=== PATIENT | male | born 1970 ===

== ENCOUNTER 2020-05-17 13:11 | Emergency (ER) | payer MEDICAID, SELFPAY ==
--- NOTE | 2020-05-17 13:23 | ED.WEAKNESS ---
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 Mode of arrival: ambulatory Limitations: no limitations History of Present Illness HPI Narrative: patient with recent chemo completed on 05/06 for mantle cell lymphoma here with overall malaise, subjective fevers/chills, body aches states he was tested on Tuesday and COVID test is negative, no known COVID + contacts MD Complaint: generalized weakness Onset (ago): day(s) (5) Duration: constant Location: generalized Migration: none Severity: moderate Relieving factors: none Exacerbating factors: none Associated symptoms: fever/chills, loss of appetite, myalgias and other (mild dry cough) Related Data Allergies Allergy/AdvReac Type Severity Reaction Status Date / Time cyclobenzaprine [Flexeril] Allergy Unknown Verified 03/22/13 00:00 No Known Allergies Allergy Unverified 05/01/20 18:23 Review of Systems Review of Systems: Constitutional : positive Fever, positive Chills, positive fatigue, positive Malaise ENT/Mouth : no sore throat, no runny nose Eyes: No Discharge, no irritation Cardiovascular : No Chest Pain, No SOB Respiratory : mild dry Cough, No Sputum Gastrointestinal : No Nausea, No Vomiting, No Diarrhea, no abdominal pain Genitourinary : No Dysuria, No Urinary Frequency Musculoskeletal : positive Myalgia Skin : No rash, no new lesions Neuro : No Headache, no numbness, overall feels weak PMFSH Past Medical History Attestation statement: The following information was validated with the patient. Medical History (Updated 05/17/20 @ 15:55 by Bonny Love DO) Appendicitis Chronic pain Kidney stone Mantle cell lymphoma Surgical History (Updated 05/17/20 @ 13:50 by Bonny Love DO) History of appendectomy Social History Social History (Updated 05/17/20 @ 13:25 by Bonny Love DO) Alcohol intake: never Smoking Status: Never smoker Use of substances other than those prescribed or required for medical reasons: No Substance Use Type: Marijuana Advance Directives: No Advance Directives Information Provided: No Physical Exam Vital Signs and I&O and Narrative: Vital Signs and I&O: Vital Signs Temp 98.3 F 05/17/20 13:44 Pulse 100 05/17/20 13:44 Resp 16 05/17/20 13:44 BP 119/76 05/17/20 13:44 Pulse Ox 99 05/17/20 13:44 Intake & Output 05/16/20 05/17/20 05/17/20 18:59 06:59 18:59 Intake Total 500 / 500 Balance 500 / 500 Weight 99.798 kg Intake: Intake, IV Amoun t 500 / 500 0.9 % Sodium C hloride 500 ml @ 500 / 500 1000 mls/hr IV .Q30M RACHELL Rx#: [id number] Body Mass Index 29.0 Appearance: Alert. Oriented X3. No acute distress. Eyes: Pupils equal, round and reactive to light. ENT: Pharynx normal. MMM Neck: Normal inspection. Neck supple. CVS: Normal heart rate and rhythm. Pulses normal. Respiratory: No respiratory distress. Breath sounds normal. Abdomen: Soft and nontender. Skin: Skin warm and dry. Normal skin color. Normal skin turgor. R PICC line site c/d/i Extremities: No lower extremity edema. No lower extremity edema. Neuro: Oriented X 3. No motor deficit. No sensory deficit. Course Course Hospital Course: lipase is elevated but has no abdominal pain n/v/d had CT scan in November pancreas was unremarkable Reevaluation(s) Reevaluation #1: ANC was 800 on 05/14 now 1500 so vast improvement he c/o fever no documented here orally 98.3 Time: 15:18 Reevaluation #2: message sent to Dr. Ruiz with labs, presentation, WBC and ANC Reevaluation #3: Dr. Ruiz aware of WBC count, ANC, lactic acidosis, negative CT chest if stable on recheck send home with katya [facility] Narrative Medical decision making narrative: patient with recent chemo now having overall malaise subjective fevers and chills not feeling well has no localizing signs of infection, just had negative COVID test, at this time will obtain labs, CT chest for pneumonia (dry cough), cultures, lactic acid, dispo per results and findings Lab Data Result diagrams: 05/17/20 14:24 05/17/20 14:24 Labs: Lab Results 05/17/20 05/17/20 05/17/20 Range/Units 14:24 14:24 14:24 WBC 2.4 L (4.8-10.8) X10*3/uL RBC 3.11 L (4.60-5.80) X10*6/uL Hgb 10.2 L (14.0-18.0) g/dl Hct 29.1 L (42-52) % MCV 93.6 (80-98) fL MCH 32.8 (27.0-33.0) pg MCHC 35.1 (31.0-36.0) g/dl RDW 13.4 (11.0-16.0) % Plt Count 78 L (160-400) X10*3/uL MPV 11.3 (9.4-12.4) fL Immature Gran % (Auto) 0.4 (0.0-0.4) % Neut % (Auto) 65.1 (45-73) % Lymph % (Auto) 15.3 L (20-40) % [place] % (Auto) 17.9 H (2-11) % Eos % (Auto) 0.9 (0-4) % Baso % (Auto) 0.4 (0-2) % Neut # (Auto) 1.5 L (2.0-8.3) X10*3/uL Lymph # (Auto) 0.4 L (1.2-4.9) X10*3/uL [place] # (Auto) 0.4 (0.1-1.2) X10*3/uL Eos # (Auto) 0.0 (0.0-0.4) X10*3/uL Baso # (Auto) 0.0 (0.0-0.2) X10*3/uL Abs Immat Gran (auto) 0.01 (0.00-0.03) X10*3/uL Absolute Nucleated RBC 0.000 (0.0-0.012) X10*3/uL Nucleated RBC % (auto) 0.0 (0.0-0.2) /100WBC Smear Tech's Comments VERIFIED Hold Blue Top SEE NOTE Sodium 135 (135-145) mmol/L Potassium 3.7 (3.3-5.1) mmol/l Chloride 98 (96-108) mmol/L Carbon Dioxide 28 (22-29) mmol/L Anion Gap 13 (12-20) BUN 14 (9-16) mg/dL Creatinine 1.70 H (0.5-1.4) mg/dL Estim Creat Clear Calc 66.7 Estimated GFR 43 Random Glucose 140 H (60-115) mg/dL Lactic Acid (0.5-2.0) mmol/L Calcium 8.4 (8.4-10.2) mg/dL Magnesium 2.0 (1.6-2.6) mg/dL Total Bilirubin 0.5 (0.0-1.0) mg/dL Direct Bilirubin 0.2 (0.0-0.5) mg/dL AST 28 (5-37) U/L ALT 33 (0-40) U/L Alkaline Phosphatase 80 (39-117) U/L Total Protein 6.2 L (6.5-8.0) g/dL Albumin 3.9 (3.5-5.0) g/dL Lipase 110 H (8-78) U/L Urine Color Urine Appearance Urine pH (5.0-8.0) Ur Specific [place] (1.005-1.025) Urine Protein (NEG-TRACE) MG/DL Urine Glucose (UA) (NEG) MG/DL Urine Ketones (NEG) MG/DL Urine Blood (NEG) Urine Nitrite (NEG) Ur Leukocyte Esterase (NEG) 05/17/20 05/17/20 Range/Units 14:24 15:19 WBC (4.8-10.8) X10*3/uL RBC (4.60-5.80) X10*6/uL Hgb (14.0-18.0) g/dl Hct (42-52) % MCV (80-98) fL MCH (27.0-33.0) pg MCHC (31.0-36.0) g/dl RDW (11.0-16.0) % Plt Count (160-400) X10*3/uL MPV (9.4-12.4) fL Immature Gran % (Auto) (0.0-0.4) % Neut % (Auto) (45-73) % Lymph % (Auto) (20-40) % [place] % (Auto) (2-11) % Eos % (Auto) (0-4) % Baso % (Auto) (0-2) % Neut # (Auto) (2.0-8.3) X10*3/uL Lymph # (Auto) (1.2-4.9) X10*3/uL [place] # (Auto) (0.1-1.2) X10*3/uL Eos # (Auto) (0.0-0.4) X10*3/uL Baso # (Auto) (0.0-0.2) X10*3/uL Abs Immat Gran (auto) (0.00-0.03) X10*3/uL Absolute Nucleated RBC (0.0-0.012) X10*3/uL Nucleated RBC % (auto) (0.0-0.2) /100WBC Smear Tech's Comments Hold Blue Top Sodium (135-145) mmol/L Potassium (3.3-5.1) mmol/l Chloride (96-108) mmol/L Carbon Dioxide (22-29) mmol/L Anion Gap (12-20) BUN (9-16) mg/dL Creatinine (0.5-1.4) mg/dL Estim Creat Clear Calc Estimated GFR Random Glucose (60-115) mg/dL Lactic Acid 2.3 H* (0.5-2.0) mmol/L Calcium (8.4-10.2) mg/dL Magnesium (1.6-2.6) mg/dL Total Bilirubin (0.0-1.0) mg/dL Direct Bilirubin (0.0-0.5) mg/dL AST (5-37) U/L ALT (0-40) U/L Alkaline Phosphatase (39-117) U/L Total Protein (6.5-8.0) g/dL Albumin (3.5-5.0) g/dL Lipase (8-78) U/L Urine Color YELLOW Urine Appearance CLEAR Urine pH 5.5 (5.0-8.0) Ur Specific [place] 1.025 (1.005-1.025) Urine Protein 2+ H (NEG-TRACE) MG/DL Urine Glucose (UA) NEG (NEG) MG/DL Urine Ketones NEG (NEG) MG/DL Urine Blood 3+ H (NEG) Urine Nitrite NEG (NEG) Ur Leukocyte Esterase NEG (NEG) Discharge Plan Discharge Clinical Impression: Acidosis, lactic, Acute viral syndrome
--- NOTE | 2020-05-17 13:34 | CT_ITS ---
EXAMINATION: CT CHEST WITHOUT CONTRAST CLINICAL INFORMATION: Cough and fever. COMPARISON: None TECHNIQUE: Multidetector volumetric CT imaging of the chest was done. Axial MIP volume rendering provided. Sagittal and coronal reformatted images were obtained. This CT examination was performed using dose optimization techniques as appropriate, variously including the following: *Automated exposure control *Adjustment of mA and/or kV according to patient size (this includes techniques or standardized protocols for targeted exams where dose is matched to indication/reason for exam; i.e. extremities or head) *Use of iterative reconstruction technique DLP: 273 mGy-cm FINDINGS: LUNGS: There is a calcified granuloma in the right upper lobe as well as in the right lower lobe in the costophrenic sulcus posteriorly. The lungs are otherwise clear with no evidence of inflammation or nodules. MEDIASTINUM: The thyroid demonstrates increased attenuation on noncontrast CT, measuring about 140 Hounsfield units. The mediastinum is otherwise normal. PLEURA: There is no pleural effusion. No pleural mass or thickening. AXILLA: No lymphadenopathy. UPPER ABDOMEN: Unremarkable. OSSEOUS STRUCTURES: Unremarkable. IMPRESSION: Unremarkable examination. A cause for the patient's cough and fevers has not been found.
[2020-05-17 13:44] VITALS: BP 119/76; PULSE 100; RESP 16; TEMP 36.8; O2SAT 99; BMI 29.0
--- NOTE | 2020-05-17 13:53 | PC.NURSE ---
seen by provider, plan for blood work and imaging. pt ambulatory to ct scan w steady gait. pt has had recent negative covid, but sts continuing increase in weakness along with general malaise over the past few weeks. afebrile. wctm.
[2020-05-17 14:36] LABS: Basophils Percent Auto 0.4 % (0-2); Eosinophils Percent Auto 0.9 % (0-4); Hematocrit 29.1 % (42-52); Hemoglobin 10.2 g/dl (14.0-18.0); Imm Gran Abs Auto 0.01 X10*3/uL (0.00-0.03); Imm Gran Pct Auto 0.4 % (0.0-0.4); Lymphocytes Absolute Auto 0.4 X10*3/uL (1.2-4.9); Lymphocytes Percent Auto 15.3 % (20-40); MANUAL DIFF FLAG SCAN; Mean Corpuscular HGB Conc 35.1 g/dl (31.0-36.0); Mean Corpuscular Hemoglobin 32.8 pg (27.0-33.0); Mean Corpuscular Volume 93.6 fL (80-98); Mean Platelet Volume 11.3 fL (9.4-12.4); Monocytes Absolute Auto 0.4 X10*3/uL (0.1-1.2); Monocytes Percent Auto 17.9 % (2-11); Neutrophils Absolute Auto 1.5 X10*3/uL (2.0-8.3); Neutrophils Percent Auto 65.1 % (45-73); Red Blood Count 3.11 X10*6/uL (4.60-5.80); Red Cell Distribution Width 13.4 % (11.0-16.0); SCAN SMEAR FLAG 1
[2020-05-17 14:45] LABS: White Blood Count 2.4 X10*3/uL (4.8-10.8)
[2020-05-17] MEDS: Acetaminophen 325 MG TABLET 650 MG PO (14:50)
[2020-05-17] MEDS: 0.9 % Sodium Chloride 500 ML 1000 ML IV (14:50)
[2020-05-17 14:59] LABS: Platelet Count 78 X10*3/uL (160-400)
[2020-05-17 15:00] LABS: Lactic Acid 2.3 mmol/L (0.5-2.0); SLIDE REVIEW VERIFIED
[2020-05-17 15:22] LABS: Alanine Aminotransferase 33 U/L (0-40); Albumin Level 3.9 g/dL (3.5-5.0); Alkaline Phosphatase 80 U/L (39-117); Anion Gap 13 (12-20); Aspartate Amino Transferase 28 U/L (5-37); Bilirubin Direct 0.2 mg/dL (0.0-0.5); Bilirubin Total 0.5 mg/dL (0.0-1.0); Blood Urea Nitrogen 14 mg/dL (9-16); Calcium 8.4 mg/dL (8.4-10.2); Carbon Dioxide 28 mmol/L (22-29); Chloride 98 mmol/L (96-108); Creatinine Clr Calc Pharmacy 66.7; Estimated Glomerular Filt Rate 43; Glucose Random 140 mg/dL (60-115); Lipase 110 U/L (8-78); Potassium 3.7 mmol/l (3.3-5.1); Sodium 135 mmol/L (135-145); Total Protein 6.2 g/dL (6.5-8.0)
[2020-05-17 15:43] LABS: Glucose Urine UA NEG (NEG); Leukocyte Esterase Urine NEG (NEG); Nitrite Urine NEG (NEG); PH 5.5 (5.0-8.0); Specific Gravity - Urine 1.025 (1.005-1.025); Urine Blood 3+ (NEG); Urine Ketones NEG (NEG); Urine Protein 2+ MG/DL (NEG-TRACE)
[2020-05-17 15:46] LABS: Appearance Urine CLEAR; Color Urine YELLOW
[2020-05-17 15:57] LABS: WBC Urine 0 /HPF (0-4)
[2020-05-17 15:58] LABS: Hyaline Casts Urine 0-2 /LPF
[2020-05-17 16:31] LABS: Reflex Lactate? Lactic Acid Added
[2020-05-17 16:45] VITALS: BP 111/73; PULSE 93; RESP 18; TEMP 37.1; O2SAT 100
--- NOTE | 2021-11-04 14:34 | MHC.HEMONCSW ---
LATE ENTRY.....PT PERMANENTLY RESIDING IN A [facility].
== END 2020-05-17 18:11 | disposition home or self-care (01) ==
PROVIDERS: Emergency Medicine; Emergency Provider Emergency Medicine; PCP Internal Medicine
DX: E87.2 Acidosis (principal); B34.9 Viral infection, unspecified; Z20.828 Contact with and (suspected) exposure to other viral communicable diseases; C83.10 Mantle cell lymphoma, unspecified site
CPT/HCPCS: 36415; 71250; 80048; 80076; 81001; 83605; 83690; 83735; 85025; 85060; 87040; 87635; 99284

== ENCOUNTER → 2020-07-09 08:48 | Outpatient (BNVA) | payer MEDICAID, SELFPAY | PROVIDERS: PCP Internal Medicine; Referring Provider Internal Medicine; Visit Provider Physician Assistant | DX: Z76.89 Persons encountering health services in other specified circumstances (principal) ==

== ENCOUNTER 2020-07-16 13:41 | Outpatient (REF) | payer MEDICAID, SELFPAY | END 2020-07-16 13:42 | disposition home or self-care (01) | LOC: HO.LAB 13:41 | PROVIDERS: Visit Provider Internal Medicine | DX: Z20.828 Contact with and (suspected) exposure to other viral communicable diseases (principal) | CPT/HCPCS: C9803; U0003 ==

== ENCOUNTER → 2020-09-05 10:20 | Outpatient (BNVA) | payer MEDICAID, SELFPAY | PROVIDERS: Visit Provider Internal Medicine Gastroenterology ==

== ENCOUNTER 2020-09-22 13:12 | Inpatient (IN) | payer MEDICAID, SELFPAY ==
--- NOTE | ~2020-09-22 | CT_ITS ---
EXAMINATION: CT HEAD WITHOUT CONTRAST CLINICAL INFORMATION: Altered mental status. History of mantle cell lymphoma. COMPARISON: None. TECHNIQUE: Contiguous helical images of the brain were obtained without IV contrast. Multiplanar reconstructions were performed. DLP: 684 mGy-cm. FINDINGS: There are no pathologic extra-axial fluid collections. The lateral and fourth ventricles are nondilated and concordant with the appearance of the sulci. There is subtle suggestion of mild narrowing to the third ventricle. Within the left frontal lobe best demonstrated on image 57/96, there is an approximately 2 cm area of decreased attenuation within the subcortical region with faint peripheral high attenuation. There is no definite adjacent sulcal effacement. Within the posterior right temporal lobe within the posterior middle cranial fossa on the right, there is an area of subcortical low-attenuation measuring approximately 11 mm. There is extensive left greater than right bilateral basal ganglial low-attenuation. On the left, there is some extension into the lazaro radiata. There is suggestion of some expansion about the basal ganglial low-attenuation. There is a small focus of high attenuation adjacent to the cortex within the posterior left parieto-occipital region best demonstrated on image 54/98. There is also a subtle focus of high attenuation within the subcortical region within the posterior right parieto-occipital area. There is an area of low-attenuation within the right cerebellar hemisphere on image 76/98 measuring approximately 2.1 cm. There is neither mass nor mass effect. There is no shift of midline structures. The paranasal sinuses and mastoid air cells are clear. There are no osseous lesions. CT/CT head/brain wo con IMPRESSION: Numerous bilateral subcortical areas of low-attenuation, particularly within the left frontal, posterior right parietal regions as well as the right cerebellar hemisphere. There is no definite mass effect related to the aforementioned areas of low-attenuation. In addition, there is extensive bilateral basal ganglial low-attenuation, left greater than right, extending into the lazaro radiata with some suggestion of possible edema about this area of low-attenuation with possible mass effect upon the third ventricle. 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 However, that any one of the aforementioned lesions could correspond to an infarction cannot be excluded. As such, recommendation is for correlation with MRI as it is possible. The aforementioned was discussed at length with Dr. Pnieda at 0050 hours. Automated exposure control (Care Dose) Adjustment of the mA and/or kv according to patient size (this includes techniques or standardized protocols for targeted exams where dose is matched to indication / reason for exam; i.e. extremities or head).
[2020-09-22 15:41] VITALS: BP 100/62; PULSE 75; RESP 18; TEMP 37.1; O2SAT 98; BMI 25.7
[2020-09-22 18:46] LABS: Basophils Percent Auto 0.4 % (0-2); Eosinophils Absolute Auto 0.2 X10*3/uL (0.0-0.4); Eosinophils Percent Auto 8.4 % (0-4); Hematocrit 31.8 % (42-52); Hemoglobin 10.8 g/dl (14.0-18.0); Imm Gran Abs Auto 0.01 X10*3/uL (0.00-0.03); Imm Gran Pct Auto 0.4 % (0.0-0.4); Lymphocytes Absolute Auto 0.8 X10*3/uL (1.2-4.9); Lymphocytes Percent Auto 35.6 % (20-40); MANUAL DIFF FLAG SCAN; Mean Corpuscular Volume 97.2 fL (80-98); Monocytes Absolute Auto 0.6 X10*3/uL (0.1-1.2); Monocytes Percent Auto 27.1 % (2-11); Neutrophils Absolute Auto 0.6 X10*3/uL (2.0-8.3); Neutrophils Percent Auto 28.1 % (45-73); Platelet Count 107 X10*3/uL (160-400); Red Blood Count 3.27 X10*6/uL (4.60-5.80); Red Cell Distribution Width 12.4 % (11.0-16.0); SCAN SMEAR FLAG 1
[2020-09-22 18:47] LABS: White Blood Count 2.3 X10*3/uL (4.8-10.8)
[2020-09-22 19:04] LABS: SLIDE REVIEW VERIFIED
[2020-09-22 19:07] LABS: Ethanol < 10 mg/dL
[2020-09-22 19:09] LABS: Anion Gap 12 (12-20); Blood Urea Nitrogen 13 mg/dL (9-16); Calcium 8.6 mg/dL (8.4-10.2); Carbon Dioxide 31 mmol/L (22-29); Chloride 102 mmol/L (96-108); Estimated Glomerular Filt Rate > 60; Glucose Random 107 mg/dL (60-115); Potassium 3.9 mmol/L (3.3-5.1); Sodium 141 mmol/L (135-145)
[2020-09-22 21:32] VITALS: BP 107/66; PULSE 86; RESP 18; TEMP 36.7; O2SAT 98
--- NOTE | 2020-09-22 21:35 | PC.NURSE ---
no change in assessment. is steady on feet. skin slightly juandice but no abd pain or distention. family states he's declining and barely talking. get confused easily. calm.
[2020-09-22 22:00] VITALS: BP 107/66; PULSE 86; RESP 18; TEMP 36.7; O2SAT 98
[2020-09-22 22:29] LABS: Alanine Aminotransferase 34 U/L (0-40); Albumin Level 4.2 g/dL (3.5-5.0); Alkaline Phosphatase 115 U/L (39-117); Aspartate Amino Transferase 31 U/L (5-37); Bilirubin Direct 0.2 mg/dL (0.0-0.5); Bilirubin Total 0.5 mg/dL (0.0-1.0); Total Protein 6.3 g/dL (6.5-8.0)
[2020-09-23] VITALS: BP 107/66; PULSE 86; RESP 18; TEMP 36.7; O2SAT 98
--- NOTE | 2020-09-23 00:13 | ED.AMS ---
HPI - Altered Mental Status General Chief Complaint: Altered Mental Status Stated Complaint: confused Time Seen by Provider: 09/22/20 23:26 Source: family Mode of arrival: wheelchair Limitations: altered mental status History of Present Illness HPI narrative: Patient is brought by friends to the emergency room. According to the friends, the patient has history stage IV mantle cell lymphoma. For the last 2 weeks, the patient has gradually been declining mentally. They have noticed that the patient is slower to answer, for the last week, the patient seemed very confused and has remained confused since then. The patient's friend states that they believed that he had an appointment today with hematology/oncology but they do not know if the appointment was here or in [facility], and they were told to come to the emergency room. The patient is unable to give any history, patient answers answer some yes or no questions, seems very confused, states he has been having a sore throat. The family friends report that the patient has been complaining of a sore throat for the last 4 weeks or longer. Patient states that he lives with his sister. The family's friend states that the patient's sister told the patient that he needs to find another place to live. They were concerned that the patient's sister is not taking good care of him. At this time, they are not sure who the healthcare proxy is, they believe it is the another sister that the patient has, but he does not live with her. Related Data Home Medications Medication Instructions Recorded Confirmed acyclovir 400 mg PO BID 05/20/20 07/09/20 ondansetron HCl 8 mg tablet 8 mg PO Q8H PRN 09/05/20 Allergies Allergy/AdvReac Type Severity Reaction Status Date / Time cyclobenzaprine [Flexeril] Allergy Unknown Palpitation Verified 09/22/20 15:41 s Review of Systems Review of Systems: Yes unobtainable due to endotracheal tube PMFSH Past Medical History Medical History Appendicitis Chronic pain Depression H/O: RCT (rotator cuff tear) Kidney stone Mantle cell lymphoma Rectal bleeding Surgical History History of appendectomy Family History Family History Mother COPD (chronic obstructive pulmonary disease) Sister Colon cancer Social History Social History Alcohol intake: unknown Smoking Status: Unknown if ever smoked Use of substances other than those prescribed or required for medical reasons: Unknown Substance Use Type: Marijuana Advance Directives: No Advance Directives Information Provided: Yes Current occupational status: unemployed Physical Exam Vital Signs: Vital Signs: Last Vital Signs Temp 98.1 F 09/23/20 00:00 Pulse 86 09/23/20 00:00 Resp 18 09/23/20 00:00 BP 107/66 09/23/20 00:00 Pulse Ox 98 09/23/20 00:00 Body Mass Index 25.7 Appearance: Alert. Oriented X1 to name No acute distress. Patient seems confused Eyes: Pupils equal, round and reactive to light. ENT: Pharynx normal. Neck: Normal inspection. Neck supple. Bilateral mandibular lymphadenopathy, No crepitus CVS: Normal heart rate and rhythm. Pulses normal. Normal S1 and S2 Respiratory: No respiratory distress. Breath sounds normal. No Wheezing. No rales Abdomen: Soft and nontender. No rigidity. No distention. good BS x4 Skin: Skin warm and dry. Normal skin color. Normal skin turgor. Extremities: No lower extremity edema. Neuro: Oriented X1. No motor deficit. Cranial nerves 2-12 grossly intact. Course Course Course Narrative: I discussed the CT findings with our radiologist Dr. Siegel. The family friend left a phone number of a sister, Jia Lorenzo ([phone]). I tried calling her to give her an update and trying to find out the patient's code status is, and further discussion on treatment. With no one answered the phone. Patient's mental status has remained constant for the last week, no acute changes per family friends. Patient will need an MRI in the morning. Seems that patient has INFORMATION TECHNOLOGY ARCHITECT lymphoma. There is possibility that he may have mass effect, we will go ahead and give him Decadron. I was able to get in touch with patient's sister Azra, confirms that the healthcare proxy of the patient is her , but is currently at work. At this time, she does not know the patient is resuscitation status, at this time I discussed with her that we will keep him as a full code. I discussed the CT scan with her. She was not aware the patient had lymphoma. She knew that the patient is being treated for something in [place] (per patient's friends and Dr. Ruiz's records in [facility]). I discussed the patient and CT scan findings with our hospitalist Dr. Lee, patient will need an MRI 1st thing in the morning. MDM - Altered Mental Status Lab Data Result diagrams: 09/22/20 18:18 09/22/20 18:18 Labs: Lab Results 09/22/20 09/22/20 09/22/20 Range/Units 18:18 18:18 18:18 WBC 2.3 L (4.8-10.8) X10*3/uL RBC 3.27 L (4.60-5.80) X10*6/uL Hgb 10.8 L (14.0-18.0) g/dl Hct 31.8 L (42-52) % MCV 97.2 (80-98) fL MCH 33.0 (27.0-33.0) pg MCHC 34.0 (31.0-36.0) g/dl RDW 12.4 (11.0-16.0) % Plt Count 107 L (160-400) X10*3/uL MPV 10.0 (9.4-12.4) fL Immature Gran % (Auto) 0.4 (0.0-0.4) % Neut % (Auto) 28.1 L (45-73) % Lymph % (Auto) 35.6 (20-40) % [place] % (Auto) 27.1 H (2-11) % Eos % (Auto) 8.4 H (0-4) % Baso % (Auto) 0.4 (0-2) % Lymph # (Auto) 0.8 L (1.2-4.9) X10*3/uL [place] # (Auto) 0.6 (0.1-1.2) X10*3/uL Eos # (Auto) 0.2 (0.0-0.4) X10*3/uL Baso # (Auto) 0.0 (0.0-0.2) X10*3/uL Abs Immat Gran (auto) 0.01 (0.00-0.03) X10*3/uL Absolute Neuts (auto) 0.6 L (2.0-8.3) X10*3/uL Absolute Nucleated RBC 0.000 (0.0-0.012) X10*3/uL Nucleated RBC % (auto) 0.0 (0.0-0.2) /100WBC Smear Tech's Comments VERIFIED Hold Blue Top SEE NOTE Sodium 141 (135-145) mmol/L Potassium 3.9 (3.3-5.1) mmol/L Chloride 102 (96-108) mmol/L Carbon Dioxide 31 H (22-29) mmol/L Anion Gap 12 (12-20) BUN 13 (9-16) mg/dL Creatinine 1.22 (0.5-1.4) mg/dL Estim Creat Clear Calc 87.0 Estimated GFR > 60 Random Glucose 107 (60-115) mg/dL Calcium 8.6 (8.4-10.2) mg/dL Total Bilirubin 0.5 (0.0-1.0) mg/dL Direct Bilirubin 0.2 (0.0-0.5) mg/dL AST 31 (5-37) U/L ALT 34 (0-40) U/L Alkaline Phosphatase 115 D (39-117) U/L Total Protein 6.3 L (6.5-8.0) g/dL Albumin 4.2 (3.5-5.0) g/dL Urine Color Urine Appearance Urine pH (5.0-8.0) Ur Specific [place] (1.005-1.025) Urine Protein (NEG-TRACE) MG/DL Urine Glucose (UA) (NEG) MG/DL Urine Ketones (NEG) MG/DL Urine Blood (NEG) Urine Nitrite (NEG) Ur Leukocyte Esterase (NEG) Urine RBC (0) /HPF Urine WBC (0-4) /HPF Ur Squamous Epith Cells /LPF Ur Renal Epithelial Cell /LPF Urine Bacteria /LPF Granular Casts /LPF Urine Mucus /LPF Urine Opiates Screen (Not Detect) Ur Barbiturates Screen (Not Detect) Ur Phencyclidine Scrn (Not Detect) Ur Amphetamines Screen (Not Detect) U Benzodiazepines Scrn (Not Detect) Urine Cocaine Screen (Not Detect) U Marijuana (THC) Screen (Not Detect) Ethyl Alcohol mg/dL COVID-19 (LAURY) (Negative) COVID-19 Clin Com 09/22/20 09/23/20 09/23/20 Range/Units 18:18 00:23 00:23 WBC (4.8-10.8) X10*3/uL RBC (4.60-5.80) X10*6/uL Hgb (14.0-18.0) g/dl Hct (42-52) % MCV (80-98) fL MCH (27.0-33.0) pg MCHC (31.0-36.0) g/dl RDW (11.0-16.0) % Plt Count (160-400) X10*3/uL MPV (9.4-12.4) fL Immature Gran % (Auto) (0.0-0.4) % Neut % (Auto) (45-73) % Lymph % (Auto) (20-40) % [place] % (Auto) (2-11) % Eos % (Auto) (0-4) % Baso % (Auto) (0-2) % Lymph # (Auto) (1.2-4.9) X10*3/uL [place] # (Auto) (0.1-1.2) X10*3/uL Eos # (Auto) (0.0-0.4) X10*3/uL Baso # (Auto) (0.0-0.2) X10*3/uL Abs Immat Gran (auto) (0.00-0.03) X10*3/uL Absolute Neuts (auto) (2.0-8.3) X10*3/uL Absolute Nucleated RBC (0.0-0.012) X10*3/uL Nucleated RBC % (auto) (0.0-0.2) /100WBC Smear Tech's Comments Hold Blue Top Sodium (135-145) mmol/L Potassium (3.3-5.1) mmol/L Chloride (96-108) mmol/L Carbon Dioxide (22-29) mmol/L Anion Gap (12-20) BUN (9-16) mg/dL Creatinine (0.5-1.4) mg/dL Estim Creat Clear Calc Estimated GFR Random Glucose (60-115) mg/dL Calcium (8.4-10.2) mg/dL Total Bilirubin (0.0-1.0) mg/dL Direct Bilirubin (0.0-0.5) mg/dL AST (5-37) U/L ALT (0-40) U/L Alkaline Phosphatase (39-117) U/L Total Protein (6.5-8.0) g/dL Albumin (3.5-5.0) g/dL Urine Color SALAS Urine Appearance CLEAR Urine pH 5.5 (5.0-8.0) Ur Specific [place] >= 1.030 H (1.005-1.025) Urine Protein 2+ H (NEG-TRACE) MG/DL Urine Glucose (UA) NEG (NEG) MG/DL Urine Ketones NEG (NEG) MG/DL Urine Blood TRACE (NEG) Urine Nitrite NEG (NEG) Ur Leukocyte Esterase NEG (NEG) Urine RBC 0-2 (0) /HPF Urine WBC 0-2 (0-4) /HPF Ur Squamous Epith Cells TRACE /LPF Ur Renal Epithelial Cell TRACE /LPF Urine Bacteria TRACE /LPF Granular Casts 0-2 /LPF Urine Mucus 3+ /LPF Urine Opiates Screen Not Detected (Not Detect) Ur Barbiturates Screen Not Detected (Not Detect) Ur Phencyclidine Scrn Not Detected (Not Detect) Ur Amphetamines Screen Not Detected (Not Detect) U Benzodiazepines Scrn Not Detected (Not Detect) Urine Cocaine Screen Not Detected (Not Detect) U Marijuana (THC) Screen Not Detected (Not Detect) Ethyl Alcohol < 10 mg/dL COVID-19 (LAURY) (Negative) COVID-19 Clin Com 09/23/20 Range/Units 00:24 WBC (4.8-10.8) X10*3/uL RBC (4.60-5.80) X10*6/uL Hgb (14.0-18.0) g/dl Hct (42-52) % MCV (80-98) fL MCH (27.0-33.0) pg MCHC (31.0-36.0) g/dl RDW (11.0-16.0) % Plt Count (160-400) X10*3/uL MPV (9.4-12.4) fL Immature Gran % (Auto) (0.0-0.4) % Neut % (Auto) (45-73) % Lymph % (Auto) (20-40) % [place] % (Auto) (2-11) % Eos % (Auto) (0-4) % Baso % (Auto) (0-2) % Lymph # (Auto) (1.2-4.9) X10*3/uL [place] # (Auto) (0.1-1.2) X10*3/uL Eos # (Auto) (0.0-0.4) X10*3/uL Baso # (Auto) (0.0-0.2) X10*3/uL Abs Immat Gran (auto) (0.00-0.03) X10*3/uL Absolute Neuts (auto) (2.0-8.3) X10*3/uL Absolute Nucleated RBC (0.0-0.012) X10*3/uL Nucleated RBC % (auto) (0.0-0.2) /100WBC Smear Tech's Comments Hold Blue Top Sodium (135-145) mmol/L Potassium (3.3-5.1) mmol/L Chloride (96-108) mmol/L Carbon Dioxide (22-29) mmol/L Anion Gap (12-20) BUN (9-16) mg/dL Creatinine (0.5-1.4) mg/dL Estim Creat Clear Calc Estimated GFR Random Glucose (60-115) mg/dL Calcium (8.4-10.2) mg/dL Total Bilirubin (0.0-1.0) mg/dL Direct Bilirubin (0.0-0.5) mg/dL AST (5-37) U/L ALT (0-40) U/L Alkaline Phosphatase (39-117) U/L Total Protein (6.5-8.0) g/dL Albumin (3.5-5.0) g/dL Urine Color Urine Appearance Urine pH (5.0-8.0) Ur Specific [place] (1.005-1.025) Urine Protein (NEG-TRACE) MG/DL Urine Glucose (UA) (NEG) MG/DL Urine Ketones (NEG) MG/DL Urine Blood (NEG) Urine Nitrite (NEG) Ur Leukocyte Esterase (NEG) Urine RBC (0) /HPF Urine WBC (0-4) /HPF Ur Squamous Epith Cells /LPF Ur Renal Epithelial Cell /LPF Urine Bacteria /LPF Granular Casts /LPF Urine Mucus /LPF Urine Opiates Screen (Not Detect) Ur Barbiturates Screen (Not Detect) Ur Phencyclidine Scrn (Not Detect) Ur Amphetamines Screen (Not Detect) U Benzodiazepines Scrn (Not Detect) Urine Cocaine Screen (Not Detect) U Marijuana (THC) Screen (Not Detect) Ethyl Alcohol mg/dL COVID-19 (LAURY) Negative (Negative) COVID-19 Clin Com See Note Imaging Data CT scan - head: Radiologist's impression: There are no pathologic extra-axial fluid collections. The lateral and fourth ventricles are nondilated and concordant with the appearance of the sulci. There is subtle suggestion of mild narrowing to the third ventricle. Within the left frontal lobe best demonstrated on image 57/96, there is an approximately 2 cm area of decreased attenuation within the subcortical region with faint peripheral high attenuation. There is no definite adjacent sulcal effacement. Within the posterior right temporal lobe within the posterior middle cranial fossa on the right, there is an area of subcortical low-attenuation measuring approximately 11 mm. There is extensive left greater than right bilateral basal ganglial low-attenuation. On the left, there is some extension into the lazaro radiata. There is suggestion of some expansion about the basal ganglial low-attenuation. There is a small focus of high attenuation adjacent to the cortex within the posterior left parieto-occipital region best demonstrated on image 54/98. There is also a subtle focus of high attenuation within the subcortical region within the posterior right parieto-occipital area. There is an area of low-attenuation within the right cerebellar hemisphere on image 76/98 measuring approximately 2.1 cm. There is neither mass nor mass effect. There is no shift of midline structures. The paranasal sinuses and mastoid air cells are clear. There are no osseous lesions. CT/CT head/brain wo con IMPRESSION: Numerous bilateral subcortical areas of low-attenuation, particularly within the left frontal, posterior right parietal regions as well as the right cerebellar hemisphere. There is no definite mass effect related to the aforementioned areas of low-attenuation. In addition, there is extensive bilateral basal ganglial low-attenuation, left greater than right, extending into the lazaro radiata with some suggestion of possible edema about this area of low-attenuation with possible mass effect upon the third ventricle. Given the history of lymphoma, the appearance is most likely related to manifestations of INFORMATION TECHNOLOGY ARCHITECT lymphoma. However, that any one of the aforementioned lesions could correspond to an infarction cannot be excluded. As such, recommendation is for correlation with MRI as it is possible. Discharge Plan Discharge Clinical Impression: INFORMATION TECHNOLOGY ARCHITECT lymphoma Patient Disposition: Admitted As Inpatient Prescriptions: No Action acyclovir 400 mg Tablet 400 mg PO BID RF: 0
[2020-09-23 00:31] LABS: Glucose Urine UA NEG (NEG); Leukocyte Esterase Urine NEG (NEG); Nitrite Urine NEG (NEG); PH 5.5 (5.0-8.0); Specific Gravity - Urine >= 1.030 (1.005-1.025); Urine Blood TRACE (NEG); Urine Ketones NEG (NEG); Urine Protein 2+ MG/DL (NEG-TRACE)
[2020-09-23 00:32] LABS: Appearance Urine CLEAR; Color Urine AMBER
[2020-09-23 00:39] LABS: Bacteria Urine TRACE /LPF; Granular Casts Urine 0-2 /LPF; Mucus Urine 3+ /LPF; RBC Urine 0-2 /HPF (0); Renal Epithelial Cells Urine TRACE /LPF; Squamous Epithelial Cell Urine TRACE /LPF; WBC Urine 0-2 /HPF (0-4)
[2020-09-23 00:44] LABS: COVID-19 Test Negative (Negative)
[2020-09-23 00:53] LABS: Amphetamine Screen Urine Not Detected (Not Detect); Barbiturates, Urine Not Detected (Not Detect); Benzodiazepines Screen Urine Not Detected (Not Detect); Cannabinoid Screen Urine Not Detected (Not Detect); Cocaine Screen Urine Not Detected (Not Detect); Opiate Screen Urine Not Detected (Not Detect); Phencyclidine Screen Urine Not Detected (Not Detect)
[2020-09-23 01:38] VITALS: BP 115/47; PULSE 90; RESP 16; O2SAT 98
--- NOTE | 2020-09-23 01:46 | PC.NURSE ---
Patient is totally unable to communicate. When he speaks it is not able to be deciphered. Attempts made to contact patient's sister and it goes directly to voicemail.
[2020-09-23] MEDS: Heparin Sodium,Porcine 5,000 UNIT/ML VIAL 5000 UNIT SUBCUT (01:52)
--- NOTE | 2020-09-23 05:55 | P.HPHOSP_ITS ---
History of Present Illness Date of Service: 09/23/20 Chief Complaint: confusion This is a 49-year-old male with past medical history of mantle cell lymphoma, depression, who presents to the hospital brought in by his friends for progressive confusion. Patient is completely confused, oriented to self but not to place or time. He is almost incompressible to the accounting systems analyst and therefore history is mostly obtained from ED physician who also obtain the history from patient's friends. According to the friends patient was recently kicked out of his home who he shares with his sister and was living with them for the past week and have but he became progressively confused over the past week. On therefore they brought him an. Patient himself denies any pain, any confusion, but otherwise cannot really give any history and does not report any symptoms. On arrival to the ED hemodynamically stable with no significant abnormal vitals, labs are significant for a hemoglobin of 10.8, WBC count of 2.3, platelet count of 107, but otherwise labs are unremarkable. His UDS is negative. Head CT done shows numerous bilateral subcortical areas of low attenuation, particularly within the left frontal posterior right parietal region as well as the right cerebral hemisphere. There is no definite mass effect related to the aforementioned areas of low-attenuation, there is also extensive bilateral basal ganglia low attenuation, was some suggestion of possible edema about this area, this is suggestive of MANAGER EMS lymphoma although and infarction cannot be excluded per report. Patient was given 10 mg of Decadron in the ED and will be admitted for further management I was not able to obtain past medical history in from patient therefore is obtained from EMR Past medical history: Mantle cell lymphoma, depression Past surgical history: Significant for rotator cuff tear, appendectomy Family history: COPD, in mother, sister had colon cancer Social history: No history of tobacco alcohol or illicit drugs Review of Systems Review of Systems: Yes all other systems are reviewed and are negative [facility] Medical History Appendicitis Chronic pain Depression H/O: RCT (rotator cuff tear) Kidney stone Mantle cell lymphoma Rectal bleeding Family History Mother COPD (chronic obstructive pulmonary disease) Sister Colon cancer Surgical History History of appendectomy Social History Alcohol intake: unknown Smoking Status: Unknown if ever smoked Use of substances other than those prescribed or required for medical reasons: Unknown Substance Use Type: Marijuana Advance Directives: No Advance Directives Information Provided: Yes Current occupational status: unemployed Meds Allergies Allergy/AdvReac Type Severity Reaction Status Date / Time cyclobenzaprine [Flexeril] Allergy Unknown Palpitation Verified 09/22/20 15:41 s Home Medications Medication Instructions Recorded Confirmed Type acyclovir 400 mg PO BID 05/20/20 07/09/20 History ondansetron HCl 8 mg tablet 8 mg PO Q8H PRN 09/05/20 History Physical Exam Vital Signs and Narrative: Vital Signs: Last Vital Signs Temp 98.1 F 09/23/20 00:00 Pulse 90 09/23/20 01:38 Resp 16 09/23/20 01:38 BP 115/47 L 09/23/20 01:38 Pulse Ox 98 09/23/20 01:38 Body Mass Index 25.7 Const: Other: Appears confused and slightly frightened, speech is incomprehensible to the accounting systems analyst General: cooperative and no acute distress Eyes: General: appearance normal, both eyes and all related structures Resp: Effort & Inspection: normal respiratory effort and able to speak in complete sentences Cardio: Rate: regular rate Rhythm: regular rhythm GI: Palpation (GI): Soft to palpation Auscultation: normal bowel sounds Skin: General skin exam: no rashes or lesions noted Neuro: Other: Strength is intact 5/5, cranial nerves intact, speech is incomprehensible to the accounting systems analyst Cognition (Neuro): normal cognition Extrem: General: Yes normal to inspection and Yes no pedal edema Results Labs CBC and Chem 7: 09/22/20 18:18 09/22/20 18:18 Labs: Laboratory Results - last 24 hr 09/22/20 09/22/20 09/22/20 18:18 18:18 18:18 MCV 97.2 MCH 33.0 MCHC 34.0 RDW 12.4 Plt Count 107 L MPV 10.0 Immature Gran % (Auto) 0.4 Neut % (Auto) 28.1 L Lymph % (Auto) 35.6 [place] % (Auto) 27.1 H Eos % (Auto) 8.4 H Baso % (Auto) 0.4 Lymph # (Auto) 0.8 L [place] # (Auto) 0.6 Eos # (Auto) 0.2 Baso # (Auto) 0.0 Abs Immat Gran (auto) 0.01 Absolute Neuts (auto) 0.6 L Absolute Nucleated RBC 0.000 Nucleated RBC % (auto) 0.0 Smear Tech's Comments VERIFIED Hold Blue Top SEE NOTE Anion Gap 12 Estim Creat Clear Calc 87.0 Estimated GFR > 60 Random Glucose 107 Calcium 8.6 Total Bilirubin 0.5 Direct Bilirubin 0.2 AST 31 ALT 34 Alkaline Phosphatase 115 D Total Protein 6.3 L Albumin 4.2 Urine Color Urine Appearance Urine pH Ur Specific [place] Urine Protein Urine Glucose (UA) Urine Ketones Urine Blood Urine Nitrite Ur Leukocyte Esterase Urine RBC Urine WBC Ur Squamous Epith Cells Ur Renal Epithelial Cell Urine Bacteria Granular Casts Urine Mucus Urine Opiates Screen Ur Barbiturates Screen Ur Phencyclidine Scrn Ur Amphetamines Screen U Benzodiazepines Scrn Urine Cocaine Screen U Marijuana (THC) Screen Ethyl Alcohol COVID-19 (LAURY) COVID-19 [employer] 09/22/20 09/23/20 09/23/20 18:18 00:23 00:23 MCV MCH MCHC RDW Plt Count MPV Immature Gran % (Auto) Neut % (Auto) Lymph % (Auto) [place] % (Auto) Eos % (Auto) Baso % (Auto) Lymph # (Auto) [place] # (Auto) Eos # (Auto) Baso # (Auto) Abs Immat Gran (auto) Absolute Neuts (auto) Absolute Nucleated RBC Nucleated RBC % (auto) Smear Tech's Comments Hold Blue Top Anion Gap Estim Creat Clear Calc Estimated GFR Random Glucose Calcium Total Bilirubin Direct Bilirubin AST ALT Alkaline Phosphatase Total Protein Albumin Urine Color SALAS Urine Appearance CLEAR Urine pH 5.5 Ur Specific [place] >= 1.030 H Urine Protein 2+ H Urine Glucose (UA) NEG Urine Ketones NEG Urine Blood TRACE Urine Nitrite NEG Ur Leukocyte Esterase NEG Urine RBC 0-2 Urine WBC 0-2 Ur Squamous Epith Cells TRACE Ur Renal Epithelial Cell TRACE Urine Bacteria TRACE Granular Casts 0-2 Urine Mucus 3+ Urine Opiates Screen Not Detected Ur Barbiturates Screen Not Detected Ur Phencyclidine Scrn Not Detected Ur Amphetamines Screen Not Detected U Benzodiazepines Scrn Not Detected Urine Cocaine Screen Not Detected U Marijuana (THC) Screen Not Detected Ethyl Alcohol < 10 COVID-19 (LAURY) COVID-19 Clin Com 09/23/20 00:24 MCV MCH MCHC RDW Plt Count MPV Immature Gran % (Auto) Neut % (Auto) Lymph % (Auto) [place] % (Auto) Eos % (Auto) Baso % (Auto) Lymph # (Auto) [place] # (Auto) Eos # (Auto) Baso # (Auto) Abs Immat Gran (auto) Absolute Neuts (auto) Absolute Nucleated RBC Nucleated RBC % (auto) Smear Tech's Comments Hold Blue Top Anion Gap Estim Creat Clear Calc Estimated GFR Random Glucose Calcium Total Bilirubin Direct Bilirubin AST ALT Alkaline Phosphatase Total Protein Albumin Urine Color Urine Appearance Urine pH Ur Specific [place] Urine Protein Urine Glucose (UA) Urine Ketones Urine Blood Urine Nitrite Ur Leukocyte Esterase Urine RBC Urine WBC Ur Squamous Epith Cells Ur Renal Epithelial Cell Urine Bacteria Granular Casts Urine Mucus Urine Opiates Screen Ur Barbiturates Screen Ur Phencyclidine Scrn Ur Amphetamines Screen U Benzodiazepines Scrn Urine Cocaine Screen U Marijuana (THC) Screen Ethyl Alcohol COVID-19 (LAURY) Negative COVID-19 Clin Com See Note Imaging Radiologist's Impressions: Impressions Head CT 09/23/20 00:00 IMPRESSION: Numerous bilateral subcortical areas of low-attenuation, particularly within the left frontal, posterior right parietal regions as well as the right cerebellar hemisphere. There is no definite mass effect related to the aforementioned areas of low-attenuation. In addition, there is extensive bilateral basal ganglial low-attenuation, left greater than right, extending into the lazaro radiata with some suggestion of possible edema about this area of low-attenuation with possible mass effect upon the third ventricle. Given the history of lymphoma, the appearance is most likely related to manifestations of MANAGER EMS lymphoma. However, that any one of the aforementioned lesions could correspond to an infarction cannot be excluded. As such, recommendation is for correlation with MRI as it is possible. The aforementioned was discussed at length with Dr. Pineda at 0050 hours. Automated exposure control (Care Dose) Adjustment of the mA and/or kv according to patient size (this includes techniques or standardized protocols for targeted exams where dose is matched to indication / reason for exam; i.e. extremities or head). Assessment and Plan (1) MANAGER EMS lymphoma: Status: Acute (2) Encephalopathy: Status: Acute This is a 49-year-old male with history of mantle cell lymphoma presents to the hospital with progressive confusion with CT head showing possible MANAGER EMS lymphoma # encephalopathy - possibly secondary to MANAGER EMS lymphoma versus subacute infarct - CT of the head detailed as above - patient has no neurological deficits Plan: - received 10 mg of Decadron in the ED, will continue with 6 mg daily - consult Hematology-Oncology - MRI in the morning # MANAGER EMS lymphoma - likely given his history of mantle cell lymphoma - will consult Hematology-Oncology for further recommendations/management DVT prophylaxis: Heparin subQ
[2020-09-23 07:59] VITALS: BP 102/67; PULSE 73; O2SAT 98
--- NOTE | 2020-09-23 08:03 | PC.NURSE ---
REPORT FROM [facility]. PT BEING ADMITTED FOR INCREASING CONFUSION. DECLINED BREAKFAST. VITALS UPDATED
--- NOTE | 2020-09-23 09:34 | PC.NURSE ---
PER DR POTTS, PLAN IS TO TRANSFER PT TO [facility] HE IS FOLLOWED THERE FOR HIS LYMPHOMA. MEDICATED WITH 0900 MEDS. VITALS UPDATED
[2020-09-23 09:35] VITALS: BP 104/67; PULSE 72
[2020-09-23] MEDS: 0.9 % Sodium Chloride Flush 3 ML SYRINGE IVFLUSH (09:37)
[2020-09-23] MEDS: dexAMETHasone sod phosphate 4 MG/ML VIAL 6 MG IVPUSH (09:38)
--- NOTE | 2020-09-23 10:45 | PC.NURSE ---
10:38AM CALL RECEIVED FROM [facility] PT PLACEMENT LINE WITH REQUEST FOR FAX OF FACE SHEET TO [phone] MISTI TILLEY ROOM ASSIGNMENT PENDING, WILL CALL WHEN AVAILABLE
--- NOTE | 2020-09-23 12:03 | P.DS_ITS ---
DS: Providers Provider Date of Service: 09/23/20 Date of admission: 09/23/20 01:38 Primary care physician: Nenita Anne MD Consults: 09/23/20 01:38 Consult to Hematology / Oncology Routine Consulting Provider: Alyssa Ruiz Reason for consultation: QUALITY FACILITATOR lymphoma Has provider been notified: No DS: Diagnosis Discharge Diagnosis (1) QUALITY FACILITATOR lymphoma: Status: Acute (2) Encephalopathy: Status: Acute DS: Medications Discharge Medications Home Medications: Home Medications Medication Instructions Recorded Confirmed acyclovir 400 mg PO BID 05/20/20 09/23/20 loratadine 10 mg PO DAILY PRN 09/23/20 09/23/20 losartan 50 mg PO DAILY 09/23/20 09/23/20 melatonin 6 mg PO BEDTIME 09/23/20 09/23/20 DS: Summary Hospital Course Hospital Course: HPI 49-year-old male with past medical history of mantle cell lymphoma, depression, who presents to the hospital brought in by his friends for progressive confusion. Patient is completely confused, oriented to self but not to place or time. He is almost incompressible to the auto body repair teacher and therefore history is mostly obtained from ED physician who also obtain the history from patient's friends. According to the friends patient was recently kicked out of his home who he shares with his sister and was living with them for the past week and have but he became progressively confused over the past week. On therefore they brought him an. Patient himself denies any pain, any confusion, but otherwise cannot really give any history and does not report any symptoms. On arrival to the ED hemodynamically stable with no significant abnormal vitals, labs are significant for a hemoglobin of 10.8, WBC count of 2.3, platelet count of 107, but otherwise labs are unremarkable. His UDS is negative. Head CT done shows numerous bilateral subcortical areas of low attenuation, particularly within the left frontal posterior right parietal region as well as the right cerebral hemisphere. There is no definite mass effect related to the aforementioned areas of low-attenuation, there is also extensive bilateral basal ganglia low attenuation, was some suggestion of possible edema about this area, this is suggestive of QUALITY FACILITATOR lymphoma although and infarction cannot be excluded per report. Patient was given 10 mg of Decadron in the ED and will be admitted for further management Hospital course 49-year-old male admitted with worsening confusion encephalopathy secondary to worsening lymphoma, CT head on admission shows numerous bilateral subcortical areas of low attenuation, patient remains confused, oncology was consulted, recommended transferring patient to [facility] for further management of mantle cell lymphoma given worsening encephalopathy, patient is being followed by Dr. Jimenez Oncology at [facility], patient was accepted at [facility], patient was transferred to [facility] for further management of mantle cell lymphoma and encephalopathy Time Spent with Patient Time attestation: Total time spent providing and/or coordinating discharge services: Discharge coordination time: Greater than 30 minutes Physical Exam Vital Signs: Vital Signs: Last Vital Signs Temp 98.1 F 09/23/20 00:00 Pulse 72 09/23/20 09:35 Resp 16 09/23/20 01:38 BP 104/67 09/23/20 09:35 Pulse Ox 98 09/23/20 07:59 Body Mass Index 25.7 DS: Data Data Completed and Pending Labs on day of discharge: Laboratory Tests 09/22/20 09/22/20 09/22/20 18:18 18:18 18:18 WBC 2.3 L RBC 3.27 L Hgb 10.8 L Hct 31.8 L MCV 97.2 MCH 33.0 MCHC 34.0 RDW 12.4 Plt Count 107 L MPV 10.0 Immature Gran % (Auto) 0.4 Neut % (Auto) 28.1 L Lymph % (Auto) 35.6 [place] % (Auto) 27.1 H Eos % (Auto) 8.4 H Baso % (Auto) 0.4 Lymph # (Auto) 0.8 L [place] # (Auto) 0.6 Eos # (Auto) 0.2 Baso # (Auto) 0.0 Abs Immat Gran (auto) 0.01 Absolute Neuts (auto) 0.6 L Absolute Nucleated RBC 0.000 Nucleated RBC % (auto) 0.0 Smear Tech's Comments VERIFIED Hold Blue Top SEE NOTE Sodium 141 Potassium 3.9 Chloride 102 Carbon Dioxide 31 H Anion Gap 12 BUN 13 Creatinine 1.22 Estim Creat Clear Calc 87.0 Estimated GFR > 60 Random Glucose 107 Calcium 8.6 Total Bilirubin 0.5 Direct Bilirubin 0.2 AST 31 ALT 34 Alkaline Phosphatase 115 D Total Protein 6.3 L Albumin 4.2 Urine Color Urine Appearance Urine pH Ur Specific [place] Urine Protein Urine Glucose (UA) Urine Ketones Urine Blood Urine Nitrite Ur Leukocyte Esterase Urine RBC Urine WBC Ur Squamous Epith Cells Ur Renal Epithelial Cell Urine Bacteria Granular Casts Urine Mucus Urine Opiates Screen Ur Barbiturates Screen Ur Phencyclidine Scrn Ur Amphetamines Screen U Benzodiazepines Scrn Urine Cocaine Screen U Marijuana (THC) Screen Ethyl Alcohol COVID-19 (LAURY) COVID-19 nodila 09/22/20 09/23/20 09/23/20 18:18 00:23 00:23 WBC RBC Hgb Hct MCV MCH MCHC RDW Plt Count MPV Immature Gran % (Auto) Neut % (Auto) Lymph % (Auto) [place] % (Auto) Eos % (Auto) Baso % (Auto) Lymph # (Auto) [place] # (Auto) Eos # (Auto) Baso # (Auto) Abs Immat Gran (auto) Absolute Neuts (auto) Absolute Nucleated RBC Nucleated RBC % (auto) Smear Tech's Comments Hold Blue Top Sodium Potassium Chloride Carbon Dioxide Anion Gap BUN Creatinine Estim Creat Clear Calc Estimated GFR Random Glucose Calcium Total Bilirubin Direct Bilirubin AST ALT Alkaline Phosphatase Total Protein Albumin Urine Color SALAS Urine Appearance CLEAR Urine pH 5.5 Ur Specific [place] >= 1.030 H Urine Protein 2+ H Urine Glucose (UA) NEG Urine Ketones NEG Urine Blood TRACE Urine Nitrite NEG Ur Leukocyte Esterase NEG Urine RBC 0-2 Urine WBC 0-2 Ur Squamous Epith Cells TRACE Ur Renal Epithelial Cell TRACE Urine Bacteria TRACE Granular Casts 0-2 Urine Mucus 3+ Urine Opiates Screen Not Detected Ur Barbiturates Screen Not Detected Ur Phencyclidine Scrn Not Detected Ur Amphetamines Screen Not Detected U Benzodiazepines Scrn Not Detected Urine Cocaine Screen Not Detected U Marijuana (THC) Screen Not Detected Ethyl Alcohol < 10 COVID-19 (LAURY) COVID-19 nodila 09/23/20 00:24 WBC RBC Hgb Hct MCV MCH MCHC RDW Plt Count MPV Immature Gran % (Auto) Neut % (Auto) Lymph % (Auto) [place] % (Auto) Eos % (Auto) Baso % (Auto) Lymph # (Auto) [place] # (Auto) Eos # (Auto) Baso # (Auto) Abs Immat Gran (auto) Absolute Neuts (auto) Absolute Nucleated RBC Nucleated RBC % (auto) Smear Tech's Comments Hold Blue Top Sodium Potassium Chloride Carbon Dioxide Anion Gap BUN Creatinine Estim Creat Clear Calc Estimated GFR Random Glucose Calcium Total Bilirubin Direct Bilirubin AST ALT Alkaline Phosphatase Total Protein Albumin Urine Color Urine Appearance Urine pH Ur Specific [place] Urine Protein Urine Glucose (UA) Urine Ketones Urine Blood Urine Nitrite Ur Leukocyte Esterase Urine RBC Urine WBC Ur Squamous Epith Cells Ur Renal Epithelial Cell Urine Bacteria Granular Casts Urine Mucus Urine Opiates Screen Ur Barbiturates Screen Ur Phencyclidine Scrn Ur Amphetamines Screen U Benzodiazepines Scrn Urine Cocaine Screen U Marijuana (THC) Screen Ethyl Alcohol COVID-19 (LAURY) Negative COVID-19 Clin Com See Note Discharge Plan Discharge Anticipated Discharge Date/Time: 09/23/20 11:01 Patient Disposition: [facility] Referrals: [facility] [Outside] Nenita Norton MD [Primary Care Provider] - Discharge Medications: Continued acyclovir 400 mg Tablet 400 mg PO BID RF: 0 losartan 50 mg Tablet 50 mg PO DAILY RF: 0 melatonin 3 mg Tablet 6 mg PO BEDTIME RF: 0 loratadine 10 mg Tablet 10 mg PO DAILY PRN (Reason: Allergic Symptoms) RF: 0 Discharge Orders: Discharge Order (Routine); Ordered 09/23/20 Ordered By: Ricardo Tucker Diet: advance to usual diet Activity on Discharge: As tolerated Stand Alone Forms: Patient Portal Discharge page Health Concerns: encephalopathy lymphoma Plan of Treatment: transfer to [facility]
--- NOTE | 2020-09-23 13:01 | MHC.CM.PN ---
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 Per Cornelius pt was independent with care prior to this admission, pt lives with his sister Jessica however per notes pt may have recently been asked to leave, housing at this time is unclear. Sister informed of pt's transfer to [facility] where Cornelius reports pt receives his cancer treatment. Pt's sister Azra did request to video chat with pt however when CM approached pt and asked if he wanted to speak with sister pt shook his head no and closed his eyes. Discharge Plan: transfer to [facility], BLS transport HCP: Jessica [facility] [phone], copy on file from previous visit. Alternate: None
--- NOTE | 2020-09-23 14:05 | PC.NURSE ---
CALLED [phone] TO GIVE REPORT TO RN AT [facility]. HE WILL BE GOING TO [address] [place] [address] 83. RN TO CALL BACK
--- NOTE | 2020-09-23 14:14 | PC.NURSE ---
REPORT GIVEN TO ROYAL VARELA AT [facility]
[2020-09-23 16:24] VITALS: BP 111/60; PULSE 67; RESP 16; TEMP 37.1; O2SAT 98
== END 2020-09-23 17:20 | disposition short-term general hospital (02) | DRG 691 ==
LOC: HO.ED 09-23 01:17 → HO.EDOVER 09-23 03:49 → HO.S3 09-23 09:44 → HO.EDOVER 09-23 11:44
PROVIDERS: Internal Medicine; Admitting Provider Internal Medicine; Emergency Provider Emergency Medicine; PCP Internal Medicine; Visit Provider Internal Medicine
DX: C83.10 Mantle cell lymphoma, unspecified site (principal); G13.1 Other systemic atrophy primarily affecting central nervous system in neoplastic disease; Z20.822 Contact with and (suspected) exposure to COVID-19; Z79.899 Other long term (current) drug therapy
CPT/HCPCS: 36415; 70450; 80048; 80076; 80307; 80320; 81001; 85025; 85060; 87071; 87635; 87880; 99284; 99285; J1100

== ENCOUNTER 2021-02-18 17:35 | Emergency (ER) | payer MEDICAID, SELFPAY ==
[2021-02-18 17:39] VITALS: BP 110/60; BP 97/61; PULSE 59; PULSE 85; RESP 18; TEMP 36.9; O2SAT 94; O2SAT 98; BMI 25.8
--- NOTE | 2021-02-18 17:41 | ED_ITS ---
HPI - General Adult General Chief complaint: General Medical Stated complaint: g tube issue Time Seen by Provider: 02/18/21 17:41 Source: patient, family and EMS Mode of arrival: EMS Limitations: other (cognitive impairment) History of Present Illness MD complaint: g tube malfunction Onset (ago): hour(s) (8) Location: abdomen Radiation: non-radiation Severity: mild Relieving factors: none Exacerbating factors: none Associated symptoms: denies other symptoms Treatments prior to arrival: other (it appears they attempted to tape the area where the tubing retracted from the port) Related Data Home Medications Medication Instructions Recorded Confirmed acyclovir 400 mg PO BID 05/20/20 09/23/20 loratadine 10 mg PO DAILY PRN 09/23/20 09/23/20 losartan 50 mg PO DAILY 09/23/20 09/23/20 melatonin 6 mg PO BEDTIME 09/23/20 09/23/20 Allergies Allergy/AdvReac Type Severity Reaction Status Date / Time cyclobenzaprine [Flexeril] Allergy Unknown Palpitation Verified 09/22/20 15:41 s Review of Systems Review of Systems: ROS unable to be obtained due to altered mental status [facility] Past Medical History Attestation statement: The following information was validated with the patient. 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 Depression Encephalopathy H/O: RCT (rotator cuff tear) Kidney stone Mantle cell lymphoma Rectal bleeding Toxoplasmosis Surgical History History of appendectomy Family History Family History Mother COPD (chronic obstructive pulmonary disease) Sister Colon cancer Social History Social History Alcohol intake: never Smoked in Last 30 Days: No Use of substances other than those prescribed or required for medical reasons: No Substance Use Type: Marijuana Advance Directives: No Advance Directives Information Provided: No service: No Current occupational status: unemployed Physical Exam Vital Signs: Vital Signs: Last Vital Signs Temp 98.4 F 02/18/21 18:00 Pulse 85 02/18/21 18:00 Resp 18 02/18/21 18:00 BP 97/61 02/18/21 18:00 Pulse Ox 98 02/18/21 18:00 Body Mass Index 25.8 Appearance: Alert. Oriented X1. No acute distress. Eyes: Pupils equal, round and reactive to light. ENT: Pharynx normal. Neck: Normal inspection. Neck supple. CVS: Normal heart rate and rhythm. Pulses normal. Respiratory: No respiratory distress. Breath sounds normal. Abdomen: Soft and no grimacing to palpation - site of g tube fracture seems to be at the port itself no other information provided : Rubio in place Skin: Skin warm and clammy. pale skin color. Normal skin turgor. Extremities: No lower extremity edema. No calf ttp Neuro: Oriented X 1. No motor deficit. No sensory deficit. 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 The tube itself is very unkempt Lab Data Labs: Lab Results 02/18/21 Range/Units 17:45 POC Glucose 95 (60-115) mg/dL Discharge Plan Discharge Clinical Impression: Complaint associated with gastric tube Patient Disposition: Xfer SNF Transfer Details: [facility] Instructions: Tube Feeding (DC) Additional Instructions: return to ED for any worsening symptoms or concerns we connected a 22Fr port and sealed it, it flushes well and aspirates well - this is a short term solution you need to contact surgery vs GI for intermission coordinator placement you may want to contact the person who originally placed the tube Prescriptions: No Action acyclovir 400 mg Tablet 400 mg PO BID RF: 0 losartan 50 mg Tablet 50 mg PO DAILY RF: 0 melatonin 3 mg Tablet 6 mg PO BEDTIME RF: 0 loratadine 10 mg Tablet 10 mg PO DAILY PRN (Reason: Allergic Symptoms) RF: 0 Referrals: David Carmichael [Physician] - 2 days
[2021-02-18 17:51] LABS: Glucose, Whole Blood 95 mg/dL (60-115)
[2021-02-18 18:00] VITALS: BP 97/61; PULSE 85; RESP 18; TEMP 36.9; O2SAT 98
--- NOTE | 2021-02-18 18:01 | PC.NURSE ---
contact made to ashlyn at 1750: per soren VARGAS, gtube was found to be broken 8hr prior to arrival in ED, they are unable to deflate the balloon due to broken cath. PT IS FULL CODE. GTUBe found to be 20 F.
--- NOTE | 2021-02-18 19:48 | PC.NURSE ---
MD WEST ASKED THIS RN TO TAKE A #22 NG TUBE AND REPLACE TOP PORTION WHERE SYRINGE IS PLACED FOR TUBE FLUSH AND FEEDING. SHE INSTRUCTED ME TO CUT UPPER PORTION OF NEW TUBE AND FIT IT OVER EXISTING GTUBE FOR TEMPORARY REPAIR UNTIL PT'S GTUBE CAN BE REPLACED BY GI SERVICES. SKIN PREP ADHESIVE PLACED ON EXISTING TUBE, AND FIT IT NEW PORTION OF #22 ADAPTER. REINFORCED WITH PAPER TAPE. TUBE FLUSHED WELL, GASTRIC CONTENTS VISUALIZED WHEN SYRINGE DRAWN BACK. MD WEST AT BEDSIDE DURING FLUSH, NO LEAKING FROM CONNECTION.
--- NOTE | 2021-02-18 20:04 | PC.NURSE ---
d/c instructions given to family at bedside. 2x called to give report to edgar green, both times, someone picked up phone then hung up immediately.
[2021-02-18 20:34] VITALS: BP 101/65; PULSE 84; RESP 14; TEMP 36.9; O2SAT 100
== END 2021-02-18 21:06 | disposition skilled nursing facility (03) ==
PROVIDERS: Emergency Provider Emergency Medicine
DX: K94.23 Gastrostomy malfunction (principal); Y83.3 Surgical operation with formation of external stoma as the cause of abnormal reaction of the patient, or of later complication, without mention of misadventure at the time of the procedure; Y92.9 Unspecified place or not applicable; C83.19 Mantle cell lymphoma, extranodal and solid organ sites
CPT/HCPCS: 82947; 99284; 99285

== ENCOUNTER 2021-07-17 15:53 | Emergency (ER) | payer MEDICAID, SELFPAY ==
--- NOTE | ~2021-07-17 | XR_ITS ---
EXAMINATION: XR CHEST CLINICAL INFORMATION: Fever. Evaluate for aspiration and pneumonia. COMPARISON: Chest CT dated from 05/17/2020 and chest radiograph dated from 11/29/2019. TECHNIQUE: AP view of the chest was obtained. FINDINGS: Normal appearance of the cardiomediastinal silhouette. EKG wires overlie the patient. No focal airspace opacities, pleural effusions or pneumothorax. No acute osseous findings. XR/XR chest 1V IMPRESSION: No acute cardiopulmonary findings.
[2021-07-17 16:47] VITALS: BP 102/80; PULSE 90; RESP 16; TEMP 36.9; O2SAT 100; BMI 25.0
--- NOTE | 2021-07-17 16:50 | ED.FEVER ---
HPI - Fever General Chief Complaint: Fever Stated Complaint: fever x4 days Time Seen by Provider: 07/17/21 16:49 Source: EMS and RN notes reviewed Mode of arrival: EMS Limitations: language barrier History of Present Illness HPI Narrative: [facility] with history of toxoplasmosis, lymphoma sent here as RN noticed temperature of 100 degrees also patient noticed been coughing a little for last few days details not available as patient is nonverbal Related Data Home Medications Medication Instructions Recorded Confirmed acyclovir 400 mg tablet 400 mg PO BID 05/20/20 09/23/20 loratadine 10 mg tablet 10 mg PO DAILY PRN 09/23/20 09/23/20 losartan 50 mg tablet 50 mg PO DAILY 09/23/20 09/23/20 melatonin 3 mg tablet 6 mg PO BEDTIME 09/23/20 09/23/20 Allergies Allergy/AdvReac Type Severity Reaction Status Date / Time cyclobenzaprine [Flexeril] Allergy Unknown Palpitation Verified 09/22/20 15:41 s Review of Systems Review of Systems: Yes Unobtainable due to mental condition PMFSH Past Medical History Medical History Appendicitis Chronic pain 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 Depression Encephalopathy H/O: RCT (rotator cuff tear) Kidney stone Mantle cell lymphoma Rectal bleeding Toxoplasmosis Surgical History History of appendectomy Family History Family History Mother COPD (chronic obstructive pulmonary disease) Sister Colon cancer Social History Social History Alcohol intake: never Substance Use Type: Marijuana Advance Directives: No Advance Directives Information Provided: Yes service: No Current occupational status: unemployed Physical Exam Vital Signs: Vital Signs: Last Vital Signs Temp 98.4 F 07/17/21 16:47 Pulse 90 07/17/21 16:47 Resp 16 07/17/21 16:47 BP 102/80 07/17/21 16:47 Pulse Ox 100 07/17/21 16:47 BMI result Body Mass Index 25.0 Appearance: Alert and awake nonverbal not in any distress Eyes: No pallor/ icterus ENT: Pharynx normal. Oral Mucosa moist Neck: Normal inspection. Neck supple. CVS: Normal heart rate and rhythm. Pulses normal. Respiratory: No respiratory distress. Equal air entry bilateral, no wheezing/rales/rhonchi Abdomen: Soft and nontender. Bowel sounds are present, no mass palpable, no CVA tenderness Skin: Skin warm and dry. Normal skin color. Normal skin turgor. Extremities: No lower extremity edema. No calf tenderness Neuro: Alert and awake left-sided residual hemiparesis MDM - Fever MDM Narrative Medical decision making narrative: Etiology of low-grade fever is not clear workup is negative per family patient looks same as before COVID negative lactic acid normal no source of infection will discharge patient [facility] likely viral as a cause of fever Lab Data Attestation: I reviewed the patient's lab results. Result diagrams: 07/17/21 17:27 07/17/21 17:27 Labs: Lab Results 07/17/21 07/17/21 07/17/21 Range/Units 17:10 17:27 17:27 WBC 3.4 L (4.8-10.8) X10*3/uL RBC 3.03 L (4.60-5.80) X10*6/uL Hgb 10.7 L (14.0-18.0) g/dl Hct 31.2 L (42.0-52.0) % MCV 103.0 H (80.0-98.0) fL MCH 35.3 H (27.0-33.0) pg MCHC 34.3 (31.0-36.0) g/dl RDW 13.2 (11.0-16.0) % Plt Count 120 L (160-400) X10*3/uL MPV 9.4 (9.4-12.4) fL Immature Gran % (Auto) 0.3 (0.0-0.4) % Neut % (Auto) 75.2 H (45-73) % Lymph % (Auto) 16.0 L (20-40) % [place] % (Auto) 7.6 (2-11) % Eos % (Auto) 0.9 (0-4) % Baso % (Auto) 0.0 (0-2) % Lymph # (Auto) 0.6 L (1.2-4.9) X10*3/uL [place] # (Auto) 0.3 (0.1-1.2) X10*3/uL Eos # (Auto) 0.0 (0.0-0.4) X10*3/uL Baso # (Auto) 0.0 (0.0-0.2) X10*3/uL Abs Immat Gran (auto) 0.01 (0.00-0.03) X10*3/uL Absolute Neuts (auto) 2.6 (2.0-8.3) x10*3/uL Absolute Nucleated RBC 0.000 (0.0-0.012) X10*3/uL Nucleated RBC % (auto) 0.0 (0.0-0.2) /100WBC Sodium 139 (135-145) mmol/L Potassium 4.1 (3.3-5.1) mmol/L Chloride 103 (96-108) mmol/L Carbon Dioxide 27 (22-29) mmol/L Anion Gap 13 (12-20) BUN 17 H (9-16) mg/dL Creatinine 0.85 (0.5-1.4) mg/dL Estim Creat Clear Calc 92.4 Estimated GFR > 60 Random Glucose 98 (60-115) mg/dL Lactic Acid (0.5-2.0) mmol/L Calcium 8.8 (8.4-10.2) mg/dL Total Bilirubin 0.4 (0.0-1.0) mg/dL AST 22 (5-37) U/L ALT 55 H (0-40) U/L Alkaline Phosphatase 86 D (39-117) U/L Total Protein 5.8 L (6.5-8.0) g/dL Albumin 3.6 (3.5-5.0) g/dL Urine Color Urine Appearance Urine pH (5.0-8.0) Ur Specific [place] (1.005-1.025) Urine Protein (NEG-TRACE) MG/DL Urine Glucose (UA) (NEG) MG/DL Urine Ketones (NEG) MG/DL Urine Blood (NEG) Urine Nitrite (NEG) Ur Leukocyte Esterase (NEG) Urine RBC (0) /HPF Urine WBC (0-4) /HPF Ur Squamous Epith Cells /LPF Urine Bacteria /LPF COVID-19 (LAURY) Negative (Negative) COVID-19 Clin Com See Note 07/17/21 07/17/21 Range/Units 17:27 19:18 WBC (4.8-10.8) X10*3/uL RBC (4.60-5.80) X10*6/uL Hgb (14.0-18.0) g/dl Hct (42.0-52.0) % MCV (80.0-98.0) fL MCH (27.0-33.0) pg MCHC (31.0-36.0) g/dl RDW (11.0-16.0) % Plt Count (160-400) X10*3/uL MPV (9.4-12.4) fL Immature Gran % (Auto) (0.0-0.4) % Neut % (Auto) (45-73) % Lymph % (Auto) (20-40) % [place] % (Auto) (2-11) % Eos % (Auto) (0-4) % Baso % (Auto) (0-2) % Lymph # (Auto) (1.2-4.9) X10*3/uL [place] # (Auto) (0.1-1.2) X10*3/uL Eos # (Auto) (0.0-0.4) X10*3/uL Baso # (Auto) (0.0-0.2) X10*3/uL Abs Immat Gran (auto) (0.00-0.03) X10*3/uL Absolute Neuts (auto) (2.0-8.3) x10*3/uL Absolute Nucleated RBC (0.0-0.012) X10*3/uL Nucleated RBC % (auto) (0.0-0.2) /100WBC Sodium (135-145) mmol/L Potassium (3.3-5.1) mmol/L Chloride (96-108) mmol/L Carbon Dioxide (22-29) mmol/L Anion Gap (12-20) BUN (9-16) mg/dL Creatinine (0.5-1.4) mg/dL Estim Creat Clear Calc Estimated GFR Random Glucose (60-115) mg/dL Lactic Acid 0.5 (0.5-2.0) mmol/L Calcium (8.4-10.2) mg/dL Total Bilirubin (0.0-1.0) mg/dL AST (5-37) U/L ALT (0-40) U/L Alkaline Phosphatase (39-117) U/L Total Protein (6.5-8.0) g/dL Albumin (3.5-5.0) g/dL Urine Color YELLOW Urine Appearance CLEAR Urine pH 6.0 (5.0-8.0) Ur Specific [place] 1.025 (1.005-1.025) Urine Protein 2+ H (NEG-TRACE) MG/DL Urine Glucose (UA) NEG (NEG) MG/DL Urine Ketones 5 (NEG) MG/DL Urine Blood TRACE (NEG) Urine Nitrite NEG (NEG) Ur Leukocyte Esterase NEG (NEG) Urine RBC 0-2 (0) /HPF Urine WBC 0 (0-4) /HPF Ur Squamous Epith Cells NONE /LPF Urine Bacteria 1+ /LPF COVID-19 (LAURY) (Negative) COVID-19 Clin Com Discharge Plan Discharge Clinical Impression: Fever of unknown origin Patient Disposition: Xfer [facility] Instructions: Fever in Adults (ED) Additional Instructions: Cause of fever is not known blood workup is negative no signs of infection Blood culture sent COVID-19 negative urine and chest x-ray negative Tylenol for fever Follow-up with PCP Prescriptions: No Action acyclovir 400 mg Tablet 400 mg PO BID RF: 0 losartan 50 mg Tablet 50 mg PO DAILY RF: 0 melatonin 3 mg Tablet 6 mg PO BEDTIME RF: 0 loratadine 10 mg Tablet 10 mg PO DAILY PRN (Reason: Allergic Symptoms) RF: 0
[2021-07-17 17:33] LABS: MANUAL DIFF FLAG NO
[2021-07-17 17:35] LABS: Eosinophils Percent Auto 0.9 % (0-4); Hematocrit 31.2 % (42.0-52.0); Hemoglobin 10.7 g/dl (14.0-18.0); Imm Gran Abs Auto 0.01 X10*3/uL (0.00-0.03); Imm Gran Pct Auto 0.3 % (0.0-0.4); Lymphocytes Absolute Auto 0.6 X10*3/uL (1.2-4.9); Mean Corpuscular HGB Conc 34.3 g/dl (31.0-36.0); Mean Corpuscular Hemoglobin 35.3 pg (27.0-33.0); Mean Platelet Volume 9.4 fL (9.4-12.4); Monocytes Absolute Auto 0.3 X10*3/uL (0.1-1.2); Monocytes Percent Auto 7.6 % (2-11); Neutrophils Absolute Auto 2.6 x10*3/uL (2.0-8.3); Neutrophils Percent Auto 75.2 % (45-73); Platelet Count 120 X10*3/uL (160-400); Red Blood Count 3.03 X10*6/uL (4.60-5.80); Red Cell Distribution Width 13.2 % (11.0-16.0); White Blood Count 3.4 X10*3/uL (4.8-10.8)
[2021-07-17 17:47] LABS: Lactic Acid 0.5 mmol/L (0.5-2.0)
[2021-07-17 17:55] LABS: Alanine Aminotransferase 55 U/L (0-40); Albumin Level 3.6 g/dL (3.5-5.0); Alkaline Phosphatase 86 U/L (39-117); Anion Gap 13 (12-20); Aspartate Amino Transferase 22 U/L (5-37); Bilirubin Total 0.4 mg/dL (0.0-1.0); Blood Urea Nitrogen 17 mg/dL (9-16); Calcium 8.8 mg/dL (8.4-10.2); Carbon Dioxide 27 mmol/L (22-29); Chloride 103 mmol/L (96-108); Creatinine Clr Calc Pharmacy 92.4; Estimated Glomerular Filt Rate > 60; Glucose Random 98 mg/dL (60-115); Potassium 4.1 mmol/L (3.3-5.1); Sodium 139 mmol/L (135-145); Total Protein 5.8 g/dL (6.5-8.0)
[2021-07-17 17:59] LABS: COVID-19 Test Negative (Negative)
[2021-07-17 19:36] LABS: Appearance Urine CLEAR; Color Urine YELLOW; Glucose Urine UA NEG (NEG); Leukocyte Esterase Urine NEG (NEG); Nitrite Urine NEG (NEG); Specific Gravity - Urine 1.025 (1.005-1.025); UACC Culture Trigger NO; Urine Blood TRACE (NEG); Urine Ketones 5 MG/DL (NEG); Urine Protein 2+ MG/DL (NEG-TRACE)
[2021-07-17 19:46] LABS: Bacteria Urine 1+ /LPF; RBC Urine 0-2 /HPF (0); WBC Urine 0 /HPF (0-4)
== END 2021-07-18 01:41 | disposition skilled nursing facility (03) ==
PROVIDERS: Emergency Provider Internal Medicine
DX: R50.9 Fever, unspecified (principal); Z20.822 Contact with and (suspected) exposure to COVID-19
CPT/HCPCS: 36415; 71045; 80053; 81001; 83605; 85025; 87040; 87635; 99283

== ENCOUNTER 2021-07-21 02:45 | Emergency (ER) | payer MEDICAID, SELFPAY ==
--- NOTE | ~2021-07-21 | CT_ITS ---
EXAMINATION: CT ABDOMEN AND PELVIS WITHOUT CONTRAST CLINICAL INFORMATION: Vomiting. Nonverbal. COMPARISON: 11/19/2019 TECHNIQUE: Multidetector volumetric imaging was performed from the superior aspect of the liver through the pubic symphysis. Sagittal and coronal reformatted images were obtained on the technologist's workstation. This CT examination was performed using dose optimization techniques as appropriate, variously including the following: *Automated exposure control *Adjustment of mA and/or kV according to patient size (this includes techniques or standardized protocols for targeted exams where dose is matched to indication/reason for exam; i.e. extremities or head) *Use of iterative reconstruction technique DLP: 645 mGy-cm FINDINGS: LUNG BASES: Mild patchy ground glass opacities within the lower lobes bilaterally and posterior middle lobe could reflect a mild pneumonitis, perhaps related to aspiration. LIVER, GALLBLADDER, AND BILIARY TREE: The liver is normal in size, shape, and attenuation. No focal hepatic lesion or biliary ductal dilatation is present. Gallbladder unremarkable. PANCREAS: Unremarkable. SPLEEN: Unremarkable. ADRENAL GLANDS: Unremarkable. KIDNEYS AND URETERS: The kidneys are normal in size, shape, and attenuation. Simple cyst redemonstrated along the posterolateral lower pole of left kidney, benign requiring no further follow-up. No hydronephrosis, hydroureter, or calculi seen. No perinephric stranding. BLADDER: Unremarkable. GASTROINTESTINAL TRACT: No intestinal obstruction or inflammation. Moderate constipation with stool present within the rectum. No evidence of stercoral colitis. ABDOMINAL WALL: No significant hernia is appreciated. LYMPH NODES: Previously seen retroperitoneal and bilateral inguinal lymphadenopathy is resolved. VASCULAR: Unremarkable. PELVIC VISCERA: Unremarkable. OSSEOUS STRUCTURES: No acute or suspicious osseous abnormalities. CT/CT abdomen pelvis wo con IMPRESSION: * Bilateral patchy groundglass opacities within the lower lungs bilaterally could represent an atypical pneumonitis or aspiration pneumonitis. * Moderate constipation, worse within the rectum, without evidence of stricture or colitis. * Previously seen abdominopelvic lymphadenopathy has resolved. Fleischner guidelines were followed.
[2021-07-21 03:02] VITALS: BP 105/70; BP 107/74; PULSE 107; PULSE 110; RESP 16; TEMP 37; O2SAT 100; BMI 18.3
--- NOTE | 2021-07-21 03:09 | ED.GENADULT ---
HPI - General Adult General Chief complaint: Nausea/Vomiting/Diarrhea Stated complaint: VOMITING X'S 12 HRS,NPO/FEEDING TUBE PER SNF Time Seen by Provider: 07/21/21 02:58 Source: EMS Mode of arrival: EMS Limitations: other (Nonverbal at baseline) History of Present Illness HPI narrative: Patient comes from a long-term facility, EMS reports that the patient has been vomiting for 12 hours intermittently. Patient is nonverbal and cannot give any history. Per EMS and long-term facility staff, there has not been any diarrhea, no known fever Related Data Home Medications Medication Instructions Recorded Confirmed acyclovir 400 mg tablet 400 mg PO BID 05/20/20 09/23/20 loratadine 10 mg tablet 10 mg PO DAILY PRN 09/23/20 09/23/20 losartan 50 mg tablet 50 mg PO DAILY 09/23/20 09/23/20 melatonin 3 mg tablet 6 mg PO BEDTIME 09/23/20 09/23/20 Previous Rx's Medication Instructions Recorded levofloxacin 500 mg tablet 500 mg FEEDING TUBE DAILY #6 tab 07/21/21 ondansetron HCl 4 mg tablet 4 mg FEEDING TUBE Q6H PRN #10 tab 07/21/21 (Zofran) Allergies Allergy/AdvReac Type Severity Reaction Status Date / Time cyclobenzaprine [Flexeril] Allergy Unknown Palpitation Verified 09/22/20 15:41 s Review of Systems Review of Systems: Yes Unobtainable due to mental condition PMFSH Past Medical History Medical History Appendicitis 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 Depression Encephalopathy H/O: RCT (rotator cuff tear) Kidney stone Mantle cell lymphoma Rectal bleeding Toxoplasmosis Surgical History History of appendectomy Family History Family History Mother COPD (chronic obstructive pulmonary disease) Sister Colon cancer Social History Social History Alcohol intake: never Patient Tobacco Use Status: Never used Tobacco Use of substances other than those prescribed or required for medical reasons: No Substance Use Type: Marijuana Advance Directives: No service: No Current occupational status: unemployed Physical Exam Vital Signs: Vital Signs: Last Vital Signs Temp 98.6 F 07/21/21 03:02 Pulse 94 07/21/21 04:53 Resp 16 07/21/21 04:53 BP 100/61 07/21/21 04:53 Pulse Ox 100 07/21/21 04:53 BMI result Body Mass Index 18.3 Course Course Course Narrative: Patient's CT scan shows bilateral patchy ground-glass opacities within the lower lungs, which represents atypical pneumonitis versus aspiration pneumonitis. Patient has been vomiting today, patient will be treated empirically. At this time, patient has no respiratory symptoms. White blood cell count within normal limits, lactic acid slightly bumped likely secondary to dehydration. Patient was given 1 dose of levofloxacin in via G-tube , in case patient aspirated which is quite possible. COVID-19/RSV/influenza test came negative In the emergency room, patient has not had any vomiting episodes. Medical Decision Making Lab Data Result diagrams: 07/21/21 03:32 07/21/21 03:32 Labs: Lab Results 07/21/21 07/21/21 07/21/21 Range/Units 03:19 03:32 03:32 WBC 6.1 (4.8-10.8) X10*3/uL RBC 3.44 L (4.60-5.80) X10*6/uL Hgb 12.4 L (14.0-18.0) g/dl Hct 35.7 L (42.0-52.0) % MCV 103.8 H (80.0-98.0) fL MCH 36.0 H (27.0-33.0) pg MCHC 34.7 (31.0-36.0) g/dl RDW 13.5 (11.0-16.0) % Plt Count 137 L (160-400) X10*3/uL MPV 10.0 (9.4-12.4) fL Immature Gran % (Auto) 0.2 (0.0-0.4) % Neut % (Auto) 91.5 H (45-73) % Lymph % (Auto) 2.6 L (20-40) % [place] % (Auto) 5.7 (2-11) % Eos % (Auto) 0.0 (0-4) % Baso % (Auto) 0.0 (0-2) % Lymph # (Auto) 0.2 L (1.2-4.9) X10*3/uL [place] # (Auto) 0.4 (0.1-1.2) X10*3/uL Eos # (Auto) 0.0 (0.0-0.4) X10*3/uL Baso # (Auto) 0.0 (0.0-0.2) X10*3/uL Abs Immat Gran (auto) 0.01 (0.00-0.03) X10*3/uL Absolute Neuts (auto) 5.6 (2.0-8.3) x10*3/uL Absolute Nucleated RBC 0.000 (0.0-0.012) X10*3/uL Nucleated RBC % (auto) 0.0 (0.0-0.2) /100WBC Smear Tech's Comments VERIFIED Sodium 141 (135-145) mmol/L Potassium 4.4 (3.3-5.1) mmol/L Chloride 103 (96-108) mmol/L Carbon Dioxide 26 (22-29) mmol/L Anion Gap 16 (12-20) BUN 25 H (9-16) mg/dL Creatinine 1.01 (0.5-1.4) mg/dL Estim Creat Clear Calc 77.6 Estimated GFR > 60 Random Glucose 182 H D (60-115) mg/dL Lactic Acid (0.5-2.0) mmol/L Calcium 9.3 (8.4-10.2) mg/dL Total Bilirubin 0.8 (0.0-1.0) mg/dL Direct Bilirubin 0.4 (0.0-0.5) mg/dL AST 21 (5-37) U/L ALT 48 H (0-40) U/L Alkaline Phosphatase 101 (39-117) U/L Total Protein 6.5 (6.5-8.0) g/dL Albumin 3.9 (3.5-5.0) g/dL Lipase 29 (8-78) U/L Urine Color Urine Appearance Urine pH (5.0-8.0) Ur Specific [place] (1.005-1.025) Urine Protein (NEG-TRACE) MG/DL Urine Glucose (UA) (NEG) MG/DL Urine Ketones (NEG) MG/DL Urine Blood (NEG) Urine Nitrite (NEG) Ur Leukocyte Esterase (NEG) Urine RBC (0) /HPF Urine WBC (0-4) /HPF Ur Squamous Epith Cells /LPF Urine Bacteria /LPF Granular Casts /LPF Urine Mucus /LPF COVID-19 (LAURY) Invalid (Negative) COVID-19 Clin Com See Note Influenza Type A (PCR) (Negative) Influenza Type B (PCR) (Negative) RSV RNA Qual (PCR) (Negative) SARS-CoV-2 RNA (RT-PCR) (Negative) 07/21/21 07/21/21 07/21/21 Range/Units 03:32 04:32 04:32 WBC (4.8-10.8) X10*3/uL RBC (4.60-5.80) X10*6/uL Hgb (14.0-18.0) g/dl Hct (42.0-52.0) % MCV (80.0-98.0) fL MCH (27.0-33.0) pg MCHC (31.0-36.0) g/dl RDW (11.0-16.0) % Plt Count (160-400) X10*3/uL MPV (9.4-12.4) fL Immature Gran % (Auto) (0.0-0.4) % Neut % (Auto) (45-73) % Lymph % (Auto) (20-40) % [place] % (Auto) (2-11) % Eos % (Auto) (0-4) % Baso % (Auto) (0-2) % Lymph # (Auto) (1.2-4.9) X10*3/uL [place] # (Auto) (0.1-1.2) X10*3/uL Eos # (Auto) (0.0-0.4) X10*3/uL Baso # (Auto) (0.0-0.2) X10*3/uL Abs Immat Gran (auto) (0.00-0.03) X10*3/uL Absolute Neuts (auto) (2.0-8.3) x10*3/uL Absolute Nucleated RBC (0.0-0.012) X10*3/uL Nucleated RBC % (auto) (0.0-0.2) /100WBC Smear Tech's Comments Sodium (135-145) mmol/L Potassium (3.3-5.1) mmol/L Chloride (96-108) mmol/L Carbon Dioxide (22-29) mmol/L Anion Gap (12-20) BUN (9-16) mg/dL Creatinine (0.5-1.4) mg/dL Estim Creat Clear Calc Estimated GFR Random Glucose (60-115) mg/dL Lactic Acid 2.2 H* (0.5-2.0) mmol/L Calcium (8.4-10.2) mg/dL Total Bilirubin (0.0-1.0) mg/dL Direct Bilirubin (0.0-0.5) mg/dL AST (5-37) U/L ALT (0-40) U/L Alkaline Phosphatase (39-117) U/L Total Protein (6.5-8.0) g/dL Albumin (3.5-5.0) g/dL Lipase (8-78) U/L Urine Color YELLOW Urine Appearance HAZY Urine pH 6.0 (5.0-8.0) Ur Specific [place] >= 1.030 H (1.005-1.025) Urine Protein 2+ H (NEG-TRACE) MG/DL Urine Glucose (UA) NEG (NEG) MG/DL Urine Ketones NEG (NEG) MG/DL Urine Blood 2+ H (NEG) Urine Nitrite NEG (NEG) Ur Leukocyte Esterase NEG (NEG) Urine RBC 5-9 H (0) /HPF Urine WBC 1-4 (0-4) /HPF Ur Squamous Epith Cells 1+ /LPF Urine Bacteria 4+ /LPF Granular Casts 1-4 /LPF Urine Mucus 2+ /LPF COVID-19 (LAURY) (Negative) COVID-19 Clin Com Influenza Type A (PCR) NEGATIVE (Negative) Influenza Type B (PCR) NEGATIVE (Negative) RSV RNA Qual (PCR) NEGATIVE (Negative) SARS-CoV-2 RNA (RT-PCR) NEGATIVE (Negative) Imaging Data CT scan - abdomen: Radiologist's impression: FINDINGS: LUNG BASES: Mild patchy ground glass opacities within the lower lobes bilaterally and posterior middle lobe could reflect a mild pneumonitis, perhaps related to aspiration.? LIVER, GALLBLADDER, AND BILIARY TREE: The liver is normal in size, shape, and attenuation. No focal hepatic lesion or biliary ductal dilatation is present. Gallbladder unremarkable.? PANCREAS: Unremarkable.? SPLEEN: Unremarkable.? ADRENAL GLANDS: Unremarkable.? KIDNEYS AND URETERS: The kidneys are normal in size, shape, and attenuation. Simple cyst redemonstrated along the posterolateral lower pole of left kidney, benign requiring no further follow-up. No hydronephrosis, hydroureter, or calculi seen. No perinephric stranding. ? BLADDER: Unremarkable.? GASTROINTESTINAL TRACT: No intestinal obstruction or inflammation. Moderate constipation with stool present within the rectum. No evidence of stercoral colitis.? ABDOMINAL WALL: No significant hernia is appreciated.? LYMPH NODES: Previously seen retroperitoneal and bilateral inguinal lymphadenopathy is resolved. VASCULAR: Unremarkable. PELVIC VISCERA: Unremarkable.? OSSEOUS STRUCTURES: No acute or suspicious osseous abnormalities.? CT/CT abdomen pelvis wo con IMPRESSION: *? Bilateral patchy groundglass opacities within the lower lungs bilaterally could represent an atypical pneumonitis or aspiration pneumonitis. *? Moderate constipation, worse within the rectum, without evidence of stricture or colitis. *? Previously seen abdominopelvic lymphadenopathy has resolved.? ? Fleischner guidelines were followed. Discharge Plan Discharge Clinical Impression: Vomiting Patient Disposition: Home, Self-Care Instructions: Acute Nausea and Vomiting (ED) Additional Instructions: Please follow-up with your primary care physician tomorrow. If you have any worsening or new symptoms, please return to the emergency room or call 911 Prescriptions: New ondansetron HCl [Zofran] 4 mg tablet 4 mg feeding tube Q6H PRN (Reason: nausea and vomiting) Qty: 10 RF: 0 levofloxacin 500 mg tablet 500 mg feeding tube DAILY Qty: 6 RF: 0 No Action acyclovir 400 mg Tablet 400 mg PO BID RF: 0 losartan 50 mg Tablet 50 mg PO DAILY RF: 0 melatonin 3 mg Tablet 6 mg PO BEDTIME RF: 0 loratadine 10 mg Tablet 10 mg PO DAILY PRN (Reason: Allergic Symptoms) RF: 0
[2021-07-21 03:12] VITALS: BP 102/72; PULSE 106; O2SAT 100
[2021-07-21 03:40] LABS: Hematocrit 35.7 % (42.0-52.0); Hemoglobin 12.4 g/dl (14.0-18.0); Imm Gran Abs Auto 0.01 X10*3/uL (0.00-0.03); Imm Gran Pct Auto 0.2 % (0.0-0.4); Lymphocytes Absolute Auto 0.2 X10*3/uL (1.2-4.9); Lymphocytes Percent Auto 2.6 % (20-40); MANUAL DIFF FLAG SCAN; Mean Corpuscular HGB Conc 34.7 g/dl (31.0-36.0); Mean Corpuscular Volume 103.8 fL (80.0-98.0); Monocytes Absolute Auto 0.4 X10*3/uL (0.1-1.2); Monocytes Percent Auto 5.7 % (2-11); Neutrophils Absolute Auto 5.6 x10*3/uL (2.0-8.3); Neutrophils Percent Auto 91.5 % (45-73); Platelet Count 137 X10*3/uL (160-400); Red Blood Count 3.44 X10*6/uL (4.60-5.80); Red Cell Distribution Width 13.5 % (11.0-16.0); SCAN SMEAR FLAG 1; White Blood Count 6.1 X10*3/uL (4.8-10.8)
[2021-07-21 03:43] LABS: SLIDE REVIEW VERIFIED
[2021-07-21] MEDS: ondansetron HCL 4 MG/2 ML VIAL IVPUSH (03:46)
[2021-07-21] MEDS: 0.9 % Sodium Chloride 1,000 ML 999 ML IVCONT ×2 (03:46→04:54)
[2021-07-21 04:12] LABS: Alanine Aminotransferase 48 U/L (0-40); Albumin Level 3.9 g/dL (3.5-5.0); Alkaline Phosphatase 101 U/L (39-117); Anion Gap 16 (12-20); Aspartate Amino Transferase 21 U/L (5-37); Bilirubin Direct 0.4 mg/dL (0.0-0.5); Bilirubin Total 0.8 mg/dL (0.0-1.0); Blood Urea Nitrogen 25 mg/dL (9-16); Calcium 9.3 mg/dL (8.4-10.2); Carbon Dioxide 26 mmol/L (22-29); Chloride 103 mmol/L (96-108); Creatinine Clr Calc Pharmacy 77.6; Estimated Glomerular Filt Rate > 60; Glucose Random 182 mg/dL (60-115); Lipase 29 U/L (8-78); Potassium 4.4 mmol/L (3.3-5.1); Sodium 141 mmol/L (135-145); Total Protein 6.5 g/dL (6.5-8.0)
[2021-07-21 04:13] LABS: Lactic Acid 2.2 mmol/L (0.5-2.0)
[2021-07-21 04:15] LABS: COVID-19 Test Invalid (Negative); IDNOW Serial# 9DD0AD1C
[2021-07-21 04:38] LABS: Appearance Urine HAZY; Color Urine YELLOW; Glucose Urine UA NEG (NEG); Leukocyte Esterase Urine NEG (NEG); Nitrite Urine NEG (NEG); Specific Gravity - Urine >= 1.030 (1.005-1.025); UACC Culture Trigger NO; Urine Blood 2+ (NEG); Urine Ketones NEG (NEG); Urine Protein 2+ MG/DL (NEG-TRACE)
[2021-07-21 04:43] VITALS: BP 97/67; PULSE 98; RESP 16; O2SAT 99
[2021-07-21 04:53] VITALS: BP 100/61; PULSE 94; RESP 16; O2SAT 100
[2021-07-21 04:53] LABS: Squamous Epithelial Cell Urine 1+ /LPF
[2021-07-21 04:54] LABS: Bacteria Urine 4+ /LPF; Mucus Urine 2+ /LPF
[2021-07-21 05:13] LABS: Influenza A PCR NEGATIVE (Negative); Influenza B PCR NEGATIVE (Negative); Resp Syncy Virus RNA Qual PCR NEGATIVE (Negative); SARS COV2 PCR INHOUSE NEGATIVE (Negative)
[2021-07-21] MEDS: levoFLOXacin 500 MG TABLET G-TUBE (05:17)
[2021-07-21 05:36] LABS: Reflex Lactate? Lactic Acid Added
[2021-07-21 05:59] LABS: ~Lactic Acid-LAB USE ONLY 1.4 mmol/L (0.5-2.0)
[2021-07-21 06:00] VITALS: BP 96/65; PULSE 89; RESP 14; O2SAT 98
--- NOTE | 2021-07-21 06:16 | PC.NURSE ---
tried to call edgar green and no answer.
--- NOTE | 2021-07-21 06:38 | PC.NURSE ---
multiple calls made to try to give a report to facility. on the 4th called report was given to Darshana sorensen.
[2021-07-21 06:48] VITALS: BP 93/64; PULSE 83; RESP 16; O2SAT 98
== END 2021-07-21 09:25 | disposition home or self-care (01) ==
PROVIDERS: Emergency Provider Emergency Medicine
DX: R11.10 Vomiting, unspecified (principal); R19.7 Diarrhea, unspecified; R10.9 Unspecified abdominal pain; Z20.822 Contact with and (suspected) exposure to COVID-19; Z79.899 Other long term (current) drug therapy
CPT/HCPCS: 0241U; 36415; 74176; 80048; 80076; 81001; 83605; 83690; 85025; 87040; 87635; 96361; 96374; 99284; J2405

== ENCOUNTER 2023-01-02 11:09 | Inpatient (IN) | payer MEDICAID, SELFPAY ==
[2023-01-02] VITALS (12 sets, daily range): BP systolic 96–123; BP diastolic 60–74; PULSE 102–121; RESP 10–17; TEMP 37.1–38.8; O2SAT 95–100; BMI 19.8; BMI 20.5
--- NOTE | ~2023-01-02 | CT_ITS ---
EXAMINATION: CT CHEST, ABDOMEN AND PELVIS WITH CONTRAST. CLINICAL INFORMATION: Reason for Exam fever, unknown source. COMPARISON: 07/21/2021. TECHNIQUE: Multidetector volumetric imaging was performed from the thoracic inlet through the pubic symphysis following administration of 85 mL Omnipaque 350 intravenous contrast. Sagittal and coronal reformatted images were obtained on the technologist workstation. This CT examination was performed using dose optimization techniques as appropriate, variously including the following: * Automated exposure control * Adjustment of mA and/or kV according to patient size (this includes techniques or standardized protocols for targeted exams where dose is matched to indication/reason for exam; i.e. extremities or head) * Use of iterative reconstruction technique * Arms over body with ECG leads result in artifact. DLP: 429 mGy-cm FINDINGS: CHEST: LUNG: Tracheostomy tube in place with tip midline. Secretions in the trachea and main bronchi. Subtle tree-in-bud opacities in the posterior upper lobes may represent active airways disease such as aspiration. No lobar consolidation or effusion. Minimal dependent consolidation at the left base likely atelectasis. MEDIASTINUM: The mediastinum is normal. The central vascular structures are unremarkable. No hilar or mediastinal lymphadenopathy. PERICARDIUM/PLEURA: No significant effusion. No pleural mass or thickening. CHEST WALL/AXILLA: Tracheostomy tube in place without complication. Mild symmetric gynecomastia. ABDOMEN/PELVIS: PERITONEAL SPACE:No significant free air or free fluid identified. LIVER, GALLBLADDER, BILIARY TREE: The liver is normal in size, shape, and attenuation. No focal hepatic lesion or biliary ductal dilatation is present. The gallbladder is unremarkable with no evidence of radiopaque gallstones, gallbladder wall thickening, or obvious pericholecystic inflammatory changes. PANCREAS: Uniform enhancement without mass or ductal dilation. No inflammation. SPLEEN: Top normal size and unchanged. ADRENAL GLANDS: Unremarkable. KIDNEYS AND URETERS: Symmetric renal function without mass, calculus or hydronephrosis. No perinephric collection. BLADDER: The bladder is abnormally thick-walled. Gas is presumably related to a Rubio catheter. GASTROINTESTINAL TRACT: Gastrostomy tube in place with stomach decompressed. Nonobstructive gas pattern. Terminal ileum is normal in appearance. No pericecal inflammation. The appendix is not specifically identified. Subtle mesenteric fat stranding is nonspecific. Mesenteric vessels enhance normally. No mesenteric adenopathy. The rectum and sigmoid colon are abnormally thick-walled with inflammation. Changes extend into the proximal descending colon. This is consistent with acute ascending colitis. ABDOMINAL WALL: There is an open wound underlying the right hip with gas overlying the femoral trochanter. There are soft tissue calcifications. This is consistent with a penetrating ulcer. Wispy periosteal reaction arising from the greater trochanter may indicate early osteomyelitis. On the left there is incomplete visualization of subcutaneous fat stranding and enhancement extending to the inferior pubic ramus (image 92/92). No definite osteomyelitis. There is an fluid and gas collection underlying the greater trochanter of the left hip measuring up to 5 cm. Wispy periosteal reaction associated with the left greater trochanter may indicate early osteomyelitis. LYMPHOVASCULAR STRUCTURES: No lymphadenopathy. The aorta is unremarkable.. PELVIC VISCERA: The prostate and seminal vesicles are grossly normal. There is trace pelvic free fluid in the presacral space likely associated with acute ascending colitis. OSSEUS STRUCTURES: As noted above, penetrating ulcers underlying the femoral heads bilaterally are associated with wispy periosteal reaction from both greater trochanters raising the possibility of early osteomyelitis. Diffusely there is some mild osteosclerosis of. Degenerative changes in the spine. SPINE: Mild spondylosis. CT/CT abdomen pelvis w IV con IMPRESSION: There are penetrating ulcers bilaterally underlying the hips with wispy periosteal reaction of the right and left greater trochanters raising the possibility of early osteomyelitis. There is moderately severe ascending colitis from the rectum through the mid ascending colon. No bowel obstruction. No perforation or free air..
--- NOTE | ~2023-01-02 | XR_ITS ---
EXAMINATION: XR CHEST CLINICAL INFORMATION: Fever. COMPARISON: 07/17/2021 chest radiograph. TECHNIQUE: Frontal view of the chest was obtained. FINDINGS: A tracheostomy tube is noted in place. No significant abnormality is noted involving the heart, lungs, mediastinum, bony thorax or soft tissues. XR/XR chest 1V IMPRESSION: No acute cardiopulmonary process.
--- NOTE | 2023-01-02 11:20 | ECG_ITS ---
Test Reason : WEAKNESS Blood Pressure : / mmHG Vent. Rate : 104 BPM Atrial Rate : 104 BPM P-R Int : 136 ms QRS Dur : 074 ms QT Int : 350 ms P-R-T Axes : 068 032 057 degrees QTc Int : 460 ms Sinus tachycardia Otherwise normal ECG When compared with ECG of 29-NOV-2019 04:13, No significant change was found Referred By: Humaira Ledezma Electronically Signed By:NOAH SILVA
--- NOTE | 2023-01-02 11:35 | ED_ITS ---
HPI - Weakness General Chief complaint: Weakness Stated complaint: FEVER 102,SINCE LAST NIGHT,TYL/IBU TAKEN FROM SNF Time Seen by Provider: 01/02/23 11:11 Source: EMS Mode of arrival: EMS Limitations: altered mental status History of Present Illness HPI Narrative: This is a 52-year-old male who comes from [facility] with a past medical history of stage IV mantle cell lymphoma, [employer] toxoplasmosis, acute on chronic respiratory failure with trach in place on 35% trach mask, chronic kidney disease, anemia, GERD, seizure disorder, BPH with chronic Rubio, G-tube placement who presents to the ER with concern for fever. Per EMS patient has had fever with max temp of 103 degrees since last evening. They are unaware of the patient has had any other associated symptoms. Related Data Home Medications Medication Instructions Recorded Confirmed acetaminophen 325 mg tablet 650 mg feeding tube Q4H PRN Fever 01/02/23 01/02/23 Or Pain acetaminophen 650 mg rectal 650 mg MO Q4-6H PRN fever or pain 01/02/23 01/02/23 suppository albuterol sulfate 2.5 mg/3 mL 2.5 mg inhalation Q4H PRN 01/02/23 01/02/23 (0.083 %) solution for nebulization Shortness Of Breath Or Wheezing ascorbic acid (vitamin C) 250 mg 250 mg feeding tube DAILY 01/02/23 01/02/23 tablet atovaquone 750 mg/5 mL oral 750 mg feeding tube BID 01/02/23 01/02/23 suspension baclofen 10 mg tablet 5 mg feeding tube TID 01/02/23 01/02/23 bisacodyl 10 mg rectal suppository 10 mg MO DAILY PRN Constipation 01/02/23 01/02/23 chlorhexidine gluconate 0.12 % 15 ml buccal BID 01/02/23 01/02/23 mouthwash cholecalciferol (vitamin D3) 1,250 1,250 mcg feeding tube QMONTH 01/02/23 01/02/23 mcg (50,000 unit) tablet cholestyramine-aspartame 4 gram 4 g feeding tube DAILY 01/02/23 01/02/23 oral powder for susp in a packet (Cholestyramine Light) collagenase clostridium histo. 250 1 appl topical BID 01/02/23 01/02/23 unit/gram topical ointment doxazosin 1 mg tablet 1 mg feeding tube BEDTIME 01/02/23 01/02/23 famotidine 20 mg tablet 20 mg feeding tube BID 01/02/23 01/02/23 ferrous sulfate 300 mg (60 mg 300 mg feeding tube DAILY 01/02/23 01/02/23 iron)/5 mL oral liquid finasteride 5 mg tablet 5 mg feeding tube DAILY 01/02/23 01/02/23 glycopyrrolate 1 mg tablet 1 mg feeding tube TID 01/02/23 01/02/23 guaifenesin 200 mg/5 mL oral liquid 200 mg feeding tube Q4H PRN Cough 01/02/23 01/02/23 lacosamide 200 mg tablet 200 mg feeding tube BID 01/02/23 01/02/23 leucovorin calcium 25 mg tablet 25 mg feeding tube BEDTIME 01/02/23 01/02/23 loperamide 2 mg capsule 2 mg feeding tube Q4H PRN Diarrhea 01/02/23 01/02/23 lorazepam 0.5 mg tablet 0.5 mg feeding tube Q6H PRN Anxiety 01/02/23 01/02/23 lorazepam 2 mg/mL injection See Rx Instructions .Route .COMPLEX 01/02/23 01/02/23 solution magnesium hydroxide 400 mg/5 mL 30 ml feeding tube DAILY PRN 01/02/23 01/02/23 oral suspension (Milk of Magnesia) Constipation melatonin 3 mg tablet 3 mg feeding tube BEDTIME 01/02/23 01/02/23 midodrine 5 mg tablet 7.5 mg feeding tube TID 01/02/23 01/02/23 morphine 10 mg/5 mL oral solution 5 mg feeding tube BID 01/02/23 01/02/23 morphine 10 mg/5 mL oral solution 5 mg feeding tube Q6H PRN Severe 01/02/23 01/02/23 Pain (Scale Score 7-10) ondansetron HCl 2 mg/mL 4 mg IM Q4H PRN Nausea And Vomiting 01/02/23 01/02/23 intravenous solution ondansetron HCl 4 mg tablet 4 mg feeding tube Q4H PRN Nausea 01/02/23 01/02/23 And Vomiting oxycodone 5 mg tablet 5 mg feeding tube Q4H PRN Moderate 01/02/23 01/02/23 Pain (Scale Score 5-6) pyrimethamine 25 mg tablet 50 mg feeding tube QWEEK 01/02/23 01/02/23 scopolamine base 1 mg over 3 days 1 patch transdermal Q3D 01/02/23 01/02/23 transdermal patch sennosides 8.6 mg-docusate sodium 1 tab-cap PO BID 01/02/23 01/02/23 50 mg tablet (Senna with Docusate Sodium) sodium phosphates 19 gram-7 118 ml MO DAILY PRN Constipation 01/02/23 01/02/23 gram/118 mL enema (Fleet Enema) tramadol 50 mg tablet 25 mg PO Q4H PRN Pain 01/02/23 01/02/23 zinc sulfate 50 mg zinc (220 mg) 50 mg feeding tube BEDTIME 01/02/23 01/02/23 tablet Allergies Allergy/AdvReac Type Severity Reaction Status Date / Time cyclobenzaprine [Flexeril] Allergy Unknown Palpitation Verified 09/22/20 15:41 s Review of Systems Review of Systems: Yes Unobtainable due to mental status Neurologic: Denies Abnormal speech present [facility] Past Medical History Attestation statement: The following information was validated with the patient. Source: old records reviewed and nursing notes reviewed Medical History Appendicitis Chronic pain [employer] lymphoma Depression Encephalopathy H/O: RCT (rotator cuff tear) Kidney stone Mantle cell lymphoma Rectal bleeding Toxoplasmosis Surgical History History of appendectomy Family History Family History Mother COPD (chronic obstructive pulmonary disease) Sister Colon cancer Social History Social History Alcohol intake: never Patient Tobacco Use Status: Never used Tobacco Smoked in Last 30 Days: No Use of substances other than those prescribed or required for medical reasons: No Substance Use Type: Marijuana Advance Directives: No Advance Directives Information Provided: No service: No Current occupational status: unemployed Physical Exam Vital Signs: Vital Signs: Last Vital Signs Temp 101.2 F H 01/02/23 16:00 Pulse 121 H 05/21/23 16:00 Resp 15 01/02/23 16:00 BP 123/64 01/02/23 16:00 Pulse Ox 100 01/02/23 16:00 O2 Del Method Humidified O2, Tr ach Collar 01/02/23 16:00 O2 Flow Rate 8 01/02/23 16:00 Oxygen Flow Rate 8 01/02/23 11:18 BMI result Body Mass Index 19.8 Const: General: alert and ill appearing Limitations: altered mental status HEENT: Other: Tacky mucous membranes Head: Yes normal to inspection Ears: hearing grossly normal bilaterally and TM normal on the right Eyes: General: appearance normal, both eyes and all related structures Pupils: Equal, round and reactive pupils present Neck: Neck: Yes normal visual inspection, Yes full ROM, Yes no lymphadenopathy and Yes no meningeal signs Chest: Chest palpation & inspection: normal inspection of the chest Resp: Other: Coarse breath sounds, congested cough Cardio: Rate: regular rate Rhythm: regular rhythm Peripheral pulses: Peripheral pulses 2+ throughout GI: Inspection: Yes normal to inspection Palpation (GI): Soft to palpation and nontender Auscultation: normal bowel sounds Back/Spine/Pelvis: Other: Thoracic/Lumbar Spine: thoracic and lumbar spine normal to inspection Neuro: Other: Increased tone in all extremities General: no meningeal signs, normal sensation to monofilament and Unable to assess gait Cranial nerves: Yes Equal, round and reactive pupils present Speech: No Abnormal speech present Gait exam (Neuro): Unable to assess gait Extrem: General: Yes normal to inspection Course Course Course Narrative: +per nursing patient having watery diarrhea. Will send GI panel, cdiff stool studies. Labs show anemia unchanged from baseline. UA c.w with UTI. CXR negative for infection however coarse breath sounds with history of PNA in October during [facility] admission. Patient also has multiple wounds on hips/buttocks some of which have extensive tunneling. Will obtain CT chest/abdomen/pelvis to eval further. Reevaluation(s) Reevaluation #1: [id number]-Sign out to Ed FOSTER pending imaging Medications Administered Discontinued Medications Generic Name Dose Route Start Last Admin Trade Name Freq PRN Reason Stop Dose Admin Acetaminophen 650 mg 01/02/23 16:03 01/02/23 16:10 Acetaminophen Supp 650 Mg Supp.Rect MO 01/02/23 16:04 650 mg ONCE ONE Administration Ceftriaxone Sodium 1 gm/ 50 mls @ 100 mls/hr 01/02/23 11:19 01/02/23 12:23 Sodium Chloride IV 01/02/23 11:48 Infused ONCE ONE Infusion Sodium Chloride 1,000 mls @ 999 mls/hr 01/02/23 11:19 01/02/23 12:50 Ns IV 01/02/23 12:19 Infused .Q1H1M STA Infusion Iohexol 100 ml 01/02/23 15:08 01/02/23 15:08 Iohexol 350 Mg/Ml 100 Ml Infus..Btl IV 01/02/23 15:09 85 ml ONCE ONE Administration Medical Decision Making Medical Decision Making MDM Narrative: 52-year-old male coming from a long-term care facility with concern for fever with max temp of 103 degrees last evening. On arrival patient is alert, ill-appearing. Nonverbal at baseline. Do temp is 99.9 degrees arrival. Patient is tachycardic. Blood pressure normotensive. Patient unable to provide history of present illness. Will need labs including blood cultures and lactic acid, chest x-ray, EKG, UA, POC Differential Diagnosis Differential Diagnoses: The differential diagnosis associated with the presentation includes Pneumonia, UTI, cdiff, infectious diarrhea, osteomyelitis of wounds of buttocks/hips Low concern for meningitis, acute abdominal pathology, necrotizing fasciitis, cellulitis, Eileen's gangrene Admission/Observation Consideration of admission/observation: Escalation of care including admission/observation considered Admission for sepsis Consult Healthcare Provider Management of the patient was discussed with: Hospitalist Dr. Pineda @[phone] who accepted admission pending imaging Lab Data [facility] Lab Attestation statement: I reviewed the patient's lab results. 01/02/23 11:35 01/02/23 11:34 Labs: Lab Results 01/02/23 01/02/23 01/02/23 Range/Units 11:34 11:34 11:34 WBC (4.8-10.8) X10*3/uL RBC (4.60-5.80) X10*6/uL Hgb (14.0-18.0) g/dl Hct (42.0-52.0) % MCV (80.0-98.0) fL MCH (27.0-33.0) pg MCHC (31.0-36.0) g/dl RDW (11.0-16.0) % Plt Count (160-400) X10*3/uL MPV (9.4-12.4) fL Immature Gran % (Auto) (0.0-0.4) % Neut % (Auto) (45-73) % Lymph % (Auto) (20-40) % Snyder % (Auto) (2-11) % Eos % (Auto) (0-4) % Baso % (Auto) (0-2) % Lymph # (Auto) (1.2-4.9) X10*3/uL Snyder # (Auto) (0.1-1.2) X10*3/uL Eos # (Auto) (0.0-0.4) X10*3/uL Baso # (Auto) (0.0-0.2) X10*3/uL Abs Immat Gran (auto) (0.00-0.03) X10*3/uL Absolute Neuts (auto) (2.0-8.3) x10*3/uL Absolute Nucleated RBC (0.0-0.012) X10*3/uL Nucleated RBC % (auto) (0.0-0.2) /100WBC PT (10.0-13.1) SEC INR (0.9-1.1) Sodium 141 (135-145) mmol/L Potassium 3.6 (3.3-5.1) mmol/L Chloride 104 (96-108) mmol/L Carbon Dioxide 29 (22-29) mmol/L Anion Gap 12 (12-20) BUN 37 H (9-16) mg/dL Creatinine 0.74 (0.5-1.4) mg/dL Estim Creat Clear Calc 99.8 Estimated GFR > 60 POC Glucose (60-115) mg/dL Random Glucose 147 H (60-115) mg/dL Lactic Acid 1.4 (0.5-2.0) mmol/L Calcium 8.4 (8.4-10.2) mg/dL Magnesium 2.0 (1.6-2.6) mg/dL Total Bilirubin 0.5 (0.0-1.0) mg/dL Direct Bilirubin 0.2 (0.0-0.5) mg/dL AST 18 (5-37) U/L ALT 29 (0-40) U/L Alkaline Phosphatase 217 H (39-117) U/L Troponin I High Sens 4.0 (<3.5-35.0) ng/L Total Protein 5.8 L (6.5-8.0) g/dL Albumin 3.1 L (3.5-5.0) g/dL Urine Color Urine Appearance Urine pH (5.0-9.0) Ur Specific [place] (1.005-1.025) Urine Protein (Neg-Trace) mg/dL Urine Glucose (UA) (Negative) mg/dL Urine Ketones (Negative) mg/dL Urine Blood (Negative) Urine Nitrite (Negative) Ur Leukocyte Esterase (Negative) Urine RBC (0-2) /HPF Urine WBC (0-5) /HPF Ur Squamous Epith Cells (0-2) /HPF Urine Bacteria (None Seen) Hyaline Casts (0-2) /LPF Influenza Type A (PCR) (Negative) Influenza Type B (PCR) (Negative) RSV RNA Qual (PCR) (Negative) SARS-CoV-2 RNA (RT-PCR) (Negative) 01/02/23 01/02/23 01/02/23 Range/Units 11:35 11:35 11:35 WBC 10.4 (4.8-10.8) X10*3/uL RBC 3.51 L (4.60-5.80) X10*6/uL Hgb 9.5 L (14.0-18.0) g/dl Hct 31.2 L (42.0-52.0) % MCV 88.9 (80.0-98.0) fL MCH 27.1 (27.0-33.0) pg MCHC 30.4 L (31.0-36.0) g/dl RDW 17.2 H (11.0-16.0) % Plt Count 188 (160-400) X10*3/uL MPV 9.6 (9.4-12.4) fL Immature Gran % (Auto) 0.4 (0.0-0.4) % Neut % (Auto) 78.8 H (45-73) % Lymph % (Auto) 6.6 L (20-40) % Snyder % (Auto) 13.8 H (2-11) % Eos % (Auto) 0.3 (0-4) % Baso % (Auto) 0.1 (0-2) % Lymph # (Auto) 0.7 L (1.2-4.9) X10*3/uL Snyder # (Auto) 1.4 H (0.1-1.2) X10*3/uL Eos # (Auto) 0.0 (0.0-0.4) X10*3/uL Baso # (Auto) 0.0 (0.0-0.2) X10*3/uL Abs Immat Gran (auto) 0.04 H (0.00-0.03) X10*3/uL Absolute Neuts (auto) 8.2 (2.0-8.3) x10*3/uL Absolute Nucleated RBC 0.000 (0.0-0.012) X10*3/uL Nucleated RBC % (auto) 0.0 (0.0-0.2) /100WBC PT 14.3 H (10.0-13.1) SEC INR 1.2 H (0.9-1.1) Sodium (135-145) mmol/L Potassium (3.3-5.1) mmol/L Chloride (96-108) mmol/L Carbon Dioxide (22-29) mmol/L Anion Gap (12-20) BUN (9-16) mg/dL Creatinine (0.5-1.4) mg/dL Estim Creat Clear Calc Estimated GFR POC Glucose (60-115) mg/dL Random Glucose (60-115) mg/dL Lactic Acid (0.5-2.0) mmol/L Calcium (8.4-10.2) mg/dL Magnesium (1.6-2.6) mg/dL Total Bilirubin (0.0-1.0) mg/dL Direct Bilirubin (0.0-0.5) mg/dL AST (5-37) U/L ALT (0-40) U/L Alkaline Phosphatase (39-117) U/L Troponin I High Sens (<3.5-35.0) ng/L Total Protein (6.5-8.0) g/dL Albumin (3.5-5.0) g/dL Urine Color Urine Appearance Urine pH (5.0-9.0) Ur Specific [place] (1.005-1.025) Urine Protein (Neg-Trace) mg/dL Urine Glucose (UA) (Negative) mg/dL Urine Ketones (Negative) mg/dL Urine Blood (Negative) Urine Nitrite (Negative) Ur Leukocyte Esterase (Negative) Urine RBC (0-2) /HPF Urine WBC (0-5) /HPF Ur Squamous Epith Cells (0-2) /HPF Urine Bacteria (None Seen) Hyaline Casts (0-2) /LPF Influenza Type A (PCR) NEGATIVE (Negative) Influenza Type B (PCR) NEGATIVE (Negative) RSV RNA Qual (PCR) NEGATIVE (Negative) SARS-CoV-2 RNA (RT-PCR) NEGATIVE (Negative) 01/02/23 01/02/23 Range/Units 13:11 13:26 WBC (4.8-10.8) X10*3/uL RBC (4.60-5.80) X10*6/uL Hgb (14.0-18.0) g/dl Hct (42.0-52.0) % MCV (80.0-98.0) fL MCH (27.0-33.0) pg MCHC (31.0-36.0) g/dl RDW (11.0-16.0) % Plt Count (160-400) X10*3/uL MPV (9.4-12.4) fL Immature Gran % (Auto) (0.0-0.4) % Neut % (Auto) (45-73) % Lymph % (Auto) (20-40) % Snyder % (Auto) (2-11) % Eos % (Auto) (0-4) % Baso % (Auto) (0-2) % Lymph # (Auto) (1.2-4.9) X10*3/uL Snyder # (Auto) (0.1-1.2) X10*3/uL Eos # (Auto) (0.0-0.4) X10*3/uL Baso # (Auto) (0.0-0.2) X10*3/uL Abs Immat Gran (auto) (0.00-0.03) X10*3/uL Absolute Neuts (auto) (2.0-8.3) x10*3/uL Absolute Nucleated RBC (0.0-0.012) X10*3/uL Nucleated RBC % (auto) (0.0-0.2) /100WBC PT (10.0-13.1) SEC INR (0.9-1.1) Sodium (135-145) mmol/L Potassium (3.3-5.1) mmol/L Chloride (96-108) mmol/L Carbon Dioxide (22-29) mmol/L Anion Gap (12-20) BUN (9-16) mg/dL Creatinine (0.5-1.4) mg/dL Estim Creat Clear Calc Estimated GFR POC Glucose 107 (60-115) mg/dL Random Glucose (60-115) mg/dL Lactic Acid (0.5-2.0) mmol/L Calcium (8.4-10.2) mg/dL Magnesium (1.6-2.6) mg/dL Total Bilirubin (0.0-1.0) mg/dL Direct Bilirubin (0.0-0.5) mg/dL AST (5-37) U/L ALT (0-40) U/L Alkaline Phosphatase (39-117) U/L Troponin I High Sens (<3.5-35.0) ng/L Total Protein (6.5-8.0) g/dL Albumin (3.5-5.0) g/dL Urine Color Yellow Urine Appearance Clear Urine pH 5.5 (5.0-9.0) Ur Specific [place] 1.020 (1.005-1.025) Urine Protein 100 (2+) H (Neg-Trace) mg/dL Urine Glucose (UA) Negative (Negative) mg/dL Urine Ketones Negative (Negative) mg/dL Urine Blood Small (1+) H (Negative) Urine Nitrite Positive H (Negative) Ur Leukocyte Esterase Moderate (2+) H (Negative) Urine RBC 3-5 H (0-2) /HPF Urine WBC 6-10 (0-5) /HPF Ur Squamous Epith Cells 0-2 (0-2) /HPF Urine Bacteria Trace (None Seen) Hyaline Casts 3-5 (0-2) /LPF Influenza Type A (PCR) (Negative) Influenza Type B (PCR) (Negative) RSV RNA Qual (PCR) (Negative) SARS-CoV-2 RNA (RT-PCR) (Negative) Independent Interpretation I performed an independent interpretation of an: EKG and Plain X-Ray Interpretation: I independently reviewed the EKG which shows sinus tachycardia with a rate of 104, normal MO, normal QRS, normal QT I independetetwly reviewed the chest x-ray and agree with the radiologist's report Radiology Impression Discussion of test interpretation with radiology: I have reviewed the radiologist's reading. Radiologist Impression: [id number] [place] [address] XRay Report Signed Patient: Marino Kaminski MR#: [id number] : 1970 Acct:[id number] Age/Sex: 52 / M ADM Date: 01/02/23 Loc: .ED Attending Dr: Ordering Physician: Humaira Teresa NP Date of Service: 01/02/23 Procedure(s): XR chest 1V Accession Number(s): [id number] cc: Humaira Teresa NP~ EXAMINATION: XR CHEST CLINICAL INFORMATION: Fever. COMPARISON: 07/17/2021 chest radiograph. TECHNIQUE: Frontal view of the chest was obtained. FINDINGS: A tracheostomy tube is noted in place. No significant abnormality is noted involving the heart, lungs, mediastinum, bony thorax or soft tissues. XR/XR chest 1V IMPRESSION: No acute cardiopulmonary process. ? Independent Historian Clinical information obtained from an independent historian. History obtained from or confirmed by: EMS Discharge Plan Discharge Clinical Impression: Anemia, Acute UTI, Fever, Diarrhea Patient Disposition: Admitted As Inpatient
[2023-01-02 11:39] LABS: MANUAL DIFF FLAG NO
[2023-01-02 11:43] LABS: Basophils Percent Auto 0.1 % (0-2); Eosinophils Percent Auto 0.3 % (0-4); Hematocrit 31.2 % (42.0-52.0); Hemoglobin 9.5 g/dl (14.0-18.0); Imm Gran Abs Auto 0.04 X10*3/uL (0.00-0.03); Imm Gran Pct Auto 0.4 % (0.0-0.4); Lymphocytes Absolute Auto 0.7 X10*3/uL (1.2-4.9); Lymphocytes Percent Auto 6.6 % (20-40); Mean Corpuscular HGB Conc 30.4 g/dl (31.0-36.0); Mean Corpuscular Hemoglobin 27.1 pg (27.0-33.0); Mean Corpuscular Volume 88.9 fL (80.0-98.0); Mean Platelet Volume 9.6 fL (9.4-12.4); Monocytes Absolute Auto 1.4 X10*3/uL (0.1-1.2); Monocytes Percent Auto 13.8 % (2-11); Neutrophils Absolute Auto 8.2 x10*3/uL (2.0-8.3); Neutrophils Percent Auto 78.8 % (45-73); Platelet Count 188 X10*3/uL (160-400); Red Blood Count 3.51 X10*6/uL (4.60-5.80); Red Cell Distribution Width 17.2 % (11.0-16.0); White Blood Count 10.4 X10*3/uL (4.8-10.8)
[2023-01-02] MEDS: 0.9 % Sodium Chloride 1,000 ML 999 ML IV (11:43)
--- NOTE | 2023-01-02 11:45 | PC.NURSE ---
pt LATIA from [facility]. staff reporting pt with 103 temp last night, given tylenol and ibuprofen, pt woke with 102 temp this AM. staff reporting pt understands Turkmen and has in the past been able to answer yes/no questions and will point in order to communicate... staff reporting pt with decreased responsiveness. pt arrived to room 5 with 20G IV placed in R wrist. pt with 99.9 rectal temp, warm to the touch. pt contracted. multiple wounds of varing stages noted to pts legs, buttock and back. pt with pressure boots on as well as R hand wrap. pt meets sepsis protocol. Blood cultures and labs drawn, sent to lab. VSS
[2023-01-02 11:46] LABS: INTERNATIONAL NORM RATIO 1.2 (0.9-1.1); Prothrombin Time 14.3 SEC (10.0-13.1)
[2023-01-02] MEDS: cefTRIAXone sodium 1 GM in 0.9 % Sodium Chloride 50 ML IV (11:50)
[2023-01-02 11:56] LABS: Lactic Acid 1.4 mmol/L (0.5-2.0)
[2023-01-02 12:02] LABS: Alanine Aminotransferase 29 U/L (0-40); Albumin Level 3.1 g/dL (3.5-5.0); Alkaline Phosphatase 217 U/L (39-117); Anion Gap 12 (12-20); Aspartate Amino Transferase 18 U/L (5-37); Bilirubin Direct 0.2 mg/dL (0.0-0.5); Bilirubin Total 0.5 mg/dL (0.0-1.0); Blood Urea Nitrogen 37 mg/dL (9-16); Calcium 8.4 mg/dL (8.4-10.2); Carbon Dioxide 29 mmol/L (22-29); Chloride 104 mmol/L (96-108); Creatinine Clr Calc Pharmacy 99.8; Estimated Glomerular Filt Rate > 60; Glucose Random 147 mg/dL (60-115); Potassium 3.6 mmol/L (3.3-5.1); Sodium 141 mmol/L (135-145); Total Protein 5.8 g/dL (6.5-8.0)
[2023-01-02 12:18] LABS: Influenza A PCR NEGATIVE (Negative); Influenza B PCR NEGATIVE (Negative); Resp Syncy Virus RNA Qual PCR NEGATIVE (Negative); SARS COV2 PCR INHOUSE NEGATIVE (Negative)
[2023-01-02 13:17] LABS: Appearance Urine Clear; Color Urine Yellow; Glucose Urine UA Negative (Negative); Leukocyte Esterase Urine Moderate (2+) (Negative); Nitrite Urine Positive (Negative); PH 5.5 (5.0-9.0); UMIC TRIGGER UACC YES; Urine Blood Small (1+) (Negative); Urine Ketones Negative (Negative); Urine Protein 100 (2+) mg/dL (Neg-Trace)
--- NOTE | 2023-01-02 13:27 | PC.NURSE ---
deep suctioning completed by RT at bedside as pt has wet sounding cough. no sputum production from suctioning. will continue to monitor.
[2023-01-02 13:30] LABS: Glucose, Whole Blood 107 mg/dL (60-115)
[2023-01-02 13:37] LABS: Bacteria Urine Trace (None Seen); Squamous Epithelial Cell Urine 0-2 /HPF (0-2); UACC Culture Trigger YES
--- NOTE | 2023-01-02 14:54 | PHA.MEDREC ---
Addendum entered by Adam Bowden, [facility] 01/02/23 18:15: PATIENT ALSO TAKES PYRIMETHAMINE 50MG Q WEEKLY BUT HAS BEEN ON HOLD SINCE 12/17 Original Note: Pharmacy Consult ? Medication Reconciliation Pharmacy has completed the medication reconciliation. Patient came in with medical records and med list from [facility].
[2023-01-02] MEDS: iohexoL 350 MG/ML 100 ML INFUS..BTL IV (15:08)
--- NOTE | 2023-01-02 15:20 | PC.NURSE ---
SPENSER stage 4 pressure injuries noted to pts hips. stage 3 noted to pts buttocks. both stage 4 injuries had been packed - pt became incontinent of stool and all dressings and packing required removal. new sponge dressing pads applied (vilma yu).
[2023-01-02] MEDS: Acetaminophen Supp 650 MG SUPP.RECT PR (16:10)
--- NOTE | 2023-01-02 16:48 | PM.IMHP ---
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 Pt is nonverbal and bed-bound at baseline, but is Mosotho-understanding. HPI primarily taken from chart and provider review. Staff at facility apparently noted patient to have a fever up to 103 since last night, and patient was less responsive than normal this morning. Patient has also been experiencing diarrhea lately. When asked about pain, patient endorses abdominal pain by pointing to his periumbilical area. Pt unresponsive to endorsing or denying any other symptoms. In the ED was febrile at 101.2, tachycardic up to 121. Labs were significant for stable H&H of 9.5/31.2, BUN slightly above baseline at 37, alk-phos of 217. Troponin negative. Lactic acid WNL at 1.4. Electrolytes normal. UA positive for UTI. Positive for C diff. Stool panel pending. Tested negative for influenza type a and B, RSV, COVID. CXR showed no acute cardiopulmonary process. CT?of abdomen pelvis found bilateral penetrating ulcers underlying the hips with with speech periosteal reaction to the right and left greater trochanters possible of early osteomyelitis, and moderately severe ascending colitis from rectum to mid ascending colon without obstruction, perforation, free air. CT of chest found no lobular consolidation or effusion with minimal dependent consolidation at the left base likely atelectasis. EKG demonstrated sinus tachycardia of 104 with no evidence of ST elevations or depressions. Pt was treated with ceftriaxone, acetaminophen, and IVF. Pt will be admitted to the hospital for treatment further evaluation of C diff colitis and possible osteomyelitis of the pelvis. 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 lymphoma Depression Encephalopathy H/O: RCT (rotator cuff tear) Kidney stone Mantle cell lymphoma Rectal bleeding Toxoplasmosis Family History Mother COPD (chronic obstructive pulmonary disease) Sister Colon cancer Surgical History History of appendectomy Social History Household Members: None Housing: Intermediate Do you presently have visiting nurse or other home services: No Unable to assess alcohol history related to: Unable to respond Alcohol intake: never Patient Tobacco Use Status: Never used Tobacco Smoked in Last 30 Days: No Use of substances other than those prescribed or required for medical reasons: Unable to respond Substance Use Type: Marijuana Currently Displaying Signs/Symptoms of Drug Intoxication Withdrawal: No Advance Directives: No Advance Directives Information Provided: No Do you have thoughts of harming others: None Do you have a plan to hurt others: No Plan Recently lost weight without trying: Unsure Nutrition Risks: Receiving home tube feeding or CPN Poor oral hygiene: No service: No Current occupational status: unemployed Meds Allergies Allergy/AdvReac Type Severity Reaction Status Date / Time cyclobenzaprine [Flexeril] Allergy Unknown Palpitation Verified 09/22/20 15:41 s Active Medications: Current Medications Pharmacy Consult (Consult Rx Perform Med Rec) 1 each MISCELLANE ONCE PRN PRN Reason: Consult order Home Medications Medication Instructions Recorded Confirmed Last Taken Type acetaminophen 325 mg tablet 650 mg feeding tube Q4H PRN Fever 01/02/23 01/02/23 01/02/23 08:00 History Or Pain acetaminophen 650 mg rectal 650 mg OR Q4-6H PRN fever or pain 01/02/23 01/02/23 Unknown History suppository albuterol sulfate 2.5 mg/3 mL 2.5 mg inhalation Q4H PRN 01/02/23 01/02/23 Unknown History (0.083 %) solution for nebulization Shortness Of Breath Or Wheezing ascorbic acid (vitamin C) 250 mg 250 mg feeding tube DAILY 01/02/23 01/02/23 01/02/23 08:00 History tablet atovaquone 750 mg/5 mL oral 750 mg feeding tube BID 01/02/23 01/02/23 01/02/23 08:00 History suspension baclofen 10 mg tablet 5 mg feeding tube TID 01/02/23 01/02/23 01/02/23 05:22 History bisacodyl 10 mg rectal suppository 10 mg OR DAILY PRN Constipation 01/02/23 01/02/23 Unknown History chlorhexidine gluconate 0.12 % 15 ml buccal BID 01/02/23 01/02/23 01/02/23 08:00 History mouthwash cholecalciferol (vitamin D3) 1,250 1,250 mcg feeding tube QMONTH 01/02/23 01/02/23 12/27/22 History mcg (50,000 unit) tablet cholestyramine-aspartame 4 gram 4 g feeding tube DAILY 01/02/23 01/02/23 01/02/23 08:00 History oral powder for susp in a packet (Cholestyramine Light) collagenase clostridium histo. 250 1 appl topical BID 01/02/23 01/02/23 01/02/23 08:00 History unit/gram topical ointment doxazosin 1 mg tablet 1 mg feeding tube BEDTIME 01/02/23 01/02/23 01/02/23 08:00 History famotidine 20 mg tablet 20 mg feeding tube BID 01/02/23 01/02/23 01/02/23 08:00 History ferrous sulfate 300 mg (60 mg 300 mg feeding tube DAILY 01/02/23 01/02/23 01/02/23 08:00 History iron)/5 mL oral liquid finasteride 5 mg tablet 5 mg feeding tube DAILY 01/02/23 01/02/23 01/02/23 08:00 History glycopyrrolate 1 mg tablet 1 mg feeding tube TID 01/02/23 01/02/23 01/02/23 05:00 History guaifenesin 200 mg/5 mL oral liquid 200 mg feeding tube Q4H PRN Cough 01/02/23 01/02/23 Unknown History lacosamide 200 mg tablet 200 mg feeding tube BID 01/02/23 01/02/23 01/02/23 08:00 History leucovorin calcium 25 mg tablet 25 mg feeding tube BEDTIME 01/02/23 01/02/23 Unknown History loperamide 2 mg capsule 2 mg feeding tube Q4H PRN Diarrhea 01/02/23 01/02/23 Unknown History lorazepam 0.5 mg tablet 0.5 mg feeding tube Q6H PRN Anxiety 01/02/23 01/02/2323 00:48 History lorazepam 2 mg/mL injection See Rx Instructions .Route .COMPLEX 01/02/23 01/02/23 Unknown History solution magnesium hydroxide 400 mg/5 mL 30 ml feeding tube DAILY PRN 01/02/23 01/02/23 Unknown History oral suspension (Milk of Magnesia) Constipation melatonin 3 mg tablet 3 mg feeding tube BEDTIME 01/02/23 01/02/23 Unknown History midodrine 5 mg tablet 7.5 mg feeding tube TID 01/02/23 01/02/23 01/02/23 05:00 History morphine 10 mg/5 mL oral solution 5 mg feeding tube BID 01/02/23 01/02/23 01/02/23 08:00 History morphine 10 mg/5 mL oral solution 5 mg feeding tube Q6H PRN Severe 01/02/23 01/02/23 Unknown History Pain (Scale Score 7-10) ondansetron HCl 2 mg/mL 4 mg IM Q4H PRN Nausea And Vomiting 01/02/23 01/02/23 Unknown History intravenous solution ondansetron HCl 4 mg tablet 4 mg feeding tube Q4H PRN Nausea 01/02/23 01/02/23 Unknown History And Vomiting oxycodone 5 mg tablet 5 mg feeding tube Q4H PRN Moderate 01/02/23 01/02/23 Unknown History Pain (Scale Score 5-6) scopolamine base 1 mg over 3 days 1 patch transdermal Q3D 01/02/23 01/02/23 Unknown History transdermal patch sennosides 8.6 mg-docusate sodium 1 tab-cap PO BID 01/02/23 01/02/23 01/02/23 08:00 History 50 mg tablet (Senna with Docusate Sodium) sodium phosphates 19 gram-7 118 ml OR DAILY PRN Constipation 01/02/23 01/02/23 Unknown History gram/118 mL enema (Fleet Enema) tramadol 50 mg tablet 25 mg PO Q4H PRN Pain 01/02/23 01/02/23 Unknown History zinc sulfate 50 mg zinc (220 mg) 50 mg feeding tube BEDTIME 01/02/23 01/02/23 Unknown History tablet Physical Exam Vital Signs and Narrative: Vital Signs: Last Vital Signs Temp 101.2 F H 01/02/23 16:00 Pulse 121 H 01/02/23 16:00 Resp 15 01/02/23 16:00 BP 123/64 01/02/23 16:00 Pulse Ox 100 01/02/23 16:00 O2 Del Method Humidified O2, Tr ach Collar 01/02/23 16:00 O2 Flow Rate 8 01/02/23 16:00 Oxygen Flow Rate 8 01/02/23 11:18 BMI result Body Mass Index 19.8 Constitutional: Alert, ill-appearing, nonverbal at baseline. Eyes: Pupils are equal, round, and reactive to light. Ear, Nose, and Throat: Patient with trach in place with overlying trach mask. Respiratory: Diffuse coarse expiratory rhonchi. Cardiovascular: S1, S2, tachycardic . No murmurs, rubs, or gallops. Gastrointestinal: Abdomen soft, non-distended with diffuse tenderness. G-Tube in place. Normal bowel sounds. Skin: Bilateral stage IV penetrating decubitus ulcers. Multiple other wounds buttocks and groin. See pictures below Musculoskeletal: Legs and arms contracted with limited ROM. Heel boots in place bilaterally. Extremities: No edema. Results Labs 01/02/23 11:35 01/02/23 11:34 Labs: Laboratory Results - last 24 hr 01/02/23 01/02/23 01/02/23 11:34 11:34 11:34 MCV MCH MCHC RDW Plt Count MPV Immature Gran % (Auto) Neut % (Auto) Lymph % (Auto) [place] % (Auto) Eos % (Auto) Baso % (Auto) Lymph # (Auto) [place] # (Auto) Eos # (Auto) Baso # (Auto) Abs Immat Gran (auto) Absolute Neuts (auto) Absolute Nucleated RBC Nucleated RBC % (auto) PT INR Anion Gap 12 Estim Creat Clear Calc 99.8 Estimated GFR > 60 POC Glucose Random Glucose 147 H Lactic Acid 1.4 Calcium 8.4 Magnesium 2.0 Total Bilirubin 0.5 Direct Bilirubin 0.2 AST 18 ALT 29 Alkaline Phosphatase 217 H Troponin I High Sens 4.0 Total Protein 5.8 L Albumin 3.1 L Urine Color Urine Appearance Urine pH Ur Specific [place] Urine Protein Urine Glucose (UA) Urine Ketones Urine Blood Urine Nitrite Ur Leukocyte Esterase Urine RBC Urine WBC Ur Squamous Epith Cells Urine Bacteria Hyaline Casts Influenza Type A (PCR) Influenza Type B (PCR) RSV RNA Qual (PCR) SARS-CoV-2 RNA (RT-PCR) 01/02/23 01/02/23 01/02/23 11:35 11:35 11:35 MCV 88.9 MCH 27.1 MCHC 30.4 L RDW 17.2 H Plt Count 188 MPV 9.6 Immature Gran % (Auto) 0.4 Neut % (Auto) 78.8 H Lymph % (Auto) 6.6 L [place] % (Auto) 13.8 H Eos % (Auto) 0.3 Baso % (Auto) 0.1 Lymph # (Auto) 0.7 L [place] # (Auto) 1.4 H Eos # (Auto) 0.0 Baso # (Auto) 0.0 Abs Immat Gran (auto) 0.04 H Absolute Neuts (auto) 8.2 Absolute Nucleated RBC 0.000 Nucleated RBC % (auto) 0.0 PT 14.3 H INR 1.2 H Anion Gap Estim Creat Clear Calc Estimated GFR POC Glucose Random Glucose Lactic Acid Calcium Magnesium Total Bilirubin Direct Bilirubin AST ALT Alkaline Phosphatase Troponin I High Sens Total Protein Albumin Urine Color Urine Appearance Urine pH Ur Specific [place] Urine Protein Urine Glucose (UA) Urine Ketones Urine Blood Urine Nitrite Ur Leukocyte Esterase Urine RBC Urine WBC Ur Squamous Epith Cells Urine Bacteria Hyaline Casts Influenza Type A (PCR) NEGATIVE Influenza Type B (PCR) NEGATIVE RSV RNA Qual (PCR) NEGATIVE SARS-CoV-2 RNA (RT-PCR) NEGATIVE 01/02/23 01/02/23 13:11 13:26 MCV MCH MCHC RDW Plt Count MPV Immature Gran % (Auto) Neut % (Auto) Lymph % (Auto) [place] % (Auto) Eos % (Auto) Baso % (Auto) Lymph # (Auto) [place] # (Auto) Eos # (Auto) Baso # (Auto) Abs Immat Gran (auto) Absolute Neuts (auto) Absolute Nucleated RBC Nucleated RBC % (auto) PT INR Anion Gap Estim Creat Clear Calc Estimated GFR POC Glucose 107 Random Glucose Lactic Acid Calcium Magnesium Total Bilirubin Direct Bilirubin AST ALT Alkaline Phosphatase Troponin I High Sens Total Protein Albumin Urine Color Yellow Urine Appearance Clear Urine pH 5.5 Ur Specific [place] 1.020 Urine Protein 100 (2+) H Urine Glucose (UA) Negative Urine Ketones Negative Urine Blood Small (1+) H Urine Nitrite Positive H Ur Leukocyte Esterase Moderate (2+) H Urine RBC 3-5 H Urine WBC 6-10 Ur Squamous Epith Cells 0-2 Urine Bacteria Trace Hyaline Casts 3-5 Influenza Type A (PCR) Influenza Type B (PCR) RSV RNA Qual (PCR) SARS-CoV-2 RNA (RT-PCR) Imaging Radiologist's Impressions: Impressions Chest X-Ray 01/02/23 11:53 IMPRESSION: No acute cardiopulmonary process. Assessment and Plan (1) C. 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 CT positive for colitis and likely osteomyelitis of pelvis. Patient be admitted to the hospital for treatment further evaluation of C diff colitis and likely osteomyelitis of the pelvis. Colitis CT of abdomen and pelvis showed moderately severe ascending colitis from rectum to mid ascending colon without obstruction, perforation, free air Patient experiencing abdominal pain and diarrhea Patient tested positive for C diff, GI panel pending Patient will be covered by vancomycin p.o. and Flagyl Contact and droplet precautions ID consult Question of osteomyelitis of greater trochanters CT of abdomen pelvis found bilateral penetrating ulcers underlying the hips with with speech periosteal reaction to the right and left greater trochanters possible of early osteomyelitis C reactive protein 9.46 Check ESR Patient will be covered by vancomycin IV ID consult Question of UTI Patient with chronic Rubio catheter in place UA positive for nitrates and moderate amount of leukocyte esterase, WBC of 6 to 10, and trace urine bacteria Patient initially given ceftriaxone in the ED Patient now will be given vanc and Zosyn Follow cultures Sepsis Patient meets sepsis criteria: Temperature of 101.8 degrees, tachycardia Lactic acid WNL at 1.4 Not severe sepsis Patient has received IVF resuscitation in ED and is covered by broad-spectrum antibiotics Stage IV decubitus ulcers Patient has bilateral penetrating stage IV decubitus ulcers on buttocks Air loss mattress Patient positioning q2h General surgery consult Wound care consult Diet Pt has G-tube in place Osmolite 1.5, Prosource, Brice, Fiber Stage IV mantle cell lymphoma Continue Leucovorin BPH/urinary retention Patient with chronic Rubio in place Continue finasteride, doxazosin Seizure disorder Continue lacosamide Hypotension Continue midrodine GERD Continue famotidine Full Code Attending:?Dr. Chen DVT Prophylaxis: Lovenox Pt will require a hospitalization of at least two nights for treatment of C diff colitis and likely osteomyelitis with IV and oral antibiotics and specialist consults. Time Spent With Patient Time: Total time managing care of this patient today ____ minutes. Quality Stroke Does the patient have a stroke diagnosis?: No VTE Prior VTE?: No VTE Risk Level:: Medical - moderate - high VTE Device Contraindication: Treatment Not Indicated VTE Drug Contraindication: N/A - Med Ordered
[2023-01-02] MEDS: Piperacillin Sodium/Tazobactam 3.375 GM in 0.9 % Sodium Chloride 50 ML IV (17:29)
[2023-01-02 17:46] LABS: C Reactive Protein 9.46 mg/dL (< or = 0.50)
--- NOTE | 2023-01-02 17:55 | PM.EVENT ---
Event Note Date of Service: 01/03/23 Event Note: The patient was seen and evaluated with KRISTIN Parra. I agree with his note, assessment and plan with the following. 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 patient is non verbal. found to have sepsis 2/2 CDIFF colitis , Multiple decubetus wounds with possible OM. Started broad spectrum antibiotics, get surgery and ID evaluation, wound nurse. Start tube feeding wound care and rotation Rest of evaluations by PA note. Time Spent With Patient Time: Total time managing care of this patient today ____ minutes.
[2023-01-02] MEDS: vancomycin HCL 1,500 MG in 0.9 % Sodium Chloride 500 ML 333.33 MG IV (18:06)
[2023-01-02 18:33] LABS: CDiff Gene PCR POSITIVE (Negative)
[2023-01-02] MEDS: Enoxaparin Sodium 40 MG/0.4 ML SYRINGE SUBCUT (18:42)
--- NOTE | 2023-01-02 18:51 | PC.NURSE ---
tube feeding started at 1851 at 50ml/hr.
[2023-01-02 18:59] LABS: CDiff Toxin Positive (Negative)
[2023-01-02 19:00] LABS: CDIFF Internal ctrl Dots and bkg OK (V)
[2023-01-02] MEDS: metroNIDAZOLE/NS 500 MG/100 ML PIGGYBACK 100 MG IV (20:06)
[2023-01-02] MEDS: Lacosamide Oral Solution 100 MG/10 ML SOLUTION 200 MG G-TUBE (22:15)
[2023-01-02] MEDS: Atovaquone 750 MG/5 ML ORAL.SUSP G-TUBE (22:15)
[2023-01-02] MEDS: Chlorhexidine Gluc Oral Rinse 15 ML MOUTHWASH BUCCAL (22:15)
[2023-01-02] MEDS: Famotidine 20 MG TABLET G-TUBE (22:16)
[2023-01-02] MEDS: Baclofen 10 MG TABLET 5 MG G-TUBE (22:16)
[2023-01-02] MEDS: Melatonin 3 MG TABLET G-TUBE (22:16)
[2023-01-02] MEDS: Glycopyrrolate 1 MG TABLET G-TUBE (22:16)
[2023-01-02] MEDS: Doxazosin Mesylate 1 MG TABLET G-TUBE (22:16)
[2023-01-02] MEDS: vancomycin HCL 125 MG CAPSULE PO (22:16)
[2023-01-02] MEDS: 0.9 % Sodium Chloride Flush 3 ML SYRINGE IVFLUSH (22:16)
[2023-01-03] VITALS (8 sets, daily range): BP systolic 107–115; BP diastolic 56–64; PULSE 104–116; RESP 18–22; TEMP 36.6–38.6; O2SAT 91–94; BMI 20.5
[2023-01-03] MEDS: metroNIDAZOLE/NS 500 MG/100 ML PIGGYBACK 100 MG IV ×3 (03:18→18:17)
[2023-01-03] MEDS: vancomycin HCL 1,000 MG in 0.9 % Sodium Chloride 250 ML 270 MG IV ×2 (05:26→18:01)
[2023-01-03 06:55] LABS: Hematocrit 30.4 % (42.0-52.0); Hemoglobin 9.5 g/dl (14.0-18.0); Mean Corpuscular HGB Conc 31.3 g/dl (31.0-36.0); Mean Corpuscular Hemoglobin 27.9 pg (27.0-33.0); Mean Corpuscular Volume 89.4 fL (80.0-98.0); Mean Platelet Volume 10.6 fL (9.4-12.4); Platelet Count 185 X10*3/uL (160-400); Red Cell Distribution Width 17.1 % (11.0-16.0); White Blood Count 7.8 X10*3/uL (4.8-10.8)
[2023-01-03 07:23] LABS: Campylobacter Not Detected (Not Detect.); E. coli EAEC Not Detected (Not Detect.); E. coli EPEC Not Detected (Not Detect.); E. coli ETEC Not Detected (Not Detect.); E. coli STEC Not Detected (Not Detect.); Plesiomonas shigelloides Not Detected (Not Detect.); Salmonella Not Detected (Not Detect.); Vibrio Not Detected (Not Detect.); Vibrio Cholerae Not Detected (Not Detect.); Yersinia enterocolitica Not Detected (Not Detect.)
[2023-01-03 07:24] LABS: Adenovirus F 40/41 Not Detected (Not Detect.); Astrovirus Not Detected (Not Detect.); Cryptosporidium Not Detected (Not Detect.); Cyclospora cayetanensis Not Detected (Not Detect.); Entamoeba histolytica Not Detected (Not Detect.); Giardia lamblia Not Detected (Not Detect.); Norovirus GI/GII Not Detected (Not Detect.); Rotavirus A Not Detected (Not Detect.); Sapovirus Not Detected (Not Detect.); Shigella sp./EIEC Not Detected (Not Detect.)
[2023-01-03 08:55] LABS: Creatinine Clr Calc Pharmacy 100.4; Estimated Glomerular Filt Rate > 60
[2023-01-03] MEDS: Atovaquone 750 MG/5 ML ORAL.SUSP G-TUBE ×2 (09:06→22:52)
[2023-01-03] MEDS: Chlorhexidine Gluc Oral Rinse 15 ML MOUTHWASH BUCCAL ×2 (09:06→22:52)
[2023-01-03] MEDS: 0.9 % Sodium Chloride Flush 3 ML SYRINGE IVFLUSH ×3 (09:06→19:46)
[2023-01-03] MEDS: Lacosamide Oral Solution 100 MG/10 ML SOLUTION 200 MG G-TUBE ×2 (09:06→22:52)
[2023-01-03] MEDS: Baclofen 10 MG TABLET 5 MG G-TUBE ×3 (09:07→22:51)
[2023-01-03] MEDS: Cholestyramine (With Sugar) 4 GM POWD.PACK G-TUBE (09:07)
[2023-01-03] MEDS: Finasteride 5 MG TABLET PO (09:07)
[2023-01-03] MEDS: Glycopyrrolate 1 MG TABLET G-TUBE ×3 (09:07→22:52)
[2023-01-03] MEDS: Famotidine 20 MG TABLET G-TUBE ×2 (09:08→22:52)
[2023-01-03] MEDS: Midodrine HCl 2.5 MG TABLET 7.5 MG G-TUBE ×3 (09:08→17:43)
--- NOTE | 2023-01-03 09:45 | MHC.CM.PN ---
spoke with pts hcp gabriel ang confirms pt is a lt resident of [facility] where he will return when dcd
--- NOTE | 2023-01-03 10:05 | P.CONGS_ITS ---
History of Present Illness Consult details Consult date: 01/03/23 Requesting physician: Giig Stinson Narrative: 52-year-old male patient with multiple medical problems including stage IV mantle cell lymphoma, [employer] toxoplasmosis, acute and chronic respiratory failure with trach placement, chronic indwelling catheter, seizure disorder admitted through the emergency department yesterday with fever. Patient was found to have a temperature of 101.2 degrees with heart rate of 121. Lactate level and WBC were normal however UA was positive for urinary tract infection. Patient was also found to have bilateral chronic hip pressure ulcers. CT abdomen and pelvis confirmed the bilateral penetrating ulcers involving the hips with periosteal reaction on the right and left greater trochanters suggestive of early osteomyelitis. There is the suggestion of moderately severe ascending colitis from the rectum to mid ascending colon as well. Patient is admitted to the hospitalist service for management of the fever. He is currently on p.o. vancomycin for C diff colitis and Flagyl. Surgical consultation was requested for management of the bilateral hip ulcers. Review of Systems Review of Systems: Patient nonverbal due to trach Yes Unobtainable due to mental condition PMFSH Past Medical History Medical History Appendicitis Chronic pain [employer] lymphoma Depression Encephalopathy H/O: RCT (rotator cuff tear) Kidney stone Mantle cell lymphoma Rectal bleeding Toxoplasmosis Family History Family History Mother COPD (chronic obstructive pulmonary disease) Sister Colon cancer Surgical History Surgical History History of appendectomy Social History Social History Household Members: None Housing: Shelter Do you presently have visiting nurse or other home services: No Unable to assess alcohol history related to: Unable to respond Alcohol intake: never Patient Tobacco Use Status: Never used Tobacco Smoked in Last 30 Days: No Use of substances other than those prescribed or required for medical reasons: Unable to respond Substance Use Type: Marijuana Currently Displaying Signs/Symptoms of Drug Intoxication Withdrawal: No Advance Directives: No Advance Directives Information Provided: No Do you have thoughts of harming others: None Do you have a plan to hurt others: No Plan Recently lost weight without trying: Unsure Nutrition Risks: Receiving home tube feeding or CPN Poor oral hygiene: No service: No Current occupational status: unemployed Meds Allergies Allergy/AdvReac Type Severity Reaction Status Date / Time cyclobenzaprine [Flexeril] Allergy Unknown Palpitation Verified 09/22/20 15:41 s Active Medications: Current Medications Acetaminophen (Acetaminophen 325 Mg Tablet) 650 mg G-TUBE Q4H PRN PRN Reason: Fever Or Pain Albuterol Sulfate (Albuterol Sulfate (0.083%) 2.5 Mg/3 Ml Vial.Neb) 2.5 mg INHALE Q4H PRN PRN Reason: Shortness Of Breath Or Wheezing Atovaquone (Atovaquone 750 Mg/5 Ml Oral.Susp) 750 mg G-TUBE BID [facility] Last Admin: 01/03/23 09:06 Dose: 750 mg Baclofen (Baclofen 10 Mg Tablet) 5 mg G-TUBE TID [facility] Last Admin: 01/03/23 09:07 Dose: 5 mg Chlorhexidine Gluconate (Chlorhexidine Gluc Oral Rinse 15 Ml Mouthwash) 15 ml BUCCAL BID [facility] Last Admin: 01/03/23 09:06 Dose: 15 ml Cholestyramine Resin (Cholestyramine (With Sugar) 4 Gm Powd.Pack) 4 gm G-TUBE DAILY [facility] Last Admin: 01/03/23 09:07 Dose: 4 gm Doxazosin Mesylate (Doxazosin Mesylate 1 Mg Tablet) 1 mg G-TUBE BEDTIME [facility]; Protocol Last Admin: 01/02/23 22:16 Dose: 1 mg Enoxaparin Sodium (Enoxaparin Sodium 40 Mg/0.4 Ml Syringe) 40 mg SUBCUT Q24H [facility] Last Admin: 01/02/23 18:42 Dose: 40 mg Famotidine (Famotidine 20 Mg Tablet) 20 mg G-TUBE BID [facility] Last Admin: 01/03/23 09:08 Dose: 20 mg Finasteride (Finasteride 5 Mg Tablet) 5 mg PO DAILY [facility] Last Admin: 01/03/23 09:07 Dose: 5 mg Glycopyrrolate (Glycopyrrolate 1 Mg Tablet) 1 mg G-TUBE TID [facility] Last Admin: 01/03/23 09:07 Dose: 1 mg Guaifenesin (Guaifenesin 200 Mg/10 Ml 10 Ml Liquid) 10 ml G-TUBE Q4H PRN PRN Reason: Cough Metronidazole (Flagyl) 500 mg in 100 mls @ 100 mls/hr IV Q8H [facility] Last Infusion: 01/03/23 04:23 Dose: Infused Vancomycin HCl 1,000 mg/ (Sodium Chloride) 270 mls @ 270 mls/hr IV Q12H [facility] Last Infusion: 01/03/23 06:33 Dose: Infused Lacosamide (Lacosamide Oral Solution 100 Mg/10 Ml Solution) 200 mg G-TUBE BID [facility] Last Admin: 01/03/23 09:06 Dose: 200 mg Loperamide HCl (Loperamide Hcl Oral Liquid 2 Mg/15 Ml Liquid) 2 mg G-TUBE Q4H PRN PRN Reason: Diarrhea Lorazepam (Lorazepam 2 Mg/Ml Vial) 2 mg IVPUSH Q6H PRN PRN Reason: Anxiety Melatonin (Melatonin 3 Mg Tablet) 3 mg G-TUBE BEDTIME [facility] Last Admin: 01/02/23 22:16 Dose: 3 mg Midodrine (Midodrine Hcl 2.5 Mg Tablet) 7.5 mg G-TUBE TIDAC [facility] Last Admin: 01/03/23 09:08 Dose: 7.5 mg Non-Formulary Medication (Leucovorin Calcium) 25 mg G-TUBE BEDTIME [facility] Ondansetron HCl (Ondansetron Hcl 4 Mg/2 Ml Vial) 4 mg IVPUSH Q8H PRN PRN Reason: Nausea and Vomiting Oxycodone HCl (Oxycodone Hcl Immed Release 5 Mg Tablet) 5 mg G-TUBE Q4H PRN PRN Reason: Moderate Pain (Scale Score 5-6) Pharmacy Consult (Consult Rx Perform Med Rec) 1 each MISCELLANE ONCE PRN PRN Reason: Consult order Pharmacy Consult (Consult Rx Vancomycin Dosing) 1 each MISCELLANE DAILY PRN PRN Reason: Consult order Scopolamine (Scopolamine 1.5 Mg Patch.Td.3) 1.5 mg TRANSDERMA Q3D [facility] Sodium Chloride (0.9 % Sodium Chloride Flush 3 Ml Syringe) 3 ml IVFLUSH QSHIFT [facility] Last Admin: 01/03/23 09:06 Dose: 3 ml Vancomycin HCl (Vancomycin Hcl Oral Solution 125 Mg/5 Ml Soln.Recon) 125 mg PO QID [facility] Home Medications Medication Instructions Recorded Confirmed Last Taken Type acetaminophen 325 mg tablet 650 mg feeding tube Q4H PRN Fever 01/02/23 01/02/23 01/02/23 08:00 History Or Pain acetaminophen 650 mg rectal 650 mg SD Q4-6H PRN fever or pain 01/02/23 01/02/23 Unknown History suppository albuterol sulfate 2.5 mg/3 mL 2.5 mg inhalation Q4H PRN 01/02/23 01/02/23 Unknown History (0.083 %) solution for nebulization Shortness Of Breath Or Wheezing ascorbic acid (vitamin C) 250 mg 250 mg feeding tube DAILY 01/02/23 01/02/23 01/02/23 08:00 History tablet atovaquone 750 mg/5 mL oral 750 mg feeding tube BID 01/02/23 01/02/23 01/02/23 08:00 History suspension baclofen 10 mg tablet 5 mg feeding tube TID 01/02/23 01/02/23 01/02/23 05:22 History bisacodyl 10 mg rectal suppository 10 mg SD DAILY PRN Constipation 01/02/23 01/02/23 Unknown History chlorhexidine gluconate 0.12 % 15 ml buccal BID 01/02/23 01/02/23 01/02/23 08:00 History mouthwash cholecalciferol (vitamin D3) 1,250 1,250 mcg feeding tube QMONTH 01/02/23 01/02/23 12/27/22 History mcg (50,000 unit) tablet cholestyramine-aspartame 4 gram 4 g feeding tube DAILY 01/02/23 01/02/23 01/02/23 08:00 History oral powder for susp in a packet (Cholestyramine Light) collagenase clostridium histo. 250 1 appl topical BID 01/02/23 01/02/23 01/02/23 08:00 History unit/gram topical ointment doxazosin 1 mg tablet 1 mg feeding tube BEDTIME 01/02/23 01/02/23 01/02/23 08:00 History famotidine 20 mg tablet 20 mg feeding tube BID 01/02/23 01/02/23 01/02/23 08:00 History ferrous sulfate 300 mg (60 mg 300 mg feeding tube DAILY 01/02/23 01/02/23 01/02/23 08:00 History iron)/5 mL oral liquid finasteride 5 mg tablet 5 mg feeding tube DAILY 01/02/23 01/02/23 01/02/23 08:00 History glycopyrrolate 1 mg tablet 1 mg feeding tube TID 01/02/23 01/02/23 01/02/23 05:00 History guaifenesin 200 mg/5 mL oral liquid 200 mg feeding tube Q4H PRN Cough 01/02/23 0 01/02/23 Unknown History lacosamide 200 mg tablet 200 mg feeding tube BID 01/02/23 01/02/23 01/02/23 08:00 History leucovorin calcium 25 mg tablet 25 mg feeding tube BEDTIME 01/02/23 01/02/23 Unknown History loperamide 2 mg capsule 2 mg feeding tube Q4H PRN Diarrhea 01/02/23 01/02/23 Unknown History lorazepam 0.5 mg tablet 0.5 mg feeding tube Q6H PRN Anxiety 01/02/23 01/02/23 01/02/23 00:48 History lorazepam 2 mg/mL injection See Rx Instructions .Route .COMPLEX 01/02/23 01/02/23 Unknown History solution magnesium hydroxide 400 mg/5 mL 30 ml feeding tube DAILY PRN 01/02/23 01/02/23 Unknown History oral suspension (Milk of Magnesia) Constipation melatonin 3 mg tablet 3 mg feeding tube BEDTIME 01/02/23 01/02/23 Unknown History midodrine 5 mg tablet 7.5 mg feeding tube TID 01/02/23 01/02/23 01/02/23 05:00 History morphine 10 mg/5 mL oral solution 5 mg feeding tube BID 01/02/23 01/02/23 01/02/23 08:00 History morphine 10 mg/5 mL oral solution 5 mg feeding tube Q6H PRN Severe 01/02/23 01/02/23 Unknown History Pain (Scale Score 7-10) ondansetron HCl 2 mg/mL 4 mg IM Q4H PRN Nausea And Vomiting 01/02/23 01/02/23 Unknown History intravenous solution ondansetron HCl 4 mg tablet 4 mg feeding tube Q4H PRN Nausea 01/02/23 01/02/23 Unknown History And Vomiting oxycodone 5 mg tablet 5 mg feeding tube Q4H PRN Moderate 01/02/23 01/02/23 Unkno wn History Pain (Scale Score 5-6) scopolamine base 1 mg over 3 days 1 patch transdermal Q3D 01/02/23 01/02/23 Unknown History transdermal patch sennosides 8.6 mg-docusate sodium 1 tab-cap PO BID 01/02/23 01/02/23 01/02/23 08:00 History 50 mg tablet (Senna with Docusate Sodium) sodium phosphates 19 gram-7 118 ml SD DAILY PRN Constipation 01/02/23 01/02/23 Unknown History gram/118 mL enema (Fleet Enema) tramadol 50 mg tablet 25 mg PO Q4H PRN Pain 01/02/23 01/02/23 Unknown History zinc sulfate 50 mg zinc (220 mg) 50 mg feeding tube BEDTIME 01/02/23 01/02/23 Unknown History tablet Physical Exam Vital Signs: Vital Signs: Last Vital Signs Temp 100.4 F 01/03/23 08:02 Pulse 116 H 01/03/23 08:02 Resp 22 H 01/03/23 08:02 BP 110/64 01/03/23 08:02 Pulse Ox 92 01/03/23 08:02 O2 Del Method Trach Collar 01/03/23 08:02 O2 Flow Rate 91 01/03/23 08:02 Oxygen Flow Rate 8 01/02/23 11:18 BMI result Body Mass Index 20.5 Const: General: ill appearing and lethargic Nutritional Appearance: thin Orientation/consciousness: lethargic Limitations: physical limitations Neck: Other: Tracheostomy in place Resp: Other: No respiratory distress on trach mask Skin: General skin exam: turgor normal Rashes: no rashes Extrem: Other: Right greater trochanter ulcer, stage IV with palpable bone at base, proximally 3 x 4 by 3 cm deep. Mostly granulation tissue at the base of the wound without evidence of underlying abscess. Similar appearing left greater trochanteric ulcer, stage IV approximately 3 cm diameter and 3 cm deep, again with granulation at the base without evidence of necrotic skin. Some tunneling is identified along the hip. Results Labs 01/03/23 06:11 01/03/23 08:09 Labs: Abnormal lab results 01/02/23 01/02/23 01/02/23 Range/Units 11:34 11:35 11:35 RBC 3.51 L (4.60-5.80) X10*6/uL Hgb 9.5 L (14.0-18.0) g/dl Hct 31.2 L (42.0-52.0) % MCHC 30.4 L (31.0-36.0) g/dl RDW 17.2 H (11.0-16.0) % Neut % (Auto) 78.8 H (45-73) % Lymph % (Auto) 6.6 L (20-40) % [place] % (Auto) 13.8 H (2-11) % Lymph # (Auto) 0.7 L (1.2-4.9) X10*3/uL [place] # (Auto) 1.4 H (0.1-1.2) X10*3/uL Abs Immat Gran (auto) 0.04 H (0.00-0.03) X10*3/uL PT 14.3 H (10.0-13.1) SEC INR 1.2 H (0.9-1.1) BUN 37 H (9-16) mg/dL Random Glucose 147 H (60-115) mg/dL Alkaline Phosphatase 217 H (39-117) U/L C-Reactive Protein 9.46 H (< or = 0.50) mg/dL Total Protein 5.8 L (6.5-8.0) g/dL Albumin 3.1 L (3.5-5.0) g/dL Urine Protein (Neg-Trace) mg/dL Urine Blood (Negative) Urine Nitrite (Negative) Ur Leukocyte Esterase (Negative) Urine RBC (0-2) /HPF C. difficile Tox B Gene (Negative) C. difficile Toxin A&B (Negative) 01/02/23 01/02/23 01/03/23 Range/Units 13:11 14:39 06:11 RBC 3.40 L (4.60-5.80) X10*6/uL Hgb 9.5 L (14.0-18.0) g/dl Hct 30.4 L (42.0-52.0) % MCHC (31.0-36.0) g/dl RDW 17.1 H (11.0-16.0) % Neut % (Auto) (45-73) % Lymph % (Auto) (20-40) % [place] % (Auto) (2-11) % Lymph # (Auto) (1.2-4.9) X10*3/uL [place] # (Auto) (0.1-1.2) X10*3/uL Abs Immat Gran (auto) (0.00-0.03) X10*3/uL PT (10.0-13.1) SEC INR (0.9-1.1) BUN (9-16) mg/dL Random Glucose (60-115) mg/dL Alkaline Phosphatase (39-117) U/L C-Reactive Protein (< or = 0.50) mg/dL Total Protein (6.5-8.0) g/dL Albumin (3.5-5.0) g/dL Urine Protein 100 (2+) H (Neg-Trace) mg/dL Urine Blood Small (1+) H (Negative) Urine Nitrite Positive H (Negative) Ur Leukocyte Esterase Moderate (2+) H (Negative) Urine RBC 3-5 H (0-2) /HPF C. difficile Tox B Gene POSITIVE A* (Negative) C. difficile Toxin A&B Positive A* (Negative) Short CBC 01/02/23 01/03/23 Range/Units 11:35 06:11 WBC 10.4 7.8 (4.8-10.8) X10*3/uL Hgb 9.5 L 9.5 L (14.0-18.0) g/dl Hct 31.2 L 30.4 L (42.0-52.0) % Plt Count 188 185 (160-400) X10*3/uL BMP 01/02/23 01/03/23 11:34 08:09 Sodium 141 Potassium 3.6 Chloride 104 Carbon Dioxide 29 BUN 37 H Creatinine 0.74 0.76 Calcium 8.4 Liver Function 01/02/23 Range/Units 11:34 Total Bilirubin 0.5 (0.0-1.0) mg/dL Direct Bilirubin 0.2 (0.0-0.5) mg/dL AST 18 (5-37) U/L ALT 29 (0-40) U/L Alkaline Phosphatase 217 H (39-117) U/L Albumin 3.1 L (3.5-5.0) g/dL Urine 01/02/23 Range/Units 13:11 Urine Color Yellow Urine Appearance Clear Urine pH 5.5 (5.0-9.0) Ur Specific [place] 1.020 (1.005-1.025) Urine Protein 100 (2+) H (Neg-Trace) mg/dL Urine Glucose (UA) Negative (Negative) mg/dL All other labs normal. Assessment and Plan (1) Stage IV decubitus ulcer: Status: Acute Plan Patient admitted with bilateral decubiti involving the greater trochanter, stage IV and appear chronic in nature. Patient also appears to have C diff colitis which is being treated with oral vancomycin and metronidazole. Recommend frequently moving of patient side the side to keep all pressure off various ulcers. In addition he will need a nutritional assessment. Wound care consult would also be helpful. No surgical debridement is required at this time. Time Spent With Patient Time: Total time managing care of this patient today ____ minutes. Procedures Date of Service Date of Service: 01/03/23
--- NOTE | 2023-01-03 10:10 | PC.NURSE ---
0900 residual = 5cc, meds given through gtube and flushed with 300cc of water, patent tolerated very well, +BS and no signs of distress
[2023-01-03] MEDS: vancomycin HCL Oral Solution 125 MG/5 ML SOLN.RECON PO ×4 (10:23→22:52)
--- NOTE | 2023-01-03 11:43 | HO.PM.IMPN ---
Subjective Subjective Date of Service: 01/03/23 Interval History: Seen and evaluated this morning laying comfortable. pointing to abd when asked about pain non verbal running low grade fever of 100 no other overnight events Review of Systems Review of Systems: Yes Unobtainable due to mental condition Physical Exam Vital Signs: Vital Signs: Last Vital Signs Temp 100.5 F H 01/03/23 11:41 Pulse 116 H 01/03/23 08:02 Resp 22 H 01/03/23 08:02 BP 110/64 01/03/23 08:02 Pulse Ox 92 01/03/23 08:02 O2 Del Method Trach Collar 01/03/23 08:02 O2 Flow Rate 91 01/03/23 08:02 Oxygen Flow Rate 8 01/02/23 11:18 BMI result Body Mass Index 20.5 Const: Other: Constitutional : Awake, not in distress Neck : Normal inspection, Supple Cardiovascular : RRR, no JVP, no lower extremity edema Respiratory : good bilateral air entry, no crackles Gastrointestinal: soft, lax, Normal bowel sounds, G-tube in place, no significant tenderness Skin : Warm, Dry, decubetus ulcers, deep on the side with large puncture, black discolored skin rectal area Neurological : Alert, No focal deficit but retracted Objective Data Active Medications Acetaminophen (Acetaminophen 325 Mg Tablet) 650 mg G-TUBE Q4H PRN PRN Reason: Fever Or Pain Albuterol Sulfate (Albuterol Sulfate (0.083%) 2.5 Mg/3 Ml Vial.Neb) 2.5 mg INHALE Q4H PRN PRN Reason: Shortness Of Breath Or Wheezing Atovaquone (Atovaquone 750 Mg/5 Ml Oral.Susp) 750 mg G-TUBE BID [facility] Last Admin: 01/03/23 09:06 Dose: 750 mg Documented By: TY Baclofen (Baclofen 10 Mg Tablet) 5 mg G-TUBE TID [facility] Last Admin: 01/03/23 09:07 Dose: 5 mg Documented By: TY Chlorhexidine Gluconate (Chlorhexidine Gluc Oral Rinse 15 Ml Mouthwash) 15 ml BUCCAL BID [facility] Last Admin: 01/03/23 09:06 Dose: 15 ml Documented By: TY Cholestyramine Resin (Cholestyramine (With Sugar) 4 Gm Powd.Pack) 4 gm G-TUBE DAILY [facility] Last Admin: 01/03/23 09:07 Dose: 4 gm Documented By: TY Doxazosin Mesylate (Doxazosin Mesylate 1 Mg Tablet) 1 mg G-TUBE BEDTIME [facility]; Protocol Last Admin: 01/02/23 22:16 Dose: 1 mg Documented By: FRANNY Enoxaparin Sodium (Enoxaparin Sodium 40 Mg/0.4 Ml Syringe) 40 mg SUBCUT Q24H [facility] Last Admin: 01/02/23 18:42 Dose: 40 mg Documented By: MERI Famotidine (Famotidine 20 Mg Tablet) 20 mg G-TUBE BID [facility] Last Admin: 01/03/23 09:08 Dose: 20 mg Documented By: TY Finasteride (Finasteride 5 Mg Tablet) 5 mg PO DAILY [facility] Last Admin: 01/03/23 09:07 Dose: 5 mg Documented By: TY Glycopyrrolate (Glycopyrrolate 1 Mg Tablet) 1 mg G-TUBE TID [facility] Last Admin: 01/03/23 09:07 Dose: 1 mg Documented By: TY Guaifenesin (Guaifenesin 200 Mg/10 Ml 10 Ml Liquid) 10 ml G-TUBE Q4H PRN PRN Reason: Cough Metronidazole (Flagyl) 500 mg in 100 mls @ 100 mls/hr IV Q8H [facility] Last Infusion: 01/03/23 11:33 Dose: 0 mls/hr Documented By: TY Vancomycin HCl 1,000 mg/ (Sodium Chloride) 270 mls @ 270 mls/hr IV Q12H [facility] Last Infusion: 01/03/23 06:33 Dose: 0 mls/hr Documented By: FRANNY Lacosamide (Lacosamide Oral Solution 100 Mg/10 Ml Solution) 200 mg G-TUBE BID [facility] Last Admin: 01/03/23 09:06 Dose: 200 mg Documented By: TY Loperamide HCl (Loperamide Hcl Oral Liquid 2 Mg/15 Ml Liquid) 2 mg G-TUBE Q4H PRN PRN Reason: Diarrhea Lorazepam (Lorazepam 2 Mg/Ml Vial) 2 mg IVPUSH Q6H PRN PRN Reason: Anxiety Melatonin (Melatonin 3 Mg Tablet) 3 mg G-TUBE BEDTIME [facility] Last Admin: 01/02/23 22:16 Dose: 3 mg Documented By: FRANNY Midodrine (Midodrine Hcl 2.5 Mg Tablet) 7.5 mg G-TUBE TIDAC [facility] Last Admin: 01/03/23 09:08 Dose: 7.5 mg Documented By: TY Non-Formulary Medication (Leucovorin Calcium) 25 mg G-TUBE BEDTIME [facility] Ondansetron HCl (Ondansetron Hcl 4 Mg/2 Ml Vial) 4 mg IVPUSH Q8H PRN PRN Reason: Nausea and Vomiting Oxycodone HCl (Oxycodone Hcl Immed Release 5 Mg Tablet) 5 mg G-TUBE Q4H PRN PRN Reason: Moderate Pain (Scale Score 5-6) Pharmacy Consult (Consult Rx Perform Med Rec) 1 each MISCELLANE ONCE PRN PRN Reason: Consult order Pharmacy Consult (Consult Rx Vancomycin Dosing) 1 each MISCELLANE DAILY PRN PRN Reason: Consult order Scopolamine (Scopolamine 1.5 Mg Patch.Td.3) 1.5 mg TRANSDERMA Q3D [facility] Sodium Chloride (0.9 % Sodium Chloride Flush 3 Ml Syringe) 3 ml IVFLUSH QSHIFT [facility] Last Admin: 01/03/23 09:06 Dose: 3 ml Documented By: TY Vancomycin HCl (Vancomycin Hcl Oral Solution 125 Mg/5 Ml Soln.Recon) 125 mg PO QID [facility] Last Admin: 01/03/23 10:23 Dose: 125 mg Documented By: TY Labs 01/03/23 06:11 01/03/23 08:09 Labs: Laboratory Results - last 24 hr 01/02/23 01/02/23 01/02/23 11:34 11:34 11:34 MCV MCH MCHC RDW Plt Count MPV Immature Gran % (Auto) Neut % (Auto) Lymph % (Auto) Pender % (Auto) Eos % (Auto) Baso % (Auto) Lymph # (Auto) Pender # (Auto) Eos # (Auto) Baso # (Auto) Abs Immat Gran (auto) Absolute Neuts (auto) Absolute Nucleated RBC Nucleated RBC % (auto) PT INR Anion Gap 12 Estim Creat Clear Calc 99.8 Estimated GFR > 60 POC Glucose Random Glucose 147 H Lactic Acid 1.4 Calcium 8.4 Magnesium 2.0 Total Bilirubin 0.5 Direct Bilirubin 0.2 AST 18 ALT 29 Alkaline Phosphatase 217 H Troponin I High Sens 4.0 C-Reactive Protein 9.46 H Total Protein 5.8 L Albumin 3.1 L Urine Color Urine Appearance Urine pH Ur Specific Eola Urine Protein Urine Glucose (UA) Urine Ketones Urine Blood Urine Nitrite Ur Leukocyte Esterase Urine RBC Urine WBC Ur Squamous Epith Cells Urine Bacteria Hyaline Casts Stl C. cayetanensis PCR Stool Rotavirus A PCR Stl Adenov F 40/41 PCR Stool Astrovirus (PCR) Stool Campylobacter PCR Stool Cryptosporidium PCR Stl Sh Tox Pr E STEC PCR Stool E coli O157 PCR Stl Enterotoxigenic E PCR Stool EPEC (PCR) Stool EAEC (PCR) Stl E. histolytica PCR Stool Giardia Lamblia PCR Stl P. shigelloides PCR Stool Salmonella PCR Stool Sapovirus (PCR) Stl Shigella/EIEC PCR St Y.enterocolitica PCR Stool Vibrio (PCR) Stl Vibrio cholerae PCR Stl Norovirus GI/GII PCR C. difficile Tox B Gene C. difficile Toxin A&B C. difficile Interpret Influenza Type A (PCR) Influenza Type B (PCR) RSV RNA Qual (PCR) SARS-CoV-2 RNA (RT-PCR) 01/02/23 01/02/23 01/02/23 11:35 11:35 11:35 MCV 88.9 MCH 27.1 MCHC 30.4 L RDW 17.2 H Plt Count 188 MPV 9.6 Immature Gran % (Auto) 0.4 Neut % (Auto) 78.8 H Lymph % (Auto) 6.6 L Pender % (Auto) 13.8 H Eos % (Auto) 0.3 Baso % (Auto) 0.1 Lymph # (Auto) 0.7 L Pender # (Auto) 1.4 H Eos # (Auto) 0.0 Baso # (Auto) 0.0 Abs Immat Gran (auto) 0.04 H Absolute Neuts (auto) 8.2 Absolute Nucleated RBC 0.000 Nucleated RBC % (auto) 0.0 PT 14.3 H INR 1.2 H Anion Gap Estim Creat Clear Calc Estimated GFR POC Glucose Random Glucose Lactic Acid Calcium Magnesium Total Bilirubin Direct Bilirubin AST ALT Alkaline Phosphatase Troponin I High Sens C-Reactive Protein Total Protein Albumin Urine Color Urine Appearance Urine pH Ur Specific Eola Urine Protein Urine Glucose (UA) Urine Ketones Urine Blood Urine Nitrite Ur Leukocyte Esterase Urine RBC Urine WBC Ur Squamous Epith Cells Urine Bacteria Hyaline Casts Stl C. cayetanensis PCR Stool Rotavirus A PCR Stl Adenov PCR Stool Astrovirus (PCR) Stool Campylobacter PCR Stool Cryptosporidium PCR Stl Sh Tox Pr E STEC PCR Stool E coli O157 PCR Stl Enterotoxigenic E PCR Stool EPEC (PCR) Stool EAEC (PCR) Stl E. histolytica PCR Stool Giardia Lamblia PCR Stl P. shigelloides PCR Stool Salmonella PCR Stool Sapovirus (PCR) Stl Shigella/EIEC PCR St Y.enterocolitica PCR Stool Vibrio (PCR) Stl Vibrio cholerae PCR Stl Norovirus GI/GII PCR C. difficile Tox B Gene C. difficile Toxin A&B C. difficile Interpret Influenza Type A (PCR) NEGATIVE Influenza Type B (PCR) NEGATIVE RSV RNA Qual (PCR) NEGATIVE SARS-CoV-2 RNA (RT-PCR) NEGATIVE 01/02/23 01/02/23 01/02/23 13:11 13:26 14:39 MCV MCH MCHC RDW Plt Count MPV Immature Gran % (Auto) Neut % (Auto) Lymph % (Auto) Pender % (Auto) Eos % (Auto) Baso % (Auto) Lymph # (Auto) Pender # (Auto) Eos # (Auto) Baso # (Auto) Abs Immat Gran (auto) Absolute Neuts (auto) Absolute Nucleated RBC Nucleated RBC % (auto) PT INR Anion Gap Estim Creat Clear Calc Estimated GFR POC Glucose 107 Random Glucose Lactic Acid Calcium Magnesium Total Bilirubin Direct Bilirubin AST ALT Alkaline Phosphatase Troponin I High Sens C-Reactive Protein Total Protein Albumin Urine Color Yellow Urine Appearance Clear Urine pH 5.5 Ur Specific Eola 1.020 Urine Protein 100 (2+) H Urine Glucose (UA) Negative Urine Ketones Negative Urine Blood Small (1+) H Urine Nitrite Positive H Ur Leukocyte Esterase Moderate (2+) H Urine RBC 3-5 H Urine WBC 6-10 Ur Squamous Epith Cells 0-2 Urine Bacteria Trace Hyaline Casts 3-5 Stl C. cayetanensis PCR Stool Rotavirus A PCR Stl Adenov F PCR Stool Astrovirus (PCR) Stool Campylobacter PCR Stool Cryptosporidium PCR Stl Sh Tox Pr E STEC PCR Stool E coli O157 PCR Stl Enterotoxigenic E PCR Stool EPEC (PCR) Stool EAEC (PCR) Stl E. histolytica PCR Stool Giardia Lamblia PCR Stl P. shigelloides PCR Stool Salmonella PCR Stool Sapovirus (PCR) Stl Shigella/EIEC PCR St Y.enterocolitica PCR Stool Vibrio (PCR) Stl Vibrio cholerae PCR Stl Norovirus GI/GII PCR C. difficile Tox B Gene POSITIVE A* C. difficile Toxin A&B Positive A* C. difficile Interpret SEE NOTE Influenza Type A (PCR) Influenza Type B (PCR) RSV RNA Qual (PCR) SARS-CoV-2 RNA (RT-PCR) 01/02/23 01/03/23 01/03/23 14:39 06:11 08:09 MCV 89.4 MCH 27.9 MCHC 31.3 RDW 17.1 H Plt Count 185 MPV 10.6 Immature Gran % (Auto) Neut % (Auto) Lymph % (Auto) Pender % (Auto) Eos % (Auto) Baso % (Auto) Lymph # (Auto) Pender # (Auto) Eos # (Auto) Baso # (Auto) Abs Immat Gran (auto) Absolute Neuts (auto) Absolute Nucleated RBC 0.000 Nucleated RBC % (auto) 0.0 PT INR Anion Gap Estim Creat Clear Calc 100.4 Estimated GFR > 60 POC Glucose Random Glucose Lactic Acid Calcium Magnesium Total Bilirubin Direct Bilirubin AST ALT Alkaline Phosphatase Troponin I High Sens C-Reactive Protein Total Protein Albumin Urine Color Urine Appearance Urine pH Ur Specific Eola Urine Protein Urine Glucose (UA) Urine Ketones Urine Blood Urine Nitrite Ur Leukocyte Esterase Urine RBC Urine WBC Ur Squamous Epith Cells Urine Bacteria Hyaline Casts Stl C. cayetanensis PCR Not Detected Stool Rotavirus A PCR Not Detected Stl Adenov F 40/41 PCR Not Detected Stool Astrovirus (PCR) Not Detected Stool Campylobacter PCR Not Detected Stool Cryptosporidium PCR Not Detected Stl Sh Tox Pr E STEC PCR Not Detected Stool E coli O157 PCR Not applicable Stl Enterotoxigenic E PCR Not Detected Stool EPEC (PCR) Not Detected Stool EAEC (PCR) Not Detected Stl E. histolytica PCR Not Detected Stool Giardia Lamblia PCR Not Detected Stl P. shigelloides PCR Not Detected Stool Salmonella PCR Not Detected Stool Sapovirus (PCR) Not Detected Stl Shigella/EIEC PCR Not Detected St Y.enterocolitica PCR Not Detected Stool Vibrio (PCR) Not Detected Stl Vibrio cholerae PCR Not Detected Stl Norovirus GI/GII PCR Not Detected C. difficile Tox B Gene C. difficile Toxin A&B C. difficile Interpret Influenza Type A (PCR) Influenza Type B (PCR) RSV RNA Qual (PCR) SARS-CoV-2 RNA (RT-PCR) Microbiology Microbiology Results: Microbiology 01/02/23 Unknown Urine Culture - Preliminary Urine Catheterized - Rubio Catheter Gram negative jessie Assessment and Plan (1) Stage IV decubitus ulcer: Status: Acute (2) C. difficile colitis: Status: Acute (3) Sepsis: Status: Acute Plan Pt is a 52-year-old male with a PMH significant for?stage IV mantle cell lymphoma, [employer] toxoplasmosis, acute on chronic respiratory failure with trach in place on 35% trach mask, normocytic anemia, BPH, urinary retention with chronic catheter in place, seizure disorder, G-tube in place, who presents to the ED from [facility] for evaluation of fever. CT positive for colitis and likely osteomyelitis of pelvis. Patient be admitted to the hospital for treatment further evaluation of C diff colitis and likely osteomyelitis of the pelvis. Sepsis 2/[address] of abdomen and pelvis showed moderately severe ascending colitis from rectum to mid ascending colon without obstruction, perforation, free air positive for C diff, GI panel pending vancomycin p.o. and Flagyl Contact precautions ID consult Question of osteomyelitis of greater trochanters CT of abdomen pelvis found bilateral penetrating ulcers underlying the hips with with speech periosteal reaction to the right and left greater trochanters possible of early osteomyelitis ESR Patient will be covered by vancomycin IV ID consult UTI in chronic Rubio catheter pending cultures ceftriaxone for 5 days Stage IV decubitus ulcers Patient has bilateral penetrating stage IV decubitus ulcers on buttocks Air loss mattress Patient positioning q2h General surgery consult Wound care consult Diet Pt has G-tube in place Osmolite 1.5, Prosource, 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 Time Spent With Patient Time: Total time managing care of this patient today ____ minutes. Quality Stroke Does the patient have a stroke diagnosis?: No VTE Prior VTE?: No VTE Risk Level:: Medical - moderate - high VTE Device Contraindication: Treatment Not Indicated VTE Drug Contraindication: N/A - Med Ordered
[2023-01-03] MEDS: Acetaminophen 325 MG TABLET 650 MG G-TUBE (12:51)
[2023-01-03] MEDS: cefTRIAXone sodium 1 GM in 0.9 % Sodium Chloride 50 ML IV (12:51)
--- NOTE | 2023-01-03 12:55 | MHC.CLN ---
NUTRITION CONSULT FOR WOUNDS AND TUBE FEEDING. PATIENT WITH TRACH AND PEG TUBE. REQUIRES NUTRITION/HYDRATION VIA PEG. APPEARS TO BE TOLERATING CURRENT TUBE FEEDING AT 70 ML PER HOUR. OSMOLITE 1.5 AT 70 ML PER HOUR X 18 HOURS; FREE WATER FLUSH 300 ML Q 6 HOURS; 30 ML PROSOURCE BID (120 KCALS, 30 G PROTEIN), 1 PACKET PARESH BID (160 KCALS, 5 G PROTEIN). PROVIDES 2170 TOTAL KCALS (35.5 KCALS/KG) 114 G PROTEIN (1.87 G/KG) 2160 ML FREE WATER FROM FORMULA AND FLUSH (35.4 ML/KG) ADDITIONAL PROTEIN TO PROMOTE WOUND HEALING. INCREASED NUTRITION NEEDS DUE IMPAIRED SKIN: STAGE IV PRESSURE INJURIES, UNSTAGEABLE AREAS. CURRENTLY WITH C-DIFF, UTI, AND SEPSIS. CURRENT TUBE FEED ORDER IS APPROXIMATELY EQUAL TO ORDER AT [facility]. FOLLOW FOR TUBE FEED TOLERANCE, RESIDUALS, LABS, WOUND HEALING.
--- NOTE | 2023-01-03 15:49 | P.CNID_ITS ---
History of Present Illness Data of Consult Service Date: 01/03/23 Requesting physician: Patrick Pineda Primary Care Provider: [facility] Reason for consult: fever of unknown origin He presents with fever to 102 overnight. He came from [facility] with fever night before. 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 He has colitis on CT abdomen He has right and left ulcers over greater trochanter and MRI suggestive of possible OM. There is probable ulcer formation last two months or so. He has profuse diarrhea. 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 Depression Encephalopathy H/O: RCT (rotator cuff tear) Kidney stone Mantle cell lymphoma Rectal bleeding Toxoplasmosis Family History Family History Mother COPD (chronic obstructive pulmonary disease) Sister Colon cancer Family history: reviewed and not pertinent Surgical History Surgical History History of appendectomy Social History Social History Household Members: None Housing: Snf Do you presently have visiting nurse or other home services: No Unable to assess alcohol history related to: Unable to respond Alcohol intake: never Patient Tobacco Use Status: Never used Tobacco Smoked in Last 30 Days: No Use of substances other than those prescribed or required for medical reasons: Unable to respond Substance Use Type: Marijuana Currently Displaying Signs/Symptoms of Drug Intoxication Withdrawal: No Advance Directives: No Advance Directives Information Provided: No Do you have thoughts of harming others: None Do you have a plan to hurt others: No Plan Recently lost weight without trying: Unsure Nutrition Risks: Receiving home tube feeding or CPN Poor oral hygiene: No service: No Current occupational status: unemployed Meds Allergies Allergy/AdvReac Type Severity Reaction Status Date / Time cyclobenzaprine [Flexeril] Allergy Unknown Palpitation Verified 09/22/20 15:41 s Active Medications: Current Medications Acetaminophen (Acetaminophen 325 Mg Tablet) 650 mg G-TUBE Q4H PRN PRN Reason: Fever Or Pain Last Admin: 01/03/23 12:51 Dose: 650 mg Albuterol Sulfate (Albuterol Sulfate (0.083%) 2.5 Mg/3 Ml Vial.Neb) 2.5 mg INH ROBBIE Q4H PRN PRN Reason: Shortness Of Breath Or Wheezing Atovaquone (Atovaquone 750 Mg/5 Ml Oral.Susp) 750 mg G-TUBE BID [facility] Last Admin: 01/03/23 09:06 Dose: 750 mg Baclofen (Baclofen 10 Mg Tablet) 5 mg G-TUBE TID RACHELL Last Admin: 01/03/23 15:03 Dose: 5 mg Chlorhexidine Gluconate (Chlorhexidine Gluc Oral Rinse 15 Ml Mouthwash) 15 ml BUCCAL BID [facility] Last Admin: 01/03/23 09:06 Dose: 15 ml Cholestyramine Resin (Cholestyramine (With Sugar) 4 Gm Powd.Pack) 4 gm G-TUBE DAILY [facility] Last Admin: 01/03/23 09:07 Dose: 4 gm Doxazosin Mesylate (Doxazosin Mesylate 1 Mg Tablet) 1 mg G-TUBE BEDTIME [facility]; Protocol Last Admin: 01/02/23 22:16 Dose: 1 mg Enoxaparin Sodium (Enoxaparin Sodium 40 Mg/0.4 Ml Syringe) 40 mg SUBCUT Q24H [facility] Last Admin: 01/02/23 18:42 Dose: 40 mg Famotidine (Famotidine 20 Mg Tablet) 20 mg G-TUBE BID [facility] Last Admin: 01/03/23 09:08 Dose: 20 mg Finasteride (Finasteride 5 Mg Tablet) 5 mg PO DAILY [facility] Last Admin: 01/03/23 09:07 Dose: 5 mg Glycopyrrolate (Glycopyrrolate 1 Mg Tablet) 1 mg G-TUBE TID [facility] Last Admin: 01/03/23 15:03 Dose: 1 mg Guaifenesin (Guaifenesin 200 Mg/10 Ml 10 Ml Liquid) 10 ml G-TUBE Q4H PRN PRN Reason: Cough Metronidazole (Flagyl) 500 mg in 100 mls @ 100 mls/hr IV Q8H [facility] Last Infusion: 01/03/23 11:33 Dose: Infused Vancomycin HCl 1,000 mg/ (Sodium Chloride) 270 mls @ 270 mls/hr IV Q12H [facility] Last Infusion: 01/03/23 06:33 Dose: Infused Lacosamide (Lacosamide Oral Solution 100 Mg/10 Ml Solution) 200 mg G-TUBE BID [facility] Last Admin: 01/03/23 09:06 Dose: 200 mg Loperamide HCl (Loperamide Hcl Oral Liquid 2 Mg/15 Ml Liquid) 2 mg G-TUBE Q4H PRN PRN Reason: Diarrhea Lorazepam (Lorazepam 2 Mg/Ml Vial) 2 mg IVPUSH Q6H PRN PRN Reason: Anxiety Melatonin (Melatonin 3 Mg Tablet) 3 mg G-TUBE BEDTIME [facility] Last Admin: 01/02/23 22:16 Dose: 3 mg Midodrine (Midodrine Hcl 2.5 Mg Tablet) 7.5 mg G-TUBE TIDAC [facility] Last Admin: 01/03/23 12:51 Dose: 7.5 mg Non-Formulary Medication (Leucovorin Calcium) 25 mg G-TUBE BEDTIME [facility] Ondansetron HCl (Ondansetron Hcl 4 Mg/2 Ml Vial) 4 mg IVPUSH Q8H PRN PRN Reason: Nausea and Vomiting Oxycodone HCl (Oxycodone Hcl Immed Release 5 Mg Tablet) 5 mg G-TUBE Q4H PRN PRN Reason: Moderate Pain (Scale Score 5-6) Pharmacy Consult (Consult Rx Perform Med Rec) 1 each MISCELLANE ONCE PRN PRN Reason: Consult order Pharmacy Consult (Consult Rx Vancomycin Dosing) 1 each MISCELLANE DAILY PRN PRN Reason: Consult order Scopolamine (Scopolamine 1.5 Mg Patch.Td.3) 1.5 mg TRANSDERMA Q3D [facility] Sodium Chloride (0.9 % Sodium Chloride Flush 3 Ml Syringe) 3 ml IVFLUSH QSHIFT [facility] Last Admin: 01/03/23 15:03 Dose: 3 ml Vancomycin HCl (Vancomycin Hcl Oral Solution 125 Mg/5 Ml Soln.Recon) 125 mg PO QID [facility] Last Admin: 01/03/23 12:51 Dose: 125 mg Home Medications Medication Instructions Recorded Confirmed Last Taken Type acetaminophen 325 mg tablet 650 mg feeding tube Q4H PRN Fever 01/02/23 01/02/23 01/02/23 08:00 History Or Pain acetaminophen 650 mg rectal 650 mg LA Q4-6H PRN fever or pain 01/02/23 01/02/23 Unknown History suppository albuterol sulfate 2.5 mg/3 mL 2.5 mg inhalation Q4H PRN 01/02/23 01/02/23 Unknown History (0.083 %) solution for nebulization Shortness Of Breath Or Wheezing ascorbic acid (vitamin C) 250 mg 250 mg feeding tube DAILY 01/02/23 01/02/23 01/02/23 08:00 History tablet atovaquone 750 mg/5 mL oral 750 mg feeding tube BID 01/02/23 01/02/23 01/02/23 08:00 History suspension baclofen 10 mg tablet 5 mg feeding tube TID 01/02/23 01/02/23 01/02/23 05:22 History bisacodyl 10 mg rectal suppository 10 mg LA DAILY PRN Constipation 01/02/23 01/02/23 Unknown History chlorhexidine gluconate 0.12 % 15 ml buccal BID 01/02/23 01/02/23 01/02/23 08:00 History mouthwash cholecalciferol (vitamin D3) 1,250 1,250 mcg feeding tube QMONTH 01/02/23 01/02/23 12/27/22 History mcg (50,000 unit) tablet cholestyramine-aspartame 4 gram 4 g feeding tube DAILY 01/02/23 01/02/23 01/02/23 08:00 History oral powder for susp in a packet (Cholestyramine Light) collagenase clostridium histo. 250 1 appl topical BID 01/02/23 01/02/23 01/02/23 08:00 History unit/gram topical ointment doxazosin 1 mg tablet 1 mg feeding tube BEDTIME 01/02/23 01/02/23 01/02/23 08:00 History famotidine 20 mg tablet 20 mg feeding tube BID 01/02/23 01/02/23 01/02/23 08:00 History ferrous sulfate 300 mg (60 mg 300 mg feeding tube DAILY 01/02/23 01/02/23 01/02/23 08:00 History iron)/5 mL oral liquid finasteride 5 mg tablet 5 mg feeding tube DAILY 01/02/23 01/02/23 01/02/23 08:00 History glycopyrrolate 1 mg tablet 1 mg feeding tube TID 01/02/23 01/02/23 01/02/23 05:00 History guaifenesin 200 mg/5 mL oral liquid 200 mg feeding tube Q4H PRN Cough 01/02/23 01/02/23 Unknown History lacosamide 200 mg tablet 200 mg feeding tube BID 01/02/23 01/02/23 01/02/23 08:00 History leucovorin calcium 25 mg tablet 25 mg feeding tube BEDTIME 01/02/23 01/02/23 Unknown History loperamide 2 mg capsule 2 mg feeding tube Q4H PRN Diarrhea 01/02/23 01/02/23 Unknown History lorazepam 0.5 mg tablet 0.5 mg feeding tube Q6H PRN Anxiety 01/02/23 01/02/23 01/02/23 00:48 History lorazepam 2 mg/mL injection See Rx Instructions .Route .COMPLEX 01/02/23 01/02/23 Unknown History solution magnesium hydroxide 400 mg/5 mL 30 ml feeding tube DAILY PRN 01/02/23 01/02/23 Unknown History oral suspension (Milk of Magnesia) Constipation melatonin 3 mg tablet 3 mg feeding tube BEDTIME 01/02/23 01/02/23 Unknown History midodrine 5 mg tablet 7.5 mg feeding tube TID 01/02/23 01/02/23 01/02/23 05:00 History morphine 10 mg/5 mL oral solution 5 mg feeding tube BID 01/02/23 01/02/23 01/02/23 08:00 History morphine 10 mg/5 mL oral solution 5 mg feeding tube Q6H PRN Severe 01/02/23 01/02/23 Unknown History Pain (Scale Score 7-10) ondansetron HCl 2 mg/mL 4 mg IM Q4H PRN Nausea And Vomiting 01/02/23 01/02/23 Unknown History intravenous solution ondansetron HCl 4 mg tablet 4 mg feeding tube Q4H PRN Nausea 01/02/23 01/02/23 Unknown History And Vomiting oxycodone 5 mg tablet 5 mg feeding tube Q4H PRN Moderate 01/02/23 01/02/23 Unknown History Pain (Scale Score 5-6) scopolamine base 1 mg over 3 days 1 patch transdermal Q3D 01/02/23 01/02/23 Unknown History transdermal patch sennosides 8.6 mg-docusate sodium 1 tab-cap PO BID 01/02/23 01/02/23 01/02/23 08:00 History 50 mg tablet (Senna with Docusate Sodium) sodium phosphates 19 gram-7 118 ml LA DAILY PRN Constipation 01/02/23 01/02/23 Unknown History gram/118 mL enema (Fleet Enema) tramadol 50 mg tablet 25 mg PO Q4H PRN Pain 01/02/23 01/02/23 Unknown History zinc sulfate 50 mg zinc (220 mg) 50 mg feeding tube BEDTIME 01/02/23 01/02/23 Unknown History tablet Physical Exam Vital Signs: Vital Signs: Last Vital Signs Temp 101.4 F H 01/03/23 15:12 Pulse 116 H 01/03/23 08:02 Resp 22 H 01/03/23 08:02 BP 110/64 01/03/23 08:02 Pulse Ox 92 01/03/23 08:02 O2 Del Method Trach Collar 01/03/23 08:02 O2 Flow Rate 91 01/03/23 08:02 Oxygen Flow Rate 8 01/02/23 11:18 BMI result Body Mass Index 20.5 Const: Other: not conversant HEENT: Head: Yes normal to inspection Face and sinus: Yes normal facial exam Mouth: Normal oral and palatal mucosa present Teeth and gingiva: dentition normal Eyes: General: appearance normal, both eyes and all related structures Pupils: Equal, round and reactive pupils present Resp: Effort & Inspection: normal respiratory effort Cardio: Rate: regular rate Rhythm: regular rhythm GI: Palpation (GI): Soft to palpation and nontender : General: Yes no CVA tenderness Back/Spine/Pelvis: Back: no CVA tenderness Skin: General skin exam: no rashes or lesions noted Neuro: General: moves all extremities Cranial nerves: Yes Equal, round and reactive pupils present Extrem: Other: open areas hips ,patient not ambulatory Psych: Appearance: grossly normal Results Labs 01/03/23 06:11 01/03/23 08:09 Labs: Short CBC 01/03/23 Range/Units 06:11 WBC 7.8 (4.8-10.8) X10*3/uL Hgb 9.5 L (14.0-18.0) g/dl Hct 30.4 L (42.0-52.0) % Plt Count 185 (160-400) X10*3/uL BMP 01/03/23 08:09 Creatinine 0.76 Microbiology Microbiology Results: Microbiology 01/02/23 11:45 Blood - Venous Blood Culture - Preliminary No growth after 24 hours. 01/02/23 11:34 Blood - Venous Blood Culture - Preliminary No growth after 24 hours. 01/02/23 Unknown Urine Catheterized - Rubio Catheter Urine Culture - Preliminary Gram negative jessie Assessment and Plan (1) Sepsis: Status: Acute Probable Cdiff is source Pyuria is chronic. Ulcers may be as well (2) Stage IV decubitus ulcer: Status: Acute (3) Osteomyelitis of pelvis: Status: Acute (4) C. difficile colitis: Status: Acute (5) Acute UTI: Status: Acute (6) Fever: Status: Acute Plan Would continue Vancomycin and IV Flagyl and po Vancomycin for now. Time Spent With Patient Time: Total time managing care of this patient today ____ minutes.
[2023-01-03 17:24] LABS: Vancomycin Random 11.8 mcg/mL (15-20)
[2023-01-03] MEDS: Enoxaparin Sodium 40 MG/0.4 ML SYRINGE SUBCUT (17:42)
[2023-01-03] MEDS: Melatonin 3 MG TABLET G-TUBE (22:51)
[2023-01-03] MEDS: Doxazosin Mesylate 1 MG TABLET G-TUBE (22:52)
[2023-01-04] MEDS: metroNIDAZOLE/NS 500 MG/100 ML PIGGYBACK 100 MG IV ×3 (03:03→19:48)
[2023-01-04 04:00] VITALS: BP 110/60; PULSE 62; RESP 20; TEMP 37.2; O2SAT 92
[2023-01-04] MEDS: vancomycin HCL 1,000 MG in 0.9 % Sodium Chloride 250 ML 270 MG IV (06:04)
[2023-01-04 06:11] LABS: Hematocrit 27.6 % (42.0-52.0); Hemoglobin 8.5 g/dl (14.0-18.0); Mean Corpuscular HGB Conc 30.8 g/dl (31.0-36.0); Mean Corpuscular Hemoglobin 27.3 pg (27.0-33.0); Mean Corpuscular Volume 88.7 fL (80.0-98.0); Mean Platelet Volume 10.2 fL (9.4-12.4); Platelet Count 185 X10*3/uL (160-400); Red Blood Count 3.11 X10*6/uL (4.60-5.80); Red Cell Distribution Width 17.2 % (11.0-16.0); White Blood Count 6.1 X10*3/uL (4.8-10.8)
[2023-01-04 06:27] LABS: Anion Gap 12 (12-20); Blood Urea Nitrogen 20 mg/dL (9-16); Calcium 7.7 mg/dL (8.4-10.2); Carbon Dioxide 25 mmol/L (22-29); Chloride 110 mmol/L (96-108); Creatinine Clr Calc Pharmacy 97.9; Estimated Glomerular Filt Rate > 60; Glucose Random 153 mg/dL (60-115); Sodium 144 mmol/L (135-145)
[2023-01-04 07:33] LABS: Erythrocyte Sedimentation Rate 106 MM/HR (0-15)
[2023-01-04 07:55] VITALS: BP 110/65; PULSE 105; RESP 18; TEMP 37; O2SAT 96
--- NOTE | 2023-01-04 08:42 | HO.WOUND ---
Wound Care Consult Reason for consult:Gustavo Stage IV decubitus ulcers on buttocks Patient has multiple wounds. 1.Wound on left heel listed as a DTI, but is an unstageable at this point due to the amount of slough on the wound bed. Not sure on the true tissue severity without debridement. Foam border removed from the wound. Wound edges are attached. No undermining or tunneling noted. Small amount of serous drainage on bandage . Periwound was scarred. Wound measured 4.2cm x 2.3cm x0.1cm. Wound was cleansed with sea clens wound cleanser. Applied alginate ag cut to wound size and covered with foam border. 2. Wound on right ankle listed as DTI, but also is unstageable due to the slough on the wound bed, also needing debridement. Foam border and alginate ag was removed from the wound. Wound bed appearance was large amount of slough with a small amount of pink granulation tissue. Small amount of serosanguineous drainage on bandage. Periwound had some scarring. Wound measured 2.4cm x 2.2cm x 0.3cm. Wound cleansed with sea clens wound wash. Applied alginate ag cut to wound size and covered with foam border. 3. Wound on the right trochanter listed as unstageable but is a stage IV.? No bone noted but within deeper layers.? Foam border was removed from wound. Wound bed appearance was large pink granulation and small fibrin/slough. There was a large amount of serous drainage running out of wound when it was uncovered. Wound edges not attached with epibole. There was undermining 12 o?clock to 12 o?clock with a maximum distance of 4.9cm. Outside wound measurements were 1.4cm x 2.3cm x 1.9cm. Wound was irrigated with the sea clens wash, cut the alginate ag into a ribbon and lightly packed and covered with a foam border dressing. ?4. Wound on left ishium was listed as unstageable but is a stage III.? Foam border removed from wound. Wound bed appearance was about medium pink granulation and medium slough/fibrin.? Large amount of serosanguinous drainage on dressing. Periwound seemed intact. ?Wound measured 7.6cm x 4.5cm x 0.3cm. Wound was cleansed with pre clens , alginate ag was cut to wound size and covered with a dcd, area skin prepped and taped, there were no more foam borders available. ? 5. Wound on left trochanter is a stage IV.No bone noted but within the deeper layers. Foam border removed from wound. Wound bed was large pink granulation and small fibrin/slough. Small serosanguinous drainage on dressing. Wound edges not attached with epibole. There was undermining from 7 o'clock to 12 o'clock with a maximum distance of 3.4cm. Outside wound measurements were 2cm x 1.7cm x 2.1cm. Wound was irrigated with sea clens, cut the alginate ag into a ribbon and lightly packed and covered with a dcd, area was skin prepped and taped, there were no more foam borders available. 6. Wound on left lateral 5th metatarsal unstageable. Wound was open to air on consult. Wound bed was dry echar. No drainage noted. Wound edges attached. Wound measurements were 0.7cm x 1.2cm x 0.1cm. Left open to air. Recommendation: 1. Left heel, cleanse with normal saline or sea clens. Santyl would be a good option to help break down the slough/fibrin if debridement is not an option, and cover with a dcd and destiny daily. If santyl is not available may continue with alginate ag cut to wound size to help with drainage control and cover with foam border every other day. 2. Right ankle, cleanse with sea clens or normal saline. Santyl could be used also here, but sharp debridement would be better. If santyl is used, cover with dcd and destiny wrap daily. And if not available cut alginate ag to wound size and cover with foam border every other day. 3. Right trochanter, irrigate wound well with normal saline or sea clens. Cut alginate ag into ribbon and lightly pack into wound. Cover with dcd or foam border daily to every other day depending on drainage. 4. Left ischium, cleanse with sea clens or normal saline. Cut alginate ag to wound size and cover with a dcd or foam border daily to every other day. With the location of this wound, it might need to be changed more often due to soilage. 5. Left trochanter, irrigate wound well with normal saline or sea clens. Cut alginate ag into ribbon and lightly pack into wound. Cover with dcd or foam border daily to every other day depending on drainage. 6. Left lateral 5th metatarsal- Stable eschar, may leave open to air and keep protected with boots while in bed. Continue with frequent repositioning. Air bed and offloading boots already in place. 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
[2023-01-04] MEDS: guaiFENesin 100 MG/5 ML LIQUID 10 ML G-TUBE ×3 (09:09→21:04)
[2023-01-04] MEDS: Lacosamide Oral Solution 100 MG/10 ML SOLUTION 200 MG G-TUBE ×2 (09:09→21:04)
[2023-01-04] MEDS: vancomycin HCL Oral Solution 125 MG/5 ML SOLN.RECON PO ×4 (09:09→21:04)
[2023-01-04] MEDS: Chlorhexidine Gluc Oral Rinse 15 ML MOUTHWASH BUCCAL ×2 (09:09→21:04)
[2023-01-04] MEDS: Midodrine HCl 2.5 MG TABLET 7.5 MG G-TUBE ×3 (09:09→18:06)
[2023-01-04] MEDS: Atovaquone 750 MG/5 ML ORAL.SUSP G-TUBE ×2 (09:09→21:04)
[2023-01-04] MEDS: Finasteride 5 MG TABLET PO (09:10)
[2023-01-04] MEDS: Cholestyramine (With Sugar) 4 GM POWD.PACK G-TUBE (09:10)
[2023-01-04] MEDS: Potassium Chloride Packet 20 MEQ PACKET 40 MEQ G-TUBE (09:10)
[2023-01-04] MEDS: Baclofen 10 MG TABLET 5 MG G-TUBE ×3 (09:10→21:04)
[2023-01-04] MEDS: Famotidine 20 MG TABLET G-TUBE ×2 (09:10→21:04)
[2023-01-04] MEDS: Glycopyrrolate 1 MG TABLET G-TUBE ×3 (09:10→21:05)
[2023-01-04] MEDS: 0.9 % Sodium Chloride Flush 3 ML SYRINGE IVFLUSH ×3 (09:11→21:05)
--- NOTE | 2023-01-04 11:17 | P.PNIM_ITS ---
Subjective Subjective Date of Service: 01/04/23 Interval History: Seen and evaluated this morning looks more comfortable. not in distress coughing more with yellowish sputum non verbal no fever overnight no other overnight events Review of Systems Review of Systems: Yes all other systems are reviewed and are negative Physical Exam Vital Signs: Vital Signs: Last Vital Signs Temp 98.6 F 01/04/23 07:55 Pulse 105 H 01/04/23 07:55 Resp 18 01/04/23 07:55 BP 110/65 01/04/23 07:55 Pulse Ox 96 01/04/23 07:55 O2 Del Method Trach Collar 01/04/23 07:55 O2 Flow Rate 8.0 01/04/23 07:55 FiO2 35 01/04/23 07:55 Oxygen Flow Rate 8 01/02/23 11:18 BMI result Body Mass Index 20.5 Const: Other: Constitutional : Awake, not in distress Neck : Normal inspection, Supple Cardiovascular : RRR, no JVP, no lower extremity edema Respiratory : good bilateral air entry, no crackles Gastrointestinal: soft, lax, Normal bowel sounds, G-tube in place, no significant tenderness Skin : Warm, Dry, decubetus ulcers, deep on the side with large puncture, black discolored skin rectal area Neurological : Alert, No focal deficit but retracted Objective Data Active Medications Acetaminophen (Acetaminophen 325 Mg Tablet) 650 mg G-TUBE Q4H PRN PRN Reason: Fever Or Pain Last Admin: 01/03/23 12:51 Dose: 650 mg Documented By: TY Albuterol Sulfate (Albuterol Sulfate (0.083%) 2.5 Mg/3 Ml Vial.Neb) 2.5 mg INHALE Q4H PRN PRN Reason: Shortness Of Breath Or Wheezing Atovaquone (Atovaquone 750 Mg/5 Ml Oral.Susp) 750 mg G-TUBE BID [facility] Last Admin: 01/04/23 09:09 Dose: 750 mg Documented By: LISA Baclofen (Baclofen 10 Mg Tablet) 5 mg G-TUBE TID [facility] Last Admin: 01/04/23 09:10 Dose: 5 mg Documented By: LISA Comments: Chlorhexidine Gluconate (Chlorhexidine Gluc Oral Rinse 15 Ml Mouthwash) 15 ml BUCCAL BID [facility] Last Admin: 01/04/23 09:09 Dose: 15 ml Documented By: LISA Cholestyramine Resin (Cholestyramine (With Sugar) 4 Gm Powd.Pack) 4 gm G-TUBE DAILY [facility] Last Admin: 01/04/23 09:10 Dose: 4 gm Documented By: LISA Doxazosin Mesylate (Doxazosin Mesylate 1 Mg Tablet) 1 mg G-TUBE BEDTIME [facility]; Protocol Last Admin: 01/03/23 22:52 Dose: 1 mg Documented By: BALJINDER Enoxaparin Sodium (Enoxaparin Sodium 40 Mg/0.4 Ml Syringe) 40 mg SUBCUT Q24H [facility] Last Admin: 01/03/23 17:42 Dose: 40 mg Documented By: TY Famotidine (Famotidine 20 Mg Tablet) 20 mg G-TUBE BID [facility] Last Admin: 01/04/23 09:10 Dose: 20 mg Documented By: LISA Finasteride (Finasteride 5 Mg Tablet) 5 mg PO DAILY [facility] Last Admin: 01/04/23 09:10 Dose: 5 mg Documented By: LISA Glycopyrrolate (Glycopyrrolate 1 Mg Tablet) 1 mg G-TUBE TID [facility] Last Admin: 01/04/23 09:10 Dose: 1 mg Documented By: LISA Guaifenesin (Guaifenesin 200 Mg/10 Ml 10 Ml Liquid) 10 ml G-TUBE Q4H PRN PRN Reason: Cough Guaifenesin (Guaifenesin 100 Mg/5 Ml Liquid) 10 ml G-TUBE TID [facility] Last Admin: 01/04/23 09:09 Dose: 10 ml Documented By: LISA Metronidazole (Flagyl) 500 mg in 100 mls @ 100 mls/hr IV Q8H [facility] Last Admin: 01/04/23 10:45 Dose: 100 mls/hr Documented By: LISA Vancomycin HCl 1,000 mg/ (Sodium Chloride) 270 mls @ 270 mls/hr IV Q12H [facility] Last Infusion: 01/04/23 08:56 Dose: 0 mls/hr Documented By: LISA Ketorolac Tromethamine (Ketorolac Tromethamine 15 Mg/Ml Vial) 15 mg IVPUSH Q8H PRN PRN Reason: fever Lacosamide (Lacosamide Oral Solution 100 Mg/10 Ml Solution) 200 mg G-TUBE BID [facility] Last Admin: 01/04/23 09:09 Dose: 200 mg Documented By: LISA Loperamide HCl (Loperamide Hcl Oral Liquid 2 Mg/15 Ml Liquid) 2 mg G-TUBE Q4H PRN PRN Reason: Diarrhea Lorazepam (Lorazepam 2 Mg/Ml Vial) 2 mg IVPUSH Q6H PRN PRN Reason: Anxiety Melatonin (Melatonin 3 Mg Tablet) 3 mg G-TUBE BEDTIME [facility] Last Admin: 01/03/23 22:51 Dose: 3 mg Documented By: BALJINDER Midodrine (Midodrine Hcl 2.5 Mg Tablet) 7.5 mg G-TUBE TIDAC [facility] Last Admin: 01/04/23 10:45 Dose: 7.5 mg Documented By: LISA Non-Formulary Medication (Leucovorin Calcium) 25 mg G-TUBE BEDTIME [facility] Ondansetron HCl (Ondansetron Hcl 4 Mg/2 Ml Vial) 4 mg IVPUSH Q8H PRN PRN Reason: Nausea and Vomiting Oxycodone HCl (Oxycodone Hcl Immed Release 5 Mg Tablet) 5 mg G-TUBE Q4H PRN PRN Reason: Moderate Pain (Scale Score 5-6) Pharmacy Consult (Consult Rx Perform Med Rec) 1 each MISCELLANE ONCE PRN PRN Reason: Consult order Pharmacy Consult (Consult Rx Vancomycin Dosing) 1 each MISCELLANE DAILY PRN PRN Reason: Consult order Scopolamine (Scopolamine 1.5 Mg Patch.Td.3) 1.5 mg TRANSDERMA Q3D [facility] Last Admin: 01/03/23 18:02 Dose: Not Given Documented By: TY Non-Admin Reason: Med Not Available Sodium Chloride (0.9 % Sodium Chloride Flush 3 Ml Syringe) 3 ml IVFLUSH QSHIFT [facility] Last Admin: 01/04/23 09:11 Dose: 3 ml Documented By: LISA Vancomycin HCl (Vancomycin Hcl Oral Solution 125 Mg/5 Ml Soln.Recon) 125 mg PO QID [facility] Last Admin: 01/04/23 09:09 Dose: 125 mg Documented By: LISA Labs 01/04/23 05:12 01/04/23 05:12 Labs: Laboratory Results - last 24 hr 05/01/04/23 01/04/23 16:40 05:12 05:12 MCV 88.7 MCH 27.3 MCHC 30.8 L RDW 17.2 H Plt Count 185 MPV 10.2 Absolute Nucleated RBC 0.000 Nucleated RBC % (auto) 0.0 ESR Anion Gap 12 Estim Creat Clear Calc 97.9 Estimated GFR > 60 Random Glucose 153 H Calcium 7.7 L D Random Vancomycin 11.8 L 01/04/23 05:13 MCV MCH MCHC RDW Plt Count MPV Absolute Nucleated RBC Nucleated RBC % (auto) ESR 106 H Anion Gap Estim Creat Clear Calc Estimated GFR Random Glucose Calcium Random Vancomycin Microbiology Microbiology Results: Microbiology 01/02/23 Unknown Urine Culture - Final Urine Catheterized - Rubio Catheter Pseudomonas aeruginosa 01/02/23 11:45 Blood Culture - Preliminary Blood - Venous No growth after 24 hours. 01/02/23 11:34 Blood Culture - Preliminary Blood - Venous No growth after 24 hours. Assessment and Plan (1) Sepsis: Status: Acute (2) Stage IV decubitus ulcer: Status: Acute (3) Osteomyelitis of pelvis: Status: Acute (4) C. difficile colitis: Status: Acute Plan Pt is a 52-year-old male with a PMH significant for?stage IV mantle cell lymphoma, INSTRUMENT FITTER toxoplasmosis, acute on chronic respiratory failure with trach in place on 35% trach mask, normocytic anemia, BPH, urinary retention with chronic catheter in place, seizure disorder, G-tube in place, who presents to the ED from [facility] for evaluation of fever. CT positive for colitis and likely osteomyelitis of pelvis. Patient be admitted to the hospital for treatment further evaluation of C diff colitis and likely osteomyelitis of the pelvis. Sepsis 2/2 C.Diff Colitis no fever overnight CT of abdomen and pelvis showed moderately severe ascending colitis from rectum to mid ascending colon without obstruction, perforation, free air positive for C diff vancomycin p.o. and Flagyl Contact precautions ID consult Question of osteomyelitis of greater trochanters CT of abdomen pelvis found bilateral penetrating ulcers underlying the hips with with speech periosteal reaction to the right and left greater trochanters possible of early osteomyelitis ESR Patient will be covered by vancomycin IV ID consult, continue Vancomycin and IV Flagyl and po Vancomycin for now. 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 Time Spent With Patient Time: Total time managing care of this patient today ____ minutes. Quality Stroke Does the patient have a stroke diagnosis?: No VTE Prior VTE?: No VTE Risk Level:: Medical - moderate - high VTE Device Contraindication: Treatment Not Indicated VTE Drug Contraindication: N/A - Med Ordered
--- NOTE | 2023-01-04 14:44 | PC.NURSE ---
Patients rincon changed out per md order. New 16F rincon catheter inserted at 1345 with no difficulty.
[2023-01-04 15:52] VITALS: BP 100/63; PULSE 100; RESP 19; TEMP 36.6; O2SAT 98
[2023-01-04 16:58] LABS: Vancomycin Trough 11.6 mcg/mL (10.0-20.0)
[2023-01-04] MEDS: vancomycin HCL 1,250 MG in 0.9 % Sodium Chloride 250 ML 166.67 MG IV (18:07)
[2023-01-04] MEDS: Enoxaparin Sodium 40 MG/0.4 ML SYRINGE SUBCUT (18:17)
[2023-01-04 19:22] VITALS: BP 92/57; PULSE 99; RESP 19; TEMP 36.7; O2SAT 97
[2023-01-04] MEDS: Doxazosin Mesylate 1 MG TABLET G-TUBE (21:05)
[2023-01-04] MEDS: Melatonin 3 MG TABLET G-TUBE (21:05)
[2023-01-05] MEDS: metroNIDAZOLE/NS 500 MG/100 ML PIGGYBACK 100 MG IV ×3 (02:28→19:30)
[2023-01-05 03:36] VITALS: BP 98/55; PULSE 98; RESP 18; TEMP 36.8; O2SAT 98
[2023-01-05] MEDS: vancomycin HCL 1,250 MG in 0.9 % Sodium Chloride 250 ML 166.67 MG IV (06:11)
[2023-01-05 06:22] LABS: Anion Gap 11 (12-20); Blood Urea Nitrogen 20 mg/dL (9-16); Calcium 7.9 mg/dL (8.4-10.2); Carbon Dioxide 24 mmol/L (22-29); Chloride 115 mmol/L (96-108); Creatinine Clr Calc Pharmacy 110.6; Estimated Glomerular Filt Rate > 60; Glucose Random 124 mg/dL (60-115); Hemoglobin 7.9 g/dl (14.0-18.0); Mean Corpuscular HGB Conc 29.3 g/dl (31.0-36.0); Mean Corpuscular Hemoglobin 26.6 pg (27.0-33.0); Mean Corpuscular Volume 90.9 fL (80.0-98.0); Mean Platelet Volume 9.9 fL (9.4-12.4); Platelet Count 190 X10*3/uL (160-400); Potassium 3.3 mmol/L (3.3-5.1); Red Blood Count 2.97 X10*6/uL (4.60-5.80); Red Cell Distribution Width 17.2 % (11.0-16.0); Sodium 147 mmol/L (135-145); White Blood Count 4.7 X10*3/uL (4.8-10.8)
[2023-01-05 07:19] VITALS: BP 100/57; PULSE 92; RESP 18; TEMP 36.6; O2SAT 94
[2023-01-05] MEDS: Lacosamide Oral Solution 100 MG/10 ML SOLUTION 200 MG G-TUBE ×2 (09:27→21:02)
[2023-01-05] MEDS: Chlorhexidine Gluc Oral Rinse 15 ML MOUTHWASH BUCCAL ×2 (09:27→21:02)
[2023-01-05] MEDS: guaiFENesin 100 MG/5 ML LIQUID 10 ML G-TUBE ×3 (09:27→21:02)
[2023-01-05] MEDS: Cholestyramine (With Sugar) 4 GM POWD.PACK G-TUBE (09:27)
[2023-01-05] MEDS: Atovaquone 750 MG/5 ML ORAL.SUSP G-TUBE ×2 (09:27→21:02)
[2023-01-05] MEDS: Midodrine HCl 2.5 MG TABLET 7.5 MG G-TUBE ×3 (09:27→16:26)
[2023-01-05] MEDS: vancomycin HCL Oral Solution 125 MG/5 ML SOLN.RECON PO ×4 (09:27→21:02)
[2023-01-05] MEDS: Famotidine 20 MG TABLET G-TUBE ×2 (09:28→21:02)
[2023-01-05] MEDS: Baclofen 10 MG TABLET 5 MG G-TUBE ×3 (09:28→21:03)
[2023-01-05] MEDS: Glycopyrrolate 1 MG TABLET G-TUBE ×3 (09:28→21:02)
[2023-01-05] MEDS: Finasteride 5 MG TABLET PO (09:28)
[2023-01-05] MEDS: 0.9 % Sodium Chloride Flush 3 ML SYRINGE IVFLUSH ×3 (09:40→23:25)
--- NOTE | 2023-01-05 10:26 | HO.PM.IMPN ---
Subjective Subjective Date of Service: 01/05/23 Interval History: still with loose stools Physical Exam Vital Signs: Vital Signs: Last Vital Signs Temp 97.9 F 01/05/23 07:19 Pulse 92 01/05/23 07:19 Resp 18 01/05/23 07:19 BP 100/57 L 01/05/23 07:19 Pulse Ox 94 01/05/23 07:19 O2 Del Method Trach Collar 01/05/23 03:36 O2 Flow Rate 8 01/05/23 03:36 FiO2 35 01/05/23 03:36 Oxygen Flow Rate 8 01/02/23 11:18 BMI result Body Mass Index 20.5 Const: Other: Constitutional : Awake, not in distress Neck : Normal inspection, Supple Cardiovascular : RRR, no JVP, no lower extremity edema Respiratory : good bilateral air entry, no crackles Gastrointestinal: soft, lax, Normal bowel sounds, G-tube in place, no significant tenderness Skin : Warm, Dry, decubetus ulcers, deep on the side with large puncture, black discolored skin rectal area Neurological : Alert, No focal deficit but retracted Objective Data Active Medications Acetaminophen (Acetaminophen 325 Mg Tablet) 650 mg G-TUBE Q4H PRN PRN Reason: Fever Or Pain Last Admin: 01/03/23 12:51 Dose: 650 mg Documented By: TY Albuterol Sulfate (Albuterol Sulfate (0.083%) 2.5 Mg/3 Ml Vial.Neb) 2.5 mg INHALE Q4H PRN PRN Reason: Shortness Of Breath Or Wheezing Atovaquone (Atovaquone 750 Mg/5 Ml Oral.Susp) 750 mg G-TUBE BID [facility] Last Admin: 01/05/23 09:27 Dose: 750 mg Documented By: TESS Baclofen (Baclofen 10 Mg Tablet) 5 mg G-TUBE TID [facility] Last Admin: 01/05/23 09:28 Dose: 5 mg Documented By: TESS Chlorhexidine Gluconate (Chlorhexidine Gluc Oral Rinse 15 Ml Mouthwash) 15 ml BUCCAL BID [facility] Last Admin: 01/05/23 09:27 Dose: 15 ml Documented By: TESS Cholestyramine Resin (Cholestyramine (With Sugar) 4 Gm Powd.Pack) 4 gm G-TUBE DAILY [facility] Last Admin: 01/05/23 09:27 Dose: 4 gm Documented By: TESS Doxazosin Mesylate (Doxazosin Mesylate 1 Mg Tablet) 1 mg G-TUBE BEDTIME [facility]; Protocol Last Admin: 01/04/23 21:05 Dose: 1 mg Documented By: HITESH Enoxaparin Sodium (Enoxaparin Sodium 40 Mg/0.4 Ml Syringe) 40 mg SUBCUT Q24H [facility] Last Admin: 01/04/23 18:17 Dose: 40 mg Documented By: HITESH Famotidine (Famotidine 20 Mg Tablet) 20 mg G-TUBE BID [facility] Last Admin: 01/05/23 09:28 Dose: 20 mg Documented By: TESS Finasteride (Finasteride 5 Mg Tablet) 5 mg PO DAILY [facility] Last Admin: 01/05/23 09:28 Dose: 5 mg Documented By: TESS Glycopyrrolate (Glycopyrrolate 1 Mg Tablet) 1 mg G-TUBE TID [facility] Last Admin: 01/05/23 09:28 Dose: 1 mg Documented By: TESS Guaifenesin (Guaifenesin 200 Mg/10 Ml 10 Ml Liquid) 10 ml G-TUBE Q4H PRN PRN Reason: Cough Guaifenesin (Guaifenesin 100 Mg/5 Ml Liquid) 10 ml G-TUBE TID [facility] Last Admin: 01/05/23 09:27 Dose: 10 ml Documented By: TESS Metronidazole (Flagyl) 500 mg in 100 mls @ 100 mls/hr IV Q8H [facility] Last Infusion: 01/05/23 03:30 Dose: 0 mls/hr Documented By: HITESH Vancomycin HCl 1,250 mg/ (Sodium Chloride) 250 mls @ 166.667 mls/hr IV Q12H [facility] Last Infusion: 01/05/23 07:49 Dose: 0 mls/hr Documented By: TESS Ketorolac Tromethamine (Ketorolac Tromethamine 15 Mg/Ml Vial) 15 mg IVPUSH Q8H PRN PRN Reason: fever Lacosamide (Lacosamide Oral Solution 100 Mg/10 Ml Solution) 200 mg G-TUBE BID [facility] Last Admin: 01/05/23 09:27 Dose: 200 mg Documented By: TESS Loperamide HCl (Loperamide Hcl Oral Liquid 2 Mg/15 Ml Liquid) 2 mg G-TUBE Q4H PRN PRN Reason: Diarrhea Lorazepam (Lorazepam 2 Mg/Ml Vial) 2 mg IVPUSH Q6H PRN PRN Reason: Anxiety Melatonin (Melatonin 3 Mg Tablet) 3 mg G-TUBE BEDTIME [facility] Last Admin: 01/04/23 21:05 Dose: 3 mg Documented By: HITESH Midodrine (Midodrine Hcl 2.5 Mg Tablet) 7.5 mg G-TUBE TIDAC [facility] Last Admin: 01/05/23 09:27 Dose: 7.5 mg Documented By: TESS Non-Formulary Medication (Leucovorin Calcium) 25 mg G-TUBE BEDTIME [facility] Ondansetron HCl (Ondansetron Hcl 4 Mg/2 Ml Vial) 4 mg IVPUSH Q8H PRN PRN Reason: Nausea and Vomiting Oxycodone HCl (Oxycodone Hcl Immed Release 5 Mg Tablet) 5 mg G-TUBE Q4H PRN PRN Reason: Moderate Pain (Scale Score 5-6) Pharmacy Consult (Consult Rx Perform Med Rec) 1 each MISCELLANE ONCE PRN PRN Reason: Consult order Pharmacy Consult (Consult Rx Vancomycin Dosing) 1 each MISCELLANE DAILY PRN PRN Reason: Consult order Scopolamine (Scopolamine 1.5 Mg Patch.Td.3) 1.5 mg TRANSDERMA Q3D [facility] Last Admin: 01/03/23 18:02 Dose: Not Given Documented By: TY Non-Admin Reason: Med Not Available Sodium Chloride (0.9 % Sodium Chloride Flush 3 Ml Syringe) 3 ml IVFLUSH QSHIFT [facility] Last Admin: 01/05/23 09:40 Dose: 3 ml Documented By: TESS Vancomycin HCl (Vancomycin Hcl Oral Solution 125 Mg/5 Ml Soln.Recon) 125 mg PO QID [facility] Last Admin: 01/05/23 09:27 Dose: 125 mg Documented By: TESS Labs 01/05/23 05:31 01/05/23 05:31 Labs: Laboratory Results - last 24 hr 01/04/23 01/05/23 01/05/23 16:00 05:31 05:31 MCV 90.9 MCH 26.6 L MCHC 29.3 L RDW 17.2 H Plt Count 190 MPV 9.9 Absolute Nucleated RBC 0.000 Nucleated RBC % (auto) 0.0 Anion Gap 11 L Estim Creat Clear Calc 110.6 Estimated GFR > 60 Random Glucose 124 H Calcium 7.9 L Vancomycin Trough 11.6 Microbiology Microbiology Results: Microbiology 01/04/23 16:17 Gram Stain - Final Sputum - Suctioned Sputum Culture - Preliminary Culture in progress. 01/02/23 11:45 Blood Culture - Preliminary Blood - Venous No growth after 48 hours. 01/02/23 11:34 Blood Culture - Preliminary Blood - Venous No growth after 48 hours. 01/02/23 Unknown Urine Culture - Final Urine Catheterized - Rubio Catheter Pseudomonas aeruginosa Assessment and Plan (1) Sepsis: Status: Acute (2) Stage IV decubitus ulcer: Status: Acute (3) Osteomyelitis of pelvis: Status: Acute (4) C. 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 CT positive for colitis and likely osteomyelitis of pelvis. positive cdif Sepsis 2/[address] of abdomen and pelvis showed moderately severe ascending colitis from rectum to mid ascending colon without obstruction, perforation, free air positive for C diff vancomycin p.o. and iv Flagyl Contact precautions still with diarrhea Question of osteomyelitis of greater trochanters CT of abdomen pelvis found bilateral penetrating ulcers underlying the hips with with speech periosteal reaction to the right and left greater trochanters possible of early osteomyelitis ESR Patient will be covered by vancomycin IV and flagyl surgery appreciated no acute surgical intervention at this time UTI in chronic Rubio catheter growing Pseudomonas likely colonizer, hold on treatement for now Stage IV decubitus ulcers Patient has bilateral penetrating stage IV decubitus ulcers on buttocks Air loss mattress Patient positioning q2h General surgery, no debridement needed, wound care to follow Diet Pt has G-tube in place Osmolite 1.5, Prosource, Brice, 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 Quality Stroke Does the patient have a stroke diagnosis?: No VTE Prior VTE?: No VTE Risk Level:: Medical - moderate - high VTE Device Contraindication: Treatment Not Indicated VTE Drug Contraindication: N/A - Med Ordered
--- NOTE | 2023-01-05 12:40 | MHC.CM.PN ---
[facility]
--- NOTE | 2023-01-05 13:06 | MHC.CLN ---
F/U PATIENT WITH TRACH AND PEG TUBE. REQUIRES NUTRITION/HYDRATION VIA PEG. INCREASED NUTRITION NEEDS DUE IMPAIRED SKIN: STAGE IV PRESSURE INJURIES, UNSTAGEABLE AREAS. APPEARS TO BE TOLERATING CURRENT TUBE FEEDING AT 70 ML PER HOUR. OSMOLITE 1.5 AT 70 ML PER HOUR X 18 HOURS; FREE WATER FLUSH 300 ML Q 6 HOURS; 30 ML PROSOURCE BID (120 KCALS, 30 G PROTEIN), 1 PACKET PARESH BID (160 KCALS, 5 G PROTEIN). PROVIDES 2170 TOTAL KCALS (35.5 KCALS/KG) 114 G PROTEIN (1.87 G/KG) 2160 ML FREE WATER FROM FORMULA AND FLUSH (35.4 ML/KG) ADDITIONAL PROTEIN TO PROMOTE WOUND HEALING. CONTINUE CURRENT TUBE FEED, FLUSH, PROTEIN SUPPLEMENTS. FOLLOW FOR TUBE FEED TOLERANCE, RESIDUALS, LABS, WOUND HEALING.
[2023-01-05 15:06] VITALS: BP 114/67; PULSE 91; RESP 20; TEMP 36.4; O2SAT 98
--- NOTE | 2023-01-05 16:35 | P.EN_ITS ---
Event Note Date of Service: 01/05/23 Event Note: Dr. Bettina Ortiz from [facility] - [phone] or [phone] (cell) Time Spent With Patient Time: Total time managing care of this patient today ____ minutes.
--- NOTE | 2023-01-05 16:35 | PM.EVENT ---
Event Note Date of Service: 01/05/23 Event Note: Dr. Bettina Ortiz from [facility] - [phone] or [phone] (cell) Time Spent With Patient Time: Total time managing care of this patient today ____ minutes.
--- NOTE | 2023-01-05 16:44 | HE.PHANOTE ---
Vancomycin Dosing Addendum Patients level came back at 17. Patients renal function is stable. changed dose to 1000 mg Q12H. Next draw 01/06 @1600
[2023-01-05] MEDS: Enoxaparin Sodium 40 MG/0.4 ML SYRINGE SUBCUT (17:31)
[2023-01-05] MEDS: vancomycin HCL 1,000 MG in 0.9 % Sodium Chloride 250 ML 270 MG IV (17:32)
[2023-01-05] MEDS: Sulfameth/Trimet 800/160/20 ML 20 ML ORAL.SUSP PO (19:30)
[2023-01-05 19:33] VITALS: BP 105/70; PULSE 87; RESP 18; TEMP 36.6; O2SAT 100
[2023-01-05] MEDS: Doxazosin Mesylate 1 MG TABLET G-TUBE (21:02)
[2023-01-05] MEDS: Melatonin 3 MG TABLET G-TUBE (21:03)
[2023-01-06] MEDS: metroNIDAZOLE/NS 500 MG/100 ML PIGGYBACK 100 MG IV ×3 (02:20→18:20)
[2023-01-06 04:00] VITALS: BP 98/62; PULSE 88; RESP 16; TEMP 36.6; O2SAT 97
[2023-01-06] MEDS: vancomycin HCL 1,000 MG in 0.9 % Sodium Chloride 250 ML 270 MG IV ×2 (05:41→17:14)
[2023-01-06 06:09] LABS: Hematocrit 26.7 % (42.0-52.0); Mean Corpuscular Hemoglobin 27.1 pg (27.0-33.0); Mean Corpuscular Volume 90.5 fL (80.0-98.0); Mean Platelet Volume 10.5 fL (9.4-12.4); Platelet Count 189 X10*3/uL (160-400); Red Blood Count 2.95 X10*6/uL (4.60-5.80); Red Cell Distribution Width 17.2 % (11.0-16.0); White Blood Count 3.7 X10*3/uL (4.8-10.8)
[2023-01-06 06:26] LABS: Anion Gap 11 (12-20); Blood Urea Nitrogen 17 mg/dL (9-16); Calcium 7.8 mg/dL (8.4-10.2); Carbon Dioxide 25 mmol/L (22-29); Chloride 114 mmol/L (96-108); Creatinine Clr Calc Pharmacy 113.9; Estimated Glomerular Filt Rate > 60; Glucose Fasting 133 mg/dL (60-99); Potassium 3.3 mmol/L (3.3-5.1); Sodium 147 mmol/L (135-145)
[2023-01-06 07:41] VITALS: BP 103/66; PULSE 85; RESP 22; TEMP 36.5; O2SAT 98
[2023-01-06] MEDS: Lacosamide Oral Solution 100 MG/10 ML SOLUTION 200 MG G-TUBE ×2 (09:52→22:15)
[2023-01-06] MEDS: vancomycin HCL Oral Solution 125 MG/5 ML SOLN.RECON PO ×4 (09:52→22:15)
[2023-01-06] MEDS: guaiFENesin 100 MG/5 ML LIQUID 10 ML G-TUBE ×3 (09:53→22:16)
[2023-01-06] MEDS: Atovaquone 750 MG/5 ML ORAL.SUSP G-TUBE ×2 (09:53→22:16)
[2023-01-06] MEDS: Baclofen 10 MG TABLET 5 MG G-TUBE ×3 (09:53→22:16)
[2023-01-06] MEDS: Cholestyramine (With Sugar) 4 GM POWD.PACK G-TUBE (09:53)
[2023-01-06] MEDS: Glycopyrrolate 1 MG TABLET G-TUBE ×3 (09:53→22:16)
[2023-01-06] MEDS: Chlorhexidine Gluc Oral Rinse 15 ML MOUTHWASH BUCCAL ×2 (09:53→22:15)
[2023-01-06] MEDS: Finasteride 5 MG TABLET PO (09:54)
[2023-01-06] MEDS: Famotidine 20 MG TABLET G-TUBE ×2 (09:54→22:32)
[2023-01-06] MEDS: 0.9 % Sodium Chloride Flush 3 ML SYRINGE IVFLUSH ×2 (10:10→15:29)
--- NOTE | 2023-01-06 10:22 | HO.PM.IMPN ---
Subjective Subjective Date of Service: 01/06/23 Interval History: still with diarrhea but less Physical Exam Vital Signs: Vital Signs: Last Vital Signs Temp 97.7 F 01/06/23 07:41 Pulse 85 01/06/23 07:41 Resp 22 H 01/06/23 07:41 BP 103/66 01/06/23 07:41 Pulse Ox 98 01/06/23 07:41 O2 Del Method Trach Collar 01/06/23 07:41 O2 Flow Rate 35 01/06/23 07:41 FiO2 35 01/05/23 19:33 Oxygen Flow Rate 8 01/02/23 11:18 BMI result Body Mass Index 20.5 Const: Other: Constitutional : Awake, not in distress Neck : Normal inspection, Supple Cardiovascular : RRR, no JVP, no lower extremity edema Respiratory : good bilateral air entry, no crackles Gastrointestinal: soft, lax, Normal bowel sounds, G-tube in place, no significant tenderness Skin : Warm, Dry, decubetus ulcers, deep on the side with large puncture, black discolored skin rectal area Neurological : Alert, No focal deficit but retracted Objective Data Active Medications Acetaminophen (Acetaminophen 325 Mg Tablet) 650 mg G-TUBE Q4H PRN PRN Reason: Fever Or Pain Last Admin: 01/03/23 12:51 Dose: 650 mg Documented By: TY Albuterol Sulfate (Albuterol Sulfate (0.083%) 2.5 Mg/3 Ml Vial.Neb) 2.5 mg INHALE Q4H PRN PRN Reason: Shortness Of Breath Or Wheezing Atovaquone (Atovaquone 750 Mg/5 Ml Oral.Susp) 750 mg G-TUBE BID [facility] Last Admin: 01/06/23 09:53 Dose: 750 mg Documented By: ANNELIESE Baclofen (Baclofen 10 Mg Tablet) 5 mg G-TUBE TID [facility] Last Admin: 01/06/23 09:53 Dose: 5 mg Documented By: ANNELIESE Chlorhexidine Gluconate (Chlorhexidine Gluc Oral Rinse 15 Ml Mouthwash) 15 ml BUCCAL BID [facility] Last Admin: 01/06/23 09:53 Dose: 15 ml Documented By: ANNELIESE Cholestyramine Resin (Cholestyramine (With Sugar) 4 Gm Powd.Pack) 4 gm G-TUBE DAILY [facility] Last Admin: 01/06/23 09:53 Dose: 4 gm Documented By: ANNELIESE Collagenase (Collagenase Clostridium Hist. 30 Gm Tube) 1 appl TOPICAL DAILY [facility]; Protocol Doxazosin Mesylate (Doxazosin Mesylate 1 Mg Tablet) 1 mg G-TUBE BEDTIME [facility]; Protocol Last Admin: 01/05/23 21:02 Dose: 1 mg Documented By: HITESH Enoxaparin Sodium (Enoxaparin Sodium 40 Mg/0.4 Ml Syringe) 40 mg SUBCUT Q24H [facility] Last Admin: 01/05/23 17:31 Dose: 40 mg Documented By: TESS Famotidine (Famotidine 20 Mg Tablet) 20 mg G-TUBE BID [facility] Last Admin: 01/06/23 09:54 Dose: 20 mg Documented By: ANNELIESE Finasteride (Finasteride 5 Mg Tablet) 5 mg PO DAILY [facility] Last Admin: 01/06/23 09:54 Dose: 5 mg Documented By: ANNELIESE Glycopyrrolate (Glycopyrrolate 1 Mg Tablet) 1 mg G-TUBE TID [facility] Last Admin: 01/06/23 09:53 Dose: 1 mg Documented By: ANNELIESE Guaifenesin (Guaifenesin 200 Mg/10 Ml 10 Ml Liquid) 10 ml G-TUBE Q4H PRN PRN Reason: Cough Guaifenesin (Guaifenesin 100 Mg/5 Ml Liquid) 10 ml G-TUBE TID [facility] Last Admin: 01/06/23 09:53 Dose: 10 ml Documented By: ANNELIESE Metronidazole (Flagyl) 500 mg in 100 mls @ 100 mls/hr IV Q8H [facility] Last Infusion: 01/06/23 03:20 Dose: 0 mls/hr Documented By: HITESH Vancomycin HCl 1,000 mg/ (Sodium Chloride) 270 mls @ 270 mls/hr IV Q12H [facility] Last Infusion: 01/06/23 06:46 Dose: 0 mls/hr Documented By: HITESH Ketorolac Tromethamine (Ketorolac Tromethamine 15 Mg/Ml Vial) 15 mg IVPUSH Q8H PRN PRN Reason: fever Lacosamide (Lacosamide Oral Solution 100 Mg/10 Ml Solution) 200 mg G-TUBE BID [facility] Last Admin: 01/06/23 09:52 Dose: 200 mg Documented By: ANNELIESE Loperamide HCl (Loperamide Hcl Oral Liquid 2 Mg/15 Ml Liquid) 2 mg G-TUBE Q4H PRN PRN Reason: Diarrhea Lorazepam (Lorazepam 2 Mg/Ml Vial) 2 mg IVPUSH Q6H PRN PRN Reason: Anxiety Melatonin (Melatonin 3 Mg Tablet) 3 mg G-TUBE BEDTIME [facility] Last Admin: 01/05/23 21:03 Dose: 3 mg Documented By: HITESH Midodrine (Midodrine Hcl 2.5 Mg Tablet) 7.5 mg G-TUBE TIDAC [facility] Last Admin: 01/06/23 10:10 Dose: Not Given Documented By: COTTERESA Non-Admin Reason: due at 11am Non-Formulary Medication (Leucovorin Calcium) 25 mg G-TUBE BEDTIME [facility] Ondansetron HCl (Ondansetron Hcl 4 Mg/2 Ml Vial) 4 mg IVPUSH Q8H PRN PRN Reason: Nausea and Vomiting Oxycodone HCl (Oxycodone Hcl Immed Release 5 Mg Tablet) 5 mg G-TUBE Q4H PRN PRN Reason: Moderate Pain (Scale Score 5-6) Pharmacy Consult (Consult Rx Perform Med Rec) 1 each MISCELLANE ONCE PRN PRN Reason: Consult order Pharmacy Consult (Consult Rx Vancomycin Dosing) 1 each MISCELLANE DAILY PRN PRN Reason: Consult order Scopolamine (Scopolamine 1.5 Mg Patch.Td.3) 1.5 mg TRANSDERMA Q3D [facility] Last Admin: 01/03/23 18:02 Dose: Not Given Documented By: TY Non-Admin Reason: Med Not Available Sodium Chloride (0.9 % Sodium Chloride Flush 3 Ml Syringe) 3 ml IVFLUSH QSHIFT [facility] Last Admin: 01/06/23 10:10 Dose: 3 ml Documented By: ANNELIESE Trimethoprim/Sulfamethoxazole (Sulfameth/Trimet 800/160/20 Ml 20 Ml Oral.Susp) 20 ml PO [id number] [facility] Last Admin: 01/05/23 19:30 Dose: 20 ml Documented By: HITESH Vancomycin HCl (Vancomycin Hcl Oral Solution 125 Mg/5 Ml Soln.Recon) 125 mg PO QID [facility] Last Admin: 01/06/23 09:52 Dose: 125 mg Documented By: ANNELIESE Labs 01/06/23 05:31 01/06/23 05:31 Labs: Laboratory Results - last 24 hr 01/05/23 01/06/23 01/06/23 15:51 05:31 05:31 MCV 90.5 MCH 27.1 MCHC 30.0 L RDW 17.2 H Plt Count 189 MPV 10.5 Absolute Nucleated RBC 0.000 Nucleated RBC % (auto) 0.0 Anion Gap 11 L Estim Creat Clear Calc 113.9 Estimated GFR > 60 Fasting Glucose 133 H Calcium 7.8 L Random Vancomycin 17.0 Microbiology Microbiology Results: Microbiology 01/04/23 16:17 Gram Stain - Final Sputum - Suctioned Sputum Culture - Preliminary Gram negative jessie Gram negative jessie#2 Assessment and Plan (1) Sepsis: Status: Acute (2) Stage IV decubitus ulcer: Status: Acute (3) Osteomyelitis of pelvis: Status: Acute (4) C. 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 CT positive for colitis and likely osteomyelitis of pelvis. positive cdif Sepsis and acute metabolic encephalopathy 2/[address] of abdomen and pelvis showed moderately severe ascending colitis from rectum to mid ascending colon without obstruction, perforation, free air positive for C diff vancomycin p.o. and iv Flagyl Contact precautions still with diarrhea, though slowing down, conitnue to monitor multiple DTI, unstageable, stage III, and stage IV pressure ulcers see wound care note for descriptions and recommendations Question of osteomyelitis of greater trochanters CT of abdomen pelvis found bilateral penetrating ulcers underlying the hips with with speech periosteal reaction to the right and left greater trochanters possible of early osteomyelitis Patient will be covered by vancomycin IV and flagyl surgery appreciated no acute surgical intervention at this time UTI in chronic Rubio catheter growing Pseudomonas likely colonizer, hold on treatment for now Diet Pt has G-tube in place Osmolite 1.5, Prosource, Brice, 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 follow up hypernatremia increase free fluid, monitor Stage IV mantle cell lymphoma in remission [employer]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 Quality Stroke Does the patient have a stroke diagnosis?: No VTE Prior VTE?: No VTE Risk Level:: Medical - moderate - high VTE Device Contraindication: Treatment Not Indicated VTE Drug Contraindication: N/A - Med Ordered
[2023-01-06] MEDS: Midodrine HCl 2.5 MG TABLET 7.5 MG G-TUBE ×2 (11:50→15:28)
[2023-01-06] MEDS: Collagenase Clostridium Hist. 30 GM TUBE 1 APPL TOPICAL (11:53)
--- NOTE | 2023-01-06 14:40 | MHC.CM.PN ---
CM SPOKE TO NGUYEN FROM [facility] SHE IS NOW AWARE PT WILL LIKELY BE READY TO DC TOMORROW UPDATES SENT VIA [employer] [phone]
[2023-01-06 15:25] VITALS: BP 112/72; PULSE 83; RESP 22; TEMP 36.2; O2SAT 97
[2023-01-06 16:45] LABS: Vancomycin Random 14.7 mcg/mL (15-20)
--- NOTE | 2023-01-06 16:59 | HE.PHANOTE ---
Vancomycin Dosing Addendum Patients level came back this afternoon at 14.7. Continue current dose of 100 mg Q12H, next draw tomorrow 01/07 @1600.
[2023-01-06] MEDS: Enoxaparin Sodium 40 MG/0.4 ML SYRINGE SUBCUT (17:15)
[2023-01-06] MEDS: Scopolamine 1.5 MG PATCH.TD.3 TRANSDERMA (18:21)
[2023-01-06 19:23] VITALS: BP 115/62; PULSE 88; RESP 18; TEMP 36.6; O2SAT 95
[2023-01-06] MEDS: Loperamide HCl Oral Liquid 2 MG/15 ML LIQUID G-TUBE (22:15)
[2023-01-06] MEDS: Doxazosin Mesylate 1 MG TABLET G-TUBE (22:16)
[2023-01-06] MEDS: Melatonin 3 MG TABLET G-TUBE (22:17)
[2023-01-07] MEDS: 0.9 % Sodium Chloride Flush 3 ML SYRINGE IVFLUSH ×4 (01:29→21:10)
[2023-01-07] MEDS: metroNIDAZOLE/NS 500 MG/100 ML PIGGYBACK 100 MG IV ×3 (02:47→19:11)
[2023-01-07 03:37] VITALS: BP 99/61; PULSE 90; RESP 18; TEMP 36.9; O2SAT 99
[2023-01-07 05:58] LABS: Hematocrit 26.7 % (42.0-52.0); Mean Corpuscular Hemoglobin 27.2 pg (27.0-33.0); Mean Corpuscular Volume 90.8 fL (80.0-98.0); Mean Platelet Volume 10.6 fL (9.4-12.4); Platelet Count 201 X10*3/uL (160-400); Red Blood Count 2.94 X10*6/uL (4.60-5.80); Red Cell Distribution Width 16.7 % (11.0-16.0); White Blood Count 4.2 X10*3/uL (4.8-10.8)
[2023-01-07] MEDS: vancomycin HCL 1,000 MG in 0.9 % Sodium Chloride 250 ML 270 MG IV (06:04)
[2023-01-07 06:15] LABS: Anion Gap 12 (12-20); Blood Urea Nitrogen 18 mg/dL (9-16); Calcium 7.7 mg/dL (8.4-10.2); Carbon Dioxide 24 mmol/L (22-29); Chloride 110 mmol/L (96-108); Creatinine Clr Calc Pharmacy 121.2; Estimated Glomerular Filt Rate > 60; Glucose Fasting 135 mg/dL (60-99); Potassium 3.5 mmol/L (3.3-5.1); Sodium 142 mmol/L (135-145)
[2023-01-07 07:46] VITALS: BP 98/56; PULSE 85; RESP 18; TEMP 36.8; O2SAT 100
--- NOTE | 2023-01-07 08:49 | P.PNIM_ITS ---
Subjective Subjective Date of Service: 01/07/23 Interval History: still with diarrhea Physical Exam Vital Signs: Vital Signs: Last Vital Signs Temp 98.3 F 01/07/23 07:46 Pulse 85 01/07/23 07:46 Resp 18 01/07/23 07:46 BP 98/56 L 01/07/23 07:46 Pulse Ox 100 01/07/23 07:46 O2 Del Method Trach Collar 01/07/23 07:46 O2 Flow Rate 8 01/07/23 07:46 FiO2 35 01/07/23 07:46 Oxygen Flow Rate 8 01/02/23 11:18 BMI result Body Mass Index 20.5 Const: Other: Constitutional : Awake, not in distress Neck : Normal inspection, Supple Cardiovascular : RRR, no JVP, no lower extremity edema Respiratory : good bilateral air entry, no crackles Gastrointestinal: soft, lax, Normal bowel sounds, G-tube in place, no significant tenderness Skin : Warm, Dry, decubetus ulcers, deep on the side with large puncture, black discolored skin rectal area Neurological : Alert, No focal deficit but retracted Objective Data Active Medications Acetaminophen (Acetaminophen 325 Mg Tablet) 650 mg G-TUBE Q4H PRN PRN Reason: Fever Or Pain Last Admin: 01/03/23 12:51 Dose: 650 mg Documented By: TY Albuterol Sulfate (Albuterol Sulfate (0.083%) 2.5 Mg/3 Ml Vial.Neb) 2.5 mg INHALE Q4H PRN PRN Reason: Shortness Of Breath Or Wheezing Atovaquone (Atovaquone 750 Mg/5 Ml Oral.Susp) 750 mg G-TUBE BID [facility] Last Admin: 01/06/23 22:16 Dose: 750 mg Documented By: HITESH Baclofen (Baclofen 10 Mg Tablet) 5 mg G-TUBE TID [facility] Last Admin: 01/06/23 22:16 Dose: 5 mg Documented By: HITESH Chlorhexidine Gluconate (Chlorhexidine Gluc Oral Rinse 15 Ml Mouthwash) 15 ml BUCCAL BID [facility] Last Admin: 01/06/23 22:15 Dose: 15 ml Documented By: HITESH Cholestyramine Resin (Cholestyramine (With Sugar) 4 Gm Powd.Pack) 4 gm G-TUBE DAILY [facility] Last Admin: 01/06/23 09:53 Dose: 4 gm Documented By: ANNELIESE Collagenase (Collagenase Clostridium Hist. 30 Gm Tube) 1 appl TOPICAL DAILY [facility]; Protocol Last Admin: 01/06/23 11:53 Dose: 1 appl Documented By: ANNELIESE Doxazosin Mesylate (Doxazosin Mesylate 1 Mg Tablet) 1 mg G-TUBE BEDTIME [facility]; Protocol Last Admin: 01/06/23 22:16 Dose: 1 mg Documented By: HITESH Enoxaparin Sodium (Enoxaparin Sodium 40 Mg/0.4 Ml Syringe) 40 mg SUBCUT Q24H [facility] Last Admin: 01/06/23 17:15 Dose: 40 mg Documented By: COTEMA Famotidine (Famotidine 20 Mg Tablet) 20 mg G-TUBE BID [facility] Last Admin: 01/06/23 22:32 Dose: 20 mg Documented By: HITESH Finasteride (Finasteride 5 Mg Tablet) 5 mg PO DAILY [facility] Last Admin: 01/06/23 09:54 Dose: 5 mg Documented By: ANNELIESE Glycopyrrolate (Glycopyrrolate 1 Mg Tablet) 1 mg G-TUBE TID [facility] Last Admin: 01/06/23 22:16 Dose: 1 mg Documented By: HITESH Guaifenesin (Guaifenesin 200 Mg/10 Ml 10 Ml Liquid) 10 ml G-TUBE Q4H PRN PRN Reason: Cough Guaifenesin (Guaifenesin 100 Mg/5 Ml Liquid) 10 ml G-TUBE TID [facility] Last Admin: 01/06/23 22:16 Dose: 10 ml Documented By: HITESH Metronidazole (Flagyl) 500 mg in 100 mls @ 100 mls/hr IV Q8H [facility] Last Infusion: 01/07/23 03:49 Dose: 0 mls/hr Documented By: SASHA Vancomycin HCl 1,000 mg/ (Sodium Chloride) 270 mls @ 270 mls/hr IV Q12H [facility] Last Infusion: 01/07/23 07:09 Dose: 0 mls/hr Documented By: SASHA Ketorolac Tromethamine (Ketorolac Tromethamine 15 Mg/Ml Vial) 15 mg IVPUSH Q8H PRN PRN Reason: fever Lacosamide (Lacosamide Oral Solution 100 Mg/10 Ml Solution) 200 mg G-TUBE BID [facility] Last Admin: 01/06/23 22:15 Dose: 200 mg Documented By: HITESH Loperamide HCl (Loperamide Hcl Oral Liquid 2 Mg/15 Ml Liquid) 2 mg G-TUBE Q4H PRN PRN Reason: Diarrhea Last Admin: 01/06/23 22:15 Dose: 2 mg Documented By: HITESH Lorazepam (Lorazepam 2 Mg/Ml Vial) 2 mg IVPUSH Q6H PRN PRN Reason: Anxiety Melatonin (Melatonin 3 Mg Tablet) 3 mg G-TUBE BEDTIME [facility] Last Admin: 01/06/23 22:17 Dose: 3 mg Documented By: HITESH Midodrine (Midodrine Hcl 2.5 Mg Tablet) 7.5 mg G-TUBE TIDAC [facility] Last Admin: 01/06/23 15:28 Dose: 7.5 mg Documented By: LISA Non-Formulary Medication (Leucovorin Calcium) 25 mg G-TUBE BEDTIME [facility] Ondansetron HCl (Ondansetron Hcl 4 Mg/2 Ml Vial) 4 mg IVPUSH Q8H PRN PRN Reason: Nausea and Vomiting Oxycodone HCl (Oxycodone Hcl Immed Release 5 Mg Tablet) 5 mg G-TUBE Q4H PRN PRN Reason: Moderate Pain (Scale Score 5-6) Pharmacy Consult (Consult Rx Perform Med Rec) 1 each MISCELLANE ONCE PRN PRN Reason: Consult order Pharmacy Consult (Consult Rx Vancomycin Dosing) 1 each MISCELLANE DAILY PRN PRN Reason: Consult order Scopolamine (Scopolamine 1.5 Mg Patch.Td.3) 1.5 mg TRANSDERMA Q3D [facility] Last Admin: 01/06/23 18:21 Dose: 1.5 mg Documented By: COTTERESA Sodium Chloride (0.9 % Sodium Chloride Flush 3 Ml Syringe) 3 ml IVFLUSH QSHIFT [facility] Last Admin: 01/07/23 01:29 Dose: 3 ml Documented By: SASHA Trimethoprim/Sulfamethoxazole (Sulfameth/Trimet 800/160/20 Ml 20 Ml Oral.Susp) 20 ml PO [id number] [facility] Last Admin: 01/05/23 19:30 Dose: 20 ml Documented By: HITESH Vancomycin HCl (Vancomycin Hcl Oral Solution 125 Mg/5 Ml Soln.Dali) 125 mg PO QID [facility] Last Admin: 01/06/23 22:15 Dose: 125 mg Documented By: HITESH Labs 01/07/23 05:11 01/07/23 05:11 Labs: Laboratory Results - last 24 hr 01/06/23 01/07/23 01/07/23 16:13 05:11 05:11 MCV 90.8 MCH 27.2 MCHC 30.0 L RDW 16.7 H Plt Count 201 MPV 10.6 Absolute Nucleated RBC 0.000 Nucleated RBC % (auto) 0.0 Anion Gap 12 Estim Creat Clear Calc 121.2 Estimated GFR > 60 Fasting Glucose 135 H Calcium 7.7 L Random Vancomycin 14.7 L Microbiology Microbiology Results: Microbiology 01/04/23 16:17 Gram Stain - Final Sputum - Suctioned Sputum Culture - Preliminary Pseudomonas aeruginosa Klebsiella pneumoniae Assessment and Plan (1) Sepsis: Status: Acute (2) Stage IV decubitus ulcer: Status: Acute (3) Osteomyelitis of pelvis: Status: Acute (4) C. 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 CT positive for colitis and likely osteomyelitis of pelvis. positive cdif Sepsis and acute metabolic encephalopathy 2/[address] of abdomen and pelvis showed moderately severe ascending colitis from rectum to mid ascending colon without obstruction, perforation, free air positive for C diff vancomycin p.o. and iv Flagyl Contact precautions still with diarrhea, though slowing down, conitnue to monitor multiple DTI, unstageable, stage III, and stage IV pressure ulcers see wound care note for descriptions and recommendations Question of osteomyelitis of greater trochanters CT of abdomen pelvis found bilateral penetrating ulcers underlying the hips with with speech periosteal reaction to the right and left greater trochanters possible of early osteomyelitis Patient will be covered by vancomycin IV and flagyl surgery appreciated no acute surgical intervention at this time UTI in chronic Rubio catheter growing Pseudomonas likely colonizer, hold on treatment for now Diet Pt has G-tube in place Osmolite 1.5, Prosource, Brice, 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 follow up hypernatremia increased free fluid, monitor, improving Stage IV mantle cell lymphoma in remission [employer]ING [employer] 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 Quality Stroke Does the patient have a stroke diagnosis?: No VTE Prior VTE?: No VTE Risk Level:: Medical - moderate - high VTE Device Contraindication: Treatment Not Indicated VTE Drug Contraindication: N/A - Med Ordered
[2023-01-07] MEDS: Baclofen 10 MG TABLET 5 MG G-TUBE ×3 (09:32→21:09)
[2023-01-07] MEDS: Famotidine 20 MG TABLET G-TUBE ×2 (09:32→21:09)
[2023-01-07] MEDS: Glycopyrrolate 1 MG TABLET G-TUBE ×3 (09:33→21:09)
[2023-01-07] MEDS: Midodrine HCl 2.5 MG TABLET 7.5 MG G-TUBE ×3 (09:33→17:09)
[2023-01-07] MEDS: Chlorhexidine Gluc Oral Rinse 15 ML MOUTHWASH BUCCAL ×2 (09:33→21:08)
[2023-01-07] MEDS: Cholestyramine (With Sugar) 4 GM POWD.PACK G-TUBE (09:33)
[2023-01-07] MEDS: Lacosamide Oral Solution 100 MG/10 ML SOLUTION 200 MG G-TUBE ×2 (09:33→21:08)
[2023-01-07] MEDS: guaiFENesin 100 MG/5 ML LIQUID 10 ML G-TUBE ×3 (09:33→21:08)
[2023-01-07] MEDS: vancomycin HCL Oral Solution 125 MG/5 ML SOLN.RECON PO ×4 (09:33→21:08)
[2023-01-07] MEDS: Finasteride 5 MG TABLET PO (09:33)
[2023-01-07] MEDS: Atovaquone 750 MG/5 ML ORAL.SUSP G-TUBE ×2 (09:33→21:09)
--- NOTE | 2023-01-07 09:55 | MHC.CLN ---
F/U PATIENT WITH TRACH AND PEG TUBE. REQUIRES NUTRITION/HYDRATION VIA PEG. INCREASED NUTRITION NEEDS DUE IMPAIRED SKIN: STAGE IV PRESSURE INJURIES, UNSTAGEABLE AREAS. C DIFF POSITIVE WITH DIARRHEA. WATER FLUSHES INCREASED TO 300 ML Q 4 HOURS ON 01/05. TOLERATING CURRENT TUBE FEEDING AT MAX GOAL RATE 70 ML PER HOUR. OSMOLITE 1.5 AT 70 ML PER HOUR X 18 HOURS; FREE WATER FLUSH 300 ML Q 4 HOURS; 30 ML PROSOURCE BID (120 KCALS, 30 G PROTEIN), 1 PACKET PARESH BID (160 KCALS, 5 G PROTEIN). PROVIDES 2170 TOTAL KCALS (35.5 KCALS/KG) 114 G PROTEIN (1.87 G/KG) 2760 ML FREE WATER FROM FORMULA AND FLUSH (45.2 ML/KG) ADDITIONAL PROTEIN TO PROMOTE WOUND HEALING. CONTINUE CURRENT TUBE FEED, FLUSH, PROTEIN SUPPLEMENTS. FOLLOW FOR TUBE FEED TOLERANCE, RESIDUALS, LABS, WOUND HEALING.
[2023-01-07] MEDS: Collagenase Clostridium Hist. 30 GM TUBE 1 APPL TOPICAL (11:51)
--- NOTE | 2023-01-07 14:34 | MHC.CM.PN ---
AUGUST SPOKE TO CHELI [phone] AT [facility]. SHE REPORTS SHE SPOKE TO HER STUDENT DEVELOPMENT COORDINATOR AND WAS TOLD THEY WOULD NEED A PLAN WRITTEN FROM ID AND THEY WILL BE UNABLE TO TAKE THE PT BACK UNTIL THE C DIFF IS RESOLVED MESSAGE RELAYED TO
[2023-01-07 16:00] VITALS: BP 115/74; PULSE 80; RESP 18; TEMP 36.4; O2SAT 98
[2023-01-07 16:46] LABS: Vancomycin Random 13.1 mcg/mL (15-20)
[2023-01-07] MEDS: Enoxaparin Sodium 40 MG/0.4 ML SYRINGE SUBCUT (17:09)
[2023-01-07] MEDS: Sulfameth/Trimet 800/160/20 ML 20 ML ORAL.SUSP PO (17:09)
[2023-01-07 19:21] VITALS: BP 97/62; PULSE 79; RESP 17; TEMP 36.6; O2SAT 98
[2023-01-07] MEDS: Melatonin 3 MG TABLET G-TUBE (21:09)
[2023-01-07] MEDS: Doxazosin Mesylate 1 MG TABLET G-TUBE (21:09)
[2023-01-08] MEDS: metroNIDAZOLE/NS 500 MG/100 ML PIGGYBACK 100 MG IV ×3 (03:19→18:40)
[2023-01-08 04:00] VITALS: BP 98/67; PULSE 70; RESP 19; TEMP 36.6; O2SAT 97
[2023-01-08 06:26] LABS: Hematocrit 27.3 % (42.0-52.0); Hemoglobin 8.2 g/dl (14.0-18.0); Mean Corpuscular Hemoglobin 26.8 pg (27.0-33.0); Mean Corpuscular Volume 89.2 fL (80.0-98.0); Mean Platelet Volume 10.5 fL (9.4-12.4); Platelet Count 203 X10*3/uL (160-400); Red Blood Count 3.06 X10*6/uL (4.60-5.80); Red Cell Distribution Width 16.6 % (11.0-16.0); White Blood Count 4.3 X10*3/uL (4.8-10.8)
[2023-01-08 06:45] LABS: Anion Gap 9 (12-20); Blood Urea Nitrogen 19 mg/dL (9-16); Calcium 7.8 mg/dL (8.4-10.2); Carbon Dioxide 28 mmol/L (22-29); Chloride 109 mmol/L (96-108); Creatinine Clr Calc Pharmacy 119.3; Estimated Glomerular Filt Rate > 60; Glucose Fasting 118 mg/dL (60-99); Potassium 3.7 mmol/L (3.3-5.1); Sodium 142 mmol/L (135-145)
[2023-01-08 07:44] VITALS: BP 100/65; PULSE 86; RESP 18; TEMP 36.5; O2SAT 100
[2023-01-08] MEDS: Midodrine HCl 2.5 MG TABLET 7.5 MG G-TUBE ×3 (07:46→16:33)
[2023-01-08] MEDS: 0.9 % Sodium Chloride Flush 3 ML SYRINGE IVFLUSH ×3 (07:46→21:33)
[2023-01-08] MEDS: Atovaquone 750 MG/5 ML ORAL.SUSP G-TUBE ×2 (08:34→21:32)
[2023-01-08] MEDS: Chlorhexidine Gluc Oral Rinse 15 ML MOUTHWASH BUCCAL ×2 (08:34→21:32)
[2023-01-08] MEDS: Baclofen 10 MG TABLET 5 MG G-TUBE ×3 (08:35→21:33)
[2023-01-08] MEDS: Cholestyramine (With Sugar) 4 GM POWD.PACK G-TUBE (08:36)
[2023-01-08] MEDS: Famotidine 20 MG TABLET G-TUBE ×2 (08:36→21:33)
[2023-01-08] MEDS: Finasteride 5 MG TABLET PO (08:37)
[2023-01-08] MEDS: Glycopyrrolate 1 MG TABLET G-TUBE ×3 (08:37→21:33)
[2023-01-08] MEDS: vancomycin HCL Oral Solution 125 MG/5 ML SOLN.RECON PO ×4 (08:38→21:32)
[2023-01-08] MEDS: guaiFENesin 100 MG/5 ML LIQUID 10 ML G-TUBE ×3 (08:38→21:32)
[2023-01-08] MEDS: Lacosamide Oral Solution 100 MG/10 ML SOLUTION 200 MG G-TUBE ×2 (08:38→21:33)
--- NOTE | 2023-01-08 09:58 | HO.PM.IMPN ---
Subjective Subjective Date of Service: 01/08/23 Interval History: still with diarrhea Physical Exam Vital Signs: Vital Signs: Last Vital Signs Temp 97.7 F 01/08/23 07:44 Pulse 86 01/08/23 07:44 Resp 18 01/08/23 07:44 BP 100/65 01/08/23 07:44 Pulse Ox 100 01/08/23 07:44 O2 Del Method Room Air 01/08/23 07:44 O2 Flow Rate 8 01/08/23 04:00 FiO2 35 01/08/23 04:00 Oxygen Flow Rate 8 01/02/23 11:18 BMI result Body Mass Index 20.5 Const: Other: Constitutional : Awake, not in distress Neck : Normal inspection, Supple Cardiovascular : RRR, no JVP, no lower extremity edema Respiratory : good bilateral air entry, no crackles Gastrointestinal: soft, lax, Normal bowel sounds, G-tube in place, no significant tenderness Skin : Warm, Dry, decubetus ulcers, deep on the side with large puncture, black discolored skin rectal area Neurological : Alert, No focal deficit but retracted Objective Data Active Medications Acetaminophen (Acetaminophen 325 Mg Tablet) 650 mg G-TUBE Q4H PRN PRN Reason: Fever Or Pain Last Admin: 01/03/23 12:51 Dose: 650 mg Documented By: TY Albuterol Sulfate (Albuterol Sulfate (0.083%) 2.5 Mg/3 Ml Vial.Neb) 2.5 mg INHALE Q4H PRN PRN Reason: Shortness Of Breath Or Wheezing Atovaquone (Atovaquone 750 Mg/5 Ml Oral.Susp) 750 mg G-TUBE BID [facility] Last Admin: 01/08/23 08:34 Dose: 750 mg Documented By: TESS Baclofen (Baclofen 10 Mg Tablet) 5 mg G-TUBE TID [facility] Last Admin: 01/08/23 08:35 Dose: 5 mg Documented By: TESS Chlorhexidine Gluconate (Chlorhexidine Gluc Oral Rinse 15 Ml Mouthwash) 15 ml BUCCAL BID [facility] Last Admin: 01/08/23 08:34 Dose: 15 ml Documented By: TESS Cholestyramine Resin (Cholestyramine (With Sugar) 4 Gm Powd.Pack) 4 gm G-TUBE DAILY [facility] Last Admin: 01/08/23 08:36 Dose: 4 gm Documented By: TESS Collagenase (Collagenase Clostridium Hist. 30 Gm Tube) 1 appl TOPICAL DAILY [facility]; Protocol Last Admin: 01/07/23 11:51 Dose: 1 appl Documented By: FRANCK Doxazosin Mesylate (Doxazosin Mesylate 1 Mg Tablet) 1 mg G-TUBE BEDTIME [facility]; Protocol Last Admin: 01/07/23 21:09 Dose: 1 mg Documented By: FABIANA Enoxaparin Sodium (Enoxaparin Sodium 40 Mg/0.4 Ml Syringe) 40 mg SUBCUT Q24H [facility] Last Admin: 01/07/23 17:09 Dose: 40 mg Documented By: FABIANA Famotidine (Famotidine 20 Mg Tablet) 20 mg G-TUBE BID [facility] Last Admin: 01/08/23 08:36 Dose: 20 mg Documented By: TESS Finasteride (Finasteride 5 Mg Tablet) 5 mg PO DAILY [facility] Last Admin: 01/08/23 08:37 Dose: 5 mg Documented By: TESS Glycopyrrolate (Glycopyrrolate 1 Mg Tablet) 1 mg G-TUBE TID [facility] Last Admin: 01/08/23 08:37 Dose: 1 mg Documented By: TESS Guaifenesin (Guaifenesin 200 Mg/10 Ml 10 Ml Liquid) 10 ml G-TUBE Q4H PRN PRN Reason: Cough Guaifenesin (Guaifenesin 100 Mg/5 Ml Liquid) 10 ml G-TUBE TID [facility] Last Admin: 01/08/23 08:38 Dose: 10 ml Documented By: TESS Metronidazole (Flagyl) 500 mg in 100 mls @ 100 mls/hr IV Q8H [facility] Last Infusion: 01/08/23 04:19 Dose: 0 mls/hr Documented By: FABIANA Ketorolac Tromethamine (Ketorolac Tromethamine 15 Mg/Ml Vial) 15 mg IVPUSH Q8H PRN PRN Reason: fever Lacosamide (Lacosamide Oral Solution 100 Mg/10 Ml Solution) 200 mg G-TUBE BID [facility] Last Admin: 01/08/23 08:38 Dose: 200 mg Documented By: TESS Loperamide HCl (Loperamide Hcl Oral Liquid 2 Mg/15 Ml Liquid) 2 mg G-TUBE Q4H PRN PRN Reason: Diarrhea Last Admin: 01/06/23 22:15 Dose: 2 mg Documented By: HITESH Melatonin (Melatonin 3 Mg Tablet) 3 mg G-TUBE BEDTIME [facility] Last Admin: 01/07/23 21:09 Dose: 3 mg Documented By: FABIANA Midodrine (Midodrine Hcl 2.5 Mg Tablet) 7.5 mg G-TUBE TIDAC [facility] Last Admin: 01/08/23 07:46 Dose: 7.5 mg Documented By: TESS Non-Formulary Medication (Leucovorin Calcium) 25 mg G-TUBE BEDTIME [facility] Ondansetron HCl (Ondansetron Hcl 4 Mg/2 Ml Vial) 4 mg IVPUSH Q8H PRN PRN Reason: Nausea and Vomiting Pharmacy Consult (Consult Rx Perform Med Rec) 1 each MISCELLANE ONCE PRN PRN Reason: Consult order Pharmacy Consult (Consult Rx Vancomycin Dosing) 1 each MISCELLANE DAILY PRN PRN Reason: Consult order Scopolamine (Scopolamine 1.5 Mg Patch.Td.3) 1.5 mg TRANSDERMA Q3D [facility] Last Admin: 01/06/23 18:21 Dose: 1.5 mg Documented By: COTEMA Sodium Chloride (0.9 % Sodium Chloride Flush 3 Ml Syringe) 3 ml IVFLUSH QSHIFT [facility] Last Admin: 01/08/23 07:46 Dose: 3 ml Documented By: TESS Trimethoprim/Sulfamethoxazole (Sulfameth/Trimet 800/160/20 Ml 20 Ml Oral.Susp) 20 ml PO MoWeFr@1800 [facility] Last Admin: 01/07/23 17:09 Dose: 20 ml Documented By: FABIANA Vancomycin HCl (Vancomycin Hcl Oral Solution 125 Mg/5 Ml Soln.Recon) 125 mg PO QID [facility] Last Admin: 01/08/23 08:38 Dose: 125 mg Documented By: TESS Labs 01/08/23 05:20 01/08/23 05:20 Labs: Laboratory Results - last 24 hr 01/07/23 01/08/23 01/08/23 16:18 05:20 05:20 MCV 89.2 MCH 26.8 L MCHC 30.0 L RDW 16.6 H Plt Count 203 MPV 10.5 Absolute Nucleated RBC 0.000 Nucleated RBC % (auto) 0.0 Anion Gap 9 L Estim Creat Clear Calc 119.3 Estimated GFR > 60 Fasting Glucose 118 H Calcium 7.8 L Random Vancomycin 13.1 L Microbiology Microbiology Results: Microbiology 01/04/23 16:17 Gram Stain - Final Sputum - Suctioned Sputum Culture - Final Pseudomonas aeruginosa Klebsiella pneumoniae 01/02/23 11:45 Blood Culture - Final Blood - Venous No growth after 5 days. 01/02/23 11:34 Blood Culture - Final Blood - Venous No growth after 5 days. Assessment and Plan (1) Sepsis: Status: Acute (2) Stage IV decubitus ulcer: Status: Acute (3) Osteomyelitis of pelvis: Status: Acute (4) C. 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 CT positive for colitis and likely osteomyelitis of pelvis. positive cdif Sepsis and acute metabolic encephalopathy 2/[address] of abdomen and pelvis showed moderately severe ascending colitis from rectum to mid ascending colon without obstruction, perforation, free air positive for C diff vancomycin p.o. Contact precautions still with diarrhea, though slowing down, conitnue to monitor, imodium prn multiple DTI, unstageable, stage III, and stage IV pressure ulcers, chronic OM see wound care note for descriptions and recommendations Question of osteomyelitis of greater trochanters CT of abdomen pelvis found bilateral penetrating ulcers underlying the hips with with speech periosteal reaction to the right and left greater trochanters Patient will be covered by vancomycin IV, plan for 6 weeks iv vanc (end february 06, 2023) surgery appreciated no acute surgical intervention at this time UTI in chronic Rubio catheter growing Pseudomonas likely colonizer, hold on treatment for now Diet Pt has G-tube in place Osmolite 1.5, Prosource, Brice, Fiber thiokol operator follow up hypernatremia increased free fluid, monitor, improving Stage IV mantle cell lymphoma in remission 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 Quality Stroke Does the patient have a stroke diagnosis?: No VTE Prior VTE?: No VTE Risk Level:: Medical - moderate - high VTE Device Contraindication: Treatment Not Indicated VTE Drug Contraindication: N/A - Med Ordered
[2023-01-08] MEDS: Collagenase Clostridium Hist. 30 GM TUBE 1 APPL TOPICAL (10:06)
--- NOTE | 2023-01-08 12:47 | PM.EVENT ---
Event Note Date of Service: 01/07/23 Event Note: 6 weeks IV Vancomycin with weekly creatinine and Vancomycin trough. Po Vancomycin for 14 days Time Spent With Patient Time: Total time managing care of this patient today ____ minutes.
[2023-01-08 15:32] VITALS: BP 91/59; PULSE 82; RESP 18; TEMP 36.2; O2SAT 98
[2023-01-08] MEDS: Enoxaparin Sodium 40 MG/0.4 ML SYRINGE SUBCUT (17:02)
[2023-01-08 19:45] VITALS: BP 90/55; PULSE 84; RESP 16; TEMP 36.4; O2SAT 95
[2023-01-08] MEDS: Doxazosin Mesylate 1 MG TABLET G-TUBE (21:33)
[2023-01-08] MEDS: Melatonin 3 MG TABLET G-TUBE (21:33)
[2023-01-09] VITALS (8 sets, daily range): BP systolic 102–117; BP diastolic 55–72; PULSE 79–103; RESP 16–20; TEMP 36.5–36.7; O2SAT 91–98
[2023-01-09] MEDS: metroNIDAZOLE/NS 500 MG/100 ML PIGGYBACK 100 MG IV ×3 (02:26→18:13)
[2023-01-09 05:35] LABS: Hematocrit 27.9 % (42.0-52.0); Hemoglobin 8.4 g/dl (14.0-18.0); Mean Corpuscular HGB Conc 30.1 g/dl (31.0-36.0); Mean Corpuscular Hemoglobin 27.3 pg (27.0-33.0); Mean Corpuscular Volume 90.6 fL (80.0-98.0); Mean Platelet Volume 10.5 fL (9.4-12.4); Platelet Count 204 X10*3/uL (160-400); Red Blood Count 3.08 X10*6/uL (4.60-5.80); White Blood Count 5.5 X10*3/uL (4.8-10.8)
[2023-01-09 05:54] LABS: Anion Gap 9 (12-20); Blood Urea Nitrogen 18 mg/dL (9-16); Calcium 7.7 mg/dL (8.4-10.2); Carbon Dioxide 27 mmol/L (22-29); Chloride 107 mmol/L (96-108); Creatinine Clr Calc Pharmacy 121.2; Estimated Glomerular Filt Rate > 60; Glucose Fasting 131 mg/dL (60-99); Potassium 3.7 mmol/L (3.3-5.1); Sodium 139 mmol/L (135-145)
--- NOTE | 2023-01-09 08:56 | HO.PM.IMPN ---
Subjective Subjective Date of Service: 01/09/23 Interval History: still with diarrhea Physical Exam Vital Signs: Vital Signs: Last Vital Signs Temp 98.0 F 01/09/23 08:00 Pulse 103 H 01/09/23 08:00 Resp 17 01/09/23 08:00 BP 102/55 L 01/09/23 08:00 Pulse Ox 91 L 01/09/23 08:00 O2 Del Method Room Air 01/09/23 08:00 O2 Flow Rate 8.0 01/08/23 15:32 FiO2 35 01/08/23 04:00 Oxygen Flow Rate 8 01/02/23 11:18 BMI result Body Mass Index 20.5 Const: Other: Constitutional : Awake, not in distress Neck : Normal inspection, Supple Cardiovascular : RRR, no JVP, no lower extremity edema Respiratory : good bilateral air entry, no crackles Gastrointestinal: soft, lax, Normal bowel sounds, G-tube in place, no significant tenderness Skin : Warm, Dry, decubetus ulcers, deep on the side with large puncture, black discolored skin rectal area Neurological : Alert, No focal deficit but retracted Objective Data Active Medications Acetaminophen (Acetaminophen 325 Mg Tablet) 650 mg G-TUBE Q4H PRN PRN Reason: Fever Or Pain Last Admin: 01/03/23 12:51 Dose: 650 mg Documented By: TY Albuterol Sulfate (Albuterol Sulfate (0.083%) 2.5 Mg/3 Ml Vial.Neb) 2.5 mg INHALE Q4H PRN PRN Reason: Shortness Of Breath Or Wheezing Atovaquone (Atovaquone 750 Mg/5 Ml Oral.Susp) 750 mg G-TUBE BID [facility] [place] Last Admin: 01/08/23 21:32 Dose: 750 mg Documented By: FABIANA Baclofen (Baclofen 10 Mg Tablet) 5 mg G-TUBE TID [facility] [place] Last Admin: 01/08/23 21:33 Dose: 5 mg Documented By: FABIANA Chlorhexidine Gluconate (Chlorhexidine Gluc Oral Rinse 15 Ml Mouthwash) 15 ml BUCCAL BID [facility] [place] Last Admin: 01/08/23 21:32 Dose: 15 ml Documented By: FABIANA Cholestyramine Resin (Cholestyramine (With Sugar) 4 Gm Powd.Pack) 4 gm G-TUBE DAILY [facility] [place] Last Admin: 01/08/23 08:36 Dose: 4 gm Documented By: TESS Collagenase (Collagenase Clostridium Hist. 30 Gm Tube) 1 appl TOPICAL DAILY [facility]; Protocol Last Admin: 01/08/23 10:06 Dose: 1 appl Documented By: TESS Doxazosin Mesylate (Doxazosin Mesylate 1 Mg Tablet) 1 mg G-TUBE BEDTIME [facility]; Protocol Last Admin: 01/08/23 21:33 Dose: 1 mg Documented By: FABIANA Enoxaparin Sodium (Enoxaparin Sodium 40 Mg/0.4 Ml Syringe) 40 mg SUBCUT Q24H [facility] [place] Last Admin: 01/08/23 17:02 Dose: 40 mg Documented By: TESS Famotidine (Famotidine 20 Mg Tablet) 20 mg G-TUBE BID [facility] [place] Last Admin: 01/08/23 21:33 Dose: 20 mg Documented By: FABIANA Finasteride (Finasteride 5 Mg Tablet) 5 mg PO DAILY [facility] [place] Last Admin: 01/08/23 08:37 Dose: 5 mg Documented By: TESS Glycopyrrolate (Glycopyrrolate 1 Mg Tablet) 1 mg G-TUBE TID [facility] [place] Last Admin: 01/08/23 21:33 Dose: 1 mg Documented By: FABIANA Guaifenesin (Guaifenesin 200 Mg/10 Ml 10 Ml Liquid) 10 ml G-TUBE Q4H PRN PRN Reason: Cough Guaifenesin (Guaifenesin 100 Mg/5 Ml Liquid) 10 ml G-TUBE TID [facility] [place] Last Admin: 01/08/23 21:32 Dose: 10 ml Documented By: FABIANA Metronidazole (Flagyl) 500 mg in 100 mls @ 100 mls/hr IV Q8H [facility] [place] Last Infusion: 01/09/23 03:26 Dose: 0 mls/hr Documented By: FABIANA Lacosamide (Lacosamide Oral Solution 100 Mg/10 Ml Solution) 200 mg G-TUBE BID [facility] [place] Last Admin: 01/08/23 21:33 Dose: 200 mg Documented By: FABIANA Loperamide HCl (Loperamide Hcl Oral Liquid 2 Mg/15 Ml Liquid) 2 mg G-TUBE Q4H PRN PRN Reason: Diarrhea Last Admin: 01/06/23 22:15 Dose: 2 mg Documented By: HITESH Melatonin (Melatonin 3 Mg Tablet) 3 mg G-TUBE BEDTIME [facility] [place] Last Admin: 01/08/23 21:33 Dose: 3 mg Documented By: FABIANA Midodrine (Midodrine Hcl 2.5 Mg Tablet) 7.5 mg G-TUBE TIDAC [facility] [place] Last Admin: 01/08/23 16:33 Dose: 7.5 mg Documented By: TESS Ondansetron HCl (Ondansetron Hcl 4 Mg/2 Ml Vial) 4 mg IVPUSH Q8H PRN PRN Reason: Nausea and Vomiting Pharmacy Consult (Consult Rx Perform Med Rec) 1 each MISCELLANE ONCE PRN PRN Reason: Consult order Pharmacy Consult (Consult Rx Vancomycin Dosing) 1 each MISCELLANE DAILY PRN PRN Reason: Consult order Scopolamine (Scopolamine 1.5 Mg Patch.Td.3) 1.5 mg TRANSDERMA Q3D [facility] [place] Last Admin: 01/06/23 18:21 Dose: 1.5 mg Documented By: SHONDAEMA Sodium Chloride (0.9 % Sodium Chloride Flush 3 Ml Syringe) 3 ml IVFLUSH QSHIFT [facility] [place] Last Admin: 01/08/23 21:33 Dose: 3 ml Documented By: FABIANA Trimethoprim/Sulfamethoxazole (Sulfameth/Trimet 800/160/20 Ml 20 Ml Oral.Susp) 20 ml PO MoWeFr@1800 [facility] [place] Last Admin: 01/07/23 17:09 Dose: 20 ml Documented By: FABIANA Vancomycin HCl (Vancomycin Hcl Oral Solution 125 Mg/5 Ml Soln.Recon) 125 mg PO QID [facility] [place] Last Admin: 01/08/23 21:32 Dose: 125 mg Documented By: FABIANA Labs 01/09/23 05:23 01/09/23 05:23 Labs: Laboratory Results - last 24 hr 01/09/23 01/09/23 05:23 05:23 MCV 90.6 MCH 27.3 MCHC 30.1 L RDW 17.0 H Plt Count 204 MPV 10.5 Absolute Nucleated RBC 0.000 Nucleated RBC % (auto) 0.0 Anion Gap 9 L Estim Creat Clear Calc 121.2 Estimated GFR > 60 Fasting Glucose 131 H Calcium 7.7 L Microbiology Microbiology Results: Microbiology 01/04/23 16:17 Gram Stain - Final Sputum - Suctioned Sputum Culture - Final Pseudomonas aeruginosa Klebsiella pneumoniae Assessment and Plan (1) Sepsis: Status: Acute (2) Stage IV decubitus ulcer: Status: Acute (3) Osteomyelitis of pelvis: Status: Acute (4) C. 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 CT positive for colitis and likely osteomyelitis of pelvis. positive cdif Sepsis and acute metabolic encephalopathy 2/[address] of abdomen and pelvis showed moderately severe ascending colitis from rectum to mid ascending colon without obstruction, perforation, free air positive for C diff vancomycin p.o. Contact precautions still with diarrhea, though slowing down, conitnue to monitor, imodium prn multiple DTI, unstageable, stage III, and stage IV pressure ulcers, chronic OM see wound care note for descriptions and recommendations Question of osteomyelitis of greater trochanters CT of abdomen pelvis found bilateral penetrating ulcers underlying the hips with with speech periosteal reaction to the right and left greater trochanters Patient will be covered by vancomycin IV, plan for 6 weeks iv vanc (end february 06, 2023) surgery appreciated no acute surgical intervention at this time UTI in chronic Rubio catheter growing Pseudomonas likely colonizer, hold on treatment for now Diet Pt has G-tube in place Osmolite 1.5, Prosource, Brice, Fiber hog dropper follow up hypernatremia increased free fluid, monitor, improving Stage IV mantle cell lymphoma in remission 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 Quality Stroke Does the patient have a stroke diagnosis?: No VTE Prior VTE?: No VTE Risk Level:: Medical - moderate - high VTE Device Contraindication: Treatment Not Indicated VTE Drug Contraindication: N/A - Med Ordered
[2023-01-09] MEDS: Chlorhexidine Gluc Oral Rinse 15 ML MOUTHWASH BUCCAL ×2 (08:59→22:24)
[2023-01-09] MEDS: Cholestyramine (With Sugar) 4 GM POWD.PACK G-TUBE (09:00)
[2023-01-09] MEDS: Finasteride 5 MG TABLET PO (09:00)
[2023-01-09] MEDS: 0.9 % Sodium Chloride Flush 3 ML SYRINGE IVFLUSH ×3 (09:00→22:27)
[2023-01-09] MEDS: guaiFENesin 100 MG/5 ML LIQUID 10 ML G-TUBE ×3 (09:00→22:24)
[2023-01-09] MEDS: Lacosamide Oral Solution 100 MG/10 ML SOLUTION 200 MG G-TUBE ×2 (09:00→22:24)
[2023-01-09] MEDS: Atovaquone 750 MG/5 ML ORAL.SUSP G-TUBE ×2 (09:00→22:24)
[2023-01-09] MEDS: Baclofen 10 MG TABLET 5 MG G-TUBE ×3 (09:01→22:25)
[2023-01-09] MEDS: Glycopyrrolate 1 MG TABLET G-TUBE ×3 (09:01→22:26)
[2023-01-09] MEDS: Famotidine 20 MG TABLET G-TUBE ×2 (09:01→22:26)
[2023-01-09] MEDS: Midodrine HCl 2.5 MG TABLET 7.5 MG G-TUBE ×3 (09:01→16:38)
[2023-01-09] MEDS: vancomycin HCL Oral Solution 125 MG/5 ML SOLN.RECON PO ×4 (09:15→22:24)
[2023-01-09] MEDS: Collagenase Clostridium Hist. 30 GM TUBE 1 APPL TOPICAL (10:37)
[2023-01-09] MEDS: Acetaminophen 325 MG TABLET 650 MG G-TUBE (16:38)
[2023-01-09] MEDS: Enoxaparin Sodium 40 MG/0.4 ML SYRINGE SUBCUT (16:38)
[2023-01-09] MEDS: Scopolamine 1.5 MG PATCH.TD.3 TRANSDERMA (17:43)
[2023-01-09] MEDS: Doxazosin Mesylate 1 MG TABLET G-TUBE (22:24)
[2023-01-09] MEDS: Melatonin 3 MG TABLET G-TUBE (22:25)
--- NOTE | 2023-01-09 23:00 | PC.NURSE ---
Pt found to have about 160cc of tube feed residual. MD notified and said to hold till am.
[2023-01-10] MEDS: metroNIDAZOLE/NS 500 MG/100 ML PIGGYBACK 100 MG IV ×3 (03:11→19:52)
[2023-01-10 03:33] VITALS: BP 120/69; PULSE 90; RESP 17; TEMP 36.5; O2SAT 94
[2023-01-10 06:55] VITALS: BP 113/78; PULSE 110; RESP 18; TEMP 36.6; O2SAT 94
[2023-01-10 07:25] LABS: Hematocrit 30.8 % (42.0-52.0); Hemoglobin 9.3 g/dl (14.0-18.0); Mean Corpuscular HGB Conc 30.2 g/dl (31.0-36.0); Mean Corpuscular Volume 89.3 fL (80.0-98.0); Mean Platelet Volume 11.2 fL (9.4-12.4); Platelet Count 242 X10*3/uL (160-400); Red Blood Count 3.45 X10*6/uL (4.60-5.80); Red Cell Distribution Width 17.6 % (11.0-16.0); White Blood Count 6.2 X10*3/uL (4.8-10.8)
[2023-01-10 07:36] LABS: Anion Gap 12 (12-20); Blood Urea Nitrogen 15 mg/dL (9-16); Carbon Dioxide 26 mmol/L (22-29); Chloride 106 mmol/L (96-108); Creatinine Clr Calc Pharmacy 107.5; Estimated Glomerular Filt Rate > 60; Glucose Fasting 100 mg/dL (60-99); Potassium 3.7 mmol/L (3.3-5.1); Sodium 140 mmol/L (135-145)
[2023-01-10] MEDS: 0.9 % Sodium Chloride Flush 3 ML SYRINGE IVFLUSH ×3 (08:08→23:46)
[2023-01-10] MEDS: Midodrine HCl 2.5 MG TABLET 7.5 MG G-TUBE ×3 (08:08→18:04)
[2023-01-10] MEDS: Baclofen 10 MG TABLET 5 MG G-TUBE ×3 (08:08→19:53)
[2023-01-10] MEDS: Glycopyrrolate 1 MG TABLET G-TUBE ×3 (08:08→19:54)
[2023-01-10] MEDS: Famotidine 20 MG TABLET G-TUBE ×2 (08:08→19:54)
[2023-01-10] MEDS: Lacosamide Oral Solution 100 MG/10 ML SOLUTION 200 MG G-TUBE ×2 (08:09→19:53)
[2023-01-10] MEDS: Atovaquone 750 MG/5 ML ORAL.SUSP G-TUBE ×2 (08:09→19:53)
[2023-01-10] MEDS: guaiFENesin 100 MG/5 ML LIQUID 10 ML G-TUBE ×3 (08:09→19:53)
[2023-01-10] MEDS: Chlorhexidine Gluc Oral Rinse 15 ML MOUTHWASH BUCCAL ×2 (08:10→19:52)
[2023-01-10] MEDS: Cholestyramine (With Sugar) 4 GM POWD.PACK G-TUBE (08:10)
[2023-01-10] MEDS: Finasteride 5 MG TABLET PO (08:10)
[2023-01-10] MEDS: vancomycin HCL Oral Solution 125 MG/5 ML SOLN.RECON PO ×4 (08:10→19:53)
--- NOTE | 2023-01-10 08:14 | HO.PM.IMPN ---
Subjective Subjective Date of Service: 01/10/23 Interval History: still with diarrhea Physical Exam Vital Signs: Vital Signs: Last Vital Signs Temp 98 F 01/10/23 06:55 Pulse 110 H 01/10/23 06:55 Resp 18 01/10/23 06:55 BP 113/78 01/10/23 06:55 Pulse Ox 94 01/10/23 06:55 O2 Del Method Room Air 01/10/23 06:55 O2 Flow Rate 8.0 01/09/23 15:24 FiO2 35 01/08/23 04:00 Oxygen Flow Rate 8 01/02/23 11:18 BMI result Body Mass Index 20.5 Const: Other: Constitutional : Awake, not in distress Neck : Normal inspection, Supple Cardiovascular : RRR, no JVP, no lower extremity edema Respiratory : good bilateral air entry, no crackles Gastrointestinal: soft, lax, Normal bowel sounds, G-tube in place, no significant tenderness Skin : Warm, Dry, decubetus ulcers, deep on the side with large puncture, black discolored skin rectal area Neurological : Alert, No focal deficit but retracted Objective Data Active Medications Acetaminophen (Acetaminophen 325 Mg Tablet) 650 mg G-TUBE Q4H PRN PRN Reason: Fever Or Pain Last Admin: 01/09/23 16:38 Dose: 650 mg Documented By: TESS Atovaquone (Atovaquone 750 Mg/5 Ml Oral.Susp) 750 mg G-TUBE BID [facility] Last Admin: 01/10/23 08:09 Dose: 750 mg Documented By: HELEN Baclofen (Baclofen 10 Mg Tablet) 5 mg G-TUBE TID [facility] Last Admin: 01/10/23 08:08 Dose: 5 mg Documented By: HELEN Chlorhexidine Gluconate (Chlorhexidine Gluc Oral Rinse 15 Ml Mouthwash) 15 ml BUCCAL BID [facility] Last Admin: 01/10/23 08:10 Dose: 15 ml Documented By: HELEN Cholestyramine Resin (Cholestyramine (With Sugar) 4 Gm Powd.Pack) 4 gm G-TUBE DAILY [facility] Last Admin: 01/10/23 08:10 Dose: 4 gm Documented By: HELEN Collagenase (Collagenase Clostridium Hist. 30 Gm Tube) 1 appl TOPICAL DAILY [facility]; Protocol Last Admin: 01/09/23 10:37 Dose: 1 appl Documented By: TESS Doxazosin Mesylate (Doxazosin Mesylate 1 Mg Tablet) 1 mg G-TUBE BEDTIME [facility]; Protocol Last Admin: 01/09/23 22:24 Dose: 1 mg Documented By: SHAHBAZ Enoxaparin Sodium (Enoxaparin Sodium 40 Mg/0.4 Ml Syringe) 40 mg SUBCUT Q24H [facility] Last Admin: 01/09/23 16:38 Dose: 40 mg Documented By: TESS Famotidine (Famotidine 20 Mg Tablet) 20 mg G-TUBE BID [facility] Last Admin: 01/10/23 08:08 Dose: 20 mg Documented By: HELEN Finasteride (Finasteride 5 Mg Tablet) 5 mg PO DAILY [facility] Last Admin: 01/10/23 08:10 Dose: 5 mg Documented By: HELEN Glycopyrrolate (Glycopyrrolate 1 Mg Tablet) 1 mg G-TUBE TID [facility] Last Admin: 01/10/23 08:08 Dose: 1 mg Documented By: HELEN Guaifenesin (Guaifenesin 200 Mg/10 Ml 10 Ml Liquid) 10 ml G-TUBE Q4H PRN PRN Reason: Cough Guaifenesin (Guaifenesin 100 Mg/5 Ml Liquid) 10 ml G-TUBE TID [facility] Last Admin: 01/10/23 08:09 Dose: 10 ml Documented By: HELEN Metronidazole (Flagyl) 500 mg in 100 mls @ 100 mls/hr IV Q8H [facility] Last Infusion: 01/10/23 04:21 Dose: 0 mls/hr Documented By: SHAHBAZ Lacosamide (Lacosamide Oral Solution 100 Mg/10 Ml Solution) 200 mg G-TUBE BID [facility] Last Admin: 01/10/23 08:09 Dose: 200 mg Documented By: HELEN Loperamide HCl (Loperamide Hcl Oral Liquid 2 Mg/15 Ml Liquid) 2 mg G-TUBE Q4H PRN PRN Reason: Diarrhea Last Admin: 01/06/23 22:15 Dose: 2 mg Documented By: HITESH Loperamide HCl (Loperamide Hcl Oral Liquid 2 Mg/15 Ml Liquid) 2 mg G-TUBE Q6H PRN PRN Reason: Diarrhea Melatonin (Melatonin 3 Mg Tablet) 3 mg G-TUBE BEDTIME [facility] Last Admin: 01/09/23 22:25 Dose: 3 mg Documented By: SHAHBAZ Midodrine (Midodrine Hcl 2.5 Mg Tablet) 7.5 mg G-TUBE TIDAC [facility] Last Admin: 01/10/23 08:08 Dose: 7.5 mg Documented By: HELEN Ondansetron HCl (Ondansetron Hcl 4 Mg/2 Ml Vial) 4 mg IVPUSH Q8H PRN PRN Reason: Nausea and Vomiting Pharmacy Consult (Consult Rx Perform Med Rec) 1 each MISCELLANE ONCE PRN PRN Reason: Consult order Pharmacy Consult (Consult Rx Vancomycin Dosing) 1 each MISCELLANE DAILY PRN PRN Reason: Consult order Scopolamine (Scopolamine 1.5 Mg Patch.Td.3) 1.5 mg TRANSDERMA Q3D [facility] Last Admin: 01/09/23 17:43 Dose: 1.5 mg Documented By: TESS Sodium Chloride (0.9 % Sodium Chloride Flush 3 Ml Syringe) 3 ml IVFLUSH QSHIFT [facility] Last Admin: 01/10/23 08:08 Dose: 3 ml Documented By: HELEN Trimethoprim/Sulfamethoxazole (Sulfameth/Trimet 800/160/20 Ml 20 Ml Oral.Susp) 20 ml PO MoWeFr@1800 [facility] Last Admin: 01/07/23 17:09 Dose: 20 ml Documented By: FABIANA Vancomycin HCl (Vancomycin Hcl Oral Solution 125 Mg/5 Ml Soln.Recon) 125 mg PO QID [facility] Last Admin: 01/10/23 08:10 Dose: 125 mg Documented By: HELEN Labs 01/10/23 06:17 01/10/23 06:17 Labs: Laboratory Results - last 24 hr 01/10/23 01/10/23 06:17 06:17 MCV 89.3 MCH 27.0 MCHC 30.2 L RDW 17.6 H Plt Count 242 MPV 11.2 Absolute Nucleated RBC 0.000 Nucleated RBC % (auto) 0.0 Anion Gap 12 Estim Creat Clear Calc 107.5 Estimated GFR > 60 Fasting Glucose 100 H Calcium 8.0 L Assessment and Plan (1) Sepsis: Status: Acute (2) Stage IV decubitus ulcer: Status: Acute (3) Osteomyelitis of pelvis: Status: Acute (4) C. 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 CT positive for colitis and likely osteomyelitis of pelvis. positive cdif Sepsis and acute metabolic encephalopathy 2/[address] of abdomen and pelvis showed moderately severe ascending colitis from rectum to mid ascending colon without obstruction, perforation, free air positive for C diff vancomycin p.o. Contact precautions still with diarrhea, though slowing down, continue to monitor, imodium prn multiple DTI, unstageable, stage III, and stage IV pressure ulcers, chronic OM see wound care note for descriptions and recommendations Question of osteomyelitis of greater trochanters CT of abdomen pelvis found bilateral penetrating ulcers underlying the hips with with speech periosteal reaction to the right and left greater trochanters Patient will be covered by vancomycin IV, plan for 6 weeks iv vanc (end february 06, 2023) surgery appreciated no acute surgical intervention at this time UTI in chronic Rubio catheter growing Pseudomonas likely colonizer, hold on treatment for now Diet Pt has G-tube in place Osmolite 1.5, Prosource, Brice, Fiber book binder follow up hypernatremia increased free fluid, monitor, improving Stage IV mantle cell lymphoma in remission [facility]OLESCENT CARE 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 Quality Stroke Does the patient have a stroke diagnosis?: No VTE Prior VTE?: No VTE Risk Level:: Medical - moderate - high VTE Device Contraindication: Treatment Not Indicated VTE Drug Contraindication: N/A - Med Ordered
[2023-01-10] MEDS: Collagenase Clostridium Hist. 30 GM TUBE 1 APPL TOPICAL (11:12)
--- NOTE | 2023-01-10 13:30 | MHC.CLN ---
F/U PATIENT WITH TRACH AND PEG TUBE. REQUIRES NUTRITION/HYDRATION VIA PEG. INCREASED NUTRITION NEEDS DUE IMPAIRED SKIN: STAGE IV PRESSURE INJURIES, UNSTAGEABLE AREAS. TF HELD OVERNIGHT 01/09 DUE TO RESIDUALS, THEN RESUMED MAX GOAL RATE. CONTINUE TUBE FEEDING: OSMOLITE 1.5 AT 70 ML PER HOUR X 18 HOURS MAX GOAL RATE; FREE WATER FLUSH 300 ML Q 4 HOURS; 30 ML PROSOURCE BID (120 KCALS, 30 G PROTEIN), 1 PACKET PARESH BID (160 KCALS, 5 G PROTEIN). PROVIDES 2170 TOTAL KCALS (35.5 KCALS/KG) 114 G PROTEIN (1.87 G/KG) 2760 ML FREE WATER FROM FORMULA AND FLUSH (45.2 ML/KG) ADDITIONAL PROTEIN TO PROMOTE WOUND HEALING. CONTINUE CURRENT TUBE FEED, FLUSH, PROTEIN SUPPLEMENTS. FOLLOW FOR TUBE FEED TOLERANCE, RESIDUALS, LABS, WOUND HEALING.
[2023-01-10 15:28] VITALS: BP 98/68; PULSE 111; RESP 18; TEMP 37; O2SAT 92
[2023-01-10] MEDS: Enoxaparin Sodium 40 MG/0.4 ML SYRINGE SUBCUT (18:04)
[2023-01-10] MEDS: Sulfameth/Trimet 800/160/20 ML 20 ML ORAL.SUSP PO (18:04)
[2023-01-10 19:02] VITALS: BP 105/64; PULSE 112; RESP 22; TEMP 36.2; O2SAT 91
--- NOTE | 2023-01-10 19:26 | PC.NURSE ---
Pt tube feeding restarted following dietary order. No residual. 300ml flush. Started at a rate of 50ml/hr at 1800. Pt tolerating feeding.
[2023-01-10] MEDS: Doxazosin Mesylate 1 MG TABLET G-TUBE (19:54)
[2023-01-10] MEDS: Melatonin 3 MG TABLET G-TUBE (19:54)
[2023-01-11] MEDS: metroNIDAZOLE/NS 500 MG/100 ML PIGGYBACK 100 MG IV ×3 (03:36→20:17)
[2023-01-11 03:57] VITALS: BP 91/58; PULSE 111; RESP 16; TEMP 36.5; O2SAT 93
[2023-01-11 06:31] LABS: Hematocrit 31.3 % (42.0-52.0); Hemoglobin 9.5 g/dl (14.0-18.0); Mean Corpuscular HGB Conc 30.4 g/dl (31.0-36.0); Mean Corpuscular Hemoglobin 27.1 pg (27.0-33.0); Mean Corpuscular Volume 89.2 fL (80.0-98.0); Mean Platelet Volume 10.5 fL (9.4-12.4); Platelet Count 242 X10*3/uL (160-400); Red Blood Count 3.51 X10*6/uL (4.60-5.80); Red Cell Distribution Width 17.9 % (11.0-16.0); White Blood Count 6.9 X10*3/uL (4.8-10.8)
[2023-01-11 07:03] LABS: Anion Gap 13 (12-20); Blood Urea Nitrogen 17 mg/dL (9-16); Calcium 8.1 mg/dL (8.4-10.2); Carbon Dioxide 25 mmol/L (22-29); Chloride 105 mmol/L (96-108); Creatinine Clr Calc Pharmacy 104.6; Estimated Glomerular Filt Rate > 60; Glucose Fasting 108 mg/dL (60-99); Potassium 3.6 mmol/L (3.3-5.1); Sodium 139 mmol/L (135-145)
[2023-01-11 07:09] VITALS: BP 98/64; PULSE 111; RESP 18; TEMP 36.1; O2SAT 94
[2023-01-11] MEDS: Lacosamide Oral Solution 100 MG/10 ML SOLUTION 200 MG G-TUBE ×2 (09:01→20:16)
[2023-01-11] MEDS: guaiFENesin 100 MG/5 ML LIQUID 10 ML G-TUBE ×3 (09:01→20:15)
[2023-01-11] MEDS: Glycopyrrolate 1 MG TABLET G-TUBE ×3 (09:01→20:16)
[2023-01-11] MEDS: vancomycin HCL Oral Solution 125 MG/5 ML SOLN.RECON PO ×4 (09:01→20:16)
[2023-01-11] MEDS: Chlorhexidine Gluc Oral Rinse 15 ML MOUTHWASH BUCCAL ×2 (09:01→20:16)
[2023-01-11] MEDS: Atovaquone 750 MG/5 ML ORAL.SUSP G-TUBE ×2 (09:01→20:16)
[2023-01-11] MEDS: Midodrine HCl 2.5 MG TABLET 7.5 MG G-TUBE ×3 (09:02→17:50)
[2023-01-11] MEDS: Baclofen 10 MG TABLET 5 MG G-TUBE ×3 (09:02→20:16)
[2023-01-11] MEDS: Cholestyramine (With Sugar) 4 GM POWD.PACK G-TUBE (09:02)
[2023-01-11] MEDS: Finasteride 5 MG TABLET PO (09:03)
[2023-01-11] MEDS: 0.9 % Sodium Chloride Flush 3 ML SYRINGE IVFLUSH ×3 (09:03→20:26)
[2023-01-11] MEDS: Collagenase Clostridium Hist. 30 GM TUBE 1 APPL TOPICAL (09:03)
[2023-01-11] MEDS: Famotidine 20 MG TABLET G-TUBE ×2 (09:03→20:16)
--- NOTE | 2023-01-11 09:10 | HO.PM.IMPN ---
Subjective Subjective Date of Service: 01/11/23 Interval History: diarrhea improving Physical Exam Vital Signs: Vital Signs: Last Vital Signs Temp 97 F 01/11/23 07:09 Pulse 111 H 01/11/23 07:09 Resp 18 01/11/23 07:09 BP 98/64 01/11/23 07:09 Pulse Ox 94 01/11/23 07:09 O2 Del Method Room Air 01/11/23 07:09 O2 Flow Rate 8.0 01/09/23 15:24 FiO2 35 01/08/23 04:00 Oxygen Flow Rate 8 01/02/23 11:18 BMI result Body Mass Index 20.5 Const: Other: Constitutional : Awake, not in distress Neck : Normal inspection, Supple Cardiovascular : RRR, no JVP, no lower extremity edema Respiratory : good bilateral air entry, no crackles Gastrointestinal: soft, lax, Normal bowel sounds, G-tube in place, no significant tenderness Skin : Warm, Dry, decubetus ulcers, deep on the side with large puncture, black discolored skin rectal area Neurological : Alert, No focal deficit but retracted Objective Data Active Medications Acetaminophen (Acetaminophen 325 Mg Tablet) 650 mg G-TUBE Q4H PRN PRN Reason: Fever Or Pain Last Admin: 01/09/23 16:38 Dose: 650 mg Documented By: TESS Atovaquone (Atovaquone 750 Mg/5 Ml Oral.Susp) 750 mg G-TUBE BID [facility] Last Admin: 01/11/23 09:01 Dose: 750 mg Documented By: DAKOTA Baclofen (Baclofen 10 Mg Tablet) 5 mg G-TUBE TID [facility] Last Admin: 01/11/23 09:02 Dose: 5 mg Documented By: DAKOTA Chlorhexidine Gluconate (Chlorhexidine Gluc Oral Rinse 15 Ml Mouthwash) 15 ml BUCCAL BID [facility] Last Admin: 01/11/23 09:01 Dose: 15 ml Documented By: DAKOTA Cholestyramine Resin (Cholestyramine (With Sugar) 4 Gm Powd.Pack) 4 gm G-TUBE DAILY [facility] Last Admin: 01/11/23 09:02 Dose: 4 gm Documented By: DAKOTA Collagenase (Collagenase Clostridium Hist. 30 Gm Tube) 1 appl TOPICAL DAILY [facility]; Protocol Last Admin: 01/11/23 09:03 Dose: 1 appl Documented By: DAKOTA Doxazosin Mesylate (Doxazosin Mesylate 1 Mg Tablet) 1 mg G-TUBE BEDTIME [facility]; Protocol Last Admin: 01/10/23 19:54 Dose: 1 mg Documented By: CARLOTA Enoxaparin Sodium (Enoxaparin Sodium 40 Mg/0.4 Ml Syringe) 40 mg SUBCUT Q24H [facility] Last Admin: 01/10/23 18:04 Dose: 40 mg Documented By: SAMMIE Famotidine (Famotidine 20 Mg Tablet) 20 mg G-TUBE BID [facility] Last Admin: 01/11/23 09:03 Dose: 20 mg Documented By: DAKOTA Finasteride (Finasteride 5 Mg Tablet) 5 mg PO DAILY [facility] Last Admin: 01/11/23 09:03 Dose: 5 mg Documented By: DAKOTA Glycopyrrolate (Glycopyrrolate 1 Mg Tablet) 1 mg G-TUBE TID [facility] Last Admin: 01/11/23 09:01 Dose: 1 mg Documented By: DAKOTA Guaifenesin (Guaifenesin 200 Mg/10 Ml 10 Ml Liquid) 10 ml G-TUBE Q4H PRN PRN Reason: Cough Guaifenesin (Guaifenesin 100 Mg/5 Ml Liquid) 10 ml G-TUBE TID [facility] Last Admin: 01/11/23 09:01 Dose: 10 ml Documented By: DAKOTA Metronidazole (Flagyl) 500 mg in 100 mls @ 100 mls/hr IV Q8H [facility] Last Infusion: 01/11/23 04:42 Dose: 0 mls/hr Documented By: CARLOTA Lacosamide (Lacosamide Oral Solution 100 Mg/10 Ml Solution) 200 mg G-TUBE BID [facility] Last Admin: 01/11/23 09:01 Dose: 200 mg Documented By: DAKOTA Loperamide HCl (Loperamide Hcl Oral Liquid 2 Mg/15 Ml Liquid) 2 mg G-TUBE Q4H PRN PRN Reason: Diarrhea Last Admin: 01/06/23 22:15 Dose: 2 mg Documented By: HITESH Loperamide HCl (Loperamide Hcl Oral Liquid 2 Mg/15 Ml Liquid) 2 mg G-TUBE Q6H PRN PRN Reason: Diarrhea Melatonin (Melatonin 3 Mg Tablet) 3 mg G-TUBE BEDTIME [facility] Last Admin: 01/10/23 19:54 Dose: 3 mg Documented By: CARLOTA Midodrine (Midodrine Hcl 2.5 Mg Tablet) 7.5 mg G-TUBE TIDAC [facility] Last Admin: 01/11/23 09:02 Dose: 7.5 mg Documented By: DAKOTA Comments: 9am med pass Ondansetron HCl (Ondansetron Hcl 4 Mg/2 Ml Vial) 4 mg IVPUSH Q8H PRN PRN Reason: Nausea and Vomiting Pharmacy Consult (Consult Rx Perform Med Rec) 1 each MISCELLANE ONCE PRN PRN Reason: Consult order Pharmacy Consult (Consult Rx Vancomycin Dosing) 1 each MISCELLANE DAILY PRN PRN Reason: Consult order Scopolamine (Scopolamine 1.5 Mg Patch.Td.3) 1.5 mg TRANSDERMA Q3D [facility] Last Admin: 01/09/23 17:43 Dose: 1.5 mg Documented By: TESS Sodium Chloride (0.9 % Sodium Chloride Flush 3 Ml Syringe) 3 ml IVFLUSH QSHIFT [facility] Last Admin: 01/11/23 09:03 Dose: 3 ml Documented By: DAKOTA Trimethoprim/Sulfamethoxazole (Sulfameth/Trimet 800/160/20 Ml 20 Ml Oral.Susp) 20 ml PO MoWeFr@1800 [facility] Last Admin: 01/10/23 18:04 Dose: 20 ml Documented By: SAMMIE Vancomycin HCl (Vancomycin Hcl Oral Solution 125 Mg/5 Ml Soln.Recon) 125 mg PO QID [facility] Last Admin: 01/11/23 09:01 Dose: 125 mg Documented By: DAKOTA Labs 01/11/23 05:09 01/11/23 05:09 Labs: Laboratory Results - last 24 hr 01/11/23 01/11/23 05:09 05:09 MCV 89.2 MCH 27.1 MCHC 30.4 L RDW 17.9 H Plt Count 242 MPV 10.5 Absolute Nucleated RBC 0.000 Nucleated RBC % (auto) 0.0 Anion Gap 13 Estim Creat Clear Calc 104.6 Estimated GFR > 60 Fasting Glucose 108 H Calcium 8.1 L Assessment and Plan (1) Sepsis: Status: Acute (2) Stage IV decubitus ulcer: Status: Acute (3) Osteomyelitis of pelvis: Status: Acute (4) C. difficile colitis: Status: Acute Plan 52M PMH significant for?stage IV mantle cell lymphoma, PATHOLOGY TRANSCRIPTIONIST toxoplasmosis, acute on chronic respiratory failure with trach in place on 35% trach mask, normocytic anemia, BPH, urinary retention with chronic catheter in place, seizure disorder, G-tube in place, who presenterd to the ED from [facility] for evaluation of fever. CT positive for colitis and likely osteomyelitis of pelvis. positive cdif Sepsis and acute metabolic encephalopathy 2/[address] of abdomen and pelvis showed moderately severe ascending colitis from rectum to mid ascending colon without obstruction, perforation, free air positive for C diff vancomycin p.o. Contact precautions still with diarrhea, though slowing down, continue to monitor, imodium prn multiple DTI, unstageable, stage III, and stage IV pressure ulcers, chronic OM see wound care note for descriptions and recommendations Question of osteomyelitis of greater trochanters CT of abdomen pelvis found bilateral penetrating ulcers underlying the hips with with speech periosteal reaction to the right and left greater trochanters Patient will be covered by vancomycin IV, plan for 6 weeks iv vanc (end february 06, 2023) surgery appreciated no acute surgical intervention at this time plan for picc UTI in chronic Rubio catheter growing Pseudomonas likely colonizer, hold on treatment for now Diet Pt has G-tube in place Osmolite 1.5, Prosource, Brice, Fiber 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 car 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 follow up hypernatremia increased free fluid, monitor, improving Stage IV mantle cell lymphoma in remission 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 Quality Stroke Does the patient have a stroke diagnosis?: No VTE Prior VTE?: No VTE Risk Level:: Medical - moderate - high VTE Device Contraindication: Treatment Not Indicated VTE Drug Contraindication: N/A - Med Ordered
[2023-01-11 11:34] LABS: Absolute CD3 Count 333 cells/uL (840-3060); Absolute CD4 Count 100 cells/uL (490-1740); Absolute CD8 Count 229 cells/uL (180-1170); Absolute Lymphocytes 465 cells/uL (850-3900); CD4 CD8 Ratio 0.44 (0.86-5.00); Percent CD3 Cells 72 % (57-85); Percent CD4 Cells 22 % (30-61); Percent CD8 Cells 49 % (12-42)
[2023-01-11 12:15] VITALS: BP 93/58; PULSE 107; O2SAT 95
[2023-01-11 16:00] VITALS: BP 91/52; PULSE 100; RESP 20; TEMP 37.2; O2SAT 96
--- NOTE | 2023-01-11 17:12 | P.PICC_ITS ---
PICC Line Insertion NPICC INSERTION Diagnosis: [OM OF PELVIS] Indication: [FPC ANTIBX] Pertinent Labs: [REVIEWED] Technique: Following informed consent including risks, benefits and alternatives and using sterile technique including cap and mask, sterile gown, glove and drape, the RIGHT] arm was prepped and draped in the usual sterile fashion of fu ll barrier technique with CHG. Following completion of Mitchell Protocol the skin and soft tissues were anesthetized with 1% Lidocaine plain. Using ultrasound guidance, RIGHT BASILIC [] vein access was obtained BY DR BEAVERS ON FIRST ATTEMPT AFTER TWO IR NURSES TRIED MULTIPLE TIME BUT UNABLE TO ACCESSED THE VEIN. Over an 0.018 wire through peel-away sheath, a [4FR SINGLE LUMEN] PICC line was positioned BY CALIN LEMOS RN. Catheter length is [43CM] internal length, [0CM] external length, for a total trimmed length of 0CM]. The procedure was performed in [RM 272]. Tip verification was performed by Lindsay Mckeon with Sherlock 3CG. Tip located in SVC. Ultrasound was used to document vein patency and for needle entry. A formal ultrasound picture and cardiac rhythm strip was recorded. Vascular Transition Social Worker has released the line for use and it is currently dressed with a StatLock, Tegaderm, and CHG disc. Verification has been performed for blood return and line patency. Arm Circumference: [25.5CM] Equipment: [[employer] POWER PICC SOLO] Catheter Type: [4FR SINGLE LUMEN PICC ] Lot #: [id number]
[2023-01-11] MEDS: Enoxaparin Sodium 40 MG/0.4 ML SYRINGE SUBCUT (17:51)
[2023-01-11 19:24] VITALS: BP 92/58; PULSE 95; RESP 20; TEMP 36.7; O2SAT 98
[2023-01-11] MEDS: Doxazosin Mesylate 1 MG TABLET G-TUBE (20:17)
[2023-01-11] MEDS: Melatonin 3 MG TABLET G-TUBE (20:17)
[2023-01-12] MEDS: metroNIDAZOLE/NS 500 MG/100 ML PIGGYBACK 100 MG IV ×3 (03:41→18:14)
[2023-01-12 04:00] VITALS: BP 108/73; PULSE 107; RESP 16; TEMP 37.1; O2SAT 92
[2023-01-12 06:33] LABS: Creatinine Clr Calc Pharmacy 113.9; Estimated Glomerular Filt Rate > 60
[2023-01-12 07:40] VITALS: BP 98/67; PULSE 104; RESP 17; TEMP 36.9; O2SAT 96
[2023-01-12] MEDS: guaiFENesin 100 MG/5 ML LIQUID 10 ML G-TUBE ×3 (09:33→20:23)
[2023-01-12] MEDS: Chlorhexidine Gluc Oral Rinse 15 ML MOUTHWASH BUCCAL ×2 (09:33→20:24)
[2023-01-12] MEDS: Lacosamide Oral Solution 100 MG/10 ML SOLUTION 200 MG G-TUBE ×2 (09:33→20:22)
[2023-01-12] MEDS: Atovaquone 750 MG/5 ML ORAL.SUSP G-TUBE ×2 (09:33→20:22)
[2023-01-12] MEDS: vancomycin HCL 1,500 MG in 0.9 % Sodium Chloride 500 ML 333.33 MG IV (09:34)
[2023-01-12] MEDS: Baclofen 10 MG TABLET 5 MG G-TUBE ×3 (09:34→20:23)
[2023-01-12] MEDS: Cholestyramine (With Sugar) 4 GM POWD.PACK G-TUBE (09:34)
[2023-01-12] MEDS: vancomycin HCL Oral Solution 125 MG/5 ML SOLN.RECON PO ×4 (09:34→20:22)
[2023-01-12] MEDS: Famotidine 20 MG TABLET G-TUBE ×2 (09:35→20:24)
[2023-01-12] MEDS: 0.9 % Sodium Chloride Flush 10 ML SYRINGE 5 ML IVFLUSH ×3 (09:35→20:24)
[2023-01-12] MEDS: 0.9 % Sodium Chloride Flush 3 ML SYRINGE IVFLUSH ×3 (09:35→20:25)
[2023-01-12] MEDS: Midodrine HCl 2.5 MG TABLET 7.5 MG G-TUBE ×3 (09:35→16:31)
[2023-01-12] MEDS: Finasteride 5 MG TABLET PO (09:35)
[2023-01-12] MEDS: Glycopyrrolate 1 MG TABLET G-TUBE ×3 (09:36→20:23)
[2023-01-12] MEDS: Collagenase Clostridium Hist. 30 GM TUBE 1 APPL TOPICAL (10:13)
--- NOTE | 2023-01-12 10:22 | MHC.CLN ---
F/U PATIENT WITH TRACH AND PEG TUBE. REQUIRES NUTRITION/HYDRATION VIA PEG. INCREASED NUTRITION NEEDS DUE IMPAIRED SKIN: STAGE IV PRESSURE INJURIES, UNSTAGEABLE AREAS. TOLERATING TUBE FEED AT MAX GOAL RATE: OSMOLITE 1.5 AT 70 ML PER HOUR X 18 HOURS MAX GOAL RATE; FREE WATER FLUSH 300 ML Q 4 HOURS; 30 ML PROSOURCE BID (120 KCALS, 30 G PROTEIN), 1 PACKET PARESH BID (160 KCALS, 5 G PROTEIN). PROVIDES 2170 TOTAL KCALS (35.5 KCALS/KG) 114 G PROTEIN (1.87 G/KG) 2760 ML FREE WATER FROM FORMULA AND FLUSH (45.2 ML/KG) ADDITIONAL PROTEIN TO PROMOTE WOUND HEALING. CONTINUE CURRENT TUBE FEED, FLUSH, PROTEIN SUPPLEMENTS. FOLLOW FOR TUBE FEED TOLERANCE, RESIDUALS, LABS, WOUND HEALING.
--- NOTE | 2023-01-12 10:44 | HE.PHANOTE ---
Vancomycin Dosing Addendum Patient was started on vancomycin on 01/02. Pharmacy was following until order got discontinued by provider. Patient was to be on vancomycin all along and is anticipated to be on it for another 6 weeks. Loaded with 1500 mg and chose to continue with 1000 mg Q12H. LEvel to be drawn / @0700 after two doses to make sure patient is within safe levels.
--- NOTE | 2023-01-12 11:08 | HO.PM.IMPN ---
Subjective Subjective Date of Service: 01/12/23 Interval History: seen and evaluated seems diarrhea improving missed few days of IV Vancomycin, discussed with pharmacy and to be restarted Review of Systems Patient nonverbal Physical Exam Vital Signs: Vital Signs: Last Vital Signs Temp 98.5 F 01/12/23 07:40 Pulse 104 H 01/12/23 07:40 Resp 17 01/12/23 07:40 BP 98/67 01/12/23 07:40 Pulse Ox 96 01/12/23 07:40 O2 Del Method Nasal Cannula 01/12/23 07:40 O2 Flow Rate 5.0 01/12/23 07:40 FiO2 28 01/12/23 07:40 Oxygen Flow Rate 8 01/02/23 11:18 BMI result Body Mass Index 20.5 Const: Other: Constitutional : Awake, not in distress Neck : Normal inspection, Supple Cardiovascular : RRR, no JVP, no lower extremity edema Respiratory : good bilateral air entry, no crackles Gastrointestinal: soft, lax, Normal bowel sounds, G-tube in place, no significant tenderness Skin : Warm, Dry, decubetus ulcers, deep on the side with large puncture, black discolored skin rectal area Neurological : Alert, No focal deficit but retracted Objective Data Active Medications Acetaminophen (Acetaminophen 325 Mg Tablet) 650 mg G-TUBE Q4H PRN PRN Reason: Fever Or Pain Last Admin: 01/09/23 16:38 Dose: 650 mg Documented By: TESS Atovaquone (Atovaquone 750 Mg/5 Ml Oral.Susp) 750 mg G-TUBE BID [facility] Last Admin: 01/12/23 09:33 Dose: 750 mg Documented By: DAKOTA Baclofen (Baclofen 10 Mg Tablet) 5 mg G-TUBE TID [facility] Last Admin: 01/12/23 09:34 Dose: 5 mg Documented By: DAKOTA Chlorhexidine Gluconate (Chlorhexidine Gluc Oral Rinse 15 Ml Mouthwash) 15 ml BUCCAL BID [facility] Last Admin: 01/12/23 09:33 Dose: 15 ml Documented By: DAKOTA Cholestyramine Resin (Cholestyramine (With Sugar) 4 Gm Powd.Pack) 4 gm G-TUBE DAILY [facility] Last Admin: 01/12/23 09:34 Dose: 4 gm Documented By: DAKOTA Collagenase (Collagenase Clostridium Hist. 30 Gm Tube) 1 appl TOPICAL DAILY [facility]; Protocol Last Admin: 01/12/23 10:13 Dose: 1 appl Documented By: DAKOTA Doxazosin Mesylate (Doxazosin Mesylate 1 Mg Tablet) 1 mg G-TUBE BEDTIME [facility]; Protocol Last Admin: 01/11/23 20:17 Dose: 1 mg Documented By: CARLOTA Enoxaparin Sodium (Enoxaparin Sodium 40 Mg/0.4 Ml Syringe) 40 mg SUBCUT Q24H [facility] Last Admin: 01/11/23 17:51 Dose: 40 mg Documented By: DAKOTA Famotidine (Famotidine 20 Mg Tablet) 20 mg G-TUBE BID [facility] Last Admin: 01/12/23 09:35 Dose: 20 mg Documented By: DAKOTA Finasteride (Finasteride 5 Mg Tablet) 5 mg PO DAILY [facility] Last Admin: 01/12/23 09:35 Dose: 5 mg Documented By: DAKOTA Glycopyrrolate (Glycopyrrolate 1 Mg Tablet) 1 mg G-TUBE TID [facility] Last Admin: 01/12/23 09:36 Dose: 1 mg Documented By: DAKOTA Guaifenesin (Guaifenesin 200 Mg/10 Ml 10 Ml Liquid) 10 ml G-TUBE Q4H PRN PRN Reason: Cough Guaifenesin (Guaifenesin 100 Mg/5 Ml Liquid) 10 ml G-TUBE TID [facility] Last Admin: 01/12/23 09:33 Dose: 10 ml Documented By: DAKOTA Metronidazole (Flagyl) 500 mg in 100 mls @ 100 mls/hr IV Q8H [facility] Last Infusion: 01/12/23 05:04 Dose: 0 mls/hr Documented By: CARLOTA Vancomycin HCl 1,000 mg/ (Sodium Chloride) 270 mls @ 270 mls/hr IV Q12H [facility] Lacosamide (Lacosamide Oral Solution 100 Mg/10 Ml Solution) 200 mg G-TUBE BID [facility] Last Admin: 01/12/23 09:33 Dose: 200 mg Documented By: DAKOTA Loperamide HCl (Loperamide Hcl Oral Liquid 2 Mg/15 Ml Liquid) 2 mg G-TUBE Q4H PRN PRN Reason: Diarrhea Last Admin: 01/06/23 22:15 Dose: 2 mg Documented By: HITESH Loperamide HCl (Loperamide Hcl Oral Liquid 2 Mg/15 Ml Liquid) 2 mg G-TUBE Q6H PRN PRN Reason: Diarrhea Melatonin (Melatonin 3 Mg Tablet) 3 mg G-TUBE BEDTIME [facility] Last Admin: 01/11/23 20:17 Dose: 3 mg Documented By: CARLOTA Midodrine (Midodrine Hcl 2.5 Mg Tablet) 7.5 mg G-TUBE TIDAC [facility] Last Admin: 01/12/23 09:35 Dose: 7.5 mg Documented By: DAKOTA Ondansetron HCl (Ondansetron Hcl 4 Mg/2 Ml Vial) 4 mg IVPUSH Q8H PRN PRN Reason: Nausea and Vomiting Pharmacy Consult (Consult Rx Perform Med Rec) 1 each MISCELLANE ONCE PRN PRN Reason: Consult order Pharmacy Consult (Consult Rx Vancomycin Dosing) 1 each MISCELLANE DAILY PRN PRN Reason: Consult order Scopolamine (Scopolamine 1.5 Mg Patch.Td.3) 1.5 mg TRANSDERMA Q3D [facility] Last Admin: 01/09/23 17:43 Dose: 1.5 mg Documented By: TESS Sodium Chloride (0.9 % Sodium Chloride Flush 3 Ml Syringe) 3 ml IVFLUSH QSHIFT [facility] Last Admin: 01/12/23 09:35 Dose: 3 ml Documented By: DAKOTA Sodium Chloride (0.9 % Sodium Chloride Flush 10 Ml Syringe) 5 ml IVFLUSH TID [facility] Last Admin: 01/12/23 09:35 Dose: 5 ml Documented By: DAKOTA Trimethoprim/Sulfamethoxazole (Sulfameth/Trimet 800/160/20 Ml 20 Ml Oral.Susp) 20 ml PO MoWeFr@1800 [facility] Last Admin: 01/10/23 18:04 Dose: 20 ml Documented By: SAMMIE Vancomycin HCl (Vancomycin Hcl Oral Solution 125 Mg/5 Ml Soln.Recon) 125 mg PO QID [facility] Last Admin: 01/12/23 09:34 Dose: 125 mg Documented By: DAKOTA Labs 01/11/23 05:09 01/12/23 05:18 Labs: Laboratory Results - last 24 hr 01/06/23 01/12/23 05:31 05:18 Estim Creat Clear Calc 113.9 Estimated GFR > 60 Lymphocyte Subset Cmmnt TNP Total Lymphocytes 465 L % CD3 Cells 72 Absolute CD3 Count 333 L % CD4 Cells 22 L Absolute CD4 Count 100 L CD4/CD8 Ratio 0.44 L % CD8 Cells 49 H Absolute CD8 Count 229 Assessment and Plan (1) Sepsis: Status: Acute (2) Stage IV decubitus ulcer: Status: Acute (3) Osteomyelitis of pelvis: Status: Acute (4) C. 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 CT positive for colitis and likely osteomyelitis of pelvis. positive cdif Sepsis and acute metabolic encephalopathy 2/[address] of abdomen and pelvis showed moderately severe ascending colitis from rectum to mid ascending colon without obstruction, perforation, free air positive for C diff vancomycin p.o. Contact precautions still with diarrhea, though slowing down, continue to monitor, imodium prn multiple DTI, unstageable, stage III, and stage IV pressure ulcers, chronic OM see wound care note for descriptions and recommendations Question of osteomyelitis of greater trochanters CT of abdomen pelvis found bilateral penetrating ulcers underlying the hips with with speech periosteal reaction to the right and left greater trochanters Patient will be covered by vancomycin IV, plan for 6 weeks iv vanc (end february 06, 2023) surgery appreciated no acute surgical intervention at this time Placement of picc w plan of 6 weeks IV Abx UTI in chronic Rubio catheter growing Pseudomonas likely colonizer, hold on treatment for now Diet Pt has G-tube in place Osmolite 1.5, Prosource, Brice, Fiber director global follow up hypernatremia increased free fluid, monitor, improving Stage IV mantle cell lymphoma in remission 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 Quality Stroke Does the patient have a stroke diagnosis?: No VTE Prior VTE?: No VTE Risk Level:: Medical - moderate - high VTE Device Contraindication: Treatment Not Indicated VTE Drug Contraindication: N/A - Med Ordered
--- NOTE | 2023-01-12 13:12 | MHC.CM.PN ---
per rounds pt will be getting a picc line and will be ready for dc tuesday to [facility]
[2023-01-12 15:31] VITALS: BP 96/51; PULSE 90; RESP 16; TEMP 36.7; O2SAT 98
[2023-01-12] MEDS: Sulfameth/Trimet 800/160/20 ML 20 ML ORAL.SUSP PO (17:22)
[2023-01-12] MEDS: Scopolamine 1.5 MG PATCH.TD.3 TRANSDERMA (17:22)
[2023-01-12] MEDS: Enoxaparin Sodium 40 MG/0.4 ML SYRINGE SUBCUT (17:23)
[2023-01-12 19:40] VITALS: BP 101/62; PULSE 91; RESP 18; TEMP 37.1; O2SAT 97
[2023-01-12] MEDS: Doxazosin Mesylate 1 MG TABLET G-TUBE (20:24)
[2023-01-12] MEDS: Melatonin 3 MG TABLET G-TUBE (20:24)
[2023-01-12] MEDS: vancomycin HCL 1,000 MG in 0.9 % Sodium Chloride 250 ML 270 MG IV (20:36)
[2023-01-13] VITALS (7 sets, daily range): BP systolic 92–105; BP diastolic 57–65; PULSE 63–99; RESP 16–21; TEMP 36.1–36.9; O2SAT 95–99
[2023-01-13] MEDS: metroNIDAZOLE/NS 500 MG/100 ML PIGGYBACK 100 MG IV (02:17)
[2023-01-13 07:15] LABS: Vancomycin Random 9.7 mcg/mL (15-20)
[2023-01-13 07:17] LABS: Creatinine Clr Calc Pharmacy 119.3; Estimated Glomerular Filt Rate > 60
--- NOTE | 2023-01-13 08:33 | HE.PHANOTE ---
VANCOMYCIN DOSING ADJUSTMENT BASED ON TROUGH OF 9.8 AND SCR DOSE INCREASED TO 1250 Q 12H
[2023-01-13] MEDS: Finasteride 5 MG TABLET PO (08:57)
[2023-01-13] MEDS: vancomycin HCL 1,250 MG in 0.9 % Sodium Chloride 250 ML 166.67 MG IV ×2 (08:58→21:38)
[2023-01-13] MEDS: Chlorhexidine Gluc Oral Rinse 15 ML MOUTHWASH BUCCAL ×2 (09:02→21:38)
[2023-01-13] MEDS: guaiFENesin 100 MG/5 ML LIQUID 10 ML G-TUBE ×3 (09:03→21:38)
[2023-01-13] MEDS: Midodrine HCl 2.5 MG TABLET 7.5 MG G-TUBE ×3 (09:04→16:27)
[2023-01-13] MEDS: Famotidine 20 MG TABLET G-TUBE ×2 (09:04→21:39)
[2023-01-13] MEDS: Glycopyrrolate 1 MG TABLET G-TUBE ×3 (09:05→21:39)
[2023-01-13] MEDS: Baclofen 10 MG TABLET 5 MG G-TUBE ×3 (09:05→21:39)
[2023-01-13] MEDS: Lacosamide Oral Solution 100 MG/10 ML SOLUTION 200 MG G-TUBE ×2 (09:06→21:38)
[2023-01-13] MEDS: Cholestyramine (With Sugar) 4 GM POWD.PACK G-TUBE (09:06)
[2023-01-13] MEDS: vancomycin HCL Oral Solution 125 MG/5 ML SOLN.RECON PO ×4 (09:06→21:38)
[2023-01-13] MEDS: Atovaquone 750 MG/5 ML ORAL.SUSP G-TUBE ×2 (09:06→21:38)
[2023-01-13] MEDS: 0.9 % Sodium Chloride Flush 10 ML SYRINGE 5 ML IVFLUSH ×3 (09:07→21:39)
[2023-01-13] MEDS: 0.9 % Sodium Chloride Flush 3 ML SYRINGE IVFLUSH ×2 (09:07→16:28)
[2023-01-13] MEDS: Collagenase Clostridium Hist. 30 GM TUBE 1 APPL TOPICAL (09:12)
--- NOTE | 2023-01-13 09:19 | HO.PM.IMPN ---
Subjective Subjective Date of Service: 01/13/23 Interval History: seen and evaluate diarrhea resolved monitoring Vancomycin levels Review of Systems Patient nonverbal Physical Exam Vital Signs: Vital Signs: Last Vital Signs Temp 97.3 F 01/13/23 07:50 Pulse 80 01/13/23 07:50 Resp 17 01/13/23 07:50 BP 99/58 L 01/13/23 07:50 Pulse Ox 97 01/13/23 07:50 O2 Del Method Nasal Cannula 01/13/23 07:50 O2 Flow Rate 9.0 01/13/23 07:50 FiO2 28 01/13/23 07:50 Oxygen Flow Rate 8 01/02/23 11:18 BMI result Body Mass Index 20.5 Const: Other: Constitutional : Awake, not in distress Neck : Normal inspection, Supple Cardiovascular : RRR, no JVP, no lower extremity edema Respiratory : good bilateral air entry, no crackles Gastrointestinal: soft, lax, Normal bowel sounds, G-tube in place, no significant tenderness Skin : Warm, Dry, decubetus ulcers, deep on the side with large puncture, black discolored skin rectal area Neurological : Alert, No focal deficit but retracted Objective Data Active Medications Acetaminophen (Acetaminophen 325 Mg Tablet) 650 mg G-TUBE Q4H PRN PRN Reason: Fever Or Pain Last Admin: 01/09/23 16:38 Dose: 650 mg Documented By: TESS Atovaquone (Atovaquone 750 Mg/5 Ml Oral.Susp) 750 mg G-TUBE BID [facility] Last Admin: 01/13/23 09:06 Dose: 750 mg Documented By: TIFFANIE Baclofen (Baclofen 10 Mg Tablet) 5 mg G-TUBE TID [facility] Last Admin: 01/13/23 09:05 Dose: 5 mg Documented By: TIFFANIE Chlorhexidine Gluconate (Chlorhexidine Gluc Oral Rinse 15 Ml Mouthwash) 15 ml BUCCAL BID [facility] Last Admin: 01/13/23 09:02 Dose: 15 ml Documented By: TIFFANIE Cholestyramine Resin (Cholestyramine (With Sugar) 4 Gm Powd.Pack) 4 gm G-TUBE DAILY [facility] Last Admin: 01/13/23 09:06 Dose: 4 gm Documented By: TIFFANIE Collagenase (Collagenase Clostridium Hist. 30 Gm Tube) 1 appl TOPICAL DAILY [facility]; Protocol Last Admin: 01/13/23 09:12 Dose: 1 appl Documented By: TIFFANIE Doxazosin Mesylate (Doxazosin Mesylate 1 Mg Tablet) 1 mg G-TUBE BEDTIME [facility]; Protocol Last Admin: 01/12/23 20:24 Dose: 1 mg Documented By: FABIANA Enoxaparin Sodium (Enoxaparin Sodium 40 Mg/0.4 Ml Syringe) 40 mg SUBCUT Q24H [facility] Last Admin: 01/12/23 17:23 Dose: 40 mg Documented By: DAKOTA Famotidine (Famotidine 20 Mg Tablet) 20 mg G-TUBE BID [facility] Last Admin: 01/13/23 09:04 Dose: 20 mg Documented By: TIFFANIE Finasteride (Finasteride 5 Mg Tablet) 5 mg PO DAILY [facility] Last Admin: 01/13/23 08:57 Dose: 5 mg Documented By: TIFFANIE Glycopyrrolate (Glycopyrrolate 1 Mg Tablet) 1 mg G-TUBE TID [facility] Last Admin: 01/13/23 09:05 Dose: 1 mg Documented By: TIFFANIE Guaifenesin (Guaifenesin 200 Mg/10 Ml 10 Ml Liquid) 10 ml G-TUBE Q4H PRN PRN Reason: Cough Guaifenesin (Guaifenesin 100 Mg/5 Ml Liquid) 10 ml G-TUBE TID [facility] Last Admin: 01/13/23 09:03 Dose: 10 ml Documented By: TIFFANIE Vancomycin HCl 1,250 mg/ (Sodium Chloride) 250 mls @ 166.667 mls/hr IV Q12H [facility] Last Admin: 01/13/23 08:58 Dose: 166.67 mls/hr Documented By: TIFFANIE Lacosamide (Lacosamide Oral Solution 100 Mg/10 Ml Solution) 200 mg G-TUBE BID [facility] Last Admin: 01/13/23 09:06 Dose: 200 mg Documented By: TIFFANIE Loperamide HCl (Loperamide Hcl Oral Liquid 2 Mg/15 Ml Liquid) 2 mg G-TUBE Q4H PRN PRN Reason: Diarrhea Last Admin: 01/06/23 22:15 Dose: 2 mg Documented By: JAMARCUSQC Loperamide HCl (Loperamide Hcl Oral Liquid 2 Mg/15 Ml Liquid) 2 mg G-TUBE Q6H PRN PRN Reason: Diarrhea Melatonin (Melatonin 3 Mg Tablet) 3 mg G-TUBE BEDTIME [facility] Last Admin: 01/12/23 20:24 Dose: 3 mg Documented By: FABIANA Midodrine (Midodrine Hcl 2.5 Mg Tablet) 7.5 mg G-TUBE TIDAC [facility] Last Admin: 01/13/23 09:04 Dose: 7.5 mg Documented By: TIFFANIE Ondansetron HCl (Ondansetron Hcl 4 Mg/2 Ml Vial) 4 mg IVPUSH Q8H PRN PRN Reason: Nausea and Vomiting Pharmacy Consult (Consult Rx Perform Med Rec) 1 each MISCELLANE ONCE PRN PRN Reason: Consult order Pharmacy Consult (Consult Rx Vancomycin Dosing) 1 each MISCELLANE DAILY PRN PRN Reason: Consult order Scopolamine (Scopolamine 1.5 Mg Patch.Td.3) 1.5 mg TRANSDERMA Q3D [facility] Last Admin: 01/12/23 17:22 Dose: 1.5 mg Documented By: DAKOTA Sodium Chloride (0.9 % Sodium Chloride Flush 3 Ml Syringe) 3 ml IVFLUSH QSHIFT [facility] Last Admin: 01/13/23 09:07 Dose: 3 ml Documented By: TIFFANIE Sodium Chloride (0.9 % Sodium Chloride Flush 10 Ml Syringe) 5 ml IVFLUSH TID [facility] Last Admin: 01/13/23 09:07 Dose: 5 ml Documented By: TIFFANIE Trimethoprim/Sulfamethoxazole (Sulfameth/Trimet 800/160/20 Ml 20 Ml Oral.Susp) 20 ml PO MoWeFr@1800 [facility] Last Admin: 01/12/23 17:22 Dose: 20 ml Documented By: DAKOTA Vancomycin HCl (Vancomycin Hcl Oral Solution 125 Mg/5 Ml Soln.Recon) 125 mg PO QID [facility] Last Admin: 01/13/23 09:06 Dose: 125 mg Documented By: TIFFANIE Labs 01/11/23 05:09 01/13/23 06:50 Labs: Laboratory Results - last 24 hr 01/13/23 01/13/23 06:50 06:50 Estim Creat Clear Calc 119.3 Estimated GFR > 60 Random Vancomycin 9.7 L Assessment and Plan (1) Sepsis: Status: Acute (2) Stage IV decubitus ulcer: Status: Acute (3) Osteomyelitis of pelvis: Status: Acute (4) C. difficile colitis: Status: Acute Plan 52M PMH significant for?stage IV mantle cell lymphoma, RACE STEWARD toxoplasmosis, acute on chronic respiratory failure with trach in place on 35% trach mask, normocytic anemia, BPH, urinary retention with chronic catheter in place, seizure disorder, G-tube in place, who presenterd to the ED from [facility] for evaluation of fever. CT positive for colitis and likely osteomyelitis of pelvis. positive cdif Sepsis and acute metabolic encephalopathy 2/[address] of abdomen and pelvis showed moderately severe ascending colitis from rectum to mid ascending colon without obstruction, perforation, free air positive for C diff vancomycin p.o. Contact precautions diarrhea resolving imodium prn multiple DTI, unstageable, stage III, and stage IV pressure ulcers, chronic OM see wound care note for descriptions and recommendations Question of osteomyelitis of greater trochanters CT of abdomen pelvis found bilateral penetrating ulcers underlying the hips with with speech periosteal reaction to the right and left greater trochanters Patient will be covered by vancomycin IV, plan for 6 weeks iv vanc (end february 06, 2023) surgery appreciated no acute surgical intervention at this time Placement of picc w plan of 6 weeks IV Abx follow Vancomycin trough UTI in chronic Rubio catheter growing Pseudomonas likely colonizer, hold on treatment for now Diet Pt has G-tube in place Osmolite 1.5, Prosource, Brice, 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 follow up hypernatremia increased free fluid, monitor, improving Stage IV mantle cell lymphoma in remission 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 Quality Stroke Does the patient have a stroke diagnosis?: No VTE Prior VTE?: No VTE Risk Level:: Medical - moderate - high VTE Device Contraindication: Treatment Not Indicated VTE Drug Contraindication: N/A - Med Ordered
--- NOTE | 2023-01-13 11:05 | MHC.CM.PN ---
MD JORGE L, PT WILL BE READY TO DC BY TOMORROW UPDATES SENT TO [facility] VIA [facility] [facility] AND A VM HAS BEEN LEFT FOR CHELI ISAAC [phone] AWAITING RESPONSE TO ENSURE THEY ARE ABLE TO MANAGE PTS IV ABX NEEDS
[2023-01-13] MEDS: Enoxaparin Sodium 40 MG/0.4 ML SYRINGE SUBCUT (17:55)
--- NOTE | 2023-01-13 18:52 | PC.NURSE ---
Cornelius Peng called and requested that Jessica Lorenzo no be given information. Brother educated that we have her as the primary contact in our [employer] system.
[2023-01-13] MEDS: Doxazosin Mesylate 1 MG TABLET G-TUBE (21:38)
[2023-01-13] MEDS: Melatonin 3 MG TABLET G-TUBE (21:39)
[2023-01-14] MEDS: 0.9 % Sodium Chloride Flush 3 ML SYRINGE IVFLUSH ×4 (00:02→21:35)
[2023-01-14 03:37] VITALS: BP 109/70; PULSE 89; RESP 18; TEMP 36.3; O2SAT 98
[2023-01-14 07:40] VITALS: BP 101/67; PULSE 81; RESP 17; TEMP 35.9; O2SAT 96
[2023-01-14 08:28] LABS: Creatinine Clr Calc Pharmacy 115.7; Estimated Glomerular Filt Rate > 60
[2023-01-14 08:37] LABS: Vancomycin Random 16.5 mcg/mL (15-20)
[2023-01-14] MEDS: Chlorhexidine Gluc Oral Rinse 15 ML MOUTHWASH BUCCAL ×2 (09:03→21:37)
[2023-01-14] MEDS: guaiFENesin 100 MG/5 ML LIQUID 10 ML G-TUBE ×3 (09:03→21:37)
[2023-01-14] MEDS: Cholestyramine (With Sugar) 4 GM POWD.PACK G-TUBE (09:03)
[2023-01-14] MEDS: Atovaquone 750 MG/5 ML ORAL.SUSP G-TUBE ×2 (09:03→21:37)
[2023-01-14] MEDS: Finasteride 5 MG TABLET PO (09:03)
[2023-01-14] MEDS: Baclofen 10 MG TABLET 5 MG G-TUBE ×3 (09:04→21:36)
[2023-01-14] MEDS: Glycopyrrolate 1 MG TABLET G-TUBE ×3 (09:04→21:37)
[2023-01-14] MEDS: Famotidine 20 MG TABLET G-TUBE ×2 (09:04→21:36)
[2023-01-14] MEDS: Midodrine HCl 2.5 MG TABLET 7.5 MG G-TUBE ×3 (09:04→16:52)
[2023-01-14] MEDS: 0.9 % Sodium Chloride Flush 10 ML SYRINGE 5 ML IVFLUSH ×3 (09:05→21:35)
[2023-01-14] MEDS: vancomycin HCL Oral Solution 125 MG/5 ML SOLN.RECON PO ×4 (09:06→21:37)
[2023-01-14] MEDS: Lacosamide Oral Solution 100 MG/10 ML SOLUTION 200 MG G-TUBE ×2 (09:06→21:37)
[2023-01-14] MEDS: vancomycin HCL 1,250 MG in 0.9 % Sodium Chloride 250 ML 166.67 MG IV ×2 (09:32→21:53)
--- NOTE | 2023-01-14 09:38 | HE.PHANOTE ---
VANCOMYCIN DOSING BASED ON SCR OF 0.66 AND TROUGH OF 16.56 DOSE CONTINUED AT 1250 Q 12. NEXT TROUGH 01/15 @ 0700
[2023-01-14] MEDS: Collagenase Clostridium Hist. 30 GM TUBE 1 APPL TOPICAL (10:33)
--- NOTE | 2023-01-14 12:05 | MHC.CM.PN ---
[facility] unable to take pt back till tuesday as they do not have vancomycin
--- NOTE | 2023-01-14 12:39 | HO.PM.IMPN ---
Subjective Subjective Date of Service: 01/14/23 Interval History: seen and evaluate giving a thumb up when asked how he feels diarrhea resolved Elevated Vancomycin levels of 16.5 Review of Systems Patient nonverbal Physical Exam Vital Signs: Vital Signs: Last Vital Signs Temp 96.7 F L 01/14/23 07:40 Pulse 81 01/14/23 07:40 Resp 17 01/14/23 07:40 BP 101/67 01/14/23 07:40 Pulse Ox 96 01/14/23 07:40 O2 Del Method Nasal Cannula 01/14/23 07:40 O2 Flow Rate 6 01/14/23 07:40 FiO2 28 01/14/23 07:40 Oxygen Flow Rate 8 01/02/23 11:18 BMI result Body Mass Index 20.5 Const: Other: Constitutional : Awake, not in distress Neck : Normal inspection, Supple Cardiovascular : RRR, no JVP, no lower extremity edema Respiratory : good bilateral air entry, no crackles Gastrointestinal: soft, lax, Normal bowel sounds, G-tube in place, no significant tenderness Skin : Warm, Dry, decubetus ulcers, deep on the side with large puncture, black discolored skin rectal area Neurological : Alert, No focal deficit but retracted Objective Data Active Medications Acetaminophen (Acetaminophen 325 Mg Tablet) 650 mg G-TUBE Q4H PRN PRN Reason: Fever Or Pain Last Admin: 01/09/23 16:38 Dose: 650 mg Documented By: TESS Atovaquone (Atovaquone 750 Mg/5 Ml Oral.Susp) 750 mg G-TUBE BID [facility] Last Admin: 01/14/23 09:03 Dose: 750 mg Documented By: HELEN Baclofen (Baclofen 10 Mg Tablet) 5 mg G-TUBE TID [facility] Last Admin: 01/14/23 09:04 Dose: 5 mg Documented By: HLEEN Chlorhexidine Gluconate (Chlorhexidine Gluc Oral Rinse 15 Ml Mouthwash) 15 ml BUCCAL BID [facility] Last Admin: 01/14/23 09:03 Dose: 15 ml Documented By: HELEN Cholestyramine Resin (Cholestyramine (With Sugar) 4 Gm Powd.Pack) 4 gm G-TUBE DAILY [facility] [place] Last Admin: 01/14/23 09:03 Dose: 4 gm Documented By: HELEN Collagenase (Collagenase Clostridium Hist. 30 Gm Tube) 1 appl TOPICAL DAILY [facility]; Protocol Last Admin: 01/14/23 10:33 Dose: 1 appl Documented By: HELEN Doxazosin Mesylate (Doxazosin Mesylate 1 Mg Tablet) 1 mg G-TUBE BEDTIME [facility]; Protocol Last Admin: 01/13/23 21:38 Dose: 1 mg Documented By: FABIANA Enoxaparin Sodium (Enoxaparin Sodium 40 Mg/0.4 Ml Syringe) 40 mg SUBCUT Q24H [facility] [place] Last Admin: 01/13/23 17:55 Dose: 40 mg Documented By: TIFFANIE Famotidine (Famotidine 20 Mg Tablet) 20 mg G-TUBE BID [facility] [place] Last Admin: 01/14/23 09:04 Dose: 20 mg Documented By: HELEN Finasteride (Finasteride 5 Mg Tablet) 5 mg PO DAILY [facility] [place] Last Admin: 01/14/23 09:03 Dose: 5 mg Documented By: HELEN Glycopyrrolate (Glycopyrrolate 1 Mg Tablet) 1 mg G-TUBE TID [facility] [place] Last Admin: 01/14/23 09:04 Dose: 1 mg Documented By: HELEN Guaifenesin (Guaifenesin 200 Mg/10 Ml 10 Ml Liquid) 10 ml G-TUBE Q4H PRN PRN Reason: Cough Guaifenesin (Guaifenesin 100 Mg/5 Ml Liquid) 10 ml G-TUBE TID [facility] [place] Last Admin: 01/14/23 09:03 Dose: 10 ml Documented By: HELEN Vancomycin HCl 1,250 mg/ (Sodium Chloride) 250 mls @ 166.667 mls/hr IV Q12H [facility] [place] Last Infusion: 01/14/23 11:08 Dose: 166.67 mls/hr Documented By: HELEN Lacosamide (Lacosamide Oral Solution 100 Mg/10 Ml Solution) 200 mg G-TUBE BID [facility] [place] Last Admin: 01/14/23 09:06 Dose: 200 mg Documented By: HELEN Loperamide HCl (Loperamide Hcl Oral Liquid 2 Mg/15 Ml Liquid) 2 mg G-TUBE Q4H PRN PRN Reason: Diarrhea Last Admin: 01/06/23 22:15 Dose: 2 mg Documented By: HITESH Loperamide HCl (Loperamide Hcl Oral Liquid 2 Mg/15 Ml Liquid) 2 mg G-TUBE Q6H PRN PRN Reason: Diarrhea Melatonin (Melatonin 3 Mg Tablet) 3 mg G-TUBE BEDTIME [facility] [place] Last Admin: 01/13/23 21:39 Dose: 3 mg Documented By: FABIANA Midodrine (Midodrine Hcl 2.5 Mg Tablet) 7.5 mg G-TUBE TIDAC [facility] [place] Last Admin: 01/14/23 09:04 Dose: 7.5 mg Documented By: HELEN Ondansetron HCl (Ondansetron Hcl 4 Mg/2 Ml Vial) 4 mg IVPUSH Q8H PRN PRN Reason: Nausea and Vomiting Pharmacy Consult (Consult Rx Perform Med Rec) 1 each MISCELLANE ONCE PRN PRN Reason: Consult order Pharmacy Consult (Consult Rx Vancomycin Dosing) 1 each MISCELLANE DAILY PRN PRN Reason: Consult order Scopolamine (Scopolamine 1.5 Mg Patch.Td.3) 1.5 mg TRANSDERMA Q3D [facility] [place] Last Admin: 01/12/23 17:22 Dose: 1.5 mg Documented By: DAKOTA Sodium Chloride (0.9 % Sodium Chloride Flush 3 Ml Syringe) 3 ml IVFLUSH QSHIFT [facility] [place] Last Admin: 01/14/23 09:05 Dose: 3 ml Documented By: HELEN Sodium Chloride (0.9 % Sodium Chloride Flush 10 Ml Syringe) 5 ml IVFLUSH TID [facility] [place] Last Admin: 01/14/23 09:05 Dose: 5 ml Documented By: HELEN Trimethoprim/Sulfamethoxazole (Sulfameth/Trimet 800/160/20 Ml 20 Ml Oral.Susp) 20 ml PO MoWeFr@1800 [facility] [place] Last Admin: 01/12/23 17:22 Dose: 20 ml Documented By: DAKOTA Vancomycin HCl (Vancomycin Hcl Oral Solution 125 Mg/5 Ml Soln.Recon) 125 mg PO QID [facility] Last Admin: 01/14/23 09:06 Dose: 125 mg Documented By: HELEN Labs 01/11/23 05:09 01/14/23 07:20 Labs: Laboratory Results - last 24 hr 01/14/23 01/14/23 07:20 07:20 Estim Creat Clear Calc 115.7 Estimated GFR > 60 Random Vancomycin 16.5 Assessment and Plan (1) Sepsis: Status: Acute (2) Stage IV decubitus ulcer: Status: Acute (3) Osteomyelitis of pelvis: Status: Acute (4) C. 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 CT positive for colitis and likely osteomyelitis of pelvis. positive cdif Sepsis and acute metabolic encephalopathy 2/[address] of abdomen and pelvis showed moderately severe ascending colitis from rectum to mid ascending colon without obstruction, perforation, free air positive for C diff vancomycin p.o. Contact precautions diarrhea resolving imodium prn multiple DTI, unstageable, stage III, and stage IV pressure ulcers, chronic OM see wound care note for descriptions and recommendations Question of osteomyelitis of greater trochanters CT of abdomen pelvis found bilateral penetrating ulcers underlying the hips with with speech periosteal reaction to the right and left greater trochanters Patient will be covered by vancomycin IV, plan for 6 weeks iv vanc (end february 06, 2023) surgery appreciated no acute surgical intervention at this time Placement of picc w plan of 6 weeks IV Abx follow Vancomycin trough, 16.5 decrease Vanco to 1 gm q12 UTI in chronic Rubio catheter growing Pseudomonas likely colonizer, hold on treatment for now Diet Pt has G-tube in place Osmolite 1.5, Prosource, Brice, 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 follow up hypernatremia increased free fluid, monitor, improving Stage IV mantle cell lymphoma in remission 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 Quality Stroke Does the patient have a stroke diagnosis?: No VTE Prior VTE?: No VTE Risk Level:: Medical - moderate - high VTE Device Contraindication: Treatment Not Indicated VTE Drug Contraindication: N/A - Med Ordered
--- NOTE | 2023-01-14 13:26 | MHC.CLN ---
F/U CONTINUES TO TOLERATE TUBE FEED AT MAX GOAL RATE: OSMOLITE 1.5 AT 70 ML PER HOUR X 18 HOURS MAX GOAL RATE; FREE WATER FLUSH 300 ML Q 4 HOURS; 30 ML PROSOURCE BID (120 KCALS, 30 G PROTEIN), 1 PACKET PARESH BID (160 KCALS, 5 G PROTEIN). PROVIDES 2170 TOTAL KCALS (35.5 KCALS/KG) 114 G PROTEIN (1.87 G/KG) 2760 ML FREE WATER FROM FORMULA AND FLUSH (45.2 ML/KG) ADDITIONAL PROTEIN TO PROMOTE WOUND HEALING. CONTINUE CURRENT TUBE FEED, FLUSH, PROTEIN SUPPLEMENTS. FOLLOW FOR TUBE FEED TOLERANCE, RESIDUALS, LABS, WOUND HEALING.
[2023-01-14 15:13] VITALS: BP 103/63; PULSE 89; RESP 16; TEMP 36.6; O2SAT 98
[2023-01-14] MEDS: Sulfameth/Trimet 800/160/20 ML 20 ML ORAL.SUSP PO (16:52)
[2023-01-14] MEDS: Enoxaparin Sodium 40 MG/0.4 ML SYRINGE SUBCUT (16:53)
[2023-01-14 19:29] VITALS: BP 97/52; PULSE 86; RESP 16; TEMP 36.6; O2SAT 92
[2023-01-14] MEDS: Melatonin 3 MG TABLET G-TUBE (21:37)
[2023-01-14] MEDS: Doxazosin Mesylate 1 MG TABLET G-TUBE (21:37)
[2023-01-15 04:00] VITALS: BP 109/72; PULSE 85; RESP 16; TEMP 36.6; O2SAT 97
--- NOTE | 2023-01-15 05:20 | PC.NURSE ---
Pt had copious amount of tracheal secretions few times, pt able to expectorate, suctioned and pt tolerated, maintained on O2 at 6L/min via trach mask with 20% FIO2, Trach care done and tolerated.
[2023-01-15 07:13] LABS: Estimated Glomerular Filt Rate > 60
--- NOTE | 2023-01-15 07:36 | HE.PHANOTE ---
RE VANCO TROUGH UP TO 20, MARGINAL INCREASE IN SCR. WILL REDUCE DOSE TO 1 G Q12, AND START IN 5 HOURS TO GIVE BODY MORE DRUG FREE TIME. NEXT LEVEL DUE 01/16 @0900 PETRA
[2023-01-15 07:47] VITALS: BP 110/74; PULSE 78; RESP 16; TEMP 36.7; O2SAT 98
[2023-01-15] MEDS: Cholestyramine (With Sugar) 4 GM POWD.PACK G-TUBE (08:58)
[2023-01-15] MEDS: Chlorhexidine Gluc Oral Rinse 15 ML MOUTHWASH BUCCAL ×2 (08:58→20:44)
[2023-01-15] MEDS: Midodrine HCl 2.5 MG TABLET 7.5 MG G-TUBE ×3 (08:59→16:34)
[2023-01-15] MEDS: guaiFENesin 100 MG/5 ML LIQUID 10 ML G-TUBE ×3 (08:59→20:44)
[2023-01-15] MEDS: Lacosamide Oral Solution 100 MG/10 ML SOLUTION 200 MG G-TUBE ×2 (08:59→20:44)
[2023-01-15] MEDS: vancomycin HCL Oral Solution 125 MG/5 ML SOLN.RECON PO ×4 (08:59→20:44)
[2023-01-15] MEDS: Finasteride 5 MG TABLET PO (09:00)
[2023-01-15] MEDS: Atovaquone 750 MG/5 ML ORAL.SUSP G-TUBE ×2 (09:00→20:44)
[2023-01-15] MEDS: Baclofen 10 MG TABLET 5 MG G-TUBE ×3 (09:00→20:44)
[2023-01-15] MEDS: Glycopyrrolate 1 MG TABLET G-TUBE ×3 (09:00→20:44)
[2023-01-15] MEDS: 0.9 % Sodium Chloride Flush 3 ML SYRINGE IVFLUSH ×2 (09:01→23:59)
[2023-01-15] MEDS: Famotidine 20 MG TABLET G-TUBE ×2 (09:01→20:44)
[2023-01-15] MEDS: 0.9 % Sodium Chloride Flush 10 ML SYRINGE 5 ML IVFLUSH ×3 (09:01→20:45)
--- NOTE | 2023-01-15 09:40 | P.PNGS_ITS ---
Subjective Subjective Date of Service: 01/15/23 Interval history: The patient is seen in coverage for Dr. Giordano Patient is at his baseline according to nursing staff. No concerns were expressed by the nurse and wound care is being performed as ordered Physical Exam Vital Signs: Vital Signs: Last Vital Signs Temp 98.0 F 01/15/23 07:47 Pulse 78 01/15/23 07:47 Resp 16 01/15/23 07:47 BP 110/74 01/15/23 07:47 Pulse Ox 98 01/15/23 07:47 O2 Del Method Trach Collar 01/15/23 07:47 O2 Flow Rate 6 01/15/23 07:47 FiO2 28 01/15/23 07:47 Oxygen Flow Rate 8 01/02/23 11:18 BMI result Body Mass Index 20.5 The patient is in right lateral decubitus position and contracted into the position. There is no respiratory distress Dressings visible on the patient's left are intact with no significant drainage, no crepitance and no overt erythema No lower extremity edema is present Objective Data Active Medications Acetaminophen (Acetaminophen 325 Mg Tablet) 650 mg G-TUBE Q4H PRN PRN Reason: Fever Or Pain Last Admin: 01/09/23 16:38 Dose: 650 mg Documented By: TESS Atovaquone (Atovaquone 750 Mg/5 Ml Oral.Susp) 750 mg G-TUBE BID [facility] Last Admin: 01/15/23 09:00 Dose: 750 mg Documented By: HELEN Baclofen (Baclofen 10 Mg Tablet) 5 mg G-TUBE TID [facility] Last Admin: 01/15/23 09:00 Dose: 5 mg Documented By: HELEN Chlorhexidine Gluconate (Chlorhexidine Gluc Oral Rinse 15 Ml Mouthwash) 15 ml BUCCAL BID [facility] Last Admin: 01/15/23 08:58 Dose: 15 ml Documented By: HELEN Cholestyramine Resin (Cholestyramine (With Sugar) 4 Gm Powd.Pack) 4 gm G-TUBE DAILY [facility] [place] Last Admin: 01/15/23 08:58 Dose: 4 gm Documented By: HELEN Collagenase (Collagenase Clostridium Hist. 30 Gm Tube) 1 appl TOPICAL DAILY [facility]; Protocol Last Admin: 01/14/23 10:33 Dose: 1 appl Documented By: HELEN Doxazosin Mesylate (Doxazosin Mesylate 1 Mg Tablet) 1 mg G-TUBE BEDTIME [facility]; Protocol Last Admin: 01/14/23 21:37 Dose: 1 mg Documented By: BALJINDER Enoxaparin Sodium (Enoxaparin Sodium 40 Mg/0.4 Ml Syringe) 40 mg SUBCUT Q24H [facility] [place] Last Admin: 01/14/23 16:53 Dose: 40 mg Documented By: LISA Famotidine (Famotidine 20 Mg Tablet) 20 mg G-TUBE BID [facility] [place] Last Admin: 01/15/23 09:01 Dose: 20 mg Documented By: HELEN Finasteride (Finasteride 5 Mg Tablet) 5 mg PO DAILY [facility] [place] Last Admin: 01/15/23 09:00 Dose: 5 mg Documented By: HELEN Glycopyrrolate (Glycopyrrolate 1 Mg Tablet) 1 mg G-TUBE TID [facility] Last Admin: 01/15/23 09:00 Dose: 1 mg Documented By: HELEN Guaifenesin (Guaifenesin 200 Mg/10 Ml 10 Ml Liquid) 10 ml G-TUBE Q4H PRN PRN Reason: Cough Guaifenesin (Guaifenesin 100 Mg/5 Ml Liquid) 10 ml G-TUBE TID [facility] Last Admin: 01/15/23 08:59 Dose: 10 ml Documented By: HELEN Vancomycin HCl 1,000 mg/ (Sodium Chloride) 270 mls @ 270 mls/hr IV Q12H [facility] Lacosamide (Lacosamide Oral Solution 100 Mg/10 Ml Solution) 200 mg G-TUBE BID [facility] Last Admin: 01/15/23 08:59 Dose: 200 mg Documented By: HELEN Loperamide HCl (Loperamide Hcl Oral Liquid 2 Mg/15 Ml Liquid) 2 mg G-TUBE Q4H PRN PRN Reason: Diarrhea Last Admin: 01/06/23 22:15 Dose: 2 mg Documented By: HITESH Loperamide HCl (Loperamide Hcl Oral Liquid 2 Mg/15 Ml Liquid) 2 mg G-TUBE Q6H PRN PRN Reason: Diarrhea Melatonin (Melatonin 3 Mg Tablet) 3 mg G-TUBE BEDTIME [facility] [place] Last Admin: 01/14/23 21:37 Dose: 3 mg Documented By: BALJINDER Midodrine (Midodrine Hcl 2.5 Mg Tablet) 7.5 mg G-TUBE TIDAC [facility] [place] Last Admin: 01/15/23 08:59 Dose: 7.5 mg Documented By: HELEN Ondansetron HCl (Ondansetron Hcl 4 Mg/2 Ml Vial) 4 mg IVPUSH Q8H PRN PRN Reason: Nausea and Vomiting Pharmacy Consult (Consult Rx Perform Med Rec) 1 each MISCELLANE ONCE PRN PRN Reason: Consult order Pharmacy Consult (Consult Rx Vancomycin Dosing) 1 each MISCELLANE DAILY PRN PRN Reason: Consult order Scopolamine (Scopolamine 1.5 Mg Patch.Td.3) 1.5 mg TRANSDERMA Q3D [facility] Last Admin: 01/12/23 17:22 Dose: 1.5 mg Documented By: DAKOTA Sodium Chloride (0.9 % Sodium Chloride Flush 3 Ml Syringe) 3 ml IVFLUSH QSHIFT [facility] [place] Last Admin: 01/15/23 09:01 Dose: 3 ml Documented By: HELEN Sodium Chloride (0.9 % Sodium Chloride Flush 10 Ml Syringe) 5 ml IVFLUSH TID [facility] [place] Last Admin: 01/15/23 09:01 Dose: 5 ml Documented By: HELEN Trimethoprim/Sulfamethoxazole (Sulfameth/Trimet 800/160/20 Ml 20 Ml Oral.Susp) 20 ml PO MoWeFr@1800 [facility] [place] Last Admin: 01/14/23 16:52 Dose: 20 ml Documented By: LISA Vancomycin HCl (Vancomycin Hcl Oral Solution 125 Mg/5 Ml Soln.Recon) 125 mg PO QID [facility] [place] Last Admin: 01/15/23 08:59 Dose: 125 mg Documented By: HELEN Labs 01/11/23 05:09 01/15/23 06:45 Labs: Laboratory Results - last 24 hr 01/15/23 01/15/23 06:45 06:45 Estim Creat Clear Calc 106.0 Estimated GFR > 60 Random Vancomycin 20.0 Procedures Date of Service Date of Service: 01/15/23 Progress Note: A&P Assessment and plan (1) Stage IV decubitus ulcer: Status: Acute (2) C. difficile colitis: Status: Acute Plan Continue local dressing changes as ordered Position changes frequently to try to mitigate additional decubiti. Time Spent With Patient Time: Total time managing care of this patient today ____ minutes. Quality Stroke Does the patient have a stroke diagnosis?: No VTE Prior VTE?: No VTE Risk Level:: Medical - moderate - high VTE Device Contraindication: Treatment Not Indicated VTE Drug Contraindication: N/A - Med Ordered
[2023-01-15] MEDS: vancomycin HCL 1,000 MG in 0.9 % Sodium Chloride 250 ML 270 MG IV ×2 (11:28→22:15)
--- NOTE | 2023-01-15 12:52 | HO.PM.IMPN ---
Subjective Subjective Date of Service: 01/15/23 Interval History: seen and evaluate looks comfortable diarrhea resolved Elevated Vancomycin levels of 20 Review of Systems Patient nonverbal Physical Exam Vital Signs: Vital Signs: Last Vital Signs Temp 98.0 F 01/15/23 07:47 Pulse 78 01/15/23 07:47 Resp 16 01/15/23 07:47 BP 110/74 01/15/23 07:47 Pulse Ox 98 01/15/23 07:47 O2 Del Method Trach Collar 01/15/23 07:47 O2 Flow Rate 6 01/15/23 07:47 FiO2 28 01/15/23 07:47 Oxygen Flow Rate 8 01/02/23 11:18 BMI result Body Mass Index 20.5 Const: Other: Constitutional : Awake, not in distress Neck : Normal inspection, Supple Cardiovascular : RRR, no JVP, no lower extremity edema Respiratory : good bilateral air entry, no crackles Gastrointestinal: soft, lax, Normal bowel sounds, G-tube in place, no significant tenderness Skin : Warm, Dry, decubetus ulcers, deep on the side with large puncture, black discolored skin rectal area Neurological : Alert, No focal deficit but retracted Objective Data Active Medications Acetaminophen (Acetaminophen 325 Mg Tablet) 650 mg G-TUBE Q4H PRN PRN Reason: Fever Or Pain Last Admin: 01/09/23 16:38 Dose: 650 mg Documented By: TESS Atovaquone (Atovaquone 750 Mg/5 Ml Oral.Susp) 750 mg G-TUBE BID [facility] Last Admin: 01/15/23 09:00 Dose: 750 mg Documented By: HELEN Baclofen (Baclofen 10 Mg Tablet) 5 mg G-TUBE TID [facility] Last Admin: 01/15/23 09:00 Dose: 5 mg Documented By: HELEN Chlorhexidine Gluconate (Chlorhexidine Gluc Oral Rinse 15 Ml Mouthwash) 15 ml BUCCAL BID [facility] Last Admin: 01/15/23 08:58 Dose: 15 ml Documented By: HELEN Cholestyramine Resin (Cholestyramine (With Sugar) 4 Gm Powd.Pack) 4 gm G-TUBE DAILY [facility] Last Admin: 01/15/23 08:58 Dose: 4 gm Documented By: HELEN Collagenase (Collagenase Clostridium Hist. 30 Gm Tube) 1 appl TOPICAL DAILY [facility]; Protocol Last Admin: 01/14/23 10:33 Dose: 1 appl Documented By: HELEN Doxazosin Mesylate (Doxazosin Mesylate 1 Mg Tablet) 1 mg G-TUBE BEDTIME [facility]; Protocol Last Admin: 01/14/23 21:37 Dose: 1 mg Documented By: BALJINDER Enoxaparin Sodium (Enoxaparin Sodium 40 Mg/0.4 Ml Syringe) 40 mg SUBCUT Q24H [facility] Last Admin: 01/14/23 16:53 Dose: 40 mg Documented By: LISA Famotidine (Famotidine 20 Mg Tablet) 20 mg G-TUBE BID [facility] Last Admin: 01/15/23 09:01 Dose: 20 mg Documented By: HELEN Finasteride (Finasteride 5 Mg Tablet) 5 mg PO DAILY [facility] Last Admin: 01/15/23 09:00 Dose: 5 mg Documented By: HELEN Glycopyrrolate (Glycopyrrolate 1 Mg Tablet) 1 mg G-TUBE TID [facility] Last Admin: 01/15/23 09:00 Dose: 1 mg Documented By: HELEN Guaifenesin (Guaifenesin 200 Mg/10 Ml 10 Ml Liquid) 10 ml G-TUBE Q4H PRN PRN Reason: Cough Guaifenesin (Guaifenesin 100 Mg/5 Ml Liquid) 10 ml G-TUBE TID [facility] Last Admin: 01/15/23 08:59 Dose: 10 ml Documented By: HELEN Vancomycin HCl 1,000 mg/ (Sodium Chloride) 270 mls @ 270 mls/hr IV Q12H [facility] Last Infusion: 01/15/23 12:46 Dose: 270 mls/hr Documented By: HELEN Lacosamide (Lacosamide Oral Solution 100 Mg/10 Ml Solution) 200 mg G-TUBE BID [facility] Last Admin: 01/15/23 08:59 Dose: 200 mg Documented By: HELEN Loperamide HCl (Loperamide Hcl Oral Liquid 2 Mg/15 Ml Liquid) 2 mg G-TUBE Q4H PRN PRN Reason: Diarrhea Last Admin: 01/06/23 22:15 Dose: 2 mg Documented By: HITESH Loperamide HCl (Loperamide Hcl Oral Liquid 2 Mg/15 Ml Liquid) 2 mg G-TUBE Q6H PRN PRN Reason: Diarrhea Melatonin (Melatonin 3 Mg Tablet) 3 mg G-TUBE BEDTIME [facility] Last Admin: 01/14/23 21:37 Dose: 3 mg Documented By: BALJINDER Midodrine (Midodrine Hcl 2.5 Mg Tablet) 7.5 mg G-TUBE TIDAC [facility] Last Admin: 01/15/23 11:51 Dose: 7.5 mg Documented By: CAPO Ondansetron HCl (Ondansetron Hcl 4 Mg/2 Ml Vial) 4 mg IVPUSH Q8H PRN PRN Reason: Nausea and Vomiting Pharmacy Consult (Consult Rx Perform Med Rec) 1 each MISCELLANE ONCE PRN PRN Reason: Consult order Pharmacy Consult (Consult Rx Vancomycin Dosing) 1 each MISCELLANE DAILY PRN PRN Reason: Consult order Scopolamine (Scopolamine 1.5 Mg Patch.Td.3) 1.5 mg TRANSDERMA Q3D [facility] Last Admin: 01/12/23 17:22 Dose: 1.5 mg Documented By: DAKOTA Sodium Chloride (0.9 % Sodium Chloride Flush 3 Ml Syringe) 3 ml IVFLUSH QSHIFT [facility] Last Admin: 01/15/23 09:01 Dose: 3 ml Documented By: HELEN Sodium Chloride (0.9 % Sodium Chloride Flush 10 Ml Syringe) 5 ml IVFLUSH TID [facility] Last Admin: 01/15/23 09:01 Dose: 5 ml Documented By: HELEN Trimethoprim/Sulfamethoxazole (Sulfameth/Trimet 800/160/20 Ml 20 Ml Oral.Susp) 20 ml PO MoWeFr@1800 [facility] Last Admin: 01/14/23 16:52 Dose: 20 ml Documented By: LISA Vancomycin HCl (Vancomycin Hcl Oral Solution 125 Mg/5 Ml Soln.Recon) 125 mg PO QID [facility] Last Admin: 01/15/23 08:59 Dose: 125 mg Documented By: HELEN Labs 01/11/23 05:09 01/15/23 06:45 Labs: Laboratory Results - last 24 hr 01/15/23 01/15/23 06:45 06:45 Estim Creat Clear Calc 106.0 Estimated GFR > 60 Random Vancomycin 20.0 Assessment and Plan (1) Sepsis: Status: Acute (2) Stage IV decubitus ulcer: Status: Acute (3) Osteomyelitis of pelvis: Status: Acute (4) C. 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 CT positive for colitis and likely osteomyelitis of pelvis. positive cdif Sepsis and acute metabolic encephalopathy 2/[address] of abdomen and pelvis showed moderately severe ascending colitis from rectum to mid ascending colon without obstruction, perforation, free air continue vancomycin p.o. Finish 01/17/23 Contact precautions diarrhea resolving imodium prn multiple DTI, unstageable, stage III, and stage IV pressure ulcers, chronic OM see wound care note for descriptions and recommendations Question of osteomyelitis of greater trochanters CT of abdomen pelvis found bilateral penetrating ulcers underlying the hips with with speech periosteal reaction to the right and left greater trochanters Patient will be covered by vancomycin IV, plan for 6 weeks iv vanc (end february 06, 2023) surgery appreciated no acute surgical intervention at this time Placement of picc w plan of 6 weeks IV Abx follow Vancomycin trough, 20 decrease Vanco to 1 gm q12 UTI in chronic Rubio catheter growing Pseudomonas likely colonizer, hold on treatment for now Diet Pt has G-tube in place Osmolite 1.5, Prosource, 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, 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 hypernatremia increased free fluid, monitor, improving Stage IV mantle cell lymphoma in remission 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 Quality Stroke Does the patient have a stroke diagnosis?: No VTE Prior VTE?: No VTE Risk Level:: Medical - moderate - high VTE Device Contraindication: Treatment Not Indicated VTE Drug Contraindication: N/A - Med Ordered
[2023-01-15 16:00] VITALS: BP 115/59; PULSE 86; RESP 14; TEMP 36.5; O2SAT 99
[2023-01-15] MEDS: Collagenase Clostridium Hist. 30 GM TUBE 1 APPL TOPICAL (16:33)
[2023-01-15] MEDS: Enoxaparin Sodium 40 MG/0.4 ML SYRINGE SUBCUT (18:12)
[2023-01-15 20:00] VITALS: BP 112/77; PULSE 95; RESP 14; TEMP 36.6; O2SAT 97
[2023-01-15] MEDS: Doxazosin Mesylate 1 MG TABLET G-TUBE (20:44)
[2023-01-15] MEDS: Melatonin 3 MG TABLET G-TUBE (20:44)
[2023-01-15] MEDS: Scopolamine 1.5 MG PATCH.TD.3 TRANSDERMA (21:04)
[2023-01-16 05:26] VITALS: BP 109/72; PULSE 93; RESP 16; TEMP 36.3; O2SAT 97
[2023-01-16 05:51] LABS: Hematocrit 30.1 % (42.0-52.0); Hemoglobin 9.2 g/dl (14.0-18.0); Mean Corpuscular HGB Conc 30.6 g/dl (31.0-36.0); Mean Corpuscular Hemoglobin 27.6 pg (27.0-33.0); Mean Corpuscular Volume 90.4 fL (80.0-98.0); Mean Platelet Volume 10.6 fL (9.4-12.4); Platelet Count 226 X10*3/uL (160-400); Red Blood Count 3.33 X10*6/uL (4.60-5.80); Red Cell Distribution Width 18.1 % (11.0-16.0); White Blood Count 4.3 X10*3/uL (4.8-10.8)
[2023-01-16 06:04] LABS: Creatinine Clr Calc Pharmacy 113.9; Estimated Glomerular Filt Rate > 60
[2023-01-16 06:06] LABS: Anion Gap 11 (12-20); Blood Urea Nitrogen 16 mg/dL (9-16); Calcium 8.3 mg/dL (8.4-10.2); Carbon Dioxide 28 mmol/L (22-29); Chloride 106 mmol/L (96-108); Creatinine Clr Calc Pharmacy 117.5; Estimated Glomerular Filt Rate > 60; Glucose Random 124 mg/dL (60-115); Potassium 4.1 mmol/L (3.3-5.1); Sodium 141 mmol/L (135-145)
[2023-01-16 07:28] VITALS: BP 97/68; PULSE 98; RESP 18; TEMP 36.9; O2SAT 94
[2023-01-16] MEDS: Midodrine HCl 2.5 MG TABLET 7.5 MG G-TUBE ×3 (08:44→16:27)
[2023-01-16] MEDS: Lacosamide Oral Solution 100 MG/10 ML SOLUTION 200 MG G-TUBE ×2 (08:44→20:48)
[2023-01-16] MEDS: vancomycin HCL Oral Solution 125 MG/5 ML SOLN.RECON PO ×4 (08:44→21:28)
[2023-01-16] MEDS: guaiFENesin 100 MG/5 ML LIQUID 10 ML G-TUBE ×3 (08:44→20:48)
[2023-01-16] MEDS: Glycopyrrolate 1 MG TABLET G-TUBE ×3 (08:45→20:49)
[2023-01-16] MEDS: Atovaquone 750 MG/5 ML ORAL.SUSP G-TUBE ×2 (08:45→20:48)
[2023-01-16] MEDS: Famotidine 20 MG TABLET G-TUBE ×2 (08:45→20:49)
[2023-01-16] MEDS: Chlorhexidine Gluc Oral Rinse 15 ML MOUTHWASH BUCCAL ×2 (08:45→20:48)
[2023-01-16] MEDS: Finasteride 5 MG TABLET PO (08:45)
[2023-01-16] MEDS: Baclofen 10 MG TABLET 5 MG G-TUBE ×3 (08:45→20:48)
[2023-01-16] MEDS: 0.9 % Sodium Chloride Flush 10 ML SYRINGE 5 ML IVFLUSH ×3 (08:51→21:26)
[2023-01-16 08:57] LABS: Vancomycin Random 17.1 mcg/mL (15-20)
--- NOTE | 2023-01-16 10:11 | P.PNIM_ITS ---
Subjective Subjective Date of Service: 01/16/23 Interval History: seen and evaluate looks comfortable diarrhea resolved, had regular BM yesterday Vancomycin levels of 17 Review of Systems Patient nonverbal Review of Systems: Yes all other systems are reviewed and are negative Physical Exam Vital Signs: Vital Signs: Last Vital Signs Temp 98.5 F 01/16/23 07:28 Pulse 98 01/16/23 07:28 Resp 18 01/16/23 07:28 BP 97/68 01/16/23 07:28 Pulse Ox 94 01/16/23 07:28 O2 Del Method Trach Collar 01/16/23 07:28 O2 Flow Rate 6.0 01/16/23 07:28 FiO2 28 01/16/23 07:28 Oxygen Flow Rate 8 01/02/23 11:18 BMI result Body Mass Index 20.5 Const: Other: Constitutional : Awake, not in distress Neck : Normal inspection, Supple Cardiovascular : RRR, no JVP, no lower extremity edema Respiratory : good bilateral air entry, no crackles Gastrointestinal: soft, lax, Normal bowel sounds, G-tube in place, no significant tenderness Skin : Warm, Dry, decubetus ulcers, deep on the side with large puncture, black discolored skin rectal area Neurological : Alert, No focal deficit but retracted Objective Data Active Medications Acetaminophen (Acetaminophen 325 Mg Tablet) 650 mg G-TUBE Q4H PRN PRN Reason: Fever Or Pain Last Admin: 01/09/23 16:38 Dose: 650 mg Documented By: TESS Atovaquone (Atovaquone 750 Mg/5 Ml Oral.Susp) 750 mg G-TUBE BID [facility] Last Admin: 01/16/23 08:45 Dose: 750 mg Documented By: TAVO Baclofen (Baclofen 10 Mg Tablet) 5 mg G-TUBE TID [facility] Last Admin: 01/16/23 08:45 Dose: 5 mg Documented By: TAVO Chlorhexidine Gluconate (Chlorhexidine Gluc Oral Rinse 15 Ml Mouthwash) 15 ml BUCCAL BID [facility] Last Admin: 01/16/23 08:45 Dose: 15 ml Documented By: TAVO Cholestyramine Resin (Cholestyramine (With Sugar) 4 Gm Powd.Pack) 4 gm G-TUBE DAILY [facility] Last Admin: 01/15/23 08:58 Dose: 4 gm Documented By: HELEN Collagenase (Collagenase Clostridium Hist. 30 Gm Tube) 1 appl TOPICAL DAILY [facility]; Protocol Last Admin: 01/15/23 16:33 Dose: 1 appl Documented By: LINDA Doxazosin Mesylate (Doxazosin Mesylate 1 Mg Tablet) 1 mg G-TUBE BEDTIME [facility]; Protocol Last Admin: 01/15/23 20:44 Dose: 1 mg Documented By: LINDA Enoxaparin Sodium (Enoxaparin Sodium 40 Mg/0.4 Ml Syringe) 40 mg SUBCUT Q24H [facility] Last Admin: 01/15/23 18:12 Dose: 40 mg Documented By: LINDA Famotidine (Famotidine 20 Mg Tablet) 20 mg G-TUBE BID [facility] Last Admin: 01/16/23 08:45 Dose: 20 mg Documented By: TAVO Finasteride (Finasteride 5 Mg Tablet) 5 mg PO DAILY [facility] Last Admin: 01/16/23 08:45 Dose: 5 mg Documented By: TAVO Glycopyrrolate (Glycopyrrolate 1 Mg Tablet) 1 mg G-TUBE TID [facility] Last Admin: 01/16/23 08:45 Dose: 1 mg Documented By: TAVO Guaifenesin (Guaifenesin 200 Mg/10 Ml 10 Ml Liquid) 10 ml G-TUBE Q4H PRN PRN Reason: Cough Guaifenesin (Guaifenesin 100 Mg/5 Ml Liquid) 10 ml G-TUBE TID [facility] Last Admin: 01/16/23 08:44 Dose: 10 ml Documented By: TAVO Vancomycin HCl 1,000 mg/ (Sodium Chloride) 270 mls @ 270 mls/hr IV Q12H [facility] Last Infusion: 01/15/23 23:49 Dose: 0 mls/hr Documented By: LINDA Lacosamide (Lacosamide Oral Solution 100 Mg/10 Ml Solution) 200 mg G-TUBE BID [facility] Last Admin: 01/16/23 08:44 Dose: 200 mg Documented By: TAVO Loperamide HCl (Loperamide Hcl Oral Liquid 2 Mg/15 Ml Liquid) 2 mg G-TUBE Q4H PRN PRN Reason: Diarrhea Last Admin: 01/06/23 22:15 Dose: 2 mg Documented By: JAMARCUSQC Loperamide HCl (Loperamide Hcl Oral Liquid 2 Mg/15 Ml Liquid) 2 mg G-TUBE Q6H PRN PRN Reason: Diarrhea Melatonin (Melatonin 3 Mg Tablet) 3 mg G-TUBE BEDTIME [facility] Last Admin: 01/15/23 20:44 Dose: 3 mg Documented By: LINDA Midodrine (Midodrine Hcl 2.5 Mg Tablet) 7.5 mg G-TUBE TIDAC [facility] Last Admin: 01/16/23 08:44 Dose: 7.5 mg Documented By: TAVO Ondansetron HCl (Ondansetron Hcl 4 Mg/2 Ml Vial) 4 mg IVPUSH Q8H PRN PRN Reason: Nausea and Vomiting Pharmacy Consult (Consult Rx Perform Med Rec) 1 each MISCELLANE ONCE PRN PRN Reason: Consult order Pharmacy Consult (Consult Rx Vancomycin Dosing) 1 each MISCELLANE DAILY PRN PRN Reason: Consult order Scopolamine (Scopolamine 1.5 Mg Patch.Td.3) 1.5 mg TRANSDERMA Q3D [facility] Last Admin: 01/15/23 21:04 Dose: 1.5 mg Documented By: LINDA Sodium Chloride (0.9 % Sodium Chloride Flush 3 Ml Syringe) 3 ml IVFLUSH QSHIFT [facility] Last Admin: 01/16/23 08:52 Dose: Not Given Documented By: TAVO Non-Admin Reason: pt has PICC line Sodium Chloride (0.9 % Sodium Chloride Flush 10 Ml Syringe) 5 ml IVFLUSH TID [facility] Last Admin: 01/16/23 08:51 Dose: 5 ml Documented By: TAVO Vancomycin HCl (Vancomycin Hcl Oral Solution 125 Mg/5 Ml Soln.Recon) 125 mg PO QID [facility] Last Admin: 01/16/23 08:44 Dose: 125 mg Documented By: TAVO Labs 01/16/23 05:14 01/16/23 05:14 Labs: Laboratory Results - last 24 hr 01/16/23 01/16/23 01/16/23 05:14 05:14 05:14 MCV 90.4 MCH 27.6 MCHC 30.6 L RDW 18.1 H Plt Count 226 MPV 10.6 Absolute Nucleated RBC 0.000 Nucleated RBC % (auto) 0.0 Anion Gap 11 L Estim Creat Clear Calc 113.9 117.5 Estimated GFR > 60 > 60 Random Glucose 124 H Calcium 8.3 L Random Vancomycin 01/16/23 08:31 MCV MCH MCHC RDW Plt Count MPV Absolute Nucleated RBC Nucleated RBC % (auto) Anion Gap Estim Creat Clear Calc Estimated GFR Random Glucose Calcium Random Vancomycin 17.1 Assessment and Plan (1) Sepsis: Status: Acute (2) Stage IV decubitus ulcer: Status: Acute (3) Osteomyelitis of pelvis: Status: Acute (4) C. 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 CT positive for colitis and likely osteomyelitis of pelvis. positive cdif Sepsis and acute metabolic encephalopathy 2/[address] of abdomen and pelvis showed moderately severe ascending colitis from rectum to mid ascending colon without obstruction, perforation, free air continue vancomycin p.o. Finish 01/17/23 Contact precautions diarrhea resolved, normal BM last night imodium prn multiple DTI, unstageable, stage III, and stage IV pressure ulcers, chronic OM see wound care note for descriptions and recommendations Question of osteomyelitis of greater trochanters CT of abdomen pelvis found bilateral penetrating ulcers underlying the hips with with speech periosteal reaction to the right and left greater trochanters Patient will be covered by vancomycin IV, plan for 6 weeks iv vanc (end february 06, 2023) surgery appreciated no acute surgical intervention at this time Placement of picc w plan of 6 weeks IV Abx follow Vancomycin trough, 17 decrease Vanco to 1 gm q12 UTI in chronic Rubio catheter growing Pseudomonas likely colonizer, hold on treatment for now Diet Pt has G-tube in place Osmolite 1.5, Prosource, 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, 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 follow up hypernatremia increased free fluid, monitor, improving Stage IV mantle cell lymphoma in remission 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 Quality Stroke Does the patient have a stroke diagnosis?: No VTE Prior VTE?: No VTE Risk Level:: Medical - moderate - high VTE Device Contraindication: Treatment Not Indicated VTE Drug Contraindication: N/A - Med Ordered
[2023-01-16] MEDS: Collagenase Clostridium Hist. 30 GM TUBE 1 APPL TOPICAL (10:37)
[2023-01-16] MEDS: Cholestyramine (With Sugar) 4 GM POWD.PACK G-TUBE (10:37)
[2023-01-16] MEDS: vancomycin HCL 1,000 MG in 0.9 % Sodium Chloride 250 ML 270 MG IV ×2 (11:46→23:01)
[2023-01-16 15:40] VITALS: BP 108/68; PULSE 90; RESP 18; TEMP 36.7; O2SAT 96
--- NOTE | 2023-01-16 17:10 | PC.NURSE ---
Assumed care at 0700- Continues on trach mask, tolerating well. Large amount of clear thin/thick sputum. Strong cough. Trach care and mouth care done. Tolerating tube feeds at goal with minimal residual. Water bolus every 4 hours and suppliments given.Rubio draining clear yellow urine, noted to be leaking earlier but has resolved. Incontinent of stool x2. On contact precautions. Receiving IV and po Vanco. Right single lumen PICC patent. Call zambrano at bedside, bed alarm on, safety maintained. See assessment for further documentation.
[2023-01-16] MEDS: Enoxaparin Sodium 40 MG/0.4 ML SYRINGE SUBCUT (17:21)
[2023-01-16 19:16] VITALS: BP 101/63; PULSE 68; RESP 18; TEMP 36.4; O2SAT 98
[2023-01-16] MEDS: Melatonin 3 MG TABLET G-TUBE (20:49)
[2023-01-16] MEDS: Doxazosin Mesylate 1 MG TABLET G-TUBE (20:49)
[2023-01-16] MEDS: 0.9 % Sodium Chloride Flush 3 ML SYRINGE IVFLUSH (20:49)
[2023-01-17 04:00] VITALS: BP 107/71; PULSE 105; RESP 16; TEMP 36.4
[2023-01-17 06:38] LABS: Creatinine Clr Calc Pharmacy 112.3; Estimated Glomerular Filt Rate > 60
[2023-01-17 08:00] VITALS: BP 107/71; PULSE 96; RESP 16; TEMP 36.3; O2SAT 99
[2023-01-17] MEDS: Baclofen 10 MG TABLET 5 MG G-TUBE (09:11)
[2023-01-17] MEDS: Famotidine 20 MG TABLET G-TUBE (09:11)
[2023-01-17] MEDS: 0.9 % Sodium Chloride Flush 10 ML SYRINGE 5 ML IVFLUSH (09:11)
[2023-01-17] MEDS: 0.9 % Sodium Chloride Flush 3 ML SYRINGE IVFLUSH (09:11)
[2023-01-17] MEDS: Midodrine HCl 2.5 MG TABLET 7.5 MG G-TUBE (09:12)
[2023-01-17] MEDS: Atovaquone 750 MG/5 ML ORAL.SUSP G-TUBE (09:12)
[2023-01-17] MEDS: Lacosamide Oral Solution 100 MG/10 ML SOLUTION 200 MG G-TUBE (09:12)
[2023-01-17] MEDS: Cholestyramine (With Sugar) 4 GM POWD.PACK G-TUBE (09:12)
[2023-01-17] MEDS: Finasteride 5 MG TABLET PO (09:12)
[2023-01-17] MEDS: Glycopyrrolate 1 MG TABLET G-TUBE (09:12)
[2023-01-17] MEDS: Chlorhexidine Gluc Oral Rinse 15 ML MOUTHWASH BUCCAL (09:13)
[2023-01-17] MEDS: vancomycin HCL Oral Solution 125 MG/5 ML SOLN.RECON PO (09:13)
[2023-01-17] MEDS: guaiFENesin 100 MG/5 ML LIQUID 10 ML G-TUBE (09:13)
--- NOTE | 2023-01-17 09:59 | MHC.CLN ---
F/U CONTINUES TO TOLERATE TUBE FEED AT MAX GOAL RATE: OSMOLITE 1.5 AT 70 ML PER HOUR X 18 HOURS MAX GOAL RATE; FREE WATER FLUSH 300 ML Q 4 HOURS; 30 ML PROSOURCE BID (120 KCALS, 30 G PROTEIN), 1 PACKET PARESH BID (160 KCALS, 5 G PROTEIN). PROVIDES 2170 TOTAL KCALS (35.5 KCALS/KG) 114 G PROTEIN (1.87 G/KG) 2760 ML FREE WATER FROM FORMULA AND FLUSH (45.2 ML/KG) PATIENT WITH MULTIPLE AREAS OF IMPAIRED SKIN. ADDITIONAL PROTEIN TO PROMOTE WOUND HEALING. DIARRHEA RESOLVED. CONTINUE CURRENT TUBE FEED, FLUSH, PROTEIN SUPPLEMENTS. FOLLOW FOR TUBE FEED TOLERANCE, RESIDUALS, LABS, WOUND HEALING.
[2023-01-17] MEDS: Collagenase Clostridium Hist. 30 GM TUBE 1 APPL TOPICAL (10:33)
[2023-01-17] MEDS: vancomycin HCL 1,000 MG in 0.9 % Sodium Chloride 250 ML 270 MG IV (10:34)
--- NOTE | 2023-01-17 10:34 | MHC.CM.PN ---
pt dcd today back to [facility] at 12:30 via amb son waS NOTIFIED OF DC BY [facility]
--- NOTE | 2023-01-17 11:06 | PM.DS ---
DS: Providers Provider Date of Service: 01/17/23 Date of admission: 01/02/23 17:58 Primary care physician: [facility] Consults: 01/02/23 18:03 Consult to General Surgery Routine Consulting Provider: [facility] General Surgeons Reason for consultation: Multiple stage IV decubitus ulcers on buttocks Consult to Infectious Diseases Routine Consulting Provider: [facility] Infectious Disease Reason for consultation: ? Osteomyelitis of greater trochanters DS: Diagnosis Discharge Diagnosis (1) Sepsis: Status: Acute (2) Stage IV decubitus ulcer: Status: Acute (3) Osteomyelitis of pelvis: Status: Acute (4) C. difficile colitis: Status: Acute (5) Acute hypernatremia: Status: Acute DS: Summary Hospital Course Hospital Course: The patient had prolonged hospital stay. for full details please return to EMR. 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 Pt is nonverbal and bed-bound at baseline, but is Armenian-understanding.? HPI primarily taken from chart and provider review.? Staff at facility apparently noted patient to have a fever up to 103 since last night, and patient was less responsive than normal this morning.? Patient has also been experiencing diarrhea lately.? When asked about pain, patient endorses abdominal pain by pointing to his periumbilical area. Pt unresponsive to endorsing or denying any other symptoms. In the ED was febrile at 101.2, tachycardic up to 121. Labs were significant for stable H&H of 9.5/31.2, BUN slightly above baseline at 37, alk-phos of 217.? Troponin negative.? Lactic acid WNL at 1.4.? Electrolytes normal.? UA positive for UTI.? Positive for C diff.? Stool panel pending.? Tested negative for influenza type a and B, RSV, COVID. CXR showed no acute cardiopulmonary process.? CT?of abdomen pelvis found bilateral penetrating ulcers underlying the hips with with speech periosteal reaction to the right and left greater trochanters possible of early osteomyelitis, and moderately severe ascending colitis from rectum to mid ascending colon without obstruction, perforation, free air. CT of chest found no lobular consolidation or effusion with minimal dependent consolidation at the left base likely atelectasis.?EKG demonstrated sinus tachycardia of 104 with no evidence of ST elevations or depressions. Pt was treated with ceftriaxone, acetaminophen, and IVF. Pt will be admitted to the hospital for treatment further evaluation of C diff colitis and possible osteomyelitis of the pelvis. Hospital course The patient was admitted for evaluation for sepsis and acute metabolic encephalopathy 2/[address] of abdomen and pelvis showed moderately severe ascending colitis from rectum to mid ascending colon without obstruction, perforation, free air. Treated with Vancomycin p.o. with good response as he finished 14 days of po vancomycin. diarrhea resolved, normal BM for almost a week. He has a history of multiple DTI, unstageable, stage III, and stage IV pressure ulcers, and what seems like chronic osteomyelitis. with likely of osteomyelitis of greater trochanters as CT of abdomen pelvis found bilateral penetrating ulcers underlying the hips with with periosteal reaction to the right and left greater trochanters. Evaluated by infectious disease specialist who recommended to treated with vancomycin IV, plan for 6 weeks iv vanc (end february 06, 2023). surgery team evaluated the wounds and felt no acute surgical intervention at this time. Dose adjusted to 1 gm q12 hours, goal trough 15-20. Seen by wound care who recommended as below Has chronic Rubio catheter with urine culture growing Pseudomonas. ID felt it is likely colonizer, hold on treatment for now given C.Diff infection. hypernatremia resolved with increased free fluid through G tube. Wound care recommendations: 1. Left heel, cleanse with normal saline or sea clens.? Santyl would be a good option to help break down the slough/fibrin if debridement is not an option, and cover with a dcd and destiny daily. If santyl is not available may continue with alginate ag cut to wound size to help with drainage control and cover with foam border every other day. 2. Right ankle, cleanse with sea clens or normal saline. Santyl could be used also here, but sharp debridement would be better. If santyl is used, cover with dcd and destiny wrap daily. And if not available cut alginate ag to wound size and cover with foam border every other day. 3. Right trochanter, irrigate wound well with normal saline or sea clens. Cut alginate ag into ribbon and lightly pack into wound. Cover with dcd or foam border daily to every other day depending on drainage. 4. Left ischium, cleanse with sea clens or normal saline. Cut alginate ag to wound size and cover with a dcd or foam border daily to every other day. With the location of this wound, it might need to be changed more often due to soilage. 5. Left trochanter, irrigate wound well with normal saline or sea clens. Cut alginate ag into ribbon and lightly pack into wound. Cover with dcd or foam border daily to every other day depending on drainage. 6. Left lateral 5th metatarsal- Stable eschar, may leave open to air and keep protected with boots while in bed. Time Spent with Patient Time attestation: Total time managing care of this patient today ____ minutes. Discharge coordination time: Greater than 30 minutes Quality: Safe Use of Opioids Does Pt have an Active Cancer Diagnosis on the Problem List?: No Quality: Stroke Does the patient have a stroke diagnosis?: No Physical Exam Vital Signs: Vital Signs: Last Vital Signs Temp 97.4 F 01/17/23 08:00 Pulse 96 01/17/23 08:00 Resp 16 01/17/23 08:00 BP 107/71 01/17/23 08:00 Pulse Ox 99 01/17/23 08:00 O2 Del Method Room Air 01/17/23 08:00 O2 Flow Rate 6 01/17/23 04:00 FiO2 28 01/17/23 04:00 Oxygen Flow Rate 8 01/02/23 11:18 BMI result Body Mass Index 20.5 Const: Other: Constitutional : Awake, not in distress Neck : Normal inspection, Supple Cardiovascular : RRR, no JVP, no lower extremity edema Respiratory : good bilateral air entry, no crackles Gastrointestinal: soft, lax, Normal bowel sounds, G-tube in place, no significant tenderness Skin : Warm, Dry, decubetus ulcers, deep on the side with large puncture, black discolored skin rectal area Neurological : Alert, contracted DS: Data Data Completed and Pending Labs on day of discharge: Laboratory Results - last 24 hr 01/17/23 05:05 Creatinine 0.68 Estim Creat Clear Calc 112.3 Estimated GFR > [address] scan - abdomen: Radiologist's impression: ITS Impressions Chest X-Ray 01/02/23 11:53 IMPRESSION: No acute cardiopulmonary process. Abdomen/Pelvis CT 01/02/23 15:17 IMPRESSION: There are penetrating ulcers bilaterally underlying the hips with wispy periosteal reaction of the right and left greater trochanters raising the possibility of early osteomyelitis. There is moderately severe ascending colitis from the rectum through the mid ascending colon. No bowel obstruction. No perforation or free air.. Chest CT 01/02/23 15:17 IMPRESSION: There are penetrating ulcers bilaterally underlying the hips with wispy periosteal reaction of the right and left greater trochanters raising the possibility of early osteomyelitis. There is moderately severe ascending colitis from the rectum through the mid ascending colon. No bowel obstruction. No perforation or free air.. Discharge Plan Discharge Anticipated Discharge Date/Time: 01/17/23 10:32 Patient Disposition: er [facility] Discharge Diagnosis: C.Diff colitis Osteomyelitis Referrals: [facility] [Other] - 1 Week Center,[facility] [Primary Care Provider] - 1 Week Discharge Medications: New vancomycin 1,000 mg recon soln 1 g IV Q12H 20 Days Qty: 40 0RF Continued glycopyrrolate 1 mg Tablet 1 mg feeding tube TID leucovorin calcium 25 mg Tablet 25 mg feeding tube BEDTIME doxazosin 1 mg Tablet 1 mg feeding tube BEDTIME midodrine 5 mg Tablet 7.5 mg feeding tube TID Rx Instructions: do not give last dose of day after 6PM or within 4 hrs of bedtime melatonin 3 mg Tablet 3 mg feeding tube BEDTIME famotidine 20 mg Tablet 20 mg feeding tube BID ascorbic acid (vitamin C) 250 mg Tablet 250 mg feeding tube DAILY baclofen 10 mg Tablet 5 mg feeding tube TID ferrous sulfate 300 mg (60 mg iron)/5 mL Liquid 300 mg feeding tube DAILY collagenase clostridium histo. 250 unit/gram Ointment 1 appl TOPICAL BID Rx Instructions: left heel, right malleolus, bilateral isschial areas, left lower buttock finasteride 5 mg Tablet 5 mg feeding tube DAILY atovaquone 750 mg/5 mL Suspension 750 mg feeding tube BID Rx Instructions: must administer with food, preferably a high-fat meal cholestyramine-aspartame [Cholestyramine Light] 4 gram Powder In Packet 4 g feeding tube DAILY Rx Instructions: administer w/meal; avoid other meds within 1hr before or 4-6hr after dose chlorhexidine gluconate 0.12 % Mouthwash 15 ml BUCCAL BID lacosamide 200 mg Tablet 200 mg feeding tube BID cholecalciferol (vitamin D3) 1,250 mcg (50,000 unit) Tablet 1,250 mcg feeding tube QMONTH Rx Instructions: MONTHLY ON DAY 15 OF THE MONTH acetaminophen 325 mg Tablet 650 mg feeding tube Q4H PRN (Reason: Fever Or Pain) acetaminophen 650 mg Suppository 650 mg IL Q4-6H PRN (Reason: fever or pain) albuterol sulfate 2.5 mg /3 mL (0.083 %) Solution For Nebulization 2.5 mg INHALATION Q4H PRN (Reason: Shortness Of Breath Or Wheezing) loperamide 2 mg Capsule 2 mg feeding tube Q4H PRN (Reason: Diarrhea) Rx Instructions: administer after each loose stool until symptoms controlled; do not exceed 8 mg per 24 hrs ondansetron HCl 2 mg/mL Solution 4 mg IM Q4H PRN (Reason: Nausea And Vomiting) ondansetron HCl 4 mg Tablet 4 mg feeding tube Q4H PRN (Reason: Nausea And Vomiting) sennosides-docusate sodium [Senna with Docusate Sodium] 8.6-50 mg Tablet 1 tab-cap PO BID tramadol 50 mg Tablet 25 mg PO Q4H PRN (Reason: Pain) zinc sulfate 50 mg zinc (220 mg) Tablet 50 mg feeding tube BEDTIME lorazepam 0.5 mg Tablet 0.5 mg feeding tube Q6H PRN (Reason: Anxiety) magnesium hydroxide [Milk of Magnesia] 400 mg/5 mL Suspension 30 ml feeding tube DAILY PRN (Reason: Constipation) bisacodyl 10 mg Suppository 10 mg IL DAILY PRN (Reason: Constipation) Fleet Enema 19-7 gram/118 mL Enema 118 ml IL DAILY PRN (Reason: Constipation) morphine 10 mg/5 mL Solution 5 mg feeding tube Q6H PRN (Reason: Severe Pain (Scale Score 7-10)) morphine 10 mg/5 mL Solution 5 mg feeding tube BID scopolamine base 1 mg over 3 days Patch 3 Day 1 patch TRANSDERMAL Q3D oxycodone 5 mg Tablet 5 mg feeding tube Q4H PRN (Reason: Moderate Pain (Scale Score 5-6)) guaifenesin 200 mg/5 mL Liquid 200 mg feeding tube Q4H PRN (Reason: Cough) lorazepam 2 mg/mL Solution See Rx Instructions .ROUTE .COMPLEX Rx Instructions: 2 mg intramuscularly as directed for seizure >5 minutes Discharge Orders: Discharge Order (Routine); Ordered 01/17/23 Ordered By: Patrick Pineda Diet: G-Tube Activity on Discharge: As tolerated Stand Alone Forms: Patient Portal Discharge page Care Plan Goals: Read below Health Concerns: Read below Plan of Treatment: Read below Assessment: Treated for C.Diff colitis with PO Vancomycin. Finished 2 weeks of treatment. No more diarrhea or abd pain. Evaluated by infectious disease for osteomyelitis of pelvis bone, recommended for IV antibiotics of Vancomycin for 6 weeks. Discharge Date/Time: 01/17/23 12:44
== END 2023-01-17 12:44 | DRG 720 ==
LOC: HO.ED 15:56 → HO.EDOVER 18:35 → HO.S3 18:37
PROVIDERS: Internal Medicine; Nurse Practitioner Family; Physician Assistant; Admitting Provider Student in an Organized Health Care Education/Training Program; Emergency Provider Emergency Medicine Emergency Medical Services; PCP Pediatrics; Visit Provider Student in an Organized Health Care Education/Training Program
DX: A41.9 Sepsis, unspecified organism (principal); G93.41 Metabolic encephalopathy; J96.10 Chronic respiratory failure, unspecified whether with hypoxia or hypercapnia; L89.214 Pressure ulcer of right hip, stage 4; B58.9 Toxoplasmosis, unspecified; L89.224 Pressure ulcer of left hip, stage 4; L89.314 Pressure ulcer of right buttock, stage 4; L89.324 Pressure ulcer of left buttock, stage 4; A04.72 Enterocolitis due to Clostridium difficile, not specified as recurrent; I95.9 Hypotension, unspecified; L89.516 Pressure-induced deep tissue damage of right ankle; N40.1 Benign prostatic hyperplasia with lower urinary tract symptoms; G40.909 Epilepsy, unspecified, not intractable, without status epilepticus; C83.10 Mantle cell lymphoma, unspecified site; K21.9 Gastro-esophageal reflux disease without esophagitis; M62.49 Contracture of muscle, multiple sites; E87.0 Hyperosmolality and hypernatremia; D84.821 Immunodeficiency due to drugs; G82.20 Paraplegia, unspecified; Z79.60 Long term (current) use of unspecified immunomodulators and immunosuppressants; M86.652 Other chronic osteomyelitis, left thigh; M86.651 Other chronic osteomyelitis, right thigh; L89.620 Pressure ulcer of left heel, unstageable; R33.8 Other retention of urine; Z74.01 Bed confinement status; Z96.0 Presence of urogenital implants; Z93.0 Tracheostomy status; Z20.822 Contact with and (suspected) exposure to COVID-19; Z79.899 Other long term (current) drug therapy
CPT/HCPCS: 0241U; 36415; 36573; 71045; 71260; 74177; 80048; 80076; 80202; 81001; 82565; 82947; 83605; 83735; 84484; 85025; 85027; 85610; 85652; 86140; 86359; 86360; 87040; 87070; 87077; 87086; 87088; 87186; 87205; 87324; 87493; 87507; 93005; 99285; C1751; C1758; J0696; J1650; J2543; J3370; J3371; Q9967

== ENCOUNTER 2023-01-31 04:51 | Inpatient (IN) | payer MEDICAID, SELFPAY ==
[2023-01-31] VITALS (10 sets, daily range): BP systolic 98–142; BP diastolic 61–84; PULSE 91–129; RESP 13–25; TEMP 36.6–37.3; O2SAT 70–98; BMI 19.2
--- NOTE | ~2023-01-31 | XR_ITS ---
EXAMINATION: XR CHEST CLINICAL INFORMATION: Hypoxia COMPARISON: 01/02/2023 TECHNIQUE: Frontal view of the chest was obtained. FINDINGS: Streaky opacity in the left lower lobe, and to lesser extent right lower lobe. No pleural effusion or pneumothorax. Stable cardiac mediastinal silhouette. Right upper extremity PICC terminates at the superior cavoatrial junction. Tracheostomy tube stably positioned. XR/XR chest 1V IMPRESSION: Bilateral lower lobe streaky opacities, left greater than right, suspicious for infiltrate at least on the left possibly related to aspiration.
--- NOTE | ~2023-01-31 | XR_ITS ---
EXAMINATION: XR CHEST CLINICAL INFORMATION: Reason for Exam tracheostomy COMPARISON: Chest radiograph 02/01/2023 TECHNIQUE: One view of the chest FINDINGS: Lines and tubes: EKG leads overlie the patient. Tracheostomy tube is midline. Right upper extremity PICC catheter tip terminates overlying the cavoatrial junction. Clear lungs. No pleural effusion. No pneumothorax. Unchanged cardiomediastinal silhouette. Chronic appearing posttraumatic deformity of the left humeral head. XR/XR chest 1V IMPRESSION: * Clear lungs.
--- NOTE | ~2023-01-31 | XR_ITS ---
EXAMINATION: XR CHEST CLINICAL INFORMATION: Hypoxia COMPARISON: Previous chest x-ray most recent from yesterday TECHNIQUE: Frontal view of the chest was obtained. FINDINGS: The cardiac and mediastinal contours are stable. Tracheostomy tube tip 5 cm above the edmund. Right upper extremity PICC line with tip projecting over the SVC Atelectasis or small infiltrate at the left lung base not appreciably changed from yesterday's exam. No pleural effusion or pneumothorax. Normal bony structures. XR/XR chest 1V IMPRESSION: Atelectasis or small infiltrate at the left lung base similar to yesterday's exam.
--- NOTE | 2023-01-31 05:19 | PC.NURSE ---
Copius amount of thick brown secretions removed from trach, suction performed. O2 Sats increased to 91
--- NOTE | 2023-01-31 06:52 | ED.GENADULT ---
HPI - General Adult General Chief complaint: Upper Respiratory Symptoms Stated complaint: dark coffee ground secretions Time Seen by Provider: 01/31/23 06:30 Source: EMS and old records reviewed Mode of arrival: EMS Limitations: physical limitation History of Present Illness HPI narrative: 52 yo male FULL CODE with history of PHOTOLITHOGRAPHER Toxoplasmosis, seizures, s/p trach & PEG, hx sepsis w/ acute hypoxic respiratory failure, hx recurrent VAP, anemia, CKD, mantle cell lymphoma, urinary retention w/ chronic Rubio, multiple unstageable wounds with recent admission to 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 He treated to the low 80s after being suctioned. His FiO2 was increased to 60% trach mask, with improvement in saturations to the low 90s and he was brought to the ER for further evaluation. On arrival to the emergency department patient was hypoxic to 70%, tachycardic to the 120s. He was afebrile. He was placed on 10 L humidified O2 via trach mask. Copious amounts of dark brown secretions were suctioned from his lungs. He is nonverbal at baseline and unable to provide history. MD complaint: Acute hypoxia with brown secretions Onset (ago): hour(s) (4) Treatments prior to arrival: other (oxygen) Related Data Home Medications Medication Instructions Recorded Confirmed acetaminophen 325 mg tablet 650 mg feeding tube Q4H PRN Fever 01/02/23 01/31/23 Or Pain acetaminophen 650 mg rectal 650 mg WA Q4-6H PRN fever or pain 01/02/23 01/31/23 suppository albuterol sulfate 2.5 mg/3 mL 2.5 mg inhalation Q4H PRN 01/02/23 01/31/23 (0.083 %) solution for nebulization Shortness Of Breath Or Wheezing ascorbic acid (vitamin C) 250 mg 250 mg feeding tube DAILY 01/02/23 01/31/23 tablet atovaquone 750 mg/5 mL oral 750 mg feeding tube BID 01/02/23 01/31/23 suspension baclofen 10 mg tablet 5 mg feeding tube TID 01/02/23 01/31/23 bisacodyl 10 mg rectal suppository 10 mg WA DAILY PRN Constipation 01/02/23 01/31/23 chlorhexidine gluconate 0.12 % 15 ml buccal BID 01/02/23 01/31/23 mouthwash cholecalciferol (vitamin D3) 1,250 1,250 mcg feeding tube QMONTH 01/02/23 01/31/23 mcg (50,000 unit) tablet cholestyramine-aspartame 4 gram 4 g feeding tube DAILY 01/02/23 01/31/23 oral powder for susp in a packet (Cholestyramine Light) collagenase clostridium histo. 250 1 appl topical BID 01/02/23 01/31/23 unit/gram topical ointment doxazosin 1 mg tablet 1 mg feeding tube BEDTIME 01/02/23 01/31/23 famotidine 20 mg tablet 20 mg feeding tube BID 01/02/23 01/31/23 ferrous sulfate 300 mg (60 mg 300 mg feeding tube DAILY 01/02/23 01/31/23 iron)/5 mL oral liquid finasteride 5 mg tablet 5 mg feeding tube DAILY 01/02/23 01/31/23 glycopyrrolate 1 mg tablet 1 mg feeding tube TID 01/02/23 01/31/23 guaifenesin 200 mg/5 mL oral liquid 200 mg feeding tube Q4H PRN Cough 01/02/23 01/31/23 lacosamide 200 mg tablet 200 mg feeding tube BID 01/02/23 01/31/23 leucovorin calcium 25 mg tablet 25 mg feeding tube BEDTIME 01/02/23 01/31/23 loperamide 2 mg capsule 2 mg feeding tube Q4H PRN Diarrhea 01/02/23 01/31/23 lorazepam 0.5 mg tablet 0.5 mg feeding tube Q6H PRN Anxiety 01/02/23 01/31/23 lorazepam 2 mg/mL injection See Rx Instructions .Route .COMPLEX 01/02/23 01/31/23 solution magnesium hydroxide 400 mg/5 mL 30 ml feeding tube DAILY PRN 01/02/23 01/31/23 oral suspension (Milk of Magnesia) Constipation melatonin 3 mg tablet 3 mg feeding tube BEDTIME 01/02/23 01/31/23 midodrine 5 mg tablet 7.5 mg feeding tube TID 01/02/23 01/31/23 morphine 10 mg/5 mL oral solution 5 mg feeding tube BID 01/02/23 01/31/23 ondansetron HCl 2 mg/mL 4 mg IM Q4H PRN Nausea And Vomiting 01/02/23 01/31/23 intravenous solution ondansetron HCl 4 mg tablet 4 mg feeding tube Q4H PRN Nausea 01/02/23 01/31/23 And Vomiting oxycodone 5 mg tablet 5 mg feeding tube Q4H PRN Moderate 01/02/23 01/31/23 Pain (Scale Score 5-6) scopolamine base 1 mg over 3 days 1 patch transdermal Q3D 01/02/23 01/31/23 transdermal patch sennosides 8.6 mg-docusate sodium 1 tab-cap PO BID 01/02/23 01/31/23 50 mg tablet (Senna with Docusate Sodium) sodium phosphates 19 gram-7 118 ml WA DAILY PRN Constipation 01/02/23 01/31/23 gram/118 mL enema (Fleet Enema) tramadol 50 mg tablet 50 mg PO Q4H PRN Pain 01/02/23 01/31/23 zinc sulfate 50 mg zinc (220 mg) 50 mg feeding tube BEDTIME 01/02/23 01/31/23 tablet Saccharomyces boulardii 250 mg 250 mg PO BID 01/31/23 01/31/23 capsule (Florastor) multivitamin 1 tab PO DAILY 01/31/23 01/31/23 pyrimethamine 25 mg tablet 25 mg PO DAILY 01/31/23 01/31/23 Previous Rx's Medication Instructions Recorded vancomycin 1,000 mg intravenous 1 g IV Q12H 20 days #40 ea 01/17/23 injection Allergies Allergy/AdvReac Type Severity Reaction Status Date / Time cyclobenzaprine [Flexeril] Allergy Unknown Palpitation Verified 09/22/20 15:41 s Review of Systems Review of Systems: Yes Unobtainable due to mental condition [facility] Past Medical History Medical History Appendicitis Chronic pain PHOTOLITHOGRAPHER lymphoma Depression Encephalopathy H/O: RCT (rotator cuff tear) Kidney stone Mantle cell lymphoma Rectal bleeding Toxoplasmosis Surgical History History of appendectomy Family History Family History Mother COPD (chronic obstructive pulmonary disease) Sister Colon cancer Social History Social History Household Members: None Housing: Assisted Do you presently have visiting nurse or other home services: No Unable to assess alcohol history related to: Unable to respond Alcohol intake: unknown Patient Tobacco Use Status: Never used Tobacco Smoked in Last 30 Days: No Use of substances other than those prescribed or required for medical reasons: Unable to respond Substance Use Type: Marijuana Advance Directives: No Advance Directives Information Provided: No service: No Current occupational status: unemployed Physical Exam ED Vital Signs: Vital Signs - 24 hr 01/31/23 04:59 01/31/23 05:26 01/31/23 06:00 Temperature 98.6 F Pulse Rate 120 H 129 H Respiratory Rate 24 H 13 Blood Pressure 98/64 106/65 Pulse Oximetry 70 L 87 L 96 Oxygen Delivery Method Trach Collar Trach Collar Trach Collar Oxygen Flow Rate 10 Fraction of Inspired Oxygen 50 01/31/23 08:16 01/31/23 10:49 Temperature 97.9 F 98.6 F Pulse Rate 109 H 102 H Respiratory Rate 22 H 23 H Blood Pressure 106/69 123/82 Pulse Oximetry 96 93 Oxygen Delivery Method Trach Collar Nasal Cannula Trach Collar Oxygen Flow Rate Fraction of Inspired Oxygen BMI result Body Mass Index 19.2 Appearance: Alert, awake, diaphoretic, no distress Head: normocephalic, atraumatic. Eyes: Pupils equal, round and reactive to light. ENT: Pharynx normal. No tonsillar swelling or exudate. Neck: Normal inspection. Neck supple. trach inplace with brown secretions present CVS: Normal heart rate and rhythm. Pulses normal. Respiratory: No respiratory distress. Strong cough. Breath sounds coarse but no wheezing or rhonchi, RR low 20s, no accessory muscle use Abdomen: Soft and nontender. +BS x4 Skin: Skin warm and dry. Normal skin color. Normal skin turgor. No rashes. Extremities: Contracted. No lower extremity edema. No joint swelling. Neuro/psych: awake and alert, makes eye contact and tracks. nonverbal Medications Administered Discontinued Medications Generic Name Dose Route Start Last Admin Trade Name Freq PRN Reason Stop Dose Admin Piperacillin Sod/Tazobactam 100 mls @ 200 mls/hr 01/31/23 06:55 01/31/23 09:39 Sod 4.5 gm/ Sodium Chloride IV 01/31/23 07:24 Infused ONCE ONE Infusion Sodium Chloride 1,000 mls @ 999 mls/hr 01/31/23 07:15 01/31/23 09:59 Ns IVCONT 01/31/23 08:15 Infused .Q1H1M RACHELL Infusion Sodium Chloride 1,000 mls @ 999 mls/hr 01/31/23 08:45 01/31/23 09:59 Ns IVCONT 01/31/23 09:45 999 mls/hr .Q1H1M RACHELL Administration Pantoprazole Sodium 40 mg 01/31/23 08:05 01/31/23 08:23 Pantoprazole Sodium 40 Mg/10 Ml Vial IVPUSH 01/31/23 08:06 40 mg ONCE ONE Administration Medical Decision Making Medical Decision Making MDM Narrative: 52 yo male FULL CODE with history of PHOTOLITHOGRAPHER Toxoplasmosis, seizures, s/p trach & PEG, hx sepsis w/ acute hypoxic respiratory failure, hx recurrent VAP, anemia, CKD, mantle cell lymphoma, urinary retention w/ chronic Rubio, multiple unstageable wounds with recent admission to 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 Requiring 10L trach mask on arrival with initial hypoxic to 70%. He is not in any significant respiratory distress. Dark secretions from the tracheostomy. Possible coffee-ground secretions, heme +. Concern could be aspiration of UGIB. Does not appear to be tube feeding aspiration. IV PPI given along with IV zosyn for concern of aspiration PNA. He is already on vanco for osteo. He is meeting sepsis criteria. Lactic 3.4 --> 2L IVF ordered. Blood pressure has been stable. Of note he does have chronic hypotension and is on midodrine. No evidence of septic shock at this time. H/H stable. HR improving with fluids. Respiratory sent Leukens. O2 requirements have been stable in the ER, 50% humdified 10L O2. Will plan for admission. Differential Diagnosis Differential Diagnoses: The differential diagnosis associated with the presentation includes Acute hypoxic respiratory failure due to aspiration, upper GI bleed, Hcap, sepsis, severe sepsis Admission/Observation Consideration of admission/observation: Escalation of care including admission/observation considered Acute hypoxic respiratory failure, septic Consult Healthcare Provider Management of the patient was discussed with: Hospitalist Lab Data MDM Lab Attestation statement: I reviewed the patient's lab results. Leukocytosis, stable anemia, normal renal function, elevated bicarb 01/31/23 08:03 01/31/23 08:03 Labs: Lab Results 01/31/23 01/31/23 01/31/23 Range/Units 08:03 08:03 08:03 WBC 12.1 H (4.8-10.8) X10*3/uL RBC 3.86 L (4.60-5.80) X10*6/uL Hgb 10.6 L (14.0-18.0) g/dl Hct 35.0 L (42.0-52.0) % MCV 90.7 (80.0-98.0) fL MCH 27.5 (27.0-33.0) pg MCHC 30.3 L (31.0-36.0) g/dl RDW 19.2 H (11.0-16.0) % Plt Count 177 (160-400) X10*3/uL MPV 10.8 (9.4-12.4) fL Immature Gran % (Auto) 0.3 (0.0-0.4) % Neut % (Auto) 86.3 H (45-73) % Lymph % (Auto) 4.5 L (20-40) % [place] % (Auto) 8.7 (2-11) % Eos % (Auto) 0.0 (0-4) % Baso % (Auto) 0.2 (0-2) % Lymph # (Auto) 0.5 L (1.2-4.9) X10*3/uL [place] # (Auto) 1.1 (0.1-1.2) X10*3/uL Eos # (Auto) 0.0 (0.0-0.4) X10*3/uL Baso # (Auto) 0.0 (0.0-0.2) X10*3/uL Abs Immat Gran (auto) 0.04 H (0.00-0.03) X10*3/uL Absolute Neuts (auto) 10.5 H (2.0-8.3) x10*3/uL Absolute Nucleated RBC 0.000 (0.0-0.012) X10*3/uL Nucleated RBC % (auto) 0.0 (0.0-0.2) /100WBC PT (10.0-13.1) SEC INR (0.9-1.1) APTT (26.0-36.4) SEC VBG pH (7.32-7.43) VBG pCO2 mmHg VBG pO2 mmHg VBG HCO3 (22-26) mmol/L VBG O2 Saturation % VBG Base Excess mmol/L Sodium 145 (135-145) mmol/L Potassium 4.1 (3.3-5.1) mmol/L Chloride 99 (96-108) mmol/L Carbon Dioxide 32 H (22-29) mmol/L Anion Gap 18 (12-20) BUN 27 H (9-16) mg/dL Creatinine 1.01 (0.5-1.4) mg/dL Estim Creat Clear Calc 70.7 Estimated GFR > 60 Random Glucose 137 H (60-115) mg/dL Lactic Acid (0.5-2.0) mmol/L Calcium 9.7 D (8.4-10.2) mg/dL Magnesium 2.0 (1.6-2.6) mg/dL Total Bilirubin 0.6 (0.0-1.0) mg/dL Direct Bilirubin 0.2 (0.0-0.5) mg/dL AST 15 (5-37) U/L ALT 19 (0-40) U/L Alkaline Phosphatase 150 H (39-117) U/L B-Natriuretic Peptide 22 (<100) pg/mL Total Protein 7.0 (6.5-8.0) g/dL Albumin 3.5 (3.5-5.0) g/dL Procalcitonin 0.23 ng/mL Stool Occult Blood (NEGATIVE) C. difficile Tox B Gene (Negative) 01/31/23 01/31/23 01/31/23 Range/Units 08:04 08:04 08:10 WBC (4.8-10.8) X10*3/uL RBC (4.60-5.80) X10*6/uL Hgb (14.0-18.0) g/dl Hct (42.0-52.0) % MCV (80.0-98.0) fL MCH (27.0-33.0) pg MCHC (31.0-36.0) g/dl RDW (11.0-16.0) % Plt Count (160-400) X10*3/uL MPV (9.4-12.4) fL Immature Gran % (Auto) (0.0-0.4) % Neut % (Auto) (45-73) % Lymph % (Auto) (20-40) % [place] % (Auto) (2-11) % Eos % (Auto) (0-4) % Baso % (Auto) (0-2) % Lymph # (Auto) (1.2-4.9) X10*3/uL [place] # (Auto) (0.1-1.2) X10*3/uL Eos # (Auto) (0.0-0.4) X10*3/uL Baso # (Auto) (0.0-0.2) X10*3/uL Abs Immat Gran (auto) (0.00-0.03) X10*3/uL Absolute Neuts (auto) (2.0-8.3) x10*3/uL Absolute Nucleated RBC (0.0-0.012) X10*3/uL Nucleated RBC % (auto) (0.0-0.2) /100WBC PT 12.7 (10.0-13.1) SEC INR 1.1 (0.9-1.1) APTT 32.4 (26.0-36.4) SEC VBG pH (7.32-7.43) VBG pCO2 mmHg VBG pO2 mmHg VBG HCO3 (22-26) mmol/L VBG O2 Saturation % VBG Base Excess mmol/L Sodium (135-145) mmol/L Potassium (3.3-5.1) mmol/L Chloride (96-108) mmol/L Carbon Dioxide (22-29) mmol/L Anion Gap (12-20) BUN (9-16) mg/dL Creatinine (0.5-1.4) mg/dL Estim Creat Clear Calc Estimated GFR Random Glucose (60-115) mg/dL Lactic Acid 3.4 H* (0.5-2.0) mmol/L Calcium (8.4-10.2) mg/dL Magnesium (1.6-2.6) mg/dL Total Bilirubin (0.0-1.0) mg/dL Direct Bilirubin (0.0-0.5) mg/dL AST (5-37) U/L ALT (0-40) U/L Alkaline Phosphatase (39-117) U/L B-Natriuretic Peptide (<100) pg/mL Total Protein (6.5-8.0) g/dL Albumin (3.5-5.0) g/dL Procalcitonin ng/mL Stool Occult Blood POSITIVE (NEGATIVE) C. difficile Tox B Gene (Negative) 01/31/23 01/31/23 Range/Units 08:10 09:26 WBC (4.8-10.8) X10*3/uL RBC (4.60-5.80) X10*6/uL Hgb (14.0-18.0) g/dl Hct (42.0-52.0) % MCV (80.0-98.0) fL MCH (27.0-33.0) pg MCHC (31.0-36.0) g/dl RDW (11.0-16.0) % Plt Count (160-400) X10*3/uL MPV (9.4-12.4) fL Immature Gran % (Auto) (0.0-0.4) % Neut % (Auto) (45-73) % Lymph % (Auto) (20-40) % [place] % (Auto) (2-11) % Eos % (Auto) (0-4) % Baso % (Auto) (0-2) % Lymph # (Auto) (1.2-4.9) X10*3/uL [place] # (Auto) (0.1-1.2) X10*3/uL Eos # (Auto) (0.0-0.4) X10*3/uL Baso # (Auto) (0.0-0.2) X10*3/uL Abs Immat Gran (auto) (0.00-0.03) X10*3/uL Absolute Neuts (auto) (2.0-8.3) x10*3/uL Absolute Nucleated RBC (0.0-0.012) X10*3/uL Nucleated RBC % (auto) (0.0-0.2) /100WBC PT (10.0-13.1) SEC INR (0.9-1.1) APTT (26.0-36.4) SEC VBG pH 7.52 H (7.32-7.43) VBG pCO2 40 mmHg VBG pO2 33 mmHg VBG HCO3 33 H (22-26) mmol/L VBG O2 Saturation 47.0 % VBG Base Excess 9.6 mmol/L Sodium (135-145) mmol/L Potassium (3.3-5.1) mmol/L Chloride (96-108) mmol/L Carbon Dioxide (22-29) mmol/L Anion Gap (12-20) BUN (9-16) mg/dL Creatinine (0.5-1.4) mg/dL Estim Creat Clear Calc Estimated GFR Random Glucose (60-115) mg/dL Lactic Acid (0.5-2.0) mmol/L Calcium (8.4-10.2) mg/dL Magnesium (1.6-2.6) mg/dL Total Bilirubin (0.0-1.0) mg/dL Direct Bilirubin (0.0-0.5) mg/dL AST (5-37) U/L ALT (0-40) U/L Alkaline Phosphatase (39-117) U/L B-Natriuretic Peptide (<100) pg/mL Total Protein (6.5-8.0) g/dL Albumin (3.5-5.0) g/dL Procalcitonin ng/mL Stool Occult Blood (NEGATIVE) C. difficile Tox B Gene NEGATIVE (Negative) ABG Data Attestation ABG: I personally reviewed and interpreted this ABG as follows: Interpretation: primary resp alkalosis with mild underlying respiratory acidosis Independent Interpretation I performed an independent interpretation of an: EKG and Plain X-Ray Interpretation: ekg with sinus tachycardia, HR 110 bpm, WA interval normal, no ST segment elevations or depression cxr w/ new L>R streaky opacities, no effusion, no lobar infiltrate. agree w/ radiology read Radiology Impression Discussion of test interpretation with radiology: I have reviewed the radiologist's reading. Radiologist Impression: XR/XR chest 1V IMPRESSION: Bilateral lower lobe streaky opacities, left greater than right, suspicious for infiltrate at least on the left possibly related to aspiration. Independent Historian Clinical information obtained from an independent historian. History obtained from or confirmed by: EMS External Record Review External record reviewed: Inpatient record, Outpatient record, Prior outpatient labs and Prior outpatient radiology Tests considered The following testing was considered but not selected: CT chest considered Prescription Management I considered prescription management with: Antibiotic Chronic Conditions Patient?s care impacted by: Other (PHOTOLITHOGRAPHER toxoplasmosis, s/p trach and PEG, recurrent PNA) Social Determinants Patient?s care significantly limited by Social Determinants of Health including: Other Social Determinant of Health Critical Care Time Critical Care Time Critical Care Time: Yes Total Critical Care Time: 48 Attestation: I have personally provided critical care time exclusive of time spent on separately billable procedures. Time includes review of lab data, radiology results, discussion with consultants, and monitoring for potential decompensation. Intervention performed as documented. Discharge Plan Discharge Clinical Impression: Acute and chronic respiratory failure with hypoxia, Aspiration pneumonia, Sepsis Patient Disposition: Admitted As Inpatient
--- NOTE | 2023-01-31 07:07 | PC.RT ---
sx pt via trach for large amount brown secretionsl practioner ordered sputum sample.
--- NOTE | 2023-01-31 07:26 | ECG_ITS ---
Test Reason : sob Blood Pressure : / mmHG Vent. Rate : 110 BPM Atrial Rate : 110 BPM P-R Int : 134 ms QRS Dur : 072 ms QT Int : 332 ms P-R-T Axes : 080 051 087 degrees QTc Int : 449 ms Sinus tachycardia Otherwise normal ECG When compared with ECG of 02-JAN-2023 11:58, Nonspecific T wave abnormality now evident in Lateral leads Referred By: Karina Rivera Electronically Signed By:NOAH SILVA
--- NOTE | 2023-01-31 08:00 | PC.NURSE ---
PT IS ALERT, HAS A FUNCTIONING TRACH. LUNGS - SPENSER UPPER - CTA, BILL LOWER LUNGS - DIMINSHED. DEEP SUCTIONED AND EXPECTORATED LARGE OF BROWN SPUTUM, CULTURE SENT. PT IS CONTRACTED.PT HAS A G-TUBE IN ABD. PT ALSO HAS NUMEROUS WOUNDS TO GEN BODY. PICTURES WERE TAKEN. PT HAS A RED THAT IS PATENT AND DRAINING YELLOW URINE. PT HAS A PICC TO R UPPER FOREARM. PT HAD A LARGE DARK STOOL, CULTURE SENT. AWARE.
[2023-01-31 08:09] LABS: MANUAL DIFF FLAG NO
--- NOTE | 2023-01-31 08:10 | PC.NURSE ---
pt has a scopolamine patch to the left side of his neck - noted.
[2023-01-31 08:15] LABS: Basophils Percent Auto 0.2 % (0-2); Hemoglobin 10.6 g/dl (14.0-18.0); Imm Gran Abs Auto 0.04 X10*3/uL (0.00-0.03); Imm Gran Pct Auto 0.3 % (0.0-0.4); Lymphocytes Absolute Auto 0.5 X10*3/uL (1.2-4.9); Lymphocytes Percent Auto 4.5 % (20-40); Mean Corpuscular HGB Conc 30.3 g/dl (31.0-36.0); Mean Corpuscular Hemoglobin 27.5 pg (27.0-33.0); Mean Corpuscular Volume 90.7 fL (80.0-98.0); Mean Platelet Volume 10.8 fL (9.4-12.4); Monocytes Absolute Auto 1.1 X10*3/uL (0.1-1.2); Monocytes Percent Auto 8.7 % (2-11); Neutrophils Absolute Auto 10.5 x10*3/uL (2.0-8.3); Neutrophils Percent Auto 86.3 % (45-73); Platelet Count 177 X10*3/uL (160-400); Red Blood Count 3.86 X10*6/uL (4.60-5.80); Red Cell Distribution Width 19.2 % (11.0-16.0); White Blood Count 12.1 X10*3/uL (4.8-10.8)
[2023-01-31 08:22] LABS: INTERNATIONAL NORM RATIO 1.1 (0.9-1.1); Prothrombin Time 12.7 SEC (10.0-13.1)
[2023-01-31] MEDS: Pantoprazole Sodium 40 MG/10 ML VIAL IVPUSH (08:23)
[2023-01-31] MEDS: 0.9 % Sodium Chloride 1,000 ML 999 ML IVCONT ×2 (08:23→09:59)
[2023-01-31] MEDS: Piperacillin Sodium/Tazobactam 4.5 GM in 0.9 % Sodium Chloride 100 ML IV (08:24)
[2023-01-31 08:25] LABS: Partial Thromboplastin Time 32.4 SEC (26.0-36.4)
[2023-01-31 08:29] LABS: Lactic Acid 3.4 mmol/L (0.5-2.0)
[2023-01-31 08:31] LABS: B Type Natriuretic Peptide 22 pg/mL (<100)
[2023-01-31 08:32] LABS: Alanine Aminotransferase 19 U/L (0-40); Albumin Level 3.5 g/dL (3.5-5.0); Alkaline Phosphatase 150 U/L (39-117); Anion Gap 18 (12-20); Aspartate Amino Transferase 15 U/L (5-37); Bilirubin Direct 0.2 mg/dL (0.0-0.5); Bilirubin Total 0.6 mg/dL (0.0-1.0); Blood Urea Nitrogen 27 mg/dL (9-16); Calcium 9.7 mg/dL (8.4-10.2); Carbon Dioxide 32 mmol/L (22-29); Chloride 99 mmol/L (96-108); Creatinine Clr Calc Pharmacy 70.7; Estimated Glomerular Filt Rate > 60; Glucose Random 137 mg/dL (60-115); Potassium 4.1 mmol/L (3.3-5.1); Sodium 145 mmol/L (135-145)
[2023-01-31 08:33] LABS: OBS Int Ctl Valid YES; OBS1 POSITIVE (NEGATIVE)
[2023-01-31 08:46] LABS: Procalcitonin 0.23 ng/mL
--- NOTE | 2023-01-31 09:26 | PC.NURSE ---
O2 SAT DECREASED TO 84%. THIS RN SUCTION PT FOR SMALL AMT OF BROWN SPUTUM. 02 SAT INCREASED TO 86%.. PT 02 SAT DECREASED AGAIN TO 79% AND HE WAS SUCTION FOR SMALL AMT OF BROWN FOAMY SPUTUM. AWARE.
--- NOTE | 2023-01-31 09:34 | PC.NURSE ---
02 INCREASED TO 60%. PT02 SAT IS 92-93% MD AWARE.
[2023-01-31 09:43] LABS: Venous Blood Gas Refer to POC result
[2023-01-31 09:44] LABS: VBG Base Excess 9.6 mmol/L; VBG HCO3 33 mmol/L (22-26); VBG pCO2 40 mmHg; VBG pH 7.52 (7.32-7.43); VBG pO2 33 mmHg
--- NOTE | 2023-01-31 09:57 | PHA.MEDREC ---
Pharmacy Consult ? Medication Reconciliation Pharmacy has completed the medication reconciliation. USED LIST FROM [facility]
--- NOTE | 2023-01-31 10:00 | PC.NURSE ---
PT'S 02 WAS 86%. OXYGEN INCREASED TO 80%. 02 SAT 88%. RESP/MD AWARE.
[2023-01-31 10:08] LABS: Reflex Lactate? Lactic Acid Added
[2023-01-31 10:43] LABS: CDiff Gene PCR NEGATIVE (Negative)
[2023-01-31 11:02] LABS: ~Lactic Acid-LAB USE ONLY 1.7 mmol/L (0.5-2.0)
--- NOTE | 2023-01-31 12:15 | PC.NURSE ---
Addendum entered by Susan Hunter 01/31/23 13:59: md aware. Original Note: pt has been suctioned with the yanker numerous times for frothy brown sputum.
--- NOTE | 2023-01-31 13:56 | PC.NURSE ---
pt appear more awake then earlier this am. pt is resting will continue to monitor.
--- NOTE | 2023-01-31 14:35 | PC.NURSE ---
PT HEALTH CARE PROXY (LUCAS, ) CALLED [facility] AND WAS UPDATED ON PT STATUS.
--- NOTE | 2023-01-31 14:49 | P.HPHOSP_ITS ---
History of Present Illness Date of Service: 01/31/23 Chief Complaint: Hypoxia ?a 52-year-old male with a PMH significant for?stage IV mantle cell lymphoma, [employer] toxoplasmosis, acute on chronic respiratory failure with trach in place on 35% trach mask, normocytic anemia, BPH, urinary retention with chronic catheter in place, seizure disorder, G-tube in place, Pelvic OM on Vancomycin who presents to the ED from [facility] for evaluation of?Hypoxia and dark secretion from his trach. The patient was found hypoxic this morning at facility down to 80s. patient can not provide any history. he was suctioned brown-black color material. placed on higher O2 supplement. In ED found to by hypoxic in 70s, Tachycardic and responded well to increase O2 supplement and frequent suctions. Positive occult stool. CXR showing bilateral opacities. Admitted for further treatment. Review of Systems Review of Systems: Yes Unobtainable due to mental status PMFSH Medical History Anemia Appendicitis Chronic pain [employer] lymphoma Depression Encephalopathy H/O: RCT (rotator cuff tear) Kidney stone Mantle cell lymphoma Rectal bleeding Toxoplasmosis Family History Mother COPD (chronic obstructive pulmonary disease) Sister Colon cancer Surgical History History of appendectomy Social History Household Members: None Housing: [facility] Do you presently have visiting nurse or other home services: No Unable to assess alcohol history related to: Unable to respond Alcohol intake: unknown Patient Tobacco Use Status: Never used Tobacco Smoked in Last 30 Days: No Use of substances other than those prescribed or required for medical reasons: Unable to respond Substance Use Type: Marijuana Advance Directives: No Advance Directives Information Provided: No service: No Current occupational status: unemployed Meds Allergies Allergy/AdvReac Type Severity Reaction Status Date / Time cyclobenzaprine [Flexeril] Allergy Unknown Palpitation Verified 09/22/20 15:41 s Active Medications: Current Medications Pharmacy Consult (Consult Rx Perform Med Rec) 1 each MISCELLANE ONCE PRN PRN Reason: Consult order Home Medications Medication Instructions Recorded Confirmed Last Taken Type acetaminophen 325 mg tablet 650 mg feeding tube Q4H PRN Fever 01/02/23 01/31/23 01/02/23 08:00 History Or Pain acetaminophen 650 mg rectal 650 mg ID Q4-6H PRN fever or pain 01/02/23 01/31/23 Unknown History suppository albuterol sulfate 2.5 mg/3 mL 2.5 mg inhalation Q4H PRN 01/02/23 01/31/23 Unknown History (0.083 %) solution for nebulization Shortness Of Breath Or Wheezing ascorbic acid (vitamin C) 250 mg 250 mg feeding tube DAILY 01/02/23 01/31/23 01/02/23 08:00 History tablet atovaquone 750 mg/5 mL oral 750 mg feeding tube BID 01/02/23 01/31/23 01/02/23 08:00 History suspension baclofen 10 mg tablet 5 mg feeding tube TID 01/02/23 01/31/23 01/02/23 05:22 History bisacodyl 10 mg rectal suppository 10 mg ID DAILY PRN Constipation 01/02/23 01/31/23 Unknown History chlorhexidine gluconate 0.12 % 15 ml buccal BID 01/02/23 01/31/23 01/02/23 08:00 History mouthwash cholecalciferol (vitamin D3) 1,250 1,250 mcg feeding tube QMONTH 01/02/23 01/31/23 01/27/23 History mcg (50,000 unit) tablet cholestyramine-aspartame 4 gram 4 g feeding tube DAILY 01/02/23 01/31/23 01/02/23 08:00 History oral powder for susp in a packet (Cholestyramine Light) collagenase clostridium histo. 250 1 appl topical BID 01/02/23 01/31/23 01/02/23 08:00 History unit/gram topical ointment doxazosin 1 mg tablet 1 mg feeding tube BEDTIME 01/02/23 01/31/23 01/02/23 08:00 History famotidine 20 mg tablet 20 mg feeding tube BID 01/02/23 01/31/23 01/02/23 08:00 History ferrous sulfate 300 mg (60 mg 300 mg feeding tube DAILY 01/02/23 01/31/23 01/02/23 08:00 History iron)/5 mL oral liquid finasteride 5 mg tablet 5 mg feeding tube DAILY 01/02/23 01/31/23 01/02/23 08:00 History glycopyrrolate 1 mg tablet 1 mg feeding tube TID 01/02/23 01/31/23 01/02/23 05:00 History guaifenesin 200 mg/5 mL oral liquid 200 mg feeding tube Q4H PRN Cough 01/02/23 01/31/23 Unknown History lacosamide 200 mg tablet 200 mg feeding tube BID 01/02/23 01/31/23 01/02/23 08:00 History leucovorin calcium 25 mg tablet 25 mg feeding tube BEDTIME 01/02/23 01/31/23 Unknown History loperamide 2 mg capsule 2 mg feeding tube Q4H PRN Diarrhea 01/02/23 01/31/23 Unknown History lorazepam 0.5 mg tablet 0.5 mg feeding tube Q6H PRN Anxiety 01/02/23 01/31/23 01/02/23 00:48 History lorazepam 2 mg/mL injection See Rx Instructions .Route .COMPLEX 01/02/23 01/31/23 Unknown History solution magnesium hydroxide 400 mg/5 mL 30 ml feeding tube DAILY PRN 01/02/23 01/31/23 Unknown History oral suspension (Milk of Magnesia) Constipation melatonin 3 mg tablet 3 mg feeding tube BEDTIME 01/02/23 01/31/23 Unknown History midodrine 5 mg tablet 7.5 mg feeding tube TID 01/02/23 01/31/23 01/02/23 05:00 History morphine 10 mg/5 mL oral solution 5 mg feeding tube BID 01/02/23 01/31/23 01/02/23 08:00 History ondansetron HCl 2 mg/mL 4 mg IM Q4H PRN Nausea And Vomiting 01/02/23 01/31/23 Unknown History intravenous solution ondansetron HCl 4 mg tablet 4 mg feeding tube Q4H PRN Nausea 01/02/23 01/31/23 Unknown History And Vomiting oxycodone 5 mg tablet 5 mg feeding tube Q4H PRN Moderate 01/02/23 01/31/23 Unknown History Pain (Scale Score 5-6) scopolamine base 1 mg over 3 days 1 patch transdermal Q3D 01/02/23 01/31/23 Unknown History transdermal patch sennosides 8.6 mg-docusate sodium 1 tab-cap PO BID 01/02/23 01/31/23 01/02/23 08:00 History 50 mg tablet (Senna with Docusate Sodium) sodium phosphates 19 gram-7 118 ml ID DAILY PRN Constipation 01/02/23 01/31/23 Unknown History gram/118 mL enema (Fleet Enema) tramadol 50 mg tablet 50 mg PO Q4H PRN Pain 01/02/23 01/31/23 Unknown History zinc sulfate 50 mg zinc (220 mg) 50 mg feeding tube BEDTIME 01/02/23 01/31/23 Unknown History tablet Saccharomyces boulardii 250 mg 250 mg PO BID 01/31/23 01/31/23 Unknown History capsule (Florastor) multivitamin 1 tab PO DAILY 01/31/23 01/31/23 Unknown History pyrimethamine 25 mg tablet 25 mg PO DAILY 01/31/23 01/31/23 Unknown History Physical Exam Vital Signs and Narrative: Vital Signs: Last Vital Signs Temp 98.3 F 01/31/23 13:36 Pulse 109 H 01/31/23 13:36 Resp 20 01/31/23 13:36 BP 125/80 01/31/23 13:36 Pulse Ox 95 01/31/23 13:36 O2 Del Method Trach Collar 01/31/23 13:36 O2 Flow Rate 11 01/31/23 13:36 FiO2 80 01/31/23 13:36 Oxygen Flow Rate 10 01/31/23 05:26 BMI result Body Mass Index 19.2 Const: Other: Constitutional : Awake,? not in distress Neck : Normal inspection, Supple Cardiovascular : RRR, no JVP, no lower extremity edema Respiratory : fair bilateral air entry,? basal bilateral crackles, Trach with foamy dark colored secretions coming through it. on Trach Gastrointestinal:? soft, lax, Normal bowel sounds, G-tube in place, no significant tenderness Skin : Warm, Dry, decubetus ulcers, deep on the side with large puncture, black discolored skin rectal area Neurological : Alert, No focal deficit but retracted Results Labs 01/31/23 08:03 01/31/23 08:03 Labs: Laboratory Results - last 24 hr 01/31/23 01/31/23 01/31/23 08:03 08:03 08:03 MCV 90.7 MCH 27.5 MCHC 30.3 L RDW 19.2 H Plt Count 177 MPV 10.8 Immature Gran % (Auto) 0.3 Neut % (Auto) 86.3 H Lymph % (Auto) 4.5 L [place] % (Auto) 8.7 Eos % (Auto) 0.0 Baso % (Auto) 0.2 Lymph # (Auto) 0.5 L [place] # (Auto) 1.1 Eos # (Auto) 0.0 Baso # (Auto) 0.0 Abs Immat Gran (auto) 0.04 H Absolute Neuts (auto) 10.5 H Absolute Nucleated RBC 0.000 Nucleated RBC % (auto) 0.0 PT INR APTT VBG pH VBG pCO2 VBG pO2 VBG HCO3 VBG O2 Saturation VBG Base Excess Anion Gap 18 Estim Creat Clear Calc 70.7 Estimated GFR > 60 Random Glucose 137 H Lactic Acid Lactic Acid F/U @ 2Hr Calcium 9.7 D Magnesium 2.0 Total Bilirubin 0.6 Direct Bilirubin 0.2 AST 15 ALT 19 Alkaline Phosphatase 150 H B-Natriuretic Peptide 22 Total Protein 7.0 Albumin 3.5 Procalcitonin 0.23 Stool Occult Blood C. difficile Tox B Gene 01/31/23 01/31/23 01/31/23 08:04 08:04 08:10 MCV MCH MCHC RDW Plt Count MPV Immature Gran % (Auto) Neut % (Auto) Lymph % (Auto) [place] % (Auto) Eos % (Auto) Baso % (Auto) Lymph # (Auto) [place] # (Auto) Eos # (Auto) Baso # (Auto) Abs Immat Gran (auto) Absolute Neuts (auto) Absolute Nucleated RBC Nucleated RBC % (auto) PT 12.7 INR 1.1 APTT 32.4 VBG pH VBG pCO2 VBG pO2 VBG HCO3 VBG O2 Saturation VBG Base Excess Anion Gap Estim Creat Clear Calc Estimated GFR Random Glucose Lactic Acid 3.4 H* Lactic Acid F/U @ 2Hr Calcium Magnesium Total Bilirubin Direct Bilirubin AST ALT Alkaline Phosphatase B-Natriuretic Peptide Total Protein Albumin Procalcitonin Stool Occult Blood POSITIVE C. difficile Tox B Gene 01/31/23 01/31/23 01/31/23 08:10 09:26 10:44 MCV MCH MCHC RDW Plt Count MPV Immature Gran % (Auto) Neut % (Auto) Lymph % (Auto) [place] % (Auto) Eos % (Auto) Baso % (Auto) Lymph # (Auto) [place] # (Auto) Eos # (Auto) Baso # (Auto) Abs Immat Gran (auto) Absolute Neuts (auto) Absolute Nucleated RBC Nucleated RBC % (auto) PT INR APTT VBG pH 7.52 H VBG pCO2 40 VBG pO2 33 VBG HCO3 33 H VBG O2 Saturation 47.0 VBG Base Excess 9.6 Anion Gap Estim Creat Clear Calc Estimated GFR Random Glucose Lactic Acid Lactic Acid F/U @ 2Hr 1.7 Calcium Magnesium Total Bilirubin Direct Bilirubin AST ALT Alkaline Phosphatase B-Natriuretic Peptide Total Protein Albumin Procalcitonin Stool Occult Blood C. difficile Tox B Gene NEGATIVE Imaging Radiologist's Impressions: Impressions Chest X-Ray 01/31/23 06:45 IMPRESSION: Bilateral lower lobe streaky opacities, left greater than right, suspicious for infiltrate at least on the left possibly related to aspiration. 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 Sepsis in the setting of acute on chronic Hypoxic respiratory failure 2/2 aspiration pneumonitis\pneumonia leukocytosis , tachypnea and tachycardia pending cultures IV Abx of Zosyn IV Methylprednisolone Pulm consult wean O2 down as tolerated Positive occult stool possible upper GI bleed H&H stable, vitals stable occult gastric fluids get GI eval monitor H&H chronic OM of pelvis covered by vancomycin IV, plan for 6 weeks iv vanc (end february 06, 2023) Vanco 1 gm q12 follow Vancomycin trough UTI in chronic Rubio catheter growing Pseudomonas likely colonizer, hold on treatment for now Diet Pt has G-tube in place Osmolite 1.5, Prosource, Brice, [employer]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 hypernatremia increased free fluid, monitor, improving Stage IV mantle cell lymphoma in remission [employer] 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 Quality Stroke Does the patient have a stroke diagnosis?: No VTE Prior VTE?: No VTE Risk Level:: Medical - moderate - high VTE Device Contraindication: N/A - Device Ordered VTE Drug Contraindication: Treatment Not Indicated
--- NOTE | 2023-01-31 15:00 | PC.NURSE ---
bm x 5 loose/watery brown stool from large decreasing with every bm.
--- NOTE | 2023-01-31 15:16 | MHC.CLN ---
RE: CONSULT SPOKE WITH MD REGARDING TF PT TO REMAIN NPO AT THIS TIME WHEN TF NEEDED; RECOMMEND OSMOLITE 1.5 AT MAX GOAL RATE 60ML/HR CONTINUOUS WITH 240ML FREE WATER FLUSHES Q 8 HRS TO PROVIDE 2160KCALS, 90G PROTEIN, 1817ML TOTAL WATER FROM FORMULA AND FLUSHES (32ML/KG) START FORMULA AT 20ML/HR AND INCREASE BY 10ML Q 4 HRS UNTIL MAX GOAL IS ACHIEVED MONITOR TOLERANCE, RESIDUALS AND LYTES FULL NUTRITION ASSESSMENT TO FOLLOW
[2023-01-31 16:14] LABS: Vancomycin Random 13.8 mcg/mL (15-20)
[2023-01-31] MEDS: methylPREDNISolone Sod Succ 40 MG/ML VIAL IVPUSH ×2 (16:22→23:07)
[2023-01-31] MEDS: Piperacillin Sodium/Tazobactam 3.375 GM in 0.9 % Sodium Chloride 50 ML IV ×2 (16:23→21:35)
--- NOTE | 2023-01-31 16:40 | PC.NURSE ---
rn to rn report given to
--- NOTE | 2023-01-31 16:50 | PHA.PROG ---
Admission Date/Time: January 31, 2023 14:36 Indication: BONE & JOINT Weight in k.153 kg Adjusted body weight in K.901 [place] body weight in K.4 Obesity Dosing Indication % IBW: 19.2 Serum Creatinine - Last 168 Hours 01/31/23 08:03 Creatinine 1.01 Estimated CrCl and GFR - Last 168 Hours 01/31/23 08:03 Estim Creat Clear Calc 70.7 Estimated GFR > 60 Vancomycin Loading Dose: 1500 ONE TIME DOSE (PT HOME DOSE IS 1000 Q12) Current Vancomycin Dosing Regimen: 1000 Q12 STARTING 02/01 @0600 Vancomycin Monitoring using AUC goal of 400 - 600 range with trough as surrogate marker: INSIGHT IS NOT GIVING ACCURATE INFORMATION DUE TO PATIENT LEVEL HIGHER THAN EXPECTED WITH ONLY DATA FROM LAST HOME DOSE AVAILABLE. ACCORDING TO INFORMATION AVAILABLE WE WOULD SEE AUC 867 AND TROUGH 27.6 BUT WE ONLY HAVE ONE DOSE TO ENTER AND A LEVEL OF 13.8. Date and Time for next Vancomycin Level to be drawn: 02/01 @1600 Pharmacist Comments on Vancomycin Plan: SINCE PATIENT IS ON VANCOMYCIN AT HOME AND IS SUBTHERAPEUTIC AT THIS TIME, GIVING A ONE TIME DOSE OF 1500 MG AND THEN RESUMING HOME DOSE OF 1000 MG TOMORROW MORNING 02/01 @0600. CHECKING A LEVEL 02/01@1600 TO ENSURE SAFETY AND EFFICACY. WE SHOULD BE ABLE TO MORE ACCURATELY MODEL CORRECT DOSING AFTER WE GIVE A FEW MORE DOSES AND HAVE ANOTHER LEVEL TOMORROW NIGHT. Vancomycin dosing will take advantage of [employer] as a clinical decision support tool that uses Bayesian modeling to calculate individual patient's pharmacokinetic parameters and forecast the patient's drug concentration time course with the target goal AUC 24 range of 400 - 600 mg/L/hr.
[2023-01-31 16:58] LABS: GASOB Int Pos Ctl Valid YES
[2023-01-31 16:59] LABS: GASOB Int Neg Ctl Valid YES; Occult Blood Gastric POSITIVE (NEG)
--- NOTE | 2023-01-31 17:18 | MHC.EDTECH ---
This tech has changed patient four times from 11:00AM to 17:15PM, which time feces was liquid in consistence and amount was medium in size. Dark brown in color. RN aware of each change. Wound dressing were changed when soiled.
[2023-01-31] MEDS: vancomycin HCL 1,500 MG in 0.9 % Sodium Chloride 500 ML 333.33 MG IV (18:56)
[2023-01-31] MEDS: 0.9 % Sodium Chloride Flush 3 ML SYRINGE IVFLUSH ×2 (18:57→21:35)
[2023-01-31] MEDS: Scopolamine 1.5 MG PATCH.TD.3 TRANSDERMA (19:04)
[2023-01-31] MEDS: Omeprazole 40 MG CAPSULE.DR PO (19:04)
[2023-01-31 19:14] LABS: Estimated Glomerular Filt Rate > 60
[2023-02-01] VITALS (11 sets, daily range): BP systolic 100–126; BP diastolic 55–67; PULSE 81–114; RESP 16–20; TEMP 36.2–37.6; O2SAT 93–99; BMI 19.2
[2023-02-01] MEDS: Morphine Sulfate 2 MG/ML CARTRIDGE IVPUSH (01:55)
[2023-02-01] MEDS: ondansetron HCL 4 MG/2 ML VIAL IVPUSH (01:55)
[2023-02-01] MEDS: Piperacillin Sodium/Tazobactam 3.375 GM in 0.9 % Sodium Chloride 50 ML IV ×4 (03:04→20:06)
[2023-02-01] MEDS: vancomycin HCL 1,000 MG in 0.9 % Sodium Chloride 250 ML 270 MG IV ×2 (05:49→18:14)
[2023-02-01 07:17] LABS: Hematocrit 27.6 % (42.0-52.0); Hemoglobin 8.2 g/dl (14.0-18.0); Mean Corpuscular HGB Conc 29.7 g/dl (31.0-36.0); Mean Corpuscular Hemoglobin 27.3 pg (27.0-33.0); Mean Platelet Volume 10.7 fL (9.4-12.4); Platelet Count 150 X10*3/uL (160-400); Red Cell Distribution Width 19.8 % (11.0-16.0); White Blood Count 9.6 X10*3/uL (4.8-10.8)
[2023-02-01 07:21] LABS: Alanine Aminotransferase 14 U/L (0-40); Albumin Level 2.9 g/dL (3.5-5.0); Alkaline Phosphatase 122 U/L (39-117); Anion Gap 11 (12-20); Aspartate Amino Transferase 12 U/L (5-37); Bilirubin Total 0.5 mg/dL (0.0-1.0); Blood Urea Nitrogen 38 mg/dL (9-16); Calcium 8.6 mg/dL (8.4-10.2); Carbon Dioxide 25 mmol/L (22-29); Chloride 111 mmol/L (96-108); Creatinine Clr Calc Pharmacy 72.1; Estimated Glomerular Filt Rate > 60; Glucose Random 138 mg/dL (60-115); Sodium 143 mmol/L (135-145); Total Protein 5.9 g/dL (6.5-8.0)
--- NOTE | 2023-02-01 08:57 | PM.GICN ---
History of Present Illness Data of Consult Service Date: 02/01/23 Requesting physician: Patrick Pineda Primary Care Provider: Bettina Ortiz MD [facility] Reason for consult: GI bleed This is a 52-year-old gentleman with past medical history of chronic hypoxic respiratory failure status post tracheostomy, history of stage IV mantle cell lymphoma, [employer] COMM[employer]IST toxoplasmosis, BPH, urinary retention with a chronic catheter in place, seizure disorder, G-tube dependent, who presented to the hospital for acute on chronic hypoxic respiratory failure and was found to have coffee-ground material suctioned from his trach. Gastroenterology has been consulted for possible upper GI bleeding. History was obtained from the chart given patient's mental status. Had a hospitalisation in October for similar presentation of acute on chronic hypoxic resp failure to [facility], at that time had concurrent RSV and covid leading to copious secretions requiring multiple bronchs that admission. Was discharged to [facility] where the day of admission, he was noted to have bouts of emesis associated with hypoxia down to 70-80%. Trach was suctioned that brought coffee grounds. On arrival to hospital he was placed on 10L supplemental O2 through the trach mask, baseline requirement appears to be 5L. CXR suggestive of aspiration pneumonia. 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 Depression Encephalopathy H/O: RCT (rotator cuff tear) Kidney stone Mantle cell lymphoma Rectal bleeding Toxoplasmosis Family History Family History Mother COPD (chronic obstructive pulmonary disease) Sister Colon cancer Surgical History Surgical History History of appendectomy Social History Social History Household Members: Unknown / Unable to assess Housing: Other Housing Other:: [facility] Unable to assess alcohol history related to: Unable to respond Alcohol intake: unknown Patient Tobacco Use Status: Never used Tobacco Substance Use Type: Marijuana service: No Current occupational status: unemployed Meds Allergies Allergy/AdvReac Type Severity Reaction Status Date / Time cyclobenzaprine [Flexeril] Allergy Unknown Palpitation Verified 09/22/20 15:41 s Active Medications: Current Medications Acetaminophen (Acetaminophen 325 Mg Tablet) 650 mg G-TUBE Q6H PRN PRN Reason: Pain, Mild (Pain Scale 1-3) Albuterol Sulfate (Albuterol Sulfate (0.083%) 2.5 Mg/3 Ml Vial.Neb) 2.5 mg INHALE Q4H PRN PRN Reason: Shortness Of Breath Or Wheezing Atovaquone (Atovaquone 750 Mg/5 Ml Oral.Susp) 750 mg G-TUBE BID [facility] Last Admin: 01/31/23 21:27 Dose: Not Given Chlorhexidine Gluconate (Chlorhexidine Gluc Oral Rinse 15 Ml Mouthwash) 15 ml BUCCAL BID [facility] Last Admin: 01/31/23 21:27 Dose: Not Given Doxazosin Mesylate (Doxazosin Mesylate 1 Mg Tablet) 1 mg G-TUBE BEDTIME [facility]; Protocol Last Admin: 01/31/23 21:27 Dose: Not Given Finasteride (Finasteride 5 Mg Tablet) 5 mg PO DAILY [facility] Piperacillin Sod/Tazobactam (Sod 3.375 gm/ Sodium Chloride) 50 mls @ 100 mls/hr IV Q6H [facility] Last Infusion: 02/01/23 03:42 Dose: Infused Vancomycin HCl 1,000 mg/ (Sodium Chloride) 270 mls @ 270 mls/hr IV Q12H [facility] Last Infusion: 02/01/23 07:16 Dose: Infused Lacosamide (Lacosamide 100 Mg Tablet) 200 mg G-TUBE BID [facility] Last Admin: 01/31/23 21:27 Dose: Not Given Loperamide HCl (Loperamide Hcl 2 Mg Capsule) 2 mg G-TUBE Q4H PRN PRN Reason: Diarrhea Lorazepam (Lorazepam 2 Mg/Ml Vial) 2 mg IM DAILY PRN PRN Reason: SIEZURE > 5 MINUTES Lorazepam (Lorazepam 0.5 Mg Tablet) 0.5 mg G-TUBE Q6H PRN PRN Reason: Anxiety Methylprednisolone Sodium Succinate (Methylprednisolone Sod Succ 40 Mg/Ml Vial) 40 mg IVPUSH Q8H [facility] Last Admin: 01/31/23 23:07 Dose: 40 mg Midodrine (Midodrine Hcl 2.5 Mg Tablet) 7.5 mg G-TUBE TID [facility] Last Admin: 01/31/23 21:27 Dose: Not Given Morphine Sulfate (Morphine Sulfate 2 Mg/Ml Cartridge) 2 mg IVPUSH Q4H PRN; Protocol PRN Reason: Pain, Severe (Pain Scale 7-10) Last Admin: 02/01/23 01:55 Dose: 2 mg Ondansetron HCl (Ondansetron Hcl 4 Mg/2 Ml Vial) 4 mg IVPUSH Q8H PRN PRN Reason: Nausea and Vomiting Last Admin: 02/01/23 01:55 Dose: 4 mg Pantoprazole Sodium (Pantoprazole Sodium 40 Mg/10 Ml Vial) 40 mg IVPUSH BID@0630,1630 [facility] Pharmacy Consult (Consult Rx Perform Med Rec) 1 each MISCELLANE ONCE PRN PRN Reason: Consult order Pharmacy Consult (Consult Rx Vancomycin Dosing) 1 each MISCELLANE DAILY PRN PRN Reason: Consult order Scopolamine (Scopolamine 1.5 Mg Patch.Td.3) 1.5 mg TRANSDERMA Q3D [facility] Last Admin: 01/31/23 19:04 Dose: 1.5 mg Sodium Chloride (0.9 % Sodium Chloride Flush 3 Ml Syringe) 3 ml IVFLUSH QSHIFT [facility] Last Admin: 01/31/23 21:35 Dose: 3 ml Trimethoprim/Sulfamethoxazole (Sulfameth/Trimet 800/160/20 Ml 20 Ml Oral.Susp) 20 ml PO MoWeFr@0900 [facility] Home Medications Medication Instructions Recorded Confirmed Last Taken Type acetaminophen 325 mg tablet 650 mg feeding tube Q4H PRN Fever 01/02/23 01/31/23 01/02/23 08:00 History Or Pain acetaminophen 650 mg rectal 650 mg [place] Q4-6H PRN fever or pain 01/02/23 01/31/23 Unknown History suppository albuterol sulfate 2.5 mg/3 mL 2.5 mg inhalation Q4H PRN 01/02/23 01/31/23 Unknown History (0.083 %) solution for nebulization Shortness Of Breath Or Wheezing ascorbic acid (vitamin C) 250 mg 250 mg feeding tube DAILY 01/02/23 01/31/23 01/02/23 08:00 History tablet atovaquone 750 mg/5 mL oral 750 mg feeding tube BID 01/02/23 01/31/23 01/02/23 08:00 History suspension baclofen 10 mg tablet 5 mg feeding tube TID 01/02/23 01/31/23 01/02/23 05:22 History bisacodyl 10 mg rectal suppository 10 mg [place] DAILY PRN Constipation 01/02/23 01/31/23 Unknown History chlorhexidine gluconate 0.12 % 15 ml buccal BID 01/02/23 01/31/23 01/02/23 08:00 History mouthwash cholecalciferol (vitamin D3) 1,250 1,250 mcg feeding tube QMONTH 01/02/23 01/31/23 01/27/23 History mcg (50,000 unit) tablet cholestyramine-aspartame 4 gram 4 g feeding tube DAILY 01/02/23 01/31/23 01/02/23 08:00 History oral powder for susp in a packet (Cholestyramine Light) collagenase clostridium histo. 250 1 appl topical BID 01/02/23 01/31/23 01/02/23 08:00 History unit/gram topical ointment doxazosin 1 mg tablet 1 mg feeding tube BEDTIME 01/02/23 01/31/23 01/02/23 08:00 History famotidine 20 mg tablet 20 mg feeding tube BID 01/02/23 01/31/23 01/02/23 08:00 History ferrous sulfate 300 mg (60 mg 300 mg feeding tube DAILY 01/02/23 01/31/23 01/02/23 08:00 History iron)/5 mL oral liquid finasteride 5 mg tablet 5 mg feeding tube DAILY 01/02/23 01/31/23 01/02/23 08:00 History glycopyrrolate 1 mg tablet 1 mg feeding tube TID 01/02/23 01/31/23 01/02/23 05:00 History guaifenesin 200 mg/5 mL oral liquid 200 mg feeding tube Q4H PRN Cough 01/02/23 01/31/23 Unknown History lacosamide 200 mg tablet 200 mg feeding tube BID 01/02/23 01/31/23 01/02/23 08:00 History leucovorin calcium 25 mg tablet 25 mg feeding tube BEDTIME 01/02/23 01/31/23 Unknown History loperamide 2 mg capsule 2 mg feeding tube Q4H PRN Diarrhea 01/02/23 01/31/23 Unknown History lorazepam 0.5 mg tablet 0.5 mg feeding tube Q6H PRN Anxiety 01/02/23 01/31/23 01/02/23 00:48 History lorazepam 2 mg/mL injection See Rx Instructions .Route .COMPLEX 01/02/23 01/31/23 Unknown History solution magnesium hydroxide 400 mg/5 mL 30 ml feeding tube DAILY PRN 01/02/23 01/31/23 Unknown History oral suspension (Milk of Magnesia) Constipation melatonin 3 mg tablet 3 mg feeding tube BEDTIME 01/02/23 01/31/23 Unknown History midodrine 5 mg tablet 7.5 mg feeding tube TID 01/02/23 01/31/23 01/02/23 05:00 History morphine 10 mg/5 mL oral solution 5 mg feeding tube BID 01/02/23 01/31/23 01/02/23 08:00 History ondansetron HCl 2 mg/mL 4 mg IM Q4H PRN Nausea And Vomiting 01/02/23 01/31/23 Unknown History intravenous solution ondansetron HCl 4 mg tablet 4 mg feeding tube Q4H PRN Nausea 01/02/23 01/31/23 Unknown History And Vomiting oxycodone 5 mg tablet 5 mg feeding tube Q4H PRN Moderate 01/02/23 01/31/23 Unknown History Pain (Scale Score 5-6) scopolamine base 1 mg over 3 days 1 patch transdermal Q3D 01/02/23 01/31/23 Unknown History transdermal patch sennosides 8.6 mg-docusate sodium 1 tab-cap PO BID 01/02/23 01/31/23 01/02/23 08:00 History 50 mg tablet (Senna with Docusate Sodium) sodium phosphates 19 gram-7 118 ml [place] DAILY PRN Constipation 01/02/23 01/31/23 Unknown History gram/118 mL enema (Fleet Enema) tramadol 50 mg tablet 50 mg PO Q4H PRN Pain 01/02/23 01/31/23 Unknown History zinc sulfate 50 mg zinc (220 mg) 50 mg feeding tube BEDTIME 01/02/23 01/31/23 Unknown History tablet Saccharomyces boulardii 250 mg 250 mg PO BID 01/31/23 01/31/23 Unknown History capsule (Florastor) multivitamin 1 tab PO DAILY 01/31/23 01/31/23 Unknown History pyrimethamine 25 mg tablet 25 mg PO DAILY 01/31/23 01/31/23 Unknown History Physical Exam Vital Signs: Vital Signs: Last Vital Signs Temp 99.1 F 02/01/23 07:39 Pulse 104 H 02/01/23 07:39 Resp 16 02/01/23 07:39 BP 109/67 02/01/23 07:39 Pulse Ox 96 02/01/23 07:39 O2 Del Method Venturi Mask 02/01/23 07:39 O2 Flow Rate 10 02/01/23 07:39 FiO2 40 02/01/23 07:39 Oxygen Flow Rate 10 01/31/23 05:26 BMI result Body Mass Index 19.2 Gen appear: Undernourished chronically ill appearing male HEENT: no icterus Chest: bibasilar crackles CVS: S1/S2, regular Abd: soft, no wincing to palpation, Neuro: Awake, tracks movements Ext: no peripheral edema Results Labs 02/01/23 06:23 02/01/23 06:23 Labs: Short CBC 02/01/23 Range/Units 06: WBC 9.6 (4.8-10.8) X10*3/uL Hgb 8.2 L D (14.0-18.0) g/dl Hct 27.6 L D (42.0-52.0) % Plt Count 150 L (160-400) X10*3/uL BMP 01/31/23 02/01/23 15:22 06:23 Sodium 143 Potassium 4.0 Chloride 111 H Carbon Dioxide 25 BUN 38 H Creatinine 0.84 0.99 Calcium 8.6 D Liver Function 02/01/23 Range/Units 06: Total Bilirubin 0.5 (0.0-1.0) mg/dL AST 12 (5-37) U/L ALT 14 (0-40) U/L Alkaline Phosphatase 122 H (39-117) U/L Albumin 2.9 L (3.5-5.0) g/dL Microbiology Microbiology Results: Microbiology 01/31/23 07:58 Sputum - Suctioned Gram Stain - Final 01/31/23 07:58 Sputum - Suctioned Sputum Culture - Preliminary Culture in progress. Assessment and Plan (1) Acute on chronic blood loss anemia: Status: Acute (2) GI bleed: Status: Acute Plan Clinical presentation suggestive of UGIB leading to coffee ground emesis with aspiration and PNA. Although has high O2 requirements, does not have significant work of breathing and appears comfortable on exam. Will plan for urgent EGD today for evaluation +/- hemostasis Type and screen ordered Cont NPO Cont PPI IV BID HCP Cornelius updated on , he is aware to be available for consent for the procedure this afternoon. Time Spent With Patient Time: Total time managing care of this patient today ____ minutes. Procedures Date of Service Date of Service: 02/01/23
[2023-02-01] MEDS: methylPREDNISolone Sod Succ 40 MG/ML VIAL IVPUSH ×3 (09:18→23:40)
[2023-02-01] MEDS: Pantoprazole Sodium 40 MG/10 ML VIAL IVPUSH (09:18)
--- NOTE | 2023-02-01 09:18 | MHC.CM.PN ---
Pt admitted with hypoxia. Pt from [facility], D/C plan for pt to return there when medically cleared. Pts friends Cornelius/HCP ([phone]) updated and in agreement with plan for pt to return to [facility] when medically cleared. Transport via [facility]/[place]. PCP: Bettina Ortiz
[2023-02-01] MEDS: 0.9 % Sodium Chloride Flush 3 ML SYRINGE IVFLUSH ×3 (09:19→20:23)
--- NOTE | 2023-02-01 09:19 | PM.CNPUL ---
History of Present Illness History of Present Illness Consult date: 02/01/23 Chief complaint: Hypoxia Narrative: This is an inpatient pulmonary consultation. 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 for evaluation of?Hypoxia and dark secretion from his trach. The patient was found hypoxic this morning at facility down to 80s. patient can not provide any history. he was suctioned brown-black color material. placed on higher O2 supplement. In the ER the patient had a CXR personally reviewed by me demonstrating patchy areas of air space disease. The patient is back on TC 10L doing well. The patient is non verbal, no further details are available. 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 Depression Encephalopathy H/O: RCT (rotator cuff tear) Kidney stone Mantle cell lymphoma Rectal bleeding Toxoplasmosis Family History Family History Mother COPD (chronic obstructive pulmonary disease) Sister Colon cancer Surgical History Surgical History History of appendectomy Social History Social History Household Members: Unknown / Unable to assess Housing: Other Housing Other:: [facility] Unable to assess alcohol history related to: Unable to respond Alcohol intake: unknown Patient Tobacco Use Status: Never used Tobacco Substance Use Type: Marijuana service: No Current occupational status: unemployed Meds Allergies Allergy/AdvReac Type Severity Reaction Status Date / Time cyclobenzaprine [Flexeril] Allergy Unknown Palpitation Verified 09/22/20 15:41 s Active Medications: Current Medications Acetaminophen (Acetaminophen 325 Mg Tablet) 650 mg G-TUBE Q6H PRN PRN Reason: Pain, Mild (Pain Scale 1-3) Albuterol Sulfate (Albuterol Sulfate (0.083%) 2.5 Mg/3 Ml Vial.Neb) 2.5 mg INHALE Q4H PRN PRN Reason: Shortness Of Breath Or Wheezing Atovaquone (Atovaquone 750 Mg/5 Ml Oral.Susp) 750 mg G-TUBE BID [facility] Last Admin: 01/31/23 21:27 Dose: Not Given Chlorhexidine Gluconate (Chlorhexidine Gluc Oral Rinse 15 Ml Mouthwash) 15 ml BUCCAL BID [facility] Last Admin: 01/31/23 21:27 Dose: Not Given Doxazosin Mesylate (Doxazosin Mesylate 1 Mg Tablet) 1 mg G-TUBE BEDTIME [facility]; Protocol Last Admin: 01/31/23 21:27 Dose: Not Given Finasteride (Finasteride 5 Mg Tablet) 5 mg PO DAILY [facility] Piperacillin Sod/Tazobactam (Sod 3.375 gm/ Sodium Chloride) 50 mls @ 100 mls/hr IV Q6H [facility] Last Infusion: 02/01/23 03:42 Dose: Infused Vancomycin HCl 1,000 mg/ (Sodium Chloride) 270 mls @ 270 mls/hr IV Q12H [facility] Last Infusion: 02/01/23 07:16 Dose: Infused Lacosamide (Lacosamide 100 Mg Tablet) 200 mg G-TUBE BID [facility] Last Admin: 01/31/23 21:27 Dose: Not Given Loperamide HCl (Loperamide Hcl 2 Mg Capsule) 2 mg G-TUBE Q4H PRN PRN Reason: Diarrhea Lorazepam (Lorazepam 2 Mg/Ml Vial) 2 mg IM DAILY PRN PRN Reason: SIEZURE > 5 MINUTES Lorazepam (Lorazepam 0.5 Mg Tablet) 0.5 mg G-TUBE Q6H PRN PRN Reason: Anxiety Methylprednisolone Sodium Succinate (Methylprednisolone Sod Succ 40 Mg/Ml Vial) 40 mg IVPUSH Q8H [facility] Last Admin: 01/31/23 23:07 Dose: 40 mg Midodrine (Midodrine Hcl 2.5 Mg Tablet) 7.5 mg G-TUBE TID [facility] Last Admin: 01/31/23 21:27 Dose: Not Given Morphine Sulfate (Morphine Sulfate 2 Mg/Ml Cartridge) 2 mg IVPUSH Q4H PRN; Protocol PRN Reason: Pain, Severe (Pain Scale 7-10) Last Admin: 02/01/23 01:55 Dose: 2 mg Ondansetron HCl (Ondansetron Hcl 4 Mg/2 Ml Vial) 4 mg IVPUSH Q8H PRN PRN Reason: Nausea and Vomiting Last Admin: 02/01/23 01:55 Dose: 4 mg Pantoprazole Sodium (Pantoprazole Sodium 40 Mg/10 Ml Vial) 40 mg IVPUSH BID@0630,1630 [facility] Pharmacy Consult (Consult Rx Perform Med Rec) 1 each MISCELLANE ONCE PRN PRN Reason: Consult order Pharmacy Consult (Consult Rx Vancomycin Dosing) 1 each MISCELLANE DAILY PRN PRN Reason: Consult order Scopolamine (Scopolamine 1.5 Mg Patch.Td.3) 1.5 mg TRANSDERMA Q3D [facility] Last Admin: 01/31/23 19:04 Dose: 1.5 mg Sodium Chloride (0.9 % Sodium Chloride Flush 3 Ml Syringe) 3 ml IVFLUSH QSHIFT [facility] Last Admin: 01/31/23 21:35 Dose: 3 ml Trimethoprim/Sulfamethoxazole (Sulfameth/Trimet 800/160/20 Ml 20 Ml Oral.Susp) 20 ml PO MoWeFr@0900 [facility] Home Medications Medication Instructions Recorded Confirmed Last Taken Type acetaminophen 325 mg tablet 650 mg feeding tube Q4H PRN Fever 01/02/23 01/31/23 01/02/23 08:00 History Or Pain acetaminophen 650 mg rectal 650 mg SD Q4-6H PRN fever or pain 01/02/23 01/31/23 Unknown History suppository albuterol sulfate 2.5 mg/3 mL 2.5 mg inhalation Q4H PRN 01/02/23 01/31/23 Unknown History (0.083 %) solution for nebulization Shortness Of Breath Or Wheezing ascorbic acid (vitamin C) 250 mg 250 mg feeding tube DAILY 01/02/23 01/31/23 01/02/23 08:00 History tablet atovaquone 750 mg/5 mL oral 750 mg feeding tube BID 01/02/23 01/31/23 01/02/23 08:00 History suspension baclofen 10 mg tablet 5 mg feeding tube TID 01/02/23 01/31/23 01/02/23 05:22 History bisacodyl 10 mg rectal suppository 10 mg SD DAILY PRN Constipation 01/02/23 01/31/23 Unknown History chlorhexidine gluconate 0.12 % 15 ml buccal BID 01/02/23 01/31/23 01/02/23 08:00 History mouthwash cholecalciferol (vitamin D3) 1,250 1,250 mcg feeding tube QMONTH 01/02/23 01/31/23 01/27/23 History mcg (50,000 unit) tablet cholestyramine-aspartame 4 gram 4 g feeding tube DAILY 01/02/23 01/31/23 01/02/23 08:00 History oral powder for susp in a packet (Cholestyramine Light) collagenase clostridium histo. 250 1 appl topical BID 01/02/23 01/31/23 01/02/23 08:00 History unit/gram topical ointment doxazosin 1 mg tablet 1 mg feeding tube BEDTIME 01/02/23 01/31/23 01/02/23 08:00 History famotidine 20 mg tablet 20 mg feeding tube BID 01/02/23 01/31/23 01/02/23 08:00 History ferrous sulfate 300 mg (60 mg 300 mg feeding tube DAILY 01/02/23 01/31/23 01/02/23 08:00 History iron)/5 mL oral liquid finasteride 5 mg tablet 5 mg feeding tube DAILY 01/02/23 01/31/23 01/02/23 08:00 History glycopyrrolate 1 mg tablet 1 mg feeding tube TID 01/02/23 01/31/23 01/02/23 05:00 History guaifenesin 200 mg/5 mL oral liquid 200 mg feeding tube Q4H PRN Cough 01/02/23 01/31/23 Unknown History lacosamide 200 mg tablet 200 mg feeding tube BID 01/02/23 01/31/23 01/02/23 08:00 History leucovorin calcium 25 mg tablet 25 mg feeding tube BEDTIME 01/02/23 01/31/23 Unknown History loperamide 2 mg capsule 2 mg feeding tube Q4H PRN Diarrhea 01/02/23 01/31/23 Unknown History lorazepam 0.5 mg tablet 0.5 mg feeding tube Q6H PRN Anxiety 01/02/23 01/31/23 01/02/23 00:48 History lorazepam 2 mg/mL injection See Rx Instructions .Route .COMPLEX 01/02/23 01/31/23 Unknown History solution magnesium hydroxide 400 mg/5 mL 30 ml feeding tube DAILY PRN 01/02/23 01/31/23 Unknown History oral suspension (Milk of Magnesia) Constipation melatonin 3 mg tablet 3 mg feeding tube BEDTIME 01/02/23 01/31/23 Unknown History midodrine 5 mg tablet 7.5 mg feeding tube TID 01/02/23 01/31/23 01/02/23 05:00 History morphine 10 mg/5 mL oral solution 5 mg feeding tube BID 01/02/23 01/31/23 01/02/23 08:00 History ondansetron HCl 2 mg/mL 4 mg IM Q4H PRN Nausea And Vomiting 01/02/23 01/31/23 Unknown History intravenous solution ondansetron HCl 4 mg tablet 4 mg feeding tube Q4H PRN Nausea 01/02/23 01/31/23 Unknown History And Vomiting oxycodone 5 mg tablet 5 mg feeding tube Q4H PRN Moderate 01/02/23 01/31/23 Unknown History Pain (Scale Score 5-6) scopolamine base 1 mg over 3 days 1 patch transdermal Q3D 01/02/23 01/31/23 Unknown History transdermal patch sennosides 8.6 mg-docusate sodium 1 tab-cap PO BID 01/02/23 01/31/23 01/02/23 08:00 History 50 mg tablet (Senna with Docusate Sodium) sodium phosphates 19 gram-7 118 ml SD DAILY PRN Constipation 01/02/23 01/31/23 Unknown History gram/118 mL enema (Fleet Enema) tramadol 50 mg tablet 50 mg PO Q4H PRN Pain 01/02/23 01/31/23 Unknown History zinc sulfate 50 mg zinc (220 mg) 50 mg feeding tube BEDTIME 01/02/23 01/31/23 Unknown History tablet Saccharomyces boulardii 250 mg 250 mg PO BID 01/31/23 01/31/23 Unknown History capsule (Florastor) multivitamin 1 tab PO DAILY 01/31/23 01/31/23 Unknown History pyrimethamine 25 mg tablet 25 mg PO DAILY 01/31/23 01/31/23 Unknown History Physical Exam Vital Signs: Vital Signs: Last Vital Signs Temp 99.1 F 02/01/23 07:39 Pulse 104 H 02/01/23 07:39 Resp 16 02/01/23 07:39 BP 109/67 02/01/23 07:39 Pulse Ox 96 02/01/23 07:39 O2 Del Method Venturi Mask 02/01/23 07:39 O2 Flow Rate 10 02/01/23 07:39 FiO2 40 02/01/23 07:39 Oxygen Flow Rate 10 01/31/23 05:26 BMI result Body Mass Index 19.2 Const: Other: Constitutional : asleep, not in distress, somnolent Neck : Normal inspection, Supple, trach with coffee ground residual Cardiovascular : RRR, no JVP, no lower extremity edema Respiratory : dimished BS Gastrointestinal: soft Skin : Warm Neurological : somnolent Results Laboratory Findings 02/01/23 06:23 02/01/23 06:23 ABG, PT/INR, D-dimer: PT/INR, D-dimer PT 12.7 SEC (10.0-13.1) 01/31/23 08:04 INR 1.1 (0.9-1.1) 01/31/23 08:04 Abnormal lab findings: Abnormal Labs 01/31/23 01/31/23 01/31/23 08:03 08:03 08:04 WBC 12.1 H RBC 3.86 L Hgb 10.6 L Hct 35.0 L MCHC 30.3 L RDW 19.2 H Plt Count Neut % (Auto) 86.3 H Lymph % (Auto) 4.5 L Lymph # (Auto) 0.5 L Abs Immat Gran (auto) 0.04 H Absolute Neuts (auto) 10.5 H VBG pH VBG HCO3 Chloride Carbon Dioxide 32 H Anion Gap BUN 27 H Random Glucose 137 H Lactic Acid 3.4 H* Alkaline Phosphatase 150 H Total Protein Albumin Random Vancomycin 01/31/23 01/31/23 02/01/23 09:26 15:22 06:23 WBC RBC 3.00 L D Hgb 8.2 L D Hct 27.6 L D MCHC 29.7 L RDW 19.8 H Plt Count 150 L Neut % (Auto) Lymph % (Auto) Lymph # (Auto) Abs Immat Gran (auto) Absolute Neuts (auto) VBG pH 7.52 H VBG HCO3 33 H Chloride Carbon Dioxide Anion Gap BUN Random Glucose Lactic Acid Alkaline Phosphatase Total Protein Albumin Random Vancomycin 13.8 L 02/01/23 06:23 WBC RBC Hgb Hct MCHC RDW Plt Count Neut % (Auto) Lymph % (Auto) Lymph # (Auto) Abs Immat Gran (auto) Absolute Neuts (auto) VBG pH VBG HCO3 Chloride 111 H Carbon Dioxide Anion Gap 11 L BUN 38 H Random Glucose 138 H Lactic Acid Alkaline Phosphatase 122 H Total Protein 5.9 L Albumin 2.9 L Random Vancomycin Microbiology: Microbiology 01/31/23 07:58 Sputum - Suctioned Gram Stain - Final 01/31/23 07:58 Sputum - Suctioned Sputum Culture - Preliminary Culture in progress. Assessment and Plan (1) Acute and chronic respiratory failure with hypoxia: Status: Acute (2) Aspiration pneumonia: Status: Acute Plan Clinically the patient is doing better. Likely aspiration pneumonitis/PNA. Likely UGIB with coffee ground aspirations. REC: HOB elevated trach care GI evaluation repeat CXR, if worsened CT chest Consider bronchoscopy if condition worsens Time Spent With Patient Time: Total time managing care of this patient today ____ minutes. Procedures Date of Service Date of Service: 02/01/23
--- NOTE | 2023-02-01 11:33 | P.PNIM_ITS ---
Subjective Subjective Date of Service: 02/01/23 Interval History: Seen and evaluated this morning No reported vomiting overnight O2 supplement down to 10L, 40% NPO for possible EGD today No other overnight events Review of Systems Review of Systems: Yes Unobtainable due to mental condition Physical Exam Vital Signs: Vital Signs: Last Vital Signs Temp 99.1 F 02/01/23 07:39 Pulse 104 H 02/01/23 07:39 Resp 16 02/01/23 07:39 BP 109/67 02/01/23 07:39 Pulse Ox 96 02/01/23 07:39 O2 Del Method Venturi Mask 02/01/23 07:39 O2 Flow Rate 10 02/01/23 07:39 FiO2 40 02/01/23 07:39 Oxygen Flow Rate 10 01/31/23 05:26 BMI result Body Mass Index 19.2 Const: Other: Constitutional : Awake,? not in distress Neck : Normal inspection, Supple Cardiovascular : RRR, no JVP, no lower extremity edema Respiratory : fair bilateral air entry,? basal bilateral crackles, Trach with no significant secretions. on Trach mask Gastrointestinal:? soft, lax, Normal bowel sounds, G-tube in place, no significant tenderness Skin : Warm, Dry, decubetus ulcers, deep on the side with large puncture, dark discolored skin buttock area Neurological : Alert, No focal deficit but retracted Objective Data Active Medications Acetaminophen (Acetaminophen 325 Mg Tablet) 650 mg G-TUBE Q6H PRN PRN Reason: Pain, Mild (Pain Scale 1-3) Albuterol Sulfate (Albuterol Sulfate (0.083%) 2.5 Mg/3 Ml Vial.Neb) 2.5 mg INHALE Q4H PRN PRN Reason: Shortness Of Breath Or Wheezing Atovaquone (Atovaquone 750 Mg/5 Ml Oral.Susp) 750 mg G-TUBE BID [facility] Last Admin: 01/31/23 21:27 Dose: Not Given Documented By: BALJINDER Non-Admin Reason: NPO Chlorhexidine Gluconate (Chlorhexidine Gluc Oral Rinse 15 Ml Mouthwash) 15 ml BUCCAL BID [facility] Last Admin: 01/31/23 21:27 Dose: Not Given Documented By: BALJINDER Non-Admin Reason: NPO Doxazosin Mesylate (Doxazosin Mesylate 1 Mg Tablet) 1 mg G-TUBE BEDTIME [facility]; Protocol Last Admin: 01/31/23 21:27 Dose: Not Given Documented By: BALJINDER Non-Admin Reason: NPO Finasteride (Finasteride 5 Mg Tablet) 5 mg PO DAILY [facility] Piperacillin Sod/Tazobactam (Sod 3.375 gm/ Sodium Chloride) 50 mls @ 100 mls/hr IV Q6H [facility] Last Admin: 02/01/23 09:23 Dose: 100 mls/hr Documented By: JEANNETTE Vancomycin HCl 1,000 mg/ (Sodium Chloride) 270 mls @ 270 mls/hr IV Q12H [facility] Last Infusion: 02/01/23 07:16 Dose: 0 mls/hr Documented By: BALJINDER Lacosamide (Lacosamide 100 Mg Tablet) 200 mg G-TUBE BID [facility] Last Admin: 01/31/23 21:27 Dose: Not Given Documented By: BALJINDER Non-Admin Reason: NPO Loperamide HCl (Loperamide Hcl 2 Mg Capsule) 2 mg G-TUBE Q4H PRN PRN Reason: Diarrhea Lorazepam (Lorazepam 2 Mg/Ml Vial) 2 mg IM DAILY PRN PRN Reason: SIEZURE > 5 MINUTES Lorazepam (Lorazepam 0.5 Mg Tablet) 0.5 mg G-TUBE Q6H PRN PRN Reason: Anxiety Methylprednisolone Sodium Succinate (Methylprednisolone Sod Succ 40 Mg/Ml Vial) 40 mg IVPUSH Q8H [facility] Last Admin: 02/01/23 09:18 Dose: 40 mg Documented By: JEANNETTE Midodrine (Midodrine Hcl 2.5 Mg Tablet) 7.5 mg G-TUBE TID [facility] Last Admin: 01/31/23 21:27 Dose: Not Given Documented By: BALJINDER Non-Admin Reason: NPO Morphine Sulfate (Morphine Sulfate 2 Mg/Ml Cartridge) 2 mg IVPUSH Q4H PRN; Protocol PRN Reason: Pain, Severe (Pain Scale 7-10) Last Admin: 02/01/23 01:55 Dose: 2 mg Documented By: BALJINDER Ondansetron HCl (Ondansetron Hcl 4 Mg/2 Ml Vial) 4 mg IVPUSH Q8H PRN PRN Reason: Nausea and Vomiting Last Admin: 02/01/23 01:55 Dose: 4 mg Documented By: BALJINDER Pantoprazole Sodium (Pantoprazole Sodium 40 Mg/10 Ml Vial) 40 mg IVPUSH BID@0630,1630 [facility] Last Admin: 02/01/23 09:18 Dose: 40 mg Documented By: JEANNETTE Pharmacy Consult (Consult Rx Perform Med Rec) 1 each MISCELLANE ONCE PRN PRN Reason: Consult order Pharmacy Consult (Consult Rx Vancomycin Dosing) 1 each MISCELLANE DAILY PRN PRN Reason: Consult order Scopolamine (Scopolamine 1.5 Mg Patch.Td.3) 1.5 mg TRANSDERMA Q3D [facility] Last Admin: 01/31/23 19:04 Dose: 1.5 mg Documented By: ROBBIE Sodium Chloride (0.9 % Sodium Chloride Flush 3 Ml Syringe) 3 ml IVFLUSH QSHIFT [facility] Last Admin: 02/01/23 09:19 Dose: 3 ml Documented By: JEANNETTE Trimethoprim/Sulfamethoxazole (Sulfameth/Trimet 800/160/20 Ml 20 Ml Oral.Susp) 20 ml PO MoWeFr@0900 [facility] Labs 02/01/23 06:23 02/01/23 06:23 Labs: Laboratory Results - last 24 hr 01/31/23 01/31/23 01/31/23 15:22 15:22 16:48 MCV MCH MCHC RDW Plt Count MPV Absolute Nucleated RBC Nucleated RBC % (auto) Anion Gap Estim Creat Clear Calc 85.0 Estimated GFR > 60 Random Glucose Calcium Total Bilirubin AST ALT Alkaline Phosphatase Total Protein Albumin Gastric Occult Blood POSITIVE Random Vancomycin 13.8 L Blood Type Antibody Screen 02/01/23 02/01/23 02/01/23 06:23 06:23 09:11 MCV 92.0 MCH 27.3 MCHC 29.7 L RDW 19.8 H Plt Count 150 L MPV 10.7 Absolute Nucleated RBC 0.000 Nucleated RBC % (auto) 0.0 Anion Gap 11 L Estim Creat Clear Calc 72.1 Estimated GFR > 60 Random Glucose 138 H Calcium 8.6 D Total Bilirubin 0.5 AST 12 ALT 14 Alkaline Phosphatase 122 H Total Protein 5.9 L Albumin 2.9 L Gastric Occult Blood Random Vancomycin Blood Type O Positive Antibody Screen NEGATIVE Microbiology Microbiology Results: Microbiology 01/31/23 08:00 Blood Culture - Preliminary Blood - Venous No growth after 24 hours. 01/31/23 08:00 Blood Culture - Preliminary Blood - Venous No growth after 24 hours. 01/31/23 07:58 Gram Stain - Final Sputum - Suctioned Sputum Culture - Preliminary Culture in progress. Assessment and Plan (1) Positive occult stool blood test: Status: Acute (2) Acute and chronic respiratory failure with hypoxia: Status: Acute (3) Aspiration pneumonia: Status: Acute (4) Sepsis: Status: Acute (5) Stage IV decubitus ulcer: Status: Acute (6) Osteomyelitis of pelvis: Status: Acute (7) Acute on chronic blood loss anemia: Status: Acute Plan ?a 52-year-old male with a PMH significant for?stage IV mantle cell lymphoma, [employer] toxoplasmosis, acute on chronic respiratory failure with trach in place on 35% trach mask, normocytic anemia, BPH, urinary retention with chronic catheter in place, seizure disorder, G-tube in place, Pelvic OM on Vancomycin who presents to the ED from [facility] for evaluation of?Hypoxia and dark secretion from his trach. Sepsis in the setting of acute on chronic Hypoxic respiratory failure 2/2 aspiration pneumonitis\pneumonia leukocytosis , tachypnea and tachycardia pending cultures Continue IV Abx of Zosyn Continue IV Methylprednisolone Pulm consult wean O2 down as tolerated Acute on chronic blood loss anemia 2/2 GI bleed H&H dropped from 10 to 8, vitals stable Positive occult stool/Gastric fluids GI to do Endoscopy today monitor H&H Transfusion if <7 chronic OM of pelvis covered by vancomycin IV, plan for 6 weeks iv vanc (end february 06, 2023) Vanco 1 gm q12 follow Vancomycin trough Stage IV mantle cell lymphoma in remission [employer] toxoplasmosis due to immunosuppression from treatement for mantle cell 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 Time Spent With Patient Time: Total time managing care of this patient today ____ minutes. Quality Stroke Does the patient have a stroke diagnosis?: No VTE Prior VTE?: No VTE Risk Level:: Medical - moderate - high VTE Device Contraindication: N/A - Device Ordered VTE Drug Contraindication: Treatment Not Indicated
--- NOTE | 2023-02-01 12:42 | HO.ANESPROP2 ---
[facility] Active Problems Active Problems: All Active Problems (Updated 02/01/23 @ 11:40 by Patrick Pineda MD) Acute on chronic blood loss anemia (Acute) Positive occult stool blood test (Acute) Acute and chronic respiratory failure with hypoxia (Acute) Aspiration pneumonia (Acute) Sepsis (Acute) Acute hypernatremia (Acute) Stage IV decubitus ulcer (Acute) Osteomyelitis of pelvis (Acute) Family history of colon cancer (Acute) Rectal bleeding (Acute) Mantle cell lymphoma (Acute) Past Medical History Medical History Anemia Appendicitis Chronic pain [employer] lymphoma Depression Encephalopathy H/O: RCT (rotator cuff tear) Kidney stone Mantle cell lymphoma Rectal bleeding Toxoplasmosis Functional capacity: bed bound Family History Family History Mother COPD (chronic obstructive pulmonary disease) Sister Colon cancer Surgical History Surgical History History of appendectomy Social History Social History Household Members: Unknown / Unable to assess Housing: Other Housing Other:: [facility] Unable to assess alcohol history related to: Unable to respond Alcohol intake: unknown Patient Tobacco Use Status: Never used Tobacco Substance Use Type: Marijuana service: No Current occupational status: unemployed Meds Allergies Allergy/AdvReac Type Severity Reaction Status Date / Time cyclobenzaprine [Flexeril] Allergy Unknown Palpitation Verified 09/22/20 15:41 s Active Medications: Current Medications Acetaminophen (Acetaminophen 325 Mg Tablet) 650 mg G-TUBE Q6H PRN PRN Reason: Pain, Mild (Pain Scale 1-3) Albuterol Sulfate (Albuterol Sulfate (0.083%) 2.5 Mg/3 Ml Vial.Neb) 2.5 mg INHALE Q4H PRN PRN Reason: Shortness Of Breath Or Wheezing Atovaquone (Atovaquone 750 Mg/5 Ml Oral.Susp) 750 mg G-TUBE BID [facility] Last Admin: 01/31/23 21:27 Dose: Not Given Chlorhexidine Gluconate (Chlorhexidine Gluc Oral Rinse 15 Ml Mouthwash) 15 ml BUCCAL BID [facility] Last Admin: 01/31/23 21:27 Dose: Not Given Doxazosin Mesylate (Doxazosin Mesylate 1 Mg Tablet) 1 mg G-TUBE BEDTIME [facility]; Protocol Last Admin: 01/31/23 21:27 Dose: Not Given Finasteride (Finasteride 5 Mg Tablet) 5 mg PO DAILY [facility] Piperacillin Sod/Tazobactam (Sod 3.375 gm/ Sodium Chloride) 50 mls @ 100 mls/hr IV Q6H [facility] Last Admin: 02/01/23 09:23 Dose: 100 mls/hr Vancomycin HCl 1,000 mg/ (Sodium Chloride) 270 mls @ 270 mls/hr IV Q12H [facility] Last Infusion: 02/01/23 07:16 Dose: Infused Lacosamide (Lacosamide 100 Mg Tablet) 200 mg G-TUBE BID [facility] Last Admin: 01/31/23 21:27 Dose: Not Given Loperamide HCl (Loperamide Hcl 2 Mg Capsule) 2 mg G-TUBE Q4H PRN PRN Reason: Diarrhea Lorazepam (Lorazepam 2 Mg/Ml Vial) 2 mg IM DAILY PRN PRN Reason: SIEZURE > 5 MINUTES Lorazepam (Lorazepam 0.5 Mg Tablet) 0.5 mg G-TUBE Q6H PRN PRN Reason: Anxiety Methylprednisolone Sodium Succinate (Methylprednisolone Sod Succ 40 Mg/Ml Vial) 40 mg IVPUSH Q8H [facility] Last Admin: 02/01/23 09:18 Dose: 40 mg Midodrine (Midodrine Hcl 2.5 Mg Tablet) 7.5 mg G-TUBE TID [facility] Last Admin: 01/31/23 21:27 Dose: Not Given Morphine Sulfate (Morphine Sulfate 2 Mg/Ml Cartridge) 2 mg IVPUSH Q4H PRN; Protocol PRN Reason: Pain, Severe (Pain Scale 7-10) Last Admin: 02/01/23 01:55 Dose: 2 mg Ondansetron HCl (Ondansetron Hcl 4 Mg/2 Ml Vial) 4 mg IVPUSH Q8H PRN PRN Reason: Nausea and Vomiting Last Admin: 02/01/23 01:55 Dose: 4 mg Pantoprazole Sodium (Pantoprazole Sodium 40 Mg/10 Ml Vial) 40 mg IVPUSH BID@0630,1630 [facility] Last Admin: 02/01/23 09:18 Dose: 40 mg Pharmacy Consult (Consult Rx Perform Med Rec) 1 each MISCELLANE ONCE PRN PRN Reason: Consult order Pharmacy Consult (Consult Rx Vancomycin Dosing) 1 each MISCELLANE DAILY PRN PRN Reason: Consult order Scopolamine (Scopolamine 1.5 Mg Patch.Td.3) 1.5 mg TRANSDERMA Q3D [facility] Last Admin: 01/31/23 19:04 Dose: 1.5 mg Sodium Chloride (0.9 % Sodium Chloride Flush 3 Ml Syringe) 3 ml IVFLUSH QSHIFT [facility] Last Admin: 02/01/23 09:19 Dose: 3 ml Trimethoprim/Sulfamethoxazole (Sulfameth/Trimet 800/160/20 Ml 20 Ml Oral.Susp) 20 ml PO MoWeFr@0900 [facility] Home Medications Medication Instructions Recorded Confirmed Last Taken Type acetaminophen 325 mg tablet 650 mg feeding tube Q4H PRN Fever 01/02/23 01/31/23 01/02/23 08:00 History Or Pain acetaminophen 650 mg rectal 650 mg MD Q4-6H PRN fever or pain 01/02/23 01/31/23 Unknown History suppository albuterol sulfate 2.5 mg/3 mL 2.5 mg inhalation Q4H PRN 01/02/23 01/31/23 Unknown History (0.083 %) solution for nebulization Shortness Of Breath Or Wheezing ascorbic acid (vitamin C) 250 mg 250 mg feeding tube DAILY 01/02/23 01/31/23 01/02/23 08:00 History tablet atovaquone 750 mg/5 mL oral 750 mg feeding tube BID 01/02/23 01/31/23 01/02/23 08:00 History suspension baclofen 10 mg tablet 5 mg feeding tube TID 01/02/23 01/31/23 01/02/23 05:22 History bisacodyl 10 mg rectal suppository 10 mg MD DAILY PRN Constipation 01/02/23 01/31/23 Unknown History chlorhexidine gluconate 0.12 % 15 ml buccal BID 01/02/23 01/31/23 01/02/23 08:00 History mouthwash cholecalciferol (vitamin D3) 1,250 1,250 mcg feeding tube QMONTH 01/02/23 01/31/23 01/27/23 History mcg (50,000 unit) tablet cholestyramine-aspartame 4 gram 4 g feeding tube DAILY 01/02/23 01/31/23 01/02/23 08:00 History oral powder for susp in a packet (Cholestyramine Light) collagenase clostridium histo. 250 1 appl topical BID 01/02/23 01/31/23 01/02/23 08:00 History unit/gram topical ointment doxazosin 1 mg tablet 1 mg feeding tube BEDTIME 01/02/23 01/31/23 01/02/23 08:00 History famotidine 20 mg tablet 20 mg feeding tube BID 01/02/23 01/31/23 01/02/23 08:00 History ferrous sulfate 300 mg (60 mg 300 mg feeding tube DAILY 01/02/23 01/31/23 01/02/23 08:00 History iron)/5 mL oral liquid finasteride 5 mg tablet 5 mg feeding tube DAILY 01/02/23 01/31/23 01/02/23 08:00 History glycopyrrolate 1 mg tablet 1 mg feeding tube TID 01/02/23 01/31/23 01/02/23 05:00 History guaifenesin 200 mg/5 mL oral liquid 200 mg feeding tube Q4H PRN Cough 01/02/23 01/31/23 Unknown History lacosamide 200 mg tablet 200 mg feeding tube BID 01/02/23 01/31/23 01/02/23 08:00 History leucovorin calcium 25 mg tablet 25 mg feeding tube BEDTIME 01/02/23 01/31/23 Unknown History loperamide 2 mg capsule 2 mg feeding tube Q4H PRN Diarrhea 01/02/23 01/31/23 Unknown History lorazepam 0.5 mg tablet 0.5 mg feeding tube Q6H PRN Anxiety 01/02/23 01/31/23 01/02/23 00:48 History lorazepam 2 mg/mL injection See Rx Instructions .Route .COMPLEX 01/02/23 01/31/23 Unknown History solution magnesium hydroxide 400 mg/5 mL 30 ml feeding tube DAILY PRN 01/02/23 01/31/23 Unknown History oral suspension (Milk of Magnesia) Constipation melatonin 3 mg tablet 3 mg feeding tube BEDTIME 01/02/23 01/31/23 Unknown History midodrine 5 mg tablet 7.5 mg feeding tube TID 01/02/23 01/31/23 01/02/23 05:00 History morphine 10 mg/5 mL oral solution 5 mg feeding tube BID 01/02/23 01/31/23 01/02/23 08:00 History ondansetron HCl 2 mg/mL 4 mg IM Q4H PRN Nausea And Vomiting 01/02/23 01/31/23 Unknown History intravenous solution ondansetron HCl 4 mg tablet 4 mg feeding tube Q4H PRN Nausea 01/02/23 01/31/23 Unknown History And Vomiting oxycodone 5 mg tablet 5 mg feeding tube Q4H PRN Moderate 01/02/23 01/31/23 Unknown History Pain (Scale Score 5-6) scopolamine base 1 mg over 3 days 1 patch transdermal Q3D 01/02/23 01/31/23 Unknown History transdermal patch sennosides 8.6 mg-docusate sodium 1 tab-cap PO BID 01/02/23 01/31/23 01/02/23 08:00 History 50 mg tablet (Senna with Docusate Sodium) sodium phosphates 19 gram-7 118 ml MD DAILY PRN Constipation 01/02/23 01/31/23 Unknown History gram/118 mL enema (Fleet Enema) tramadol 50 mg tablet 50 mg PO Q4H PRN Pain 01/02/23 01/31/23 Unknown History zinc sulfate 50 mg zinc (220 mg) 50 mg feeding tube BEDTIME 01/02/23 01/31/23 Unknown History tablet Saccharomyces boulardii 250 mg 250 mg PO BID 01/31/23 01/31/23 Unknown History capsule (Florastor) multivitamin 1 tab PO DAILY 01/31/23 01/31/23 Unknown History pyrimethamine 25 mg tablet 25 mg PO DAILY 01/31/23 01/31/23 Unknown History Exam Exam Date and Time: February 01, 2023 1242 Height,Weight and Vital Signs: Height 5 ft 8 in Weight 57.153 kg Last Vital Signs Temp 97.6 F 02/01/23 11:46 Pulse 83 02/01/23 11:46 Resp 16 02/01/23 11:46 BP 106/59 L 02/01/23 11:46 Pulse Ox 94 02/01/23 11:46 O2 Del Method Venturi Mask 02/01/23 11:46 O2 Flow Rate 10 02/01/23 11:46 FiO2 40 02/01/23 11:46 Oxygen Flow Rate 10 01/31/23 05:26 Pertinent Lab Results Pertinent Lab Results: Laboratory Tests 01/31/23 01/31/23 01/31/23 08:03 08:03 08:03 WBC 12.1 H RBC 3.86 L Hgb 10.6 L Hct 35.0 L MCV 90.7 MCH 27.5 MCHC 30.3 L RDW 19.2 H Plt Count 177 MPV 10.8 Immature Gran % (Auto) 0.3 Neut % (Auto) 86.3 H Lymph % (Auto) 4.5 L [place] % (Auto) 8.7 Eos % (Auto) 0.0 Baso % (Auto) 0.2 Lymph # (Auto) 0.5 L [place] # (Auto) 1.1 Eos # (Auto) 0.0 Baso # (Auto) 0.0 Abs Immat Gran (auto) 0.04 H Absolute Neuts (auto) 10.5 H Absolute Nucleated RBC 0.000 Nucleated RBC % (auto) 0.0 PT INR APTT VBG pH VBG pCO2 VBG pO2 VBG HCO3 VBG O2 Saturation VBG Base Excess Sodium 145 Potassium 4.1 Chloride 99 Carbon Dioxide 32 H Anion Gap 18 BUN 27 H Creatinine 1.01 Estim Creat Clear Calc 70.7 Estimated GFR > 60 Random Glucose 137 H Lactic Acid Lactic Acid F/U @ 2Hr Calcium 9.7 D Magnesium 2.0 Total Bilirubin 0.6 Direct Bilirubin 0.2 AST 15 ALT 19 Alkaline Phosphatase 150 H B-Natriuretic Peptide 22 Total Protein 7.0 Albumin 3.5 Procalcitonin 0.23 Gastric Occult Blood Stool Occult Blood Random Vancomycin C. difficile Tox B Gene Blood Type Antibody Screen 01/31/23 01/31/23 01/31/23 08:04 08:04 08:10 WBC RBC Hgb Hct MCV MCH MCHC RDW Plt Count MPV Immature Gran % (Auto) Neut % (Auto) Lymph % (Auto) [place] % (Auto) Eos % (Auto) Baso % (Auto) Lymph # (Auto) [place] # (Auto) Eos # (Auto) Baso # (Auto) Abs Immat Gran (auto) Absolute Neuts (auto) Absolute Nucleated RBC Nucleated RBC % (auto) PT 12.7 INR 1.1 APTT 32.4 VBG pH VBG pCO2 VBG pO2 VBG HCO3 VBG O2 Saturation VBG Base Excess Sodium Potassium Chloride Carbon Dioxide Anion Gap BUN Creatinine Estim Creat Clear Calc Estimated GFR Random Glucose Lactic Acid 3.4 H* Lactic Acid F/U @ 2Hr Calcium Magnesium Total Bilirubin Direct Bilirubin AST ALT Alkaline Phosphatase B-Natriuretic Peptide Total Protein Albumin Procalcitonin Gastric Occult Blood Stool Occult Blood POSITIVE Random Vancomycin C. difficile Tox B Gene Blood Type Antibody Screen 01/31/23 01/31/23 01/31/23 08:10 09:26 10:44 WBC RBC Hgb Hct MCV MCH MCHC RDW Plt Count MPV Immature Gran % (Auto) Neut % (Auto) Lymph % (Auto) [place] % (Auto) Eos % (Auto) Baso % (Auto) Lymph # (Auto) [place] # (Auto) Eos # (Auto) Baso # (Auto) Abs Immat Gran (auto) Absolute Neuts (auto) Absolute Nucleated RBC Nucleated RBC % (auto) PT INR APTT VBG pH 7.52 H VBG pCO2 40 VBG pO2 33 VBG HCO3 33 H VBG O2 Saturation 47.0 VBG Base Excess 9.6 Sodium Potassium Chloride Carbon Dioxide Anion Gap BUN Creatinine Estim Creat Clear Calc Estimated GFR Random Glucose Lactic Acid Lactic Acid F/U @ 2Hr 1.7 Calcium Magnesium Total Bilirubin Direct Bilirubin AST ALT Alkaline Phosphatase B-Natriuretic Peptide Total Protein Albumin Procalcitonin Gastric Occult Blood Stool Occult Blood Random Vancomycin C. difficile Tox B Gene NEGATIVE Blood Type Antibody Screen 01/31/23 01/31/23 01/31/23 15:22 15:22 16:48 WBC RBC Hgb Hct MCV MCH MCHC RDW Plt Count MPV Immature Gran % (Auto) Neut % (Auto) Lymph % (Auto) [place] % (Auto) Eos % (Auto) Baso % (Auto) Lymph # (Auto) [place] # (Auto) Eos # (Auto) Baso # (Auto) Abs Immat Gran (auto) Absolute Neuts (auto) Absolute Nucleated RBC Nucleated RBC % (auto) PT INR APTT VBG pH VBG pCO2 VBG pO2 VBG HCO3 VBG O2 Saturation VBG Base Excess Sodium Potassium Chloride Carbon Dioxide Anion Gap BUN Creatinine 0.84 Estim Creat Clear Calc 85.0 Estimated GFR > 60 Random Glucose Lactic Acid Lactic Acid F/U @ 2Hr Calcium Magnesium Total Bilirubin Direct Bilirubin AST ALT Alkaline Phosphatase B-Natriuretic Peptide Total Protein Albumin Procalcitonin Gastric Occult Blood POSITIVE Stool Occult Blood Random Vancomycin 13.8 L C. difficile Tox B Gene Blood Type Antibody Screen 02/01/23 02/01/23 02/01/23 06:23 06:23 09:11 WBC 9.6 RBC 3.00 L D Hgb 8.2 L D Hct 27.6 L D MCV 92.0 MCH 27.3 MCHC 29.7 L RDW 19.8 H Plt Count 150 L MPV 10.7 Immature Gran % (Auto) Neut % (Auto) Lymph % (Auto) [place] % (Auto) Eos % (Auto) Baso % (Auto) Lymph # (Auto) [place] # (Auto) Eos # (Auto) Baso # (Auto) Abs Immat Gran (auto) Absolute Neuts (auto) Absolute Nucleated RBC 0.000 Nucleated RBC % (auto) 0.0 PT INR APTT VBG pH VBG pCO2 VBG pO2 VBG HCO3 VBG O2 Saturation VBG Base Excess Sodium 143 Potassium 4.0 Chloride 111 H Carbon Dioxide 25 Anion Gap 11 L BUN 38 H Creatinine 0.99 Estim Creat Clear Calc 72.1 Estimated GFR > 60 Random Glucose 138 H Lactic Acid Lactic Acid F/U @ 2Hr Calcium 8.6 D Magnesium Total Bilirubin 0.5 Direct Bilirubin AST 12 ALT 14 Alkaline Phosphatase 122 H B-Natriuretic Peptide Total Protein 5.9 L Albumin 2.9 L Procalcitonin Gastric Occult Blood Stool Occult Blood Random Vancomycin C. difficile Tox B Gene Blood Type O Positive Antibody Screen NEGATIVE
--- NOTE | 2023-02-01 14:59 | PC.NURSE ---
All questions documented in [employer] are from answers from HCP that we spoke to over the telephone. Anesthesia and surgical consents completed via telephone with HCP, Cornelius Johnson. Patient suctioned by respiratory prior to coming to [facility]. NPO status verified with floor RN. Rubio catheter emptied upon arrival to [facility]. Line to right arm flushed and patent.
--- NOTE | 2023-02-01 15:04 | PC.NURSE ---
unable to assess pain. patient appeared comfortable in bed. no grimacing. following staff with eyes.
--- NOTE | 2023-02-01 15:19 | P.OP_ITS ---
Operative Note Operative Note Date of Service: 02/01/23 Narrative: Procedure: Esophagogastroduodenoscopy Endoscopist: Margarita Espinosa MD Indication: UGIB Anesthesia Provider: Dr Cathy Vogel Anesthesia Type: General (pt with chronic tracheostomy) ?? EGD Procedure:?? The procedure, indications, preparation and potential complications were reviewed with the patient's HCP, who indicated understanding and gave written informed consent to proceed. A physical exam was performed. The trach was changed to a cuffed shiley by the anesthesia provider. The endoscope was introduced through the mouth, and advanced to the second part of duodenum. The mucosa was carefully examined on slow withdrawal of the endoscope. The patient tolerated the procedure well. There were no immediate complications.? ? EGD Findings:? * Esophagus:? Linear ulcerations seen in the lower esophagus consistent with Grade C esophagitis. Cold forceps biopsies were taken to r/o viral/infectious esophagitis. * Stomach:? Old blood in body of the stomach that was suctioned. Mild antral gastritis without stigmata of bleeding. PEG site without any ulceration. * Duodenum:? Normal mucosa was noted in the whole of the examined duodenum. No mucosal bleeding or bleeding from major papilla bleeding was noted. ? EGD Impressions:? * Grade C esophagitis (biopsy) * Mild antral gastritis * Normal duodenum ?? Recommendations:?? * Follow biopsy results. * Continue PO omeprazole BID x 8 weeks and then once daily (can give liquid suspension through G tube followed by water flush) * Start liquid sucralfate 1g QID x 2 weeks * Elevate HOB to mitigate reflux * Avoid NSAIDs.
[2023-02-01] MEDS: Midodrine HCl 2.5 MG TABLET 7.5 MG G-TUBE (17:18)
[2023-02-01] MEDS: Sucralfate Oral Suspension 1 GM/10 ML ORAL.SUSP PO ×2 (17:19→20:21)
[2023-02-01] MEDS: Omeprazole/Na Bicarb Oral Susp 20 MG/10 ML UD Cup 40 MG G-TUBE (18:09)
[2023-02-01 19:15] LABS: Hematocrit 27.4 % (42.0-52.0); Hemoglobin 8.2 g/dl (14.0-18.0); Mean Corpuscular HGB Conc 29.9 g/dl (31.0-36.0); Mean Corpuscular Hemoglobin 27.6 pg (27.0-33.0); Mean Corpuscular Volume 92.3 fL (80.0-98.0); Mean Platelet Volume 10.3 fL (9.4-12.4); Platelet Count 164 X10*3/uL (160-400); Red Blood Count 2.97 X10*6/uL (4.60-5.80); Red Cell Distribution Width 19.4 % (11.0-16.0); White Blood Count 8.8 X10*3/uL (4.8-10.8)
[2023-02-01 19:43] LABS: Vancomycin Random 47.8 mcg/mL (15-20)
[2023-02-01] MEDS: Doxazosin Mesylate 1 MG TABLET G-TUBE (20:08)
[2023-02-01] MEDS: Lacosamide 100 MG TABLET 200 MG G-TUBE (20:11)
[2023-02-02] VITALS (7 sets, daily range): BP systolic 86–110; BP diastolic 53–66; PULSE 52–93; RESP 16–20; TEMP 36–36.4; O2SAT 88–98
[2023-02-02] MEDS: Piperacillin Sodium/Tazobactam 3.375 GM in 0.9 % Sodium Chloride 50 ML IV ×4 (02:06→21:44)
[2023-02-02 04:29] LABS: Hematocrit 25.9 % (42.0-52.0); Hemoglobin 7.7 g/dl (14.0-18.0); Mean Corpuscular HGB Conc 29.7 g/dl (31.0-36.0); Mean Corpuscular Hemoglobin 27.5 pg (27.0-33.0); Mean Corpuscular Volume 92.5 fL (80.0-98.0); Mean Platelet Volume 10.1 fL (9.4-12.4); Platelet Count 115 X10*3/uL (160-400); Red Cell Distribution Width 19.4 % (11.0-16.0); White Blood Count 5.4 X10*3/uL (4.8-10.8)
[2023-02-02 04:51] LABS: Vancomycin Random 20.3 mcg/mL (15-20)
[2023-02-02 04:52] LABS: Anion Gap 13 (12-20); Blood Urea Nitrogen 35 mg/dL (9-16); Carbon Dioxide 26 mmol/L (22-29); Chloride 113 mmol/L (96-108); Creatinine Clr Calc Pharmacy 69.3; Estimated Glomerular Filt Rate > 60; Glucose Random 109 mg/dL (60-115); Potassium 3.8 mmol/L (3.3-5.1); Sodium 148 mmol/L (135-145)
[2023-02-02] MEDS: vancomycin HCL 1,000 MG in 0.9 % Sodium Chloride 250 ML 270 MG IV (05:55)
[2023-02-02] MEDS: Omeprazole/Na Bicarb Oral Susp 20 MG/10 ML UD Cup 40 MG G-TUBE ×2 (05:55→16:45)
--- NOTE | 2023-02-02 06:17 | HE.PHANOTE ---
RE VANCO TROUGH WAS 20.3. WILL GET ANOTHER RANDOM TOMORROW. SCR REMAINS STABLE. 1000MG DOSE WAS GIVEN TODAY. WILL CHANGE TO 500MG X2 DOSES AND CHECK LEVEL PETRA
--- NOTE | 2023-02-02 07:23 | PC.NURSE ---
critical vanco trough 47.8. redraw ordered at 04:00, results were 20.3. per overnight pharmacist okay to hang vanco.
[2023-02-02] MEDS: 0.9 % Sodium Chloride Flush 3 ML SYRINGE IVFLUSH ×3 (07:29→21:46)
[2023-02-02] MEDS: Sucralfate Oral Suspension 1 GM/10 ML ORAL.SUSP PO ×4 (07:30→21:47)
[2023-02-02] MEDS: Dextrose 5 % 1,000 ML 125 ML IVCONT ×2 (09:44→18:14)
[2023-02-02] MEDS: Midodrine HCl 2.5 MG TABLET 7.5 MG G-TUBE ×3 (10:35→21:46)
[2023-02-02] MEDS: methylPREDNISolone Sod Succ 40 MG/ML VIAL IVPUSH (10:35)
[2023-02-02] MEDS: Sulfameth/Trimet 800/160/20 ML 20 ML ORAL.SUSP PO (10:35)
[2023-02-02] MEDS: Lacosamide 100 MG TABLET 200 MG G-TUBE ×2 (10:35→21:46)
[2023-02-02] MEDS: Finasteride 5 MG TABLET PO (10:35)
[2023-02-02] MEDS: Chlorhexidine Gluc Oral Rinse 15 ML MOUTHWASH BUCCAL (10:36)
[2023-02-02] MEDS: Atovaquone 750 MG/5 ML ORAL.SUSP G-TUBE ×2 (10:36→21:47)
--- NOTE | 2023-02-02 13:06 | P.PNIM_ITS ---
Subjective Subjective Date of Service: 02/02/23 Interval History: Seen and evaluated this morning No reported vomiting overnight improving O2 supplement down to 5L No other overnight events Review of Systems Review of Systems: Yes Unobtainable due to mental condition Physical Exam Vital Signs: Vital Signs: Last Vital Signs Temp 97.3 F 02/02/23 11:16 Pulse 76 02/02/23 11:16 Resp 20 02/02/23 11:16 BP 110/60 02/02/23 11:16 Pulse Ox 90 L 02/02/23 11:16 O2 Del Method Trach Collar 02/02/23 11:16 O2 Flow Rate 5 02/02/23 11:16 FiO2 28 02/02/23 03:33 Oxygen Flow Rate 10 01/31/23 05:26 BMI result Body Mass Index 19.2 Const: Other: Constitutional : Awake,? not in distress Neck : Normal inspection, Supple Cardiovascular : RRR, no JVP, no lower extremity edema Respiratory : fair bilateral air entry,? basal bilateral crackles, Trach with no significant secretions. on Trach mask Gastrointestinal:? soft, lax, Normal bowel sounds, G-tube in place, no significant tenderness Skin : Warm, Dry, decubetus ulcers, deep on the side with large puncture, dark discolored skin buttock area Neurological : Alert, No focal deficit but retracted Objective Data Active Medications Acetaminophen (Acetaminophen 325 Mg Tablet) 650 mg G-TUBE Q6H PRN PRN Reason: Pain, Mild (Pain Scale 1-3) Albuterol Sulfate (Albuterol Sulfate (0.083%) 2.5 Mg/3 Ml Vial.Neb) 2.5 mg INHALE Q4H PRN PRN Reason: Shortness Of Breath Or Wheezing Atovaquone (Atovaquone 750 Mg/5 Ml Oral.Susp) 750 mg G-TUBE BID [facility] Last Admin: 02/02/23 10:36 Dose: 750 mg Documented By: SAHIL Chlorhexidine Gluconate (Chlorhexidine Gluc Oral Rinse 15 Ml Mouthwash) 15 ml BUCCAL BID [facility] Last Admin: 02/02/23 10:36 Dose: 15 ml Documented By: SAHIL Doxazosin Mesylate (Doxazosin Mesylate 1 Mg Tablet) 1 mg G-TUBE BEDTIME [facility]; Protocol Last Admin: 02/01/23 20:08 Dose: 1 mg Documented By: JENNIFER Finasteride (Finasteride 5 Mg Tablet) 5 mg PO DAILY [facility] Last Admin: 02/02/23 10:35 Dose: 5 mg Documented By: SAHIL Piperacillin Sod/Tazobactam (Sod 3.375 gm/ Sodium Chloride) 50 mls @ 100 mls/hr IV Q6H [facility] Last Infusion: 02/02/23 10:36 Dose: 0 mls/hr Documented By: SAHIL Vancomycin HCl 500 mg/ Sodium (Chloride) 110 mls @ 110 mls/hr IV Q12H [facility] Dextrose (D5w) 1,000 mls @ 125 mls/hr IVCONT .Q8H [facility] Stop: 02/02/23 23:59 Last Admin: 02/02/23 09:44 Dose: 125 mls/hr Documented By: SAHIL Lacosamide (Lacosamide 100 Mg Tablet) 200 mg G-TUBE BID [facility] Last Admin: 02/02/23 10:35 Dose: 200 mg Documented By: SAHIL Loperamide HCl (Loperamide Hcl 2 Mg Capsule) 2 mg G-TUBE Q4H PRN PRN Reason: Diarrhea Lorazepam (Lorazepam 2 Mg/Ml Vial) 2 mg IM DAILY PRN PRN Reason: SIEZURE > 5 MINUTES Lorazepam (Lorazepam 0.5 Mg Tablet) 0.5 mg G-TUBE Q6H PRN PRN Reason: Anxiety Methylprednisolone Sodium Succinate (Methylprednisolone Sod Succ 40 Mg/Ml Vial) 40 mg IVPUSH Q12H [facility] Last Admin: 02/02/23 10:35 Dose: 40 mg Documented By: SAHIL Midodrine (Midodrine Hcl 2.5 Mg Tablet) 7.5 mg G-TUBE TID [facility] Last Admin: 02/02/23 10:35 Dose: 7.5 mg Documented By: SAHIL Morphine Sulfate (Morphine Sulfate 2 Mg/Ml Cartridge) 2 mg IVPUSH Q4H PRN; Protocol PRN Reason: Pain, Severe (Pain Scale 7-10) Last Admin: 02/01/23 01:55 Dose: 2 mg Documented By: BALJINDER Omeprazole (Omeprazole/Na Bicarb Oral Susp 20 Mg/10 Ml Ud Cup) 40 mg G-TUBE BID@0630,1630 [facility] Last Admin: 02/02/23 05:55 Dose: 40 mg Documented By: JENNIFER Ondansetron HCl (Ondansetron Hcl 4 Mg/2 Ml Vial) 4 mg IVPUSH Q8H PRN PRN Reason: Nausea and Vomiting Last Admin: 02/01/23 01:55 Dose: 4 mg Documented By: BALJINDER Pharmacy Consult (Consult Rx Perform Med Rec) 1 each MISCELLANE ONCE PRN PRN Reason: Consult order Pharmacy Consult (Consult Rx Vancomycin Dosing) 1 each MISCELLANE DAILY PRN PRN Reason: Consult order Scopolamine (Scopolamine 1.5 Mg Patch.Td.3) 1.5 mg TRANSDERMA Q3D [facility] Last Admin: 01/31/23 19:04 Dose: 1.5 mg Documented By: ROBBIE Sodium Chloride (0.9 % Sodium Chloride Flush 3 Ml Syringe) 3 ml IVFLUSH QSHIFT [facility] Last Admin: 02/02/23 07:29 Dose: 3 ml Documented By: SAHIL Sucralfate (Sucralfate Oral Suspension 1 Gm/10 Ml Oral.Susp) 1 gm PO QIDACHS [facility] Last Admin: 02/02/23 11:47 Dose: 1 gm Documented By: SAHIL Trimethoprim/Sulfamethoxazole (Sulfameth/Trimet 800/160/20 Ml 20 Ml Oral.Susp) 20 ml PO MoWeFr@0900 [facility] Last Admin: 02/02/23 10:35 Dose: 20 ml Documented By: SAHIL Labs 02/02/23 04:21 02/02/23 04:21 Labs: Laboratory Results - last 24 hr 02/01/23 02/01/23 02/02/23 18:49 18:49 04:21 MCV 92.3 MCH 27.6 MCHC 29.9 L RDW 19.4 H Plt Count 164 MPV 10.3 Absolute Nucleated RBC 0.000 Nucleated RBC % (auto) 0.0 Anion Gap Estim Creat Clear Calc Estimated GFR Random Glucose Calcium Random Vancomycin 47.8 H* 20.3 H 02/02/23 02/02/23 02/02/23 04:21 04:21 04:21 MCV 92.5 MCH 27.5 MCHC 29.7 L RDW 19.4 H Plt Count 115 L D MPV 10.1 Absolute Nucleated RBC 0.000 Nucleated RBC % (auto) 0.0 Anion Gap 13 Estim Creat Clear Calc Cancelled 69.3 Estimated GFR Cancelled > 60 Random Glucose 109 Calcium 9.0 Random Vancomycin Microbiology Microbiology Results: Microbiology 01/31/23 07:58 Gram Stain - Final Sputum - Suctioned Sputum Culture - Preliminary Gram negative jessie 01/31/23 08:00 Blood Culture - Preliminary Blood - Venous No growth after 48 hours. 01/31/23 08:00 Blood Culture - Preliminary Blood - Venous No growth after 48 hours. 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 IV, plan for 6 weeks iv vanc (end february 06, 2023) Vanco 1 gm q12 follow Vancomycin trough Stage IV mantle cell lymphoma in remission 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 Quality Stroke Does the patient have a stroke diagnosis?: No VTE Prior VTE?: No VTE Risk Level:: Medical - moderate - high VTE Device Contraindication: N/A - Device Ordered VTE Drug Contraindication: Treatment Not Indicated
--- NOTE | 2023-02-02 13:22 | MHC.CLN ---
F/U SPOKE WITH MD REGARDING TF RECOMMEND OSMOLITE 1.5 AT MAX GOAL RATE 60ML/HR CONTINUOUS WITH 240ML FREE WATER FLUSHES Q 6 HRS TO PROVIDE 2160KCALS (38KCALS/KG), 90G PROTEIN (1.6G/KG), 2057ML TOTAL WATER FROM FORMULA AND FLUSHES (336ML/KG) START FORMULA AT 20ML/HR AND INCREASE BY 10ML Q 4 HRS UNTIL MAX GOAL IS ACHIEVED MONITOR TOLERANCE, RESIDUALS AND LYTES
[2023-02-02] MEDS: methylPREDNISolone Sod Succ 40 MG/ML VIAL 20 MG IVPUSH (13:57)
[2023-02-02 14:51] LABS: Anion Gap 14 (12-20); Blood Urea Nitrogen 32 mg/dL (9-16); Calcium 8.6 mg/dL (8.4-10.2); Carbon Dioxide 26 mmol/L (22-29); Chloride 111 mmol/L (96-108); Estimated Glomerular Filt Rate > 60; Glucose Random 131 mg/dL (60-115); Potassium 3.6 mmol/L (3.3-5.1); Sodium 147 mmol/L (135-145)
--- NOTE | 2023-02-02 15:15 | HO.POSTANES ---
Post Anesthesia Evaluation Post Anesthesia Evaluation Date of Service: 02/02/23 Vital Signs: Vital Signs Temp Pulse Resp BP Pulse Ox O2 Del Method O2 Flow Rate 02/02/23 11:16 97.3 F 76 20 110/60 90 L Trach Collar 5 02/02/23 07:30 97.1 F 77 20 105/63 97 Trach Collar 5 02/02/23 03:33 97.3 F 93 18 103/66 98 Trach Collar 5 FiO2 02/02/23 11:16 02/02/23 07:30 02/02/23 03:33 28 Anesthesia: General Endotracheal-GETA (tracheostomy) Mental Status: Awake Pain Control: Satisfactory Nausea/Vomiting: None Hydration: Adequate Anesthesia-Related Issues: No Anes. Related Issues
[2023-02-02] MEDS: Acetaminophen 325 MG TABLET 650 MG G-TUBE (16:08)
[2023-02-02] MEDS: Fidaxomicin 200 MG TABLET PO (16:46)
[2023-02-02] MEDS: vancomycin HCL 500 MG in 0.9 % Sodium Chloride 100 ML 110 MG IV (19:19)
[2023-02-02] MEDS: Doxazosin Mesylate 1 MG TABLET G-TUBE (21:47)
[2023-02-03] VITALS (8 sets, daily range): BP systolic 90–110; BP diastolic 53–68; PULSE 59–75; RESP 14–20; TEMP 36–37.2; O2SAT 93–100
[2023-02-03] MEDS: methylPREDNISolone Sod Succ 40 MG/ML VIAL 20 MG IVPUSH ×2 (01:46→13:13)
[2023-02-03] MEDS: Piperacillin Sodium/Tazobactam 3.375 GM in 0.9 % Sodium Chloride 50 ML IV ×2 (03:13→09:14)
--- NOTE | 2023-02-03 04:40 | PC.NURSE ---
01:11, Dr Walsh notified pt's HR dipping into the 40's. Pt sound asleep. When I woke him, HR up to 60's but back down when sleeping. No new orders. Suctioned several times throughout the night and trach dressing changed and O2 mask cleaned. Changed and bathed patient who was incontinent of black liquid stool. Foam dressings on coccyx/buttocks changed. Pt repostioned and suctioned but Sats remain around 89%. I called respiratory for a deep suction. Will continue to monitor.
[2023-02-03] MEDS: Omeprazole/Na Bicarb Oral Susp 20 MG/10 ML UD Cup 40 MG G-TUBE ×2 (05:26→15:24)
[2023-02-03] MEDS: Fidaxomicin 200 MG TABLET PO (05:27)
[2023-02-03 06:17] LABS: Hematocrit 27.3 % (42.0-52.0); Hemoglobin 8.1 g/dl (14.0-18.0); Mean Corpuscular HGB Conc 29.7 g/dl (31.0-36.0); Mean Corpuscular Hemoglobin 27.8 pg (27.0-33.0); Mean Corpuscular Volume 93.8 fL (80.0-98.0); Platelet Count 118 X10*3/uL (160-400); Red Blood Count 2.91 X10*6/uL (4.60-5.80); Red Cell Distribution Width 18.8 % (11.0-16.0); White Blood Count 4.7 X10*3/uL (4.8-10.8)
[2023-02-03] MEDS: vancomycin HCL 500 MG in 0.9 % Sodium Chloride 100 ML 110 MG IV ×2 (06:20→19:01)
[2023-02-03] MEDS: Sucralfate Oral Suspension 1 GM/10 ML ORAL.SUSP PO ×4 (06:20→22:45)
[2023-02-03 06:40] LABS: Blood Urea Nitrogen 25 mg/dL (9-16); Calcium 8.7 mg/dL (8.4-10.2); Creatinine Clr Calc Pharmacy 82.1; Estimated Glomerular Filt Rate > 60; Glucose Random 120 mg/dL (60-115)
[2023-02-03 07:07] LABS: Anion Gap 13 (12-20); Carbon Dioxide 27 mmol/L (22-29); Chloride 105 mmol/L (96-108); Potassium 2.9 mmol/L (3.3-5.1); Sodium 142 mmol/L (135-145)
[2023-02-03] MEDS: Chlorhexidine Gluc Oral Rinse 15 ML MOUTHWASH BUCCAL ×2 (08:36→22:45)
[2023-02-03] MEDS: Atovaquone 750 MG/5 ML ORAL.SUSP G-TUBE ×2 (08:36→22:46)
[2023-02-03] MEDS: Midodrine HCl 2.5 MG TABLET 7.5 MG G-TUBE ×3 (08:37→22:46)
[2023-02-03] MEDS: 0.9 % Sodium Chloride Flush 3 ML SYRINGE IVFLUSH ×3 (08:37→23:02)
[2023-02-03] MEDS: Potassium Chloride Packet 20 MEQ PACKET 40 MEQ G-TUBE (08:37)
[2023-02-03] MEDS: Finasteride 5 MG TABLET PO (08:37)
[2023-02-03] MEDS: Lacosamide 100 MG TABLET 200 MG G-TUBE ×2 (08:37→22:46)
[2023-02-03] MEDS: Collagenase Clostridium Hist. 30 GM TUBE 1 APPL TOPICAL (08:38)
[2023-02-03] MEDS: Lactated Ringers 1,000 ML 999 ML IV ×2 (08:43→16:22)
--- NOTE | 2023-02-03 09:04 | PM.PNPUL ---
Subjective Subjective Date of Service: 02/03/23 Interval history: The patient was seen on exam. Having a lot of secretions from the tracheostomy. The secretions are thin but extensive. He did desaturate this morning requiring suctioning currently on trach collar. He does have a cuffed trach in. I did replace her for a on cough tracheostomy at the bedside without any complications. [employer] 7.5 inner diameter. We did provide additional sectioning. No evidence of any active bleeding or coffee ground aspirate from the lungs at this time. The patient has been on adequate antibiotic coverage. Objective Data Labs 02/03/23 06:06 02/03/23 06:06 Labs: Laboratory Results - last 24 hr 02/02/23 02/03/23 02/03/23 14:22 06:06 06:06 WBC 4.7 L RBC 2.91 L Hgb 8.1 L Hct 27.3 L MCV 93.8 MCH 27.8 MCHC 29.7 L RDW 18.8 H Plt Count 118 L MPV 11.0 Absolute Nucleated RBC 0.000 Nucleated RBC % (auto) 0.0 Sodium 147 H 142 Potassium 3.6 2.9 L Chloride 111 H 105 Carbon Dioxide 26 27 Anion Gap 14 13 BUN 32 H 25 H Creatinine 1.02 0.87 Estim Creat Clear Calc 70.0 82.1 Estimated GFR > 60 > 60 Random Glucose 131 H 120 H Calcium 8.6 8.7 Microbiology Microbiology Results: Microbiology 01/31/23 07:58 Sputum - Suctioned Gram Stain - Final 01/31/23 07:58 Sputum - Suctioned Sputum Culture - Final Klebsiella pneumoniae Pseudomonas aeruginosa 01/31/23 08:00 Blood - Venous Blood Culture - Preliminary No growth after 48 hours. 01/31/23 08:00 Blood - Venous Blood Culture - Preliminary No growth after 48 hours. Review of Systems Review of Systems Yes unobtainable due to endotracheal tube and Other (non verval) Physical Exam Vital Signs: Vital Signs: Last Vital Signs Temp 98.9 F 02/03/23 07:35 Pulse 62 02/03/23 07:35 Resp 20 02/03/23 07:35 BP 91/60 02/03/23 07:35 Pulse Ox 99 02/03/23 07:35 O2 Del Method Trach Collar 02/03/23 07:35 O2 Flow Rate 5 02/03/23 07:35 FiO2 28 02/03/23 07:35 Oxygen Flow Rate 10 01/31/23 05:26 BMI result Body Mass Index 19.2 Const: Other: Constitutional : asleep, not in distress, somnolent Neck : Normal inspection, Supple, trach with coffee ground residual Cardiovascular : RRR, no JVP, no lower extremity edema Respiratory : dimished BS Gastrointestinal: soft Skin : Warm Neurological : somnolent Procedures Date of Service Date of Service: 02/03/23 Assessment and Plan Assessment and plan (1) Acute and chronic respiratory failure with hypoxia: Status: Acute (2) Aspiration pneumonia: Status: Acute (3) Tracheostomy dependent: Status: Acute Plan changed to uncuff trach at the bedside still needs frequent suction, partly micro aspiration related abx for aspiration pneumonia, resistant organisms noted repeat chest xray Time Spent With Patient Time: Total time managing care of this patient today ____ minutes. Progress Note: Quality Stroke Does the patient have a stroke diagnosis?: No
--- NOTE | 2023-02-03 10:47 | P.CDIM_ITS ---
PROVIDER RESPONSE TEXT: To clarify, the appropriate diagnosis supported by the clinical indicators: Moderate protein calorie Malnutrition QUERY TEXT: PHYSICIAN'S DOCUMENTATION REQUEST Date of Query: 02/03/2023 09:31 AM EDT Patient Name: Marino Kaminski Admit Date: 01/31/2023 Dear Patrick Pineda, A review of the medical record indicates additional documentation may be needed. Please review below and update the documentation accordingly. Clinical Indicators: Height: ( ) Weight: ( ) BMI: ( ) 19.2 Other Clinical Notes Supporting Significance of the BMI: Per Clinical Nutrition Assessment 02/01/23: Malnutrition, prolong Catabolic illness, 81% IBW with mild ly depleted subcutaneous fat and muscle mass, patient is moderately malnourished If possible, please provide an associated diagnosis related to the abnormal BMI, such as: Mild protein calorie Malnutrition Moderate protein calorie Malnutrition BMI is not significant Other (explain)Clinically unable to determine (explain)Thank you, Thuy Norton RN Use of terms such as suspected, likely, concern for, or probable (associated with a specific diagnosi s that is being evaluated, monitored, or treated as if it exists) are acceptable and can be coded in the inpatient se tting, when documented at the time of discharge. Please use your independent medical judgment in providing your response. THIS QUERY IS PART OF THE PERMANENT MEDICAL RECORD
--- NOTE | 2023-02-03 10:51 | HO.PM.IMPN ---
Subjective Subjective Date of Service: 02/03/23 Interval History: Seen and evaluated this morning Hypotensive overnight, responding to IVF Trach changed to cuffless this morning O2 supplement down to 5L No other overnight events Review of Systems Review of Systems: Yes Unobtainable due to mental condition Physical Exam Vital Signs: Vital Signs: Last Vital Signs Temp 98.9 F 02/03/23 07:35 Pulse 75 02/03/23 10:22 Resp 20 02/03/23 07:35 BP 104/60 02/03/23 10:22 Pulse Ox 99 02/03/23 07:35 O2 Del Method Trach Collar 02/03/23 07:35 O2 Flow Rate 5 02/03/23 07:35 FiO2 28 02/03/23 07:35 Oxygen Flow Rate 10 01/31/23 05:26 BMI result Body Mass Index 19.2 Const: Other: Constitutional : Awake,? not in distress Neck : Normal inspection, Supple Cardiovascular : RRR, no JVP, no lower extremity edema Respiratory : fair bilateral air entry,? basal bilateral crackles, Trach with no significant secretions. on Trach mask Gastrointestinal:? soft, lax, Normal bowel sounds, G-tube in place, no significant tenderness Skin : Warm, Dry, decubetus ulcers, deep on the side with large puncture, dark discolored skin buttock area Neurological : Alert, No focal deficit but retracted Objective Data Active Medications Acetaminophen (Acetaminophen 325 Mg Tablet) 650 mg G-TUBE Q6H PRN PRN Reason: Pain, Mild (Pain Scale 1-3) Last Admin: 02/02/23 16:08 Dose: 650 mg Documented By: JEANNETTE Albuterol Sulfate (Albuterol Sulfate (0.083%) 2.5 Mg/3 Ml Vial.Neb) 2.5 mg INHALE Q4H PRN PRN Reason: Shortness Of Breath Or Wheezing Atovaquone (Atovaquone 750 Mg/5 Ml Oral.Susp) 750 mg G-TUBE BID [facility] Last Admin: 02/03/23 08:36 Dose: 750 mg Documented By: YARY Chlorhexidine Gluconate (Chlorhexidine Gluc Oral Rinse 15 Ml Mouthwash) 15 ml BUCCAL BID [facility] Last Admin: 02/03/23 08:36 Dose: 15 ml Documented By: YARY Collagenase (Collagenase Clostridium Hist. 30 Gm Tube) 1 appl TOPICAL DAILY [facility]; Protocol Last Admin: 02/03/23 08:38 Dose: 1 appl Documented By: YARY Doxazosin Mesylate (Doxazosin Mesylate 1 Mg Tablet) 1 mg G-TUBE BEDTIME [facility]; Protocol Last Admin: 02/02/23 21:47 Dose: 1 mg Documented By: DIEGO Finasteride (Finasteride 5 Mg Tablet) 5 mg PO DAILY [facility] Last Admin: 02/03/23 08:37 Dose: 5 mg Documented By: YARY Piperacillin Sod/Tazobactam (Sod 3.375 gm/ Sodium Chloride) 50 mls @ 100 mls/hr IV Q6H [facility] Last Infusion: 02/03/23 10:12 Dose: 0 mls/hr Documented By: YARY Vancomycin HCl 500 mg/ Sodium (Chloride) 110 mls @ 110 mls/hr IV Q12H [facility] Last Infusion: 02/03/23 07:20 Dose: 0 mls/hr Documented By: DIEGO Lacosamide (Lacosamide 100 Mg Tablet) 200 mg G-TUBE BID [facility] Last Admin: 02/03/23 08:37 Dose: 200 mg Documented By: YARY Loperamide HCl (Loperamide Hcl 2 Mg Capsule) 2 mg G-TUBE Q4H PRN PRN Reason: Diarrhea Lorazepam (Lorazepam 2 Mg/Ml Vial) 2 mg IM DAILY PRN PRN Reason: SIEZURE > 5 MINUTES Lorazepam (Lorazepam 0.5 Mg Tablet) 0.5 mg G-TUBE Q6H PRN PRN Reason: Anxiety Methylprednisolone Sodium Succinate (Methylprednisolone Sod Succ 40 Mg/Ml Vial) 20 mg IVPUSH Q12H [facility] Last Admin: 02/03/23 01:46 Dose: 20 mg Documented By: DIEGO Midodrine (Midodrine Hcl 2.5 Mg Tablet) 7.5 mg G-TUBE TID [facility] Last Admin: 02/03/23 08:37 Dose: 7.5 mg Documented By: YARY Morphine Sulfate (Morphine Sulfate 2 Mg/Ml Cartridge) 2 mg IVPUSH Q4H PRN; Protocol PRN Reason: Pain, Severe (Pain Scale 7-10) Last Admin: 02/01/23 01:55 Dose: 2 mg Documented By: BALJINDER Omeprazole (Omeprazole/Na Bicarb Oral Susp 20 Mg/10 Ml Ud Cup) 40 mg G-TUBE BID@0630,1630 [facility] Last Admin: 02/03/23 05:26 Dose: 40 mg Documented By: DIEGO Ondansetron HCl (Ondansetron Hcl 4 Mg/2 Ml Vial) 4 mg IVPUSH Q8H PRN PRN Reason: Nausea and Vomiting Last Admin: 02/01/23 01:55 Dose: 4 mg Documented By: BALJINDER Pharmacy Consult (Consult Rx Perform Med Rec) 1 each MISCELLANE ONCE PRN PRN Reason: Consult order Pharmacy Consult (Consult Rx Vancomycin Dosing) 1 each MISCELLANE DAILY PRN PRN Reason: Consult order Scopolamine (Scopolamine 1.5 Mg Patch.Td.3) 1.5 mg TRANSDERMA Q3D [facility] Last Admin: 01/31/23 19:04 Dose: 1.5 mg Documented By: ROBBIE Sodium Chloride (0.9 % Sodium Chloride Flush 3 Ml Syringe) 3 ml IVFLUSH QSHIFT [facility] Last Admin: 02/03/23 08:37 Dose: 3 ml Documented By: YARY Sucralfate (Sucralfate Oral Suspension 1 Gm/10 Ml Oral.Susp) 1 gm PO QIDACHS [facility] Last Admin: 02/03/23 06:20 Dose: 1 gm Documented By: DIEGO Trimethoprim/Sulfamethoxazole (Sulfameth/Trimet 800/160/20 Ml 20 Ml Oral.Susp) 20 ml PO MoWeFr@0900 [facility] Last Admin: 02/02/23 10:35 Dose: 20 ml Documented By: SAHIL Vancomycin HCl (Vancomycin Hcl Oral Solution 125 Mg/5 Ml Soln.Recon) 125 mg G-TUBE Q6H [facility] Labs 02/03/23 06:06 02/03/23 06:06 Labs: Laboratory Results - last 24 hr 02/02/23 02/03/23 02/03/23 14:22 06:06 06:06 MCV 93.8 MCH 27.8 MCHC 29.7 L RDW 18.8 H Plt Count 118 L MPV 11.0 Absolute Nucleated RBC 0.000 Nucleated RBC % (auto) 0.0 Anion Gap 14 13 Estim Creat Clear Calc 70.0 82.1 Estimated GFR > 60 > 60 Random Glucose 131 H 120 H Calcium 8.6 8.7 Microbiology Microbiology Results: Microbiology 01/31/23 07:58 Gram Stain - Final Sputum - Suctioned Sputum Culture - Final Klebsiella pneumoniae Pseudomonas aeruginosa 01/31/23 08:00 Blood Culture - Preliminary Blood - Venous No growth after 48 hours. 01/31/23 08:00 Blood Culture - Preliminary Blood - Venous No growth after 48 hours. 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 for evaluation of?Hypoxia and dark secretion from his trach. Sepsis in the setting of acute on chronic Hypoxic respiratory failure 2/2 aspiration pneumonitis\pneumonia negative blood cultures Sputum cx growing Pseudomonas and resistent Klebsiella ; both sensitive to Meropenem Get ID eval DC Zosyn, Start Meropenem Decrease IV Methylprednisolone Pulm input appreciated, Trach changed to uncuffed repeat CXR wean O2 down as tolerated Acute on chronic blood loss anemia 2/2 GI bleed H&H stable at 8.1, no further bleeding noticed GI did Endoscopy showing esophagitis and gastritis Omeprazole bid for 8 weeks Sucralfate 1gm QID for 2 weeks monitor H&H Transfusion if <7 Hypotension not due to sepsis responsive to IVF continue Midodrine follow BP acute HYpernatremia resolved follow BMP chronic OM of pelvis covered by vancomycin IV, plan for 6 weeks iv vanc (end february 06, 2023) Vanco 1 gm q12 follow Vancomycin trough Stage IV mantle cell lymphoma in remission [employer]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 Quality Stroke Does the patient have a stroke diagnosis?: No VTE Prior VTE?: No VTE Risk Level:: Medical - moderate - high VTE Device Contraindication: N/A - Device Ordered VTE Drug Contraindication: Treatment Not Indicated
--- NOTE | 2023-02-03 13:00 | HO.WOUND ---
Wound Care Consult Reason for consult: Multiple chronic sacral wound w/ sacral OM on ABX Patient has multiple pressure ulcers. 1. Stage III pressure ulcer on the Left lateral foot. Foam border removed from wound at the time of consult. Small serous drainage on the dressing. Wound bed appearance was medium yellow with medium red tissue. Wound edges are not attached. Undermining from 12 to 5 o'clock of 0.3cm at the deepest. Surrounding tissue temperature was warm to touch. No odor. Periwound was scarred and callused. Wound measured 0.4cm X 0.5cm x 0.2cm. Wound was cleansed with normal saline and foam border reapplied for now. 2. Unstageable pressure ulcer of the left heel. Foam border removed from the wound. Small serous drainage on the dressing. Wound bed appearance was large yellow and small pink/red. Wound edges attached and well defined. Surrounding tissue is warm to touch. Periwound is scarred. Wound measured 2.8cm x 2.1cm x 0.1cm. Wound was cleansed with normal saline and foam border reapplied for now. 3. Unstageable pressure ulcer of the right lateral ankle. Foam border removed from the wound. Small serous drainage on the dressing. Wound bed appearance was large yellow and small pink/red. Wound edges not attached. There is undermining from 5 to 7 o'clock of 0.4cm at the deepest. Surrounding tissue is warm to touch. Periwound is scarred. Wound measured 2.4cm x 1.8cm x 0.1cm. Wound was cleansed with normal saline and foam border reapplied for now. 4. Stage IV pressure ulcer on the left hip. Wound was HEIKE at the time of consult. No dressing to assess actual amount of drainage but there was a small amount of serous drainage on the chux pad. Wound bed appearance was large yellow with small pink. Wound edges are epiboled and not attached. There is undermining from 12-6 o'clock of 3.9cm at the deepest. Surrounding tissue intact. Periwound is scarred. Wound measured 1.7cm x 0.9cm x 1.7cm. Wound irrigated with normal saline. Packed with alginate ag and covered with a foam border. 5. Unstageable pressure ulcer on the left ischium. Wound was HEIKE on time of consult. No dressing to assess actual amount of drainage but there was a small amount of serous drainage on the chux pad. Wound bed appearance was medium yellow and medium pink. Wound edges are attached. Surrounding tissue intact. Periwound is scarred. Wound measured 7.5cm x 2.3cm x 0.6cm. Wound cleansed with normal saline. Cut alginate ag to wound size and applied to wound bed. Covered with a foam border. 6. Stage IV pressure ulcer on the right hip. Wound was [facility]IST at the time of consult but there was plain gauze packing still in the wound which was removed. Again no dressing to assess actual amount of drainage but there was a moderate amount of serosanquineous on the packing and some drainage on the chux pad. Wound bed appearance was large pink and small yellow. Bone was exposed. Wound edges are epiboled and not attached. There is undermining from 2-10 o'clock of 3.6cm at the deepest. Surrounding tissue intact. Periwound is scarred. Wound measured 2.7cm x 2cm x 0.7cm. Wound irrigated with normal saline. Packed with alginate ag and covered with a foam border. Recommendation: The following dressing recommendations: 1. Left lateral foot- Cleanse the wound with normal saline or sea clens wound cleanser. Apply Collagenase Santyl ointment to the wound bed (crystal thick). Cover with gauze and secure with destiny wrap. If the skin starts to get macerated, may apply some zinc barrier cream to periwound. Change dressing daily. 2. Left heel- Cleanse the wound with normal saline or sea clens wound cleanser. Apply Collagenase Santyl ointment to the wound bed (crystal thick). Cover with gauze and secure with destiny wrap. If the skin starts to get macerated, may apply some zinc barrier cream to periwound. Change dressing daily. 3. Right lateral ankle- Cleanse the wound with normal saline or sea clens wound cleanser. Apply Collagenase Santyl ointment to the wound bed (crystal thick). Cover with gauze and secure with destiny wrap. If the skin starts to get macerated, may apply some zinc barrier cream to periwound. Change dressing daily. 4. Left hip- Irrigate wound well with normal saline. Lightly pack wound with alginate ag. Cover with foam border. If the skin starts to get macerated, may apply some zinc barrier cream to periwound. Change dressing every other day, if drainage warrants may increase to daily dressing changes. 5. Left ischium- Cleanse the wound with normal saline or sea clens wound cleanser. Cut alginate ag to wound size and apply to the wound bed. Cover with a foam border. Because of the location of the wound, it may have to be changed more frequently because of soiling episodes but can be changed every other day to daily and PRN for soiling. 6. Right hip- Irrigate wound well with normal saline. Lightly pack wound with alginate ag. Cover with foam border. If the skin starts to get macerated, may apply some zinc barrier cream to periwound. Change dressing every other day, if drainage warrants may increase to daily dressing changes.
[2023-02-03] MEDS: vancomycin HCL Oral Solution 125 MG/5 ML SOLN.RECON G-TUBE ×3 (13:13→22:46)
[2023-02-03 14:55] LABS: CDiff Gene PCR NEGATIVE (Negative)
[2023-02-03] MEDS: Scopolamine 1.5 MG PATCH.TD.3 TRANSDERMA (15:26)
[2023-02-03] MEDS: Morphine Sulfate 2 MG/ML CARTRIDGE IVPUSH (18:23)
--- NOTE | 2023-02-03 18:57 | HE.PHANOTE ---
VANCO DOSE ADJUSTMENT DOSE CONTINUED AT 500 Q 12. NEXT TROUGH 02/04 @ 1700
[2023-02-04] MEDS: methylPREDNISolone Sod Succ 40 MG/ML VIAL 20 MG IVPUSH ×2 (02:10→12:56)
[2023-02-04 03:21] VITALS: BP 109/67; PULSE 70; RESP 18; TEMP 36.6; O2SAT 97
[2023-02-04 05:31] LABS: Hematocrit 26.3 % (42.0-52.0); Hemoglobin 8.1 g/dl (14.0-18.0); Mean Corpuscular HGB Conc 30.8 g/dl (31.0-36.0); Mean Corpuscular Hemoglobin 27.6 pg (27.0-33.0); Mean Corpuscular Volume 89.8 fL (80.0-98.0); Mean Platelet Volume 10.4 fL (9.4-12.4); Platelet Count 143 X10*3/uL (160-400); Red Blood Count 2.93 X10*6/uL (4.60-5.80); Red Cell Distribution Width 18.5 % (11.0-16.0); White Blood Count 5.9 X10*3/uL (4.8-10.8)
[2023-02-04 05:37] LABS: Anion Gap 10 (12-20); Blood Urea Nitrogen 16 mg/dL (9-16); Calcium 8.3 mg/dL (8.4-10.2); Carbon Dioxide 28 mmol/L (22-29); Chloride 106 mmol/L (96-108); Creatinine Clr Calc Pharmacy 89.3; Estimated Glomerular Filt Rate > 60; Glucose Random 136 mg/dL (60-115); Potassium 3.8 mmol/L (3.3-5.1); Sodium 140 mmol/L (135-145)
[2023-02-04] MEDS: vancomycin HCL 500 MG in 0.9 % Sodium Chloride 100 ML 110 MG IV (06:21)
[2023-02-04] MEDS: Omeprazole/Na Bicarb Oral Susp 20 MG/10 ML UD Cup 40 MG G-TUBE ×2 (06:21→16:02)
[2023-02-04] MEDS: vancomycin HCL Oral Solution 125 MG/5 ML SOLN.RECON G-TUBE ×3 (06:21→17:45)
[2023-02-04 07:31] VITALS: BP 116/70; PULSE 70; RESP 20; TEMP 36.6; O2SAT 98
[2023-02-04] MEDS: Atovaquone 750 MG/5 ML ORAL.SUSP G-TUBE ×2 (08:48→23:09)
[2023-02-04] MEDS: Chlorhexidine Gluc Oral Rinse 15 ML MOUTHWASH BUCCAL ×2 (08:48→23:09)
[2023-02-04] MEDS: Sulfameth/Trimet 800/160/20 ML 20 ML ORAL.SUSP PO (08:48)
[2023-02-04] MEDS: Sucralfate Oral Suspension 1 GM/10 ML ORAL.SUSP PO ×4 (08:48→23:10)
[2023-02-04] MEDS: 0.9 % Sodium Chloride Flush 3 ML SYRINGE IVFLUSH ×3 (08:49→23:11)
[2023-02-04] MEDS: Collagenase Clostridium Hist. 30 GM TUBE 1 APPL TOPICAL (08:49)
[2023-02-04] MEDS: Lacosamide 100 MG TABLET 200 MG G-TUBE ×2 (08:49→23:10)
[2023-02-04] MEDS: Midodrine HCl 2.5 MG TABLET 7.5 MG G-TUBE ×3 (08:49→23:10)
[2023-02-04] MEDS: Finasteride 5 MG TABLET PO (08:49)
--- NOTE | 2023-02-04 10:28 | MHC.CM.PN ---
Per ROUNDS discussion, Patient is still requiring IV ABT and is not yet medically cleared for dc. Returning to [facility] is the goal and CM will continue to follow.
--- NOTE | 2023-02-04 10:31 | MHC.CLN ---
F/U REVIEWED LABS PT RECEIVING OSMOLITE 1.5 AT MAX GOAL RATE 60ML/HR CONTINUOUS WITH 240ML FREE WATER FLUSHES Q 6 HRS PROVIDES 2160KCALS (38KCALS/KG), 90G PROTEIN (1.6G/KG), 2057ML TOTAL WATER FROM FORMULA AND FLUSHES (336ML/KG) TF APPROPRIATE TO PROMOTE WOUND HEALING MONITOR TOLERANCE, RESIDUALS AND LYTES
[2023-02-04 11:08] VITALS: BP 111/67; PULSE 76; RESP 20; TEMP 36.4; O2SAT 95
--- NOTE | 2023-02-04 12:32 | HO.PM.IMPN ---
Subjective Subjective Date of Service: 02/04/23 Interval History: patient seen and examined at bedside. patient is awake alert but orientation cannot be assessed. Unable to obtain review of system due to mental and medical status Physical Exam Vital Signs: Vital Signs: Last Vital Signs Temp 97.5 F 02/04/23 11:08 Pulse 76 02/04/23 11:08 Resp 20 02/04/23 11:08 BP 111/67 02/04/23 11:08 Pulse Ox 95 02/04/23 11:08 O2 Del Method Trach Collar 02/04/23 11:08 O2 Flow Rate 5 02/04/23 11:08 FiO2 28 02/04/23 11:08 Oxygen Flow Rate 10 01/31/23 05:26 BMI result Body Mass Index 19.2 Const: Other: awake, alert, unable to assess orientation Resp: Other: trach in place, no respiratory distress GI: Other: abdomen is soft, normal bowel sounds Extrem: Other: no lower extremity edema Objective Data Active Medications Acetaminophen (Acetaminophen 325 Mg Tablet) 650 mg G-TUBE Q6H PRN PRN Reason: Pain, Mild (Pain Scale 1-3) Last Admin: 02/02/23 16:08 Dose: 650 mg Documented By: JEANNETTE Albuterol Sulfate (Albuterol Sulfate (0.083%) 2.5 Mg/3 Ml Vial.Neb) 2.5 mg INHALE Q4H PRN PRN Reason: Shortness Of Breath Or Wheezing Atovaquone (Atovaquone 750 Mg/5 Ml Oral.Susp) 750 mg G-TUBE BID RACHELL Last Admin: 02/04/23 08:48 Dose: 750 mg Documented By: YARY Chlorhexidine Gluconate (Chlorhexidine Gluc Oral Rinse 15 Ml Mouthwash) 15 ml BUCCAL BID RACHELL Last Admin: 02/04/23 08:48 Dose: 15 ml Documented By: YARY Collagenase (Collagenase Clostridium Hist. 30 Gm Tube) 1 appl TOPICAL DAILY RACHELL; Protocol Last Admin: 02/04/23 08:49 Dose: 1 appl Documented By: YARY Doxazosin Mesylate (Doxazosin Mesylate 1 Mg Tablet) 1 mg G-TUBE BEDTIME RACHELL; Protocol Last Admin: 02/03/23 22:47 Dose: Not Given Documented By: SHAHBAZ Non-Admin Reason: Decreased Blood Pressure Finasteride (Finasteride 5 Mg Tablet) 5 mg PO DAILY [facility] Last Admin: 02/04/23 08:49 Dose: 5 mg Documented By: YARY Vancomycin HCl 500 mg/ Sodium (Chloride) 110 mls @ 110 mls/hr IV Q12H [facility] Last Infusion: 02/04/23 07:54 Dose: 0 mls/hr Documented By: YARY Meropenem 1 gm/ Sodium (Chloride) 100 mls @ 200 mls/hr IV Q8H [facility] Last Infusion: 02/04/23 02:46 Dose: 0 mls/hr Documented By: SHAHBAZ Lacosamide (Lacosamide 100 Mg Tablet) 200 mg G-TUBE BID [facility] Last Admin: 02/04/23 08:49 Dose: 200 mg Documented By: YARY Loperamide HCl (Loperamide Hcl 2 Mg Capsule) 2 mg G-TUBE Q4H PRN PRN Reason: Diarrhea Lorazepam (Lorazepam 2 Mg/Ml Vial) 2 mg IM DAILY PRN PRN Reason: SIEZURE > 5 MINUTES Lorazepam (Lorazepam 0.5 Mg Tablet) 0.5 mg G-TUBE Q6H PRN PRN Reason: Anxiety Methylprednisolone Sodium Succinate (Methylprednisolone Sod Succ 40 Mg/Ml Vial) 20 mg IVPUSH Q12H [facility] Last Admin: 02/04/23 02:10 Dose: 20 mg Documented By: SHAHBAZ Midodrine (Midodrine Hcl 2.5 Mg Tablet) 7.5 mg G-TUBE TID [facility] Last Admin: 02/04/23 08:49 Dose: 7.5 mg Documented By: YARY Morphine Sulfate (Morphine Sulfate 2 Mg/Ml Cartridge) 2 mg IVPUSH Q4H PRN; Protocol PRN Reason: Pain, Severe (Pain Scale 7-10) Last Admin: 02/03/23 18:23 Dose: 2 mg Documented By: YARY Omeprazole (Omeprazole/Na Bicarb Oral Susp 20 Mg/10 Ml Ud Cup) 40 mg G-TUBE BID@0630,1630 [facility] Last Admin: 02/04/23 06:21 Dose: 40 mg Documented By: SHAHBAZ Ondansetron HCl (Ondansetron Hcl 4 Mg/2 Ml Vial) 4 mg IVPUSH Q8H PRN PRN Reason: Nausea and Vomiting Last Admin: 02/01/23 01:55 Dose: 4 mg Documented By: BALJINDER Pharmacy Consult (Consult Rx Perform Med Rec) 1 each MISCELLANE ONCE PRN PRN Reason: Consult order Pharmacy Consult (Consult Rx Vancomycin Dosing) 1 each MISCELLANE DAILY PRN PRN Reason: Consult order Scopolamine (Scopolamine 1.5 Mg Patch.Td.3) 1.5 mg TRANSDERMA Q3D [facility] Last Admin: 02/03/23 15:26 Dose: 1.5 mg Documented By: YARY Sodium Chloride (0.9 % Sodium Chloride Flush 3 Ml Syringe) 3 ml IVFLUSH QSHIFT [facility] Last Admin: 02/04/23 08:49 Dose: 3 ml Documented By: YARY Sucralfate (Sucralfate Oral Suspension 1 Gm/10 Ml Oral.Susp) 1 gm PO QIDACHS [facility] Last Admin: 02/04/23 08:48 Dose: 1 gm Documented By: YARY Trimethoprim/Sulfamethoxazole (Sulfameth/Trimet 800/160/20 Ml 20 Ml Oral.Susp) 20 ml PO MoWeFr@0900 [facility] Last Admin: 02/04/23 08:48 Dose: 20 ml Documented By: YARY Vancomycin HCl (Vancomycin Hcl Oral Solution 125 Mg/5 Ml Soln.Recon) 125 mg G-TUBE Q6H [facility] Last Admin: 02/04/23 06:21 Dose: 125 mg Documented By: SHAHBAZ Labs 02/04/23 05:09 02/04/23 05:09 Labs: Laboratory Results - last 24 hr 02/03/23 02/03/23 02/04/23 13:02 17:32 05:09 MCV 89.8 MCH 27.6 MCHC 30.8 L RDW 18.5 H Plt Count 143 L MPV 10.4 Absolute Nucleated RBC 0.000 Nucleated RBC % (auto) 0.0 Anion Gap Estim Creat Clear Calc Estimated GFR Random Glucose Calcium Random Vancomycin 14.0 L C. difficile Tox B Gene NEGATIVE 02/04/23 02/04/23 05:09 05:09 MCV MCH MCHC RDW Plt Count MPV Absolute Nucleated RBC Nucleated RBC % (auto) Anion Gap 10 L Estim Creat Clear Calc 89.3 Cancelled Estimated GFR > 60 Cancelled Random Glucose 136 H Calcium 8.3 L Random Vancomycin C. difficile Tox B Gene Assessment and Plan (1) Tracheostomy dependent: Status: Acute (2) GI bleed: Status: Acute (3) Acute on chronic blood loss anemia: Status: Acute (4) Acute and chronic respiratory failure with hypoxia: Status: Acute (5) Aspiration pneumonia: Status: Acute (6) Sepsis: Status: Acute (7) Acute hypernatremia: Status: Acute Plan ?a 52-year-old male with a PMH significant for?stage IV mantle cell lymphoma, [employer]YSICIST A[employer]ICS toxoplasmosis, acute on chronic respiratory failure with trach in place on 35% trach mask, normocytic anemia, BPH, urinary retention with chronic catheter in place, seizure disorder, G-tube in place, Pelvic OM on Vancomycin who presents to the ED from [facility] for evaluation of?Hypoxia and dark secretion from his trach. # Sepsis in the setting of acute on chronic Hypoxic respiratory failure 2/2 aspiration pneumonitis\pneumonia Sputum cx growing Pseudomonas and resistent Klebsiella ; both sensitive to Meropenem - continue Meropenem - Decrease IV Methylprednisolone - Pulm input appreciated, Trach changed to uncuffed - wean O2 down as tolerated # Acute on chronic blood loss anemia 2/2 GI bleed - H&H stable at 8.1, no further bleeding noted - s/p endoscopy by GI,, found to have esophagitis and gastritis - continue Omeprazole bid for 8 weeks - Sucralfate 1gm QID for 2 weeks - follow cbc - Transfusion if <7 # Hypotension - Bp currently stable - not due to sepsis - continue Midodrine - follow BP # acute HYpernatremia - resolved - follow BMP # chronic OM of pelvis - covered by vancomycin IV, plan for 6 weeks iv vanc (end february 06, 2023) - Vanco 1 gm q12 - follow Vancomycin trough # Stage IV mantle cell lymphoma - in remission # 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 Quality Stroke Does the patient have a stroke diagnosis?: No VTE Prior VTE?: No VTE Risk Level:: Medical - moderate - high VTE Device Contraindication: N/A - Device Ordered VTE Drug Contraindication: Treatment Not Indicated
[2023-02-04 15:12] VITALS: BP 102/78; PULSE 77; RESP 15; TEMP 36.1; O2SAT 91
--- NOTE | 2023-02-04 17:09 | W.PM.IDCN ---
History of Present Illness Data of Consult Service Date: 02/04/23 Requesting physician: Naheed Lee Primary Care Provider: Bettina Ortiz MD HPI Reason for consult: hypoxia,dark sputum from trach He presents with hypoxia to 80s as well as dark sputum from trach. Culture is pending. He was hospitalized with ulcers greater trochanter and is getting IV Vancomycin for six weeks. He has CD4 count of 100. He has had [employer] toxoplasmosis. Review of Systems Review of Systems: Yes all other systems are reviewed and are negative [facility] Past Medical History Medical History Anemia Appendicitis Chronic pain [employer] lymphoma Depression Encephalopathy H/O: RCT (rotator cuff tear) Kidney stone Mantle cell lymphoma Rectal bleeding Toxoplasmosis Tracheostomy dependent Functional capacity: bed bound Family History Family History Mother COPD (chronic obstructive pulmonary disease) Sister Colon cancer Family history: reviewed and not pertinent Surgical History Surgical History History of appendectomy Social History Social History Household Members: Unknown / Unable to assess Housing: Other Housing Other:: [facility]--[place] Unable to assess alcohol history related to: Unable to respond Alcohol intake: unknown Patient Tobacco Use Status: Never used Tobacco Substance Use Type: Marijuana service: No Current occupational status: unemployed Meds Allergies Allergy/AdvReac Type Severity Reaction Status Date / Time cyclobenzaprine [Flexeril] Allergy Unknown Palpitation Verified 09/22/20 15:41 s Active Medications: Current Medications Acetaminophen (Acetaminophen 325 Mg Tablet) 650 mg G-TUBE Q6H PRN PRN Reason: Pain, Mild (Pain Scale 1-3) Last Admin: 02/02/23 16:08 Dose: 650 mg Albuterol Sulfate (Albuterol Sulfate (0.083%) 2.5 Mg/3 Ml Vial.Neb) 2.5 mg INHALE Q4H PRN PRN Reason: Shortness Of Breath Or Wheezing Atovaquone (Atovaquone 750 Mg/5 Ml Oral.Susp) 750 mg G-TUBE BID [facility] Last Admin: 06/23/23 08:48 Dose: 750 mg Chlorhexidine Gluconate (Chlorhexidine Gluc Oral Rinse 15 Ml Mouthwash) 15 ml BUCCAL BID [facility] Last Admin: 02/04/23 08:48 Dose: 15 ml Collagenase (Collagenase Clostridium Hist. 30 Gm Tube) 1 appl TOPICAL DAILY [facility]; Protocol Last Admin: 02/04/23 08:49 Dose: 1 appl Doxazosin Mesylate (Doxazosin Mesylate 1 Mg Tablet) 1 mg G-TUBE BEDTIME [facility]; Protocol Last Admin: 02/03/23 22:47 Dose: Not Given Finasteride (Finasteride 5 Mg Tablet) 5 mg PO DAILY [facility] Last Admin: 02/04/23 08:49 Dose: 5 mg Vancomycin HCl 500 mg/ Sodium (Chloride) 110 mls @ 110 mls/hr IV Q12H [facility] Last Infusion: 02/04/23 07:54 Dose: Infused Meropenem 1 gm/ Sodium (Chloride) 100 mls @ 200 mls/hr IV Q8H [facility] Last Infusion: 02/04/23 14:20 Dose: Infused Lacosamide (Lacosamide 100 Mg Tablet) 200 mg G-TUBE BID [facility] Last Admin: 02/04/23 08:49 Dose: 200 mg Loperamide HCl (Loperamide Hcl 2 Mg Capsule) 2 mg G-TUBE Q4H PRN PRN Reason: Diarrhea Lorazepam (Lorazepam 2 Mg/Ml Vial) 2 mg IM DAILY PRN PRN Reason: SIEZURE > 5 MINUTES Lorazepam (Lorazepam 0.5 Mg Tablet) 0.5 mg G-TUBE Q6H PRN PRN Reason: Anxiety Methylprednisolone Sodium Succinate (Methylprednisolone Sod Succ 40 Mg/Ml Vial) 20 mg IVPUSH Q12H [facility] Last Admin: 02/04/23 12:56 Dose: 20 mg Midodrine (Midodrine Hcl 2.5 Mg Tablet) 7.5 mg G-TUBE TID [facility] Last Admin: 02/04/23 16:02 Dose: 7.5 mg Morphine Sulfate (Morphine Sulfate 2 Mg/Ml Cartridge) 2 mg IVPUSH Q4H PRN; Protocol PRN Reason: Pain, Severe (Pain Scale 7-10) Last Admin: 02/03/23 18:23 Dose: 2 mg Omeprazole (Omeprazole/Na Bicarb Oral Susp 20 Mg/10 Ml Ud Cup) 40 mg G-TUBE BID@0630,1630 [facility] Last Admin: 02/04/23 16:02 Dose: 40 mg Ondansetron HCl (Ondansetron Hcl 4 Mg/2 Ml Vial) 4 mg IVPUSH Q8H PRN PRN Reason: Nausea and Vomiting Last Admin: 02/01/23 01:55 Dose: 4 mg Pharmacy Consult (Consult Rx Perform Med Rec) 1 each MISCELLANE ONCE PRN PRN Reason: Consult order Pharmacy Consult (Consult Rx Vancomycin Dosing) 1 each MISCELLANE DAILY PRN PRN Reason: Consult order Scopolamine (Scopolamine 1.5 Mg Patch.Td.3) 1.5 mg TRANSDERMA Q3D [facility] Last Admin: 02/03/23 15:26 Dose: 1.5 mg Sodium Chloride (0.9 % Sodium Chloride Flush 3 Ml Syringe) 3 ml IVFLUSH QSHIFT [facility] Last Admin: 02/04/23 16:02 Dose: 3 ml Sucralfate (Sucralfate Oral Suspension 1 Gm/10 Ml Oral.Susp) 1 gm PO QIDACHS [facility] Last Admin: 02/04/23 16:02 Dose: 1 gm Trimethoprim/Sulfamethoxazole (Sulfameth/Trimet 800/160/20 Ml 20 Ml Oral.Susp) 20 ml PO MoWeFr@0900 [facility] Last Admin: 02/04/23 08:48 Dose: 20 ml Vancomycin HCl (Vancomycin Hcl Oral Solution 125 Mg/5 Ml Soln.Recon) 125 mg G-TUBE Q6H [facility] Last Admin: 02/04/23 12:56 Dose: 125 mg Home Medications Medication Instructions Recorded Confirmed Last Taken Type acetaminophen 325 mg tablet 650 mg feeding tube Q4H PRN Fever 01/02/23 01/31/23 01/02/23 08:00 History Or Pain acetaminophen 650 mg rectal 650 mg NJ Q4-6H PRN fever or pain 01/02/23 01/31/23 Unknown History suppository albuterol sulfate 2.5 mg/3 mL 2.5 mg inhalation Q4H PRN 01/02/23 01/31/23 Unknown History (0.083 %) solution for nebulization Shortness Of Breath Or Wheezing ascorbic acid (vitamin C) 250 mg 250 mg feeding tube DAILY 01/02/23 01/31/23 01/02/23 08:00 History tablet atovaquone 750 mg/5 mL oral 750 mg feeding tube BID 01/02/23 01/31/23 01/02/23 08:00 History suspension baclofen 10 mg tablet 5 mg feeding tube TID 01/02/23 01/31/23 01/02/23 05:22 History bisacodyl 10 mg rectal suppository 10 mg NJ DAILY PRN Constipation 01/02/23 01/31/23 Unknown History chlorhexidine gluconate 0.12 % 15 ml buccal BID 01/02/23 01/31/23 01/02/23 08:00 History mouthwash cholecalciferol (vitamin D3) 1,250 1,250 mcg feeding tube QMONTH 01/02/23 01/31/23 01/27/23 History mcg (50,000 unit) tablet cholestyramine-aspartame 4 gram 4 g feeding tube DAILY 01/02/23 01/31/23 01/02/23 08:00 History oral powder for susp in a packet (Cholestyramine Light) collagenase clostridium histo. 250 1 appl topical BID 01/02/23 01/31/23 01/02/23 08:00 History unit/gram topical ointment doxazosin 1 mg tablet 1 mg feeding tube BEDTIME 01/02/23 01/31/23 01/02/23 08:00 History famotidine 20 mg tablet 20 mg feeding tube BID 01/02/23 01/31/23 01/02/23 08:00 History ferrous sulfate 300 mg (60 mg 300 mg feeding tube DAILY 01/02/23 01/31/23 01/02/23 08:00 History iron)/5 mL oral liquid finasteride 5 mg tablet 5 mg feeding tube DAILY 01/02/23 01/31/23 01/02/23 08:00 History glycopyrrolate 1 mg tablet 1 mg feeding tube TID 01/02/23 01/31/23 01/02/23 05:00 History guaifenesin 200 mg/5 mL oral liquid 200 mg feeding tube Q4H PRN Cough 01/02/23 01/31/23 Unknown History lacosamide 200 mg tablet 200 mg feeding tube BID 01/02/23 01/31/23 01/02/23 08:00 History leucovorin calcium 25 mg tablet 25 mg feeding tube BEDTIME 01/02/23 01/31/23 Unknown History loperamide 2 mg capsule 2 mg feeding tube Q4H PRN Diarrhea 01/02/23 01/31/23 Unknown History lorazepam 0.5 mg tablet 0.5 mg feeding tube Q6H PRN Anxiety 01/02/23 01/31/23 01/02/23 00:48 History lorazepam 2 mg/mL injection See Rx Instructions .Route .COMPLEX 01/02/23 01/31/23 Unknown History solution magnesium hydroxide 400 mg/5 mL 30 ml feeding tube DAILY PRN 01/02/23 01/31/23 Unknown History oral suspension (Milk of Magnesia) Constipation melatonin 3 mg tablet 3 mg feeding tube BEDTIME 01/02/23 01/31/23 Unknown History midodrine 5 mg tablet 7.5 mg feeding tube TID 01/02/23 01/31/23 01/02/23 05:00 History morphine 10 mg/5 mL oral solution 5 mg feeding tube BID 01/02/23 01/31/23 01/02/23 08:00 History ondansetron HCl 2 mg/mL 4 mg IM Q4H PRN Nausea And Vomiting 01/02/23 01/31/23 Unknown History intravenous solution ondansetron HCl 4 mg tablet 4 mg feeding tube Q4H PRN Nausea 01/02/23 01/31/23 Unknown History And Vomiting oxycodone 5 mg tablet 5 mg feeding tube Q4H PRN Moderate 01/02/23 01/31/23 Unknown History Pain (Scale Score 5-6) scopolamine base 1 mg over 3 days 1 patch transdermal Q3D 01/02/23 01/31/23 Unknown History transdermal patch sennosides 8.6 mg-docusate sodium 1 tab-cap PO BID 01/02/23 01/31/23 01/02/23 08:00 History 50 mg tablet (Senna with Docusate Sodium) sodium phosphates 19 gram-7 118 ml NJ DAILY PRN Constipation 01/02/23 01/31/23 Unknown History gram/118 mL enema (Fleet Enema) tramadol 50 mg tablet 50 mg PO Q4H PRN Pain 01/02/23 01/31/23 Unknown History zinc sulfate 50 mg zinc (220 mg) 50 mg feeding tube BEDTIME 01/02/23 01/31/23 Unknown History tablet Saccharomyces boulardii 250 mg 250 mg PO BID 01/31/23 01/31/23 Unknown History capsule (Florastor) multivitamin 1 tab PO DAILY 01/31/23 01/31/23 Unknown History pyrimethamine 25 mg tablet 25 mg PO DAILY 01/31/23 01/31/23 Unknown History Physical Exam Vital Signs: Vital Signs: Last Vital Signs Temp 97.0 F 02/04/23 15:12 Pulse 77 02/04/23 15:12 Resp 15 02/04/23 15:12 BP 102/78 02/04/23 15:12 Pulse Ox 91 L 02/04/23 15:12 O2 Del Method Trach Collar 02/04/23 15:12 O2 Flow Rate 5 02/04/23 15:12 FiO2 28 02/04/23 15:12 Oxygen Flow Rate 10 01/31/23 05:26 BMI result Body Mass Index 19.2 Const: General: cooperative HEENT: Head: Yes normal to inspection Face and sinus: Yes normal facial exam Mouth: Normal oral and palatal mucosa present Teeth and gingiva: dentition normal Eyes: General: appearance normal, both eyes and all related structures Pupils: Equal, round and reactive pupils present Resp: Effort & Inspection: normal respiratory effort Cardio: Rate: regular rate Rhythm: regular rhythm GI: Palpation (GI): Soft to palpation and nontender : General: Yes no CVA tenderness Back/Spine/Pelvis: Back: no CVA tenderness Skin: General skin exam: no rashes or lesions noted Neuro: General: moves all extremities Cranial nerves: Yes Equal, round and reactive pupils present Extrem: Other: trach Psych: Appearance: grossly normal Results Labs 02/04/23 05:09 02/04/23 05:09 Labs: Short CBC 02/04/23 Range/Units 05:09 WBC 5.9 (4.8-10.8) X10*3/uL Hgb 8.1 L (14.0-18.0) g/dl Hct 26.3 L (42.0-52.0) % Plt Count 143 L (160-400) X10*3/uL BMP 02/04/23 02/04/23 05:09 05:09 Sodium 140 Potassium 3.8 D Chloride 106 Carbon Dioxide 28 BUN 16 Creatinine 0.80 Cancelled Calcium 8.3 L Microbiology Microbiology Results: Microbiology 01/31/23 07:58 Sputum - Suctioned Gram Stain - Final 01/31/23 07:58 Sputum - Suctioned Sputum Culture - Final Klebsiella pneumoniae Pseudomonas aeruginosa 01/31/23 08:00 Blood - Venous Blood Culture - Preliminary No growth after 48 hours. 01/31/23 08:00 Blood - Venous Blood Culture - Preliminary No growth after 48 hours. Assessment and Plan (1) Tracheostomy dependent: Status: Acute He has had dark sputum but now clearing. He has some probable mucus plugging (2) GI bleed: Status: Acute (3) Acute on chronic blood loss anemia: Status: Acute Plan Would continue Merem and Vancomycin for now. Stop IV antibiotics and give Doxycycline tomorrow if not bacteremic 10 days. Check HIV test Continue toxoplasmosis medication Time Spent With Patient Time: Total time managing care of this patient today ____ minutes.
[2023-02-04 17:36] LABS: Vancomycin Random 11.2 mcg/mL (15-20)
--- NOTE | 2023-02-04 17:46 | HE.PHANOTE ---
VANCO DOSING ADJUSTMENT BASED ON SCR AND NEW TROUGH OF 11.2. DOSE CHANGED TO 750 Q 12. NEXT TROUGH ON 02/05 @ 1700
[2023-02-04] MEDS: vancomycin HCL 750 MG in 0.9 % Sodium Chloride 250 ML 265 MG IV (17:58)
[2023-02-04 19:14] VITALS: BP 101/59; PULSE 77; RESP 14; TEMP 36.1; O2SAT 95
[2023-02-04] MEDS: Doxazosin Mesylate 1 MG TABLET G-TUBE (23:10)
[2023-02-04 23:44] VITALS: BP 94/62; PULSE 75; RESP 20; TEMP 36.2; O2SAT 98
[2023-02-05] MEDS: vancomycin HCL Oral Solution 125 MG/5 ML SOLN.RECON G-TUBE ×3 (02:14→11:09)
[2023-02-05] MEDS: methylPREDNISolone Sod Succ 40 MG/ML VIAL 20 MG IVPUSH ×2 (02:14→12:48)
[2023-02-05 03:20] VITALS: BP 99/64; PULSE 76; RESP 20; TEMP 36.1; O2SAT 95
[2023-02-05 06:34] LABS: Estimated Glomerular Filt Rate > 60
[2023-02-05] MEDS: Omeprazole/Na Bicarb Oral Susp 20 MG/10 ML UD Cup 40 MG G-TUBE ×2 (06:56→15:37)
[2023-02-05] MEDS: vancomycin HCL 750 MG in 0.9 % Sodium Chloride 250 ML 250 MG IV (06:56)
[2023-02-05] MEDS: Sucralfate Oral Suspension 1 GM/10 ML ORAL.SUSP PO ×3 (06:58→15:37)
[2023-02-05 07:17] VITALS: BP 101/66; PULSE 84; RESP 16; TEMP 36.9; O2SAT 92
[2023-02-05] MEDS: Midodrine HCl 2.5 MG TABLET 7.5 MG G-TUBE ×2 (08:49→15:37)
[2023-02-05] MEDS: Lacosamide 100 MG TABLET 200 MG G-TUBE (08:49)
[2023-02-05] MEDS: Atovaquone 750 MG/5 ML ORAL.SUSP G-TUBE (08:49)
[2023-02-05] MEDS: Finasteride 5 MG TABLET PO (08:49)
[2023-02-05] MEDS: 0.9 % Sodium Chloride Flush 3 ML SYRINGE IVFLUSH ×2 (08:49→15:37)
[2023-02-05] MEDS: Collagenase Clostridium Hist. 30 GM TUBE 1 APPL TOPICAL (08:50)
[2023-02-05] MEDS: Chlorhexidine Gluc Oral Rinse 15 ML MOUTHWASH BUCCAL (09:45)
--- NOTE | 2023-02-05 10:49 | P.PNIM_ITS ---
Subjective Subjective Date of Service: 02/05/23 Interval History: Patient seen and examined at bedside. No overnight events. Patient appears comfortable, unable to get much review of system from patient Physical Exam Vital Signs: Vital Signs: Last Vital Signs Temp 98.5 F 02/05/23 07:17 Pulse 84 02/05/23 07:17 Resp 16 02/05/23 07:17 BP 101/66 02/05/23 07:17 Pulse Ox 92 02/05/23 07:17 O2 Del Method Trach Collar 02/05/23 07:17 O2 Flow Rate 5 02/05/23 03:20 FiO2 28 02/05/23 07:17 Oxygen Flow Rate 10 01/31/23 05:26 BMI result Body Mass Index 19.2 Const: Other: Alert awake, oriented she cannot be assessed Resp: Other: Trach in place GI: Other: Abdomen is soft, nontender Extrem: Other: No pedal edema Objective Data Active Medications Acetaminophen (Acetaminophen 325 Mg Tablet) 650 mg G-TUBE Q6H PRN PRN Reason: Pain, Mild (Pain Scale 1-3) Last Admin: 02/02/23 16:08 Dose: 650 mg Documented By: JEANNETTE Albuterol Sulfate (Albuterol Sulfate (0.083%) 2.5 Mg/3 Ml Vial.Neb) 2.5 mg INHALE Q4H PRN PRN Reason: Shortness Of Breath Or Wheezing Atovaquone (Atovaquone 750 Mg/5 Ml Oral.Susp) 750 mg G-TUBE BID [facility] Last Admin: 02/05/23 08:49 Dose: 750 mg Documented By: BIANCA Chlorhexidine Gluconate (Chlorhexidine Gluc Oral Rinse 15 Ml Mouthwash) 15 ml BUCCAL BID [facility] Last Admin: 02/05/23 09:45 Dose: 15 ml Documented By: ZACHARY Collagenase (Collagenase Clostridium Hist. 30 Gm Tube) 1 appl TOPICAL DAILY [facility]; Protocol Last Admin: 02/05/23 08:50 Dose: 1 appl Documented By: BIANCA Doxazosin Mesylate (Doxazosin Mesylate 1 Mg Tablet) 1 mg G-TUBE BEDTIME [facility]; Protocol Last Admin: 02/04/23 23:10 Dose: 1 mg Documented By: BLAINE Finasteride (Finasteride 5 Mg Tablet) 5 mg PO DAILY [facility] Last Admin: 02/05/23 08:49 Dose: 5 mg Documented By: BIANCA Meropenem 1 gm/ Sodium (Chloride) 100 mls @ 200 mls/hr IV Q8H [facility] Last Infusion: 02/05/23 03:25 Dose: 0 mls/hr Documented By: BLAINE Vancomycin HCl 750 mg/ Sodium (Chloride) 265 mls @ 265 mls/hr IV Q12H [facility] Last Infusion: 02/05/23 08:00 Dose: 0 mls/hr Documented By: ZACHARY Lacosamide (Lacosamide 100 Mg Tablet) 200 mg G-TUBE BID [facility] Last Admin: 02/05/23 08:49 Dose: 200 mg Documented By: BIANCA Loperamide HCl (Loperamide Hcl 2 Mg Capsule) 2 mg G-TUBE Q4H PRN PRN Reason: Diarrhea Lorazepam (Lorazepam 2 Mg/Ml Vial) 2 mg IM DAILY PRN PRN Reason: SIEZURE > 5 MINUTES Lorazepam (Lorazepam 0.5 Mg Tablet) 0.5 mg G-TUBE Q6H PRN PRN Reason: Anxiety Methylprednisolone Sodium Succinate (Methylprednisolone Sod Succ 40 Mg/Ml Vial) 20 mg IVPUSH Q12H [facility] Last Admin: 02/05/23 02:14 Dose: 20 mg Documented By: BLAINE Midodrine (Midodrine Hcl 2.5 Mg Tablet) 7.5 mg G-TUBE TID [facility] Last Admin: 02/05/23 08:49 Dose: 7.5 mg Documented By: BIANCA Morphine Sulfate (Morphine Sulfate 2 Mg/Ml Cartridge) 2 mg IVPUSH Q4H PRN; Protocol PRN Reason: Pain, Severe (Pain Scale 7-10) Last Admin: 02/03/23 18:23 Dose: 2 mg Documented By: YARY Omeprazole (Omeprazole/Na Bicarb Oral Susp 20 Mg/10 Ml Ud Cup) 40 mg G-TUBE BID@0630,1630 [facility] Last Admin: 02/05/23 06:56 Dose: 40 mg Documented By: BLAINE Ondansetron HCl (Ondansetron Hcl 4 Mg/2 Ml Vial) 4 mg IVPUSH Q8H PRN PRN Reason: Nausea and Vomiting Last Admin: 02/01/23 01:55 Dose: 4 mg Documented By: BALJINDER Pharmacy Consult (Consult Rx Perform Med Rec) 1 each MISCELLANE ONCE PRN PRN Reason: Consult order Pharmacy Consult (Consult Rx Vancomycin Dosing) 1 each MISCELLANE DAILY PRN PRN Reason: Consult order Scopolamine (Scopolamine 1.5 Mg Patch.Td.3) 1.5 mg TRANSDERMA Q3D [facility] Last Admin: 02/03/23 15:26 Dose: 1.5 mg Documented By: YARY Sodium Chloride (0.9 % Sodium Chloride Flush 3 Ml Syringe) 3 ml IVFLUSH QSHIFT [facility] Last Admin: 02/05/23 08:49 Dose: 3 ml Documented By: BIANCA Sucralfate (Sucralfate Oral Suspension 1 Gm/10 Ml Oral.Susp) 1 gm PO QIDACHS [facility] Last Admin: 02/05/23 06:58 Dose: 1 gm Documented By: BLAINE Trimethoprim/Sulfamethoxazole (Sulfameth/Trimet 800/160/20 Ml 20 Ml Oral.Susp) 20 ml PO MoWeFr@0900 [facility] Last Admin: 02/04/23 08:48 Dose: 20 ml Documented By: YARY Vancomycin HCl (Vancomycin Hcl Oral Solution 125 Mg/5 Ml Soln.Recon) 125 mg G- TUBE Q6H [facility] Last Admin: 02/05/23 06:56 Dose: 125 mg Documented By: BLAINE Labs 02/04/23 05:09 02/05/23 05:49 Labs: Laboratory Results - last 24 hr 02/04/23 02/05/23 16:57 05:49 Estim Creat Clear Calc 84.0 Estimated GFR > 60 Random Vancomycin 11.2 L Microbiology Microbiology Results: Microbiology 01/31/23 08:00 Blood Culture - Final Blood - Venous No growth after 5 days. 01/31/23 08:00 Blood Culture - Final Blood - Venous No growth after 5 days. Assessment and Plan (1) Tracheostomy dependent: Status: Acute (2) GI bleed: Status: Acute (3) Acute on chronic blood loss anemia: Status: Acute (4) Acute and chronic respiratory failure with hypoxia: Status: Acute (5) Aspiration pneumonia: Status: Acute Plan ?a 52-year-old male with a PMH significant for?stage IV mantle cell lymphoma, [employer] toxoplasmosis, acute on chronic respiratory failure with trach in place on 35% trach mask, normocytic anemia, BPH, urinary retention with chronic catheter in place, seizure disorder, G-tube in place, Pelvic OM on Vancomycin who presents to the ED from [facility] for evaluation of?Hypoxia and dark secretion from his trach. # Sepsis in the setting of acute on chronic Hypoxic respiratory failure 2/2 aspiration pneumonitis\pneumonia - sepsis resolved - Sputum cx growing Pseudomonas and resistent Klebsiella ; both sensitive to Meropenem - continue Meropenem and vanco - Pulm input appreciated, Trach changed to uncuffed - wean O2 down as tolerated # Acute on chronic blood loss anemia 2/2 GI bleed - H&H stable , with no further bleed noted - s/p endoscopy by GI,, found to have esophagitis and gastritis - continue Omeprazole bid for 8 weeks, Sucralfate 1gm QID for 2 weeks - follow cbc - Transfusion if <7 # Hypotension - bp now stable - not due to sepsis - continue Midodrine - monitor bp # acute Hypernatremia - resolved - follow BMP # chronic OM of pelvis - covered by vancomycin IV, plan for 6 weeks iv vanc (end february 06, 2023) - Vanco 1 gm q12 - follow Vancomycin trough # Stage IV mantle cell lymphoma - in remission # [employer] toxoplasmosis due to immunosuppression from treatement for mantle cell lymphoma complicated by paraparesis, bed bound - continue atovaquone, leucovirin, bactrim in place of Pyrimethamine # BPH/urinary retention - Patient with chronic Rubio in place - Continue finasteride, doxazosin # Seizure disorder Continue lacosamide GERD Continue famotidine Full Code DVT Prophylaxis: Lovenox The patient will need overnight hospital stay for treatment of respiratory failure w aspiration and GIB and hypernatremia Time Spent With Patient Time: Total time managing care of this patient today ____ minutes. Quality Stroke Does the patient have a stroke diagnosis?: No VTE Prior VTE?: No VTE Risk Level:: Medical - moderate - high VTE Device Contraindication: N/A - Device Ordered VTE Drug Contraindication: Treatment Not Indicated
[2023-02-05 11:30] VITALS: BP 101/64; PULSE 78; RESP 16; TEMP 36.3; O2SAT 100
--- NOTE | 2023-02-05 12:25 | MHC.CM.PN ---
notified this CM that patient is ready to return to [facility] tomorrow am. This CM called [facility] to: 1.) confirm they intend on taking him back and 2.) inquire RE their w/e return process. [facility] indicates their policy is no return admits over the w/es D/T no providers available on Sat/Sun. [facility] also has requested that Pt please return Tuesday am should he still be stable/medically appropriate for D/C, and to please call them to arrange details of transfer. [facility] notified of plan by this CM. MD in agreement. CM to follow.
[2023-02-05] MEDS: Doxycycline Monohydrate 100 MG CAPSULE PO (12:48)
[2023-02-05 16:00] VITALS: BP 101/61; PULSE 87; RESP 14; TEMP 36.1; O2SAT 92
[2023-02-05 18:57] VITALS: BP 107/64; PULSE 90; RESP 15; TEMP 36.9; O2SAT 90
[2023-02-06] VITALS (7 sets, daily range): BP systolic 102–134; BP diastolic 66–76; PULSE 80–99; RESP 14–20; TEMP 36.1–36.9; O2SAT 92–97
[2023-02-06] MEDS: methylPREDNISolone Sod Succ 40 MG/ML VIAL 20 MG IVPUSH ×2 (00:10→09:23)
[2023-02-06] MEDS: Sucralfate Oral Suspension 1 GM/10 ML ORAL.SUSP PO ×5 (00:10→21:22)
[2023-02-06] MEDS: Chlorhexidine Gluc Oral Rinse 15 ML MOUTHWASH BUCCAL ×3 (00:10→21:21)
[2023-02-06] MEDS: Doxazosin Mesylate 1 MG TABLET G-TUBE ×2 (00:13→21:22)
[2023-02-06] MEDS: Atovaquone 750 MG/5 ML ORAL.SUSP G-TUBE ×3 (00:13→21:22)
[2023-02-06] MEDS: Doxycycline Monohydrate 100 MG CAPSULE PO ×2 (00:13→08:03)
[2023-02-06] MEDS: Loperamide HCl 2 MG CAPSULE G-TUBE (00:14)
[2023-02-06] MEDS: Midodrine HCl 2.5 MG TABLET 7.5 MG G-TUBE ×4 (00:14→21:22)
[2023-02-06] MEDS: Lacosamide 100 MG TABLET 200 MG G-TUBE ×3 (00:15→21:22)
[2023-02-06] MEDS: Omeprazole/Na Bicarb Oral Susp 20 MG/10 ML UD Cup 40 MG G-TUBE ×2 (06:16→15:37)
[2023-02-06] MEDS: Finasteride 5 MG TABLET PO (08:03)
[2023-02-06] MEDS: 0.9 % Sodium Chloride Flush 3 ML SYRINGE IVFLUSH ×3 (08:04→21:22)
[2023-02-06] MEDS: Collagenase Clostridium Hist. 30 GM TUBE 1 APPL TOPICAL (08:04)
--- NOTE | 2023-02-06 13:47 | HO.PM.IMPN ---
Subjective Subjective Date of Service: 02/06/23 Interval History: Seen and evaluated this morning BP stable Trach changed to cuffless O2 supplement down to 5L No other overnight events Review of Systems Review of Systems: Yes Unobtainable due to mental condition Physical Exam Vital Signs: Vital Signs: Last Vital Signs Temp 97.3 F 02/06/23 11:52 Pulse 80 02/06/23 11:52 Resp 18 02/06/23 11:52 BP 111/76 02/06/23 11:52 Pulse Ox 97 02/06/23 11:52 O2 Del Method Trach Collar 02/06/23 11:52 O2 Flow Rate 5 02/06/23 11:52 FiO2 28 02/06/23 11:52 Oxygen Flow Rate 10 01/31/23 05:26 BMI result Body Mass Index 19.2 Const: Other: Constitutional : Awake,? not in distress Neck : Normal inspection, Supple Cardiovascular : RRR, no JVP, no lower extremity edema Respiratory : fair bilateral air entry,? basal bilateral crackles, Trach with no significant secretions. on Trach mask Gastrointestinal:? soft, lax, Normal bowel sounds, G-tube in place, no significant tenderness Skin : Warm, Dry, decubetus ulcers, deep on the side with large puncture, dark discolored skin buttock area Neurological : Alert, No focal deficit but retracted Objective Data Active Medications Acetaminophen (Acetaminophen 325 Mg Tablet) 650 mg G-TUBE Q6H PRN PRN Reason: Pain, Mild (Pain Scale 1-3) Last Admin: 02/02/23 16:08 Dose: 650 mg Documented By: JEANNETTE Albuterol Sulfate (Albuterol Sulfate (0.083%) 2.5 Mg/3 Ml Vial.Neb) 2.5 mg INHALE Q4H PRN PRN Reason: Shortness Of Breath Or Wheezing Atovaquone (Atovaquone 750 Mg/5 Ml Oral.Susp) 750 mg G-TUBE BID [facility] Last Admin: 02/06/23 08:03 Dose: 750 mg Documented By: ZACHARY Chlorhexidine Gluconate (Chlorhexidine Gluc Oral Rinse 15 Ml Mouthwash) 15 ml BUCCAL BID RACHELL Last Admin: 02/06/23 08:03 Dose: 15 ml Documented By: ZACHARY Collagenase (Collagenase Clostridium Hist. 30 Gm Tube) 1 appl TOPICAL DAILY [facility]; Protocol Last Admin: 02/06/23 08:04 Dose: 1 appl Documented By: ZACHARY Doxazosin Mesylate (Doxazosin Mesylate 1 Mg Tablet) 1 mg G-TUBE BEDTIME [facility]; Protocol Last Admin: 02/06/23 00:13 Dose: 1 mg Documented By: BLAINE Doxycycline Monohydrate (Doxycycline Monohydrate 100 Mg Capsule) 100 mg PO BID [facility] Last Admin: 02/06/23 08:03 Dose: 100 mg Documented By: ZACHARY Finasteride (Finasteride 5 Mg Tablet) 5 mg PO DAILY [facility] Last Admin: 02/06/23 08:03 Dose: 5 mg Documented By: ZACHARY Lacosamide (Lacosamide 100 Mg Tablet) 200 mg G-TUBE BID [facility] Last Admin: 02/06/23 08:03 Dose: 200 mg Documented By: ZACHARY Loperamide HCl (Loperamide Hcl 2 Mg Capsule) 2 mg G-TUBE Q4H PRN PRN Reason: Diarrhea Last Admin: 02/06/23 00:14 Dose: 2 mg Documented By: BLAINE Methylprednisolone Sodium Succinate (Methylprednisolone Sod Succ 40 Mg/Ml Vial) 20 mg IVPUSH DAILY [facility] Last Admin: 02/06/23 09:23 Dose: 20 mg Documented By: ZACHARY Midodrine (Midodrine Hcl 2.5 Mg Tablet) 7.5 mg G-TUBE TID [facility] Last Admin: 02/06/23 08:03 Dose: 7.5 mg Documented By: ZACHARY Omeprazole (Omeprazole/Na Bicarb Oral Susp 20 Mg/10 Ml Ud Cup) 40 mg G-TUBE BID@0630,1630 [facility] Last Admin: 02/06/23 06:16 Dose: 40 mg Documented By: BLAINE Ondansetron HCl (Ondansetron Hcl 4 Mg/2 Ml Vial) 4 mg IVPUSH Q8H PRN PRN Reason: Nausea and Vomiting Last Admin: 02/01/23 01:55 Dose: 4 mg Documented By: BALJINDER Pharmacy Consult (Consult Rx Perform Med Rec) 1 each MISCELLANE ONCE PRN PRN Reason: Consult order Scopolamine (Scopolamine 1.5 Mg Patch.Td.3) 1.5 mg TRANSDERMA Q3D [facility] Last Admin: 02/03/23 15:26 Dose: 1.5 mg Documented By: YARY Sodium Chloride (0.9 % Sodium Chloride Flush 3 Ml Syringe) 3 ml IVFLUSH QSHIFT [facility] Last Admin: 02/06/23 08:04 Dose: 3 ml Documented By: ZACHARY Sucralfate (Sucralfate Oral Suspension 1 Gm/10 Ml Oral.Susp) 1 gm PO QIDACHS [facility] Last Admin: 02/06/23 12:50 Dose: 1 gm Documented By: ZACHARY Trimethoprim/Sulfamethoxazole (Sulfameth/Trimet 800/160/20 Ml 20 Ml Oral.Susp) 20 ml PO MoWeFr@0900 [facility] Last Admin: 02/04/23 08:48 Dose: 20 ml Documented By: YARY Labs 02/04/23 05:09 02/05/23 05:49 Microbiology Microbiology Results: Microbiology 01/31/23 08:00 Blood Culture - Final Blood - Venous No growth after 5 days. 01/31/23 08:00 Blood Culture - Final Blood - Venous No growth after 5 days. Assessment and Plan (1) Tracheostomy dependent: Status: Acute (2) Acute on chronic blood loss anemia: Status: Acute (3) Positive occult stool blood test: Status: Acute (4) Acute and chronic respiratory failure with hypoxia: Status: Acute (5) Aspiration pneumonia: Status: Acute Plan ?a 52-year-old male with a PMH significant for?stage IV mantle cell lymphoma, [employer]SULTING ARCHITECT toxoplasmosis, acute on chronic respiratory failure with trach in place on 35% trach mask, normocytic anemia, BPH, urinary retention with chronic catheter in place, seizure disorder, G-tube in place, Pelvic OM on Vancomycin who presents to the ED from [facility] for evaluation of?Hypoxia and dark secretion from his trach. # Sepsis in the setting of acute on chronic Hypoxic respiratory failure 2/2 aspiration pneumonitis\pneumonia - sepsis resolved - Sputum cx growing Pseudomonas and resistent Klebsiella ; both sensitive to Meropenem - Blood culture negative - DC Meropenem and vanco per ID and start PO Doxy - Pulm input appreciated, Trach changed to uncuffed - wean O2 down as tolerated # Acute on chronic blood loss anemia 2/2 GI bleed - H&H stable , with no further bleed noted - s/p endoscopy by GI,, found to have esophagitis and gastritis - continue Omeprazole bid for 8 weeks,? 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 Quality Stroke Does the patient have a stroke diagnosis?: No VTE Prior VTE?: No VTE Risk Level:: Medical - moderate - high VTE Device Contraindication: N/A - Device Ordered VTE Drug Contraindication: Treatment Not Indicated
[2023-02-06] MEDS: Scopolamine 1.5 MG PATCH.TD.3 TRANSDERMA (15:38)
[2023-02-06] MEDS: Doxycycline Monohydrate 100 MG CAPSULE G-TUBE (21:21)
[2023-02-07 03:21] VITALS: BP 104/74; PULSE 92; RESP 20; TEMP 36.8; O2SAT 100
[2023-02-07] MEDS: Omeprazole/Na Bicarb Oral Susp 20 MG/10 ML UD Cup 40 MG G-TUBE (06:36)
[2023-02-07 07:08] LABS: Hematocrit 28.8 % (42.0-52.0); Hemoglobin 9.1 g/dl (14.0-18.0); Mean Corpuscular HGB Conc 31.6 g/dl (31.0-36.0); Mean Corpuscular Hemoglobin 28.1 pg (27.0-33.0); Mean Corpuscular Volume 88.9 fL (80.0-98.0); Mean Platelet Volume 10.8 fL (9.4-12.4); Platelet Count 192 X10*3/uL (160-400); Red Blood Count 3.24 X10*6/uL (4.60-5.80); Red Cell Distribution Width 18.5 % (11.0-16.0); White Blood Count 6.1 X10*3/uL (4.8-10.8)
[2023-02-07 07:20] VITALS: BP 92/65; PULSE 94; RESP 18; TEMP 36; O2SAT 90
[2023-02-07] MEDS: Midodrine HCl 2.5 MG TABLET 7.5 MG G-TUBE (08:05)
[2023-02-07] MEDS: Chlorhexidine Gluc Oral Rinse 15 ML MOUTHWASH BUCCAL (08:05)
[2023-02-07] MEDS: Atovaquone 750 MG/5 ML ORAL.SUSP G-TUBE (08:05)
[2023-02-07] MEDS: Sulfameth/Trimet 800/160/20 ML 20 ML ORAL.SUSP PO (08:05)
[2023-02-07] MEDS: Sucralfate Oral Suspension 1 GM/10 ML ORAL.SUSP PO ×2 (08:05→11:48)
[2023-02-07] MEDS: Collagenase Clostridium Hist. 30 GM TUBE 1 APPL TOPICAL (08:06)
[2023-02-07] MEDS: predniSONE 20 MG TABLET G-TUBE (08:06)
[2023-02-07] MEDS: Doxycycline Monohydrate 100 MG CAPSULE G-TUBE (08:06)
[2023-02-07] MEDS: Lacosamide 100 MG TABLET 200 MG G-TUBE (08:06)
[2023-02-07 08:44] LABS: Anion Gap 12 (12-20); Blood Urea Nitrogen 21 mg/dL (9-16); Calcium 9.1 mg/dL (8.4-10.2); Carbon Dioxide 30 mmol/L (22-29); Chloride 103 mmol/L (96-108); Creatinine Clr Calc Pharmacy 82.1; Estimated Glomerular Filt Rate > 60; Glucose Random 109 mg/dL (60-115); Potassium 3.7 mmol/L (3.3-5.1); Sodium 141 mmol/L (135-145)
[2023-02-07 10:03] LABS: HIV AB/AG Nonreactive (Nonreactive); HIV Num 1 0.06 S/CO (0.00-0.99)
--- NOTE | 2023-02-07 11:07 | P.DS_ITS ---
DS: Providers Provider Date of Service: 02/07/23 Date of admission: 01/31/23 14:36 Primary care physician: Bettina Ortiz MD Consults: 01/31/23 14:41 Consult to Pulmonology Routine Consulting Provider: [facility] [place] Pulmonology Services Reason for consultation: Hypoxic failure, significant aspiration 01/31/23 16:01 Consult to Gastroenterology Routine Consulting Provider: Ivone Platt Reason for consultation: Black vomitus, +ve occult stool 02/03/23 10:52 Consult to Infectious Diseases Routine Consulting Provider: [facility] [place] Infectious Disease Reason for consultation: Pseudomonas and Klebsiella in sputum. 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 The patient was found hypoxic this morning at facility down to 80s. patient can not provide any history. he was suctioned brown-black color material. placed on higher O2 supplement. In ED found to by hypoxic in 70s, Tachycardic and responded well to increase O2 supplement and frequent suctions. Positive occult stool. CXR showing bilateral opacities. Admitted for further treatment. Hospital course The patient was admitted for treatment of Sepsis in the setting of acute on chronic Hypoxic respiratory failure secondary to aspiration pneumonia with pneumonitis as he presented with Cola color fluid in his lungs that was suctioned and tested positive for occult blood. Sputum cx growing Pseudomonas and resistent Klebsiella ; both sensitive to Meropenem which was initiated with good response as the secretion cleared and O2 supplement weaned down to his baseline. Blood culture negative. ID recommended to DC Meropenem and vanco per ID and start PO Doxy for 10 more days. Seen by Pulmonology team who did a Trach changed to uncuffed with good tolerence. Noted on admission to have Acute on chronic blood loss anemia secondary to GI bleed with stable H&H, noted to have upper GI bleed with bloody material going to his lungs. suctioned in ED and started IV PPI. no further bleed noted during admission. Evaluated by GI who did an endoscopy and, found to have esophagitis and gastritis with recommendations of Omeprazole bid for 8 weeks,? Sucralfate 1gm QID for 2 weeks. restarted tube feed diet with good tolerance. Treated for acute Hypernatremia with IV D5W with resolution. Has chronic OM of pelvis covered by vancomycin IV, plan for 6 weeks iv vanc which ended February 06, 2023. Vancomycin discontinued. Patient evaluated by wound nurse with recommendations below. Discharge plan Continue Doxycycline and PO Vancomycin as prescribed Continue Omeprazole and Carafate as prescribed Head elevation >45 degrees all the time aspiration precautions Dressing recommendations Per Wound team: 1. Left lateral foot- Cleanse the wound with normal saline or sea clens wound cleanser. Apply Collagenase Santyl ointment to the wound bed (crystal thick). Cover with gauze and secure with destiny wrap. If the skin starts to get macerated, may apply some zinc barrier cream to periwound. Change dressing daily. 2. Left heel- Cleanse the wound with normal saline or sea clens wound cleanser. Apply Collagenase Santyl ointment to the wound bed (crystal thick). Cover with gauze and secure with destiny wrap. If the skin starts to get macerated, may apply some zinc barrier cream to periwound. Change dressing daily. 3. Right lateral ankle- Cleanse the wound with normal saline or sea clens w ound cleanser. Apply Collagenase Santyl ointment to the wound bed (crystal thick). Cover with gauze and secure with destiny wrap. If the skin starts to get macerated, may apply some zinc barrier cream to periwound. Change dressing daily. 4. Left hip- Irrigate wound well with normal saline. Lightly pack wound with alginate ag. Cover with foam border. If the skin starts to get macerated, may apply some zinc barrier cream to periwound. Change dressing every other day, if drainage warrants may increase to daily dressing changes. 5. Left ischium- Cleanse the wound with normal saline or sea clens wound cleanser. Cut alginate ag to wound size and apply to the wound bed. Cover with a foam border. Because of the location of the wound, it may have to be changed more frequently because of soiling episodes but can be changed every other day to daily and PRN for soiling. 6. Right hip-? Irrigate wound well with normal saline. Lightly pack wound with alginate ag. Cover with foam border. If the skin starts to get macerated, may apply some zinc barrier cream to periwound. Change dressing every other day, if drainage warrants may increase to daily dressing changes. Time Spent with Patient Time attestation: Total time managing care of this patient today ____ minutes. Discharge coordination time: Greater than 30 minutes Quality: Safe Use of Opioids Does Pt have an Active Cancer Diagnosis on the Problem List?: No Quality: Stroke Does the patient have a stroke diagnosis?: No Physical Exam Vital Signs: Vital Signs: Last Vital Signs Temp 96.8 F 02/07/23 07:20 Pulse 94 02/07/23 07:20 Resp 18 02/07/23 07:20 BP 92/65 02/07/23 07:20 Pulse Ox 90 L 02/07/23 07:20 O2 Del Method Trach Collar 02/07/23 07:20 O2 Flow Rate 5 02/07/23 07:20 FiO2 28 02/07/23 07:20 Oxygen Flow Rate 10 01/31/23 05:26 BMI result Body Mass Index 19.2 Const: Other: Constitutional : Awake,? not in distress Neck : Normal inspection, Supple Cardiovascular : RRR, no JVP, no lower extremity edema Respiratory : fair bilateral air entry,? basal bilateral crackles, Trach with no significant secretions. on Trach mask Gastrointestinal:? soft, lax, Normal bowel sounds, G-tube in place, no significant tenderness Skin : Warm, Dry, decubetus ulcers, deep on the side with puncture,Stage III pressure ulcer on the Left lateral foot.?Unstageable pressure ulcer of the left heel.Unstageable pressure ulcer of the right lateral ankle.?Stage IV pressure ulcer on the left hip.Unstageable pressure ulcer on the left ischium. Stage IV pressure ulcer on the right hip. Neurological : Alert, No focal deficit but retracted DS: Data Data Completed and Pending Completed studies during hospitalization [Text1]: Pending at discharge 02/01/23 15:13 Surgical [PTH] Routine Procedures Insertion of Infusion Device into Superior Vena Cava, Percutaneous Approach (01/02/23) Ultrasonography of Superior Vena Cava, Guidance (01/02/23) Labs on day of discharge: Laboratory Results - last 24 hr 02/07/23 02/07/23 06:03 06:03 WBC 6.1 RBC 3.24 L Hgb 9.1 L Hct 28.8 L MCV 88.9 MCH 28.1 MCHC 31.6 RDW 18.5 H Plt Count 192 D MPV 10.8 Absolute Nucleated RBC 0.000 Nucleated RBC % (auto) 0.0 Sodium 141 Potassium 3.7 Chloride 103 Carbon Dioxide 30 H Anion Gap 12 BUN 21 H Creatinine 0.87 Estim Creat Clear Calc 82.1 Estimated GFR > 60 Random Glucose 109 Calcium 9.1 D Imaging Chest x-ray: Radiologist's impression: ITS Impressions Chest X-Ray 01/31/23 06:45 IMPRESSION: Bilateral lower lobe streaky opacities, left greater than right, suspicious for infiltrate at least on the left possibly related to aspiration. Chest X-Ray 02/01/23 10:19 IMPRESSION: Atelectasis or small infiltrate at the left lung base similar to yesterday's exam. Chest X-Ray 02/03/23 09:56 IMPRESSION: * Clear lungs. Discharge Plan Discharge Anticipated Discharge Date/Time: 02/07/23 10:59 Patient Disposition: Xfer [facility] Discharge Diagnosis: Acute hypoxia Aspiration pneumonia GI bleed Referrals: Bettina Ortiz MD [Primary Care Provider] - 1 Week Discharge Medications: New sucralfate 100 mg/mL Suspension 1 g PO QIDACHS 14 Days Qty: 560 0RF doxycycline monohydrate 100 mg Capsule 100 mg G-tube BID Qty: 16 0RF Konvomep 2-84 mg/mL Suspension For Reconstitution 40 mg G-tube BID@0630,1630 30 Days Qty: 27.906 0RF vancomycin 50 mg/mL recon soln 125 mg feeding tube QID 8 Days Qty: 80 0RF Continued glycopyrrolate 1 mg Tablet 1 mg feeding tube TID leucovorin calcium 25 mg Tablet 25 mg feeding tube BEDTIME doxazosin 1 mg Tablet 1 mg feeding tube BEDTIME midodrine 5 mg Tablet 7.5 mg feeding tube TID Rx Instructions: do not give last dose of day after 6PM or within 4 hrs of bedtime melatonin 3 mg Tablet 3 mg feeding tube BEDTIME famotidine 20 mg Tablet 20 mg feeding tube BID ascorbic acid (vitamin C) 250 mg Tablet 250 mg feeding tube DAILY baclofen 10 mg Tablet 5 mg feeding tube TID ferrous sulfate 300 mg (60 mg iron)/5 mL Liquid 300 mg feeding tube DAILY collagenase clostridium histo. 250 unit/gram Ointment 1 appl TOPICAL BID Rx Instructions: left heel, right malleolus, bilateral isschial areas, left lower buttock finasteride 5 mg Tablet 5 mg feeding tube DAILY atovaquone 750 mg/5 mL Suspension 750 mg feeding tube BID Rx Instructions: must administer with food, preferably a high-fat meal cholestyramine-aspartame [Cholestyramine Light] 4 gram Powder In Packet 4 g feeding tube DAILY Rx Instructions: administer w/meal; avoid other meds within 1hr before or 4-6hr after dose chlorhexidine gluconate 0.12 % Mouthwash 15 ml BUCCAL BID lacosamide 200 mg Tablet 200 mg feeding tube BID cholecalciferol (vitamin D3) 1,250 mcg (50,000 unit) Tablet 1,250 mcg feeding tube QMONTH Rx Instructions: MONTHLY ON DAY 15 OF THE MONTH acetaminophen 325 mg Tablet 650 mg feeding tube Q4H PRN (Reason: Fever Or Pain) acetaminophen 650 mg Suppository 650 mg IA Q4-6H PRN (Reason: fever or pain) albuterol sulfate 2.5 mg /3 mL (0.083 %) Solution For Nebulization 2.5 mg INHALATION Q4H PRN (Reason: Shortness Of Breath Or Wheezing) loperamide 2 mg Capsule 2 mg feeding tube Q4H PRN (Reason: Diarrhea) Rx Instructions: administer after each loose stool until symptoms controlled; do not exceed 8 mg per 24 hrs ondansetron HCl 2 mg/mL Solution 4 mg IM Q4H PRN (Reason: Nausea And Vomiting) ondansetron HCl 4 mg Tablet 4 mg feeding tube Q4H PRN (Reason: Nausea And Vomiting) sennosides-docusate sodium [Senna with Docusate Sodium] 8.6-50 mg Tablet 1 tab-cap PO BID tramadol 50 mg Tablet 50 mg PO Q4H PRN (Reason: Pain) zinc sulfate 50 mg zinc (220 mg) Tablet 50 mg feeding tube BEDTIME lorazepam 0.5 mg Tablet 0.5 mg feeding tube Q6H PRN (Reason: Anxiety) magnesium hydroxide [Milk of Magnesia] 400 mg/5 mL Suspension 30 ml feeding tube DAILY PRN (Reason: Constipation) bisacodyl 10 mg Suppository 10 mg IA DAILY PRN (Reason: Constipation) Fleet Enema 19-7 gram/118 mL Enema 118 ml IA DAILY PRN (Reason: Constipation) morphine 10 mg/5 mL Solution 5 mg feeding tube BID scopolamine base 1 mg over 3 days Patch 3 Day 1 patch TRANSDERMAL Q3D oxycodone 5 mg Tablet 5 mg feeding tube Q4H PRN (Reason: Moderate Pain (Scale Score 5-6)) guaifenesin 200 mg/5 mL Liquid 200 mg feeding tube Q4H PRN (Reason: Cough) lorazepam 2 mg/mL Solution See Rx Instructions .ROUTE .COMPLEX Rx Instructions: 2 mg intramuscularly as directed for seizure >5 minutes multivitamin Tablet 1 tab PO DAILY pyrimethamine 25 mg Tablet 25 mg PO DAILY Saccharomyces boulardii [Florastor] 250 mg Capsule 250 mg PO BID Discontinued vancomycin 1,000 mg recon soln 1 g IV Q12H 20 Days Qty: 40 0RF Discharge Orders: Discharge Order (Routine); Ordered 02/07/23 Ordered By: Patrick Pineda Diet: Advance to usual diet Activity on Discharge: As tolerated Stand Alone Forms: Patient Portal Discharge page Care Plan Goals: Read below Health Concerns: Read below Plan of Treatment: Read below Assessment: You were Admitted for evaluation of aspiration of gastric material. Found to have GI bleeding and evidence of pneumonia. Treated with IV antibitiotics and steroids with good response. Evaluated by GI who did upper endoscopy showing evidence of inflammation of esophagus and stomach. Continue Doxycycline and PO Vancomycin as prescribed Continue Omeprazole and Carafate as prescribed Head elevation >45 degrees all the time aspiration precautions
--- NOTE | 2023-02-07 11:37 | MHC.CLN ---
F/U PT CONTINUES WITH OSMOLITE 1.5 AT MAX GOAL RATE 60ML/HR CONTINUOUS WITH 240ML FREE WATER FLUSHES Q 6 HRS PROVIDES 2160KCALS (38KCALS/KG), 90G PROTEIN (1.6G/KG), 2057ML TOTAL WATER FROM FORMULA AND FLUSHES (336ML/KG) TOLERATING WELL PER NSG TF APPROPRIATE TO PROMOTE WOUND HEALING MONITOR TOLERANCE, RESIDUALS AND LYTES
[2023-02-07 11:59] VITALS: BP 104/61; PULSE 96; RESP 16; TEMP 36.6; O2SAT 92
--- NOTE | 2023-02-07 12:17 | MHC.CM.PN ---
Patient has been medically cleared for dc to return to LTC at [facility] today at 12:30 via [facility]. CM left a detailed message for HCP/Cornelius @ [phone], informing him of the dc plan.
--- NOTE | 2023-02-07 13:07 | HO.REMOVAL ---
Removal of PICC/Midline Removal of PICC/Midline: Removal of PICC: 1. Date: 02/07/23 2. Reason removed: NO LONGER NEEDED 3. Inserted length: 43CM SINGLE LUMEN PICC 4. Removed length: 43CM INTACT SINGLE LUMEN PICC 5. A dressing was placed over the site upon removal. No edema or bleeding at the site. PT TOLERATED THE REMOVAL
== END 2023-02-07 14:03 | DRG 720 ==
LOC: HO.ED 12:49 → HO.EDOVER 14:51 → HO.IMC 15:27
PROVIDERS: Internal Medicine; Physician Assistant; Admitting Provider Student in an Organized Health Care Education/Training Program; Emergency Provider Emergency Medicine Emergency Medical Services; PCP Pediatrics; Visit Provider Student in an Organized Health Care Education/Training Program
PROC: 0DJ08ZZ Inspection of Upper Intestinal Tract, Via Natural or Artificial Opening Endoscopic (ICD-10-PCS; CPT 43235; principal; 2023-02-01 14:20)
DX: A41.9 Sepsis, unspecified organism (principal); J96.21 Acute and chronic respiratory failure with hypoxia; J69.0 Pneumonitis due to inhalation of food and vomit; L89.154 Pressure ulcer of sacral region, stage 4; B58.9 Toxoplasmosis, unspecified; K29.71 Gastritis, unspecified, with bleeding; E44.0 Moderate protein-calorie malnutrition; C83.10 Mantle cell lymphoma, unspecified site; I95.9 Hypotension, unspecified; Z93.0 Tracheostomy status; D84.821 Immunodeficiency due to drugs; Z99.81 Dependence on supplemental oxygen; G40.909 Epilepsy, unspecified, not intractable, without status epilepticus; G82.20 Paraplegia, unspecified; E87.0 Hyperosmolality and hypernatremia; N40.1 Benign prostatic hyperplasia with lower urinary tract symptoms; K21.01 Gastro-esophageal reflux disease with esophagitis, with bleeding; R33.8 Other retention of urine; B96.1 Klebsiella pneumoniae [K. pneumoniae] as the cause of diseases classified elsewhere; B96.5 Pseudomonas (aeruginosa) (mallei) (pseudomallei) as the cause of diseases classified elsewhere; D62 Acute posthemorrhagic anemia; M86.68 Other chronic osteomyelitis, other site; Z68.1 Body mass index [BMI] 19.9 or less, adult; Z74.01 Bed confinement status; Z93.1 Gastrostomy status; Z79.899 Other long term (current) drug therapy
CPT/HCPCS: 36415; 71045; 80048; 80053; 80076; 80202; 82271; 82272; 82565; 82803; 83605; 83735; 83880; 84145; 85025; 85027; 85610; 85730; 86850; 86900; 86901; 87040; 87070; 87077; 87186; 87205; 87389; 87493; 88305; 88312; 88341; 88342; 93005; 99285; C1758; J2185; J2270; J2405; J2543; J2920; J3370; J3371

== ENCOUNTER 2023-04-07 12:09 | Outpatient (REF) | payer MEDICAID, SELFPAY | END 2023-04-07 12:10 | disposition home or self-care (01) | LOC: HO.WMHL 12:09 | PROVIDERS: Visit Provider Nurse Practitioner Acute Care | DX: R50.9 Fever, unspecified (principal); R82.90 Unspecified abnormal findings in urine | CPT/HCPCS: 81001; 87086; 87088; 87186 ==

== ENCOUNTER 2023-06-04 10:57 | Inpatient (IN) | payer MEDICAID, SELFPAY ==
--- NOTE | ~2023-06-04 | XR_ITS ---
EXAMINATION: XR CHEST CLINICAL INFORMATION: cough COMPARISON: 06/04/2023 TECHNIQUE: Frontal view of the chest was obtained. FINDINGS: Tracheostomy. The cardiomediastinal silhouette is stable. No pneumothorax. Increased left lower lung opacity concerning for pneumonia. Low lung volumes.. XR/XR chest 1V IMPRESSION: Increased left lower lung opacity concerning for pneumonia. This study was presented today 06/08/20 at 12:00 PM for interpretation. PSA staff will provide results to referring provider at this time.
--- NOTE | ~2023-06-04 | XR_ITS ---
EXAMINATION: XR CHEST CLINICAL INFORMATION: Sepsis. COMPARISON: Chest x-ray 02/03/2023. TECHNIQUE: Frontal view of the chest was obtained. FINDINGS: Tracheostomy. The cardiomediastinal silhouette is stable. The lungs are mildly hypoexpanded. No consolidation or effusion. The upper abdomen is unremarkable. No acute osseous abnormalities. XR/XR chest 1V IMPRESSION: No focal pneumonia.
--- NOTE | 2023-06-04 11:03 | ED.GENADULT ---
HPI - General Adult General Chief complaint: Upper Respiratory Symptoms Stated complaint: FEVER FROM [facility] Time Seen by Provider: 06/04/23 11:03 Source: EMS and RN notes reviewed Mode of arrival: EMS History of Present Illness HPI narrative: Patient 52 years old with history of stage IV mantle cell lymphoma, [employer] toxoplasmosis, chronic respiratory failure status post tracheostomy, BPH with chronic urinary retention with chronic Rubio catheter, seizure disorder, history of pelvic osteomyelitis came from [facility] for low blood pressure and Gram-negative bacteremia. Patient had urine done on 06/03 which showed positive nitrites and wbc's and started on ceftriaxone today noticed blood pressure in 80s and blood culture positive for Gram-negative rods 1 dose of cefepime was given at halfway patient does have history of Pseudomonas 04/06 in the urine and Klebsiella ESBL in 03/06 in the urine Related Data Home Medications Medication Instructions Recorded Confirmed acetaminophen 325 mg tablet 650 mg feeding tube Q4H PRN Fever 01/02/23 06/04/23 Or Pain albuterol sulfate 2.5 mg/3 mL 2.5 mg inhalation Q4H PRN 01/02/23 06/04/23 (0.083 %) solution for nebulization Shortness Of Breath Or Wheezing ascorbic acid (vitamin C) 250 mg 250 mg feeding tube DAILY 01/02/23 06/04/23 tablet atovaquone 750 mg/5 mL oral 750 mg feeding tube BIDWM 01/02/23 06/04/23 suspension baclofen 10 mg tablet 5 mg feeding tube TID 01/02/23 06/04/23 bisacodyl 10 mg rectal suppository 10 mg NM DAILY PRN Constipation 01/02/23 06/04/23 cholecalciferol (vitamin D3) 1,250 1,250 mcg feeding tube QMONTH 01/02/23 06/04/23 mcg (50,000 unit) tablet cholestyramine-aspartame 4 gram 4 g feeding tube BID 01/02/23 06/04/23 oral powder for susp in a packet (Cholestyramine Light) doxazosin 1 mg tablet 1 mg feeding tube BEDTIME 01/02/23 06/04/23 famotidine 20 mg tablet 20 mg feeding tube BID 01/02/23 01/31/23 ferrous sulfate 300 mg (60 mg 300 mg feeding tube DAILY 01/02/23 06/04/23 iron)/5 mL oral liquid finasteride 5 mg tablet 5 mg feeding tube DAILY 01/02/23 06/04/23 glycopyrrolate 1 mg tablet 1 mg feeding tube TID 01/02/23 06/04/23 guaifenesin 200 mg/5 mL oral liquid 200 mg feeding tube Q4H PRN Cough 01/02/23 06/04/23 lacosamide 200 mg tablet 200 mg feeding tube BID 01/02/23 06/04/23 leucovorin calcium 25 mg tablet 25 mg feeding tube BEDTIME 01/02/23 06/04/23 loperamide 2 mg capsule 2 mg feeding tube Q4H PRN Diarrhea 01/02/23 06/04/23 lorazepam 0.5 mg tablet 0.5 mg feeding tube Q6H PRN Anxiety 01/02/23 06/04/23 lorazepam 2 mg/mL injection See Rx Instructions .Route .COMPLEX 01/02/23 06/04/23 solution magnesium hydroxide 400 mg/5 mL 30 ml feeding tube DAILY PRN 01/02/23 06/04/23 oral suspension (Milk of Magnesia) Constipation melatonin 3 mg tablet 3 mg feeding tube BEDTIME 01/02/23 06/04/23 midodrine 5 mg tablet 7.5 mg feeding tube TID 01/02/23 06/04/23 morphine 10 mg/5 mL oral solution 10 mg feeding tube DAILY 01/02/23 06/04/23 ondansetron HCl 2 mg/mL 4 mg IM Q4H PRN Nausea And Vomiting 01/02/23 06/04/23 intravenous solution ondansetron HCl 4 mg tablet 4 mg feeding tube Q4H PRN Nausea 01/02/23 06/04/23 And Vomiting oxycodone 5 mg tablet 5 mg feeding tube Q4H PRN Moderate 01/02/23 06/04/23 Pain (Scale Score 5-6) scopolamine base 1 mg over 3 days 1 patch transdermal Q3D 01/02/23 06/04/23 transdermal patch sennosides 8.6 mg-docusate sodium 1 tab-cap PO BID PRN Constipation 01/02/23 06/04/23 50 mg tablet (Senna with Docusate Sodium) sodium phosphates 19 gram-7 118 ml NM DAILY PRN Constipation 01/02/23 06/04/23 gram/118 mL enema (Fleet Enema) tramadol 50 mg tablet 50 mg feeding tube Q4H PRN Pain 01/02/23 06/04/23 zinc sulfate 50 mg zinc (220 mg) 50 mg feeding tube DAILY 01/02/23 06/04/23 tablet multivitamin 1 tab feeding tube DAILY 01/31/23 06/04/23 pyrimethamine 25 mg tablet 50 mg feeding tube DAILY 01/31/23 06/04/23 betamethasone dipropionate 0.05 % 1 appl topical DAILY 06/04/23 06/04/23 topical ointment carboxymethylcellulose sodium 0.25 2 drp ophthalmic (eye) BID 06/04/23 06/04/23 % eye drops cefepime 1 gram solution for 2 g IM Q12H 06/04/23 06/04/23 injection esomeprazole magnesium 40 mg 40 mg PO DAILY 06/04/23 06/04/23 granules delayed release for susp morphine 10 mg/5 mL oral solution 5 mg feeding tube DAILY PRN Pain 06/04/23 06/04/23 sucralfate 1 gram tablet 1 g PO BID 06/04/23 06/04/23 Previous Rx's Medication Instructions Recorded doxycycline monohydrate 100 mg 100 mg G-tube BID #16 caps 02/07/23 capsule Allergies Allergy/AdvReac Type Severity Reaction Status Date / Time cyclobenzaprine [Flexeril] Allergy Unknown Palpitation Verified 09/22/20 15:41 s Review of Systems Review of Systems: Yes Unobtainable due to mental condition PMFSH Past Medical History Medical History Tracheostomy dependent Stage IV decubitus ulcer Osteomyelitis of pelvis Anemia Toxoplasmosis Encephalopathy [employer]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 Rectal bleeding H/O: RCT (rotator cuff tear) Depression Appendicitis Chronic pain Kidney stone Mantle cell lymphoma Surgical History History of appendectomy Family History Family History Mother COPD (chronic obstructive pulmonary disease) Sister Colon cancer Social History Social History Household Members: None Housing: Shelter Housing Other:: [facility] Do you presently have visiting nurse or other home services: No Unable to assess alcohol history related to: Unable to respond Alcohol intake: unknown Patient Tobacco Use Status: Never used Tobacco Smoked in Last 30 Days: No Use of substances other than those prescribed or required for medical reasons: Unable to respond Substance Use Type: Unknown Currently Displaying Signs/Symptoms of Drug Intoxication Withdrawal: No Advance Directives: Yes Advance Directives on File: Yes Advance Directives Date on File: 06/04/23 Recently lost weight without trying: Unsure Nutrition Risks: Receiving home tube feeding or CPN service: No Current occupational status: unemployed Physical Exam ED Vital Signs: Vital Signs - 24 hr 06/04/23 11:40 Temperature 96.9 F Pulse Rate 80 Respiratory Rate 20 Blood Pressure 91/58 L Pulse Oximetry 100 Oxygen Delivery Method Trach Collar BMI result Body Mass Index 22.1 Appearance: Alert. Tachycardic contracted status post tracheostomy Eyes: PERRLA, No Nystagmus ENT: Pharynx normal. Oral Mucosa moist stable tracheostomy with thick secretions Neck: Normal inspection. Neck supple. CVS: Normal heart rate and rhythm. Pulses normal. Respiratory: No respiratory distress. Equal air entry bilateral, no wheezing/rales/rhonchi Abdomen: Soft and nontender. Bowel sounds are present, no mass palpable, no CVA tenderness Skin: Skin warm and dry. Normal skin color. Normal skin turgor. Extremities: No lower extremity edema. Contacted posture Neuro: Alert awake Medications Administered Generic Name Dose Route Start Last Admin Trade Name Freq PRN Reason Stop Dose Admin Artificial Tears 2 drop 06/04/23 21:00 06/05/23 22:17 Artificial Tears 15 Ml Drops EYE-BOTH 2 drop BID RACHELL Administration Ascorbic Acid 250 mg 06/05/23 09:00 06/05/23 09:44 Ascorbic Acid 250 Mg Tablet G-TUBE 250 mg DAILY RACHELL Administration Atovaquone 750 mg 06/04/23 17:00 06/05/23 16:00 Atovaquone 750 Mg/5 Ml Oral.Susp G-TUBE 750 mg BIDWM RACHELL Administration Baclofen 5 mg 06/04/23 15:00 06/05/23 20:46 Baclofen 10 Mg Tablet G-TUBE 5 mg TID RACHELL Administration Enoxaparin Sodium 40 mg 06/04/23 13:00 06/05/23 13:30 Enoxaparin Sodium 40 Mg/0.4 Ml Syringe SUBCUT 40 mg Q24H RACHELL Administration Ferrous Sulfate 300 mg 06/05/23 09:00 06/05/23 09:42 Ferrous Sulfate 300 Mg/5 Ml Liquid G-TUBE 300 mg DAILY RACHELL Administration Finasteride 5 mg 06/05/23 09:00 06/05/23 09:42 Finasteride 5 Mg Tablet PO 5 mg DAILY RACHELL Administration Glycopyrrolate 1 mg 06/04/23 15:00 06/05/23 20:46 Glycopyrrolate 1 Mg Tablet G-TUBE 1 mg TID RACHELL Administration Cefepime HCl 2 gm/ Sodium 50 mls @ 100 mls/hr 06/04/23 13:00 06/05/23 14:27 Chloride IV Infused Q12H RACHELL Infusion Meropenem 1 gm/ Sodium 100 mls @ 200 mls/hr 06/05/23 11:45 06/05/23 21:41 Chloride IV Infused Q8H RACHELL Infusion Lacosamide 200 mg 06/04/23 21:00 06/05/23 20:46 Lacosamide 100 Mg Tablet G-TUBE 200 mg BID RACHELL Administration Leucovorin Calcium 25 mg 06/04/23 21:00 06/05/23 22:16 Leucovorin Calcium 5 Mg Tablet G-TUBE 25 mg BEDTIME RACHELL Administration Melatonin 3 mg 06/04/23 21:00 06/05/23 20:46 Melatonin 3 Mg Tablet G-TUBE 3 mg BEDTIME RACHELL Administration Midodrine 7.5 mg 06/04/23 15:00 06/05/23 20:45 Midodrine Hcl 2.5 Mg Tablet G-TUBE 7.5 mg TID RACHELL Administration Morphine Sulfate 10 mg 06/05/23 09:00 06/05/23 09:42 Morphine Sulfate Oral Cady 10 Mg/5 Ml Solution G-TUBE 10 mg DAILY RACHELL Administration Multivitamins/Vitamin C 1 tab 06/05/23 09:00 06/05/23 09:44 Multivitamin Tablet PO 1 tab DAILY RACHELL Administration Omeprazole 20 mg 06/05/23 06:30 06/05/23 06:36 Omeprazole 20 Mg Capsule.Dr PO 20 mg DAILY@0630 RACHELL Administration Scopolamine 1.5 mg 06/04/23 13:15 06/04/23 13:30 Scopolamine 1.5 Mg Patch.Td.3 TRANSDERMA 1.5 mg Q3D RACHELL Administration Sodium Chloride 3 ml 06/04/23 16:00 06/05/23 15:59 0.9 % Sodium Chloride Flush 3 Ml Syringe IVFLUSH 3 ml QSHIFT RACHELL Administration Sucralfate 1 gm 06/04/23 21:00 06/05/23 20:46 Sucralfate 1 Gm Tablet PO 1 gm BID RACHELL Administration Triamcinolone Acetonide 1 appl 06/05/23 09:00 06/05/23 10:39 Triamcinolone Acet 0.5 % Oint 15 Gm Tube TOPICAL Not Given DAILY RACHELL Trimethoprim/Sulfamethoxazole 1 tab 06/04/23 14:30 06/05/23 09:44 Sulfamethox/Trimeth 800/160 Tablet G-TUBE 1 tab DAILY RACHELL Administration Zinc Sulfate 220 mg 06/05/23 09:00 06/05/23 09:43 Zinc Sulfate 220 Mg Capsule G-TUBE 220 mg DAILY RACHELL Administration Discontinued Medications Generic Name Dose Route Start Last Admin Trade Name Freq PRN Reason Stop Dose Admin Ertapenem 1 gm/ Sodium 50 mls @ 100 mls/hr 06/04/23 11:06 06/04/23 12:24 Chloride IV 06/04/23 11:35 Infused ONCE ONE Infusion Sodium Chloride 2,000 mls @ 2,000 mls/hr 06/04/23 11:13 06/04/23 12:43 Ns IV 06/04/23 12:12 Infused .Q1H STA Infusion Medical Decision Making Medical Decision Making [facility] Narrative: Patient Gram-negative bacteremia with history of ESBL in the past already received cefepime and ceftriaxone at halfway with drop in blood pressure on arrival patient's blood pressures 91/58 restart patient on ertapenem admit Lab Data 06/05/23 06:25 06/05/23 06:25 Labs: Lab Results 06/04/23 06/04/23 06/04/23 Range/Units 11:27 11:28 11:33 WBC 7.7 (4.8-10.8) X10*3/uL RBC 3.60 L (4.60-5.80) X10*6/uL Hgb 9.4 L (14.0-18.0) g/dl Hct 30.5 L (42.0-52.0) % MCV 84.7 (80.0-98.0) fL MCH 26.1 L (27.0-33.0) pg MCHC 30.8 L (31.0-36.0) g/dl RDW 15.9 (11.0-16.0) % Plt Count 217 (160-400) X10*3/uL MPV 10.0 (9.4-12.4) fL Immature Gran % (Auto) 0.4 (0.0-0.4) % Neut % (Auto) 75.0 H (45-73) % Lymph % (Auto) 9.9 L (20-40) % Whitley % (Auto) 13.0 H (2-11) % Eos % (Auto) 1.3 (0-4) % Baso % (Auto) 0.4 (0-2) % Lymph # (Auto) 0.8 L (1.2-4.9) X10*3/uL Whitley # (Auto) 1.0 (0.1-1.2) X10*3/uL Eos # (Auto) 0.1 (0.0-0.4) X10*3/uL Baso # (Auto) 0.0 (0.0-0.2) X10*3/uL Abs Immat Gran (auto) 0.03 (0.00-0.03) X10*3/uL Absolute Neuts (auto) 5.8 (2.0-8.3) x10*3/uL Absolute Nucleated RBC 0.000 (0.0-0.012) X10*3/uL Nucleated RBC % (auto) 0.0 (0.0-0.2) /100WBC PT 13.7 H (11.1-13.3) SEC INR 1.1 (0.9-1.1) Sodium 138 (135-145) mmol/L Potassium 4.5 D (3.3-5.1) mmol/L Chloride 99 (96-108) mmol/L Carbon Dioxide 29 (22-29) mmol/L Anion Gap 15 (12-20) BUN 35 H (9-16) mg/dL Creatinine 0.89 (0.5-1.4) mg/dL Estim Creat Clear Calc 87.0 Estimated GFR > 60 Random Glucose 104 (60-115) mg/dL Lactic Acid 1.7 (0.5-2.0) mmol/L Calcium 9.7 D (8.4-10.2) mg/dL Magnesium 2.6 (1.6-2.6) mg/dL Total Bilirubin 0.2 (0.0-1.0) mg/dL AST 25 (5-37) U/L ALT 30 (0-40) U/L Alkaline Phosphatase 228 H (39-117) U/L Troponin I High Sens < 2.7 (<3.5-35.0) ng/L Total Protein 7.0 (6.5-8.0) g/dL Albumin 3.0 L (3.5-5.0) g/dL Urine Color Urine Appearance Urine pH (5.0-9.0) Ur Specific Naselle (1.005-1.025) Urine Protein (Neg-Trace) mg/dL Urine Glucose (UA) (Negative) mg/dL Urine Ketones (Negative) mg/dL Urine Blood (Negative) Urine Nitrite (Negative) Ur Leukocyte Esterase (Negative) Urine RBC (0-2) /HPF Urine WBC (0-5) /HPF Ur Squamous Epith Cells (0-2) /HPF Urine Bacteria (None Seen) Hyaline Casts (0-2) /LPF COVID-19 (LAURY) Negative (Negative) COVID-19 Clin Com See Note 06/04/23 Range/Units 12:25 WBC (4.8-10.8) X10*3/uL RBC (4.60-5.80) X10*6/uL Hgb (14.0-18.0) g/dl Hct (42.0-52.0) % MCV (80.0-98.0) fL MCH (27.0-33.0) pg MCHC (31.0-36.0) g/dl RDW (11.0-16.0) % Plt Count (160-400) X10*3/uL MPV (9.4-12.4) fL Immature Gran % (Auto) (0.0-0.4) % Neut % (Auto) (45-73) % Lymph % (Auto) (20-40) % Whitley % (Auto) (2-11) % Eos % (Auto) (0-4) % Baso % (Auto) (0-2) % Lymph # (Auto) (1.2-4.9) X10*3/uL Whitley # (Auto) (0.1-1.2) X10*3/uL Eos # (Auto) (0.0-0.4) X10*3/uL Baso # (Auto) (0.0-0.2) X10*3/uL Abs Immat Gran (auto) (0.00-0.03) X10*3/uL Absolute Neuts (auto) (2.0-8.3) x10*3/uL Absolute Nucleated RBC (0.0-0.012) X10*3/uL Nucleated RBC % (auto) (0.0-0.2) /100WBC PT (11.1-13.3) SEC INR (0.9-1.1) Sodium (135-145) mmol/L Potassium (3.3-5.1) mmol/L Chloride (96-108) mmol/L Carbon Dioxide (22-29) mmol/L Anion Gap (12-20) BUN (9-16) mg/dL Creatinine (0.5-1.4) mg/dL Estim Creat Clear Calc Estimated GFR Random Glucose (60-115) mg/dL Lactic Acid (0.5-2.0) mmol/L Calcium (8.4-10.2) mg/dL Magnesium (1.6-2.6) mg/dL Total Bilirubin (0.0-1.0) mg/dL AST (5-37) U/L ALT (0-40) U/L Alkaline Phosphatase (39-117) U/L Troponin I High Sens (<3.5-35.0) ng/L Total Protein (6.5-8.0) g/dL Albumin (3.5-5.0) g/dL Urine Color Yellow Urine Appearance Clear Urine pH 5.5 (5.0-9.0) Ur Specific Naselle 1.020 (1.005-1.025) Urine Protein 30 (1+) H (Neg-Trace) mg/dL Urine Glucose (UA) Negative (Negative) mg/dL Urine Ketones Negative (Negative) mg/dL Urine Blood Small (1+) H (Negative) Urine Nitrite Negative (Negative) Ur Leukocyte Esterase Moderate (2+) H (Negative) Urine RBC 6-10 H (0-2) /HPF Urine WBC 21-50 H (0-5) /HPF Ur Squamous Epith Cells 3-5 (0-2) /HPF Urine Bacteria None Seen (None Seen) Hyaline Casts 3-5 (0-2) /LPF COVID-19 (LAURY) (Negative) COVID-19 Clin Com Critical Care Time Critical Care Time Critical Care Time: Yes Total Critical Care Time: 65 Attestation: The patient was critically ill with a high probability of imminent or life threatening deterioration. I spent greater than 70 minutes of discontinuous time evaluating the patient,delivering critical care at the bedside, discussing and evaluating pertinent data with consultants. Critical care time does not include time spent performing separately billable procedures or teaching. Total time spent performing critical care was 65 minutes. Discharge Plan Discharge Clinical Impression: Bacteremia Patient Disposition: Admitted As Inpatient Interventions: Admission Worksheet (ED) Last Done: 06/04/23 15:41 Discharge Date/Time: 06/04/23 15:42
--- NOTE | 2023-06-04 11:04 | ECG_ITS ---
Test Reason : hypotension Blood Pressure : / mmHG Vent. Rate : 078 BPM Atrial Rate : 078 BPM P-R Int : 150 ms QRS Dur : 076 ms QT Int : 398 ms P-R-T Axes : 073 013 046 degrees QTc Int : 453 ms Normal sinus rhythm RSR' or QR pattern in V1 suggests right ventricular conduction delay Otherwise normal ECG When compared with ECG of 31-JAN-2023 08:42, Nonspecific T wave abnormality no longer evident in Lateral leads Heart rate has decreased T wave amplitude has increased in Anterolateral leads Referred By: Martin Mooney Electronically Signed By:CARLEY BHARDWAJ MD
[2023-06-04 11:34] LABS: MANUAL DIFF FLAG NO
[2023-06-04 11:35] LABS: Basophils Percent Auto 0.4 % (0-2); Eosinophils Absolute Auto 0.1 X10*3/uL (0.0-0.4); Eosinophils Percent Auto 1.3 % (0-4); Hematocrit 30.5 % (42.0-52.0); Hemoglobin 9.4 g/dl (14.0-18.0); Imm Gran Abs Auto 0.03 X10*3/uL (0.00-0.03); Imm Gran Pct Auto 0.4 % (0.0-0.4); Lymphocytes Absolute Auto 0.8 X10*3/uL (1.2-4.9); Lymphocytes Percent Auto 9.9 % (20-40); Mean Corpuscular HGB Conc 30.8 g/dl (31.0-36.0); Mean Corpuscular Hemoglobin 26.1 pg (27.0-33.0); Mean Corpuscular Volume 84.7 fL (80.0-98.0); Neutrophils Absolute Auto 5.8 x10*3/uL (2.0-8.3); Platelet Count 217 X10*3/uL (160-400); Red Cell Distribution Width 15.9 % (11.0-16.0); White Blood Count 7.7 X10*3/uL (4.8-10.8)
[2023-06-04 11:40] VITALS: BP 91/58; BP 92/64; PULSE 74; PULSE 80; RESP 20; TEMP 36.1; O2SAT 100; BMI 22.1
[2023-06-04 11:45] LABS: INTERNATIONAL NORM RATIO 1.1 (0.9-1.1); Prothrombin Time 13.7 SEC (11.1-13.3)
[2023-06-04] MEDS: 0.9 % Sodium Chloride 2,000 ML 2000 ML IV (11:48)
[2023-06-04] MEDS: Ertapenem Sodium 1 GM in 0.9 % Sodium Chloride 50 ML IV (11:49)
[2023-06-04 11:51] LABS: Lactic Acid 1.7 mmol/L (0.5-2.0)
[2023-06-04 11:52] LABS: Alanine Aminotransferase 30 U/L (0-40); Alkaline Phosphatase 228 U/L (39-117); Anion Gap 15 (12-20); Aspartate Amino Transferase 25 U/L (5-37); Bilirubin Total 0.2 mg/dL (0.0-1.0); Blood Urea Nitrogen 35 mg/dL (9-16); Calcium 9.7 mg/dL (8.4-10.2); Carbon Dioxide 29 mmol/L (22-29); Chloride 99 mmol/L (96-108); Estimated Glomerular Filt Rate > 60; Glucose Random 104 mg/dL (60-115); Magnesium 2.6 mg/dL (1.6-2.6); Potassium 4.5 mmol/L (3.3-5.1); Sodium 138 mmol/L (135-145)
--- NOTE | 2023-06-04 11:59 | P.HPHOSP_ITS ---
History of Present Illness Date of Service: 06/04/23 Attending physician on admission: Yana Delacruz Chief Complaint: Bacteremia Pt is a 52-year-old male with a PMH significant for?stage IV mantle cell lymphoma, MANAGER GAS toxoplasmosis, chronic respiratory failure, BPH with urinary retention and chronic catheter in place, seizure disorder, chronic trach collar and G-tube in place who presents to the ED from [facility] for evaluation of bacteremia with hypotension and possible sepsis. Patient with UTI and had 1/2 blood cultures positive negative rods. Patient was started on ceftriaxone at [facility] then switched to cefepime, however patient was noted to be hypotensive and staff at [facility] worried that antibiotic regimen was not sufficient and so sent patient to ED for further evaluation. Pt is nonverbal and bedbound at baseline, incapable of providing HPI. In the ED patient was afebrile with soft BP of 91/58, but otherwise hemodynamically stable without tachypnea or tachycardia. Labs were significant for H&H 9.4/30.5 (near baseline), BUN 35, alk-phos 228. No leukocytosis. Electrolytes WNL. Lactic acid WNL at 1.7. Initial troponin pending. EKG demonstrated normal sinus rhythm without evidence of significant ST elevations or depressions. Pt was treated with ertapenem and IVF. Pt will be admitted to the hospital for treatment and further evaluation of bacteremia with 1/2 blood cultures growing Gram-negative rods. Pt does not currently meet sepsis criteria. Review of Systems 2 Review of Systems: Unable to obtain due to patient's mentation [facility] Medical History Tracheostomy dependent Stage IV decubitus ulcer Osteomyelitis of pelvis Anemia Toxoplasmosis Encephalopathy MANAGER GAS lymphoma Rectal bleeding H/O: RCT (rotator cuff tear) Depression Appendicitis Chronic pain Kidney stone Mantle cell lymphoma Family History Mother COPD (chronic obstructive pulmonary disease) Sister Colon cancer Surgical History History of appendectomy Social History Household Members: None Housing: Detention Housing Other:: [facility]--[place] Do you presently have visiting nurse or other home services: No Unable to assess alcohol history related to: Unable to respond Alcohol intake: unknown Patient Tobacco Use Status: Never used Tobacco Smoked in Last 30 Days: No Use of substances other than those prescribed or required for medical reasons: Unable to respond Substance Use Type: Unknown Currently Displaying Signs/Symptoms of Drug Intoxication Withdrawal: No Advance Directives: Yes Advance Directives on File: Yes Advance Directives Date on File: 06/04/23 Recently lost weight without trying: Unsure Nutrition Risks: Receiving home tube feeding or CPN service: No Current occupational status: unemployed Meds Allergies Allergy/AdvReac Type Severity Reaction Status Date / Time cyclobenzaprine [Flexeril] Allergy Unknown Palpitation Verified 09/22/20 15:41 s Active Medications: Current Medications Sodium Chloride (Ns) 2,000 mls @ 2,000 mls/hr IV .Q1H STA Stop: 06/04/23 12:12 Last Admin: 06/04/23 11:48 Dose: 2,000 mls/hr Home Medications Medication Instructions Recorded Confirmed Last Taken Type acetaminophen 325 mg tablet 650 mg feeding tube Q4H PRN Fever 01/02/23 06/04/23 01/02/23 08:00 History Or Pain albuterol sulfate 2.5 mg/3 mL 2.5 mg inhalation Q4H PRN 01/02/23 06/04/23 Unknown History (0.083 %) solution for nebulization Shortness Of Breath Or Wheezing ascorbic acid (vitamin C) 250 mg 250 mg feeding tube DAILY 01/02/23 06/04/23 06/04/23 History tablet atovaquone 750 mg/5 mL oral 750 mg feeding tube BIDWM 01/02/23 06/04/23 06/04/23 08:28 History suspension baclofen 10 mg tablet 5 mg feeding tube TID 01/02/23 06/04/23 06/04/23 History bisacodyl 10 mg rectal suppository 10 mg TN DAILY PRN Constipation 01/02/23 06/04/23 Unknown History cholecalciferol (vitamin D3) 1,250 1,250 mcg feeding tube QMONTH 01/02/23 06/04/23 05/29/23 History mcg (50,000 unit) tablet cholestyramine-aspartame 4 gram 4 g feeding tube BID 01/02/23 06/04/23 06/04/23 08:28 History oral powder for susp in a packet (Cholestyramine Light) doxazosin 1 mg tablet 1 mg feeding tube BEDTIME 01/02/23 06/04/23 01/02/23 08:00 History famotidine 20 mg tablet 20 mg feeding tube BID 01/02/23 01/31/23 01/02/23 08:00 History ferrous sulfate 300 mg (60 mg 300 mg feeding tube DAILY 01/02/23 06/04/23 06/04/23 History iron)/5 mL oral liquid finasteride 5 mg tablet 5 mg feeding tube DAILY 01/02/23 06/04/23 06/04/23 History glycopyrrolate 1 mg tablet 1 mg feeding tube TID 01/02/23 06/04/23 06/04/23 05:27 History guaifenesin 200 mg/5 mL oral liquid 200 mg feeding tube Q4H PRN Cough 01/02/23 06/04/23 Unknown History lacosamide 200 mg tablet 200 mg feeding tube BID 01/02/23 06/04/23 06/04/23 History leucovorin calcium 25 mg tablet 25 mg feeding tube BEDTIME 01/02/23 06/04/23 Unknown History loperamide 2 mg capsule 2 mg feeding tube Q4H PRN Diarrhea 01/02/23 06/04/23 Unknown History lorazepam 0.5 mg tablet 0.5 mg feeding tube Q6H PRN Anxiety 01/02/23 06/04/23 01/02/23 00:48 History lorazepam 2 mg/mL injection See Rx Instructions .Route .COMPLEX 01/02/23 06/04/23 Unknown History solution magnesium hydroxide 400 mg/5 mL 30 ml feeding tube DAILY PRN 01/02/23 06/04/23 Unknown History oral suspension (Milk of Magnesia) Constipation melatonin 3 mg tablet 3 mg feeding tube BEDTIME 01/02/23 06/04/23 Unknown History midodrine 5 mg tablet 7.5 mg feeding tube TID 01/02/23 06/04/23 06/04/23 History morphine 10 mg/5 mL oral solution 10 mg feeding tube DAILY 01/02/23 06/04/23 06/04/23 History ondansetron HCl 2 mg/mL 4 mg IM Q4H PRN Nausea And Vomiting 01/02/23 06/04/23 Unknown History intravenous solution ondansetron HCl 4 mg tablet 4 mg feeding tube Q4H PRN Nausea 01/02/23 06/04/23 Unknown History And Vomiting oxycodone 5 mg tablet 5 mg feeding tube Q4H PRN Moderate 01/02/23 06/04/23 Unknown History Pain (Scale Score 5-6) scopolamine base 1 mg over 3 days 1 patch transdermal Q3D 01/02/23 06/04/23 Unknown History transdermal patch sennosides 8.6 mg-docusate sodium 1 tab-cap PO BID PRN Constipation 01/02/23 06/04/23 01/02/23 08:00 History 50 mg tablet (Senna with Docusate Sodium) sodium phosphates 19 gram-7 118 ml TN DAILY PRN Constipation 01/02/23 06/04/23 Unknown History gram/118 mL enema (Fleet Enema) tramadol 50 mg tablet 50 mg feeding tube Q4H PRN Pain 01/02/23 06/04/23 Unknown History zinc sulfate 50 mg zinc (220 mg) 50 mg feeding tube DAILY 01/02/23 06/04/23 06/04/23 History tablet multivitamin 1 tab feeding tube DAILY 01/31/23 06/04/23 06/04/23 History pyrimethamine 25 mg tablet 50 mg feeding tube DAILY 01/31/23 06/04/23 06/04/23 History betamethasone dipropionate 0.05 % 1 appl topical DAILY 06/04/23 06/04/23 06/04/23 History topical ointment carboxymethylcellulose sodium 0.25 2 drp ophthalmic (eye) BID 06/04/23 06/04/23 06/04/23 History % eye drops cefepime 1 gram solution for 2 g IM Q12H 06/04/23 06/04/23 06/04/23 02:26 History injection esomeprazole magnesium 40 mg 40 mg PO DAILY 06/04/23 06/04/23 06/04/23 History granules delayed release for susp morphine 10 mg/5 mL oral solution 5 mg feeding tube DAILY PRN Pain 06/04/23 06/04/23 Unknown History sucralfate 1 gram tablet 1 g PO BID 06/04/23 06/04/23 Unknown History Physical Exam 2 Vital Signs and Narrative: Vital Signs: Last Vital Signs Temp 96.9 F 06/04/23 11:40 Pulse 80 10/21/23 11:40 Resp 20 06/04/23 11:40 BP 91/58 L 06/04/23 11:40 Pulse Ox 100 06/04/23 11:40 O2 Del Method Trach Collar 06/04/23 11:40 Oxygen Flow Rate 3 06/04/23 11:40 BMI result Body Mass Index 22.1 General: Awake and alert, unable to assess orientation, no acute distress Resp: Trach in place, no respiratory distress CVS: S1, S2, RRR GI: +BS, NT, no distention Skin: multiple stage 3-4 pressure ulcers on bilateral hips and left buttock Extremities: No edema Results Labs 06/05/23 06:25 06/05/23 06:25 Labs: Laboratory Results - last 24 hr 06/04/23 06/04/23 11:27 11:33 MCV 84.7 MCH 26.1 L MCHC 30.8 L RDW 15.9 Plt Count 217 MPV 10.0 Immature Gran % (Auto) 0.4 Neut % (Auto) 75.0 H Lymph % (Auto) 9.9 L [place] % (Auto) 13.0 H Eos % (Auto) 1.3 Baso % (Auto) 0.4 Lymph # (Auto) 0.8 L [place] # (Auto) 1.0 Eos # (Auto) 0.1 Baso # (Auto) 0.0 Abs Immat Gran (auto) 0.03 Absolute Neuts (auto) 5.8 Absolute Nucleated RBC 0.000 Nucleated RBC % (auto) 0.0 PT 13.7 H INR 1.1 Anion Gap 15 Estim Creat Clear Calc 87.0 Estimated GFR > 60 Random Glucose 104 Lactic Acid 1.7 Calcium 9.7 D Magnesium 2.6 Total Bilirubin 0.2 AST 25 ALT 30 Alkaline Phosphatase 228 H Total Protein 7.0 Albumin 3.0 L Assessment and Plan (1) Bacteremia: Status: Acute Plan Pt is a 52-year-old male with a PMH significant for?stage IV mantle cell lymphoma, MANAGER GAS toxoplasmosis, chronic respiratory failure, BPH with urinary retention and chronic catheter in place, seizure disorder, chronic trach collar and G-tube in place who presents to the ED from [facility] for evaluation of bacteremia with hypotension and possible sepsis. Pt will be admitted to the hospital for treatment and further evaluation of bacteremia with 1/2 blood cultures growing Gram-negative rods. Bacteremia 1/2 blood cultures positive for Gram-negative rods Patient with history of ESBL Klebsiella, Pseudomonas Patient given ceftriaxone and cefepime at [facility], given ertapenem in the ED Will treat with meropenem, cefepime, started 06/04/2023 Patient does not meet sepsis criteria: Patient afebrile, no WBC, tachycardia, or tachypnea, lactic acid WNL at 1.7 ID consult Follow blood cultures Hypotension Patient sent to the ED from [facility] d/t hypotension, BP 91/58 at time of presentation Patient with chronically soft BP Patient received IVF in the ED Hold doxazosin for now Continue midodrine Monitor BP Chronic tracheostomy Tracheostomy care Deep suctioning as necessary MANAGER GAS toxoplasmosis due to immunosuppression from treatement for 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 Delacruz DVT Prophylaxis: Lovenox Pt will require a hospitalization of at least two nights for treatment of?bacteremia in the setting of UTI. Patient will be treated with IV antibiotics, close monitoring, and specialist consultation. Time Spent With Patient Time: Total time managing care of this patient today ____ minutes. Quality Stroke Does the patient have a stroke diagnosis?: No VTE Prior VTE?: No VTE Risk Level:: Medical - moderate - high VTE Device Contraindication: Treatment Not Indicated VTE Drug Contraindication: N/A - Med Ordered
[2023-06-04 12:06] LABS: Troponin-I High Sensitivity < 2.7 ng/L (<3.5-35.0)
[2023-06-04 12:19] LABS: COVID-19 Test Negative (Negative); IDNOW Serial# BCCEAD1C
--- NOTE | 2023-06-04 12:24 | PC.NURSE ---
RT at bedside performing deep suctioning; Radiology on standby for CXR; Septic workup complete, IVF resus in progress. IV ABX administered per MAR. VSS, appears in NAD. RR even and unlabored bilaterally on 3L trach dome. Single lumen indwelling rincon draining clear, bright yellow urine.
[2023-06-04 12:33] VITALS: PULSE 77; O2SAT 99
--- NOTE | 2023-06-04 12:33 | PC.NURSE ---
IP provider at bedside assessing patient.
[2023-06-04 12:34] LABS: Appearance Urine Clear; Color Urine Yellow; Glucose Urine UA Negative (Negative); Leukocyte Esterase Urine Moderate (2+) (Negative); Nitrite Urine Negative (Negative); PH 5.5 (5.0-9.0); UMIC TRIGGER UACC YES; Urine Blood Small (1+) (Negative); Urine Ketones Negative (Negative); Urine Protein 30 (1+) mg/dL (Neg-Trace)
[2023-06-04 12:46] VITALS: BP 99/70; PULSE 80; RESP 12; TEMP 36.1; O2SAT 99
--- NOTE | 2023-06-04 13:00 | PHA.MEDREC ---
Pharmacy Consult ? Medication Reconciliation Pharmacy has completed the medication reconciliation. Patient sent with list from [facility] PANTERA phillips
[2023-06-04 13:03] LABS: Bacteria Urine None Seen (None Seen); UACC Culture Trigger YES; WBC Urine 21-50 /HPF (0-5)
[2023-06-04] MEDS: Enoxaparin Sodium 40 MG/0.4 ML SYRINGE SUBCUT (13:30)
[2023-06-04] MEDS: Scopolamine 1.5 MG PATCH.TD.3 TRANSDERMA (13:30)
[2023-06-04] MEDS: cefEPime HCl 2 GM in 0.9 % Sodium Chloride 50 ML IV (13:30)
[2023-06-04 15:24] VITALS: BP 94/55; PULSE 76; RESP 19; TEMP 36.6; O2SAT 98
--- NOTE | 2023-06-04 15:29 | PC.NURSE ---
Report given to IP RN, preparing patient for transport.
[2023-06-04 15:50] VITALS: BP 99/65; PULSE 83; RESP 20; TEMP 36.3; O2SAT 100
[2023-06-04 16:39] VITALS: BMI 21.2
[2023-06-04] MEDS: Atovaquone 750 MG/5 ML ORAL.SUSP G-TUBE (16:43)
[2023-06-04] MEDS: Sulfamethox/Trimeth 800/160 TABLET 1 TAB G-TUBE (16:43)
[2023-06-04] MEDS: Midodrine HCl 2.5 MG TABLET 7.5 MG G-TUBE ×2 (16:43→21:55)
[2023-06-04] MEDS: Glycopyrrolate 1 MG TABLET G-TUBE ×2 (16:44→23:25)
[2023-06-04] MEDS: Baclofen 10 MG TABLET 5 MG G-TUBE ×2 (16:44→21:55)
[2023-06-04] MEDS: 0.9 % Sodium Chloride Flush 3 ML SYRINGE IVFLUSH (16:45)
[2023-06-04 19:40] VITALS: BP 99/59; PULSE 84; RESP 16; TEMP 36.1; O2SAT 100
[2023-06-04] MEDS: Melatonin 3 MG TABLET G-TUBE (21:55)
[2023-06-04] MEDS: Sucralfate 1 GM TABLET PO (21:55)
[2023-06-04] MEDS: Lacosamide 100 MG TABLET 200 MG G-TUBE (23:25)
[2023-06-05] MEDS: cefEPime HCl 2 GM in 0.9 % Sodium Chloride 50 ML IV ×2 (00:43→13:30)
[2023-06-05] MEDS: 0.9 % Sodium Chloride Flush 3 ML SYRINGE IVFLUSH ×3 (00:43→15:59)
[2023-06-05 03:16] VITALS: BP 99/55; PULSE 97; RESP 14; TEMP 37.3; O2SAT 97
[2023-06-05] MEDS: Omeprazole 20 MG CAPSULE.DR PO (06:36)
[2023-06-05 06:53] LABS: Anion Gap 14 (12-20); Blood Urea Nitrogen 19 mg/dL (9-16); Calcium 8.8 mg/dL (8.4-10.2); Carbon Dioxide 25 mmol/L (22-29); Chloride 106 mmol/L (96-108); Creatinine Clr Calc Pharmacy 95.6; Estimated Glomerular Filt Rate > 60; Glucose Random 105 mg/dL (60-115); Potassium 3.9 mmol/L (3.3-5.1); Sodium 141 mmol/L (135-145)
[2023-06-05 07:18] LABS: Hematocrit 27.1 % (42.0-52.0); Hemoglobin 8.4 g/dl (14.0-18.0); Mean Corpuscular Hemoglobin 25.7 pg (27.0-33.0); Mean Corpuscular Volume 82.9 fL (80.0-98.0); Mean Platelet Volume 10.1 fL (9.4-12.4); Platelet Count 223 X10*3/uL (160-400); Red Blood Count 3.27 X10*6/uL (4.60-5.80); Red Cell Distribution Width 15.9 % (11.0-16.0); White Blood Count 4.8 X10*3/uL (4.8-10.8)
[2023-06-05 07:22] VITALS: BP 107/65; PULSE 86; RESP 22; TEMP 36.8; O2SAT 99
--- NOTE | 2023-06-05 09:25 | MHC.CM.PN ---
Pt is non verbal and requires care for all ADL's. He has a HCP on file (Cornelius Arango CM left phone message with them. Plan is return to [facility].
[2023-06-05] MEDS: Ferrous Sulfate 300 MG/5 ML LIQUID G-TUBE (09:42)
[2023-06-05] MEDS: Atovaquone 750 MG/5 ML ORAL.SUSP G-TUBE ×2 (09:42→16:00)
[2023-06-05] MEDS: Morphine Sulfate Oral Sol 10 MG/5 ML SOLUTION G-TUBE (09:42)
[2023-06-05] MEDS: Finasteride 5 MG TABLET PO (09:42)
[2023-06-05] MEDS: Lacosamide 100 MG TABLET 200 MG G-TUBE ×2 (09:42→20:46)
[2023-06-05] MEDS: Midodrine HCl 2.5 MG TABLET 7.5 MG G-TUBE ×3 (09:42→20:45)
[2023-06-05] MEDS: Sucralfate 1 GM TABLET PO ×2 (09:42→20:46)
[2023-06-05] MEDS: Zinc Sulfate 220 MG CAPSULE G-TUBE (09:43)
[2023-06-05] MEDS: Baclofen 10 MG TABLET 5 MG G-TUBE ×3 (09:43→20:46)
[2023-06-05] MEDS: Sulfamethox/Trimeth 800/160 TABLET 1 TAB G-TUBE (09:44)
[2023-06-05] MEDS: Ascorbic Acid 250 MG TABLET G-TUBE (09:44)
[2023-06-05] MEDS: Multivitamin TABLET 1 TAB PO (09:44)
[2023-06-05] MEDS: Glycopyrrolate 1 MG TABLET G-TUBE ×3 (09:44→20:46)
--- NOTE | 2023-06-05 12:19 | PCS.ADM ---
Admission Admission Assessment Start: 06/04/23 15:52 Freq: .Upon Admission Status: Complete Protocol: Document 06/04/23 19:32 TIFFANIE (Rec: 06/04/23 19:40 TIFFANIE [id number]) General Questions Date of Arrival on Unit 06/04/23 Time of Arrival on Unit 15:45 Admitted From Admitting Mode of Arrival Stretcher Reason for Visit: Bacteremia History Provided By Unable to Obtain History Admission information reviewed with Unable to assess/ pt. is patient/family aphasic Preferred Language Stranding Supervisor Needed Yes Travel Outside the Country in the Last No 21 Days Neurological Neurological - Within Defined Parameters Yes, except Disoriented to Unable to assess Speech Pattern Aphasic Behavior Behavioral - Within Defined Parameters Yes, except Patient Behavior Quiet EENT EENT - Within Defined Parameters Yes, except Cardiovascular Cardiovascular - Within Defined Yes Parameters Respiratory Respiratory - Within Defined Parameters Yes, except Upper Lobe Breath Sounds Expiratory Rhonchi Description Moist,Productive Frequency Intermittent Amount Copious Consistency Thick Color Cream Respiratory Comment Trach in place Gastrointestinal Gastrointestinal - Within Defined Yes, except Parameters Abdomen Round Bowel Pattern Incontinent Gastrointestinal Comment G tube in place. Genitourinary Genitourinary - Within Defined Yes, except Parameters Urinary Device Type Indwelling Catheter Color Dark Yellow Integumentary Integumentary - Within Defined Yes, except Parameters Skin Problem Pressure Injury Integumentary Comment Bilateral hip pressure injury, left buttock Pressure injury, coccyx reddened- foam dsg applied to Bilat. hip with packing, Musculoskeletal Musculoskeletal - Within Defined Yes, except Parameters Generalized Muscle Strength/Movement Contractures,Limited ROM
[2023-06-05] MEDS: Enoxaparin Sodium 40 MG/0.4 ML SYRINGE SUBCUT (13:30)
--- NOTE | 2023-06-05 14:14 | P.PNIM_ITS ---
Subjective Subjective Date of Service: 06/05/23 Interval History: Nonverbal unable to obtain meaningful history, no acute events overnight , remains hemodynamically stable. Review of Systems Unable to obtain due to mental status/nonverbal. Physical Exam 2 Vital Signs: Vital Signs: Last Vital Signs Temp 98.3 F 06/05/23 07:22 Pulse 86 06/05/23 07:22 Resp 22 H 06/05/23 07:22 BP 107/65 06/05/23 07:22 Pulse Ox 99 06/05/23 07:22 O2 Del Method Trach Collar 06/05/23 07:22 O2 Flow Rate 3 06/04/23 15:50 Oxygen Flow Rate 3 06/04/23 12:33 BMI result Body Mass Index 22.1 Const: Other: Constitutional : Awake,?in no acute distress Neck : Trach in place with no secretions Cardiovascular : RRR, no JVD, no lower extremity edema Respiratory : Good bilateral air entry, no wheeze, no crackles Gastrointestinal:? soft, Normal bowel sounds, G-tube in place Skin : Multiple stage 3-4 pressure ulcers on bilateral hips and left buttock Neurological : Awake and alert unable to assess orientation. Objective Data Active Medications Acetaminophen (Acetaminophen 325 Mg Tablet) 650 mg G-TUBE Q4H PRN PRN Reason: Fever Or Pain Albuterol Sulfate (Albuterol Sulfate (0.083%) 2.5 Mg/3 Ml Vial.Neb) 2.5 mg INHALE Q4H PRN PRN Reason: Shortness Of Breath Or Wheezing Artificial Tears (Artificial Tears 15 Ml Drops) 2 drop EYE-BOTH BID [facility] Last Admin: 06/05/23 10:39 Dose: Not Given Documented By: TIFFANIE Non-Admin Reason: Med Not Available Ascorbic Acid (Ascorbic Acid 250 Mg Tablet) 250 mg G-TUBE DAILY [facility] Last Admin: 06/05/23 09:44 Dose: 250 mg Documented By: TIFFANIE Atovaquone (Atovaquone 750 Mg/5 Ml Oral.Susp) 750 mg G-TUBE BIDWM [facility] Last Admin: 06/05/23 09:42 Dose: 750 mg Documented By: TIFFANIE Baclofen (Baclofen 10 Mg Tablet) 5 mg G-TUBE TID [facility] Last Admin: 06/05/23 09:43 Dose: 5 mg Documented By: TIFFANIE Bisacodyl (Bisacodyl 10 Mg Supp.Rect) 10 mg MI DAILY PRN PRN Reason: Constipation Enoxaparin Sodium (Enoxaparin Sodium 40 Mg/0.4 Ml Syringe) 40 mg SUBCUT Q24H [facility] Last Admin: 06/05/23 13:30 Dose: 40 mg Documented By: TIFFANIE Ferrous Sulfate (Ferrous Sulfate 300 Mg/5 Ml Liquid) 300 mg G-TUBE DAILY [facility] Last Admin: 06/05/23 09:42 Dose: 300 mg Documented By: TIFFANIE Finasteride (Finasteride 5 Mg Tablet) 5 mg PO DAILY [facility] Last Admin: 06/05/23 09:42 Dose: 5 mg Documented By: TIFFANIE Glycopyrrolate (Glycopyrrolate 1 Mg Tablet) 1 mg G-TUBE TID [facility] Last Admin: 06/05/23 09:44 Dose: 1 mg Documented By: TIFFANIE Guaifenesin (Guaifenesin 100 Mg/5 Ml Liquid) 10 ml G-TUBE Q4H PRN PRN Reason: Cough Cefepime HCl 2 gm/ Sodium (Chloride) 50 mls @ 100 mls/hr IV Q12H [facility] Last Admin: 06/05/23 13:30 Dose: 100 mls/hr Documented By: TIFFANIE Meropenem 1 gm/ Sodium (Chloride) 100 mls @ 200 mls/hr IV Q8H [facility] Last Infusion: 06/05/23 13:16 Dose: Infused Documented By: TIFFANIE Lacosamide (Lacosamide 100 Mg Tablet) 200 mg G-TUBE BID [facility] Last Admin: 06/05/23 09:42 Dose: 200 mg Documented By: TIFFANIE Leucovorin Calcium (Leucovorin Calcium 5 Mg Tablet) 25 mg G-TUBE BEDTIME [facility] Last Admin: 06/04/23 23:31 Dose: Not Given Documented By: ROSLYN Non-Admin Reason: Med Not Available Loperamide HCl (Loperamide Hcl 2 Mg Capsule) 2 mg G-TUBE Q4H PRN PRN Reason: Diarrhea Lorazepam (Lorazepam 0.5 Mg Tablet) 0.5 mg G-TUBE Q6H PRN PRN Reason: Anxiety Magnesium Hydroxide (Milk Of Magnesia 30 Ml Oral.Susp) 30 ml G-TUBE DAILY PRN PRN Reason: Constipation Melatonin (Melatonin 3 Mg Tablet) 3 mg G-TUBE BEDTIME [facility] Last Admin: 06/04/23 21:55 Dose: 3 mg Documented By: ROSLYN Midodrine (Midodrine Hcl 2.5 Mg Tablet) 7.5 mg G-TUBE TID [facility] Last Admin: 06/05/23 09:42 Dose: 7.5 mg Documented By: TIFFANIE Morphine Sulfate (Morphine Sulfate Oral [place] 10 Mg/5 Ml Solution) 5 mg G-TUBE DAILY PRN PRN Reason: Pain, Severe (Pain Scale 7-10) Morphine Sulfate (Morphine Sulfate Oral Cady 10 Mg/5 Ml Solution) 10 mg G-TUBE DAILY [facility] Last Admin: 06/05/23 09:42 Dose: 10 mg Documented By: TIFFANIE Multivitamins/Vitamin C (Multivitamin Tablet) 1 tab PO DAILY [facility] Last Admin: 06/05/23 09:44 Dose: 1 tab Documented By: TIFFANIE Omeprazole (Omeprazole 20 Mg Capsule.Dr) 20 mg PO DAILY@0630 [facility] Last Admin: 06/05/23 06:36 Dose: 20 mg Documented By: ROSLYN Ondansetron HCl (Ondansetron Hcl 4 Mg/2 Ml Vial) 4 mg IVPUSH Q8H PRN PRN Reason: Nausea and Vomiting Oxycodone HCl (Oxycodone Hcl Immed Release 5 Mg Tablet) 5 mg G-TUBE Q4H PRN PRN Reason: Moderate Pain (Scale Score 5-6) Scopolamine (Scopolamine 1.5 Mg Patch.Td.3) 1.5 mg TRANSDERMA Q3D [facility] Last Admin: 06/04/23 13:30 Dose: 1.5 mg Documented By: JAMIL Senna/Docusate Sodium (Sennosides/Docusate Sodium Tablet) 1 tab PO BID PRN PRN Reason: Constipation Sodium Biphosphate/Sodium Phosphate (Sodium Phosphate,[place]-Dibasic 133 Ml Enema) 118 ml MI DAILY PRN PRN Reason: Constipation Sodium Chloride (0.9 % Sodium Chloride Flush 3 Ml Syringe) 3 ml IVFLUSH QSHIFT [facility] Last Admin: 06/05/23 09:42 Dose: 3 ml Documented By: TIFFANIE Sucralfate (Sucralfate 1 Gm Tablet) 1 gm PO BID [facility] Last Admin: 06/05/23 09:42 Dose: 1 gm Documented By: TIFFANIE Tramadol HCl (Tramadol Hcl 50 Mg Tablet) 50 mg G-TUBE Q4H PRN PRN Reason: Pain, Moderate(Pain Scale 4-6) Triamcinolone Acetonide (Triamcinolone Acet 0.5 % Oint 15 Gm Tube) 1 appl TOPICAL DAILY [facility] Last Admin: 06/05/23 10:39 Dose: Not Given Documented By: TIFFANIE Non-Admin Reason: Med Not Available Trimethoprim/Sulfamethoxazole (Sulfamethox/Trimeth 800/160 Tablet) 1 tab G-TUBE DAILY [facility] Last Admin: 06/05/23 09:44 Dose: 1 tab Documented By: TIFFANIE Zinc Sulfate (Zinc Sulfate 220 Mg Capsule) 220 mg G-TUBE DAILY [facility] Last Admin: 06/05/23 09:43 Dose: 220 mg Documented By: TIFFANIE Labs 06/05/23 06:25 06/05/23 06:25 Labs: Laboratory Results - last 24 hr 06/05/23 06:25 MCV 82.9 MCH 25.7 L MCHC 31.0 RDW 15.9 Plt Count 223 MPV 10.1 Absolute Nucleated RBC 0.000 Nucleated RBC % (auto) 0.0 Anion Gap 14 Estim Creat Clear Calc 95.6 Estimated GFR > 60 Random Glucose 105 Calcium 8.8 D Microbiology Microbiology Results: Microbiology 06/04/23 11:27 Blood Culture - Preliminary Blood - Venous No growth after 24 hours. 06/04/23 11:27 Blood Culture - Preliminary Blood - Venous No growth after 24 hours. 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 Pt will be admitted to the hospital for treatment and further evaluation of bacteremia with 1/2 blood cultures growing Gram-negative rods. Bacteremia No acute events overnight, no fevers, WBC normalized 1/2 blood cultures 06/03 positive for Gram-negative rods , urine culture from grew E coli, repeat blood cultures 06/04 negative times 24 hours Patient with history of ESBL Klebsiella, Pseudomonas recieved iv ceftriaxone and cefepime at [facility], given ertapenem in the ED cont. 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 Time Spent With Patient Time: Total time managing care of this patient today ____ minutes. Quality Stroke Does the patient have a stroke diagnosis?: No VTE Prior VTE?: No VTE Risk Level:: Medical - moderate - high VTE Device Contraindication: Treatment Not Indicated VTE Drug Contraindication: N/A - Med Ordered
[2023-06-05 15:15] VITALS: BP 122/72; PULSE 87; RESP 18; TEMP 37.1; O2SAT 97
[2023-06-05 19:46] VITALS: BP 90/57; PULSE 84; RESP 16; TEMP 36.9; O2SAT 95
[2023-06-05] MEDS: Melatonin 3 MG TABLET G-TUBE (20:46)
[2023-06-05] MEDS: Artificial Tears 15 ML DROPS 2 DROP EYE-BOTH (22:17)
[2023-06-06] MEDS: 0.9 % Sodium Chloride Flush 3 ML SYRINGE IVFLUSH ×3 (00:01→20:20)
[2023-06-06 00:02] VITALS: BP 99/56; PULSE 95; RESP 16; TEMP 37.2; O2SAT 94
[2023-06-06] MEDS: cefEPime HCl 2 GM in 0.9 % Sodium Chloride 50 ML IV (00:25)
[2023-06-06 08:00] VITALS: BP 101/56; PULSE 109; RESP 17; TEMP 37.9; O2SAT 96
--- NOTE | 2023-06-06 09:00 | PM.CNPUL ---
History of Present Illness History of Present Illness Consult date: 06/06/23 Chief complaint: Bacteremia Narrative: Pt is a 52-year-old male with a PMH significant for?stage IV mantle cell lymphoma, [employer] toxoplasmosis, chronic respiratory failure, BPH with urinary retention and chronic catheter in place, seizure disorder, chronic trach collar and G-tube in place who presents to the ED from [facility] for evaluation of bacteremia with hypotension and possible sepsis. Patient with UTI and had 1/2 blood cultures positive negative rods. Patient was started on ceftriaxone at [facility] then switched to cefepime, however patient was noted to be hypotensive and staff at [facility] worried that antibiotic regimen was not sufficient and so sent patient to ED for further evaluation. Pt is nonverbal and bedbound at baseline, incapable of providing HPI. For but the hospital here he has been developing worsening secretions from the tracheostomy. He is requiring frequent suctioning at this point. The aspirate appears to be purulent in nature. Concerning for the possibility of a nosocomial infection. He is already on broad-spectrum antibiotics for his urosepsis. Review of Systems Review of Systems: Yes Unobtainable due to mental status [facility] Past Medical History Medical History (Updated 06/06/23 @ 09:05 by Hammad Higgins MD) Aspiration into airway Tracheostomy dependent Stage IV decubitus ulcer Osteomyelitis of pelvis Anemia Toxoplasmosis Encephalopathy [employer] lymphoma Rectal bleeding H/O: RCT (rotator cuff tear) Depression Appendicitis Chronic pain Kidney stone Mantle cell lymphoma Family History Family History Mother COPD (chronic obstructive pulmonary disease) Sister Colon cancer Surgical History Surgical History History of appendectomy Social History Social History Household Members: None Housing: [facility] Housing Other:: [facility] Do you presently have visiting nurse or other home services: No Unable to assess alcohol history related to: Unable to respond Alcohol intake: unknown Patient Tobacco Use Status: Never used Tobacco Smoked in Last 30 Days: No Use of substances other than those prescribed or required for medical reasons: Unable to respond Substance Use Type: Unknown Currently Displaying Signs/Symptoms of Drug Intoxication Withdrawal: No Advance Directives: Yes Advance Directives on File: Yes Advance Directives Date on File: 06/04/23 Recently lost weight without trying: Unsure Nutrition Risks: Receiving home tube feeding or CPN service: No Current occupational status: unemployed Meds Allergies Allergy/AdvReac Type Severity Reaction Status Date / Time cyclobenzaprine [Flexeril] Allergy Unknown Palpitation Verified 09/22/20 15:41 s Active Medications: Current Medications Acetaminophen (Acetaminophen 325 Mg Tablet) 650 mg G-TUBE Q4H PRN PRN Reason: Fever Or Pain Albuterol Sulfate (Albuterol Sulfate (0.083%) 2.5 Mg/3 Ml Vial.Neb) 2.5 mg INHALE Q4H PRN PRN Reason: Shortness Of Breath Or Wheezing Artificial Tears (Artificial Tears 15 Ml Drops) 2 drop EYE-BOTH BID [facility] Last Admin: 06/05/23 22:17 Dose: 2 drop Ascorbic Acid (Ascorbic Acid 250 Mg Tablet) 250 mg G-TUBE DAILY [facility] Last Admin: 06/05/23 09:44 Dose: 250 mg Atovaquone (Atovaquone 750 Mg/5 Ml Oral.Susp) 750 mg G-TUBE BIDWM [facility] Last Admin: 06/05/23 16:00 Dose: 750 mg Baclofen (Baclofen 10 Mg Tablet) 5 mg G-TUBE TID [facility] Last Admin: 06/05/23 20:46 Dose: 5 mg Bisacodyl (Bisacodyl 10 Mg Supp.Rect) 10 mg NJ DAILY PRN PRN Reason: Constipation Enoxaparin Sodium (Enoxaparin Sodium 40 Mg/0.4 Ml Syringe) 40 mg SUBCUT Q24H [facility] Last Admin: 06/05/23 13:30 Dose: 40 mg Ferrous Sulfate (Ferrous Sulfate 300 Mg/5 Ml Liquid) 300 mg G-TUBE DAILY [facility] Last Admin: 06/05/23 09:42 Dose: 300 mg Finasteride (Finasteride 5 Mg Tablet) 5 mg PO DAILY [facility] Last Admin: 06/05/23 09:42 Dose: 5 mg Glycopyrrolate (Glycopyrrolate 1 Mg Tablet) 1 mg G-TUBE TID [facility] Last Admin: 06/05/23 20:46 Dose: 1 mg Guaifenesin (Guaifenesin 100 Mg/5 Ml Liquid) 10 ml G-TUBE Q4H PRN PRN Reason: Cough Meropenem 1 gm/ Sodium (Chloride) 100 mls @ 200 mls/hr IV Q8H [facility] Last Infusion: 06/06/23 05:13 Dose: Infused Lacosamide (Lacosamide 100 Mg Tablet) 200 mg G-TUBE BID [facility] Last Admin: 06/05/23 20:46 Dose: 200 mg Leucovorin Calcium (Leucovorin Calcium 5 Mg Tablet) 25 mg G-TUBE BEDTIME [facility] Last Admin: 06/05/23 22:16 Dose: 25 mg Loperamide HCl (Loperamide Hcl 2 Mg Capsule) 2 mg G-TUBE Q4H PRN PRN Reason: Diarrhea Lorazepam (Lorazepam 0.5 Mg Tablet) 0.5 mg G-TUBE Q6H PRN PRN Reason: Anxiety Magnesium Hydroxide (Milk Of Magnesia 30 Ml Oral.Susp) 30 ml G-TUBE DAILY PRN PRN Reason: Constipation Melatonin (Melatonin 3 Mg Tablet) 3 mg G-TUBE BEDTIME [facility] Last Admin: 06/05/23 20:46 Dose: 3 mg Midodrine (Midodrine Hcl 2.5 Mg Tablet) 7.5 mg G-TUBE TID [facility] Last Admin: 06/05/23 20:45 Dose: 7.5 mg Morphine Sulfate (Morphine Sulfate Oral Cady 10 Mg/5 Ml Solution) 5 mg G-TUBE DAILY PRN PRN Reason: Pain, Severe (Pain Scale 7-10) Morphine Sulfate (Morphine Sulfate Oral Cady 10 Mg/5 Ml Solution) 10 mg G-TUBE DAILY [facility] Last Admin: 06/05/23 09:42 Dose: 10 mg Multivitamins/Vitamin C (Multivitamin Tablet) 1 tab PO DAILY [facility] Last Admin: 06/05/23 09:44 Dose: 1 tab Omeprazole (Omeprazole/Na Bicarb Oral Susp 20 Mg/10 Ml Ud Cup) 20 mg G-TUBE DAILY@0630 [facility] Ondansetron HCl (Ondansetron Hcl 4 Mg/2 Ml Vial) 4 mg IVPUSH Q8H PRN PRN Reason: Nausea and Vomiting Oxycodone HCl (Oxycodone Hcl Immed Release 5 Mg Tablet) 5 mg G-TUBE Q4H PRN PRN Reason: Moderate Pain (Scale Score 5-6) Scopolamine (Scopolamine 1.5 Mg Patch.Td.3) 1.5 mg TRANSDERMA Q3D [facility] Last Admin: 06/04/23 13:30 Dose: 1.5 mg Senna/Docusate Sodium (Sennosides/Docusate Sodium Tablet) 1 tab PO BID PRN PRN Reason: Constipation Sodium Biphosphate/Sodium Phosphate (Sodium Phosphate,Burleson-Dibasic 133 Ml Enema) 118 ml NJ DAILY PRN PRN Reason: Constipation Sodium Chloride (0.9 % Sodium Chloride Flush 3 Ml Syringe) 3 ml IVFLUSH QSHIFT [facility] Last Admin: 06/06/23 00:01 Dose: 3 ml Sucralfate (Sucralfate 1 Gm Tablet) 1 gm PO BID [facility] Last Admin: 06/05/23 20:46 Dose: 1 gm Tramadol HCl (Tramadol Hcl 50 Mg Tablet) 50 mg G-TUBE Q4H PRN PRN Reason: Pain, Moderate(Pain Scale 4-6) Triamcinolone Acetonide (Triamcinolone Acet 0.5 % Oint 15 Gm Tube) 1 appl TOPICAL DAILY [facility] Last Admin: 06/05/23 10:39 Dose: Not Given Trimethoprim/Sulfamethoxazole (Sulfamethox/Trimeth 800/160 Tablet) 1 tab G-TUBE DAILY [facility] Last Admin: 06/05/23 09:44 Dose: 1 tab Zinc Sulfate (Zinc Sulfate 220 Mg Capsule) 220 mg G-TUBE DAILY [facility] Last Admin: 06/05/23 09:43 Dose: 220 mg Home Medications Medication Instructions Recorded Confirmed Last Taken Type acetaminophen 325 mg tablet 650 mg feeding tube Q4H PRN Fever 01/02/23 06/04/23 01/02/23 08:00 History Or Pain albuterol sulfate 2.5 mg/3 mL 2.5 mg inhalation Q4H PRN 01/02/23 06/04/23 Unknown History (0.083 %) solution for nebulization Shortness Of Breath Or Wheezing ascorbic acid (vitamin C) 250 mg 250 mg feeding tube DAILY 01/02/23 06/04/23 06/04/23 History tablet atovaquone 750 mg/5 mL oral 750 mg feeding tube BIDWM 01/02/23 06/04/23 06/04/23 08:28 History suspension baclofen 10 mg tablet 5 mg feeding tube TID 01/02/23 06/04/23 06/04/23 History bisacodyl 10 mg rectal suppository 10 mg NJ DAILY PRN Constipation 01/02/23 06/04/23 Unknown History cholecalciferol (vitamin D3) 1,250 1,250 mcg feeding tube QMONTH 01/02/23 06/04/23 05/29/23 History mcg (50,000 unit) tablet cholestyramine-aspartame 4 gram 4 g feeding tube BID 01/02/23 06/04/23 06/04/23 08:28 History oral powder for susp in a packet (Cholestyramine Light) doxazosin 1 mg tablet 1 mg feeding tube BEDTIME 01/02/23 06/04/23 01/02/23 08:00 History famotidine 20 mg tablet 20 mg feeding tube BID 01/02/23 01/31/23 01/02/23 08:00 History ferrous sulfate 300 mg (60 mg 300 mg feeding tube DAILY 01/02/23 06/04/23 06/04/23 History iron)/5 mL oral liquid finasteride 5 mg tablet 5 mg feeding tube DAILY 01/02/23 06/04/23 06/04/23 History glycopyrrolate 1 mg tablet 1 mg feeding tube TID 01/02/23 06/04/23 06/04/23 05:27 History guaifenesin 200 mg/5 mL oral liquid 200 mg feeding tube Q4H PRN Cough 01/02/23 06/04/23 Unknown History lacosamide 200 mg tablet 200 mg feeding tube BID 01/02/23 06/04/23 06/04/23 History leucovorin calcium 25 mg tablet 25 mg feeding tube BEDTIME 01/02/23 06/04/23 Unknown History loperamide 2 mg capsule 2 mg feeding tube Q4H PRN Diarrhea 01/02/23 06/04/23 Unknown History lorazepam 0.5 mg tablet 0.5 mg feeding tube Q6H PRN Anxiety 01/02/23 06/04/23 01/02/23 00:48 History lorazepam 2 mg/mL injection See Rx Instructions .Route .COMPLEX 01/02/23 06/04/23 Unknown History solution magnesium hydroxide 400 mg/5 mL 30 ml feeding tube DAILY PRN 01/02/23 06/04/23 Unknown History oral suspension (Milk of Magnesia) Constipation melatonin 3 mg tablet 3 mg feeding tube BEDTIME 01/02/23 06/04/23 Unknown History midodrine 5 mg tablet 7.5 mg feeding tube TID 01/02/23 06/04/2306/04/23 History morphine 10 mg/5 mL oral solution 10 mg feeding tube DAILY 01/02/23 06/04/23 06/04/23 History ondansetron HCl 2 mg/mL 4 mg IM Q4H PRN Nausea And Vomiting 01/02/23 06/04/23 Unknown History intravenous solution ondansetron HCl 4 mg tablet 4 mg feeding tube Q4H PRN Nausea 01/02/23 06/04/23 Unknown History And Vomiting oxycodone 5 mg tablet 5 mg feeding tube Q4H PRN Moderate 01/02/23 06/04/23 Unknown History Pain (Scale Score 5-6) scopolamine base 1 mg over 3 days 1 patch transdermal Q3D 01/02/23 06/04/23 Unknown History transdermal patch sennosides 8.6 mg-docusate sodium 1 tab-cap PO BID PRN Constipation 01/02/23 06/04/23 01/02/23 08:00 History 50 mg tablet (Senna with Docusate Sodium) sodium phosphates 19 gram-7 118 ml NJ DAILY PRN Constipation 01/02/23 06/04/23 Unknown History gram/118 mL enema (Fleet Enema) tramadol 50 mg tablet 50 mg feeding tube Q4H PRN Pain 01/02/23 06/04/23 Unknown History zinc sulfate 50 mg zinc (220 mg) 50 mg feeding tube DAILY 01/02/23 06/04/23 06/04/23 History tablet multivitamin 1 tab feeding tube DAILY 01/31/23 06/04/23 06/04/23 History pyrimethamine 25 mg tablet 50 mg feeding tube DAILY 01/31/23 06/04/23 06/04/23 History betamethasone dipropionate 0.05 % 1 appl topical DAILY 06/04/23 06/04/23 06/04/23 History topical ointment carboxymethylcellulose sodium 0.25 2 drp ophthalmic (eye) BID 06/04/23 06/04/23 06/04/23 History % eye drops cefepime 1 gram solution for 2 g IM Q12H 06/04/23 06/04/23 06/04/23 02:26 History injection esomeprazole magnesium 40 mg 40 mg PO DAILY 06/04/23 06/04/23 06/04/23 History granules delayed release for susp morphine 10 mg/5 mL oral solution 5 mg feeding tube DAILY PRN Pain 06/04/23 06/04/23 Unknown History sucralfate 1 gram tablet 1 g PO BID 06/04/23 06/04/23 Unknown History Physical Exam Vital Signs: Vital Signs: Last Vital Signs Temp 100.2 F 06/06/23 08:00 Pulse 109 H 06/06/23 08:00 Resp 17 06/06/23 08:00 BP 101/56 L 06/06/23 08:00 Pulse Ox 96 06/06/23 08:00 O2 Del Method Trach Collar 06/06/23 08:00 O2 Flow Rate 5.0 06/06/23 08:00 Oxygen Flow Rate 3 06/04/23 12:33 BMI result Body Mass Index 21.2 Const: General: patient obtunded Orientation/consciousness: patient obtunded HEENT: Head: Yes atraumatic Neck: Neck: Yes tracheostomy present Chest: Chest palpation & inspection: normal inspection of the chest Resp: Effort & Inspection: normal respiratory effort Auscultation: diminished lung sounds Cardio: Heart sounds: S1 normal heart sound present and S2 normal heart sound present GI: Inspection: Yes G-tube present Palpation (GI): Soft to palpation Skin: General skin exam: no rashes or lesions noted Neuro: General: patient obtunded Extrem: General: No cyanosis Results Laboratory Findings 06/05/23 06:25 06/05/23 06:25 ABG, PT/INR, D-dimer: PT/INR, D-dimer PT 13.7 SEC (11.1-13.3) H 06/04/23 11:33 INR 1.1 (0.9-1.1) 06/04/23 11:33 Abnormal lab findings: Abnormal Labs 06/04/23 06/04/23 06/04/23 11:27 11:33 12:25 RBC 3.60 L Hgb 9.4 L Hct 30.5 L MCH 26.1 L MCHC 30.8 L Neut % (Auto) 75.0 H Lymph % (Auto) 9.9 L Burleson % (Auto) 13.0 H Lymph # (Auto) 0.8 L PT 13.7 H BUN 35 H Alkaline Phosphatase 228 H Albumin 3.0 L Urine Protein 30 (1+) H Urine Blood Small (1+) H Ur Leukocyte Esterase Moderate (2+) H Urine RBC 6-10 H Urine WBC 21-50 H 06/05/23 06:25 RBC 3.27 L Hgb 8.4 L Hct 27.1 L MCH 25.7 L MCHC Neut % (Auto) Lymph % (Auto) Burleson % (Auto) Lymph # (Auto) PT BUN 19 H Alkaline Phosphatase Albumin Urine Protein Urine Blood Ur Leukocyte Esterase Urine RBC Urine WBC Microbiology: Microbiology 06/04/23 11:27 Blood - Venous Blood Culture - Preliminary No growth after 24 hours. 06/04/23 11:27 Blood - Venous Blood Culture - Preliminary No growth after 24 hours. Assessment and Plan (1) Aspiration into airway: Qualifiers: Encounter type: initial encounter Qualified Code(s): T17.908A - Unspecified foreign body in respiratory tract, part unspecified causing other injury, initial encounter Status: Acute (2) Tracheitis: Status: Acute (3) Tracheostomy dependent: Status: Acute Plan Sputum culture Add chlorhexadine mouthwash BID HOB elevated trach care continue current antibiotics repeat CXR Time Spent With Patient Time: Total time managing care of this patient today ____ minutes. Procedures Date of Service Date of Service: 06/06/23
[2023-06-06 09:10] VITALS: BMI 21.2
--- NOTE | 2023-06-06 09:25 | MHC.CLN ---
NUTRITION CONSULT FOR TUBE FEEDING. PATIENT NPO AND REQUIRES NUTRITION/HYDRATION VIA PEG. APPEARS WELL NOURISHED. INCREASED NUTRITION NEEDS DUE TO IMPAIRED SKIN INTEGRITY: LEFT BUTTOCKS UNSTAGEABLE, LEFT HIP STAGE IV, RIGHT HIP GREATER THAN STAGE 4. CURRENT TUBE FEEDING/FLUSH ORDER APPEARS TO BE MEETING ESTIMATED NEEDS. MAX GOAL RATE OSMOLITE 1.5 AT 60 ML PER HOUR CONTINUOUS, FREE WATER FLUSH 240 ML Q 6 HOURS. TUBE FEED AND FLUSH PROVIDE 2160 KCALS (36.2 KCALS/KG); 90 G PROTEIN (1.51 G/KG); FREE WATER FROM FORMULA AND FLUSH 2057 ML (34.5 ML/KG). TOLERATING CURRENT TUBE FEEDING AT MAX GOAL RATE 60 ML/HOUR. FOLLOW FOR TUBE FEED TOLERANCE, RESIDUALS AND LABS. SEE CLINICAL NUTRITION ASSESSMENT 06/06/23.
[2023-06-06] MEDS: Atovaquone 750 MG/5 ML ORAL.SUSP G-TUBE ×2 (09:38→17:25)
[2023-06-06] MEDS: Glycopyrrolate 1 MG TABLET G-TUBE ×3 (09:39→19:46)
[2023-06-06] MEDS: Ferrous Sulfate 300 MG/5 ML LIQUID G-TUBE (09:39)
[2023-06-06] MEDS: Sucralfate 1 GM TABLET PO ×2 (09:39→19:46)
[2023-06-06] MEDS: Omeprazole/Na Bicarb Oral Susp 20 MG/10 ML UD Cup G-TUBE (09:39)
[2023-06-06] MEDS: Sulfamethox/Trimeth 800/160 TABLET 1 TAB G-TUBE (09:39)
[2023-06-06] MEDS: Ascorbic Acid 250 MG TABLET G-TUBE (09:39)
[2023-06-06] MEDS: Midodrine HCl 2.5 MG TABLET 7.5 MG G-TUBE ×3 (09:39→19:47)
[2023-06-06] MEDS: Morphine Sulfate Oral Sol 10 MG/5 ML SOLUTION G-TUBE (09:39)
[2023-06-06] MEDS: Baclofen 10 MG TABLET 5 MG G-TUBE ×3 (09:39→19:45)
[2023-06-06] MEDS: Multivitamin TABLET 1 TAB PO (09:39)
[2023-06-06] MEDS: Lacosamide 100 MG TABLET 200 MG G-TUBE ×2 (09:39→19:45)
[2023-06-06] MEDS: Zinc Sulfate 220 MG CAPSULE G-TUBE (09:39)
[2023-06-06] MEDS: Artificial Tears 15 ML DROPS 2 DROP EYE-BOTH ×2 (09:40→20:02)
[2023-06-06] MEDS: oxyCODONE HCl Immed Release 5 MG TABLET G-TUBE ×2 (12:21→17:25)
[2023-06-06] MEDS: Enoxaparin Sodium 40 MG/0.4 ML SYRINGE SUBCUT (12:22)
[2023-06-06 15:51] VITALS: BP 105/60; PULSE 91; RESP 14; TEMP 37.5; O2SAT 97
--- NOTE | 2023-06-06 16:13 | HO.SKINPHOTO ---
Location: Right Hip and Right Ischium Category: Stage: Length: Width: Depth: cm Location: Right Hip Greater Trochanter Category: Stage: Length: Width: Depth: cm Location: Left Hip Greater Trochanter Category: Stage: Length: Width: Depth: cm Location:Left Ischium Category: Stage: Length: Width: Depth: cm Location: Right Lateral Malleolous Category: Stage: Length: Width: Depth: cm Location:Left Heel Category: Stage: Length: Width: Depth: cm
--- NOTE | 2023-06-06 16:21 | HO.WOUND ---
Wound Consult: Initial 52yr old male admitted to [facility] on ?06/04/23 12:59- See progress notes and H&P for detailed history. Right Ischium Etiology: Deep Tissue Pressure Injury POA Measurements: see assessment for detailed measurements Wound Bed: red puple intact nonblanchable tissue irregular edges Drainage / Odor: None Karen wound: Intact hyperpigmentation notedmild erythema noted No Induration, No Fluctuance Goals of Treatment:? Off Load pressure protect from friction with foam Left Ischium Etiology: Stage 4 Pressure injury POA Measurements: see assessment for detailed measurements Wound Bed: moist tissue observed rough areas of bone palpated pale pink with scattered areas of adherent yellow slough Drainage / Odor: Moderate amount of yellow drainage -Mild odor noted Karen wound: Intact hyperpigmentation noted with macerated edges scar tissue noted No Induration, No Fluctuance, No Erythema, No Warmth Goals of Treatment: ? Pack with alginate for moisture management Right Trochanter Etiology: Stage 4 Pressure injury POA Measurements: see assessment for detailed measurements Wound Bed: red moist tissue observed rough areas of bone palpated Drainage / Odor: small amount of yellow drainage Karen wound: Intact hyperpigmentation noted with macerated edges scar tissue noted No Induration, No Fluctuance, No Erythema, No Warmth Goals of Treatment: ? Pack with alginate for moisture management Left Trochanter Etiology: Unstageable Pressure injury POA Measurements: see assessment for detailed measurements Wound Bed: red moist tissue observed not able to observe full wound bed Drainage / Odor: small amount of yellow drainage Karen wound: ? Intact hyperpigmentation noted with macerated edges scar tissue noted No Induration, No Fluctuance, No Erythema, No Warmth Goals of Treatment: ? Pack with alginate for moisture management Left Heel Etiology: Resolving Stage 2 pressure injury POA Measurements: see assessment for detailed measurements Wound Bed: dry epidermal layer with pink newly epithelialized tissue Drainage / Odor: None Edges: ?Attached irregular Karen wound: ? Intact hyperpigmentation noted No Induration, No Fluctuance, No Erythema, No Warmth Goals of Treatment: ? Off Load pressure protect from friction with foam Right Lateral Malleolous Etiology: Resurfaced full thickness pressure injury POA Measurements: 1cm x 1cm x 0cm Wound Bed: dry epidermal layer with scar tissue and hypopigmentation noted Drainage / Odor: None Karen wound: ? Intact hyperpigmentation noted No Induration, No Fluctuance, No Erythema, No Warmth Goals of Treatment: ? Off Load pressure protect from friction with foam Recommendations: 1. Turn and Reposition every 2 hours and as needed for patient comfort consider use of wedges available in the storeroom. 2. Off Load all bony prominences with use of pillows, wedges and heel boots. 3. Monitor for incontinence and moisture control. 4. Provide adequate and supplemental nutrition. 5. Order or Continue low air loss mattress. 6. Maintain blood glucose levels per Providers orders. 7. Left Ischium, Right Lateral Ankle and Left Heel- Cleanse with ph balance soap and or NS, pat dry. Apply skin barrier wipe, allow to dry. Cover with foam dressing. Peel back and assess Q shirt and change dressing every 3 days and PRN. 8. Right Ischium, Bilateral Hip (Greater Trochanter) - Cleanse with normal saline and pat dry. ?Apply Triad to karen-wound, lightly wound beds with Durafiber AG cover with dry gauze and foam dressing. ?Change Daily or as needed for soiling. Re-consult wound care Nurse for wound deterioration or wound changes.
--- NOTE | 2023-06-06 17:16 | HO.PM.IMPN ---
Subjective Subjective Date of Service: 06/06/23 Interval History: Unable to obtain history since patient nonverbal, patient noted to have copious secretions from tracheostomy, required frequent suctioning, noted to have low-grade fever 100.2 this morning. Review of Systems Unable to obtain patient nonverbal. Physical Exam Vital Signs: Vital Signs: Last Vital Signs Temp 99.5 F 06/06/23 15:51 Pulse 91 06/06/23 15:51 Resp 14 06/06/23 15:51 BP 105/60 06/06/23 15:51 Pulse Ox 97 06/06/23 15:51 O2 Del Method Trach Collar 06/06/23 15:51 O2 Flow Rate 6.0 06/06/23 15:51 Oxygen Flow Rate 3 06/04/23 12:33 BMI result Body Mass Index 21.2 Const: Other: Constitutional : n o acute distress N ildefonso : Trach in pl [place] with no secret ions Cardiovascula r : RRR, no JVD, n o lower extremity edema Respiratory : Good bilateral air entry, no whee ze, no crackles Ga strointestinal:? s oft, Normal bowel sounds, G-tube in place Skin : Mult iple stage 3-4 pre ssure ulcers on bi lateral hips and l eft buttock Neurol ogical : unable to assess orientatio n. Objective Data Active Medications Acetaminophen (Acetaminophen 325 Mg Tablet) 650 mg G-TUBE Q4H PRN PRN Reason: Fever Or Pain Albuterol Sulfate (Albuterol Sulfate (0.083%) 2.5 Mg/3 Ml Vial.Neb) 2.5 mg INHALE Q4H PRN PRN Reason: Shortness Of Breath Or Wheezing Artificial Tears (Artificial Tears 15 Ml Drops) 2 drop EYE-BOTH BID [facility] Last Admin: 06/06/23 09:40 Dose: 2 drop Documented By: JULIO Ascorbic Acid (Ascorbic Acid 250 Mg Tablet) 250 mg G-TUBE DAILY [facility] Last Admin: 06/06/23 09:39 Dose: 250 mg Documented By: JULIO Atovaquone (Atovaquone 750 Mg/5 Ml Oral.Susp) 750 mg G-TUBE BIDWM [facility] Last Admin: 06/06/23 09:38 Dose: 750 mg Documented By: JULIO Baclofen (Baclofen 10 Mg Tablet) 5 mg G-TUBE TID [facility] Last Admin: 06/06/23 14:05 Dose: 5 mg Documented By: MARIO ALBERTO Bisacodyl (Bisacodyl 10 Mg Supp.Rect) 10 mg [place] DAILY PRN PRN Reason: Constipation Chlorhexidine Gluconate (Chlorhexidine Gluc Oral Rinse 15 Ml Mouthwash) 15 ml BUCCAL BID [facility] Last Admin: 06/06/23 09:41 Dose: Not Given Documented By: JULIO Non-Admin Reason: Med Not Available Enoxaparin Sodium (Enoxaparin Sodium 40 Mg/0.4 Ml Syringe) 40 mg SUBCUT Q24H [facility] Last Admin: 06/06/23 12:22 Dose: 40 mg Documented By: MARIO ALBERTO Ferrous Sulfate (Ferrous Sulfate 300 Mg/5 Ml Liquid) 300 mg G-TUBE DAILY [facility] Last Admin: 06/06/23 09:39 Dose: 300 mg Documented By: JULIO Finasteride (Finasteride 5 Mg Tablet) 5 mg PO DAILY [facility] Last Admin: 06/06/23 09:40 Dose: Not Given Documented By: JULIO Non-Admin Reason: can't be crushed Glycopyrrolate (Glycopyrrolate 1 Mg Tablet) 1 mg G-TUBE TID [facility] Last Admin: 06/06/23 14:06 Dose: 1 mg Documented By: MARIO ALBERTO Guaifenesin (Guaifenesin 100 Mg/5 Ml Liquid) 10 ml G-TUBE Q4H PRN PRN Reason: Cough Meropenem 1 gm/ Sodium (Chloride) 100 mls @ 200 mls/hr IV Q8H [facility] Last Infusion: 06/06/23 12:59 Dose: Infused Documented By: MARIO ALBERTO Lacosamide (Lacosamide 100 Mg Tablet) 200 mg G-TUBE BID [facility] Last Admin: 06/06/23 09:39 Dose: 200 mg Documented By: JULIO Leucovorin Calcium (Leucovorin Calcium 5 Mg Tablet) 25 mg G-TUBE BEDTIME [facility] Last Admin: 06/05/23 22:16 Dose: 25 mg Documented By: TIFFANIE Loperamide HCl (Loperamide Hcl 2 Mg Capsule) 2 mg G-TUBE Q4H PRN PRN Reason: Diarrhea Lorazepam (Lorazepam 0.5 Mg Tablet) 0.5 mg G-TUBE Q6H PRN PRN Reason: Anxiety Magnesium Hydroxide (Milk Of Magnesia 30 Ml Oral.Susp) 30 ml G-TUBE DAILY PRN PRN Reason: Constipation Melatonin (Melatonin 3 Mg Tablet) 3 mg G-TUBE BEDTIME [facility] Last Admin: 06/05/23 20:46 Dose: 3 mg Documented By: TIFFANIE Midodrine (Midodrine Hcl 2.5 Mg Tablet) 7.5 mg G-TUBE TID [facility] Last Admin: 06/06/23 14:06 Dose: 7.5 mg Documented By: MARIO ALBERTO Morphine Sulfate (Morphine Sulfate Oral Cady 10 Mg/5 Ml Solution) 5 mg G-TUBE DAILY PRN PRN Reason: Pain, Severe (Pain Scale 7-10) Morphine Sulfate (Morphine Sulfate Oral Cady 10 Mg/5 Ml Solution) 10 mg G-TUBE DAILY [facility] Last Admin: 06/06/23 09:39 Dose: 10 mg Documented By: JULIO Multivitamins/Vitamin C (Multivitamin Tablet) 1 tab PO DAILY [facility] Last Admin: 06/06/23 09:39 Dose: 1 tab Documented By: JULIO Omeprazole (Omeprazole/Na Bicarb Oral Susp 20 Mg/10 Ml Ud Cup) 20 mg G-TUBE DAILY@0630 [facility] Last Admin: 06/06/23 09:39 Dose: 20 mg Documented By: JULIO Ondansetron HCl (Ondansetron Hcl 4 Mg/2 Ml Vial) 4 mg IVPUSH Q8H PRN PRN Reason: Nausea and Vomiting Oxycodone HCl (Oxycodone Hcl Immed Release 5 Mg Tablet) 5 mg G-TUBE Q4H PRN PRN Reason: Moderate Pain (Scale Score 5-6) Last Admin: 06/06/23 12:21 Dose: 5 mg Documented By: MARIO ALBERTO Scopolamine (Scopolamine 1.5 Mg Patch.Td.3) 1.5 mg TRANSDERMA Q3D [facility] Last Admin: 06/04/23 13:30 Dose: 1.5 mg Documented By: JAMIL Senna/Docusate Sodium (Sennosides/Docusate Sodium Tablet) 1 tab PO BID PRN PRN Reason: Constipation Sodium Biphosphate/Sodium Phosphate (Sodium Phosphate,[place]-Dibasic 133 Ml Enema) 118 ml [place] DAILY PRN PRN Reason: Constipation Sodium Chloride (0.9 % Sodium Chloride Flush 3 Ml Syringe) 3 ml IVFLUSH QSHIFT [facility] Last Admin: 06/06/23 14:50 Dose: Not Given Documented By: MARIO ALBERTO Non-Admin Reason: just flushed Sucralfate (Sucralfate 1 Gm Tablet) 1 gm PO BID [facility] Last Admin: 06/06/23 09:39 Dose: 1 gm Documented By: JULIO Tramadol HCl (Tramadol Hcl 50 Mg Tablet) 50 mg G-TUBE Q4H PRN PRN Reason: Pain, Moderate(Pain Scale 4-6) Triamcinolone Acetonide (Triamcinolone Acet 0.5 % Oint 15 Gm Tube) 1 appl TOPICAL DAILY [facility] Last Admin: 06/06/23 09:41 Dose: Not Given Documented By: JULIO Non-Admin Reason: Med Not Available Trimethoprim/Sulfamethoxazole (Sulfamethox/Trimeth 800/160 Tablet) 1 tab G-TUBE DAILY [facility] Last Admin: 06/06/23 09:39 Dose: 1 tab Documented By: JULIO Zinc Sulfate (Zinc Sulfate 220 Mg Capsule) 220 mg G-TUBE DAILY [facility] Last Admin: 06/06/23 09:39 Dose: 220 mg Documented By: JULIO Labs 06/05/23 06:25 06/05/23 06:25 Microbiology Microbiology Results: Microbiology 06/04/23 11:27 Blood Culture - Preliminary Blood - Venous No growth after 48 hours. 06/04/23 11:27 Blood Culture - Preliminary Blood - Venous No growth after 48 hours. Assessment and Plan (1) Bacteremia: Status: Acute (2) Mantle cell lymphoma: Status: Acute Plan 52-year-old male with a PMH significant for?stage IV mantle cell lymphoma, [employer] toxoplasmosis, chronic respiratory failure, BPH with urinary retention and chronic catheter in place, seizure disorder, chronic trach collar and G-tube in place who presents to the ED from [facility] for evaluation of bacteremia with hypotension and possible sepsis. Pt will be admitted to the hospital for treatment and further evaluation of bacteremia with 1/2 blood cultures growing Gram-negative rods. E coli Bacteremia ESBL positive No acute events overnight, no fevers, WBC normalized 1/2 blood cultures 06/03 positive for e.coli esbl + and urine culture from grew E coli esbl +, repeat blood cultures 06/04 negative times 48 hours Patient with history of ESBL Klebsiella, Pseudomonas recieved iv ceftriaxone and cefepime at [facility], given ertapenem in the ED cont. iv meropenem,dc iv cefepime, started 06/04/2023 Hypotension sent to the ED from [facility] d/t hypotension, BP 91/58 at time of presentation, has chronically soft blood pressure now sbp > 100 s/p IVF in the ED Hold doxazosin for now Continue midodrine, Monitor BP Chronic tracheostomy noted to have significant secretions today required suctioning, consulted pulmonology they recommended sputum culture sensitivity, trach care repeat chest x-ray and recommend to continue current antibiotic, likely aspiration from G-tube feeds keep head of the bed elevated Will order continuous oxygen monitoring. 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, bed bound Continue atovaquone, leucovirin, bactrim in place of Pyrimethamine BPH/urinary retention chronic Rubio in place, Continue finasteride Seizure disorder Continue lacosamide GERD Continue famotidine Deep tissue pressure injury present on admission, right ischium/left ischium Right trochanter stage IV pressure injury present on admission Left trochanter unstageable pressure injury present on admission Left heel resolving stage II pressure injury present on admission Right lateral malleolus full-thickness pressure injury Seen by wound nurse will follow dressing change as recommended Full Code DVT Prophylaxis: Lovenox Pt will require continued inpatient hospitalization for treatment of?bacteremia in the setting of UTI on IV antibiotics, and follow-up on copious tracheostomy drainage and wound care . Case Time Spent With Patient Time: Total time managing care of this patient today ____ minutes. Quality Stroke Does the patient have a stroke diagnosis?: No VTE Prior VTE?: No VTE Risk Level:: Medical - moderate - high VTE Device Contraindication: Treatment Not Indicated VTE Drug Contraindication: N/A - Med Ordered
[2023-06-06] MEDS: Melatonin 3 MG TABLET G-TUBE (19:46)
[2023-06-06 20:00] VITALS: BP 102/63; PULSE 87; RESP 18; TEMP 37.4; O2SAT 93
[2023-06-06] MEDS: Chlorhexidine Gluc Oral Rinse 15 ML MOUTHWASH BUCCAL (20:20)
[2023-06-07] MEDS: oxyCODONE HCl Immed Release 5 MG TABLET G-TUBE ×2 (01:10→21:42)
[2023-06-07] MEDS: guaiFENesin 100 MG/5 ML LIQUID 10 ML G-TUBE (01:11)
[2023-06-07 03:16] VITALS: BP 101/66; PULSE 79; RESP 16; TEMP 36.2; O2SAT 99
[2023-06-07] MEDS: Omeprazole/Na Bicarb Oral Susp 20 MG/10 ML UD Cup G-TUBE (05:31)
[2023-06-07 07:40] VITALS: BP 99/58; PULSE 86; RESP 16; TEMP 36.2; O2SAT 92
[2023-06-07 08:33] VITALS: PULSE 84; RESP 21; O2SAT 96
--- NOTE | 2023-06-07 08:56 | P.PNPL_ITS ---
Subjective Subjective Date of Service: 06/07/23 Interval history: The patient was seen on exam. His secretions are decreased. He is getting trach care regularly by respiratory therapy. His secretions are thick but not purulent. The viscosity of the sputum could be related to the amount of anticholinergic studies on with both scopolamine patches and Robinul. His sputum culture was sent and still pending. Chest x-ray personally by me does demonstrate a left infrahilar opacities suggesting airspace disease pneumonia likely from aspiration. White counts normal the patient is not febrile so I will continue the current antibiotics. If the sputum culture is positive for a pathogen then we can tailor the antibiotics at that point. If the patient decompensates we can also consider broadening his antibiotics. Objective Data Labs 06/05/23 06:25 06/05/23 06:25 Microbiology Microbiology Results: Microbiology 06/04/23 11:27 Blood - Venous Blood Culture - Preliminary No growth after 48 hours. 06/04/23 11:27 Blood - Venous Blood Culture - Preliminary No growth after 48 hours. Review of Systems Review of Systems Yes Unobtainable due to mental status Physical Exam 2 Vital Signs: Vital Signs: Last Vital Signs Temp 97.2 F 06/07/23 07:40 Pulse 86 06/07/23 07:40 Resp 16 06/07/23 07:40 BP 99/58 L 06/07/23 07:40 Pulse Ox 92 06/07/23 07:40 O2 Del Method Trach Collar 06/07/23 07:40 O2 Flow Rate 5.0 06/06/23 20:00 Oxygen Flow Rate 3 06/04/23 12:33 BMI result Body Mass Index 21.2 Const: General: patient obtunded Orientation/consciousness: patient obtunded HEENT: Head: Yes atraumatic Neck: Neck: Yes tracheostomy present Chest: Chest palpation & inspection: normal inspection of the chest Resp: Effort & Inspection: normal respiratory effort Auscultation: d iminished lung sounds Cardio: Heart sounds: S1 normal heart sound present and S2 normal heart sound present GI: Inspection: Yes G-tube present Palpation (GI): Soft to palpation Skin: General skin exam: no rashes or lesions noted Neuro: General: patient obtunded Extrem: General: No cyanosis Procedures Date of Service Date of Service: 06/07/23 Assessment and Plan Assessment and plan (1) Aspiration pneumonia: Status: Acute (2) Tracheostomy dependent: Status: Acute Plan Trach care HOB elevated continue current abx regimen. Awaiting sputum culture Time Spent With Patient Time: Total time managing care of this patient today ____ minutes. Progress Note: Quality Stroke Does the patient have a stroke diagnosis?: No
[2023-06-07] MEDS: Atovaquone 750 MG/5 ML ORAL.SUSP G-TUBE ×2 (09:20→16:05)
[2023-06-07] MEDS: Sulfamethox/Trimeth 800/160 TABLET 1 TAB G-TUBE (09:20)
[2023-06-07] MEDS: Midodrine HCl 2.5 MG TABLET 7.5 MG G-TUBE ×3 (09:20→20:56)
[2023-06-07] MEDS: Morphine Sulfate Oral Sol 10 MG/5 ML SOLUTION G-TUBE (09:20)
[2023-06-07] MEDS: Zinc Sulfate 220 MG CAPSULE G-TUBE (09:20)
[2023-06-07] MEDS: Ferrous Sulfate 300 MG/5 ML LIQUID G-TUBE (09:20)
[2023-06-07] MEDS: Baclofen 10 MG TABLET 5 MG G-TUBE ×3 (09:21→20:57)
[2023-06-07] MEDS: Lacosamide 100 MG TABLET 200 MG G-TUBE ×2 (09:21→20:56)
[2023-06-07] MEDS: Multivitamin TABLET 1 TAB PO (09:22)
[2023-06-07] MEDS: Ascorbic Acid 250 MG TABLET G-TUBE (09:22)
[2023-06-07] MEDS: Glycopyrrolate 1 MG TABLET G-TUBE ×3 (09:22→20:56)
[2023-06-07] MEDS: Sucralfate 1 GM TABLET PO ×2 (09:22→20:56)
[2023-06-07] MEDS: Chlorhexidine Gluc Oral Rinse 15 ML MOUTHWASH BUCCAL ×2 (09:36→22:03)
[2023-06-07] MEDS: Artificial Tears 15 ML DROPS 2 DROP EYE-BOTH ×2 (10:02→21:01)
[2023-06-07] MEDS: 0.9 % Sodium Chloride Flush 3 ML SYRINGE IVFLUSH ×3 (10:02→20:58)
--- NOTE | 2023-06-07 11:46 | HO.PM.IMPN ---
Subjective Subjective Date of Service: 06/07/23 Interval History: Unable to obtain history patient nonverbal, clinically appears improved since yesterday, continued to have persistent clear white secretions from tracheostomy. Review of Systems Unable to obtain patient nonverbal. Physical Exam Vital Signs: Vital Signs: Last Vital Signs Temp 97.2 F 06/07/23 07:40 Pulse 86 06/07/23 07:40 Resp 16 06/07/23 07:40 BP 99/58 L 06/07/23 07:40 Pulse Ox 92 06/07/23 07:40 O2 Del Method Trach Collar 06/07/23 07:40 O2 Flow Rate 5.0 06/06/23 20:00 Oxygen Flow Rate 3 06/04/23 12:33 BMI result Body Mass Index 21.2 Const: Other: Constitutional : Less lethargic, no acute distress Neck : Trach in place Cardiovascular : RRR, no JVD, no lower extremity edema Respiratory : Good bilateral air entry, no wheeze, no crackles Gastrointestinal:? soft, Normal bowel sounds, G-tube in place Skin : Multiple stage 3-4 pressure ulcers on bilateral hips and left buttock Neurological : unable to assess orientation. Objective Data Active Medications Acetaminophen (Acetaminophen 325 Mg Tablet) 650 mg G-TUBE Q4H PRN PRN Reason: Fever Or Pain Albuterol Sulfate (Albuterol Sulfate (0.083%) 2.5 Mg/3 Ml Vial.Neb) 2.5 mg INHALE Q4H PRN PRN Reason: Shortness Of Breath Or Wheezing Artificial Tears (Artificial Tears 15 Ml Drops) 2 drop EYE-BOTH BID [facility] Last Admin: 06/07/23 10:02 Dose: 2 drop Documented By: JULIO Ascorbic Acid (Ascorbic Acid 250 Mg Tablet) 250 mg G-TUBE DAILY [facility] Last Admin: 06/07/23 09:22 Dose: 250 mg Documented By: JULIO Atovaquone (Atovaquone 750 Mg/5 Ml Oral.Susp) 750 mg G-TUBE BIDWM [facility] Last Admin: 06/07/23 09:20 Dose: 750 mg Documented By: JULIO Baclofen (Baclofen 10 Mg Tablet) 5 mg G-TUBE TID [facility] Last Admin: 06/07/23 09:21 Dose: 5 mg Documented By: JULIO Bisacodyl (Bisacodyl 10 Mg Supp.Rect) 10 mg [place] DAILY PRN PRN Reason: Constipation Chlorhexidine Gluconate (Chlorhexidine Gluc Oral Rinse 15 Ml Mouthwash) 15 ml BUCCAL BID [facility] Last Admin: 06/07/23 09:36 Dose: 15 ml Documented By: JULIO Enoxaparin Sodium (Enoxaparin Sodium 40 Mg/0.4 Ml Syringe) 40 mg SUBCUT Q24H [facility] Last Admin: 06/06/23 12:22 Dose: 40 mg Documented By: MARIO ALBERTO Ferrous Sulfate (Ferrous Sulfate 300 Mg/5 Ml Liquid) 300 mg G-TUBE DAILY [facility] Last Admin: 06/07/23 09:20 Dose: 300 mg Documented By: JULIO Glycopyrrolate (Glycopyrrolate 1 Mg Tablet) 1 mg G-TUBE TID [facility] Last Admin: 06/07/23 09:22 Dose: 1 mg Documented By: JULIO Guaifenesin (Guaifenesin 100 Mg/5 Ml Liquid) 10 ml G-TUBE Q4H PRN PRN Reason: Cough Last Admin: 06/07/23 01:11 Dose: 10 ml Documented By: YELITZA Meropenem 1 gm/ Sodium (Chloride) 100 mls @ 200 mls/hr IV Q8H [facility] Last Infusion: 06/07/23 06:13 Dose: Infused Documented By: YELITZA Lacosamide (Lacosamide 100 Mg Tablet) 200 mg G-TUBE BID [facility] Last Admin: 06/07/23 09:21 Dose: 200 mg Documented By: JULIO Leucovorin Calcium (Leucovorin Calcium 5 Mg Tablet) 25 mg G-TUBE BEDTIME [facility] Last Admin: 06/06/23 19:46 Dose: 25 mg Documented By: YELITZA Loperamide HCl (Loperamide Hcl 2 Mg Capsule) 2 mg G-TUBE Q4H PRN PRN Reason: Diarrhea Lorazepam (Lorazepam 0.5 Mg Tablet) 0.5 mg G-TUBE Q6H PRN PRN Reason: Anxiety Magnesium Hydroxide (Milk Of Magnesia 30 Ml Oral.Susp) 30 ml G-TUBE DAILY PRN PRN Reason: Constipation Melatonin (Melatonin 3 Mg Tablet) 3 mg G-TUBE BEDTIME [facility] Last Admin: 06/06/23 19:46 Dose: 3 mg Documented By: YELITZA Midodrine (Midodrine Hcl 2.5 Mg Tablet) 7.5 mg G-TUBE TID [facility] Last Admin: 06/07/23 09:20 Dose: 7.5 mg Documented By: JULIO Morphine Sulfate (Morphine Sulfate Oral Cady 10 Mg/5 Ml Solution) 5 mg G-TUBE DAILY PRN PRN Reason: Pain, Severe (Pain Scale 7-10) Morphine Sulfate (Morphine Sulfate Oral Cady 10 Mg/5 Ml Solution) 10 mg G-TUBE DAILY [facility] Last Admin: 06/07/23 09:20 Dose: 10 mg Documented By: JULIO Multivitamins/Vitamin C (Multivitamin Tablet) 1 tab PO DAILY [facility] Last Admin: 06/07/23 09:22 Dose: 1 tab Documented By: JULIO Omeprazole (Omeprazole/Na Bicarb Oral Susp 20 Mg/10 Ml Ud Cup) 20 mg G-TUBE DAILY@0630 [facility] Last Admin: 06/07/23 05:31 Dose: 20 mg Documented By: YELITZA Ondansetron HCl (Ondansetron Hcl 4 Mg/2 Ml Vial) 4 mg IVPUSH Q8H PRN PRN Reason: Nausea and Vomiting Oxycodone HCl (Oxycodone Hcl Immed Release 5 Mg Tablet) 5 mg G-TUBE Q4H PRN PRN Reason: Moderate Pain (Scale Score 5-6) Last Admin: 06/07/23 01:10 Dose: 5 mg Documented By: YELITZA Scopolamine (Scopolamine 1.5 Mg Patch.Td.3) 1.5 mg TRANSDERMA Q3D [facility] Last Admin: 06/04/23 13:30 Dose: 1.5 mg Documented By: JAMIL Senna/Docusate Sodium (Sennosides/Docusate Sodium Tablet) 1 tab PO BID PRN PRN Reason: Constipation Sodium Biphosphate/Sodium Phosphate (Sodium Phosphate,[place]-Dibasic 133 Ml Enema) 118 ml [place] DAILY PRN PRN Reason: Constipation Sodium Chloride (0.9 % Sodium Chloride Flush 3 Ml Syringe) 3 ml IVFLUSH QSHIFT [facility] Last Admin: 06/07/23 10:02 Dose: 3 ml Documented By: JULIO Sucralfate (Sucralfate 1 Gm Tablet) 1 gm PO BID [facility] Last Admin: 06/07/23 09:22 Dose: 1 gm Documented By: JULIO Tramadol HCl (Tramadol Hcl 50 Mg Tablet) 50 mg G-TUBE Q4H PRN PRN Reason: Pain, Moderate(Pain Scale 4-6) Triamcinolone Acetonide (Triamcinolone Acet 0.5 % Oint 15 Gm Tube) 1 appl TOPICAL DAILY [facility] Last Admin: 06/07/23 10:02 Dose: Not Given Documented By: JULIO Non-Admin Reason: Med Not Available Trimethoprim/Sulfamethoxazole (Sulfamethox/Trimeth 800/160 Tablet) 1 tab G-TUBE DAILY [facility] Last Admin: 06/07/23 09:20 Dose: 1 tab Documented By: JULIO Zinc Sulfate (Zinc Sulfate 220 Mg Capsule) 220 mg G-TUBE DAILY [facility] Last Admin: 06/07/23 09:20 Dose: 220 mg Documented By: JULIO Labs 06/05/23 06:25 06/05/23 06:25 Microbiology Microbiology Results: Microbiology 06/06/23 21:35 Gram Stain - Final Sputum - Suctioned Sputum Culture - Preliminary No growth to date. 06/04/23 11:27 Blood Culture - Preliminary Blood - Venous No growth after 48 hours. 06/04/23 11:27 Blood Culture - Preliminary Blood - Venous No growth after 48 hours. Assessment and Plan (1) Bacteremia: Status: Acute (2) Mantle cell lymphoma: Status: Acute Plan 52-year-old male with a PMH significant for?stage IV mantle cell lymphoma, [employer] toxoplasmosis, chronic respiratory failure, BPH with urinary retention and chronic catheter in place, seizure disorder, chronic trach collar and G-tube in place who presents to the ED from [facility] for evaluation of bacteremia with hypotension and possible sepsis. Pt will be admitted to the hospital for treatment and further evaluation of bacteremia with 1/2 blood cultures growing Gram-negative rods. E coli Bacteremia ESBL positive No acute events overnight, no fevers, WBC normalized 1/2 blood cultures 06/03 positive for e.coli esbl + and urine culture from grew E coli esbl +, repeat blood cultures 06/04 negative times 48 hours Patient with history of ESBL Klebsiella, Pseudomonas cont. iv meropenem,dc iv cefepime, started 06/04/2023 Hypotension sent to the ED from [facility] d/t hypotension, BP 91/58 at time of presentation, has chronically soft blood pressure, now sbp > 100 s/p IVF in the ED Hold doxazosin for now Continue midodrine, Monitor BP Chronic tracheostomy noted to have significant secretions requiring frequent suctioning Less secretions this morning, no fevers, normal WBC, clinically improved since yesterday. Chest x-ray likely left infrahilar opacity, chest x-ray report pending, sputum cultures so far negative, Continue Robinul and scopolamine patch Continue respiratory care and current antibiotic as above, no residual from G-tube feeds, keep head of the bed elevated continuous oxygen monitoring. Being followed by pulmonology follow recommendations. 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, bed bound Continue atovaquone, leucovirin, bactrim in place of Pyrimethamine BPH/urinary retention chronic Rubio in place, Continue finasteride Seizure disorder Continue lacosamide GERD Continue famotidine Deep tissue pressure injury present on admission, right ischium/left ischium Right trochanter stage IV pressure injury present on admission Left trochanter unstageable pressure injury present on admission Left heel resolving stage II pressure injury present on admission Right lateral malleolus full-thickness pressure injury Seen by wound nurse will follow dressing change as recommended Full Code DVT Prophylaxis: Lovenox Pt will require continued inpatient hospitalization for treatment of?bacteremia in the setting of UTI on IV antibiotics, and follow-up on copious tracheostomy drainage and wound care . Time Spent With Patient Time: Total time managing care of this patient today ____ minutes. Quality Stroke Does the patient have a stroke diagnosis?: No VTE Prior VTE?: No VTE Risk Level:: Medical - moderate - high VTE Device Contraindication: Treatment Not Indicated VTE Drug Contraindication: N/A - Med Ordered
[2023-06-07] MEDS: Scopolamine 1.5 MG PATCH.TD.3 TRANSDERMA (13:08)
[2023-06-07] MEDS: Enoxaparin Sodium 40 MG/0.4 ML SYRINGE SUBCUT (13:08)
[2023-06-07 15:23] VITALS: BP 98/63; PULSE 75; RESP 19; TEMP 36.3; O2SAT 99
[2023-06-07 19:08] VITALS: BP 109/72; PULSE 77; RESP 20; TEMP 36.1; O2SAT 99
[2023-06-07] MEDS: Melatonin 3 MG TABLET G-TUBE (20:58)
[2023-06-08 03:36] VITALS: BP 100/63; PULSE 81; RESP 20; TEMP 36.6; O2SAT 100
[2023-06-08] MEDS: Omeprazole/Na Bicarb Oral Susp 20 MG/10 ML UD Cup G-TUBE (04:53)
[2023-06-08 06:18] LABS: Hemoglobin 9.2 g/dl (14.0-18.0); Mean Corpuscular HGB Conc 30.7 g/dl (31.0-36.0); Mean Corpuscular Volume 81.5 fL (80.0-98.0); Mean Platelet Volume 9.2 fL (9.4-12.4); Platelet Count 239 X10*3/uL (160-400); Red Blood Count 3.68 X10*6/uL (4.60-5.80); Red Cell Distribution Width 15.7 % (11.0-16.0); White Blood Count 5.3 X10*3/uL (4.8-10.8)
[2023-06-08 06:29] LABS: Anion Gap 13 (12-20); Blood Urea Nitrogen 17 mg/dL (9-16); Calcium 8.9 mg/dL (8.4-10.2); Carbon Dioxide 27 mmol/L (22-29); Chloride 103 mmol/L (96-108); Creatinine Clr Calc Pharmacy 94.4; Estimated Glomerular Filt Rate > 60; Glucose Random 103 mg/dL (60-115); Potassium 4.1 mmol/L (3.3-5.1); Sodium 139 mmol/L (135-145)
[2023-06-08 07:30] VITALS: BP 126/83; PULSE 78; RESP 12; O2SAT 99
[2023-06-08 08:25] VITALS: PULSE 92; RESP 20; O2SAT 94
[2023-06-08] MEDS: 0.9 % Sodium Chloride Flush 3 ML SYRINGE IVFLUSH ×2 (09:24→20:01)
[2023-06-08] MEDS: Artificial Tears 15 ML DROPS 2 DROP EYE-BOTH ×2 (09:24→20:01)
[2023-06-08] MEDS: Morphine Sulfate Oral Sol 10 MG/5 ML SOLUTION G-TUBE (09:24)
[2023-06-08] MEDS: Chlorhexidine Gluc Oral Rinse 15 ML MOUTHWASH BUCCAL ×2 (09:24→20:00)
[2023-06-08] MEDS: Sucralfate 1 GM TABLET PO ×2 (09:25→20:00)
[2023-06-08] MEDS: Baclofen 10 MG TABLET 5 MG G-TUBE ×3 (09:25→20:00)
[2023-06-08] MEDS: Glycopyrrolate 1 MG TABLET G-TUBE ×3 (09:25→20:00)
[2023-06-08] MEDS: Lacosamide 100 MG TABLET 200 MG G-TUBE ×2 (09:25→20:00)
[2023-06-08] MEDS: Sulfamethox/Trimeth 800/160 TABLET 1 TAB G-TUBE (09:25)
[2023-06-08] MEDS: Midodrine HCl 2.5 MG TABLET 7.5 MG G-TUBE ×3 (09:25→20:00)
[2023-06-08] MEDS: Ascorbic Acid 250 MG TABLET G-TUBE (09:25)
[2023-06-08] MEDS: Multivitamin TABLET 1 TAB PO (09:25)
[2023-06-08] MEDS: Ferrous Sulfate 300 MG/5 ML LIQUID G-TUBE (09:25)
[2023-06-08] MEDS: Zinc Sulfate 220 MG CAPSULE G-TUBE (09:25)
[2023-06-08] MEDS: Atovaquone 750 MG/5 ML ORAL.SUSP G-TUBE (09:25)
--- NOTE | 2023-06-08 10:34 | MHC.CLN ---
F/U PATIENT NPO AND REQUIRES NUTRITION/HYDRATION VIA PEG. INCREASED NUTRITIONAL NEEDS DUE TO IMPAIRED SKIN INTEGRITY. TOLERATING CURRENT TUBE FEEDING AT MAX GOAL RATE 60 ML PER HOUR. MAX GOAL RATE OSMOLITE 1.5 AT 60 ML PER HOUR CONTINUOUS, FREE WATER FLUSH 240 ML Q 6 HOURS. TUBE FEED AND FLUSH PROVIDE 2160 KCALS (36.2 KCALS/KG); 90 G PROTEIN (1.51 G/KG); FREE WATER FROM FORMULA AND FLUSH 2057 ML (34.5 ML/KG). FOLLOW FOR TUBE FEED TOLERANCE, RESIDUALS, LABS, AND SKIN INTEGRITY.
--- NOTE | 2023-06-08 12:51 | MHC.CM.PN ---
Pt is not ready for DC, still on IV AB, provider wanted to know if [facility] requires a mid line put in for continued IV AB, CM contacted provider at [facility] and they said the mid line is preferred, provider here notified. CM will contact Claire in Admissions at [facility] when pt is ready to return there.
[2023-06-08] MEDS: Enoxaparin Sodium 40 MG/0.4 ML SYRINGE SUBCUT (12:56)
--- NOTE | 2023-06-08 13:43 | P.PNIM_ITS ---
Subjective Subjective Date of Service: 06/08/23 Interval History: Unable to obtain history since patient nonverbal clinically looks better, secretions decreasing, no overnight fevers, hemodynamically stable. Review of Systems Unable to obtain review of system patient is nonverbal. Physical Exam 2 Vital Signs: Vital Signs: Last Vital Signs Temp 97.9 F 06/08/23 03:36 Pulse 78 06/08/23 07:30 Resp 12 06/08/23 07:30 BP 126/83 06/08/23 07:30 Pulse Ox 99 06/08/23 07:30 O2 Del Method Nasal Cannula 06/08/23 07:30 O2 Flow Rate 7 06/08/23 07:30 Oxygen Flow Rate 3 06/04/23 12:33 BMI result Body Mass Index 21.2 Const: Other: Constitutional : Less lethargic, more at baseline, no acute distress Neck : Trach in place Cardiovascular : RRR, no JVD, no lower extremity edema Respiratory : Good bilateral air entry, unable to to follow commands to take deep breaths, few rhonchi at bases when coughing, no wheeze, no crackles Gastrointestinal:? soft, Normal bowel sounds, G-tube in place Skin : Multiple stage 3-4 pressure ulcers on bilateral hips and left buttock, see images in wound notes Neurological : unable to assess orientation. Objective Data Active Medications Acetaminophen (Acetaminophen 325 Mg Tablet) 650 mg G-TUBE Q4H PRN PRN Reason: Fever Or Pain Albuterol Sulfate (Albuterol Sulfate (0.083%) 2.5 Mg/3 Ml Vial.Neb) 2.5 mg INHALE Q4H PRN PRN Reason: Shortness Of Breath Or Wheezing Artificial Tears (Artificial Tears 15 Ml Drops) 2 drop EYE-BOTH BID [facility] Last Admin: 06/08/23 09:24 Dose: 2 drop Documented By: BROLuz Maria Ascorbic Acid (Ascorbic Acid 250 Mg Tablet) 250 mg G-TUBE DAILY [facility] Last Admin: 06/08/23 09:25 Dose: 250 mg Documented By: BROLuz Maria Atovaquone (Atovaquone 750 Mg/5 Ml Oral.Susp) 750 mg G-TUBE BIDWM [facility] Last Admin: 06/08/23 09:25 Dose: 750 mg Documented By: BROB Baclofen (Baclofen 10 Mg Tablet) 5 mg G-TUBE TID [facility] Last Admin: 06/08/23 09:25 Dose: 5 mg Documented By: ABBY Bisacodyl (Bisacodyl 10 Mg Supp.Rect) 10 mg NC DAILY PRN PRN Reason: Constipation Chlorhexidine Gluconate (Chlorhexidine Gluc Oral Rinse 15 Ml Mouthwash) 15 ml BUCCAL BID [facility] Last Admin: 06/08/23 09:24 Dose: 15 ml Documented By: ABBY Enoxaparin Sodium (Enoxaparin Sodium 40 Mg/0.4 Ml Syringe) 40 mg SUBCUT Q24H [facility] Last Admin: 06/08/23 12:56 Dose: 40 mg Documented By: ABBY Ferrous Sulfate (Ferrous Sulfate 300 Mg/5 Ml Liquid) 300 mg G-TUBE DAILY [facility] Last Admin: 06/08/23 09:25 Dose: 300 mg Documented By: ABBY Glycopyrrolate (Glycopyrrolate 1 Mg Tablet) 1 mg G-TUBE TID [facility] Last Admin: 06/08/23 09:25 Dose: 1 mg Documented By: ABBY Guaifenesin (Guaifenesin 100 Mg/5 Ml Liquid) 10 ml G-TUBE Q4H PRN PRN Reason: Cough Last Admin: 06/07/23 01:11 Dose: 10 ml Documented By: YELITZA Meropenem 1 gm/ Sodium (Chloride) 100 mls @ 200 mls/hr IV Q8H [facility] Last Infusion: 06/08/23 13:31 Dose: Infused Documented By: ABBY Lacosamide (Lacosamide 100 Mg Tablet) 200 mg G-TUBE BID [facility] Last Admin: 06/08/23 09:25 Dose: 200 mg Documented By: ABBY Leucovorin Calcium (Leucovorin Calcium 5 Mg Tablet) 25 mg G-TUBE BEDTIME [facility] Last Admin: 06/07/23 20:56 Dose: 25 mg Documented By: YELITZA Loperamide HCl (Loperamide Hcl 2 Mg Capsule) 2 mg G-TUBE Q4H PRN PRN Reason: Diarrhea Lorazepam (Lorazepam 0.5 Mg Tablet) 0.5 mg G-TUBE Q6H PRN PRN Reason: Anxiety Magnesium Hydroxide (Milk Of Magnesia 30 Ml Oral.Susp) 30 ml G-TUBE DAILY PRN PRN Reason: Constipation Melatonin (Melatonin 3 Mg Tablet) 3 mg G-TUBE BEDTIME [facility] Last Admin: 06/07/23 20:58 Dose: 3 mg Documented By: YELITZA Midodrine (Midodrine Hcl 2.5 Mg Tablet) 7.5 mg G-TUBE TID [facility] Last Admin: 06/08/23 09:25 Dose: 7.5 mg Documented By: ABBY Morphine Sulfate (Morphine Sulfate Oral Cady 10 Mg/5 Ml Solution) 5 mg G-TUBE DAILY PRN PRN Reason: Pain, Severe (Pain Scale 7-10) Morphine Sulfate (Morphine Sulfate Oral Cady 10 Mg/5 Ml Solution) 10 mg G-TUBE DAILY [facility] Last Admin: 06/08/23 09:24 Dose: 10 mg Documented By: ABBY Multivitamins/Vitamin C (Multivitamin Tablet) 1 tab PO DAILY [facility] Last Admin: 06/08/23 09:25 Dose: 1 tab Documented By: ABBY Omeprazole (Omeprazole/Na Bicarb Oral Susp 20 Mg/10 Ml Ud Cup) 20 mg G-TUBE DAILY@0630 [facility] Last Admin: 06/08/23 04:53 Dose: 20 mg Documented By: YELITZA Ondansetron HCl (Ondansetron Hcl 4 Mg/2 Ml Vial) 4 mg IVPUSH Q8H PRN PRN Reason: Nausea and Vomiting Oxycodone HCl (Oxycodone Hcl Immed Release 5 Mg Tablet) 5 mg G-TUBE Q4H PRN PRN Reason: Moderate Pain (Scale Score 5-6) Last Admin: 06/07/23 21:42 Dose: 5 mg Documented By: YELITZA Scopolamine (Scopolamine 1.5 Mg Patch.Td.3) 1.5 mg TRANSDERMA Q3D [facility] Last Admin: 06/07/23 13:08 Dose: 1.5 mg Documented By: JULIO Senna/Docusate Sodium (Sennosides/Docusate Sodium Tablet) 1 tab PO BID PRN PRN Reason: Constipation Sodium Biphosphate/Sodium Phosphate (Sodium Phosphate,Dickens-Dibasic 133 Ml Enema) 118 ml NC DAILY PRN PRN Reason: Constipation Sodium Chloride (0.9 % Sodium Chloride Flush 3 Ml Syringe) 3 ml IVFLUSH QSHIFT [facility] Last Admin: 06/08/23 09:24 Dose: 3 ml Documented By: ABBY Sucralfate (Sucralfate 1 Gm Tablet) 1 gm PO BID [facility] Last Admin: 06/08/23 09:25 Dose: 1 gm Documented By: ABBY Tramadol HCl (Tramadol Hcl 50 Mg Tablet) 50 mg G-TUBE Q4H PRN PRN Reason: Pain, Moderate(Pain Scale 4-6) Triamcinolone Acetonide (Triamcinolone Acet 0.5 % Oint 15 Gm Tube) 1 appl TOPICAL DAILY [facility] Last Admin: 06/08/23 10:08 Dose: Not Given Documented By: ABBY Non-Admin Reason: Med Not Available Trimethoprim/Sulfamethoxazole (Sulfamethox/Trimeth 800/160 Tablet) 1 tab G-TUBE DAILY [facility] Last Admin: 06/08/23 09:25 Dose: 1 tab Documented By: ABBY Zinc Sulfate (Zinc Sulfate 220 Mg Capsule) 220 mg G-TUBE DAILY [facility] Last Admin: 06/08/23 09:25 Dose: 220 mg Documented By: ABBY Labs 06/08/23 06:05 06/08/23 06:05 Labs: Laboratory Results - last 24 hr 06/08/23 06:05 MCV 81.5 MCH 25.0 L MCHC 30.7 L RDW 15.7 Plt Count 239 MPV 9.2 L Absolute Nucleated RBC 0.000 Nucleated RBC % (auto) 0.0 Anion Gap 13 Estim Creat Clear Calc 94.4 Estimated GFR > 60 Random Glucose 103 Calcium 8.9 Microbiology Microbiology Results: Microbiology 06/06/23 21:35 Gram Stain - Final Sputum - Suctioned Sputum Culture - Preliminary Culture in progress. Assessment and Plan (1) Bacteremia: Status: Acute (2) Mantle cell lymphoma: Status: Acute Plan 52-year-old male with a PMH significant for?stage IV mantle cell lymphoma, [employer]ORY toxoplasmosis, chronic respiratory failure, BPH with urinary retention and chronic catheter in place, seizure disorder, chronic trach collar and G-tube in place who presents to the ED from [facility] for evaluation of bacteremia with hypotension and possible sepsis. Pt will be admitted to the hospital for treatment and further evaluation of bacteremia with 1/2 blood cultures growing Gram-negative rods. E coli Bacteremia ESBL positive No acute events overnight, no fevers, WBC normalized 1/2 blood cultures 06/03 positive for e.coli esbl + and urine culture from grew E coli esbl +, repeat blood cultures 06/04 negative history of ESBL Klebsiella, Pseudomonas cont. iv meropenem,started 06/04/2023, will place midline Await ID input. Hypotension sent to the ED from [facility] d/t hypotension, BP 91/58 at time of presentation, has chronically soft blood pressure, now sbp > 100 s/p IVF in the ED Will resume doxazosin Continue midodrine, Monitor BP Acute Left lower lobe pneumonia/ Chronic tracheostomy noted to have significant secretions requiring frequent suctioning since 06/06 Less secretions x 48 h, no fevers, normal WBC, clinically improved since yesterday. Chest x-ray showed worsening left lower lobe opacity,sputum cultures so far negative, Continue Robinul and scopolamine patch Continue respiratory care and current antibiotic as above, no residual from G- tube feeds, keep head of the bed elevated continuous oxygen monitoring. Being followed by pulmonology follow recommendations. 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, bed bound Continue atovaquone, leucovirin, bactrim in place of Pyrimethamine BPH/urinary retention chronic Rubio in place, Continue finasteride Seizure disorder Continue lacosamide GERD Continue famotidine Deep tissue pressure injury present on admission, right ischium/left ischium Right trochanter stage IV pressure injury present on admission Left trochanter unstageable pressure injury present on admission Left heel resolving stage II pressure injury present on admission Right lateral malleolus full-thickness pressure injury Seen by wound nurse will follow dressing change as recommended Full Code DVT Prophylaxis: Lovenox Pt will require continued inpatient hospitalization for treatment of?bacteremia in the setting of UTI on IV antibiotics, and follow-up on copious tracheostomy drainage and wound care . Time Spent With Patient Time: Total time managing care of this patient today ____ minutes. Quality Stroke Does the patient have a stroke diagnosis?: No VTE Prior VTE?: No VTE Risk Level:: Medical - moderate - high VTE Device Contraindication: Treatment Not Indicated VTE Drug Contraindication: N/A - Med Ordered
[2023-06-08 16:00] VITALS: BP 117/70; PULSE 85; RESP 18; TEMP 36.8; O2SAT 100
--- NOTE | 2023-06-08 17:08 | HO.MIDLINE ---
Midline Insertion MIDLINE INSERTION Diagnosis: Bacteremia Indication: IV antibiotics Pertinent Labs: reviewed Technique: Using sterile technique including cap and mask, glove and drape, the right arm was prepped and draped in the usual sterile fashion of full barrier technique with CHG. Using ultrasound guidance, right basilic vein access was obtained . 20g x 8cm non PASV PowerGlide ST midline was positioned. The procedure was performed in Rm 272. Ultrasound was used to document vein patency and for needle entry. A formal ultrasound picture was recorded. [employer] has released the line for use and it is currently dressed with a StatLock, Tegaderm, and CHG disc. Verification has been performed for blood return and line patency. Arm Circumference: 26cm Equipment: PowerGlide ST midline Catheter Type: 20G x 8cm Lot #: [id number]
[2023-06-08 19:47] VITALS: BP 105/63; PULSE 78; RESP 20; TEMP 36.4; O2SAT 92
[2023-06-08] MEDS: Melatonin 3 MG TABLET G-TUBE (20:00)
[2023-06-09] MEDS: Heparin Sodium,Porcine Flush 50 UNITS/5 ML SYRINGE IVFLUSH ×4 (01:56→22:38)
[2023-06-09 03:34] VITALS: BP 111/71; PULSE 90; RESP 19; TEMP 36.2; O2SAT 97
[2023-06-09] MEDS: Omeprazole/Na Bicarb Oral Susp 20 MG/10 ML UD Cup G-TUBE (05:38)
[2023-06-09 07:59] VITALS: BP 108/73; PULSE 86; RESP 20; TEMP 36.6; O2SAT 88
[2023-06-09 08:40] VITALS: PULSE 86; RESP 24; O2SAT 88
--- NOTE | 2023-06-09 08:43 | PC.RT ---
pt found with a sat of 82% on 28% Trach Collar. Pt suctioned for copious frothy pale yellow. Fi02 increased to 40% cool aerosol. RN aware. Sats up to 88% now. RN was shown how to suction patient with inline burgos and also inner cannula.
[2023-06-09] MEDS: Chlorhexidine Gluc Oral Rinse 15 ML MOUTHWASH BUCCAL ×2 (09:12→19:40)
[2023-06-09] MEDS: Ferrous Sulfate 300 MG/5 ML LIQUID G-TUBE (09:12)
[2023-06-09] MEDS: 0.9 % Sodium Chloride Flush 3 ML SYRINGE IVFLUSH ×3 (09:12→19:42)
[2023-06-09] MEDS: Atovaquone 750 MG/5 ML ORAL.SUSP G-TUBE ×2 (09:13→16:18)
[2023-06-09] MEDS: Lacosamide 100 MG TABLET 200 MG G-TUBE ×2 (09:13→19:41)
[2023-06-09] MEDS: Sulfamethox/Trimeth 800/160 TABLET 1 TAB G-TUBE (09:13)
[2023-06-09] MEDS: Morphine Sulfate Oral Sol 10 MG/5 ML SOLUTION G-TUBE (09:13)
[2023-06-09] MEDS: Midodrine HCl 2.5 MG TABLET 7.5 MG G-TUBE ×3 (09:13→19:40)
[2023-06-09] MEDS: Glycopyrrolate 1 MG TABLET G-TUBE ×3 (09:14→19:41)
[2023-06-09] MEDS: Multivitamin TABLET 1 TAB PO (09:14)
[2023-06-09] MEDS: Baclofen 10 MG TABLET 5 MG G-TUBE ×3 (09:14→19:41)
[2023-06-09] MEDS: Zinc Sulfate 220 MG CAPSULE G-TUBE (09:14)
[2023-06-09] MEDS: Ascorbic Acid 250 MG TABLET G-TUBE (09:14)
[2023-06-09] MEDS: Artificial Tears 15 ML DROPS 2 DROP EYE-BOTH ×2 (09:58→19:40)
[2023-06-09] MEDS: Sucralfate 1 GM TABLET PO ×2 (10:22→19:41)
--- NOTE | 2023-06-09 12:15 | MHC.CM.PN ---
Addendum entered by Aurora Toledo 06/10/23 11:27: ANIKAES NUMBER IS [phone] Original Note: CM RECEIVED A CALL FROM ANIKA AT [facility] SHE REPORTS SHE WILL BE GONE THIS AFTERNOON AND WAS LOOKING FOR AN UPDATE CM EXPLAINED PTS MIDLINE WAS IN AND ID WAS PENDING SHE PROVIDED A FAX NUMBER FOR CLINICALS: [phone] SHE WILL BE BACK AT 0800 TOMORROW AND IS AWARE PT WILL LIKELY RETURN TOMORROW SHE WILL NEED AN UPDATE IF PT REMAINS OVER THE WEEKEND THEY WILL HAVE TO REMOVE HIS BED HOLD ANIKA'S PHONE NUMBER IS [phone]
[2023-06-09] MEDS: Enoxaparin Sodium 40 MG/0.4 ML SYRINGE SUBCUT (13:09)
--- NOTE | 2023-06-09 15:20 | P.CNID_ITS ---
History of Present Illness Data of Consult Service Date: 06/09/23 Requesting physician: Diane Casas Primary Care Provider: Florencia Delgado NP HPI Reason for consult: ESBL E coli bacteremia,urine infection,gram negative sputum He presents with weakness and lethargy. He has sepsis as well as bacteremia with ESBL E coli. Urine same and sputum culture pending. He received six weeks IV Vancomycin for OM earlier in year. 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 Rectal bleeding H/O: RCT (rotator cuff tear) Depression Appendicitis Chronic pain Kidney stone Mantle cell lymphoma Family History Family History Mother COPD (chronic obstructive pulmonary disease) Sister Colon cancer Family history: reviewed and not pertinent Surgical History Surgical History History of appendectomy Social History Social History Household Members: None Housing: Long Term Housing Other:: [facility] Do you presently have visiting nurse or other home services: No Unable to assess alcohol history related to: Unable to respond Alcohol intake: unknown Patient Tobacco Use Status: Never used Tobacco Smoked in Last 30 Days: No Use of substances other than those prescribed or required for medical reasons: Unable to respond Substance Use Type: Unknown Currently Displaying Signs/Symptoms of Drug Intoxication Withdrawal: No Advance Directives: Yes Advance Directives on File: Yes Advance Directives Date on File: 06/04/23 Recently lost weight without trying: Unsure Nutrition Risks: Receiving home tube feeding or CPN service: No Current occupational status: unemployed Meds Allergies Allergy/AdvReac Type Severity Reaction Status Date / Time cyclobenzaprine [Flexeril] Allergy Unknown Palpitation Verified 09/22/20 15:41 s Active Medications: Current Medications Acetaminophen (Acetaminophen 325 Mg Tablet) 650 mg G-TUBE Q4H PRN PRN Reason: Fever Or Pain Albuterol Sulfate (Albuterol Sulfate (0.083%) 2.5 Mg/3 Ml Vial.Neb) 2.5 mg INHALE Q4H PRN PRN Reason: Shortness Of Breath Or Wheezing Artificial Tears (Artificial Tears 15 Ml Drops) 2 drop EYE-BOTH BID [facility] Last Admin: 06/09/23 09:58 Dose: 2 drop Ascorbic Acid (Ascorbic Acid 250 Mg Tablet) 250 mg G-TUBE DAILY [facility] Last Admin: 06/09/23 09:14 Dose: 250 mg Atovaquone (Atovaquone 750 Mg/5 Ml Oral.Susp) 750 mg G-TUBE BIDWM [facility] Last Admin: 06/09/23 09:13 Dose: 750 mg Baclofen (Baclofen 10 Mg Tablet) 5 mg G-TUBE TID [facility] Last Admin: 06/09/23 09:14 Dose: 5 mg Bisacodyl (Bisacodyl 10 Mg Supp.Rect) 10 mg [place] DAILY PRN PRN Reason: Constipation Chlorhexidine Gluconate (Chlorhexidine Gluc Oral Rinse 15 Ml Mouthwash) 15 ml BUCCAL BID [facility] Last Admin: 06/09/23 09:12 Dose: 15 ml Enoxaparin Sodium (Enoxaparin Sodium 40 Mg/0.4 Ml Syringe) 40 mg SUBCUT Q24H [facility] Last Admin: 06/09/23 13:09 Dose: 40 mg Ferrous Sulfate (Ferrous Sulfate 300 Mg/5 Ml Liquid) 300 mg G-TUBE DAILY [facility] Last Admin: 06/09/23 09:12 Dose: 300 mg Glycopyrrolate (Glycopyrrolate 1 Mg Tablet) 1 mg G-TUBE TID [facility] Last Admin: 06/09/23 09:14 Dose: 1 mg Guaifenesin (Guaifenesin 100 Mg/5 Ml Liquid) 10 ml G-TUBE Q4H PRN PRN Reason: Cough Last Admin: 06/07/23 01:11 Dose: 10 ml Heparin Sodium (Porcine) (Heparin Sodium,Porcine Flush 50 Units/5 Ml Syringe) 50 units IVFLUSH QSHIFT [facility] Last Admin: 06/09/23 09:18 Dose: 50 units Meropenem 1 gm/ Sodium (Chloride) 100 mls @ 200 mls/hr IV Q8H [facility] Last Infusion: 06/09/23 14:00 Dose: Infused Lacosamide (Lacosamide 100 Mg Tablet) 200 mg G-TUBE BID [facility] Last Admin: 06/09/23 09:13 Dose: 200 mg Leucovorin Calcium (Leucovorin Calcium 5 Mg Tablet) 25 mg G-TUBE BEDTIME [facility] Last Admin: 06/08/23 20:00 Dose: 25 mg Loperamide HCl (Loperamide Hcl 2 Mg Capsule) 2 mg G-TUBE Q4H PRN PRN Reason: Diarrhea Lorazepam (Lorazepam 0.5 Mg Tablet) 0.5 mg G-TUBE Q6H PRN PRN Reason: Anxiety Magnesium Hydroxide (Milk Of Magnesia 30 Ml Oral.Susp) 30 ml G-TUBE DAILY PRN PRN Reason: Constipation Melatonin (Melatonin 3 Mg Tablet) 3 mg G-TUBE BEDTIME [facility] Last Admin: 06/08/23 20:00 Dose: 3 mg Midodrine (Midodrine Hcl 2.5 Mg Tablet) 7.5 mg G-TUBE TID [facility] Last Admin: 06/09/23 09:13 Dose: 7.5 mg Morphine Sulfate (Morphine Sulfate Oral Cady 10 Mg/5 Ml Solution) 5 mg G-TUBE DAILY PRN PRN Reason: Pain, Severe (Pain Scale 7-10) Morphine Sulfate (Morphine Sulfate Oral Cady 10 Mg/5 Ml Solution) 10 mg G-TUBE DAILY [facility] Last Admin: 06/09/23 09:13 Dose: 10 mg Multivitamins/Vitamin C (Multivitamin Tablet) 1 tab PO DAILY [facility] Last Admin: 06/09/23 09:14 Dose: 1 tab Omeprazole (Omeprazole/Na Bicarb Oral Susp 20 Mg/10 Ml Ud Cup) 20 mg G-TUBE DAILY@0630 [facility] Last Admin: 06/09/23 05:38 Dose: 20 mg Ondansetron HCl (Ondansetron Hcl 4 Mg/2 Ml Vial) 4 mg IVPUSH Q8H PRN PRN Reason: Nausea and Vomiting Oxycodone HCl (Oxycodone Hcl Immed Release 5 Mg Tablet) 5 mg G-TUBE Q4H PRN PRN Reason: Moderate Pain (Scale Score 5-6) Last Admin: 06/07/23 21:42 Dose: 5 mg Scopolamine (Scopolamine 1.5 Mg Patch.Td.3) 1.5 mg TRANSDERMA Q3D [facility] Last Admin: 06/07/23 13:08 Dose: 1.5 mg Senna/Docusate Sodium (Sennosides/Docusate Sodium Tablet) 1 tab PO BID PRN PRN Reason: Constipation Sodium Biphosphate/Sodium Phosphate (Sodium Phosphate,[place]-Dibasic 133 Ml Enema) 118 ml [place] DAILY PRN PRN Reason: Constipation Sodium Chloride (0.9 % Sodium Chloride Flush 3 Ml Syringe) 3 ml IVFLUSH QSHIFT [facility] Last Admin: 06/09/23 09:12 Dose: 3 ml Sucralfate (Sucralfate 1 Gm Tablet) 1 gm PO BID [facility] Last Admin: 06/09/23 10:22 Dose: 1 gm Tramadol HCl (Tramadol Hcl 50 Mg Tablet) 50 mg G-TUBE Q4H PRN PRN Reason: Pain, Moderate(Pain Scale 4-6) Triamcinolone Acetonide (Triamcinolone Acet 0.5 % Oint 15 Gm Tube) 1 appl TOPICAL DAILY [facility] Last Admin: 06/09/23 10:23 Dose: Not Given Trimethoprim/Sulfamethoxazole (Sulfamethox/Trimeth 800/160 Tablet) 1 tab G-TUBE DAILY [facility] Last Admin: 06/09/23 09:13 Dose: 1 tab Zinc Sulfate (Zinc Sulfate 220 Mg Capsule) 220 mg G-TUBE DAILY [facility] Last Admin: 06/09/23 09:14 Dose: 220 mg Home Medications Medication Instructions Recorded Confirmed Last Taken Type acetaminophen 325 mg tablet 650 mg feeding tube Q4H PRN Fever 01/02/23 06/04/23 01/02/23 08:00 History Or Pain albuterol sulfate 2.5 mg/3 mL 2.5 mg inhalation Q4H PRN 01/02/23 06/04/23 Unknown History (0.083 %) solution for nebulization Shortness Of Breath Or Wheezing ascorbic acid (vitamin C) 250 mg 250 mg feeding tube DAILY 01/02/23 06/04/23 06/04/23 History tablet atovaquone 750 mg/5 mL oral 750 mg feeding tube BIDWM 01/02/23 06/04/23 06/04/23 08:28 History suspension baclofen 10 mg tablet 5 mg feeding tube TID 01/02/23 06/04/23 06/04/23 History bisacodyl 10 mg rectal suppository 10 mg [place] DAILY PRN Constipation 01/02/23 06/04/23 Unknown History cholecalciferol (vitamin D3) 1,250 1,250 mcg feeding tube QMONTH 01/02/23 06/04/2323 History mcg (50,000 unit) tablet cholestyramine-aspartame 4 gram 4 g feeding tube BID 01/02/23 06/04/23 06/04/23 08:28 History oral powder for susp in a packet (Cholestyramine Light) doxazosin 1 mg tablet 1 mg feeding tube BEDTIME 01/02/23 06/04/23 01/02/23 08:00 History famotidine 20 mg tablet 20 mg feeding tube BID 01/02/23 01/31/23 01/02/23 08:00 History ferrous sulfate 300 mg (60 mg 300 mg feeding tube DAILY 01/02/23 06/04/23 06/04/23 History iron)/5 mL oral liquid finasteride 5 mg tablet 5 mg feeding tube DAILY 01/02/23 06/04/23 06/04/23 History glycopyrrolate 1 mg tablet 1 mg feeding tube TID 01/02/23 06/04/23 06/04/23 05:27 History guaifenesin 200 mg/5 mL oral liquid 200 mg feeding tube Q4H PRN Cough 01/02/23 06/04/23 Unknown History lacosamide 200 mg tablet 200 mg feeding tube BID 01/02/23 06/04/23 06/04/23 History leucovorin calcium 25 mg tablet 25 mg feeding tube BEDTIME 01/02/23 06/04/23 Unknown History loperamide 2 mg capsule 2 mg feeding tube Q4H PRN Diarrhea 01/02/23 06/04/23 Unknown History lorazepam 0.5 mg tablet 0.5 mg feeding tube Q6H PRN Anxiety 01/02/23 06/04/23 01/02/23 00:48 History lorazepam 2 mg/mL injection See Rx Instructions .Route .COMPLEX 01/02/23 06/04/23 Unknown History solution magnesium hydroxide 400 mg/5 mL 30 ml feeding tube DAILY PRN 01/02/23 06/04/23 Unknown History oral suspension (Milk of Magnesia) Constipation melatonin 3 mg tablet 3 mg feeding tube BEDTIME 01/02/23 06/04/23 Unknown History midodrine 5 mg tablet 7.5 mg feeding tube TID 01/02/23 06/04/23 06/04/23 History morphine 10 mg/5 mL oral solution 10 mg feeding tube DAILY 0506/04/23 06/04/23 History ondansetron HCl 2 mg/mL 4 mg IM Q4H PRN Nausea And Vomiting 01/02/23 06/04/23 Unknown History intravenous solution ondansetron HCl 4 mg tablet 4 mg feeding tube Q4H PRN Nausea 01/02/23 06/04/23 Unknown History And Vomiting oxycodone 5 mg tablet 5 mg feeding tube Q4H PRN Moderate 01/02/23 06/04/23 Unknown History Pain (Scale Score 5-6) scopolamine base 1 mg over 3 days 1 patch transdermal Q3D 01/02/23 06/04/23 Unknown History transdermal patch sennosides 8.6 mg-docusate sodium 1 tab-cap PO BID PRN Constipation 01/02/23 06/04/23 01/02/23 08:00 History 50 mg tablet (Senna with Docusate Sodium) sodium phosphates 19 gram-7 118 ml MA DAILY PRN Constipation 01/02/23 06/04/23 Unknown History gram/118 mL enema (Fleet Enema) tramadol 50 mg tablet 50 mg feeding tube Q4H PRN Pain 01/02/23 06/04/23 Unknown History zinc sulfate 50 mg zinc (220 mg) 50 mg feeding tube DAILY 01/02/23 06/04/23 06/04/23 History tablet multivitamin 1 tab feeding tube DAILY 01/31/23 06/04/23 06/04/23 History pyrimethamine 25 mg tablet 50 mg feeding tube DAILY 01/31/23 06/04/23 06/04/23 History betamethasone dipropionate 0.05 % 1 appl topical DAILY 06/04/23 06/04/23 06/04/23 History topical ointment carboxymethylcellulose sodium 0.25 2 drp ophthalmic (eye) BID 06/04/23 06/04/23 06/04/23 History % eye drops cefepime 1 gram solution for 2 g IM Q12H 06/04/23 06/04/23 06/04/23 02:26 History injection esomeprazole magnesium 40 mg 40 mg PO DAILY 06/04/23 06/04/23 06/04/23 History granules delayed release for susp morphine 10 mg/5 mL oral solution 5 mg feeding tube DAILY PRN Pain 06/04/23 06/04/23 Unknown History sucralfate 1 gram tablet 1 g PO BID 06/04/23 06/04/23 Unknown History Physical Exam 2 Vital Signs: Vital Signs: Last Vital Signs Temp 97.8 F 06/09/23 07:59 Pulse 86 06/09/23 07:59 Resp 20 06/09/23 07:59 BP 108/73 06/09/23 07:59 Pulse Ox 88 L 06/09/23 07:59 O2 Del Method Trach Collar 06/09/23 07:59 O2 Flow Rate 4 06/09/23 07:59 FiO2 30 06/08/23 19:47 Oxygen Flow Rate 3 06/04/23 12:33 BMI result Body Mass Index 21.2 Const: General: cooperative HEENT: Head: Yes normal to inspection Face and sinus: Yes normal facial exam Mouth: Normal oral and palatal mucosa present Teeth and gingiva: d entition normal Eyes: General: appearance normal, both eyes and all related structures P upils: Equal, round and reactive pupils present Resp: Effort & Inspection: normal respiratory effort Cardio: Rate: regular rate Rhythm: regular rhythm GI: Palpation (GI): Soft to palpation and nontender : General: Yes no CVA tenderness Back/Spine/Pelvis: Back: no CVA tenderness Skin: General skin exam: no rashes or lesions noted Neuro: General: moves all extremities Cranial nerves: Yes Equal, round and reactive pupils present Extrem: General: Yes normal to inspection Psych: Other: nonverbal decubiti chronic buttock,feet past Rubio trach Results Labs 06/08/23 06:05 06/08/23 06:05 Microbiology Microbiology Results: Microbiology 06/04/23 11:27 Blood - Venous Blood Culture - Final No growth after 5 days. 06/04/23 11:27 Blood - Venous Blood Culture - Final No growth after 5 days. 06/06/23 21:35 Sputum - Suctioned Gram Stain - Final 06/06/23 21:35 Sputum - Suctioned Sputum Culture - Preliminary Gram negative jessie Assessment and Plan (1) Tracheitis: Status: Acute (2) Aspiration into airway: Qualifiers: Encounter type: initial encounter Qualified Code(s): T17.908A - Unspecified foreign body in respiratory tract, part unspecified causing other injury, initial encounter Status: Acute (3) Bacteremia: Status: Acute There is concern over E coli ESBL urine and blood Multiple infections over years Sputum may be same or may be Pseudomonas Plan Would continue Merem. Would consider change to Ertapenem if not Pseudomonas sputum. Finish antibiotics 06/18/2023. Time Spent With Patient Time: Total time managing care of this patient today ____ minutes.
--- NOTE | 2023-06-09 15:21 | HO.PM.IMPN ---
Subjective Subjective Date of Service: 06/09/23 Interval History: seen and examined this morning patient awake, alert, appears comfortable nonverbal at baseline, answers some simple questions by shaking head or thumbs up/down Physical Exam Vital Signs: Vital Signs: Last Vital Signs Temp 97.8 F 06/09/23 07:59 Pulse 86 06/09/23 07:59 Resp 20 06/09/23 07:59 BP 108/73 06/09/23 07:59 Pulse Ox 88 L 06/09/23 07:59 O2 Del Method Trach Collar 06/09/23 07:59 O2 Flow Rate 4 06/09/23 07:59 FiO2 30 06/08/23 19:47 Oxygen Flow Rate 3 06/04/23 12:33 BMI result Body Mass Index 21.2 Const: Other: appears comfortable; breathing easy; unable to assess orientation General: no acute distress, alert and awake Nutritional Appearance: thin Resp: Other: tach in place Effort & Inspection: normal respiratory effort, no respiratory distress and no use of accessory muscles Cardio: Rate: regular rate GI: Other: gtube in place Inspection: No distended : Other: rincon in place Skin: Other: multiple chronic wounds b/l hips, b/l buttock, left heel Objective Data Active Medications Acetaminophen (Acetaminophen 325 Mg Tablet) 650 mg G-TUBE Q4H PRN PRN Reason: Fever Or Pain Albuterol Sulfate (Albuterol Sulfate (0.083%) 2.5 Mg/3 Ml Vial.Neb) 2.5 mg INHALE Q4H PRN PRN Reason: Shortness Of Breath Or Wheezing Artificial Tears (Artificial Tears 15 Ml Drops) 2 drop EYE-BOTH BID [facility] Last Admin: 06/09/23 09:58 Dose: 2 drop Documented By: TIFFANIE Ascorbic Acid (Ascorbic Acid 250 Mg Tablet) 250 mg G-TUBE DAILY [facility] Last Admin: 06/09/23 09:14 Dose: 250 mg Documented By: TIFFANIE Atovaquone (Atovaquone 750 Mg/5 Ml Oral.Susp) 750 mg G-TUBE BIDWM [facility] Last Admin: 06/09/23 09:13 Dose: 750 mg Documented By: TIFFANIE Baclofen (Baclofen 10 Mg Tablet) 5 mg G-TUBE TID [facility] Last Admin: 06/09/23 09:14 Dose: 5 mg Documented By: TIFFANIE Bisacodyl (Bisacodyl 10 Mg Supp.Rect) 10 mg [place] DAILY PRN PRN Reason: Constipation Chlorhexidine Gluconate (Chlorhexidine Gluc Oral Rinse 15 Ml Mouthwash) 15 ml BUCCAL BID [facility] Last Admin: 06/09/23 09:12 Dose: 15 ml Documented By: TIFFANIE Enoxaparin Sodium (Enoxaparin Sodium 40 Mg/0.4 Ml Syringe) 40 mg SUBCUT Q24H [facility] Last Admin: 06/09/23 13:09 Dose: 40 mg Documented By: TIFFANIE Ferrous Sulfate (Ferrous Sulfate 300 Mg/5 Ml Liquid) 300 mg G-TUBE DAILY [facility] Last Admin: 06/09/23 09:12 Dose: 300 mg Documented By: TIFFANIE Glycopyrrolate (Glycopyrrolate 1 Mg Tablet) 1 mg G-TUBE TID [facility] Last Admin: 06/09/23 09:14 Dose: 1 mg Documented By: TIFFANIE Guaifenesin (Guaifenesin 100 Mg/5 Ml Liquid) 10 ml G-TUBE Q4H PRN PRN Reason: Cough Last Admin: 06/07/23 01:11 Dose: 10 ml Documented By: YELITZA Heparin Sodium (Porcine) (Heparin Sodium,Porcine Flush 50 Units/5 Ml Syringe) 50 units IVFLUSH QSHIFT [facility] Last Admin: 06/09/23 09:18 Dose: 50 units Documented By: TIFFANIE Meropenem 1 gm/ Sodium (Chloride) 100 mls @ 200 mls/hr IV Q8H [facility] Last Infusion: 06/09/23 14:00 Dose: Infused Documented By: TIFFANIE Lacosamide (Lacosamide 100 Mg Tablet) 200 mg G-TUBE BID [facility] Last Admin: 06/09/23 09:13 Dose: 200 mg Documented By: TIFFANIE Leucovorin Calcium (Leucovorin Calcium 5 Mg Tablet) 25 mg G-TUBE BEDTIME [facility] Last Admin: 06/08/23 20:00 Dose: 25 mg Documented By: NOAM Loperamide HCl (Loperamide Hcl 2 Mg Capsule) 2 mg G-TUBE Q4H PRN PRN Reason: Diarrhea Lorazepam (Lorazepam 0.5 Mg Tablet) 0.5 mg G-TUBE Q6H PRN PRN Reason: Anxiety Magnesium Hydroxide (Milk Of Magnesia 30 Ml Oral.Susp) 30 ml G-TUBE DAILY PRN PRN Reason: Constipation Melatonin (Melatonin 3 Mg Tablet) 3 mg G-TUBE BEDTIME [facility] Last Admin: 06/08/23 20:00 Dose: 3 mg Documented By: NOAM Midodrine (Midodrine Hcl 2.5 Mg Tablet) 7.5 mg G-TUBE TID [facility] Last Admin: 06/09/23 09:13 Dose: 7.5 mg Documented By: TIFFANIE Morphine Sulfate (Morphine Sulfate Oral Cady 10 Mg/5 Ml Solution) 5 mg G-TUBE DAILY PRN PRN Reason: Pain, Severe (Pain Scale 7-10) Morphine Sulfate (Morphine Sulfate Oral Cady 10 Mg/5 Ml Solution) 10 mg G-TUBE DAILY [facility] Last Admin: 06/09/23 09:13 Dose: 10 mg Documented By: TIFFANIE Multivitamins/Vitamin C (Multivitamin Tablet) 1 tab PO DAILY [facility] Last Admin: 06/09/23 09:14 Dose: 1 tab Documented By: TIFFANIE Omeprazole (Omeprazole/Na Bicarb Oral Susp 20 Mg/10 Ml Ud Cup) 20 mg G-TUBE DAILY@0630 [facility] Last Admin: 06/09/23 05:38 Dose: 20 mg Documented By: NOAM Ondansetron HCl (Ondansetron Hcl 4 Mg/2 Ml Vial) 4 mg IVPUSH Q8H PRN PRN Reason: Nausea and Vomiting Oxycodone HCl (Oxycodone Hcl Immed Release 5 Mg Tablet) 5 mg G-TUBE Q4H PRN PRN Reason: Moderate Pain (Scale Score 5-6) Last Admin: 06/07/23 21:42 Dose: 5 mg Documented By: YELITZA Scopolamine (Scopolamine 1.5 Mg Patch.Td.3) 1.5 mg TRANSDERMA Q3D [facility] Last Admin: 06/07/23 13:08 Dose: 1.5 mg Documented By: JULIO Senna/Docusate Sodium (Sennosides/Docusate Sodium Tablet) 1 tab PO BID PRN PRN Reason: Constipation Sodium Biphosphate/Sodium Phosphate (Sodium Phosphate,[place]-Dibasic 133 Ml Enema) 118 ml [place] DAILY PRN PRN Reason: Constipation Sodium Chloride (0.9 % Sodium Chloride Flush 3 Ml Syringe) 3 ml IVFLUSH QSHIFT [facility] Last Admin: 06/09/23 09:12 Dose: 3 ml Documented By: TIFFANIE Sucralfate (Sucralfate 1 Gm Tablet) 1 gm PO BID [facility] Last Admin: 06/09/23 10:22 Dose: 1 gm Documented By: TIFFANIE Tramadol HCl (Tramadol Hcl 50 Mg Tablet) 50 mg G-TUBE Q4H PRN PRN Reason: Pain, Moderate(Pain Scale 4-6) Triamcinolone Acetonide (Triamcinolone Acet 0.5 % Oint 15 Gm Tube) 1 appl TOPICAL DAILY [facility] Last Admin: 06/09/23 10:23 Dose: Not Given Documented By: TIFFANIE Non-Admin Reason: med not available, pharmacy notified Trimethoprim/Sulfamethoxazole (Sulfamethox/Trimeth 800/160 Tablet) 1 tab G-TUBE DAILY [facility] Last Admin: 06/09/23 09:13 Dose: 1 tab Documented By: TIFFANIE Zinc Sulfate (Zinc Sulfate 220 Mg Capsule) 220 mg G-TUBE DAILY [facility] Last Admin: 06/09/23 09:14 Dose: 220 mg Documented By: TIFFANIE Labs 06/08/23 06:05 06/08/23 06:05 Microbiology Microbiology Results: Microbiology 06/04/23 11:27 Blood Culture - Final Blood - Venous No growth after 5 days. 06/04/23 11:27 Blood Culture - Final Blood - Venous No growth after 5 days. 06/06/23 21:35 Gram Stain - Final Sputum - Suctioned Sputum Culture - Preliminary Gram negative jessie Assessment and Plan (1) Tracheostomy dependent: Status: Acute (2) Aspiration pneumonia: Status: Acute (3) Bacteremia: Status: Acute Plan 52-year-old male with a PMH significant for?stage IV mantle cell lymphoma, [employer] toxoplasmosis, chronic respiratory failure, BPH with urinary retention and chronic catheter in place, seizure disorder, chronic trach collar and G-tube in place who presents to the ED from [facility] for evaluation of bacteremia with hypotension and possible sepsis. Pt will be admitted to the hospital for treatment and further evaluation of bacteremia with 1/2 blood cultures growing Gram-negative rods. E coli UTI/Bacteremia, ESBL positive related to chronic indwelling rincon no fevers, WBC normalized 1/2 blood cultures 06/03 positive for e.coli esbl + and urine culture from grew E coli esbl +, repeat blood cultures 06/04 negative history of ESBL Klebsiella, Pseudomonas cont. IV meropenem,started 06/04/2023, midline placed 06/08 seen by ID, plan for 14 days total of IV ertapenem on discharge - end date 06/18 sputum culture growing GNR - await final results Hypotension sent to the ED from [facility] d/t hypotension, BP 91/58 at time of presentation, has chronically soft blood pressure, now sbp > 100 s/p IVF in the ED Will resume doxazosin Continue midodrine, Monitor BP Acute Left lower lobe pneumonia/ Chronic tracheostomy noted to have significant secretions requiring frequent suctioning since 06/06 Less secretions x 48 h, no fevers, normal WBC, clinically improved Chest x-ray showed worsening left lower lobe opacity,sputum cultures growing GNR - final results pending Continue Robinul and scopolamine patch Continue respiratory care and current antibiotic as above, no residual from G-tube feeds, keep head of the bed elevated continuous oxygen monitoring. 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, bed bound Continue atovaquone, leucovirin, bactrim in place of Pyrimethamine BPH/urinary retention chronic Rincon in place, Continue finasteride Seizure disorder Continue lacosamide GERD Continue famotidine Deep tissue pressure injury present on admission, right ischium/left ischium Right trochanter stage IV pressure injury present on admission Left trochanter unstageable pressure injury present on admission Left heel resolving stage II pressure injury present on admission Right lateral malleolus full-thickness pressure injury Seen by wound nurse will follow dressing change as recommended Full Code DVT Prophylaxis: Marcin attending Dr. Jimenez dispo: to return to [facility] Pt will require continued inpatient hospitalization for treatment of?bacteremia in the setting of UTI on IV antibiotics, and follow-up on copious tracheostomy drainage and wound care . Time Spent With Patient Time: Total time managing care of this patient today ____ minutes. Quality Stroke Does the patient have a stroke diagnosis?: No VTE Prior VTE?: No VTE Risk Level:: Medical - moderate - high VTE Device Contraindication: Treatment Not Indicated VTE Drug Contraindication: N/A - Med Ordered
[2023-06-09 16:00] VITALS: BP 88/53; PULSE 95; RESP 20; TEMP 36.4; O2SAT 97
[2023-06-09 17:20] VITALS: BP 90/63
[2023-06-09 19:30] VITALS: BP 106/63; PULSE 89; RESP 16; TEMP 37.2; O2SAT 93
[2023-06-09] MEDS: Melatonin 3 MG TABLET G-TUBE (19:41)
[2023-06-10 03:48] VITALS: BP 102/64; PULSE 95; RESP 14; TEMP 36.6; O2SAT 94
[2023-06-10] MEDS: Omeprazole/Na Bicarb Oral Susp 20 MG/10 ML UD Cup G-TUBE (05:31)
[2023-06-10 08:00] VITALS: BP 96/61; PULSE 90; RESP 20; TEMP 36.6; O2SAT 97
[2023-06-10 09:00] VITALS: PULSE 89; RESP 22; O2SAT 92
[2023-06-10] MEDS: Ferrous Sulfate 300 MG/5 ML LIQUID G-TUBE (09:52)
[2023-06-10] MEDS: Atovaquone 750 MG/5 ML ORAL.SUSP G-TUBE (09:52)
[2023-06-10] MEDS: Heparin Sodium,Porcine Flush 50 UNITS/5 ML SYRINGE IVFLUSH (09:52)
[2023-06-10] MEDS: Chlorhexidine Gluc Oral Rinse 15 ML MOUTHWASH BUCCAL (09:52)
[2023-06-10] MEDS: guaiFENesin 100 MG/5 ML LIQUID 10 ML G-TUBE (09:52)
[2023-06-10] MEDS: Morphine Sulfate Oral Sol 10 MG/5 ML SOLUTION G-TUBE (09:52)
[2023-06-10] MEDS: Sulfamethox/Trimeth 800/160 TABLET 1 TAB G-TUBE (09:53)
[2023-06-10] MEDS: Sucralfate 1 GM TABLET PO (09:53)
[2023-06-10] MEDS: Ascorbic Acid 250 MG TABLET G-TUBE (09:53)
[2023-06-10] MEDS: Glycopyrrolate 1 MG TABLET G-TUBE ×2 (09:53→14:12)
[2023-06-10] MEDS: Artificial Tears 15 ML DROPS 2 DROP EYE-BOTH (09:53)
[2023-06-10] MEDS: Baclofen 10 MG TABLET 5 MG G-TUBE ×2 (09:53→14:12)
[2023-06-10] MEDS: Zinc Sulfate 220 MG CAPSULE G-TUBE (09:53)
[2023-06-10] MEDS: 0.9 % Sodium Chloride Flush 3 ML SYRINGE IVFLUSH (09:53)
[2023-06-10] MEDS: Midodrine HCl 2.5 MG TABLET 7.5 MG G-TUBE ×2 (09:53→14:12)
[2023-06-10] MEDS: Lacosamide 100 MG TABLET 200 MG G-TUBE (09:53)
[2023-06-10] MEDS: Multivitamin TABLET 1 TAB PO (09:53)
[2023-06-10 10:36] VITALS: O2SAT 6; O2SAT 94
--- NOTE | 2023-06-10 11:42 | P.DS_ITS ---
DS: Providers Provider Date of Service: 06/10/23 Date of admission: 06/04/23 12:59 Date of discharge: 06/10/23 Primary care physician: Florencia Delgado NP Consults: 06/04/23 11:06 Consult to Infectious Diseases Routine Consulting Provider: BROOK DUQUE Reason for consultation: esbl bacteremia 06/04/23 19:42 Consult to Wound Care Routine Consulting Provider: Yana Delacruz Reason for consultation: pressure injury 06/06/23 08:38 Consult to Pulmonology Routine Consulting Provider: [facility] Pulmonology Services Reason for consultation: trach care Has provider been notified: Yes 06/09/23 07:23 Consult to Infectious Diseases Routine Consulting Provider: [facility] Infectious Disease Reason for consultation: esbl uti/bacteremia Has provider been notified: No Attending physician on discharge: Jose Jimenez Discharging clinician: Diane Casas DS: Diagnosis Discharge Diagnosis (1) Tracheostomy dependent: Status: Acute (2) Aspiration pneumonia: Status: Acute (3) Bacteremia: Status: Acute (4) UTI (urinary tract infection): Status: Acute DS: Summary Hospital Course Hospital Course: From H&P on day of admission Pt is a 52-year-old male with a PMH significant for?stage IV mantle cell lymphoma, [employer] toxoplasmosis, chronic respiratory failure, BPH with urinary retention and chronic catheter in place, seizure disorder, chronic trach collar and G-tube in place who presents to the ED from [facility] for evaluation of bacteremia with hypotension and possible sepsis. Patient with UTI and had 1/2 blood cultures positive negative rods. Patient was started on ceftriaxone at [facility] then switched to cefepime, however patient was noted to be hypotensive and staff at [facility] worried that antibiotic regimen was not sufficient and so sent patient to ED for further evaluation. Pt is nonverbal and bedbound at baseline, incapable of providing HPI. In the ED patient was afebrile with soft BP of 91/58, but otherwise hemodynamically stable without tachypnea or tachycardia. Labs were significant for H&H 9.4/30.5 (near baseline), BUN 35, alk-phos 228. No leukocytosis. Electrolytes WNL. Lactic acid WNL at 1.7. Initial troponin pending. EKG demonstrated normal sinus rhythm without evidence of significant ST elevations or depressions. Pt was treated with ertapenem and IVF. Pt will be admitted to the hospital for treatment and further evaluation of bacteremia with 1/2 blood cultures growing Gram-negative rods. Pt does not currently meet sepsis criteria. E coli UTI/Bacteremia, ESBL positive related to chronic indwelling rincon no fevers, WBC normalized 1/2 blood cultures 06/03 positive for e.coli esbl + and urine culture from grew E coli esbl +, repeat blood cultures 06/04 negative treated with IV meropenem, started 06/04/2023, midline placed 06/08. seen by ID, plan for 14 days total of IV meropenem on discharge - end date 06/18 Hypotension has chronically soft blood pressure. s/p IVF in the ED. Continue midodrine Acute Left lower lobe pneumonia/ Chronic tracheostomy noted to have significant secretions requiring frequent suctioning since 06/06. CXR showing left lower lung opacity concerning for pneumonia. Seen by pulmonology and ID during hospitalization. Less secretions x 48 h, no fevers, normal WBC, clinically improved. Continue Robinul and scopolamine patch. sputum cultures growing pseduomonas aeruginosa. Discussed with ID, plan for IV meropenem on discharge as above. Currently on baseline oxygen through tracheotomy. doxycycline placed on hold while on meropenem. for chronic wounds, continue local wound care. Time Spent with Patient Time attestation: Total time managing care of this patient today ____ minutes. Discharge coordination time: Greater than 30 minutes Quality: Safe Use of Opioids Does Pt have an Active Cancer Diagnosis on the Problem List?: No Quality: Stroke Does the patient have a stroke diagnosis?: No Physical Exam Vital Signs: Vital Signs: Last Vital Signs Temp 97.9 F 06/10/23 08:00 Pulse 90 06/10/23 08:00 Resp 20 06/10/23 08:00 BP 96/61 06/10/23 08:00 Pulse Ox 94 06/10/23 10:36 O2 Del Method Trach Collar 06/10/23 10:36 O2 Flow Rate 6 06/10/23 10:36 FiO2 30 06/08/23 19:47 Oxygen Flow Rate 3 06/04/23 12:33 BMI result Body Mass Index 21.2 Const: Other: appears comfortable; breathing easy; unable to assess orientation General: no acute distress, alert and awake Nutritional Appearance: thin Resp: Other: tach in place Effort & Inspection: normal respiratory effort, no respiratory distress and no use of accessory muscles Cardio: Rate: regular rate GI: Other: gtube in place Inspection: No distended : Other: rincon in place Skin: Other: multiple chronic wounds b/l hips, b/l buttock, left heel DS: Data Data Completed and Pending Completed studies during hospitalization [Text1]: Procedures Change Tracheostomy Device in Trachea, External Approach (01/31/23) Excision of Lower Esophagus, Via Natural or Artificial Opening Endoscopic, Diagnostic (01/31/23) Insertion of Infusion Device into Superior Vena Cava, Percutaneous Approach (01/02/23) Ultrasonography of Superior Vena Cava, Guidance (01/02/23) Discharge Plan Discharge Patient Disposition: Xfer [facility] Discharge Diagnosis: pneumonia UTI bacteremia Referrals: BROOK DUQUE MD [Physician] - 2 Weeks Florencia Delgado NP [Primary Care Provider] - 1 Week Discharge Medications: New meropenem 1 gram Recon Soln 1 g IV Q8H Qty: 10 0RF Continued glycopyrrolate 1 mg Tablet 1 mg feeding tube TID leucovorin calcium 25 mg Tablet 25 mg feeding tube BEDTIME midodrine 5 mg Tablet 7.5 mg feeding tube TID Rx Instructions: do not give last dose of day after 6PM or within 4 hrs of bedtime melatonin 3 mg Tablet 3 mg feeding tube BEDTIME famotidine 20 mg Tablet 20 mg feeding tube BID ascorbic acid (vitamin C) 250 mg Tablet 250 mg feeding tube DAILY baclofen 10 mg Tablet 5 mg feeding tube TID ferrous sulfate 300 mg (60 mg iron)/5 mL Liquid 300 mg feeding tube DAILY finasteride 5 mg Tablet 5 mg feeding tube DAILY atovaquone 750 mg/5 mL Suspension 750 mg feeding tube BIDWM Rx Instructions: must administer with food, preferably a high-fat meal cholestyramine-aspartame [Cholestyramine Light] 4 gram Powder In Packet 4 g feeding tube BID Rx Instructions: administer w/meal; avoid other meds within 1hr before or 4-6hr after dose lacosamide 200 mg Tablet 200 mg feeding tube BID cholecalciferol (vitamin D3) 1,250 mcg (50,000 unit) Tablet 1,250 mcg feeding tube QMONTH Rx Instructions: MONTHLY ON DAY 15 OF THE MONTH acetaminophen 325 mg Tablet 650 mg feeding tube Q4H PRN (Reason: Fever Or Pain) albuterol sulfate 2.5 mg /3 mL (0.083 %) Solution For Nebulization 2.5 mg INHALATION Q4H PRN (Reason: Shortness Of Breath Or Wheezing) loperamide 2 mg Capsule 2 mg feeding tube Q4H PRN (Reason: Diarrhea) Rx Instructions: administer after each loose stool until symptoms controlled; do not exceed 8 mg per 24 hrs ondansetron HCl 2 mg/mL Solution 4 mg IM Q4H PRN (Reason: Nausea And Vomiting) ondansetron HCl 4 mg Tablet 4 mg feeding tube Q4H PRN (Reason: Nausea And Vomiting) sennosides-docusate sodium [Senna with Docusate Sodium] 8.6-50 mg Tablet 1 tab-cap PO BID PRN (Reason: Constipation) Rx Instructions: G-TUBE tramadol 50 mg Tablet 50 mg feeding tube Q4H PRN (Reason: Pain) zinc sulfate 50 mg zinc (220 mg) Tablet 50 mg feeding tube DAILY lorazepam 0.5 mg Tablet 0.5 mg feeding tube Q6H PRN (Reason: Anxiety) magnesium hydroxide [Milk of Magnesia] 400 mg/5 mL Suspension 30 ml feeding tube DAILY PRN (Reason: Constipation) bisacodyl 10 mg Suppository 10 mg GA DAILY PRN (Reason: Constipation) Fleet Enema 19-7 gram/118 mL Enema 118 ml GA DAILY PRN (Reason: Constipation) morphine 10 mg/5 mL Solution 10 mg feeding tube DAILY scopolamine base 1 mg over 3 days Patch 3 Day 1 patch TRANSDERMAL Q3D oxycodone 5 mg Tablet 5 mg feeding tube Q4H PRN (Reason: Moderate Pain (Scale Score 5-6)) guaifenesin 200 mg/5 mL Liquid 200 mg feeding tube Q4H PRN (Reason: Cough) lorazepam 2 mg/mL Solution See Rx Instructions .ROUTE .COMPLEX Rx Instructions: 2 mg intramuscularly as directed for seizure >5 minutes multivitamin Tablet 1 tab feeding tube DAILY pyrimethamine 25 mg Tablet 50 mg feeding tube DAILY sucralfate 1 gram Tablet 1 g PO BID carboxymethylcellulose sodium 0.25 % Drops 2 drp OPHTHALMIC (EYE) BID morphine 10 mg/5 mL Solution 5 mg feeding tube DAILY PRN (Reason: Pain) betamethasone dipropionate 0.05 % Ointment 1 appl TOPICAL DAILY Rx Instructions: left buttock wound esomeprazole magnesium [address] For Susp In Packet 40 mg PO DAILY Held doxazosin 1 mg Tablet 1 mg feeding tube BEDTIME Hold Instructions: resume as indicated Discontinued doxycycline monohydrate 100 mg Capsule 100 mg G-tube BID Qty: 16 0RF cefepime 1 gram Recon Soln 2 g IM Q12H Rx Instructions: WITH LIDOCAINE 2.4ML Discharge Orders: Discharge Order (Routine); Ordered 06/10/23 Ordered By: Diane Casas Activity on Discharge: As tolerated Stand Alone Forms: Patient Portal Discharge page Care Plan Goals: see below Health Concerns: pneumonia UTI realted to chronic indwelling rincon bacteremia due to above chronic wounds Plan of Treatment: continue meropenem for UTI/bacteremia/pneumonia - end date 06/18 doxazosin on hold for soft bp, resume as indicated outpatient follow up with ID monitor CBC, BMP weekly starting on Tuesday while receiving IV abx Assessment: see discharge summary
--- NOTE | 2023-06-10 12:48 | MHC.CM.PN ---
PT CLEARED TO DC TODAY CM SPOKE TO CHELI AT [facility] SHE IS AWARE PT WILL DC ON Q8HR MEROPENEM AND WILL BE READY TODAY SHE REPORTS PT UNABLE TO COME BACK AFTER 1500 HOURS THE MED PROVIDER THERE WILL BE GONE TRANSPORT ARRANGED FOR 1400 HOURS CLINICALS SENT VIA [email or web address] CHELI ASKED THAT A DOC TO DOC REPORT BE COMPLETED SHE PROVIDED CONTACT INFO FOR THEIR MEDICAL PROVIDER, JEAN MARIE [phone] SHE ALSO ASKED THAT THE NURSE TO NURSE REPORT BE CALLED TO [phone] NUMBERS RELAYED TO HOSPITALIST AND NURSE CM LEFT A VM MESSAGE FOR PTS HCP [facility] [phone] INFORMING THEM OF DC AND PROVIDING CM CONTACT INFO
[2023-06-10] MEDS: Enoxaparin Sodium 40 MG/0.4 ML SYRINGE SUBCUT (13:10)
[2023-06-10] MEDS: Scopolamine 1.5 MG PATCH.TD.3 TRANSDERMA (14:11)
--- NOTE | 2023-06-13 07:21 | P.CDIM_ITS ---
PROVIDER RESPONSE TEXT: To clarify, the appropriate diagnosis supported by the clinical indicators: Yes, UTI is related to / associated with / due to chronic urinary catheter QUERY TEXT: PHYSICIAN'S DOCUMENTATION REQUEST Date of Query: 06/07/2023 09:20 AM EDT Patient Name: Marino Kaminski Admit Date: 06/04/2023 Dear Yana Delacruz, A review of the medical record indicates additional documentation may be needed. Please review below and update the documentation accordingly. Documentation includes the conditions of BPH with urinary retention and chronic catheter in place and UTI. Clinical Indicators: On Finasteride and IV antibiotics Please clarify the relationship between these conditions: Yes, UTI is related to / associated with / due to chronic urinary catheter No, UTI is not related to / associated with / due to chronic urinary catheter Other (explain)Clinically unable to determine (explain)Thank you, Thuy Norton RN Use of terms such as suspected, likely, concern for, or probable (associated with a specific diagnosi s that is being evaluated, monitored, or treated as if it exists) are acceptable and can be coded in the inpatient se tting, when documented at the time of discharge. Please use your independent medical judgment in providing your response. THIS QUERY IS PART OF THE PERMANENT MEDICAL RECORD
== END 2023-06-10 14:30 | DRG 466 ==
LOC: HO.ED 11:24 → HO.EDOVER 12:59 → HO.S3 13:33
PROVIDERS: Hospitalist; Admitting Provider Student in an Organized Health Care Education/Training Program; Emergency Provider Internal Medicine; PCP Nurse Practitioner Adult Health; Visit Provider Physician Assistant Medical
PROC: 05HB33Z Insertion of Infusion Device into Right Basilic Vein, Percutaneous Approach (ICD-10-PCS; principal; 2023-06-08 17:10)
DX: T83.511A Infection and inflammatory reaction due to indwelling urethral catheter, initial encounter (principal); J69.0 Pneumonitis due to inhalation of food and vomit; B58.9 Toxoplasmosis, unspecified; L89.220 Pressure ulcer of left hip, unstageable; L89.214 Pressure ulcer of right hip, stage 4; R78.81 Bacteremia; I95.9 Hypotension, unspecified; C83.10 Mantle cell lymphoma, unspecified site; D84.821 Immunodeficiency due to drugs; G82.20 Paraplegia, unspecified; L89.622 Pressure ulcer of left heel, stage 2; Z93.0 Tracheostomy status; G40.909 Epilepsy, unspecified, not intractable, without status epilepticus; N39.0 Urinary tract infection, site not specified; N40.1 Benign prostatic hyperplasia with lower urinary tract symptoms; K21.9 Gastro-esophageal reflux disease without esophagitis; B96.20 Unspecified Escherichia coli [E. coli] as the cause of diseases classified elsewhere; J04.10 Acute tracheitis without obstruction; Z16.12 Extended spectrum beta lactamase (ESBL) resistance; J96.10 Chronic respiratory failure, unspecified whether with hypoxia or hypercapnia; Z79.60 Long term (current) use of unspecified immunomodulators and immunosuppressants; R33.8 Other retention of urine; Y73.8 Miscellaneous gastroenterology and urology devices associated with adverse incidents, not elsewhere classified; Z74.01 Bed confinement status; Z20.822 Contact with and (suspected) exposure to COVID-19; Z79.899 Other long term (current) drug therapy
CPT/HCPCS: 36410; 36415; 71045; 80048; 80053; 81001; 81003; 83605; 83735; 84484; 85025; 85027; 85610; 87040; 87070; 87077; 87186; 87205; 87635; 93005; 99285; C1751; C1758; J0692; J1335; J1642; J1650; J2185

== ENCOUNTER → 2023-06-04 12:59 | Outpatient (BNV) | payer MEDICAID, SELFPAY | PROVIDERS: Admitting Provider Student in an Organized Health Care Education/Training Program; Emergency Provider Internal Medicine; Visit Provider Hospitalist | DX: Z93.0 Tracheostomy status (principal); J69.0 Pneumonitis due to inhalation of food and vomit; R78.81 Bacteremia; N39.0 Urinary tract infection, site not specified | CPT/HCPCS: 99223; 99233; 99239 ==

== ENCOUNTER → 2023-06-04 12:59 | Outpatient (BNV) | payer MEDICAID, SELFPAY | PROVIDERS: Admitting Provider Student in an Organized Health Care Education/Training Program; Emergency Provider Internal Medicine; PCP Nurse Practitioner Adult Health; Visit Provider Internal Medicine | DX: J04.10 Acute tracheitis without obstruction (principal); T17.908A Unspecified foreign body in respiratory tract, part unspecified causing other injury, initial encounter; R78.81 Bacteremia | CPT/HCPCS: 99222 ==

== ENCOUNTER → 2023-06-04 12:59 | Outpatient (BNV) | payer MEDICAID, SELFPAY | PROVIDERS: Admitting Provider Student in an Organized Health Care Education/Training Program; Emergency Provider Internal Medicine; Visit Provider Hospitalist | DX: J69.0 Pneumonitis due to inhalation of food and vomit (principal); Z93.0 Tracheostomy status | CPT/HCPCS: 99223; 99233 ==

== ENCOUNTER 2023-06-25 15:05 | Outpatient (REF) | payer MEDICAID, SELFPAY | END 2023-06-25 15:06 | disposition home or self-care (01) | LOC: HO.WMHL 15:05 | PROVIDERS: Visit Provider Nurse Practitioner | DX: Z13.89 Encounter for screening for other disorder (principal) | CPT/HCPCS: 87070; 87077; 87147; 87186; 87205 ==

== ENCOUNTER 2023-07-28 15:48 | Emergency (ER) | payer MEDICAID, SELFPAY ==
--- NOTE | ~2023-07-28 | XR_ITS ---
EXAMINATION: XR CHEST CLINICAL INFORMATION: Fever. Aspiration. COMPARISON: Chest x-ray June 06, 2023 TECHNIQUE: Frontal portable view of the chest was obtained. 5:00 PM FINDINGS: Tubes and lines: 1. Tracheostomy tube 6 cm above the edmund. Lungs are normally aerated. No pulmonary vascular congestion. There is no pleural effusion and no pneumothorax. Heart size is normal. The cardiac and mediastinal contours are normal. XR/XR chest 1V IMPRESSION: No acute abnormality of chest.
[2023-07-28 16:01] VITALS: BP 106/74; PULSE 65; RESP 14; TEMP 36.6; O2SAT 99; BMI 23.3
--- NOTE | 2023-07-28 16:53 | ED.GENADULT ---
HPI - General Adult General Chief complaint: Fever Stated complaint: FEVER Time Seen by Provider: 07/28/23 16:46 Source: EMS and RN notes reviewed Mode of arrival: EMS Limitations: language barrier and physical limitation History of Present Illness HPI narrative: Pt is a 52-year-old male with a PMH significant for?stage IV mantle cell lymphoma, LPN toxoplasmosis, chronic respiratory failure, BPH with urinary retention and chronic catheter in place, seizure disorder, chronic trach collar and G-tube in place with sacral decubiti, ESBL bacteria in 06/06 who presents to the ED from [facility] for temperature of a 102 degrees today patient is nonverbal contracted posture Related Data Home Medications Medication Instructions Recorded Confirmed acetaminophen 325 mg tablet 650 mg feeding tube Q4H PRN Fever 01/02/23 06/04/23 Or Pain albuterol sulfate 2.5 mg/3 mL 2.5 mg inhalation Q4H PRN 01/02/23 06/04/23 (0.083 %) solution for nebulization Shortness Of Breath Or Wheezing ascorbic acid (vitamin C) 250 mg 250 mg feeding tube DAILY 01/02/23 06/04/23 tablet atovaquone 750 mg/5 mL oral 750 mg feeding tube BIDWM 01/02/23 06/04/23 suspension baclofen 10 mg tablet 5 mg feeding tube TID 01/02/23 06/04/23 bisacodyl 10 mg rectal suppository 10 mg LA DAILY PRN Constipation 01/02/23 06/04/23 cholecalciferol (vitamin D3) 1,250 1,250 mcg feeding tube QMONTH 01/02/23 06/04/23 mcg (50,000 unit) tablet cholestyramine-aspartame 4 gram 4 g feeding tube BID 01/02/23 06/04/23 oral powder for susp in a packet (Cholestyramine Light) doxazosin 1 mg tablet 1 mg feeding tube BEDTIME 01/02/23 06/04/23 famotidine 20 mg tablet 20 mg feeding tube BID 01/02/23 01/31/23 ferrous sulfate 300 mg (60 mg 300 mg feeding tube DAILY 01/02/23 06/04/23 iron)/5 mL oral liquid finasteride 5 mg tablet 5 mg feeding tube DAILY 01/02/23 06/04/23 glycopyrrolate 1 mg tablet 1 mg feeding tube TID 01/02/23 06/04/23 guaifenesin 200 mg/5 mL oral liquid 200 mg feeding tube Q4H PRN Cough 01/02/23 06/04/23 lacosamide 200 mg tablet 200 mg feeding tube BID 01/02/23 06/04/23 leucovorin calcium 25 mg tablet 25 mg feeding tube BEDTIME 01/02/23 06/04/23 loperamide 2 mg capsule 2 mg feeding tube Q4H PRN Diarrhea 01/02/23 06/04/23 lorazepam 0.5 mg tablet 0.5 mg feeding tube Q6H PRN Anxiety 01/02/23 06/04/23 lorazepam 2 mg/mL injection See Rx Instructions .Route .COMPLEX 01/02/23 06/04/23 solution magnesium hydroxide 400 mg/5 mL 30 ml feeding tube DAILY PRN 01/02/23 06/04/23 oral suspension (Milk of Magnesia) Constipation melatonin 3 mg tablet 3 mg feeding tube BEDTIME 01/02/23 06/04/23 midodrine 5 mg tablet 7.5 mg feeding tube TID 01/02/23 06/04/23 morphine 10 mg/5 mL oral solution 10 mg feeding tube DAILY 01/02/23 06/04/23 ondansetron HCl 2 mg/mL 4 mg IM Q4H PRN Nausea And Vomiting 01/02/23 06/04/23 intravenous solution ondansetron HCl 4 mg tablet 4 mg feeding tube Q4H PRN Nausea 01/02/23 06/04/23 And Vomiting oxycodone 5 mg tablet 5 mg feeding tube Q4H PRN Moderate 01/02/23 06/04/23 Pain (Scale Score 5-6) scopolamine base 1 mg over 3 days 1 patch transdermal Q3D 01/02/23 06/04/23 transdermal patch sennosides 8.6 mg-docusate sodium 1 tab-cap PO BID PRN Constipation 01/02/23 06/04/23 50 mg tablet (Senna with Docusate Sodium) sodium phosphates 19 gram-7 118 ml LA DAILY PRN Constipation 01/02/23 06/04/23 gram/118 mL enema (Fleet Enema) tramadol 50 mg tablet 50 mg feeding tube Q4H PRN Pain 01/02/23 06/04/23 zinc sulfate 50 mg zinc (220 mg) 50 mg feeding tube DAILY 01/02/23 06/04/23 tablet multivitamin 1 tab feeding tube DAILY 01/31/23 06/04/23 pyrimethamine 25 mg tablet 50 mg feeding tube DAILY 01/31/23 06/04/23 betamethasone dipropionate 0.05 % 1 appl topical DAILY 06/04/23 06/04/23 topical ointment carboxymethylcellulose sodium 0.25 2 drp ophthalmic (eye) BID 06/04/23 06/04/23 % eye drops esomeprazole magnesium 40 mg 40 mg PO DAILY 06/04/23 06/04/23 granules delayed release for susp morphine 10 mg/5 mL oral solution 5 mg feeding tube DAILY PRN Pain 06/04/23 06/04/23 sucralfate 1 gram tablet 1 g PO BID 06/04/23 06/04/23 Previous Rx's Medication Instructions Recorded meropenem 1 gram intravenous 1 g IV Q8H #10 ea 06/10/23 solution Allergies Allergy/AdvReac Type Severity Reaction Status Date / Time cyclobenzaprine [Flexeril] Allergy Unknown Palpitation Verified 09/22/20 15:41 s Review of Systems Review of Systems: Yes all other systems are reviewed and are negative [facility] Past Medical History Medical History Mantle cell lymphoma Aspiration into airway Tracheostomy dependent Stage IV decubitus ulcer Osteomyelitis of pelvis Anemia Toxoplasmosis Encephalopathy LPN lymphoma Rectal bleeding H/O: RCT (rotator cuff tear) Depression Appendicitis Chronic pain Kidney stone Mantle cell lymphoma Surgical History History of appendectomy Family History Family History Mother COPD (chronic obstructive pulmonary disease) Sister Colon cancer Social History Social History Household Members: None Housing: Jail Housing Other:: [facility] Do you presently have visiting nurse or other home services: No Unable to assess alcohol history related to: Unknown Alcohol intake: unknown Patient Tobacco Use Status: Never used Tobacco Use of substances other than those prescribed or required for medical reasons: Unable to respond Substance Use Type: Unknown Advance Directives: Yes Advance Directives on File: Yes Advance Directives Date on File: 06/04/23 service: No Current occupational status: unemployed Physical Exam ED Vital Signs: Vital Signs - 24 hr 07/28/23 16:01 07/28/23 17:50 07/28/23 20:06 Temperature 97.8 F 97.9 F Pulse Rate 65 72 71 Respiratory Rate 14 12 95 H Blood Pressure 106/74 98/51 L 108/70 Pulse Oximetry 99 100 100 Oxygen Delivery Method Trach Collar Trach Collar Humidified O2 Oxygen Flow Rate 5 BMI result Body Mass Index 23.3 Appearance: Alert. And awake, emaciated with contracted posture Eyes: PERRLA, No Nystagmus ENT: Pharynx normal. Oral Mucosa moist Neck: Normal inspection. Neck supple. Trach in place CVS: Normal heart rate and rhythm. Pulses normal. Respiratory: No respiratory distress. Equal air entry bilateral, no wheezing/rales/rhonchi Abdomen: Soft and nontender. Bowel sounds are present, no mass palpable, no CVA tenderness Skin: Skin warm and dry. Normal skin color. Normal skin turgor. Sacral decubital ulcer Extremities: No lower extremity edema. No calf tenderness Neuro: Alert with contracted posture nonverbal Medications Administered Discontinued Medications Generic Name Dose Route Start Last Admin Trade Name Freq PRN Reason Stop Dose Admin Sodium Chloride 1,000 mls @ 999 mls/hr 07/28/23 16:55 07/28/23 19:26 Ns IV 07/28/23 17:55 Infused .Q1H1M ONE Infusion Meropenem 1 gm/ Sodium 100 mls @ 200 mls/hr 07/28/23 16:55 07/28/23 19:26 Chloride IV 07/28/23 17:24 Infused ONCE ONE Infusion Vancomycin HCl 1,000 mg/ 535 mls @ 267.5 mls/hr 07/28/23 17:15 07/28/23 21:29 Vancomycin HCl 750 mg/ Sodium IV 07/28/23 19:14 Infused Chloride ONCE ONE Infusion Medical Decision Making Medical Decision Making [facility] Narrative: Patient with incidental fever at detention after arrival patient was afebrile did still have a history of Gram-positive bacteremia and ESBL bacteremia at this time no signs of infection WBC counts are normal lactic acid normal patient afebrile in the ER urine with no bacteria no significant discharge from the decubitus wounds which look healthy with granulation tissue. Blood cultures were taken patient received a dose of vancomycin and ertapenem initially on arrival. Will discharge patient back to nursing cause of fever is not very clear will hold antibiotics at this time Differential Diagnosis Differential Diagnoses: The differential diagnosis associated with the presentation includes Bacteremia/osteomyelitis/UTI Lab Data MDM Lab Attestation statement: I reviewed the patient's lab results. 07/28/23 18:15 07/28/23 18:14 Labs: Lab Results 07/28/23 07/28/23 07/28/23 Range/Units 18:14 18:15 20:09 WBC 10.5 (4.8-10.8) X10*3/uL RBC 3.90 L (4.60-5.80) X10*6/uL Hgb 10.1 L (14.0-18.0) g/dl Hct 32.7 L (42.0-52.0) % MCV 83.8 (80.0-98.0) fL MCH 25.9 L (27.0-33.0) pg MCHC 30.9 L (31.0-36.0) g/dl RDW 19.8 H (11.0-16.0) % Plt Count 227 (160-400) X10*3/uL MPV 10.0 (9.4-12.4) fL Immature Gran % (Auto) 0.5 H (0.0-0.4) % Neut % (Auto) 78.7 H (45-73) % Lymph % (Auto) 7.5 L (20-40) % [place] % (Auto) 11.9 H (2-11) % Eos % (Auto) 1.1 (0-4) % Baso % (Auto) 0.3 (0-2) % Lymph # (Auto) 0.8 L (1.2-4.9) X10*3/uL [place] # (Auto) 1.3 H (0.1-1.2) X10*3/uL Eos # (Auto) 0.1 (0.0-0.4) X10*3/uL Baso # (Auto) 0.0 (0.0-0.2) X10*3/uL Abs Immat Gran (auto) 0.05 H (0.00-0.03) X10*3/uL Absolute Neuts (auto) 8.2 (2.0-8.3) x10*3/uL Absolute Nucleated RBC 0.000 (0.0-0.012) X10*3/uL Nucleated RBC % (auto) 0.0 (0.0-0.2) /100WBC Hold Blue Top SEE NOTE Sodium 138 (135-145) mmol/L Potassium 4.0 (3.3-5.1) mmol/L Chloride 99 (96-108) mmol/L Carbon Dioxide 29 (22-29) mmol/L Anion Gap 14 (12-20) BUN 27 H (9-16) mg/dL Creatinine 0.80 (0.5-1.4) mg/dL Estim Creat Clear Calc 99.6 Estimated GFR > 60 Random Glucose 89 (60-115) mg/dL Lactic Acid 0.8 (0.5-2.0) mmol/L Calcium 9.2 (8.4-10.2) mg/dL Total Bilirubin 0.4 (0.0-1.0) mg/dL AST 23 (5-37) U/L ALT 29 (0-40) U/L Alkaline Phosphatase 174 H (39-117) U/L Total Protein 7.3 (6.5-8.0) g/dL Albumin 3.3 L (3.5-5.0) g/dL Urine Color Yellow Urine Appearance Clear Urine pH 6.0 (5.0-9.0) Ur Specific [place] 1.015 (1.005-1.025) Urine Protein 30 (1+) H (Neg-Trace) mg/dL Urine Glucose (UA) Negative (Negative) mg/dL Urine Ketones Negative (Negative) mg/dL Urine Blood Moderate (2+) H (Negative) Urine Nitrite Negative (Negative) Ur Leukocyte Esterase Moderate (2+) H (Negative) Urine RBC 11-20 H (0-2) /HPF Urine WBC 21-50 H (0-5) /HPF Ur Squamous Epith Cells 0-2 (0-2) /HPF Urine Bacteria None Seen (None Seen) Hyaline Casts 0-2 (0-2) /LPF Influenza Type A (PCR) NEGATIVE (Negative) Influenza Type B (PCR) NEGATIVE (Negative) RSV RNA Qual (PCR) NEGATIVE (Negative) SARS-CoV-2 RNA (RT-PCR) NEGATIVE (Negative) Discharge Plan Discharge Clinical Impression: Fever Patient Disposition: Xfer [facility] Transfer Details: Labs are stable normal lactic acid blood cultures were taken Instructions: Fever in Adults (ED) Additional Instructions: Cause of fever is not clear at this time although patient has chronic decubitus wound look not infected normal lactic acid level blood cultures were taken. Follow-up with PCP and follow the culture results Prescriptions: No Action glycopyrrolate 1 mg Tablet 1 mg feeding tube TID leucovorin calcium 25 mg Tablet 25 mg feeding tube BEDTIME doxazosin 1 mg Tablet 1 mg feeding tube BEDTIME Hold Instructions: resume as indicated midodrine 5 mg Tablet 7.5 mg feeding tube TID Rx Instructions: do not give last dose of day after 6PM or within 4 hrs of bedtime melatonin 3 mg Tablet 3 mg feeding tube BEDTIME famotidine 20 mg Tablet 20 mg feeding tube BID ascorbic acid (vitamin C) 250 mg Tablet 250 mg feeding tube DAILY baclofen 10 mg Tablet 5 mg feeding tube TID ferrous sulfate 300 mg (60 mg iron)/5 mL Liquid 300 mg feeding tube DAILY finasteride 5 mg Tablet 5 mg feeding tube DAILY atovaquone 750 mg/5 mL Suspension 750 mg feeding tube BIDWM Rx Instructions: must administer with food, preferably a high-fat meal cholestyramine-aspartame [Cholestyramine Light] 4 gram Powder In Packet 4 g feeding tube BID Rx Instructions: administer w/meal; avoid other meds within 1hr before or 4-6hr after dose lacosamide 200 mg Tablet 200 mg feeding tube BID cholecalciferol (vitamin D3) 1,250 mcg (50,000 unit) Tablet 1,250 mcg feeding tube QMONTH Rx Instructions: MONTHLY ON DAY 15 OF THE MONTH acetaminophen 325 mg Tablet 650 mg feeding tube Q4H PRN (Reason: Fever Or Pain) albuterol sulfate 2.5 mg /3 mL (0.083 %) Solution For Nebulization 2.5 mg INHALATION Q4H PRN (Reason: Shortness Of Breath Or Wheezing) loperamide 2 mg Capsule 2 mg feeding tube Q4H PRN (Reason: Diarrhea) Rx Instructions: administer after each loose stool until symptoms controlled; do not exceed 8 mg per 24 hrs ondansetron HCl 2 mg/mL Solution 4 mg IM Q4H PRN (Reason: Nausea And Vomiting) ondansetron HCl 4 mg Tablet 4 mg feeding tube Q4H PRN (Reason: Nausea And Vomiting) sennosides-docusate sodium [Senna with Docusate Sodium] 8.6-50 mg Tablet 1 tab-cap PO BID PRN (Reason: Constipation) Rx Instructions: G-TUBE tramadol 50 mg Tablet 50 mg feeding tube Q4H PRN (Reason: Pain) zinc sulfate 50 mg zinc (220 mg) Tablet 50 mg feeding tube DAILY lorazepam 0.5 mg Tablet 0.5 mg feeding tube Q6H PRN (Reason: Anxiety) magnesium hydroxide [Milk of Magnesia] 400 mg/5 mL Suspension 30 ml feeding tube DAILY PRN (Reason: Constipation) bisacodyl 10 mg Suppository 10 mg LA DAILY PRN (Reason: Constipation) Fleet Enema 19-7 gram/118 mL Enema 118 ml LA DAILY PRN (Reason: Constipation) morphine 10 mg/5 mL Solution 10 mg feeding tube DAILY scopolamine base 1 mg over 3 days Patch 3 Day 1 patch TRANSDERMAL Q3D oxycodone 5 mg Tablet 5 mg feeding tube Q4H PRN (Reason: Moderate Pain (Scale Score 5-6)) guaifenesin 200 mg/5 mL Liquid 200 mg feeding tube Q4H PRN (Reason: Cough) lorazepam 2 mg/mL Solution See Rx Instructions .ROUTE .COMPLEX Rx Instructions: 2 mg intramuscularly as directed for seizure >5 minutes multivitamin Tablet 1 tab feeding tube DAILY pyrimethamine 25 mg Tablet 50 mg feeding tube DAILY sucralfate 1 gram Tablet 1 g PO BID carboxymethylcellulose sodium 0.25 % Drops 2 drp OPHTHALMIC (EYE) BID morphine 10 mg/5 mL Solution 5 mg feeding tube DAILY PRN (Reason: Pain) betamethasone dipropionate 0.05 % Ointment 1 appl TOPICAL DAILY Rx Instructions: left buttock wound esomeprazole magnesium [address] For Susp In Packet 40 mg PO DAILY meropenem 1 gram Recon Soln 1 g IV Q8H Qty: 10 0RF Interventions: ED Discharge Assessment Last Done: 07/28/23 22:41 Discharge Date/Time: 07/28/23 22:42
--- NOTE | 2023-07-28 17:31 | PC.RT ---
RT called, pt with tracheostomy admitted to ER. RT placed pt on cool mist at 28% via trach mask. Pt noted to have 7.5 cuffless shiley airway. RT placed 7.5 cuffed shiley at bedside with ube and 10cc syringe as a backup. RN aware.
[2023-07-28 17:50] VITALS: BP 98/51; PULSE 72; RESP 12; TEMP 36.6; O2SAT 100
[2023-07-28] MEDS: 0.9 % Sodium Chloride 1,000 ML 999 ML IV (18:09)
[2023-07-28 18:20] LABS: MANUAL DIFF FLAG NO
[2023-07-28 18:21] LABS: Basophils Percent Auto 0.3 % (0-2); Eosinophils Absolute Auto 0.1 X10*3/uL (0.0-0.4); Eosinophils Percent Auto 1.1 % (0-4); Hematocrit 32.7 % (42.0-52.0); Hemoglobin 10.1 g/dl (14.0-18.0); Imm Gran Abs Auto 0.05 X10*3/uL (0.00-0.03); Imm Gran Pct Auto 0.5 % (0.0-0.4); Lymphocytes Absolute Auto 0.8 X10*3/uL (1.2-4.9); Lymphocytes Percent Auto 7.5 % (20-40); Mean Corpuscular HGB Conc 30.9 g/dl (31.0-36.0); Mean Corpuscular Hemoglobin 25.9 pg (27.0-33.0); Mean Corpuscular Volume 83.8 fL (80.0-98.0); Monocytes Absolute Auto 1.3 X10*3/uL (0.1-1.2); Monocytes Percent Auto 11.9 % (2-11); Neutrophils Absolute Auto 8.2 x10*3/uL (2.0-8.3); Neutrophils Percent Auto 78.7 % (45-73); Platelet Count 227 X10*3/uL (160-400); Red Cell Distribution Width 19.8 % (11.0-16.0); White Blood Count 10.5 X10*3/uL (4.8-10.8)
[2023-07-28 18:30] LABS: Lactic Acid 0.8 mmol/L (0.5-2.0)
--- NOTE | 2023-07-28 18:34 | PC.NURSE ---
patient brought from [facility] for ?osteomyelitis. found to have wounds on bilateral buttocks and hips, provider at bedside to evaluate - similar to previous visits here [place] [facility]. has chronic rincon that was changed <24 hrs prior to arrival at SNF. patient chronic trach, respiratory at bedside as noted for this visit. IV established, labs obtained and sent. fluids/antibiotics hung at this time. nonverbal at baseline, unsure if patient understands [place] or danish due to EMS report. patient contracted, able to move left arm.
[2023-07-28 18:42] LABS: Alanine Aminotransferase 29 U/L (0-40); Albumin Level 3.3 g/dL (3.5-5.0); Alkaline Phosphatase 174 U/L (39-117); Anion Gap 14 (12-20); Aspartate Amino Transferase 23 U/L (5-37); Bilirubin Total 0.4 mg/dL (0.0-1.0); Blood Urea Nitrogen 27 mg/dL (9-16); Calcium 9.2 mg/dL (8.4-10.2); Carbon Dioxide 29 mmol/L (22-29); Chloride 99 mmol/L (96-108); Creatinine Clr Calc Pharmacy 99.6; Estimated Glomerular Filt Rate > 60; Glucose Random 89 mg/dL (60-115); Sodium 138 mmol/L (135-145); Total Protein 7.3 g/dL (6.5-8.0)
[2023-07-28 19:07] LABS: Influenza A PCR NEGATIVE (Negative); Influenza B PCR NEGATIVE (Negative); Resp Syncy Virus RNA Qual PCR NEGATIVE (Negative); SARS COV2 PCR INHOUSE NEGATIVE (Negative)
[2023-07-28] MEDS: vancomycin HCL 1,000 MG, vancomycin HCL 750 MG in 0.9 % Sodium Chloride 500 ML 267.5 MG IV (19:26)
[2023-07-28 20:06] VITALS: BP 108/70; PULSE 71; RESP 95; O2SAT 100
[2023-07-28 20:17] LABS: Appearance Urine Clear; Color Urine Yellow; Glucose Urine UA Negative (Negative); Leukocyte Esterase Urine Moderate (2+) (Negative); Nitrite Urine Negative (Negative); Specific Gravity - Urine 1.015 (1.005-1.025); UMIC TRIGGER UACC YES; Urine Blood Moderate (2+) (Negative); Urine Ketones Negative (Negative); Urine Protein 30 (1+) mg/dL (Neg-Trace)
[2023-07-28 20:53] LABS: Bacteria Urine None Seen (None Seen); Hyaline Casts Urine 0-2 /LPF (0-2); Squamous Epithelial Cell Urine 0-2 /HPF (0-2); UACC Culture Trigger YES; WBC Urine 21-50 /HPF (0-5)
--- NOTE | 2023-07-28 21:45 | PC.NURSE ---
Spoke with RN from [facility]. pt will be transferred via ambulance
== END 2023-07-28 22:42 | disposition skilled nursing facility (03) ==
PROVIDERS: Emergency Provider Internal Medicine; PCP Pediatrics
DX: R50.9 Fever, unspecified (principal); R07.89 Other chest pain; Z79.899 Other long term (current) drug therapy; Z20.822 Contact with and (suspected) exposure to COVID-19; Z20.828 Contact with and (suspected) exposure to other viral communicable diseases
CPT/HCPCS: 0241U; 71045; 80053; 81001; 83605; 85025; 87040; 96361; 96365; 96366; 96375; 99284; J2185; J3370

== ENCOUNTER 2023-09-22 16:39 | Inpatient (IN) | payer MEDICAID, SELFPAY ==
--- NOTE | 2023-09-22 | ECG_ITS ---
Test Reason : FEVER Blood Pressure : / mmHG Vent. Rate : 093 BPM Atrial Rate : 093 BPM P-R Int : 140 ms QRS Dur : 082 ms QT Int : 378 ms P-R-T Axes : 057 006 065 degrees QTc Int : 469 ms Normal sinus rhythm Normal ECG When compared with ECG of 04-JUN-2023 11:40, No significant change was found Referred By: Harris Chris Electronically Signed By:NOAH SILVA
--- NOTE | ~2023-09-22 | XR_ITS ---
EXAMINATION: XR CHEST CLINICAL INFORMATION: Fever. COMPARISON: Chest radiograph 07/28/2023. TECHNIQUE: AP view of the chest was obtained. FINDINGS: Midline tracheostomy tube. Normal heart size. Unchanged central vasculature prominence. No new focal airspace opacities. No evidence of pulmonary edema. No pleural effusion or pneumothorax. No acute osseous findings. Visualized upper abdomen is within normal limits. XR/XR chest 1V IMPRESSION: No significant change compared to 07/28/2023.
--- NOTE | ~2023-09-22 | XR_ITS ---
EXAMINATION: XR KNEE, LEFT CLINICAL INFORMATION: Pain. COMPARISON: None available. TECHNIQUE: Single view of the left knee. FINDINGS: Very limited single lateral projection with suboptimal positioning as the knee joint is partially flexed. Accounting for this limitation, no significant soft tissue abnormality or joint effusion are seen. No unexpected radiopaque foreign bodies. No discrete displaced fractures or dislocation. XR/XR knee LT 2V IMPRESSION: Extremely limited examination without discrete acute abnormality. Evaluation with additional views or correlation with CT as clinically warranted.
[2023-09-22 16:58] VITALS: BP 112/78; PULSE 90; RESP 16; TEMP 37.7; O2SAT 99; BMI 22.3
--- OUTSIDE RECORDS SUMMARY | 2023-09-22 17:22 | XMS_ITS | Continuity of Care Document ---
Author Name Unknown Organization [facility] ter Address [address] [place] [id number] Care Team Providers Care Bioinformatics Scientist Name Role Phone Elder Sara MAHMOOD Primary Care Physicia n [place] [facility] [place] [id number] Date(s): 05/14/21 - 05/14/[address] [address]- Discharge Disposition: A-D/C Home Attending Physician: Jazmín Claire MD Admitting Physician: Jazmín Claire MD Referring Physician: Not on Staff, Referring MD Allergies, Adverse Reactions, Alerts Substance Reaction Severity Status NKA Active Medications Bactrim DS 800 mg-160 mg oral tablet 1 tablet, By Mouth, 2 times a day, Maintenance, 05/14/21 20:33:00 EDT, Tablet, Partial fill upon patient request if the prescription is for a schedule II opioid drug. Start Date: 05/14/21 Status: Ordered Citrate of Magnesia 8.85% oral liquid 1 dose, By Mouth, Once, PRN Constipation, Maintenance, 05/14/21 20:36:00 EDT, Liquid, Partial fill upon patient request if the prescription is for a schedule II opioid drug. Start Date: 05/14/21 Status: Ordered Cyanocobalamin = 1,000 mcg, Intramuscular, Every Tuesday, Maintenance, 05/14/21 20:37:00 EDT, Partial fill upon patient request if the prescription is for a schedule II opioid drug. Start Date: 05/14/21 Status: Ordered Dulcolax 10 mg rectal suppository 1 supp = 10 mg, Rectally, Daily, PRN as needed for constipation, Maintenance, 05/14/21 20:36:00 EDT, Suppository, Partial fill upon patient request if the prescription is for a schedule II opioid drug. Start Date: 05/14/21 Status: Ordered famotidine 20 mg oral tablet 20 mg, 1, tablet, By Mouth, 2 times a day, Maintenance, 05/14/21 20:38:00 EDT, Partial fill upon patient request if the prescription is for a schedule II opioid drug. Start Date: 05/14/21 Status: Ordered Fleet Enema 19 gm-7 gm rectal enema 1 each, Rectally, Once, PRN for constipation, Maintenance, 05/14/21 20:38:00 EDT, Enema, Partial fill upon patient request if the prescription is for a schedule II opioid drug. Start Date: 05/14/21 Status: Ordered Guaifenesin = 200 mg, By Mouth, Every 8 hours, PRN Cough and Congestion, Maintenance, 05/14/21 20:39:00 EDT, Partial fill upon patient request if the prescription is for a schedule II opioid drug. Start Date: 05/14/21 Status: Ordered heparin 5000 u/ml injectable solution = 5,000 units, Subcutaneous Infusion, Every 8 hours, Maintenance, 05/14/21 20:40:00 EDT, Partial fill upon patient request if the prescription is for a schedule II opioid drug. Start Date: 05/14/21 Status: Ordered levETIRAcetam = 1,000 mg, By Mouth, 2 times a day, Maintenance, 05/14/21 20:41:00 EDT, Partial fill upon patient request if the prescription is for a schedule II opioid drug. Start Date: 05/14/21 Status: Ordered Milk of Magnesia 8% oral suspension 30 mL = 2.4 Gm, By Mouth, Daily, PRN for constipation, Maintenance, 05/14/21 20:42:00 EDT, Suspension, Partial fill upon patient request if the prescription is for a schedule II opioid drug. Start Date: 05/14/21 Status: Ordered MiraLax oral powder for reconstitution = 17 Gm, By Mouth, Daily, PRN Constipation, dissolve in water before taking, Maintenance, 05/14/21 20:42:00 EDT, REC Powder, Partial fill upon patient request if the prescription is for a schedule IIopioid drug. Start Date: 05/14/21 Status: Ordered Narcan 4 mg/0.1 mL nasal spray = 4 mg, Once, PRN opioid overdose, may repeat, Maintenance, 05/14/21 20:46:00 EDT, Partial fill upon patient request if the prescription is for a schedule II opioid drug. Start Date: 05/14/21 Status: Ordered ondansetron 4 mg oral tablet 1 tablet = 4 mg, PEG, Every 6 hours, PRN Nausea & Vomiting, Maintenance, 05/14/21 20:45:00 EDT,Tablet, Partial fill upon patient request if the prescription is for a schedule II opioid drug. Start Date: 05/14/21 Status: Ordered valACYclovir 500 mg oral tablet 500 mg, 1, tablet, By Mouth, 2 times a day, Maintenance, 05/14/21 20:44:00 EDT, Partial fill upon patient request if the prescription is for a schedule II opioid drug. Start Date: 05/14/21 Status: Ordered zinc oxide 10% topical ointment Apply, Topically, 2 times a day, Maintenance, 05/14/21 20:43:00 EDT, Partial fill upon patient request if the prescription is for a schedule II opioid drug. Start Date: 05/14/21 Status: Ordered Results Radiology Reports * Exam Date Time Procedure Performing Provider Status 05/14/21 3:08 PM Abdomen Comp Inc Dec ub and/or Erect July Corrigna; Auth (Verified) Notes: (Abdomen Comp Inc Decub and/or Erect) Reason For Exam: Localization Films RESULT: Abdomen Comp Inc Decub and/or Erect Abdomen series AP supine and crosstable lateral INDICATION/CLINICAL QUESTION: G-tube placement . COMPARISON: None FINDINGS: 20 cc Isovue-[address] injected [address] Dr[address] Claire. Contrast opacified the stomach, duodenum and proximal jejunum. No peritoneal contamination. No ventral contrast opacification but the retention device is probably adequately positioned in thegastric lumen. Normal gas pattern. No bone lesions. IMPRESSION: G-tube adequately positioned. WSN: [id number] Ordering Physician: Jazmín Claire Dictated By: Sukhdeep Miranda MD Dictated Date/Time: 05/14/21 3:25 pm Reviewed By: Sukhdeep Miranda MD Signed By: Sukhdeep Miranda MD Signed Date/Time: 05/14/21 3:25 pm Transcribed By: RENETTA Transcribed Date/Time: 05/14/21 3:24 pm Vital Signs Most recent to oldest [Reference Range]: 1 2 3 Oxygen Saturation [94-100 %] 100 % (05/14/21 6:59 PM) 99 % (05/14/21 4:50 PM) 99 % (05/14/21 2:50 PM) Pulse Rate [55-90 bpm] 72 bpm (05/14/21 6:59 PM) 71 bpm (05/14/21 4:50 PM) 76 bpm (05/14/21 2:50 PM) Blood Pressure [90-138/55-84 mm Hg] 110/66mm Hg (05/14/21 6:59 PM) 91/58mm Hg (05/14/21 4:50 PM) 105/64mm Hg (05/14/21 2:50 PM) Respiratory Rate [16-30 br/min] 16 br/min (05/14/21 6:59 PM) 16 br/min (05/14/21 4:50 PM) 16 br/min (05/14/21 2:50 PM) Temperature [96.8-100.4 DegF] 98.2 DegF (05/14/21 6:59 PM) 98.8 DegF (05/14/21 4:50 PM) 98.1 DegF (05/14/21 2:50 PM) Mode of Delivery (Oxygen) Room air (05/14/21 6:59 PM) Room air (05/14/21 4:50 PM) Room air (05/14/21 2:50 PM) Blood pressure sites Arm, right (05/14/21 6:59 PM) Arm, right (05/14/21 4:50 PM) Arm, right (05/14/21 2:50 PM) Temperature Route Oral (05/14/21 6:59 PM) Oral (05/14/21 4:50 PM) Oral (05/14/21 2:50 PM)
--- OUTSIDE RECORDS SUMMARY | 2023-09-22 17:22 | XMS_ITS | Continuity of Care Document ---
Author Name Unknown Organization [facility] ter Address [address] [place] [id number]- Care Team Providers Care Powder Hand Name Role Phone Elder Sara MAHMOOD Primary Care Physicia n Encounter [facility] [place] Date(s[place] 12/10/20 - 12/10/[address] [address]- Encounter Diagnosis Bacteremia(Final) - 12/10/20 Discharge Disposition: Transferred to short-term general hospit Attending Physician: Alison Chandler MD Admitting Physician: Alison Chandler MD Referring Physician: Not on Staff, Referring MD Allergies, Adverse Reactions, Alerts Substance Reaction Severity Status NKA Active Results Radiology Reports * Exam Date Time Procedure Performing Provider Status 12/10/20 12:31 PM Chest Portable Ximena Michel; Netta (Verified) Notes: (Chest Portable) Reason For Exam: Fever RESULT: Chest Portable Chest Portable Hx of Present Illness: ? Sepsis; Reason: Fever; Clinical Question(s): Pneumonia COMPARISON: None. FINDINGS: LINES AND TUBES: None. LUNGS AND PLEURA: Low lung volumes with bronchovascular crowding. No consolidative pneumonia. No pleural effusion. No pneumothorax. HEART, MEDIASTINUM AND FARIDA: Heart is normal in size. Normal upper mediastinal and hilar contour. BONES AND SOFT TISSUES: No acute abnormality. IMPRESSION: Low lung volumes with bronchovascular crowding. No consolidative pneumonia. WSN: [id number] Ordering Physician: Chaitanya Ward Dictated By: Talat Dempsey MD Dictated Date/Time: 12/10/20 12:38 p Reviewed By: Talat Dempsey MD Signed By: Talat Dempsey MD Signed Date/Time: 12/10/20 12:38 pm Transcribed By: CSLuz Maria Transcribed Date/Time: 12/10/20 12:37 pm Vital Signs Most recent to oldest [Reference Range]: 1 2 3 Oxygen Saturation [94-100 %] 97 % (12/10/20 6:03 PM) 97 % (12/10/20 5:15 PM) 100 % (12/10/20 3:35 PM) Pulse Rate [55-90 bpm] 105 bpm *H* (12/10/20 6:03 PM) 113 bpm *H* (12/10/20 5:15 PM) 110 bpm *H* (12/10/20 3:35 PM) Blood Pressure [90-138/55-84 mm Hg] 105/51mm Hg (12/10/20 6:03 PM) 101/64mm Hg (12/10/20 5:15 PM) 119/66mm Hg (12/10/20 3:35 PM) Respiratory Rate [16-30 br/min] 19 br/min (12/10/20 6:03 PM) 19 br/min (12/10/20 5:15 PM) 19 br/min (12/10/20 3:35 PM) Temperature [96.8-100.4 DegF] 100.4 DegF (12/10/20 7:15 PM) 101.3 DegF *H* (12/10/20 6:34 PM) 102.2 DegF *H* (12/10/20 6:03 PM) Mode of Delivery (Oxygen) Room air (12/10/20 6:03 PM) Room air (12/10/20 5:15 PM) Room air (12/10/20 3:35 PM) Blood pressure sites Arm, left (12/10/20 6:03 PM) Arm, left (12/10/20 5:15 PM) Arm, left (12/10/20 3:35 PM) Temperature Route Core (12/10/20 7:15 PM) Core (12/10/20 6:34 PM) Core (12/10/20 6:03 PM)
--- OUTSIDE RECORDS SUMMARY | 2023-09-22 17:23 | XMS_ITS | Continuity of Care Document ---
Author Name Unknown Organization [facility] Address [address] [place] [id number]- Care Team Providers Care Shop Manager Name Role Phone Lynn Anne MD, Nenita Hudson Primary Care Physici an [place] [facility] [place] 06/10/[address] [address]- Encounter Diagnosis PEG tube malfunction(Final) - 06/10/21 Discharge Disposition: A-D/C Home Attending Physician: David Serrano MD Admitting Physician: David Serarno MD Referring Physician: Not on Staff, Referring MD Allergies, Adverse Reactions, Alerts Substance Reaction Severity Status NKA Active Medications amLODIPine 5 mg oral tablet 5 mg, 1, tablet, By Mouth, Daily, # 30 tablet, Refills 0, Maintenance, 11/06/19 11:40:00 EDT Start Date: 11/06/19 Status: Ordered Clonazepam By Mouth, 3 times a day, 0 Refills, Maintenance, 11/06/19 11:40:00 EDT Start Date: 11/06/19 Status: Ordered cyclobenzaprine 10 mg oral tablet 10 mg, 1, tablet, By Mouth, 3 times a day, PRN, # 30 tablet, Refills 0, Maintenance, for spasm, 11/06/19 11:39:00 EDT Start Date: 11/06/19 Status: Ordered gabapentin 300 mg oral capsule 300 mg, 1, capsule, By Mouth, 3 times a day, # 90 capsule, Refills 0, Maintenance, 11/06/19 11:40:00 EDT Start Date: 11/06/19 Status: Ordered Lasix 20 mg oral tablet 1, capsule, By Mouth, Once, # 1 tablet, Refills 0, Maintenance, 11/06/19 11:39:00 EDT Start Date: 11/06/19 Status: Ordered losartan 50 mg oral tablet 50 mg, 1, tablet, By Mouth, Daily, # 30 tablet, Refills 0, Maintenance, 11/06/19 11:39:00 EDT Start Date: 11/06/19 Status: Ordered mirtazapine 15 mg oral tablet 1 tablet = 15 mg, By Mouth, Daily at bedtime, # 30 tablet, 0 Refills, Maintenance, 11/06/19 11:40:00 EDT, Tablet Start Date: 11/06/19 Status: Ordered nabumetone 750 mg oral tablet 1 tablet = 750 mg, By Mouth, 2 times a day, # 60 tablet, 0 Refills, Maintenance, 11/06/19 11:39:00 EDT, Tablet Start Date: 11/06/19 Status: Ordered Results Radiology Reports * Exam Date Time Procedure Performing Provider Status 06/10/21 4:44 PM Abdomen Comp Inc Dec ub and/or Erect Raegan Danielson; Auth (Verified) Notes: (Abdomen Comp Inc Decub and/or Erect) Reason For Exam: Localization Films RESULT: Abdomen Comp Inc Decub and/or Erect Abdomen Comp Inc Decub and/or Erect INDICATION/CLINICAL QUESTION: Localization Films; Confirm G-tube Placement; Special Instructions: Contrast via GT. COMPARISON: None FINDINGS: Oral contrast material injected by Tammy Tesfaye. Frontal and lateral views of the abdomen. G-tube appears appropriately positioned in the body the stomach along the anterior abdominal wall. There is no contrast extravasation. Bowel gas pattern is nonspecific. Colon is moderately stool-filled. Osseous structures largely unremarkable. IMPRESSION: G-tube appears in appropriate position. WSN: [id number] Ordering Physician: Harris Perry Dictated By: Jose Angel Leiva MD Dictated Date/Time: 06/10/21 4:52 pm Reviewed By: Jose Angel Leiva MD Signed By: Jose Angel Leiva MD Signed Date/Time: 06/10/21 4:52 pm Transcribed By: RENETTA Transcribed Date/Time: 06/10/21 4:48 pm Vital Signs Most recent to oldest [Reference Range]: 1 2 Oxygen Saturation [94-100 %] 100 % (06/10/21 11:16 AM) 100 % (06/10/21 10:48 AM) Pulse Rate [55-90 bpm] 68 bpm (06/10/21 11:16 AM) 75 bpm (06/10/21 10:48 AM) Blood Pressure [90-138/55-84 mm Hg] 100/ 68mm Hg (06/10/21 11:16 AM) 90/73mm Hg (06/10/21 10:48 AM) Respiratory Rate [16-30 br/min] 16 br/mi n (06/10/21 11:16 AM) 16 br/min (06/10/21 10:48 AM) Temperature [96.8-100.4 DegF] 97.0 DegF (06/10/21 10:48 AM) Mode of Delivery (Oxygen) Room air (06/10/21 11:16 AM) Room air (06/10/21 10:48 AM) Temperature Route Oral (06/10/21 10:48 AM)
--- OUTSIDE RECORDS SUMMARY | 2023-09-22 17:23 | XMS_ITS | Continuity of Care Document ---
Author Name Unknown Organization [facility] Address [address] [place] [id number]- Care Team Providers Care Product Tester [employer]erg[employer] Name Role Phone Lynn Anne MD, Nenita Hudson Primary Care Physici an [place] [facility] [place]s): 11/06/19 - 11/16/19 [facility] [address] [place] [phone] [facility] Attending Physician: Jameson Costa Admitting Physician: AdmtrJameson Referring Physician: Admtr, ArDemetri Allergies, Adverse Reactions, Alerts Substance Reaction Severity [...]
--- OUTSIDE RECORDS SUMMARY | 2023-09-22 17:23 | XMS_ITS | Continuity of Care Document ---
Author Name Unknown Organization [facility] ter Address [address] [place] [id number] Care Team Providers Care Manager Title Name Role Phone Lynn Anne MD, Nenita Hudson Primary Care Physici an Encounter [facility] [place] Date(s): 10/20/22 - 12/13/[address] [id number]- Discharge Disposition: Transferred to short-term general hospit Attending Physician: Kirill Santiago MD Admitting Physician: Smita Stewart DO Referring Physician: Not on Staff, Referring MD Allergies, Adverse Reactions, Alerts No Known Allergies Immunizations Given and Recorded Vaccine Date Status Refusal Reason influenza virus vaccine, inactivated 09/27/22 Patrice rded Medications albuterol 0.083% inhalation solution 3 mL = 2.5 mg, Neb, Every 6 hours, PRN Wheezing/Shortness of Breath, 0 Refills, Maintenance, 10/20/22 16:35:00 EST, Partial fill upon patient request if the prescription is for a schedule II opioid drug. Start Date: 10/20/22 Status: Ordered ascorbic acid 250 mg oral tablet 1 tablet = 250 mg, G Tube, Daily, # 30 tablet, 0 Refills, Maintenance, 10/20/22 15:07:00 EST, Tablet, Partial fill upon patient request if the prescription is for a schedule II opioid drug. Start Date: 10/20/22 Status: Ordered betamethasone topical dipropionate 0.05% ointment 1 application, Topically, Daily, # 15 Gm, 0 Refills, Maintenance, 10/20/22 15:08:00 EST, Ointment, Partial fill upon patient request if the prescription is for a schedule II opioid drug. Start Date: 10/20/22 Status: Ordered Chlorhexidine 0.12% Liquid 15 mL, By Mouth, 2 times a day, 0 Refills, Maintenance Start Date: 10/20/22 Status: Ordered cholecalciferol 50,000 intl units oral capsule 1 capsule = 1,250 mcg, G Tube, Every 30 days, monthly on the , # 12 capsule, 0 Refills, Maintenance, 10/20/22 15:09:00 EST, Capsule, Partial fill upon patient request if the prescription is for aschedule II opioid drug. Start Date: 10/20/22 Status: Ordered collagenase topical 250 u/gm ointment 1 application, Topically, 2 times a day, # 15 Gm, 0 Refills, Maintenance, 10/20/22 15:09:00 EST, Ointment, Partial fill upon patient request if the prescription is for a schedule II opioid drug. Start Date: 10/20/22 Status: Ordered docusate-senna 50 mg-8.6 mg oral capsule 1 capsule, G Tube, 2 times a day, 0 Refills, Maintenance, 10/20/22 15:17:00 EST, Capsule, Partial fill upon patient request if the prescription is for a schedule II opioid drug. Start Date: 10/20/22 Status: Ordered doxazosin 1 mg oral tablet 1 mg, 1, tablet, G Tube, Daily, # 30 tablet, Refills 0, Maintenance, 10/20/22 15:09:00 EST, Partialfill upon patient request if the prescription is for a schedule II opioid drug. Start Date: 10/20/22 Status: Ordered doxazosin 1 mg oral tablet 1 mg, Tablet, G Tube, 12/13/22 9:00:00 EDT Start Date: 12/13/22 Stop Date: 12/13/22 Status: Completed Dulcolax 10 mg rectal suppository 1 supp = 10 mg, Rectally, Daily, PRN as needed for constipation, 0 Refills, Maintenance, 10/20/22 16:35:00 EST, Partial fill upon patient request if the prescription is for a schedule II opioid drug. Start Date: 10/20/22 Status: Ordered ferrous sulfate 300 mg/5 ml oral liquid 5 mL = 300 mg, G Tube, Daily, # 450 mL, 0 Refills, Maintenance, 10/20/22 15:11:00 EST, Liquid, Partial fill upon patient request if the prescription is for a schedule II opioid drug. Start Date: 10/20/22 Status: Ordered finasteride 5 mg oral tablet 1 tablet = 5 mg, G Tube, Daily, # 30 tablet, 0 Refills, Maintenance, 10/20/22 15:12:00 EST, Tablet,Partial fill upon patient request if the prescription is for a schedule II opioid drug. Start Date: 10/20/22 Status: Ordered Fleet Enema 19 gm-7 gm rectal enema 133 mL, Rectally, Once, PRN as needed for constipation, 0 Refills, Maintenance, 10/20/22 16:35:00 EST, Partial fill upon patient request if the prescription is for a schedule II opioid drug. Start Date: 10/20/22 Status: Ordered glycopyrrolate 1 mg oral tablet 1 mg, 1, tablet, G Tube, Every 8 hours, # 30 tablet, Refills 0, Maintenance, 10/20/22 15:13:00 EST,Partial fill upon patient request if the prescription is for a schedule II opioid drug. Start Date: 10/20/22 Stop Date: 10/30/22 Status: Ordered Guaifenesin 10 mL, G Tube, Every 4 hours, PRN Cough, 200mg/10ml, 0 Refills, Maintenance, 10/20/22 16:36:00 EST,Partial fill upon patient request if the prescription is for a schedule II opioid drug. Start Date: 10/20/22 Status: Ordered lacosamide 200 mg oral tablet 1 tablet = 200 mg, G Tube, Every 12 hours, 0 Refills, Maintenance, 10/20/22 15:13:00 EST, Tablet, Partial fill upon patient request if the prescription is for a schedule II opioid drug. Start Date: 10/20/22 Status: Ordered lactobacillus acidophilus oral capsule 1 capsule, G Tube, Every 12 hours, 0 Refills, Maintenance, 10/20/22 15:14:00 EST, Partial fill uponpatient request if the prescription is for a schedule II opioid drug. Start Date: 10/20/22 Status: Ordered loperamide 2 mg oral capsule 2 mg, 1, capsule, G Tube, Every 4 hours, PRN, Refills 0, Maintenance, as needed for loose stool, 10/20/22 16:37:00 EST, Partial fill upon patient request if the prescription is for a schedule II opioid drug. Start Date: 10/20/22 Status: Ordered Lorazepam 2 mg/ml injectable = 2 mg, Intramuscular, Once, PRN Seizure Activity, 0 Refills, Maintenance, 10/20/22 16:23:00 EST, Partial fill upon patient request if the prescription is for a schedule II opioid drug. Start Date: 10/20/22 Status: Ordered melatonin 3 mg oral tablet 1 tablet = 3 mg, G Tube, Daily at bedtime, # 30 tablet, 0 Refills, Maintenance, 10/20/22 15:15:00 EST, Partial fill upon patient request if the prescription is for a schedule II opioid drug. Start Date: 10/20/22 Status: Ordered midodrine 5 mg oral tablet 7.5 mg, 1.5, tablet, G Tube, Every 8 hours, # 180 tablet, Refills 0, Maintenance, 10/20/22 15:15:00EST, Partial fill upon patient request if the prescription is for a schedule II opioid drug. Start Date: 10/20/22 Status: Ordered midodrine 5 mg oral tablet 7.5 mg, Tablet, G Tube, Hold for: SBP >100, 12/13/22 8:00:00 EDT Start Date: 12/13/22 Stop Date: 12/13/22 Status: Completed Milk of Magnesia Liquid 30 mL, G Tube, Daily, PRN as needed for constipation, 0 Refills, Maintenance, 10/20/22 16:37:00 EST, Partial fill upon patient request if the prescription is for a schedule II opioid drug. Start Date: 10/20/22 Status: Ordered morphine 10 mg/5 mL oral solution 2.5 mL = 5 mg, G Tube, Every 6 hours, PRN Pain , Severe, 0 Refills, Maintenance, 10/20/22 16:38:00 EST, Partial fill upon patient request if the prescription is for a schedule II opioid drug. Start Date: 10/20/22 Status: Ordered omeprazole 2mg/1 mL suspension (compounded) 10 mL = 20 mg, G Tube, Daily, Compound a concentration of 2 mg/mL suspension; open 20 of 20 mg capsules; crush; add 200 mL sodium bicarbonate 8.4%; Final volume 200 mL. Auxiliary labels: Refrigerate;Shake Well. Expiration: 45 days, mL, 0 Refills, Barbi... Start Date: 10/20/22 Status: Ordered ondansetron 2 mg/mL injectable solution = 4 mg, Intramuscular, Every 4 hours, PRN as needed for nausea/vomiting, 0 Refills, Maintenance, 10/20/22 16:40:00 EST, Partial fill upon patient request if the prescription is for a schedule II opioid drug. Start Date: 10/20/22 Status: Ordered ondansetron 4 mg oral tablet 1 tablet = 4 mg, G Tube, Every 4 hours, PRN Nausea & Vomiting, 0 Refills, Maintenance, 10/21/2315:39:00 EST, Partial fill upon patient request if the prescription is for a schedule II opioid drug. Start Date: 10/20/22 Status: Ordered oxyCODONE 5 mg oral tablet 5 mg, 1, tablet, G Tube, Every 6 hours, PRN, Refills 0, Tot. Refills 0, Maintenance, Pain , Moderate, 10/20/22 16:40:00 EST, Partial fill upon patient request if the prescription is for a schedule IIopioid drug. Start Date: 10/20/22 Status: Ordered scopolamine 1 mg/72 hr transdermal film, extended release 1 film, Topically, Every 72 hours, 0 Refills, Maintenance, 10/20/22 15:17:00 EST, Partial fill uponpatient request if the prescription is for a schedule II opioid drug. Start Date: 10/20/22 Status: Ordered Sulfamethoxazole 800mg/Trimethoprim 160 mg Tablet 1, tablet, G Tube, Daily at bedtime, Maintenance, 12/13/22 8:11:00 EDT Start Date: 12/13/22 Status: Ordered Tylenol 325 mg oral tablet 650 mg, 2, tablet, G Tube, Every 4 hours, PRN, Refills 0, Maintenance, Mild Pain/Fever, 10/20/22 16:34:00 EST, Partial fill upon patient request if the prescription is for a schedule II opioid drug. Start Date: 10/20/22 Status: Ordered Tylenol Supp 650 mg, Rectally, Every 4 hours, PRN, Refills 0, Maintenance, Mild Pain/Fever, 10/20/22 16:34:00 EST, Partial fill upon patient request if the prescription is for a schedule II opioid drug. Start Date: 10/20/22 Status: Ordered zinc sulfate 220 mg oral capsule 220 mg, 1, capsule, G Tube, Daily at bedtime, Refills 0, Maintenance, 10/20/22 15:17:00 EST, Partial fill upon patient request if the prescription is for a schedule II opioid drug. Start Date: 10/20/22 Status: Ordered Results Orders for Microbiology Reports Name Date Sputum Culture w/ Gram Smear (Culture Sp utum w/ Gram Smear) 11/27/22 Sputum Culture w/ Gram Smear 11/19/22 Blood Culture 11/19/22 Blood Culture #2 11/19/22 Blood Culture 11/12/22 Blood Culture #2 11/12/22 Lower Resp Tract Culture w/ Gram Smear Sputum Culture w/ Gram Smear 10/29/22 Sputum Culture w/ Gram Smear (Culture Sp utum w/ Gram Smear) 10/23/22 Blood Culture 10/22/22 Microbiology Reports (Most Recent Ten) TEST:Sputum Culture STATUS:Auth (Verified) BODY SITE: SOURCE:SUCTIO COLLECTED DATE/TIME:11/27/22 10:45 AM Sputum Culture SPECIMEN DESCRIPTION : SUCTIONED SPUTUM SPECIAL REQUESTS : NONE GRAM STAIN : 2+ GRAM POSITIVE COCCI 2+ GRAM POSITIVE RODS 1+ GRAM NEGATIVE RODS CULTURE : 3+ NORMAL REBECCA REPORT STATUS : FINAL 11/29/2022 TEST:Sputum Culture STATUS:Auth (Verified) BODY SITE: SOURCE:ENDOTR COLLECTED DATE/TIME:11/19/22 9:50 PM Sputum Culture SPECIMEN DESCRIPTION : ENDOTRACHEAL ASPIRATE SPECIAL REQUESTS : NONE GRAM STAIN : 4+ POLYMORPHONUCLEAR LEUKOCYTES 4+ SQ.EPITHELIAL CELLS 4+ GRAM POSITIVE RODS 2+ GRAM NEGATIVE RODS 1+ GRAM POSITIVE COCCI CULTURE : 4+ PSEUDOMONAS AERUGINOSA This isolate was identified using Maldi-TOF system These AST results were performed on the 27 [employer] ID and AST system 3+ NORMAL REBECCA REPORT STATUS : FINAL 11/24/2022 ORGANISM 4+ PSEUDOMONAS AERUGINOSA This isolate was identified using Maldi-TOF system These AST results were performed on the Microscan ID and AST system METHOD MIN. INHIB. CONC. (MCG/ML) CEFEPIME INTERMEDIATE CEFTAZIDIME RESISTANT CIPROFLOXACIN SUSCEPTIBLE GENTAMICIN SUSCEPTIBLE LEVOFLOXACIN SUSCEPTIBLE MEROPENEM SUSCEPTIBLE PIPERACILLIN/TAZOBAC SUSCEPTIBLE TEST:Blood Culture STATUS:Auth (Verified) BODY SITE: SOURCE:Blood COLLECTED DATE/TIME:11/19/22 9:48 PM Blood Culture SPECIMEN DESCRIPTION : BLOOD NO SITE SPECIAL REQUESTS : NONE CULTURE : NO GROWTH 5 DAYS. REPORT STATUS : FINAL 11/25/2022 TEST:Blood Culture, Second Order STATUS:Auth (Verified) BODY SITE: SOURCE:Blood COLLECTED DATE/TIME:11/19/22 9:48 PM Blood Culture, Second Order SPECIMEN DESCRIPTION : BLOOD NO SITE SPECIAL REQUESTS : NONE CULTURE : NO GROWTH 5 DAYS. REPORT STATUS : FINAL 11/25/2022 TEST:Blood Culture STATUS:Auth (Verified) BODY SITE: SOURCE:Blood COLLECTED DATE/TIME:11/12/22 3:28 PM Blood Culture SPECIMEN DESCRIPTION : BLOOD LEFT HAND SPECIAL REQUESTS : NONE CULTURE : NO GROWTH 5 DAYS. REPORT STATUS : FINAL 11/17/2022 TEST:Blood Culture, Second Order STATUS:Auth (Verified) BODY SITE: SOURCE:Blood COLLECTED DATE/TIME:11/12/22 3:28 PM Blood Culture, Second Order SPECIMEN DESCRIPTION : BLOOD R HAND SPECIAL REQUESTS : NONE CULTURE : NO GROWTH 5 DAYS. REPORT STATUS : FINAL 11/17/2022 TEST:Lower Respiratory Tract Culture STATUS:Auth (Verified) BODY SITE: SOURCE:BRONCH COLLECTED DATE/TIME:11/10/22 4:01 PM Lower Respiratory Tract Culture SPECIMEN DESCRIPTION : BRONCH. WASH, LEFT LUNGL SPECIAL REQUESTS : NONE GRAM STAIN : 2+ POLYMORPHONUCLEAR LEUKOCYTES 3+ GRAM NEGATIVE RODS 2+ GRAM POSITIVE COCCI 1+ GRAM POSITIVE RODS CULTURE : 50,000 CFU/ML MUCOID PSEUDOMONAS AERUGINOSA This isolate was identified using Maldi-TOF system These AST results were performed on the Lumific ID and AST system 50,000 CFU/ML NON MUCOID PSEUDOMONAS AERUGINOSA This isolate was identified using Maldi-TOF system These AST results were performed on the 27 [employer] ID and AST system 50,000 CFU/ML CORYNEBACTERIUM SPECIES SUSCEPTIBILITY TESTING NOT ROUTINELY PERFORMED ON THIS ISOLATE. This isolate was identified using Maldi-TOF system REPORT STATUS : FINAL 11/14/2022 ORGANISM 50,000 CFU/ML MUCOID PSEUDOMONAS AERUGINOSA This isolate was identified using Maldi-TOF system These AST results were performed on the Lumific ID and AST system METHOD MIN. INHIB. CONC. (MCG/ML) AMIKACIN INTERMEDIATE CEFEPIME SUSCEPTIBLE CEFTAZIDIME SUSCEPTIBLE CIPROFLOXACIN RESISTANT GENTAMICIN RESISTANT LEVOFLOXACIN RESISTANT MEROPENEM RESISTANT PIPERACILLIN/TAZOBAC INTERMEDIATE TOBRAMYCIN SUSCEPTIBLE ORGANISM 50,000 CFU/ML NON MUCOID PSEUDOMONAS AERUGINOSA This isolate was identified using Maldi-TOF system These AST results were performed on the Microscan ID and AST system METHOD MIN. INHIB. CONC. (MCG/ML) CEFEPIME SUSCEPTIBLE CEFTAZIDIME SUSCEPTIBLE CIPROFLOXACIN SUSCEPTIBLE GENTAMICIN SUSCEPTIBLE LEVOFLOXACIN SUSCEPTIBLE MEROPENEM SUSCEPTIBLE PIPERACILLIN/TAZOBAC SUSCEPTIBLE TEST:Sputum Culture STATUS:Auth (Verified) BODY SITE: SOURCE:ENDOTR COLLECTED DATE/TIME:10/29/22 5:38 AM Sputum Culture SPECIMEN DESCRIPTION : ENDOTRACHEAL ASPIRATE SPECIAL REQUESTS : NONE GRAM STAIN : 3+ GRAM NEGATIVE RODS 1+ GRAM POSITIVE COCCI 1+ GRAM POSITIVE RODS 3+ POLYMORPHONUCLEAR LEUKOCYTES 3+ SQ.EPITHELIAL CELLS CULTURE : 3+ PSEUDOMONAS AERUGINOSA This isolate was identified using Maldi-TOF system 2+ NORMAL REBECCA REPORT STATUS : FINAL 10/31/2022 ORGANISM 3+ PSEUDOMONAS AERUGINOSA This isolate was identified using Maldi-TOF system METHOD MIN. INHIB. CONC. (MCG/ML) CEFEPIME SUSCEPTIBLE CEFTAZIDIME SUSCEPTIBLE CIPROFLOXACIN RESISTANT GENTAMICIN SUSCEPTIBLE LEVOFLOXACIN RESISTANT MEROPENEM SUSCEPTIBLE PIPERACILLIN/TAZOBAC SUSCEPTIBLE TEST:Sputum Culture STATUS:Auth (Verified) BODY SITE: SOURCE:EXPECT COLLECTED DATE/TIME:10/23/22 9:17 AM Sputum Culture SPECIMEN DESCRIPTION : EXPECTORATED SPUTUM SPECIAL REQUESTS : NONE GRAM STAIN : 3+ SQ.EPITHELIAL CELLS 1+ GRAM POSITIVE RODS 1+ GRAM POSITIVE COCCI 1+ YEAST 1+ POLYMORPHONUCLEAR LEUKOCYTES CULTURE : MICROSCOPIC EXAM SHOWS SQUAMOUS EPITHELIAL CELLS INDICATIVE OF OROPHARYNGEAL CONTAMINATION. PLEASE RECOLLECT APPROPRIATE SPECIMEN FOR CULTURE IF CLINICALLY INDICATED. REPORT STATUS : FINAL 10/23/2022 TEST:Blood Culture STATUS:Auth (Verified) BODY SITE: SOURCE:Blood COLLECTED DATE/TIME:10/22/22 1:55 PM Blood Culture SPECIMEN DESCRIPTION : BLOOD NO SITE SPECIAL REQUESTS : NONE CULTURE : NO GROWTH 5 DAYS. REPORT STATUS : FINAL 10/27/2022 Radiology Reports * Exam Date Time Procedure Performing Provider Status 11/19/22 9:56 PM Chest Portable Ajay Warren (Verified) Notes: (Chest Portable) Reason For Exam: Fever RESULT: Chest Portable Chest Portable Reason: Fever; Clinical Question(s): Pneumonia COMPARISON: 11/11/2022 FINDINGS: LINES AND TUBES: Tracheostomy tube tip 5 cm above the edmund. LUNGS AND PLEURA: Subtle left base opacity. Possible pneumonia. Similar, likely worse findings seen on CT scan 10/20/2022. No pleural effusion. No pneumothorax. HEART, MEDIASTINUM AND ROBERT: Heart is normal in size. Normal mediastinal and hilar contour. BONES AND SOFT TISSUES: No acute abnormality. IMPRESSION: Mild residual left base opacity improved compared to CT scan 10/20/2022. WSN: [id number] Ordering Physician: Calin Franco Dictated By: Meir Agudelo MD Dictated Date/Time: 11/19/22 10:37 p Reviewed By: Meir Agudelo MD Signed By: Meir Agudelo MD Signed Date/Time: 11/19/22 10:37 pm Transcribed By: CSLuz Maria Transcribed Date/Time: 11/19/22 10:34 pm * Exam Date Time Procedure Performing Provider Status 11/16/22 10:[address] Ext Lower W/ Contrast Left Yamile Castro; Auth (Verified) Notes: (CT Ext Lower W/ Contrast Left) Reason For Exam: Infection;Infection RESULT: CT Ext Lower W/ Contrast Left CT Ext Lower W/ Contrast Left Reason: Infection; Clinical Question(s): Hip; TECHNIQUE: Helical CT with contrast formatted in 3 planes. 100 cc of Omnipaque 300 was administeredintravenously. Weight-based protocol using automatic tube modulation was used to optimize exposure parameters. CTDIvol Body: 6.60 mGy, DLP Body: 200 mGy*cm. COMPARISONS: PET/CT 06/09/2020. FINDINGS: Bones and joints: No fractures or focal osseous lesions are seen. There is contracture at the hips bilaterally. Soft Tissues: There is hyperdense material along a deep decubitus ulcer lateral to the greater trochanter, likely medicinal products. There is no evidence of a focal fluid collection. The decubitus extends towards the lesser trochanter, however does not appear to abut the cortex. There is an apparent Rubio catheter in place with a moderate amount of air in the urinary bladder. There is a rectal tube in place as well. IMPRESSION: No acute osseous abnormalities. No focal fluid collection or joint effusion to suggest an abscess or septic arthritis. Urinary bladder catheter with a moderate amount of air in the urinary bladder. Clinical and laboratory correlation for infection recommended. WSN: [id number] Ordering Physician: Hoa Ball Dictated By: Jose Angel Leiva MD Dictated Date/Time: 11/16/22 11:11 a Reviewed By: Jose Angel Leiva MD Signed By: Jose Angel Leiva MD Signed Date/Time: 11/16/22 11:11 am Transcribed By: RENETTA Transcribed Date/Time: 11/16/22 11:02 am * Exam Date Time Procedure Performing Provider Status 11/16/22 11:00 AM IR End of Case Report Aut h (Verified) IR End of Case Report * Exam Date Time Procedure Performing Provider Status 11/16/22 11:24 AM IR Replace G Tube or Cecostomy Tube Auth (Verified) Notes: (IR Replace G Tube or Cecostomy Tube) Reason For Exam: Other: IR Replace G Tube or Cecostomy Tube Patient: MARINO HALE Study Date: 11/16/2022 Performing: Omar Tucker PA-C Referring: : 1970 Age: 51 Gender: MALE Pre-procedure diagnosis and Indication: 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 Currently has a rubio catheter in place which was placed in the emergency department. Exam: Prior to the procedure, the patient was seen and the nature of the procedure explained along with its attendant risks and benefits to a family member over the phone . Informed consent was obtained from, a family member over the phone . The patient arrived in IR room 2 for a gastrostomy tube reinsertion PROCEDURE: The patient was positioned supine and secured with arm boards. The access site was draped in the usual clean fashion. . contrast injected into existing tube a wire was inserted and water removed from the old balloon 10 ml's and the existing tube was removed. and a 18 FR gastrostomy tube.was inserted the retention balloon was filled to a volume of 10 ml's of water . contrast injected to check placement of new tube . 18 FR gastrostomy tube . The sterile field was maintained throughout the procedure and patient tolerated the procedure well with no complications of the procedure estimated blood loss was minimal Specimens/samples: no specimens or samples were sent for this procedure Patient transferred to [address] Post procedure instructions sent in envelope with the patient Impression: Satisfactory fluoroscopically guided replacement of a gastrostomy tube patient tolerated the procedure well with no complications of the procedure Please Note:. Do not cut the any suture encircling the G-tube collar (if present). 1. The G-tube can be used now. 2. Please consult with nutrition service concerning starting g-tube feeds. 3. When initiating G-tube feeds have the patient in right side down decubitus. 4. Written instructions and other information concerning G-tubes were given to [ ] and/or also placed in the patients chart. These orders were entered into [facility].. 5. Please ensure that the white port on the hub of the catheter is used for balloon inflation and deflation only. This port should only be manipulated by an interventional radiologist. This should not be used for flushing or administration of feeds. 6. We recommend that G-tubes of this type be replaced at 3 month intervals to avoid inadvertent loss of access due to deterioration in the G-tube retention balloon material. We will make arrangements. TO PREVENT CLOGGING OF THE G-TUBE FLUSH VIGOROUSLY WITH 30ML OF WATER AFTER EACH FEEDING. WHENEVER POSSIBLE GIVE MEDICATIONS IN LIQUID FORM; IF SOLID MEDICATIONS ARE ABSOLUTELY REQUIRED HAVE THE MEDICATIONS GROUND TO A FINE PASTE (preferably by a compounding pharmacy) SUSPEND IN WATER AND FLUSH AFTER EACH DOSE. IF CLUMPS OF MEDICATION ARE SEEN IN THE SUSPENSION, RESUSPEND. Fluoroscopy time and dose Total Fluoro Time: 0.1 mins Total dose 1 mGy Total DAP 7.17 - ?Gy/m2 Contrast used Contrast used: Omnipaque_300 20 ml's Signed By Omar Tucker PA-C On 11/16/2022 11:29:09 Omar Tucker PA-C Dictated By: Omar Carty Dictated Date/Time: 11/16/22 11:00 a Reviewed By: Omar Carty Signed By: Omar Carty Signed Date/Time: 11/16/22 11:24 am Transcribed By: JULIA Transcribed Date/Time: 11/16/22 11:24 am * Exam Date Time Procedure Performing Provider Status 11/11/22 8:55 AM Chest Portable Romain Rodrigez; Netta (Verified) Notes: (Chest Portable) Reason For Exam: Shortness of Breath RESULT: Chest Portable Chest Portable semiupright at 8:30 AM Reason: Shortness of Breath; Clinical Question(s): Pneumonia COMPARISON: Multiple priors most recently 10/31/2022 FINDINGS: LINES AND TUBES: Tracheostomy tube remains in similar position. LUNGS AND PLEURA: There is once again seen asymmetric increased markings in the left lower hemithorax, there having been more semi confluent opacity here on study from 3 10/20/2022. Elsewhere lungs are clear. No vascular congestion. No pleural effusion. No pneumothorax. HEART, MEDIASTINUM AND ROBERT: Heart is normal in size. Normal mediastinal and hilar contour. BONES AND SOFT TISSUES: No acute abnormality. IMPRESSION: Persistent asymmetric increased markings in the left lower lobe, which could either represent residual scarring/fibrosis from the patient's more pronounced earlier pneumonia or ongoing inflammation here. WSN: [id number] Ordering Physician: Calin Franco Dictated By: Maximus Cortez MD Dictated Date/Time: 11/11/22 1:05 pm Reviewed By: Maximus Cortez MD Signed By: Maximus Cortez MD Signed Date/Time: 11/11/22 1:05 pm Transcribed By: RENETTA Transcribed Date/Time: 11/11/22 12:56 pm * Exam Date Time Procedure Performing Provider Status 10/31/22 1:37 AM Chest Portable Indiana Cobb; Auth (Verified) Notes: (Chest Portable) Reason For Exam: Increase oxygen requirement.;Other: RESULT: Chest Portable AP semiupright portable chest dated October 31, 2022 at 0122 hours. Comparison films are from October 28 and October 26, 2022. HISTORY: Increasing oxygen requirement. FINDINGS: The cardiac silhouette is within normal limits for size. Mural calcifications are presentin the aorta. A tracheostomy tube is present with its tip 7.4 cm proximal to the edmund. There is elevation of left diaphragm and opacity at the left lung base consistent with atelectasis or pneumonia. The right lung is clear. Degenerative changes are noted in the spine. IMPRESSION: Worsening infiltrate at the left lung base consistent with atelectasis or pneumonia. Improving aeration in the right upper lung. Examination [id number]. Thank you for allowing me to participate in the care of this patient. WSN: [id number] Ordering Physician: Alexa Vazquez Dictated By: José Miguel Paredes MD Dictated Date/Time: 10/31/22 10:00 a Reviewed By: José Miguel Paredes MD Signed By: José Miguel Paredes MD Signed Date/Time: 10/31/22 10:00 am Transcribed By: RENETTA Transcribed Date/Time: 10/31/22 10:00 am * Exam Date Time Procedure Performing Provider Status 10/28/22 11:16 PM Chest Portable Lorena Warren; Netta (Verified) Notes: (Chest Portable) Reason For Exam: Shortness of Breath RESULT: Chest Portable Chest Portable Reason: Shortness of Breath; Clinical Question(s): Pneumothorax COMPARISON: 10/26/2022 FINDINGS: LINES AND TUBES: Tracheostomy tube unchanged and appears in appropriate position. Multiple lines overlie the right chest. LUNGS AND PLEURA: Low lung volumes. Mild central hazy opacification and patchy opacities in the left lung base. No pleural effusion. No pneumothorax. HEART, MEDIASTINUM AND ROBERT: Heart is normal in size. Normal mediastinal and hilar contour. BONES AND SOFT TISSUES: No acute abnormality. IMPRESSION: Mild central hazy opacification may reflect edema. Patchy opacities in the left lower lobe unchanged and may reflect atelectasis or pneumonia. WSN: [id number] Ordering Physician: Calin Franco Dictated By: Talat Dempsey MD Dictated Date/Time: 10/28/22 11:28 p Reviewed By: Talat Dempsey MD Signed By: Talat Dempsey MD Signed Date/Time: 10/28/22 11:28 pm Transcribed By: RENETTA Transcribed Date/Time: 10/28/22 11:27 pm * Exam Date Time Procedure Performing Provider Status 10/26/22 12:30 PM Chest Portable Damon Calles; Auth (Verified) Notes: (Chest Portable) Reason For Exam: Shortness of Breath RESULT: Chest Portable Chest Portable Reason: Shortness of Breath; Clinical Question(s): Pneumonia COMPARISON: 10/20/2022 FINDINGS: LINES AND TUBES: Tracheostomy tube in expected position. LUNGS AND PLEURA: Mild hazy density in the left lung base, improved from 10/20/2022. Lungs are otherwise well-aerated and clear with normal vascularity. No pleural effusion. No pneumothorax. HEART, MEDIASTINUM AND ROBERT: Heart is normal in size. Normal mediastinal and hilar contour. BONES AND SOFT TISSUES: No acute abnormality. IMPRESSION: Interval improvement in atelectasis or infiltrate in the left lung base. Tracheostomy. WSN: [id number] Ordering Physician: Kenneth Shepard Dictated By: Romain Tanner MD Dictated Date/Time: 10/26/22 12:37 p Reviewed By: Romain Tanner MD Signed By: Romain Tanner MD Signed Date/Time: 10/26/22 12:37 pm Transcribed By: RENETTA Transcribed Date/Time: 10/26/22 12:35 pm * Exam Date Time Procedure Performing Provider Status 10/20/22 9:[address] Angio Chest Mirta Berry [facility] (Verified) Notes: (CT Angio Chest) Reason For Exam: PE suspected, Intermediate prob, positive D-dimer,;Other: RESULT: CT Angio Chest EXAMINATION: CT Angio Chest INDICATION: Reason: Other:; PE suspected, Intermediate prob, positive D-dimer,; Clinical Question(s): Pulmonary Embolism; Order Comment: TECHNIQUE: Spiral CTA of the chest was performed after rapid IV contrast administration without cardiac gating, triggered by an STEVEN on the main pulmonary artery. Images are formatted in multiple planes using 2-D multiplanar and 3-D maximum intensity projection. 50 cc of Omnipaque 300 was administered intravenously. Weight-based protocol using automatic tube modulation was used to optimize exposure parameters. CTDIvol Body: 4.94 mGy, DLP Body: 319 mGy*cm. COMPARISONS: None. ANGIOGRAPHIC FINDINGS: Evaluation is mildly limited by motion artifact. No pulmonary embolism to the subsegmental level. Normal caliber pulmonary arteries. No acute aortic abnormality seen on this study performed without cardiac gating. NON-ANGIOGRAPHIC FINDINGS: Prepress Technician View Findings, Lines and Tubes: None. Trachea and Airways: Patent without evidence of tracheal or endobronchial lesion. Lungs and Pleura: There is diffuse tree-in-bud type nodular opacity involving both lungs with areasof more confluent consolidation in the lower lobes. The appearance is most likely related to infectious process, though aspiration could produce this appearance. Small left effusion. Mediastinum and robert: No mass or hematoma. No mediastinal or hilar lymphadenopathy. No esophageal abnormality. Heart: Heart is normal in size. No pericardial effusion. Chest Wall Soft Tissues: Normal. Diaphragm and upper abdomen: No significant abnormality. Bones: No acute abnormality. IMPRESSION: No evidence of pulmonary embolism. Tree-in-bud appearance throughout both lungs with more confluent density in the posterior aspect ofboth lungs. Differential of infectious process versus aspiration. WSN: [id number] Ordering Physician: Harris Perry Dictated By: Meir Agudelo MD Dictated Date/Time: 10/20/22 9:32 pm Reviewed By: Meir Agudelo MD Signed By: Meir Agudelo MD Signed Date/Time: 10/20/22 9:32 pm Transcribed By: RENETTA Transcribed Date/Time: 10/20/22 9:29 pm * Exam Date Time Procedure Performing Provider Status 10/20/22 12:16 PM Chest Portable Kathy Hannah; Auth (Verified) Notes: (Chest Portable) Reason For Exam: Fever RESULT: Chest Portable Chest Portable HX OF PRESENT ILLNESS: Pt. coming from [facility]. Pt. having increased sputum from trach and desats on RA. Had mild fever for facility with hypotension in the 90's systolic. Pt. nonverbaland contracted at baseline; Reason: Fever; Clinical Question(s): Pneumonia / Pneumonia COMPARISON: 12/10/2020 FINDINGS: LINES AND TUBES: Tracheostomy tube in place. LUNGS AND PLEURA: Hazy airspace opacity in the left lower lobe with obscuration of the left hemidiaphragm. No pleural effusion. No pneumothorax. HEART, MEDIASTINUM AND ROBERT: Heart is normal in size. Normal mediastinal and hilar contour. BONES AND SOFT TISSUES: No acute abnormality. IMPRESSION: Findings concerning for left lower lobe pneumonia. WSN: [id number] Ordering Physician: Jia Mills Dictated By: Vahid Leroy MD Dictated Date/Time: 10/20/22 12:20 p Reviewed By: Vahid Leroy MD Signed By: Vahid Leroy MD Signed Date/Time: 10/20/22 12:20 pm Transcribed By: RENETTA Transcribed Date/Time: 10/20/22 12:20 pm Vital Signs Most recent to oldest [Reference Range]: 1 2 3 Height 183 cm (12/09/22 12:08 PM) 183 cm (12/09/22 8:06 AM) 183 cm (12/08/22 8:00 AM) Weight 56 kg (12/11/22 4:57 PM) 56 kg (12/09/22 10:00 AM) 96 kg (12/09/22 9:00 AM) Oxygen Saturation [94-100 %] 94 % (12/13/22 12:00 PM) 97 % (12/13/22 10:00 AM) 93 % *L* (12/13/22 9:00 AM) Pulse Rate [55-90 bpm] 88 bpm (12/13/22 12:00 PM) 91 bpm *H* (12/13/22 9:50 AM) 87 bpm (12/13/22 8:00 AM) Body Mass Index [18.5-24.99 kg/m2] 27.95 kg/m2 *H* (10/21/22 5:41 PM) Blood Pressure [90-138/55-84 mm Hg] 109/74mm Hg (12/13/22 12:00 PM) 121/77mm Hg (12/13/22 10:00 AM) 112/81mm Hg (12/13/22 9:51 AM) Respiratory Rate [16-30 br/min] 16 br/min (12/13/22 12:00 PM) 23 br/min (12/13/22 10:00 AM) 16 br/min (12/13/22 9:00 AM) Temperature [96.8-100.4 DegF] 98.8 DegF (12/13/22 12:00 PM) 98.7 DegF (12/13/22 8:00 AM) 97.8 DegF (12/13/22 4:00 AM) Liters per Minute 8 L/min (12/10/22 8:09 AM) 10 L/min (12/10/22 6:00 AM) 8 L/min (12/10/22 4:00 AM) Mode of Delivery (Oxygen) Trach mask (12/13/22 12:00 PM) T-Piece (12/13/22 8:00 AM) T-Piece (12/13/22 4:00 AM) Blood pressure sites Arm, left (12/13/22 12:00 PM) Arm, left (12/13/22 9:00 AM) Arm, left (12/13/22 6:00 AM) Temperature Route Temporal (12/13/22 12:00 PM) Temporal (12/13/22 8:00 AM) Axillary (12/13/22 4:00 AM) Dry Weight 96.6 kg (10/21/22 5:41 PM) Weight Obtained Via Bed scale (11/30/22 10:04 AM) Bed scale (11/24/22 9:59 AM) Bed scale (11/16/22 12:59 PM) Note * Kathy Robison RN: PERFORM Event Display: Discharge/Transfer Note Hospital Authored Date: [id number] Nursing Discharge Note Entered On: 12/13/2022 12:39 EDT Performed On: 12/13/2022 12:37 EDT by Kathy Robison RN Nursing Discharge Note 2 Discharge Time : 12/13/2022 12:37 EDT Discharge Level of Care at Discharge : snf facility Discharge Nursing Homes/Rehab Facilities : [facility] Patient Left Unit Via : Ambulance Patient Accompanied Off Unit with : Ambulance/Chair Van Personnel Handover Given to Transport Personnel : Yes DC Instructions Provided & Signed by Pt : Unable Patient Understands D/C Instructions : Unable Patient Instructions Discharge Signed : No Instructions for Discharge Comments : pt unable to sign, instructions placed in chart for receivingfacility Did Pt have Specialty Bed or Wound Vac : Yes Kathy Robison RN - 12/13/2022 12:38 EDT * Kirill Santiago MD: PERFORM Event Display: Discharge/Transfer Note Hospital Authored Date: [id number] Patient: ??MARINO HALE ? Age:??52 Years?Sex:??Male?:??1970?? Patient Information Discharge Location: D6B Primary Care Physician: Lynn Anne MD, Nenita Hudson Admit Date/Time: 10/20/22 13:00 Discharge Disposition Discharge Disposition: Penitentiary Facility/Rehab ?? [facility] ?? 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) Seizure disorder (G40.909) Autonomic dysfunction (G90.9) Hypotension (I95.9) Nonverbal (R47.01) Bedridden (Z74.01) Gastrostomy status (Z93.1) Normocytic anemia (D64.9) GERD (gastroesophageal reflux disease) (K21.9) BPH (benign prostatic hyperplasia) (N40.0) Sacral decubitus ulcer, stage IV (L89.154) Decubitus ulcer of left ischium, stage 3 (L89.323) Decubitus ulcer of left ischium, unstageable (L89.320) Decubitus ulcer of right ischium, stage 3 (L89.313) Pressure injury of deep tissue of left foot (L89.896) Pressure injury of deep tissue of right foot (L89.896) Pressure ulcer of left buttock, stage 2 (L89.322) Pressure ulcer of left heel, unstageable (L89.620) Pressure ulcer of right ankle, unstageable (L89.510) Ulcer of penis (N48.5) ?? _ Discharge Medications Acetaminophen (Tylenol 325 mg oral tablet)?650?Milligram?2?tablet?G Tube?Every 4 hours?as needed?Mild Pain/Fever Acetaminophen (Tylenol Supp)?650?Milligram?Rectally?Every 4 hours?as needed?Mild Pain/Fever Albuterol (albuterol 0.083% inhalation solution)?3?Milliliter?2.5?Milligram?Neb?Every 6 hours?as needed?Wheezing/Shortness of Breath Ascorbic Acid (ascorbic acid 250 mg oral tablet)?1?tab(s)?250?Milligram?G Tube?Daily Betamethasone Topical (betamethasone topical dipropionate 0.05% ointment)?1?haris?Topically?Daily Bisacodyl (Dulcolax 10 mg rectal suppository)?1?suppository(ies)?10?Milligram?Rectall y?Daily?as needed?as needed for constipation Chlorhexidine Topical (Chlorhexidine 0.12% Liquid)?15?Milliliter?By Mouth?2 times a day Cholecalciferol (cholecalciferol 50,000 intl units oral capsule)?1?capsule?1,250?Microgram?G Tube?Every 30 days?monthly on the Collagenase Topical (collagenase topical 250 u/gm ointment)?1?haris?Topically?2 times a day Docusate-Senna (docusate-senna 50 mg-8.6 mg oral capsule)?1?capsule?G Tube?2 times a day Doxazosin (doxazosin 1 mg oral tablet)?1?Milligram?1?tablet?G Tube?Daily Ferrous Sulfate (ferrous sulfate 300 mg/5 ml oral liquid)?5?Milliliter?300?Milligram?G Tube?Daily Finasteride (finasteride 5 mg oral tablet)?1?tab(s)?5?Milligram?G Tube?Daily Glycopyrrolate (glycopyrrolate 1 mg oral tablet)?1?Milligram?1?tablet?G Tube?Every 8 hours?for 10?Days Guaifenesin?10?Milliliter?G Tube?Every 4 hours?as needed?Cough?200mg/10ml Lacosamide (lacosamide 200 mg oral tablet)?1?tab(s)?200?Milligram?G Tube?Every 12hours Lactobacillus Acidophilus (lactobacillus acidophilus oral capsule)?1?capsule?G Tube?Every 12 hours Loperamide (loperamide 2 mg oral capsule)?2?Milligram?1?capsule?G Tube?Every 4 hours?as needed?as needed for loose stool Lorazepam (Lorazepam 2 mg/ml injectable)?2?Milligram?Intramuscular?Once?as needed?Seizure Activity Melatonin (melatonin 3 mg oral tablet)?1?tab(s)?3?Milligram?G Tube?Daily at bedtime Midodrine (midodrine 5 mg oral tablet)?7.5?Milligram?1.5?tablet?G Tube?Every 8 hours Milk of Magnesia (Milk of Magnesia Liquid)?30?Milliliter?G Tube?Daily?as needed?as needed for constipation Morphine (morphine 10 mg/5 mL oral solution)?2.5?Milliliter?5?Milligram?G Tube?Every 6 hours?as needed?Pain , Severe Omeprazole (omeprazole 2mg/1 mL suspension (compounded))?10?Milliliter?20?Milligram?G Tube?Daily?Compound a concentration of 2 mg/mL suspension; open 20 of 20 mg capsules; crush;add 200 mL sodium bicarbonate 8.4%; Final volume 200 mL. Auxiliary labels: Refrigerate; Shake Well.Expiration: 45 days Ondansetron (ondansetron 4 mg oral tablet)?1?tab(s)?4?Milligram?G Tube?Every 4 hours?as needed?Nausea & Vomiting Ondansetron (ondansetron 2 mg/mL injectable solution)?4?Milligram?Intramuscular?Every 4hours?as needed?as needed for nausea/vomiting Oxycodone (oxyCODONE 5 mg oral tablet)?5?Milligram?1?tablet?G Tube?Every 6 hours?as needed?Pain , Moderate Scopolamine (scopolamine 1 mg/72 hr transdermal film, extended release)?1?Film?Topically?Every 72 hours Sodium Biphosphate-Sodium Phosphate (Fleet Enema 19 gm-7 gm rectal enema)?133?Milliliter?Rectally?Once?as needed?as needed for constipation Sulfamethoxazole/Trimethoprim (Sulfamethoxazole 800mg/Trimethoprim 160 mg Tablet)?1?tablet?G Tube?Daily at bedtime Zinc Sulfate (zinc sulfate 220 mg oral capsule)?220?Milligram?1?capsule?G Tube?Daily at bedtime ? Medications Started * TMP-SMX for chronic suppressive therapy / prophylaxis of DIP GUIDER STOVES Toxoplasmosis ?? Medications Discontinued * Completed pyrimethamine / leukovorin / atovaquone * Ibuprofen stopped ? Allergies Allergies ?(Active and Proposed Allergies Only) NKA? (Severity: Unknown severity, Onset: Unknown) ? PCP Follow-Up/Heads-Up ?? Prompt f/u with PCP for post-discharge eval, medication adjustments & plan of care ?? -- Objective Assessment and Plan ? Assessment:? Mr. Mo is our extremely unfortunate 52 y.o. gentleman with a h.o. 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 COVID-19 (+) infection (09/2022), chronic decubitus ulcers, who was transferred from [facility] to [facility] ([facility]) back??in 09/2022, and he has??been residing there??since, admitted this time on 10/20/2022 from [facility] with [id number] hypoxic respiratory failure / worsening secretions / (+) RSV / (+) COVID-19/ superimposed bacterial pneumonia. s/p IR-guided G-tube exchange (11/16/2022 KRISTIN Tucker) He completed antimicrobial therapy, he is back to his usual baseline, and ready to return to [facility] ? Acute on chronic respiratory failure with hypoxia (J96.01):??. RSV (respiratory syncytial virus pneumonia) (J12.1):??. Superimposed bacterial pneumonia (J15.9):??. Pneumonia due to Pseudomonas aeruginosa (J15.1):??. COVID-19 (U07.1):??. 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 Completed a course of IV cefepime (end-date = 2022) Plan: * Now observing off antimicrobials * Proactive care of tracheostomy / proactive O2 supplementation to keep O2 sats > 90% * Proactive secretion management / pulmonary toilette / suctioning *??Back to [facility] to continue chronic care Ongoing goals of care conversation with his family, as a full code is essentially futile. ?? 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 H.o. Mantle cell lymphoma (C83.10):??. 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 Seizure disorder (G40.909):??. Autonomic dysfunction (G90.9):??. Hypotension (I95.9):??. Nonverbal (R47.01):??. Bedridden (Z74.01):??. Gastrostomy status (Z93.1):? Proactive G-tube care & tube feeds at goal On lacosamide for seizures On midodrine for BP On chronic TMP-SMX for Toxoplasmosis suppressive therapy (completed a course of pyrimethamine / leukovorin / atovaquone; this was discussed between Infectious Disease here & [facility]) ?? Normocytic anemia (D64.9):? Multifactorial from chronic illness / nutrition / chronic blood loss from wounds closely monitor CBC and transfuse accordingly ?? GERD (gastroesophageal reflux disease) (K21.9):? On PPI ?? BPH (benign prostatic hyperplasia) (N40.0):? On finasteride + doxazosin ?? Sacral decubitus ulcer, stage IV (L89.154):??. Decubitus ulcer of left ischium, stage 3 (L89.323):??. Decubitus ulcer of left ischium, unstageable (L89.320):??. Decubitus ulcer of right ischium, stage 3 (L89.313):??. Pressure injury of deep tissue of left foot (L89.896):??. Pressure injury of deep tissue of right foot (L89.896):??. Pressure ulcer of left buttock, stage 2 (L89.322):??. Pressure ulcer of left heel, unstageable (L89.620):??. Pressure ulcer of right ankle, unstageable (L89.510):??. Ulcer of penis (N48.5):? Proactive skin & wound care Proactive pressure off-loading and position changes ? -- ? Vital Signs?? Temperature: 98.7 DegF (12/13/22 08:00:00) Temperature Route: Temporal (12/13/22 08:00:00) Pulse Rate: 87 bpm (12/13/22 08:00:00) Heart Rate Monitored:??93 bpm??High (12/13/22 06:00:00) Respiratory Rate:??15 br/min??Low (12/13/22 08:00:00) Systolic Blood Pressure: 116 mm Hg (12/13/22 08:00:00) Diastolic Blood Pressure: 81 mm Hg (12/13/22 08:00:00) Blood pressure sites: Arm, left (12/13/22 06:00:00) Pulse Pressure: 35 mm Hg (12/13/22 08:00:00) Oxygen Saturation:??91 %??Low (12/13/22 08:00:00) Mode of Delivery (Oxygen): T-Piece (12/13/22 08:00:00) FiO2: 28 % (12/13/22 04:00:00) Early Warning Score: 2 (12/13/22 08:05:07) ? . Physical Exam Afebrile, Tmax = 98.7 F, HR = 87', BP =??116 / 81 Normocephalic, KASI, no thrush Tracheostomy in place, on a??T-piece at 28% FiO2 Clear chest to auscultation, few scattered rhonchi / secretions S1 / S2 no murmur Mermentau abdomen, no rebound, G-tube in place, site OK LEs (-) for edema.?? Neurologically??with sequelae of DIP GUIDER STOVES Toxoplasmosis, functional??quadriparesis with some spasticity / contractures, bedridden, non-verbal ?_ _ Follow-Up Appointments Added Follow Up ?Time Frame ?Comments Lynn Anne MD, Nenita Moody MD, Deanna?Infectious diseases at [facility] ?? FIRST AVAILABLE ? Results Test Name Test Result Date/TimeWBC 5.3 k/mm3 12/13/2022 04:38 EDT Hgb 8.9 Gm/dL (Low) 12/13/2022 04:38 EDT Hct 29.6 % (Low) 12/13/2022 04:38 EDT Platelet Count 221 k/mm3 12/13/2022 04:38 EDT Sodium 139 mmol/L 12/13/2022 04:40 EDT Potassium 4.3 mmol/L 12/13/2022 04:40 EDT Chloride 100 mmol/L 12/13/2022 04:40 EDT Bicarbonate Level 30 mmol/L (High) 12/13/2022 04:40 EDT Anion Gap 9 12/13/2022 04:40 EDT BUN 20 mg/dL 12/13/2022 04:40 EDT Creatinine-Blood 0.7 mg/dL 12/13/2022 04:40 EDT Estimated GFR Creatinine 115 ML/MIN/1.73 M2 12/13/2022 04:40 EDT Phosphorus 3.5 mg/dL 12/13/2022 04:40 EDT Magnesium 2.2 mg/dL 12/13/2022 04:40 EDT 35 minutes spent on discharge summary / bedside care / coordination of care * Petra Longoria RN: PERFORM Event Display: Patient Education/Instruction Authored Date: Inpatient Adult Discharge Instructions [address] [address] Name: MARINO MARIN : 1970 Visit: 10/20/2022 13:00:00 Current Date: 12/13/2022 10:08 Account: [id number] Inpatient Adult Discharge Instructions We would like to thank you for allowing us to assist you with your healthcare needs. The following includes patient education materials and information regarding your injury/illness. Our entire staffstrives to provide an excellent experience for our patients and their families. PLEASE ENSURE YOU FOLLOW-UP PER THE INSTRUCTIONS BELOW! ?? YOUR OPINION IS IMPORTANT TO US! Please complete the survey you may receive by mail or email. Your feedback will be used to make improvements to the healthcare experiences of our patients and their families. Surveys are administered by [employer] ?? If further treatment with your primary care physician or another doctor is recommended, it is important for you to keep the appointment. Call your primary care physician or return to the Emergency Department immediately if your condition worsens, fails to improve, or new symptoms develop. If you need to find a doctor, you can call [facility] [employer] for a referral at [phone] or toll free at [phone] or log in to [email or web address] ?? You can view and manage your care through the patient portal or by using a health care haris of your choosing. [employer] is a website that allows you to securely view your medical information including your hospital discharge summary, office visit summaries, medications and follow-up visits. You can also request appointments, renew medications, and request access to your medical information using a health care haris of your choosing, or just ask a question. You can enroll at [email or web address] or register during your next office visit. You have been discharged from [facility], Patient Care Unit: D6B. If you have any questions regarding these instructions after you leave, please call us and we will be happy to assist you. [facility] Your Care Team Attending Physician Kirill Santiago MD Consulting Providers Robby MAHMOOD, Stephanie; Darrell MAHMOOD, Faustina Rogel MD Discharging Providers Kirill Santiago MD Reason for Your Visit Pt. coming from [facility]. Pt. having increased sputum from trach and desats on RA. Had mild fever for facility with hypotension in the 90's systolic. Pt. nonverbal and contracted at baseline. Your Diagnosis Acute on chronic respiratory failure with hypoxia Sepsis due to COVID-19 RSV (respiratory syncytial virus pneumonia) Sacral decubitus ulcer, stage IV Sequelae of DIP GUIDER STOVES toxoplasmosis Autonomic dysfunction Bedridden BPH (benign prostatic hyperplasia) Decubitus ulcer of left ischium, stage 3 Decubitus ulcer of left ischium, unstageable Decubitus ulcer of right ischium, stage 3 Functional quadriparesis with spasticity / contractures Gastrostomy status GERD (gastroesophageal reflux disease) H.o. Mantle cell lymphoma Hypotension Nonverbal Normocytic anemia Pneumonia due to Pseudomonas aeruginosa Pressure injury of deep tissue of left foot,??Pressure injury of deep tissue of right foot Pressure ulcer of left buttock, stage 2 Pressure ulcer of left heel, unstageable Pressure ulcer of right ankle, unstageable Seizure disorder Superimposed bacterial pneumonia Tracheostomy status Ulcer of penis Tests Performed Below is a partial list of the tests performed during your hospitalization. You may have had other tests and procedures not included in this list. Please discuss all test results with your provider. ALT AST Basic Metabolic Panel Beta D Glucan Assay Blood Urea Nitrogen BUN C-REACTIVE PROTEIN C. DIFFICILE TOXIN CBC CBC w/ Differential Complete Urinalysis Comprehensive Metabolic Panel COVID-19 (2019 Novel Coronavirus) PCR COVID-19 (NOVEL CORONAVIRUS), PCR COVID-19, RSV, and Flu A/B, Rapid PCR Creatinine Electrolytes GLUCOSE POC HOLD BLUE TUBE HOLD GEL TUBE HOLD GREEN TUBE HOLD LAVENDER TUBE Lactate Level Lactic Acid Level Lipase Liver Function Panel Lytes Magnesium Level Mg Level MRSA PCR Nasal Swab Phosphorus Level Procalcitonin Level Urinalysis Complete Urinalysis w/hold for Urine Culture Vancomycin Trough Zinc Level CT Angio Chest CT Ext Lower W/ Contrast Left CXR Portable IR Generic Order Portable Chest XR Chest Portable Primary Care Provider Nenita Norton MD Advance Directive . Discharge Vitals Temperature: 98.7 DegF Height: 183 cm Pulse Rate:??91 bpm??High Weight: 56 kg Respiratory Rate: 16 br/min Body Mass Index:??27.95 kg/m2??High Systolic Blood Pressure: 112 mm Hg Body surface area: 2.18 Diastolic Blood Pressure: 81 mm Hg ?? Oxygen Saturation:??93 %??Low ?? Studies Pending All tests and labs ordered during this hospital stay have been completed unless listed below. Please discuss all pending results with your provider listed above in these instructions. ?? Add On Lab Order BUN CBC Creatinine Electrolytes (Lytes) Hold Lavender Tube (BB) Magnesium Level Phosphorus Level Sputum Culture w/ Gram Smear What to do next Instructions From Your Doctor Discharge Orders You Need to Schedule the Following Appointments Follow Up with??Nenita Norton MD When?? Where: [address] [place] [address] [address] [place] [address]- Follow Up with??Deanna Moody MD When?? Why: Infectious diseases at [facility] Where: Discharge Medications MAIRNO HALE :1970 Visit Date:10/20/2022 Medications: Please continue your medications until treatment is completed or stopped by your provider. Medications not listed below should be discontinued. Discuss any questions related to medications with your provider. What How Much When Instructions Next Dose Changed Bisacodyl (Dulcolax 10 mg rectal suppository) 1 suppository(ies) Per rectum Daily as needed for as needed for constipation As needed Changed Docusate-Senna (docusate-senna 50 mg-8.6 mg oral capsule) 1 capsule Gastrostomy/PEG Tube Twice a day 12/13 9pm Changed Guaifenesin 10 Milliliter Gastrostomy/PEG Tube Every 4 hours as needed for Cough 200mg/ 10ml ?? As needed Changed Lacosamide (lacosamide 200 mg oral tablet) 1 tab(s) Gastrostomy/PEG Tube Every 12 hours 12/13 9pm Changed Milk of Magnesia (Milk of Magnesia Liquid) 30 Milliliter Gastrostomy/PEG Tube Daily as needed for as needed for constipation As needed Changed Omeprazole (omeprazole 2mg/ 1 mL suspension (compounded)) 10 Milliliter Gastrostomy/PEG Tube Daily Compound a concentration of 2 mg/ mL suspension; open 20 of 20 mg capsules; crush; add 200 mL sodium bicarbonate 8.4%; Final volume 200 mL. Auxiliary labels: Refrigerate; Shake Well. Expiration: 45 days ?? 12/14 9am Changed Ondansetron (ondansetron 2 mg/ mL injectable solution) 4 Milligram Intramuscular Every 4 hours as needed for as needed for nausea/vomiting As needed Changed Ondansetron (ondansetron 4 mg oral tablet) 1 tab(s) Gastrostomy/PEG Tube Every 4 hours as needed for Nausea & Vomiting As needed Changed Sodium Biphosphate-Sodium Phosphate (Fleet Enema 19 gm-7 gm rectal enema) 133 Milliliter Per rectum Once as needed for as needed for constipation As needed Changed Sulfamethoxazole/ Trimethoprim (Sulfamethoxazole 800mg/ Trimethoprim 160 mg Tablet) 1 tab(s) Gastrostomy/PEG Tube Daily at Bedtime 12/13 9pm Changed Zinc Sulfate (zinc sulfate 220 mg oral capsule) 1 capsule Gastrostomy/PEG Tube Daily at Bedtime 12/13 9pm Unchanged Acetaminophen (Tylenol 325 mg oral tablet) 2 tab(s) Gastrostomy/PEG Tube Every 4 hours as needed for Mild Pain/Fever As needed Unchanged Acetaminophen (Tylenol Supp) 650 Milligram Per rectum Every 4 hours as needed for Mild Pain/Fever As needed Unchanged Albuterol (albuterol 0.083% inhalation solution) 3 Milliliter Nebulized inhalation Every 6 hours as needed for Wheezing/Shortness of Breath As needed Unchanged Ascorbic Acid (ascorbic acid 250 mg oral tablet) 1 tab(s) Gastrostomy/PEG Tube Daily 12/14 9am Unchanged Betamethasone Topical (betamethasone topical dipropionate 0.05% ointment) 1 haris Topically Daily 12/14 9am Unchanged Chlorhexidine Topical (Chlorhexidine 0.12% Liquid) 15 Milliliter Oral Twice a day 12/14 9pm Unchanged Cholecalciferol (cholecalciferol 50,000 intl units oral capsule) 1 capsule Gastrostomy/PEG Tube Every 30 days monthly on the 12/27 Unchanged Collagenase Topical (collagenase topical 250 u/ gm ointment) 1 haris Topically Twice a day 12/13 9pm Unchanged Doxazosin (doxazosin 1 mg oral tablet) 1 tab(s) Gastrostomy/PEG Tube Daily 12/14 9am Unchanged Ferrous Sulfate (ferrous sulfate 300 mg/ 5 ml oral liquid) 5 Milliliter Gastrostomy/PEG Tube Daily 12/14 9am Unchanged Finasteride (finasteride 5 mg oral tablet) 1 tab(s) Gastrostomy/PEG Tube Daily 12/14 9am Unchanged Glycopyrrolate (glycopyrrolate 1 mg oral tablet) 1 tab(s) Gastrostomy/PEG Tube Every 8 hours Duration: 10 Days 12/13 1pm Unchanged Lactobacillus Acidophilus (lactobacillus acidophilus oral capsule) 1 capsule Gastrostomy/PEG Tube Every 12 hours 12/13 9pm Unchanged Loperamide (loperamide 2 mg oral capsule) 1 capsule Gastrostomy/PEG Tube Every 4 hours as needed for as needed for loose stool As needed Unchanged Lorazepam (Lorazepam 2 mg/ ml injectable) 2 Milligram Intramuscular Once as needed for Seizure Activity As needed Unchanged Melatonin (melatonin 3 mg oral tablet) 1 tab(s) Gastrostomy/PEG Tube Daily at Bedtime 12/13 9pm Unchanged Midodrine (midodrine 5 mg oral tablet) 1.5 tab(s) Gastrostomy/PEG Tube Every 8 hours 12/13 1pm Unchanged Morphine (morphine 10 mg/ 5 mL oral solution) 2.5 Milliliter Gastrostomy/PEG Tube Every 6 hours as needed for Pain , Severe As needed Unchanged Oxycodone (oxyCODONE 5 mg oral tablet) 1 tab(s) Gastrostomy/PEG Tube Every 6 hours as needed for Pain , Moderate As needed Unchanged Scopolamine (scopolamine 1 mg/ 72 hr transdermal film, extended release) 1 Film Topically Every 72 hours 12/13 4pm ?? What How Much When Comments Stop Taking Amlodipine (amLODIPine 5 mg oral tablet) 1 tab(s) Oral Daily Stop Taking Atovaquone (atovaquone 750 mg/ 5 mL oral suspension) 5 Milliliter Gastrostomy/PEG Tube Twice a day Stop Taking Ceftriaxone (ceftriaxone 1 gm injectable powder for injection) 1 gram Intramuscular Daily Mix with 2.1ml Lidocaine 1% ?? Stop Taking Clonazepam Oral 3 times a day Stop Taking Cyanocobalamin 1,000 Microgram Intramuscular Every Tuesday Stop Taking Cyclobenzaprine (cyclobenzaprine 10 mg oral tablet) 1 tab(s) Oral 3 times a day as needed for for spasm Stop Taking Famotidine (famotidine 20 mg oral tablet) 1 tab(s) Oral Twice a day Stop Taking Furosemide (Lasix 20 mg oral tablet) 1 capsule Oral Once Stop Taking Gabapentin (gabapentin 300 mg oral capsule) 1 capsule Oral 3 times a day Stop Taking Heparin (heparin 5000 u/ ml injectable solution) 5,000 unit(s) Subcutaneous Infusion Every 8 hours Stop Taking Ibuprofen (ibuprofen 400 mg oral tablet) 1 tab(s) Gastrostomy/PEG Tube Every 4 hours as needed for Pain , Moderate Stop Taking Leucovorin (leucovorin 25 mg oral tablet) 1 tab(s) Gastrostomy/PEG Tube Daily at Bedtime Stop Taking levETIRAcetam 1,000 Milligram Oral Twice a day Stop Taking Losartan (losartan 50 mg oral tablet) 1 tab(s) Oral Daily Stop Taking Magnesium Citrate (Citrate of Magnesia 8.85% oral liquid) 1 dose Oral Once as needed for Constipation Stop Taking Mirtazapine (mirtazapine 15 mg oral tablet) 1 tab(s) Oral Daily at Bedtime Stop Taking Nabumetone (nabumetone 750 mg oral tablet) 1 tab(s) Oral Twice a day Stop Taking nalOXONE (Narcan 4 mg/ 0.1 mL nasal spray) 4 Milligram Once as needed for opioid overdose may repeat ?? Stop Taking Polyethylene Glycol 3350 (MiraLax oral powder for reconstitution) 17 gram Oral Daily as needed for Constipation dissolve in water before taking ?? Stop Taking Pyrimethamine (pyrimethamine 25 mg oral tablet) 2 tab(s) Gastrostomy/PEG Tube Every week Stop Taking ValACYclovir (valACYclovir 500 mg oral tablet) 1 tab(s) Oral Twice a day Stop Taking Zinc Oxide Topical (zinc oxide 10% topical ointment) Apply Topically Twice a day Test Results Below is a partial list of the most recent Laboratory test results done prior to this discharge. You may have had other tests and procedures not included in this list. Please discuss all test resultswith your provider. Est Creatinine Clearance - 138.77 mL/min (12/08/2022) ALT (10/25/2022) ???ALT (SGPT) - 57 units/L AST (10/25/2022) ???AST (SGOT) - 47 units/L Basic Metabolic Panel (11/24/2022) ???Sodium - 143 mmol/L???Potassium - 4.3 mmol/L???Chloride - 103 mmol/L???Bicarbonate Level - 30 mmol/L???Anion Gap - 10???Glucose Level - 123 mg/dL???BUN - 16 mg/dL???Creatinine-Blood - 0.8 mg/dL???Estimated GFR Creatinine - 108 ML/MIN/1.73 M2???Calcium - 8.3 mg/dL Beta D Glucan Assay (11/27/2022) ? ?Beta D Glucan - <31 Blood Urea Nitrogen (10/22/2022) ???BUN - 16 mg/dL BUN (12/13/2022) ???BUN - 20 mg/dL C-REACTIVE PROTEIN (11/01/2022) ???C-Reactive Protein - 0.8 mg/dL C. DIFFICILE TOXIN (11/29/2022) ???C.difficile Toxin - Negative. C.Difficile bacterial antigen and toxin not detected. A CBC (12/13/2022) ???WBC - 5.3 k/mm3???RBC - 3.22 m/mm3???Hgb - 8.9 Gm/dL???Hct - 29.6 %???MCV - 91.9 femtoliters???MCH - 27.6 pg???MCHC - 30.1 g/dL???Platelet Count - 221 k/mm3???RDW-SD - 60.3 femtoliters???MPV - 9.9femtoliters???Nucleated RBC (Automated) - 0.0 #/100 WBC'S???Abs. NRBC - 0.0 k/mm3 CBC w/ Differential (11/30/2022) ???WBC - 6.2 k/mm3???RBC - 3.07 m/mm3???Hgb - 8.6 Gm/dL???Hct - 28.5 %???MCV - 92.8 femtoliters???MCH - 28.0 pg???MCHC - 30.2 g/dL???Platelet Count - 204 k/mm3???RDW-SD - 64.8 femtoliters???MPV - 9.9femtoliters???Nucleated RBC (Automated) - 0.0 #/100 WBC'S???Abs. NRBC - 0.0 k/mm3???Abs. Neut - 4.8 k/mm3???Abs. Lymph - 0.6 k/mm3???Abs. [place] - 0.7 k/mm3???Abs. Eo - 0.1 k/mm3???Abs. Baso - 0.0 k/mm3???Neut % - 76.8 %???Lymph % - 9.5 %???[place] % - 11.9 %???Eos % - 1.0 %???Baso % - 0.3 %???Imm Gran - 0.5 %???Abs. Imm Gran - 0.0 k/mm3 Complete Urinalysis (11/19/2022) ???Appear/Color, Urine - YELLOW???Specific [place], Urine - 1.022???pH, Urine - 6.5???Albumin, Urine - 2+???Glucose, Urine - NEGATIVE???Ketones, Urine - NEGATIVE???Bilirubin, Urine - NEGATIVE???Hemoglobin, Urine - NEGATIVE???Nitrite, Urine - NEGATIVE???Leukocyte, Urine - NEGATIVE???Urobilinogen - NORMAL???WBC's, Urine - 1 /HPF???RBC's, Urine - 1 /HPF???Bacteria - SLIGHT???Hyaline Cast - 1 LPF???Mucus - SLIGHT Comprehensive Metabolic Panel (12/08/2022) ???Sodium - 140 mmol/L???Potassium - 3.8 mmol/L???Chloride - 101 mmol/L???Bicarbonate Level - 28 mmol/L???Anion Gap - 11???Glucose Level - 115 mg/dL???BUN - 23 mg/dL???Creatinine-Blood - 0.7 mg/dL???Estimated GFR Creatinine - 112 ML/MIN/1.73 M2???Calcium - 8.6 mg/dL???Protein, Total - 6.2 Gm/dL???Al bumin - 3.5 Gm/dL???AG Ratio - 1.3???Alkaline Phosphatase - 113 units/L???AST (SGOT) - 32 units/L???ALT (SGPT) - 71 units/L???Bilirubin, Total - 0.2 mg/dL COVID-19 (2019 Novel Coronavirus) PCR (10/21/2022) ???COVID-19 PCR Specimen Source - NASAL???COVID-19 PCR Result - PRESUMPTIVE POSITIVE COVID-19 (NOVEL CORONAVIRUS), PCR (12/07/2022) ???COVID-19 by RT-PCR - NEGATIVE COVID-19, RSV, and Flu A/B, Rapid PCR (10/20/2022) ???Influenza A PCR - NEGATIVE???Influenza B PCR - NEGATIVE???RSV PCR - POSITIVE???COVID-19 PCR Specimen Source - NASAL???COVID-19 PCR Result - NEGATIVE Creatinine (12/13/2022) ???Creatinine-Blood - 0.7 mg/dL???Estimated GFR Creatinine - 115 ML/MIN/1.73 M2 Electrolytes (11/30/2022) ???Sodium - 141 mmol/L???Potassium - 4.1 mmol/L???Chloride - 102 mmol/L???Bicarbonate Level - 28 mmol/L???Anion Gap - 11 GLUCOSE POC (12/12/2022) ???Glucose, POC - 151 mg/dL HOLD BLUE TUBE (11/19/2022) ???Hold Blue Top - SPECIMEN DISCARDED AFTER 4 HOURS. HOLD GEL TUBE (11/30/2022) ???Hold Gel Top - SPECIMEN DISCARDED AFTER 1 WEEK HOLD GREEN TUBE (11/19/2022) ???Hold Green Top - SPECIMEN DISCARDED AFTER 1 WEEK HOLD LAVENDER TUBE (11/19/2022) ???Hold Lavender Top - SPECIMEN DISCARDED AFTER 24 HOURS. Lactate Level (10/20/2022) ???Lactate - 1.7 mmol/L Lactic Acid Level (11/19/2022) ???Lactate - 1.2 mmol/L Lipase (10/20/2022) ???Lipase - 42 units/L Liver Function Panel (10/24/2022) ???Protein, Total - 5.2 Gm/dL???Albumin - 3.0 Gm/dL???Alkaline Phosphatase - 121 units/L???AST (SGOT) - 42 units/L? ?ALT (SGPT) - 52 units/L? ?Bilirubin, Total - 0.2 mg/dL? ?Bilirubin, Direct - <0.2 mg/dL???Bilirubin, Indirect - Direct bilirubin is less than the measureable limit. Therefore, indirect Lytes (12/13/2022) ???Sodium - 139 mmol/L???Potassium - 4.3 mmol/L???Chloride - 100 mmol/L???Bicarbonate Level - 30 mmol/L???Anion Gap - 9 Magnesium Level (12/13/2022) ???Magnesium - 2.2 mg/dL Mg Level (12/07/2022) ???Magnesium - 2.3 mg/dL MRSA PCR Nasal Swab (11/19/2022) ???MRSA PCR Result - Positive, MRSA target DNA detected.???S Aureus PCR Result - Positive, SA target DNA detected. Phosphorus Level (12/13/2022) ???Phosphorus - 3.5 mg/dL Procalcitonin Level (11/19/2022) ???Procalcitonin - 0.21 ng/mL Urinalysis Complete (11/05/2022) ???Appear/Color, Urine - YELLOW???Specific [place], Urine - 1.022???pH, Urine - 6.5???Albumin, Urine - 1+???Glucose, Urine - NEGATIVE???Ketones, Urine - NEGATIVE???Bilirubin, Urine - NEGATIVE???Hemoglobin, Urine - NEGATIVE???Nitrite, Urine - NEGATIVE???Leukocyte, Urine - NEGATIVE???Urobilinogen - NORMAL???WBC's, Urine - 2 /HPF???RBC's, Urine - 2 /HPF???Squamous Epith - 1 /HPF???Mucus - SLIGHT Urinalysis w/hold for Urine Culture (11/13/2022) ???Appear/Color, Urine - YELLOW???Specific [place], Urine - 1.034???pH, Urine - 6.0???Albumin, Urine - 2+???Glucose, Urine - NEGATIVE???Ketones, Urine - NEGATIVE???Bilirubin, Urine - NEGATIVE???Hemoglobin, Urine - 1+???Nitrite, Urine - NEGATIVE???Leukocyte, Urine - NEGATIVE???Urobilinogen - NORMAL???WBC's, Urine - NONE SEEN???RBC's, Urine - 35 /HPF???Hold Urine Culture - Testing available 48 hours from time of collection. Vancomycin Trough (10/27/2022) ???Vancomycin Level, Trough - 18.5 mg/L Zinc Level (10/29/2022) ???Zinc Level - 75 Allergies (NKA means No Known Allergies) NKA Problems No qualifying data available Education Materials Below is the list of Educational Leaflet Providered with your Discharge Instructions. Valuables and Belongings I fully understand and agree that [facility] accepts no responsibility for all my personal property including clothing, toilet articles, radios, jewelry, dentures, hearing aids, rings, money, or any other property that is in my possession or is brought to me after admission. I understand certain valuables may be placed in a hospital safe for a short period of time. I understand that the hospital is not liable for loss or damage due to accident, fire, or other natural occurrence while said property is in the safe. I accept full responsibility for any personal property that I keep with me, and will not hold the hospital responsible in case of loss or disappearance. I acknowledge that i have been encouraged to send valuables and belongings home. ?? No Valuables/Belongings: No valuables/belongings present Review of Valuable and Belonging List: With patient Possessions released to: No ??Medical ??Advices Date for Pt to Sign Valuables/Belongings: 10/25/22 05:03:00 ?? Other Discharge Information ?? Wound Assessment?? Wound Assessment?? Wound Location I: Hip, right Wound Type I: Unknown Etiology Wound I, Present on Admission: Yes Wound Location II: Hip, left Wound Type II: Unknown Etiology Wound II, Present on Admission: Yes Wound Location III: Foot, right Wound Type III: Unknown Etiology Wound III, Present on Admission: Yes Wound Location IV: Foot, left Wound Type IV: Unknown Etiology Wound Location V: Coccyx Wound Type V: Unknown Etiology ? Case Management Discharge Plan?? Discharge Plan?? Discharge Nursing Homes/Rehab Facilities: [facility] ?? Pulmonary Rehab Status?? Pulmonary Rehab Discharge Status?? Respiratory Rate: 16 br/min ? Common Emergency Awareness Tips IS IT A STROKE? Act FAST and Check for these signs: FACE Does the face look uneven? ARM Does one arm drift down? SPEECH Does their speech sound strange? TIME Call at any sign of stroke ?? Heart Attack Signs Chest discomfort: Most heart attacks involve discomfort in the center of the chest and lasts more than a few minutes, or goes away and comes back. It can feel like uncomfortable pressure, squeezing, fullness or pain. Discomfort in upper body: Symptoms can include pain or discomfort in one or both arms, back, neck, jaw or stomach. Shortness of breath: With or without discomfort. Other signs: Breaking out in a cold sweat, nausea, or lightheaded. Remember, MINUTES DO MATTER. If you experience any of these heart attack warning signs, call to get immediate medical attention! ?? Smoking can increase your chances of developing chronic health problems and can cause harmful effects to other family members in your house. If you smoke, you are strongly encouraged to quit. Please call [facility] at [phone] or [phone] ([phone]) or log in to [email or web address] for referrals to smoking cessation programs. ?? 759 Suicide & Crisis Lifeline is available 07/03 if you or someone you know needs to find a reason to keep living. By calling 379 you'll be connected to a skilled, trained counselor at a crisis center in your area. INPATIENT DISCHARGE INSTRUCTIONS SIGNATURE PAGE MARINO HALE Location:[facility] Registration Date and Time:10/20/2022 13:00 [facility] Primary Care Physician: Lynn Anne MD, Nenita Hudson, I KIAH MARINO MARIN, have received the above patient education materials/instructions and have verbalized understanding. If ambulance or transport services are being used I further acknowledge being given a choice of service. ?? If you need to contact me, please call me at this number: . Patient/Sales Order Specialist Name: Patient/Sales Order Specialist Signature: Relationship to Patient: Witness Name/Signature: Date: * Ashleigh Grace RN: PERFORM Event Display: Procedures Invasive Line Authored Date: [id number] Vascular Access Insertion Entered On: 12/07/2022 21:48 EDT Performed On: 12/07/2022 21:41 EDT by Ashleigh Grace RN Vascular Access Insertion Date of Vascular Access Insertion : 12/07/2022 EDT Procedure Location Vascular Access : D6B Person recording insertion : Site Director Site Director of Vascular Access : Ashleigh Grace RN Occupation of Vascular Access Site Director : Registered nurse Was plugger a member of PICC/IV Team : Yes Ashleigh Grace RN - 12/07/2022 21:41 EDT Procedural Comments Risk Factors and Labs Reviewed : Yes Anticoagulation Therapy : Yes Antiplatelet Therapy : No Ashleigh Grace RN - 12/07/2022 21:41 EDT Was vascular access order placed : Yes Vascular Access Type : Other: MIDLINE Time Out Performed : Yes Time Out Data : Patient identified, Site verified, Procedure verified, RN attendance Reason for Vascular Access Insertion : Medication requires use of vascular access Suspected Vascular Access Infection : No, the access was not exchanged over a guide wire Vascular Access Procedure Check : Consent obtained Hand Hygiene prior to insertion : Yes Maximal sterile barriers used : Mask, Sterile gloves, Ultrasound sterile cover, Cap, Other: STERILEDRAPE Sterile Field Maintained : Yes Skin Preparation : Chlorhexidine (CHG) Skin Prep dry at first skin puncture : Yes Antimicrobial coated catheter used : No Successful central line placement : No Vascular Access Catheter Type : Other: MIDLINE Vascular Access Insertion Site : Upper extremity Vascular Access Insertion Side : Right Vessel Identified By : Ultrasound Vascular Access Insertion Circumstance : Non-emergent Vascular Access Dressing : Occlusive Follow-up CXR : Not applicable CXR Comment : N/A FOR MIDLINE Ashleigh Grace RN - 12/07/2022 21:41 EDT DCP GENERIC CODE Suture needles : 0 [place] : 1 Scalpels : 0 Clamps : 0 Guide Wires : 1 Ashleigh Grace RN - 12/07/2022 21:41 EDT Complications during Insertion : None Tolerated CLIP procedure well : Yes Insertion Attempts : 2 Vascular Access Device QA : POWERGLIDE MIDLINE 20G 8 CM Vascular Access Device Lot Number : [id number] Vascular Access Device Code : [id number] Vascular Access Device Expiration Date : 02/11/2023 EDT Vascular Access Insertion Comments : MIDLINE OK TO USE Ashleigh Grace RN - 12/07/2022 21:41 EDT * Event Display: IR End of Case Report * Omar Carty: PERFORM, TRANSCRIBE, VERIFY, VERIFY Event Display: Result: Authored Date: [id number] Patient: MARINO HALE Study Date: 11/16/2022 Performing: Omar Tucker PA-C Referring: : 1970 Age: 51 Gender: MALE Pre-procedure diagnosis and Indication: 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 Currently has a rubio catheter in place which was placed in the emergency department. Exam: Prior to the procedure, the patient was seen and the nature of the procedure explained along with its attendant risks and benefits to a family member over the phone . Informed consent was obtained from, a family member over the phone . The patient arrived in IR room 2 for a gastrostomy tube reinsertion PROCEDURE: The patient was positioned supine and secured with arm boards. The access site was draped in the usual clean fashion. . contrast injected into existing tube a wire was inserted and water removed from the old balloon 10 ml's and the existing tube was removed. and a 18 FR gastrostomy tube.was inserted the retention balloon was filled to a volume of 10 ml's of water . contrast injected to check placement of new tube . 18 FR gastrostomy tube . The sterile field was maintained throughout the procedure and patient tolerated the procedure well with no complications of the procedure estimated blood loss was minimal Specimens/samples: no specimens or samples were sent for this procedure Patient transferred to [address] Post procedure instructions sent in envelope with the patient Impression: Satisfactory fluoroscopically guided replacement of a gastrostomy tube patient tolerated the procedure well with no complications of the procedure Please Note:. Do not cut the any suture encircling the G-tube collar (if present). 1. The G-tube can be used now. 2. Please consult with nutrition service concerning starting g-tube feeds. 3. When initiating G-tube feeds have the patient in right side down decubitus. 4. Written instructions and other information concerning G-tubes were given to [ ] and/or also placed in the patients chart. These orders were entered into [facility].. 5. Please ensure that the white port on the hub of the catheter is used for balloon inflation and deflation only. This port should only be manipulated by an interventional radiologist. This should not be used for flushing or administration of feeds. 6. We recommend that G-tubes of this type be replaced at 3 month intervals to avoid inadvertent loss of access due to deterioration in the G-tube retention balloon material. We will make arrangements. TO PREVENT CLOGGING OF THE G-TUBE FLUSH VIGOROUSLY WITH 30ML OF WATER AFTER EACH FEEDING. WHENEVER POSSIBLE GIVE MEDICATIONS IN LIQUID FORM; IF SOLID MEDICATIONS ARE ABSOLUTELY REQUIRED HAVE THE MEDICATIONS GROUND TO A FINE PASTE (preferably by a compounding pharmacy) SUSPEND IN WATER AND FLUSH AFTER EACH DOSE. IF CLUMPS OF MEDICATION ARE SEEN IN THE SUSPENSION, RESUSPEND. Fluoroscopy time and dose Total Fluoro Time: 0.1 mins Total dose 1 mGy Total DAP 7.17 - ?Gy/m2 Contrast used Contrast used: Omnipaque_300 20 ml's Signed By Omar Tucker PA-C On 11/16/2022 11:29:09 Omar Tucker PA-C Dictated By: Omar Carty Dictated Date/Time: 11/16/22 11:00 a Reviewed By: Omar Carty Signed By: Omar Carty Signed Date/Time: 11/16/22 11:24 am Transcribed By: JULIA Transcribed Date/Time: 11/16/22 11:24 am * Event Display: Cardiac Rhythm Strips Authored Date: * Event Display: Cardiac Rhythm Strips Authored Date: * Event Display: Cardiac Rhythm Strips Authored Date: Admission evaluation note * Ernestina Kang MD: MODIFY, MODIFY, MODIFY, PERFORM, MODIFY, MODIFY Event Display: Admission Note Authored Date: [id number] Patient: ??MARINO HALE ? Age:??51 Years?Sex:??Male?:??1970?? Chief Complaint/Reason for Consultation Pt. coming from [facility]. Pt. having increased sputum from trach and desats on RA. Had mild fever for facility with hypotension in the 90's systolic. Pt. nonverbal and contracted at baseline. History of Present Illness Mr. Lorenzo is a 51-year-old male with past medical history of DIP GUIDER STOVES toxoplasmosis, Stage IV mantle celllymphoma, Stage III CKD, normocytic anemia, GERD, BPH, seizure disorder,??trach dependent and G-tube dependent who presented from [facility] for concern of sepsis. ?? Spoke with the healthcare proxy Mr. Ren, who is a friend, who states Marino was diagnosed with toxoplasmosis appear years ago.?? He states that he spent a lot of time at [facility] as hewas a lymphoma patient and followed with oncology there.?? He has been living at [facility] for the last few months and needed to come to the hospital today due to decreased O2 sats. In the morning patient was noted to be de-satting down to the mid 80s on room air and deep suctioning brought up copious yellow thick secretions.?? He he was requiring supplemental oxygen to maintain O2 sats. ?? In the emergency room he was febrile to 100.6, heart rate of 104, blood pressure 111/55, satting well on 6 L on a Ventimask at 50% FiO2.?? His lab work is significant for hemoglobin of 10.9 and platelet count of 143.?? Potassium was hemolyzed, chloride of 97, bicarb of 32 with anion gap of 10.?? Creatinine noted to be 0.9 with BUN of 27.?? Alk phos elevated to 204 with ALT elevated to 119.?? He is RSV positive.?? EKG showed normal sinus rhythm.?? Chest x-ray shows concern for left lower lobe pneumonia.?? He was given 1 L of fluids in the emergency room along with Vanco and Zosyn. ?? On my evaluation he is non-verbal and pointing upwards. He is able to track me and follows some commands. Of note, patient speaks Malian. Of note, I spoke with HCP in regards to code status, and he states patient has expressed to him that he would want to be a full code. I explained to the HCP that Mr. Lorenzo would likely not do well in a code situation and would have poor quality of life. HCP said he will discuss with patient at some point. Review of Systems Unable to obtain due to non-verbal status Objective Vital Signs?? Temperature: 99.2 DegF (10/20/22 12:41:00) Temperature Route: Oral (10/20/22 12:41:00) Pulse Rate:??102 bpm??High (10/20/22 12:41:00) Respiratory Rate: 17 br/min (10/20/22 12:41:00) Systolic Blood Pressure: 121 mm Hg (10/20/22 12:41:00) Diastolic Blood Pressure: 68 mm Hg (10/20/22 12:41:00) Blood pressure sites: Arm, right (10/20/22 12:41:00) Mean Arterial Pressure: 86 mm Hg (10/20/22 12:41:00) Pulse Pressure: 53 mm Hg (10/20/22 12:41:00) Oxygen Saturation: 96 % (10/20/22 12:41:00) Liters per Minute: 6 L/min (10/20/22 12:41:00) Mode of Delivery (Oxygen): Venti-mask (10/20/22 12:41:00) ? Physical Exam General??: No apparent distress, laying comfortably HEENT: Normocephalic, EOMI,??moist oral mucosa?? Cardiovascular??: RRR, S1??and S2 heard,??No M/G/R.?? Respiratory??Clear to auscultation bilaterally??no wheezes, no rales or rhonchi. Abdomen/GI??Non-distended. Normal bowel sounds. Soft, non-tender.?? Extremities??No clubbing. No cyanosis. No edema.?? Vascular??Peripheral pulsations intact Neurologic??no focal neurological deficits. moving all extremities spontaneously Psychiatric??Mood and Affect WNL.?? Assessment/Plan Assessment:??Mr. Lorenzo is a 51-year-old male with past medical history of DIP GUIDER STOVES toxoplasmosis, Stage IV mantle cell lymphoma, Stage III CKD, normocytic anemia, GERD, BPH, seizure disorder,??trach dependent and G-tube dependent who presented from [facility] (where he resides)??for concern of sepsis. He was??found to be RSV positive and have a pneumonia. ?? RSV positive Left lower lobe pneumonia Acute hypoxic respiratory failure Tracheostomy Was initially hypoxic to the mid 80s on room air, tachycardic and febrile Chest x-ray showed left lower lobe pneumonia and patient had thick yellow secretions suctioned Also found to be RSV positive on lab work Now currently requiring a Ventimask at 6L and unsure if he has a #8 Bivona TTS vs 7.5 shiley dic cuffless ?? Plan: ??? Monitor O2 saturation with goal sat greater than 93% ??? Continue Vanco and Zosyn ??? Tylenol for fever control ??? Sputum culture ??? MRSA swab ??? Follow-up with blood cultures ?? G-tube Dependent Home regimen seems to be: Water 210 mL x4/day, Banatrol BID, Brice 1 pk BID, Prosource 45 mL, Osmolite 1.3 ?? Plan: -Will consult nutrition to help set up tube feeds ?? History of CKD Stage III Unaware of baseline, but today Cr 0.9 and BUN of 27 ?? Plan: -Monitor Kidney function daily -Avoid nephrotoxic agents ?? Chronic stable medical conditions: Hypotension ??? midodrine 7.5 mg TID GERD - omeprazole 20 mg daily, nonformulary - will do pantoprazole Insomnia - melatonin Hx of Toxoplasmosis - leucovorin 25 mg daily, Pyrimethamine 50 mg qweekly (not on formulary), Atovaquone 750 mg BID (follows with ID at [facility]) BPH - Finasteride 5 mg and doxazosin 1 mg Seizures - Lacosamide 200 mg BID Normocytic anemia - continue iron supplementation ?? Quality Measures: Diet - G-tube dependent DVT prophylaxis - Lovenox Code Status -??Full Code, discussed with HCP on admission ?? Ernestina Kang MD Internal Medicine PGY-2 Pager: [phone] ?? Patient seen and discussed with Dr. Stewart Histories Allergies Allergies ?(Active and Proposed Allergies Only) NKA? (Severity: Unknown severity, Onset: Unknown) ? Past Medical History/Problem List please see HPI ? Past Surgical History Unable to obtain due to??patient being non-verbal with me ? Social History Unable to obtain due to??patient being non-verbal with me ? Family History Unable to obtain due to??patient being non-verbal with me ? Medications Home Medications Acetaminophen (Tylenol 325 mg oral tablet)?650?Milligram?2?tablet?G Tube?Every 4 hours?as needed?Mild Pain/Fever Acetaminophen (Tylenol Supp)?650?Milligram?Rectally?Every 4 hours?as needed?Mild Pain/Fever Albuterol (albuterol 0.083% inhalation solution)?3?Milliliter?2.5?Milligram?Neb?Every 6 hours?as needed?Wheezing/Shortness of Breath Ascorbic Acid (ascorbic acid 250 mg oral tablet)?1?tab(s)?250?Milligram?G Tube?Daily Atovaquone (atovaquone 750 mg/5 mL oral suspension)?5?Milliliter?750?Milligram?G Tube?Every 12 hours Betamethasone Topical (betamethasone topical dipropionate 0.05% ointment)?1?haris?Topically?Daily Bisacodyl (Dulcolax 10 mg rectal suppository)?1?suppository(ies)?10?Milligram?Rectall y?Daily?as needed?as needed for constipation Ceftriaxone (ceftriaxone 1 gm injectable powder for injection)?1?gram?Intramuscular?Daily?Mix with 2.1ml Lidocaine 1% Chlorhexidine Topical (Chlorhexidine 0.12% Liquid)?15?Milliliter?By Mouth?2 times a day Cholecalciferol (cholecalciferol 50,000 intl units oral capsule)?1?capsule?1,250?Microgram?G Tube?Every 30 days?monthly on the Collagenase Topical (collagenase topical 250 u/gm ointment)?1?haris?Topically?2 times a day Docusate-Senna (docusate-senna 50 mg-8.6 mg oral capsule)?1?capsule?G Tube?2 times a day Doxazosin (doxazosin 1 mg oral tablet)?1?Milligram?1?tablet?G Tube?Daily Ferrous Sulfate (ferrous sulfate 300 mg/5 ml oral liquid)?5?Milliliter?300?Milligram?G Tube?Daily Finasteride (finasteride 5 mg oral tablet)?1?tab(s)?5?Milligram?G Tube?Daily Glycopyrrolate (glycopyrrolate 1 mg oral tablet)?1?Milligram?1?tablet?G Tube?Every 8 hours?for 10?Days Guaifenesin?10?Milliliter?G Tube?Every 4 hours?as needed?Cough?200mg/10ml Ibuprofen (ibuprofen 400 mg oral tablet)?400?Milligram?1?tablet?G Tube?Every 4 hours?as needed?Pain , Moderate Lacosamide (lacosamide 200 mg oral tablet)?1?tab(s)?200?Milligram?G Tube?Every 12hours Lactobacillus Acidophilus (lactobacillus acidophilus oral capsule)?1?capsule?G Tube?Every 12 hours Leucovorin (leucovorin 25 mg oral tablet)?1?tab(s)?25?Milligram?G Tube?Daily at bedtime Loperamide (loperamide 2 mg oral capsule)?2?Milligram?1?capsule?G Tube?Every 4 hours?as needed?as needed for loose stool Lorazepam (Lorazepam 2 mg/ml injectable)?2?Milligram?Intramuscular?Once?as needed?Seizure Activity Melatonin (melatonin 3 mg oral tablet)?1?tab(s)?3?Milligram?G Tube?Daily at bedtime Midodrine (midodrine 5 mg oral tablet)?7.5?Milligram?1.5?tablet?G Tube?Every 8 hours Milk of Magnesia (Milk of Magnesia Liquid)?30?Milliliter?G Tube?Daily?as needed?as needed for constipation Morphine (morphine 10 mg/5 mL oral solution)?2.5?Milliliter?5?Milligram?G Tube?Every 6 hours?as needed?Pain , Severe Omeprazole (omeprazole 2mg/1 mL suspension (compounded))?10?Milliliter?20?Milligram?G Tube?Daily?Compound a concentration of 2 mg/mL suspension; open 20 of 20 mg capsules; crush;add 200 mL sodium bicarbonate 8.4%; Final volume 200 mL. Auxiliary labels: Refrigerate; Shake Well.Expiration: 45 days Ondansetron (ondansetron 4 mg oral tablet)?1?tab(s)?4?Milligram?G Tube?Every 4 hours?as needed?Nausea & Vomiting Ondansetron (ondansetron 2 mg/mL injectable solution)?4?Milligram?Intramuscular?Every 4hours?as needed?as needed for nausea/vomiting Oxycodone (oxyCODONE 5 mg oral tablet)?5?Milligram?1?tablet?G Tube?Every 6 hours?as needed?Pain , Moderate Pyrimethamine (pyrimethamine 25 mg oral tablet)?2?tab(s)?50?Milligram?G Tube?Every week Scopolamine (scopolamine 1 mg/72 hr transdermal film, extended release)?1?Film?Topically?Every 72 hours Sodium Biphosphate-Sodium Phosphate (Fleet Enema 19 gm-7 gm rectal enema)?133?Milliliter?Rectally?Once?as needed?as needed for constipation Zinc Sulfate (zinc sulfate 220 mg oral capsule)?220?Milligram?1?capsule?G Tube?Daily at bedtime ? Inpatient Medications Medications (17) Active SCHEDULED: (17) Ascorbic Acid 250 mg Tablet (ascorbic acid 250 mg oral tablet) ??250 mg, G Tube, Daily Atovaquone 150 mg/mL Suspension (Atovaquone Liquid) ??750 mg 5 mL, G Tube, 2 times a day with meals Collagenase Topical Oint (30 Gm) (Collagenase Topical Oint) ??1 application, Topically, Daily Doxazosin 1 mg Tablet (doxazosin 1 mg oral tablet) ??1 mg, G Tube, Daily Ferrous Sulfate 325 mg EC Tablet (ferrous sulfate 325 mg oral enteric coated tablet) ??325 mg, By Mouth, Daily Finasteride 5 mg Tablet (finasteride 5 mg oral tablet) ??5 mg, G Tube, Daily Glycopyrrolate 0.2 mg/mL Inj (1mL) (Glycopyrrolate Inj) ??0.2 mg, IV Push, Every 8 hours Lacosamide 100 mg Tablet (Lacosamide Tablet) ??200 mg, By Mouth, 2 times a day Leucovorin 5 mg Tablet (leucovorin 5 mg oral tablet) ??25 mg, G Tube, Daily at bedtime Melatonin 3 mg Tablet (Melatonin Tablet) ??3 mg, G Tube, Daily at bedtime Midodrine 5 mg Tablet (midodrine 5 mg oral tablet) ??7.5 mg, G Tube, Every 8 hours Pantoprazole 40 mg EC Tablet (pantoprazole 40 mg oral delayed release tablet) ??40 mg, By Mouth, Daily Remove Patch (Remove ??Patch) ??1 each, Topically, Every 72 hours Saccharomyces Boulardii Lyo 250 mg Caps (Florastor 250 mg oral capsule) ??250 mg, By Mouth, 2 timesa day Scopolamine 1 mg Patch ??1 mg 1 each, Topically, Every 72 hours Senna 8.6 mg / Docusate 50 mg tablet (docusate-senna 50 mg-8.6 mg oral capsule) ??1 capsule, G Tube, 2 times a day Zinc Sulfate 220 mg Capsule (zinc sulfate 220 mg oral capsule) ??220 mg, G Tube, Daily CONTINUOUS: (0) PRN: (0) ? Results Recent Labs BLOOD COUNT & DIFF WBC 5.1 k/mm3 ()?? 10/20/2022 10:31 RBC 3.97 m/mm3 (Low)?? 10/20/2022 10:31 Hgb 10.9 Gm/dL (Low)?? 10/20/2022 10:31 Hct 36.2 % (Low)?? 10/20/2022 10:31 MCV 91.2 femtoliters ()?? 10/20/2022 10:31 MCH 27.5 pg ()?? 10/20/2022 10:31 MCHC 30.1 g/dL (Low)?? 10/20/2022 10:31 Platelet Count 143 k/mm3 (Low)?? 10/20/2022 10:31 RDW-SD 66.9 femtoliters (High)?? 10/20/2022 10:31 MPV 10.8 femtoliters ()?? 10/20/2022 10:31 Nucleated RBC (Automated) 0.0 #/100 WBC'S ()?? 10/20/2022 10:31 Abs. NRBC 0.0 k/mm3 ()?? 10/20/2022 10:31 Abs. Neut 3.4 k/mm3 ()?? 10/20/2022 10:31 Abs. Lymph 1.0 k/mm3 ()?? 10/20/2022 10:31 Abs. Hamlin 0.7 k/mm3 ()?? 10/20/2022 10:31 Abs. Eo 0.0 k/mm3 ()?? 10/20/2022 10:31 Abs. Baso 0.0 k/mm3 ()?? 10/20/2022 10:31 Neut % 65.9 % ()?? 10/20/2022 10:31 Lymph % 19.3 % ()?? 10/20/2022 10:31 Hamlin % 13.8 % (High)?? 10/20/2022 10:31 Eos % 0.4 % ()?? 10/20/2022 10:31 Baso % 0.2 % ()?? 10/20/2022 10:31 Imm Gran 0.4 % ()?? 10/20/2022 10:31 Abs. Imm Gran 0.0 k/mm3 ()?? 10/20/2022 10:31 ?? CHEM GENERAL Sodium 139 mmol/L ()?? 10/20/2022 10:34 Potassium HEMOLYZED mmol/L ()?? 10/20/2022 10:34 Chloride 97 mmol/L (Low)?? 10/20/2022 10:34 Bicarbonate Level 32 mmol/L (High)?? 10/20/2022 10:34 Anion Gap 10 ()?? 10/20/2022 10:34 Glucose Level 95 mg/dL ()?? 10/20/2022 10:34 Glucose, POC 109 mg/dL (High)?? 10/20/2022 10:09 BUN 27 mg/dL (High)?? 10/20/2022 10:34 Creatinine-Blood 0.9 mg/dL ()?? 10/20/2022 10:34 Estimated GFR Creatinine 103 ML/MIN/1.73 M2 ()?? 10/20/2022 10:34 Calcium 8.8 mg/dL ()?? 10/20/2022 10:34 Protein, Total 6.7 Gm/dL ()?? 10/20/2022 10:34 Albumin 3.7 Gm/dL ()?? 10/20/2022 10:34 AG Ratio 1.2 ()?? 10/20/2022 10:34 Alkaline Phosphatase 204 units/L (High)?? 10/20/2022 10:34 Lipase 42 units/L ()?? 10/20/2022 10:34 AST (SGOT) HEMOLYZED units/L ()?? 10/20/2022 10:34 ALT (SGPT) 119 units/L (High)?? 10/20/2022 10:34 Bilirubin, Total 0.2 mg/dL ()?? 10/20/2022 10:34 Lactate 1.7 mmol/L ()?? 10/20/2022 10:34 ?? VIROLOGY Influenza A PCR NEGATIVE ()?? 10/20/2022 10:54 Influenza B PCR NEGATIVE ()?? 10/20/2022 10:54 RSV PCR POSITIVE (Abnormal)?? 10/20/2022 10:54 COVID-19 PCR Specimen Source NASAL ()?? 10/20/2022 10:54 COVID-19 PCR Result NEGATIVE ()?? 10/20/2022 10:54 ? * Smita Stewart DO: PERFORM Event Display: Admission Note Authored Date: I have seen and evaluated this patient. ??I have discussed the case and its management with the resident and agree with the findings and plan as documented in the resident???s note. EKG study * Event Display: EKG Authored Date: * Event Display: ECG 12-Lead Authored Date: Please click on pdf link to open report * Event Display: ECG 12-Lead Authored Date: Ventricular Rate: 119 BPM Atrial Rate: 119 BPM P-R Interval: 124 ms QRS Duration: 66 ms Q-T Interval: 350 ms QTC Calculation(Bazett): 492 ms P Mcfaddin: 78 degrees R Mcfaddin: 33 degrees T Mcfaddin: 65 degrees Sinus tachycardia Otherwise normal ECG When compared with ECG of 20-OCT-2022 10:47, No significant change was found Confirmed by HUI JIMENEZ ([id number]) on 10/26/2022 11:32:31 AM [place]: HUI JIMENEZ * Event Display: ECG 12-Lead Authored Date: [id number] Please click on pdf link to open report * Event Display: ECG 12-Lead Authored Date: Ventricular Rate: 100 BPM Atrial Rate: 100 BPM P-R Interval: 148 ms QRS Duration: 70 ms Q-T Interval: 366 ms QTC Calculation(Bazett): 472 ms P Mcfaddin: 48 degrees R Mcfaddin: 2 degrees T Mcfaddin: 57 degrees Normal sinus rhythm Normal ECG When compared with ECG of 10-JUN-2021 10:36, Questionable change in QRS axis Confirmed by KENYETTA WETZEL ([id number]) on 10/20/2022 12:52:21 PM [place]: KENYETTA WETZEL Hospital Progress note * Vega Min RN: VERIFY, PERFORM, SIGN Event Display: Progress Note Hospital Authored Date: [id number] Patient: MARINO HALE Age: 52 years Sex: Male : 1970 Associated Diagnoses: None Author: Vega Min RN Findings Problem Related to Alteration in Respiratory Function (new) : Alteration in Respiratory Function/new 12/12/2022 9:00 EDT Alteration in Resp Status Related to Failure to Wean, Pneumonia Goals & Outcomes, Respiratory Pt will maintain/resume baseline physical assessment, Pt will maintain adequate nutritional intake, Pt will maintain/resume normal fluid/electrolyte balance, Pt willnot develop complications r/t immobility Interventions, Respiratory Assess/monitor tolerance to IV infusions; verify rate/dose, Assess for and report S&S of respiratory distress, Initiate VAP prevention strategies, Position for comfort & optimal oxygenation, Chest tube drainage, maintain drainage/suction as ordered, Initiate pulmonary rehab nurse consult, Monitor sputum color & consistency. Report changes to MD, Teach/encourage use of incentive spirometer, Teach the proper use of inhalers, Teach Pt/caregiver Smoking cessation education, Teach purse lip breathing as needed for breathing retraining, Teach tripod positioning to promote air exchange BH Goals/Interventions, Respiratory Yes Respiratory, Problem Start 10/21/2022 23:00 Reviewed Plan with, Respiratory Patient Patient Progression, Respiratory Patient progressing according to plan . Nursing Data Cardiac Data. : Cardiac Data. 12/12/2022 17:00 EDT Cardiac Rhythm Normal sinus rhythm 12/12/2022 16:00 EDT Cardiovascular Assessment Status Unchanged from recorder's assessment 12/12/2022 15:00 EDT Cardiac Rhythm Normal sinus rhythm 12/12/2022 13:00 EDT Cardiac Rhythm Normal sinus rhythm 12/12/2022 12:00 EDT Cardiovascular Assessment Status Unchanged from recorder's assessment 12/12/2022 11:00 EDT Cardiac Rhythm Normal sinus rhythm 12/12/2022 10:38 EDT Cardiovascular Not Done: Task Duplication (Not Done) 12/12/2022 9:00 EDT Cardiac Rhythm Normal sinus rhythm, Sinus tachycardia 12/12/2022 8:00 EDT Anterior Tibial Pulse, Left Normal Anterior Tibial Pulse, Right Normal Cardiovascular Symptoms None Nail Bed Color, Fingers Dorrance Nail Bed Color, Toes Dorrance Clubbing Present No Skin Temperature Upper Extremities Warm Skin Temperature Lower Extremities Warm Heart Sounds S1, S2 Heart Rhythm Regular Pacemaker No Monitoring Lead II, V5/MCL5 Atrial Rhythm Regular Ventricular Rhythm Regular Cardiac Rhythm Normal sinus rhythm, Sinus tachycardia Capillary Refill < 3 seconds Radial Pulse, Left Normal Radial Pulse, Right Normal Posttibial Pulse, Left Normal Posttibial Pulse, Right Normal Dorsalis Pedis Pulse, Left Normal Dorsalis Pedis Pulse, Right Normal Edema None AV fistula No Cardiovascular WNL except . Gastrointestinal Data. : Gastrointestinal Data. 12/12/2022 16:00 EDT Gastrointestinal Assessment Status Unchanged from recorder's assessment 12/12/2022 12:00 EDT Gastrointestinal Assessment Status Unchanged from recorder's assessment 12/12/2022 10:38 EDT GI Not Done: Task Duplication (Not Done) 12/12/2022 8:00 EDT Gastrointestinal Symptoms Diarrhea Abdomen Flat, Soft, Non-tender Emesis Description None Bowel Sounds All Quadrants Present Last Bowel Movement 12/12/2022 Passing Flatus Yes Gastric tube present Yes Stool Management System Irrigated Gastric Tube Type Peg tube Gastric Tube Site Intact, well healed without redness or drainage Gastric Tube Activity Irrigated with water Tube Feeding Status Infusing at goal GI WNL except . Genitourinary Data. : Genitourinary Data. 12/12/2022 16:00 EDT Genitourinary Assessment Status Unchanged from recorder's assessment 12/12/2022 12:00 EDT Genitourinary Assessment Status Unchanged from recorder's assessment 12/12/2022 10:38 EDT Not Done: Task Duplication (Not Done) Indication for Urinary Catheter Not Done: Task Duplication (Not Done) 12/12/2022 8:00 EDT Bladder distention Absent Urinary catheter type Single Lumen Indwelling Urinary Catheter Urinary catheter intervention Patent, no intervention Date of Insertion 12/05/2022 Urine Color Yellow Urine Description Clear WNL except Indication for Urinary Catheter Required prolonged immobilization . HEENT Data. : HEENT Assessment 12/12/2022 16:00 EDT HEENT Assessment Status, Adult Unchanged from recorder's assessment 12/12/2022 12:00 EDT HEENT Assessment Status, Adult Unchanged from recorder's assessment 12/12/2022 10:38 EDT HEENT, Adult Not Done: Task Duplication (Not Done) 12/12/2022 8:00 EDT HEENT, Adult WNL except Voice, Adult Absent . Integumentary Data. : Integumentary Data. 12/12/2022 16:00 EDT Integumentary Assessment Status Unchanged from recorder's assessment 12/12/2022 12:00 EDT Integumentary Assessment Status Unchanged from recorder's assessment 12/12/2022 10:38 EDT Sensory Perception Not Done: Task Duplication (Not Done) Moisture Not Done: Task Duplication (Not Done) Activity Not Done: Task Duplication (Not Done) Mobility Not Done: Task Duplication (Not Done) Nutrition Not Done: Task Duplication (Not Done) Friction and Shear Not Done: Task Duplication (Not Done) Nursing Care Plan initiated/updated Not Done: Task Duplication (Not Done) Integumentary Not Done: Task Duplication (Not Done) 12/12/2022 8:00 EDT Skin Color Normal for ethnicity Skin Description Dry Skin Temperature Warm Skin Integrity Not intact Skin Turgor Elastic Mucous Membrane Color Dorrance Mucous Membrane Description Dry Sensory Perception No impairment Moisture Constantly moist Activity Bedfast Mobility Completely limited Nutrition Adequate Friction and Shear Problem Cornelio Score 11 Nursing Care Plan initiated/updated Yes Integumentary WNL except . Musculoskeletal Data. : Musculoskeletal Data. 12/12/2022 16:00 EDT Musculoskeletal Assessment Status Unchanged from recorder's assessment 12/12/2022 12:00 EDT Musculoskeletal Assessment Status Unchanged from recorder's assessment 12/12/2022 10:38 EDT Musculoskeletal Not Done: Task Duplication (Not Done) 12/12/2022 8:00 EDT Range of Motion Description Passive . Neurological Data. : Neurological Data. 12/12/2022 16:00 EDT Neurological Assessment Status Unchanged from recorder's assessment Adams Agitation Sedation Scale (RASS) -1 Drowsy Pain Intensity 0 12/12/2022 14:00 EDT Adams Agitation Sedation Scale (RASS) 0 Alert and calm Pain Intensity 0 12/12/2022 12:00 EDT Neurological Assessment Status Unchanged from recorder's assessment Adams Agitation Sedation Scale (RASS) 0 Alert and calm Pain Intensity 0 12/12/2022 10:38 EDT Neuro Not Done: Task Duplication (Not Done) 12/12/2022 10:00 EDT Adams Agitation Sedation Scale (RASS) 0 Alert and calm 12/12/2022 9:00 EDT Pain Intensity 0 12/12/2022 8:00 EDT Tongue Disposition Midline Neurological Symptoms Alteration in speech quality, Lack of coordination, Muscle rigidity Level of Consciousness Full Consciousness Orientated to person, place, time Person Facial Symmetry Symmetric Characteristics of Speech Nonverbal Gag Reflex Assessment Gag reflex present Shoulder Shrug Yes PERRLA Yes Pupil description, left Regular, Round Pupil description, right Regular, Round Pupil reaction, left Brisk Pupil reaction, right Brisk Pupil Size, Left 3 mm Pupil Size, Right 3 mm Paralysis Quadraplegia Strength LUE 1-Trace movement Strength RUE 4-Active movement against gravity & some resistance Strength LLE 1-Trace movement Strength RLE 1-Trace movement Tone LUE Rigid Tone RUE Normal Tone LLE Rigid Tone RLE Rigid Sensation all four extremities Intact Movement LUE Absent Movement RUE Spontaneous Movement LLE Absent Movement RLE Absent Gait Unable to assess Tremors None Seizures No seizure activity noted Response Eye Opening Spontaneously Motor Response-Adult Obeys commands Verbal Response-Adult No response Melva Coma Score 11 Response To Stimuli Affected By Intubation Adams Agitation Sedation Scale (RASS) 0 Alert and calm Neuro WNL except Activity, Adult Sedation Moves 4 extremities voluntarily or on command Eyes and Movements Conjugate gaze: Move in same direction at same speed Memory Unable to assess . Respiratory/Pulmonary Data. 12/12/2022 17:00 EDT FiO2 28 % Mode of Delivery (Oxygen) T-Piece 12/12/2022 16:00 EDT Respiratory Assessment Status Unchanged from recorder's assessment 12/12/2022 15:49 EDT Treatment Given Updraft Nebulizer Therapy/MDI Mode of delivery (treatment) Trach mask Patient reactions None Patient tolerance Good Patient tolerance Good Area(s) of concentration All lobes Duration/minutes 15 minutes Modality (CPT) Via bed Sputum Amount Large Sputum Color Clear, White Sputum Consistency Thin 12/12/2022 15:00 EDT FiO2 28 % Mode of Delivery (Oxygen) T-Piece 12/12/2022 13:00 EDT FiO2 28 % Mode of Delivery (Oxygen) T-Piece 12/12/2022 12:00 EDT Respiratory Assessment Status Unchanged from recorder's assessment 12/12/2022 11:00 EDT FiO2 28 % Mode of Delivery (Oxygen) T-Piece 12/12/2022 10:38 EDT Respiratory Treatment(s) Not Done: Task Duplication (Not Done) Respiratory Not Done: Task Duplication (Not Done) 12/12/2022 9:00 EDT FiO2 28 % Mode of Delivery (Oxygen) T-Piece 12/12/2022 8:42 EDT FiO2 28 % Respiratory Symptoms None Respiratory effort Unlabored Chest expansion Symmetrical Accessory Muscles use No Spare trach at bedside Yes Tracheostomy size 6.0 Trach Airway Type Eda Trach Cuff Assessment Other: cuffless Stoma Site Description, Trach skin intact Ambu in Room Yes Mask in Room Yes PEEP Valve in Room Yes Respiratory pattern Regular Right Upper Lobe Breath Sounds Rhonchi All Lobes Breath Sounds Rhonchi Respiratory distress None 12/12/2022 8:27 EDT Treatment Given Updraft Nebulizer Therapy/MDI Mode of delivery (treatment) Trach mask Patient reactions None Patient tolerance Good Area(s) of concentration All lobes Duration/minutes 15 minutes Modality (CPT) Via bed 12/12/2022 8:00 EDT Tracheal Position Midline Crepitus present No Cough Strong, Able to clear secretion Respiratory Treatment(s) Suctioned Tracheostomy/tracheal device present Yes Respiratory WNL except . Evaluation P: Plan of Care I: Interventions per Plan of Care E: Mr. Kiah Marin is A/O to self , nonverbal @baseline, moves RUE only @baseline all other extrmemities contracted @baseline, PERRLA+, cough/gag+, remains afebrile. VSS on midodrine @baseline. Pt. tolerating trach mask 28% FiO2 per O2 sats, copious thin clear secretions requiring Q4 suctioning. Pt. tolerating tube feeds @ goal rate PEG tube CDI. Pt. voiding CYU via rubio. All skin care completed this shift as ordered. Reference CIS for assessments and lab/diagnostic results. Reference interactive flowsheets for vitals. Reference CIS for meds given. . * Jack MAHMOOD, Kirill: PERFORM Event Display: Progress Note Hospital Authored Date: [id number] Patient: ??MARINO HALE ? Age:??52 Years?Sex:??Male?:??1970?? Subjective ?? Mr. Mo is our extremely unfortunate??52 y.o. gentleman??with a h.o. 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??GERD, BPH, anemia of chronic disease, h.o. COVID-19 (+) infection (09/2022), chronic decubitus ulcers, who was transferred from [facility]to [facility] ([facility]) in 09/2022, where he has been residing since, admitted on 10/20/2022 from [facility] with [id number] hypoxic respiratory failure /??worsening secretions / (+) RSV / (+) COVID-19 /??superimposed bacterial pneumonia. s/p IR-guided G-tube exchange (11/16/2022 KRISTIN Tucker) Currently * Essentially at baseline in terms of mentation, eyes open / non-verbal, wearing a??T-piece at 28% FiO2 Awaiting transfer back to [facility]:??apparently, because he has been here so long (53 days so far) he is no longer a bed hold, this counts as a completely new admission, they have??to go for insurance approval and await a bed. The earliest they expect they can take him is Tuesday (12/13/2022). * Afebrile * No new bloodwork today (we are doing M-W-F at this juncture) *??I spoke at length??on the phone with??his HCP, Mr. Shields Johnson (his??[facility]. Cornelius's is Marino's sister),??all questions answered. [phone] Of note, we did discuss code status: he is, and has always??been full code: Cornelius says that [place] communicate with his finger and?? he has always said he wants to be full code and they respect his wishes The documentation from [facility] also has him as a full code. ?? Review of Systems Unobtainable due to baseline neurologic status Objective Vital Signs?? Temperature: 98 DegF (12/12/22 07:00:00) Temperature Route: Axillary (12/12/22 07:00:00) Pulse Rate:??95 bpm??High (12/12/22 07:00:00) Heart Rate Monitored:??98 bpm??High (12/12/22 06:00:00) Respiratory Rate: 21 br/min (12/12/22 07:00:00) Systolic Blood Pressure: 101 mm Hg (12/12/22 07:00:00) Diastolic Blood Pressure: 76 mm Hg (12/12/22 07:00:00) Blood pressure sites: Arm, left (12/12/22 07:00:00) Pulse Pressure: 25 mm Hg (12/12/22 07:00:00) Oxygen Saturation: 97 % (12/12/22 07:00:00) Mode of Delivery (Oxygen): T-Piece (12/12/22 07:00:00) FiO2: 28 % (12/12/22 04:00:00) Early Warning Score: 2 (12/12/22 07:49:03) ?? Physical Exam Afebrile, Tmax = 98.1 F, HR = 95', BP =??101 / 76 Normocephalic, KASI, no thrush Tracheostomy in place, on a??T-piece at 28% FiO2 Clear chest to auscultation, few scattered rhonchi / secretions S1 / S2 no murmur Mermentau abdomen, no rebound, G-tube in place, site OK LEs (-) for edema.?? Neurologically??with sequelae of DIP GUIDER STOVES Toxoplasmosis, spastic quadriparesis, bedridden, non-verbal _ _ Inpatient Medications Medications (23) Active SCHEDULED: (18) Acetylcysteine 10% Inhalation Solution (Mucomyst-10 Inhalation Solution) ??2 mL, Neb, Every 6 hours Ascorbic Acid 250 mg Tablet (ascorbic acid 250 mg oral tablet) ??250 mg, G Tube, Daily Collagenase Topical Oint (30 Gm) (Collagenase Topical Oint) ??1 application, Topically, Daily Doxazosin 1 mg Tablet (doxazosin 1 mg oral tablet) ??1 mg, G Tube, Daily Enoxaparin 40 mg Inj (Enoxaparin Inj) ??40 mg 0.4 mL, Subcutaneous Injection, Daily Ferrous Sulfate 60 mg/mL Liquid UD (Ferrous Sulfate 60 mg/mL Liquid ( 12 mg/1ml Elemental Iron)) ??325 mg 5.42 mL, G Tube, Daily Finasteride 5 mg Tablet (finasteride 5 mg oral tablet) ??5 mg, G Tube, Daily Heparin Lock Flush 50 units / 5 mL (Heparin Flush 10 units/mL Inj) ??50 units 5 mL, IV Push, Daily Lacosamide 50mg/5 mL Oral Syringe (Lacosamide Liquid) ??200 mg 20 mL, G Tube, Every 12 hours Lansoprazole 30 mg OD Tablet (Lansoprazole OD Tablet) ??30 mg, G Tube, Daily Midodrine 5 mg Tablet (midodrine 5 mg oral tablet) ??7.5 mg, G Tube, Every 8 hours NaCl 0.9% Flush 3ml (NaCL 0.9% Flush) ??5 mL, IV Push, Daily Remove Patch (Remove ??Patch) ??1 each, Topically, Every 72 hours Saccharomyces Boulardii Lyo 250 mg Caps (Florastor 250 mg oral capsule) ??250 mg, G Tube, 2 times aday Senna 8.6 mg / Docusate 50 mg tablet (docusate-senna 50 mg-8.6 mg oral capsule) ??1 capsule, G Tube, 2 times a day Silver dressing gel (44.4mL) (SilvaSorb) ??1 application, Topically, Daily Sulfamethoxazole 800 mg/Trimethoprim 160 mg Tablet (Sulfamethoxazole 800mg/Trimethoprim 160 mg Tablet) ??1 tablet, G Tube, Daily at bedtime Vashe Wound Care Emollient/Cleanser (Vashe Topical Solution) ??475 mL, Topically, Every other day CONTINUOUS: (0) PRN: (5) Acetaminophen 325 mg Tablet (acetaminophen 325 mg oral tablet) ??650 mg, G Tube, Every 6 hours Albuterol 0.083% Inhalation Solution (Albuterol 0.083% inhalation jeri) ??2.5 mg 3 mL, BAND Nebulizer, Every 6 hours Heparin Lock Flush 50 units / 5 mL (Heparin Flush 10 units/mL Inj) ??50 units 5 mL, IV Push, Every hour NaCl 0.9% Flush 3ml (NaCL 0.9% Flush) ??5 mL, IV Push, Every hour Vashe Wound Care Emollient/Cleanser (Vashe Topical Solution) ??475 mL, Topically, Daily ? Assessment/Plan ? Acute on chronic respiratory failure with hypoxia (J96.01):??. RSV (respiratory syncytial virus pneumonia) (J12.1):??. Superimposed bacterial pneumonia (J15.9):??. Sepsis due to COVID-19 (U07.1):??. 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 Completed a course of IV cefepime (end-date = 2022) Plan: * Now observing off antimicrobials * Proactive care of tracheostomy / proactive O2 supplementation to keep O2 sats > 90% * Proactive secretion management / pulmonary toilette / suctioning * Hopefully back to [facility] as soon as the logistics are sorted out (apparently for Tuesday12/13/2022) ?? 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 H.o. Mantle cell lymphoma (C83.10):??. 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 Seizure disorder (G40.909):??. Autonomic dysfunction (G90.9):??. Hypotension (I95.9):??. Nonverbal (R47.01):??. Bedridden (Z74.01):??. Gastrostomy status (Z93.1):? Proactive G-tube care & tube feeds at goal On lacosamide for seizures On midodrine for BP On chronic TMP-SMX for Toxoplasmosis suppressive therapy ?? Normocytic anemia (D64.9):? Multifactorial from chronic illness / nutrition / chronic blood loss from wounds closely monitor CBC and transfuse accordingly ?? GERD (gastroesophageal reflux disease) (K21.9):? On PPI ?? BPH (benign prostatic hyperplasia) (N40.0):? On finasteride + doxazosin ?? Sacral decubitus ulcer, stage IV (L89.154):??. Decubitus ulcer of left ischium, stage 3 (L89.323):??. Decubitus ulcer of left ischium, unstageable (L89.320):??. Decubitus ulcer of right ischium, stage 3 (L89.313):??. Pressure injury of deep tissue of left foot (L89.896):??. Pressure injury of deep tissue of right foot (L89.896):??. Pressure ulcer of left buttock, stage 2 (L89.322):??. Pressure ulcer of left heel, unstageable (L89.620):??. Pressure ulcer of right ankle, unstageable (L89.510):??. Ulcer of penis (N48.5):? Proactive skin & wound care Proactive pressure off-loading and position changes ?? VTE Prophylaxis:? On SC enoxaparin ?? Ongoing Medical Necessity:? Agcul-fg-kqcqwzv hypoxic respiratory failure / worsening secretions / (+) RSV / (+) COVID-19 / superimposed bacterial pneumonia. ?? Discharge Planning:? Back to [facility] as soon as the logistics are sorted out (apparently for Tuesday12/13/2022) ? * Robert Cordova RN: PERFORM, SIGN, VERIFY Event Display: Progress Note Hospital Authored Date: [id number] Patient: MARINO HALE Age: 52 years Sex: Male : 1970 Associated Diagnoses: None Author: Robert Cordova RN Findings Problem Related to Alteration in Neurological : Alteration in Neurological Function/new 12/11/2022 16:00 EDT Alteration in Neuro status Related to Other: Goals & Outcomes, Neurological Lab studies/diagnostic tests within pt specific limits, Pt is safe with transfers & activities, Pt will be discharged without infection, Pt will be hemodynamically stable, Pt will be Neurologically stable Interventions, Neurological Elevate HOB & keep head midline in sniffing position Goals/Interventions, Neurological Yes Neurological, Problem Start 12/11/2022 12:59 Reviewed plan with, Neurological Patient, Family/caregiver not available Patient Progression, Neurological Pt progressing according to plan . Alteration in Respiratory Function (new) : Alteration in Respiratory Function/new 12/11/2022 16:00 EDT Alteration in Resp Status Related to Failure to Wean, Pneumonia, Other: Pseudomonias Goals & Outcomes, Respiratory Pt will maintain/resume baseline physical assessment, Pt will maintain adequate nutritional intake, Pt will maintain/resume normal fluid/electrolyte balance, Pt willnot develop complications r/t immobility Interventions, Respiratory Assess/monitor tolerance to IV infusions; verify rate/dose, Assess for and report S&S of respiratory distress, Initiate VAP prevention strategies, Position for comfort & optimal oxygenation Goals/Interventions, Respiratory Yes Respiratory, Problem Start 10/21/2022 23:00 Reviewed Plan with, Respiratory Patient Patient Progression, Respiratory Patient progressing according to plan . Narrative/Incidental 52 year male who is profoundly compromised and contracted. Remains on trach collar and tube feed. Suctioned fairly frequent. . CT Lower extremity - left W contrast IV * [facility] , CIS S: TRANSCRIBE Jose Angel Leiva MD: VERIFY Event Display: Result: Authored Date: CT Ext Lower W/ Contrast Left Reason: Infection; Clinical Question(s): Hip; TECHNIQUE: Helical CT with contrast formatted in 3 planes. 100 cc of Omnipaque 300 was administeredintravenously. Weight-based protocol using automatic tube modulation was used to optimize exposure parameters. CTDIvol Body: 6.60 mGy, DLP Body: 200 mGy*cm. COMPARISONS: PET/CT 06/09/2020. FINDINGS: Bones and joints: No fractures or focal osseous lesions are seen. There is contracture at the hips bilaterally. Soft Tissues: There is hyperdense material along a deep decubitus ulcer lateral to the greater trochanter, likely medicinal products. There is no evidence of a focal fluid collection. The decubitus extends towards the lesser trochanter, however does not appear to abut the cortex. There is an apparent Rubio catheter in place with a moderate amount of air in the urinary bladder. There is a rectal tube in place as well. IMPRESSION: No acute osseous abnormalities. No focal fluid collection or joint effusion to suggest an abscess or septic arthritis. Urinary bladder catheter with a moderate amount of air in the urinary bladder. Clinical and laboratory correlation for infection recommended. WSN: [id number] Ordering Physician: Hoa Ball Dictated By: Jose Angel Leiva MD Dictated Date/Time: 11/16/22 11:11 a Reviewed By: Jose Angel Leiva MD Signed By: Jose Angel Leiva MD Signed Date/Time: 11/16/22 11:11 am Transcribed By: RENETTA Transcribed Date/Time: 11/16/22 11:02 am Portable XR Chest Views * Edward , CIS S: TRANSCRIMeir Marquez MD: VERIFY Event Display: Result: Authored Date: [id number] Chest Portable Reason: Fever; Clinical Question(s): Pneumonia COMPARISON: 11/11/2022 FINDINGS: LINES AND TUBES: Tracheostomy tube tip 5 cm above the edmund. LUNGS AND PLEURA: Subtle left base opacity. Possible pneumonia. Similar, likely worse findings seen on CT scan 10/20/2022. No pleural effusion. No pneumothorax. HEART, MEDIASTINUM AND ROBERT: Heart is normal in size. Normal mediastinal and hilar contour. BONES AND SOFT TISSUES: No acute abnormality. IMPRESSION: Mild residual left base opacity improved compared to CT scan 10/20/2022. WSN: [id number] Ordering Physician: Calin Franco Dictated By: Meir Agudelo MD Dictated Date/Time: 11/19/22 10:37 p Reviewed By: Meir Agudelo MD Signed By: Meir Agudelo MD Signed Date/Time: 11/19/22 10:37 pm Transcribed By: RENETTA Transcribed Date/Time: 11/19/22 10:34 pm * [facility] , CIS S: TRANSCRIBE Maximus Cortez MD: VERIFY Event Display: Result: Authored Date: [id number] Chest Portable semiupright at 8:30 AM Reason: Shortness of Breath; Clinical Question(s): Pneumonia COMPARISON: Multiple priors most recently 10/31/2022 FINDINGS: LINES AND TUBES: Tracheostomy tube remains in similar position. LUNGS AND PLEURA: There is once again seen asymmetric increased markings in the left lower hemithorax, there having been more semi confluent opacity here on study from 3 10/20/2022. Elsewhere lungs are clear. No vascular congestion. No pleural effusion. No pneumothorax. HEART, MEDIASTINUM AND ROBERT: Heart is normal in size. Normal mediastinal and hilar contour. BONES AND SOFT TISSUES: No acute abnormality. IMPRESSION: Persistent asymmetric increased markings in the left lower lobe, which could either represent residual scarring/fibrosis from the patient's more pronounced earlier pneumonia or ongoing inflammation here. WSN: [id number] Ordering Physician: Calin Franco Dictated By: Maximus Cortez MD Dictated Date/Time: 11/11/22 1:05 pm Reviewed By: Maximus Cortez MD Signed By: Maximus Cortez MD Signed Date/Time: 11/11/22 1:05 pm Transcribed By: RENETTA Transcribed Date/Time: 11/11/22 12:56 pm * STEPHANIE Leon S: José Miguel Aguirre MD: VERIFY Event Display: Result: Authored Date: [id number] AP semiupright portable chest dated October 31, 2022 at 0122 hours. Comparison films are from October 28 and October 26, 2022. HISTORY: Increasing oxygen requirement. FINDINGS: The cardiac silhouette is within normal limits for size. Mural calcifications are presentin the aorta. A tracheostomy tube is present with its tip 7.4 cm proximal to the edmund. There is elevation of left diaphragm and opacity at the left lung base consistent with atelectasis or pneumonia. The right lung is clear. Degenerative changes are noted in the spine. IMPRESSION: Worsening infiltrate at the left lung base consistent with atelectasis or pneumonia. Improving aeration in the right upper lung. Examination 30361. Thank you for allowing me to participate in the care of this patient. WSN: [id number] Ordering Physician: Alexa Vazquez Dictated By: José Miguel Paredes MD Dictated Date/Time: 10/31/22 10:00 a Reviewed By: José Miguel Paredes MD Signed By: José Miguel Paredes MD Signed Date/Time: 10/31/22 10:00 am Transcribed By: RENETTA Transcribed Date/Time: 10/31/22 10:00 am * STEPHANIE Leon S: Talat Morel MD W: VERIFY Event Display: Result: Authored Date: [id number] Chest Portable Reason: Shortness of Breath; Clinical Question(s): Pneumothorax COMPARISON: 10/26/2022 FINDINGS: LINES AND TUBES: Tracheostomy tube unchanged and appears in appropriate position. Multiple lines overlie the right chest. LUNGS AND PLEURA: Low lung volumes. Mild central hazy opacification and patchy opacities in the left lung base. No pleural effusion. No pneumothorax. HEART, MEDIASTINUM AND ROBERT: Heart is normal in size. Normal mediastinal and hilar contour. BONES AND SOFT TISSUES: No acute abnormality. IMPRESSION: Mild central hazy opacification may reflect edema. Patchy opacities in the left lower lobe unchanged and may reflect atelectasis or pneumonia. WSN: [id number] Ordering Physician: Calin Franco Dictated By: Talat Dempsey MD Dictated Date/Time: 10/28/22 11:28 p Reviewed By: Talat Dempsey MD Signed By: Talat Dempsey MD Signed Date/Time: 10/28/22 11:28 pm Transcribed By: RENETTA Transcribed Date/Time: 10/28/22 11:27 pm * Edward , STEPHANIE S: TRANSCRIRomain Coe MD: VERIFY Event Display: Result: Authored Date: [id number] Chest Portable Reason: Shortness of Breath; Clinical Question(s): Pneumonia COMPARISON: 10/20/2022 FINDINGS: LINES AND TUBES: Tracheostomy tube in expected position. LUNGS AND PLEURA: Mild hazy density in the left lung base, improved from 10/20/2022. Lungs are otherwise well-aerated and clear with normal vascularity. No pleural effusion. No pneumothorax. HEART, MEDIASTINUM AND ROBERT: Heart is normal in size. Normal mediastinal and hilar contour. BONES AND SOFT TISSUES: No acute abnormality. IMPRESSION: Interval improvement in atelectasis or infiltrate in the left lung base. Tracheostomy. WSN: [id number] Ordering Physician: Kenneth Shepard Dictated By: Romain Tanner MD Dictated Date/Time: 10/26/22 12:37 p Reviewed By: Romain Tanner MD Signed By: Romain Tanner MD Signed Date/Time: 10/26/22 12:37 pm Transcribed By: RENETTA Transcribed Date/Time: 10/26/22 12:35 pm * Edward , CIS S: TRANSCRIBE Vahid Leroy MD: VERIFY Event Display: Result: Authored Date: [id number] Chest Portable HX OF PRESENT ILLNESS: Pt. coming from [facility]. Pt. having increased sputum from trach and desats on RA. Had mild fever for facility with hypotension in the 90's systolic. Pt. nonverbaland contracted at baseline; Reason: Fever; Clinical Question(s): Pneumonia / Pneumonia COMPARISON: 12/10/2020 FINDINGS: LINES AND TUBES: Tracheostomy tube in place. LUNGS AND PLEURA: Hazy airspace opacity in the left lower lobe with obscuration of the left hemidiaphragm. No pleural effusion. No pneumothorax. HEART, MEDIASTINUM AND ROBERT: Heart is normal in size. Normal mediastinal and hilar contour. BONES AND SOFT TISSUES: No acute abnormality. IMPRESSION: Findings concerning for left lower lobe pneumonia. WSN: [id number] Ordering Physician: Jia Mills Dictated By: Vahid Leroy MD Dictated Date/Time: 10/20/22 12:20 p Reviewed By: Vahid Leroy MD Signed By: Vahid Leroy MD Signed Date/Time: 10/20/22 12:20 pm Transcribed By: RENETTA Transcribed Date/Time: 10/20/22 12:20 pm CTA Chest vessels W contrast IV * [facility] , CIS S: TRANSCRIBE Meir Agudelo MD S: VERIFY Event Display: Result: Authored Date: EXAMINATION: CT Angio Chest INDICATION: Reason: Other:; PE suspected, Intermediate prob, positive D-dimer,; Clinical Question(s): Pulmonary Embolism; Order Comment: TECHNIQUE: Spiral CTA of the chest was performed after rapid IV contrast administration without cardiac gating, triggered by an STEVEN on the main pulmonary artery. Images are formatted in multiple planes using 2-D multiplanar and 3-D maximum intensity projection. 50 cc of Omnipaque 300 was administered intravenously. Weight-based protocol using automatic tube modulation was used to optimize exposure parameters. CTDIvol Body: 4.94 mGy, DLP Body: 319 mGy*cm. COMPARISONS: None. ANGIOGRAPHIC FINDINGS: Evaluation is mildly limited by motion artifact. No pulmonary embolism to the subsegmental level. Normal caliber pulmonary arteries. No acute aortic abnormality seen on this study performed without cardiac gating. NON-ANGIOGRAPHIC FINDINGS: Prepress Technician View Findings, Lines and Tubes: None. Trachea and Airways: Patent without evidence of tracheal or endobronchial lesion. Lungs and Pleura: There is diffuse tree-in-bud type nodular opacity involving both lungs with areasof more confluent consolidation in the lower lobes. The appearance is most likely related to infectious process, though aspiration could produce this appearance. Small left effusion. Mediastinum and robert: No mass or hematoma. No mediastinal or hilar lymphadenopathy. No esophageal abnormality. Heart: Heart is normal in size. No pericardial effusion. Chest Wall Soft Tissues: Normal. Diaphragm and upper abdomen: No significant abnormality. Bones: No acute abnormality. IMPRESSION: No evidence of pulmonary embolism. Tree-in-bud appearance throughout both lungs with more confluent density in the posterior aspect ofboth lungs. Differential of infectious process versus aspiration. WSN: [id number] Ordering Physician: Harris Perry Dictated By: Meir Agudelo MD Dictated Date/Time: 10/20/22 9:32 pm Reviewed By: Meir Agudelo MD Signed By: Meir Agudelo MD Signed Date/Time: 10/20/22 9:32 pm Transcribed By: CSB Transcribed Date/Time: 10/20/22 9:29 pm Patient Care team information Care Team Personnel Name: Nenita Norton MD Position: [facility] Outreach Member Role: PCP Address: Address: [address] [place] [id number] Name: Courtney Rosas RN Position: [facility] RN Member Role: Primary Care Nurse Name: Leyda Horton RN Position: [facility] RN Member Role: Primary Care Nurse Name: Kody Healy RN Position: [facility] RN Member Role: Primary Care Nurse Name: Calin Greenwood RN Position: [facility] RN Member Role: Primary Care Nurse Name: Leora Paige RN Position: [facility] RN Member Role: Primary Care Nurse Name: Fernanda Silver RN Position: [facility] RN Member Role: Primary Care Nurse Name: Vasu Gannon RN Position: S RN Member Role: Primary Care Nurse Name: Pj Dotson RN Position: S RN Member Role: Primary Care Nurse Name: Darlene Starr RN Position: S RN Member Role: Primary Care Nurse Name: Roberto Salvador Position: [facility] RN Dane Member Role: Primary Care Nurse Name: Carmen Hopkins RN Position: S RN Member Role: Primary Care Nurse Name: Jia Cooper RN Position: S RN Member Role: Primary Care Nurse Name: Petra Longoria RN Position: S RN Member Role: Primary Care Nurse Name: Karina Rao RN Position: S RN Member Role: Primary Care Nurse Name: Pj Jade RN Position: S RN Member Role: Primary Care Nurse Name: Genoveva Ramos RN Position: [facility] RN Member Role: Primary Care Nurse Name: Smita Hogan RN Position: [facility] RN Member Role: Primary Care Nurse Name: Ayden Song Position: [facility] RN Member Role: Primary Care Nurse Name: Tali Menard RN Position: [facility] RN Member Role: Primary Care Nurse Name: Eleni Mcrae RN Position: [facility] RN Member Role: Primary Care Nurse Name: Roberto Catalan RN Position: [facility] RN Member Role: Primary Care Nurse Name: Liat Roger RN Position: [facility] RN Member Role: Primary Care Nurse Name: Jamaal DAVE Attending Position: [facility] ED Medicine MD Name: Debo Murphy Position: [facility] ED OA Charge Member Role: ED Form Block Maker Name: Win Haque Position: [facility] ED TA [facility] Member Role: Patient Care Provider Care Team Related Persons Name: RUBY BRAN Address: [address] [address]
--- OUTSIDE RECORDS SUMMARY | 2023-09-22 17:23 | XMS_ITS | Continuity of Care Document ---
Author Name Unknown Organization [facility] Address [address] [place] [id number]- Care Team Providers Care Tooth Grinder Name Role Phone Lynn Anne MD, Nenita Hudson Primary Care Physici an [place] [facility] [place]06[place]19 - 11/13/19 [facility] [address] [place] [address]- [facility] Encounter Diagnosis Cervical lymphadenopathy(Discharge Diagnosis) - 11/06/19 Chronic low back pain(Discharge Diagnosis) - 11/06/19 Attending Physician: Isidro Sanchez MD Referring Physician: Nenita Norton MD Allergies, Adverse Reactions, Alerts Substance Reaction [...] EDT, Tablet Start Date: 11/06/19 Status: Ordered Problem List Diagnosis Diagnosis Type Effective Dates Health Status Clinical Service Informant Cervical lymphadenopathy Discharge Diagnosis 11/06/19 Chronic low back pain Discharge Diagnosis 11/06/19 Vital Signs Most recent to oldest [Reference Range]: 1 Height 186 cm (11/06/19 11:37 AM)
[2023-09-22 17:29] LABS: Basophils Percent Auto 0.1 % (0-2); Eosinophils Absolute Auto 0.1 X10*3/uL (0.0-0.4); Eosinophils Percent Auto 1.2 % (0-4); Hematocrit 29.2 % (42.0-52.0); Hemoglobin 9.2 g/dl (14.0-18.0); Imm Gran Abs Auto 0.04 X10*3/uL (0.00-0.03); Imm Gran Pct Auto 0.5 % (0.0-0.4); Lymphocytes Percent Auto 11.7 % (20-40); MANUAL DIFF FLAG SCAN; Mean Corpuscular HGB Conc 31.5 g/dl (31.0-36.0); Mean Corpuscular Hemoglobin 26.5 pg (27.0-33.0); Mean Corpuscular Volume 84.1 fL (80.0-98.0); Mean Platelet Volume 10.4 fL (9.4-12.4); Monocytes Absolute Auto 1.5 X10*3/uL (0.1-1.2); Monocytes Percent Auto 17.8 % (2-11); Neutrophils Absolute Auto 5.9 x10*3/uL (2.0-8.3); Neutrophils Percent Auto 68.7 % (45-73); Platelet Count 169 X10*3/uL (160-400); Red Blood Count 3.47 X10*6/uL (4.60-5.80); Red Cell Distribution Width 18.4 % (11.0-16.0); SCAN SMEAR FLAG 1; White Blood Count 8.6 X10*3/uL (4.8-10.8)
--- NOTE | 2023-09-22 17:31 | ED_ITS ---
HPI - General Adult General Chief complaint: Fever Stated complaint: FEVER X4 DAY,L KNEE PAIN/SWELLING,PT @[facility] PER EMS Time Seen by Provider: 09/22/23 16:41 Source: patient, RN notes reviewed and old records reviewed Mode of arrival: EMS Limitations: language barrier (Patient is nonverbal at baseline) History of Present Illness HPI narrative: 52-year-old male with past medical history significant for stage IV mantle cell lymphoma, history of toxoplasmosis, chronic respiratory failure on a chronic tracheostomy, BPH with chronic Rubio catheter placement, chronic G-tube placement presents for evaluation of fever from [facility]. Apparently the patient has had a fever on and off for the last 4 days The patient can not contribute to history however her staff here that is familiar with the patient he seems at his baseline There was some concern for left knee infection as the left knee joint has been edematous per notes from [facility]. It is unclear if there was any injury The patient's temperature is 100.0? rectally on arrival to the ED Related Data Home Medications Medication Instructions Recorded Confirmed acetaminophen 325 mg tablet 650 mg feeding tube Q4H PRN Fever 01/02/23 09/22/23 Or Pain albuterol sulfate 2.5 mg/3 mL 2.5 mg inhalation Q4H PRN 01/02/23 09/22/23 (0.083 %) solution for nebulization Shortness Of Breath Or Wheezing ascorbic acid (vitamin C) 250 mg 250 mg feeding tube DAILY 01/02/23 09/22/23 tablet atovaquone 750 mg/5 mL oral 750 mg feeding tube BIDWM 01/02/23 09/22/23 suspension baclofen 10 mg tablet 5 mg feeding tube 01/02/23 09/22/23 TID@0900,1300,1700 bisacodyl 10 mg rectal suppository 10 mg MI DAILY PRN Constipation 01/02/23 09/22/23 cholecalciferol (vitamin D3) 1,250 1,250 mcg feeding tube QMONTH 01/02/23 09/22/23 mcg (50,000 unit) tablet cholestyramine-aspartame 4 gram 4 g feeding tube BIDWM 01/02/23 09/22/23 oral powder for susp in a packet (Cholestyramine Light) finasteride 5 mg tablet 5 mg feeding tube DAILY 01/02/23 09/22/23 glycopyrrolate 1 mg tablet 0.5 mg feeding tube BID 01/02/23 09/22/23 guaifenesin 200 mg/5 mL oral liquid 200 mg feeding tube Q4H PRN Cough 01/02/23 09/22/23 lacosamide 200 mg tablet 200 mg feeding tube BID 01/02/23 09/22/23 leucovorin calcium 25 mg tablet 25 mg feeding tube BEDTIME 01/02/23 09/22/23 loperamide 2 mg capsule 2 mg feeding tube Q4H PRN Diarrhea 01/02/23 09/22/23 lorazepam 0.5 mg tablet 0.5 mg feeding tube Q6H PRN Anxiety 01/02/23 09/22/23 lorazepam 2 mg/mL injection 2 mg IM ONCE PRN Seizures 01/02/23 09/22/23 solution magnesium hydroxide 400 mg/5 mL 30 ml feeding tube DAILY PRN 01/02/23 09/22/23 oral suspension (Milk of Magnesia) Constipation melatonin 3 mg tablet 3 mg feeding tube BEDTIME 01/02/23 09/22/23 midodrine 5 mg tablet 7.5 mg feeding tube 01/02/23 09/22/23 TID@0600,1000,1400 morphine 10 mg/5 mL oral solution 10 mg feeding tube DAILY 01/02/23 09/22/23 ondansetron HCl 2 mg/mL 4 mg IM Q4H PRN Nausea And Vomiting 01/02/23 09/22/23 intravenous solution ondansetron HCl 4 mg tablet 4 mg feeding tube Q4H PRN Nausea 01/02/23 09/22/23 And Vomiting oxycodone 5 mg tablet 5 mg feeding tube Q4H PRN Pain 01/02/23 09/22/23 (Scale Score 4-6) scopolamine base 1 mg over 3 days 1 patch transdermal Q3D 01/02/23 09/22/23 transdermal patch sennosides 8.6 mg-docusate sodium 2 tab-cap PO BID@0900,1700 01/02/23 09/22/23 50 mg tablet (Senna with Docusate Constipation Sodium) sodium phosphates 19 gram-7 118 ml MI DAILY PRN Constipation 01/02/23 09/22/23 gram/118 mL enema (Fleet Enema) tramadol 50 mg tablet 50 mg feeding tube Q4H PRN Pain 01/02/23 09/22/23 (Scale Score 1-3) zinc sulfate 50 mg zinc (220 mg) 50 mg feeding tube DAILY 01/02/23 09/22/23 tablet multivitamin 1 tab feeding tube DAILY 01/31/23 09/22/23 pyrimethamine 25 mg tablet 50 mg feeding tube DAILY 01/31/23 09/22/23 betamethasone dipropionate 0.05 % 1 appl topical DAILY 06/04/23 09/22/23 topical ointment carboxymethylcellulose sodium 0.25 2 drp ophthalmic (eye) BID 06/04/23 09/22/23 % eye drops morphine 10 mg/5 mL oral solution 5 mg feeding tube DAILY@1700 06/04/23 09/22/23 sucralfate 1 gram tablet 1 g PO BID@1300,1700 06/04/23 09/22/23 acetylcysteine 200 mg/mL (20 %) 2 ml inhalation Q12H PRN THICK 09/22/23 09/22/23 solution AIRWAY SECRETION ibuprofen 600 mg tablet 600 mg PO Q8H PRN FEVER 09/22/23 09/22/23 UNRESPONSIVE TO APAP Allergies Allergy/AdvReac Type Severity Reaction Status Date / Time cyclobenzaprine [Flexeril] Allergy Unknown Palpitation Verified 09/22/20 15:41 s Review of Systems 2 Constitutional: Constitutional: Reports fever(s) Respiratory: Respiratory: Reports cough PMFSH Past Medical History Medical History Mantle cell lymphoma Aspiration into airway Tracheostomy dependent Stage IV decubitus ulcer Osteomyelitis of pelvis Anemia Toxoplasmosis Encephalopathy 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 Rectal bleeding H/O: RCT (rotator cuff tear) Depression Appendicitis Chronic pain Kidney stone Mantle cell lymphoma Surgical History History of appendectomy Family History Family History Mother COPD (chronic obstructive pulmonary disease) Sister Colon cancer Social History Social History Household Members: None Housing: Detention Housing Other:: [facility] Do you presently have visiting nurse or other home services: No Unable to assess alcohol history related to: Unknown Alcohol intake: unknown Patient Tobacco Use Status: Never used Tobacco Substance Use Type: Unknown Advance Directives: Yes Advance Directives on File: Yes Advance Directives Date on File: 06/04/23 service: No Current occupational status: unemployed Physical Exam ED Vital Signs: Vital Signs - 24 hr 09/22/23 16:58 09/22/23 20:30 Temperature 100 F 101.1 F H Pulse Rate 90 113 H Respiratory Rate 16 18 Blood Pressure 112/78 122/70 Pulse Oximetry 99 98 Oxygen Delivery Method Trach Collar Trach Collar Oxygen Flow Rate 10 BMI result Body Mass Index 22.3 Const General: comfortable, no acute distress and awake Nutritional Appearance: cachectic Limitations: other limitations (Nonverbal with tracheostomy) HENDE Head: Yes normocephalic Eyes Visual Montes: normal visual montes by confrontation Alignment and Position: alignment normal Periorbital: periorbital findings normal Eyelids: Yes eyelids normal Conjunctivae: conjunctivae normal Pupils: Equal, round and reactive pupils present Resp Other: Rhonchi throughout the lung montes bilaterally Effort & Inspection: normal respiratory effort GI Inspection: Yes G-tube present Palpation (GI): Soft to palpation and no guarding Other: Rubio catheter in place Skin General skin exam: no rashes or lesions noted Neuro Cranial nerves: Yes Equal, round and reactive pupils present Extrem Other: Patient has contractures. Left knee is flexed to approximately 50? of flexion. The left knee is slightly edematous compared to the right with trace erythema. Course Reevaluation(s) Reevaluation #1: Patient's chest x-ray did not show any focal infiltrates, he was negative for COVID, influenza. Therefore, a left knee arthrocentesis was performed which showed purulent synovial fluid. This was sent to lab for testing, but appeared consistent with septic joint. Time: 20:20 Reevaluation #2: Patient has spiked a fever of 101.1, at this point he meets criteria for sepsis. He is tachycardic and febrile with a suspected infection of a left knee joint infection. He does not meet criteria for severe sepsis as he is not hypotensive and does not have an elevated lactic acid. Patient will be treated with broad- spectrum antibiotics and was given IV fluids Time: 20:30 Medications Administered Generic Name Dose Route Start Last Admin Trade Name Freq PRN Reason Stop Dose Admin Acetaminophen 650 mg 09/22/23 22:42 09/23/23 00:47 Acetaminophen 325 Mg Tablet G-TUBE 650 mg Q4H PRN Administration Fever Or Pain Atovaquone 750 mg 09/22/23 22:45 09/23/23 00:05 Atovaquone 750 Mg/5 Ml Oral.Susp G-TUBE 750 mg BIDWM RACHELL Administration Glycopyrrolate 0.5 mg 09/22/23 22:45 09/23/23 00:06 Glycopyrrolate 1 Mg Tablet G-TUBE 0.5 mg BID RACHELL Administration Dextrose/Sodium Chloride 1,000 mls @ 100 mls/hr 09/22/23 22:45 09/22/23 22:53 D5ns IVCONT 100 mls/hr .Q10H RACHELL Administration Lacosamide 200 mg 09/22/23 22:45 09/23/23 00:06 Lacosamide 100 Mg Tablet G-TUBE 200 mg BID RACHELL Administration Melatonin 3 mg 09/22/23 22:45 09/23/23 00:06 Melatonin 3 Mg Tablet G-TUBE 3 mg BEDTIME [facility] Administration Morphine Sulfate 5 mg 09/22/23 22:45 09/23/23 00:05 Morphine Sulfate Oral Cady 10 Mg/5 Ml Solution G-TUBE 5 mg DAILY@1700 [facility] Administration Non-Formulary Medication 2 drop 09/22/23 22:45 09/23/23 00:06 Carboxymethylcellulose Sodium EYE-BOTH Not Given BID [facility] Scopolamine 1.5 mg 09/22/23 22:45 09/23/23 00:07 Scopolamine 1.5 Mg Patch.Td.3 TRANSDERMA Not Given Q3D [facility] Senna/Docusate Sodium 2 tab 09/22/23 22:45 09/23/23 00:06 Sennosides/Docusate Sodium Tablet PO 2 tab BID@0900,1700 [facility] Administration Sodium Chloride 3 ml 09/23/23 00:00 09/22/23 23:01 0.9 % Sodium Chloride Flush 3 Ml Syringe IVFLUSH Not Given QSHIFT [facility] Discontinued Medications Generic Name Dose Route Start Last Admin Trade Name Ari PRN Reason Stop Dose Admin Acetaminophen 650 mg 09/22/23 20:49 09/22/23 21:04 Acetaminophen 325 Mg Tablet G-TUBE 09/22/23 20:50 650 mg ONCE ONE Administration Vancomycin HCl 1,500 mg/ 500 mls @ 333.333 mls/hr 09/22/23 19:34 09/22/23 22:57 Sodium Chloride IV 09/22/23 21:03 Infused ONCE ONE Infusion Piperacillin Sod/Tazobactam 50 mls @ 100 mls/hr 09/22/23 19:34 09/22/23 21:11 Sod 3.375 gm/ Sodium Chloride IV 09/22/23 20:03 Infused ONCE ONE Infusion Sodium Chloride 1,000 mls @ 999 mls/hr 09/22/23 19:45 09/22/23 22:57 Ns IV 09/22/23 20:45 Infused .Q1H1M RACHELL Infusion Lidocaine/Epinephrine 10 ml 09/22/23 19:13 09/22/23 20:19 Lidocaine Hcl 1%/Epi 1:100,000 30 Ml Vial INFILTRATI 09/22/23 19:14 10 ml ONCE ONE Administration Non-Formulary Medication 4 gm 09/22/23 22:45 09/23/23 00:06 Cholestyramine-Aspartame [Cholestyramine Light] feeding tube Not Given BIDWM [facility] Non-Formulary Medication 25 mg 09/22/23 22:45 09/23/23 00:07 Leucovorin Calcium feeding tube Not Given BEDTIME [facility] Procedures Joint Aspiration/Injection Joint Asp./Inject. 1: Time Out Performed: Yes Side of body: left Joint Aspirated: knee Ultrasound Guidance: No Skin Prep: Povidone-Iodine1% Local Anesthetic: lidocaine 1% Amount of anesthesia used (mL): 2 Needle Size Used: Other (21G) Fluid Obtained: purulent Total fluid obtained (mL): 5 Patient Tolerated Procedure: well and no complications Complications: none Additional Comments: Area was prepped and draped in a sterile fashion. Using a lateral approach inferior to the patella, lidocaine was locally injected followed by needle aspiration of approximately 5 cc of purulent drainage which was sent for culture. This was done on the 1st attempt by PA StudentApurva under my direct supervision. There were no complications Medical Decision Making Medical Decision Making MDM Narrative: 52-year-old male with multiple comorbidities as described above presents for evaluation of fevers at his long-term care facility. He is afebrile on arrival. Plan for large septic workup including chest x-ray. Will get an x-ray left knee, ESR, CRP, low suspicion for left knee arthrocentesis although clinically does not appear consistent with septic joint. Differential Diagnosis Differential Diagnoses: The differential diagnosis associated with the presentation includes Fever Sepsis Aspiration pneumonia COVID-19 Influenza Admission/Observation Consideration of admission/observation: Escalation of care including admission/observation considered Consult Healthcare Provider Management of the patient was discussed with: Hospitalist (Dr. Leavitt will admit the patient after discussing with orthopedics) and Automobile Repossessor (Discussed with orthopedics given the septic joint, Dr. Medina who recommends admission to the medical service and NPO after midnight) Lab Data MDM Lab Attestation statement: I reviewed the patient's lab results. No leukocytosis. The patient has a chronic anemia I was consistent with his baseline. He does have elevated inflammatory markers with an ESR of 105 and a CRP of 22.97. He otherwise has no significant chemistry abnormalities. His BUN is slightly elevated but is consistent with his baseline 09/22/23 17:15 09/22/23 17:15 Labs: Lab Results 09/22/23 09/22/23 09/22/23 Range/Units 17:15 17:24 17:26 WBC 8.6 (4.8-10.8) X10*3/uL RBC 3.47 L (4.60-5.80) X10*6/uL Hgb 9.2 L (14.0-18.0) g/dl Hct 29.2 L (42.0-52.0) % MCV 84.1 (80.0-98.0) fL MCH 26.5 L (27.0-33.0) pg MCHC 31.5 (31.0-36.0) g/dl RDW 18.4 H (11.0-16.0) % Plt Count 169 (160-400) X10*3/uL MPV 10.4 (9.4-12.4) fL Immature Gran % (Auto) 0.5 H (0.0-0.4) % Neut % (Auto) 68.7 (45-73) % Lymph % (Auto) 11.7 L (20-40) % Morrow % (Auto) 17.8 H (2-11) % Eos % (Auto) 1.2 (0-4) % Baso % (Auto) 0.1 (0-2) % Lymph # (Auto) 1.0 L (1.2-4.9) X10*3/uL Morrow # (Auto) 1.5 H (0.1-1.2) X10*3/uL Eos # (Auto) 0.1 (0.0-0.4) X10*3/uL Baso # (Auto) 0.0 (0.0-0.2) X10*3/uL Abs Immat Gran (auto) 0.04 H (0.00-0.03) X10*3/uL Absolute Neuts (auto) 5.9 (2.0-8.3) x10*3/uL Absolute Nucleated RBC 0.000 (0.0-0.012) X10*3/uL Nucleated RBC % (auto) 0.0 (0.0-0.2) /100WBC Smear Tech's Comments VERIFIED ESR 105 H (0-15) MM/HR Sodium 139 (135-145) mmol/L Potassium 4.2 (3.3-5.1) mmol/L Chloride 102 (96-108) mmol/L Carbon Dioxide 29 (22-29) mmol/L Anion Gap 12 (12-20) BUN 27 H (9-16) mg/dL Creatinine 0.82 (0.5-1.4) mg/dL Estim Creat Clear Calc 101.5 Estimated GFR > 60 Random Glucose 87 (60-115) mg/dL Lactic Acid 2.0 (0.5-2.0) mmol/L Calcium 8.9 (8.4-10.2) mg/dL Total Bilirubin 0.6 (0.0-1.0) mg/dL AST 25 (5-37) U/L ALT 34 (0-40) U/L Alkaline Phosphatase 203 H (39-117) U/L C-Reactive Protein 22.97 H (< or = 0.50) mg/dL Total Protein 7.2 (6.5-8.0) g/dL Albumin 3.3 L (3.5-5.0) g/dL Urine Color Urine Appearance Urine pH (5.0-9.0) Ur Specific [place] (1.005-1.025) Urine Protein (Neg-Trace) mg/dL Urine Glucose (UA) (Negative) mg/dL Urine Ketones (Negative) mg/dL Urine Blood (Negative) Urine Nitrite (Negative) Ur Leukocyte Esterase (Negative) Urine RBC (0-2) /HPF Urine WBC (0-5) /HPF Ur Squamous Epith Cells (0-2) /HPF Urine Bacteria (None Seen) Hyaline Casts (0-2) /LPF Synovial Source Synovial WBC X10*3/uL Synovial RBC X10*6/uL Synovial Neutrophils % Synovial Lymphocytes % Synovial Monocytes % Synovial Glucose MG/DL Synovial Total Protein GM/DL Synovial LDH U/L COVID-19 (LAURY) Negative (Negative) COVID-19 Clin Com See Note Influenza Type A (ZANE) Negative (Negative) Influenza Type B (ZANE) Negative (Negative) Influenza A & B Note See Note 09/22/23 Range/Units 20:29 WBC (4.8-10.8) X10*3/uL RBC (4.60-5.80) X10*6/uL Hgb (14.0-18.0) g/dl Hct (42.0-52.0) % MCV (80.0-98.0) fL MCH (27.0-33.0) pg MCHC (31.0-36.0) g/dl RDW (11.0-16.0) % Plt Count (160-400) X10*3/uL MPV (9.4-12.4) fL Immature Gran % (Auto) (0.0-0.4) % Neut % (Auto) (45-73) % Lymph % (Auto) (20-40) % Morrow % (Auto) (2-11) % Eos % (Auto) (0-4) % Baso % (Auto) (0-2) % Lymph # (Auto) (1.2-4.9) X10*3/uL Morrow # (Auto) (0.1-1.2) X10*3/uL Eos # (Auto) (0.0-0.4) X10*3/uL Baso # (Auto) (0.0-0.2) X10*3/uL Abs Immat Gran (auto) (0.00-0.03) X10*3/uL Absolute Neuts (auto) (2.0-8.3) x10*3/uL Absolute Nucleated RBC (0.0-0.012) X10*3/uL Nucleated RBC % (auto) (0.0-0.2) /100WBC Smear Tech's Comments ESR (0-15) MM/HR Sodium (135-145) mmol/L Potassium (3.3-5.1) mmol/L Chloride (96-108) mmol/L Carbon Dioxide (22-29) mmol/L Anion Gap (12-20) BUN (9-16) mg/dL Creatinine (0.5-1.4) mg/dL Estim Creat Clear Calc Estimated GFR Random Glucose (60-115) mg/dL Lactic Acid (0.5-2.0) mmol/L Calcium (8.4-10.2) mg/dL Total Bilirubin (0.0-1.0) mg/dL AST (5-37) U/L ALT (0-40) U/L Alkaline Phosphatase (39-117) U/L C-Reactive Protein (< or = 0.50) mg/dL Total Protein (6.5-8.0) g/dL Albumin (3.5-5.0) g/dL Urine Color Dark Yellow Urine Appearance Clear Urine pH 6.0 (5.0-9.0) Ur Specific [place] 1.020 (1.005-1.025) Urine Protein 300 (3+) H (Neg-Trace) mg/dL Urine Glucose (UA) Negative (Negative) mg/dL Urine Ketones Negative (Negative) mg/dL Urine Blood Moderate (2+) H (Negative) Urine Nitrite Positive H (Negative) Ur Leukocyte Esterase Moderate (2+) H (Negative) Urine RBC >20 H (0-2) /HPF Urine WBC >50 H (0-5) /HPF Ur Squamous Epith Cells 0-2 (0-2) /HPF Urine Bacteria 1+ (None Seen) Hyaline Casts 0-2 (0-2) /LPF Synovial Source left knee Synovial WBC 250.920 X10*3/uL Synovial RBC 0.030 X10*6/uL Synovial Neutrophils 81 % Synovial Lymphocytes 11 % Synovial Monocytes 8 % Synovial Glucose < 2 MG/DL Synovial Total Protein 5.2 GM/DL Synovial LDH 2243 U/L COVID-19 (LAURY) (Negative) COVID-19 Clin Com Influenza Type A (ZANE) (Negative) Influenza Type B (ZANE) (Negative) Influenza A & B Note Discharge Plan Discharge Clinical Impression: Septic joint of left knee joint, Sepsis Patient Disposition: Admitted As Inpatient
[2023-09-22 17:36] LABS: Alanine Aminotransferase 34 U/L (0-40); Albumin Level 3.3 g/dL (3.5-5.0); Alkaline Phosphatase 203 U/L (39-117); Anion Gap 12 (12-20); Aspartate Amino Transferase 25 U/L (5-37); Bilirubin Total 0.6 mg/dL (0.0-1.0); Blood Urea Nitrogen 27 mg/dL (9-16); Calcium 8.9 mg/dL (8.4-10.2); Carbon Dioxide 29 mmol/L (22-29); Chloride 102 mmol/L (96-108); Creatinine Clr Calc Pharmacy 101.5; Estimated Glomerular Filt Rate > 60; Glucose Random 87 mg/dL (60-115); Potassium 4.2 mmol/L (3.3-5.1); Sodium 139 mmol/L (135-145); Total Protein 7.2 g/dL (6.5-8.0)
[2023-09-22 17:42] LABS: C Reactive Protein 22.97 mg/dL (< or = 0.50)
[2023-09-22 17:47] LABS: SLIDE REVIEW VERIFIED
[2023-09-22 17:51] LABS: COVID-19 Test Negative (Negative); IDNOW Serial# 152EDE1D; IDNOW Serial# 9DB6401D; Influenza A Negative (Negative); Influenza B2 Negative (Negative)
[2023-09-22 18:06] LABS: Erythrocyte Sedimentation Rate 105 MM/HR (0-15)
--- NOTE | 2023-09-22 19:50 | PHA.MEDREC ---
Addendum entered by Daya Monreal [facility] 09/23/23 16:17: Called jackie, patient gets his Daraprim from [facility]. Last mailed to [address] [place] [address] on 09/20/23, If provider would like to continue medication. Maybe HCP can get medication from patients location. Jackie also confirmed that dosing should be BID. Original Note: Pharmacy Consult ? Medication Reconciliation Pharmacy has completed the medication reconciliation. Patient came from [facility] with a medication list. Christina Richter, ElizabethD
[2023-09-22] MEDS: Piperacillin Sodium/Tazobactam 3.375 GM in 0.9 % Sodium Chloride 50 ML IV (20:20)
[2023-09-22] MEDS: 0.9 % Sodium Chloride 1,000 ML 999 ML IV (20:21)
[2023-09-22 20:30] VITALS: BP 122/70; PULSE 113; RESP 18; TEMP 38.4; O2SAT 98
[2023-09-22 20:44] LABS: Source Synovial Fluid left knee
[2023-09-22 20:56] LABS: Appearance Urine Clear; Bacteria Urine 1+ (None Seen); Color Urine Dark Yellow; Glucose Urine UA Negative (Negative); Hyaline Casts Urine 0-2 /LPF (0-2); Leukocyte Esterase Urine Moderate (2+) (Negative); Nitrite Urine Positive (Negative); RBC Urine >20 /HPF (0-2); Squamous Epithelial Cell Urine 0-2 /HPF (0-2); UACC Culture Trigger YES; UMIC TRIGGER UACC YES; Urine Blood Moderate (2+) (Negative); Urine Ketones Negative (Negative); Urine Protein 300 (3+) mg/dL (Neg-Trace); WBC Urine >50 /HPF (0-5)
[2023-09-22] MEDS: vancomycin HCL 1,500 MG in 0.9 % Sodium Chloride 500 ML 333.33 MG IV (21:03)
[2023-09-22] MEDS: Acetaminophen 325 MG TABLET 650 MG G-TUBE (21:04)
[2023-09-22 21:33] LABS: MN% 17.3 %; PMN% 82.7 %
[2023-09-22 22:19] LABS: BF Shift QC OK YES; Man Diluent Bkgrd OK YES
[2023-09-22 22:38] LABS: Lymphocytes Synovial Fluid 11 %; Neutrophils Synovial Fluid 81 %
[2023-09-22 22:39] LABS: Monocytes Synovial Fluid 8 %
[2023-09-22] MEDS: Dextrose 5 % and 0.9 % NaCl 1,000 ML 100 ML IVCONT (22:53)
[2023-09-22 22:57] VITALS: BP 122/61; PULSE 117; RESP 16; TEMP 38.3; O2SAT 95
--- NOTE | 2023-09-22 23:04 | PC.NURSE ---
Spoke with nurse from [facility] to give updates
[2023-09-23] VITALS (18 sets, daily range): BP systolic 92–130; BP diastolic 58–77; PULSE 84–108; RESP 12–22; TEMP 36.8–38.1; O2SAT 92–100
[2023-09-23] MEDS: Atovaquone 750 MG/5 ML ORAL.SUSP G-TUBE ×2 (00:05→10:18)
[2023-09-23] MEDS: Morphine Sulfate Oral Sol 10 MG/5 ML SOLUTION 5 MG G-TUBE (00:05)
[2023-09-23] MEDS: Sennosides/Docusate Sodium TABLET 2 TAB PO ×2 (00:06→10:02)
[2023-09-23] MEDS: Glycopyrrolate 1 MG TABLET 0.5 MG G-TUBE ×3 (00:06→23:37)
[2023-09-23] MEDS: Lacosamide 100 MG TABLET 200 MG G-TUBE ×2 (00:06→10:02)
[2023-09-23] MEDS: Melatonin 3 MG TABLET G-TUBE ×2 (00:06→23:37)
[2023-09-23 00:28] LABS: Glucose Synovial Fluid < 2 MG/DL; Total Protein Synovial Fluid 5.2 GM/DL
[2023-09-23] MEDS: Acetaminophen 325 MG TABLET 650 MG G-TUBE ×3 (00:47→11:54)
--- NOTE | 2023-09-23 01:17 | PM.IMHP ---
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 for fever evaluation. The patient is nonverbal and HIPI was obtained from ED provider. Fever has been on and off over the last 4 days. There was a concern for septic arthritis on the left knee. In the ED, he was found to have fever and tachycardia. Blood pressure is normal. He was placed on supplemental oxygen via trach collar, 10 L/min but now he is on room air with oxygen saturation of 95%. Blood workup showed no leukocytosis. CRP is markedly elevated. No significant electrolyte imbalances. Renal function is normal. Anemia is chronic per baseline. INR is normal.. Urinalysis consistent with urinary tract infection. Viral testing for COVID-19 and influenza is negative. Synovial fluid was obtained by ED and synovial fluid was sent for analysis. CXR showed no acute changes. Left knee x-ray (evaluation limited) without discrete acute abnormality. ED tx: Vancomycin 1.5 g IV, Zosyn 3.375 g IV, acetaminophen 650 mg x 2, NS 1 L bolus. Review of Systems Review of Systems: Yes Unobtainable due to mental condition [facility] Medical History Mantle cell lymphoma Aspiration into airway Tracheostomy dependent Stage IV decubitus ulcer Osteomyelitis of pelvis Anemia Toxoplasmosis Encephalopathy FIRE AL[employer] INSPECTOR lymphoma Rectal bleeding H/O: RCT (rotator cuff tear) Depression Appendicitis Chronic pain Kidney stone Mantle cell lymphoma Family History Mother COPD (chronic obstructive pulmonary disease) Sister Colon cancer Surgical History History of appendectomy Social History Household Members: None Housing: Senior Living Housing Other:: [facility] Do you presently have visiting nurse or other home services: No Unable to assess alcohol history related to: Unknown Alcohol intake: unknown Patient Tobacco Use Status: Never used Tobacco Substance Use Type: Unknown Advance Directives: Yes Advance Directives on File: Yes Advance Directives Date on File: 06/04/23 service: No Current occupational status: unemployed Meds Allergies Allergy/AdvReac Type Severity Reaction Status Date / Time cyclobenzaprine [Flexeril] Allergy Unknown Palpitation Verified 09/22/20 15:41 s Active Medications: Current Medications Acetaminophen (Acetaminophen 325 Mg Tablet) 650 mg G-TUBE Q4H PRN PRN Reason: Fever Or Pain Last Admin: 09/23/23 00:47 Dose: 650 mg Acetylcysteine (Acetylcysteine 20 % 6,000 Mg/30 Ml Vial) 400 mg INHALE Q12H PRN PRN Reason: THICK AIRWAY SECRETION Albuterol Sulfate (Albuterol Sulfate (0.083%) 2.5 Mg/3 Ml Vial.Neb) 2.5 mg INHALE Q4H PRN PRN Reason: Shortness Of Breath Or Wheezing Albuterol/Ipratropium (Albuterol/Iprat 2.5/0.5mg 3 Ml Ampul.Neb) 3 ml INHALE Q4H PRN PRN Reason: Shortness of Breath/Wheezing Ascorbic Acid (Ascorbic Acid 250 Mg Tablet) 250 mg G-TUBE DAILY RACHELL Atovaquone (Atovaquone 750 Mg/5 Ml Oral.Susp) 750 mg G-TUBE BIDWM RACHELL Last Admin: 09/23/23 00:05 Dose: 750 mg Baclofen (Baclofen 10 Mg Tablet) 5 mg G-TUBE TID@0900,1300,1700 RACHELL Bisacodyl (Bisacodyl 10 Mg Supp.Rect) 10 mg CA DAILY PRN PRN Reason: Constipation Cholestyramine Resin (Cholestyramine (With Sugar) 4 Gm Powd.Pack) 4 gm G-TUBE BIDWM [facility] Finasteride (Finasteride 5 Mg Tablet) 5 mg PO DAILY RACHELL Glycopyrrolate (Glycopyrrolate 1 Mg Tablet) 0.5 mg G-TUBE BID RACHELL Last Admin: 09/23/23 00:06 Dose: 0.5 mg Guaifenesin (Guaifenesin 100 Mg/5 Ml Liquid) 200 ml PO Q4H PRN PRN Reason: Cough Heparin Sodium (Porcine) (Heparin Sodium,Porcine 5,000 Unit/Ml Vial) 5,000 unit SUBCUT Q8H [facility] Dextrose/Sodium Chloride (D5ns) 1,000 mls @ 100 mls/hr IVCONT .Q10H [facility] Last Admin: 09/22/23 22:53 Dose: 100 mls/hr Ibuprofen (Ibuprofen 600 Mg Tablet) 600 mg G-TUBE Q8H PRN PRN Reason: FEVER UNRESPONSIVE TO APAP Lacosamide (Lacosamide 100 Mg Tablet) 200 mg G-TUBE BID [facility] Last Admin: 09/23/23 00:06 Dose: 200 mg Leucovorin Calcium (Leucovorin Calcium 5 Mg Tablet) 25 mg G-TUBE BEDTIME [facility] Loperamide HCl (Loperamide Hcl 2 Mg Capsule) 2 mg G-TUBE Q4H PRN PRN Reason: Diarrhea Lorazepam (Lorazepam 0.5 Mg Tablet) 0.5 mg G-TUBE Q6H PRN PRN Reason: Anxiety Magnesium Hydroxide (Milk Of Magnesia 30 Ml Oral.Susp) 30 ml G-TUBE DAILY PRN PRN Reason: Constipation Melatonin (Melatonin 3 Mg Tablet) 3 mg G-TUBE BEDTIME [facility] Last Admin: 09/23/23 00:06 Dose: 3 mg Midodrine (Midodrine Hcl 2.5 Mg Tablet) 7.5 mg G-TUBE TID@0600,1000,1400 [facility] Morphine Sulfate (Morphine Sulfate Oral Cady 10 Mg/5 Ml Solution) 5 mg G-TUBE DAILY@1700 [facility] Last Admin: 09/23/23 00:05 Dose: 5 mg Morphine Sulfate (Morphine Sulfate Oral Cady 10 Mg/5 Ml Solution) 10 mg G-TUBE DAILY [facility] Multivitamins/Vitamin C (Multivitamin Tablet) 1 tab PO DAILY [facility] Non-Formulary Medication (Carboxymethylcellulose Sodium) 2 drop EYE-BOTH BID [facility] Last Admin: 09/23/23 00:06 Dose: Not Given Non-Formulary Medication (Cholecalciferol (Vitamin D3)) 1,250 mcg feeding tube QMONTH [facility] Non-Formulary Medication (Pyrimethamine) 50 mg feeding tube DAILY [facility] Ondansetron HCl (Ondansetron Hcl 4 Mg/2 Ml Vial) 4 mg IM Q4H PRN PRN Reason: Nausea And Vomiting Ondansetron HCl (Ondansetron Odt 4 Mg Tab.Rapdis) 4 mg TRANSLINGU Q4H PRN PRN Reason: Nausea And Vomiting Oxycodone HCl (Oxycodone Hcl Immed Release 5 Mg Tablet) 5 mg G-TUBE Q4H PRN PRN Reason: Pain (Scale Score 4-6) Scopolamine (Scopolamine 1.5 Mg Patch.Td.3) 1.5 mg TRANSDERMA Q3D [facility] Last Admin: 09/23/23 00:07 Dose: Not Given Senna/Docusate Sodium (Sennosides/Docusate Sodium Tablet) 2 tab PO BID@0900,1700 [facility] Last Admin: 09/23/23 00:06 Dose: 2 tab Sodium Biphosphate/Sodium Phosphate (Sodium Phosphate,Grady-Dibasic 133 Ml Enema) 133 ml CA DAILY PRN PRN Reason: Constipation Sodium Chloride (0.9 % Sodium Chloride Flush 3 Ml Syringe) 3 ml IVFLUSH QSHIFT [facility] Last Admin: 09/22/23 23:01 Dose: Not Given Sucralfate (Sucralfate 1 Gm Tablet) 1 gm PO BID@1300,1700 [facility] Tramadol HCl (Tramadol Hcl 50 Mg Tablet) 50 mg G-TUBE Q4H PRN PRN Reason: Pain (Scale Score 1-3) Triamcinolone Acetonide (Triamcinolone Acet 0.5 % Oint 15 Gm Tube) 1 appl TOPICAL DAILY [facility] Zinc Sulfate (Zinc Sulfate 220 Mg Capsule) 220 mg G-TUBE DAILY [facility] Home Medications Medication Instructions Recorded Confirmed Last Taken Type acetaminophen 325 mg tablet 650 mg feeding tube Q4H PRN Fever 01/02/23 09/22/23 09/22/23 History Or Pain albuterol sulfate 2.5 mg/3 mL 2.5 mg inhalation Q4H PRN 01/02/23 09/22/23 Unknown History (0.083 %) solution for nebulization Shortness Of Breath Or Wheezing ascorbic acid (vitamin C) 250 mg 250 mg feeding tube DAILY 01/02/23 09/22/23 09/22/23 History tablet atovaquone 750 mg/5 mL oral 750 mg feeding tube BIDWM 01/02/23 09/22/23 09/22/23 History suspension baclofen 10 mg tablet 5 mg feeding tube 01/02/23 09/22/23 09/22/23 History TID@0900,1300,1700 bisacodyl 10 mg rectal suppository 10 mg CA DAILY PRN Constipation 01/02/23 09/22/23 Unknown History cholecalciferol (vitamin D3) 1,250 1,250 mcg feeding tube QMONTH 01/02/23 09/22/23 08/29/23 History mcg (50,000 unit) tablet cholestyramine-aspartame 4 gram 4 g feeding tube BIDWM 01/02/23 09/22/23 09/22/23 History oral powder for susp in a packet (Cholestyramine Light) finasteride 5 mg tablet 5 mg feeding tube DAILY 01/02/23 09/22/23 09/22/23 History glycopyrrolate 1 mg tablet 0.5 mg feeding tube BID 01/02/23 09/22/23 09/22/23 History guaifenesin 200 mg/5 mL oral liquid 200 mg feeding tube Q4H PRN Cough 01/02/23 09/22/23 Unknown History lacosamide 200 mg tablet 200 mg feeding tube BID 01/02/23 09/22/23 09/22/23 History leucovorin calcium 25 mg tablet 25 mg feeding tube BEDTIME 01/02/23 09/22/23 09/22/23 History loperamide 2 mg capsule 2 mg feeding tube Q4H PRN Diarrhea 01/02/23 09/22/23 Unknown History lorazepam 0.5 mg tablet 0.5 mg feeding tube Q6H PRN Anxiety 01/02/23 09/22/23 09/22/23 History lorazepam 2 mg/mL injection 2 mg IM ONCE PRN Seizures 01/02/23 09/22/23 Unknown History solution magnesium hydroxide 400 mg/5 mL 30 ml feeding tube DAILY PRN 01/02/23 09/22/23 Unknown History oral suspension (Milk of Magnesia) Constipation melatonin 3 mg tablet 3 mg feeding tube BEDTIME 01/02/23 09/22/23 09/22/23 History midodrine 5 mg tablet 7.5 mg feeding tube 01/02/23 09/22/23 09/22/23 History TID@0600,1000,1400 morphine 10 mg/5 mL oral solution 10 mg feeding tube DAILY 01/02/23 09/22/23 09/22/23 History ondansetron HCl 2 mg/mL 4 mg IM Q4H PRN Nausea And Vomiting 01/02/23 09/22/23 Unknown History intravenous solution ondansetron HCl 4 mg tablet 4 mg feeding tube Q4H PRN Nausea 01/02/23 09/22/23 Unknown History And Vomiting oxycodone 5 mg tablet 5 mg feeding tube Q4H PRN Pain 01/02/23 09/22/23 09/22/23 10:02 History (Scale Score 4-6) scopolamine base 1 mg over 3 days 1 patch transdermal Q3D 01/02/23 09/22/23 09/22/23 History transdermal patch sennosides 8.6 mg-docusate sodium 2 tab-cap PO BID@0900,1700 01/02/23 09/22/23 09/22/23 History 50 mg tablet (Senna with Docusate Constipation Sodium) sodium phosphates 19 gram-7 118 ml CA DAILY PRN Constipation 01/02/23 09/22/23 Unknown History gram/118 mL enema (Fleet Enema) tramadol 50 mg tablet 50 mg feeding tube Q4H PRN Pain 01/02/23 09/22/23 Unknown History (Scale Score 1-3) zinc sulfate 50 mg zinc (220 mg) 50 mg feeding tube DAILY 01/02/23 09/22/23 09/22/23 History tablet multivitamin 1 tab feeding tube DAILY 01/31/23 09/22/23 09/22/23 History pyrimethamine 25 mg tablet 50 mg feeding tube DAILY 01/31/23 09/22/23 09/22/23 History betamethasone dipropionate 0.05 % 1 appl topical DAILY 06/04/23 09/22/23 09/22/23 History topical ointment carboxymethylcellulose sodium 0.25 2 drp ophthalmic (eye) BID 06/04/23 09/22/23 09/22/23 History % eye drops morphine 10 mg/5 mL oral solution 5 mg feeding tube DAILY@1700 06/04/23 09/22/23 09/22/23 History sucralfate 1 gram tablet 1 g PO BID@1300,1700 06/04/23 09/22/23 09/22/23 History acetylcysteine 200 mg/mL (20 %) 2 ml inhalation Q12H PRN THICK 09/22/23 09/22/23 Unknown History solution AIRWAY SECRETION ibuprofen 600 mg tablet 600 mg PO Q8H PRN FEVER 09/22/23 09/22/23 Unknown History UNRESPONSIVE TO APAP Physical Exam Vital Signs and Narrative: Vital Signs: Last Vital Signs Temp 100.9 F H 09/22/23 22:57 Pulse 117 H 09/22/23 22:57 Resp 16 09/22/23 22:57 BP 122/61 09/22/23 22:57 Pulse Ox 95 09/22/23 22:57 O2 Del Method Room Air 09/22/23 22:57 O2 Flow Rate 10 09/22/23 20:30 BMI result Body Mass Index 22.3 Const: General: alert and ill appearing Nutritional Appearance: malnourished Limitations: other limitations (Nonverbal) HEENT: Head: Yes normocephalic and Yes atraumatic Eyes: General: appearance normal, both eyes and all related structures Pupils: Equal, round and reactive pupils present Resp: Effort & Inspection: abnormal respiratory pattern, no audible wheezes and no cough Auscultation: rhonchi and bronchial breath sounds Cardio: Rate: regular rate and tachycardic GI: Other: G-tube in place Inspection: Yes normal to inspection Palpation (GI): Soft to palpation Auscultation: normal bowel sounds Neuro: Other: Unable to assess. Patient is nonverbal and do not follow simple commands. Paraparesis. Cranial nerves: Yes Equal, round and reactive pupils present Extrem: Other: Left knee: contracted, (+) effusion. Results Labs 09/22/23 17:15 09/22/23 17:15 Labs: Laboratory Results - last 24 hr 09/22/23 09/22/23 09/22/23 17:15 17:24 17:26 MCV 84.1 MCH 26.5 L MCHC 31.5 RDW 18.4 H Plt Count 169 MPV 10.4 Immature Gran % (Auto) 0.5 H Neut % (Auto) 68.7 Lymph % (Auto) 11.7 L Grady % (Auto) 17.8 H Eos % (Auto) 1.2 Baso % (Auto) 0.1 Lymph # (Auto) 1.0 L Grady # (Auto) 1.5 H Eos # (Auto) 0.1 Baso # (Auto) 0.0 Abs Immat Gran (auto) 0.04 H Absolute Neuts (auto) 5.9 Absolute Nucleated RBC 0.000 Nucleated RBC % (auto) 0.0 Smear Tech's Comments VERIFIED ESR 105 H Anion Gap 12 Estim Creat Clear Calc 101.5 Estimated GFR > 60 Random Glucose 87 Lactic Acid 2.0 Calcium 8.9 Total Bilirubin 0.6 AST 25 ALT 34 Alkaline Phosphatase 203 H C-Reactive Protein 22.97 H Total Protein 7.2 Albumin 3.3 L Urine Color Urine Appearance Urine pH Ur Specific Baird Urine Protein Urine Glucose (UA) Urine Ketones Urine Blood Urine Nitrite Ur Leukocyte Esterase Urine RBC Urine WBC Ur Squamous Epith Cells Urine Bacteria Hyaline Casts Synovial Source Synovial WBC Synovial RBC Synovial Neutrophils Synovial Lymphocytes Synovial Monocytes Synovial Glucose Synovial Total Protein Synovial LDH COVID-19 (LAURY) Negative COVID-19 Clin Com See Note Influenza Type A (ZANE) Negative Influenza Type B (ZANE) Negative Influenza A & B Note See Note 09/22/23 20:29 MCV MCH MCHC RDW Plt Count MPV Immature Gran % (Auto) Neut % (Auto) Lymph % (Auto) Grady % (Auto) Eos % (Auto) Baso % (Auto) Lymph # (Auto) Grady # (Auto) Eos # (Auto) Baso # (Auto) Abs Immat Gran (auto) Absolute Neuts (auto) Absolute Nucleated RBC Nucleated RBC % (auto) Smear Tech's Comments ESR Anion Gap Estim Creat Clear Calc Estimated GFR Random Glucose Lactic Acid Calcium Total Bilirubin AST ALT Alkaline Phosphatase C-Reactive Protein Total Protein Albumin Urine Color Dark Yellow Urine Appearance Clear Urine pH 6.0 Ur Specific Baird 1.020 Urine Protein 300 (3+) H Urine Glucose (UA) Negative Urine Ketones Negative Urine Blood Moderate (2+) H Urine Nitrite Positive H Ur Leukocyte Esterase Moderate (2+) H Urine RBC >20 H Urine WBC >50 H Ur Squamous Epith Cells 0-2 Urine Bacteria 1+ Hyaline Casts 0-2 Synovial Source left knee Synovial WBC 250.920 Synovial RBC 0.030 Synovial Neutrophils 81 Synovial Lymphocytes 11 Synovial Monocytes 8 Synovial Glucose < 2 Synovial Total Protein 5.2 Synovial LDH 2243 COVID-19 (LAURY) COVID-19 Clin Com Influenza Type A (ZANE) Influenza Type B (ZANE) Influenza A & B Note Imaging Radiologist's Impressions: Impressions Chest X-Ray 09/22/23 18:07 IMPRESSION: No significant change compared to 07/28/2023. Knee X-Ray 09/22/23 18:10 IMPRESSION: Extremely limited examination without discrete acute abnormality. Evaluation with additional views or correlation with CT as clinically warranted. Assessment and Plan (1) Sepsis: Qualifiers: Sepsis type: sepsis due to unspecified organism Sepsis acute organ dysfunction status: unspecified Qualified Code(s): A41.9 - Sepsis, unspecified organism Status: Acute (2) Septic joint of left knee joint: Qualifiers: Septic arthritis organism: due to unspecified organism Qualified Code(s): M00.9 - Pyogenic arthritis, unspecified Status: Acute (3) UTI (urinary tract infection): Qualifiers: Urinary tract infection type: catheter-associated UTI Encounter type: initial encounter Indwelling urinary catheter type: indwelling urethral catheter Qualified Code(s): T83.511A - Infection and inflammatory reaction due to indwelling urethral catheter, initial encounter; N39.0 - Urinary tract infection, site not specified Status: Acute (4) Tracheostomy dependent: Status: Acute Plan Marino Marin is a 52 years old man with 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 Admit to hospitalist service. Keep NPO. Continue empiric IV antibiotic therapy with vancomycin and Zosyn. Synovial fluid culture obtained -will follow results. Orthopedic Service consult. SIRS criteria/sepsis likely secondary to septic arthritis and UTI: Fever and tachycardia. No hypotension. Lactic acid is normal. Blood cultures were obtained -will follow results. Continue IV fluids. Catheter-associated urinary tract infection. Continue empiric antibiotic therapy with Zosyn. Urine culture obtained -will follow results. Catheter replacement. BPH w/ chronic indwelling urinary catheter. Continue finasteride. Chronic respiratory failure on chronic tracheostomy. No evidence of pneumonia. Trach care. Acetylcysteine and DuoNeb inhalations as needed. Continue Robinul b.i.d., morphine, scopolamine. 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 Continue leucovorin, atovaquone and baclofen. Seizure disorder. Continue Vimpat. Chronic anemia. Continue to monitor hemoglobin. On midrodine. DVT prophylaxis: Heparin subcut Code status: Full Patient will need hospitalization for at least 2 midnights for sepsis secondary to septic arthritis and urinary tract infection treatment with broad-spectrum IV antibiotic and possible surgical intervention by orthopedic service. Quality Stroke Does the patient have a stroke diagnosis?: No VTE Prior VTE?: No VTE Risk Level:: Medical - moderate - high VTE Device Contraindication: Treatment Not Indicated VTE Drug Contraindication: N/A - Med Ordered
[2023-09-23] MEDS: 0.9 % Sodium Chloride 1,000 ML 999 ML IV (01:40)
--- NOTE | 2023-09-23 02:44 | PC.NURSE ---
Old rincon removed, per hospitalist. New catheter inserted. Pt tolerated procedure well, output approx 100mL of clear, yellow urine. Prior bag had approx 900mL dark, cloudy urine. Pt is resting comfortably at this time.
[2023-09-23] MEDS: Piperacillin Sodium/Tazobactam 3.375 GM in 0.9 % Sodium Chloride 50 ML IV ×3 (02:55→23:24)
[2023-09-23 05:14] LABS: MANUAL DIFF FLAG NO
[2023-09-23 05:18] LABS: Basophils Percent Auto 0.2 % (0-2); Eosinophils Absolute Auto 0.1 X10*3/uL (0.0-0.4); Eosinophils Percent Auto 0.9 % (0-4); Hematocrit 25.9 % (42.0-52.0); Hemoglobin 8.1 g/dl (14.0-18.0); Imm Gran Abs Auto 0.01 X10*3/uL (0.00-0.03); Imm Gran Pct Auto 0.2 % (0.0-0.4); Lymphocytes Absolute Auto 0.7 X10*3/uL (1.2-4.9); Lymphocytes Percent Auto 12.2 % (20-40); Mean Corpuscular HGB Conc 31.3 g/dl (31.0-36.0); Mean Corpuscular Hemoglobin 26.1 pg (27.0-33.0); Mean Corpuscular Volume 83.5 fL (80.0-98.0); Mean Platelet Volume 10.1 fL (9.4-12.4); Monocytes Absolute Auto 0.9 X10*3/uL (0.1-1.2); Monocytes Percent Auto 16.1 % (2-11); Neutrophils Percent Auto 70.4 % (45-73); Platelet Count 142 X10*3/uL (160-400); White Blood Count 5.7 X10*3/uL (4.8-10.8)
[2023-09-23 05:42] LABS: Alanine Aminotransferase 27 U/L (0-40); Albumin Level 2.8 g/dL (3.5-5.0); Alkaline Phosphatase 184 U/L (39-117); Anion Gap 12 (12-20); Aspartate Amino Transferase 20 U/L (5-37); Bilirubin Total 0.7 mg/dL (0.0-1.0); Blood Urea Nitrogen 16 mg/dL (9-16); Calcium 8.2 mg/dL (8.4-10.2); Carbon Dioxide 25 mmol/L (22-29); Chloride 107 mmol/L (96-108); Creatinine Clr Calc Pharmacy 109.5; Estimated Glomerular Filt Rate > 60; Glucose Random 105 mg/dL (60-115); Magnesium 1.9 mg/dL (1.6-2.6); Potassium 3.7 mmol/L (3.3-5.1); Sodium 140 mmol/L (135-145); Total Protein 6.3 g/dL (6.5-8.0)
[2023-09-23] MEDS: Midodrine HCl 2.5 MG TABLET 7.5 MG G-TUBE ×2 (06:40→10:18)
--- NOTE | 2023-09-23 06:41 | PC.NURSE ---
Pt temp noted to be elevated. Medicated with tylenol PRN per OCT.
--- NOTE | 2023-09-23 07:54 | PM.HPOR ---
History of Present Illness History of Present Illness Date of Service: 09/23/23 Chief complaint: septic arthritis Narrative: Marino Marin is a 52 year old male with an extensive past medical history tage IV mantle cell lymphoma, history of toxoplasmosis, chronic respiratory failure on a chronic tracheostomy, BPH with chronic Rubio catheter placement, chronic G-tube placement presents for evaluation of fever from [facility]. Patient has had a fever on and off for the last 4 days. The patient can not contribute to history however her staff here that is familiar with the patient he seems at his baseline There was some concern for left knee infection as the left knee joint has been edematous per notes from [facility]. Patient was unable to contribute to HPI so information was taken fro the ER HPI. [facility] Past Medical History Medical History Mantle cell lymphoma Aspiration into airway Tracheostomy dependent Stage IV decubitus ulcer Osteomyelitis of pelvis Anemia Toxoplasmosis Encephalopathy PARTS REPRESENTATIVE lymphoma Rectal bleeding H/O: RCT (rotator cuff tear) Depression Appendicitis Chronic pain Kidney stone Mantle cell lymphoma Family History Family History Mother COPD (chronic obstructive pulmonary disease) Sister Colon cancer Surgical History Surgical History History of appendectomy Social History Social History Household Members: None Housing: Longterm Housing Other:: [facility] Do you presently have visiting nurse or other home services: No Unable to assess alcohol history related to: Unknown Alcohol intake: unknown Patient Tobacco Use Status: Never used Tobacco Substance Use Type: Unknown Advance Directives: Yes Advance Directives on File: Yes Advance Directives Date on File: 06/04/23 service: No Current occupational status: unemployed Meds Allergies Allergy/AdvReac Type Severity Reaction Status Date / Time cyclobenzaprine [Flexeril] Allergy Unknown Palpitation Verified 09/22/20 15:41 s Active Medications: Current Medications Acetaminophen (Acetaminophen 325 Mg Tablet) 650 mg G-TUBE Q4H PRN PRN Reason: Fever Or Pain Last Admin: 09/23/23 06:40 Dose: 650 mg Acetylcysteine (Acetylcysteine 20 % 6,000 Mg/30 Ml Vial) 400 mg INHALE Q12H PRN PRN Reason: THICK AIRWAY SECRETION Albuterol Sulfate (Albuterol Sulfate (0.083%) 2.5 Mg/3 Ml Vial.Neb) 2.5 mg INHALE Q4H PRN PRN Reason: Shortness Of Breath Or Wheezing Albuterol/Ipratropium (Albuterol/Iprat 2.5/0.5mg 3 Ml Ampul.Neb) 3 ml INHALE Q4H PRN PRN Reason: Shortness of Breath/Wheezing Ascorbic Acid (Ascorbic Acid 250 Mg Tablet) 250 mg G-TUBE DAILY [facility] Atovaquone (Atovaquone 750 Mg/5 Ml Oral.Susp) 750 mg G-TUBE BIDWM [facility] Last Admin: 09/23/23 00:05 Dose: 750 mg Baclofen (Baclofen 10 Mg Tablet) 5 mg G-TUBE TID@0900,1300,1700 [facility] Bisacodyl (Bisacodyl 10 Mg Supp.Rect) 10 mg VA DAILY PRN PRN Reason: Constipation Cholestyramine Resin (Cholestyramine (With Sugar) 4 Gm Powd.Pack) 4 gm G-TUBE BIDWM [facility] Finasteride (Finasteride 5 Mg Tablet) 5 mg PO DAILY [facility] Glycopyrrolate (Glycopyrrolate 1 Mg Tablet) 0.5 mg G-TUBE BID [facility] Last Admin: 09/23/23 00:06 Dose: 0.5 mg Guaifenesin (Guaifenesin 100 Mg/5 Ml Liquid) 200 ml PO Q4H PRN PRN Reason: Cough Heparin Sodium (Porcine) (Heparin Sodium,Porcine 5,000 Unit/Ml Vial) 5,000 unit SUBCUT Q8H [facility] Dextrose/Sodium Chloride (D5ns) 1,000 mls @ 100 mls/hr IVCONT .Q10H [facility] Last Admin: 09/22/23 22:53 Dose: 100 mls/hr Piperacillin Sod/Tazobactam (Sod 3.375 gm/ Sodium Chloride) 50 mls @ 100 mls/hr IV Q6H [facility] Last Infusion: 09/23/23 04:01 Dose: Infused Ibuprofen (Ibuprofen 600 Mg Tablet) 600 mg G-TUBE Q8H PRN PRN Reason: FEVER UNRESPONSIVE TO APAP Lacosamide (Lacosamide 100 Mg Tablet) 200 mg G-TUBE BID [facility] Last Admin: 09/23/23 00:06 Dose: 200 mg Leucovorin Calcium (Leucovorin Calcium 5 Mg Tablet) 25 mg G-TUBE BEDTIME [facility] Loperamide HCl (Loperamide Hcl 2 Mg Capsule) 2 mg G-TUBE Q4H PRN PRN Reason: Diarrhea Lorazepam (Lorazepam 0.5 Mg Tablet) 0.5 mg G-TUBE Q6H PRN PRN Reason: Anxiety Magnesium Hydroxide (Milk Of Magnesia 30 Ml Oral.Susp) 30 ml G-TUBE DAILY PRN PRN Reason: Constipation Melatonin (Melatonin 3 Mg Tablet) 3 mg G-TUBE BEDTIME [facility] Last Admin: 09/23/23 00:06 Dose: 3 mg Midodrine (Midodrine Hcl 2.5 Mg Tablet) 7.5 mg G-TUBE TID@0600,1000,1400 [facility] Last Admin: 09/23/23 06:40 Dose: 7.5 mg Morphine Sulfate (Morphine Sulfate Oral Cady 10 Mg/5 Ml Solution) 5 mg G-TUBE DAILY@1700 [facility] Last Admin: 09/23/23 00:05 Dose: 5 mg Morphine Sulfate (Morphine Sulfate Oral Cady 10 Mg/5 Ml Solution) 10 mg G-TUBE DAILY [facility] Multivitamins/Vitamin C (Multivitamin Tablet) 1 tab PO DAILY [facility] Non-Formulary Medication (Pyrimethamine) 50 mg feeding tube DAILY [facility] Ondansetron HCl (Ondansetron Hcl 4 Mg/2 Ml Vial) 4 mg IM Q4H PRN PRN Reason: Nausea And Vomiting Ondansetron HCl (Ondansetron Odt 4 Mg Tab.Rapdis) 4 mg TRANSLINGU Q4H PRN PRN Reason: Nausea And Vomiting Oxycodone HCl (Oxycodone Hcl Immed Release 5 Mg Tablet) 5 mg G-TUBE Q4H PRN PRN Reason: Pain (Scale Score 4-6) Pharmacy Consult (Consult Rx Vancomycin Dosing) 1 each MISCELLANE DAILY PRN PRN Reason: Consult order Polyethyl Glycol/Propylene Glycol (Propylene Glycol/Peg 400 Gel Eye Drops 10ml) 2 drop EYE-BOTH BID [facility] Scopolamine (Scopolamine 1.5 Mg Patch.Td.3) 1.5 mg TRANSDERMA Q3D [facility] Last Admin: 09/23/23 00:07 Dose: Not Given Senna/Docusate Sodium (Sennosides/Docusate Sodium Tablet) 2 tab PO BID@0900,1700 [facility] Last Admin: 09/23/23 00:06 Dose: 2 tab Sodium Biphosphate/Sodium Phosphate (Sodium Phosphate,[place]-Dibasic 133 Ml Enema) 133 ml VA DAILY PRN PRN Reason: Constipation Sodium Chloride (0.9 % Sodium Chloride Flush 3 Ml Syringe) 3 ml IVFLUSH QSHIFT [facility] Last Admin: 09/22/23 23:01 Dose: Not Given Sucralfate (Sucralfate 1 Gm Tablet) 1 gm PO BID@1300,1700 [facility] Tramadol HCl (Tramadol Hcl 50 Mg Tablet) 50 mg G-TUBE Q4H PRN PRN Reason: Pain (Scale Score 1-3) Triamcinolone Acetonide (Triamcinolone Acet 0.5 % Oint 15 Gm Tube) 1 appl TOPICAL DAILY [facility] Zinc Sulfate (Zinc Sulfate 220 Mg Capsule) 220 mg G-TUBE DAILY [facility] Home Medications Medication Instructions Recorded Confirmed Last Taken Type acetaminophen 325 mg tablet 650 mg feeding tube Q4H PRN Fever 01/02/23 09/22/23 09/22/23 History Or Pain albuterol sulfate 2.5 mg/3 mL 2.5 mg inhalation Q4H PRN 01/02/23 09/22/23 Unknown History (0.083 %) solution for nebulization Shortness Of Breath Or Wheezing ascorbic acid (vitamin C) 250 mg 250 mg feeding tube DAILY 01/02/23 09/22/23 09/22/23 History tablet atovaquone 750 mg/5 mL oral 750 mg feeding tube BIDWM 01/02/23 09/22/23 09/22/23 History suspension baclofen 10 mg tablet 5 mg feeding tube 01/02/23 09/22/23 09/22/23 History TID@0900,1300,1700 bisacodyl 10 mg rectal suppository 10 mg VA DAILY PRN Constipation 01/02/23 09/22/23 Unknown History cholecalciferol (vitamin D3) 1,250 1,250 mcg feeding tube QMONTH 01/02/23 09/22/23 08/29/23 History mcg (50,000 unit) tablet cholestyramine-aspartame 4 gram 4 g feeding tube BIDWM 01/02/23 09/22/23 09/22/23 History oral powder for susp in a packet (Cholestyramine Light) finasteride 5 mg tablet 5 mg feeding tube DAILY 01/02/23 09/22/23 09/22/23 History glycopyrrolate 1 mg tablet 0.5 mg feeding tube BID 01/02/23 09/22/23 09/22/23 History guaifenesin 200 mg/5 mL oral liquid 200 mg feeding tube Q4H PRN Cough 01/02/23 09/22/23 Unknown History lacosamide 200 mg tablet 200 mg feeding tube BID 01/02/23 09/22/23 09/22/23 History leucovorin calcium 25 mg tablet 25 mg feeding tube BEDTIME 01/02/23 09/22/23 09/22/23 History loperamide 2 mg capsule 2 mg feeding tube Q4H PRN Diarrhea 01/02/23 09/22/23 Unknown History lorazepam 0.5 mg tablet 0.5 mg feeding tube Q6H PRN Anxiety 01/02/23 09/22/23 09/22/23 History lorazepam 2 mg/mL injection 2 mg IM ONCE PRN Seizures 01/02/23 09/22/23 Unknown History solution magnesium hydroxide 400 mg/5 mL 30 ml feeding tube DAILY PRN 01/02/23 09/22/23 Unknown History oral suspension (Milk of Magnesia) Constipation melatonin 3 mg tablet 3 mg feeding tube BEDTIME 01/02/23 09/22/23 09/22/23 History midodrine 5 mg tablet 7.5 mg feeding tube 01/02/23 09/22/23 09/22/23 History TID@0600,1000,1400 morphine 10 mg/5 mL oral solution 10 mg feeding tube DAILY 01/02/23 09/22/23 09/22/23 History ondansetron HCl 2 mg/mL 4 mg IM Q4H PRN Nausea And Vomiting 01/02/23 09/22/23 Unknown History intravenous solution ondansetron HCl 4 mg tablet 4 mg feeding tube Q4H PRN Nausea 01/02/23 09/22/23 Unknown History And Vomiting oxycodone 5 mg tablet 5 mg feeding tube Q4H PRN Pain 01/02/23 09/22/23 09/22/23 10:02 History (Scale Score 4-6) scopolamine base 1 mg over 3 days 1 patch transdermal Q3D 01/02/23 09/22/23 09/22/23 History transdermal patch sennosides 8.6 mg-docusate sodium 2 tab-cap PO BID@0900,1700 01/02/23 09/22/23 09/22/23 History 50 mg tablet (Senna with Docusate Constipation Sodium) sodium phosphates 19 gram-7 118 ml VA DAILY PRN Constipation 01/02/23 09/22/23 Unknown History gram/118 mL enema (Fleet Enema) tramadol 50 mg tablet 50 mg feeding tube Q4H PRN Pain 01/02/23 09/22/23 Unknown History (Scale Score 1-3) zinc sulfate 50 mg zinc (220 mg) 50 mg feeding tube DAILY 01/02/23 09/22/23 09/22/23 History tablet multivitamin 1 tab feeding tube DAILY 01/31/23 09/22/23 09/22/23 History pyrimethamine 25 mg tablet 50 mg feeding tube DAILY 01/31/23 09/22/23 09/22/23 History betamethasone dipropionate 0.05 % 1 appl topical DAILY 06/04/23 09/22/23 09/22/23 History topical ointment carboxymethylcellulose sodium 0.25 2 drp ophthalmic (eye) BID 06/04/23 09/22/23 09/22/23 History % eye drops morphine 10 mg/5 mL oral solution 5 mg feeding tube DAILY@1700 06/04/23 09/22/23 09/22/23 History sucralfate 1 gram tablet 1 g PO BID@1300,1700 06/04/23 09/22/23 09/22/23 History acetylcysteine 200 mg/mL (20 %) 2 ml inhalation Q12H PRN THICK 09/22/23 09/22/23 Unknown History solution AIRWAY SECRETION ibuprofen 600 mg tablet 600 mg PO Q8H PRN FEVER 09/22/23 09/22/23 Unknown History UNRESPONSIVE TO APAP Physical Exam Vital Signs: Vital Signs: Last Vital Signs Temp 100.4 F 09/23/23 06:36 Pulse 102 H 09/23/23 06:36 Resp 12 09/23/23 06:36 BP 123/70 09/23/23 06:36 Pulse Ox 99 09/23/23 06:36 O2 Del Method Trach Collar 09/23/23 06:36 O2 Flow Rate 7 09/23/23 06:36 BMI result Body Mass Index 22.3 Const: General: cooperative, healthy appearing and no acute distress Resp: Effort & Inspection: normal respiratory effort and able to speak in complete sentences Cardio: Rate: regular rate Peripheral pulses: Peripheral pulses 2+ throughout GI: Palpation (GI): Soft to palpation Skin: Lesions: no lesions Rashes: no rashes Extrem: Other: Left knee held in flexion. Facial expression alerts to pain with attempted ROM. Aspiration site noted covering with adhesive bandage. Results Labs 09/23/23 05:08 09/23/23 05:08 Labs: Abnormal lab results 09/22/23 09/22/23 09/22/23 Range/Units 17:15 17:26 20:29 RBC 3.47 L (4.60-5.80) X10*6/uL Hgb 9.2 L (14.0-18.0) g/dl Hct 29.2 L (42.0-52.0) % MCH 26.5 L (27.0-33.0) pg RDW 18.4 H (11.0-16.0) % Plt Count (160-400) X10*3/uL Immature Gran % (Auto) 0.5 H (0.0-0.4) % Lymph % (Auto) 11.7 L (20-40) % [place] % (Auto) 17.8 H (2-11) % Lymph # (Auto) 1.0 L (1.2-4.9) X10*3/uL [place] # (Auto) 1.5 H (0.1-1.2) X10*3/uL Abs Immat Gran (auto) 0.04 H (0.00-0.03) X10*3/uL ESR 105 H (0-15) MM/HR BUN 27 H (9-16) mg/dL Calcium (8.4-10.2) mg/dL Alkaline Phosphatase 203 H (39-117) U/L C-Reactive Protein 22.97 H (< or = 0.50) mg/dL Total Protein (6.5-8.0) g/dL Albumin 3.3 L (3.5-5.0) g/dL Urine Protein 300 (3+) H (Neg-Trace) mg/dL Urine Blood Moderate (2+) H (Negative) Urine Nitrite Positive H (Negative) Ur Leukocyte Esterase Moderate (2+) H (Negative) Urine RBC >20 H (0-2) /HPF Urine WBC >50 H (0-5) /HPF 09/23/23 Range/Units 05:08 RBC 3.10 L (4.60-5.80) X10*6/uL Hgb 8.1 L (14.0-18.0) g/dl Hct 25.9 L (42.0-52.0) % MCH 26.1 L (27.0-33.0) pg RDW 18.0 H (11.0-16.0) % Plt Count 142 L (160-400) X10*3/uL Immature Gran % (Auto) (0.0-0.4) % Lymph % (Auto) 12.2 L (20-40) % [place] % (Auto) 16.1 H (2-11) % Lymph # (Auto) 0.7 L (1.2-4.9) X10*3/uL [place] # (Auto) (0.1-1.2) X10*3/uL Abs Immat Gran (auto) (0.00-0.03) X10*3/uL ESR (0-15) MM/HR BUN (9-16) mg/dL Calcium 8.2 L D (8.4-10.2) mg/dL Alkaline Phosphatase 184 H (39-117) U/L C-Reactive Protein (< or = 0.50) mg/dL Total Protein 6.3 L (6.5-8.0) g/dL Albumin 2.8 L (3.5-5.0) g/dL Urine Protein (Neg-Trace) mg/dL Urine Blood (Negative) Urine Nitrite (Negative) Ur Leukocyte Esterase (Negative) Urine RBC (0-2) /HPF Urine WBC (0-5) /HPF H & H 09/22/23 09/23/23 Range/Units 17:15 05:08 Hgb 9.2 L 8.1 L (14.0-18.0) g/dl Hct 29.2 L 25.9 L (42.0-52.0) % All other labs normal. Assessment and Plan (1) Septic joint of left knee joint: Qualifiers: Septic arthritis organism: due to unspecified organism Qualified Code(s): M00.9 - Pyogenic arthritis, unspecified Status: Acute Remain NPO Pain management as appropriate Plan for OR wash out this afternoon Call placed to HCP Cornelius Johnson at [phone] with no answer. Left message for a call back to discuss the case and obtain consent. Addendum will be added once able to speak with HCP. (2) Sepsis: Qualifiers: Sepsis acute organ dysfunction status: unspecified Sepsis type: sepsis due to unspecified organism Qualified Code(s): A41.9 - Sepsis, unspecified organism Status: Acute Quality Stroke Does the patient have a stroke diagnosis?: No VTE Prior VTE?: No VTE Risk Level:: Medical - moderate - high VTE Device Contraindication: Treatment Not Indicated VTE Drug Contraindication: N/A - Med Ordered Procedures Date of Service Date of Service: 09/23/23
--- NOTE | 2023-09-23 09:58 | PHA.PROG ---
Admission Date/Time: September 22, 2023 22:37 Indication: Skin Weight in k.6 kg Serum Creatinine - Last 168 Hours 09/22/23 09/23/23 17:15 05:08 Creatinine 0.82 0.76 Estimated CrCl and GFR - Last 168 Hours 09/22/23 09/23/23 17:15 05:08 Estim Creat Clear Calc 101.5 109.5 Estimated GFR > 60 > 60 Vancomycin Loading Dose: 1,500mg Current Vancomycin Dosing Regimen: 1,000mg Q12H Vancomycin Monitoring using AUC goal of 400 - 600 range with trough as surrogate marker: 477 Date and Time for next Vancomycin Level to be drawn: 09/24 at 8am Pharmacist Comments on Vancomycin Plan: predicted trough: 14.1, will continue to monitor renal function and adjust accordingly Vancomycin dosing will take advantage of [employer] as a clinical decision support tool that uses Bayesian modeling to calculate individual patient's pharmacokinetic parameters and forecast the patient's drug concentration time course with the target goal AUC 24 range of 400 - 600 mg/L/hr.
[2023-09-23] MEDS: Morphine Sulfate Oral Sol 10 MG/5 ML SOLUTION G-TUBE (10:01)
[2023-09-23] MEDS: Baclofen 10 MG TABLET 5 MG G-TUBE ×2 (10:01→13:31)
[2023-09-23] MEDS: Cholestyramine (With Sugar) 4 GM POWD.PACK G-TUBE (10:02)
[2023-09-23] MEDS: Multivitamin TABLET 1 TAB PO (10:02)
[2023-09-23] MEDS: Zinc Sulfate 220 MG CAPSULE G-TUBE (10:18)
[2023-09-23] MEDS: Finasteride 5 MG TABLET PO (10:18)
[2023-09-23] MEDS: Ascorbic Acid 250 MG TABLET G-TUBE (10:19)
[2023-09-23] MEDS: Propylene Glycol/PEG 400 Gel Eye Drops 10ML 2 DROP EYE-BOTH (10:19)
[2023-09-23] MEDS: Dextrose 5 % and 0.9 % NaCl 1,000 ML 100 ML IVCONT ×2 (10:40→17:50)
--- NOTE | 2023-09-23 11:29 | P.PNIM_ITS ---
Subjective Subjective Date of Service: 09/23/23 Physical Exam 2 Vital Signs: Vital Signs: Last Vital Signs Temp 99.7 F 09/23/23 09:28 Pulse 100 09/23/23 09:28 Resp 16 09/23/23 09:28 BP 114/67 09/23/23 09:28 Pulse Ox 97 09/23/23 09:28 O2 Del Method Room Air 09/23/23 09:28 O2 Flow Rate 7 09/23/23 06:36 BMI result Body Mass Index 22.3 Objective Data Active Medications Acetaminophen (Acetaminophen 325 Mg Tablet) 650 mg G-TUBE Q4H PRN PRN Reason: Fever Or Pain Last Admin: 09/23/23 06:40 Dose: 650 mg Documented By: JOHNNY Acetylcysteine (Acetylcysteine 20 % 6,000 Mg/30 Ml Vial) 400 mg INHALE Q12H PRN PRN Reason: THICK [employer] Albuterol Sulfate (Albuterol Sulfate (0.083%) 2.5 Mg/3 Ml Vial.Neb) 2.5 mg INHALE Q4H PRN PRN Reason: Shortness Of Breath Or Wheezing Albuterol/Ipratropium (Albuterol/Iprat 2.5/0.5mg 3 Ml Ampul.Neb) 3 ml INHALE Q4H PRN PRN Reason: Shortness of Breath/Wheezing Ascorbic Acid (Ascorbic Acid 250 Mg Tablet) 250 mg G-TUBE DAILY [facility] [place] Last Admin: 09/23/23 10:19 Dose: 250 mg Documented By: CHAYA Atovaquone (Atovaquone 750 Mg/5 Ml Oral.Susp) 750 mg G-TUBE BIDWM [facility] [place] Last Admin: 09/23/23 10:18 Dose: 750 mg Documented By: CHAYA Baclofen (Baclofen 10 Mg Tablet) 5 mg G-TUBE TID@0900,1300,1700 [facility] [place] Last Admin: 09/23/23 10:01 Dose: 5 mg Documented By: CHAYA Bisacodyl (Bisacodyl 10 Mg Supp.Rect) 10 mg PA DAILY PRN PRN Reason: Constipation Cholestyramine Resin (Cholestyramine (With Sugar) 4 Gm Powd.Pack) 4 gm G-TUBE BIDWM [facility] [place] Last Admin: 09/23/23 10:02 Dose: 4 gm Documented By: CHAYA Finasteride (Finasteride 5 Mg Tablet) 5 mg PO DAILY [facility] [place] Last Admin: 09/23/23 10:18 Dose: 5 mg Documented By: CHAYA Glycopyrrolate (Glycopyrrolate 1 Mg Tablet) 0.5 mg G-TUBE BID [facility] [place] Last Admin: 09/23/23 00:06 Dose: 0.5 mg Documented By: JOHNNY Guaifenesin (Guaifenesin 200 Mg/10 Ml 10 Ml Liquid) 10 ml PO Q4H PRN PRN Reason: Cough Heparin Sodium (Porcine) (Heparin Sodium,Porcine 5,000 Unit/Ml Vial) 5,000 unit SUBCUT Q8H [facility] [place] Dextrose/Sodium Chloride (D5ns) 1,000 mls @ 100 mls/hr IVCONT .Q10H [facility] [place] Last Admin: 09/23/23 10:40 Dose: 100 mls/hr Documented By: CHAYA Piperacillin Sod/Tazobactam (Sod 3.375 gm/ Sodium Chloride) 50 mls @ 100 mls/hr IV Q6H [facility] [place] Last Admin: 09/23/23 09:59 Dose: 100 mls/hr Documented By: CHAYA Vancomycin HCl 1,000 mg/ (Sodium Chloride) 270 mls @ 270 mls/hr IV Q24H [facility] [place] Ibuprofen (Ibuprofen 600 Mg Tablet) 600 mg G-TUBE Q8H PRN PRN Reason: FEVER UNRESPONSIVE TO APAP Lacosamide (Lacosamide 100 Mg Tablet) 200 mg G-TUBE BID [facility] [place] Last Admin: 09/23/23 10:02 Dose: 200 mg Documented By: CHAYA Leucovorin Calcium (Leucovorin Calcium 5 Mg Tablet) 25 mg G-TUBE BEDTIME [facility] [place] Loperamide HCl (Loperamide Hcl 2 Mg Capsule) 2 mg G-TUBE Q4H PRN PRN Reason: Diarrhea Lorazepam (Lorazepam 0.5 Mg Tablet) 0.5 mg G-TUBE Q6H PRN PRN Reason: Anxiety Magnesium Hydroxide (Milk Of Magnesia 30 Ml Oral.Susp) 30 ml G-TUBE DAILY PRN PRN Reason: Constipation Melatonin (Melatonin 3 Mg Tablet) 3 mg G-TUBE BEDTIME [facility] [place] Last Admin: 09/23/23 00:06 Dose: 3 mg Documented By: JOHNNY Midodrine (Midodrine Hcl 2.5 Mg Tablet) 7.5 mg G-TUBE TID@0600,1000,1400 [facility] [place] Last Admin: 09/23/23 10:18 Dose: 7.5 mg Documented By: CHAYA Morphine Sulfate (Morphine Sulfate Oral Cady 10 Mg/5 Ml Solution) 5 mg G-TUBE DAILY@1700 [facility] [place] Last Admin: 09/23/23 00:05 Dose: 5 mg Documented By: JOHNNY Morphine Sulfate (Morphine Sulfate Oral Cady 10 Mg/5 Ml Solution) 10 mg G-TUBE DAILY [facility] [place] Last Admin: 09/23/23 10:01 Dose: 10 mg Documented By: CHAYA Multivitamins/Vitamin C (Multivitamin Tablet) 1 tab PO DAILY [facility] [place] Last Admin: 09/23/23 10:02 Dose: 1 tab Documented By: CHAYA Non-Formulary Medication (Pyrimethamine) 50 mg feeding tube DAILY [facility] [place] Ondansetron HCl (Ondansetron Hcl 4 Mg/2 Ml Vial) 4 mg IM Q4H PRN PRN Reason: Nausea And Vomiting Ondansetron HCl (Ondansetron Odt 4 Mg Tab.Rapdis) 4 mg TRANSLINGU Q4H PRN PRN Reason: Nausea And Vomiting Oxycodone HCl (Oxycodone Hcl Immed Release 5 Mg Tablet) 5 mg G-TUBE Q4H PRN PRN Reason: Pain (Scale Score 4-6) Pharmacy Consult (Consult Rx Vancomycin Dosing) 1 each MISCELLANE DAILY PRN PRN Reason: Consult order Polyethyl Glycol/Propylene Glycol (Propylene Glycol/Peg 400 Gel Eye Drops 10ml) 2 drop EYE-BOTH BID [facility] [place] Last Admin: 09/23/23 10:19 Dose: 1 drop Documented By: CHAYA Scopolamine (Scopolamine 1.5 Mg Patch.Td.3) 1.5 mg TRANSDERMA Q3D [facility] [place] Last Admin: 09/23/23 00:07 Dose: Not Given Documented By: JOHNNY Non-Admin Reason: Med Not Available Senna/Docusate Sodium (Sennosides/Docusate Sodium Tablet) 2 tab PO BID@0900,1700 [facility] [place] Last Admin: 09/23/23 10:02 Dose: 2 tab Documented By: CHAYA Sodium Biphosphate/Sodium Phosphate (Sodium Phosphate,Robeson-Dibasic 133 Ml Enema) 133 ml PA DAILY PRN PRN Reason: Constipation Sodium Chloride (0.9 % Sodium Chloride Flush 3 Ml Syringe) 3 ml IVFLUSH QSHIFT [facility] [place] Last Admin: 09/23/23 10:43 Dose: Not Given Documented By: CHAYA Non-Admin Reason: IV Running Sucralfate (Sucralfate 1 Gm Tablet) 1 gm PO BID@1300,1700 [facility] [place] Tramadol HCl (Tramadol Hcl 50 Mg Tablet) 50 mg G-TUBE Q4H PRN PRN Reason: Pain (Scale Score 1-3) Triamcinolone Acetonide (Triamcinolone Acet 0.5 % Oint 15 Gm Tube) 1 appl TOPICAL DAILY [facility] Zinc Sulfate (Zinc Sulfate 220 Mg Capsule) 220 mg G-TUBE DAILY [facility] [place] Last Admin: 09/23/23 10:18 Dose: 220 mg Documented By: CHAYA Labs 09/23/23 05:08 09/23/23 05:08 Labs: Laboratory Results - last 24 hr 09/22/23 09/22/23 09/22/23 17:15 17:24 17:26 MCV 84.1 MCH 26.5 L MCHC 31.5 RDW 18.4 H Plt Count 169 MPV 10.4 Immature Gran % (Auto) 0.5 H Neut % (Auto) 68.7 Lymph % (Auto) 11.7 L Robeson % (Auto) 17.8 H Eos % (Auto) 1.2 Baso % (Auto) 0.1 Lymph # (Auto) 1.0 L Robeson # (Auto) 1.5 H Eos # (Auto) 0.1 Baso # (Auto) 0.0 Abs Immat Gran (auto) 0.04 H Absolute Neuts (auto) 5.9 Absolute Nucleated RBC 0.000 Nucleated RBC % (auto) 0.0 Smear Tech's Comments VERIFIED ESR 105 H Anion Gap 12 Estim Creat Clear Calc 101.5 Estimated GFR > 60 Random Glucose 87 Lactic Acid 2.0 Calcium 8.9 Magnesium Total Bilirubin 0.6 AST 25 ALT 34 Alkaline Phosphatase 203 H C-Reactive Protein 22.97 H Total Protein 7.2 Albumin 3.3 L Urine Color Urine Appearance Urine pH Ur Specific [place] Urine Protein Urine Glucose (UA) Urine Ketones Urine Blood Urine Nitrite Ur Leukocyte Esterase Urine RBC Urine WBC Ur Squamous Epith Cells Urine Bacteria Hyaline Casts Synovial Source Synovial WBC Synovial RBC Synovial Neutrophils Synovial Lymphocytes Synovial Monocytes Synovial Glucose Synovial Total Protein Synovial LDH COVID-19 (LAURY) Negative COVID-19 Clin Com See Note Influenza Type A (ZANE) Negative Influenza Type B (ZANE) Negative Influenza A & B Note See Note 09/22/23 09/23/23 20:29 05:08 MCV 83.5 MCH 26.1 L MCHC 31.3 RDW 18.0 H Plt Count 142 L MPV 10.1 Immature Gran % (Auto) 0.2 Neut % (Auto) 70.4 Lymph % (Auto) 12.2 L Robeson % (Auto) 16.1 H Eos % (Auto) 0.9 Baso % (Auto) 0.2 Lymph # (Auto) 0.7 L Robeson # (Auto) 0.9 Eos # (Auto) 0.1 Baso # (Auto) 0.0 Abs Immat Gran (auto) 0.01 Absolute Neuts (auto) 4.0 Absolute Nucleated RBC 0.000 Nucleated RBC % (auto) 0.0 Smear Tech's Comments ESR Anion Gap 12 Estim Creat Clear Calc 109.5 Estimated GFR > 60 Random Glucose 105 Lactic Acid Calcium 8.2 L D Magnesium 1.9 Total Bilirubin 0.7 AST 20 ALT 27 Alkaline Phosphatase 184 H C-Reactive Protein Total Protein 6.3 L Albumin 2.8 L Urine Color Dark Yellow Urine Appearance Clear Urine pH 6.0 Ur Specific [place] 1.020 Urine Protein 300 (3+) H Urine Glucose (UA) Negative Urine Ketones Negative Urine Blood Moderate (2+) H Urine Nitrite Positive H Ur Leukocyte Esterase Moderate (2+) H Urine RBC >20 H Urine WBC >50 H Ur Squamous Epith Cells 0-2 Urine Bacteria 1+ Hyaline Casts 0-2 Synovial Source left knee Synovial WBC 250.920 Synovial RBC 0.030 Synovial Neutrophils 81 Synovial Lymphocytes 11 Synovial Monocytes 8 Synovial Glucose < 2 Synovial Total Protein 5.2 Synovial LDH 2243 COVID-19 (LAURY) COVID-19 Clin Com Influenza Type A (ZANE) Influenza Type B (ZANE) Influenza A & B Note Microbiology Microbiology Results: Microbiology 09/22/23 20:29 Gram Stain - Final Knee aspirate Assessment and Plan (1) Sepsis: Status: Acute (2) Septic joint of left knee joint: Status: Acute (3) UTI (urinary tract infection): Status: Acute Plan Marino Marin is a 52 years old man with [employer] 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 NPO for wash out by orthopedic today Pending fluids and blood cultures IV antibiotic therapy with vancomycin and Zosyn. Orthopedic consult. acute Catheter-associated urinary tract infection. Pending cultures Continue Zosyn. Catheter replacement. BPH w/ chronic indwelling urinary catheter. Continue finasteride. Chronic respiratory failure on chronic tracheostomy. Trach care. Acetylcysteine and DuoNeb inhalations as needed. Continue Robinul b.i.d., morphine, scopolamine. 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 Continue leucovorin, atovaquone and baclofen. Seizure disorder. Continue Vimpat. Chronic anemia. Continue to monitor hemoglobin. DVT prophylaxis: Heparin subcut Code status: Full Patient will need hospitalization overnight for sepsis secondary to septic arthritis and urinary tract infection treatment with broad-spectrum IV antibiotic and surgical intervention by orthopedic service. Quality Stroke Does the patient have a stroke diagnosis?: No VTE Prior VTE?: No VTE Risk Level:: Medical - moderate - high VTE Device Contraindication: Treatment Not Indicated VTE Drug Contraindication: N/A - Med Ordered
--- NOTE | 2023-09-23 11:39 | MHC.CM.PN ---
CM COMPLETED ASSESSMENT W/ HCP LUCAS (ON FILE AND VERIFIED) VIA TELEPHONE AND NOTIFIED OF ADMISSION. PATIENT IS FROM [facility]. NONVERBAL, DEPENDENT FOR ALL CARE, TRACH/G TUBE/CHRONIC RED. PCP FABIANA MARTIN NP DP: RETURN TO [facility] VIA BLS WHEN MEDICALLY CLEARED. CM WILL CONTINUE TO FOLLOW.
[2023-09-23] MEDS: vancomycin HCL 1,000 MG in 0.9 % Sodium Chloride 250 ML 270 MG IV (11:42)
--- NOTE | 2023-09-23 12:02 | PC.NURSE ---
per lab, synovial fluid came back positive for gram coccyx , will notify attending.
[2023-09-23] MEDS: Sucralfate 1 GM TABLET PO (13:31)
--- NOTE | 2023-09-23 14:08 | HO.ANESPROP2 ---
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 Rectal bleeding H/O: RCT (rotator cuff tear) Depression Appendicitis Chronic pain Kidney stone Mantle cell lymphoma Family History Family History Mother COPD (chronic obstructive pulmonary disease) Sister Colon cancer Family history of problems with anesthesia: No Surgical History Surgical History History of appendectomy History of Problems with Anesthesia: No Social History Social History Household Members: None Housing: [facility] Housing Other:: [facility] Do you presently have visiting nurse or other home services: No Unable to assess alcohol history related to: Unknown Alcohol intake: unknown Patient Tobacco Use Status: Never used Tobacco Second Hand Smoke Exposure: No Use of substances other than those prescribed or required for medical reasons: No Substance Use Type: Unknown Are you DNR?: No Advance Directives: Yes Advance Directives Information Provided: No Advance Directives on File: Yes Advance Directives Date on File: 06/04/23 service: No Current occupational status: unemployed Meds Allergies Allergy/AdvReac Type Severity Reaction Status Date / Time cyclobenzaprine [Flexeril] Allergy Unknown Palpitation Verified 09/22/20 15:41 s Active Medications: Current Medications Acetaminophen (Acetaminophen 325 Mg Tablet) 650 mg G-TUBE Q4H PRN PRN Reason: Fever Or Pain Last Admin: 09/23/23 11:54 Dose: 650 mg Acetylcysteine (Acetylcysteine 20 % 6,000 Mg/30 Ml Vial) 400 mg INHALE Q12H PRN PRN Reason: THICK AIRWAY SECRETION Albuterol Sulfate (Albuterol Sulfate (0.083%) 2.5 Mg/3 Ml Vial.Neb) 2.5 mg INHALE Q4H PRN PRN Reason: Shortness Of Breath Or Wheezing Albuterol/Ipratropium (Albuterol/Iprat 2.5/0.5mg 3 Ml Ampul.Neb) 3 ml INHALE Q4H PRN PRN Reason: Shortness of Breath/Wheezing Ascorbic Acid (Ascorbic Acid 250 Mg Tablet) 250 mg G-TUBE DAILY [facility] Last Admin: 09/23/23 10:19 Dose: 250 mg Atovaquone (Atovaquone 750 Mg/5 Ml Oral.Susp) 750 mg G-TUBE BIDWM [facility] Last Admin: 09/23/23 10:18 Dose: 750 mg Baclofen (Baclofen 10 Mg Tablet) 5 mg G-TUBE TID@0900,1300,1700 [facility] Last Admin: 09/23/23 13:31 Dose: 5 mg Bisacodyl (Bisacodyl 10 Mg Supp.Rect) 10 mg IN DAILY PRN PRN Reason: Constipation Cholestyramine Resin (Cholestyramine (With Sugar) 4 Gm Powd.Pack) 4 gm G-TUBE BIDWM [facility] Last Admin: 09/23/23 10:02 Dose: 4 gm Finasteride (Finasteride 5 Mg Tablet) 5 mg PO DAILY [facility] Last Admin: 09/23/23 10:18 Dose: 5 mg Glycopyrrolate (Glycopyrrolate 1 Mg Tablet) 0.5 mg G-TUBE BID [facility] Last Admin: 09/23/23 11:16 Dose: 0.5 mg Guaifenesin (Guaifenesin 200 Mg/10 Ml 10 Ml Liquid) 10 ml PO Q4H PRN PRN Reason: Cough Heparin Sodium (Porcine) (Heparin Sodium,Porcine 5,000 Unit/Ml Vial) 5,000 unit SUBCUT Q8H [facility] Dextrose/Sodium Chloride (D5ns) 1,000 mls @ 100 mls/hr IVCONT .Q10H [facility] Last Admin: 09/23/23 10:40 Dose: 100 mls/hr Piperacillin Sod/Tazobactam (Sod 3.375 gm/ Sodium Chloride) 50 mls @ 100 mls/hr IV Q6H [facility] Last Admin: 02/09/24 09:59 Dose: 100 mls/hr Vancomycin HCl 1,000 mg/ (Sodium Chloride) 270 mls @ 270 mls/hr IV Q12H [facility] Ibuprofen (Ibuprofen 600 Mg Tablet) 600 mg G-TUBE Q8H PRN PRN Reason: FEVER UNRESPONSIVE TO APAP Lacosamide (Lacosamide 100 Mg Tablet) 200 mg G-TUBE BID [facility] Last Admin: 09/23/23 10:02 Dose: 200 mg Loperamide HCl (Loperamide Hcl 2 Mg Capsule) 2 mg G-TUBE Q4H PRN PRN Reason: Diarrhea Lorazepam (Lorazepam 0.5 Mg Tablet) 0.5 mg G-TUBE Q6H PRN PRN Reason: Anxiety Magnesium Hydroxide (Milk Of Magnesia 30 Ml Oral.Susp) 30 ml G-TUBE DAILY PRN PRN Reason: Constipation Melatonin (Melatonin 3 Mg Tablet) 3 mg G-TUBE BEDTIME [facility] Last Admin: 09/23/23 00:06 Dose: 3 mg Midodrine (Midodrine Hcl 2.5 Mg Tablet) 7.5 mg G-TUBE TID@0600,1000,1400 [facility] Last Admin: 09/23/23 10:18 Dose: 7.5 mg Morphine Sulfate (Morphine Sulfate Oral Cady 10 Mg/5 Ml Solution) 5 mg G-TUBE DAILY@1700 [facility] Last Admin: 09/23/23 00:05 Dose: 5 mg Morphine Sulfate (Morphine Sulfate Oral Cady 10 Mg/5 Ml Solution) 10 mg G-TUBE DAILY [facility] Last Admin: 09/23/23 10:01 Dose: 10 mg Multivitamins/Vitamin C (Multivitamin Tablet) 1 tab PO DAILY [facility] Last Admin: 09/23/23 10:02 Dose: 1 tab Ondansetron HCl (Ondansetron Hcl 4 Mg/2 Ml Vial) 4 mg IM Q4H PRN PRN Reason: Nausea And Vomiting Ondansetron HCl (Ondansetron Odt 4 Mg Tab.Rapdis) 4 mg TRANSLINGU Q4H PRN PRN Reason: Nausea And Vomiting Oxycodone HCl (Oxycodone Hcl Immed Release 5 Mg Tablet) 5 mg G-TUBE Q4H PRN PRN Reason: Pain (Scale Score 4-6) Pharmacy Consult (Consult Rx Vancomycin Dosing) 1 each MISCELLANE DAILY PRN PRN Reason: Consult order Polyethyl Glycol/Propylene Glycol (Propylene Glycol/Peg 400 Gel Eye Drops 10ml) 2 drop EYE-BOTH BID [facility] Last Admin: 09/23/23 10:19 Dose: 1 drop Scopolamine (Scopolamine 1.5 Mg Patch.Td.3) 1.5 mg TRANSDERMA Q3D [facility] Last Admin: 09/23/23 00:07 Dose: Not Given Senna/Docusate Sodium (Sennosides/Docusate Sodium Tablet) 2 tab PO BID@0900,1700 [facility] Last Admin: 09/23/23 10:02 Dose: 2 tab Sodium Biphosphate/Sodium Phosphate (Sodium Phosphate,Stevens-Dibasic 133 Ml Enema) 133 ml IN DAILY PRN PRN Reason: Constipation Sodium Chloride (0.9 % Sodium Chloride Flush 3 Ml Syringe) 3 ml IVFLUSH QSHIFT [facility] Last Admin: 09/23/23 10:43 Dose: Not Given Sucralfate (Sucralfate 1 Gm Tablet) 1 gm PO BID@1300,1700 [facility] Last Admin: 09/23/23 13:31 Dose: 1 gm Tramadol HCl (Tramadol Hcl 50 Mg Tablet) 50 mg G-TUBE Q4H PRN PRN Reason: Pain (Scale Score 1-3) Triamcinolone Acetonide (Triamcinolone Acet 0.5 % Oint 15 Gm Tube) 1 appl TOPICAL DAILY [facility] Last Admin: 09/23/23 11:17 Dose: Not Given Trimethoprim/Sulfamethoxazole (Sulfamethox/Trimeth 800/160 Tablet) 1 tab PO BID [facility] Zinc Sulfate (Zinc Sulfate 220 Mg Capsule) 220 mg G-TUBE DAILY [facility] Last Admin: 09/23/23 10:18 Dose: 220 mg Home Medications Medication Instructions Recorded Confirmed Last Taken Type acetaminophen 325 mg tablet 650 mg feeding tube Q4H PRN Fever 01/02/23 09/22/23 09/22/23 History Or Pain albuterol sulfate 2.5 mg/3 mL 2.5 mg inhalation Q4H PRN 01/02/23 09/22/23 Unknown History (0.083 %) solution for nebulization Shortness Of Breath Or Wheezing ascorbic acid (vitamin C) 250 mg 250 mg feeding tube DAILY 01/02/23 09/22/23 09/22/23 History tablet atovaquone 750 mg/5 mL oral 750 mg feeding tube BIDWM 01/02/23 09/22/23 09/22/23 History suspension baclofen 10 mg tablet 5 mg feeding tube 01/02/23 09/22/23 09/22/23 History TID@0900,1300,1700 bisacodyl 10 mg rectal suppository 10 mg IN DAILY PRN Constipation 01/02/23 09/22/23 Unknown History cholecalciferol (vitamin D3) 1,250 1,250 mcg feeding tube QMONTH 01/02/23 09/22/23 08/29/23 History mcg (50,000 unit) tablet cholestyramine-aspartame 4 gram 4 g feeding tube BIDWM 01/02/23 09/22/23 09/22/23 History oral powder for susp in a packet (Cholestyramine Light) finasteride 5 mg tablet 5 mg feeding tube DAILY 01/02/23 09/22/23 09/22/23 History glycopyrrolate 1 mg tablet 0.5 mg feeding tube BID 01/02/23 09/22/23 09/22/23 History guaifenesin 200 mg/5 mL oral liquid 200 mg feeding tube Q4H PRN Cough 01/02/23 09/22/23 Unknown History lacosamide 200 mg tablet 200 mg feeding tube BID 01/02/23 09/22/23 09/22/23 History leucovorin calcium 25 mg tablet 25 mg feeding tube BEDTIME 01/02/23 09/22/23 09/22/23 History loperamide 2 mg capsule 2 mg feeding tube Q4H PRN Diarrhea 01/02/23 09/22/23 Unknown History lorazepam 0.5 mg tablet 0.5 mg feeding tube Q6H PRN Anxiety 01/02/23 09/22/23 09/22/23 History lorazepam 2 mg/mL injection 2 mg IM ONCE PRN Seizures 01/02/23 09/22/23 Unknown History solution magnesium hydroxide 400 mg/5 mL 30 ml feeding tube DAILY PRN 01/02/23 09/22/23 Unknown History oral suspension (Milk of Magnesia) Constipation melatonin 3 mg tablet 3 mg feeding tube BEDTIME 01/02/23 09/22/23 09/22/23 History midodrine 5 mg tablet 7.5 mg feeding tube 01/02/23 09/22/23 09/22/23 History TID@0600,1000,1400 morphine 10 mg/5 mL oral solution 10 mg feeding tube DAILY 01/02/23 09/22/23 09/22/23 History ondansetron HCl 2 mg/mL 4 mg IM Q4H PRN Nausea And Vomiting 01/02/23 09/22/23 Unknown History intravenous solution ondansetron HCl 4 mg tablet 4 mg feeding tube Q4H PRN Nausea 01/02/23 09/22/23 Unknown History And Vomiting oxycodone 5 mg tablet 5 mg feeding tube Q4H PRN Pain 01/02/23 09/22/23 09/22/23 10:02 History (Scale Score 4-6) scopolamine base 1 mg over 3 days 1 patch transdermal Q3D 01/02/23 09/22/23 09/22/23 History transdermal patch sennosides 8.6 mg-docusate sodium 2 tab-cap PO BID@0900,1700 01/02/23 09/22/23 09/22/23 History 50 mg tablet (Senna with Docusate Constipation Sodium) sodium phosphates 19 gram-7 118 ml IN DAILY PRN Constipation 01/02/23 09/22/23 Unknown History gram/118 mL enema (Fleet Enema) tramadol 50 mg tablet 50 mg feeding tube Q4H PRN Pain 01/02/23 09/22/23 Unknown History (Scale Score 1-3) zinc sulfate 50 mg zinc (220 mg) 50 mg feeding tube DAILY 01/02/23 09/22/23 09/22/23 History tablet multivitamin 1 tab feeding tube DAILY 01/31/23 09/22/23 09/22/23 History pyrimethamine 25 mg tablet 50 mg feeding tube DAILY 01/31/23 09/22/23 09/22/23 History betamethasone dipropionate 0.05 % 1 appl topical DAILY 06/04/23 09/22/23 09/22/23 History topical ointment carboxymethylcellulose sodium 0.25 2 drp ophthalmic (eye) BID 06/04/23 09/22/23 09/22/23 History % eye drops morphine 10 mg/5 mL oral solution 5 mg feeding tube DAILY@1700 06/04/23 09/22/23 09/22/23 History sucralfate 1 gram tablet 1 g PO BID@1300,1700 06/04/23 09/22/23 09/22/23 History acetylcysteine 200 mg/mL (20 %) 2 ml inhalation Q12H PRN THICK 09/22/23 09/22/23 Unknown History solution AIRWAY SECRETION ibuprofen 600 mg tablet 600 mg PO Q8H PRN FEVER 09/22/23 09/22/23 Unknown History UNRESPONSIVE TO APAP Exam Height,Weight and Vital Signs: Height 5 ft 8 in Weight 66.6 kg Last Vital Signs Temp 99.3 F 09/23/23 13:55 Pulse 94 09/23/23 13:55 Resp 22 H 09/23/23 13:55 BP 108/64 09/23/23 13:55 Pulse Ox 95 09/23/23 13:55 O2 Del Method Trach Collar 09/23/23 13:55 O2 Flow Rate 5 09/23/23 13:55 Pertinent Lab Results Pertinent Lab Results: Laboratory Tests 09/22/23 09/22/23 09/22/23 17:15 17:24 17:26 WBC 8.6 RBC 3.47 L Hgb 9.2 L Hct 29.2 L MCV 84.1 MCH 26.5 L MCHC 31.5 RDW 18.4 H Plt Count 169 MPV 10.4 Immature Gran % (Auto) 0.5 H Neut % (Auto) 68.7 Lymph % (Auto) 11.7 L Stevens % (Auto) 17.8 H Eos % (Auto) 1.2 Baso % (Auto) 0.1 Lymph # (Auto) 1.0 L Stevens # (Auto) 1.5 H Eos # (Auto) 0.1 Baso # (Auto) 0.0 Abs Immat Gran (auto) 0.04 H Absolute Neuts (auto) 5.9 Absolute Nucleated RBC 0.000 Nucleated RBC % (auto) 0.0 Smear Tech's Comments VERIFIED ESR 105 H Sodium 139 Potassium 4.2 Chloride 102 Carbon Dioxide 29 Anion Gap 12 BUN 27 H Creatinine 0.82 Estim Creat Clear Calc 101.5 Estimated GFR > 60 Random Glucose 87 Lactic Acid 2.0 Calcium 8.9 Magnesium Total Bilirubin 0.6 AST 25 ALT 34 Alkaline Phosphatase 203 H C-Reactive Protein 22.97 H Total Protein 7.2 Albumin 3.3 L Urine Color Urine Appearance Urine pH Ur Specific [place] Urine Protein Urine Glucose (UA) Urine Ketones Urine Blood Urine Nitrite Ur Leukocyte Esterase Urine RBC Urine WBC Ur Squamous Epith Cells Urine Bacteria Hyaline Casts Synovial Source Synovial WBC Synovial RBC Synovial Neutrophils Synovial Lymphocytes Synovial Monocytes Synovial Glucose Synovial Total Protein Synovial LDH COVID-19 (LAURY) Negative COVID-19 Clin Com See Note Influenza Type A (ZANE) Negative Influenza Type B (ZANE) Negative Influenza A & B Note See Note 09/22/23 09/23/23 20:29 05:08 WBC 5.7 RBC 3.10 L Hgb 8.1 L Hct 25.9 L MCV 83.5 MCH 26.1 L MCHC 31.3 RDW 18.0 H Plt Count 142 L MPV 10.1 Immature Gran % (Auto) 0.2 Neut % (Auto) 70.4 Lymph % (Auto) 12.2 L Stevens % (Auto) 16.1 H Eos % (Auto) 0.9 Baso % (Auto) 0.2 Lymph # (Auto) 0.7 L Stevens # (Auto) 0.9 Eos # (Auto) 0.1 Baso # (Auto) 0.0 Abs Immat Gran (auto) 0.01 Absolute Neuts (auto) 4.0 Absolute Nucleated RBC 0.000 Nucleated RBC % (auto) 0.0 Smear Tech's Comments ESR Sodium 140 Potassium 3.7 Chloride 107 Carbon Dioxide 25 Anion Gap 12 BUN 16 Creatinine 0.76 Estim Creat Clear Calc 109.5 Estimated GFR > 60 Random Glucose 105 Lactic Acid Calcium 8.2 L D Magnesium 1.9 Total Bilirubin 0.7 AST 20 ALT 27 Alkaline Phosphatase 184 H C-Reactive Protein Total Protein 6.3 L Albumin 2.8 L Urine Color Dark Yellow Urine Appearance Clear Urine pH 6.0 Ur Specific [place] 1.020 Urine Protein 300 (3+) H Urine Glucose (UA) Negative Urine Ketones Negative Urine Blood Moderate (2+) H Urine Nitrite Positive H Ur Leukocyte Esterase Moderate (2+) H Urine RBC >20 H Urine WBC >50 H Ur Squamous Epith Cells 0-2 Urine Bacteria 1+ Hyaline Casts 0-2 Synovial Source left knee Synovial WBC 250.920 Synovial RBC 0.030 Synovial Neutrophils 81 Synovial Lymphocytes 11 Synovial Monocytes 8 Synovial Glucose < 2 Synovial Total Protein 5.2 Synovial LDH 2243 COVID-19 (LAURY) COVID-19 Clin Com Influenza Type A (ZANE) Influenza Type B (ZANE) Influenza A & B Note Airway Mallampati Class: Patient Non-Cooperative Other: pt with 7.5 trach without balloon receiving 6 L Assessment and Plan Assessment Anesthesia Assessment: Anesthesia Plan Discussed and Chart Reviewed Final Anesthetic Review Family History of Problems with Anesthesia: No History of Problems with Anesthesia: No NPO: Yes ASA Class: IV Final Preanesthetic Review: No Changes in Pt Med Stat, Meds/Allgs Chart Reviewed and Consent Obtained/Reviewed Patient Risk: Intermediate Procedure Risk: Intermediate Anesthetic Plan Anesthetic Plan: GA Disposition: Standard PACU
--- NOTE | 2023-09-23 14:47 | MHC.SHP ---
Pre-Procedural Eval Section A - 24 Hr Update-Section A only Date of Service: 09/23/23 The patient is an INPATIENT: Yes Changes since office visit: No Cold of Flu in the past 2 weeks, No New Medical Problems, No Changes in Medication and No Patient answered all questions The patient has been examined within 24 hours of the surgical procedure. The History & Physical has been completed within 30 days and I have reviewed it.: Yes Section B - Complete if H&P > 30 days Chief Complaint: septic arthritis Allergies: Allergies Allergy/AdvReac Type Severity Reaction Status Date / Time cyclobenzaprine [Flexeril] Allergy Unknown Palpitation Verified 09/22/20 15:41 s Plan I have reviewed the history and physical and performed a pertinent physical examination on my patient. No changes have occurred unless specified. Time Spent With Patient Time: Total time managing care of this patient today ____ minutes.
--- NOTE | 2023-09-23 15:29 | PM.OP ---
Brief Operative Note Date of Service: 09/23/23 Pre-op diagnosis: septic left knee Post-op diagnosis: same Procedure: Arthrotomy and lavage left knee Surgeon: Tariq Medina MD Anesthesia: GETA Was an Instrument Mechanics Supervisor used for this Procedure?: No Estimated blood loss (mL): 25 IV fluids (mL): 500 Pathology: none sent Condition: stable Disposition: PACU
[2023-09-23] MEDS: 0.9 % Sodium Chloride Flush 3 ML SYRINGE IVFLUSH (17:27)
[2023-09-23] MEDS: Heparin Sodium,Porcine 5,000 UNIT/ML VIAL 5000 UNIT SUBCUT (23:36)
[2023-09-23] MEDS: Sulfamethox/Trimeth 800/160 TABLET 1 TAB PO (23:37)
[2023-09-24] VITALS (7 sets, daily range): BP systolic 104–123; BP diastolic 57–68; PULSE 85–103; RESP 14–20; TEMP 35.7–38.7; O2SAT 92–99
[2023-09-24] MEDS: Lacosamide 100 MG TABLET 200 MG G-TUBE ×3 (00:28→20:10)
[2023-09-24] MEDS: Acetaminophen 325 MG TABLET 650 MG G-TUBE ×2 (00:30→23:42)
[2023-09-24] MEDS: vancomycin HCL 1,000 MG in 0.9 % Sodium Chloride 250 ML 270 MG IV ×3 (00:30→22:23)
[2023-09-24] MEDS: Piperacillin Sodium/Tazobactam 3.375 GM in 0.9 % Sodium Chloride 50 ML IV ×2 (04:51→11:08)
[2023-09-24] MEDS: 0.9 % Sodium Chloride Flush 3 ML SYRINGE IVFLUSH ×4 (04:52→22:27)
[2023-09-24] MEDS: Dextrose 5 % and 0.9 % NaCl 1,000 ML 100 ML IVCONT ×2 (04:52→17:34)
[2023-09-24] MEDS: Heparin Sodium,Porcine 5,000 UNIT/ML VIAL 5000 UNIT SUBCUT ×3 (06:37→22:23)
[2023-09-24] MEDS: Midodrine HCl 2.5 MG TABLET 7.5 MG G-TUBE ×3 (06:38→16:37)
[2023-09-24 08:56] LABS: Creatinine Clr Calc Pharmacy 94.6; Estimated Glomerular Filt Rate > 60
--- NOTE | 2023-09-24 09:59 | PM.PNORT ---
Subjective Subjective Date of Service: 09/24/23 Interval history: POD1 s/p left knee arthrotomy and lavage Patient is resting in bed comfortably No overnight events Pain is managed No additional complaints Physical Exam Vital Signs: Vital Signs: Last Vital Signs Temp 96.3 F L 09/24/23 07:10 Pulse 85 09/24/23 07:10 Resp 20 09/24/23 07:10 BP 113/57 L 09/24/23 07:10 Pulse Ox 93 09/24/23 07:10 O2 Del Method Room Air 09/24/23 07:10 O2 Flow Rate 5 09/24/23 04:00 BMI result Body Mass Index 22.3 Const: General: cooperative, healthy appearing and no acute distress Resp: Effort & Inspection: normal respiratory effort and able to speak in complete sentences Cardio: Rate: regular rate Peripheral pulses: Peripheral pulses 2+ throughout GI: Palpation (GI): Soft to palpation Skin: Lesions: no lesions Rashes: no rashes Extrem: Other: left knee dressing is c/d/i. Drain in place with no collection in the bulb. Flexion contracture. Procedures Date of Service Date of Service: 09/24/23 Progress Note: A&P Assessment and plan (1) Sepsis: Status: Acute (2) Septic joint of left knee joint: Status: Acute Plan Continue pain mgmnt Drain to remain in place. Do not empty collection. Drain intact at bedside, no collection present. Plan for drain pull at bedside tomorrow Time Spent With Patient Time: Total time managing care of this patient today ____ minutes. Quality Stroke Does the patient have a stroke diagnosis?: No VTE Prior VTE?: No VTE Risk Level:: Medical - moderate - high VTE Device Contraindication: Treatment Not Indicated VTE Drug Contraindication: N/A - Med Ordered
[2023-09-24] MEDS: Atovaquone 750 MG/5 ML ORAL.SUSP G-TUBE ×2 (11:16→16:27)
[2023-09-24] MEDS: Finasteride 5 MG TABLET PO (11:17)
[2023-09-24] MEDS: Sulfamethox/Trimeth 800/160 TABLET 1 TAB PO ×2 (11:19→20:10)
[2023-09-24] MEDS: Baclofen 10 MG TABLET 5 MG G-TUBE ×2 (11:19→16:37)
[2023-09-24] MEDS: Sennosides/Docusate Sodium TABLET 2 TAB PO ×2 (11:21→16:27)
[2023-09-24] MEDS: Ascorbic Acid 250 MG TABLET G-TUBE (11:21)
[2023-09-24] MEDS: Glycopyrrolate 1 MG TABLET 0.5 MG G-TUBE ×2 (11:22→20:11)
[2023-09-24] MEDS: Multivitamin TABLET 1 TAB PO (11:22)
--- NOTE | 2023-09-24 11:23 | HO.POSTANES ---
Post Anesthesia Evaluation Post Anesthesia Evaluation Date of Service: 09/24/23 Vital Signs: Vital Signs Temp Pulse Resp BP Pulse Ox O2 Del Method O2 Flow Rate 09/24/23 11:21 97.3 F 97 20 117/68 93 09/24/23 07:10 96.3 F L 85 20 113/57 L 93 Room Air 09/24/23 04:00 96.8 F 87 14 118/61 99 5 09/24/23 00:00 100.2 F 103 H 16 111/63 Anesthesia: General Mental Status: Awake Pain Control: Satisfactory Nausea/Vomiting: None Hydration: Adequate Anesthesia-Related Issues: No Anes. Related Issues
[2023-09-24] MEDS: Zinc Sulfate 220 MG CAPSULE G-TUBE (11:24)
[2023-09-24] MEDS: Cholestyramine (With Sugar) 4 GM POWD.PACK G-TUBE ×2 (11:25→16:27)
--- NOTE | 2023-09-24 12:15 | P.PNIM_ITS ---
Subjective Subjective Date of Service: 09/24/23 Interval History: Seen and evaluated this morning pain much better her is non verbal starting tube feed no reported overnight events Review of Systems Review of Systems: Yes Unobtainable due to mental condition Physical Exam 2 Vital Signs: Vital Signs: Last Vital Signs Temp 97.3 F 09/24/23 11:21 Pulse 97 09/24/23 11:21 Resp 20 09/24/23 11:21 BP 117/68 09/24/23 11:21 Pulse Ox 93 09/24/23 11:21 O2 Del Method Room Air 09/24/23 07:10 O2 Flow Rate 5 09/24/23 04:00 BMI result Body Mass Index 22.3 Const: Other: Constitutional : Awake,? not in distress Neck : Normal inspection, Supple Cardiovascular : RRR, no JVP, no lower extremity edema Respiratory : fair bilateral air entry,? basal bilateral crackles, Trach with no significant secretions. Gastrointestinal:? soft, lax, Normal bowel sounds, G-tube in place, no significant tenderness Skin : Warm, Dry, chronic decubetus ulcers Skeletal: right knee swelling and warmth down, drain in place and empty Neurological : Alert, No focal deficit but retracted Objective Data Active Medications Acetaminophen (Acetaminophen 325 Mg Tablet) 650 mg G-TUBE Q4H PRN PRN Reason: Fever Or Pain Last Admin: 09/24/23 00:30 Dose: 650 mg Documented By: ANDRADE Acetylcysteine (Acetylcysteine 20 % 6,000 Mg/30 Ml Vial) 400 mg INHALE Q12H PRN PRN Reason: THICK AIRWAY SECRETION Albuterol Sulfate (Albuterol Sulfate (0.083%) 2.5 Mg/3 Ml Vial.Neb) 2.5 mg INHALE Q4H PRN PRN Reason: Shortness Of Breath Or Wheezing Albuterol/Ipratropium (Albuterol/Iprat 2.5/0.5mg 3 Ml Ampul.Neb) 3 ml INHALE Q4H PRN PRN Reason: Shortness of Breath/Wheezing Ascorbic Acid (Ascorbic Acid 250 Mg Tablet) 250 mg G-TUBE DAILY [facility] Last Admin: 09/24/23 11:21 Dose: 250 mg Documented By: SALRAFAEL Atovaquone (Atovaquone 750 Mg/5 Ml Oral.Susp) 750 mg G-TUBE BIDWM [facility] Last Admin: 09/24/23 11:16 Dose: 750 mg Documented By: BEN Baclofen (Baclofen 10 Mg Tablet) 5 mg G-TUBE TID@0900,1300,1700 [facility] Last Admin: 09/24/23 11:19 Dose: 5 mg Documented By: BEN Bisacodyl (Bisacodyl 10 Mg Supp.Rect) 10 mg OR DAILY PRN PRN Reason: Constipation Cholestyramine Resin (Cholestyramine (With Sugar) 4 Gm Powd.Pack) 4 gm G-TUBE BIDWM [facility] Last Admin: 09/24/23 11:25 Dose: 4 gm Documented By: BEN Fentanyl (Fentanyl Citrate/Pf 100 Mcg/2 Ml Vial) 25 mcg IVPUSH Q5M PRN; Protocol PRN Reason: Pain, Moderate(Pain Scale 4-6) Finasteride (Finasteride 5 Mg Tablet) 5 mg PO DAILY [facility] Last Admin: 09/24/23 11:17 Dose: 5 mg Documented By: BEN Glycopyrrolate (Glycopyrrolate 1 Mg Tablet) 0.5 mg G-TUBE BID [facility] Last Admin: 09/24/23 11:22 Dose: 0.5 mg Documented By: BEN Guaifenesin (Guaifenesin 200 Mg/10 Ml 10 Ml Liquid) 10 ml PO Q4H PRN PRN Reason: Cough Heparin Sodium (Porcine) (Heparin Sodium,Porcine 5,000 Unit/Ml Vial) 5,000 unit SUBCUT Q8H [facility] Last Admin: 09/24/23 06:37 Dose: 5,000 unit Documented By: ANDRADE Dextrose/Sodium Chloride (D5ns) 1,000 mls @ 100 mls/hr IVCONT .Q10H [facility] Last Admin: 09/24/23 04:52 Dose: 100 mls/hr Documented By: ANDRADE Piperacillin Sod/Tazobactam (Sod 3.375 gm/ Sodium Chloride) 50 mls @ 100 mls/hr IV Q6H [facility] Last Admin: 09/24/23 11:08 Dose: 100 mls/hr Documented By: BEN Vancomycin HCl 1,000 mg/ (Sodium Chloride) 270 mls @ 270 mls/hr IV Q12H [facility] Last Admin: 09/24/23 11:10 Dose: 270 mls/hr Documented By: BEN Ibuprofen (Ibuprofen 600 Mg Tablet) 600 mg G-TUBE Q8H PRN PRN Reason: FEVER UNRESPONSIVE TO APAP Lacosamide (Lacosamide 100 Mg Tablet) 200 mg G-TUBE BID [facility] Last Admin: 09/24/23 11:19 Dose: 200 mg Documented By: BEN Loperamide HCl (Loperamide Hcl 2 Mg Capsule) 2 mg G-TUBE Q4H PRN PRN Reason: Diarrhea Lorazepam (Lorazepam 0.5 Mg Tablet) 0.5 mg G-TUBE Q6H PRN PRN Reason: Anxiety Magnesium Hydroxide (Milk Of Magnesia 30 Ml Oral.Susp) 30 ml G-TUBE DAILY PRN PRN Reason: Constipation Melatonin (Melatonin 3 Mg Tablet) 3 mg G-TUBE BEDTIME [facility] Last Admin: 09/23/23 23:37 Dose: 3 mg Documented By: ANDRADE Midodrine (Midodrine Hcl 2.5 Mg Tablet) 7.5 mg G-TUBE TID@0600,1000,1400 [facility] Last Admin: 09/24/23 11:20 Dose: 7.5 mg Documented By: BEN Morphine Sulfate (Morphine Sulfate Oral Cady 10 Mg/5 Ml Solution) 5 mg G-TUBE DAILY@1700 [facility] Last Admin: 09/23/23 23:19 Dose: Not Given Documented By: ANDRADE Non-Admin Reason: off unit Morphine Sulfate (Morphine Sulfate Oral Cady 10 Mg/5 Ml Solution) 10 mg G-TUBE DAILY [facility] Last Admin: 09/23/23 10:01 Dose: 10 mg Documented By: CHAYA Multivitamins/Vitamin C (Multivitamin Tablet) 1 tab PO DAILY [facility] Last Admin: 09/24/23 11:22 Dose: 1 tab Documented By: BEN Ondansetron HCl (Ondansetron Hcl 4 Mg/2 Ml Vial) 4 mg IM Q4H PRN PRN Reason: Nausea And Vomiting Ondansetron HCl (Ondansetron Odt 4 Mg Tab.Rapdis) 4 mg TRANSLINGU Q4H PRN PRN Reason: Nausea And Vomiting Oxycodone HCl (Oxycodone Hcl Immed Release 5 Mg Tablet) 5 mg G-TUBE Q4H PRN PRN Reason: Pain (Scale Score 4-6) Pharmacy Consult (Consult Rx Vancomycin Dosing) 1 each MISCELLANE DAILY PRN PRN Reason: Consult order Polyethyl Glycol/Propylene Glycol (Propylene Glycol/Peg 400 Gel Eye Drops 10ml) 2 drop EYE-BOTH BID [facility] Last Admin: 09/24/23 04:52 Dose: Not Given Documented By: ANDRADE Non-Admin Reason: Med Not Available Scopolamine (Scopolamine 1.5 Mg Patch.Td.3) 1.5 mg TRANSDERMA Q3D [facility] Last Admin: 09/23/23 00:07 Dose: Not Given Documented By: JOHNNY Non-Admin Reason: Med Not Available Senna/Docusate Sodium (Sennosides/Docusate Sodium Tablet) 2 tab PO BID@0900,1700 [facility] Last Admin: 09/24/23 11:21 Dose: 2 tab Documented By: BEN Sodium Biphosphate/Sodium Phosphate (Sodium Phosphate,Placer-Dibasic 133 Ml Enema) 133 ml OR DAILY PRN PRN Reason: Constipation Sodium Chloride (0.9 % Sodium Chloride Flush 3 Ml Syringe) 3 ml IVFLUSH QSHIFT [facility] Last Admin: 09/24/23 11:27 Dose: 3 ml Documented By: BEN Sucralfate (Sucralfate 1 Gm Tablet) 1 gm PO BID@1300,1700 [facility] Last Admin: 09/23/23 23:20 Dose: Not Given Documented By: ANDRADE Non-Admin Reason: off unit Tramadol HCl (Tramadol Hcl 50 Mg Tablet) 50 mg G-TUBE Q4H PRN PRN Reason: Pain (Scale Score 1-3) Triamcinolone Acetonide (Triamcinolone Acet 0.5 % Oint 15 Gm Tube) 1 appl TOPICAL DAILY [facility] Last Admin: 09/23/23 11:17 Dose: Not Given Documented By: CHAYA Non-Admin Reason: Med Not Available Trimethoprim/Sulfamethoxazole (Sulfamethox/Trimeth 800/160 Tablet) 1 tab PO BID [facility] Last Admin: 09/24/23 11:19 Dose: 1 tab Documented By: BEN Zinc Sulfate (Zinc Sulfate 220 Mg Capsule) 220 mg G-TUBE DAILY [facility] Last Admin: 09/24/23 11:24 Dose: 220 mg Documented By: BEN Labs 09/23/23 05:08 09/24/23 08:21 Labs: Laboratory Results - last 24 hr 09/24/23 08:21 Estim Creat Clear Calc 94.6 Estimated GFR > 60 Random Vancomycin 12.0 L Microbiology Microbiology Results: Microbiology 09/22/23 17:24 Blood Culture - Preliminary Blood - Venous No growth after 24 hours. 09/22/23 17:15 Blood Culture - Preliminary Blood - Venous No growth after 24 hours. 09/22/23 20:29 Gram Stain - Final Knee aspirate Anaerobic Culture - Preliminary Culture in progress. 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 POD 1 post wash out by orthopedic, drain in place negative blood cultures Fluid culture growing GPC IV antibiotic therapy with vancomycin and dc Zosyn. Orthopedic following acute Catheter-associated Bacteruria negative cultures DC Zosyn. Catheter replacement. BPH w/ chronic indwelling urinary catheter. Continue finasteride. Chronic respiratory failure on chronic tracheostomy. Trach care. Acetylcysteine and DuoNeb inhalations as needed. Continue Robinul b.i.d., morphine, scopolamine. 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 Continue leucovorin, atovaquone and baclofen. Seizure disorder. Continue Vimpat. Chronic anemia. Continue to monitor hemoglobin. DVT prophylaxis: Heparin subcut Code status: Full Patient will need hospitalization overnight for sepsis secondary to septic arthritis and urinary tract infection treatment with broad-spectrum IV antibiotic and surgical intervention by orthopedic service. Quality Stroke Does the patient have a stroke diagnosis?: No VTE Prior VTE?: No VTE Risk Level:: Medical - moderate - high VTE Device Contraindication: Treatment Not Indicated VTE Drug Contraindication: N/A - Med Ordered
[2023-09-24] MEDS: Morphine Sulfate Oral Sol 10 MG/5 ML SOLUTION G-TUBE (12:38)
[2023-09-24] MEDS: Propylene Glycol/PEG 400 Gel Eye Drops 10ML 2 DROP EYE-BOTH ×2 (12:40→20:10)
[2023-09-24] MEDS: Sucralfate 1 GM TABLET PO ×2 (16:27→17:39)
[2023-09-24] MEDS: Morphine Sulfate Oral Sol 10 MG/5 ML SOLUTION 5 MG G-TUBE (18:03)
--- NOTE | 2023-09-24 19:18 | PC.NURSE ---
Assumed care of patient around 1700 from NICHOLE Blum. Patient on TF Osmolite 1.5 running at 30mls/hr. IVF infusing. Patient POD#1 of washout to L knee. DAVID drain present to knee however david drain incorrectly attached and bulb inflated instead of to bulb suction. No drainage present in bulb. DAVID drain bulb reattached properly. Gauze at david drain insertion site saturated in blood. KRISTIN Porras notified. Site cleaned and dressing changed per PA verbal order. TF rate increased at 1850 per order. Water flush administered. Patient repositioned. Family at bedside and updated. VMT in place. Bed alarm on. HOB >30 degrees.
[2023-09-24] MEDS: Melatonin 3 MG TABLET G-TUBE (20:11)
[2023-09-25] VITALS (9 sets, daily range): BP systolic 115–138; BP diastolic 67–73; PULSE 94–105; RESP 19–20; TEMP 36.2–38.4; O2SAT 92–96
--- NOTE | 2023-09-25 00:54 | W.PM.IDCN ---
History of Present Illness Data of Consult Service Date: 09/24/23 Requesting physician: Patrick Pineda Primary Care Provider: Florencia Delgado NP HPI Reason for consult: left knee swelling He presents with left knee swelling and pain for four days. He has Group B strep from knee. He has toxoplasmosis and mantle cell lymphoma He has been on pyrimethamine and has trach for chronic respiratory failure. 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 Anemia Toxoplasmosis Encephalopathy [employer] lymphoma Rectal bleeding H/O: RCT (rotator cuff tear) Depression Appendicitis Chronic pain Kidney stone Mantle cell lymphoma Family History Family History Mother COPD (chronic obstructive pulmonary disease) Sister Colon cancer Surgical History Surgical History History of appendectomy Social History Social History Household Members: Unknown / Unable to assess Housing: Unknown / Unable to assess Housing Other:: [facility] Do you presently have visiting nurse or other home services: No Unable to assess alcohol history related to: Unable to respond Alcohol intake: unknown Patient Tobacco Use Status: Never used Tobacco Second Hand Smoke Exposure: No Substance Use Type: Unknown Advance Directives Date on File: 06/04/23 service: No Current occupational status: unemployed Meds Allergies Allergy/AdvReac Type Severity Reaction Status Date / Time cyclobenzaprine [Flexeril] Allergy Unknown Palpitation Verified 09/22/20 15:41 s Active Medications: Current Medications Acetaminophen (Acetaminophen 325 Mg Tablet) 650 mg G-TUBE Q4H PRN PRN Reason: Fever Or Pain Last Admin: 09/24/23 23:42 Dose: 650 mg Acetylcysteine (Acetylcysteine 20 % 6,000 Mg/30 Ml Vial) 400 mg INHALE Q12H PRN PRN Reason: THICK AIRWAY SECRETION Albuterol Sulfate (Albuterol Sulfate (0.083%) 2.5 Mg/3 Ml Vial.Neb) 2.5 mg INHALE Q4H PRN PRN Reason: Shortness Of Breath Or Wheezing Albuterol/Ipratropium (Albuterol/Iprat 2.5/0.5mg 3 Ml Ampul.Neb) 3 ml INHALE Q4H PRN PRN Reason: Shortness of Breath/Wheezing Ascorbic Acid (Ascorbic Acid 250 Mg Tablet) 250 mg G-TUBE DAILY [facility] Last Admin: 09/24/23 11:21 Dose: 250 mg Atovaquone (Atovaquone 750 Mg/5 Ml Oral.Susp) 750 mg G-TUBE BIDWM [facility] Last Admin: 09/24/23 16:27 Dose: 750 mg Baclofen (Baclofen 10 Mg Tablet) 5 mg G-TUBE TID@0900,1300,1700 [facility] Last Admin: 09/24/23 18:12 Dose: Not Given Bisacodyl (Bisacodyl 10 Mg Supp.Rect) 10 mg ID DAILY PRN PRN Reason: Constipation Cholestyramine Resin (Cholestyramine (With Sugar) 4 Gm Powd.Pack) 4 gm G-TUBE BIDWM [facility] Last Admin: 09/24/23 16:27 Dose: 4 gm Fentanyl (Fentanyl Citrate/Pf 100 Mcg/2 Ml Vial) 25 mcg IVPUSH Q5M PRN; Protocol PRN Reason: Pain, Moderate(Pain Scale 4-6) Finasteride (Finasteride 5 Mg Tablet) 5 mg PO DAILY [facility] Last Admin: 09/24/23 11:17 Dose: 5 mg Glycopyrrolate (Glycopyrrolate 1 Mg Tablet) 0.5 mg G-TUBE BID [facility] Last Admin: 09/24/23 20:11 Dose: 0.5 mg Guaifenesin (Guaifenesin 200 Mg/10 Ml 10 Ml Liquid) 10 ml PO Q4H PRN PRN Reason: Cough Heparin Sodium (Porcine) (Heparin Sodium,Porcine 5,000 Unit/Ml Vial) 5,000 unit SUBCUT Q8H [facility] Last Admin: 09/24/23 22:23 Dose: 5,000 unit Vancomycin HCl 1,000 mg/ (Sodium Chloride) 270 mls @ 270 mls/hr IV Q12H [facility] Last Infusion: 09/24/23 23:25 Dose: Infused Ibuprofen (Ibuprofen 600 Mg Tablet) 600 mg G-TUBE Q8H PRN PRN Reason: FEVER UNRESPONSIVE TO APAP Lacosamide (Lacosamide 100 Mg Tablet) 200 mg G-TUBE BID [facility] Last Admin: 09/24/23 20:10 Dose: 200 mg Loperamide HCl (Loperamide Hcl 2 Mg Capsule) 2 mg G-TUBE Q4H PRN PRN Reason: Diarrhea Lorazepam (Lorazepam 0.5 Mg Tablet) 0.5 mg G-TUBE Q6H PRN PRN Reason: Anxiety Magnesium Hydroxide (Milk Of Magnesia 30 Ml Oral.Susp) 30 ml G-TUBE DAILY PRN PRN Reason: Constipation Melatonin (Melatonin 3 Mg Tablet) 3 mg G-TUBE BEDTIME [facility] Last Admin: 09/24/23 20:11 Dose: 3 mg Midodrine (Midodrine Hcl 2.5 Mg Tablet) 7.5 mg G-TUBE TID@0600,1000,1400 [facility] Last Admin: 09/24/23 16:37 Dose: 7.5 mg Morphine Sulfate (Morphine Sulfate Oral Cady 10 Mg/5 Ml Solution) 5 mg G-TUBE DAILY@1700 [facility] Last Admin: 09/24/23 18:03 Dose: 5 mg Morphine Sulfate (Morphine Sulfate Oral Cady 10 Mg/5 Ml Solution) 10 mg G-TUBE DAILY [facility] Last Admin: 09/24/23 12:38 Dose: 10 mg Multivitamins/Vitamin C (Multivitamin Tablet) 1 tab PO DAILY [facility] Last Admin: 09/24/23 11:22 Dose: 1 tab Ondansetron HCl (Ondansetron Hcl 4 Mg/2 Ml Vial) 4 mg IM Q4H PRN PRN Reason: Nausea And Vomiting Ondansetron HCl (Ondansetron Odt 4 Mg Tab.Rapdis) 4 mg TRANSLINGU Q4H PRN PRN Reason: Nausea And Vomiting Oxycodone HCl (Oxycodone Hcl Immed Release 5 Mg Tablet) 5 mg G-TUBE Q4H PRN PRN Reason: Pain (Scale Score 4-6) Pharmacy Consult (Consult Rx Vancomycin Dosing) 1 each MISCELLANE DAILY PRN PRN Reason: Consult order Polyethyl Glycol/Propylene Glycol (Propylene Glycol/Peg 400 Gel Eye Drops 10ml) 2 drop EYE-BOTH BID [facility] Last Admin: 09/24/23 20:10 Dose: 2 drop Scopolamine (Scopolamine 1.5 Mg Patch.Td.3) 1.5 mg TRANSDERMA Q3D [facility] Last Admin: 09/23/23 00:07 Dose: Not Given Senna/Docusate Sodium (Sennosides/Docusate Sodium Tablet) 2 tab PO BID@0900,1700 [facility] Last Admin: 09/24/23 16:27 Dose: 2 tab Sodium Biphosphate/Sodium Phosphate (Sodium Phosphate,[place]-Dibasic 133 Ml Enema) 133 ml ID DAILY PRN PRN Reason: Constipation Sodium Chloride (0.9 % Sodium Chloride Flush 3 Ml Syringe) 3 ml IVFLUSH QSHIFT [facility] Last Admin: 09/24/23 22:27 Dose: 3 ml Sucralfate (Sucralfate 1 Gm Tablet) 1 gm PO BID@1300,1700 [facility] Last Admin: 09/24/23 17:39 Dose: 1 gm Tramadol HCl (Tramadol Hcl 50 Mg Tablet) 50 mg G-TUBE Q4H PRN PRN Reason: Pain (Scale Score 1-3) Triamcinolone Acetonide (Triamcinolone Acet 0.5 % Oint 15 Gm Tube) 1 appl TOPICAL DAILY [facility] Last Admin: 09/24/23 17:36 Dose: Not Given Trimethoprim/Sulfamethoxazole (Sulfamethox/Trimeth 800/160 Tablet) 1 tab PO BID [facility] Last Admin: 09/24/23 20:10 Dose: 1 tab Zinc Sulfate (Zinc Sulfate 220 Mg Capsule) 220 mg G-TUBE DAILY [facility] Last Admin: 09/24/23 11:24 Dose: 220 mg Home Medications Medication Instructions Recorded Confirmed Last Taken Type acetaminophen 325 mg tablet 650 mg feeding tube Q4H PRN Fever 01/02/23 09/22/23 09/22/23 History Or Pain albuterol sulfate 2.5 mg/3 mL 2.5 mg inhalation Q4H PRN 01/02/23 09/22/23 Unknown History (0.083 %) solution for nebulization Shortness Of Breath Or Wheezing ascorbic acid (vitamin C) 250 mg 250 mg feeding tube DAILY 01/02/23 09/22/23 09/22/23 History tablet atovaquone 750 mg/5 mL oral 750 mg feeding tube BIDWM 01/02/23 09/22/23 09/22/23 History suspension baclofen 10 mg tablet 5 mg feeding tube 01/02/23 09/22/23 09/22/23 History TID@0900,1300,1700 bisacodyl 10 mg rectal suppository 10 mg ID DAILY PRN Constipation 01/02/23 09/22/23 Unknown History cholecalciferol (vitamin D3) 1,250 1,250 mcg feeding tube QMONTH 01/02/23 09/22/23 08/29/23 History mcg (50,000 unit) tablet cholestyramine-aspartame 4 gram 4 g feeding tube BIDWM 01/02/23 09/22/23 09/22/23 History oral powder for susp in a packet (Cholestyramine Light) finasteride 5 mg tablet 5 mg feeding tube DAILY 01/02/23 09/22/23 09/22/23 History glycopyrrolate 1 mg tablet 0.5 mg feeding tube BID 01/02/23 09/22/23 09/22/23 History guaifenesin 200 mg/5 mL oral liquid 200 mg feeding tube Q4H PRN Cough 01/02/23 09/22/23 Unknown History lacosamide 200 mg tablet 200 mg feeding tube BID 01/02/23 09/22/23 09/22/23 History leucovorin calcium 25 mg tablet 25 mg feeding tube BEDTIME 01/02/23 09/22/23 09/22/23 History loperamide 2 mg capsule 2 mg feeding tube Q4H PRN Diarrhea 01/02/23 09/22/23 Unknown History lorazepam 0.5 mg tablet 0.5 mg feeding tube Q6H PRN Anxiety 01/02/23 09/22/23 09/22/23 History lorazepam 2 mg/mL injection 2 mg IM ONCE PRN Seizures 01/02/23 09/22/23 Unknown History solution magnesium hydroxide 400 mg/5 mL 30 ml feeding tube DAILY PRN 01/02/23 09/22/23 Unknown History oral suspension (Milk of Magnesia) Constipation melatonin 3 mg tablet 3 mg feeding tube BEDTIME 01/02/23 09/22/23 09/22/23 History midodrine 5 mg tablet 7.5 mg feeding tube 01/02/23 09/22/23 09/22/23 History TID@0600,1000,1400 morphine 10 mg/5 mL oral solution 10 mg feeding tube DAILY 01/02/23 09/22/23 09/22/23 History ondansetron HCl 2 mg/mL 4 mg IM Q4H PRN Nausea And Vomiting 01/02/23 09/22/23 Unknown History intravenous solution ondansetron HCl 4 mg tablet 4 mg feeding tube Q4H PRN Nausea 01/02/23 09/22/23 Unknown History And Vomiting oxycodone 5 mg tablet 5 mg feeding tube Q4H PRN Pain 01/02/23 09/22/23 09/22/23 10:02 History (Scale Score 4-6) scopolamine base 1 mg over 3 days 1 patch transdermal Q3D 01/02/23 09/22/23 09/22/23 History transdermal patch sennosides 8.6 mg-docusate sodium 2 tab-cap PO BID@0900,1700 01/02/23 09/22/23 09/22/23 History 50 mg tablet (Senna with Docusate Constipation Sodium) sodium phosphates 19 gram-7 118 ml ID DAILY PRN Constipation 01/02/23 09/22/23 Unknown History gram/118 mL enema (Fleet Enema) tramadol 50 mg tablet 50 mg feeding tube Q4H PRN Pain 01/02/23 09/22/23 Unknown History (Scale Score 1-3) zinc sulfate 50 mg zinc (220 mg) 50 mg feeding tube DAILY 01/02/23 09/22/23 09/22/23 History tablet multivitamin 1 tab feeding tube DAILY 01/31/23 09/22/23 09/22/23 History pyrimethamine 25 mg tablet 50 mg feeding tube DAILY 01/31/23 09/22/23 09/22/23 History betamethasone dipropionate 0.05 % 1 appl topical DAILY 06/04/23 09/22/23 09/22/23 History topical ointment carboxymethylcellulose sodium 0.25 2 drp ophthalmic (eye) BID 06/04/23 09/22/23 09/22/23 History % eye drops morphine 10 mg/5 mL oral solution 5 mg feeding tube DAILY@1700 06/04/23 09/22/23 09/22/23 History sucralfate 1 gram tablet 1 g PO BID@1300,1700 06/04/23 09/22/23 09/22/23 History acetylcysteine 200 mg/mL (20 %) 2 ml inhalation Q12H PRN THICK 09/22/23 09/22/23 Unknown History solution AIRWAY SECRETION ibuprofen 600 mg tablet 600 mg PO Q8H PRN FEVER 09/22/23 09/22/23 Unknown History UNRESPONSIVE TO APAP Physical Exam Vital Signs: Vital Signs: Last Vital Signs Temp 101.6 F H 09/24/23 23:40 Pulse 102 H 09/24/23 23:40 Resp 20 09/24/23 23:40 BP 112/59 L 09/24/23 23:40 Pulse Ox 94 09/24/23 23:40 O2 Del Method Trach Collar 09/24/23 23:40 O2 Flow Rate 5 09/24/23 23:40 FiO2 28 09/24/23 23:40 BMI result Body Mass Index 22.3 Const: General: cooperative HEENT: Head: Yes normal to inspection Face and sinus: Yes normal facial exam Mouth: Normal oral and palatal mucosa present Teeth and gingiva: dentition normal Eyes: General: appearance normal, both eyes and all related structures Pupils: Equal, round and reactive pupils present Resp: Effort & Inspection: normal respiratory effort Cardio: Rate: regular rate Rhythm: regular rhythm GI: Palpation (GI): Soft to palpation and nontender : General: Yes no CVA tenderness Back/Spine/Pelvis: Back: no CVA tenderness Skin: General skin exam: no rashes or lesions noted Neuro: General: moves all extremities Cranial nerves: Yes Equal, round and reactive pupils present Extrem: Other: left knee swelling Psych: Appearance: grossly normal Results Labs 09/23/23 05:08 09/24/23 08:21 Labs: BMP 09/24/23 08:21 Creatinine 0.88 Microbiology Microbiology Results: Microbiology 09/22/23 17:24 Blood - Venous Blood Culture - Preliminary No growth after 48 hours. 09/22/23 17:15 Blood - Venous Blood Culture - Preliminary No growth after 48 hours. 09/22/23 20:29 Knee aspirate Gram Stain - Final 09/22/23 20:29 Knee aspirate Anaerobic Culture - Preliminary Culture in progress. 09/22/23 20:29 Knee aspirate Fluid Crystals - Final 09/22/23 20:29 Knee aspirate Joint Fluid Culture - Preliminary Strep agalactiae (Grp B) Assessment and Plan (1) Septic joint of left knee joint: Qualifiers: Septic arthritis organism: due to unspecified organism Qualified Code(s): M00.9 - Pyogenic arthritis, unspecified Status: Acute 3 weeks IV Ceftriaxone then possible po but may not need May give po Bactrim for toxoplasmosis prevention unless other factors. (2) Tracheostomy dependent: Status: Acute
[2023-09-25] MEDS: cefTRIAXone sodium 2 GM in 0.9 % Sodium Chloride 50 ML IV (02:41)
[2023-09-25] MEDS: Heparin Sodium,Porcine 5,000 UNIT/ML VIAL 5000 UNIT SUBCUT ×3 (05:15→23:29)
[2023-09-25] MEDS: Midodrine HCl 2.5 MG TABLET 7.5 MG G-TUBE ×3 (05:16→14:56)
[2023-09-25 08:43] LABS: Vancomycin Trough 12.3 mcg/mL (10.0-20.0)
[2023-09-25 08:44] LABS: Creatinine Clr Calc Pharmacy 97.9; Estimated Glomerular Filt Rate > 60
--- NOTE | 2023-09-25 09:24 | PM.PNORT ---
Subjective Subjective Date of Service: 09/25/23 Interval history: POD2 s/p left knee arthrotomy and lavage Patient is resting in bed No overnight events Pain appears to be managed Physical Exam Vital Signs: Vital Signs: Last Vital Signs Temp 100.9 F H 09/25/23 08:00 Pulse 101 H 09/25/23 08:00 Resp 20 09/25/23 08:00 BP 138/73 09/25/23 08:00 Pulse Ox 94 09/25/23 08:00 O2 Del Method Trach Collar 09/25/23 03:20 O2 Flow Rate 5 09/25/23 03:20 FiO2 28 09/25/23 03:20 BMI result Body Mass Index 22.3 Const: General: cooperative, healthy appearing and no acute distress Resp: Effort & Inspection: normal respiratory effort and able to speak in complete sentences Cardio: Rate: regular rate Peripheral pulses: Peripheral pulses 2+ throughout GI: Palpation (GI): Soft to palpation Skin: Lesions: no lesions Rashes: no rashes Extrem: Other: left knee dressing is c/d/i. Drain in place with no collection in the bulb - Does not appear to be functioning properly. Flexion contracture. Procedures Date of Service Date of Service: 09/25/23 Progress Note: A&P Assessment and plan (1) Sepsis: Status: Acute (2) Septic joint of left knee joint: Status: Acute Plan Continue pain mgmnt Drain removed at bedside Dressing placed over the knee -Anticipate continued drainage -Dressing changes as needed Time Spent With Patient Time: Total time managing care of this patient today ____ minutes. Quality Stroke Does the patient have a stroke diagnosis?: No VTE Prior VTE?: No VTE Risk Level:: Medical - moderate - high VTE Device Contraindication: Treatment Not Indicated VTE Drug Contraindication: N/A - Med Ordered
--- NOTE | 2023-09-25 09:33 | MHC.CM.PN ---
EMR reviewed and per hospitalist, pt will be getting a midline placed tomorrow and per ID will need 3 weeks of IV ceftriaxone. Referral placed to [facility] with clinical updates.
[2023-09-25] MEDS: Morphine Sulfate Oral Sol 10 MG/5 ML SOLUTION G-TUBE (09:44)
[2023-09-25] MEDS: Glycopyrrolate 1 MG TABLET 0.5 MG G-TUBE ×2 (09:52→22:00)
[2023-09-25] MEDS: Ascorbic Acid 250 MG TABLET G-TUBE (09:52)
[2023-09-25] MEDS: Baclofen 10 MG TABLET 5 MG G-TUBE ×3 (09:52→18:27)
[2023-09-25] MEDS: Zinc Sulfate 220 MG CAPSULE G-TUBE (09:52)
[2023-09-25] MEDS: Lacosamide 100 MG TABLET 200 MG G-TUBE ×2 (09:52→21:59)
[2023-09-25] MEDS: Sennosides/Docusate Sodium TABLET 2 TAB PO ×2 (09:53→18:26)
[2023-09-25] MEDS: Multivitamin TABLET 1 TAB PO (09:53)
[2023-09-25] MEDS: 0.9 % Sodium Chloride Flush 3 ML SYRINGE IVFLUSH (09:53)
[2023-09-25] MEDS: Sulfamethox/Trimeth 800/160 TABLET 1 TAB PO ×2 (09:53→21:59)
[2023-09-25] MEDS: Cholestyramine (With Sugar) 4 GM POWD.PACK G-TUBE ×2 (09:53→18:26)
--- NOTE | 2023-09-25 12:02 | HO.PM.IMPN ---
Subjective Subjective Date of Service: 09/25/23 Interval History: Seen and evaluated this morning pain much better her is non verbal starting tube feed no reported overnight events Review of Systems Review of Systems: Yes all other systems are reviewed and are negative Physical Exam Vital Signs: Vital Signs: Last Vital Signs Temp 97.2 F 09/25/23 11:29 Pulse 94 09/25/23 11:29 Resp 20 09/25/23 11:29 BP 130/67 09/25/23 11:29 Pulse Ox 96 09/25/23 11:29 O2 Del Method Humidified O2 09/25/23 11:29 O2 Flow Rate 3 09/25/23 11:29 FiO2 28 09/25/23 03:20 BMI result Body Mass Index 22.3 Const: Other: Constitutional : Awake,? not in distress Neck : Normal inspection, Supple Cardiovascular : RRR, no JVP, no lower extremity edema Respiratory : fair bilateral air entry,? basal bilateral crackles, Trach with no significant secretions. Gastrointestinal:? soft, lax, Normal bowel sounds, G-tube in place, no significant tenderness Skin : Warm, Dry, chronic decubetus ulcers Skeletal: right knee swelling and warmth down, drain in place and empty Neurological : Alert, No focal deficit but retracted Objective Data Active Medications Acetaminophen (Acetaminophen 325 Mg Tablet) 650 mg G-TUBE Q4H PRN PRN Reason: Fever Or Pain Last Admin: 09/24/23 23:42 Dose: 650 mg Documented By: ROSLYN Acetylcysteine (Acetylcysteine 20 % 6,000 Mg/30 Ml Vial) 400 mg INHALE Q12H PRN PRN Reason: THICK AIRWAY SECRETION Albuterol Sulfate (Albuterol Sulfate (0.083%) 2.5 Mg/3 Ml Vial.Neb) 2.5 mg INHALE Q4H PRN PRN Reason: Shortness Of Breath Or Wheezing Albuterol/Ipratropium (Albuterol/Iprat 2.5/0.5mg 3 Ml Ampul.Neb) 3 ml INHALE Q4H PRN PRN Reason: Shortness of Breath/Wheezing Ascorbic Acid (Ascorbic Acid 250 Mg Tablet) 250 mg G-TUBE DAILY RACHELL Last Admin: 09/25/23 09:52 Dose: 250 mg Documented By: NOAM Baclofen (Baclofen 10 Mg Tablet) 5 mg G-TUBE TID@0900,1300,1700 [facility] Last Admin: 09/25/23 09:52 Dose: 5 mg Documented By: NOAM Comments: Bisacodyl (Bisacodyl 10 Mg Supp.Rect) 10 mg DE DAILY PRN PRN Reason: Constipation Cholestyramine Resin (Cholestyramine (With Sugar) 4 Gm Powd.Pack) 4 gm G-TUBE BIDWM [facility] Last Admin: 09/25/23 09:53 Dose: 4 gm Documented By: NOAM Fentanyl (Fentanyl Citrate/Pf 100 Mcg/2 Ml Vial) 25 mcg IVPUSH Q5M PRN; Protocol PRN Reason: Pain, Moderate(Pain Scale 4-6) Finasteride (Finasteride 5 Mg Tablet) 5 mg PO DAILY [facility] Last Admin: 09/25/23 09:53 Dose: Not Given Documented By: NOAM Non-Admin Reason: cannot be crushed Glycopyrrolate (Glycopyrrolate 1 Mg Tablet) 0.5 mg G-TUBE BID [facility] Last Admin: 09/25/23 09:52 Dose: 0.5 mg Documented By: NOAM Guaifenesin (Guaifenesin 200 Mg/10 Ml 10 Ml Liquid) 10 ml PO Q4H PRN PRN Reason: Cough Heparin Sodium (Porcine) (Heparin Sodium,Porcine 5,000 Unit/Ml Vial) 5,000 unit SUBCUT Q8H [facility] Last Admin: 09/25/23 05:15 Dose: 5,000 unit Documented By: ROSLYN Ceftriaxone Sodium 2 gm/ (Sodium Chloride) 50 mls @ 100 mls/hr IV Q24H [facility] Last Infusion: 09/25/23 03:28 Dose: Infused Documented By: ROSLYN Ibuprofen (Ibuprofen 600 Mg Tablet) 600 mg G-TUBE Q8H PRN PRN Reason: FEVER UNRESPONSIVE TO APAP Lacosamide (Lacosamide 100 Mg Tablet) 200 mg G-TUBE BID [facility] Last Admin: 09/25/23 09:52 Dose: 200 mg Documented By: NOAM Loperamide HCl (Loperamide Hcl 2 Mg Capsule) 2 mg G-TUBE Q4H PRN PRN Reason: Diarrhea Lorazepam (Lorazepam 0.5 Mg Tablet) 0.5 mg G-TUBE Q6H PRN PRN Reason: Anxiety Magnesium Hydroxide (Milk Of Magnesia 30 Ml Oral.Susp) 30 ml G-TUBE DAILY PRN PRN Reason: Constipation Melatonin (Melatonin 3 Mg Tablet) 3 mg G-TUBE BEDTIME [facility] Last Admin: 09/24/23 20:11 Dose: 3 mg Documented By: ROSLYN Midodrine (Midodrine Hcl 2.5 Mg Tablet) 7.5 mg G-TUBE TID@0600,1000,1400 [facility] Last Admin: 09/25/23 09:53 Dose: 7.5 mg Documented By: NOAM Morphine Sulfate (Morphine Sulfate Oral Cady 10 Mg/5 Ml Solution) 5 mg G-TUBE DAILY@1700 [facility] Last Admin: 09/24/23 18:03 Dose: 5 mg Documented By: BUCK Morphine Sulfate (Morphine Sulfate Oral Cady 10 Mg/5 Ml Solution) 10 mg G-TUBE DAILY [facility] Last Admin: 09/25/23 09:44 Dose: 10 mg Documented By: NOAM Multivitamins/Vitamin C (Multivitamin Tablet) 1 tab PO DAILY [facility] Last Admin: 09/25/23 09:53 Dose: 1 tab Documented By: NOAM Ondansetron HCl (Ondansetron Hcl 4 Mg/2 Ml Vial) 4 mg IM Q4H PRN PRN Reason: Nausea And Vomiting Ondansetron HCl (Ondansetron Odt 4 Mg Tab.Rapdis) 4 mg TRANSLINGU Q4H PRN PRN Reason: Nausea And Vomiting Oxycodone HCl (Oxycodone Hcl Immed Release 5 Mg Tablet) 5 mg G-TUBE Q4H PRN PRN Reason: Pain (Scale Score 4-6) Polyethyl Glycol/Propylene Glycol (Propylene Glycol/Peg 400 Gel Eye Drops 10ml) 2 drop EYE-BOTH BID [facility] Last Admin: 09/25/23 11:55 Dose: Not Given Documented By: NOAM Non-Admin Reason: Previously Administered Scopolamine (Scopolamine 1.5 Mg Patch.Td.3) 1.5 mg TRANSDERMA Q3D [facility] Last Admin: 09/23/23 00:07 Dose: Not Given Documented By: JOHNNY Non-Admin Reason: Med Not Available Senna/Docusate Sodium (Sennosides/Docusate Sodium Tablet) 2 tab PO BID@0900,1700 [facility] Last Admin: 09/25/23 09:53 Dose: 2 tab Documented By: NOAM Sodium Biphosphate/Sodium Phosphate (Sodium Phosphate,[place]-Dibasic 133 Ml Enema) 133 ml DE DAILY PRN PRN Reason: Constipation Sodium Chloride (0.9 % Sodium Chloride Flush 3 Ml Syringe) 3 ml IVFLUSH QSHIFT [facility] Last Admin: 09/25/23 09:53 Dose: 3 ml Documented By: NOAM Sucralfate (Sucralfate 1 Gm Tablet) 1 gm PO BID@1300,1700 [facility] Last Admin: 09/24/23 17:39 Dose: 1 gm Documented By: ROBBIE Tramadol HCl (Tramadol Hcl 50 Mg Tablet) 50 mg G-TUBE Q4H PRN PRN Reason: Pain (Scale Score 1-3) Triamcinolone Acetonide (Triamcinolone Acet 0.5 % Oint 15 Gm Tube) 1 appl TOPICAL DAILY [facility] Last Admin: 09/25/23 10:03 Dose: Not Given Documented By: NOAM Non-Admin Reason: Med Not Available Trimethoprim/Sulfamethoxazole (Sulfamethox/Trimeth 800/160 Tablet) 1 tab PO BID [facility] Last Admin: 09/25/23 09:53 Dose: 1 tab Documented By: NOAM Zinc Sulfate (Zinc Sulfate 220 Mg Capsule) 220 mg G-TUBE DAILY [facility] Last Admin: 09/25/23 09:52 Dose: 220 mg Documented By: NOAM Labs 09/23/23 05:08 09/25/23 08:16 Labs: Laboratory Results - last 24 hr 09/25/23 08:16 Hold Purple Top SEE NOTE Estim Creat Clear Calc 97.9 Estimated GFR > 60 Vancomycin Trough 12.3 Microbiology Microbiology Results: Microbiology 09/22/23 20:29 Gram Stain - Final Knee aspirate Anaerobic Culture - Preliminary Culture in progress. Fluid Crystals - Final Joint Fluid Culture - Final Strep agalactiae (Grp B) 09/22/23 17:24 Blood Culture - Preliminary Blood - Venous No growth after 48 hours. 09/22/23 17:15 Blood Culture - Preliminary Blood - Venous No growth after 48 hours. 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 POD 2 post wash out by orthopedic, drain in place negative blood cultures, to place Midline Fluid culture growing GPC IV antibiotic therapy with vancomycin and dc Zosyn. Orthopedic following ID input appreciated, 3 weeks of Ceftriaxone. acute Catheter-associated Bacteruria negative cultures DC Zosyn. Catheter replacement. BPH w/ chronic indwelling urinary catheter. Continue finasteride. Chronic respiratory failure on chronic tracheostomy. Trach care. Acetylcysteine and DuoNeb inhalations as needed. Continue Robinul b.i.d., morphine, scopolamine. 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 Continue leucovorin, atovaquone and baclofen. Seizure disorder. Continue Vimpat. Chronic anemia. Continue to monitor hemoglobin. DVT prophylaxis: Heparin subcut Code status: Full Patient will need hospitalization overnight for sepsis secondary to septic arthritis and urinary tract infection treatment with broad-spectrum IV antibiotic and surgical intervention by orthopedic service. Quality Stroke Does the patient have a stroke diagnosis?: No VTE Prior VTE?: No VTE Risk Level:: Medical - moderate - high VTE Device Contraindication: Treatment Not Indicated VTE Drug Contraindication: N/A - Med Ordered
[2023-09-25] MEDS: Sucralfate 1 GM TABLET PO ×2 (14:56→18:27)
[2023-09-25] MEDS: Morphine Sulfate Oral Sol 10 MG/5 ML SOLUTION 5 MG G-TUBE (18:26)
[2023-09-25] MEDS: Propylene Glycol/PEG 400 Gel Eye Drops 10ML 2 DROP EYE-BOTH (21:00)
[2023-09-25] MEDS: Melatonin 3 MG TABLET G-TUBE (21:59)
[2023-09-25] MEDS: Scopolamine 1.5 MG PATCH.TD.3 TRANSDERMA (22:07)
[2023-09-26] MEDS: 0.9 % Sodium Chloride Flush 3 ML SYRINGE IVFLUSH ×2 (00:38→09:36)
[2023-09-26] MEDS: cefTRIAXone sodium 2 GM in 0.9 % Sodium Chloride 50 ML IV ×2 (00:38→10:44)
[2023-09-26] MEDS: Acetaminophen 325 MG TABLET 650 MG G-TUBE ×2 (00:40→05:28)
[2023-09-26 03:34] VITALS: BP 124/74; PULSE 96; RESP 19; TEMP 37.4; O2SAT 97
[2023-09-26] MEDS: Midodrine HCl 2.5 MG TABLET 7.5 MG G-TUBE ×2 (05:28→09:39)
[2023-09-26] MEDS: Heparin Sodium,Porcine 5,000 UNIT/ML VIAL 5000 UNIT SUBCUT (06:29)
[2023-09-26 07:07] LABS: Creatinine Clr Calc Pharmacy 105.3; Estimated Glomerular Filt Rate > 60
[2023-09-26 07:14] VITALS: BP 137/84; PULSE 86; RESP 22; TEMP 37.2; O2SAT 96
--- NOTE | 2023-09-26 08:34 | HO.MIDLINE_ITS ---
Midline Insertion MIDLINE INSERTION Diagnosis: sepsis Indication: ABT x 3 wks Pertinent Labs: reviewed Technique: Using sterile technique including cap and mask, glove and drape, the right arm was prepped and draped in the usual sterile fashion of full barrier technique with CHG. Using ultrasound guidance, right basilic vein access was obtained . 20G x 8cm nonPASV midline catheter was positioned. The procedure was performed in room 272. Ultrasound was used to document vein patency and for needle entry. A formal ultrasound picture was recorded. Vascular Clinical Applications Manager has released the line for use and it is currently dressed with a StatLock, Tegaderm, and CHG disc. Verification has been performed for blood return and line patency. Arm Circumference: 28cm Equipment: BARD PowerGLide ST midline catheter Catheter Type: 20G x 8cm nonPASV midline catheter Lot #: [id number]
--- NOTE | 2023-09-26 09:32 | MHC.CM.PN ---
AUGUST spoke with Aye in Admissions @ [facility] @ [phone] to let her know that Patient is ready to return to them today. AUGUST has faxed clinicals to Aye @ [phone] and await a response as to what time Patient can return. AUGUST will follow.
[2023-09-26] MEDS: Triamcinolone Acet 0.5 % Oint 15 GM TUBE 1 APPL TOPICAL (09:33)
--- NOTE | 2023-09-26 09:34 | PM.DS ---
DS: Providers Provider Date of Service: 09/26/23 Date of admission: 09/22/23 22:37 Primary care physician: Florencia Delgado NP Consults: 09/22/23 22:41 Consult to Orthopedics Routine Consulting Provider: [facility] Orthopedic Surgeons Reason for consultation: septic arthritis Has provider been notified: Yes 09/24/23 08:07 Consult to Infectious Diseases Routine Consulting Provider: [facility] Infectious Disease Reason for consultation: septic arthritis for eval and advice DS: Diagnosis Discharge Diagnosis (1) Sepsis: Status: Acute (2) Septic joint of left knee joint: Status: Acute (3) Tracheostomy dependent: Status: Acute DS: Summary Hospital Course Hospital Course: Admission note ISAAC Marin is a 52 years old man with [employer] PAYROLL 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 The patient is nonverbal and HIPI was obtained from ED provider. Fever has been on and off over the last 4 days. There was a concern for septic arthritis on the left knee. In the ED, he was found to have fever and tachycardia. Blood pressure is normal. He was placed on supplemental oxygen via trach collar, 10 L/min but now he is on room air with oxygen saturation of 95%. Blood workup showed no leukocytosis. CRP is markedly elevated. No significant electrolyte imbalances. Renal function is normal. Anemia is chronic per baseline. INR is normal.. Urinalysis consistent with urinary tract infection. Viral testing for COVID-19 and influenza is negative. Synovial fluid was obtained by ED and synovial fluid was sent for analysis. CXR showed no acute changes. Left knee x-ray (evaluation limited) without discrete acute abnormality. ED tx: Vancomycin 1.5 g IV, Zosyn 3.375 g IV, acetaminophen 650 mg x 2, NS 1 L bolus. Hospital course The patient was admitted to the hospital for treatment of Sepsis 2/2 Septic arthritis of the right knee as aspirated fluids from the knee showed signs of infection. Had wash out by orthopedic team with good response, drain remained in place with no significant drainage. negative blood cultures. He was treated primarly with Vancomycin and Zosyn. Fluid culture grew Strep grp B. Evaluated by infectious disease specialist who recommended 3 weeks of IV Ceftriaxone 2 gm daily. Was also noted to have abnormal urine test likely acute Catheter-associated Bacteruria with negative cultures. The Catheter was replaced. To continue 3 weeks of Ceftriaxone 2 gm daily. Time Attestation Discharge coordination time: Greater than 30 minutes Quality: Safe Use of Opioids Does Pt have an Active Cancer Diagnosis on the Problem List?: No Quality: Stroke Does the patient have a stroke diagnosis?: No Physical Exam Vital Signs: Vital Signs: Last Vital Signs Temp 98.9 F 09/26/23 07:14 Pulse 86 09/26/23 07:14 Resp 22 H 09/26/23 07:14 BP 137/84 09/26/23 07:14 Pulse Ox 96 09/26/23 07:14 O2 Del Method Room Air 09/26/23 07:14 O2 Flow Rate 3 09/26/23 03:34 FiO2 28 09/25/23 03:20 BMI result Body Mass Index 22.3 Const: Other: Constitutional : Awake,? not in distress Neck : Normal inspection, Supple Cardiovascular : RRR, no JVP, no lower extremity edema Respiratory : fair bilateral air entry,? basal bilateral crackles, Trach with no significant secretions. Gastrointestinal:? soft, lax, Normal bowel sounds, G-tube in place, no significant tenderness Skin : Warm, Dry, chronic decubetus ulcers Skeletal: right knee swelling and warmth resolving Neurological : Alert, No focal deficit but retracted DS: Data Data Completed and Pending Completed studies during hospitalization [Text1]: Procedures Change Tracheostomy Device in Trachea, External Approach (01/31/23) Excision of Lower Esophagus, Via Natural or Artificial Opening Endoscopic, Diagnostic (01/31/23) Insertion of Infusion Device into Right Basilic Vein, Percutaneous Approach (06/04/23) Insertion of Infusion Device into Superior Vena Cava, Percutaneous Approach (01/02/23) Ultrasonography of Superior Vena Cava, Guidance (01/02/23) Labs on day of discharge: Laboratory Results - last 24 hr 09/26/23 06:34 Creatinine 0.79 Estim Creat Clear Calc 105.3 Estimated GFR > 60 Preliminary micro results at discharge 09/22/23 20:29 Anaerobic Culture - Preliminary Knee aspirate Culture in progress. 09/22/23 17:24 Blood Culture - Preliminary Blood - Venous No growth after 48 hours. 09/22/23 17:15 Blood Culture - Preliminary Blood - Venous No growth after 48 hours. Imaging Chest x-ray: Radiologist's impression: ITS Impressions Chest X-Ray 09/22/23 18:07 IMPRESSION: No significant change compared to 07/28/2023. Knee X-Ray 09/22/23 18:10 IMPRESSION: Extremely limited examination without discrete acute abnormality. Evaluation with additional views or correlation with CT as clinically warranted. Discharge Plan Discharge Anticipated Discharge Date/Time: 09/26/23 11:00 Patient Disposition: [facility] Discharge Diagnosis: Septic arthritis Referrals: [facility] [Outside] - 1 Week Florencia Delgado NP [Primary Care Provider] - 1 Week Discharge Medications: New ceftriaxone 2 gram Recon Soln 2 g IV Q24H Qty: 19 0RF Continued glycopyrrolate 1 mg Tablet 0.5 mg feeding tube BID leucovorin calcium 25 mg Tablet 25 mg feeding tube BEDTIME midodrine 5 mg Tablet 7.5 mg feeding tube TID@0600,1000,1400 Rx Instructions: do not give last dose of day after 6PM or within 4 hrs of bedtime melatonin 3 mg Tablet 3 mg feeding tube BEDTIME ascorbic acid (vitamin C) 250 mg Tablet 250 mg feeding tube DAILY baclofen 10 mg Tablet 5 mg feeding tube TID@0900,1300,1700 finasteride 5 mg Tablet 5 mg feeding tube DAILY atovaquone 750 mg/5 mL Suspension 750 mg feeding tube BIDWM Rx Instructions: must administer with food, preferably a high-fat meal cholestyramine-aspartame [Cholestyramine Light] 4 gram Powder In Packet 4 g feeding tube BIDWM Rx Instructions: administer w/meal; avoid other meds within 1hr before or 4-6hr after dose lacosamide 200 mg Tablet 200 mg feeding tube BID cholecalciferol (vitamin D3) 1,250 mcg (50,000 unit) Tablet 1,250 mcg feeding tube QMONTH Rx Instructions: MONTHLY ON DAY 15 OF THE MONTH acetaminophen 325 mg Tablet 650 mg feeding tube Q4H PRN (Reason: Fever Or Pain) albuterol sulfate 2.5 mg /3 mL (0.083 %) Solution For Nebulization 2.5 mg INHALATION Q4H PRN (Reason: Shortness Of Breath Or Wheezing) loperamide 2 mg Capsule 2 mg feeding tube Q4H PRN (Reason: Diarrhea) Rx Instructions: administer after each loose stool until symptoms controlled; do not exceed 8 mg per 24 hrs ondansetron HCl 2 mg/mL Solution 4 mg IM Q4H PRN (Reason: Nausea And Vomiting) Rx Instructions: IF NO RELIEF FROM PO ondansetron HCl 4 mg Tablet 4 mg feeding tube Q4H PRN (Reason: Nausea And Vomiting) sennosides-docusate sodium [Senna with Docusate Sodium] 8.6-50 mg Tablet 2 tab-cap PO BID@0900,1700 Rx Instructions: G-TUBE tramadol 50 mg Tablet 50 mg feeding tube Q4H PRN (Reason: Pain (Scale Score 1-3)) zinc sulfate 50 mg zinc (220 mg) Tablet 50 mg feeding tube DAILY lorazepam 0.5 mg Tablet 0.5 mg feeding tube Q6H PRN (Reason: Anxiety) magnesium hydroxide [Milk of Magnesia] 400 mg/5 mL Suspension 30 ml feeding tube DAILY PRN (Reason: Constipation) bisacodyl 10 mg Suppository 10 mg WA DAILY PRN (Reason: Constipation) Fleet Enema 19-7 gram/118 mL Enema 118 ml WA DAILY PRN (Reason: Constipation) morphine 10 mg/5 mL Solution 10 mg feeding tube DAILY scopolamine base 1 mg over 3 days Patch 3 Day 1 patch TRANSDERMAL Q3D oxycodone 5 mg Tablet 5 mg feeding tube Q4H PRN (Reason: Pain (Scale Score 4-6)) guaifenesin 200 mg/5 mL Liquid 200 mg feeding tube Q4H PRN (Reason: Cough) lorazepam 2 mg/mL Solution 2 mg IM ONCE PRN (Reason: Seizures) Rx Instructions: 2 mg intramuscularly as directed for seizure >2 minutes multivitamin Tablet 1 tab feeding tube DAILY pyrimethamine 25 mg Tablet 50 mg feeding tube DAILY sucralfate 1 gram Tablet 1 g PO BID@1300,1700 carboxymethylcellulose sodium 0.25 % Drops 2 drp OPHTHALMIC (EYE) BID morphine 10 mg/5 mL Solution 5 mg feeding tube DAILY@1700 betamethasone dipropionate 0.05 % Ointment 1 appl TOPICAL DAILY Rx Instructions: left buttock wound acetylcysteine 200 mg/mL (20 %) Solution 2 ml INHALATION Q12H PRN (Reason: THICK AIRWAY SECRETION) ibuprofen 600 mg Tablet 600 mg PO Q8H PRN (Reason: FEVER UNRESPONSIVE TO APAP) Discharge Orders: Discharge Order (Routine); Ordered 09/26/23 Ordered By: Patrick Pineda Diet: Advance to usual diet Activity on Discharge: As tolerated Stand Alone Forms: Patient Portal Discharge page Care Plan Goals: Read below Health Concerns: Read below Plan of Treatment: Read below Assessment: Continue Ceftriaxone as prescribed
[2023-09-26] MEDS: Finasteride 5 MG TABLET PO (09:36)
[2023-09-26] MEDS: Cholestyramine (With Sugar) 4 GM POWD.PACK G-TUBE (09:36)
[2023-09-26] MEDS: Propylene Glycol/PEG 400 Gel Eye Drops 10ML 2 DROP EYE-BOTH (09:37)
[2023-09-26] MEDS: Sulfamethox/Trimeth 800/160 TABLET 1 TAB PO (09:40)
[2023-09-26] MEDS: Ascorbic Acid 250 MG TABLET G-TUBE (09:40)
[2023-09-26] MEDS: Lacosamide 100 MG TABLET 200 MG G-TUBE (09:41)
[2023-09-26] MEDS: Morphine Sulfate Oral Sol 10 MG/5 ML SOLUTION G-TUBE (09:43)
[2023-09-26] MEDS: Multivitamin TABLET 1 TAB PO (09:46)
[2023-09-26] MEDS: Sennosides/Docusate Sodium TABLET 2 TAB PO (09:46)
[2023-09-26] MEDS: Zinc Sulfate 220 MG CAPSULE G-TUBE (09:47)
[2023-09-26] MEDS: Baclofen 10 MG TABLET 5 MG G-TUBE (09:48)
[2023-09-26] MEDS: Glycopyrrolate 1 MG TABLET 0.5 MG G-TUBE (09:48)
[2023-09-26] MEDS: Heparin Sodium,Porcine Flush 50 UNITS, 0.9 % Sodium Chloride Flush 5 ML IVFLUSH (09:49)
[2023-09-26 10:04] VITALS: BMI 22.3
--- NOTE | 2023-09-26 10:08 | MHC.CLN ---
PT REQUIRES TF FOR NUTRITION SUPPORT PT WITH INCREASED NUTRITION RISK R/T PRESSURE INJURIES PT CURRENTLY RECEIVING TF OSMOLITE 1.5 AT MAX GOAL RATE 60ML/HR WITH 240ML Q 6 HRS PROVIDES 2160KCALS (32KCALS/KG), 90G PROTEIN (1.4G/KG), 2057ML TOTAL FREE WATER FROM FORMULA AND FLUSHES (31ML/KG) MONITOR TOLERANCE, RESIDUALS AND LYTES TF WILL PROMOTE WOUND HEALING SEE ALSO FULL CLINICAL NUTRITION ASSESSMENT
--- NOTE | 2023-09-26 10:34 | MHC.CM.PN ---
Per MD, Patient is medically cleared for dc to return to [facility] today. Patient will return to [facility] today at 1PM, via [facility]. AUGUST spoke with KRISTEN/Cornelius @ [phone] and informed him of the dc plan.
--- NOTE | 2023-09-26 10:39 | MHC.CM.PN ---
The dc summary [facility] @ [phone].
--- NOTE | 2023-09-26 11:06 | MHC.CM.PN ---
SIGNED dc summary has been faxed to [facility] to [phone].
[2023-09-26 11:41] VITALS: BP 114/76; PULSE 78; RESP 20; TEMP 36.6; O2SAT 99
--- NOTE | 2023-09-28 07:51 | P.BOP_ITS ---
Brief Operative Note Date of Service: 09/23/23 Pre-op diagnosis: Date of Service: 09/23/23 Pre-op diagnosis: septic left knee Post-op diagnosis: same Procedure: Arthrotomy and lavage left knee Surgeon: Tariq Medina MD Anesthesia: GEENAA Was an Diesel Tractor Engine Mechanic used for this Procedure?: No Estimated blood loss (mL): 25 IV fluids (mL): 500 Pathology: none sent Condition: stable Disposition: PACU Procedure in detail: Patient was brought to the operating room placed supine on the arthroscopic table and prepped and draped in standard sterile fashion. A time-out was called to identify proper site proper procedure proper surgeon and IV antibiotics per weight were administered. The patient had a severe knee contracture with ~10 deg of motion. This made it very difficult to gain access to the knee. I made an anterolateral stab incision and expressed purulent synovial fluid. I opened this up with a clamp. I then irrigated with gravity cysto tubing. I was unable to gain access medially or superiorly given the severe contracture. I placed a 7F CAITLYN drain and closed the portal with a 2.0 nylon. Patient was then placed in sterile dressing extubated brought recovery room stable condition. There were no known complications. Surgeon: Tariq Medina MD Was an Diesel Tractor Engine Mechanic used for this Procedure?: No Estimated blood loss (mL): 20
== END 2023-09-26 13:00 | DRG 710 ==
LOC: HO.ED 17:47 → HO.EDOVER 22:49 → HO.IMC 09-23 19:30
PROVIDERS: Orthopaedic Surgery; Physician Assistant; Admitting Provider Internal Medicine; Emergency Provider Internal Medicine; PCP Nurse Practitioner Adult Health; Visit Provider Student in an Organized Health Care Education/Training Program
PROC: 0S9D0ZZ Drainage of Left Knee Joint, Open Approach (ICD-10-PCS; CPT 29870; principal; 2023-09-23 14:30)
PROC: 05HB33Z Insertion of Infusion Device into Right Basilic Vein, Percutaneous Approach (ICD-10-PCS; principal; 2023-09-26 08:00)
DX: A41.9 Sepsis, unspecified organism (principal); D84.821 Immunodeficiency due to drugs; C83.10 Mantle cell lymphoma, unspecified site; M00.262 Other streptococcal arthritis, left knee; G82.20 Paraplegia, unspecified; J96.10 Chronic respiratory failure, unspecified whether with hypoxia or hypercapnia; G40.909 Epilepsy, unspecified, not intractable, without status epilepticus; N40.0 Benign prostatic hyperplasia without lower urinary tract symptoms; D63.0 Anemia in neoplastic disease; M24.562 Contracture, left knee; B94.8 Sequelae of other specified infectious and parasitic diseases; N39.0 Urinary tract infection, site not specified; Z93.0 Tracheostomy status; Z93.1 Gastrostomy status; Z20.822 Contact with and (suspected) exposure to COVID-19; Z79.899 Other long term (current) drug therapy
CPT/HCPCS: 36410; 36415; 71045; 73560; 80053; 80202; 81001; 82565; 82945; 83605; 83615; 83735; 84157; 85025; 85652; 86140; 87040; 87070; 87073; 87147; 87205; 87502; 87635; 89051; 89060; 93005; 99285; C1751; C1758; C1894; J0171; J0696; J1642; J1644; J2250; J2543; J2704; J2795; J3010; J3370; J3371

== ENCOUNTER → 2023-09-22 17:03 | Outpatient (BNV) | payer MEDICAID, SELFPAY | PROVIDERS: Admitting Provider Internal Medicine; Emergency Provider Internal Medicine; PCP Nurse Practitioner Adult Health; Visit Provider Internal Medicine | DX: R50.9 Fever, unspecified (principal); M00.9 Pyogenic arthritis, unspecified | CPT/HCPCS: 93010 ==

== ENCOUNTER → 2023-09-22 22:37 | Outpatient (BNV) | payer MEDICAID, SELFPAY | PROVIDERS: Admitting Provider Internal Medicine; Emergency Provider Internal Medicine; PCP Nurse Practitioner Adult Health; Visit Provider Internal Medicine | DX: M00.9 Pyogenic arthritis, unspecified (principal); Z93.0 Tracheostomy status | CPT/HCPCS: 99222 ==

== ENCOUNTER → 2023-09-22 22:37 | Outpatient (BNV) | payer MEDICAID, SELFPAY | PROVIDERS: Admitting Provider Internal Medicine; Emergency Provider Internal Medicine; PCP Nurse Practitioner Adult Health; Visit Provider Physician Assistant | DX: A41.9 Sepsis, unspecified organism (principal); M00.9 Pyogenic arthritis, unspecified | CPT/HCPCS: 27310; 99024; 99222 ==

== ENCOUNTER → 2023-09-22 22:37 | Outpatient (BNV) | payer MEDICAID, SELFPAY | PROVIDERS: Admitting Provider Internal Medicine; Emergency Provider Internal Medicine; PCP Nurse Practitioner Adult Health; Visit Provider Internal Medicine | DX: A41.9 Sepsis, unspecified organism (principal); M00.9 Pyogenic arthritis, unspecified; Z93.0 Tracheostomy status; Z93.1 Gastrostomy status | CPT/HCPCS: 99223; 99232; 99238; 99499 ==

== ENCOUNTER 2024-01-27 16:47 | Inpatient (IN) | payer MEDICAID, SELFPAY ==
[2024-01-27] VITALS (8 sets, daily range): BP systolic 97–103; BP diastolic 58–75; PULSE 82–104; RESP 11–16; TEMP 37.4–38; O2SAT 94–100; BMI 18.1
--- NOTE | ~2024-01-27 | CT_ITS ---
EXAMINATION: CT ABDOMEN AND PELVIS WITH CONTRAST CLINICAL INFORMATION: GNR bacteremia of indeterminate source. COMPARISON: CT chest, abdomen and pelvis 01/02/2023. TECHNIQUE: Multidetector volumetric images were obtained from the superior aspect of the liver through the pubic symphysis following administration 85 mL of Omnipaque 350 intravenous contrast. Sagittal and coronal reformatted images were obtained on the technologist's workstation. Oral contrast: No This CT examination was performed using dose optimization techniques as appropriate, variously including the following: *Automated exposure control *Adjustment of mA and/or kV according to patient size (this includes techniques or standardized protocols for targeted exams where dose is matched to indication/reason for exam; i.e. extremities or head) *Use of iterative reconstruction technique DLP: 654 mGy-cm FINDINGS: Evaluation is limited due to motion and overlying upper extremities. LUNG BASES: No focal consolidation. Trace amount of left-sided pleural fluid with minimal compressive atelectasis. Nonspecific very subtle heterogeneity of the left lateral pectoralis major musculature (image 2 series 3). Symmetric gynecomastia. LIVER, GALLBLADDER, AND BILIARY TREE: The liver is normal in size, shape, and attenuation. No focal hepatic lesion or biliary ductal dilatation is present. The gallbladder is unremarkable with no evidence of radiopaque gallstones, gallbladder wall thickening, or obvious pericholecystic inflammatory changes. PANCREAS: Unremarkable. SPLEEN: Unremarkable. ADRENAL GLANDS: Unremarkable. KIDNEYS AND URETERS: Subtle heterogeneous low density nephrogram in the lower right kidney and to a lesser extent upper left kidney. No nephrolithiasis or hydronephrosis. No significant perinephric fat stranding. Simple appearing cysts and few too small to characterize hypodensities, for which no imaging follow-up is recommended. BLADDER: Equivocal mild diffuse urinary bladder wall thickening. No perivesical inflammatory changes. GASTROINTESTINAL TRACT: Gastrostomy tube. The stomach and the small bowel are nondilated. There is diffuse distention of the colon and rectum with liquid high density content. A few areas of higher density dependent material are noted throughout the colon and rectum, for example as visualized in the cecum (4:668) and ascending colon (4:577). The cecum measures up to 9 cm in diameter. The appendix is not well seen. ABDOMINAL WALL: Smaller decubitus ulcers in the right gluteal region with significantly decreased soft tissue stranding. Fat-containing periumbilical hernias. Small focus of subcutaneous air in the left lower abdominal wall (3:65), most likely related with an injection site. LYMPH NODES: No lymphadenopathy. VASCULAR: Normal caliber abdominal aorta. PELVIC VISCERA: Unremarkable. OSSEOUS STRUCTURES: Stable minimal cortical irregularity of the osseous structures adjacent to the right decubitus ulcer in the pelvic. CT/CT abdomen pelvis w IV con IMPRESSION: Evaluation is limited due to motion and overlying upper extremities. 1. Diffuse prominent colonic and rectal distention with high density fluid content, nonspecific could be related with diarrhea, colonic pseudoobstruction or impaired intestinal motility of uncertain etiology leading to ileus. A few areas of higher density (similar to contrast) are noted layering in several regions of the colon and rectum which are indeterminate, could represent oral contrast, ingested material or potentially blood products. Evaluation of GI bleed is limited in the absence of a noncontrast or delayed venous phase. 2. Patchy appearance of the lower right kidney and to a lesser extent upper left kidney with equivocal mild diffuse urinary bladder wall thickening that could indicate acute pyelonephritis and urinary tract infection. 3. Nonspecific very subtle heterogeneity of the left lateral pectoralis major musculature. Correlate with physical examination, and if indicated consider targeted evaluation with ultrasound. 4. Smaller decubitus ulcers in the right gluteal region with decreased soft tissue stranding. Stable minimal cortical irregularity of the underlying bone in which chronic osteomyelitis cannot be excluded. 5. Trace amount of left-sided pleural fluid with minimal compressive atelectasis.
--- NOTE | ~2024-01-27 | XR_ITS ---
EXAMINATION: XR CHEST CLINICAL INFORMATION: Fever. COMPARISON: Chest radiograph dated 09/22/2023. TECHNIQUE: Frontal view of the chest was obtained. FINDINGS: There is a midline tracheostomy tube. The cardiac silhouette is normal in size. The left lung is clear. There is a small right lower lobe opacity for which infection cannot be excluded. There is no large pleural effusion. No pneumothorax. No acute osseous abnormality. XR/XR chest 1V IMPRESSION: Small right lower lobe opacity for which an infection is not excluded.
[2024-01-27 17:09] LABS: Glucose, Whole Blood 99 mg/dL (60-115)
--- NOTE | 2024-01-27 17:09 | ECG_ITS ---
Test Reason : ams Blood Pressure : / mmHG Vent. Rate : 100 BPM Atrial Rate : 100 BPM P-R Int : 148 ms QRS Dur : 084 ms QT Int : 362 ms P-R-T Axes : 063 006 067 degrees QTc Int : 466 ms Normal sinus rhythm Normal ECG When compared with ECG of 22-SEP-2023 17:03, No significant change was found Referred By: Martin Mooney Electronically Signed By:NOAH SILVA
--- NOTE | 2024-01-27 17:09 | ED_ITS ---
HPI - General Adult General Chief complaint: Altered Mental Status Stated complaint: TOXOPLASMOSIS PT W/ DECREASED MENTAL STATUS &FEVER Time Seen by Provider: 01/27/24 17:06 Source: EMS and RN notes reviewed Mode of arrival: EMS Limitations: language barrier and altered mental status History of Present Illness ED Provider: angelo GRAY narrative: Patient is 53 years old with history of mantle cell lymphoma OBGYN HOSPITALIST PHYSICIAN toxoplasmosis, chronic respiratory failure status post trach , history of BPH chronic G-tube placement with history of ESBL bacteremia comes here from care home for fever of 102 with decreased mentl status Related Data Home Medications ?Medication ?Instructions ?Recorded ?Confirmed acetaminophen 325 mg tablet 650 mg feeding tube Q4H PRN Fever 01/02/23 01/27/24 Or Pain albuterol sulfate 2.5 mg/3 mL 2.5 mg inhalation Q4H PRN 01/02/23 01/27/24 (0.083 %) solution for nebulization Shortness Of Breath Or Wheezing ascorbic acid (vitamin C) 250 mg 250 mg feeding tube DAILY 01/02/23 01/27/24 tablet atovaquone 750 mg/5 mL oral 750 mg feeding tube BIDWM 01/02/23 01/27/24 suspension baclofen 10 mg tablet 5 mg feeding tube 01/02/23 01/27/24 TID@0900,1300,1700 bisacodyl 10 mg rectal suppository 10 mg NM DAILY PRN Constipation 01/02/23 01/27/24 cholecalciferol (vitamin D3) 1,250 1,250 mcg feeding tube QMONTH 01/02/23 01/27/24 mcg (50,000 unit) tablet finasteride 5 mg tablet 5 mg feeding tube DAILY 01/02/23 01/27/24 glycopyrrolate 1 mg tablet 0.5 mg feeding tube BID 01/02/23 01/27/24 guaifenesin 200 mg/5 mL oral liquid 200 mg feeding tube Q4H PRN Cough 01/02/23 01/27/24 lacosamide 200 mg tablet 200 mg feeding tube BID 01/02/23 01/27/24 leucovorin calcium 25 mg tablet 25 mg feeding tube BEDTIME 01/02/23 01/27/24 loperamide 2 mg capsule 2 mg feeding tube Q4H PRN Diarrhea 01/02/23 01/27/24 lorazepam 0.5 mg tablet 0.5 mg feeding tube Q6H PRN Anxiety 01/02/23 01/27/24 lorazepam 2 mg/mL injection 2 mg IM ONCE PRN Seizures 01/02/23 01/27/24 solution magnesium hydroxide 400 mg/5 mL 30 ml feeding tube DAILY PRN 01/02/23 01/27/24 oral suspension (Milk of Magnesia) Constipation melatonin 3 mg tablet 3 mg feeding tube BEDTIME 01/02/23 01/27/24 morphine 10 mg/5 mL oral solution 5 mg feeding tube DAILY 01/02/23 01/27/24 ondansetron HCl 2 mg/mL 4 mg IM Q4H PRN Nausea And Vomiting 01/02/23 01/27/24 intravenous solution ondansetron HCl 4 mg tablet 4 mg feeding tube DAILY 01/02/23 01/27/24 oxycodone 5 mg tablet 5 mg feeding tube Q4H PRN Pain 01/02/23 01/27/24 (Scale Score 4-6) scopolamine base 1 mg over 3 days 1 patch transdermal Q3D 01/02/23 01/27/24 transdermal patch sennosides 8.6 mg-docusate sodium 2 tab-cap PO BID@0900,1700 01/02/23 01/27/24 50 mg tablet (Senna with Docusate Constipation Sodium) sodium phosphates 19 gram-7 118 ml NM DAILY PRN Constipation 01/02/23 01/27/24 gram/118 mL enema (Fleet Enema) tramadol 50 mg tablet 50 mg feeding tube Q4H PRN Pain 01/02/23 01/27/24 (Scale Score 1-3) zinc sulfate 50 mg zinc (220 mg) 50 mg feeding tube DAILY 01/02/23 01/27/24 tablet multivitamin 1 tab feeding tube DAILY 01/31/23 01/27/24 pyrimethamine 25 mg tablet 50 mg feeding tube DAILY 01/31/23 01/27/24 betamethasone dipropionate 0.05 % 1 appl topical DAILY 06/04/23 01/27/24 topical ointment carboxymethylcellulose sodium 0.25 2 drp ophthalmic (eye) BID 06/04/23 01/27/24 % eye drops morphine 10 mg/5 mL oral solution 2.5 mg feeding tube TID 06/04/23 01/27/24 sucralfate 1 gram tablet 1 g PO BID@1300,1700 06/04/23 01/27/24 acetylcysteine 200 mg/mL (20 %) 30 ml inhalation Q12H PRN THICK 09/22/23 01/27/24 solution AIRWAY SECRETION ibuprofen 600 mg tablet 600 mg PO Q8H PRN FEVER 09/22/23 01/27/24 UNRESPONSIVE TO APAP linaclotide 145 mcg capsule 145 mcg G-tube DAILY 01/27/24 01/27/24 (Linzess) loratadine 10 mg tablet 10 mg feeding tube DAILY 01/27/24 01/27/24 midodrine 5 mg tablet 5 mg PO TID 01/27/24 01/27/24 omeprazole 20 mg capsule,delayed 20 mg feeding tube BID 01/27/24 01/27/24 release polyethylene glycol 3350 17 gram 17 g feeding tube DAILY 01/27/24 01/27/24 oral powder packet (Miralax) simethicone 80 mg chewable tablet 80 mg feeding tube Q6H 01/27/24 01/27/24 Allergies Allergy/AdvReac Type Severity Reaction Status Date / Time cyclobenzaprine [Flexeril] Allergy Unknown Palpitation Verified 01/27/24 17:28 s Review of Systems 2 Review of Systems: Yes Unobtainable due to mental status PMFSH Past Medical History Medical History Mantle cell lymphoma Aspiration into airway Tracheostomy dependent Stage IV decubitus ulcer Osteomyelitis of pelvis Anemia Toxoplasmosis Encephalopathy OBGYN HOSPITALIST PHYSICIAN lymphoma Rectal bleeding H/O: RCT (rotator cuff tear) Depression Appendicitis Chronic pain Kidney stone Mantle cell lymphoma Surgical History History of appendectomy Family History Family History Mother COPD (chronic obstructive pulmonary disease) Sister Colon cancer Social History Social History Household Members: Unknown / Unable to assess Housing: Unknown / Unable to assess Housing Other:: [facility] Do you presently have visiting nurse or other home services: No Unable to assess alcohol history related to: Unable to respond Alcohol intake: unknown Patient Tobacco Use Status: Never used Tobacco Smoked in Last 30 Days: No Second Hand Smoke Exposure: No Use of substances other than those prescribed or required for medical reasons: Unable to respond Substance Use Type: Unknown Advance Directives: Yes Advance Directives on File: Yes Advance Directives Date on File: 06/04/23 Do you have a plan to hurt others: No Plan Nutrition Risks: On aspiration precautions service: No Current occupational status: unemployed Physical Exam ED Vital Signs: Vital Signs - 24 hr 01/27/24 17:03 01/27/24 17:15 01/27/24 17:16 Temperature 100.2 F Pulse Rate 95 92 89 Respiratory Rate 14 16 14 Blood Pressure 97/60 97/60 97/64 Pulse Oximetry 97 99 99 Oxygen Delivery Method Room Air Trach Collar Trach Collar Oxygen Flow Rate 6 01/27/24 18:25 01/27/24 20:00 01/27/24 21:00 Temperature 99.4 F 100.4 F Pulse Rate 82 91 103 H Respiratory Rate 11 L 12 13 Blood Pressure 100/69 102/75 103/61 Pulse Oximetry 100 100 100 Oxygen Delivery Method Trach Collar Trach Collar Trach Collar Oxygen Flow Rate 6 6 6 01/27/24 22:00 Temperature 100.4 F Pulse Rate 104 H Respiratory Rate 13 Blood Pressure 103/66 Pulse Oximetry 99 Oxygen Delivery Method Trach Collar Oxygen Flow Rate 6 BMI result Body Mass Index 18.1 Appearance: Alert. Tracheostomy in place No acute distress. Eyes: PERRLA, No Nystagmus ENT: Pharynx normal. Oral Mucosa moist Neck: Normal inspection. Neck supple. CVS: Normal heart rate and rhythm. Pulses normal. Respiratory: No respiratory distress. Equal air entry bilateral, no wheezing/rales/rhonchi Abdomen: Soft and nontender. Bowel sounds are present, no mass palpable, Skin: Skin warm and dry. Normal skin color. Normal skin turgor. Extremities: No lower extremity edema. No calf tenderness Neuro: Alert in contacted posture Medications Administered Discontinued Medications Generic Name Dose Route Start Last Admin Trade Name Freq PRN Reason Stop Dose Admin Sodium Chloride 1,000 mls @ 999 mls/hr 01/27/24 17:10 01/27/24 18:44 Ns IV 01/27/24 18:10 Infused .Q1H1M ONE Infusion Meropenem 1 gm/ Sodium 100 mls @ 200 mls/hr 01/27/24 17:21 01/27/24 18:18 Chloride IV 01/27/24 17:50 Infused ONCE ONE Infusion Sodium Chloride 1,000 mls @ 999 mls/hr 01/27/24 17:50 01/27/24 19:25 Ns IV 01/27/24 18:50 Infused .Q1H1M ONE Infusion Medical Decision Making Medical Decision Making MDM Narrative: 53 years old with history of mantle cell lymphoma OBGYN HOSPITALIST PHYSICIAN toxoplasmosis, chronic respiratory failure status post trach , history of BPH chronic G-tube placement with history of ESBL bacteremia comes here from care home for fever of 102 with decreased mental status workup showed UTI likely started on meropenem IV fluids were given patient is meeting criteria for sepsis Differential Diagnosis Differential Diagnoses: The differential diagnosis associated with the presentation includes Admission/Observation Consideration of admission/observation: Escalation of care including admission/observation considered Consult Healthcare Provider Management of the patient was discussed with: Hospitalist Lab Data MDM Lab Attestation statement: I reviewed the patient's lab results. 01/27/24 17:36 01/27/24 17:36 Labs: Lab Results 01/27/24 01/27/24 01/27/24 Range/Units 17:01 17:36 18:15 WBC 9.7 (4.8-10.8) X10*3/uL RBC 4.10 L (4.60-5.80) X10*6/uL Hgb 12.3 L (14.0-18.0) g/dl Hct 36.5 L (42.0-52.0) % MCV 89.0 (80.0-98.0) fL MCH 30.0 (27.0-33.0) pg MCHC 33.7 (31.0-36.0) g/dl RDW 16.7 H (11.0-16.0) % Plt Count 160 (160-400) X10*3/uL MPV 10.2 (9.4-12.4) fL Immature Gran % (Auto) 0.3 (0.0-0.4) % Neut % (Auto) 80.8 H (45-73) % Lymph % (Auto) 6.8 L (20-40) % [place] % (Auto) 11.8 H (2-11) % Eos % (Auto) 0.1 (0-4) % Baso % (Auto) 0.2 (0-2) % Lymph # (Auto) 0.7 L (1.2-4.9) X10*3/uL [place] # (Auto) 1.2 (0.1-1.2) X10*3/uL Eos # (Auto) 0.0 (0.0-0.4) X10*3/uL Baso # (Auto) 0.0 (0.0-0.2) X10*3/uL Abs Immat Gran (auto) 0.03 (0.00-0.03) X10*3/uL Absolute Neuts (auto) 7.9 (2.0-8.3) x10*3/uL Absolute Nucleated RBC 0.000 (0.0-0.012) X10*3/uL Nucleated RBC % (auto) 0.0 (0.0-0.2) /100WBC PT 13.2 (11.1-13.3) SEC INR 1.1 (0.9-1.1) Sodium 142 (135-145) mmol/L Potassium 3.8 (3.3-5.1) mmol/L Chloride 100 (96-108) mmol/L Carbon Dioxide 31 H (22-29) mmol/L Anion Gap 15 (12-20) BUN 32 H (9-16) mg/dL Creatinine 1.27 (0.5-1.4) mg/dL Estim Creat Clear Calc 59.0 Estimated GFR 60 POC Glucose 99 (60-115) mg/dL Random Glucose 95 (60-115) mg/dL Lactic Acid 0.9 (0.5-2.0) mmol/L Calcium 9.3 (8.4-10.2) mg/dL Magnesium 2.2 (1.6-2.6) mg/dL Total Bilirubin 0.5 (0.0-1.0) mg/dL AST 19 (5-37) U/L ALT 16 (0-40) U/L Alkaline Phosphatase 123 H (39-117) U/L Total Protein 7.4 (6.5-8.0) g/dL Albumin 3.6 (3.5-5.0) g/dL Urine Color Urine Appearance Urine pH (5.0-9.0) Ur Specific [place] (1.005-1.025) Urine Protein (Neg-Trace) mg/dL Urine Glucose (UA) (Negative) mg/dL Urine Ketones (Negative) mg/dL Urine Blood (Negative) Urine Nitrite (Negative) Ur Leukocyte Esterase (Negative) Urine RBC (0-2) /HPF Urine WBC (0-5) /HPF Ur Squamous Epith Cells (0-2) /HPF Urine Bacteria (None Seen) Hyaline Casts (0-2) /LPF Influenza Type A (PCR) NEGATIVE (Negative) Influenza Type B (PCR) NEGATIVE (Negative) RSV RNA Qual (PCR) NEGATIVE (Negative) SARS-CoV-2 RNA (RT-PCR) NEGATIVE (Negative) 01/27/24 Range/Units 19:19 WBC (4.8-10.8) X10*3/uL RBC (4.60-5.80) X10*6/uL Hgb (14.0-18.0) g/dl Hct (42.0-52.0) % MCV (80.0-98.0) fL MCH (27.0-33.0) pg MCHC (31.0-36.0) g/dl RDW (11.0-16.0) % Plt Count (160-400) X10*3/uL MPV (9.4-12.4) fL Immature Gran % (Auto) (0.0-0.4) % Neut % (Auto) (45-73) % Lymph % (Auto) (20-40) % [place] % (Auto) (2-11) % Eos % (Auto) (0-4) % Baso % (Auto) (0-2) % Lymph # (Auto) (1.2-4.9) X10*3/uL [place] # (Auto) (0.1-1.2) X10*3/uL Eos # (Auto) (0.0-0.4) X10*3/uL Baso # (Auto) (0.0-0.2) X10*3/uL Abs Immat Gran (auto) (0.00-0.03) X10*3/uL Absolute Neuts (auto) (2.0-8.3) x10*3/uL Absolute Nucleated RBC (0.0-0.012) X10*3/uL Nucleated RBC % (auto) (0.0-0.2) /100WBC PT (11.1-13.3) SEC INR (0.9-1.1) Sodium (135-145) mmol/L Potassium (3.3-5.1) mmol/L Chloride (96-108) mmol/L Carbon Dioxide (22-29) mmol/L Anion Gap (12-20) BUN (9-16) mg/dL Creatinine (0.5-1.4) mg/dL Estim Creat Clear Calc Estimated GFR POC Glucose (60-115) mg/dL Random Glucose (60-115) mg/dL Lactic Acid (0.5-2.0) mmol/L Calcium (8.4-10.2) mg/dL Magnesium (1.6-2.6) mg/dL Total Bilirubin (0.0-1.0) mg/dL AST (5-37) U/L ALT (0-40) U/L Alkaline Phosphatase (39-117) U/L Total Protein (6.5-8.0) g/dL Albumin (3.5-5.0) g/dL Urine Color Dark Yellow Urine Appearance Turbid Urine pH 7.5 (5.0-9.0) Ur Specific [place] 1.020 (1.005-1.025) Urine Protein 300 (3+) H (Neg-Trace) mg/dL Urine Glucose (UA) Negative (Negative) mg/dL Urine Ketones Negative (Negative) mg/dL Urine Blood Large (3+) H (Negative) Urine Nitrite Positive H (Negative) Ur Leukocyte Esterase Large (3+) H (Negative) Urine RBC >20 H (0-2) /HPF Urine WBC >50 H (0-5) /HPF Ur Squamous Epith Cells 3-5 (0-2) /HPF Urine Bacteria 3+ (None Seen) Hyaline Casts 6-10 (0-2) /LPF Influenza Type A (PCR) (Negative) Influenza Type B (PCR) (Negative) RSV RNA Qual (PCR) (Negative) SARS-CoV-2 RNA (RT-PCR) (Negative) Independent Interpretation I performed an independent interpretation of an: Plain X-Ray Radiology Impression Discussion of test interpretation with radiology: I have reviewed the radiologist's reading. Critical Care Time Critical Care Time Critical Care Time: Yes Total Critical Care Time: 55 Attestation: The patient was critically ill with a high probability of imminent or life threatening deterioration. I spent greater than ?55??minutes of discontinuous time evaluating the patient,delivering critical care at the bedside, discussing and evaluating pertinent data with consultants. Critical care time does not include time spent performing separately billable procedures or teaching. Total time spent performing critical care was 50???minutes. Discharge Plan Discharge Clinical Impression: Sepsis, Acute UTI Patient Disposition: Admitted As Inpatient
[2024-01-27 17:40] LABS: MANUAL DIFF FLAG NO
[2024-01-27] MEDS: 0.9 % Sodium Chloride 1,000 ML 999 ML IV ×2 (17:41→18:21)
[2024-01-27 17:50] LABS: Basophils Percent Auto 0.2 % (0-2); Eosinophils Percent Auto 0.1 % (0-4); Hematocrit 36.5 % (42.0-52.0); Hemoglobin 12.3 g/dl (14.0-18.0); Imm Gran Abs Auto 0.03 X10*3/uL (0.00-0.03); Imm Gran Pct Auto 0.3 % (0.0-0.4); Lymphocytes Absolute Auto 0.7 X10*3/uL (1.2-4.9); Lymphocytes Percent Auto 6.8 % (20-40); Mean Corpuscular HGB Conc 33.7 g/dl (31.0-36.0); Mean Platelet Volume 10.2 fL (9.4-12.4); Monocytes Absolute Auto 1.2 X10*3/uL (0.1-1.2); Monocytes Percent Auto 11.8 % (2-11); Neutrophils Absolute Auto 7.9 x10*3/uL (2.0-8.3); Neutrophils Percent Auto 80.8 % (45-73); Platelet Count 160 X10*3/uL (160-400); Red Cell Distribution Width 16.7 % (11.0-16.0); White Blood Count 9.7 X10*3/uL (4.8-10.8)
[2024-01-27 17:58] LABS: Alanine Aminotransferase 16 U/L (0-40); Albumin Level 3.6 g/dL (3.5-5.0); Alkaline Phosphatase 123 U/L (39-117); Anion Gap 15 (12-20); Aspartate Amino Transferase 19 U/L (5-37); Bilirubin Total 0.5 mg/dL (0.0-1.0); Blood Urea Nitrogen 32 mg/dL (9-16); Calcium 9.3 mg/dL (8.4-10.2); Carbon Dioxide 31 mmol/L (22-29); Chloride 100 mmol/L (96-108); Estimated Glomerular Filt Rate 60; Glucose Random 95 mg/dL (60-115); Magnesium 2.2 mg/dL (1.6-2.6); Potassium 3.8 mmol/L (3.3-5.1); Sodium 142 mmol/L (135-145); Total Protein 7.4 g/dL (6.5-8.0)
[2024-01-27 18:10] LABS: INTERNATIONAL NORM RATIO 1.1 (0.9-1.1); Prothrombin Time 13.2 SEC (11.1-13.3)
--- NOTE | 2024-01-27 18:28 | PC.NURSE ---
late charting due to patient care, patient presents from [facility] facility with cc of fever and altered mental status. per EMS patient is nonverbal at baseline, however usually is able to point and nod to respond to questions however per staff patient has not been answering. per SNF patient had a fever of 103 and received tylenol at the facility. per EMS when they arrived to take patient his fever was 102. patient presents to ED diaphoretic and tachypneic on trach mask by EMS. patient tachycardic in the low 100s on monitor, patient not answering questions for this RN, blood work obtained and sent to lab. PIVs placed by RNs, sepsis protocols initiated. multiple attempts by RNs and MD to place rincon catheter, MD attempted x2 with guide wire however unable to advance catheter into bladder. patient did not withdrawal from procedure, condom catheter applied by EDT. patient medicated per OCT. all lab work sent. aaron remains on hospital monitor. xray currently at bedside.
[2024-01-27 18:29] LABS: Lactic Acid 0.9 mmol/L (0.5-2.0)
[2024-01-27 18:33] LABS: Influenza A PCR NEGATIVE (Negative); Influenza B PCR NEGATIVE (Negative); Resp Syncy Virus RNA Qual PCR NEGATIVE (Negative); SARS COV2 PCR INHOUSE NEGATIVE (Negative)
[2024-01-27 19:29] LABS: Appearance Urine Turbid; Color Urine Dark Yellow; Glucose Urine UA Negative (Negative); Leukocyte Esterase Urine Large (3+) (Negative); Nitrite Urine Positive (Negative); PH 7.5 (5.0-9.0); UMIC TRIGGER UACC YES; Urine Blood Large (3+) (Negative); Urine Ketones Negative (Negative); Urine Protein 300 (3+) mg/dL (Neg-Trace)
[2024-01-27 19:56] LABS: Bacteria Urine 3+ (None Seen); RBC Urine >20 /HPF (0-2); UACC Culture Trigger YES; WBC Urine >50 /HPF (0-5)
--- NOTE | 2024-01-27 21:34 | P.HPHOSP_ITS ---
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 Pt is nonverbal and bedbound at baseline and incapable of providing HPI. In the ED pt had low-grade fever up to 100.4 and tachycardia up to 103. Labs were significant for WBC of 9.7 (up from 3.6 on 01/06/2024 and 5.5 on 01/25/2024) and creatinine of 1.28 (up from 0.86 on 01/25/2024), otherwise grossly unremarkable. Stable H&H. No significant electrolyte abnormalities. Lactic acid WNL at 0.9. Hepatic function baseline. UA positive for UTI. Tested negative for flu, RSV, COVID. CXR showed small right lower lobe opacity for which an infection can not be excluded. Pt was treated with 2 L IVF intramural panel. Pt will be admitted to the hospital for treatment and further evaluation of acute metabolic encephalopathy in the setting of UTI. Review of Systems 2 Review of Systems: Unable to obtain due to pt's mentation [facility] Medical History Mantle cell lymphoma Aspiration into airway Tracheostomy dependent Stage IV decubitus ulcer Osteomyelitis of pelvis Anemia Toxoplasmosis Encephalopathy FEED HANDLER lymphoma Rectal bleeding H/O: RCT (rotator cuff tear) Depression Appendicitis Chronic pain Kidney stone Mantle cell lymphoma Family History Mother COPD (chronic obstructive pulmonary disease) Sister Colon cancer Surgical History History of appendectomy Social History Household Members: Unknown / Unable to assess Housing: Unknown / Unable to assess Housing Other:: [facility] Do you presently have visiting nurse or other home services: No Unable to assess alcohol history related to: Unable to respond Alcohol intake: unknown Patient Tobacco Use Status: Never used Tobacco Smoked in Last 30 Days: No Second Hand Smoke Exposure: No Use of substances other than those prescribed or required for medical reasons: Unable to respond Substance Use Type: Unknown Advance Directives: Yes Advance Directives on File: Yes Advance Directives Date on File: 06/04/23 Do you have a plan to hurt others: No Plan Nutrition Risks: On aspiration precautions service: No Current occupational status: unemployed Meds Allergies Allergy/AdvReac Type Severity Reaction Status Date / Time cyclobenzaprine [Flexeril] Allergy Unknown Palpitation Verified 01/27/24 17:28 s Home Medications ?Medication ?Instructions ?Recorded ?Confirmed ?Last Taken ?Type acetaminophen 325 mg tablet 650 mg feeding tube Q4H PRN Fever 01/02/23 01/27/24 09/22/23 History Or Pain albuterol sulfate 2.5 mg/3 mL 2.5 mg inhalation Q4H PRN 01/02/23 01/27/24 Unknown History (0.083 %) solution for nebulization Shortness Of Breath Or Wheezing ascorbic acid (vitamin C) 250 mg 250 mg feeding tube DAILY 01/02/23 01/27/24 09/22/23 History tablet atovaquone 750 mg/5 mL oral 750 mg feeding tube BIDWM 01/02/23 01/27/24 09/22/23 History suspension baclofen 10 mg tablet 5 mg feeding tube 01/02/23 01/27/24 09/22/23 History TID@0900,1300,1700 bisacodyl 10 mg rectal suppository 10 mg AR DAILY PRN Constipation 01/02/23 01/27/24 Unknown History cholecalciferol (vitamin D3) 1,250 1,250 mcg feeding tube QMONTH 01/02/23 01/27/24 08/29/23 History mcg (50,000 unit) tablet finasteride 5 mg tablet 5 mg feeding tube DAILY 01/02/23 01/27/24 09/22/23 History glycopyrrolate 1 mg tablet 0.5 mg feeding tube BID 01/02/23 01/27/24 09/22/23 History guaifenesin 200 mg/5 mL oral liquid 200 mg feeding tube Q4H PRN Cough 01/02/23 01/27/24 Unknown History lacosamide 200 mg tablet 200 mg feeding tube BID 01/02/23 01/27/24 09/22/23 History leucovorin calcium 25 mg tablet 25 mg feeding tube BEDTIME 01/02/23 01/27/24 09/22/23 History loperamide 2 mg capsule 2 mg feeding tube Q4H PRN Diarrhea 01/02/23 01/27/24 Unknown History lorazepam 0.5 mg tablet 0.5 mg feeding tube Q6H PRN Anxiety 01/02/23 01/27/24 09/22/23 History lorazepam 2 mg/mL injection 2 mg IM ONCE PRN Seizures 01/02/23 01/27/24 Unknown History solution magnesium hydroxide 400 mg/5 mL 30 ml feeding tube DAILY PRN 01/02/23 01/27/24 Unknown History oral suspension (Milk of Magnesia) Constipation melatonin 3 mg tablet 3 mg feeding tube BEDTIME 01/02/23 01/27/24 09/22/23 History morphine 10 mg/5 mL oral solution 5 mg feeding tube DAILY 01/02/23 01/27/24 09/22/23 History ondansetron HCl 2 mg/mL 4 mg IM Q4H PRN Nausea And Vomiting 01/02/23 01/27/24 Unknown History intravenous solution ondansetron HCl 4 mg tablet 4 mg feeding tube DAILY 01/02/23 01/27/24 Unknown History oxycodone 5 mg tablet 5 mg feeding tube Q4H PRN Pain 01/02/23 01/27/24 09/22/23 10:02 History (Scale Score 4-6) scopolamine base 1 mg over 3 days 1 patch transdermal Q3D 01/02/23 01/27/24 09/22/23 History transdermal patch sennosides 8.6 mg-docusate sodium 2 tab-cap PO BID@0900,1700 01/02/23 01/27/24 09/22/23 History 50 mg tablet (Senna with Docusate Constipation Sodium) sodium phosphates 19 gram-7 118 ml AR DAILY PRN Constipation 01/02/23 01/27/24 Unknown History gram/118 mL enema (Fleet Enema) tramadol 50 mg tablet 50 mg feeding tube Q4H PRN Pain 01/02/23 01/27/24 Unknown History (Scale Score 1-3) zinc sulfate 50 mg zinc (220 mg) 50 mg feeding tube DAILY 01/02/23 01/27/24 09/22/23 History tablet multivitamin 1 tab feeding tube DAILY 01/31/23 01/27/24 09/22/23 History pyrimethamine 25 mg tablet 50 mg feeding tube DAILY 01/31/23 01/27/24 09/22/23 History betamethasone dipropionate 0.05 % 1 appl topical DAILY 06/04/23 01/27/24 09/22/23 History topical ointment carboxymethylcellulose sodium 0.25 2 drp ophthalmic (eye) BID 06/04/23 01/27/24 09/22/23 History % eye drops morphine 10 mg/5 mL oral solution 2.5 mg feeding tube TID 06/04/23 01/27/24 09/22/23 History sucralfate 1 gram tablet 1 g PO BID@1300,1700 06/04/23 01/27/24 09/22/23 History acetylcysteine 200 mg/mL (20 %) 30 ml inhalation Q12H PRN THICK 09/22/23 01/27/24 Unknown History solution AIRWAY SECRETION ibuprofen 600 mg tablet 600 mg PO Q8H PRN FEVER 09/22/23 01/27/24 Unknown History UNRESPONSIVE TO APAP linaclotide 145 mcg capsule 145 mcg G-tube DAILY 01/27/24 01/27/24 Unknown History (Linzess) loratadine 10 mg tablet 10 mg feeding tube DAILY 01/27/24 01/27/24 Unknown History midodrine 5 mg tablet 5 mg PO TID 01/27/24 01/27/24 Unknown History omeprazole 20 mg capsule,delayed 20 mg feeding tube BID 01/27/24 01/27/24 Unknown History release polyethylene glycol 3350 17 gram 17 g feeding tube DAILY 01/27/24 01/27/24 Unknown History oral powder packet (Miralax) simethicone 80 mg chewable tablet 80 mg feeding tube Q6H 01/27/24 01/27/24 Unknown History Physical Exam 2 Vital Signs and Narrative: Vital Signs: Last Vital Signs Temp 100.4 F 01/27/24 21:00 Pulse 103 H 01/27/24 21:00 Resp 13 01/27/24 21:00 BP 103/61 01/27/24 21:00 Pulse Ox 100 01/27/24 21:00 O2 Del Method Trach Collar 01/27/24 21:00 O2 Flow Rate 6 01/27/24 21:00 Oxygen Flow Rate 6 01/27/24 17:16 BMI result Body Mass Index 18.1 General: Awake and alert, unable to assess orientation, no acute distress. Pt nonverbal Resp: Trach in place, no respiratory distress CVS: S1, S2, RRR GI: +BS, NT, no distention Neruo: Unable to assess. Pt nonverbal and not following commands. Left arm and lower extremities chronically contracted. Extremities: No edema Results Labs 01/27/24 17:36 01/27/24 17:36 Labs: Laboratory Results - last 24 hr 01/27/24 01/27/24 01/27/24 17:01 17:36 18:15 MCV 89.0 MCH 30.0 MCHC 33.7 RDW 16.7 H Plt Count 160 MPV 10.2 Immature Gran % (Auto) 0.3 Neut % (Auto) 80.8 H Lymph % (Auto) 6.8 L [place] % (Auto) 11.8 H Eos % (Auto) 0.1 Baso % (Auto) 0.2 Lymph # (Auto) 0.7 L [place] # (Auto) 1.2 Eos # (Auto) 0.0 Baso # (Auto) 0.0 Abs Immat Gran (auto) 0.03 Absolute Neuts (auto) 7.9 Absolute Nucleated RBC 0.000 Nucleated RBC % (auto) 0.0 PT 13.2 INR 1.1 Anion Gap 15 Estim Creat Clear Calc 59.0 Estimated GFR 60 POC Glucose 99 Random Glucose 95 Lactic Acid 0.9 Calcium 9.3 Magnesium 2.2 Total Bilirubin 0.5 AST 19 ALT 16 Alkaline Phosphatase 123 H Total Protein 7.4 Albumin 3.6 Urine Color Urine Appearance Urine pH Ur Specific [place] Urine Protein Urine Glucose (UA) Urine Ketones Urine Blood Urine Nitrite Ur Leukocyte Esterase Urine RBC Urine WBC Ur Squamous Epith Cells Urine Bacteria Hyaline Casts Influenza Type A (PCR) NEGATIVE Influenza Type B (PCR) NEGATIVE RSV RNA Qual (PCR) NEGATIVE SARS-CoV-2 RNA (RT-PCR) NEGATIVE 01/27/24 19:19 MCV MCH MCHC RDW Plt Count MPV Immature Gran % (Auto) Neut % (Auto) Lymph % (Auto) [place] % (Auto) Eos % (Auto) Baso % (Auto) Lymph # (Auto) [place] # (Auto) Eos # (Auto) Baso # (Auto) Abs Immat Gran (auto) Absolute Neuts (auto) Absolute Nucleated RBC Nucleated RBC % (auto) PT INR Anion Gap Estim Creat Clear Calc Estimated GFR POC Glucose Random Glucose Lactic Acid Calcium Magnesium Total Bilirubin AST ALT Alkaline Phosphatase Total Protein Albumin Urine Color Dark Yellow Urine Appearance Turbid Urine pH 7.5 Ur Specific [place] 1.020 Urine Protein 300 (3+) H Urine Glucose (UA) Negative Urine Ketones Negative Urine Blood Large (3+) H Urine Nitrite Positive H Ur Leukocyte Esterase Large (3+) H Urine RBC >20 H Urine WBC >50 H Ur Squamous Epith Cells 3-5 Urine Bacteria 3+ Hyaline Casts 6-10 Influenza Type A (PCR) Influenza Type B (PCR) RSV RNA Qual (PCR) SARS-CoV-2 RNA (RT-PCR) Imaging Radiologist's Impressions: Impressions Chest X-Ray 01/27/24 18:40 IMPRESSION: Small right lower lobe opacity for which an infection is not excluded. 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 Pt will be admitted to the hospital for treatment and further evaluation of acute metabolic encephalopathy in the setting of UTI. Acute toxic metabolic encephalopathy in the setting of UTI Does not meet sepsis criteria: tachycardia, but no leukocytosis, fever, or tacypnea; lactic acid WNL at 0.9 Pt given IVF and started on broad-spectrum antibiotics in the ED Will treat with meropenem 1g IV q8hr due to hx of ESBL bacteremia Follow urine cultures Monitor mentation TAMMY Creatinine 1.27, up from 0.86 two days prior on 01/25/2024 Recevied 2L IVF in the ED Follow BMP Question of pneumonia CXR showed small right lower lobe opacity for which an infection is not excluded Unclear if pt has symptoms or cough Patient being covered by meropenem as above Chronic tracheostomy Tracheostomy care Deep suctioning as necessary FEED HANDLER toxoplasmosis due to immunosuppression from treatement for mantle cell lymphoma complicated by paraparesis, bed bound Continue atovaquone, leucovirin, bactrim in place of Pyrimethamine Paraparesis Airloss mattress Pt positioning q2hr Use Wedges available in the storeroom Off load all bony prominences with use of pillows, wedges, and heel boots BPH/urinary retention Patient with chronic Rubio in place Continue finasteride Seizure disorder Continue lacosamide GERD Continue famotidine Full Code Attending:?Dr. Leavitt DVT Prophylaxis: Lovenox Pt will require a hospitalization of at least two nights for treatment of?acute metabolic encephalopathy in the setting of UTI. Given pt's altered mental status and hx of ESBL bacteremia, he will require hospitalization for the administration of IV antibiotics. Quality Stroke Does the patient have a stroke diagnosis?: No VTE Prior VTE?: No VTE Risk Level:: Medical - moderate - high VTE Device Contraindication: Treatment Not Indicated VTE Drug Contraindication: N/A - Med Ordered
--- NOTE | 2024-01-27 22:41 | PHA.MEDREC ---
Pharmacy Consult ? Medication Reconciliation Pharmacy has completed the medication reconciliation. Used list from [facility] to confirm med list.
--- NOTE | 2024-01-27 23:41 | PC.NURSE ---
Dr. Leavitt informed of temp 100.3 , P 100, Res 12, BP 108/67.
[2024-01-28] VITALS: BP 118/66; PULSE 95; RESP 18; TEMP 37; O2SAT 98
[2024-01-28] MEDS: Enoxaparin Sodium 40 MG/0.4 ML SYRINGE SUBCUT ×2 (00:32→22:57)
[2024-01-28] MEDS: 0.9 % Sodium Chloride Flush 3 ML SYRINGE IVFLUSH ×3 (00:33→16:06)
[2024-01-28] MEDS: Simethicone 80 MG TAB.CHEW G-TUBE ×4 (01:52→17:57)
[2024-01-28] MEDS: Scopolamine 1.5 MG PATCH.TD.3 TRANSDERMA (01:52)
[2024-01-28 02:37] VITALS: BMI 18.1
[2024-01-28 06:22] LABS: MANUAL DIFF FLAG NO
[2024-01-28 06:33] LABS: Basophils Percent Auto 0.3 % (0-2); Eosinophils Percent Auto 0.1 % (0-4); Hematocrit 33.6 % (42.0-52.0); Hemoglobin 10.9 g/dl (14.0-18.0); Imm Gran Abs Auto 0.04 X10*3/uL (0.00-0.03); Imm Gran Pct Auto 0.5 % (0.0-0.4); Lymphocytes Percent Auto 12.4 % (20-40); Mean Corpuscular HGB Conc 32.4 g/dl (31.0-36.0); Mean Corpuscular Hemoglobin 29.7 pg (27.0-33.0); Mean Corpuscular Volume 91.6 fL (80.0-98.0); Mean Platelet Volume 10.5 fL (9.4-12.4); Monocytes Absolute Auto 0.9 X10*3/uL (0.1-1.2); Monocytes Percent Auto 12.1 % (2-11); Neutrophils Absolute Auto 5.7 x10*3/uL (2.0-8.3); Neutrophils Percent Auto 74.6 % (45-73); Platelet Count 149 X10*3/uL (160-400); Red Blood Count 3.67 X10*6/uL (4.60-5.80); Red Cell Distribution Width 16.8 % (11.0-16.0); White Blood Count 7.7 X10*3/uL (4.8-10.8)
--- NOTE | 2024-01-28 06:44 | PC.NURSE ---
Admitted pt around 0100 from the ED to rm [id number], pt alert, non verbal, Trached with O2 at 6L/min via Venturi trach mask 35%, occasional coughing spell noted with thick phlegm, suctioned as needed, trache care done, Gtube noted on the RUQ, site benign, feeding of Osmolite 1.5 started at 0230, adjusted accordingly, meds given per gt, right hip noted with unstageable PU wound bed with 100% slough covered with foam dressing.
[2024-01-28 06:48] LABS: Anion Gap 14 (12-20); Blood Urea Nitrogen 20 mg/dL (9-16); Calcium 8.6 mg/dL (8.4-10.2); Carbon Dioxide 29 mmol/L (22-29); Chloride 107 mmol/L (96-108); Creatinine Clr Calc Pharmacy 85.1; Estimated Glomerular Filt Rate > 60; Glucose Random 104 mg/dL (60-115); Potassium 3.6 mmol/L (3.3-5.1); Sodium 146 mmol/L (135-145)
[2024-01-28 07:49] VITALS: BP 94/66; PULSE 78; RESP 12; TEMP 36.4; O2SAT 98
[2024-01-28 08:02] LABS: C Reactive Protein 14.23 mg/dL (< or = 0.50)
[2024-01-28 08:26] LABS: Procalcitonin 9.29 ng/mL
[2024-01-28] MEDS: Glycopyrrolate 1 MG TABLET 0.5 MG G-TUBE (09:44)
[2024-01-28] MEDS: Atovaquone 750 MG/5 ML ORAL.SUSP G-TUBE ×2 (09:44→17:57)
[2024-01-28] MEDS: Lacosamide 100 MG TABLET 200 MG G-TUBE ×2 (09:45→20:51)
[2024-01-28] MEDS: Baclofen 10 MG TABLET 5 MG G-TUBE ×3 (09:46→17:57)
[2024-01-28] MEDS: Loratadine 10 MG TABLET G-TUBE (09:46)
[2024-01-28] MEDS: Ascorbic Acid 250 MG TABLET G-TUBE (09:46)
[2024-01-28] MEDS: Omeprazole 20 MG CAPSULE.DR PO ×2 (09:46→20:51)
[2024-01-28] MEDS: Zinc Sulfate 220 MG CAPSULE G-TUBE (09:47)
[2024-01-28] MEDS: Sennosides/Docusate Sodium TABLET 2 TAB PO ×2 (09:47→17:57)
[2024-01-28] MEDS: Midodrine HCl 5 MG TABLET PO ×3 (09:47→20:51)
[2024-01-28] MEDS: polyethylene glycoL 3350 17 GM POWD.PACK G-TUBE (09:48)
[2024-01-28] MEDS: Finasteride 5 MG TABLET PO (09:48)
[2024-01-28 09:56] VITALS: BP 107/71; PULSE 79
[2024-01-28] MEDS: Morphine Sulfate Oral Sol 10 MG/5 ML SOLUTION 5 MG G-TUBE (10:16)
[2024-01-28] MEDS: Morphine Sulfate Oral Sol 10 MG/5 ML SOLUTION 2.5 MG G-TUBE ×3 (10:17→20:52)
--- NOTE | 2024-01-28 10:23 | HO.PM.IMPN ---
Subjective Subjective Date of Service: 01/28/24 Interval History: nonverbal fever to 100.4 overnight on trach collar BCx growing GNRs Review of Systems Review of Systems: Yes Unobtainable due to mental status Physical Exam Vital Signs: Vital Signs: Last Vital Signs Temp 97.5 F 01/28/24 07:49 Pulse 79 01/28/24 09:56 Resp 12 01/28/24 07:49 BP 107/71 01/28/24 09:56 Pulse Ox 98 01/28/24 07:49 O2 Del Method Trach Collar 01/28/24 07:49 O2 Flow Rate 6 01/28/24 00:00 Oxygen Flow Rate 6 01/27/24 17:16 BMI result Body Mass Index 18.1 Gen: in no acute distress HEENT: sclera anicteric, moist mucus membranes Neck: supple, trach to collar Lungs: clear to auscultation bilaterally Heart: regular rate and rhythm, no murmurs Abd: soft, non-tender, non-distended, PEG in place Ext: no edema Skin: warm/well-perfused Neuro: alert, BLE + LUE contracted Objective Data Active Medications Acetaminophen (Acetaminophen 325 Mg Tablet) 650 mg G-TUBE Q4H PRN PRN Reason: Fever Or Pain Acetylcysteine (Acetylcysteine 20 % 6,000 Mg/30 Ml Vial) 6,000 mg INHALE Q12H PRN PRN Reason: THICK AIRWAY SECRETION Albuterol Sulfate (Albuterol Sulfate (0.083%) 2.5 Mg/3 Ml Vial.Neb) 2.5 mg INHALE Q4H PRN PRN Reason: Shortness Of Breath Or Wheezing Ascorbic Acid (Ascorbic Acid 250 Mg Tablet) 250 mg G-TUBE DAILY [facility] Last Admin: 01/28/24 09:46 Dose: 250 mg Documented By: TIFFANIE Atovaquone (Atovaquone 750 Mg/5 Ml Oral.Susp) 750 mg G-TUBE BIDWM [facility] Last Admin: 01/28/24 09:44 Dose: 750 mg Documented By: TIFFANIE Baclofen (Baclofen 10 Mg Tablet) 5 mg G-TUBE TID@0900,1300,1700 [facility] Last Admin: 01/28/24 09:46 Dose: 5 mg Documented By: TIFFANIE Bisacodyl (Bisacodyl 10 Mg Supp.Rect) 10 mg TN DAILY PRN PRN Reason: Constipation Enoxaparin Sodium (Enoxaparin Sodium 40 Mg/0.4 Ml Syringe) 40 mg SUBCUT Q24H [facility] Last Admin: 01/28/24 00:32 Dose: 40 mg Documented By: RICK Finasteride (Finasteride 5 Mg Tablet) 5 mg PO DAILY [facility] Last Admin: 01/28/24 09:48 Dose: 5 mg Documented By: TIFFANIE Glycopyrrolate (Glycopyrrolate 1 Mg Tablet) 0.5 mg G-TUBE BID [facility] Last Admin: 01/28/24 09:44 Dose: 0.5 mg Documented By: TIFFANIE Guaifenesin (Guaifenesin 200 Mg/10 Ml 10 Ml Liquid) 10 ml G-TUBE Q4H PRN PRN Reason: Cough Meropenem 1 gm/ Sodium (Chloride) 100 mls @ 200 mls/hr IV Q8H [facility] Last Infusion: 01/28/24 02:31 Dose: Infused Documented By: CASTILKori Lacosamide (Lacosamide 100 Mg Tablet) 200 mg G-TUBE BID [facility] Last Admin: 01/28/24 09:45 Dose: 200 mg Documented By: TIFFANEI Loperamide HCl (Loperamide Hcl 2 Mg Capsule) 2 mg G-TUBE Q4H PRN PRN Reason: Diarrhea Loratadine (Loratadine 10 Mg Tablet) 10 mg G-TUBE DAILY [facility] Last Admin: 01/28/24 09:46 Dose: 10 mg Documented By: TIFFANIE Lorazepam (Lorazepam 0.5 Mg Tablet) 0.5 mg G-TUBE Q6H PRN PRN Reason: Anxiety Lorazepam (Lorazepam 2 Mg/Ml Vial) 2 mg IM ONCE PRN PRN Reason: Seizures Magnesium Hydroxide (Milk Of Magnesia 30 Ml Oral.Susp) 30 ml G-TUBE DAILY PRN PRN Reason: Constipation Melatonin (Melatonin 3 Mg Tablet) 3 mg G-TUBE BEDTIME [facility] Midodrine (Midodrine Hcl 5 Mg Tablet) 5 mg PO TID [facility] Last Admin: 01/28/24 09:47 Dose: 5 mg Documented By: TIFFANIE Morphine Sulfate (Morphine Sulfate Oral Cady 10 Mg/5 Ml Solution) 2.5 mg G-TUBE TID [facility] Morphine Sulfate (Morphine Sulfate Oral Cady 10 Mg/5 Ml Solution) 5 mg G-TUBE DAILY [facility] Multivitamins/Vitamin C (Multivitamin Tablet) 1 tab PO DAILY [facility] Non-Formulary Medication (Linaclotide [Linzess]) 145 mcg G-TUBE DAILY [facility] Non-Formulary Medication (Pyrimethamine) 50 mg G-TUBE DAILY [facility] Non-Formulary Medication (Cholecalciferol (Vitamin D3)) 1,250 mcg G-TUBE Q30D [facility] Non-Formulary Medication (Leucovorin Calcium) 25 mg feeding tube BEDTIME [facility] Omeprazole (Omeprazole 20 Mg Capsule.Dr) 20 mg PO BID [facility] Last Admin: 01/28/24 09:46 Dose: 20 mg Documented By: TIFFANIE Ondansetron HCl (Ondansetron Hcl 4 Mg/2 Ml Vial) 4 mg IVPUSH Q8H PRN PRN Reason: Nausea and Vomiting Oxycodone HCl (Oxycodone Hcl Immed Release 5 Mg Tablet) 5 mg G-TUBE Q4H PRN PRN Reason: Pain (Scale Score 4-6) Polyethylene Glycol (Polyethylene Glycol 3350 17 Gm Powd.Pack) 17 gm G-TUBE DAILY [facility] Last Admin: 01/28/24 09:48 Dose: 17 gm Documented By: TIFFANIE Scopolamine (Scopolamine 1.5 Mg Patch.Td.3) 1.5 mg TRANSDERMA Q3D [facility] Last Admin: 01/28/24 01:52 Dose: 1.5 mg Documented By: BRYAN Senna/Docusate Sodium (Sennosides/Docusate Sodium Tablet) 2 tab PO BID@0900,1700 [facility] Last Admin: 01/28/24 09:47 Dose: 2 tab Documented By: TIFFANIE Simethicone (Simethicone 80 Mg Tab.Chew) 80 mg G-TUBE Q6H [facility] Last Admin: 01/28/24 06:06 Dose: 80 mg Documented By: BRYAN Sodium Biphosphate/Sodium Phosphate (Sodium Phosphate,Cataño-Dibasic 133 Ml Enema) 118 ml TN DAILY PRN PRN Reason: Constipation Sodium Chloride (0.9 % Sodium Chloride Flush 3 Ml Syringe) 3 ml IVFLUSH QSHIFT [facility] Last Admin: 01/28/24 09:42 Dose: 3 ml Documented By: TIFFANIE Sucralfate (Sucralfate 1 Gm Tablet) 1 gm PO BID@1300,1700 [facility] Tramadol HCl (Tramadol Hcl 50 Mg Tablet) 50 mg G-TUBE Q4H PRN PRN Reason: Pain (Scale Score 1-3) Zinc Sulfate (Zinc Sulfate 220 Mg Capsule) 220 mg G-TUBE DAILY [facility] Last Admin: 01/28/24 09:47 Dose: 220 mg Documented By: TIFFANIE Labs 01/28/24 05:25 01/28/24 05:25 Labs: Laboratory Results - last 24 hr 01/27/24 01/27/24 01/27/24 17:01 17:36 18:15 MCV 89.0 MCH 30.0 MCHC 33.7 RDW 16.7 H Plt Count 160 MPV 10.2 Immature Gran % (Auto) 0.3 Neut % (Auto) 80.8 H Lymph % (Auto) 6.8 L Cata[place] % (Auto) 11.8 H Eos % (Auto) 0.1 Baso % (Auto) 0.2 Lymph # (Auto) 0.7 L Cata[place] # (Auto) 1.2 Eos # (Auto) 0.0 Baso # (Auto) 0.0 Abs Immat Gran (auto) 0.03 Absolute Neuts (auto) 7.9 Absolute Nucleated RBC 0.000 Nucleated RBC % (auto) 0.0 PT 13.2 INR 1.1 Anion Gap 15 Estim Creat Clear Calc 59.0 Estimated GFR 60 POC Glucose 99 Random Glucose 95 Lactic Acid 0.9 Calcium 9.3 Magnesium 2.2 Total Bilirubin 0.5 AST 19 ALT 16 Alkaline Phosphatase 123 H C-Reactive Protein Total Protein 7.4 Albumin 3.6 Procalcitonin Urine Color Urine Appearance Urine pH Ur Specific [place] Urine Protein Urine Glucose (UA) Urine Ketones Urine Blood Urine Nitrite Ur Leukocyte Esterase Urine RBC Urine WBC Ur Squamous Epith Cells Urine Bacteria Hyaline Casts Influenza Type A (PCR) NEGATIVE Influenza Type B (PCR) NEGATIVE RSV RNA Qual (PCR) NEGATIVE SARS-CoV-2 RNA (RT-PCR) NEGATIVE 01/27/24 01/28/24 19:19 05:25 MCV 91.6 MCH 29.7 MCHC 32.4 RDW 16.8 H Plt Count 149 L MPV 10.5 Immature Gran % (Auto) 0.5 H Neut % (Auto) 74.6 H Lymph % (Auto) 12.4 L Cata[place] % (Auto) 12.1 H Eos % (Auto) 0.1 Baso % (Auto) 0.3 Lymph # (Auto) 1.0 L Cata[place] # (Auto) 0.9 Eos # (Auto) 0.0 Baso # (Auto) 0.0 Abs Immat Gran (auto) 0.04 H Absolute Neuts (auto) 5.7 Absolute Nucleated RBC 0.000 Nucleated RBC % (auto) 0.0 PT INR Anion Gap 14 Estim Creat Clear Calc 85.1 Estimated GFR > 60 POC Glucose Random Glucose 104 Lactic Acid Calcium 8.6 D Magnesium Total Bilirubin AST ALT Alkaline Phosphatase C-Reactive Protein 14.23 H Total Protein Albumin Procalcitonin 9.29 Urine Color Dark Yellow Urine Appearance Turbid Urine pH 7.5 Ur Specific [place] 1.020 Urine Protein 300 (3+) H Urine Glucose (UA) Negative Urine Ketones Negative Urine Blood Large (3+) H Urine Nitrite Positive H Ur Leukocyte Esterase Large (3+) H Urine RBC >20 H Urine WBC >50 H Ur Squamous Epith Cells 3-5 Urine Bacteria 3+ Hyaline Casts 6-10 Influenza Type A (PCR) Influenza Type B (PCR) RSV RNA Qual (PCR) SARS-CoV-2 RNA (RT-PCR) Microbiology Microbiology Results: Microbiology 01/27/24 17:36 Blood Culture - Preliminary Blood - Venous Prelim: GNR Gram Stain only Assessment and Plan (1) Acute metabolic encephalopathy: Status: Acute (2) Acute UTI: Status: Acute Plan d2 53yo M long-term resident at [facility] with chronic resp failure s/p tracheostomy + PEG, stage IV mantle cell lymphoma, [employer] toxoplasmosis due to immunosuppressino, BPH with chronic urinary catheter, seizure disorder, and hx ESBL bacteremia sent in with AMS/fever to 102 found to be septic with evidence of UTI + PNA GNR bacteremia + UTI, hx ESBL - continue meropenem, follow BCx/UCx, check CT A/P with contrast to elucidate source PNA - meropenem as above, follow BCx, trend PCT which is 9.29 today, check urinary antigens for Legionella and pneumococcus, check MRSA swab septic encephalopathy - treat infections as above TAMMY - resolved s/p IV fluids hyperNa - mild; 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; Pharmacy will try to get pt's pyrimethamine + leucovorin from his long-term facility but if unable can substitute [id number] chronic respiratory failure s/p tracheostomy + PEG - tracheostomy care, suctioning - continue PEG tube feeds - continue scopolamine patch + glycopyrrolate for secretions paraparesis - airloss mattress, turning q2h, offload all bony prominences with use of pillows, wedges, and heel boots BPH - chronic Rubio, continue finasteride seizure disorder - continue lacosamide GERD - continue PPI contractures - continue baclofen VTE ppx - LMWH dispo - eventual return to [facility] In my clinical judgment, the patient requires continued inpatient hospitalization for the following reasons: IV ABX Total time managing care of this patient today: 50 minutes. Quality Stroke Does the patient have a stroke diagnosis?: No VTE Prior VTE?: No VTE Risk Level:: Medical - moderate - high VTE Device Contraindication: Treatment Not Indicated VTE Drug Contraindication: N/A - Med Ordered
--- NOTE | 2024-01-28 12:47 | MHC.CM.PN ---
pt from [facility] where he will return when [facility] left for hcp gabriel muñoz
[2024-01-28] MEDS: Sucralfate 1 GM TABLET PO ×2 (13:03→17:57)
[2024-01-28] MEDS: Multivitamin TABLET 1 TAB PO (13:03)
--- NOTE | 2024-01-28 13:31 | HE.PHANOTE ---
RE NF medications Called [facility] for leucovorin and pyrimethamine which are both NF and used for toxoplasmosis in this immuno-compromised pt. Per S2 RN, written requests were required to be faxed to contracted pharmacy for medication release. Called contracted pharmacy to confirm. Was told that the request needed to come via fax from a [facility] provider ONLY. Called facility back and spoke to chargemaster analyst, Lucrecia. Was told that there was not provider on site. Requested to call on-call provider to complete request. [facility] pharmacy phone number provided. Updated hospitalist, Dr Lu. Recommended bactrim DS 1 tablet BID as alternative to pyrimethamine; leucovorin would not be required if changed. Note; [facility] RN states that pyrimethamine is supplied by pt. Called family; they state medication is directly mailed to pharmacy. Fax# for requests: [phone] AND [phone] Phone for contracted pharmacy: [phone]
[2024-01-28] MEDS: iohexoL 350 MG/ML 100 ML INFUS..BTL IV (14:47)
[2024-01-28 15:39] VITALS: BP 104/67; PULSE 79; RESP 12; TEMP 36.3; O2SAT 100
[2024-01-28] MEDS: vancomycin HCL 1,250 MG in 0.9 % Sodium Chloride 250 ML 166.67 MG IV (15:55)
--- NOTE | 2024-01-28 16:37 | PHA.PROG ---
Admission Date/Time: January 27, 2024 23:20 Indication: BACTEREMIA Weight in k.6 kg Adjusted body weight in K.8 Barto body weight in K.6 Obesity Dosing Indication % IBW: 18.1 Serum Creatinine - Last 168 Hours 01/27/24 01/28/24 17:36 05:25 Creatinine 1.27 0.88 Estimated CrCl and GFR - Last 168 Hours 01/27/24 01/28/24 17:36 05:25 Estim Creat Clear Calc 59.0 85.1 Estimated GFR 60 > 60 Vancomycin Loading Dose: 1250 MG Current Vancomycin Dosing Regimen: 750 MG Q12 Vancomycin Monitoring using AUC goal of 400 - 600 range with trough as surrogate marker: 433 Date and Time for next Vancomycin Level to be drawn: 01/30/24 @0500 Pharmacist Comments on Vancomycin Plan: Loading dose 20.6 mg/kg given in ed. Renal function does not seem to be stable but has been improving. Patient is immune compromised and treated for toxoplasmosis at [facility] in [place]. Continue very close monitoring. Vancomycin dosing will take advantage of [employer] as a clinical decision support tool that uses Bayesian modeling to calculate individual patient's pharmacokinetic parameters and forecast the patient's drug concentration time course with the target goal AUC 24 range of 400 - 600 mg/L/hr.
--- NOTE | 2024-01-28 19:31 | PC.NURSE ---
Feed tube on hold per attending provider since [address] imaging results, meds are okay to be given through the tube.
[2024-01-28 20:00] VITALS: BP 118/76; PULSE 82; RESP 16; TEMP 37.1; O2SAT 98
[2024-01-28] MEDS: Sulfameth/Trimet 800/160/20 ML 20 ML ORAL.SUSP G-TUBE (20:51)
[2024-01-28] MEDS: Melatonin 3 MG TABLET G-TUBE (20:51)
[2024-01-29] MEDS: Simethicone 80 MG TAB.CHEW G-TUBE ×4 (00:03→16:36)
[2024-01-29 02:47] VITALS: BP 107/75; PULSE 87; RESP 18; TEMP 36.5; O2SAT 99
[2024-01-29] MEDS: vancomycin HCL 750 MG in 0.9 % Sodium Chloride 250 ML 265 MG IV (05:46)
[2024-01-29 06:15] LABS: Hematocrit 30.8 % (42.0-52.0); Hemoglobin 10.3 g/dl (14.0-18.0); Mean Corpuscular HGB Conc 33.4 g/dl (31.0-36.0); Mean Corpuscular Hemoglobin 29.9 pg (27.0-33.0); Mean Corpuscular Volume 89.3 fL (80.0-98.0); Mean Platelet Volume 10.1 fL (9.4-12.4); Platelet Count 118 X10*3/uL (160-400); Red Blood Count 3.45 X10*6/uL (4.60-5.80); Red Cell Distribution Width 16.5 % (11.0-16.0); White Blood Count 5.3 X10*3/uL (4.8-10.8)
[2024-01-29 06:34] LABS: Anion Gap 13 (12-20); Blood Urea Nitrogen 16 mg/dL (9-16); Calcium 8.8 mg/dL (8.4-10.2); Carbon Dioxide 27 mmol/L (22-29); Chloride 108 mmol/L (96-108); Creatinine Clr Calc Pharmacy 88.1; Estimated Glomerular Filt Rate > 60; Glucose Random 81 mg/dL (60-115); Potassium 3.6 mmol/L (3.3-5.1); Sodium 144 mmol/L (135-145)
[2024-01-29] MEDS: 0.9 % Sodium Chloride Flush 3 ML SYRINGE IVFLUSH ×2 (07:15→16:57)
[2024-01-29 07:46] VITALS: BP 103/65; PULSE 87; RESP 12; TEMP 36.8; O2SAT 100
[2024-01-29] MEDS: Sennosides/Docusate Sodium TABLET 2 TAB PO ×2 (09:24→16:36)
[2024-01-29] MEDS: Atovaquone 750 MG/5 ML ORAL.SUSP G-TUBE ×2 (09:24→16:36)
[2024-01-29] MEDS: polyethylene glycoL 3350 17 GM POWD.PACK G-TUBE (09:24)
[2024-01-29] MEDS: Multivitamin TABLET 1 TAB PO (09:24)
[2024-01-29] MEDS: Omeprazole 20 MG CAPSULE.DR PO ×2 (09:24→22:05)
[2024-01-29] MEDS: Ascorbic Acid 250 MG TABLET G-TUBE (09:24)
[2024-01-29] MEDS: Lacosamide 100 MG TABLET 200 MG G-TUBE ×2 (09:25→22:07)
[2024-01-29] MEDS: Midodrine HCl 5 MG TABLET PO ×3 (09:25→22:07)
[2024-01-29] MEDS: Baclofen 10 MG TABLET 5 MG G-TUBE ×3 (09:25→16:37)
[2024-01-29] MEDS: Zinc Sulfate 220 MG CAPSULE G-TUBE (09:25)
[2024-01-29] MEDS: Loratadine 10 MG TABLET G-TUBE (09:25)
[2024-01-29] MEDS: Morphine Sulfate Oral Sol 10 MG/5 ML SOLUTION 2.5 MG G-TUBE ×3 (09:26→22:07)
[2024-01-29] MEDS: Finasteride 5 MG TABLET PO (09:26)
[2024-01-29] MEDS: Morphine Sulfate Oral Sol 10 MG/5 ML SOLUTION 5 MG G-TUBE (09:29)
--- NOTE | 2024-01-29 09:33 | P.CONGS_ITS ---
History of Present Illness Consult details Consult date: 01/29/24 Narrative: 53-year-old male with medical problems including stage IV mantle cell lymphoma, history of toxoplasmosis, chronic respiratory failure, recurrent UTIs, admitted via the ER 2 days ago because of fever at the long-term [facility]. He was again diagnosed to have urosepsis. In view of his fever and Gram- negative rods on cultures, a CT scan of the abdomen was done yesterday and this showed some diffuse dilatation of the colon. Keira syndrome was 1 of the differential so I was consulted for this It does not seem to have any abdominal pain however. He has a PEG tube and a tracheostomy tube. He undergoes catheterization for his urine. He is bed-bound and is not communicative Review of Systems 2 Review of Systems: Yes Unobtainable due to mental condition and Unobtainable due to mental status Constitutional: Constitutional: Reports fever(s) PMFSH Past Medical History Medical History Tracheostomy dependent Mantle cell lymphoma Aspiration into airway Stage IV decubitus ulcer Osteomyelitis of pelvis Anemia Toxoplasmosis Encephalopathy [employer] lymphoma Rectal bleeding H/O: RCT (rotator cuff tear) Depression Appendicitis Chronic pain Kidney stone Mantle cell lymphoma Family History Family History Mother COPD (chronic obstructive pulmonary disease) Sister Colon cancer Surgical History Surgical History History of appendectomy Social History Social History 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 Housing: Senior Care Housing Other:: [facility] Do you presently have visiting nurse or other home services: No Unable to assess alcohol history related to: Unable to respond Alcohol intake: unknown Patient Tobacco Use Status: Never used Tobacco Second Hand Smoke Exposure: No Substance Use Type: Unknown Advance Directives Date on File: 06/04/23 service: No Current occupational status: unemployed Meds Allergies Allergy/AdvReac Type Severity Reaction Status Date / Time cyclobenzaprine [Flexeril] Allergy Unknown Palpitation Verified 01/27/24 17:28 s Active Medications: Current Medications Acetaminophen (Acetaminophen 325 Mg Tablet) 650 mg G-TUBE Q4H PRN PRN Reason: Fever Or Pain Acetylcysteine (Acetylcysteine 20 % 6,000 Mg/30 Ml Vial) 6,000 mg INHALE Q12H PRN PRN Reason: THICK AIRWAY SECRETION Albuterol Sulfate (Albuterol Sulfate (0.083%) 2.5 Mg/3 Ml Vial.Neb) 2.5 mg INHALE Q4H PRN PRN Reason: Shortness Of Breath Or Wheezing Ascorbic Acid (Ascorbic Acid 250 Mg Tablet) 250 mg G-TUBE DAILY [facility] Last Admin: 01/28/24 09:46 Dose: 250 mg Atovaquone (Atovaquone 750 Mg/5 Ml Oral.Susp) 750 mg G-TUBE BIDWM [facility] Last Admin: 01/28/24 17:57 Dose: 750 mg Baclofen (Baclofen 10 Mg Tablet) 5 mg G-TUBE TID@0900,1300,1700 [facility] Last Admin: 01/28/24 17:57 Dose: 5 mg Bisacodyl (Bisacodyl 10 Mg Supp.Rect) 10 mg [place] DAILY PRN PRN Reason: Constipation Enoxaparin Sodium (Enoxaparin Sodium 40 Mg/0.4 Ml Syringe) 40 mg SUBCUT Q24H [facility] Last Admin: 01/28/24 22:57 Dose: 40 mg Finasteride (Finasteride 5 Mg Tablet) 5 mg PO DAILY [facility] Last Admin: 01/28/24 09:48 Dose: 5 mg Glycopyrrolate (Glycopyrrolate 1 Mg Tablet) 0.5 mg G-TUBE BID [facility] Last Admin: 01/28/24 09:44 Dose: 0.5 mg Guaifenesin (Guaifenesin 200 Mg/10 Ml 10 Ml Liquid) 10 ml G-TUBE Q4H PRN PRN Reason: Cough Meropenem 1 gm/ Sodium (Chloride) 100 mls @ 200 mls/hr IV Q8H [facility] Last Infusion: 01/29/24 02:00 Dose: Infused Vancomycin HCl 750 mg/ Sodium (Chloride) 265 mls @ 265 mls/hr IV Q12H [facility] Last Infusion: 01/29/24 07:16 Dose: Infused Lacosamide (Lacosamide 100 Mg Tablet) 200 mg G-TUBE BID [facility] Last Admin: 01/28/24 20:51 Dose: 200 mg Loperamide HCl (Loperamide Hcl 2 Mg Capsule) 2 mg G-TUBE Q4H PRN PRN Reason: Diarrhea Loratadine (Loratadine 10 Mg Tablet) 10 mg G-TUBE DAILY [facility] Last Admin: 01/28/24 09:46 Dose: 10 mg Lorazepam (Lorazepam 0.5 Mg Tablet) 0.5 mg G-TUBE Q6H PRN PRN Reason: Anxiety Lorazepam (Lorazepam 2 Mg/Ml Vial) 2 mg IM ONCE PRN PRN Reason: Seizures Magnesium Hydroxide (Milk Of Magnesia 30 Ml Oral.Susp) 30 ml G-TUBE DAILY PRN PRN Reason: Constipation Melatonin (Melatonin 3 Mg Tablet) 3 mg G-TUBE BEDTIME [facility] Last Admin: 01/28/24 20:51 Dose: 3 mg Midodrine (Midodrine Hcl 5 Mg Tablet) 5 mg PO TID [facility] Last Admin: 01/28/24 20:51 Dose: 5 mg Morphine Sulfate (Morphine Sulfate Oral Cady 10 Mg/5 Ml Solution) 2.5 mg G-TUBE TID [facility] Last Admin: 01/28/24 20:52 Dose: 2.5 mg Morphine Sulfate (Morphine Sulfate Oral Cady 10 Mg/5 Ml Solution) 5 mg G-TUBE DAILY [facility] Last Admin: 01/28/24 10:16 Dose: 5 mg Multivitamins/Vitamin C (Multivitamin Tablet) 1 tab PO DAILY [facility] Last Admin: 01/28/24 13:03 Dose: 1 tab Non-Formulary Medication (Linaclotide [Linzess]) 145 mcg G-TUBE DAILY [facility] Non-Formulary Medication (Pyrimethamine) 50 mg G-TUBE DAILY [facility] Non-Formulary Medication (Cholecalciferol (Vitamin D3)) 1,250 mcg G-TUBE Q30D [facility] Non-Formulary Medication (Leucovorin Calcium) 25 mg feeding tube BEDTIME [facility] Omeprazole (Omeprazole 20 Mg Capsule.Dr) 20 mg PO BID [facility] Last Admin: 01/28/24 20:51 Dose: 20 mg Ondansetron HCl (Ondansetron Hcl 4 Mg/2 Ml Vial) 4 mg IVPUSH Q8H PRN PRN Reason: Nausea and Vomiting Oxycodone HCl (Oxycodone Hcl Immed Release 5 Mg Tablet) 5 mg G-TUBE Q4H PRN PRN Reason: Pain (Scale Score 4-6) Pharmacy Consult (Consult Rx Vancomycin Dosing) 1 each MISCELLANE DAILY PRN PRN Reason: Consult order Polyethylene Glycol (Polyethylene Glycol 3350 17 Gm Powd.Pack) 17 gm G-TUBE DAILY [facility] Last Admin: 01/28/24 09:48 Dose: 17 gm Scopolamine (Scopolamine 1.5 Mg Patch.Td.3) 1.5 mg TRANSDERMA Q3D [facility] Last Admin: 01/28/24 01:52 Dose: 1.5 mg Senna/Docusate Sodium (Sennosides/Docusate Sodium Tablet) 2 tab PO BID@0900,1700 [facility] Last Admin: 01/28/24 17:57 Dose: 2 tab Simethicone (Simethicone 80 Mg Tab.Chew) 80 mg G-TUBE Q6H [facility] Last Admin: 01/29/24 05:46 Dose: 80 mg Sodium Biphosphate/Sodium Phosphate (Sodium Phosphate,Deuel-Dibasic 133 Ml Enema) 118 ml [place] DAILY PRN PRN Reason: Constipation Sodium Chloride (0.9 % Sodium Chloride Flush 3 Ml Syringe) 3 ml IVFLUSH QSHIFT [facility] Last Admin: 01/29/24 07:15 Dose: 3 ml Sucralfate (Sucralfate 1 Gm Tablet) 1 gm PO BID@1300,1700 [facility] Last Admin: 01/28/24 17:57 Dose: 1 gm Tramadol HCl (Tramadol Hcl 50 Mg Tablet) 50 mg G-TUBE Q4H PRN PRN Reason: Pain (Scale Score 1-3) Trimethoprim/Sulfamethoxazole (Sulfameth/Trimet 800/160/20 Ml 20 Ml Oral.Susp) 20 ml G-TUBE BID [facility] Last Admin: 01/28/24 20:51 Dose: 20 ml Zinc Sulfate (Zinc Sulfate 220 Mg Capsule) 220 mg G-TUBE DAILY [facility] Last Admin: 01/28/24 09:47 Dose: 220 mg Home Medications ?Medication ?Instructions ?Recorded ?Confirmed ?Last Taken ?Type acetaminophen 325 mg tablet 650 mg feeding tube Q4H PRN Fever 01/02/23 01/27/24 09/22/23 History Or Pain albuterol sulfate 2.5 mg/3 mL 2.5 mg inhalation Q4H PRN 01/02/23 01/27/24 Unknown History (0.083 %) solution for nebulization Shortness Of Breath Or Wheezing ascorbic acid (vitamin C) 250 mg 250 mg feeding tube DAILY 01/02/23 01/27/24 09/22/23 History tablet atovaquone 750 mg/5 mL oral 750 mg feeding tube BIDWM 01/02/23 01/27/24 09/22/23 History suspension baclofen 10 mg tablet 5 mg feeding tube 01/02/23 01/27/24 09/22/23 History TID@0900,1300,1700 bisacodyl 10 mg rectal suppository 10 mg [place] DAILY PRN Constipation 01/02/23 01/27/24 Unknown History cholecalciferol (vitamin D3) 1,250 1,250 mcg feeding tube QMONTH 01/02/23 01/27/24 08/29/23 History mcg (50,000 unit) tablet finasteride 5 mg tablet 5 mg feeding tube DAILY 01/02/23 01/27/24 09/22/23 History glycopyrrolate 1 mg tablet 0.5 mg feeding tube BID 01/02/23 01/27/24 09/22/23 History guaifenesin 200 mg/5 mL oral liquid 200 mg feeding tube Q4H PRN Cough 01/02/23 01/27/24 Unknown History lacosamide 200 mg tablet 200 mg feeding tube BID 01/02/23 01/27/24 09/22/23 History leucovorin calcium 25 mg tablet 25 mg feeding tube BEDTIME 01/02/23 01/27/24 09/22/23 History loperamide 2 mg capsule 2 mg feeding tube Q4H PRN Diarrhea 01/02/23 01/27/24 Unknown History lorazepam 0.5 mg tablet 0.5 mg feeding tube Q6H PRN Anxiety 01/02/23 01/27/24 09/22/23 History lorazepam 2 mg/mL injection 2 mg IM ONCE PRN Seizures 01/02/23 01/27/24 Unknown History solution magnesium hydroxide 400 mg/5 mL 30 ml feeding tube DAILY PRN 01/02/23 01/27/24 Unknown History oral suspension (Milk of Magnesia) Constipation melatonin 3 mg tablet 3 mg feeding tube BEDTIME 01/02/23 01/27/24 09/22/23 History morphine 10 mg/5 mL oral solution 5 mg feeding tube DAILY 01/02/23 01/27/24 09/22/23 History ondansetron HCl 2 mg/mL 4 mg IM Q4H PRN Nausea And Vomiting 01/02/23 01/27/24 Unknown History intravenous solution ondansetron HCl 4 mg tablet 4 mg feeding tube DAILY 01/02/23 01/27/24 Unknown History oxycodone 5 mg tablet 5 mg feeding tube Q4H PRN Pain 01/02/23 01/27/24 09/22/23 10:02 History (Scale Score 4-6) scopolamine base 1 mg over 3 days 1 patch transdermal Q3D 01/02/23 01/27/24 09/22/23 History transdermal patch sennosides 8.6 mg-docusate sodium 2 tab-cap PO BID@0900,1700 01/02/23 01/27/24 09/22/23 History 50 mg tablet (Senna with Docusate Constipation Sodium) sodium phosphates 19 gram-7 118 ml [place] DAILY PRN Constipation 01/02/23 01/27/24 Unknown History gram/118 mL enema (Fleet Enema) tramadol 50 mg tablet 50 mg feeding tube Q4H PRN Pain 01/02/23 01/27/24 Unknown History (Scale Score 1-3) zinc sulfate 50 mg zinc (220 mg) 50 mg feeding tube DAILY 01/02/23 01/27/24 09/22/23 History tablet multivitamin 1 tab feeding tube DAILY 01/31/23 01/27/24 09/22/23 History pyrimethamine 25 mg tablet 50 mg feeding tube DAILY 01/31/23 01/27/24 09/22/23 History betamethasone dipropionate 0.05 % 1 appl topical DAILY 06/04/23 01/27/24 09/22/23 History topical ointment carboxymethylcellulose sodium 0.25 2 drp ophthalmic (eye) BID 06/04/23 01/27/24 09/22/23 History % eye drops morphine 10 mg/5 mL oral solution 2.5 mg feeding tube TID 06/04/23 01/27/24 09/22/23 History sucralfate 1 gram tablet 1 g PO BID@1300,1700 06/04/23 01/27/24 09/22/23 History acetylcysteine 200 mg/mL (20 %) 30 ml inhalation Q12H PRN THICK 09/22/23 01/27/24 Unknown History solution AIRWAY SECRETION ibuprofen 600 mg tablet 600 mg PO Q8H PRN FEVER 09/22/23 01/27/24 Unknown History UNRESPONSIVE TO APAP linaclotide 145 mcg capsule 145 mcg G-tube DAILY 01/27/24 01/27/24 Unknown History (Linzess) loratadine 10 mg tablet 10 mg feeding tube DAILY 01/27/24 01/27/24 Unknown History midodrine 5 mg tablet 5 mg PO TID 01/27/24 01/27/24 Unknown History omeprazole 20 mg capsule,delayed 20 mg feeding tube BID 01/27/24 01/27/24 Unknown History release polyethylene glycol 3350 17 gram 17 g feeding tube DAILY 01/27/24 01/27/24 Unknown History oral powder packet (Miralax) simethicone 80 mg chewable tablet 80 mg feeding tube Q6H 01/27/24 01/27/24 Unknown History Physical Exam 2 Vital Signs: Vital Signs: Last Vital Signs Temp 98.2 F 01/29/24 07:46 Pulse 87 01/29/24 07:46 Resp 12 01/29/24 07:46 BP 103/65 01/29/24 07:46 Pulse Ox 100 01/29/24 07:46 O2 Del Method Trach Collar 01/29/24 07:46 O2 Flow Rate 6 01/29/24 07:46 FiO2 100 01/29/24 07:46 Oxygen Flow Rate 6 01/27/24 17:16 BMI result Body Mass Index 18.1 Const: Other: Eyes open, not communicative General: comfortable Resp: Other: Some shortness of breath, has a tracheostomy Cardio: Rate: regular rate GI: Inspection: No distended Palpation (GI): Soft to palpation, not firm, nontender and no guarding Results Labs 01/31/24 05:29 02/01/24 05:25 Labs: Abnormal lab results 01/29/24 Range/Units 05:08 RBC 3.45 L (4.60-5.80) X10*6/uL Hgb 10.3 L (14.0-18.0) g/dl Hct 30.8 L (42.0-52.0) % RDW 16.5 H (11.0-16.0) % Plt Count 118 L (160-400) X10*3/uL Short CBC 01/29/24 Range/Units 05:08 WBC 5.3 (4.8-10.8) X10*3/uL Hgb 10.3 L (14.0-18.0) g/dl Hct 30.8 L (42.0-52.0) % Plt Count 118 L (160-400) X10*3/uL BMP 01/29/24 05:08 Sodium 144 Potassium 3.6 Chloride 108 Carbon Dioxide 27 BUN 16 Creatinine 0.85 Calcium 8.8 Urine 01/27/24 Range/Units 19:19 Urine Color Dark Yellow Urine Appearance Turbid Urine pH 7.5 (5.0-9.0) Ur Specific Mccormick 1.020 (1.005-1.025) Urine Protein 300 (3+) H (Neg-Trace) mg/dL Urine Glucose (UA) Negative (Negative) mg/dL All other labs normal. Imaging Abdomen CT scan report/results: report reviewed and image reviewed CT scan - pelvis: report reviewed and image reviewed Additional studies: Laboratory Results WBC 5.3 X10*3/uL (4.8-10.8) 01/29/24 05:08 RBC 3.45 X10*6/uL (4.60-5.80) L 01/29/24 05:08 Hgb 10.3 g/dl (14.0-18.0) L 01/29/24 05:08 Hct 30.8 % (42.0-52.0) L 01/29/24 05:08 MCV 89.3 fL (80.0-98.0) 01/29/24 05:08 MCH 29.9 pg (27.0-33.0) 01/29/24 05:08 MCHC 33.4 g/dl (31.0-36.0) 01/29/24 05:08 RDW 16.5 % (11.0-16.0) H 01/29/24 05:08 Plt Count 118 X10*3/uL (160-400) L 01/29/24 05:08 MPV 10.1 fL (9.4-12.4) 01/29/24 05:08 Immature Gran % (Auto) 0.5 % (0.0-0.4) H 01/28/24 05:25 Neut % (Auto) 74.6 % (45-73) H 01/28/24 05:25 Lymph % (Auto) 12.4 % (20-40) L 01/28/24 05:25 Deuel % (Auto) 12.1 % (2-11) H 01/28/24 05:25 Eos % (Auto) 0.1 % (0-4) 01/28/24 05:25 Baso % (Auto) 0.3 % (0-2) 01/28/24 05:25 Lymph # (Auto) 1.0 X10*3/uL (1.2-4.9) L 01/28/24 05:25 Deuel # (Auto) 0.9 X10*3/uL (0.1-1.2) 01/28/24 05:25 Eos # (Auto) 0.0 X10*3/uL (0.0-0.4) 01/28/24 05:25 Baso # (Auto) 0.0 X10*3/uL (0.0-0.2) 01/28/24 05:25 Abs Immat Gran (auto) 0.04 X10*3/uL (0.00-0.03) H 01/28/24 05:25 Absolute Neuts (auto) 5.7 x10*3/uL (2.0-8.3) 01/28/24 05:25 Absolute Nucleated RBC 0.000 X10*3/uL (0.0-0.012) 01/29/24 05:08 Nucleated RBC % (auto) 0.0 /100WBC (0.0-0.2) 01/29/24 05:08 PT 13.2 SEC (11.1-13.3) 01/27/24 17:36 INR 1.1 (0.9-1.1) 01/27/24 17:36 Sodium 144 mmol/L (135-145) 01/29/24 05:08 Potassium 3.6 mmol/L (3.3-5.1) 01/29/24 05:08 Chloride 108 mmol/L (96-108) 01/29/24 05:08 Carbon Dioxide 27 mmol/L (22-29) 01/29/24 05:08 Anion Gap 13 (12-20) 01/29/24 05:08 BUN 16 mg/dL (9-16) 01/29/24 05:08 Creatinine 0.85 mg/dL (0.5-1.4) 01/29/24 05:08 Estim Creat Clear Calc 88.1 01/29/24 05:08 Estimated GFR > 60 01/29/24 05:08 POC Glucose 99 mg/dL (60-115) 01/27/24 17:01 Random Glucose 81 mg/dL (60-115) 01/29/24 05:08 Lactic Acid 0.9 mmol/L (0.5-2.0) 01/27/24 18:15 Calcium 8.8 mg/dL (8.4-10.2) 01/29/24 05:08 Magnesium 2.0 mg/dL (1.6-2.6) 01/29/24 05:08 Total Bilirubin 0.5 mg/dL (0.0-1.0) 01/27/24 17:36 AST 19 U/L (5-37) 01/27/24 17:36 ALT 16 U/L (0-40) 01/27/24 17:36 Alkaline Phosphatase 123 U/L (39-117) H 01/27/24 17:36 C-Reactive Protein 14.23 mg/dL (< or = 0.50) H 01/28/24 05:25 Total Protein 7.4 g/dL (6.5-8.0) 01/27/24 17:36 Albumin 3.6 g/dL (3.5-5.0) 01/27/24 17:36 Procalcitonin 9.29 ng/mL 01/28/24 05:25 Urine Color Dark Yellow 01/27/24 19:19 Urine Appearance Turbid 01/27/24 19:19 Urine pH 7.5 (5.0-9.0) 01/27/24 19:19 Ur Specific Mccormick 1.020 (1.005-1.025) 01/27/24 19:19 Urine Protein 300 (3+) mg/dL (Neg-Trace) H 01/27/24 19:19 Urine Glucose (UA) Negative mg/dL (Negative) 01/27/24 19:19 Urine Ketones Negative mg/dL (Negative) 01/27/24 19:19 Urine Blood Large (3+) (Negative) H 01/27/24 19:19 Urine Nitrite Positive (Negative) H 01/27/24 19:19 Ur Leukocyte Esterase Large (3+) (Negative) H 01/27/24 19:19 Urine RBC >20 /HPF (0-2) H 01/27/24 19:19 Urine WBC >50 /HPF (0-5) H 01/27/24 19:19 Ur Squamous Epith Cells 3-5 /HPF (0-2) 01/27/24 19:19 Urine Bacteria 3+ (None Seen) 01/27/24 19:19 Hyaline Casts 6-10 /LPF (0-2) 01/27/24 19:19 Influenza Type A (PCR) NEGATIVE (Negative) 01/27/24 17:36 Influenza Type B (PCR) NEGATIVE (Negative) 01/27/24 17:36 RSV RNA Qual (PCR) NEGATIVE (Negative) 01/27/24 17:36 SARS-CoV-2 RNA (RT-PCR) NEGATIVE (Negative) 01/27/24 17:36 Impressions Chest X-Ray 01/27/24 18:40 IMPRESSION: Small right lower lobe opacity for which an infection is not excluded. Abdomen/Pelvis CT 01/28/24 14:51 IMPRESSION: Evaluation is limited due to motion and overlying upper extremities. 1. Diffuse prominent colonic and rectal distention with high density fluid content, nonspecific could be related with diarrhea, colonic pseudoobstruction or impaired intestinal motility of uncertain etiology leading to ileus. A few areas of higher density (similar to contrast) are noted layering in several regions of the colon and rectum which are indeterminate, could represent oral contrast, ingested material or potentially blood products. Evaluation of GI bleed is limited in the absence of a noncontrast or delayed venous phase. 2. Patchy appearance of the lower right kidney and to a lesser extent upper left kidney with equivocal mild diffuse urinary bladder wall thickening that could indicate acute pyelonephritis and urinary tract infection. 3. Nonspecific very subtle heterogeneity of the left lateral pectoralis major musculature. Correlate with physical examination, and if indicated consider targeted evaluation with ultrasound. 4. Smaller decubitus ulcers in the right gluteal region with decreased soft tissue stranding. Stable minimal cortical irregularity of the underlying bone in which chronic osteomyelitis cannot be excluded. 5. Trace amount of left-sided pleural fluid with minimal compressive atelectasis. Assessment and Plan (1) Acute UTI: Status: Acute He has had recurrent UTIs . An abdominal CT done showed diffuse dilatation of the colon. However, exam is very benign at this time. The abdomen is soft and not distended. There has no obvious tenderness. He has no guarding or rebound He may have had some ileus from his urosepsis. I believe it may be safe to restart him on tube feeds slowly and advance as tolerated. He currently has multiple medical problems and is on IV antibiotics for UTI. I will follow along while he has in the hospital. Procedures Date of Service Date of Service: 02/02/24
--- NOTE | 2024-01-29 09:42 | P.PNIM_ITS ---
Subjective Subjective Date of Service: 01/29/24 Interval History: non-verbal but does not appear to be in any distress; copious scretions 1 small BM yesterday Review of Systems Review of Systems: Yes Unobtainable due to mental status Physical Exam 2 Vital Signs: Vital Signs: Last Vital Signs Temp 98.2 F 01/29/24 07:46 Pulse 87 01/29/24 07:46 Resp 12 01/29/24 07:46 BP 103/65 01/29/24 07:46 Pulse Ox 100 01/29/24 07:46 O2 Del Method Trach Collar 01/29/24 07:46 O2 Flow Rate 6 01/29/24 07:46 FiO2 100 01/29/24 07:46 Oxygen Flow Rate 6 01/27/24 17:16 BMI result Body Mass Index 18.1 Gen: in no acute distress HEENT: sclera anicteric, moist mucus membranes Neck: supple, trach to collar Lungs: clear to auscultation bilaterally Heart: regular rate and rhythm, no murmurs Abd: soft, non-tender, non-distended, PEG in place, normal bowel sounds Ext: no edema Skin: warm/well-perfused Neuro: alert, BLE + LUE contracted Objective Data Active Medications Acetaminophen (Acetaminophen 325 Mg Tablet) 650 mg G-TUBE Q4H PRN PRN Reason: Fever Or Pain Acetylcysteine (Acetylcysteine 20 % 6,000 Mg/30 Ml Vial) 6,000 mg INHALE Q12H PRN PRN Reason: THICK [employer]WAY SECRETION Albuterol Sulfate (Albuterol Sulfate (0.083%) 2.5 Mg/3 Ml Vial.Neb) 2.5 mg INHALE Q4H PRN PRN Reason: Shortness Of Breath Or Wheezing Ascorbic Acid (Ascorbic Acid 250 Mg Tablet) 250 mg G-TUBE DAILY [facility] Last Admin: 01/28/24 09:46 Dose: 250 mg Documented By: TIFFANIE Atovaquone (Atovaquone 750 Mg/5 Ml Oral.Susp) 750 mg G-TUBE BIDWM [facility] Last Admin: 01/28/24 17:57 Dose: 750 mg Documented By: TIFFANIE Baclofen (Baclofen 10 Mg Tablet) 5 mg G-TUBE TID@0900,1300,1700 [facility] Last Admin: 01/28/24 17:57 Dose: 5 mg Documented By: TIFFANIE Bisacodyl (Bisacodyl 10 Mg Supp.Rect) 10 mg [place] DAILY PRN PRN Reason: Constipation Enoxaparin Sodium (Enoxaparin Sodium 40 Mg/0.4 Ml Syringe) 40 mg SUBCUT Q24H [facility] Last Admin: 01/28/24 22:57 Dose: 40 mg Documented By: BRYAN Finasteride (Finasteride 5 Mg Tablet) 5 mg PO DAILY [facility] Last Admin: 01/28/24 09:48 Dose: 5 mg Documented By: TIFFANIE Glycopyrrolate (Glycopyrrolate 1 Mg Tablet) 0.5 mg G-TUBE BID [facility] Last Admin: 01/28/24 09:44 Dose: 0.5 mg Documented By: TIFFANIE Guaifenesin (Guaifenesin 200 Mg/10 Ml 10 Ml Liquid) 10 ml G-TUBE Q4H PRN PRN Reason: Cough Meropenem 1 gm/ Sodium (Chloride) 100 mls @ 200 mls/hr IV Q8H [facility] Last Infusion: 01/29/24 02:00 Dose: Infused Documented By: BRYAN Vancomycin HCl 750 mg/ Sodium (Chloride) 265 mls @ 265 mls/hr IV Q12H [facility] Last Infusion: 01/29/24 07:16 Dose: Infused Documented By: TIFFANIE Lacosamide (Lacosamide 100 Mg Tablet) 200 mg G-TUBE BID [facility] Last Admin: 01/28/24 20:51 Dose: 200 mg Documented By: BRYAN Loperamide HCl (Loperamide Hcl 2 Mg Capsule) 2 mg G-TUBE Q4H PRN PRN Reason: Diarrhea Loratadine (Loratadine 10 Mg Tablet) 10 mg G-TUBE DAILY [facility] Last Admin: 01/28/24 09:46 Dose: 10 mg Documented By: TIFFANIE Lorazepam (Lorazepam 0.5 Mg Tablet) 0.5 mg G-TUBE Q6H PRN PRN Reason: Anxiety Lorazepam (Lorazepam 2 Mg/Ml Vial) 2 mg IM ONCE PRN PRN Reason: Seizures Magnesium Hydroxide (Milk Of Magnesia 30 Ml Oral.Susp) 30 ml G-TUBE DAILY PRN PRN Reason: Constipation Melatonin (Melatonin 3 Mg Tablet) 3 mg G-TUBE BEDTIME [facility] Last Admin: 01/28/24 20:51 Dose: 3 mg Documented By: BRYAN Midodrine (Midodrine Hcl 5 Mg Tablet) 5 mg PO TID [facility] Last Admin: 01/28/24 20:51 Dose: 5 mg Documented By: BRAYN Morphine Sulfate (Morphine Sulfate Oral Cady 10 Mg/5 Ml Solution) 2.5 mg G-TUBE TID [facility] Last Admin: 01/28/24 20:52 Dose: 2.5 mg Documented By: BRYAN Morphine Sulfate (Morphine Sulfate Oral Cady 10 Mg/5 Ml Solution) 5 mg G-TUBE DAILY [facility] Last Admin: 01/28/24 10:16 Dose: 5 mg Documented By: TIFFANIE Multivitamins/Vitamin C (Multivitamin Tablet) 1 tab PO DAILY [facility] Last Admin: 01/28/24 13:03 Dose: 1 tab Documented By: TIFFANIE Non-Formulary Medication (Linaclotide [Linzess]) 145 mcg G-TUBE DAILY [facility] Non-Formulary Medication (Pyrimethamine) 50 mg G-TUBE DAILY [facility] Non-Formulary Medication (Cholecalciferol (Vitamin D3)) 1,250 mcg G-TUBE Q30D [facility] Non-Formulary Medication (Leucovorin Calcium) 25 mg feeding tube BEDTIME [facility] Omeprazole (Omeprazole 20 Mg Capsule.Dr) 20 mg PO BID [facility] Last Admin: 01/28/24 20:51 Dose: 20 mg Documented By: BRYAN Ondansetron HCl (Ondansetron Hcl 4 Mg/2 Ml Vial) 4 mg IVPUSH Q8H PRN PRN Reason: Nausea and Vomiting Oxycodone HCl (Oxycodone Hcl Immed Release 5 Mg Tablet) 5 mg G-TUBE Q4H PRN PRN Reason: Pain (Scale Score 4-6) Pharmacy Consult (Consult Rx Vancomycin Dosing) 1 each MISCELLANE DAILY PRN PRN Reason: Consult order Polyethylene Glycol (Polyethylene Glycol 3350 17 Gm Powd.Pack) 17 gm G-TUBE DAILY [facility] Last Admin: 01/28/24 09:48 Dose: 17 gm Documented By: TIFFANIE Scopolamine (Scopolamine 1.5 Mg Patch.Td.3) 1.5 mg TRANSDERMA Q3D [facility] Last Admin: 01/28/24 01:52 Dose: 1.5 mg Documented By: BRYAN Senna/Docusate Sodium (Sennosides/Docusate Sodium Tablet) 2 tab PO BID@0900,1700 [facility] Last Admin: 01/28/24 17:57 Dose: 2 tab Documented By: TIFFANIE Simethicone (Simethicone 80 Mg Tab.Chew) 80 mg G-TUBE Q6H [facility] Last Admin: 01/29/24 05:46 Dose: 80 mg Documented By: BRYAN Sodium Biphosphate/Sodium Phosphate (Sodium Phosphate,[place]-Dibasic 133 Ml Enema) 118 ml [place] DAILY PRN PRN Reason: Constipation Sodium Chloride (0.9 % Sodium Chloride Flush 3 Ml Syringe) 3 ml IVFLUSH QSHIFT [facility] Last Admin: 01/29/24 07:15 Dose: 3 ml Documented By: TIFFANIE Sucralfate (Sucralfate 1 Gm Tablet) 1 gm PO BID@1300,1700 [facility] Last Admin: 01/28/24 17:57 Dose: 1 gm Documented By: TIFFANIE Tramadol HCl (Tramadol Hcl 50 Mg Tablet) 50 mg G-TUBE Q4H PRN PRN Reason: Pain (Scale Score 1-3) Trimethoprim/Sulfamethoxazole (Sulfameth/Trimet 800/160/20 Ml 20 Ml Oral.Susp) 20 ml G-TUBE BID [facility] Last Admin: 01/28/24 20:51 Dose: 20 ml Documented By: BRYAN Zinc Sulfate (Zinc Sulfate 220 Mg Capsule) 220 mg G-TUBE DAILY [facility] Last Admin: 01/28/24 09:47 Dose: 220 mg Documented By: TIFFANIE Labs 01/29/24 05:08 01/29/24 05:08 Labs: Laboratory Results - last 24 hr 01/29/24 05:08 MCV 89.3 MCH 29.9 MCHC 33.4 RDW 16.5 H Plt Count 118 L MPV 10.1 Absolute Nucleated RBC 0.000 Nucleated RBC % (auto) 0.0 Anion Gap 13 Estim Creat Clear Calc 88.1 Estimated GFR > 60 Random Glucose 81 Calcium 8.8 Magnesium 2.0 Impressions Abdomen/Pelvis CT 01/28/24 14:51 IMPRESSION: Evaluation is limited due to motion and overlying upper extremities. 1. Diffuse prominent colonic and rectal distention with high density fluid content, nonspecific could be related with diarrhea, colonic pseudoobstruction or impaired intestinal motility of uncertain etiology leading to ileus. A few areas of higher density (similar to contrast) are noted layering in several regions of the colon and rectum which are indeterminate, could represent oral contrast, ingested material or potentially blood products. Evaluation of GI bleed is limited in the absence of a noncontrast or delayed venous phase. 2. Patchy appearance of the lower right kidney and to a lesser extent upper left kidney with equivocal mild diffuse urinary bladder wall thickening that could indicate acute pyelonephritis and urinary tract infection. 3. Nonspecific very subtle heterogeneity of the left lateral pectoralis major musculature. Correlate with physical examination, and if indicated consider targeted evaluation with ultrasound. 4. Smaller decubitus ulcers in the right gluteal region with decreased soft tissue stranding. Stable minimal cortical irregularity of the underlying bone in which chronic osteomyelitis cannot be excluded. 5. Trace amount of left-sided pleural fluid with minimal compressive atelectasis. Microbiology Microbiology Results: Microbiology 01/27/24 17:36 Blood Culture - Preliminary Blood - Venous Gram negative jessie 01/27/24 17:36 Blood Culture - Final Blood - Venous Coag negative Staphylococcus 01/27/24 Unknown Urine Culture - Preliminary Urine clean catch - Urine mcclendon top Culture in progress. 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 The other blood culture was growing GPCs and vancomycin was started 01/27 but this was identified as coag-negative staph, so will d/c vanco. ID consultation pending. ileus - CT A/P with contrast done to check source of bacteremia and at this point appears most likely urinary with pyelonephritis + cystitis. Discussed findings in large bowel with Gen Surg; likely ileus from urosepsis. Given benign abdomen, will restart tube feeds PNA - meropenem as above, trend PCT, urinary antigens for Legionella and pneumococcus + MRSA swab pending septic encephalopathy - treat infections as above prerenal TAMMY - resolved s/p IV fluids hyperNa - resolved cerebral toxoplasmosis - continue atovaquone; unable to get pyrimethamine + leucovorin from his long- term facility so substituting [id number] chronic respiratory failure s/p tracheostomy + PEG - tracheostomy care, suctioning - continue PEG tube feeds - resume scopolamine patch + glycopyrrolate for secretions paraparesis - airloss mattress, turning q2h, offload all bony prominences with use of pillows, wedges, and heel boots gluteal decubitus ulcers - Wound Care consult pending BPH - chronic Rubio, continue finasteride seizure disorder - continue lacosamide GERD - continue PPI contractures - continue baclofen VTE ppx - LMWH dispo - eventual return to [facility] In my clinical judgment, the patient requires continued inpatient hospitalization for the following reasons: IV ABX Total time managing care of this patient today: 45 minutes. Quality Stroke Does the patient have a stroke diagnosis?: No VTE Prior VTE?: No VTE Risk Level:: Medical - moderate - high VTE Device Contraindication: Treatment Not Indicated VTE Drug Contraindication: N/A - Med Ordered
[2024-01-29 10:04] LABS: MRSA Nasal PCR NEGATIVE (Negative); SA Nasal PCR NEGATIVE (Negative)
[2024-01-29] MEDS: Sulfameth/Trimet 800/160/20 ML 20 ML ORAL.SUSP G-TUBE ×2 (12:20→22:09)
[2024-01-29] MEDS: Sucralfate 1 GM TABLET PO ×2 (12:21→16:37)
[2024-01-29 16:00] VITALS: BP 115/69; PULSE 87; RESP 12; TEMP 36.6; O2SAT 99
[2024-01-29 19:48] VITALS: BP 114/78; PULSE 87; RESP 20; TEMP 37.4; O2SAT 100
[2024-01-29] MEDS: Glycopyrrolate 1 MG TABLET 0.5 MG G-TUBE (22:05)
[2024-01-29] MEDS: Melatonin 3 MG TABLET G-TUBE (22:07)
[2024-01-29] MEDS: Enoxaparin Sodium 40 MG/0.4 ML SYRINGE SUBCUT (22:09)
[2024-01-30] VITALS (7 sets, daily range): BP systolic 95–135; BP diastolic 52–84; PULSE 84–104; RESP 16–20; TEMP 36.3–39.2; O2SAT 95–100; BMI 20.3
[2024-01-30] MEDS: Simethicone 80 MG TAB.CHEW G-TUBE ×5 (00:50→23:58)
[2024-01-30] MEDS: Acetaminophen 325 MG TABLET 650 MG G-TUBE (03:53)
[2024-01-30] MEDS: Albumin Human 25 % 100 ML 133.33 ML IV ×2 (04:21→05:19)
[2024-01-30 06:26] LABS: Hematocrit 29.5 % (42.0-52.0); Hemoglobin 9.7 g/dl (14.0-18.0); Lactic Acid 0.8 mmol/L (0.5-2.0); Mean Corpuscular HGB Conc 32.9 g/dl (31.0-36.0); Mean Corpuscular Hemoglobin 29.4 pg (27.0-33.0); Mean Corpuscular Volume 89.4 fL (80.0-98.0); Mean Platelet Volume 10.3 fL (9.4-12.4); Platelet Count 120 X10*3/uL (160-400); White Blood Count 6.1 X10*3/uL (4.8-10.8)
[2024-01-30 06:36] LABS: Anion Gap 12 (12-20); Blood Urea Nitrogen 13 mg/dL (9-16); C Reactive Protein 5.83 mg/dL (< or = 0.50); Calcium 9.1 mg/dL (8.4-10.2); Carbon Dioxide 28 mmol/L (22-29); Chloride 107 mmol/L (96-108); Creatinine Clr Calc Pharmacy 78.8; Estimated Glomerular Filt Rate > 60; Glucose Random 160 mg/dL (60-115); Potassium 3.5 mmol/L (3.3-5.1); Sodium 143 mmol/L (135-145)
[2024-01-30 07:25] LABS: Procalcitonin 2.65 ng/mL
--- NOTE | 2024-01-30 07:36 | P.PNIM_ITS ---
Subjective Subjective Date of Service: 01/30/24 Interval History: lethargic Physical Exam 2 Vital Signs: Vital Signs: Last Vital Signs Temp 97.6 F 01/30/24 07:25 Pulse 90 01/30/24 07:25 Resp 18 01/30/24 07:25 BP 102/66 01/30/24 07:25 Pulse Ox 99 01/30/24 07:25 O2 Del Method Trach Collar 01/30/24 07:25 O2 Flow Rate 4 01/30/24 07:25 FiO2 100 01/29/24 16:00 Oxygen Flow Rate 6 01/27/24 17:16 BMI result Body Mass Index 18.1 Gen: in no acute distress HEENT: sclera anicteric, moist mucus membranes Neck: supple, trach to collar Lungs: clear to auscultation bilaterally Heart: regular rate and rhythm, no murmurs Abd: soft, non-tender, non-distended, PEG in place, normal bowel sounds Ext: no edema Skin: warm/well-perfused Neuro: alert, BLE + LUE contracted non verbal, tracks, follows simple commands (stick out tongue, raise right arm) Objective Data Active Medications Acetaminophen (Acetaminophen 325 Mg Tablet) 650 mg G-TUBE Q4H PRN PRN Reason: Fever Or Pain Last Admin: 01/30/24 03:53 Dose: 650 mg Documented By: SONIA Acetylcysteine (Acetylcysteine 20 % 6,000 Mg/30 Ml Vial) 6,000 mg INHALE Q12H PRN PRN Reason: THICK AIRWAY SECRETION Albuterol Sulfate (Albuterol Sulfate (0.083%) 2.5 Mg/3 Ml Vial.Neb) 2.5 mg INHALE Q4H PRN PRN Reason: Shortness Of Breath Or Wheezing Ascorbic Acid (Ascorbic Acid 250 Mg Tablet) 250 mg G-TUBE DAILY [facility] Last Admin: 01/29/24 09:24 Dose: 250 mg Documented By: TIFFANIE Atovaquone (Atovaquone 750 Mg/5 Ml Oral.Susp) 750 mg G-TUBE BIDWM [facility] Last Admin: 01/29/24 16:36 Dose: 750 mg Documented By: TIFFANIE Baclofen (Baclofen 10 Mg Tablet) 5 mg G-TUBE TID@0900,1300,1700 [facility] Last Admin: 01/29/24 16:37 Dose: 5 mg Documented By: TIFFANIE Bisacodyl (Bisacodyl 10 Mg Supp.Rect) 10 mg [place] DAILY PRN PRN Reason: Constipation Enoxaparin Sodium (Enoxaparin Sodium 40 Mg/0.4 Ml Syringe) 40 mg SUBCUT Q24H [facility] Last Admin: 01/29/24 22:09 Dose: 40 mg Documented By: SONIA Finasteride (Finasteride 5 Mg Tablet) 5 mg PO DAILY [facility] Last Admin: 01/29/24 09:26 Dose: 5 mg Documented By: TIFFANIE Glycopyrrolate (Glycopyrrolate 1 Mg Tablet) 0.5 mg G-TUBE BID [facility] Last Admin: 01/29/24 22:05 Dose: 0.5 mg Documented By: SONIA Guaifenesin (Guaifenesin 200 Mg/10 Ml 10 Ml Liquid) 10 ml G-TUBE Q4H PRN PRN Reason: Cough Meropenem 1 gm/ Sodium (Chloride) 100 mls @ 200 mls/hr IV Q8H [facility] Last Infusion: 01/30/24 01:47 Dose: Infused Documented By: SONIA Lacosamide (Lacosamide 100 Mg Tablet) 200 mg G-TUBE BID [facility] Last Admin: 01/29/24 22:07 Dose: 200 mg Documented By: SONIA Loperamide HCl (Loperamide Hcl 2 Mg Capsule) 2 mg G-TUBE Q4H PRN PRN Reason: Diarrhea Loratadine (Loratadine 10 Mg Tablet) 10 mg G-TUBE DAILY [facility] Last Admin: 01/29/24 09:25 Dose: 10 mg Documented By: TIFFANIE Lorazepam (Lorazepam 0.5 Mg Tablet) 0.5 mg G-TUBE Q6H PRN PRN Reason: Anxiety Lorazepam (Lorazepam 2 Mg/Ml Vial) 2 mg IM ONCE PRN PRN Reason: Seizures Magnesium Hydroxide (Milk Of Magnesia 30 Ml Oral.Susp) 30 ml G-TUBE DAILY PRN PRN Reason: Constipation Melatonin (Melatonin 3 Mg Tablet) 3 mg G-TUBE BEDTIME [facility] Last Admin: 01/29/24 22:07 Dose: 3 mg Documented By: SONIA Midodrine (Midodrine Hcl 5 Mg Tablet) 5 mg PO TID [facility] Last Admin: 01/29/24 22:07 Dose: 5 mg Documented By: SONIA Morphine Sulfate (Morphine Sulfate Oral Cady 10 Mg/5 Ml Solution) 2.5 mg G-TUBE TID [facility] Last Admin: 01/29/24 22:07 Dose: 2.5 mg Documented By: SONIA Morphine Sulfate (Morphine Sulfate Oral Cady 10 Mg/5 Ml Solution) 5 mg G-TUBE DAILY [facility] Last Admin: 01/29/24 09:29 Dose: 5 mg Documented By: TIFFANIE Multivitamins/Vitamin C (Multivitamin Tablet) 1 tab PO DAILY [facility] Last Admin: 01/29/24 09:24 Dose: 1 tab Documented By: TIFFANIE Non-Formulary Medication (Linaclotide [Linzess]) 145 mcg G-TUBE DAILY [facility] Non-Formulary Medication (Cholecalciferol (Vitamin D3)) 1,250 mcg G-TUBE Q30D [facility] Omeprazole (Omeprazole 20 Mg Capsule.Dr) 20 mg PO BID [facility] Last Admin: 01/29/24 22:05 Dose: 20 mg Documented By: SONIA Ondansetron HCl (Ondansetron Hcl 4 Mg/2 Ml Vial) 4 mg IVPUSH Q8H PRN PRN Reason: Nausea and Vomiting Oxycodone HCl (Oxycodone Hcl Immed Release 5 Mg Tablet) 5 mg G-TUBE Q4H PRN PRN Reason: Pain (Scale Score 4-6) Polyethylene Glycol (Polyethylene Glycol 3350 17 Gm Powd.Pack) 17 gm G-TUBE DAILY [facility] Last Admin: 01/29/24 09:24 Dose: 17 gm Documented By: TIFFANIE Scopolamine (Scopolamine 1.5 Mg Patch.Td.3) 1.5 mg TRANSDERMA Q3D [facility] Last Admin: 01/28/24 01:52 Dose: 1.5 mg Documented By: CASTILM Senna/Docusate Sodium (Sennosides/Docusate Sodium Tablet) 2 tab PO BID@0900,1700 [facility] Last Admin: 01/29/24 16:36 Dose: 2 tab Documented By: TIFFANIE Simethicone (Simethicone 80 Mg Tab.Chew) 80 mg G-TUBE Q6H [facility] Last Admin: 01/30/24 06:15 Dose: 80 mg Documented By: SONIA Sodium Biphosphate/Sodium Phosphate (Sodium Phosphate,[place]-Dibasic 133 Ml Enema) 118 ml [place] DAILY PRN PRN Reason: Constipation Sodium Chloride (0.9 % Sodium Chloride Flush 3 Ml Syringe) 3 ml IVFLUSH QSHIFT [facility] Last Admin: 01/30/24 00:04 Dose: Not Given Documented By: SONIA Non-Admin Reason: Previously Administered Sucralfate (Sucralfate 1 Gm Tablet) 1 gm PO BID@1300,1700 [facility] Last Admin: 01/29/24 16:37 Dose: 1 gm Documented By: TIFFANIE Tramadol HCl (Tramadol Hcl 50 Mg Tablet) 50 mg G-TUBE Q4H PRN PRN Reason: Pain (Scale Score 1-3) Trimethoprim/Sulfamethoxazole (Sulfameth/Trimet 800/160/20 Ml 20 Ml Oral.Susp) 20 ml G-TUBE BID [facility] Last Admin: 01/29/24 22:09 Dose: 20 ml Documented By: SONIA Zinc Sulfate (Zinc Sulfate 220 Mg Capsule) 220 mg G-TUBE DAILY [facility] Last Admin: 01/29/24 09:25 Dose: 220 mg Documented By: TIFFANIE Labs 01/30/24 06:13 01/30/24 06:13 Labs: Laboratory Results - last 24 hr 01/28/24 01/30/24 18:24 06:13 MCV 89.4 MCH 29.4 MCHC 32.9 RDW 16.0 Plt Count 120 L MPV 10.3 Absolute Nucleated RBC 0.000 Nucleated RBC % (auto) 0.0 Anion Gap 12 Estim Creat Clear Calc 78.8 Estimated GFR > 60 Random Glucose 160 H Lactic Acid 0.8 Calcium 9.1 C-Reactive Protein 5.83 H Procalcitonin 2.65 Nasal Screen MRSA (PCR) NEGATIVE Nasal S. aureus Screen NEGATIVE Nasal MRSA/S.aureus Interp SEE NOTE Microbiology Microbiology Results: Microbiology 01/27/24 Unknown Urine Culture - Preliminary Urine clean catch - Urine mcclendon top Gram negative jessie 01/27/24 17:36 Blood Culture - Preliminary Blood - Venous Gram negative jesise 01/27/24 17:36 Blood Culture - Final Blood - Venous Coag negative Staphylococcus Assessment and Plan (1) Acute metabolic encephalopathy: Status: Acute (2) Acute UTI: Status: Acute Plan d4 53yo M long-term resident at [facility] with chronic resp failure s/p tracheostomy + PEG, stage IV mantle cell lymphoma, [employer]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 ID consultation pending. ileus restarted tube feeds, appears to be tolerated, abd soft PNA meropenem as above, trend PCT, urinary antigens for Legionella and pneumococcus + MRSA swab pending septic encephalopathy treat infections as above prerenal TAMMY resolved s/p IV fluids hyperNa resolved cerebral toxoplasmosis continue atovaquone; unable to get pyrimethamine + leucovorin from his long-term facility so substituting [id number] chronic respiratory failure s/p tracheostomy + PEG tracheostomy care, suctioning continue PEG tube feeds scopolamine patch + glycopyrrolate for secretions paraparesis airloss mattress, turning q2h, offload all bony prominences with use of pillows, wedges, and heel boots gluteal decubitus ulcers Wound Care consult pending BPH - chronic Rubio, continue finasteride seizure disorder continue lacosamide GERD continue PPI contractures continue baclofen VTE ppx LMWH dispo eventual return to [facility] reason for continued hospitalization:fevers, awaiting cultures Total time managing care of this patient today: 45 minutes. Quality Stroke Does the patient have a stroke diagnosis?: No VTE Prior VTE?: No VTE Risk Level:: Medical - moderate - high VTE Device Contraindication: Treatment Not Indicated VTE Drug Contraindication: N/A - Med Ordered
--- NOTE | 2024-01-30 07:39 | PC.NURSE ---
Approximately after 05:00, pt appeared to be more lethargic than at baseline. In the beginning of shift, pt was more awake and responding to questions with thumbs up or down/nodding. Pt developed fever after 03:30 rectal temp of 102.5, PRN Tylenol given to pt along with cold packs and cold washcloths to forehead, back of neck, and armpits. At 06:00, temp rechecked for 100.7 rectally. MD Walsh was notified of the pt's condition and came to bedside. No new orders were given at this time. Will continue to monitor the pt's condition.
--- NOTE | 2024-01-30 07:41 | PC.NURSE ---
Primary Night RN and Day RN concern for patient Mental Status. VSS, Pt is non verbal at baseline, MD Dumont and RT asked to come to the bedside to see patient.
[2024-01-30] MEDS: Zinc Sulfate 220 MG CAPSULE G-TUBE (09:34)
[2024-01-30] MEDS: Omeprazole 20 MG CAPSULE.DR PO ×2 (09:34→21:00)
[2024-01-30] MEDS: Midodrine HCl 5 MG TABLET PO ×3 (09:34→21:00)
[2024-01-30] MEDS: Multivitamin TABLET 1 TAB PO (09:34)
[2024-01-30] MEDS: polyethylene glycoL 3350 17 GM POWD.PACK G-TUBE (09:34)
[2024-01-30] MEDS: Ascorbic Acid 250 MG TABLET G-TUBE (09:34)
[2024-01-30] MEDS: Sennosides/Docusate Sodium TABLET 2 TAB PO ×2 (09:34→17:09)
[2024-01-30] MEDS: Loratadine 10 MG TABLET G-TUBE (09:34)
[2024-01-30] MEDS: Atovaquone 750 MG/5 ML ORAL.SUSP G-TUBE ×2 (09:34→17:09)
[2024-01-30] MEDS: Glycopyrrolate 1 MG TABLET 0.5 MG G-TUBE ×2 (09:34→20:59)
[2024-01-30] MEDS: Sulfameth/Trimet 800/160/20 ML 20 ML ORAL.SUSP G-TUBE ×2 (09:35→20:58)
[2024-01-30] MEDS: Finasteride 5 MG TABLET PO (09:35)
[2024-01-30] MEDS: Lacosamide 100 MG TABLET 200 MG G-TUBE ×2 (09:35→21:00)
[2024-01-30] MEDS: Morphine Sulfate Oral Sol 10 MG/5 ML SOLUTION 2.5 MG G-TUBE ×3 (09:35→21:00)
[2024-01-30] MEDS: Baclofen 10 MG TABLET 5 MG G-TUBE ×3 (09:36→17:09)
[2024-01-30] MEDS: Morphine Sulfate Oral Sol 10 MG/5 ML SOLUTION 5 MG G-TUBE (09:36)
[2024-01-30] MEDS: 0.9 % Sodium Chloride Flush 3 ML SYRINGE IVFLUSH ×3 (09:37→21:01)
--- NOTE | 2024-01-30 11:19 | MHC.CLN ---
NUTRITION PATIENT WITH TRACH AND PEG. UNABLE TO TAKE PO AND REQUIRES NUTRITION/HYDRATION VIA PEG. QUALIFIES MODERATELY MALNOURISHED IN THE CONTEXT OF CHRONIC ILLNESS. DX INCLUDE STAGE IV LYMPHOMA AND STITCH WHEELER TOXOPLASMOSIS. TOLERATING TUBE FEED AT 50 ML/HOUR. RECOMMEND INCREASE TUBE FEEDING TO MAX GOAL RATE ABLE: OSMOLITE 1.5 AT MAX GOAL RATE 60 ML PER HOUR, FREE WATER FLUSH 240 ML Q 6 HOURS. PROVIDES 2160 KCALS (35.6 KCALS/KG), 90 G PROTEIN (1.49 G/KG), 2057 ML FREE WATER FROM FORMULA AND FLUSH (33.9 ML/KG). MONITOR FOR TUBE FEED TOLERANCE, RESIDUALS AND LYTES. SEE CLINICAL NUTRITION ASSESSMENT 01/30/24.
--- NOTE | 2024-01-30 11:20 | MHC.CM.PN ---
A message was received from [facility]: return call requested. A VM was left due to no answer. A clinical update has been faxed to the facility. DP return to [facility] once medically cleared.
--- NOTE | 2024-01-30 11:50 | PM.CNPUL ---
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 Pulmonary consultation for routine tracheostomy exchange requested. Review of Systems Review of Systems: Yes Unobtainable due to mental condition [facility] Past Medical History Medical History (Updated 01/30/24 @ 11:52 by Vikram Arredondo MD) Tracheostomy dependent Mantle cell lymphoma Aspiration into airway Stage IV decubitus ulcer Osteomyelitis of pelvis Anemia Toxoplasmosis Encephalopathy MOTEL MANAGER lymphoma Rectal bleeding H/O: RCT (rotator cuff tear) Depression Appendicitis Chronic pain Kidney stone Mantle cell lymphoma Family History Family History Mother COPD (chronic obstructive pulmonary disease) Sister Colon cancer Surgical History Surgical History History of appendectomy Social History Social History 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 Housing: Shelter Housing Other:: [facility] Do you presently have visiting nurse or other home services: No Unable to assess alcohol history related to: Unable to respond Alcohol intake: unknown Patient Tobacco Use Status: Never used Tobacco Smoked in Last 30 Days: No Second Hand Smoke Exposure: No Use of substances other than those prescribed or required for medical reasons: Unable to respond Substance Use Type: Unknown Currently Displaying Signs/Symptoms of Drug Intoxication Withdrawal: No Advance Directives: Yes Advance Directives on File: Yes Advance Directives Date on File: 06/04/23 Do you have a plan to hurt others: No Plan Nutrition Risks: On aspiration precautions and Receiving home tube feeding or CPN service: No Current occupational status: unemployed Meds Allergies Allergy/AdvReac Type Severity Reaction Status Date / Time cyclobenzaprine [Flexeril] Allergy Unknown Palpitation Verified 01/27/24 17:28 s Active Medications: Current Medications Acetaminophen (Acetaminophen 325 Mg Tablet) 650 mg G-TUBE Q4H PRN PRN Reason: Fever Or Pain Last Admin: 01/30/24 03:53 Dose: 650 mg Acetylcysteine (Acetylcysteine 20 % 6,000 Mg/30 Ml Vial) 6,000 mg INHALE Q12H PRN PRN Reason: THICK AIRWAY SECRETION Albuterol Sulfate (Albuterol Sulfate (0.083%) 2.5 Mg/3 Ml Vial.Neb) 2.5 mg INHALE Q4H PRN PRN Reason: Shortness Of Breath Or Wheezing Ascorbic Acid (Ascorbic Acid 250 Mg Tablet) 250 mg G-TUBE DAILY ON LICENSE OF [facility] Last Admin: 01/30/24 09:34 Dose: 250 mg Atovaquone (Atovaquone 750 Mg/5 Ml Oral.Susp) 750 mg G-TUBE BIDWM ON LICENSE OF [facility] Last Admin: 01/30/24 09:34 Dose: 750 mg Baclofen (Baclofen 10 Mg Tablet) 5 mg G-TUBE TID@0900,1300,1700 ON LICENSE OF [facility] Last Admin: 01/30/24 09:36 Dose: 5 mg Bisacodyl (Bisacodyl 10 Mg Supp.Rect) 10 mg AR DAILY PRN PRN Reason: Constipation Enoxaparin Sodium (Enoxaparin Sodium 40 Mg/0.4 Ml Syringe) 40 mg SUBCUT Q24H ON LICENSE OF [facility] Last Admin: 01/29/24 22:09 Dose: 40 mg Finasteride (Finasteride 5 Mg Tablet) 5 mg PO DAILY ON LICENSE OF [facility] Last Admin: 01/30/24 09:35 Dose: 5 mg Glycopyrrolate (Glycopyrrolate 1 Mg Tablet) 0.5 mg G-TUBE BID ON LICENSE OF [facility] Last Admin: 01/30/24 09:34 Dose: 0.5 mg Guaifenesin (Guaifenesin 200 Mg/10 Ml 10 Ml Liquid) 10 ml G-TUBE Q4H PRN PRN Reason: Cough Meropenem 1 gm/ Sodium (Chloride) 100 mls @ 200 mls/hr IV Q8H ON LICENSE OF [facility] Last Infusion: 01/30/24 10:32 Dose: Infused Lacosamide (Lacosamide 100 Mg Tablet) 200 mg G-TUBE BID ON LICENSE OF [facility] Last Admin: 01/30/24 09:35 Dose: 200 mg Loperamide HCl (Loperamide Hcl 2 Mg Capsule) 2 mg G-TUBE Q4H PRN PRN Reason: Diarrhea Loratadine (Loratadine 10 Mg Tablet) 10 mg G-TUBE DAILY ON [facility] OF [facility] Last Admin: 01/30/24 09:34 Dose: 10 mg Lorazepam (Lorazepam 0.5 Mg Tablet) 0.5 mg G-TUBE Q6H PRN PRN Reason: Anxiety Lorazepam (Lorazepam 2 Mg/Ml Vial) 2 mg IM ONCE PRN PRN Reason: Seizures Magnesium Hydroxide (Milk Of Magnesia 30 Ml Oral.Susp) 30 ml G-TUBE DAILY PRN PRN Reason: Constipation Melatonin (Melatonin 3 Mg Tablet) 3 mg G-TUBE BEDTIME ON LICENSE OF [facility] Last Admin: 01/29/24 22:07 Dose: 3 mg Midodrine (Midodrine Hcl 5 Mg Tablet) 5 mg PO TID ON LICENSE OF [facility] Last Admin: 01/30/24 09:34 Dose: 5 mg Morphine Sulfate (Morphine Sulfate Oral Cady 10 Mg/5 Ml Solution) 2.5 mg G-TUBE TID ON LICENSE OF [facility] Last Admin: 01/30/24 09:35 Dose: 2.5 mg Morphine Sulfate (Morphine Sulfate Oral Cady 10 Mg/5 Ml Solution) 5 mg G-TUBE DAILY ON [facility] OF [facility] Last Admin: 01/30/24 09:36 Dose: 5 mg Multivitamins/Vitamin C (Multivitamin Tablet) 1 tab PO DAILY ON LICENSE OF [facility] Last Admin: 01/30/24 09:34 Dose: 1 tab Non-Formulary Medication (Linaclotide [Linzess]) 145 mcg G-TUBE DAILY ON LICENSE OF [facility] Non-Formulary Medication (Cholecalciferol (Vitamin D3)) 1,250 mcg G-TUBE Q30D ON LICENSE OF [facility] Omeprazole (Omeprazole 20 Mg Capsule.Dr) 20 mg PO BID ON LICENSE OF [facility] Last Admin: 01/30/24 09:34 Dose: 20 mg Ondansetron HCl (Ondansetron Hcl 4 Mg/2 Ml Vial) 4 mg IVPUSH Q8H PRN PRN Reason: Nausea and Vomiting Oxycodone HCl (Oxycodone Hcl Immed Release 5 Mg Tablet) 5 mg G-TUBE Q4H PRN PRN Reason: Pain (Scale Score 4-6) Polyethylene Glycol (Polyethylene Glycol 3350 17 Gm Powd.Pack) 17 gm G-TUBE DAILY ON LICENSE OF [facility] Last Admin: 01/30/24 09:34 Dose: 17 gm Scopolamine (Scopolamine 1.5 Mg Patch.Td.3) 1.5 mg TRANSDERMA Q3D ON LICENSE OF [facility] Last Admin: 01/28/24 01:52 Dose: 1.5 mg Senna/Docusate Sodium (Sennosides/Docusate Sodium Tablet) 2 tab PO BID@0900,1700 ON LICENSE OF [facility] Last Admin: 01/30/24 09:34 Dose: 2 tab Simethicone (Simethicone 80 Mg Tab.Chew) 80 mg G-TUBE Q6H ON LICENSE OF [facility] Last Admin: 01/30/24 06:15 Dose: 80 mg Sodium Biphosphate/Sodium Phosphate (Sodium Phosphate,[place]-Dibasic 133 Ml Enema) 118 ml AR DAILY PRN PRN Reason: Constipation Sodium Chloride (0.9 % Sodium Chloride Flush 3 Ml Syringe) 3 ml IVFLUSH QSHIFT ON LICENSE OF [facility] Last Admin: 01/30/24 09:37 Dose: 3 ml Sucralfate (Sucralfate 1 Gm Tablet) 1 gm PO BID@1300,1700 ON LICENSE OF [facility] Last Admin: 01/29/24 16:37 Dose: 1 gm Tramadol HCl (Tramadol Hcl 50 Mg Tablet) 50 mg G-TUBE Q4H PRN PRN Reason: Pain (Scale Score 1-3) Trimethoprim/Sulfamethoxazole (Sulfameth/Trimet 800/160/20 Ml 20 Ml Oral.Susp) 20 ml G-TUBE BID ON LICENSE OF [facility] Last Admin: 01/30/24 09:35 Dose: 20 ml Zinc Sulfate (Zinc Sulfate 220 Mg Capsule) 220 mg G-TUBE DAILY ON [facility] OF [facility] Last Admin: 01/30/24 09:34 Dose: 220 mg Home Medications ?Medication ?Instructions ?Recorded ?Confirmed ?Last Taken ?Type acetaminophen 325 mg tablet 650 mg feeding tube Q4H PRN Fever 01/02/23 01/27/24 09/22/23 History Or Pain albuterol sulfate 2.5 mg/3 mL 2.5 mg inhalation Q4H PRN 01/02/23 01/27/24 Unknown History (0.083 %) solution for nebulization Shortness Of Breath Or Wheezing ascorbic acid (vitamin C) 250 mg 250 mg feeding tube DAILY 01/02/23 01/27/24 09/22/23 History tablet atovaquone 750 mg/5 mL oral 750 mg feeding tube BIDWM 01/02/23 01/27/24 09/22/23 History suspension baclofen 10 mg tablet 5 mg feeding tube 01/02/23 01/27/24 09/22/23 History TID@0900,1300,1700 bisacodyl 10 mg rectal suppository 10 mg AR DAILY PRN Constipation 01/02/23 01/27/24 Unknown History cholecalciferol (vitamin D3) 1,250 1,250 mcg feeding tube QMONTH 01/02/23 01/27/24 08/29/23 History mcg (50,000 unit) tablet finasteride 5 mg tablet 5 mg feeding tube DAILY 01/02/23 01/27/24 09/22/23 History glycopyrrolate 1 mg tablet 0.5 mg feeding tube BID 01/02/23 01/27/24 09/22/23 History guaifenesin 200 mg/5 mL oral liquid 200 mg feeding tube Q4H PRN Cough 01/02/23 01/27/24 Unknown History lacosamide 200 mg tablet 200 mg feeding tube BID 01/02/23 01/27/24 09/22/23 History leucovorin calcium 25 mg tablet 25 mg feeding tube BEDTIME 01/02/23 01/27/24 09/22/23 History loperamide 2 mg capsule 2 mg feeding tube Q4H PRN Diarrhea 01/02/23 01/27/24 Unknown History lorazepam 0.5 mg tablet 0.5 mg feeding tube Q6H PRN Anxiety 01/02/23 01/27/24 09/22/23 History lorazepam 2 mg/mL injection 2 mg IM ONCE PRN Seizures 01/02/23 01/27/24 Unknown History solution magnesium hydroxide 400 mg/5 mL 30 ml feeding tube DAILY PRN 01/02/23 01/27/24 Unknown History oral suspension (Milk of Magnesia) Constipation melatonin 3 mg tablet 3 mg feeding tube BEDTIME 01/02/23 01/27/24 09/22/23 History morphine 10 mg/5 mL oral solution 5 mg feeding tube DAILY 01/02/23 01/27/24 09/22/23 History ondansetron HCl 2 mg/mL 4 mg IM Q4H PRN Nausea And Vomiting 01/02/23 01/27/24 Unknown History intravenous solution ondansetron HCl 4 mg tablet 4 mg feeding tube DAILY 01/02/23 01/27/24 Unknown History oxycodone 5 mg tablet 5 mg feeding tube Q4H PRN Pain 01/02/23 01/27/24 09/22/23 10:02 History (Scale Score 4-6) scopolamine base 1 mg over 3 days 1 patch transdermal Q3D 01/02/23 01/27/24 09/22/23 History transdermal patch sennosides 8.6 mg-docusate sodium 2 tab-cap PO BID@0900,1700 01/02/23 01/27/24 09/22/23 History 50 mg tablet (Senna with Docusate Constipation Sodium) sodium phosphates 19 gram-7 118 ml AR DAILY PRN Constipation 01/02/23 01/27/24 Unknown History gram/118 mL enema (Fleet Enema) tramadol 50 mg tablet 50 mg feeding tube Q4H PRN Pain 01/02/23 01/27/24 Unknown History (Scale Score 1-3) zinc sulfate 50 mg zinc (220 mg) 50 mg feeding tube DAILY 01/02/23 01/27/24 09/22/23 History tablet multivitamin 1 tab feeding tube DAILY 01/31/23 01/27/24 09/22/23 History pyrimethamine 25 mg tablet 50 mg feeding tube DAILY 01/31/23 01/27/24 09/22/23 History betamethasone dipropionate 0.05 % 1 appl topical DAILY 06/04/23 01/27/24 09/22/23 History topical ointment carboxymethylcellulose sodium 0.25 2 drp ophthalmic (eye) BID 06/04/23 01/27/24 09/22/23 History % eye drops morphine 10 mg/5 mL oral solution 2.5 mg feeding tube TID 06/04/23 01/27/24 09/22/23 History sucralfate 1 gram tablet 1 g PO BID@1300,1700 06/04/23 01/27/24 09/22/23 History acetylcysteine 200 mg/mL (20 %) 30 ml inhalation Q12H PRN THICK 09/22/23 01/27/24 Unknown History solution AIRWAY SECRETION ibuprofen 600 mg tablet 600 mg PO Q8H PRN FEVER 09/22/23 01/27/24 Unknown History UNRESPONSIVE TO APAP linaclotide 145 mcg capsule 145 mcg G-tube DAILY 01/27/24 01/27/24 Unknown History (Linzess) loratadine 10 mg tablet 10 mg feeding tube DAILY 01/27/24 01/27/24 Unknown History midodrine 5 mg tablet 5 mg PO TID 01/27/24 01/27/24 Unknown History omeprazole 20 mg capsule,delayed 20 mg feeding tube BID 01/27/24 01/27/24 Unknown History release polyethylene glycol 3350 17 gram 17 g feeding tube DAILY 01/27/24 01/27/24 Unknown History oral powder packet (Miralax) simethicone 80 mg chewable tablet 80 mg feeding tube Q6H 01/27/24 01/27/24 Unknown History Physical Exam Vital Signs: Vital Signs: Last Vital Signs Temp 97.6 F 01/30/24 07:25 Pulse 90 01/30/24 07:25 Resp 18 01/30/24 07:25 BP 102/66 01/30/24 07:25 Pulse Ox 99 01/30/24 07:25 O2 Del Method Trach Collar 01/30/24 07:25 O2 Flow Rate 4 01/30/24 07:25 FiO2 100 01/29/24 16:00 Oxygen Flow Rate 6 01/27/24 17:16 BMI result Body Mass Index 20.3 Const: General: no acute distress, alert and awake Eyes: Sclerae: sclerae normal EOM: EOMs intact bilaterally Neck: Neck: Yes no lymphadenopathy, Yes trachea midline, Yes supple and Yes tracheostomy present (On tracheal collar) Resp: Effort & Inspection: normal respiratory effort and no respiratory distress Auscultation: clear to auscultation bilaterally Cardio: Rate: regular rate Rhythm: regular rhythm Heart sounds: no gallops, no murmurs and no rubs GI: Palpation (GI): Soft to palpation and Other GI palpation findings present ( Nontender) Auscultation: normal bowel sounds Extrem: General: Yes no pedal edema, No clubbing and No cyanosis Results Laboratory Findings 01/30/24 06:13 01/30/24 06:13 ABG, PT/INR, D-dimer: PT/INR, D-dimer PT 13.2 SEC (11.1-13.3) 01/27/24 17:36 INR 1.1 (0.9-1.1) 01/27/24 17:36 Abnormal lab findings: Abnormal Labs 01/27/24 01/27/24 01/28/24 17:36 19:19 05:25 RBC 4.10 L 3.67 L Hgb 12.3 L 10.9 L Hct 36.5 L 33.6 L RDW 16.7 H 16.8 H Plt Count 149 L Immature Gran % (Auto) 0.5 H Neut % (Auto) 80.8 H 74.6 H Lymph % (Auto) 6.8 L 12.4 L [place] % (Auto) 11.8 H 12.1 H Lymph # (Auto) 0.7 L 1.0 L Abs Immat Gran (auto) 0.04 H Sodium 146 H Carbon Dioxide 31 H BUN 32 H 20 H Random Glucose Alkaline Phosphatase 123 H C-Reactive Protein 14.23 H Urine Protein 300 (3+) H Urine Blood Large (3+) H Urine Nitrite Positive H Ur Leukocyte Esterase Large (3+) H Urine RBC >20 H Urine WBC >50 H 01/29/24 01/30/24 05:08 06:13 RBC 3.45 L 3.30 L Hgb 10.3 L 9.7 L Hct 30.8 L 29.5 L RDW 16.5 H Plt Count 118 L 120 L Immature Gran % (Auto) Neut % (Auto) Lymph % (Auto) [place] % (Auto) Lymph # (Auto) Abs Immat Gran (auto) Sodium Carbon Dioxide BUN Random Glucose 160 H Alkaline Phosphatase C-Reactive Protein 5.83 H Urine Protein Urine Blood Urine Nitrite Ur Leukocyte Esterase Urine RBC Urine WBC Microbiology: Microbiology 01/27/24 Unknown Urine clean catch - Urine mcclendon top Urine Culture - Final Escherichia coli 01/27/24 17:36 Blood - Venous Blood Culture - Final Escherichia coli 01/27/24 17:36 Blood - Venous Blood Culture - Final Coag negative Staphylococcus Assessment and Plan (1) Tracheostomy dependent: Status: Acute (2) Chronic hypoxic respiratory failure: Status: Acute Plan Impression: 53-year-old gentleman with underlying chronic tracheostomy on supplemental oxygen via tracheal collar admitted for UTI and routine exchange of underlying tracheostomy requested. Tracheostomy exchange at the bedside with Shiley 6 noncuffed. Patient tolerated the procedure well. Recommendations: Continue routine tracheostomy care. Procedures Date of Service Date of Service: 01/30/24
--- NOTE | 2024-01-30 12:35 | P.PNGS_ITS ---
Subjective Subjective Date of Service: 01/30/24 Interval history: No changes No issues reported except for transient drowsiness has early this morning Peg tube feeds started without problems Physical Exam 2 Vital Signs: Vital Signs: Last Vital Signs Temp 97.6 F 01/30/24 07:25 Pulse 90 01/30/24 07:25 Resp 18 01/30/24 07:25 BP 102/66 01/30/24 07:25 Pulse Ox 99 01/30/24 07:25 O2 Del Method Trach Collar 01/30/24 07:25 O2 Flow Rate 4 01/30/24 07:25 FiO2 100 01/29/24 16:00 Oxygen Flow Rate 6 01/27/24 17:16 BMI result Body Mass Index 20.3 Const: Other: Nonverbal, eyes open spontaneously General: no acute distress Resp: Effort & Inspection: normal respiratory effort Cardio: Rate: regular rate GI: Other: Peg tube in place Palpation (GI): Soft to palpation, not firm, nontender and no guarding Objective Data Active Medications Acetaminophen (Acetaminophen 325 Mg Tablet) 650 mg G-TUBE Q4H PRN PRN Reason: Fever Or Pain Last Admin: 01/30/24 03:53 Dose: 650 mg Documented By: SONIA Acetylcysteine (Acetylcysteine 20 % 6,000 Mg/30 Ml Vial) 6,000 mg INHALE Q12H PRN PRN Reason: THICK AIRWAY SECRETION Albuterol Sulfate (Albuterol Sulfate (0.083%) 2.5 Mg/3 Ml Vial.Neb) 2.5 mg INHALE Q4H PRN PRN Reason: Shortness Of Breath Or Wheezing Ascorbic Acid (Ascorbic Acid 250 Mg Tablet) 250 mg G-TUBE DAILY [facility] Last Admin: 01/30/24 09:34 Dose: 250 mg Documented By: MIS Atovaquone (Atovaquone 750 Mg/5 Ml Oral.Susp) 750 mg G-TUBE BIDWM [facility] Last Admin: 01/30/24 09:34 Dose: 750 mg Documented By: MIS Baclofen (Baclofen 10 Mg Tablet) 5 mg G-TUBE TID@0900,1300,1700 [facility] Last Admin: 01/30/24 09:36 Dose: 5 mg Documented By: MIS Bisacodyl (Bisacodyl 10 Mg Supp.Rect) 10 mg TN DAILY PRN PRN Reason: Constipation Enoxaparin Sodium (Enoxaparin Sodium 40 Mg/0.4 Ml Syringe) 40 mg SUBCUT Q24H [facility] Last Admin: 01/29/24 22:09 Dose: 40 mg Documented By: SONIA Finasteride (Finasteride 5 Mg Tablet) 5 mg PO DAILY [facility] Last Admin: 01/30/24 09:35 Dose: 5 mg Documented By: MIS Glycopyrrolate (Glycopyrrolate 1 Mg Tablet) 0.5 mg G-TUBE BID [facility] Last Admin: 01/30/24 09:34 Dose: 0.5 mg Documented By: MIS Guaifenesin (Guaifenesin 200 Mg/10 Ml 10 Ml Liquid) 10 ml G-TUBE Q4H PRN PRN Reason: Cough Meropenem 1 gm/ Sodium (Chloride) 100 mls @ 200 mls/hr IV Q8H [facility] Last Infusion: 01/30/24 10:32 Dose: Infused Documented By: MIS Lacosamide (Lacosamide 100 Mg Tablet) 200 mg G-TUBE BID [facility] Last Admin: 01/30/24 09:35 Dose: 200 mg Documented By: MIS Loperamide HCl (Loperamide Hcl 2 Mg Capsule) 2 mg G-TUBE Q4H PRN PRN Reason: Diarrhea Loratadine (Loratadine 10 Mg Tablet) 10 mg G-TUBE DAILY [facility] Last Admin: 01/30/24 09:34 Dose: 10 mg Documented By: MIS Lorazepam (Lorazepam 0.5 Mg Tablet) 0.5 mg G-TUBE Q6H PRN PRN Reason: Anxiety Lorazepam (Lorazepam 2 Mg/Ml Vial) 2 mg IM ONCE PRN PRN Reason: Seizures Magnesium Hydroxide (Milk Of Magnesia 30 Ml Oral.Susp) 30 ml G-TUBE DAILY PRN PRN Reason: Constipation Melatonin (Melatonin 3 Mg Tablet) 3 mg G-TUBE BEDTIME [facility] Last Admin: 01/29/24 22:07 Dose: 3 mg Documented By: SONIA Midodrine (Midodrine Hcl 5 Mg Tablet) 5 mg PO TID [facility] Last Admin: 01/30/24 09:34 Dose: 5 mg Documented By: MIS Morphine Sulfate (Morphine Sulfate Oral Cady 10 Mg/5 Ml Solution) 2.5 mg G-TUBE TID [facility] Last Admin: 01/30/24 09:35 Dose: 2.5 mg Documented By: MIS Morphine Sulfate (Morphine Sulfate Oral Cady 10 Mg/5 Ml Solution) 5 mg G-TUBE DAILY [facility] Last Admin: 01/30/24 09:36 Dose: 5 mg Documented By: MIS Multivitamins/Vitamin C (Multivitamin Tablet) 1 tab PO DAILY [facility] Last Admin: 01/30/24 09:34 Dose: 1 tab Documented By: MIS Non-Formulary Medication (Linaclotide [Linzess]) 145 mcg G-TUBE DAILY [facility] Non-Formulary Medication (Cholecalciferol (Vitamin D3)) 1,250 mcg G-TUBE Q30D [facility] Omeprazole (Omeprazole 20 Mg Capsule.Dr) 20 mg PO BID [facility] Last Admin: 01/30/24 09:34 Dose: 20 mg Documented By: MIS Ondansetron HCl (Ondansetron Hcl 4 Mg/2 Ml Vial) 4 mg IVPUSH Q8H PRN PRN Reason: Nausea and Vomiting Oxycodone HCl (Oxycodone Hcl Immed Release 5 Mg Tablet) 5 mg G-TUBE Q4H PRN PRN Reason: Pain (Scale Score 4-6) Polyethylene Glycol (Polyethylene Glycol 3350 17 Gm Powd.Pack) 17 gm G-TUBE DAILY [facility] Last Admin: 01/30/24 09:34 Dose: 17 gm Documented By: MIS Scopolamine (Scopolamine 1.5 Mg Patch.Td.3) 1.5 mg TRANSDERMA Q3D [facility] Last Admin: 01/28/24 01:52 Dose: 1.5 mg Documented By: CASTILM Senna/Docusate Sodium (Sennosides/Docusate Sodium Tablet) 2 tab PO BID@0900,1700 [facility] Last Admin: 01/30/24 09:34 Dose: 2 tab Documented By: MIS Simethicone (Simethicone 80 Mg Tab.Chew) 80 mg G-TUBE Q6H [facility] Last Admin: 01/30/24 06:15 Dose: 80 mg Documented By: SONIA Sodium Biphosphate/Sodium Phosphate (Sodium Phosphate,[place]-Dibasic 133 Ml Enema) 118 ml [place] DAILY PRN PRN Reason: Constipation Sodium Chloride (0.9 % Sodium Chloride Flush 3 Ml Syringe) 3 ml IVFLUSH QSHIFT [facility] Last Admin: 01/30/24 09:37 Dose: 3 ml Documented By: MIS Sucralfate (Sucralfate 1 Gm Tablet) 1 gm PO BID@1300,1700 [facility] Last Admin: 01/29/24 16:37 Dose: 1 gm Documented By: TIFFANIE Tramadol HCl (Tramadol Hcl 50 Mg Tablet) 50 mg G-TUBE Q4H PRN PRN Reason: Pain (Scale Score 1-3) Trimethoprim/Sulfamethoxazole (Sulfameth/Trimet 800/160/20 Ml 20 Ml Oral.Susp) 20 ml G-TUBE BID [facility] Last Admin: 01/30/24 09:35 Dose: 20 ml Documented By: MIS Zinc Sulfate (Zinc Sulfate 220 Mg Capsule) 220 mg G-TUBE DAILY [facility] Last Admin: 01/30/24 09:34 Dose: 220 mg Documented By: MIS Labs 01/30/24 06:13 01/30/24 06:13 Labs: Laboratory Results - last 24 hr 01/30/24 06:13 MCV 89.4 MCH 29.4 MCHC 32.9 RDW 16.0 Plt Count 120 L MPV 10.3 Absolute Nucleated RBC 0.000 Nucleated RBC % (auto) 0.0 Anion Gap 12 Estim Creat Clear Calc 78.8 Estimated GFR > 60 Random Glucose 160 H Lactic Acid 0.8 Calcium 9.1 C-Reactive Protein 5.83 H Procalcitonin 2.65 Microbiology Microbiology Results: Microbiology 01/27/24 Unknown Urine Culture - Final Urine clean catch - Urine mcclendon top Escherichia coli 01/27/24 17:36 Blood Culture - Final Blood - Venous Escherichia coli 01/27/24 17:36 Blood Culture - Final Blood - Venous Coag negative Staphylococcus Procedures Date of Service Date of Service: 01/30/24 Progress Note: A&P Assessment and plan (1) Acute UTI: Status: Acute Assessment and Plan: May have had some ileus based on CT scan Tolerating PEG tube feeding Okay to advance right to meet target caloric requirements Abdomen is remains soft, benign, nondistended IV antibiotics for urosepsis Time Spent With Patient Time: Total time managing care of this patient today ____ minutes. Quality Stroke Does the patient have a stroke diagnosis?: No VTE Prior VTE?: No VTE Risk Level:: Medical - moderate - high VTE Device Contraindication: Treatment Not Indicated VTE Drug Contraindication: N/A - Med Ordered
[2024-01-30] MEDS: Sucralfate 1 GM TABLET PO ×2 (13:25→17:09)
--- NOTE | 2024-01-30 16:50 | W.PM.IDCN ---
History of Present Illness Data of Consult Service Date: 01/30/24 Requesting physician: Joe Dumont Primary Care Provider: [facility] HPI Reason for consult: ESBL bacteremia He presents with fever to 102 from facility. He has had ESBL bacteremia before. He has h/o [employer]URITY [employer]IST toxoplasmosis. 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 Rectal bleeding H/O: RCT (rotator cuff tear) Depression Appendicitis Chronic pain Kidney stone Mantle cell lymphoma Family History Family History Mother COPD (chronic obstructive pulmonary disease) Sister Colon cancer Family history: reviewed and not pertinent Surgical History Surgical History History of appendectomy Social History Social History 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 Housing: Group Home Housing Other:: [facility] Do you presently have visiting nurse or other home services: No Unable to assess alcohol history related to: Unable to respond Alcohol intake: unknown Patient Tobacco Use Status: Never used Tobacco Smoked in Last 30 Days: No Second Hand Smoke Exposure: No Use of substances other than those prescribed or required for medical reasons: Unable to respond Substance Use Type: Unknown Currently Displaying Signs/Symptoms of Drug Intoxication Withdrawal: No Advance Directives: Yes Advance Directives on File: Yes Advance Directives Date on File: 06/04/23 Do you have a plan to hurt others: No Plan Nutrition Risks: On aspiration precautions and Receiving home tube feeding or CPN service: No Current occupational status: unemployed Meds Allergies Allergy/AdvReac Type Severity Reaction Status Date / Time cyclobenzaprine [Flexeril] Allergy Unknown Palpitation Verified 01/27/24 17:28 s Active Medications: Current Medications Acetaminophen (Acetaminophen 325 Mg Tablet) 650 mg G-TUBE Q4H PRN PRN Reason: Fever Or Pain Last Admin: 01/30/24 03:53 Dose: 650 mg Acetylcysteine (Acetylcysteine 20 % 6,000 Mg/30 Ml Vial) 6,000 mg INHALE Q12H PRN PRN Reason: THICK AIRWAY SECRETION Albuterol Sulfate (Albuterol Sulfate (0.083%) 2.5 Mg/3 Ml Vial.Neb) 2.5 mg INHALE Q4H PRN PRN Reason: Shortness Of Breath Or Wheezing Ascorbic Acid (Ascorbic Acid 250 Mg Tablet) 250 mg G-TUBE DAILY [facility] Last Admin: 01/30/24 09:34 Dose: 250 mg Atovaquone (Atovaquone 750 Mg/5 Ml Oral.Susp) 750 mg G-TUBE BIDWM [facility] Last Admin: 01/30/24 09:34 Dose: 750 mg Baclofen (Baclofen 10 Mg Tablet) 5 mg G-TUBE TID@0900,1300,1700 [facility] Last Admin: 01/30/24 13:25 Dose: 5 mg Bisacodyl (Bisacodyl 10 Mg Supp.Rect) 10 mg OH DAILY PRN PRN Reason: Constipation Enoxaparin Sodium (Enoxaparin Sodium 40 Mg/0.4 Ml Syringe) 40 mg SUBCUT Q24H [facility] Last Admin: 01/29/24 22:09 Dose: 40 mg Finasteride (Finasteride 5 Mg Tablet) 5 mg PO DAILY [facility] Last Admin: 01/30/24 09:35 Dose: 5 mg Glycopyrrolate (Glycopyrrolate 1 Mg Tablet) 0.5 mg G-TUBE BID [facility] Last Admin: 01/30/24 09:34 Dose: 0.5 mg Guaifenesin (Guaifenesin 200 Mg/10 Ml 10 Ml Liquid) 10 ml G-TUBE Q4H PRN PRN Reason: Cough Meropenem 1 gm/ Sodium (Chloride) 100 mls @ 200 mls/hr IV Q8H [facility] Last Infusion: 01/30/24 10:32 Dose: Infused Lacosamide (Lacosamide 100 Mg Tablet) 200 mg G-TUBE BID [facility] Last Admin: 01/30/24 09:35 Dose: 200 mg Loperamide HCl (Loperamide Hcl 2 Mg Capsule) 2 mg G-TUBE Q4H PRN PRN Reason: Diarrhea Loratadine (Loratadine 10 Mg Tablet) 10 mg G-TUBE DAILY [facility] Last Admin: 01/30/24 09:34 Dose: 10 mg Lorazepam (Lorazepam 0.5 Mg Tablet) 0.5 mg G-TUBE Q6H PRN PRN Reason: Anxiety Lorazepam (Lorazepam 2 Mg/Ml Vial) 2 mg IM ONCE PRN PRN Reason: Seizures Magnesium Hydroxide (Milk Of Magnesia 30 Ml Oral.Susp) 30 ml G-TUBE DAILY PRN PRN Reason: Constipation Melatonin (Melatonin 3 Mg Tablet) 3 mg G-TUBE BEDTIME [facility] Last Admin: 01/29/24 22:07 Dose: 3 mg Midodrine (Midodrine Hcl 5 Mg Tablet) 5 mg PO TID [facility] Last Admin: 01/30/24 15:37 Dose: 5 mg Morphine Sulfate (Morphine Sulfate Oral Cady 10 Mg/5 Ml Solution) 2.5 mg G-TUBE TID [facility] Last Admin: 01/30/24 15:41 Dose: 2.5 mg Morphine Sulfate (Morphine Sulfate Oral Cady 10 Mg/5 Ml Solution) 5 mg G-TUBE DAILY [facility] Last Admin: 01/30/24 09:36 Dose: 5 mg Multivitamins/Vitamin C (Multivitamin Tablet) 1 tab PO DAILY [facility] Last Admin: 01/30/24 09:34 Dose: 1 tab Non-Formulary Medication (Linaclotide [Linzess]) 145 mcg G-TUBE DAILY [facility] Non-Formulary Medication (Cholecalciferol (Vitamin D3)) 1,250 mcg G-TUBE Q30D [facility] Omeprazole (Omeprazole 20 Mg Capsule.Dr) 20 mg PO BID [facility] Last Admin: 01/30/24 09:34 Dose: 20 mg Ondansetron HCl (Ondansetron Hcl 4 Mg/2 Ml Vial) 4 mg IVPUSH Q8H PRN PRN Reason: Nausea and Vomiting Oxycodone HCl (Oxycodone Hcl Immed Release 5 Mg Tablet) 5 mg G-TUBE Q4H PRN PRN Reason: Pain (Scale Score 4-6) Polyethylene Glycol (Polyethylene Glycol 3350 17 Gm Powd.Pack) 17 gm G-TUBE DAILY [facility] Last Admin: 01/30/24 09:34 Dose: 17 gm Scopolamine (Scopolamine 1.5 Mg Patch.Td.3) 1.5 mg TRANSDERMA Q3D [facility] Last Admin: 01/28/24 01:52 Dose: 1.5 mg Senna/Docusate Sodium (Sennosides/Docusate Sodium Tablet) 2 tab PO BID@0900,1700 [facility] Last Admin: 01/30/24 09:34 Dose: 2 tab Simethicone (Simethicone 80 Mg Tab.Chew) 80 mg G-TUBE Q6H [facility] Last Admin: 01/30/24 13:25 Dose: 80 mg Sodium Biphosphate/Sodium Phosphate (Sodium Phosphate,[place]-Dibasic 133 Ml Enema) 118 ml OH DAILY PRN PRN Reason: Constipation Sodium Chloride (0.9 % Sodium Chloride Flush 3 Ml Syringe) 3 ml IVFLUSH QSHIFT [facility] Last Admin: 01/30/24 15:42 Dose: 3 ml Sucralfate (Sucralfate 1 Gm Tablet) 1 gm PO BID@1300,1700 [facility] Last Admin: 01/30/24 13:25 Dose: 1 gm Tramadol HCl (Tramadol Hcl 50 Mg Tablet) 50 mg G-TUBE Q4H PRN PRN Reason: Pain (Scale Score 1-3) Trimethoprim/Sulfamethoxazole (Sulfameth/Trimet 800/160/20 Ml 20 Ml Oral.Susp) 20 ml G-TUBE BID [facility] Last Admin: 01/30/24 09:35 Dose: 20 ml Zinc Sulfate (Zinc Sulfate 220 Mg Capsule) 220 mg G-TUBE DAILY [facility] Last Admin: 01/30/24 09:34 Dose: 220 mg Home Medications ?Medication ?Instructions ?Recorded ?Confirmed ?Last Taken ?Type acetaminophen 325 mg tablet 650 mg feeding tube Q4H PRN Fever 01/02/23 01/27/24 09/22/23 History Or Pain albuterol sulfate 2.5 mg/3 mL 2.5 mg inhalation Q4H PRN 01/02/23 01/27/24 Unknown History (0.083 %) solution for nebulization Shortness Of Breath Or Wheezing ascorbic acid (vitamin C) 250 mg 250 mg feeding tube DAILY 01/02/23 01/27/24 09/22/23 History tablet atovaquone 750 mg/5 mL oral 750 mg feeding tube BIDWM 01/02/23 01/27/24 09/22/23 History suspension baclofen 10 mg tablet 5 mg feeding tube 01/02/23 01/27/24 09/22/23 History TID@0900,1300,1700 bisacodyl 10 mg rectal suppository 10 mg OH DAILY PRN Constipation 01/02/23 01/27/24 Unknown History cholecalciferol (vitamin D3) 1,250 1,250 mcg feeding tube QMONTH 01/02/23 01/27/24 08/29/23 History mcg (50,000 unit) tablet finasteride 5 mg tablet 5 mg feeding tube DAILY 01/02/23 01/27/24 09/22/23 History glycopyrrolate 1 mg tablet 0.5 mg feeding tube BID 01/02/23 01/27/24 09/22/23 History guaifenesin 200 mg/5 mL oral liquid 200 mg feeding tube Q4H PRN Cough 01/02/23 01/27/24 Unknown History lacosamide 200 mg tablet 200 mg feeding tube BID 01/02/23 01/27/24 09/22/23 History leucovorin calcium 25 mg tablet 25 mg feeding tube BEDTIME 01/02/23 01/27/24 09/22/23 History loperamide 2 mg capsule 2 mg feeding tube Q4H PRN Diarrhea 01/02/23 01/27/24 Unknown History lorazepam 0.5 mg tablet 0.5 mg feeding tube Q6H PRN Anxiety 01/02/23 01/27/24 09/22/23 History lorazepam 2 mg/mL injection 2 mg IM ONCE PRN Seizures 01/02/23 01/27/24 Unknown History solution magnesium hydroxide 400 mg/5 mL 30 ml feeding tube DAILY PRN 01/02/23 01/27/24 Unknown History oral suspension (Milk of Magnesia) Constipation melatonin 3 mg tablet 3 mg feeding tube BEDTIME 01/02/23 01/27/24 09/22/23 History morphine 10 mg/5 mL oral solution 5 mg feeding tube DAILY 01/02/23 01/27/24 09/22/23 History ondansetron HCl 2 mg/mL 4 mg IM Q4H PRN Nausea And Vomiting 01/02/23 01/27/24 Unknown History intravenous solution ondansetron HCl 4 mg tablet 4 mg feeding tube DAILY 01/02/23 01/27/24 Unknown History oxycodone 5 mg tablet 5 mg feeding tube Q4H PRN Pain 01/02/23 01/27/24 09/22/23 10:02 History (Scale Score 4-6) scopolamine base 1 mg over 3 days 1 patch transdermal Q3D 01/02/23 01/27/24 09/22/23 History transdermal patch sennosides 8.6 mg-docusate sodium 2 tab-cap PO BID@0900,1700 01/02/23 01/27/24 09/22/23 History 50 mg tablet (Senna with Docusate Constipation Sodium) sodium phosphates 19 gram-7 118 ml OH DAILY PRN Constipation 01/02/23 01/27/24 Unknown History gram/118 mL enema (Fleet Enema) tramadol 50 mg tablet 50 mg feeding tube Q4H PRN Pain 01/02/23 01/27/24 Unknown History (Scale Score 1-3) zinc sulfate 50 mg zinc (220 mg) 50 mg feeding tube DAILY 01/02/23 01/27/24 09/22/23 History tablet multivitamin 1 tab feeding tube DAILY 01/31/23 01/27/24 09/22/23 History pyrimethamine 25 mg tablet 50 mg feeding tube DAILY 01/31/23 01/27/24 09/22/23 History betamethasone dipropionate 0.05 % 1 appl topical DAILY 06/04/23 01/27/24 09/22/23 History topical ointment carboxymethylcellulose sodium 0.25 2 drp ophthalmic (eye) BID 06/04/23 01/27/24 09/22/23 History % eye drops morphine 10 mg/5 mL oral solution 2.5 mg feeding tube TID 06/04/23 01/27/24 09/22/23 History sucralfate 1 gram tablet 1 g PO BID@1300,1700 06/04/23 01/27/24 09/22/23 History acetylcysteine 200 mg/mL (20 %) 30 ml inhalation Q12H PRN THICK 09/22/23 01/27/24 Unknown History solution AIRWAY SECRETION ibuprofen 600 mg tablet 600 mg PO Q8H PRN FEVER 09/22/23 01/27/24 Unknown History UNRESPONSIVE TO APAP linaclotide 145 mcg capsule 145 mcg G-tube DAILY 01/27/24 01/27/24 Unknown History (Linzess) loratadine 10 mg tablet 10 mg feeding tube DAILY 01/27/24 01/27/24 Unknown History midodrine 5 mg tablet 5 mg PO TID 01/27/24 01/27/24 Unknown History omeprazole 20 mg capsule,delayed 20 mg feeding tube BID 01/27/24 01/27/24 Unknown History release polyethylene glycol 3350 17 gram 17 g feeding tube DAILY 01/27/24 01/27/24 Unknown History oral powder packet (Miralax) simethicone 80 mg chewable tablet 80 mg feeding tube Q6H 01/27/24 01/27/24 Unknown History Physical Exam Vital Signs: Vital Signs: Last Vital Signs Temp 97.3 F 01/30/24 15:41 Pulse 86 01/30/24 15:41 Resp 16 01/30/24 15:41 BP 95/52 L 01/30/24 15:41 Pulse Ox 96 01/30/24 15:41 O2 Del Method Trach Collar 01/30/24 15:41 O2 Flow Rate 6 01/30/24 15:41 FiO2 100 01/29/24 16:00 Oxygen Flow Rate 6 01/27/24 17:16 BMI result Body Mass Index 20.3 Const: General: cooperative HEENT: Head: Yes normal to inspection Face and sinus: Yes normal facial exam Mouth: Normal oral and palatal mucosa present Teeth and gingiva: dentition normal Eyes: General: appearance normal, both eyes and all related structures Pupils: Equal, round and reactive pupils present Resp: Effort & Inspection: normal respiratory effort Cardio: Rate: regular rate Rhythm: regular rhythm GI: Palpation (GI): Soft to palpation and nontender : General: Yes no CVA tenderness Back/Spine/Pelvis: Back: no CVA tenderness Skin: General skin exam: no rashes or lesions noted Neuro: General: moves all extremities Cranial nerves: Yes Equal, round and reactive pupils present Extrem: General: Yes normal to inspection Psych: Other: baseline Results Labs 01/30/24 06:13 01/30/24 06:13 Labs: Short CBC 01/30/24 Range/Units 06:13 WBC 6.1 (4.8-10.8) X10*3/uL Hgb 9.7 L (14.0-18.0) g/dl Hct 29.5 L (42.0-52.0) % Plt Count 120 L (160-400) X10*3/uL BMP 01/30/24 06:13 Sodium 143 Potassium 3.5 Chloride 107 Carbon Dioxide 28 BUN 13 Creatinine 0.95 Calcium 9.1 Microbiology Microbiology Results: Microbiology 01/27/24 Unknown Urine clean catch - Urine mcclendon top Urine Culture - Final Escherichia coli 01/27/24 17:36 Blood - Venous Blood Culture - Final Escherichia coli 01/27/24 17:36 Blood - Venous Blood Culture - Final Coag negative Staphylococcus Assessment and Plan (1) Chronic hypoxic respiratory failure: Status: Acute (2) Tracheostomy dependent: Status: Acute (3) Acute UTI: Status: Acute (4) Sepsis: Status: Acute Plan He has ESBL bacteremia/sepsis/no gross obstruction Change to po Bactrim bid on discharge for 14 d total. Consider Urology followup.
[2024-01-30] MEDS: Melatonin 3 MG TABLET G-TUBE (21:00)
[2024-01-30] MEDS: Enoxaparin Sodium 40 MG/0.4 ML SYRINGE SUBCUT (23:58)
[2024-01-31] MEDS: Scopolamine 1.5 MG PATCH.TD.3 TRANSDERMA (00:38)
[2024-01-31 03:22] VITALS: BP 122/77; PULSE 85; RESP 18; TEMP 37; O2SAT 97
[2024-01-31] MEDS: Simethicone 80 MG TAB.CHEW G-TUBE ×3 (06:17→17:36)
[2024-01-31 06:43] LABS: Hematocrit 29.9 % (42.0-52.0); Mean Corpuscular HGB Conc 33.4 g/dl (31.0-36.0); Mean Corpuscular Hemoglobin 29.8 pg (27.0-33.0); Platelet Count 131 X10*3/uL (160-400); Red Blood Count 3.36 X10*6/uL (4.60-5.80); Red Cell Distribution Width 16.2 % (11.0-16.0); White Blood Count 5.8 X10*3/uL (4.8-10.8)
[2024-01-31 06:55] LABS: Anion Gap 12 (12-20); Blood Urea Nitrogen 15 mg/dL (9-16); Calcium 8.8 mg/dL (8.4-10.2); Carbon Dioxide 27 mmol/L (22-29); Chloride 108 mmol/L (96-108); Creatinine Clr Calc Pharmacy 82.3; Estimated Glomerular Filt Rate > 60; Glucose Fasting 116 mg/dL (60-99); Sodium 143 mmol/L (135-145)
[2024-01-31 07:19] VITALS: BP 106/63; PULSE 81; RESP 18; TEMP 36.7; O2SAT 97
--- NOTE | 2024-01-31 08:33 | P.CDIM_ITS ---
PROVIDER RESPONSE TEXT: To clarify, the appropriate diagnosis supported by the clinical indicators: Yes, UTI is related to / associated with / due to chronic urinary catheter QUERY TEXT: PHYSICIAN'S DOCUMENTATION REQUEST Date of Query: 01/31/2024 07:08 AM EDT Patient Name: Marino Kaminski Admit Date: 01/28/2024 Dear Joe Dumont, A review of the medical record indicates additional documentation may be needed. Please review below and update the documentation accordingly. Documentation includes the conditions of UTI and chronic urinary catheter. Clinical Indicators: On IV Meropenem 1 gm in Sodium Chloride 100 mls @ 200 mls/hr Q8H Please clarify the relationship between these conditions: Yes, UTI is related to / associated with / due to chronic urinary catheter No, UTI is not related to / associated with / due to chronic urinary catheter Other (explain) Clinically unable to determine (explain) Thank you, Thuy Norton RN Use of terms such as suspected, likely, concern for, or probable (associated with a specific diagnosi s that is being evaluated, monitored, or treated as if it exists) are acceptable and can be coded in the inpatient se tting, when documented at the time of discharge. Please use your independent medical judgment in providing your response. THIS QUERY IS PART OF THE PERMANENT MEDICAL RECORD
--- NOTE | 2024-01-31 08:33 | P.CDIM_ITS ---
PROVIDER RESPONSE TEXT: To clarify, the appropriate diagnosis supported by the clinical indicators: Moderate QUERY TEXT: PHYSICIAN'S DOCUMENTATION REQUEST Date of Query: 01/31/2024 07:16 AM EDT Patient Name: Marino Kaminski Admit Date: 01/28/2024 Dear Joe Dumont, A review of the medical record indicates additional documentation may be needed. Please review below and update the documentation accordingly. Documentation includes the diagnosis of malnutrition. Additional clinical indicators from the record include: Per Clinical Nutrition Assessment 01/30/24: Mild depletion of body fat and moderate depletion of muscle mass noted Patient with trach and PEG. Unable to take po and requires nutrition/hydration via PEG. Qualifies as moderately malnourished in the context of chronic illness. 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 Toxoplasmosis Tolerating tube feed at 50 ml/hr Recommend increase tube feeding to max goal rate as able If possible, please provide additional specificity regarding the severity of the malnutrition using t he above information: Mild Moderate Severe Other (explain) Clinically unable to determine (explain) Thank you, Thuy Norton RN Use of terms such as suspected, likely, concern for, or probable (associated with a specific diagnosi s that is being evaluated, monitored, or treated as if it exists) are acceptable and can be coded in the inpatient se tting, when documented at the time of discharge. Please use your independent medical judgment in providing your response. THIS QUERY IS PART OF THE PERMANENT MEDICAL RECORD
--- NOTE | 2024-01-31 08:37 | HO.PM.IMPN ---
Subjective Subjective Date of Service: 01/31/24 Interval History: no copmlaints Physical Exam Vital Signs: Vital Signs: Last Vital Signs Temp 98.0 F 01/31/24 07:19 Pulse 81 01/31/24 07:19 Resp 18 01/31/24 07:19 BP 106/63 01/31/24 07:19 Pulse Ox 97 01/31/24 07:19 O2 Del Method Trach Collar 01/31/24 07:19 O2 Flow Rate 6 01/31/24 07:19 FiO2 100 01/29/24 16:00 Oxygen Flow Rate 6 01/27/24 17:16 BMI result Body Mass Index 20.3 Const: General: cooperative HEENT: Head: Yes normal to inspection Face and sinus: Yes normal facial exam Mouth: Normal oral and palatal mucosa present Teeth and gingiva: dentition normal Eyes: General: appearance normal, both eyes and all related structures Pupils: Equal, round and reactive pupils present Resp: Effort & Inspection: normal respiratory effort Cardio: Rate: regular rate Rhythm: regular rhythm GI: Palpation (GI): Soft to palpation and nontender : General: Yes no CVA tenderness Back/Spine/Pelvis: Back: no CVA tenderness Skin: General skin exam: no rashes or lesions noted Neuro: General: moves all extremities Cranial nerves: Yes Equal, round and reactive pupils present Extrem: General: Yes normal to inspection Psych: Other: baseline Objective Data Active Medications Acetaminophen (Acetaminophen 325 Mg Tablet) 650 mg G-TUBE Q4H PRN PRN Reason: Fever Or Pain Last Admin: 01/30/24 03:53 Dose: 650 mg Documented By: SONIA Acetylcysteine (Acetylcysteine 20 % 6,000 Mg/30 Ml Vial) 6,000 mg INHALE Q12H PRN PRN Reason: THICK AIRWAY SECRETION Albuterol Sulfate (Albuterol Sulfate (0.083%) 2.5 Mg/3 Ml Vial.Neb) 2.5 mg INHALE Q4H PRN PRN Reason: Shortness Of Breath Or Wheezing Ascorbic Acid (Ascorbic Acid 250 Mg Tablet) 250 mg G-TUBE DAILY [facility] Last Admin: 01/30/24 09:34 Dose: 250 mg Documented By: MIS Atovaquone (Atovaquone 750 Mg/5 Ml Oral.Susp) 750 mg G-TUBE BIDWM [facility] Last Admin: 01/30/24 17:09 Dose: 750 mg Documented By: MIS Baclofen (Baclofen 10 Mg Tablet) 5 mg G-TUBE TID@0900,1300,1700 [facility] Last Admin: 01/30/24 17:09 Dose: 5 mg Documented By: MIS Bisacodyl (Bisacodyl 10 Mg Supp.Rect) 10 mg NV DAILY PRN PRN Reason: Constipation Enoxaparin Sodium (Enoxaparin Sodium 40 Mg/0.4 Ml Syringe) 40 mg SUBCUT Q24H [facility] Last Admin: 01/30/24 23:58 Dose: 40 mg Documented By: SONIA Finasteride (Finasteride 5 Mg Tablet) 5 mg PO DAILY [facility] Last Admin: 01/30/24 09:35 Dose: 5 mg Documented By: MIS Glycopyrrolate (Glycopyrrolate 1 Mg Tablet) 0.5 mg G-TUBE BID [facility] Last Admin: 01/30/24 20:59 Dose: 0.5 mg Documented By: SONIA Guaifenesin (Guaifenesin 200 Mg/10 Ml 10 Ml Liquid) 10 ml G-TUBE Q4H PRN PRN Reason: Cough Meropenem 1 gm/ Sodium (Chloride) 100 mls @ 200 mls/hr IV Q8H [facility] Last Infusion: 01/31/24 01:08 Dose: Infused Documented By: SONIA Lacosamide (Lacosamide 100 Mg Tablet) 200 mg G-TUBE BID [facility] Last Admin: 01/30/24 21:00 Dose: 200 mg Documented By: SONIA Loperamide HCl (Loperamide Hcl 2 Mg Capsule) 2 mg G-TUBE Q4H PRN PRN Reason: Diarrhea Loratadine (Loratadine 10 Mg Tablet) 10 mg G-TUBE DAILY [facility] Last Admin: 01/30/24 09:34 Dose: 10 mg Documented By: MIS Lorazepam (Lorazepam 0.5 Mg Tablet) 0.5 mg G-TUBE Q6H PRN PRN Reason: Anxiety Lorazepam (Lorazepam 2 Mg/Ml Vial) 2 mg IM ONCE PRN PRN Reason: Seizures Magnesium Hydroxide (Milk Of Magnesia 30 Ml Oral.Susp) 30 ml G-TUBE DAILY PRN PRN Reason: Constipation Melatonin (Melatonin 3 Mg Tablet) 3 mg G-TUBE BEDTIME [facility] Last Admin: 01/30/24 21:00 Dose: 3 mg Documented By: SONIA Midodrine (Midodrine Hcl 5 Mg Tablet) 5 mg PO TID [facility] Last Admin: 01/30/24 21:00 Dose: 5 mg Documented By: SONIA Morphine Sulfate (Morphine Sulfate Oral Cady 10 Mg/5 Ml Solution) 2.5 mg G-TUBE TID [facility] Last Admin: 01/30/24 21:00 Dose: 2.5 mg Documented By: SONIA Morphine Sulfate (Morphine Sulfate Oral Cady 10 Mg/5 Ml Solution) 5 mg G-TUBE DAILY [facility] Last Admin: 01/30/24 09:36 Dose: 5 mg Documented By: MIS Multivitamins/Vitamin C (Multivitamin Tablet) 1 tab PO DAILY [facility] Last Admin: 01/30/24 09:34 Dose: 1 tab Documented By: MIS Non-Formulary Medication (Linaclotide [Linzess]) 145 mcg G-TUBE DAILY [facility] Non-Formulary Medication (Cholecalciferol (Vitamin D3)) 1,250 mcg G-TUBE Q30D [facility] Omeprazole (Omeprazole 20 Mg Capsule.Dr) 20 mg PO BID [facility] Last Admin: 01/30/24 21:00 Dose: 20 mg Documented By: SONIA Ondansetron HCl (Ondansetron Hcl 4 Mg/2 Ml Vial) 4 mg IVPUSH Q8H PRN PRN Reason: Nausea and Vomiting Oxycodone HCl (Oxycodone Hcl Immed Release 5 Mg Tablet) 5 mg G-TUBE Q4H PRN PRN Reason: Pain (Scale Score 4-6) Polyethylene Glycol (Polyethylene Glycol 3350 17 Gm Powd.Pack) 17 gm G-TUBE DAILY [facility] Last Admin: 01/30/24 09:34 Dose: 17 gm Documented By: MIS Scopolamine (Scopolamine 1.5 Mg Patch.Td.3) 1.5 mg TRANSDERMA Q3D [facility] Last Admin: 01/31/24 00:38 Dose: 1.5 mg Documented By: SONIA Senna/Docusate Sodium (Sennosides/Docusate Sodium Tablet) 2 tab PO BID@0900,1700 [facility] Last Admin: 01/30/24 17:09 Dose: 2 tab Documented By: MIS Simethicone (Simethicone 80 Mg Tab.Chew) 80 mg G-TUBE Q6H [facility] Last Admin: 01/31/24 06:17 Dose: 80 mg Documented By: SONIA Sodium Biphosphate/Sodium Phosphate (Sodium Phosphate,[place]-Dibasic 133 Ml Enema) 118 ml NV DAILY PRN PRN Reason: Constipation Sodium Chloride (0.9 % Sodium Chloride Flush 3 Ml Syringe) 3 ml IVFLUSH QSHIFT [facility] Last Admin: 01/30/24 21:01 Dose: 3 ml Documented By: SONIA Sucralfate (Sucralfate 1 Gm Tablet) 1 gm PO BID@1300,1700 [facility] Last Admin: 01/30/24 17:09 Dose: 1 gm Documented By: MIS Tramadol HCl (Tramadol Hcl 50 Mg Tablet) 50 mg G-TUBE Q4H PRN PRN Reason: Pain (Scale Score 1-3) Trimethoprim/Sulfamethoxazole (Sulfameth/Trimet 800/160/20 Ml 20 Ml Oral.Susp) 20 ml G-TUBE BID [facility] Last Admin: 01/30/24 20:58 Dose: 20 ml Documented By: SONIA Zinc Sulfate (Zinc Sulfate 220 Mg Capsule) 220 mg G-TUBE DAILY [facility] Last Admin: 01/30/24 09:34 Dose: 220 mg Documented By: MIS Labs 01/31/24 05:29 01/31/24 05:29 Labs: Laboratory Results - last 24 hr 01/31/24 05:29 MCV 89.0 MCH 29.8 MCHC 33.4 RDW 16.2 H Plt Count 131 L MPV 10.0 Absolute Nucleated RBC 0.000 Nucleated RBC % (auto) 0.0 Anion Gap 12 Estim Creat Clear Calc 82.3 Estimated GFR > 60 Fasting Glucose 116 H Calcium 8.8 Microbiology Microbiology Results: Microbiology 01/30/24 06:13 Blood Culture - Preliminary Blood - Venous No growth after 24 hours. 01/30/24 06:13 Blood Culture - Preliminary Blood - Venous No growth after 24 hours. 01/27/24 Unknown Urine Culture - Final Urine clean catch - Urine mcclendon top Escherichia coli 01/27/24 17:36 Blood Culture - Final Blood - Venous Escherichia coli Assessment and Plan (1) Acute metabolic encephalopathy: Status: Acute (2) Acute UTI: Status: Acute Plan d4 53yo M long-term resident at [facility] with chronic resp failure s/p tracheostomy + PEG, stage IV mantle cell lymphoma, [employer] toxoplasmosis due to immunosuppression, BPH with chronic urinary catheter, seizure disorder, and hx ESBL bacteremia sent in due to AMS + fever to 102 found to be septic with evidence of UTI + PNA, ultimately found to have bacteremia sepsis due to esbl ecoli bacteremia from UTI due to chronic rincon -01/26- meropenem, on discharge complete 2 weeks bactrim ileus restarted tube feeds, appears to be tolerated, abd soft PNA meropenem as above, trend PCT, urinary antigens for Legionella and pneumococcus + MRSA swab pending septic encephalopathy treat infections as above prerenal TAMMY resolved s/p IV fluids hyperNa resolved cerebral toxoplasmosis continue atovaquone; unable to get pyrimethamine + leucovorin from his long-term facility so substituting TMP-SMX chronic respiratory failure s/p tracheostomy + PEG tracheostomy care, suctioning continue PEG tube feeds scopolamine patch + glycopyrrolate for secretions paraparesis airloss mattress, turning q2h, offload all bony prominences with use of pillows, wedges, and heel boots gluteal decubitus ulcers Wound Care consult pending BPH - chronic Rincon, continue finasteride seizure disorder continue lacosamide GERD continue PPI contractures continue baclofen VTE ppx LMWH dispo eventual return to [facility] reason for continued hospitalization:fevers Total time managing care of this patient today: 45 minutes. Quality Stroke Does the patient have a stroke diagnosis?: No VTE Prior VTE?: No VTE Risk Level:: Medical - moderate - high VTE Device Contraindication: Treatment Not Indicated VTE Drug Contraindication: N/A - Med Ordered
[2024-01-31] MEDS: Atovaquone 750 MG/5 ML ORAL.SUSP G-TUBE ×2 (08:59→17:36)
[2024-01-31] MEDS: Sulfameth/Trimet 800/160/20 ML 20 ML ORAL.SUSP G-TUBE ×2 (08:59→21:57)
[2024-01-31] MEDS: Morphine Sulfate Oral Sol 10 MG/5 ML SOLUTION 2.5 MG G-TUBE ×3 (09:00→22:00)
[2024-01-31] MEDS: Morphine Sulfate Oral Sol 10 MG/5 ML SOLUTION 5 MG G-TUBE (09:00)
[2024-01-31] MEDS: polyethylene glycoL 3350 17 GM POWD.PACK G-TUBE (09:07)
[2024-01-31] MEDS: Omeprazole 20 MG CAPSULE.DR PO (09:08)
[2024-01-31] MEDS: Finasteride 5 MG TABLET PO (09:08)
[2024-01-31] MEDS: Ascorbic Acid 250 MG TABLET G-TUBE (09:09)
[2024-01-31] MEDS: Sennosides/Docusate Sodium TABLET 2 TAB PO ×2 (09:09→17:36)
[2024-01-31] MEDS: Lacosamide 100 MG TABLET 200 MG G-TUBE ×2 (09:09→21:57)
[2024-01-31] MEDS: Midodrine HCl 5 MG TABLET PO ×2 (09:10→15:27)
[2024-01-31] MEDS: Multivitamin TABLET 1 TAB PO (09:10)
[2024-01-31] MEDS: Baclofen 10 MG TABLET 5 MG G-TUBE ×3 (09:11→17:36)
[2024-01-31] MEDS: Loratadine 10 MG TABLET G-TUBE (09:11)
[2024-01-31] MEDS: Zinc Sulfate 220 MG CAPSULE G-TUBE (09:11)
[2024-01-31] MEDS: Glycopyrrolate 1 MG TABLET 0.5 MG G-TUBE ×2 (09:12→21:57)
[2024-01-31] MEDS: 0.9 % Sodium Chloride Flush 3 ML SYRINGE IVFLUSH ×2 (09:21→15:38)
[2024-01-31] MEDS: Sucralfate 1 GM TABLET PO ×2 (13:08→17:36)
[2024-01-31 15:33] VITALS: BP 100/65; PULSE 94; RESP 20; TEMP 36.6; O2SAT 97
[2024-01-31 20:00] VITALS: BP 103/68; PULSE 81; RESP 16; TEMP 36.7; O2SAT 97
[2024-01-31] MEDS: Melatonin 3 MG TABLET G-TUBE (21:57)
[2024-01-31] MEDS: Enoxaparin Sodium 40 MG/0.4 ML SYRINGE SUBCUT (22:01)
[2024-02-01] MEDS: 0.9 % Sodium Chloride Flush 3 ML SYRINGE IVFLUSH ×2 (01:15→10:44)
[2024-02-01] MEDS: Simethicone 80 MG TAB.CHEW G-TUBE ×3 (01:16→10:42)
[2024-02-01 04:00] VITALS: BP 110/67; PULSE 85; RESP 18; TEMP 36.3; O2SAT 97
--- NOTE | 2024-02-01 06:35 | PC.NURSE ---
PATIENT RESTED WELL, HOB UP, REPOSITIONED, INCONTINENT TO A [place] CATHETER, ALSO INCONTINENT TO A SCANT STOOL. FOAM C-D-I LEFT HIP, SKIN FRAGILE TO BUTTOCKS, REPOSITIONED, AIR LOSS MATTRESS, SKIN CARE. SEIZURE PRECAUTIONS MAINTAINED. PEG FEEDING ORDERED, RESIDUAL 10ML, WATER FLUSHES PER PUMP, OSMOLITE AT 60ML/HR PER MAX GOAL. ALL MEDICATIONS WITH WATER THRU GT, BABITA WELL. PT NOTED TO COUGH OUT THRU TRACH MODERATE AMOUNT OF THICK CREAM SECRETIONS AT 0545, PRIOR SCANT AMOUNTS REMOVED FROM OUTER CANNULA WITH BETTE. TRACH DRESSING CHANGED TIMES 2, SKIN CLEANSED AND DRIED, MOUTH CARE PROVIDED. OXYGEN VIA TRACH MASK AT 40% CONTINUOUSLY. DEEP SUCTION X 2 PROVIDED 0615 BY RESP THERAPIST FOR SMALL AMOUNTS OF THICK CREAM SECRETIONS, PT BABITA WELL. BOOTS WORN SPENSER FEET, PILLOWS UTILIZED DUE TO CONTRACTURES OF LEGS AND LEFT ARM. CONT TO MONITOR CLOSELY. NO S/SX RESP DISTRESS.
[2024-02-01 06:43] LABS: Creatinine Clr Calc Pharmacy 78.8; Estimated Glomerular Filt Rate > 60
[2024-02-01 07:37] VITALS: BP 112/58; PULSE 94; RESP 18; TEMP 36.6; O2SAT 94
[2024-02-01 07:48] VITALS: PULSE 94; RESP 19; O2SAT 94
--- NOTE | 2024-02-01 08:58 | P.DS_ITS ---
DS: Providers Provider Date of Service: 02/01/24 Date of admission: 01/27/24 23:20 Primary care physician: [facility] Consults: 01/28/24 02:47 Consult to Wound Care Routine Reason for consultation: presented with ulcer on the right hip 01/28/24 15:43 Consult to General Surgery Routine Consulting Provider: [facility] General Surgeons Reason for consultation: ?Keira syndrome or ?ileus- see CT Consult to Infectious Diseases Routine Consulting Provider: [facility] Infectious Disease Center Reason for consultation: GNR + GPC bacteremia 01/30/24 08:17 Consult to Pulmonology Routine Consulting Provider: [facility] Pulmonology Services Reason for consultation: due for trach change DS: Diagnosis Discharge Diagnosis (1) Acute metabolic encephalopathy: Status: Acute (2) Acute UTI: Status: Acute DS: Summary Hospital Course Hospital Course: from initial hpi: 3-year-old male with a PMH significant for?stage IV mantle cell lymphoma, [employer] 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 Pt is nonverbal and bedbound at baseline and incapable of providing HPI. In the ED pt had low-grade fever up to 100.4 and tachycardia up to 103. Labs were significant for WBC of 9.7 (up from 3.6 on 01/06/2024 and 5.5 on 01/25/2024) and creatinine of 1.28 (up from 0.86 on 01/25/2024), otherwise grossly unremarkable. Stable H&H. No significant electrolyte abnormalities. Lactic acid WNL at 0.9. Hepatic function baseline. UA positive for UTI. Tested negative for flu, RSV, COVID. CXR showed small right lower lobe opacity for which an infection can not be excluded. Pt was treated with 2 L IVF intramural panel. Pt will be admitted to the hospital for treatment and further evaluation of acute metabolic encephalopathy in the setting of UTI. hospital course: Patient was admitted for sepsis due to ESBL E coli bacteremia from UTI due to chronic Rubio. He was treated with meropenem, sepsis resolved, was seen by infectious disease who recommended completing 2 weeks of Bactrim on discharge. Course was complicated by ileus, feeds were held, ileus seems to have resolved and patient now tolerating feeds. Patient also noted to have pneumonia which was treated with ertapenem and will continue with Bactrim treatment as noted. Course complicated by acute metabolic encephalopathy likely due to sepsis which has resolved. Acute kidney injury which resolved with IV fluids. Hypernatremia which resolved. 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 For chronic respiratory failure status post tracheostomy and PEG was continued on scopolamine and glycopyrrolate, tracheostomy was replaced on 01/30/2024. 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 For BPH was continued on finasteride and chronic Rubio. For seizure disorder was continued on Vimpat. For GERD was continued on PPI for contractures on baclofen. Patient is medically stable will be discharged back to [facility] Time Attestation Discharge Coordination Time (in mins): 33 Quality: Safe Use of Opioids Does Pt have an Active Cancer Diagnosis on the Problem List?: No Quality: Stroke Does the patient have a stroke diagnosis?: No Physical Exam Vital Signs: Vital Signs: Last Vital Signs Temp 97.9 F 02/01/24 07:37 Pulse 94 02/01/24 07:37 Resp 18 02/01/24 07:37 BP 112/58 L 02/01/24 07:37 Pulse Ox 94 02/01/24 07:37 O2 Del Method Trach Collar 02/01/24 07:37 O2 Flow Rate 8 02/01/24 07:37 FiO2 100 01/29/24 16:00 Oxygen Flow Rate 6 01/27/24 17:16 BMI result Body Mass Index 20.3 Const: General: cooperative HEENT: Head: Yes normal to inspection Face and sinus: Yes normal facial exam Mouth: Normal oral and palatal mucosa present Teeth and gingiva: dentition normal Eyes: General: appearance normal, both eyes and all related structures Pupils: Equal, round and reactive pupils present Resp: Effort & Inspection: normal respiratory effort Cardio: Rate: regular rate Rhythm: regular rhythm GI: Palpation (GI): Soft to palpation and nontender : General: Yes no CVA tenderness Back/Spine/Pelvis: Back: no CVA tenderness Skin: General skin exam: no rashes or lesions noted Neuro: General: moves all extremities Cranial nerves: Yes Equal, round and reactive pupils present Extrem: General: Yes normal to inspection Psych: Other: baseline DS: Data Data Completed and Pending Completed studies during hospitalization [Text1]: Procedures Change Tracheostomy Device in Trachea, External Approach (01/31/23) Drainage of Left Knee Joint, Open Approach (09/22/23) Drainage of Left Knee Joint, Percutaneous Approach (09/22/23) Excision of Lower Esophagus, Via Natural or Artificial Opening Endoscopic, Diagnostic (01/31/23) Insertion of Infusion Device into Right Basilic Vein, Percutaneous Approach (09/22/23) Insertion of Infusion Device into Superior Vena Cava, Percutaneous Approach (01/02/23) Ultrasonography of Superior Vena Cava, Guidance (01/02/23) Labs on day of discharge: Laboratory Results - last 24 hr 02/01/24 05:25 Hold Purple Top SEE NOTE Creatinine 0.95 Estim Creat Clear Calc 78.8 Estimated GFR > 60 Preliminary micro results at discharge 01/30/24 06:13 Blood Culture - Preliminary Blood - Venous No growth after 48 hours. 01/30/24 06:13 Blood Culture - Preliminary Blood - Venous No growth after 48 hours. Discharge Plan Discharge Anticipated Discharge Date/Time: 02/01/24 08:55 Patient Disposition: Xfer [facility] Discharge Diagnosis: sepsis, uti Referrals: [facility] [Primary Care Provider] - 1 Week Discharge Medications: New sulfamethoxazole-trimethoprim 200-40 mg/5 mL Suspension 20 ml G-tube BID 12 Days Qty: 480 0RF Continued glycopyrrolate 1 mg Tablet 0.5 mg feeding tube BID leucovorin calcium 25 mg Tablet 25 mg feeding tube BEDTIME melatonin 3 mg Tablet 3 mg feeding tube BEDTIME ascorbic acid (vitamin C) 250 mg Tablet 250 mg feeding tube DAILY baclofen 10 mg Tablet 5 mg feeding tube TID@0900,1300,1700 finasteride 5 mg Tablet 5 mg feeding tube DAILY atovaquone 750 mg/5 mL Suspension 750 mg feeding tube BIDWM Rx Instructions: must administer with food, preferably a high-fat meal lacosamide 200 mg Tablet 200 mg feeding tube BID cholecalciferol (vitamin D3) 1,250 mcg (50,000 unit) Tablet 1,250 mcg feeding tube QMONTH Rx Instructions: MONTHLY ON DAY 15 OF THE MONTH acetaminophen 325 mg Tablet 650 mg feeding tube Q4H PRN (Reason: Fever Or Pain) Rx Instructions: Fever >100.5 albuterol sulfate 2.5 mg /3 mL (0.083 %) Solution For Nebulization 2.5 mg INHALATION Q4H PRN (Reason: Shortness Of Breath Or Wheezing) loperamide 2 mg Capsule 2 mg feeding tube Q4H PRN (Reason: Diarrhea) Rx Instructions: administer after each loose stool until symptoms controlled; do not exceed 8 mg per 24 hrs ondansetron HCl 2 mg/mL Solution 4 mg IM Q4H PRN (Reason: Nausea And Vomiting) Rx Instructions: IF NO RELIEF FROM PO ondansetron HCl 4 mg Tablet 4 mg feeding tube DAILY sennosides-docusate sodium [Senna with Docusate Sodium] 8.6-50 mg Tablet 2 tab-cap PO BID@0900,1700 Rx Instructions: G-TUBE tramadol 50 mg Tablet 50 mg feeding tube Q4H PRN (Reason: Pain (Scale Score 1-3)) zinc sulfate 50 mg zinc (220 mg) Tablet 50 mg feeding tube DAILY lorazepam 0.5 mg Tablet 0.5 mg feeding tube Q6H PRN (Reason: Anxiety) magnesium hydroxide [Milk of Magnesia] 400 mg/5 mL Suspension 30 ml feeding tube DAILY PRN (Reason: Constipation) Rx Instructions: If no BM after 3 days bisacodyl 10 mg Suppository 10 mg NH DAILY PRN (Reason: Constipation) Rx Instructions: If no BM after 8 hours following MOM X1 dose [place] Enema 19-7 gram/118 mL Enema 118 ml NH DAILY PRN (Reason: Constipation) Rx Instructions: If No BM in 1 hour after Bisacodyl supp X1 dose morphine 10 mg/5 mL Solution 5 mg feeding tube DAILY scopolamine base 1 mg over 3 days Patch 3 Day 1 patch TRANSDERMAL Q3D oxycodone 5 mg Tablet 5 mg feeding tube Q4H PRN (Reason: Pain (Scale Score 4-6)) guaifenesin 200 mg/5 mL Liquid 200 mg feeding tube Q4H PRN (Reason: Cough) lorazepam 2 mg/mL Solution 2 mg IM ONCE PRN (Reason: Seizures) Rx Instructions: 2 mg intramuscularly as directed for seizure >2 minutes multivitamin Tablet 1 tab feeding tube DAILY pyrimethamine 25 mg Tablet 50 mg feeding tube DAILY sucralfate 1 gram Tablet 1 g PO BID@1300,1700 Rx Instructions: Give 1 hour after feedings finish and 1 hour before staring feedings carboxymethylcellulose sodium 0.25 % Drops 2 drp OPHTHALMIC (EYE) BID morphine 10 mg/5 mL Solution 2.5 mg feeding tube TID betamethasone dipropionate 0.05 % Ointment 1 appl TOPICAL DAILY Rx Instructions: left buttock wound acetylcysteine 200 mg/mL (20 %) Solution 30 ml INHALATION Q12H PRN (Reason: THICK AIRWAY SECRETION) ibuprofen 600 mg Tablet 600 mg PO Q8H PRN (Reason: FEVER UNRESPONSIVE TO APAP) loratadine 10 mg Tablet 10 mg feeding tube DAILY Linzess 145 mcg Capsule 145 mcg G-tube DAILY polyethylene glycol 3350 [Miralax] 17 gram Powder In Packet 17 g feeding tube DAILY Rx Instructions: mix in 8 oz of fluid ( not mix with starch-thickened liquids) omeprazole 20 mg Capsule,Delayed Release(Dr/Ec) 20 mg feeding tube BID simethicone 80 mg Tablet,Chewable 80 mg feeding tube Q6H midodrine 5 mg Tablet 5 mg PO TID Rx Instructions: do not give last dose of day after 6PM or within 4 hrs of bedtime Discharge Orders: Discharge Order (Routine); Ordered 02/01/24 Ordered By: Joe Dumont Diet: tube feeds Activity on Discharge: As tolerated Stand Alone Forms: Patient Portal Discharge page Print Language: Estonian Care Plan Goals: recovery Health Concerns: sepsis, uti Plan of Treatment: 12 more days bactrim Assessment: see above
[2024-02-01] MEDS: Sulfameth/Trimet 800/160/20 ML 20 ML ORAL.SUSP G-TUBE (10:41)
[2024-02-01] MEDS: polyethylene glycoL 3350 17 GM POWD.PACK G-TUBE (10:42)
[2024-02-01] MEDS: Atovaquone 750 MG/5 ML ORAL.SUSP G-TUBE (10:42)
[2024-02-01] MEDS: Midodrine HCl 5 MG TABLET PO (10:42)
[2024-02-01] MEDS: Omeprazole 20 MG CAPSULE.DR PO (10:42)
[2024-02-01] MEDS: Ascorbic Acid 250 MG TABLET G-TUBE (10:42)
[2024-02-01] MEDS: Lacosamide 100 MG TABLET 200 MG G-TUBE (10:43)
[2024-02-01] MEDS: Multivitamin TABLET 1 TAB PO (10:43)
[2024-02-01] MEDS: Loratadine 10 MG TABLET G-TUBE (10:43)
[2024-02-01] MEDS: Glycopyrrolate 1 MG TABLET 0.5 MG G-TUBE (10:43)
[2024-02-01] MEDS: Sennosides/Docusate Sodium TABLET 2 TAB PO (10:43)
[2024-02-01] MEDS: Zinc Sulfate 220 MG CAPSULE G-TUBE (10:43)
[2024-02-01] MEDS: Baclofen 10 MG TABLET 5 MG G-TUBE (10:44)
--- NOTE | 2024-02-01 10:44 | MHC.CM.PN ---
PT DC ARRANGED FOR TODAY AT 1 FAMILY NOTIFIED
[2024-02-01] MEDS: Morphine Sulfate Oral Sol 10 MG/5 ML SOLUTION 2.5 MG G-TUBE (11:16)
[2024-02-01] MEDS: Morphine Sulfate Oral Sol 10 MG/5 ML SOLUTION 5 MG G-TUBE (11:16)
--- NOTE | 2024-02-01 12:00 | PC.NURSE ---
Pt with large amt respiratory secretions. Cream colored and thick. Trach care and suctioned x3. Tolerated well. O2 sat 94% on 6L trach mask. Foam dressing applied to right hip wound. Cleansed with saline. Tube feedngs residual 0.
[2024-02-01 17:54] LABS: Strep Pneumo Ag urine Not Detected (Not Detected)
[2024-02-08 05:24] LABS: Legionella Ag Urine Not Detected (Not Detected)
== END 2024-02-01 13:41 | DRG 466 ==
LOC: HO.ED 17:35 → HO.EDOVER 23:22 → HO.S3 01-28 00:06
PROVIDERS: Family Medicine; Student in an Organized Health Care Education/Training Program; Admitting Provider Student in an Organized Health Care Education/Training Program; Emergency Provider Internal Medicine; Referring Provider Internal Medicine; Visit Provider Internal Medicine
DX: T83.511A Infection and inflammatory reaction due to indwelling urethral catheter, initial encounter (principal); A41.51 Sepsis due to Escherichia coli [E. coli]; G92.8 Other toxic encephalopathy; B58.89 Toxoplasmosis with other organ involvement; L89.310 Pressure ulcer of right buttock, unstageable; E44.0 Moderate protein-calorie malnutrition; C83.10 Mantle cell lymphoma, unspecified site; D84.821 Immunodeficiency due to drugs; G82.20 Paraplegia, unspecified; J18.9 Pneumonia, unspecified organism; G40.909 Epilepsy, unspecified, not intractable, without status epilepticus; K56.7 Ileus, unspecified; J96.11 Chronic respiratory failure with hypoxia; Z93.0 Tracheostomy status; Z79.60 Long term (current) use of unspecified immunomodulators and immunosuppressants; N17.9 Acute kidney failure, unspecified; E87.0 Hyperosmolality and hypernatremia; N40.1 Benign prostatic hyperplasia with lower urinary tract symptoms; R33.8 Other retention of urine; Z16.12 Extended spectrum beta lactamase (ESBL) resistance; Z74.01 Bed confinement status; Z93.1 Gastrostomy status; Z68.20 Body mass index [BMI] 20.0-20.9, adult; Z87.440 Personal history of urinary (tract) infections; Z20.822 Contact with and (suspected) exposure to COVID-19; Z79.899 Other long term (current) drug therapy
CPT/HCPCS: 0241U; 36415; 71045; 74177; 80048; 80053; 81001; 82565; 82947; 83605; 83735; 84145; 85025; 85027; 85610; 86140; 87040; 87077; 87086; 87088; 87147; 87186; 87205; 87449; 87640; 87641; 87899; 93005; 99285; C1758; J1650; J2185; J3370; J3371; P9047; Q9967

== ENCOUNTER → 2024-01-27 17:09 | Outpatient (BNV) | payer MEDICAID, SELFPAY | PROVIDERS: Admitting Provider Student in an Organized Health Care Education/Training Program; Emergency Provider Internal Medicine; Visit Provider Internal Medicine | DX: R41.82 Altered mental status, unspecified (principal) | CPT/HCPCS: 93010 ==

== ENCOUNTER → 2024-01-27 23:20 | Outpatient (BNV) | payer MEDICAID, SELFPAY | PROVIDERS: Admitting Provider Student in an Organized Health Care Education/Training Program; Emergency Provider Internal Medicine; Visit Provider Surgery | DX: N39.0 Urinary tract infection, site not specified (principal) | CPT/HCPCS: 99222; 99232 ==

== ENCOUNTER → 2024-01-27 23:20 | Outpatient (BNV) | payer MEDICAID, SELFPAY | PROVIDERS: Admitting Provider Student in an Organized Health Care Education/Training Program; Emergency Provider Internal Medicine; Visit Provider Internal Medicine | DX: J96.11 Chronic respiratory failure with hypoxia (principal); Z93.0 Tracheostomy status; N39.0 Urinary tract infection, site not specified; A41.9 Sepsis, unspecified organism | CPT/HCPCS: 99222 ==

== ENCOUNTER → 2024-01-27 23:20 | Outpatient (BNV) | payer MEDICAID, SELFPAY | PROVIDERS: Admitting Provider Student in an Organized Health Care Education/Training Program; Emergency Provider Internal Medicine; Visit Provider Internal Medicine Pulmonary Disease | DX: J96.11 Chronic respiratory failure with hypoxia (principal); Z93.0 Tracheostomy status | CPT/HCPCS: 99222 ==

== ENCOUNTER → 2024-01-27 23:20 | Outpatient (BNV) | payer MEDICAID, SELFPAY | PROVIDERS: Admitting Provider Student in an Organized Health Care Education/Training Program; Emergency Provider Internal Medicine; Visit Provider Family Medicine | DX: G93.41 Metabolic encephalopathy (principal); N39.0 Urinary tract infection, site not specified | CPT/HCPCS: 99223; 99232; 99233; 99239 ==

== ENCOUNTER 2024-02-13 13:48 | Outpatient (AMB) | payer MEDICAID, SELFPAY ==
--- NOTE | 2024-02-13 13:51 | A.OFFVIS_ITS ---
Vital Signs 02/13/24 13:54 Weight 130 lb Intake Visit Reasons: vomiting trach patient Intake Note: Marino presents in the office as a follow up for vomiting - trach patient. CC: States that he has been dealing with random vomiting - not just when he eats for his feedings. Allergies cyclobenzaprine [Flexeril] Allergy (Unknown, Verified 02/13/24 13:54) Palpitations HPI HPI vomiting trach patient: Details: 53-year-old male with dx of stage IV mantle cell lymphoma, chemo at [facility] and [employer] toxoplasmosis with tracheostomy here for f/u RECAP: Originally saw [facility] for rectal bleeding he thought it could be hemorrhoidal Bleeding stops after bowel movement completed. patient states he will has a very small amount of blood after BM Family history of colon cancer , his sister- age 48-, doing well. EGD 2022-- grade C esophagitis INTERIM: patient is non verbal no hx possible from RT with patient he has been vomiting, but not known how long for etc is on scheduled morphine TID EXAM: GENERAL: The patient is awake, non verbal VITAL SIGNS:see workflow HEENT: trachesotomy noted CHEST: Chest wall is nontender. HEART: Regular rate and rhythm without murmurs. LUNGS: Clear to auscultation bilaterally. ABDOMEN: Soft, positive bowel sounds, nontender, no organomegaly.no flank tenderness--G tube noted, SKIN: No rash, no excessive bruising, petechiae, or purpura. 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 Rectal bleeding H/O: RCT (rotator cuff tear) Depression Appendicitis Chronic pain Kidney stone Mantle cell lymphoma Surgical History History of appendectomy Family History Mother COPD (chronic obstructive pulmonary disease) Sister Colon cancer Social History 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 Housing: [facility] Housing Other:: [facility] Do you presently have visiting nurse or other home services: No Unable to assess alcohol history related to: Unable to respond Alcohol intake: unknown Patient Tobacco Use Status: Never used Tobacco Second Hand Smoke Exposure: No Substance Use Type: Unknown Advance Directives Date on File: 06/04/23 service: No Current occupational status: unemployed Assessment & Plan Assessment & Plan (1) Nausea and vomiting: Code(s): R11.2 - Nausea with vomiting, unspecified Category: Medical Plan: see above Coding Level of Care Code Est Pt Level 3 (67175) Diagnoses Nausea and vomiting R11.2
== END 2024-02-13 14:31 | disposition home or self-care (01) ==
PROVIDERS: PCP Nurse Practitioner Adult Health; Visit Provider Internal Medicine Gastroenterology
DX: R11.2 Nausea with vomiting, unspecified (principal)
CPT/HCPCS: 99213

== ENCOUNTER → 2024-02-13 13:48 | Outpatient (BNVA) | payer MEDICAID, SELFPAY | PROVIDERS: PCP Nurse Practitioner Adult Health; Visit Provider Internal Medicine Gastroenterology | DX: R11.2 Nausea with vomiting, unspecified (principal); C83.10 Mantle cell lymphoma, unspecified site; Z93.0 Tracheostomy status | CPT/HCPCS: 99212 ==

== ENCOUNTER → 2024-04-11 14:13 | Outpatient (RCR) | payer MEDICAID, SELFPAY ==
[2020-05-20 11:35] VITALS: BP 117/82; PULSE 104; RESP 18; TEMP 36.9; O2SAT 98; BMI 26.8
--- NOTE | 2020-05-20 11:49 | P.PNHO_ITS ---
Medical Summary - Medical Summary Chief complaint: Weakness, recent fever Medical Summary: Diagnosis: Mantle cell lymphoma September [address] performed 07/30/2019 demonstrated lymphadenopathy throughout all levels of suprahyoid and infrahyoid neck left greater than right. One of the lymph node measurement 2 cm. Right cervical lymph node excision biopsy performed 10/12/2019 revealed CD5 positive B-cell lymphoma consistent with mantle cell lymphoma. Small to medium size lymphocytes, large forms not identified. IHC positive for CD 20, CD 5, BCL 2 and cyclin D1. The Ki I-67 proliferation index is 15-20%. 11/16/2019-bone marrow aspirate/biopsy-involvement by mantle cell lymphoma inv olving 30-40% of bone marrow. Residual bone marrow with maturing trilineage hematopoiesis. Cellularity-60% infiltrative process. Multiple lymphoid nodules identified. IHC showed CD3 positive T-cells, CD 20 positive lymphoid infiltrate. CD5 positive in lymphoid infiltrate. Cyclin D1 positive in lymphoid infiltrate low level of lambda light chain restricted CD5 positive CD 20 positive B-cell population by flow cytometry. Increased reticulin fibrosis, no stainable iron. 11/19/2019-CT chest/abdomen/pelvis showed bilateral abnormal axillary, mesenteric, lower peritoneal, bilateral external iliac, bilateral inguinal lymph nodes consistent with lymphoma. Largest left axillary lymph node measured 2.3 x 1.3 cm. Largest mesenteric lymph node 1.9 x 1.7 x 1.9 cm. Largest right inguinal lymph node 2.3 x 1.2 x 2.6 cm. 12/07/2019-PET-CT showed multiple FDG avid lymph nodes in neck, chest, abdomen and pelvis. SUV ranging from 4.5-2.5. Referred to [facility] for chemotherapy and further management. Interval History Interval history: patient seen urgently today because of recent ER visit for subjective feeling of fever and chills. His last round of chemotherapy was on May 06, he presented to emergency department over the weekend with complaints of fever and chills. He did not have a fever in the emergency room. He underwent blood tests as well as CT chest which did not reveal any infectious source. He was empirically started on azithromycin which he is currently on. He denies a significant cough, shortness of breath, abdominal pain, diarrhea or dysuria. He has a follow-up appointment at [facility] on June 05. Review of Systems - Constitutional Reports as per HPI, Reports no additional constitutional complaints, Denies body aches, Denies chills, Reports fatigue, Reports malaise - ENT Reports no additional ear, nose, mouth, and throat complaints - Cardiovascular Reports as per HPI, Reports no additional cardiovascular complaints - Respiratory Denies cough, Denies hemoptysis, Denies dyspnea on exertion - Gastrointestinal Reports as per HPI [facility] Medical History: Medical History (Last Updated 05/20/20 @ 11:54 by Alyssa Ruiz MD) Appendicitis Chronic pain Depression H/O: RCT (rotator cuff tear) Kidney stone Mantle cell lymphoma Family History: Family History (Last Updated 05/20/20 @ 11:53 by Alyssa Ruiz MD) Mother COPD (chronic obstructive pulmonary disease) Sister Colon cancer Surgical History: Surgical History (Last Updated 05/17/20 @ 13:50 by Bonny Love DO) History of appendectomy Home Medications and Allergies Allergies Allergy/AdvReac Type Severity Reaction Status Date / Time cyclobenzaprine [Flexeril] Allergy Unknown Palpitation Verified 05/20/20 12:35 s Exam Vital signs: Vital Signs Temp 98.4 F 05/20/20 11:35 Pulse 104 H 05/20/20 11:35 Resp 18 05/20/20 11:35 BP 117/82 05/20/20 11:35 Pulse Ox 98 05/20/20 11:35 Intake & Output 05/19/20 05/20/20 05/20/20 18:59 06:59 18:59 Other: Weight 92.136 kg Weight 92.136 kg Body Mass Index 26.8 - Constitutional Present: no acute distress - Routine HEENT Exam Head: Present: normal inspection Eye: Present: EOMI, normal appearance - Routine Neck Exam Present: normal inspection. Absent: lymphadenopathy - Routine Respiratory Exam Present: CTAB - Routine Cardiovascular Exam Cardiovascular: Present: S1, S2 - Routine Abdominal Exam Present: normal bowel sounds - Routine Extremities Exam Absent: calf tenderness, joint swelling, pedal edema Data - Labs CBC & Chem 7: 05/20/20 12:23 Progress Note: A/P (1) Mantle cell lymphoma Status: Acute Assessment and plan: 1. This is a 49-year-old male with stage IV mantle cell lymphoma, MIPI score 5.5, low risk disease. He has been started on chemotherapy regimen with R- HyperCVAD at [facility] on 12/17/2019. He received about 2 cycles of R hyper CVAD, this was subsequently changed to R bendamustine because of renal toxicity. His last chemotherapy was administered on 05/06/2020 at [facility]. Patient called today wanting to be seen because of complaints of malaise and recent fever for which he was seen in the emergency room over the weekend. Examination today is benign although he is neutropenic /pancytopenic. Patient was advised about neutropenic precautions. He was advised to continue and finish course of a Zithromax. He was advised to call back if he develops any recurrent symptoms. 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 - Time Spent With Patient Total time spent is greater than 50% in coordination of care (as documented) at patient's floor/unit and/or counseling patient: 15 - 24 minutes
[2020-05-20 12:32] LABS: Basophils Percent Auto 0.6 % (0-2); Eosinophils Absolute Auto 0.1 X10*3/uL (0.0-0.4); Eosinophils Percent Auto 7.1 % (0-4); Hematocrit 26.9 % (42-52); Hemoglobin 9.6 g/dl (14.0-18.0); Imm Gran Abs Auto 0.01 X10*3/uL (0.00-0.03); Imm Gran Pct Auto 0.6 % (0.0-0.4); Lymphocytes Absolute Auto 0.4 X10*3/uL (1.2-4.9); Lymphocytes Percent Auto 23.4 % (20-40); MANUAL DIFF FLAG SCAN; Mean Corpuscular HGB Conc 35.7 g/dl (31.0-36.0); Mean Corpuscular Hemoglobin 33.2 pg (27.0-33.0); Mean Corpuscular Volume 93.1 fL (80-98); Mean Platelet Volume 9.6 fL (9.4-12.4); Monocytes Absolute Auto 0.4 X10*3/uL (0.1-1.2); Monocytes Percent Auto 27.9 % (2-11); Neutrophils Absolute Auto 0.6 X10*3/uL (2.0-8.3); Neutrophils Percent Auto 40.4 % (45-73); Platelet Count 101 X10*3/uL (160-400); Red Blood Count 2.89 X10*6/uL (4.60-5.80); Red Cell Distribution Width 13.2 % (11.0-16.0); SCAN SMEAR FLAG 1
[2020-05-20 13:09] LABS: White Blood Count 1.9 X10*3/uL (4.8-10.8)
[2020-05-20 13:10] LABS: SLIDE REVIEW VERIFIED
[2020-05-20 14:00] LABS: Alanine Aminotransferase 31 U/L (0-40); Albumin Level 3.8 g/dL (3.5-5.0); Alkaline Phosphatase 85 U/L (39-117); Anion Gap 12 (12-20); Aspartate Amino Transferase 28 U/L (5-37); Bilirubin Total 0.4 mg/dL (0.0-1.0); Blood Urea Nitrogen 16 mg/dL (9-16); Calcium 8.7 mg/dL (8.4-10.2); Carbon Dioxide 28 mmol/L (22-29); Chloride 103 mmol/L (96-108); Creatinine Clr Calc Pharmacy 75.8; Estimated Glomerular Filt Rate 56; Glucose Random 112 mg/dL (60-115); Lactate Dehydrogenase 298 U/L (118-273); Potassium 3.9 mmol/l (3.3-5.1); Sodium 139 mmol/L (135-145); Total Protein 6.2 g/dL (6.5-8.0)
--- NOTE | 2020-05-20 15:40 | MHC.HEMONC ---
pt here to see Dr Ruiz s/p ER visit and now on Zithromax. He is feeling better. Dr Ruiz reviewed labs and is aware of low wbc. He will monitor for fevers and f/u with ADRIENNE MAHMOOD.
[2020-08-26 14:56] VITALS: BP 114/73; PULSE 91; RESP 12; TEMP 36.7; O2SAT 97; BMI 26.3
--- NOTE | 2020-08-26 15:15 | MHC.HEMONCMA ---
Patient came in for a follow up today, states he is doing well. He has no complaints. His medications and allergies were reviewed.
--- NOTE | 2020-08-26 16:05 | PM.HEMONCPN ---
Medical Summary - Medical Summary Date of Service: 08/26/20 Chief complaint: Follow-up Medical Summary: Diagnosis: Mantle cell lymphoma September [address] performed 07/30/2019 demonstrated lymphadenopathy throughout all levels of suprahyoid and infrahyoid neck left greater than right. One of the lymph node measurement 2 cm. Right cervical lymph node excision biopsy performed 10/12/2019 revealed CD5 positive B-cell lymphoma consistent with mantle cell lymphoma. Small to medium size lymphocytes, large forms not identified. IHC positive for CD 20, CD 5, BCL 2 and cyclin D1. The Ki I-67 proliferation index is 15-20%. 11/16/2019-bone marrow aspirate/biopsy-involvement by mantle cell lymphoma involving 30-40% of bone marrow. Residual bone marrow with maturing trilineage hematopoiesis. Cellularity-60% infiltrative process. Multiple lymphoid nodules identified. IHC showed CD3 positive T-cells, CD 20 positive lymphoid infiltrate. CD5 positive in lymphoid infiltrate. Cyclin D1 positive in lymphoid infiltrate low level of lambda light chain restricted CD5 positive CD 20 positive B-cell population by flow cytometry. Increased reticulin fibrosis, no stainable iron. 11/19/2019-CT chest/abdomen/pelvis showed bilateral abnormal axillary, mesenteric, lower peritoneal, bilateral external iliac, bilateral inguinal lymph nodes consistent with lymphoma. Largest left axillary lymph node measured 2.3 x 1.3 cm. Largest mesenteric lymph node 1.9 x 1.7 x 1.9 cm. Largest right inguinal lymph node 2.3 x 1.2 x 2.6 cm. 12/07/2019-PET-CT showed multiple FDG avid lymph nodes in neck, chest, abdomen and pelvis. SUV ranging from 4.5-2.5. Referred to [facility] for chemotherapy and further management. Interval History Interval history: Patient showed up in clinic today wanting to be seen. He states that he is still requiring platelet transfusions, he was seen yesterday at [facility] in [place]. His main concern today is that he is being evicted from his home and he cannot be without a home at this time. I do not have any records from [facility]. He denies any fever, chills, chest pain or shortness of breath. [facility] Medical History: Medical History (Last Updated 07/09/20 @ 12:41 by Tali Purdy PA-C) Appendicitis Chronic pain Depression H/O: RCT (rotator cuff tear) Kidney stone Mantle cell lymphoma Rectal bleeding Family History: Family History (Last Updated 05/20/20 @ 11:53 by Alyssa Ruiz MD) Mother COPD (chronic obstructive pulmonary disease) Sister Colon cancer Surgical History: Surgical History (Last Updated 05/17/20 @ 13:50 by Bonny Love DO) History of appendectomy Smoking status: Never smoker Oncology Screenings - ECOG Performance Status ECOG Performance Status: 1 Home Medications and Allergies Home Medications Medication Instructions Recorded Confirmed Type acyclovir 400 mg PO BID 05/20/20 07/09/20 History ondansetron HCl 8 mg PO Q8H 05/20/20 05/20/20 History Allergies Allergy/AdvReac Type Severity Reaction Status Date / Time cyclobenzaprine [Flexeril] Allergy Unknown Palpitation Verified 05/20/20 12:35 s Exam Vital signs: Vital Signs Temp 98.0 F 08/26/20 14:56 Pulse 91 08/26/20 14:56 Resp 12 08/26/20 14:56 BP 114/73 08/26/20 14:56 Pulse Ox 97 08/26/20 14:56 Intake & Output 08/25/20 08/26/20 08/26/20 18:59 06:59 18:59 Other: Weight 90.6 kg Weight 90.6 kg Body Mass Index 26.3 - Constitutional Present: no acute distress - Routine HEENT Exam Head: Present: normal inspection - Routine Neck Exam Present: normal inspection. Absent: lymphadenopathy - Routine Respiratory Exam Present: CTAB - Routine Cardiovascular Exam Cardiovascular: Present: S1, S2 - Routine Abdominal Exam Present: normal bowel sounds - Routine Extremities Exam Absent: calf tenderness, joint swelling, pedal edema Data - Labs CBC & Chem 7: 05/20/20 12:23 05/20/20 12:23 Labs: 05/20/20 12:23 Complete Blood Count Auto Diff Routine Comprehensive Met. Panel Routine LDH [Lactate Dehydrogenase] Routine SLIDE REVIEW Routine Laboratory Last Values WBC 1.9 X10*3/uL (4.8-10.8) L 05/20/20 12:23 RBC 2.89 X10*6/uL (4.60-5.80) L 05/20/20 12:23 Hgb 9.6 g/dl (14.0-18.0) L 05/20/20 12:23 Hct 26.9 % (42-52) L 05/20/20 12:23 MCV 93.1 fL (80-98) 05/20/20 12:23 MCH 33.2 pg (27.0-33.0) H 05/20/20 12:23 MCHC 35.7 g/dl (31.0-36.0) 05/20/20 12: RDW 13.2 % (11.0-16.0) 05/20/20 12:23 Plt Count 101 X10*3/uL (160-400) L D 05/20/20 12:23 MPV 9.6 fL (9.4-12.4) 05/20/20 12:23 Immature Gran % (Auto) 0.6 % (0.0-0.4) H 05/20/20 12:23 Neut % (Auto) 40.4 % (45-73) L 05/20/20 12:23 Lymph % (Auto) 23.4 % (20-40) 05/20/20 12:23 [place] % (Auto) 27.9 % (2-11) H 05/20/20 12:23 Eos % (Auto) 7.1 % (0-4) H 05/20/20 12: Baso % (Auto) 0.6 % (0-2) 05/20/20 12: Neut # (Auto) 0.6 X10*3/uL (2.0-8.3) L 05/20/20 12:23 Lymph # (Auto) 0.4 X10*3/uL (1.2-4.9) L 05/20/20 12:23 [place] # (Auto) 0.4 X10*3/uL (0.1-1.2) 05/20/20 12:23 Eos # (Auto) 0.1 X10*3/uL (0.0-0.4) 05/20/20 12: Baso # (Auto) 0.0 X10*3/uL (0.0-0.2) 05/20/20 12: Abs Immat Gran (auto) 0.01 X10*3/uL (0.00-0.03) 05/20/20 12: Absolute Nucleated RBC 0.000 X10*3/uL (0.0-0.012) 05/20/20 12:23 Nucleated RBC % (auto) 0.0 /100WBC (0.0-0.2) 05/20/20 12:23 Smear Tech's Comments VERIFIED 05/20/20 12:23 Sodium 139 mmol/L (135-145) 05/20/20 12:23 Potassium 3.9 mmol/l (3.3-5.1) 05/20/20 12:23 Chloride 103 mmol/L (96-108) 05/20/20 12:23 Carbon Dioxide 28 mmol/L (22-29) 05/20/20 12:23 Anion Gap 12 (12-20) 05/20/20 12:23 BUN 16 mg/dL (9-16) 05/20/20 12:23 Creatinine 1.36 mg/dL (0.5-1.4) 05/20/20 12:23 Estim Creat Clear Calc 75.8 05/20/20 12:23 Estimated GFR 56 05/20/20 12:23 Random Glucose 112 mg/dL (60-115) 05/20/20 12:23 Calcium 8.7 mg/dL (8.4-10.2) 05/20/20 12:23 Total Bilirubin 0.4 mg/dL (0.0-1.0) 05/20/20 12:23 AST 28 U/L (5-37) 05/20/20 12:23 ALT 31 U/L (0-40) 05/20/20 12:23 Alkaline Phosphatase 85 U/L (39-117) 05/20/20 12:23 Lactate Dehydrogenase 298 U/L (118-273) H 05/20/20 12:23 Total Protein 6.2 g/dL (6.5-8.0) L 05/20/20 12:23 Albumin 3.8 g/dL (3.5-5.0) 05/20/20 12:23 Progress Note: A/P (1) Mantle cell lymphoma Status: Acute Assessment and plan: 1. This is a 49-year-old male with stage IV mantle cell lymphoma, MIPI score 5.5, low risk disease. He has been started on chemotherapy regimen with R-HyperCVAD at [facility] on 12/17/2019. He received about 2 cycles of R hyper CVAD, this was subsequently changed to R bendamustine because of renal toxicity. His last chemotherapy was administered on 05/06/2020 at [facility]. Patient states that he has low platelets. He had blood work at [facility] yesterday. Blood work will be obtained. He was given a letter stating necessity for housing. He has a follow-up appointment in October at [facility]. Follow-up in 4 months - Time Spent With Patient Total time spent is greater than 50% in coordination of care (as documented) at patient's floor/unit and/or counseling patient: 15 - 24 minutes
== END | disposition home or self-care (01) ==
LOC: HO.ONC 05-20 11:13
PROVIDERS: PCP Internal Medicine; Visit Provider Internal Medicine
DX: D69.6 Thrombocytopenia, unspecified (principal); C83.11 Mantle cell lymphoma, lymph nodes of head, face, and neck
CPT/HCPCS: 36415; 80053; 83615; 85025; 99213

== ENCOUNTER 2024-07-17 03:34 | Emergency (ER) | payer MEDICAID, SELFPAY ==
[2024-07-17] VITALS (7 sets, daily range): BP systolic 86–107; BP diastolic 46–71; PULSE 59–70; RESP 10–18; TEMP 36.3–36.7; O2SAT 96–100; BMI 20.8
--- NOTE | 2024-07-17 | ECG_ITS ---
Test Reason : WEAKNESS Blood Pressure : / mmHG Vent. Rate : 065 BPM Atrial Rate : 065 BPM P-R Int : 158 ms QRS Dur : 088 ms QT Int : 440 ms P-R-T Axes : 067 024 060 degrees QTc Int : 457 ms Normal sinus rhythm Increased R/S ratio in V1, consider early transition or posterior infarct Abnormal ECG When compared with ECG of 27-JAN-2024 16:55, Vent. rate has decreased BY 35 BPM Referred By: Generic ED Physician Electronically Signed By:Chad Breen
--- NOTE | ~2024-07-17 | XR_ITS ---
EXAMINATION: XR CHEST CLINICAL INFORMATION: fever COMPARISON: January 27, 2024. TECHNIQUE: Frontal view of the chest was obtained. FINDINGS: The patient is mildly rotated. A tracheostomy is again noted in place similar in position compared to prior. The cardiomediastinal silhouette is within normal limits and stable. There appears to be atelectatic change at the left lung base. The lungs are otherwise clear. The bony structures and the soft tissues are unremarkable. XR/XR chest 1V IMPRESSION: 1. Tracheostomy in place similar in position compared to prior imaging. 2. Atelectatic change at the left lung base. 3. No other significant abnormality seen. Electronically signed by: Matias Motley MD 07/17/2024 05:39 AM [facility]
--- NOTE | ~2024-07-17 | CT_ITS ---
EXAMINATION: CT ABDOMEN AND PELVIS WITH CONTRAST CLINICAL INFORMATION: Fever. Elevated liver function test. COMPARISON: CT dated January 28, 2024. TECHNIQUE: Multidetector volumetric images were obtained from the superior aspect of the liver through the pubic symphysis following administration 85 mL of Omnipaque 350 intravenous contrast. Sagittal and coronal reformatted images were obtained on the technologist's workstation. Oral contrast: No This CT examination was performed using dose optimization techniques as appropriate, variously including the following: *Automated exposure control *Adjustment of mA and/or kV according to patient size (this includes techniques or standardized protocols for targeted exams where dose is matched to indication/reason for exam; i.e. extremities or head) *Use of iterative reconstruction technique DLP: 703 mGy-cm FINDINGS: Limited by patient's breathing motion artifact. LUNG BASES: Bilateral pleural effusions, small volume. Atelectasis lung bases. LIVER, GALLBLADDER, AND BILIARY TREE: Liver measures 16 cm. No gross focal mass. Portal vein, hepatic veins and intrahepatic portion of the IVC are patent. No intrahepatic or extrahepatic biliary ductal dilatation. No pericholecystic fluid collection or gallbladder wall thickening. PANCREAS: No focal pancreatic mass. No main pancreatic ductal dilatation. No peripancreatic fluid collection. SPLEEN: 10 cm. No focal mass. ADRENAL GLANDS: No nodular lesions. KIDNEYS AND URETERS: 2.5 cm exophytic cystic lesion in the posterior lower pole left kidney. 0.9 cm exophytic cystic lesion in the posterior midportion/lower pole right kidney. Questionable asymmetric decreased enhancement pattern of the right renal parenchyma. No hydronephrosis in the kidney. BLADDER: Fluid-filled. GASTROINTESTINAL TRACT: Percutaneously placed gastrostomy tube with the balloon inflated in the antrum/duodenal bulb. Gas and fluid-filled large intestine. There is residual contrast within the distal small bowel loops and cecum. No intestinal obstruction pattern. No pneumatosis intestinalis. No pneumoperitoneum. No ascites. No peripheral enhancing fluid collection in the peritoneal cavity. I do not see the appendix. ABDOMINAL WALL: Small fat-containing umbilical and periumbilical hernias with diastases abdominal rectus muscles. LYMPH NODES: No lymphadenopathy, mesenteric or retroperitoneal. VASCULAR: No aneurysm or dissection, abdominal aorta. PELVIC VISCERA: There is a peripheral enhancing fluid density measuring 1.4 cm in maximum diameter at the penile urethra/prostate junction OSSEOUS STRUCTURES: Calcifications in the myotendinous junction near the greater tuberosity both femurs. Degenerative changes in the sacroiliac joints. Multilevel thoracolumbar spondylosis. No acute fracture or listhesis. No lytic or blastic lesions. CT/CT abdomen pelvis w IV con IMPRESSION: Urinary tract infection/pyelonephritis right kidney cannot be entirely excluded. Bilateral pleural effusions, small to moderate volume. Percutaneously placed gastrostomy tube anchor in the duodenal bulb region. Focal peripheral enhancing fluid collection, penile urethra/prostate segment junction. Fleischner guidelines were followed. Electronically signed by: Kushal Kunz MD 07/17/2024 09:50 AM EST
--- NOTE | 2024-07-17 03:56 | ED_ITS ---
HPI - General Adult General Chief complaint: Altered Mental Status Stated complaint: FEVER Time Seen by Provider: 07/17/24 03:49 Source: EMS Limitations: other History of Present Illness ED Provider: Dr. Analy Pineda HPI narrative: Patient comes to the emergency room via ambulance from [facility] for evaluation of 104.0 fever. According to the staff, they noted that the patient is less responsive than usual, patient noted to have a rectal temperature of 104.0 degrees and low blood pressure . And is unable to give any significant history. Per EMS, when they took the patient's vitals, blood pressure has been above 90, received 200 mL of IV fluids. No fever for them. According to EMS, the staff has given him Tylenol and ibuprofen prior to arrival . Related Data Home Medications ?Medication ?Instructions ?Recorded ?Confirmed acetaminophen 325 mg tablet 650 mg feeding tube Q4H PRN Fever 01/02/23 01/27/24 Or Pain albuterol sulfate 2.5 mg/3 mL 2.5 mg inhalation Q4H PRN 01/02/23 01/27/24 (0.083 %) solution for nebulization Shortness Of Breath Or Wheezing ascorbic acid (vitamin C) 250 mg 250 mg feeding tube DAILY 01/02/23 01/27/24 tablet atovaquone 750 mg/5 mL oral 750 mg feeding tube BIDWM 01/02/23 01/27/24 suspension baclofen 10 mg tablet 5 mg feeding tube 01/02/23 01/27/24 TID@0900,1300,1700 bisacodyl 10 mg rectal suppository 10 mg MI DAILY PRN Constipation 01/02/23 01/27/24 cholecalciferol (vitamin D3) 1,250 1,250 mcg feeding tube QMONTH 01/02/23 01/27/24 mcg (50,000 unit) tablet finasteride 5 mg tablet 5 mg feeding tube DAILY 01/02/23 01/27/24 glycopyrrolate 1 mg tablet 0.5 mg feeding tube BID 01/02/23 01/27/24 guaifenesin 200 mg/5 mL oral liquid 200 mg feeding tube Q4H PRN Cough 01/02/23 01/27/24 lacosamide 200 mg tablet 200 mg feeding tube BID 01/02/23 01/27/24 leucovorin calcium 25 mg tablet 25 mg feeding tube BEDTIME 01/02/23 01/27/24 loperamide 2 mg capsule 2 mg feeding tube Q4H PRN Diarrhea 01/02/23 01/27/24 lorazepam 0.5 mg tablet 0.5 mg feeding tube Q6H PRN Anxiety 01/02/23 01/27/24 lorazepam 2 mg/mL injection 2 mg IM ONCE PRN Seizures 01/02/23 01/27/24 solution magnesium hydroxide 400 mg/5 mL 30 ml feeding tube DAILY PRN 01/02/23 01/27/24 oral suspension (Milk of Magnesia) Constipation melatonin 3 mg tablet 3 mg feeding tube BEDTIME 01/02/23 01/27/24 morphine 10 mg/5 mL oral solution 5 mg feeding tube DAILY 01/02/23 01/27/24 ondansetron HCl 2 mg/mL 4 mg IM Q4H PRN Nausea And Vomiting 01/02/23 01/27/24 intravenous solution oxycodone 5 mg tablet 5 mg feeding tube Q4H PRN Pain 01/02/23 01/27/24 (Scale Score 4-6) scopolamine base 1 mg over 3 days 1 patch transdermal Q3D 01/02/23 01/27/24 transdermal patch sennosides 8.6 mg-docusate sodium 2 tab-cap PO BID@0900,1700 01/02/23 01/27/24 50 mg tablet (Senna with Docusate Constipation Sodium) sodium phosphates 19 gram-7 118 ml MI DAILY PRN Constipation 01/02/23 01/27/24 gram/118 mL enema (Fleet Enema) tramadol 50 mg tablet 50 mg feeding tube Q4H PRN Pain 01/02/23 01/27/24 (Scale Score 1-3) zinc sulfate 50 mg zinc (220 mg) 50 mg feeding tube DAILY 01/02/23 01/27/24 tablet multivitamin 1 tab feeding tube DAILY 01/31/23 01/27/24 pyrimethamine 25 mg tablet 50 mg feeding tube DAILY 01/31/23 01/27/24 betamethasone dipropionate 0.05 % 1 appl topical DAILY 06/04/23 01/27/24 topical ointment carboxymethylcellulose sodium 0.25 2 drp ophthalmic (eye) BID 06/04/23 01/27/24 % eye drops morphine 10 mg/5 mL oral solution 2.5 mg feeding tube TID 06/04/23 01/27/24 sucralfate 1 gram tablet 1 g PO BID@1300,1700 06/04/23 01/27/24 acetylcysteine 200 mg/mL (20 %) 30 ml inhalation Q12H PRN THICK 09/22/23 01/27/24 solution AIRWAY SECRETION ibuprofen 600 mg tablet 600 mg PO Q8H PRN FEVER 09/22/23 01/27/24 UNRESPONSIVE TO APAP linaclotide 145 mcg capsule 145 mcg G-tube DAILY 01/27/24 01/27/24 (Linzess) loratadine 10 mg tablet 10 mg feeding tube DAILY 01/27/24 01/27/24 midodrine 5 mg tablet 5 mg PO TID 01/27/24 01/27/24 omeprazole 20 mg capsule,delayed 20 mg feeding tube BID 01/27/24 01/27/24 release polyethylene glycol 3350 17 gram 17 g feeding tube DAILY 01/27/24 01/27/24 oral powder packet (Miralax) simethicone 80 mg chewable tablet 80 mg feeding tube Q6H 01/27/24 01/27/24 Saccharomyces boulardii 250 mg 250 mg PO BID 02/13/24 capsule Previous Rx's ?Medication ?Instructions ?Recorded sulfamethoxazole 200 20 ml G-tube BID 12 days #480 mL 02/01/24 mg-trimethoprim 40 mg/5 mL oral suspension Allergies Allergy/AdvReac Type Severity Reaction Status Date / Time cyclobenzaprine [Flexeril] Allergy Unknown Palpitation Verified 07/17/24 04:05 s Review of Systems 2 Review of Systems: Yes Unobtainable due to mental condition [facility] Past Medical History Medical History Tracheostomy dependent Mantle cell lymphoma Aspiration into airway Stage IV decubitus ulcer Osteomyelitis of pelvis Anemia Toxoplasmosis Encephalopathy [employer] lymphoma Rectal bleeding H/O: RCT (rotator cuff tear) Depression Appendicitis Chronic pain Kidney stone Mantle cell lymphoma Surgical History History of appendectomy Family History Family History Mother COPD (chronic obstructive pulmonary disease) Sister Colon cancer Social History Social History 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 Housing: Senior Living Housing Other:: [facility] Do you presently have visiting nurse or other home services: No Unable to assess alcohol history related to: Unable to respond Alcohol intake: unknown Patient Tobacco Use Status: Never used Tobacco Smoked in Last 30 Days: No Second Hand Smoke Exposure: No Substance Use Type: Unknown Advance Directives: Yes Advance Directives on File: Yes Advance Directives Date on File: 07/17/24 service: No Current occupational status: unemployed Physical Exam ED Vital Signs: Vital Signs - 24 hr 07/17/24 03:55 07/17/24 05:26 07/17/24 06:12 Temperature 97.4 F Pulse Rate 64 59 59 Respiratory Rate 10 L 12 10 L Blood Pressure 94/60 96/62 89/59 L Pulse Oximetry 98 96 99 Oxygen Delivery Method Trach Collar Trach Collar Trach Collar 07/17/24 06:56 07/17/24 07:25 Temperature 97.7 F Pulse Rate 69 70 Respiratory Rate 14 14 Blood Pressure 102/71 107/46 L Pulse Oximetry 100 99 Oxygen Delivery Method Humidified O2 Trach Collar Humidified O2 Trach Collar BMI result Body Mass Index 20.8 Const Other: Appearance: Alert. somnolent, opens his eyes Eyes: Pupils equal, round and reactive to light. ENT: Pharynx normal. trach in place Neck: Normal inspection. Neck supple. No lymph nodes noted. No crepitus CVS: Normal heart rate and rhythm. Pulses normal. Normal S1 and S2 Respiratory: No respiratory distress. Breath sounds normal. No Wheezing. No rales Abdomen: Soft , does not seem to be tender to palpation No rigidity. No distention. G-tube in place Skin: Skin warm and dry. Normal skin color. Normal skin turgor. Extremities: No lower extremity edema. chronic lower extremity contractures Neuro: can not participating cranial nerve assessment Psych: calm Course Course Course Narrative: patient's nurse called [facility]. At baseline, patient is awake, able to communicate with his hands, lately patient has been more lethargic than usual. The staff from the patient's [facility] where he lives, they state that patient at baseline has a low blood pressure, between high 80s to the Mid 90s - here in the emergency room, patient has not had any fever, no tachycardia. Patient's blood pressure ranging in the high 80s to low 90s which is patient's baseline. - feel remains somnolent, patient's oral mucosa looks very dry. Patient already received fluids. - Sepsis is not suspected yet. Medications Administered Generic Name Dose Route Start Last Admin Trade Name Freq PRN Reason Stop Dose Admin Sodium Chloride 2,000 mls @ 999 mls/hr 07/17/24 06:02 07/17/24 07:23 Ns IVCONT 07/17/24 08:02 999 mls/hr .Q2H1M ONE Administration Discontinued Medications Generic Name Dose Route Start Last Admin Trade Name Freq PRN Reason Stop Dose Admin Ertapenem 1 gm 07/17/24 06:04 07/17/24 07:25 Ertapenem Sodium 1 Gm Vial IVPUSH 07/17/24 06:05 1 gm ONCE ONE Administration Sodium Chloride 1,000 mls @ 999 mls/hr 07/17/24 04:44 07/17/24 05:28 Ns IVCONT 07/17/24 05:44 999 mls/hr .Q1H1M ONE Administration Iohexol 85 ml 07/17/24 06:42 07/17/24 06:43 Iohexol 350 Mg/Ml 100 Ml Infus..Btl IV 07/17/24 06:43 85 ml ONCE ONE Administration Medical Decision Making Medical Decision Making [facility] Narrative: my interpretation of labs: Patient's hematology at baseline, chemistry within normal limits, LFTs slightly elevated. on physical exam, patient does not seem to have abdominal pain, CT s-can pending. Patient getting IV fluids. Given patient's history of frequent UTIs, patient was giving IV fluids and a dose of ertapenem patient is much more awake, blood pressure in the 100 systolic. Patient communicating at baseline with his hands as he usually does back home. - CT scan of the abdomen/pelvis pending, urinalysis pending, blood pressure are back to normal and at baseline for the patient. sign-out given to my colleague Dr. Mccullough Differential Diagnosis Differential Diagnoses: The differential diagnosis associated with the presentation includes (UTI, viral illness) Admission/Observation Consideration of admission/observation: Escalation of care including admission/observation considered Lab Data [facility] Lab Attestation statement: I reviewed the patient's lab results. 07/17/24 03:53 07/17/24 03:53 Labs: Lab Results 07/17/24 07/17/24 Range/Units 03:53 03:54 WBC 8.8 (4.8-10.8) X10*3/uL RBC 4.12 L (4.60-5.80) X10*6/uL Hgb 12.6 L (14.0-18.0) g/dl Hct 37.7 L (42.0-52.0) % MCV 91.5 (80.0-98.0) fL MCH 30.6 (27.0-33.0) pg MCHC 33.4 (31.0-36.0) g/dl RDW 15.3 (11.0-16.0) % Plt Count 130 L D (160-400) X10*3/uL MPV 9.9 (9.4-12.4) fL Immature Gran % (Auto) 0.5 H (0.0-0.4) % Neut % (Auto) 70.4 (45-73) % Lymph % (Auto) 10.3 L (20-40) % Dixie % (Auto) 18.7 H (2-11) % Eos % (Auto) 0.0 (0-4) % Baso % (Auto) 0.1 (0-2) % Lymph # (Auto) 0.9 L (1.2-4.9) X10*3/uL Dixie # (Auto) 1.6 H (0.1-1.2) X10*3/uL Eos # (Auto) 0.0 (0.0-0.4) X10*3/uL Baso # (Auto) 0.0 (0.0-0.2) X10*3/uL Abs Immat Gran (auto) 0.04 H (0.00-0.03) X10*3/uL Absolute Neuts (auto) 6.2 (2.0-8.3) x10*3/uL Absolute Nucleated RBC 0.000 (0.0-0.012) X10*3/uL Nucleated RBC % (auto) 0.0 (0.0-0.2) /100WBC Smear Tech's Comments VERIFIED Sodium 141 (135-145) mmol/L Potassium 3.7 (3.3-5.1) mmol/L Chloride 101 (96-108) mmol/L Carbon Dioxide 30 H (22-29) mmol/L Anion Gap 14 (12-20) BUN 56 H (9-16) mg/dL Creatinine 1.37 (0.5-1.4) mg/dL Estim Creat Clear Calc 57.5 Estimated GFR 55 Random Glucose 103 (60-115) mg/dL Lactic Acid 0.8 (0.5-2.0) mmol/L Calcium 8.9 (8.4-10.2) mg/dL Magnesium 2.4 (1.6-2.6) mg/dL Total Bilirubin 0.4 (0.0-1.0) mg/dL AST 70 H (5-37) U/L ALT 165 H (0-40) U/L Alkaline Phosphatase 291 H (39-117) U/L Total Protein 6.8 (6.5-8.0) g/dL Albumin 3.4 L (3.5-5.0) g/dL Lipase 34 (8-78) U/L Influenza Type A (PCR) NEGATIVE (Negative) Influenza Type B (PCR) NEGATIVE (Negative) RSV RNA Qual (PCR) NEGATIVE (Negative) SARS-CoV-2 RNA (RT-PCR) NEGATIVE (Negative) Critical Care Time Critical Care Time Critical Care Time: Yes Total Critical Care Time: 45 Attestation: I have personally provided critical care time. Time includes review of lab data, radiology results, discussion with consultants, and monitoring for potential decompensation. Intervention performed as documented. Discharge Plan Discharge Clinical Impression: Lethargy Patient Disposition: Still a Patient Prescriptions: No Action glycopyrrolate 1 mg Tablet 0.5 mg feeding tube BID leucovorin calcium 25 mg Tablet 25 mg feeding tube BEDTIME melatonin 3 mg Tablet 3 mg feeding tube BEDTIME ascorbic acid (vitamin C) 250 mg Tablet 250 mg feeding tube DAILY baclofen 10 mg Tablet 5 mg feeding tube TID@0900,1300,1700 finasteride 5 mg Tablet 5 mg feeding tube DAILY atovaquone 750 mg/5 mL Suspension 750 mg feeding tube BIDWM Rx Instructions: must administer with food, preferably a high-fat meal lacosamide 200 mg Tablet 200 mg feeding tube BID cholecalciferol (vitamin D3) 1,250 mcg (50,000 unit) Tablet 1,250 mcg feeding tube QMONTH Rx Instructions: MONTHLY ON DAY 15 OF THE MONTH acetaminophen 325 mg Tablet 650 mg feeding tube Q4H PRN (Reason: Fever Or Pain) Rx Instructions: Fever >100.5 albuterol sulfate 2.5 mg /3 mL (0.083 %) Solution For Nebulization 2.5 mg INHALATION Q4H PRN (Reason: Shortness Of Breath Or Wheezing) loperamide 2 mg Capsule 2 mg feeding tube Q4H PRN (Reason: Diarrhea) Rx Instructions: administer after each loose stool until symptoms controlled; do not exceed 8 mg per 24 hrs ondansetron HCl 2 mg/mL Solution 4 mg IM Q4H PRN (Reason: Nausea And Vomiting) Rx Instructions: IF NO RELIEF FROM PO sennosides-docusate sodium [Senna with Docusate Sodium] 8.6-50 mg Tablet 2 tab-cap PO BID@0900,1700 Rx Instructions: G-TUBE tramadol 50 mg Tablet 50 mg feeding tube Q4H PRN (Reason: Pain (Scale Score 1-3)) zinc sulfate 50 mg zinc (220 mg) Tablet 50 mg feeding tube DAILY lorazepam 0.5 mg Tablet 0.5 mg feeding tube Q6H PRN (Reason: Anxiety) magnesium hydroxide [Milk of Magnesia] 400 mg/5 mL Suspension 30 ml feeding tube DAILY PRN (Reason: Constipation) Rx Instructions: If no BM after 3 days bisacodyl 10 mg Suppository 10 mg MI DAILY PRN (Reason: Constipation) Rx Instructions: If no BM after 8 hours following MOM X1 dose Fleet Enema 19-7 gram/118 mL Enema 118 ml MI DAILY PRN (Reason: Constipation) Rx Instructions: If No BM in 1 hour after Bisacodyl supp X1 dose morphine 10 mg/5 mL Solution 5 mg feeding tube DAILY scopolamine base 1 mg over 3 days Patch 3 Day 1 patch TRANSDERMAL Q3D oxycodone 5 mg Tablet 5 mg feeding tube Q4H PRN (Reason: Pain (Scale Score 4-6)) guaifenesin 200 mg/5 mL Liquid 200 mg feeding tube Q4H PRN (Reason: Cough) lorazepam 2 mg/mL Solution 2 mg IM ONCE PRN (Reason: Seizures) Rx Instructions: 2 mg intramuscularly as directed for seizure >2 minutes multivitamin Tablet 1 tab feeding tube DAILY pyrimethamine 25 mg Tablet 50 mg feeding tube DAILY sucralfate 1 gram Tablet 1 g PO BID@1300,1700 Rx Instructions: Give 1 hour after feedings finish and 1 hour before staring feedings carboxymethylcellulose sodium 0.25 % Drops 2 drp OPHTHALMIC (EYE) BID morphine 10 mg/5 mL Solution 2.5 mg feeding tube TID betamethasone dipropionate 0.05 % Ointment 1 appl TOPICAL DAILY Rx Instructions: left buttock wound acetylcysteine 200 mg/mL (20 %) Solution 30 ml INHALATION Q12H PRN (Reason: THICK AIRWAY SECRETION) ibuprofen 600 mg Tablet 600 mg PO Q8H PRN (Reason: FEVER UNRESPONSIVE TO APAP) loratadine 10 mg Tablet 10 mg feeding tube DAILY Linzess 145 mcg Capsule 145 mcg G-tube DAILY polyethylene glycol 3350 [Miralax] 17 gram Powder In Packet 17 g feeding tube DAILY Rx Instructions: mix in 8 oz of fluid ( not mix with starch-thickened liquids) omeprazole 20 mg Capsule,Delayed Release(Dr/Ec) 20 mg feeding tube BID simethicone 80 mg Tablet,Chewable 80 mg feeding tube Q6H midodrine 5 mg Tablet 5 mg PO TID Rx Instructions: do not give last dose of day after 6PM or within 4 hrs of bedtime sulfamethoxazole-trimethoprim 200-40 mg/5 mL Suspension 20 ml G-tube BID 12 Days Qty: 480 0RF Saccharomyces boulardii 250 mg capsule 250 mg PO BID Print Language: Belarusian
[2024-07-17 04:05] LABS: Hemoglobin 12.6 g/dl (14.0-18.0); Imm Gran Abs Auto 0.04 X10*3/uL (0.00-0.03); Imm Gran Pct Auto 0.5 % (0.0-0.4); PLT CLUMP 1; Red Cell Distribution Width 15.3 % (11.0-16.0); SCAN SMEAR FLAG 1
[2024-07-17 04:07] LABS: Basophils Percent Auto 0.1 % (0-2); Hematocrit 37.7 % (42.0-52.0); Lymphocytes Absolute Auto 0.9 X10*3/uL (1.2-4.9); Lymphocytes Percent Auto 10.3 % (20-40); MANUAL DIFF FLAG SCAN; Mean Corpuscular HGB Conc 33.4 g/dl (31.0-36.0); Mean Corpuscular Hemoglobin 30.6 pg (27.0-33.0); Mean Corpuscular Volume 91.5 fL (80.0-98.0); Monocytes Absolute Auto 1.6 X10*3/uL (0.1-1.2); Monocytes Percent Auto 18.7 % (2-11); Neutrophils Absolute Auto 6.2 x10*3/uL (2.0-8.3); Neutrophils Percent Auto 70.4 % (45-73); Red Blood Count 4.12 X10*6/uL (4.60-5.80); White Blood Count 8.8 X10*3/uL (4.8-10.8)
[2024-07-17 04:23] LABS: Mean Platelet Volume 9.9 fL (9.4-12.4); Platelet Count 130 X10*3/uL (160-400); SLIDE REVIEW VERIFIED
[2024-07-17 04:25] LABS: Lactic Acid 0.8 mmol/L (0.5-2.0)
[2024-07-17 04:26] LABS: Alanine Aminotransferase 165 U/L (0-40); Albumin Level 3.4 g/dL (3.5-5.0); Alkaline Phosphatase 291 U/L (39-117); Anion Gap 14 (12-20); Aspartate Amino Transferase 70 U/L (5-37); Bilirubin Total 0.4 mg/dL (0.0-1.0); Blood Urea Nitrogen 56 mg/dL (9-16); Calcium 8.9 mg/dL (8.4-10.2); Carbon Dioxide 30 mmol/L (22-29); Chloride 101 mmol/L (96-108); Creatinine Clr Calc Pharmacy 57.5; Estimated Glomerular Filt Rate 55; Glucose Random 103 mg/dL (60-115); Lipase 34 U/L (8-78); Magnesium 2.4 mg/dL (1.6-2.6); Potassium 3.7 mmol/L (3.3-5.1); Sodium 141 mmol/L (135-145); Total Protein 6.8 g/dL (6.5-8.0)
[2024-07-17 04:44] LABS: Influenza A PCR NEGATIVE (Negative); Influenza B PCR NEGATIVE (Negative); Resp Syncy Virus RNA Qual PCR NEGATIVE (Negative); SARS COV2 PCR INHOUSE NEGATIVE (Negative)
--- NOTE | 2024-07-17 05:09 | PC.NURSE ---
attempted to straight cath pt for urine x2 w/o success, then attempted with coude no success. MD Pineda aware
[2024-07-17] MEDS: 0.9 % Sodium Chloride 1,000 ML 999 ML IVCONT (05:28)
[2024-07-17] MEDS: iohexoL 350 MG/ML 100 ML INFUS..BTL 85 ML IV (06:43)
[2024-07-17] MEDS: 0.9 % Sodium Chloride 2,000 ML 999 ML IVCONT (07:23)
[2024-07-17] MEDS: Ertapenem Sodium 1 GM VIAL IVPUSH (07:25)
--- NOTE | 2024-07-17 07:37 | PC.NURSE ---
Urine collected and sent as ordered
[2024-07-17 07:52] LABS: Appearance Urine Turbid; Color Urine Yellow; Glucose Urine UA Negative (Negative); Leukocyte Esterase Urine Large (3+) (Negative); Nitrite Urine Negative (Negative); PH 5.5 (5.0-9.0); Specific Gravity - Urine 1.025 (1.005-1.025); UMIC TRIGGER UACC YES; Urine Blood Large (3+) (Negative); Urine Ketones Negative (Negative); Urine Protein 100 (2+) mg/dL (Neg-Trace)
[2024-07-17 08:05] LABS: Bacteria Urine 4+ (None Seen); Hyaline Casts Urine 0-2 /LPF (0-2); RBC Urine >20 /HPF (0-2); Squamous Epithelial Cell Urine 0-2 /HPF (0-2); UACC Culture Trigger YES; WBC Urine >50 /HPF (0-5)
--- NOTE | 2024-07-17 10:05 | PC.NURSE ---
Yeny Mccullough MD states that pt. is going up for discharge shortly. Called and gave RN-to-RN report to NICHLOE Rasmussen at [facility] in [place], [place]. Per NICHOLE Rasmussen- pt.'s prescription to be sent to the facility's own pharmacy: [facility] [place], [place]. [phone]
--- NOTE | 2024-07-17 12:23 | PC.NURSE ---
Full bed change for incontinence of urine
== END 2024-07-17 12:46 ==
PROVIDERS: Emergency Medicine; Emergency Provider Emergency Medicine; PCP Nurse Practitioner Adult Health
DX: R41.82 Altered mental status, unspecified (principal); R50.9 Fever, unspecified; R53.83 Other fatigue; R11.0 Nausea; R94.31 Abnormal electrocardiogram [ECG] [EKG]; Z79.899 Other long term (current) drug therapy; Z03.818 Encounter for observation for suspected exposure to other biological agents ruled out; Z87.440 Personal history of urinary (tract) infections
CPT/HCPCS: 0241U; 36415; 51702; 71045; 74177; 80053; 81001; 83605; 83690; 83735; 85025; 87040; 87086; 87088; 87186; 93005; 96361; 96374; 99285; J1335; Q9967

== ENCOUNTER → 2024-07-17 03:47 | Outpatient (BNV) | payer MEDICAID, SELFPAY | PROVIDERS: Emergency Provider Emergency Medicine; PCP Nurse Practitioner Adult Health; Visit Provider Internal Medicine Cardiovascular Disease | DX: R94.31 Abnormal electrocardiogram [ECG] [EKG] (principal); R53.1 Weakness | CPT/HCPCS: 93010 ==

== ENCOUNTER → 2024-07-17 06:08 | Outpatient (BNV) | payer MEDICAID, SELFPAY | PROVIDERS: Emergency Provider Emergency Medicine; PCP Nurse Practitioner Adult Health; Visit Provider Radiology Diagnostic Radiology | DX: N39.0 Urinary tract infection, site not specified (principal); J90 Pleural effusion, not elsewhere classified; Z93.1 Gastrostomy status | CPT/HCPCS: 74177 ==

== ENCOUNTER 2024-09-04 21:24 | Inpatient (IN) | payer MEDICAID, SELFPAY ==
--- NOTE | ~2024-09-04 | XR_ITS ---
CLINICAL HISTORY: cough, trach, SOB 1 view chest x-ray Comparison: CR/SR - XR CHEST 1V - 07/17/24 04:10 EST Findings: Left basilar infiltrative changes. Tracheostomy tube is within the thoracic inlet. Normal size heart. No acute fracture. IMPRESSION: Left basilar infiltrative changes may represent pneumonia. This document has been electronically signed by: Ramiro Stewart MD on 09/04/2024 22:51:42
[2024-09-04 21:43] VITALS: BP 103/71; BP 109/63; PULSE 104; PULSE 88; RESP 16; TEMP 37; O2SAT 96; O2SAT 97; BMI 21.4
--- NOTE | 2024-09-04 21:48 | ED.GENADULT ---
HPI - General Adult General Chief complaint: Altered Mental Status Stated complaint: questioniong uti or pneumonia Time Seen by Provider: 09/04/24 21:48 History of Present Illness ED Provider: Osbaldo GRAY narrative: The patient is a 53-year-old male who is a chronically ill patient. He lives chronically at the [facility] in [place]. He has a chronic tracheostomy and a G-tube. Apparently he was sent to the emergency room today because of a change in his status today. He has had a decreased level of consciousness. He has had an increased heart rate and an increased respiratory rate. Apparently he was also having an increasing productive cough with yellow thick sputum from his trach. Apparently his FiO2 had to be bumped up from 28% to 35%. Apparently staff at the [facility] gave him a dose of lorazepam prior to transfer. The patient is nonverbal at baseline and was unable to give any additional history. Related Data Home Medications ?Medication ?Instructions ?Recorded ?Confirmed acetaminophen 325 mg tablet 650 mg feeding tube Q4H PRN Fever 01/02/23 01/27/24 Or Pain albuterol sulfate 2.5 mg/3 mL 2.5 mg inhalation Q4H PRN 01/02/23 01/27/24 (0.083 %) solution for nebulization Shortness Of Breath Or Wheezing ascorbic acid (vitamin C) 250 mg 250 mg feeding tube DAILY 01/02/23 01/27/24 tablet atovaquone 750 mg/5 mL oral 750 mg feeding tube BIDWM 01/02/23 01/27/24 suspension baclofen 10 mg tablet 5 mg feeding tube 01/02/23 01/27/24 TID@0900,1300,1700 bisacodyl 10 mg rectal suppository 10 mg VT DAILY PRN Constipation 01/02/23 01/27/24 cholecalciferol (vitamin D3) 1,250 1,250 mcg feeding tube QMONTH 01/02/23 01/27/24 mcg (50,000 unit) tablet finasteride 5 mg tablet 5 mg feeding tube DAILY 01/02/23 01/27/24 glycopyrrolate 1 mg tablet 0.5 mg feeding tube BID 01/02/23 01/27/24 guaifenesin 200 mg/5 mL oral liquid 200 mg feeding tube Q4H PRN Cough 01/02/23 01/27/24 lacosamide 200 mg tablet 200 mg feeding tube BID 01/02/23 01/27/24 leucovorin calcium 25 mg tablet 25 mg feeding tube BEDTIME 01/02/23 01/27/24 loperamide 2 mg capsule 2 mg feeding tube Q4H PRN Diarrhea 01/02/23 01/27/24 lorazepam 0.5 mg tablet 0.5 mg feeding tube Q6H PRN Anxiety 01/02/23 01/27/24 lorazepam 2 mg/mL injection 2 mg IM ONCE PRN Seizures 01/02/23 01/27/24 solution magnesium hydroxide 400 mg/5 mL 30 ml feeding tube DAILY PRN 01/02/23 01/27/24 oral suspension (Milk of Magnesia) Constipation melatonin 3 mg tablet 3 mg feeding tube BEDTIME 01/02/23 01/27/24 morphine 10 mg/5 mL oral solution 5 mg feeding tube DAILY 01/02/23 01/27/24 ondansetron HCl 2 mg/mL 4 mg IM Q4H PRN Nausea And Vomiting 01/02/23 01/27/24 intravenous solution oxycodone 5 mg tablet 5 mg feeding tube Q4H PRN Pain 01/02/23 01/27/24 (Scale Score 4-6) scopolamine base 1 mg over 3 days 1 patch transdermal Q3D 01/02/23 01/27/24 transdermal patch sennosides 8.6 mg-docusate sodium 2 tab-cap PO BID@0900,1700 01/02/23 01/27/24 50 mg tablet (Senna with Docusate Constipation Sodium) sodium phosphates 19 gram-7 118 ml VT DAILY PRN Constipation 01/02/23 01/27/24 gram/118 mL enema (Fleet Enema) tramadol 50 mg tablet 50 mg feeding tube Q4H PRN Pain 01/02/23 01/27/24 (Scale Score 1-3) zinc sulfate 50 mg zinc (220 mg) 50 mg feeding tube DAILY 01/02/23 01/27/24 tablet multivitamin 1 tab feeding tube DAILY 01/31/23 01/27/24 pyrimethamine 25 mg tablet 50 mg feeding tube DAILY 01/31/23 01/27/24 betamethasone dipropionate 0.05 % 1 appl topical DAILY 06/04/23 01/27/24 topical ointment carboxymethylcellulose sodium 0.25 2 drp ophthalmic (eye) BID 06/04/23 01/27/24 % eye drops morphine 10 mg/5 mL oral solution 2.5 mg feeding tube TID 06/04/23 01/27/24 sucralfate 1 gram tablet 1 g PO BID@1300,1700 06/04/23 01/27/24 acetylcysteine 200 mg/mL (20 %) 30 ml inhalation Q12H PRN THICK 09/22/23 01/27/24 solution AIRWAY SECRETION ibuprofen 600 mg tablet 600 mg PO Q8H PRN FEVER 09/22/23 01/27/24 UNRESPONSIVE TO APAP linaclotide 145 mcg capsule 145 mcg G-tube DAILY 01/27/24 01/27/24 (Linzess) loratadine 10 mg tablet 10 mg feeding tube DAILY 01/27/24 01/27/24 midodrine 5 mg tablet 5 mg PO TID 01/27/24 01/27/24 omeprazole 20 mg capsule,delayed 20 mg feeding tube BID 01/27/24 01/27/24 release polyethylene glycol 3350 17 gram 17 g feeding tube DAILY 01/27/24 01/27/24 oral powder packet (Miralax) simethicone 80 mg chewable tablet 80 mg feeding tube Q6H 01/27/24 01/27/24 Saccharomyces boulardii 250 mg 250 mg PO BID 02/13/24 capsule Previous Rx's ?Medication ?Instructions ?Recorded sulfamethoxazole 200 20 ml PO BID 7 days #280 mL 07/17/24 mg-trimethoprim 40 mg/5 mL oral suspension Allergies Allergy/AdvReac Type Severity Reaction Status Date / Time cyclobenzaprine [Flexeril] Allergy Unknown Palpitation Verified 09/04/24 21:46 s Review of Systems Review of Systems: Yes Unobtainable due to mental status PMFSH Past Medical History Medical History Tracheostomy dependent Mantle cell lymphoma Aspiration into airway Stage IV decubitus ulcer Osteomyelitis of pelvis Anemia Toxoplasmosis Encephalopathy [employer] lymphoma Rectal bleeding H/O: RCT (rotator cuff tear) Depression Appendicitis Chronic pain Kidney stone Mantle cell lymphoma Surgical History History of appendectomy Family History Family History Mother COPD (chronic obstructive pulmonary disease) Sister Colon cancer Social History Social History 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 Housing: Custodial Housing Other:: [facility] Do you presently have visiting nurse or other home services: No Unable to assess alcohol history related to: Unable to respond Alcohol intake: unknown Patient Tobacco Use Status: Never used Tobacco Second Hand Smoke Exposure: No Use of substances other than those prescribed or required for medical reasons: Unable to respond Substance Use Type: Unknown Advance Directives: Yes Advance Directives on File: Yes Advance Directives Date on File: 06/04/23 Nutrition Risks: Anorexia and Receiving home tube feeding or CPN service: No Current occupational status: unemployed Physical Exam ED Vital Signs: Vital Signs - 24 hr 09/04/24 21:43 09/04/24 21:51 09/04/24 22:31 Temperature 98.6 F 98.6 F Pulse Rate 88 88 89 Respiratory Rate 16 16 17 Blood Pressure 109/63 109/63 97/63 Pulse Oximetry 97 97 96 Oxygen Delivery Method Trach Collar Trach Collar Trach Collar Fraction of Inspired Oxygen 35 35 35 09/04/24 23:35 Temperature Pulse Rate 86 Respiratory Rate 16 Blood Pressure 97/60 Pulse Oximetry 100 Oxygen Delivery Method Trach Collar Fraction of Inspired Oxygen 38 BMI result Body Mass Index 21.4 Const Other: The patient is a thin, chronically ill-appearing 53-year-old. He has a tracheostomy and a gastrostomy tube. He has atrophied extremities. He looks very chronically ill. He has a very subdued demeanor and has minimal responses to noxious stimuli. He is not showing any obvious increased work of breathing however. HENMT Other: Airway is clear. Mucous membranes moist. Eyes Other: Pupils are small and equal. Conjunctivae are clear. Neck Other: The patient has a tracheostomy tube in place. No neck swelling. Resp Other: No definite wheezes or crackles. Effort & Inspection: normal respiratory effort Auscultation: clear to auscultation bilaterally Cardio Rate: regular rate Rhythm: regular rhythm Heart sounds: S1 normal heart sound present and S2 normal heart sound present GI Other: The abdomen is soft. No signs of tenderness on palpation. No guarding or rigidity. Skin Other: Skin is moist and unremarkable otherwise. No lesions. Neuro Other: The patient has his eyes open. He is minimally responsive to noxious stimuli. He has significantly atrophied extremities suggesting chronic weakness. Extrem Other: The patient has atrophied lower legs. No calf swelling or tenderness. No asymmetry. Medications Administered Generic Name Dose Route Start Last Admin Trade Name Freq PRN Reason Stop Dose Admin Dexamethasone Sodium Phosphate 6 mg 09/04/24 23:45 09/05/24 00:05 Dexamethasone Sod Phosphate 4 Mg/Ml Vial IVPUSH 6 mg DAILY RACHELL Administration Enoxaparin Sodium 40 mg 09/04/24 23:45 09/05/24 00:05 Enoxaparin Sodium 40 Mg/0.4 Ml Syringe SUBCUT 40 mg Q24H RACHELL Administration Meropenem 1 gm 09/04/24 23:45 09/05/24 00:36 Meropenem 1 Gm Vial IVPUSH 1 gm Q8H RACHELL Administration Sodium Chloride 3 ml 09/05/24 00:00 09/05/24 00:50 0.9 % Sodium Chloride Flush 3 Ml Syringe IVFLUSH 3 ml QSHIFT RACHELL Administration Discontinued Medications Generic Name Dose Route Start Last Admin Trade Name Freq PRN Reason Stop Dose Admin Cefepime HCl 2 gm in 50 mls @ 100 mls/hr 09/04/24 22:35 09/04/24 23:33 Maxipime IV 09/04/24 23:04 Infused ONCE ONE Infusion Vancomycin HCl 1,000 mg/ 535 mls @ 267.5 mls/hr 09/04/24 23:00 09/04/24 23:33 Vancomycin HCl 750 mg/ Sodium IV 09/05/24 00:59 267.5 mls/hr Chloride ONCE ONE Administration Medical Decision Making Medical Decision Making [facility] Narrative: The patient is a chronically ill 53-year-old who lives at a long-term care facility with a trach and a G-tube. He presents with a 1 day history of worsening respiratory symptoms. His chest x-ray suggests a left lower lobe infiltrate. He has also tested positive for COVID. He was started on broad-spectrum antibiotics empirically with cefepime and vancomycin. His lactate was normal. He will be admitted to the hospitalist service. Lab Data 09/04/24 22:27 09/04/24 22:27 Labs: Lab Results 0109/04/24 09/04/24 Range/Units 22:18 22:27 22:49 WBC 5.9 (4.8-10.8) X10*3/uL RBC 4.47 L (4.60-5.80) X10*6/uL Hgb 13.5 L (14.0-18.0) g/dl Hct 40.6 L (42.0-52.0) % MCV 90.8 (80.0-98.0) fL MCH 30.2 (27.0-33.0) pg MCHC 33.3 (31.0-36.0) g/dl RDW 15.0 (11.0-16.0) % Plt Count 113 L D (160-400) X10*3/uL MPV 9.7 (9.4-12.4) fL Immature Gran % (Auto) 0.7 H (0.0-0.4) % Neut % (Auto) 80.1 H (45-73) % Lymph % (Auto) 5.5 L (20-40) % [place] % (Auto) 13.5 H (2-11) % Eos % (Auto) 0.0 (0-4) % Baso % (Auto) 0.2 (0-2) % Lymph # (Auto) 0.3 L (1.2-4.9) X10*3/uL [place] # (Auto) 0.8 (0.1-1.2) X10*3/uL Eos # (Auto) 0.0 (0.0-0.4) X10*3/uL Baso # (Auto) 0.0 (0.0-0.2) X10*3/uL Abs Immat Gran (auto) 0.04 H (0.00-0.03) X10*3/uL Absolute Neuts (auto) 4.7 (2.0-8.3) x10*3/uL Absolute Nucleated RBC 0.000 (0.0-0.012) X10*3/uL Nucleated RBC % (auto) 0.0 (0.0-0.2) /100WBC PT 13.0 H (10.9-12.4) SEC INR 1.1 (0.9-1.1) VBG pH (7.32-7.43) VBG pCO2 mmHg VBG pO2 mmHg VBG HCO3 (22-26) mmol/L VBG O2 Saturation % VBG Base Excess mmol/L Sodium 139 (135-145) mmol/L Potassium 3.5 (3.3-5.1) mmol/L Chloride 103 (96-108) mmol/L Carbon Dioxide 25 (22-29) mmol/L Anion Gap 15 (12-20) BUN 53 H (9-16) mg/dL Creatinine 1.31 (0.5-1.4) mg/dL Estim Creat Clear Calc 63.8 Estimated GFR 58 Random Glucose 102 (60-115) mg/dL Lactic Acid 1.5 (0.5-2.0) mmol/L Calcium 8.2 L D (8.4-10.2) mg/dL Magnesium 2.4 (1.6-2.6) mg/dL Total Bilirubin 0.4 (0.0-1.0) mg/dL AST 82 H (5-37) U/L ALT 102 H (0-40) U/L Alkaline Phosphatase 189 H (39-117) U/L Troponin I High Sens 8.1 D (<3.5-35.0) ng/L C-Reactive Protein 9.92 H (< or = 0.50) mg/dL B-Natriuretic Peptide 85 (<100) pg/mL Total Protein 7.3 (6.5-8.0) g/dL Albumin 3.5 (3.5-5.0) g/dL Hold Green Top See Note Urine Color Yellow Urine Appearance Cloudy Urine pH 5.5 (5.0-9.0) Ur Specific [place] 1.020 (1.005-1.025) Urine Protein 300 (3+) H (Neg-Trace) mg/dL Urine Glucose (UA) Negative (Negative) mg/dL Urine Ketones Trace (Negative) mg/dL Urine Blood Large (3+) H (Negative) Urine Nitrite Negative (Negative) Ur Leukocyte Esterase Moderate (2+) H (Negative) Urine RBC 6-10 H (0-2) /HPF Urine WBC 21-50 H (0-5) /HPF Ur Squamous Epith Cells 3-5 (0-2) /HPF Urine Bacteria 1+ (None Seen) Hyaline Casts 0-2 (0-2) /LPF Influenza Type A (PCR) NEGATIVE (Negative) Influenza Type B (PCR) NEGATIVE (Negative) RSV RNA Qual (PCR) NEGATIVE (Negative) SARS-CoV-2 RNA (RT-PCR) POSITIVE A (Negative) 09/04/24 Range/Units 22:58 WBC (4.8-10.8) X10*3/uL RBC (4.60-5.80) X10*6/uL Hgb (14.0-18.0) g/dl Hct (42.0-52.0) % MCV (80.0-98.0) fL MCH (27.0-33.0) pg MCHC (31.0-36.0) g/dl RDW (11.0-16.0) % Plt Count (160-400) X10*3/uL MPV (9.4-12.4) fL Immature Gran % (Auto) (0.0-0.4) % Neut % (Auto) (45-73) % Lymph % (Auto) (20-40) % [place] % (Auto) (2-11) % Eos % (Auto) (0-4) % Baso % (Auto) (0-2) % Lymph # (Auto) (1.2-4.9) X10*3/uL [place] # (Auto) (0.1-1.2) X10*3/uL Eos # (Auto) (0.0-0.4) X10*3/uL Baso # (Auto) (0.0-0.2) X10*3/uL Abs Immat Gran (auto) (0.00-0.03) X10*3/uL Absolute Neuts (auto) (2.0-8.3) x10*3/uL Absolute Nucleated RBC (0.0-0.012) X10*3/uL Nucleated RBC % (auto) (0.0-0.2) /100WBC PT (10.9-12.4) SEC INR (0.9-1.1) VBG pH 7.53 H (7.32-7.43) VBG pCO2 38 mmHg VBG pO2 95 mmHg VBG HCO3 32 H (22-26) mmol/L VBG O2 Saturation 100.0 % VBG Base Excess 9.4 mmol/L Sodium (135-145) mmol/L Potassium (3.3-5.1) mmol/L Chloride (96-108) mmol/L Carbon Dioxide (22-29) mmol/L Anion Gap (12-20) BUN (9-16) mg/dL Creatinine (0.5-1.4) mg/dL Estim Creat Clear Calc Estimated GFR Random Glucose (60-115) mg/dL Lactic Acid (0.5-2.0) mmol/L Calcium (8.4-10.2) mg/dL Magnesium (1.6-2.6) mg/dL Total Bilirubin (0.0-1.0) mg/dL AST (5-37) U/L ALT (0-40) U/L Alkaline Phosphatase (39-117) U/L Troponin I High Sens (<3.5-35.0) ng/L C-Reactive Protein (< or = 0.50) mg/dL B-Natriuretic Peptide (<100) pg/mL Total Protein (6.5-8.0) g/dL Albumin (3.5-5.0) g/dL Hold Green Top Urine Color Urine Appearance Urine pH (5.0-9.0) Ur Specific [place] (1.005-1.025) Urine Protein (Neg-Trace) mg/dL Urine Glucose (UA) (Negative) mg/dL Urine Ketones (Negative) mg/dL Urine Blood (Negative) Urine Nitrite (Negative) Ur Leukocyte Esterase (Negative) Urine RBC (0-2) /HPF Urine WBC (0-5) /HPF Ur Squamous Epith Cells (0-2) /HPF Urine Bacteria (None Seen) Hyaline Casts (0-2) /LPF Influenza Type A (PCR) (Negative) Influenza Type B (PCR) (Negative) RSV RNA Qual (PCR) (Negative) SARS-CoV-2 RNA (RT-PCR) (Negative) Independent Interpretation I performed an independent interpretation of an: EKG Interpretation: EKG at 22:12 shows normal sinus rhythm at 89 beats per minute. No significant change from previous. No definite acute changes. Discharge Plan Discharge Clinical Impression: Pneumonia, COVID Patient Disposition: Home, Self-Care
[2024-09-04 21:51] VITALS: BP 109/63; PULSE 88; RESP 16; TEMP 37; O2SAT 97
--- NOTE | 2024-09-04 21:54 | ECG_ITS ---
Test Reason : ams Blood Pressure : */* mmHG Vent. Rate : 89 BPM Atrial Rate : 89 BPM P-R Int : 154 ms QRS Dur : 88 ms QT Int : 380 ms P-R-T Axes : 58 25 62 degrees QTcB Int : 462 ms Normal sinus rhythm Normal ECG When compared with ECG of 17-Jul-2024 03:47, No significant change was found Referred By: Abhijeet Roblero Electronically Signed By: THOMAS THORNE MD
[2024-09-04 22:31] VITALS: BP 97/63; PULSE 89; RESP 17; O2SAT 96
[2024-09-04 22:40] LABS: Imm Gran Abs Auto 0.04 X10*3/uL (0.00-0.03); Imm Gran Pct Auto 0.7 % (0.0-0.4); Neutrophils Percent Auto 80.1 % (45-73); PLT CLUMP 1; SCAN SMEAR FLAG 1
[2024-09-04 22:42] LABS: Basophils Percent Auto 0.2 % (0-2); Hematocrit 40.6 % (42.0-52.0); Hemoglobin 13.5 g/dl (14.0-18.0); Lymphocytes Absolute Auto 0.3 X10*3/uL (1.2-4.9); Lymphocytes Percent Auto 5.5 % (20-40); Mean Corpuscular HGB Conc 33.3 g/dl (31.0-36.0); Mean Corpuscular Hemoglobin 30.2 pg (27.0-33.0); Mean Corpuscular Volume 90.8 fL (80.0-98.0); Mean Platelet Volume 9.7 fL (9.4-12.4); Monocytes Absolute Auto 0.8 X10*3/uL (0.1-1.2); Monocytes Percent Auto 13.5 % (2-11); Neutrophils Absolute Auto 4.7 x10*3/uL (2.0-8.3); Red Blood Count 4.47 X10*6/uL (4.60-5.80)
[2024-09-04 22:43] LABS: White Blood Count 5.9 X10*3/uL (4.8-10.8)
[2024-09-04 22:44] LABS: MANUAL DIFF FLAG NO; Platelet Count 113 X10*3/uL (160-400)
[2024-09-04 22:50] LABS: INTERNATIONAL NORM RATIO 1.1 (0.9-1.1)
[2024-09-04 22:59] LABS: Alanine Aminotransferase 102 U/L (0-40); Albumin Level 3.5 g/dL (3.5-5.0); Alkaline Phosphatase 189 U/L (39-117); Anion Gap 15 (12-20); Aspartate Amino Transferase 82 U/L (5-37); Bilirubin Total 0.4 mg/dL (0.0-1.0); Blood Urea Nitrogen 53 mg/dL (9-16); C Reactive Protein 9.92 mg/dL (< or = 0.50); Calcium 8.2 mg/dL (8.4-10.2); Carbon Dioxide 25 mmol/L (22-29); Chloride 103 mmol/L (96-108); Creatinine Clr Calc Pharmacy 63.8; Estimated Glomerular Filt Rate 58; Glucose Random 102 mg/dL (60-115); Magnesium 2.4 mg/dL (1.6-2.6); Potassium 3.5 mmol/L (3.3-5.1); Sodium 139 mmol/L (135-145); Total Protein 7.3 g/dL (6.5-8.0)
[2024-09-04 23:00] LABS: Lactic Acid 1.5 mmol/L (0.5-2.0)
[2024-09-04] MEDS: cefEPime HCl/D5W 2 GM/50 ML PIGGYBACK IV (23:00)
[2024-09-04 23:01] LABS: B Type Natriuretic Peptide 85 pg/mL (<100)
[2024-09-04 23:03] LABS: VBG Base Excess 9.4 mmol/L; VBG HCO3 32 mmol/L (22-26); VBG pCO2 38 mmHg; VBG pH 7.53 (7.32-7.43); VBG pO2 95 mmHg
[2024-09-04 23:03] LABS: Venous Blood Gas Refer to POC result
[2024-09-04 23:03] LABS: Appearance Urine Cloudy; Color Urine Yellow; Glucose Urine UA Negative (Negative); Leukocyte Esterase Urine Moderate (2+) (Negative); Nitrite Urine Negative (Negative); PH 5.5 (5.0-9.0); UMIC TRIGGER UA YES; Urine Blood Large (3+) (Negative); Urine Ketones Trace mg/dL (Negative); Urine Protein 300 (3+) mg/dL (Neg-Trace)
[2024-09-04 23:06] LABS: Troponin-I High Sensitivity 8.1 ng/L (<3.5-35.0)
[2024-09-04 23:07] LABS: Bacteria Urine 1+ (None Seen); Hyaline Casts Urine 0-2 /LPF (0-2); WBC Urine 21-50 /HPF (0-5)
[2024-09-04 23:23] LABS: Influenza A PCR NEGATIVE (Negative); Influenza B PCR NEGATIVE (Negative); Resp Syncy Virus RNA Qual PCR NEGATIVE (Negative); SARS COV2 PCR INHOUSE POSITIVE (Negative)
[2024-09-04] MEDS: vancomycin HCL 1,000 MG, vancomycin HCL 750 MG in 0.9 % Sodium Chloride 500 ML 267.5 MG IV (23:33)
[2024-09-04 23:35] VITALS: BP 97/60; PULSE 86; RESP 16; O2SAT 100
--- NOTE | 2024-09-04 23:42 | P.HPHOSP_ITS ---
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 Unable to obtain history or review of systems from the patient. Patient was sent to the ER for decreased level of consciousness. Also found to have tachycardic with tachypneic. Patient has been having a productive cough with yellowish sputum as per outside facility. In the emergency department, FiO2 increased from 28% to 35%. Imaging concerning for pneumonia. Patient tested positive for COVID-19 infection. Review of Systems 2 Review of Systems: Yes Unobtainable due to mental condition and Unobtainable due to mental status [facility] Medical History Tracheostomy dependent Mantle cell lymphoma Aspiration into airway Stage IV decubitus ulcer Osteomyelitis of pelvis Anemia Toxoplasmosis Encephalopathy CLASS A LINEMAN lymphoma Rectal bleeding H/O: RCT (rotator cuff tear) Depression Appendicitis Chronic pain Kidney stone Mantle cell lymphoma Family History Mother COPD (chronic obstructive pulmonary disease) Sister Colon cancer Surgical History History of appendectomy Social History 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 Housing: Senior Living Housing Other:: [facility] Do you presently have visiting nurse or other home services: No Unable to assess alcohol history related to: Unable to respond Alcohol intake: unknown Patient Tobacco Use Status: Never used Tobacco Second Hand Smoke Exposure: No Substance Use Type: Unknown Advance Directives Date on File: 06/04/23 service: No Current occupational status: unemployed Meds Allergies Allergy/AdvReac Type Severity Reaction Status Date / Time cyclobenzaprine [Flexeril] Allergy Unknown Palpitation Verified 09/04/24 21:46 s Active Medications: Current Medications Vancomycin HCl 1,000 mg/Vancomycin HCl 750 mg/ Sodium Chloride 535 mls @ 267.5 mls/hr IV ONCE ONE Stop: 09/05/24 00:59 Last Admin: 09/04/24 23:33 Dose: 267.5 mls/hr Meropenem (Meropenem 1 Gm Vial) 1 gm IVPUSH Q8H [facility] Pharmacy Consult (Consult Rx Vancomycin Dosing) 1 each MISCELLANE DAILY PRN PRN Reason: Consult order Home Medications ?Medication ?Instructions ?Recorded ?Confirmed ?Last Taken ?Type acetaminophen 325 mg tablet 650 mg feeding tube Q4H PRN Fever 01/02/23 01/27/24 09/22/23 History Or Pain albuterol sulfate 2.5 mg/3 mL 2.5 mg inhalation Q4H PRN 01/02/23 01/27/24 Unknown History (0.083 %) solution for nebulization Shortness Of Breath Or Wheezing ascorbic acid (vitamin C) 250 mg 250 mg feeding tube DAILY 01/02/23 01/27/24 09/22/23 History tablet atovaquone 750 mg/5 mL oral 750 mg feeding tube BIDWM 01/02/23 01/27/24 09/22/23 History suspension baclofen 10 mg tablet 5 mg feeding tube 01/02/23 01/27/24 09/22/23 History TID@0900,1300,1700 bisacodyl 10 mg rectal suppository 10 mg MT DAILY PRN Constipation 01/02/23 01/27/24 Unknown History cholecalciferol (vitamin D3) 1,250 1,250 mcg feeding tube QMONTH 01/02/23 01/27/24 08/29/23 History mcg (50,000 unit) tablet finasteride 5 mg tablet 5 mg feeding tube DAILY 01/02/23 01/27/24 09/22/23 History glycopyrrolate 1 mg tablet 0.5 mg feeding tube BID 01/02/23 01/27/24 09/22/23 History guaifenesin 200 mg/5 mL oral liquid 200 mg feeding tube Q4H PRN Cough 01/02/23 01/27/24 Unknown History lacosamide 200 mg tablet 200 mg feeding tube BID 01/02/23 01/27/24 09/22/23 History leucovorin calcium 25 mg tablet 25 mg feeding tube BEDTIME 01/02/23 01/27/24 09/22/23 History loperamide 2 mg capsule 2 mg feeding tube Q4H PRN Diarrhea 01/02/23 01/27/24 Unknown History lorazepam 0.5 mg tablet 0.5 mg feeding tube Q6H PRN Anxiety 01/02/23 01/27/24 09/22/23 History lorazepam 2 mg/mL injection 2 mg IM ONCE PRN Seizures 01/02/23 01/27/24 Unknown History solution magnesium hydroxide 400 mg/5 mL 30 ml feeding tube DAILY PRN 01/02/23 01/27/24 Unknown History oral suspension (Milk of Magnesia) Constipation melatonin 3 mg tablet 3 mg feeding tube BEDTIME 01/02/23 01/27/24 09/22/23 History morphine 10 mg/5 mL oral solution 5 mg feeding tube DAILY 01/02/23 01/27/24 09/22/23 History ondansetron HCl 2 mg/mL 4 mg IM Q4H PRN Nausea And Vomiting 01/02/23 01/27/24 Unknown History intravenous solution oxycodone 5 mg tablet 5 mg feeding tube Q4H PRN Pain 01/02/23 01/27/24 09/22/23 10:02 History (Scale Score 4-6) scopolamine base 1 mg over 3 days 1 patch transdermal Q3D 01/02/23 01/27/24 09/22/23 History transdermal patch sennosides 8.6 mg-docusate sodium 2 tab-cap PO BID@0900,1700 01/02/23 01/27/24 09/22/23 History 50 mg tablet (Senna with Docusate Constipation Sodium) sodium phosphates 19 gram-7 118 ml MT DAILY PRN Constipation 01/02/23 01/27/24 Unknown History gram/118 mL enema (Fleet Enema) tramadol 50 mg tablet 50 mg feeding tube Q4H PRN Pain 01/02/23 01/27/24 Unknown History (Scale Score 1-3) zinc sulfate 50 mg zinc (220 mg) 50 mg feeding tube DAILY 01/02/23 01/27/24 09/22/23 History tablet multivitamin 1 tab feeding tube DAILY 01/31/23 01/27/24 09/22/23 History pyrimethamine 25 mg tablet 50 mg feeding tube DAILY 01/31/23 01/27/2409/22/24 History betamethasone dipropionate 0.05 % 1 appl topical DAILY 06/04/23 01/27/24 09/22/23 History topical ointment carboxymethylcellulose sodium 0.25 2 drp ophthalmic (eye) BID 06/04/23 01/27/24 09/22/23 History % eye drops morphine 10 mg/5 mL oral solution 2.5 mg feeding tube TID 06/04/23 01/27/24 09/22/23 History sucralfate 1 gram tablet 1 g PO BID@1300,1700 06/04/23 01/27/24 09/22/23 History acetylcysteine 200 mg/mL (20 %) 30 ml inhalation Q12H PRN THICK 09/22/23 01/27/24 Unknown History solution AIRWAY SECRETION ibuprofen 600 mg tablet 600 mg PO Q8H PRN FEVER 09/22/23 01/27/24 Unknown History UNRESPONSIVE TO APAP linaclotide 145 mcg capsule 145 mcg G-tube DAILY 01/27/24 01/27/24 Unknown History (Linzess) loratadine 10 mg tablet 10 mg feeding tube DAILY 01/27/24 01/27/24 Unknown History midodrine 5 mg tablet 5 mg PO TID 01/27/24 01/27/24 Unknown History omeprazole 20 mg capsule,delayed 20 mg feeding tube BID 01/27/24 01/27/24 Unknown History release polyethylene glycol 3350 17 gram 17 g feeding tube DAILY 01/27/24 01/27/24 Unknown History oral powder packet (Miralax) simethicone 80 mg chewable tablet 80 mg feeding tube Q6H 01/27/24 01/27/24 Unknown History Saccharomyces boulardii 250 mg 250 mg PO BID 02/13/24 Unknown History capsule Physical Exam 2 Vital Signs and Narrative: Vital Signs: Last Vital Signs Temp 98.6 F 09/04/24 21:51 Pulse 86 09/04/24 23:35 Resp 16 09/04/24 23:35 BP 97/60 09/04/24 23:35 Pulse Ox 100 09/04/24 23:35 O2 Del Method Trach Collar 09/04/24 23:35 FiO2 38 09/04/24 23:35 BMI result Body Mass Index 21.4 Middle-aged male lying in bed in mild distress on oxygen via trach collar Neck supple, no JVD Regular rate and rhythm, S1-S2 heard Crackles present no wheezing Abdomen soft nontender, peg tube in place Patient drowsy and without eye opening to verbal stimulus, extremities contracted Psych: Lethargic Results Labs 09/04/24 22:27 09/04/24 22:27 Labs: Laboratory Results - last 24 hr 09/04/24 09/04/24 09/04/24 22:18 22:27 22:49 MCV 90.8 MCH 30.2 MCHC 33.3 RDW 15.0 Plt Count 113 L D MPV 9.7 Immature Gran % (Auto) 0.7 H Neut % (Auto) 80.1 H Lymph % (Auto) 5.5 L Leslie % (Auto) 13.5 H Eos % (Auto) 0.0 Baso % (Auto) 0.2 Lymph # (Auto) 0.3 L Leslie # (Auto) 0.8 Eos # (Auto) 0.0 Baso # (Auto) 0.0 Abs Immat Gran (auto) 0.04 H Absolute Neuts (auto) 4.7 Absolute Nucleated RBC 0.000 Nucleated RBC % (auto) 0.0 PT 13.0 H INR 1.1 VBG pH VBG pCO2 VBG pO2 VBG HCO3 VBG O2 Saturation VBG Base Excess Anion Gap 15 Estim Creat Clear Calc 63.8 Estimated GFR 58 Random Glucose 102 Lactic Acid 1.5 Calcium 8.2 L D Magnesium 2.4 Total Bilirubin 0.4 AST 82 H ALT 102 H Alkaline Phosphatase 189 H Troponin I High Sens 8.1 D C-Reactive Protein 9.92 H B-Natriuretic Peptide 85 Total Protein 7.3 Albumin 3.5 Hold Green Top See Note Urine Color Yellow Urine Appearance Cloudy Urine pH 5.5 Ur Specific [place] 1.020 Urine Protein 300 (3+) H Urine Glucose (UA) Negative Urine Ketones Trace Urine Blood Large (3+) H Urine Nitrite Negative Ur Leukocyte Esterase Moderate (2+) H Urine RBC 6-10 H Urine WBC 21-50 H Ur Squamous Epith Cells 3-5 Urine Bacteria 1+ Hyaline Casts 0-2 Influenza Type A (PCR) NEGATIVE Influenza Type B (PCR) NEGATIVE RSV RNA Qual (PCR) NEGATIVE SARS-CoV-2 RNA (RT-PCR) POSITIVE A 09/04/24 22:58 MCV MCH MCHC RDW Plt Count MPV Immature Gran % (Auto) Neut % (Auto) Lymph % (Auto) Leslie % (Auto) Eos % (Auto) Baso % (Auto) Lymph # (Auto) Leslie # (Auto) Eos # (Auto) Baso # (Auto) Abs Immat Gran (auto) Absolute Neuts (auto) Absolute Nucleated RBC Nucleated RBC % (auto) PT INR VBG pH 7.53 H VBG pCO2 38 VBG pO2 95 VBG HCO3 32 H VBG O2 Saturation 100.0 VBG Base Excess 9.4 Anion Gap Estim Creat Clear Calc Estimated GFR Random Glucose Lactic Acid Calcium Magnesium Total Bilirubin AST ALT Alkaline Phosphatase Troponin I High Sens C-Reactive Protein B-Natriuretic Peptide Total Protein Albumin Hold Green Top Urine Color Urine Appearance Urine pH Ur Specific [place] Urine Protein Urine Glucose (UA) Urine Ketones Urine Blood Urine Nitrite Ur Leukocyte Esterase Urine RBC Urine WBC Ur Squamous Epith Cells Urine Bacteria Hyaline Casts Influenza Type A (PCR) Influenza Type B (PCR) RSV RNA Qual (PCR) SARS-CoV-2 RNA (RT-PCR) Assessment and Plan (1) Acute encephalopathy: Status: Acute (2) Pneumonia: Status: Acute (3) Acute UTI: Status: Acute Plan This is a 53-year-old male, long-term resident at [facility]- term care [facility], nonverbal and bed-bound at baseline with pertinent history of chronic respiratory failure status post tracheostomy plus PEG tube, stage IV mantle cell lymphoma, 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 #. Acute metabolic encephalopathy and acute on chronic hypoxemic respiratory failure due to COVID-19 pneumonia with superimposed bacterial infection: Will admit patient with supplemental oxygen through trach collar. Increase of FiO2 from 28% (baseline) to 35%. Broad-spectrum antibiotics with IV vancomycin and IV meropenem (for UTI as below). Monitor mentation and wean oxygen as tolerated. IV Decadron for COVID-19 #. Acute UTI: Noted history of ESBL E coli: IV meropenem. Follow urine culture #. Cerebral toxoplasmosis: Continue atovaquone, pyrimethamine plus leucovorin #. Status post tracheostomy + PEG tube: Tracheostomy care, suctioning. Resume tube feeds in a.m.. Continue scopolamine plus glycopyrrolate patch for secretions #. Paraparesis with contractures: Bed-bound at baseline. Frequent positioning and offload all bony prominences. On baclofen #. BPH: On finasteride #. Seizure disorder: On lacosamide #. Gastroesophageal reflux disease: On PPI Med rec pending DVT prophylaxis: Lovenox Full code Admit as inpatient and will require two night minimum hospital stay for IV antibiotics (as above), which is not possible in a lesser acute setting. Quality Stroke Does the patient have a stroke diagnosis?: No VTE Prior VTE?: No VTE Risk Level:: Medical - moderate - high VTE Device Contraindication: Treatment Not Indicated VTE Drug Contraindication: N/A - Med Ordered
[2024-09-05] VITALS (12 sets, daily range): BP systolic 100–119; BP diastolic 59–72; PULSE 79–110; RESP 14–25; TEMP 36.3–38.4; O2SAT 92–98; BMI 21.2
[2024-09-05] MEDS: dexAMETHasone sod phosphate 4 MG/ML VIAL 6 MG IVPUSH ×2 (00:05→09:03)
[2024-09-05] MEDS: Enoxaparin Sodium 40 MG/0.4 ML SYRINGE SUBCUT (00:05)
[2024-09-05] MEDS: Meropenem 1 GM VIAL IVPUSH ×3 (00:36→16:38)
[2024-09-05] MEDS: 0.9 % Sodium Chloride Flush 3 ML SYRINGE IVFLUSH ×3 (00:50→22:24)
--- NOTE | 2024-09-05 01:00 | PC.NURSE ---
PATIENT HAD MUITPLE EPISODES OF PRODUCTIVE COUGH SECRETIONS COLLECTED AND SENT DOWN AND THIS RN SUCTIONED TRACH
--- NOTE | 2024-09-05 03:41 | PC.NURSE ---
Patient more alert at this time, using hand signals to indicate needs. Patient was incont of stool, changed and karen care provided. Patient continues to produce secretions from trach, have been externally suctioned by this RN. patient appearing calm and resting quietly
[2024-09-05 04:57] LABS: MANUAL DIFF FLAG NO
[2024-09-05 05:00] LABS: Basophils Percent Auto 0.2 % (0-2); Hematocrit 38.8 % (42.0-52.0); Hemoglobin 13.1 g/dl (14.0-18.0); Imm Gran Abs Auto 0.03 X10*3/uL (0.00-0.03); Imm Gran Pct Auto 0.6 % (0.0-0.4); Lymphocytes Absolute Auto 0.3 X10*3/uL (1.2-4.9); Lymphocytes Percent Auto 6.2 % (20-40); Mean Corpuscular HGB Conc 33.8 g/dl (31.0-36.0); Mean Corpuscular Hemoglobin 30.5 pg (27.0-33.0); Mean Corpuscular Volume 90.4 fL (80.0-98.0); Mean Platelet Volume 10.4 fL (9.4-12.4); Monocytes Absolute Auto 0.5 X10*3/uL (0.1-1.2); Monocytes Percent Auto 10.2 % (2-11); Neutrophils Absolute Auto 4.1 x10*3/uL (2.0-8.3); Neutrophils Percent Auto 82.8 % (45-73); Platelet Count 106 X10*3/uL (160-400); Red Blood Count 4.29 X10*6/uL (4.60-5.80); Red Cell Distribution Width 14.9 % (11.0-16.0)
[2024-09-05 05:12] LABS: Anion Gap 13 (12-20); Blood Urea Nitrogen 39 mg/dL (9-16); Calcium 8.7 mg/dL (8.4-10.2); Carbon Dioxide 26 mmol/L (22-29); Chloride 105 mmol/L (96-108); Creatinine Clr Calc Pharmacy 69.7; Estimated Glomerular Filt Rate > 60; Glucose Random 107 mg/dL (60-115); Potassium 3.8 mmol/L (3.3-5.1); Sodium 140 mmol/L (135-145)
--- NOTE | 2024-09-05 07:30 | PC.NURSE ---
Assumed care of patient at 0700, patient is awake and alert, tracks staff with his eyes, able to point and give thumbs up. patient incontinent of liquid diarrhea and urine. patient cleaned up, new linens and pads, condom cath reapplied. patient temp 99.7 rectally, rectal probe placed for temperature monitoring. patient VSS, noted to be in normal sinus rhythm. patient noted to have meplex patch on right hip.
[2024-09-05] MEDS: Acetaminophen Supp 650 MG SUPP.RECT PR (09:03)
--- NOTE | 2024-09-05 09:20 | PC.NURSE ---
patient noted to be febrile, PRN tylenol given per OCT. patient incontinent of diarrhea, patient cleaned up, new pads and linens. patient 18# in right hand fell out, gauze applied.
--- NOTE | 2024-09-05 09:25 | PHA.MEDREC ---
Pharmacy Consult ? Medication Reconciliation Pharmacy has completed the medication reconciliation. Utilized list from facility
--- NOTE | 2024-09-05 09:46 | MHC.CM.PN ---
Pt resides at [facility], update sent to them via [employer]. Pt. is non verbal at base line and HCP has been invoked. CM spoke with HCP: Cornelius Johnson on the phone and confirmed DC plan is for pt to return to [facility] via BLS. CM to follow for DC needs.
--- NOTE | 2024-09-05 10:08 | MHC.CLN ---
NUTRITION PATIENT WITH TRACH AND PEG. UNABLE TO TAKE PO AND REQUIRES NUTRITION/HYDRATION VIA PEG. DX INCLUDE STAGE IV LYMPHOMA AND BOX MAKER PAPERBOARD TOXOPLASMOSIS. RECOMMEND TUBE FEEDING: OSMOLITE 1.5 AT MAX GOAL RATE 55 ML PER HOUR, FREE WATER FLUSH 240 ML Q 6 HOURS. PROVIDES 1980 KCALS (29 KCALS/KG), 82.8 G PROTEIN (1.22 G/KG), 1966 ML FREE WATER FROM FORMULA AND FLUSH (29 ML/KG). START TUBE FEED AT 20 ML PER HOUR, INCREASE 10 ML EVERY HOUR TO MAX GOAL RATE OF 55 ML PER HOUR MONITOR FOR TUBE FEED TOLERANCE, RESIDUALS AND LYTES. CLINICAL NUTRITION ASSESSMENT TO BE COMPLETED UPON ADMISSION TO UNIT.
[2024-09-05] MEDS: Acetaminophen 1,000 MG/100 ML PIGGYBACK 400 MG IV (10:52)
[2024-09-05] MEDS: 0.9 % Sodium Chloride 1,000 ML 999 ML IV (11:10)
[2024-09-05] MEDS: Simethicone 80 MG TAB.CHEW G-TUBE ×3 (11:24→22:22)
[2024-09-05] MEDS: vancomycin HCL 750 MG in 0.9 % Sodium Chloride 250 ML 265 MG IV (11:34)
[2024-09-05] MEDS: Midodrine HCl 2.5 MG TABLET 7.5 MG G-TUBE ×3 (11:37→22:23)
--- NOTE | 2024-09-05 11:49 | PC.NURSE ---
patient moved into hospital bed for comfort, patient is awake and alert, tracks staff with eyes able to minimally converse with hand gestures. patient noted to be increasingly febrile despite NC tylenol, patient also having diarrhea, inpatient attending notified and ordered IV tylenol, patient now afebrile, no longer tachycardic. bolus fluids ordered and started per Oct with good result, patient normotensive. patient PEG tube in placed, verified with auscultation, patient medicated per OCT thru PEG. patient tolerates as needed deep suction well, maintains o2 sat. patient appears to be comfortable at this time, resp even and unlabored.
[2024-09-05] MEDS: Scopolamine 1.5 MG PATCH.TD.3 TRANSDERMA (11:57)
[2024-09-05 14:03] LABS: Lactic Acid 0.9 mmol/L (0.5-2.0)
--- NOTE | 2024-09-05 14:22 | PC.NURSE ---
patient tube feed started at 20ml/hr with 240ml q6hr flush programmed. patient is positioned semi solorzano in bed, resp even and unlabored, skin dry and intact. VSS.
--- NOTE | 2024-09-05 14:35 | HO.PM.IMPN ---
Subjective Subjective Date of Service: 09/05/24 Interval History: seen and evaluated this morning looks comfortable On trach collar 6L with whitish secretions Review of Systems Review of Systems: Yes all other systems are reviewed and are negative Physical Exam Vital Signs: Vital Signs: Last Vital Signs Temp 98.2 F 09/05/24 14:20 Pulse 83 09/05/24 14:20 Resp 16 09/05/24 14:20 BP 101/64 09/05/24 14:20 Pulse Ox 95 09/05/24 14:20 O2 Del Method Trach Collar 09/05/24 14:20 O2 Flow Rate 6 09/05/24 14:20 FiO2 35 09/05/24 05:18 BMI result Body Mass Index 21.4 Const: Other: Constitutional : Awake,? not in distress Neck : Normal inspection, Supple Cardiovascular : RRR, no JVP, no lower extremity edema Respiratory : fair bilateral air entry,? basal bilateral crackles, Trach with significant whitish secretions on 6L collar Gastrointestinal:? soft, lax, Normal bowel sounds, G-tube in place, no significant tenderness Skin : Warm, Dry, chronic decubetus ulcers Neurological : Alert, No focal deficit but retracted Objective Data Active Medications Acetaminophen (Acetaminophen Supp 650 Mg Supp.Rect) 650 mg UT Q6H PRN PRN Reason: Pain, Mild 1-3,fever,headache Last Admin: 09/05/24 09:03 Dose: 650 mg Documented By: DARREN Acetaminophen (Acetaminophen 325 Mg Tablet) 650 mg G-TUBE Q4H PRN PRN Reason: Fever Or Pain Acetylcysteine (Acetylcysteine 20 % 6,000 Mg/30 Ml Vial) 600 mg INHALE Q12H PRN PRN Reason: THICK AIRWAY SECRETION Albuterol Sulfate (Albuterol Sulfate (0.083%) 2.5 Mg/3 Ml Vial.Neb) 2.5 mg INHALE Q4H PRN PRN Reason: Shortness Of Breath Or Wheezing Artificial Tears (Artificial Tears 15 Ml Drops) 2 drop EYE-BOTH BID RACHELL Atovaquone (Atovaquone 750 Mg/5 Ml Oral.Susp) 750 mg G-TUBE BID RACHELL Baclofen (Baclofen 10 Mg Tablet) 5 mg G-TUBE TID RACHELL Calcium Carbonate (Calcium Carbonate 750 Mg Tab.Chew) 750 mg PO Q4H PRN PRN Reason: Heartburn Ceftriaxone Sodium 1 gm/ (Lidocaine HCl 2.1 ml) 0 gm IM DAILY [facility] Stop: 09/08/24 09:01 Last Admin: 09/05/24 12:01 Dose: Not Given Documented By: DARREN Non-Admin Reason: See Note Comments: provider to change Dexamethasone Sodium Phosphate (Dexamethasone Sod Phosphate 4 Mg/Ml Vial) 6 mg IVPUSH DAILY [facility] Last Admin: 09/05/24 09:03 Dose: 6 mg Documented By: DARREN Enoxaparin Sodium (Enoxaparin Sodium 40 Mg/0.4 Ml Syringe) 40 mg SUBCUT Q24H [facility] Last Admin: 09/05/24 00:05 Dose: 40 mg Documented By: ALBERTO Finasteride (Finasteride 5 Mg Tablet) 5 mg PO DAILY [facility] Glycopyrrolate (Glycopyrrolate 1 Mg Tablet) 1 mg G-TUBE BID [facility] Guaifenesin (Guaifenesin 200 Mg/10 Ml 10 Ml Liquid) 10 ml PO Q4H PRN PRN Reason: Cough Vancomycin HCl 750 mg/ Sodium (Chloride) 265 mls @ 265 mls/hr IV Q12H [facility] Last Infusion: 09/05/24 13:13 Dose: Infused Documented By: DARREN Ibuprofen (Ibuprofen 600 Mg Tablet) 600 mg G-TUBE Q8H PRN PRN Reason: FEVER UNRESPONSIVE TO APAP Lacosamide (Lacosamide 100 Mg Tablet) 200 mg G-TUBE BID [facility] Leucovorin Calcium (Leucovorin Calcium 5 Mg Tablet) 25 mg G-TUBE BEDTIME [facility] Lidocaine (Lidocaine 4 % Patch Adh..Patch) 1 patch TRANSDERMA DAILY PRN; Protocol PRN Reason: Pain, Mild (Pain Scale 1-3) Lorazepam (Lorazepam 0.5 Mg Tablet) 0.5 mg G-TUBE Q6H PRN PRN Reason: Anxiety Lorazepam (Lorazepam 2 Mg/Ml Vial) 2 mg IM ONCE PRN PRN Reason: Seizures Magnesium Hydroxide (Milk Of Magnesia 30 Ml Oral.Susp) 30 ml PO DAILY PRN PRN Reason: Constipation Melatonin (Melatonin 3 Mg Tablet) 6 mg PO BEDTIME PRN PRN Reason: Insomnia Melatonin (Melatonin 3 Mg Tablet) 3 mg G-TUBE BEDTIME [facility] Meropenem (Meropenem 1 Gm Vial) 1 gm IVPUSH Q8H [facility] Last Admin: 09/05/24 07:31 Dose: 1 gm Documented By: DARREN Midodrine (Midodrine Hcl 2.5 Mg Tablet) 7.5 mg G-TUBE TID [facility] Last Admin: 09/05/24 11:37 Dose: 7.5 mg Documented By: DARREN Morphine Sulfate (Morphine Sulfate Oral Cady 10 Mg/5 Ml Solution) 2.5 mg G-TUBE DAILY [facility] Multi-Ingred Cream/Lotion/Oil/Oint (Mineral Oil/Petrolatum,White 106 Gm Tube) 1 appl TOPICAL DAILY PRN PRN Reason: Dry Skin Nitrofurantoin Macrocrystals (Nitrofurantoin Monohyd/M-Cryst 100 Mg Capsule) 100 mg PO BID [facility] Non-Formulary Medication (Linaclotide [Linzess]) 145 mcg G-TUBE DAILY [facility] Non-Formulary Medication (Pyrimethamine) 50 mg G-TUBE DAILY [facility] Omeprazole (Omeprazole 20 Mg Capsule.Dr) 20 mg PO BID@0630,1630 [facility] Ondansetron HCl (Ondansetron Hcl 4 Mg/2 Ml Vial) 4 mg IVPUSH Q8H PRN PRN Reason: Nausea and Vomiting Oxycodone HCl (Oxycodone Hcl Immed Release 5 Mg Tablet) 5 mg G-TUBE Q6H PRN PRN Reason: Pain (Scale Score 7-10) Pharmacy Consult (Consult Rx Vancomycin Dosing) 1 each MISCELLANE DAILY PRN PRN Reason: Consult order Scopolamine (Scopolamine 1.5 Mg Patch.Td.3) 1.5 mg TRANSDERMA Q3D [facility] Last Admin: 09/05/24 11:57 Dose: 1.5 mg Documented By: DARREN Senna/Docusate Sodium (Sennosides/Docusate Sodium Tablet) 2 tab PO BID@0900,1700 [facility] Simethicone (Simethicone 80 Mg Tab.Chew) 80 mg G-TUBE Q6H [facility] Last Admin: 09/05/24 11:24 Dose: 80 mg Documented By: DARREN Sodium Biphosphate/Sodium Phosphate (Sodium Phosphate,[place]-Dibasic 133 Ml Enema) 118 ml UT DAILY PRN PRN Reason: Constipation Sodium Chloride (0.9 % Sodium Chloride Flush 3 Ml Syringe) 3 ml IVFLUSH QSHIFT [facility] Last Admin: 09/05/24 07:33 Dose: Not Given Documented By: DARREN Non-Admin Reason: IV Running Sucralfate (Sucralfate 1 Gm Tablet) 1 gm PO BID@1300,1700 RACHELL Tramadol HCl (Tramadol Hcl 50 Mg Tablet) 50 mg G-TUBE Q4H PRN PRN Reason: Pain (Scale Score 1-3) Labs 09/05/24 04:53 09/05/24 04:53 Labs: Laboratory Results - last 24 hr 09/04/24 09/04/24 09/04/24 22:18 22:27 22:49 MCV 90.8 MCH 30.2 MCHC 33.3 RDW 15.0 Plt Count 113 L D MPV 9.7 Immature Gran % (Auto) 0.7 H Neut % (Auto) 80.1 H Lymph % (Auto) 5.5 L [place] % (Auto) 13.5 H Eos % (Auto) 0.0 Baso % (Auto) 0.2 Lymph # (Auto) 0.3 L [place] # (Auto) 0.8 Eos # (Auto) 0.0 Baso # (Auto) 0.0 Abs Immat Gran (auto) 0.04 H Absolute Neuts (auto) 4.7 Absolute Nucleated RBC 0.000 Nucleated RBC % (auto) 0.0 PT 13.0 H INR 1.1 VBG pH VBG pCO2 VBG pO2 VBG HCO3 VBG O2 Saturation VBG Base Excess Anion Gap 15 Estim Creat Clear Calc 63.8 Estimated GFR 58 Random Glucose 102 Lactic Acid 1.5 Calcium 8.2 L D Magnesium 2.4 Total Bilirubin 0.4 AST 82 H ALT 102 H Alkaline Phosphatase 189 H Troponin I High Sens 8.1 D C-Reactive Protein 9.92 H B-Natriuretic Peptide 85 Total Protein 7.3 Albumin 3.5 Hold Green Top See Note Urine Color Yellow Urine Appearance Cloudy Urine pH 5.5 Ur Specific West 1.020 Urine Protein 300 (3+) H Urine Glucose (UA) Negative Urine Ketones Trace Urine Blood Large (3+) H Urine Nitrite Negative Ur Leukocyte Esterase Moderate (2+) H Urine RBC 6-10 H Urine WBC 21-50 H Ur Squamous Epith Cells 3-5 Urine Bacteria 1+ Hyaline Casts 0-2 Influenza Type A (PCR) NEGATIVE Influenza Type B (PCR) NEGATIVE RSV RNA Qual (PCR) NEGATIVE SARS-CoV-2 RNA (RT-PCR) POSITIVE A 01/21/25 01/22/25 01/22/25 22:58 04:53 12:54 MCV 90.4 MCH 30.5 MCHC 33.8 RDW 14.9 Plt Count 106 L MPV 10.4 Immature Gran % (Auto) 0.6 H Neut % (Auto) 82.8 H Lymph % (Auto) 6.2 L [place] % (Auto) 10.2 Eos % (Auto) 0.0 Baso % (Auto) 0.2 Lymph # (Auto) 0.3 L [place] # (Auto) 0.5 Eos # (Auto) 0.0 Baso # (Auto) 0.0 Abs Immat Gran (auto) 0.03 Absolute Neuts (auto) 4.1 Absolute Nucleated RBC 0.000 Nucleated RBC % (auto) 0.0 PT INR VBG pH 7.53 H VBG pCO2 38 VBG pO2 95 VBG HCO3 32 H VBG O2 Saturation 100.0 VBG Base Excess 9.4 Anion Gap 13 Estim Creat Clear Calc 69.7 Estimated GFR > 60 Random Glucose 107 Lactic Acid 0.9 Calcium 8.7 D Magnesium Total Bilirubin AST ALT Alkaline Phosphatase Troponin I High Sens C-Reactive Protein B-Natriuretic Peptide Total Protein Albumin Hold Green Top Urine Color Urine Appearance Urine pH Ur Specific West Urine Protein Urine Glucose (UA) Urine Ketones Urine Blood Urine Nitrite Ur Leukocyte Esterase Urine RBC Urine WBC Ur Squamous Epith Cells Urine Bacteria Hyaline Casts Influenza Type A (PCR) Influenza Type B (PCR) RSV RNA Qual (PCR) SARS-CoV-2 RNA (RT-PCR) Microbiology Microbiology Results: Microbiology 09/05/24 00:37 Gram Stain - Final Sputum - Expectorated Assessment and Plan (1) COVID: Status: Acute (2) Acute encephalopathy: Status: Acute (3) Pneumonia: Status: Acute (4) Chronic hypoxic respiratory failure: Status: Acute (5) Tracheostomy dependent: Status: Acute (6) Acute UTI: Status: Acute Plan This is a 53-year-old male, long-term resident at [facility] long-term care [facility], nonverbal and bed-bound at baseline with pertinent history of chronic respiratory failure status post tracheostomy plus PEG tube, stage IV mantle cell lymphoma, 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 # Acute metabolic encephalopathy and acute on chronic hypoxemic respiratory failure due to COVID-19 pneumonia with superimposed bacterial infection supplemental oxygen through trach collar pending cultures IV vancomycin and IV meropenem To give DEcadron wean oxygen as tolerated Follow Vancomycin trough # Acute UTI history of ESBL E coli: IV meropenem Follow urine culture # Hx Cerebral toxoplasmosis Continue atovaquone, pyrimethamine plus leucovorin # Status post tracheostomy + PEG tube Tracheostomy care, suctioning. Resume tube feeds Continue scopolamine plus glycopyrrolate patch for secretions # Paraparesis with contractures Bed-bound at baseline. Frequent positioning and offload all bony prominences. On baclofen # BPH: On finasteride # Seizure disorder: On lacosamide # Gastroesophageal reflux disease: On PPI DVT prophylaxis: Lovenox Full code Admit as inpatient and will require overnight hospital stay for IV antibiotics pending final cultures. which is not possible in a lesser acute setting. Quality Stroke Does the patient have a stroke diagnosis?: No VTE Prior VTE?: No VTE Risk Level:: Medical - moderate - high VTE Device Contraindication: Treatment Not Indicated VTE Drug Contraindication: N/A - Med Ordered
[2024-09-05] MEDS: Baclofen 10 MG TABLET 5 MG G-TUBE ×2 (14:37→22:23)
[2024-09-05] MEDS: Sucralfate 1 GM TABLET PO (17:43)
[2024-09-05] MEDS: Omeprazole 20 MG CAPSULE.DR PO (17:43)
[2024-09-05] MEDS: Sennosides/Docusate Sodium TABLET 2 TAB PO (17:43)
[2024-09-05] MEDS: Nitrofurantoin Monohyd/M-Cryst 100 MG CAPSULE PO (22:22)
[2024-09-05] MEDS: Glycopyrrolate 1 MG TABLET G-TUBE (22:22)
[2024-09-05] MEDS: Melatonin 3 MG TABLET G-TUBE (22:22)
[2024-09-05] MEDS: Lacosamide 100 MG TABLET 200 MG G-TUBE (22:23)
[2024-09-05] MEDS: Atovaquone 750 MG/5 ML ORAL.SUSP G-TUBE (22:23)
[2024-09-06] VITALS: BP 109/59; PULSE 87; RESP 20; TEMP 39; O2SAT 97
[2024-09-06] MEDS: Meropenem 1 GM VIAL IVPUSH ×4 (00:19→22:51)
[2024-09-06] MEDS: Enoxaparin Sodium 40 MG/0.4 ML SYRINGE SUBCUT ×2 (00:19→22:51)
[2024-09-06] MEDS: Acetaminophen 325 MG TABLET 650 MG G-TUBE (00:19)
[2024-09-06] MEDS: vancomycin HCL 750 MG in 0.9 % Sodium Chloride 250 ML 265 MG IV ×2 (00:22→12:57)
[2024-09-06 01:19] VITALS: TEMP 36.7
[2024-09-06 04:00] VITALS: BP 108/64; PULSE 95; RESP 20; TEMP 37.2; O2SAT 95
[2024-09-06] MEDS: Omeprazole 20 MG CAPSULE.DR PO ×2 (06:09→16:27)
[2024-09-06] MEDS: Simethicone 80 MG TAB.CHEW G-TUBE ×4 (06:10→22:50)
[2024-09-06 07:42] VITALS: BP 92/55; PULSE 74; RESP 16; TEMP 37.1; O2SAT 99
[2024-09-06 08:36] LABS: MANUAL DIFF FLAG NO
[2024-09-06 08:45] LABS: Basophils Percent Auto 0.3 % (0-2); Hematocrit 37.2 % (42.0-52.0); Hemoglobin 11.9 g/dl (14.0-18.0); Imm Gran Abs Auto 0.02 X10*3/uL (0.00-0.03); Imm Gran Pct Auto 0.6 % (0.0-0.4); Lymphocytes Absolute Auto 0.6 X10*3/uL (1.2-4.9); Lymphocytes Percent Auto 17.4 % (20-40); Mean Corpuscular Hemoglobin 30.4 pg (27.0-33.0); Mean Corpuscular Volume 94.9 fL (80.0-98.0); Mean Platelet Volume 10.1 fL (9.4-12.4); Monocytes Absolute Auto 0.6 X10*3/uL (0.1-1.2); Monocytes Percent Auto 16.8 % (2-11); Neutrophils Absolute Auto 2.1 x10*3/uL (2.0-8.3); Neutrophils Percent Auto 64.9 % (45-73); Platelet Count 102 X10*3/uL (160-400); Red Blood Count 3.92 X10*6/uL (4.60-5.80); Red Cell Distribution Width 15.2 % (11.0-16.0); White Blood Count 3.3 X10*3/uL (4.8-10.8)
[2024-09-06 09:02] LABS: Anion Gap 10 (12-20); Blood Urea Nitrogen 26 mg/dL (9-16); Calcium 9.1 mg/dL (8.4-10.2); Carbon Dioxide 29 mmol/L (22-29); Chloride 112 mmol/L (96-108); Estimated Glomerular Filt Rate > 60; Glucose Random 86 mg/dL (60-115); Potassium 3.9 mmol/L (3.3-5.1); Sodium 147 mmol/L (135-145)
[2024-09-06] MEDS: Sennosides/Docusate Sodium TABLET 2 TAB PO ×2 (09:30→16:27)
[2024-09-06] MEDS: Midodrine HCl 2.5 MG TABLET 7.5 MG G-TUBE ×3 (09:30→22:50)
[2024-09-06] MEDS: Glycopyrrolate 1 MG TABLET G-TUBE ×2 (09:31→22:51)
[2024-09-06] MEDS: Nitrofurantoin Monohyd/M-Cryst 100 MG CAPSULE PO ×2 (09:31→22:49)
[2024-09-06] MEDS: Finasteride 5 MG TABLET PO (09:31)
[2024-09-06] MEDS: Lacosamide 100 MG TABLET 200 MG G-TUBE ×2 (09:31→22:50)
[2024-09-06] MEDS: Baclofen 10 MG TABLET 5 MG G-TUBE ×3 (09:31→22:49)
[2024-09-06] MEDS: 0.9 % Sodium Chloride Flush 3 ML SYRINGE IVFLUSH ×2 (09:32→22:51)
[2024-09-06] MEDS: Atovaquone 750 MG/5 ML ORAL.SUSP G-TUBE ×2 (09:32→22:51)
[2024-09-06] MEDS: Morphine Sulfate Oral Sol 10 MG/5 ML SOLUTION 2.5 MG G-TUBE (09:32)
[2024-09-06] MEDS: dexAMETHasone sod phosphate 4 MG/ML VIAL 6 MG IVPUSH (09:33)
[2024-09-06 10:02] VITALS: BMI 21.2
--- NOTE | 2024-09-06 10:10 | MHC.CLN ---
F/U PT REQUIRES TF FOR 100% NUTRITION SUPPORT PT DX MODERATELY MALNOURISHED ON PREVIOUS ADMISSION, HOWEVER PT WITH 15% SIGNIFICANT WT GAIN X 6 MONTHS S/P PEG TUBE. PT IS NONVERBAL, BED BOUND AND CONTRACTED. NOTED TEMP 102 ON 09/06 WITH ELEVATED SERUM NA PT RECEIVING OSMOLITE 1.5 @ MAX GOAL RATE 55ML/HR WITH 240ML FREE WATER FLUSHES Q 6 HRS PROVIDES 1980KCALS (30KCALS/KG), 82.8 G PROTEIN (1.2G/KG), 1966 ML FREE WATER FROM FORMULA AND FLUSH (29 ML/KG) RECOMMEND INCREASING FREE WATER FLUSHES 240ML Q 4 HRS X 24 HOURS R/T RECENT FEVER (2446ML TOTAL FREE WATER FROM FORMULA AND FLUSHES; 36ML/KG) MONITOR TOLERANCE AND LYTES SEE ALSO FULL CLINICAL NUTRITION ASSESSMENT
[2024-09-06 10:22] LABS: Vancomycin Random 14.4 mcg/mL (15-20)
--- NOTE | 2024-09-06 10:27 | HE.PHANOTE ---
Re: Gill Renal function has improved. Trough returned at 14.4. Continue current dose of 750mg q12h with predicted AUC 452, predicted trough of 14.9. Next trough is 1 @ 1000.
--- NOTE | 2024-09-06 12:09 | P.PNIM_ITS ---
Subjective Subjective Date of Service: 09/06/24 Interval History: seen and evaluated this morning looks comfortable On trach collar 6L with less whitish secretions Na of 147 this morning Review of Systems Review of Systems: Yes Unobtainable due to mental condition Physical Exam 2 Vital Signs: Vital Signs: Last Vital Signs Temp 98.8 F 09/06/24 07:42 Pulse 74 09/06/24 07:42 Resp 16 09/06/24 07:42 BP 92/55 L 09/06/24 07:42 Pulse Ox 99 09/06/24 07:42 O2 Del Method Trach Collar 09/06/24 07:42 O2 Flow Rate 28 09/06/24 04:00 FiO2 28 09/06/24 07:42 BMI result Body Mass Index 21.2 Const: Other: Constitutional : Awake,? not in distress Neck : Normal inspection, Supple Cardiovascular : RRR, no JVP, no lower extremity edema Respiratory : fair bilateral air entry,? basal bilateral crackles, Trach with significant whitish secretions on 6L collar Gastrointestinal:? soft, lax, Normal bowel sounds, G-tube in place, no significant tenderness Skin : Warm, Dry, chronic decubetus ulcers Neurological : Alert, No focal deficit but retracted Objective Data Active Medications Acetaminophen (Acetaminophen Supp 650 Mg Supp.Rect) 650 mg AR Q6H PRN PRN Reason: Pain, Mild 1-3,fever,headache Last Admin: 09/05/24 09:03 Dose: 650 mg Documented By: DARREN Acetaminophen (Acetaminophen 325 Mg Tablet) 650 mg G-TUBE Q4H PRN PRN Reason: Fever Or Pain Last Admin: 09/06/24 00:19 Dose: 650 mg Documented By: DANNY-JOHANA Acetylcysteine (Acetylcysteine 10 % 400 Mg/4 Ml Vial) 600 mg INHALE Q12H PRN PRN Reason: THICK AIRWAY SECRETION Albuterol Sulfate (Albuterol Sulfate (0.083%) 2.5 Mg/3 Ml Vial.Neb) 2.5 mg INHALE Q4H PRN PRN Reason: Shortness Of Breath Or Wheezing Artificial Tears (Artificial Tears 15 Ml Drops) 2 drop EYE-BOTH BID RACHELL Last Admin: 09/06/24 10:01 Dose: Not Given Documented By: ZACHARY Non-Admin Reason: called pharmacy to bring up Atovaquone (Atovaquone 750 Mg/5 Ml Oral.Susp) 750 mg G-TUBE BID [facility] Last Admin: 09/06/24 09:32 Dose: 750 mg Documented By: ZACHARY Baclofen (Baclofen 10 Mg Tablet) 5 mg G-TUBE TID [facility] Last Admin: 09/06/24 09:31 Dose: 5 mg Documented By: ZACHARY Calcium Carbonate (Calcium Carbonate 750 Mg Tab.Chew) 750 mg PO Q4H PRN PRN Reason: Heartburn Ceftriaxone Sodium 1 gm/ (Lidocaine HCl 2.1 ml) 0 gm IM DAILY [facility] Stop: 09/08/24 09:01 Last Admin: 09/06/24 10:00 Dose: Not Given Documented By: ZACHARY Non-Admin Reason: said will Dc med Dexamethasone Sodium Phosphate (Dexamethasone Sod Phosphate 4 Mg/Ml Vial) 6 mg IVPUSH DAILY [facility] Last Admin: 09/06/24 09:33 Dose: 6 mg Documented By: ZACHARY Enoxaparin Sodium (Enoxaparin Sodium 40 Mg/0.4 Ml Syringe) 40 mg SUBCUT Q24H [facility] Last Admin: 09/06/24 00:19 Dose: 40 mg Documented By: EVELIO Finasteride (Finasteride 5 Mg Tablet) 5 mg PO DAILY [facility] Last Admin: 09/06/24 09:31 Dose: 5 mg Documented By: ZACHARY Glycopyrrolate (Glycopyrrolate 1 Mg Tablet) 1 mg G-TUBE BID [facility] Last Admin: 09/06/24 09:31 Dose: 1 mg Documented By: ZACHARY Guaifenesin (Guaifenesin 200 Mg/10 Ml 10 Ml Liquid) 10 ml PO Q4H PRN PRN Reason: Cough Vancomycin HCl 750 mg/ Sodium (Chloride) 265 mls @ 265 mls/hr IV Q12H [facility] Last Infusion: 09/06/24 01:22 Dose: Infused Documented By: EVELIO Ibuprofen (Ibuprofen 600 Mg Tablet) 600 mg G-TUBE Q8H PRN PRN Reason: FEVER UNRESPONSIVE TO APAP Lacosamide (Lacosamide 100 Mg Tablet) 200 mg G-TUBE BID [facility] Last Admin: 09/06/24 09:31 Dose: 200 mg Documented By: ZACHARY Leucovorin Calcium (Leucovorin Calcium 5 Mg Tablet) 25 mg G-TUBE BEDTIME [facility] Last Admin: 09/05/24 22:22 Dose: 25 mg Documented By: EVELIO Lidocaine (Lidocaine 4 % Patch Adh..Patch) 1 patch TRANSDERMA DAILY PRN; Protocol PRN Reason: Pain, Mild (Pain Scale 1-3) Lorazepam (Lorazepam 0.5 Mg Tablet) 0.5 mg G-TUBE Q6H PRN PRN Reason: Anxiety Lorazepam (Lorazepam 2 Mg/Ml Vial) 2 mg IM ONCE PRN PRN Reason: Seizures Magnesium Hydroxide (Milk Of Magnesia 30 Ml Oral.Susp) 30 ml PO DAILY PRN PRN Reason: Constipation Melatonin (Melatonin 3 Mg Tablet) 6 mg PO BEDTIME PRN PRN Reason: Insomnia Melatonin (Melatonin 3 Mg Tablet) 3 mg G-TUBE BEDTIME [facility] Last Admin: 09/05/24 22:22 Dose: 3 mg Documented By: EVELIO Meropenem (Meropenem 1 Gm Vial) 1 gm IVPUSH Q8H [facility] Last Admin: 09/06/24 09:33 Dose: 1 gm Documented By: ZACHARY Midodrine (Midodrine Hcl 2.5 Mg Tablet) 7.5 mg G-TUBE TID [facility] Last Admin: 09/06/24 09:30 Dose: 7.5 mg Documented By: ZACHARY Morphine Sulfate (Morphine Sulfate Oral Cady 10 Mg/5 Ml Solution) 2.5 mg G-TUBE DAILY [facility] Last Admin: 09/06/24 09:32 Dose: 2.5 mg Documented By: ZACHARY Multi-Ingred Cream/Lotion/Oil/Oint (Mineral Oil/Petrolatum,White 106 Gm Tube) 1 appl TOPICAL DAILY PRN PRN Reason: Dry Skin Nitrofurantoin Macrocrystals (Nitrofurantoin Monohyd/M-Cryst 100 Mg Capsule) 100 mg PO BID [facility] Last Admin: 09/06/24 09:31 Dose: 100 mg Documented By: ZACHARY Non-Formulary Medication (Linaclotide [Linzess]) 145 mcg G-TUBE DAILY [facility] Non-Formulary Medication (Pyrimethamine) 50 mg G-TUBE DAILY [facility] Omeprazole (Omeprazole 20 Mg Capsule.) 20 mg PO BID@0630,1630 [facility] Last Admin: 09/06/24 06:09 Dose: 20 mg Documented By: EVELIO Ondansetron HCl (Ondansetron Hcl 4 Mg/2 Ml Vial) 4 mg IVPUSH Q8H PRN PRN Reason: Nausea and Vomiting Oxycodone HCl (Oxycodone Hcl Immed Release 5 Mg Tablet) 5 mg G-TUBE Q6H PRN PRN Reason: Pain (Scale Score 7-10) Pharmacy Consult (Consult Rx Vancomycin Dosing) 1 each MISCELLANE DAILY PRN PRN Reason: Consult order Scopolamine (Scopolamine 1.5 Mg Patch.Td.3) 1.5 mg TRANSDERMA Q3D [facility] Last Admin: 09/05/24 11:57 Dose: 1.5 mg Documented By: DARREN Senna/Docusate Sodium (Sennosides/Docusate Sodium Tablet) 2 tab PO BID@0900,1700 [facility] Last Admin: 09/06/24 09:30 Dose: 2 tab Documented By: ZACHARY Simethicone (Simethicone 80 Mg Tab.Chew) 80 mg G-TUBE Q6H [facility] Last Admin: 09/06/24 09:30 Dose: 80 mg Documented By: ZACHARY Sodium Biphosphate/Sodium Phosphate (Sodium Phosphate,[place]-Dibasic 133 Ml Enema) 118 ml AR DAILY PRN PRN Reason: Constipation Sodium Chloride (0.9 % Sodium Chloride Flush 3 Ml Syringe) 3 ml IVFLUSH QSHIFT [facility] Last Admin: 09/06/24 09:32 Dose: 3 ml Documented By: ZACHARY Sucralfate (Sucralfate 1 Gm Tablet) 1 gm PO BID@1300,1700 [facility] Last Admin: 09/05/24 17:43 Dose: 1 gm Documented By: ZACHARY Tramadol HCl (Tramadol Hcl 50 Mg Tablet) 50 mg G-TUBE Q4H PRN PRN Reason: Pain (Scale Score 1-3) Labs 09/06/24 08:08 09/06/24 08:08 Labs: Laboratory Results - last 24 hr 09/05/24 09/06/24 09/06/24 12:54 08:08 09:40 MCV 94.9 MCH 30.4 MCHC 32.0 RDW 15.2 Plt Count 102 L MPV 10.1 Immature Gran % (Auto) 0.6 H Neut % (Auto) 64.9 Lymph % (Auto) 17.4 L [place] % (Auto) 16.8 H Eos % (Auto) 0.0 Baso % (Auto) 0.3 Lymph # (Auto) 0.6 L [place] # (Auto) 0.6 Eos # (Auto) 0.0 Baso # (Auto) 0.0 Abs Immat Gran (auto) 0.02 Absolute Neuts (auto) 2.1 Absolute Nucleated RBC 0.000 Nucleated RBC % (auto) 0.0 Anion Gap 10 L Estim Creat Clear Calc 76.0 Estimated GFR > 60 Random Glucose 86 Lactic Acid 0.9 Calcium 9.1 Random Vancomycin 14.4 L Microbiology Microbiology Results: Microbiology 09/05/24 00:37 Gram Stain - Final Sputum - Expectorated Sputum Culture - Preliminary Culture in progress. 09/04/24 22:27 Blood Culture - Preliminary Blood - Venous No growth after 24 hours. 09/04/24 22:27 Blood Culture - Preliminary Blood - Venous No growth after 24 hours. Assessment and Plan (1) COVID: Status: Acute (2) Acute encephalopathy: Status: Acute (3) Pneumonia: Status: Acute (4) Nausea and vomiting: Status: Acute Plan This is a 53-year-old male, long-term resident at [facility] long- term care facility, nonverbal and bed-bound at baseline with pertinent history of chronic respiratory failure status post tracheostomy plus PEG tube, stage IV mantle cell lymphoma, [employer] toxoplasmosis due to immunosuppression, BPH with chronic urinary catheter, seizure disorder, history of ESBL bacteremia who was sent to the emergency department for evaluation of altered mentation. # Acute metabolic encephalopathy and acute on chronic hypoxemic respiratory failure due to COVID-19 pneumonia with superimposed bacterial infection supplemental oxygen through trach collar pending cultures continue IV vancomycin and IV meropenem continue DEcadron wean oxygen as tolerated Follow Vancomycin trough # Acute UTI history of ESBL E coli: IV meropenem Follow urine culture # Hx Cerebral toxoplasmosis Continue atovaquone, pyrimethamine plus leucovorin # Status post tracheostomy + PEG tube Tracheostomy care, suctioning. Resume tube feeds Continue scopolamine plus glycopyrrolate patch for secretions # Paraparesis with contractures Bed-bound at baseline. Frequent positioning and offload all bony prominences. On baclofen # BPH: On finasteride # Seizure disorder: On lacosamide # Gastroesophageal reflux disease: On PPI DVT prophylaxis: Lovenox Full code Admit as inpatient and will require overnight hospital stay for IV antibiotics pending final cultures. which is not possible in a lesser acute setting. Quality Stroke Does the patient have a stroke diagnosis?: No VTE Prior VTE?: No VTE Risk Level:: Medical - moderate - high VTE Device Contraindication: Treatment Not Indicated VTE Drug Contraindication: N/A - Med Ordered
[2024-09-06] MEDS: Dextrose 5 % 1,000 ML 125 ML IVCONT (12:53)
[2024-09-06] MEDS: Sucralfate 1 GM TABLET PO ×2 (14:15→16:27)
[2024-09-06 15:42] VITALS: BP 99/64; PULSE 77; RESP 18; TEMP 36.7; O2SAT 96
[2024-09-06 18:26] LABS: Anion Gap 12 (12-20); Blood Urea Nitrogen 25 mg/dL (9-16); Calcium 8.2 mg/dL (8.4-10.2); Carbon Dioxide 26 mmol/L (22-29); Chloride 111 mmol/L (96-108); Creatinine Clr Calc Pharmacy 78.9; Estimated Glomerular Filt Rate > 60; Glucose Random 132 mg/dL (60-115); Potassium 3.8 mmol/L (3.3-5.1); Sodium 145 mmol/L (135-145)
[2024-09-06 19:30] VITALS: BP 95/53; PULSE 64; RESP 16; TEMP 37.5; O2SAT 98
[2024-09-06] MEDS: Melatonin 3 MG TABLET G-TUBE (22:50)
[2024-09-07] VITALS: BP 105/66; PULSE 56; RESP 16; TEMP 36.4; O2SAT 96
[2024-09-07] MEDS: vancomycin HCL 750 MG in 0.9 % Sodium Chloride 250 ML 265 MG IV (00:46)
[2024-09-07 04:00] VITALS: BP 96/62; PULSE 61; RESP 16; TEMP 36.6; O2SAT 97
[2024-09-07] MEDS: Omeprazole 20 MG CAPSULE.DR PO (06:13)
[2024-09-07] MEDS: Simethicone 80 MG TAB.CHEW G-TUBE ×2 (06:13→10:05)
[2024-09-07 07:39] LABS: Anion Gap 10 (12-20); Blood Urea Nitrogen 21 mg/dL (9-16); Calcium 8.3 mg/dL (8.4-10.2); Carbon Dioxide 26 mmol/L (22-29); Chloride 108 mmol/L (96-108); Creatinine Clr Calc Pharmacy 92.1; Estimated Glomerular Filt Rate > 60; Glucose Random 97 mg/dL (60-115); Potassium 3.2 mmol/L (3.3-5.1); Sodium 141 mmol/L (135-145)
[2024-09-07 08:00] VITALS: BP 101/59; PULSE 64; RESP 18; TEMP 36.7; O2SAT 93
[2024-09-07] MEDS: Morphine Sulfate Oral Sol 10 MG/5 ML SOLUTION 2.5 MG G-TUBE (10:04)
[2024-09-07] MEDS: Atovaquone 750 MG/5 ML ORAL.SUSP G-TUBE (10:04)
[2024-09-07] MEDS: Baclofen 10 MG TABLET 5 MG G-TUBE (10:05)
[2024-09-07] MEDS: Nitrofurantoin Monohyd/M-Cryst 100 MG CAPSULE PO (10:05)
[2024-09-07] MEDS: Finasteride 5 MG TABLET PO (10:05)
[2024-09-07] MEDS: Midodrine HCl 2.5 MG TABLET 7.5 MG G-TUBE (10:06)
[2024-09-07] MEDS: Doxycycline Monohydrate 100 MG CAPSULE G-TUBE (10:06)
[2024-09-07] MEDS: Sennosides/Docusate Sodium TABLET 2 TAB PO (10:06)
[2024-09-07] MEDS: Glycopyrrolate 1 MG TABLET G-TUBE (10:07)
[2024-09-07] MEDS: Meropenem 1 GM VIAL IVPUSH (10:07)
[2024-09-07] MEDS: Lacosamide 100 MG TABLET 200 MG G-TUBE (10:07)
[2024-09-07] MEDS: 0.9 % Sodium Chloride Flush 3 ML SYRINGE IVFLUSH (10:07)
[2024-09-07] MEDS: dexAMETHasone sod phosphate 4 MG/ML VIAL 6 MG IVPUSH (10:08)
--- NOTE | 2024-09-07 11:44 | MHC.CLN ---
F/U SEE FULL CLINICAL NUTRITION ASSESSMENT DATED 09/06/24 PT RECEIVING OSMOLITE 1.5 @ MAX GOAL RATE 55ML/HR WITH 240ML FREE WATER FLUSHES Q 6 HRS PROVIDES 1980KCALS (30KCALS/KG), 82.8 G PROTEIN (1.2G/KG), 1966 ML FREE WATER FROM FORMULA AND FLUSH (29 ML/KG) RECOMMEND RETURNING FREE WATER FLUSHES TO 240ML Q 6 HRS FEVER IS RESOLVED MONITOR TOLERANCE AND LYTES
--- NOTE | 2024-09-07 11:47 | PM.DS ---
DS: Providers Provider Date of Service: 09/07/24 Date of admission: 09/04/24 23:41 Date of discharge: 09/07/24 Primary care physician: Florencia Delgado NP Consults: 09/05/24 18:39 Consult to Wound Care Routine Reason for consultation: R hip open wound Has provider been notified: No DS: Diagnosis Discharge Diagnosis (1) COVID: Status: Acute (2) Acute encephalopathy: Status: Acute (3) Pneumonia: Status: Acute (4) Nausea and vomiting: Status: Acute DS: Summary Hospital Course Hospital Course: Admission note HPI This is a 53-year-old [facility], nonverbal and bed-bound at baseline with pertinent history of chronic respiratory failure status post tracheostomy plus PEG tube, stage IV mantle cell lymphoma, 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 Unable to obtain history or review of systems from the patient. Patient was sent to the ER for decreased level of consciousness. Also found to have tachycardic with tachypneic. Patient has been having a productive cough with yellowish sputum as per outside facility. In the emergency department, FiO2 increased from 28% to 35%. Imaging concerning for pneumonia. Patient tested positive for COVID-19 infection. Hospital course The patient was admitted for evaluation of acute metabolic encephalopathy and acute on chronic hypoxemic respiratory failure due to COVID-19 pneumonia with superimposed bacterial infection. He had supplemental oxygen through trach collar. blood culture remained negative. Sputum culture growing GNR which was seen in previous admission as Pseudomonas. He was covered with IV vancomycin and IV meropenem along with IV DEcadron with fair response as he was He was weaned down on FiO2 to 28% with good tolerance and O2 sat mid 90s. secretions were suctioned and decreased significantly. Alert and interactive at baseline. To be discharged on Levofloxacin oral liquid for 10 more days. Suspected Acute UTI w history of ESBL E coli covered with IV meropenem. negative urine culture. For Hx Cerebral toxoplasmosis he was Continued atovaquone, pyrimethamine plus leucovorin For Hx Status post tracheostomy + PEG tube. Tracheostomy care, suctioning. resumed tube feeds with good tolerance. and resumed scopolamine plus glycopyrrolate patch for secretions He had chronic wounds covered and taken care of per previous wound care team recommendations. Discharge plan LEvofloxacin for 1 week Dexamethasone for 1 week Time Attestation Discharge Coordination Time (in mins): 42 Quality: Safe Use of Opioids Does Pt have an Active Cancer Diagnosis on the Problem List?: No Quality: Stroke Does the patient have a stroke diagnosis?: No Physical Exam Vital Signs: Vital Signs: Last Vital Signs Temp 98.0 F 09/07/24 08:00 Pulse 64 09/07/24 08:00 Resp 18 09/07/24 08:00 BP 101/59 L 09/07/24 08:00 Pulse Ox 93 09/07/24 08:00 O2 Del Method Trach Collar 09/07/24 08:00 O2 Flow Rate 9 09/07/24 08:00 FiO2 28 09/06/24 19:30 BMI result Body Mass Index 21.2 Const: Other: Constitutional : Awake,? not in distress Neck : Normal inspection, Supple Cardiovascular : RRR, no JVP, no lower extremity edema Respiratory : fair bilateral air entry,? basal bilateral crackles, Trach with decreased whitish secretions on O2 collar Gastrointestinal:? soft, lax, Normal bowel sounds, G-tube in place, no significant tenderness Skin : Warm, Dry, chronic decubetus ulcers covered with dressing Neurological : Alert, No focal deficit but retracted DS: Data Data Completed and Pending Completed studies during hospitalization [Text1]: Procedures Change Tracheostomy Device in Trachea, External Approach (01/31/23) Drainage of Left Knee Joint, Open Approach (09/22/23) Drainage of Left Knee Joint, Percutaneous Approach (09/22/23) Excision of Lower Esophagus, Via Natural or Artificial Opening Endoscopic, Diagnostic (01/31/23) Insertion of Infusion Device into Right Basilic Vein, Percutaneous Approach (09/22/23) Insertion of Infusion Device into Superior Vena Cava, Percutaneous Approach (01/02/23) Ultrasonography of Superior Vena Cava, Guidance (01/02/23) Labs on day of discharge: Laboratory Results - last 24 hr 09/06/24 09/07/24 18:05 06:57 Hold Purple Top SEE NOTE Sodium 145 141 Potassium 3.8 3.2 L Chloride 111 H 108 Carbon Dioxide 26 26 Anion Gap 12 10 L BUN 25 H 21 H Creatinine 1.05 0.90 Estim Creat Clear Calc 78.9 92.1 Estimated GFR > 60 > 60 Random Glucose 132 H 97 Calcium 8.2 L D 8.3 L Preliminary micro results at discharge 09/05/24 00:37 Sputum Culture - Preliminary Sputum - Expectorated Gram negative jessie 09/04/24 22:27 Blood Culture - Preliminary Blood - Venous No growth after 48 hours. 09/04/24 22:27 Blood Culture - Preliminary Blood - Venous No growth after 48 hours. Imaging Chest x-ray: Radiologist's impression: CXR IMPRESSION: Left basilar infiltrative changes may represent pneumonia. This document has been electronically signed by: Ramiro Stewart MD on 09/04/2024 22:51:42 Discharge Plan Discharge Anticipated Discharge Date/Time: 09/07/24 11:33 Patient Disposition: er [facility] Discharge Diagnosis: Pneumonia Covid infection Referrals: Florencia Delgado NP [Primary Care Provider] - 1 Week Discharge Medications: New dexamethasone 4 mg tablet 4 mg PO DAILY Qty: 7 0RF levofloxacin 250 mg/10 mL solution 750 mg feeding tube DAILY 10 Days Qty: 300 0RF Continued glycopyrrolate 1 mg Tablet 1 mg feeding tube BID leucovorin calcium 25 mg Tablet 25 mg feeding tube BEDTIME melatonin 3 mg Tablet 3 mg feeding tube BEDTIME finasteride 5 mg Tablet 5 mg feeding tube DAILY atovaquone 750 mg/5 mL Suspension 750 mg feeding tube BID Rx Instructions: must administer with food, preferably a high-fat meal lacosamide 200 mg Tablet 200 mg feeding tube BID cholecalciferol (vitamin D3) 1,250 mcg (50,000 unit) Tablet 1,250 mcg feeding tube QMONTH Rx Instructions: MONTHLY ON DAY 15 OF THE MONTH acetaminophen 325 mg Tablet 650 mg feeding tube Q4H PRN (Reason: Fever Or Pain) Rx Instructions: Fever >100.5 albuterol sulfate 2.5 mg /3 mL (0.083 %) Solution For Nebulization 2.5 mg INHALATION Q4H PRN (Reason: Shortness Of Breath Or Wheezing) ondansetron HCl 2 mg/mL Solution 4 mg IM Q4H PRN (Reason: Nausea And Vomiting) Rx Instructions: IF NO RELIEF FROM PO sennosides-docusate sodium [Senna with Docusate Sodium] 8.6-50 mg Tablet 2 tab-cap PO BID@0900,1700 Rx Instructions: G-TUBE tramadol 50 mg Tablet 50 mg feeding tube Q4H PRN (Reason: Pain (Scale Score 1-3)) lorazepam 0.5 mg Tablet 0.5 mg feeding tube Q6H PRN (Reason: Anxiety) magnesium hydroxide [Milk of Magnesia] 400 mg/5 mL Suspension 30 ml feeding tube DAILY PRN (Reason: Constipation) Rx Instructions: If no BM after 3 days bisacodyl 10 mg Suppository 10 mg ND DAILY PRN (Reason: Constipation) Rx Instructions: If no BM after 8 hours following MOM X1 dose Fleet Enema 19-7 gram/118 mL Enema 118 ml ND DAILY PRN (Reason: Constipation) Rx Instructions: If No BM in 1 hour after Bisacodyl supp X1 dose scopolamine base 1 mg over 3 days Patch 3 Day 1 patch TRANSDERMAL Q3D oxycodone 5 mg Tablet 5 mg feeding tube Q6H PRN (Reason: Pain (Scale Score 7-10)) guaifenesin 200 mg/5 mL Liquid 200 mg feeding tube Q4H PRN (Reason: Cough) lorazepam 2 mg/mL Solution 2 mg IM ONCE PRN (Reason: Seizures) Rx Instructions: 2 mg intramuscularly as directed for seizure >2 minutes multivitamin Tablet 1 tab feeding tube DAILY pyrimethamine 25 mg Tablet 50 mg feeding tube DAILY sucralfate 1 gram Tablet 1 g PO BID@1300,1700 Rx Instructions: Give 1 hour after feedings finish and 1 hour before staring feedings carboxymethylcellulose sodium 0.25 % Drops 2 drp OPHTHALMIC (EYE) BID morphine 10 mg/5 mL Solution 2.5 mg feeding tube DAILY lidocaine 4 % Adhesive Patch,Medicated 1 patch TOPICAL DAILY PRN (Reason: Pain) Rx Instructions: BILAT SHOULDER PAIN collagenase clostridium histo. 250 unit/gram Ointment 1 appl TOPICAL BID mineral oil-isopropyl myristat Lotion 1 appl TOPICAL DAILY PRN (Reason: Dry Skin) Rx Instructions: APPLY TO FEET AND LEGS DAILY nitrofurantoin monohyd/m-cryst 100 mg Capsule 100 mg PO BID Patient Comments: 09/10 ends Rx Instructions: must administer with a meal/food baclofen 5 mg Tablet 5 mg feeding tube TID acetylcysteine 200 mg/mL (20 %) Solution 600 mg INHALATION Q12H PRN (Reason: THICK AIRWAY SECRETION) ibuprofen 600 mg Tablet 600 mg feeding tube Q8H PRN (Reason: FEVER UNRESPONSIVE TO APAP) loratadine 10 mg Tablet 10 mg feeding tube DAILY Linzess 145 mcg Capsule 145 mcg G-tube DAILY polyethylene glycol 3350 [Miralax] 17 gram Powder In Packet 17 g feeding tube DAILY Rx Instructions: mix in 8 oz of fluid ( not mix with starch-thickened liquids) omeprazole 20 mg Capsule,Delayed Release(Dr/Ec) 20 mg feeding tube BID simethicone 80 mg Tablet,Chewable 80 mg feeding tube Q6H midodrine 5 mg Tablet 7.5 mg feeding tube TID Rx Instructions: do not give last dose of day after 6PM or within 4 hrs of bedtime Discontinued ceftriaxone 1 gram Recon Soln See Rx Instructions .ROUTE .COMPLEX Rx Instructions: 1 GRAM IM DAILY FROM 09/04 TO 09/08 Discharge Orders: Discharge Order (Routine); Ordered 09/07/24 Ordered By: Patrick Pineda Diet: Tube feed Activity on Discharge: As tolerated Stand Alone Forms: Patient Portal Discharge page Print Language: Burundian Care Plan Goals: Treatment of pneumonia and Covid19 infection Health Concerns: Pneumonia Covid19 Plan of Treatment: LEvofloxacin for 10 more days Dexamethasone for 1 week Assessment: as above
--- NOTE | 2024-09-07 12:10 | MHC.CM.PN ---
Addendum entered by Courtney Guaman RN 09/07/24 12:12: cm contacted pt's hcp gabriel at number on file, gabriel agreeable to dc plan. Original Note: PT MEDICALLY CLEARED FOR DC BACK TO LTC AT [facility], UPDATES/DC SUMMARY SENT, [facility] FOR BLS TRANSPORT
[2024-09-07] MEDS: Potassium Chloride Packet 20 MEQ PACKET 40 MEQ G-TUBE (12:44)
== END 2024-09-07 14:17 | disposition skilled nursing facility (03) | DRG 137 ==
LOC: HO.ED 23:20 → HO.EDOVER 23:44 → HO.IMC 09-05 14:24
PROVIDERS: Admitting Provider Student in an Organized Health Care Education/Training Program; Emergency Provider Emergency Medicine; PCP Nurse Practitioner Adult Health; Visit Provider Student in an Organized Health Care Education/Training Program
DX: U07.1 COVID-19 (principal); J96.21 Acute and chronic respiratory failure with hypoxia; J12.82 Pneumonia due to coronavirus disease 2019; G93.41 Metabolic encephalopathy; B58.89 Toxoplasmosis with other organ involvement; N39.0 Urinary tract infection, site not specified; C83.10 Mantle cell lymphoma, unspecified site; A49.9 Bacterial infection, unspecified; Z93.0 Tracheostomy status; G40.909 Epilepsy, unspecified, not intractable, without status epilepticus; N40.0 Benign prostatic hyperplasia without lower urinary tract symptoms; K21.9 Gastro-esophageal reflux disease without esophagitis; Z93.1 Gastrostomy status; Z74.01 Bed confinement status; Z87.440 Personal history of urinary (tract) infections; Z79.899 Other long term (current) drug therapy
CPT/HCPCS: 0241U; 36415; 71045; 80048; 80053; 80202; 81001; 81003; 82803; 83605; 83735; 83880; 84484; 85025; 85610; 86140; 87040; 87070; 87186; 87205; 93005; 99285; J0131; J0692; J1100; J1650; J2185; J3370

== ENCOUNTER → 2024-09-04 21:54 | Outpatient (BNV) | payer MEDICAID, SELFPAY | PROVIDERS: Emergency Provider Emergency Medicine; PCP Nurse Practitioner Adult Health; Visit Provider Student in an Organized Health Care Education/Training Program | DX: J18.9 Pneumonia, unspecified organism (principal) | CPT/HCPCS: 71045 ==

== ENCOUNTER → 2024-09-04 21:54 | Outpatient (BNV) | payer MEDICAID, SELFPAY | PROVIDERS: Admitting Provider Student in an Organized Health Care Education/Training Program; Emergency Provider Emergency Medicine; PCP Nurse Practitioner Adult Health; Visit Provider Internal Medicine Cardiovascular Disease | DX: R41.82 Altered mental status, unspecified (principal) | CPT/HCPCS: 93010 ==

== ENCOUNTER → 2024-09-04 23:41 | Outpatient (BNV) | payer MEDICAID, SELFPAY | PROVIDERS: Admitting Provider Student in an Organized Health Care Education/Training Program; Emergency Provider Emergency Medicine; PCP Nurse Practitioner Adult Health; Visit Provider Student in an Organized Health Care Education/Training Program | DX: U07.1 COVID-19 (principal); G93.40 Encephalopathy, unspecified; J18.9 Pneumonia, unspecified organism; J96.11 Chronic respiratory failure with hypoxia; Z93.0 Tracheostomy status; N39.0 Urinary tract infection, site not specified | CPT/HCPCS: 99223; 99233; 99239 ==

== ENCOUNTER 2024-09-30 12:02 | Inpatient (IN) | payer MEDICAID, SELFPAY ==
[2024-09-30] VITALS (15 sets, daily range): BP systolic 94–120; BP diastolic 53–74; PULSE 80–127; RESP 12–28; TEMP 36.4–40.5; O2SAT 93–98; BMI 25.5; BMI 28.0
--- NOTE | ~2024-09-30 | XR_ITS ---
CLINICAL HISTORY: fever 1 view chest x-ray Comparison: 09/04/2024 Findings: Improved left basilar infiltrative changes. Mild opacity of the right infrahilar region. Tracheostomy tube is within the thoracic inlet. Normal size heart. No acute fracture. IMPRESSION: Improved infiltrate of the left lung base. Mild atelectasis/infiltrate of the right lung base. This document has been electronically signed by: Taz Bellamy MD on 09/30/2024 13:04:47
--- NOTE | 2024-09-30 12:07 | ECG_ITS ---
Test Reason : TACHYCARDIA Blood Pressure : */* mmHG Vent. Rate : 112 BPM Atrial Rate : 112 BPM P-R Int : 156 ms QRS Dur : 88 ms QT Int : 346 ms P-R-T Axes : 56 10 71 degrees QTcB Int : 472 ms Sinus tachycardia Otherwise normal ECG When compared with ECG of 04-Sep-2024 22:12, No significant change was found Referred By: Lisa Love Electronically Signed By: NOAH SILVA
[2024-09-30] MEDS: Meropenem 1 GM VIAL IVPUSH ×2 (12:36→22:06)
[2024-09-30] MEDS: Acetaminophen 1,000 MG/100 ML PIGGYBACK 400 MG IV (12:44)
[2024-09-30 12:45] LABS: Lymphocytes Percent Auto 3.4 % (20-40); PLT CLUMP 1; SCAN SMEAR FLAG 1
[2024-09-30 12:47] LABS: Hematocrit 35.6 % (42.0-52.0); Hemoglobin 12.1 g/dl (14.0-18.0); Imm Gran Abs Auto 0.03 X10*3/uL (0.00-0.03); Imm Gran Pct Auto 0.4 % (0.0-0.4); Lymphocytes Absolute Auto 0.3 X10*3/uL (1.2-4.9); MANUAL DIFF FLAG SCAN; Mean Corpuscular Hemoglobin 30.4 pg (27.0-33.0); Mean Corpuscular Volume 89.4 fL (80.0-98.0); Mean Platelet Volume 10.4 fL (9.4-12.4); Monocytes Percent Auto 12.7 % (2-11); Neutrophils Absolute Auto 6.3 x10*3/uL (2.0-8.3); Neutrophils Percent Auto 83.5 % (45-73); Red Blood Count 3.98 X10*6/uL (4.60-5.80); Red Cell Distribution Width 14.8 % (11.0-16.0)
--- NOTE | 2024-09-30 12:49 | ED.FEVER ---
HPI - Fever General Chief Complaint: Fever Stated Complaint: FEVER Time Seen by Provider: 09/30/24 12:05 Source: EMS and old records reviewed Mode of arrival: EMS Limitations: other (nonverbal) History of Present Illness ED Provider: JENNA HPI Narrative: 53 yo male with PMH of chronic resp railure sp trach, WOOD SCALER toxoplasmosis, BPH with chronic rincon, seizure disorder, ESBL bacteremia, PEG tube, stage IV mantle cell lymphoma who was just admitted here in August for possible UTI, COVID 19, pneumonia he returns today from [facility] with c/o rigors this AM found to have fever this AM up to 105 - he was given tylenol. Patient cannot offer complaints. COVID test negative at facility this AM. MD elicited complaint: fever Pertinent past history: immunosuppression Onset (ago): hour(s) (few) Measured temperature: 105 F Context: sick contacts and on immunosuppressant(s) Exacerbating factors: nothing Relieving factors: acetaminophen Associated symptoms: denies other symptoms Treatments prior to arrival fever: acetaminophen Related Data Home Medications ?Medication ?Instructions ?Recorded ?Confirmed acetaminophen 325 mg tablet 650 mg feeding tube Q4H PRN Fever 01/02/23 09/05/24 Or Pain albuterol sulfate 2.5 mg/3 mL 2.5 mg inhalation Q4H PRN 01/02/23 09/05/24 (0.083 %) solution for nebulization Shortness Of Breath Or Wheezing atovaquone 750 mg/5 mL oral 750 mg feeding tube BID 01/02/23 09/05/24 suspension bisacodyl 10 mg rectal suppository 10 mg NE DAILY PRN Constipation 01/02/23 09/05/24 cholecalciferol (vitamin D3) 1,250 1,250 mcg feeding tube QMONTH 01/02/23 09/05/24 mcg (50,000 unit) tablet finasteride 5 mg tablet 5 mg feeding tube DAILY 01/02/23 09/05/24 glycopyrrolate 1 mg tablet 1 mg feeding tube BID 01/02/23 09/05/24 guaifenesin 200 mg/5 mL oral liquid 200 mg feeding tube Q4H PRN Cough 01/02/23 09/05/24 lacosamide 200 mg tablet 200 mg feeding tube BID 01/02/23 09/05/24 leucovorin calcium 25 mg tablet 25 mg feeding tube BEDTIME 01/02/23 09/05/24 lorazepam 0.5 mg tablet 0.5 mg feeding tube Q6H PRN Anxiety 01/02/23 09/05/24 lorazepam 2 mg/mL injection 2 mg IM ONCE PRN Seizures 01/02/23 09/05/24 solution magnesium hydroxide 400 mg/5 mL 30 ml feeding tube DAILY PRN 01/02/23 09/05/24 oral suspension (Milk of Magnesia) Constipation melatonin 3 mg tablet 3 mg feeding tube BEDTIME 01/02/23 09/05/24 ondansetron HCl 2 mg/mL 4 mg IM Q4H PRN Nausea And Vomiting 01/02/23 09/05/24 intravenous solution oxycodone 5 mg tablet 5 mg feeding tube Q6H PRN Pain 01/02/23 09/05/24 (Scale Score 7-10) scopolamine base 1 mg over 3 days 1 patch transdermal Q3D 01/02/23 09/05/24 transdermal patch sennosides 8.6 mg-docusate sodium 2 tab-cap PO BID@0900,1700 01/02/23 09/05/24 50 mg tablet (Senna with Docusate Constipation Sodium) sodium phosphates 19 gram-7 118 ml NE DAILY PRN Constipation 01/02/23 09/05/24 gram/118 mL enema (Fleet Enema) tramadol 50 mg tablet 50 mg feeding tube Q4H PRN Pain 01/02/23 09/05/24 (Scale Score 1-3) multivitamin 1 tab feeding tube DAILY 01/31/23 09/05/24 pyrimethamine 25 mg tablet 50 mg feeding tube DAILY 01/31/23 09/05/24 carboxymethylcellulose sodium 0.25 2 drp ophthalmic (eye) BID 06/04/23 09/05/24 % eye drops morphine 10 mg/5 mL oral solution 2.5 mg feeding tube DAILY 06/04/23 09/05/24 sucralfate 1 gram tablet 1 g PO BID@1300,1700 06/04/23 09/05/24 acetylcysteine 200 mg/mL (20 %) 600 mg inhalation Q12H PRN THICK 09/22/23 09/05/24 solution AIRWAY SECRETION ibuprofen 600 mg tablet 600 mg feeding tube Q8H PRN FEVER 09/22/23 09/05/24 UNRESPONSIVE TO APAP linaclotide 145 mcg capsule 145 mcg G-tube DAILY 01/27/24 09/05/24 (Linzess) loratadine 10 mg tablet 10 mg feeding tube DAILY 01/27/24 09/05/24 midodrine 5 mg tablet 7.5 mg feeding tube TID 01/27/24 09/05/24 omeprazole 20 mg capsule,delayed 20 mg feeding tube BID 01/27/24 09/05/24 release polyethylene glycol 3350 17 gram 17 g feeding tube DAILY 01/27/24 09/05/24 oral powder packet (Miralax) simethicone 80 mg chewable tablet 80 mg feeding tube Q6H 01/27/24 09/05/24 baclofen 5 mg tablet 5 mg feeding tube TID 09/05/24 09/05/24 collagenase clostridium histo. 250 1 appl topical BID 09/05/24 09/05/24 unit/gram topical ointment lidocaine 4 % topical patch 1 patch topical DAILY PRN Pain 09/05/24 09/05/24 mineral oil-isopropyl myristat 1 appl topical DAILY PRN Dry Skin 09/05/24 09/05/24 lotion nitrofurantoin 100 mg PO BID 09/05/24 09/05/24 monohydrate/macrocrystals 100 mg capsule Previous Rx's ?Medication ?Instructions ?Recorded dexamethasone 4 mg tablet 4 mg PO DAILY #7 tabs 09/07/24 levofloxacin 250 mg/10 mL oral 750 mg (30 mL) feeding tube DAILY 09/07/24 solution 10 days #300 mL Allergies Allergy/AdvReac Type Severity Reaction Status Date / Time cyclobenzaprine [Flexeril] Allergy Unknown Palpitation Verified 09/30/24 12:11 s Review of Systems Review of Systems: ROS unable to be obtained due to altered mental status [facility] Past Medical History Source: old records reviewed Medical History Chronic hypoxic respiratory failure Tracheostomy dependent Mantle cell lymphoma Aspiration into airway Stage IV decubitus ulcer Osteomyelitis of pelvis Anemia Toxoplasmosis Encephalopathy WOOD SCALER lymphoma Rectal bleeding H/O: RCT (rotator cuff tear) Depression Appendicitis Chronic pain Kidney stone Mantle cell lymphoma Surgical History History of appendectomy Family History Family History Mother COPD (chronic obstructive pulmonary disease) Sister Colon cancer Social History Social History Household Members: Unknown / Unable to assess Housing: Other Housing Other:: [facility] Do you presently have visiting nurse or other home services: No Unable to assess alcohol history related to: Unable to respond Alcohol intake: unknown Patient Tobacco Use Status: Never used Tobacco Second Hand Smoke Exposure: No Substance Use Type: Unknown Advance Directives: Yes Advance Directives on File: Yes Advance Directives Date on File: 06/04/23 Do you have a plan to hurt others: No Plan service: No Current occupational status: unemployed Physical Exam Vital Signs: Vital Signs: Last Vital Signs Temp 99.8 F 09/30/24 14:18 Pulse 116 H 09/30/24 14:18 Resp 16 09/30/24 14:18 BP 102/56 L 09/30/24 14:18 Pulse Ox 93 09/30/24 14:18 O2 Del Method Trach Collar 09/30/24 14:18 O2 Flow Rate 8 09/30/24 14:18 FiO2 28 09/30/24 13:57 Oxygen Flow Rate 3 09/30/24 12:09 BMI result Body Mass Index 28.0 Appearance: Weak, frail, thin appearing, moderate acute distress. Eyes: Pupils equal, round and reactive to light. ENT: Pharynx very dry Neck: trach collar in place no sig secretions noted CVS: tachycardic heart rate and rhythm. Pulses normal. Respiratory: No respiratory distress. Breath sounds very coarse and diminished Abdomen: Soft and non-tender. Skin: Skin warm and dry. pale skin color. poor skin turgor. Extremities: No lower extremity edema. Neuro: contracted, nonverbal cannot participate in exam Medications Administered Generic Name Dose Route Start Last Admin Trade Name Freq PRN Reason Stop Dose Admin Vancomycin HCl 1,000 mg/ 535 mls @ 267.5 mls/hr 09/30/24 15:00 09/30/24 14:48 Vancomycin HCl 750 mg/ Sodium IV 09/30/24 16:59 267.5 mls/hr Chloride ONCE ONE Administration Discontinued Medications Generic Name Dose Route Start Last Admin Trade Name Freq PRN Reason Stop Dose Admin Lactated Ringer's 2,082 mls @ 2,082 mls/hr 09/30/24 12:18 09/30/24 13:27 Lr 30 ml/kg infuse over 1 hr (2082 ml) 09/30/24 13:17 Infused IV Infusion .Q1H ONE Acetaminophen 1,000 mg in 100 mls @ 400 mls/hr 09/30/24 12:41 09/30/24 13:00 Ofirmev IV 09/30/24 12:55 Infused ONCE ONE Infusion Meropenem 1 gm 09/30/24 12:06 09/30/24 12:36 Meropenem 1 Gm Vial IVPUSH 09/30/24 12:07 1 gm ONCE ONE Administration Medical Decision Making Medical Decision Making MDM Narrative: 53 yo male with PMH of chronic resp railure sp trach, WOOD 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 Possible FLU illness, aspiration pneumonia, UTI Differential Diagnosis Differential Diagnoses: The differential diagnosis associated with the presentation includes FLU illness, aspiration pneumonia, UTI Admission/Observation Consideration of admission/observation: Escalation of care including admission/observation considered admit for IV abx and further workup Consult Healthcare Provider Management of the patient was discussed with: Hospitalist (will admit) Lab Data [facility] Lab Attestation statement: I reviewed the patient's lab results. 09/30/24 12:32 09/30/24 12:32 Labs: Lab Results 09/30/24 09/30/24 09/30/24 Range/Units 12:32 12:47 14:13 WBC 7.6 (4.8-10.8) X10*3/uL RBC 3.98 L (4.60-5.80) X10*6/uL Hgb 12.1 L (14.0-18.0) g/dl Hct 35.6 L (42.0-52.0) % MCV 89.4 (80.0-98.0) fL MCH 30.4 (27.0-33.0) pg MCHC 34.0 (31.0-36.0) g/dl RDW 14.8 (11.0-16.0) % Plt Count 98 L (160-400) X10*3/uL MPV 10.4 (9.4-12.4) fL Immature Gran % (Auto) 0.4 (0.0-0.4) % Neut % (Auto) 83.5 H (45-73) % Lymph % (Auto) 3.4 L (20-40) % [place] % (Auto) 12.7 H (2-11) % Eos % (Auto) 0.0 (0-4) % Baso % (Auto) 0.0 (0-2) % Lymph # (Auto) 0.3 L (1.2-4.9) X10*3/uL [place] # (Auto) 1.0 (0.1-1.2) X10*3/uL Eos # (Auto) 0.0 (0.0-0.4) X10*3/uL Baso # (Auto) 0.0 (0.0-0.2) X10*3/uL Abs Immat Gran (auto) 0.03 (0.00-0.03) X10*3/uL Absolute Neuts (auto) 6.3 (2.0-8.3) x10*3/uL Absolute Nucleated RBC 0.000 (0.0-0.012) X10*3/uL Nucleated RBC % (auto) 0.0 (0.0-0.2) /100WBC Smear Tech's Comments VERIFIED Sodium 140 (135-145) mmol/L Potassium 3.8 (3.3-5.1) mmol/L Chloride 104 (96-108) mmol/L Carbon Dioxide 27 (22-29) mmol/L Anion Gap 13 (12-20) BUN 33 H (9-16) mg/dL Creatinine 1.10 (0.5-1.4) mg/dL Estim Creat Clear Calc 68.0 Estimated GFR > 60 Random Glucose 132 H (60-115) mg/dL Lactic Acid 1.7 (0.5-2.0) mmol/L Calcium 8.8 D (8.4-10.2) mg/dL Magnesium 1.9 (1.6-2.6) mg/dL Total Bilirubin 0.5 (0.0-1.0) mg/dL Direct Bilirubin 0.2 (0.0-0.5) mg/dL AST 120 H (5-37) U/L ALT 91 H (0-40) U/L Alkaline Phosphatase 217 H (39-117) U/L Troponin I High Sens 6.9 (<3.5-35.0) ng/L C-Reactive Protein 8.75 H (< or = 0.50) mg/dL B-Natriuretic Peptide 32 (<100) pg/mL Total Protein 7.3 (6.5-8.0) g/dL Albumin 3.4 L (3.5-5.0) g/dL Lipase 21 (8-78) U/L Procalcitonin 3.72 ng/mL Urine Color Yellow Urine Appearance Turbid Urine pH 6.0 (5.0-9.0) Ur Specific Grant 1.015 (1.005-1.025) Urine Protein 100 (2+) H (Neg-Trace) mg/dL Urine Glucose (UA) Negative (Negative) mg/dL Urine Ketones Negative (Negative) mg/dL Urine Blood Moderate (2+) H (Negative) Urine Nitrite Positive H (Negative) Ur Leukocyte Esterase Large (3+) H (Negative) Urine RBC 6-10 H (0-2) /HPF Urine WBC >50 H (0-5) /HPF Ur Squamous Epith Cells 0-2 (0-2) /HPF Urine Bacteria 2+ (None Seen) Hyaline Casts 0-2 (0-2) /LPF Influenza Type A (PCR) NEGATIVE (Negative) Influenza Type B (PCR) NEGATIVE (Negative) RSV RNA Qual (PCR) NEGATIVE (Negative) SARS-CoV-2 RNA (RT-PCR) POSITIVE A (Negative) Independent Interpretation I performed an independent interpretation of an: EKG and Plain X-Ray (R infrahilar opacity) Interpretation: Rate: 112 Rhythm: sinus tachycardia [place]: left Normal P waves. Normal MADDY. Normal QRS complex. ST T wave : inverted t waves V1 and V2, no ALEXANDRE qTC: 472 prior studies: no acute ischemia The study has been interpreted contemporaneously by me. . Radiology Impression Discussion of test interpretation with radiology: I have reviewed the radiologist's reading. Discharge Plan Discharge Clinical Impression: Fever and chills, Acute UTI, Opacity of lung on imaging study Patient Disposition: Admitted As Inpatient Prescriptions: No Action glycopyrrolate 1 mg Tablet 1 mg feeding tube BID leucovorin calcium 25 mg Tablet 25 mg feeding tube BEDTIME melatonin 3 mg Tablet 3 mg feeding tube BEDTIME finasteride 5 mg Tablet 5 mg feeding tube DAILY atovaquone 750 mg/5 mL Suspension 750 mg feeding tube BID Rx Instructions: must administer with food, preferably a high-fat meal lacosamide 200 mg Tablet 200 mg feeding tube BID cholecalciferol (vitamin D3) 1,250 mcg (50,000 unit) Tablet 1,250 mcg feeding tube QMONTH Rx Instructions: MONTHLY ON DAY 15 OF THE MONTH acetaminophen 325 mg Tablet 650 mg feeding tube Q4H PRN (Reason: Fever Or Pain) Rx Instructions: Fever >100.5 albuterol sulfate 2.5 mg /3 mL (0.083 %) Solution For Nebulization 2.5 mg INHALATION Q4H PRN (Reason: Shortness Of Breath Or Wheezing) ondansetron HCl 2 mg/mL Solution 4 mg IM Q4H PRN (Reason: Nausea And Vomiting) Rx Instructions: IF NO RELIEF FROM PO sennosides-docusate sodium [Senna with Docusate Sodium] 8.6-50 mg Tablet 2 tab-cap PO BID@0900,1700 Rx Instructions: G-TUBE tramadol 50 mg Tablet 50 mg feeding tube Q4H PRN (Reason: Pain (Scale Score 1-3)) lorazepam 0.5 mg Tablet 0.5 mg feeding tube Q6H PRN (Reason: Anxiety) magnesium hydroxide [Milk of Magnesia] 400 mg/5 mL Suspension 30 ml feeding tube DAILY PRN (Reason: Constipation) Rx Instructions: If no BM after 3 days bisacodyl 10 mg Suppository 10 mg NE DAILY PRN (Reason: Constipation) Rx Instructions: If no BM after 8 hours following MOM X1 dose Fleet Enema 19-7 gram/118 mL Enema 118 ml NE DAILY PRN (Reason: Constipation) Rx Instructions: If No BM in 1 hour after Bisacodyl supp X1 dose scopolamine base 1 mg over 3 days Patch 3 Day 1 patch TRANSDERMAL Q3D oxycodone 5 mg Tablet 5 mg feeding tube Q6H PRN (Reason: Pain (Scale Score 7-10)) guaifenesin 200 mg/5 mL Liquid 200 mg feeding tube Q4H PRN (Reason: Cough) lorazepam 2 mg/mL Solution 2 mg IM ONCE PRN (Reason: Seizures) Rx Instructions: 2 mg intramuscularly as directed for seizure >2 minutes multivitamin Tablet 1 tab feeding tube DAILY pyrimethamine 25 mg Tablet 50 mg feeding tube DAILY sucralfate 1 gram Tablet 1 g PO BID@1300,1700 Rx Instructions: Give 1 hour after feedings finish and 1 hour before staring feedings carboxymethylcellulose sodium 0.25 % Drops 2 drp OPHTHALMIC (EYE) BID morphine 10 mg/5 mL Solution 2.5 mg feeding tube DAILY lidocaine 4 % Adhesive Patch,Medicated 1 patch TOPICAL DAILY PRN (Reason: Pain) Rx Instructions: BILAT SHOULDER PAIN collagenase clostridium histo. 250 unit/gram Ointment 1 appl TOPICAL BID mineral oil-isopropyl myristat Lotion 1 appl TOPICAL DAILY PRN (Reason: Dry Skin) Rx Instructions: APPLY TO FEET AND LEGS DAILY nitrofurantoin monohyd/m-cryst 100 mg Capsule 100 mg PO BID Patient Comments: 09/10 ends Rx Instructions: must administer with a meal/food baclofen 5 mg Tablet 5 mg feeding tube TID dexamethasone 4 mg tablet 4 mg PO DAILY Qty: 7 0RF levofloxacin 250 mg/10 mL solution 750 mg feeding tube DAILY 10 Days Qty: 300 0RF acetylcysteine 200 mg/mL (20 %) Solution 600 mg INHALATION Q12H PRN (Reason: THICK AIRWAY SECRETION) ibuprofen 600 mg Tablet 600 mg feeding tube Q8H PRN (Reason: FEVER UNRESPONSIVE TO APAP) loratadine 10 mg Tablet 10 mg feeding tube DAILY Linzess 145 mcg Capsule 145 mcg G-tube DAILY polyethylene glycol 3350 [Miralax] 17 gram Powder In Packet 17 g feeding tube DAILY Rx Instructions: mix in 8 oz of fluid ( not mix with starch-thickened liquids) omeprazole 20 mg Capsule,Delayed Release(Dr/Ec) 20 mg feeding tube BID simethicone 80 mg Tablet,Chewable 80 mg feeding tube Q6H midodrine 5 mg Tablet 7.5 mg feeding tube TID Rx Instructions: do not give last dose of day after 6PM or within 4 hrs of bedtime Print Language: Citizen [place]
[2024-09-30 12:52] LABS: White Blood Count 7.6 X10*3/uL (4.8-10.8)
[2024-09-30 12:58] LABS: Lactic Acid 1.7 mmol/L (0.5-2.0)
--- NOTE | 2024-09-30 12:59 | PC.NURSE ---
patient arrived to ED from [facility], patient is trached on 8L @ 28% fio2. ems called for patient fever that started today, prior to ems arrival patient got tylenol, per [facility] patient temp was 105 R. patient inital temp on arrival to ED 103.3 R, additional 18# placed in patient right FA. patient labs and cultures obtained by this RN. patient has gtube in place, rectal probe placed for accurate temperature management. patient is alert to self only, able to communicate with right hand with thumbs up/finger movement. patient pupils equal bilat. resp even and unlabored, RT at bedside for additional inner cannulas and trach supplies. patient medicated per OCT
[2024-09-30 13:05] LABS: B Type Natriuretic Peptide 32 pg/mL (<100)
[2024-09-30 13:07] LABS: Alanine Aminotransferase 91 U/L (0-40); Albumin Level 3.4 g/dL (3.5-5.0); Alkaline Phosphatase 217 U/L (39-117); Anion Gap 13 (12-20); Aspartate Amino Transferase 120 U/L (5-37); Bilirubin Direct 0.2 mg/dL (0.0-0.5); Bilirubin Total 0.5 mg/dL (0.0-1.0); Blood Urea Nitrogen 33 mg/dL (9-16); C Reactive Protein 8.75 mg/dL (< or = 0.50); Calcium 8.8 mg/dL (8.4-10.2); Carbon Dioxide 27 mmol/L (22-29); Chloride 104 mmol/L (96-108); Estimated Glomerular Filt Rate > 60; Glucose Random 132 mg/dL (60-115); Lipase 21 U/L (8-78); Magnesium 1.9 mg/dL (1.6-2.6); Potassium 3.8 mmol/L (3.3-5.1); Sodium 140 mmol/L (135-145); Total Protein 7.3 g/dL (6.5-8.0); Troponin-I High Sensitivity 6.9 ng/L (<3.5-35.0)
[2024-09-30 13:08] LABS: Platelet Count 98 X10*3/uL (160-400)
[2024-09-30 13:25] LABS: Procalcitonin 3.72 ng/mL
[2024-09-30 13:26] LABS: SLIDE REVIEW VERIFIED
[2024-09-30 13:37] LABS: Influenza A PCR NEGATIVE (Negative); Influenza B PCR NEGATIVE (Negative); Resp Syncy Virus RNA Qual PCR NEGATIVE (Negative); SARS COV2 PCR INHOUSE POSITIVE (Negative)
[2024-09-30 14:19] LABS: Appearance Urine Turbid; Color Urine Yellow; Glucose Urine UA Negative (Negative); Leukocyte Esterase Urine Large (3+) (Negative); Nitrite Urine Positive (Negative); Specific Gravity - Urine 1.015 (1.005-1.025); UMIC TRIGGER UACC YES; Urine Blood Moderate (2+) (Negative); Urine Ketones Negative (Negative); Urine Protein 100 (2+) mg/dL (Neg-Trace)
[2024-09-30 14:21] LABS: Bacteria Urine 2+ (None Seen); Hyaline Casts Urine 0-2 /LPF (0-2); Squamous Epithelial Cell Urine 0-2 /HPF (0-2); UACC Culture Trigger YES; WBC Urine >50 /HPF (0-5)
[2024-09-30] MEDS: vancomycin HCL 1,000 MG, vancomycin HCL 750 MG in 0.9 % Sodium Chloride 500 ML 267.5 MG IV (14:48)
--- NOTE | 2024-09-30 15:02 | P.HPHOSP_ITS ---
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 He was recently hospitalized for acute hypoxic resp failure due to covid from 09/04/24 to 09/07/24. He was sent to the emergency department for evaluation of a fever of 103?F. On arrival, his initial BP was 94/40, now improved to 102/56, with HR 116 and temperature down to 99.8?F. He was diagnosed with a UTI and tested positive for COVID-19, though this is likely a residual positive from a prior infection on September 09, 2024. Laboratory findings: * WBC: Normal * Lactic acid: Normal * Mildly elevated LFTs (chronic) * CRP: 8.75 * UA: Grossly positive for UTI He meets sepsis criteria. ED treatment: * IV fluids * IV antibiotics (Vancomycin and Meropenem) Let me know if you need any further refinements! 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 Rectal bleeding H/O: RCT (rotator cuff tear) Depression Appendicitis Chronic pain Kidney stone Mantle cell lymphoma Family History Mother COPD (chronic obstructive pulmonary disease) Sister Colon cancer Surgical History History of appendectomy Social History Household Members: None Housing: [facility] Housing Other:: [facility] Do you presently have visiting nurse or other home services: No Unable to assess alcohol history related to: Unable to respond Alcohol intake: unknown Patient Tobacco Use Status: Never used Tobacco Second Hand Smoke Exposure: No Use of substances other than those prescribed or required for medical reasons: Unable to respond Substance Use Type: Unknown Advance Directives: Yes Advance Directives on File: Yes Advance Directives Date on File: 06/04/23 Do you have a plan to hurt others: No Plan Nutrition Risks: Anorexia and Receiving home tube feeding or CPN service: No Current occupational status: unemployed Meds Allergies Allergy/AdvReac Type Severity Reaction Status Date / Time cyclobenzaprine [Flexeril] Allergy Unknown Palpitation Verified 09/30/24 12:11 s Active Medications: Current Medications Vancomycin HCl 1,000 mg/Vancomycin HCl 750 mg/ Sodium Chloride 535 mls @ 267.5 mls/hr IV ONCE ONE Stop: 09/30/24 16:59 Last Admin: 09/30/24 14:48 Dose: 267.5 mls/hr Home Medications ?Medication ?Instructions ?Recorded ?Confirmed ?Last Taken ?Type acetaminophen 325 mg tablet 650 mg feeding tube Q4H PRN Fever 01/02/23 09/30/24 09/30/24 10:33 History Or Pain albuterol sulfate 2.5 mg/3 mL 2.5 mg inhalation Q4H PRN 01/02/23 09/30/24 Unknown History (0.083 %) solution for nebulization Shortness Of Breath Or Wheezing atovaquone 750 mg/5 mL oral 750 mg feeding tube BID 01/02/23 09/30/24 09/30/24 09:01 History suspension bisacodyl 10 mg rectal suppository 10 mg MI DAILY PRN Constipation if 01/02/23 09/30/24 Unknown History no BM after 8 hours following MoM cholecalciferol (vitamin D3) 1,250 1,250 mcg feeding tube QMONTH 01/02/23 09/30/24 08/29/24 History mcg (50,000 unit) tablet finasteride 5 mg tablet 5 mg feeding tube BEDTIME 01/02/23 09/30/24 09/22/23 History glycopyrrolate 1 mg tablet 1 mg feeding tube BID 01/02/23 09/30/24 09/30/24 09:02 History guaifenesin 200 mg/5 mL oral liquid 200 mg feeding tube Q4H PRN Cough 01/02/23 09/30/24 Unknown History lacosamide 200 mg tablet 200 mg feeding tube BID 01/02/23 09/30/24 09/30/24 09:02 History leucovorin calcium 25 mg tablet 25 mg feeding tube BEDTIME 01/02/23 09/30/24 09/22/23 History lorazepam 0.5 mg tablet 0.5 mg feeding tube Q8H PRN Anxiety 01/02/23 09/30/24 09/30/24 09:05 History lorazepam 2 mg/mL injection 2 mg IM ONCE PRN Seizures 01/02/23 09/30/24 Unknown History solution magnesium hydroxide 400 mg/5 mL 30 ml feeding tube DAILY PRN 01/02/23 09/30/24 Unknown History oral suspension (Milk of Magnesia) Constipation melatonin 3 mg tablet 3 mg feeding tube BEDTIME 01/02/23 09/30/24 09/22/23 History ondansetron HCl 2 mg/mL 4 mg IM Q4H PRN Nausea And Vomiting 01/02/23 09/30/24 Unknown History intravenous solution oxycodone 5 mg tablet 5 mg feeding tube Q6H PRN Pain 01/02/23 09/30/24 09/22/23 10:02 History (Scale Score 7-10) scopolamine base 1 mg over 3 days 1 patch transdermal Q3D 01/02/23 09/30/24 09/22/23 History transdermal patch sennosides 8.6 mg-docusate sodium 2 tab-cap PO BID@0900,1700 01/02/23 09/30/24 09/30/24 09:02 History 50 mg tablet (Senna with Docusate Constipation Sodium) sodium phosphates 19 gram-7 118 ml MI DAILY PRN Constipation 01/02/23 09/30/24 Unknown History gram/118 mL enema (Fleet Enema) tramadol 50 mg tablet 50 mg feeding tube Q4H PRN Pain 01/02/23 09/30/24 Unknown History (Scale Score 1-3) multivitamin 1 tab feeding tube DAILY 01/31/23 09/30/24 09/30/24 09:01 History pyrimethamine 25 mg tablet 50 mg feeding tube BEDTIME 01/31/23 09/30/24 09/04/24 13:10 History 50 mg carboxymethylcellulose sodium 0.25 2 drp ophthalmic (eye) BID 06/04/23 09/30/24 09/30/24 09:50 History % eye drops morphine 10 mg/5 mL oral solution 2.5 mg feeding tube DAILY 06/04/23 09/30/24 09/30/24 09:01 History sucralfate 1 gram tablet 1 g PO BID@1300,1700 06/04/23 09/30/24 09/04/24 17:00 History 1 g acetylcysteine 200 mg/mL (20 %) 600 mg inhalation Q12H PRN THICK 09/22/23 09/30/24 Unknown History solution AIRWAY SECRETION ibuprofen 600 mg tablet 600 mg feeding tube Q8H PRN 09/22/23 09/30/24 09/04/24 16:36 History FEVER/PAIN UNRESPONSIVE TO APAP 600 mg linaclotide 145 mcg capsule 145 mcg G-tube DAILY 01/27/24 09/30/24 09/30/24 09:01 History (Linzess) loratadine 10 mg tablet 10 mg feeding tube DAILY 01/27/24 09/30/24 09/30/24 09:02 History midodrine 5 mg tablet 7.5 mg feeding tube Q8H 01/27/24 09/30/24 09/04/24 13:09 History 7.5 omeprazole 20 mg capsule,delayed 20 mg feeding tube BID@0630,1630 01/27/24 09/30/24 09/30/24 09:01 History release polyethylene glycol 3350 17 gram 17 g feeding tube DAILY@1700 01/27/24 09/30/24 09/04/24 16:36 History oral powder packet (Miralax) simethicone 80 mg chewable tablet 80 mg feeding tube Q6H 01/27/24 09/30/24 09/30/24 05:51 History baclofen 5 mg tablet 5 mg feeding tube TID 09/05/24 09/30/24 Unknown History collagenase clostridium histo. 250 1 appl topical BID 09/05/24 09/30/24 Unknown History unit/gram topical ointment lidocaine 4 % topical patch 2 patch topical DAILY 09/05/24 09/30/24 Unknown History carboxymethylcellulose sodium 0.25 1 drp ophthalmic (eye) BID PRN red 09/30/24 09/30/24 Unknown History % eye drops eyes emollient combination no.119 1 appl topical DAILY 09/30/24 09/30/24 09/30/24 09:00 History (Eucerin Advanced Repair topical cream) mineral oil 118 ml MI DAILY PRN after mag 09/30/24 09/30/24 Unknown History citrate to help pass hard stool ondansetron HCl 4 mg tablet 4 mg PO Q4H PRN no relief after 09/30/24 09/30/24 Unknown History 1st dose of zofran phenylephrine 0.25 %-pramoxine 1 1 appl MI Q6H PRN Hemorrhoids 09/30/24 09/30/24 Unknown History %-glycerin-wh.petrolatum rectal cream Physical Exam 2 Vital Signs and Narrative: Vital Signs: Last Vital Signs Temp 99.8 F 09/30/24 14:18 Pulse 116 H 09/30/24 14:18 Resp 16 09/30/24 14:18 BP 102/56 L 09/30/24 14:18 Pulse Ox 93 09/30/24 14:18 O2 Del Method Trach Collar 09/30/24 14:18 O2 Flow Rate 8 09/30/24 14:18 FiO2 28 09/30/24 13:57 Oxygen Flow Rate 3 09/30/24 12:09 BMI result Body Mass Index 28.0 Constitutional: Alert, in no distress, overweight. Mental Status: Oriented to person, place and time. Eyes: Pupils are equal, round and reactive to light. Ear, Nose and Throat: Oropharynx clear, mucous membranes moist. Ears and nose without eformities. Trachea midline. Respiratory: Clear to auscultation. No wheezing, rales or rhonchi. Cardiovascular: S1 S2 regular. No murmurs, rubs or gallops. Gastrointestinal: Abdomen soft, non-tender, non-distended. Normal bowel sounds.? Neurologic: Cranial nerves II-XII grossly intact. No focal neurological deficits. Moves all extremities spontaneously.? Skin: No rashes or lesions.? Musculoskeletal: No cyanosis or clubbing. Psychiatric: Normal mood and affect? Results Labs 09/30/24 12:32 10/01/24 05:20 Labs: Laboratory Results - last 24 hr 09/30/24 09/30/24 09/30/24 12:32 12:47 14:13 MCV 89.4 MCH 30.4 MCHC 34.0 RDW 14.8 Plt Count 98 L MPV 10.4 Immature Gran % (Auto) 0.4 Neut % (Auto) 83.5 H Lymph % (Auto) 3.4 L Long % (Auto) 12.7 H Eos % (Auto) 0.0 Baso % (Auto) 0.0 Lymph # (Auto) 0.3 L Long # (Auto) 1.0 Eos # (Auto) 0.0 Baso # (Auto) 0.0 Abs Immat Gran (auto) 0.03 Absolute Neuts (auto) 6.3 Absolute Nucleated RBC 0.000 Nucleated RBC % (auto) 0.0 Smear Tech's Comments VERIFIED Anion Gap 13 Estim Creat Clear Calc 68.0 Estimated GFR > 60 Random Glucose 132 H Lactic Acid 1.7 Calcium 8.8 D Magnesium 1.9 Total Bilirubin 0.5 Direct Bilirubin 0.2 AST 120 H ALT 91 H Alkaline Phosphatase 217 H C-Reactive Protein 8.75 H B-Natriuretic Peptide 32 Total Protein 7.3 Albumin 3.4 L Lipase 21 Procalcitonin 3.72 Urine Color Yellow Urine Appearance Turbid Urine pH 6.0 Ur Specific [place] 1.015 Urine Protein 100 (2+) H Urine Glucose (UA) Negative Urine Ketones Negative Urine Blood Moderate (2+) H Urine Nitrite Positive H Ur Leukocyte Esterase Large (3+) H Urine RBC 6-10 H Urine WBC >50 H Ur Squamous Epith Cells 0-2 Urine Bacteria 2+ Hyaline Casts 0-2 Influenza Type A (PCR) NEGATIVE Influenza Type B (PCR) NEGATIVE RSV RNA Qual (PCR) NEGATIVE SARS-CoV-2 RNA (RT-PCR) POSITIVE A Assessment and Plan (1) Acute UTI: Status: Acute Plan 53yo M long-term resident at [facility] with chronic resp failure s/p tracheostomy + PEG, stage 4 mantle cell lymphoma, [employer]CH[employer]ICIAN 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 IVF septic encephalopathy treat infections as above cerebral toxoplasmosis continue atovaquone, pyrimethamine + leucovorin from his long-term facility so substituting [id number] chronic respiratory failure s/p tracheostomy + PEG tracheostomy care, suctioning continue PEG tube feeds scopolamine patch + glycopyrrolate for secretions paraparesis airloss mattress, turning q2h, offload all bony prominences with use of pillows, wedges, and heel boots BPH - chronic Rubio, continue finasteride seizure disorder continue seizure vimpat GERD continue PPI contractures continue baclofen VTE ppx LMWH Quality Stroke Does the patient have a stroke diagnosis?: No VTE Prior VTE?: No VTE Risk Level:: Medical - moderate - high VTE Device Contraindication: Treatment Not Indicated VTE Drug Contraindication: N/A - Med Ordered
[2024-09-30] MEDS: Lactated Ringers 1,000 ML 125 ML IVCONT (18:11)
--- NOTE | 2024-09-30 18:23 | PHA.MEDREC ---
Pharmacy Consult ? Medication Reconciliation Pharmacy has completed the medication reconciliation, utilized list from [facility].
[2024-09-30] MEDS: Acetaminophen 325 MG TABLET 650 MG PO (18:24)
--- NOTE | 2024-09-30 18:36 | PC.NURSE ---
patient noted to be incontinent of urine, patient pulled off [place]. patient washed up, new linens and pads. patient noted to be febrile, medicated per MAR, meds given thru g tube. LR running 125ml/hr.
--- NOTE | 2024-09-30 19:13 | PC.NURSE ---
this rn assumed care of pt, rt at bedside suctioning pt trach. pt noted to be febrile, per place cooling blanket at this time. pt alert and able to follow commands at this time.
[2024-09-30] MEDS: Midodrine HCl 2.5 MG TABLET 7.5 MG G-TUBE (19:28)
--- NOTE | 2024-09-30 19:57 | PC.NURSE ---
pt noted to have scoplamine patch behind left ear with date 09/29, facility called and confirmed patch was placed yesterday. patch remains in place, provider and pharmacy aware.
[2024-09-30] MEDS: Simethicone 80 MG TAB.CHEW G-TUBE (20:02)
--- NOTE | 2024-09-30 20:20 | PC.NURSE ---
unable to obtain cooling blanket at this time, provider aware. ice packs placed on pt. pt noted to have thick secretions in trach, rt at bedside for suction.
--- NOTE | 2024-09-30 20:46 | PC.NURSE ---
pt noted to have incontinent urine, pt assisted in bed change and repositioned in bed. pharmacy contacted for medications not available in pyxis.
[2024-09-30] MEDS: Atovaquone 750 MG/5 ML ORAL.SUSP G-TUBE (22:05)
[2024-09-30] MEDS: Finasteride 5 MG TABLET PO (22:06)
[2024-09-30] MEDS: Melatonin 3 MG TABLET G-TUBE (22:06)
[2024-09-30] MEDS: Lacosamide 100 MG TABLET 200 MG G-TUBE (22:06)
[2024-09-30] MEDS: Collagenase Clostridium Hist. 30 GM TUBE 1 APPL TOPICAL (22:06)
[2024-09-30] MEDS: Glycopyrrolate 1 MG TABLET G-TUBE (22:06)
[2024-09-30] MEDS: Baclofen 10 MG TABLET 5 MG G-TUBE (22:07)
[2024-09-30] MEDS: Heparin Sodium,Porcine 5,000 UNIT/ML VIAL 5000 UNIT SUBCUT (23:02)
[2024-10-01] VITALS (11 sets, daily range): BP systolic 100–140; BP diastolic 66–77; PULSE 67–80; RESP 12–18; TEMP 35.7–36.6; O2SAT 92–98; BMI 28.0
[2024-10-01] MEDS: Lactated Ringers 1,000 ML 125 ML IVCONT ×3 (01:43→17:08)
[2024-10-01] MEDS: Simethicone 80 MG TAB.CHEW G-TUBE ×5 (01:43→23:48)
[2024-10-01] MEDS: Midodrine HCl 2.5 MG TABLET 7.5 MG G-TUBE ×3 (01:45→17:47)
--- NOTE | 2024-10-01 01:48 | PC.NURSE ---
vss at this time, pt resting in stretcher, no acute distress noted, g-tube medications administered at this time.
--- NOTE | 2024-10-01 05:35 | PC.NURSE ---
warm blankets and hot packs placed on pt, provider aware. male purewick placed at this time for incontinence care.
[2024-10-01] MEDS: Meropenem 1 GM VIAL IVPUSH ×3 (05:59→21:01)
[2024-10-01] MEDS: Omeprazole 20 MG CAPSULE.DR PO (05:59)
[2024-10-01 06:03] LABS: Alanine Aminotransferase 57 U/L (0-40); Albumin Level 3.1 g/dL (3.5-5.0); Alkaline Phosphatase 174 U/L (39-117); Anion Gap 13 (12-20); Aspartate Amino Transferase 47 U/L (5-37); Bilirubin Total 0.8 mg/dL (0.0-1.0); Blood Urea Nitrogen 18 mg/dL (9-16); Carbon Dioxide 26 mmol/L (22-29); Chloride 107 mmol/L (96-108); Creatinine Clr Calc Pharmacy 92.3; Estimated Glomerular Filt Rate > 60; Glucose Random 78 mg/dL (60-115); Potassium 3.8 mmol/L (3.3-5.1); Sodium 142 mmol/L (135-145); Total Protein 6.7 g/dL (6.5-8.0)
--- NOTE | 2024-10-01 06:04 | PC.NURSE ---
pt noted to have redness but no open wounds to coccyx. per pt facility, pt has chronic right hip wound.
[2024-10-01] MEDS: Multivitamin with Minerals Liq 15 ML LIQUID G-TUBE (09:22)
[2024-10-01] MEDS: Artificial Tears 15 ML DROPS 1 DROP EYE-BOTH ×2 (09:23→21:50)
[2024-10-01] MEDS: Baclofen 10 MG TABLET 5 MG G-TUBE ×3 (09:23→21:02)
[2024-10-01] MEDS: Sennosides/Docusate Sodium TABLET 2 TAB G-TUBE ×2 (09:23→17:10)
[2024-10-01] MEDS: Cholecalciferol (Vitamin D3) 25 MCG TABLET 125 MCG PO (09:29)
[2024-10-01] MEDS: Morphine Sulfate Oral Sol 10 MG/5 ML SOLUTION 2.5 MG G-TUBE (09:30)
[2024-10-01] MEDS: Loratadine 10 MG TABLET G-TUBE (09:30)
[2024-10-01] MEDS: Glycopyrrolate 1 MG TABLET G-TUBE ×2 (09:30→21:01)
[2024-10-01] MEDS: Heparin Sodium,Porcine 5,000 UNIT/ML VIAL 5000 UNIT SUBCUT ×3 (09:33→23:48)
[2024-10-01] MEDS: Atovaquone 750 MG/5 ML ORAL.SUSP G-TUBE ×2 (09:33→21:01)
[2024-10-01] MEDS: 0.9 % Sodium Chloride Flush 3 ML SYRINGE IVFLUSH ×3 (09:51→21:07)
[2024-10-01] MEDS: Lidocaine 4 % Patch ADH..PATCH 2 PATCH TRANSDERMA (09:53)
--- NOTE | 2024-10-01 10:28 | P.PNIM_ITS ---
Subjective Subjective Date of Service: 10/01/24 Interval History: seen and evaluated this morning looks comfortable , with no issues reported overnight Review of Systems Review of Systems: Yes Unobtainable due to mental condition Physical Exam 2 Vital Signs: Vital Signs: Last Vital Signs Temp 97 F 10/01/24 06:48 Pulse 80 10/01/24 06:48 Resp 16 10/01/24 06:48 BP 100/67 10/01/24 09:27 Pulse Ox 92 10/01/24 06:48 O2 Del Method Room Air 10/01/24 06:48 O2 Flow Rate 8 10/01/24 05:36 FiO2 28 09/30/24 18:14 Oxygen Flow Rate 3 09/30/24 12:09 BMI result Body Mass Index 28.0 General: Non verbal, frail, no distress Resp: CTA bilateral CVS: S1,S2,RRR GI: +BS, NT, no distention Skin: No rash, contracted legs, Neuro: motor grossly intact Psych: flat affect Objective Data Active Medications Acetaminophen (Acetaminophen 325 Mg Tablet) 650 mg PO Q6H PRN PRN Reason: Pain, Mild 1-3,fever,headache Last Admin: 09/30/24 18:24 Dose: 650 mg Documented By: DARREN Acetaminophen (Acetaminophen 325 Mg Tablet) 650 mg G-TUBE Q4H PRN PRN Reason: Fever >100.4 Acetylcysteine (Acetylcysteine 20 % 6,000 Mg/30 Ml Vial) 600 mg INHALE Q12H PRN PRN Reason: THICK AIRWAY SECRETION Albuterol Sulfate (Albuterol Sulfate (0.083%) 2.5 Mg/3 Ml Vial.Neb) 2.5 mg INHALE Q4H PRN PRN Reason: Shortness Of Breath Or Wheezing Artificial Tears (Artificial Tears 15 Ml Drops) 1 drop EYE-BOTH BID PRN PRN Reason: red eyes Last Admin: 10/01/24 09:23 Dose: 1 drop Documented By: TIFFANIE Artificial Tears (Artificial Tears 15 Ml Drops) 2 drop EYE-BOTH BID [facility] Last Admin: 10/01/24 10:16 Dose: Not Given Documented By: TIFFANIE Non-Admin Reason: med already given Atovaquone (Atovaquone 750 Mg/5 Ml Oral.Susp) 750 mg G-TUBE BID [facility] Last Admin: 10/01/24 09:33 Dose: 750 mg Documented By: TIFFANIE Baclofen (Baclofen 10 Mg Tablet) 5 mg G-TUBE TID [facility] Last Admin: 10/01/24 09:23 Dose: 5 mg Documented By: TIFFANIE Bisacodyl (Bisacodyl 10 Mg Supp.Rect) 10 mg AZ DAILY PRN PRN Reason: Constipation if no BM after 8 hours following MoM Calcium Carbonate (Calcium Carbonate 750 Mg Tab.Chew) 750 mg G-TUBE Q4H PRN PRN Reason: Heartburn Collagenase (Collagenase Clostridium Hist. 30 Gm Tube) 1 appl TOPICAL BID [facility]; Protocol Last Admin: 09/30/24 22:06 Dose: 1 appl Documented By: MANDY Finasteride (Finasteride 5 Mg Tablet) 5 mg PO BEDTIME [facility] Last Admin: 09/30/24 22:06 Dose: 5 mg Documented By: MANDY Glycopyrrolate (Glycopyrrolate 1 Mg Tablet) 1 mg G-TUBE BID [facility] Last Admin: 10/01/24 09:30 Dose: 1 mg Documented By: TIFFANIE Guaifenesin (Guaifenesin 200 Mg/10 Ml 10 Ml Liquid) 10 ml PO Q4H PRN PRN Reason: Cough Heparin Sodium (Porcine) (Heparin Sodium,Porcine 5,000 Unit/Ml Vial) 5,000 unit SUBCUT Q8H [facility] Last Admin: 10/01/24 09:33 Dose: 5,000 unit Documented By: TIFFANIE Lactated Ringer's (Lr) 1,000 mls @ 125 mls/hr IVCONT .Q8H [facility] Last Admin: 10/01/24 09:52 Dose: 125 mls/hr Documented By: TIFFANIE Ibuprofen (Ibuprofen 600 Mg Tablet) 600 mg G-TUBE Q8H PRN PRN Reason: FEVER/PAIN UNRESPONSIVE TO APAP Lacosamide (Lacosamide 100 Mg Tablet) 200 mg G-TUBE BID [facility] Last Admin: 09/30/24 22:06 Dose: 200 mg Documented By: MANDY Leucovorin Calcium (Leucovorin Calcium 5 Mg Tablet) 25 mg PO BEDTIME [facility] Last Admin: 09/30/24 22:07 Dose: 25 mg Documented By: MANDY Lidocaine (Lidocaine 4 % Patch Adh..Patch) 2 patch TRANSDERMA DAILY [facility]; Protocol Last Admin: 10/01/24 09:53 Dose: 2 patch Documented By: TIFFANIE Loratadine (Loratadine 10 Mg Tablet) 10 mg G-TUBE DAILY [facility] Last Admin: 10/01/24 09:30 Dose: 10 mg Documented By: TIFFANIE Lorazepam (Lorazepam 0.5 Mg Tablet) 0.5 mg G-TUBE Q8H PRN PRN Reason: Anxiety Lorazepam (Lorazepam 2 Mg/Ml Vial) 2 mg IM ONCE PRN PRN Reason: Seizures Magnesium Hydroxide (Milk Of Magnesia 30 Ml Oral.Susp) 30 ml G-TUBE DAILY PRN PRN Reason: Constipation Melatonin (Melatonin 3 Mg Tablet) 3 mg G-TUBE BEDTIME [facility] Last Admin: 09/30/24 22:06 Dose: 3 mg Documented By: MANDY Melatonin (Melatonin 3 Mg Tablet) 6 mg G-TUBE BEDTIME PRN PRN Reason: Insomnia Meropenem (Meropenem 1 Gm Vial) 1 gm IVPUSH Q8H [facility] Last Admin: 10/01/24 05:59 Dose: 1 gm Documented By: MANDY Midodrine (Midodrine Hcl 2.5 Mg Tablet) 7.5 mg G-TUBE Q8H [facility] Last Admin: 10/01/24 09:27 Dose: 7.5 mg Documented By: TIFFANIE Mineral Oil (Mineral Oil Enema 133 Ml Enema) 118 ml AZ DAILY PRN PRN Reason: after mag citrate to help pass hard stool Morphine Sulfate (Morphine Sulfate Oral Cady 10 Mg/5 Ml Solution) 2.5 mg G-TUBE DAILY [facility] Last Admin: 10/01/24 09:30 Dose: 2.5 mg Documented By: TIFFANIE Multi-Ingred Cream/Lotion/Oil/Oint (Mineral Oil/Petrolatum,White 106 Gm Tube) 1 appl TOPICAL DAILY [facility] Multivitamins/Minerals (Multivitamin With Minerals Liq 15 Ml Liquid) 15 ml G- TUBE DAILY [facility] Last Admin: 10/01/24 09:22 Dose: 15 ml Documented By: TIFFANIE Omeprazole (Omeprazole 20 Mg Capsule.) 20 mg PO BID@0630,1630 [facility] Last Admin: 10/01/24 05:59 Dose: 20 mg Documented By: MANDY Omeprazole (Omeprazole/Na Bicarb Oral Susp 20 Mg/10 Ml Ud Cup) 20 mg G-TUBE BID@0630,1630 [facility] Ondansetron HCl (Ondansetron Hcl 4 Mg/2 Ml Vial) 4 mg IVPUSH Q8H PRN PRN Reason: Nausea and Vomiting Ondansetron HCl (Ondansetron Odt 4 Mg Tab.Rapdis) 4 mg TRANSLINGU Q4H PRN PRN Reason: no relief after 1st dose of zofran Oxycodone HCl (Oxycodone Hcl Immed Release 5 Mg Tablet) 5 mg G-TUBE Q6H PRN PRN Reason: Pain (Scale Score 7-10) Polyethylene Glycol (Polyethylene Glycol 3350 17 Gm Powd.Pack) 17 gm G-TUBE DAILY@1700 [facility] Scopolamine (Scopolamine 1.5 Mg Patch.Td.3) 1.5 mg TRANSDERMA Q3D [facility] Senna/Docusate Sodium (Sennosides/Docusate Sodium Tablet) 2 tab G-TUBE BID@0900,1700 [facility] Last Admin: 10/01/24 09:23 Dose: 2 tab Documented By: TIFFANIE Simethicone (Simethicone 80 Mg Tab.Chew) 80 mg G-TUBE Q6H [facility] Last Admin: 10/01/24 05:59 Dose: 80 mg Documented By: MANDY Sodium Biphosphate/Sodium Phosphate (Sodium Phosphate,Graham-Dibasic 133 Ml Enema) 118 ml AZ DAILY PRN PRN Reason: Constipation Sodium Chloride (0.9 % Sodium Chloride Flush 3 Ml Syringe) 3 ml IVFLUSH QSHIFT [facility] Last Admin: 10/01/24 09:51 Dose: 3 ml Documented By: TIFFANIE Sucralfate (Sucralfate 1 Gm Tablet) 1 gm G-TUBE BID@1300,1700 [facility] Tramadol HCl (Tramadol Hcl 50 Mg Tablet) 50 mg G-TUBE Q4H PRN PRN Reason: Pain (Scale Score 1-3) Vitamin D (Cholecalciferol (Vitamin D3) 25 Mcg Tablet) 125 mcg PO DAILY [facility] Last Admin: 10/01/24 09:29 Dose: 125 mcg Documented By: TIFFANIE Labs 09/30/24 12:32 10/01/24 05:20 Labs: Laboratory Results - last 24 hr 09/30/24 09/30/24 09/30/24 12:32 12:47 14:13 MCV 89.4 MCH 30.4 MCHC 34.0 RDW 14.8 Plt Count 98 L MPV 10.4 Immature Gran % (Auto) 0.4 Neut % (Auto) 83.5 H Lymph % (Auto) 3.4 L Graham % (Auto) 12.7 H Eos % (Auto) 0.0 Baso % (Auto) 0.0 Lymph # (Auto) 0.3 L Graham # (Auto) 1.0 Eos # (Auto) 0.0 Baso # (Auto) 0.0 Abs Immat Gran (auto) 0.03 Absolute Neuts (auto) 6.3 Absolute Nucleated RBC 0.000 Nucleated RBC % (auto) 0.0 Smear Tech's Comments VERIFIED Anion Gap 13 Estim Creat Clear Calc 68.0 Estimated GFR > 60 Random Glucose 132 H Lactic Acid 1.7 Calcium 8.8 D Magnesium 1.9 Total Bilirubin 0.5 Direct Bilirubin 0.2 AST 120 H ALT 91 H Alkaline Phosphatase 217 H C-Reactive Protein 8.75 H B-Natriuretic Peptide 32 Total Protein 7.3 Albumin 3.4 L Lipase 21 Procalcitonin 3.72 Urine Color Yellow Urine Appearance Turbid Urine pH 6.0 Ur Specific [place] 1.015 Urine Protein 100 (2+) H Urine Glucose (UA) Negative Urine Ketones Negative Urine Blood Moderate (2+) H Urine Nitrite Positive H Ur Leukocyte Esterase Large (3+) H Urine RBC 6-10 H Urine WBC >50 H Ur Squamous Epith Cells 0-2 Urine Bacteria 2+ Hyaline Casts 0-2 Influenza Type A (PCR) NEGATIVE Influenza Type B (PCR) NEGATIVE RSV RNA Qual (PCR) NEGATIVE SARS-CoV-2 RNA (RT-PCR) POSITIVE A 10/01/24 05:20 MCV MCH MCHC RDW Plt Count MPV Immature Gran % (Auto) Neut % (Auto) Lymph % (Auto) Graham % (Auto) Eos % (Auto) Baso % (Auto) Lymph # (Auto) Graham # (Auto) Eos # (Auto) Baso # (Auto) Abs Immat Gran (auto) Absolute Neuts (auto) Absolute Nucleated RBC Nucleated RBC % (auto) Smear Tech's Comments Anion Gap 13 Estim Creat Clear Calc 92.3 Estimated GFR > 60 Random Glucose 78 Lactic Acid Calcium 9.0 Magnesium Total Bilirubin 0.8 Direct Bilirubin AST 47 H ALT 57 H Alkaline Phosphatase 174 H C-Reactive Protein B-Natriuretic Peptide Total Protein 6.7 Albumin 3.1 L Lipase Procalcitonin Urine Color Urine Appearance Urine pH Ur Specific [place] Urine Protein Urine Glucose (UA) Urine Ketones Urine Blood Urine Nitrite Ur Leukocyte Esterase Urine RBC Urine WBC Ur Squamous Epith Cells Urine Bacteria Hyaline Casts Influenza Type A (PCR) Influenza Type B (PCR) RSV RNA Qual (PCR) SARS-CoV-2 RNA (RT-PCR) Assessment and Plan (1) Acute UTI: Status: Acute Plan 53yo M long-term resident at [facility] with chronic resp failure s/p tracheostomy + PEG, stage 4 mantle cell lymphoma, BLEACH MIXER 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 IVF septic encephalopathy treat infections as above cerebral toxoplasmosis continue atovaquone + leucovorin chronic respiratory failure s/p tracheostomy + PEG tracheostomy care, suctioning continue PEG tube feeds scopolamine patch + glycopyrrolate for secretions paraparesis airloss mattress, turning q2h, offload all bony prominences with use of pillows, wedges, and heel boots BPH - chronic Rincon, continue finasteride seizure disorder continue seizure vimpat GERD continue PPI contractures continue baclofen FEN: Start tube feed, nutritional consult VTE ppx LMWH Quality Stroke Does the patient have a stroke diagnosis?: No VTE Prior VTE?: No VTE Risk Level:: Medical - moderate - high VTE Device Contraindication: Treatment Not Indicated VTE Drug Contraindication: N/A - Med Ordered
[2024-10-01] MEDS: Lacosamide 100 MG TABLET 200 MG G-TUBE ×2 (10:48→21:30)
--- NOTE | 2024-10-01 12:25 | MHC.CLN ---
NUTRITION CONSULT FOR TUBE FEEDING. PATIENT DISCHARGE 08/2024 WITH FORMULA OSMOLITE 1.5. PATIENT HAD BEEN MALNOURISHED AND IS NOW OVERWEIGHT. BMI=28 AND CALCULATED METABOLIC WEIGHT (CMW) 57.5 KG USED TO ESTIMATE NUTRITIONAL NEEDS. RECOMMEND CHANGE TUBE FEEDING TO JEVITY 1.0 AT 65 ML PER HOUR WITH FREE WATER FLUSHES 120 ML Q 6 HOURS. PROVIDES 1654 KCALS (28.8 KCAL/KG CMW), 69 G PROTEIN (1.2 G/KG CMW), 1783 ML FREE WATER FROM FORMULA AND FLUSHES (31 ML/KG CMW). JEVITY 1.0 HAS FIBER AND PRIOR FORMULA DOES NOT. FOLLOW FOR TUBE FEED TOLERANCE, WEIGHT, AND LABS.
--- NOTE | 2024-10-01 13:25 | MHC.CM.PN ---
SPOKE WITHPTS HCP MARIANELA WHO CONFIRMS THE DC PLAN FOR PT TO RETURN TO [facility] WHEN DCD
[2024-10-01] MEDS: Sucralfate 1 GM TABLET G-TUBE ×2 (13:46→17:10)
[2024-10-01] MEDS: polyethylene glycoL 3350 17 GM POWD.PACK G-TUBE (17:09)
[2024-10-01] MEDS: Omeprazole/Na Bicarb Oral Susp 20 MG/10 ML UD Cup G-TUBE (17:10)
--- NOTE | 2024-10-01 18:30 | PC.NURSE ---
Tube feed titrated to 30ml/hr at 1800.
[2024-10-01] MEDS: Melatonin 3 MG TABLET G-TUBE (21:02)
[2024-10-02] VITALS: BP 106/61; PULSE 72; RESP 18; TEMP 36.4; O2SAT 92
[2024-10-02] MEDS: Lactated Ringers 1,000 ML 125 ML IVCONT (00:42)
--- NOTE | 2024-10-02 01:00 | PC.NURSE ---
0100- OKAY PER HOSPITALIST ON DUTY TO INACTIVATE THE VITAL SIGNS EVERY 2 HOURS ORDER FOR NOW, CONTINUE WITH THE PROTOCOL ORDER AND CHANGE AT A LATER TIME IF PATIENT CONDITION WARRANTS.
[2024-10-02 03:27] VITALS: BP 119/71; PULSE 83; RESP 18; TEMP 36.9; O2SAT 95
[2024-10-02] MEDS: Meropenem 1 GM VIAL IVPUSH ×2 (05:08→13:27)
--- NOTE | 2024-10-02 05:42 | HO.SKINPHOTO ---
Location: Category: Stage: Length: Width: Depth: cm Location: Category: Stage: Length: Width: Depth: cm Location: Category: Stage: Length: Width: Depth: cm Location: Category: Stage: Length: Width: Depth: cm Location: Category: Stage: Length: Width: Depth: cm Location: Category: Stage: Length: Width: Depth: cm
--- NOTE | 2024-10-02 05:43 | HO.SKINPHOTO ---
Addendum entered by Rosa Andres RN 10/02/24 06:30: bilateral hip wounds are chronic, patient admitted from [facility] with wounds present as per notes/hx, left hip wound with no drainage, foam dressing in place, wound consult previously entered. Photo #2and #3 are right hip views, no active drainage, small stain to foam dressing, no odor, and no bleeding, again wound consult previously ordered. Patient repositioned frequently, pillows to offset weight, air loss mattress in use, and HOB raised as GT feeding continuously, all medications via GT, water flushes programmed to pump with Jevity titrated as per md orders; 2200 increased to 40ml/Hr, 0200 increased to 50ml/Hr, then at 0600 to 60ml?Hr. Patient tolerating feedings well, with no residual. Trach care done, inline trach suctioning performed with moderate amounts of thick cream/white secretions, pt tolerates well, vss, precautions maintained Original Note: Location: Category: Stage: Length: Width: Depth: cm Location: Category: Stage: Length: Width: Depth: cm Location:left hip wound Category:right hip wound, two views Stage: Length: Width: Depth: cm Location: Category: Stage: Length: Width: Depth: cm Location: Category: Stage: Length: Width: Depth: cm Location: Category: Stage: Length: Width: Depth: cm
[2024-10-02] MEDS: Simethicone 80 MG TAB.CHEW G-TUBE ×2 (05:59→13:27)
[2024-10-02] MEDS: Omeprazole/Na Bicarb Oral Susp 20 MG/10 ML UD Cup G-TUBE (05:59)
[2024-10-02 07:47] VITALS: BP 104/67; PULSE 76; RESP 18; TEMP 36.8; O2SAT 96
[2024-10-02 08:55] LABS: Anion Gap 10 (12-20); Blood Urea Nitrogen 14 mg/dL (9-16); Calcium 8.7 mg/dL (8.4-10.2); Carbon Dioxide 27 mmol/L (22-29); Chloride 108 mmol/L (96-108); Creatinine Clr Calc Pharmacy 93.5; Estimated Glomerular Filt Rate > 60; Glucose Random 115 mg/dL (60-115); Potassium 3.4 mmol/L (3.3-5.1); Sodium 142 mmol/L (135-145)
--- NOTE | 2024-10-02 09:25 | P.DS_ITS ---
DS: Providers Provider Date of Service: 10/02/24 Date of admission: 09/30/24 15:45 Date of discharge: 10/02/24 Primary care physician: Florencia Delgado NP Consults: 10/01/24 06:49 Consult to Wound Care Routine Reason for consultation: right hip DS: Diagnosis Discharge Diagnosis (1) Acute UTI: Status: Acute DS: Summary Hospital Course Hospital Course: admission hpi Chief Complaint: Fever This is a 53-year-old male, a long-term resident at 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 He was recently hospitalized for acute hypoxic resp failure due to covid from 09/04/24 to 09/07/24. He was sent to the emergency department for evaluation of a fever of 103?F. On arrival, his initial BP was 94/40, now improved to 102/56, with HR 116 and temperature down to 99.8?F. He was diagnosed with a UTI and tested positive for COVID-19, though this is likely a residual positive from a prior infection on September 09, 2024. Laboratory findings: * WBC: Normal * Lactic acid: Normal * Mildly elevated LFTs (chronic) * CRP: 8.75 * UA: Grossly positive for UTI He met sepsis criteria. Hospital course: Patient presented with fever, altered state and work up revealed febrile UTI. He was started on Meropenem give history of resistant organism, blood cultures have been negative. Urine cultures is growing E. coli multidrug resistant (see below) but sensitive to Meropenem and bactrim. He has not have fever over 24, he will be switched to oral Bactrim for 10 days. Urine Culture Final 10/02/24 Organism 1 Escherichia coli Quant 10,000 to 50,000 cfu/mL ESBL Note: NOTE: Extended-Spectrum Beta-Lactamase enzyme present E coli M.I.C. RX --------- --- Ampicillin >=32 R Cefazolin (Urine) >=32 R Cefepime 16 R Ceftriaxone >=64 R Ciprofloxacin >=4 R Ertapenem <=0.12 S Gentamicin <=1 S Nitrofurantoin 32 S Trimethoprim/Sulfamethoxazole <=20 S His respiratory status has been stable on Trach For chronic PEG and tube feed: Patient was seen by Nutrition with the following recommendation: PATIENT DISCHARGE 08/2024 WITH FORMULA OSMOLITE 1.5. PATIENT HAD BEEN MALNOURISHED AND IS NOW OVERWEIGHT. BMI=28 AND CALCULATED METABOLIC WEIGHT (CMW) 57.5 KG USED TO ESTIMATE NUTRITIONAL NEEDS. RECOMMEND CHANGE TUBE FEEDING TO JEVITY 1.0 AT 65 ML PER HOUR WITH FREE WATER FLUSHES 120 ML Q 6 HOURS. PROVIDES 1654 KCALS (28.8 KCAL/KG CMW), 69 G PROTEIN (1.2 G/KG CMW), 1783 ML FREE WATER FROM FORMULA AND FLUSHES (31 ML/KG CMW). JEVITY 1.0 HAS FIBER AND PRIOR FORMULA DOES NOT. FOLLOW FOR TUBE FEED TOLERANCE, WEIGHT, AND LABS. Disposition discussed with Dr Ortiz [phone], the facility provider Time Attestation Discharge Coordination Time (in mins): 45 Quality: Safe Use of Opioids Does Pt have an Active Cancer Diagnosis on the Problem List?: No Quality: Stroke Does the patient have a stroke diagnosis?: No Physical Exam Vital Signs: Vital Signs: Last Vital Signs Temp 98.2 F 10/02/24 07:47 Pulse 76 10/02/24 07:47 Resp 18 10/02/24 07:47 BP 104/67 10/02/24 07:47 Pulse Ox 96 10/02/24 07:47 O2 Del Method Trach Collar 10/02/24 07:47 O2 Flow Rate 5.0 10/02/24 07:47 FiO2 28 10/02/24 07:47 Oxygen Flow Rate 3 09/30/24 12:09 BMI result Body Mass Index 28.0 General: Non verbal, frail, no distress Resp: CTA bilateral CVS: S1,S2,RRR GI: +BS, NT, no distention Skin: No rash, contracted legs, Neuro: motor grossly intact Psych: flat affect DS: Data Data Completed and Pending Completed studies during hospitalization [Text1]: Procedures Change Tracheostomy Device in Trachea, External Approach (01/31/23) Drainage of Left Knee Joint, Open Approach (09/22/23) Drainage of Left Knee Joint, Percutaneous Approach (09/22/23) Excision of Lower Esophagus, Via Natural or Artificial Opening Endoscopic, Diagnostic (01/31/23) Insertion of Infusion Device into Right Basilic Vein, Percutaneous Approach (09/22/23) Insertion of Infusion Device into Superior Vena Cava, Percutaneous Approach (01/02/23) Ultrasonography of Superior Vena Cava, Guidance (01/02/23) Labs on day of discharge: Laboratory Results - last 24 hr 10/02/24 07:50 Hold Purple Top SEE NOTE Sodium 142 Potassium 3.4 Chloride 108 Carbon Dioxide 27 Anion Gap 10 L BUN 14 Creatinine 0.80 Estim Creat Clear Calc 93.5 Estimated GFR > 60 Random Glucose 115 Calcium 8.7 Preliminary micro results at discharge 09/30/24 12:35 Blood Culture - Preliminary Blood - Venous No growth after 24 hours. 09/30/24 12:32 Blood Culture - Preliminary Blood - Venous No growth after 24 hours. Discharge Plan Discharge Anticipated Discharge Date/Time: 10/02/24 09:26 Patient Disposition: Xfer [facility] Discharge Diagnosis: Acute UTI Referrals: [facility] [Outside] - 1 Week Florencia Delgado NP [Primary Care Provider] - 1 Week Discharge Medications: New sulfamethoxazole-trimethoprim 200-40 mg/5 mL Suspension 20 ml G-tube BID Qty: 400 0RF Continued glycopyrrolate 1 mg Tablet 1 mg feeding tube BID leucovorin calcium 25 mg Tablet 25 mg feeding tube BEDTIME melatonin 3 mg Tablet 3 mg feeding tube BEDTIME finasteride 5 mg Tablet 5 mg feeding tube BEDTIME atovaquone 750 mg/5 mL Suspension 750 mg feeding tube BID Rx Instructions: must administer with food, preferably a high-fat meal lacosamide 200 mg Tablet 200 mg feeding tube BID cholecalciferol (vitamin D3) 1,250 mcg (50,000 unit) Tablet 1,250 mcg feeding tube QMONTH Rx Instructions: MONTHLY ON DAY 15 OF THE MONTH acetaminophen 325 mg Tablet 650 mg feeding tube Q4H PRN (Reason: Fever Or Pain) Rx Instructions: Fever >100.5 albuterol sulfate 2.5 mg /3 mL (0.083 %) Solution For Nebulization 2.5 mg INHALATION Q4H PRN (Reason: Shortness Of Breath Or Wheezing) ondansetron HCl 2 mg/mL Solution 4 mg IM Q4H PRN (Reason: Nausea And Vomiting) Rx Instructions: IF NO RELIEF FROM PO sennosides-docusate sodium [Senna with Docusate Sodium] 8.6-50 mg Tablet 2 tab-cap PO BID@0900,1700 Rx Instructions: G-TUBE tramadol 50 mg Tablet 50 mg feeding tube Q4H PRN (Reason: Pain (Scale Score 1-3)) lorazepam 0.5 mg Tablet 0.5 mg feeding tube Q8H PRN (Reason: Anxiety) magnesium hydroxide [Milk of Magnesia] 400 mg/5 mL Suspension 30 ml feeding tube DAILY PRN (Reason: Constipation) Rx Instructions: If no BM after 3 days - give on the tenth shift x1 dose bisacodyl 10 mg Suppository 10 mg CA DAILY PRN (Reason: Constipation if no BM after 8 hours following MoM) Rx Instructions: If no BM after 8 hours following MOM X1 dose Fleet Enema 19-7 gram/118 mL Enema 118 ml CA DAILY PRN (Reason: Constipation) Rx Instructions: If No BM in 1 hour after Bisacodyl supp X1 dose scopolamine base 1 mg over 3 days Patch 3 Day 1 patch TRANSDERMAL Q3D oxycodone 5 mg Tablet 5 mg feeding tube Q6H PRN (Reason: Pain (Scale Score 7-10)) guaifenesin 200 mg/5 mL Liquid 200 mg feeding tube Q4H PRN (Reason: Cough) lorazepam 2 mg/mL Solution 2 mg IM ONCE PRN (Reason: Seizures) Rx Instructions: 2 mg intramuscularly as directed for seizure >2 minutes multivitamin Tablet 1 tab feeding tube DAILY pyrimethamine 25 mg Tablet 50 mg feeding tube BEDTIME sucralfate 1 gram Tablet 1 g PO BID@1300,1700 Rx Instructions: Give 1 hour after feedings finish and 1 hour before staring feedings carboxymethylcellulose sodium 0.25 % Drops 2 drp OPHTHALMIC (EYE) BID morphine 10 mg/5 mL Solution 2.5 mg feeding tube DAILY lidocaine 4 % Adhesive Patch,Medicated 2 patch TOPICAL DAILY Rx Instructions: BILAT SHOULDER PAIN collagenase clostridium histo. 250 unit/gram Ointment 1 appl TOPICAL BID baclofen 5 mg Tablet 5 mg feeding tube TID acetylcysteine 200 mg/mL (20 %) Solution 600 mg INHALATION Q12H PRN (Reason: THICK AIRWAY SECRETION) ibuprofen 600 mg Tablet 600 mg feeding tube Q8H PRN (Reason: FEVER/PAIN UNRESPONSIVE TO APAP) loratadine 10 mg Tablet 10 mg feeding tube DAILY Linzess 145 mcg Capsule 145 mcg G-tube DAILY polyethylene glycol 3350 [Miralax] 17 gram Powder In Packet 17 g feeding tube DAILY@1700 Rx Instructions: mix in 8 oz of fluid ( not mix with starch-thickened liquids) omeprazole 20 mg Capsule,Delayed Release(Dr/Ec) 20 mg feeding tube BID@0630,1630 simethicone 80 mg Tablet,Chewable 80 mg feeding tube Q6H midodrine 5 mg Tablet 7.5 mg feeding tube Q8H Rx Instructions: do not give last dose of day after 6PM or within 4 hrs of bedtime HOLF IF SBP >120 mmHg ondansetron HCl 4 mg Tablet 4 mg PO Q4H PRN (Reason: no relief after 1st dose of zofran) carboxymethylcellulose sodium 0.25 % Drops 1 drp OPHTHALMIC (EYE) BID PRN (Reason: red eyes) mineral oil Enema 118 ml CA DAILY PRN (Reason: after mag citrate to help pass hard stool) Rx Instructions: discard any unused portion Eucerin Advanced Repair Cream 1 appl TOPICAL DAILY [id number].pet 0.25-1 % Cream 1 appl CA Q6H PRN (Reason: Hemorrhoids) Discharge Orders: Discharge Order (Routine); Ordered 10/02/24 Ordered By: [facility] Diet: Resume usual tube feed Activity on Discharge: As tolerated Stand Alone Forms: Patient Portal Discharge page Print Language: Irish Care Plan Goals: Recovery from UTI Health Concerns: recurrent UTI chronic respiratory failure s/p trach chronic PEG, high risks for aspiration Plan of Treatment: take bactrim for UTI continue all other medications Tube Feed PATIENT DISCHARGE 08/2024 WITH FORMULA OSMOLITE 1.5. PATIENT HAD BEEN MALNOURISHED AND IS NOW OVERWEIGHT. BMI=28 AND CALCULATED METABOLIC WEIGHT (CMW) 57.5 KG USED TO ESTIMATE NUTRITIONAL NEEDS. RECOMMEND CHANGE TUBE FEEDING TO JEVITY 1.0 AT 65 ML PER HOUR WITH FREE WATER FLUSHES 120 ML Q 6 HOURS. PROVIDES 1654 KCALS (28.8 KCAL/KG CMW), 69 G PROTEIN (1.2 G/KG CMW), 1783 ML FREE WATER FROM FORMULA AND FLUSHES (31 ML/KG CMW). JEVITY 1.0 HAS FIBER AND PRIOR FORMULA DOES NOT. FOLLOW FOR TUBE FEED TOLERANCE, WEIGHT, AND LABS. Assessment: see above
[2024-10-02 09:37] LABS: Basophils Percent Auto 0.3 % (0-2); Eosinophils Absolute Auto 0.1 X10*3/uL (0.0-0.4); Eosinophils Percent Auto 3.8 % (0-4); Hematocrit 34.5 % (42.0-52.0); Hemoglobin 11.2 g/dl (14.0-18.0); Imm Gran Abs Auto 0.02 X10*3/uL (0.00-0.03); Imm Gran Pct Auto 0.6 % (0.0-0.4); Lymphocytes Absolute Auto 0.5 X10*3/uL (1.2-4.9); Lymphocytes Percent Auto 17.3 % (20-40); MANUAL DIFF FLAG SCAN; Mean Corpuscular HGB Conc 32.5 g/dl (31.0-36.0); Mean Corpuscular Hemoglobin 29.5 pg (27.0-33.0); Mean Corpuscular Volume 90.8 fL (80.0-98.0); Mean Platelet Volume 10.2 fL (9.4-12.4); Monocytes Absolute Auto 0.7 X10*3/uL (0.1-1.2); Monocytes Percent Auto 21.5 % (2-11); Neutrophils Absolute Auto 1.8 x10*3/uL (2.0-8.3); Neutrophils Percent Auto 56.5 % (45-73); Platelet Count 106 X10*3/uL (160-400); SCAN SMEAR FLAG 1; White Blood Count 3.1 X10*3/uL (4.8-10.8)
[2024-10-02] MEDS: Multivitamin with Minerals Liq 15 ML LIQUID G-TUBE (09:54)
[2024-10-02] MEDS: Atovaquone 750 MG/5 ML ORAL.SUSP G-TUBE (09:54)
[2024-10-02] MEDS: Morphine Sulfate Oral Sol 10 MG/5 ML SOLUTION 2.5 MG G-TUBE (09:54)
[2024-10-02] MEDS: Lidocaine 4 % Patch ADH..PATCH 2 PATCH TRANSDERMA (09:55)
[2024-10-02] MEDS: Heparin Sodium,Porcine 5,000 UNIT/ML VIAL 5000 UNIT SUBCUT (09:56)
[2024-10-02] MEDS: Glycopyrrolate 1 MG TABLET G-TUBE (09:57)
[2024-10-02] MEDS: Midodrine HCl 2.5 MG TABLET 7.5 MG G-TUBE ×2 (09:57→13:27)
[2024-10-02] MEDS: Loratadine 10 MG TABLET G-TUBE (09:57)
[2024-10-02] MEDS: Cholecalciferol (Vitamin D3) 25 MCG TABLET 125 MCG G-TUBE (09:57)
[2024-10-02] MEDS: Baclofen 10 MG TABLET 5 MG G-TUBE ×2 (09:58→13:27)
[2024-10-02] MEDS: Sennosides/Docusate Sodium TABLET 2 TAB G-TUBE (09:58)
[2024-10-02 10:17] LABS: SLIDE REVIEW VERIFIED
[2024-10-02] MEDS: Lacosamide 100 MG TABLET 200 MG G-TUBE (10:27)
[2024-10-02] MEDS: Scopolamine 1.5 MG PATCH.TD.3 TRANSDERMA (10:28)
[2024-10-02] MEDS: Sucralfate 1 GM TABLET G-TUBE (13:27)
[2024-10-02] MEDS: Sulfameth/Trimet 800/160/20 ML 20 ML ORAL.SUSP G-TUBE (13:27)
--- NOTE | 2024-10-02 13:54 | MHC.CM.PN ---
Patient is discharged today back to [facility]. His family has been notified of the discharge. Spoke with Imani, alexander. She received the dc paperwork that was faxed to the facility. Nurse 2 Nurse and DOC 2 DOC requested. Contact info provided to the clinicians. Transport is booked for 3pm pharmacy picking technician.
[2024-10-02 15:42] VITALS: BP 110/66; PULSE 94; RESP 18; TEMP 37.2; O2SAT 97
== END 2024-10-02 16:15 | disposition skilled nursing facility (03) | DRG 466 ==
LOC: HO.ED 14:56 → HO.EDOVER 16:53 → HO.S3 10-01 05:30
PROVIDERS: Admitting Provider Internal Medicine; Emergency Provider Emergency Medicine; PCP Nurse Practitioner Adult Health; Visit Provider Internal Medicine
DX: T83.511A Infection and inflammatory reaction due to indwelling urethral catheter, initial encounter (principal); A41.9 Sepsis, unspecified organism; G93.41 Metabolic encephalopathy; U07.1 COVID-19; B58.9 Toxoplasmosis, unspecified; C83.10 Mantle cell lymphoma, unspecified site; N40.0 Benign prostatic hyperplasia without lower urinary tract symptoms; G82.20 Paraplegia, unspecified; J96.10 Chronic respiratory failure, unspecified whether with hypoxia or hypercapnia; Z16.24 Resistance to multiple antibiotics; Z16.12 Extended spectrum beta lactamase (ESBL) resistance; Z93.0 Tracheostomy status; Z74.01 Bed confinement status; N39.0 Urinary tract infection, site not specified; B96.20 Unspecified Escherichia coli [E. coli] as the cause of diseases classified elsewhere; G40.909 Epilepsy, unspecified, not intractable, without status epilepticus; Z93.1 Gastrostomy status; Z87.440 Personal history of urinary (tract) infections; Z79.899 Other long term (current) drug therapy
CPT/HCPCS: 0241U; 36415; 71045; 80048; 80053; 80076; 81001; 83605; 83690; 83735; 83880; 84145; 84484; 85025; 86140; 87040; 87086; 87088; 87186; 93005; 99285; J0131; J1644; J2185; J3370; J7120

== ENCOUNTER → 2024-09-30 12:07 | Outpatient (BNV) | payer MEDICAID, SELFPAY | PROVIDERS: Admitting Provider Internal Medicine; Emergency Provider Emergency Medicine; PCP Nurse Practitioner Adult Health; Visit Provider Internal Medicine | DX: R00.0 Tachycardia, unspecified (principal) | CPT/HCPCS: 93010 ==

== ENCOUNTER → 2024-09-30 12:07 | Outpatient (BNV) | payer MEDICAID, SELFPAY | PROVIDERS: Emergency Provider Emergency Medicine; PCP Nurse Practitioner Adult Health; Visit Provider Nuclear Medicine | DX: R91.8 Other nonspecific abnormal finding of lung field (principal); J98.11 Atelectasis | CPT/HCPCS: 71045 ==

== ENCOUNTER → 2024-09-30 15:45 | Outpatient (BNV) | payer MEDICAID, SELFPAY | PROVIDERS: Admitting Provider Internal Medicine; Emergency Provider Emergency Medicine; PCP Nurse Practitioner Adult Health; Visit Provider Internal Medicine | DX: N39.0 Urinary tract infection, site not specified (principal) | CPT/HCPCS: 99223; 99232; 99239 ==

== ENCOUNTER 2024-10-29 11:27 | Outpatient (REF) | payer MEDICAID, SELFPAY | END 2024-10-29 11:28 | disposition home or self-care (01) | LOC: HO.WMHL 11:27 | PROVIDERS: Visit Provider Nurse Practitioner | DX: R50.9 Fever, unspecified (principal) | CPT/HCPCS: 36415; 80048; 81001; 85025; 87086; 87088; 87186 ==

== ENCOUNTER 2025-02-08 08:34 | Emergency (ER) | payer MEDICAID, SELFPAY ==
[2025-02-08] VITALS (10 sets, daily range): BP systolic 91–113; BP diastolic 50–77; PULSE 75–99; RESP 12–22; TEMP 36.2–37.7; O2SAT 95–100; BMI 20.1
--- NOTE | ~2025-02-08 | XR_ITS ---
EXAMINATION: XR CHEST 1 VIEW HISTORY: fever COMPARISON: Comparison is made with the prior examination dated 09/30/2024. FINDINGS: A single AP portable view of the chest performed at 9:33 AM is submitted. A tracheostomy tube is unchanged in position. The lungs are expanded and clear. There is no pleural effusion, pneumothorax, or pulmonary vascular congestion. The heart is normal in size. The bones are intact. XR/XR chest 1V IMPRESSION: No acute cardiopulmonary abnormality. Electronically signed by: David Wells MD 02/08/2025 09:45 AM EDT
--- NOTE | 2025-02-08 09:00 | PC.NURSE ---
Pt arrived to ED 5 via EMS from [facility], reported to be febrile and tachycardic with difficulty managing secretions via trach. Rectal temp 99.3, pt placed on monitor NSR in 70's. Nonverbal/bedbound at baseline. No apparent s/s of distress.G-tube present.#20 to left wrist, labs collected and sent. Respiratory at bedside
--- NOTE | 2025-02-08 09:10 | ED.GENADULT ---
HPI - General Adult General Chief complaint: Fever Stated complaint: SEPSIS ALERT,TRACH,FEVER 103 PER EMS Time Seen by Provider: 02/08/25 09:10 History of Present Illness ED Provider: Osbaldo GRAY narrative: The patient is a 54-year-old male who was chronically very ill. He lives at [facility] ([facility] , the [facility]. He has a tracheostomy and a G-tube. He is chronically NPO. 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 He is on long-term suppressive therapy. He is considered immune compromised. He is nonverbal at baseline although he understands Ukrainian and can communicate slightly by indicating yes or no with his fingers. According to a staff provider at the [facility] the patient was treated at the facility with ceftriaxone for a possible pneumonia a few weeks ago. He finished a course of ceftriaxone on January 18. The patient was doing reasonably well until last night. He was febrile last night with a temperature of 103.2 degrees and he was also tachycardic and he had an increased oxygen requirement. Normally he is on 28% oxygen via his trach mask. They increased his oxygen to 35% last night. There was concern that he might become septic and therefore they felt he should be evaluated at the emergency room and they sent him here by ambulance rather than trying to do a workup at their facility which would be much less expeditious. On arrival here the patient is nonverbal and is unable to contribute to the history. Related Data Home Medications ?Medication ?Instructions ?Recorded ?Confirmed acetaminophen 325 mg tablet 650 mg feeding tube Q4H PRN Fever 01/02/23 09/30/24 Or Pain albuterol sulfate 2.5 mg/3 mL 2.5 mg inhalation Q4H PRN 01/02/23 09/30/24 (0.083 %) solution for nebulization Shortness Of Breath Or Wheezing atovaquone 750 mg/5 mL oral 750 mg feeding tube BID 01/02/23 09/30/24 suspension bisacodyl 10 mg rectal suppository 10 mg NH DAILY PRN Constipation if 01/02/23 09/30/24 no BM after 8 hours following MoM cholecalciferol (vitamin D3) 1,250 1,250 mcg feeding tube QMONTH 01/02/23 09/30/24 mcg (50,000 unit) tablet finasteride 5 mg tablet 5 mg feeding tube BEDTIME 01/02/23 09/30/24 glycopyrrolate 1 mg tablet 1 mg feeding tube BID 01/02/23 09/30/24 guaifenesin 200 mg/5 mL oral liquid 200 mg feeding tube Q4H PRN Cough 01/02/23 09/30/24 lacosamide 200 mg tablet 200 mg feeding tube BID 01/02/23 09/30/24 leucovorin calcium 25 mg tablet 25 mg feeding tube BEDTIME 01/02/23 09/30/24 lorazepam 0.5 mg tablet 0.5 mg feeding tube Q8H PRN Anxiety 01/02/23 09/30/24 lorazepam 2 mg/mL injection 2 mg IM ONCE PRN Seizures 01/02/23 09/30/24 solution magnesium hydroxide 400 mg/5 mL 30 ml feeding tube DAILY PRN 01/02/23 09/30/24 oral suspension (Milk of Magnesia) Constipation melatonin 3 mg tablet 3 mg feeding tube BEDTIME 01/02/23 09/30/24 ondansetron HCl 2 mg/mL 4 mg IM Q4H PRN Nausea And Vomiting 01/02/23 09/30/24 intravenous solution oxycodone 5 mg tablet 5 mg feeding tube Q6H PRN Pain 01/02/23 09/30/24 (Scale Score 7-10) scopolamine base 1 mg over 3 days 1 patch transdermal Q3D 01/02/23 09/30/24 transdermal patch sennosides 8.6 mg-docusate sodium 2 tab-cap PO BID@0900,1700 01/02/23 09/30/24 50 mg tablet (Senna with Docusate Constipation Sodium) sodium phosphates 19 gram-7 118 ml NH DAILY PRN Constipation 01/02/23 09/30/24 gram/118 mL enema (Fleet Enema) tramadol 50 mg tablet 50 mg feeding tube Q4H PRN Pain 01/02/23 09/30/24 (Scale Score 1-3) multivitamin 1 tab feeding tube DAILY 01/31/23 09/30/24 pyrimethamine 25 mg tablet 50 mg feeding tube BEDTIME 01/31/23 09/30/24 carboxymethylcellulose sodium 0.25 2 drp ophthalmic (eye) BID 10/21/23 02/16/25 % eye drops morphine 10 mg/5 mL oral solution 2.5 mg feeding tube DAILY 06/04/23 09/30/24 sucralfate 1 gram tablet 1 g PO BID@1300,1700 06/04/23 09/30/24 acetylcysteine 200 mg/mL (20 %) 600 mg inhalation Q12H PRN THICK 09/22/23 09/30/24 solution AIRWAY SECRETION ibuprofen 600 mg tablet 600 mg feeding tube Q8H PRN 09/22/23 09/30/24 FEVER/PAIN UNRESPONSIVE TO APAP linaclotide 145 mcg capsule 145 mcg G-tube DAILY 01/27/24 09/30/24 (Linzess) loratadine 10 mg tablet 10 mg feeding tube DAILY 01/27/24 09/30/24 midodrine 5 mg tablet 7.5 mg feeding tube Q8H 01/27/24 09/30/24 omeprazole 20 mg capsule,delayed 20 mg feeding tube BID@0630,1630 01/27/24 09/30/24 release polyethylene glycol 3350 17 gram 17 g feeding tube DAILY@1700 01/27/24 09/30/24 oral powder packet (Miralax) simethicone 80 mg chewable tablet 80 mg feeding tube Q6H 01/27/24 09/30/24 baclofen 5 mg tablet 5 mg feeding tube TID 09/05/24 09/30/24 collagenase clostridium histo. 250 1 appl topical BID 09/05/24 09/30/24 unit/gram topical ointment lidocaine 4 % topical patch 2 patch topical DAILY 09/05/24 09/30/24 carboxymethylcellulose sodium 0.25 1 drp ophthalmic (eye) BID PRN red 09/30/24 09/30/24 % eye drops eyes emollient combination no.119 1 appl topical DAILY 09/30/24 09/30/24 (Eucerin Advanced Repair topical cream) mineral oil 118 ml NH DAILY PRN after mag 09/30/24 09/30/24 citrate to help pass hard stool ondansetron HCl 4 mg tablet 4 mg PO Q4H PRN no relief after 09/30/24 09/30/24 1st dose of zofran phenylephrine 0.25 %-pramoxine 1 1 appl NH Q6H PRN Hemorrhoids 09/30/24 09/30/24 %-glycerin-wh.petrolatum rectal cream Previous Rx's ?Medication ?Instructions ?Recorded sulfamethoxazole 200 20 ml G-tube BID #400 mL 10/02/24 mg-trimethoprim 40 mg/5 mL oral suspension Allergies Allergy/AdvReac Type Severity Reaction Status Date / Time cyclobenzaprine (Flexeril) Allergy Unknown Palpitation Verified 02/08/25 08:55 s Review of Systems Review of Systems: Yes Unobtainable due to mental status PMFSH Past Medical History Medical History Chronic hypoxic respiratory failure Tracheostomy dependent Mantle cell lymphoma Aspiration into airway Stage IV decubitus ulcer Osteomyelitis of pelvis Anemia Toxoplasmosis Encephalopathy 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 Rectal bleeding H/O: RCT (rotator cuff tear) Depression Appendicitis Chronic pain Kidney stone Mantle cell lymphoma Surgical History History of appendectomy Family History Family History Mother COPD (chronic obstructive pulmonary disease) Sister Colon cancer Social History Social History Household Members: None Housing: Longterm Housing Other:: [facility] Do you presently have visiting nurse or other home services: No Unable to assess alcohol history related to: Unable to respond Alcohol intake: unknown Comment: non ambulatory patient Patient Tobacco Use Status: Never used Tobacco Smoked in Last 30 Days: No Second Hand Smoke Exposure: No Use of substances other than those prescribed or required for medical reasons: Unable to respond Substance Use Type: Unknown Advance Directives: Yes Advance Directives on File: Yes Advance Directives Date on File: 06/04/23 service: No Current occupational status: unemployed Physical Exam ED Vital Signs: Vital Signs - 24 hr 02/08/25 08:51 02/08/25 09:49 02/08/25 10:00 Temperature 99.3 F 98.6 F 98.4 F Pulse Rate 81 77 75 Respiratory Rate 21 H 16 14 Blood Pressure 103/64 100/68 97/65 Pulse Oximetry 98 98 98 Oxygen Delivery Method Trach Collar T-Piece Room Air 02/08/25 11:41 02/08/25 12:54 02/08/25 14:19 Temperature 97.7 F 97.9 F 97.2 F Pulse Rate 75 79 76 Respiratory Rate 12 16 Blood Pressure 93/62 92/62 91/61 Pulse Oximetry 100 95 98 Oxygen Delivery Method T-Piece T-Piece T-Piece 02/08/25 16:04 Temperature 98.2 F Pulse Rate 79 Respiratory Rate 17 Blood Pressure 97/59 L Pulse Oximetry 100 Oxygen Delivery Method T-Piece BMI result Body Mass Index 20.1 Const Other: The patient is a very chronically ill-appearing 54-year-old male. He is cachectic. He has a tracheostomy. He has a G-tube. He is minimally responsive. He does not appear in acute respiratory distress or obvious discomfort. It is difficult to say how far his current appearance different from his usual appearance.. HENMT Other: Mucous membranes somewhat dry. Face seems symmetrical. Eyes Other: Pupils are round equal, conjunctivae are clear Neck Other: No neck swelling. No nuchal rigidity. Resp Other: Breath sounds seem reasonably clear bilaterally. No increased work of breathing Cardio Other: No murmur heard Rate: regular rate Rhythm: regular rhythm Heart sounds: S1 normal heart sound present and S2 normal heart sound present GI Other: The patient has a G-tube in place. The abdomen seems soft and I did not appreciate any evident tenderness. Skin Other: Skin is pale and dry. Neuro Other: The patient was initially fairly obtunded. He seems chronically severely deconditioned. Later he was much more alert, making eye contact, and using gestures with his right index finger to indicate yes or no. Extrem Other: The patient has very wasted extremities. Medications Administered Discontinued Medications Generic Name Dose Route Start Last Admin Trade Name Freq PRN Reason Stop Dose Admin Cefepime HCl 2 gm in 50 mls @ 100 mls/hr 02/08/25 09:45 02/08/25 10:26 Maxipime IV 02/08/25 10:14 Infused ONCE ONE Infusion Vancomycin HCl 1,500 mg/ 500 mls @ 333.333 mls/hr 02/08/25 10:00 02/08/25 12:12 Sodium Chloride IV 02/08/25 11:29 Infused ONCE ONE Infusion Sodium Chloride 1,000 mls @ 999 mls/hr 02/08/25 11:45 02/08/25 14:40 Ns IV 02/08/25 12:45 Infused .Q1H1M RACHELL Infusion Trimethoprim/Sulfamethoxazole 510 mls @ 225 mls/hr 02/08/25 12:59 02/08/25 14:19 160 mg/ Dextrose IV 02/08/25 15:14 225 mls/hr ONCE ONE Administration Lidocaine HCl 10 ml 02/08/25 11:00 02/08/25 11:35 Lidocaine Hcl 2 % Urojet 10 Ml Jel.Pf.Mack TOPICAL 02/08/25 11:01 10 ml ONCE ONE Administration Lidocaine HCl 10 ml 02/08/25 11:35 02/08/25 11:39 Lidocaine Hcl 2 % Urojet 10 Ml Jel.Pf.Mack TOPICAL 02/08/25 11:36 10 ml ONCE ONE Administration Medical Decision Making Medical Decision Making [facility] Narrative: The patient is a 54-year-old chronically ill male with a history of 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 He has a tracheostomy and a G-tube. He presents for evaluation of a fever last night to 103.2. Here in the emergency room he has a clear chest x-ray. His abdomen seems benign. Urinalysis suggests a probable UTI. He does not have a chronic indwelling urinary catheter of any kind. He normally wears a condom catheter. His abdomen seems benign. The patient was initially given IV cefepime and vancomycin for broad coverage of possible sepsis. The patient's laboratory evaluation was not significantly consistent with sepsis however. His WBC was 7.0 with no left shift. He had 65.9% lymphocytes. His lactate was normal at 0.6. After his urinalysis came back and it seemed as though his fever might be related to a UTI I reviewed his previous urine culture was from October 29 2024. He grew an E coli species resistant to cefepime, ampicillin, ceftriaxone, and ciprofloxacin. The E coli was sensitive to ertapenem, gentamicin, nitrofurantoin, and trimethoprim/sulfamethoxazole. The patient was given an IV dose of trimethoprim sulfamethoxazole in the emergency room. I spoke to the nurse practitioner at the patient's [facility]. They would feel comfortable having the patient return to their facility to continue trimethoprim sulfamethoxazole there. Lab Data 02/08/25 09:07 02/08/25 09:07 Labs: Lab Results 02/08/25 02/08/25 02/08/25 Range/Units 09:07 09:19 09:29 WBC 7.0 (4.8-10.8) X10*3/uL RBC 3.76 L (4.60-5.80) X10*6/uL Hgb 11.5 L (14.0-18.0) g/dl Hct 33.9 L (42.0-52.0) % MCV 90.2 (80.0-98.0) fL MCH 30.6 (27.0-33.0) pg MCHC 33.9 (31.0-36.0) g/dl RDW 16.4 H (11.0-16.0) % Plt Count 126 L D (160-400) X10*3/uL MPV 10.6 (9.4-12.4) fL Immature Gran % (Auto) 0.3 (0.0-0.4) % Neut % (Auto) 65.9 (45-73) % Lymph % (Auto) 11.9 L (20-40) % [place] % (Auto) 21.7 H (2-11) % Eos % (Auto) 0.1 (0-4) % Baso % (Auto) 0.1 (0-2) % Lymph # (Auto) 0.8 L (1.2-4.9) X10*3/uL [place] # (Auto) 1.5 H (0.1-1.2) X10*3/uL Eos # (Auto) 0.0 (0.0-0.4) X10*3/uL Baso # (Auto) 0.0 (0.0-0.2) X10*3/uL Abs Immat Gran (auto) 0.02 (0.00-0.03) X10*3/uL Absolute Neuts (auto) 4.6 (2.0-8.3) x10*3/uL Absolute Nucleated RBC 0.000 (0.0-0.012) X10*3/uL Nucleated RBC % (auto) 0.0 (0.0-0.2) /100WBC Smear Tech's Comments VERIFIED VBG pH 7.52 H (7.32-7.43) VBG pCO2 40 mmHg VBG pO2 131 mmHg VBG HCO3 33 H (22-26) mmol/L VBG O2 Saturation 99.0 % VBG Base Excess 9.8 mmol/L Sodium 139 (135-145) mmol/L Potassium 3.8 (3.3-5.1) mmol/L Chloride 101 (96-108) mmol/L Carbon Dioxide 27 (22-29) mmol/L Anion Gap 15 (12-20) BUN 30 H (9-16) mg/dL Creatinine 1.31 (0.5-1.4) mg/dL Estim Creat Clear Calc 61.1 Estimated GFR 57 Random Glucose 106 (60-115) mg/dL Lactic Acid 0.6 (0.5-2.0) mmol/L Calcium 8.6 D (8.4-10.2) mg/dL Total Bilirubin 0.6 (0.0-1.0) mg/dL AST 62 H (5-37) U/L ALT 80 H (0-40) U/L Alkaline Phosphatase 184 H (39-117) U/L C-Reactive Protein 12.35 H (< or = 0.50) mg/dL Total Protein 6.8 (6.5-8.0) g/dL Albumin 3.6 (3.5-5.0) g/dL Urine Color Urine Appearance Urine pH (5.0-9.0) Ur Specific [place] (1.005-1.025) Urine Protein (Neg-Trace) mg/dL Urine Glucose (UA) (Negative) mg/dL Urine Ketones (Negative) mg/dL Urine Blood (Negative) Urine Nitrite (Negative) Ur Leukocyte Esterase (Negative) Urine RBC (0-2) /HPF Urine WBC (0-5) /HPF Ur Squamous Epith Cells (0-2) /HPF Urine Bacteria (None Seen) Hyaline Casts (0-2) /LPF Influenza Type A (PCR) NEGATIVE (Negative) Influenza Type B (PCR) NEGATIVE (Negative) RSV RNA Qual (PCR) NEGATIVE (Negative) SARS-CoV-2 RNA (RT-PCR) NEGATIVE (Negative) 02/08/25 Range/Units 12:17 WBC (4.8-10.8) X10*3/uL RBC (4.60-5.80) X10*6/uL Hgb (14.0-18.0) g/dl Hct (42.0-52.0) % MCV (80.0-98.0) fL MCH (27.0-33.0) pg MCHC (31.0-36.0) g/dl RDW (11.0-16.0) % Plt Count (160-400) X10*3/uL MPV (9.4-12.4) fL Immature Gran % (Auto) (0.0-0.4) % Neut % (Auto) (45-73) % Lymph % (Auto) (20-40) % [place] % (Auto) (2-11) % Eos % (Auto) (0-4) % Baso % (Auto) (0-2) % Lymph # (Auto) (1.2-4.9) X10*3/uL [place] # (Auto) (0.1-1.2) X10*3/uL Eos # (Auto) (0.0-0.4) X10*3/uL Baso # (Auto) (0.0-0.2) X10*3/uL Abs Immat Gran (auto) (0.00-0.03) X10*3/uL Absolute Neuts (auto) (2.0-8.3) x10*3/uL Absolute Nucleated RBC (0.0-0.012) X10*3/uL Nucleated RBC % (auto) (0.0-0.2) /100WBC Smear Tech's Comments VBG pH (7.32-7.43) VBG pCO2 mmHg VBG pO2 mmHg VBG HCO3 (22-26) mmol/L VBG O2 Saturation % VBG Base Excess mmol/L Sodium (135-145) mmol/L Potassium (3.3-5.1) mmol/L Chloride (96-108) mmol/L Carbon Dioxide (22-29) mmol/L Anion Gap (12-20) BUN (9-16) mg/dL Creatinine (0.5-1.4) mg/dL Estim Creat Clear Calc Estimated GFR Random Glucose (60-115) mg/dL Lactic Acid (0.5-2.0) mmol/L Calcium (8.4-10.2) mg/dL Total Bilirubin (0.0-1.0) mg/dL AST (5-37) U/L ALT (0-40) U/L Alkaline Phosphatase (39-117) U/L C-Reactive Protein (< or = 0.50) mg/dL Total Protein (6.5-8.0) g/dL Albumin (3.5-5.0) g/dL Urine Color Dark Yellow Urine Appearance Cloudy Urine pH 8.0 (5.0-9.0) Ur Specific [place] 1.020 (1.005-1.025) Urine Protein 300 (3+) H (Neg-Trace) mg/dL Urine Glucose (UA) Negative (Negative) mg/dL Urine Ketones Negative (Negative) mg/dL Urine Blood Large (3+) H (Negative) Urine Nitrite Negative (Negative) Ur Leukocyte Esterase Large (3+) H (Negative) Urine RBC >20 H (0-2) /HPF Urine WBC >50 H (0-5) /HPF Ur Squamous Epith Cells 0-2 (0-2) /HPF Urine Bacteria 4+ (None Seen) Hyaline Casts 3-5 (0-2) /LPF Influenza Type A (PCR) (Negative) Influenza Type B (PCR) (Negative) RSV RNA Qual (PCR) (Negative) SARS-CoV-2 RNA (RT-PCR) (Negative) Discharge Plan Discharge Clinical Impression: Urinary tract infection with fever Patient Disposition: Xfer [facility] Transfer Details: Returning to [facility] where he lives alf Additional Instructions: At this point my assumption is that his fever is coming from a urinary tract infection. Based on his last positive urine culture I think the appropriate management for this urinary tract infection would be with trimethoprim/sulfamethoxazole (Bactrim). This was discussed with HEALTH AND SAFETY TRAINER Courtney Lorenzo. Please resume all previous care with the addition of a course of trimethoprim/sulfamethoxazole (Bactrim). Return to the emergency room if significantly worse Prescriptions: No Action glycopyrrolate 1 mg Tablet 1 mg feeding tube BID leucovorin calcium 25 mg Tablet 25 mg feeding tube BEDTIME melatonin 3 mg Tablet 3 mg feeding tube BEDTIME finasteride 5 mg Tablet 5 mg feeding tube BEDTIME atovaquone 750 mg/5 mL Suspension 750 mg feeding tube BID Rx Instructions: must administer with food, preferably a high-fat meal lacosamide 200 mg Tablet 200 mg feeding tube BID cholecalciferol (vitamin D3) 1,250 mcg (50,000 unit) Tablet 1,250 mcg feeding tube QMONTH Rx Instructions: MONTHLY ON DAY 15 OF THE MONTH acetaminophen 325 mg Tablet 650 mg feeding tube Q4H PRN (Reason: Fever Or Pain) Rx Instructions: Fever >100.5 albuterol sulfate 2.5 mg /3 mL (0.083 %) Solution For Nebulization 2.5 mg INHALATION Q4H PRN (Reason: Shortness Of Breath Or Wheezing) ondansetron HCl 2 mg/mL Solution 4 mg IM Q4H PRN (Reason: Nausea And Vomiting) Rx Instructions: IF NO RELIEF FROM PO sennosides-docusate sodium [Senna with Docusate Sodium] 8.6-50 mg Tablet 2 tab-cap PO BID@0900,1700 Rx Instructions: G-TUBE tramadol 50 mg Tablet 50 mg feeding tube Q4H PRN (Reason: Pain (Scale Score 1-3)) lorazepam 0.5 mg Tablet 0.5 mg feeding tube Q8H PRN (Reason: Anxiety) magnesium hydroxide [Milk of Magnesia] 400 mg/5 mL Suspension 30 ml feeding tube DAILY PRN (Reason: Constipation) Rx Instructions: If no BM after 3 days - give on the tenth shift x1 dose bisacodyl 10 mg Suppository 10 mg NH DAILY PRN (Reason: Constipation if no BM after 8 hours following MoM) Rx Instructions: If no BM after 8 hours following MOM X1 dose Fleet Enema 19-7 gram/118 mL Enema 118 ml NH DAILY PRN (Reason: Constipation) Rx Instructions: If No BM in 1 hour after Bisacodyl supp X1 dose scopolamine base 1 mg over 3 days Patch 3 Day 1 patch TRANSDERMAL Q3D oxycodone 5 mg Tablet 5 mg feeding tube Q6H PRN (Reason: Pain (Scale Score 7-10)) guaifenesin 200 mg/5 mL Liquid 200 mg feeding tube Q4H PRN (Reason: Cough) lorazepam 2 mg/mL Solution 2 mg IM ONCE PRN (Reason: Seizures) Rx Instructions: 2 mg intramuscularly as directed for seizure >2 minutes multivitamin Tablet 1 tab feeding tube DAILY pyrimethamine 25 mg Tablet 50 mg feeding tube BEDTIME sucralfate 1 gram Tablet 1 g PO BID@1300,1700 Rx Instructions: Give 1 hour after feedings finish and 1 hour before staring feedings carboxymethylcellulose sodium 0.25 % Drops 2 drp OPHTHALMIC (EYE) BID morphine 10 mg/5 mL Solution 2.5 mg feeding tube DAILY lidocaine 4 % Adhesive Patch,Medicated 2 patch TOPICAL DAILY Rx Instructions: BILAT SHOULDER PAIN collagenase clostridium histo. 250 unit/gram Ointment 1 appl TOPICAL BID baclofen 5 mg Tablet 5 mg feeding tube TID acetylcysteine 200 mg/mL (20 %) Solution 600 mg INHALATION Q12H PRN (Reason: THICK AIRWAY SECRETION) ibuprofen 600 mg Tablet 600 mg feeding tube Q8H PRN (Reason: FEVER/PAIN UNRESPONSIVE TO APAP) loratadine 10 mg Tablet 10 mg feeding tube DAILY Linzess 145 mcg Capsule 145 mcg G-tube DAILY polyethylene glycol 3350 [Miralax] 17 gram Powder In Packet 17 g feeding tube DAILY@1700 Rx Instructions: mix in 8 oz of fluid ( not mix with starch-thickened liquids) omeprazole 20 mg Capsule,Delayed Release(Dr/Ec) 20 mg feeding tube BID@0630,1630 simethicone 80 mg Tablet,Chewable 80 mg feeding tube Q6H midodrine 5 mg Tablet 7.5 mg feeding tube Q8H Rx Instructions: do not give last dose of day after 6PM or within 4 hrs of bedtime HOLF IF SBP >120 mmHg ondansetron HCl 4 mg Tablet 4 mg PO Q4H PRN (Reason: no relief after 1st dose of zofran) carboxymethylcellulose sodium 0.25 % Drops 1 drp OPHTHALMIC (EYE) BID PRN (Reason: red eyes) mineral oil Enema 118 ml NH DAILY PRN (Reason: after mag citrate to help pass hard stool) Rx Instructions: discard any unused portion Eucerin Advanced Repair Cream 1 appl TOPICAL DAILY [id number].pet 0.25-1 % Cream 1 appl NH Q6H PRN (Reason: Hemorrhoids) sulfamethoxazole-trimethoprim 200-40 mg/5 mL Suspension 20 ml G-tube BID Qty: 400 0RF Print Language: Unable To Collect
[2025-02-08 09:18] LABS: Basophils Percent Auto 0.1 % (0-2); Eosinophils Percent Auto 0.1 % (0-4); Hematocrit 33.9 % (42.0-52.0); Hemoglobin 11.5 g/dl (14.0-18.0); Imm Gran Abs Auto 0.02 X10*3/uL (0.00-0.03); Imm Gran Pct Auto 0.3 % (0.0-0.4); Lymphocytes Absolute Auto 0.8 X10*3/uL (1.2-4.9); Lymphocytes Percent Auto 11.9 % (20-40); MANUAL DIFF FLAG SCAN; Mean Corpuscular HGB Conc 33.9 g/dl (31.0-36.0); Mean Corpuscular Hemoglobin 30.6 pg (27.0-33.0); Mean Corpuscular Volume 90.2 fL (80.0-98.0); Mean Platelet Volume 10.6 fL (9.4-12.4); Monocytes Absolute Auto 1.5 X10*3/uL (0.1-1.2); Monocytes Percent Auto 21.7 % (2-11); Neutrophils Absolute Auto 4.6 x10*3/uL (2.0-8.3); Neutrophils Percent Auto 65.9 % (45-73); Platelet Count 126 X10*3/uL (160-400); Red Blood Count 3.76 X10*6/uL (4.60-5.80); Red Cell Distribution Width 16.4 % (11.0-16.0); SCAN SMEAR FLAG 1
[2025-02-08 09:22] LABS: Venous Blood Gas Refer to POC result
[2025-02-08 09:22] LABS: VBG Base Excess 9.8 mmol/L; VBG HCO3 33 mmol/L (22-26); VBG pCO2 40 mmHg; VBG pH 7.52 (7.32-7.43); VBG pO2 131 mmHg
--- OUTSIDE RECORDS SUMMARY | 2025-02-08 09:30 | XMS_ITS | Clinical Summary ---
Author Organization [employer] Address [address] [place] [address] Care Team Providers Care Enrichment Teacher Name Role Phone Unavailable Primary Care Provider Unavailabl e Social History Tobacco Use Types Packs/Day Years Used Date Smoking Tobacco: Never Assessed Sex and Gender Information Value Date Recorded Sex Assigned at Not on file Legal Sex Male 1:47 PM EST Gender Identity Not on file Sexual Orientation Not on file Plan of Treatment Health Maintenance Due Date Last Done Comments CT Colonography 1972 Colonoscopy 1972 Colorectal Cancer Screening 1972 Depression Screening 1972 FIT DNA/Cologuard 1972 FIT 1972 FOBT 1972 HIV Screening 1972 Lipid Panel 1972 SDOH Screening 1972 Sigmoidoscopy 1972 Disability Screening 1972 Alcohol/Substance Use Screening 1984 Tobacco Screening 1984 Family Planning (PISQ) 12/10/1987 Hepatitis C Screening 1990 DTaP/Tdap/Td Vaccines (1 - Tdap) 12/10/1991 Hepatitis B Vaccines (1 of 3 - 19+ 3-dose series) 12/10/1991 Pneumococcal Vaccine: 50+ Ye ars (1 of 1 - PCV) 2022 Zoster Vaccines (1 of 2) 2022 COVID-19 Vaccine ( - 2023-2 5 season) 2024 Influenza Vaccine (Season Ended) 2025 RSV Patients and Pa tients Aged 60 years or older (1 - 1-dose 75+ series) 12/10/2047 HIB Vaccines Aged Out No longer eligi ble based on patient's age to complete this topic HPV Vaccines Aged Out No longer eligi ble based on patient's age to complete this topic Hepatitis A Vaccines Aged Out No long er eligible based on patient's age to complete this topic IPV Vaccines Aged Out No longer eligi ble based on patient's age to complete this topic Meningococcal B Vaccine Aged Out No l onger eligible based on patient's age to complete this topic Meningococcal Vaccine Aged Out No maricruz jane eligible based on patient's age to complete this topic RSV under 20 months Aged Out No longe r eligible based on patient's age to complete this topic Rotavirus Vaccines Aged Out No longer eligible based on patient's age to complete this topic
[2025-02-08 09:32] LABS: Lactic Acid 0.6 mmol/L (0.5-2.0)
[2025-02-08 09:41] LABS: SLIDE REVIEW VERIFIED
[2025-02-08 09:52] LABS: Alanine Aminotransferase 80 U/L (0-40); Albumin Level 3.6 g/dL (3.5-5.0); Alkaline Phosphatase 184 U/L (39-117); Anion Gap 15 (12-20); Aspartate Amino Transferase 62 U/L (5-37); Bilirubin Total 0.6 mg/dL (0.0-1.0); Blood Urea Nitrogen 30 mg/dL (9-16); C Reactive Protein 12.35 mg/dL (< or = 0.50); Calcium 8.6 mg/dL (8.4-10.2); Carbon Dioxide 27 mmol/L (22-29); Chloride 101 mmol/L (96-108); Creatinine Clr Calc Pharmacy 61.1; Estimated Glomerular Filt Rate 57; Glucose Random 106 mg/dL (60-115); Potassium 3.8 mmol/L (3.3-5.1); Sodium 139 mmol/L (135-145); Total Protein 6.8 g/dL (6.5-8.0)
[2025-02-08] MEDS: cefEPime HCl/D5W 2 GM/50 ML PIGGYBACK IV (09:56)
[2025-02-08 10:14] LABS: Influenza A PCR NEGATIVE (Negative); Influenza B PCR NEGATIVE (Negative); Resp Syncy Virus RNA Qual PCR NEGATIVE (Negative); SARS COV2 PCR INHOUSE NEGATIVE (Negative)
[2025-02-08] MEDS: vancomycin HCL 1,500 MG in 0.9 % Sodium Chloride 500 ML 333.33 MG IV (10:25)
--- NOTE | 2025-02-08 11:32 | PC.NURSE ---
this RN attempted straight cath of patient, unsuccessful attempt. ED provider at bedside for attempt, unsuccessful. ED provider requested condom cath for UA sample. condom cath applied
[2025-02-08] MEDS: Lidocaine HCl 2 % Urojet 10 ML JEL.PF.APP TOPICAL ×2 (11:35→11:39)
[2025-02-08] MEDS: 0.9 % Sodium Chloride 1,000 ML 999 ML IV (11:38)
[2025-02-08 12:30] LABS: Appearance Urine Cloudy; Color Urine Dark Yellow; Glucose Urine UA Negative (Negative); Leukocyte Esterase Urine Large (3+) (Negative); Nitrite Urine Negative (Negative); UMIC TRIGGER UACC YES; Urine Blood Large (3+) (Negative); Urine Ketones Negative (Negative); Urine Protein 300 (3+) mg/dL (Neg-Trace)
[2025-02-08 12:33] LABS: Bacteria Urine 4+ (None Seen); RBC Urine >20 /HPF (0-2); Squamous Epithelial Cell Urine 0-2 /HPF (0-2); UACC Culture Trigger YES; WBC Urine >50 /HPF (0-5)
[2025-02-08] MEDS: Sulfamethoxazole/Trimethoprim 160 MG in Dextrose 5 % 500 ML 225 MG IV (14:19)
--- NOTE | 2025-02-08 18:06 | MHC.EDTECH ---
Patient inc therefore patient changed and repositioned
== END 2025-02-08 20:42 | disposition skilled nursing facility (03) ==
PROVIDERS: Emergency Provider Emergency Medicine; PCP Nurse Practitioner Adult Health
DX: N39.0 Urinary tract infection, site not specified (principal); R50.9 Fever, unspecified; Z03.818 Encounter for observation for suspected exposure to other biological agents ruled out; Z93.0 Tracheostomy status; Z93.1 Gastrostomy status
CPT/HCPCS: 0241U; 36415; 71045; 80053; 81001; 82803; 83605; 85025; 86140; 87040; 87086; 96361; 96365; 96366; 96367; 99285; J0692; J2865; J3371

== ENCOUNTER → 2025-02-08 09:12 | Outpatient (BNV) | payer MEDICAID, SELFPAY | PROVIDERS: Emergency Provider Emergency Medicine; PCP Nurse Practitioner Adult Health; Visit Provider Radiology Diagnostic Radiology | DX: R50.9 Fever, unspecified (principal) | CPT/HCPCS: 71045 ==

== ENCOUNTER 2025-05-21 12:08 | Outpatient (REF) | payer MEDICAID, SELFPAY | END 2025-05-21 12:09 | disposition home or self-care (01) | LOC: HO.WMHL 12:08 | PROVIDERS: Visit Provider Nurse Practitioner | DX: Z13.89 Encounter for screening for other disorder (principal) ==

== ENCOUNTER 2025-07-14 17:42 | Inpatient (IN) | payer MEDICAID, SELFPAY ==
[2025-07-14] VITALS (10 sets, daily range): BP systolic 93–104; BP diastolic 48–67; PULSE 113–125; RESP 8–20; TEMP 37.6–39.4; O2SAT 93–98; BMI 25.5
--- NOTE | 2025-07-14 | ECG_ITS ---
Test Reason : CHECK QTC Blood Pressure : */* mmHG Vent. Rate : 123 BPM Atrial Rate : 123 BPM P-R Int : 150 ms QRS Dur : 82 ms QT Int : 340 ms P-R-T Axes : 52 22 63 degrees QTcB Int : 486 ms Sinus tachycardia Prolonged QT Abnormal ECG When compared with ECG of 30-Sep-2024 12:41, No significant change was found Referred By: Tanisha Adame Electronically Signed By: NOAH SILVA
--- NOTE | ~2025-07-14 | CT_ITS ---
CLINICAL HISTORY: ams CT head without contrast Comparison: None provided Findings: Postsurgical changes related to left frontoparietal craniotomy. There is underlying encephalomalacia/gliosis of the left frontal lobe. Right cerebellar hemisphere encephalomalacia/gliosis and central area of calcification is seen. Similarly small focus of encephalomalacia/gliosis within the right temporal lobe with central area of calcification, bilateral basal ganglia chronic lacunar infarcts with areas of calcification is present. Left occipital lobe area of calcification and encephalomalacia also seen. No intra-axial mass, midline shift, hydrocephalus, or acute hemorrhage. No significant atrophy-like change or white matter disease. The visualized paranasal sinuses and mastoid air cells are normal. The orbits are unremarkable. There is no acute fracture. IMPRESSION: 1. No evidence of acute territorial infarct or intracranial hemorrhage. 2. Multifocal chronic areas of encephalomalacia with central regions of calcifications as detailed above, most likely represent chronic infarcts. Correlation with prior imaging is recommended. This document has been electronically signed by: Ramiro Stewart MD on 07/14/2025 20:28:35
--- NOTE | ~2025-07-14 | CT_ITS ---
CLINICAL HISTORY: Status post trach coughing upper respiratory sympt CT chest without contrast Comparison: CR - XR CHEST 1V - 07/14/25 18:44 EST Findings: The heart is normal size. The visualized thyroid and mediastinum are unremarkable. Tracheostomy tube is within the thoracic inlet. Mild patchy ground-glass opacities of both lungs may represent small volume aspiration. Tiny left pleural effusion and bibasilar atelectatic changes. The upper abdomen is unremarkable. No acute fractures. IMPRESSION: 1. Tracheostomy tube is within the thoracic inlet. Mild patchy ground-glass opacities in both lungs may represent small volume aspiration or mild fluid overload. Tiny left pleural effusion and bibasilar atelectatic changes. This document has been electronically signed by: Ramiro Stewart MD on 07/14/2025 20:34:49
--- NOTE | ~2025-07-14 | XR_ITS ---
CLINICAL HISTORY: sob 1 view chest x-ray Comparison: CR/SR - XR CHEST 1 VIEW - 02/08/25 09:33 EDT Findings: No consolidation or effusion. Mild interstitial prominence in both lungs. New bibasilar subsegmental atelectatic changes. Normal size heart. No acute fracture. Tracheostomy tube is within the thoracic inlet. IMPRESSION: 1. Tracheostomy tube is within the thoracic inlet. Mild diffuse interstitial prominence in both lungs may represent pulmonary vascular congestion /fluid overload. This document has been electronically signed by: Ramiro Stewart MD on 07/14/2025 19:10:48
--- NOTE | ~2025-07-14 | US_ITS ---
EXAMINATION: US RETROPERITONEAL LIMITED (RENAL ONLY) CLINICAL INFORMATION: TAMMY. COMPARISON: Correlated to CT dated July 14, 2025. TECHNIQUE: Real-time ultrasound kidneys using grayscale technique. FINDINGS: Limited examination. RIGHT KIDNEY: 10 x 5 x 5 cm (SAG x AP x TRV). Volume: 113 cc. Normal echotexture. Renal cortical thickness is normal. No hydronephrosis. No gross solid or cystic lesion. LEFT KIDNEY: 12 x 4 x 5 cm (SAG x AP x TRV). Volume: 111 cc. Normal echotexture. Renal cortical thickness is normal. No hydronephrosis. No gross solid or cystic lesion. US/US renal BI IMPRESSION: No hydronephrosis or gross nephrolithiasis. Please refer to the noncontrast CT abdomen and pelvis findings dated July 14, 2025.. Electronically signed by: Kushal Kunz MD 07/15/2025 01:13 PM [facility]
--- NOTE | ~2025-07-14 | CT_ITS ---
CLINICAL HISTORY: abd distention history of abdominal surgery unsure --- Additional Notes or Special Instructions: Nausea vomiting CT abdomen and pelvis without contrast Comparison: CT/DE/SR - CT ABDOMEN PELVIS WITH IV CONTRAST - 01/28/24 14:38 EDT Findings: Small left basilar patchy consolidation which could represent atelectasis or early airspace disease. Unremarkable gallbladder and solid organs. No urolithiasis. Nondilated large bowel loops with moderate diffuse wall thickening, and surrounding fat stranding with liquid stool. The bowel loops are nondilated. Pelvic contents unremarkable. Appendix is not definitely visualized. No acute fracture. IMPRESSION: Diffuse circumferential moderate wall thickening and surrounding fat stranding of the colon with liquid stool, concerning for infectious or inflammatory colitis such as c diff colitis. Correlate clinically. Left basilar patchy consolidation may represent atelectasis or early airspace disease such as pneumonia. This document has been electronically signed by: Ramiro Stewart MD on 07/14/2025 21:05:42
--- NOTE | 2025-07-14 18:01 | ED_ITS ---
HPI - SOB/Dyspnea General Chief Complaint: General Medical Stated Complaint: Fever & diarrhea x4 days, cloudy urine Time Seen by Provider: 07/14/25 17:51 History of Present Illness HPI Narrative: Patient is 54 years old presents today with having change in mental status high fever coughing. History of mantle cell tumor baseline contracted baseline on a vent. Patient was noted to have fever diarrhea generalized malaise. Sent in for further evaluation. No Tylenol was given. Patient is a full code. Unable to answer question due to patient's baseline mental status. History of tox so history of sepsis history of chronically trach history of abdominal surgery. Question type of surgery. Related Data Home Medications ?Medication ?Instructions ?Recorded ?Confirmed acetaminophen 325 mg tablet 650 mg feeding tube Q4H MA N Fever 01/02/23 09/30/24 Or Pain albuterol sulfate 2.5 mg/3 mL 2.5 mg inhalation Q4H MA N 01/02/23 09/30/24 (0.083 %) solution for nebulization Shortness Of Breat h Or Wheezing atovaquone 750 mg/5 mL oral 750 mg feeding tube BID 09/30/24 suspension bisacodyl 10 mg rectal suppository 10 mg MA DAILY PRN Constipation if 01/02/23 09/30/24 no BM after 8 hours following MoM cholecalciferol (vitamin D3) 1,250 1,250 mcg feeding t ube QMONTH 01/02/23 09/30/24 mcg (50,000 unit) tablet finasteride 5 mg tablet 5 mg feeding tube BEDTIME 09/30/24 glycopyrrolate 1 mg tablet 1 mg feeding tube BID 01/0209/30/24 guaifenesin 200 mg/5 mL oral liquid 200 mg feeding tub e Q4H PRN Cough 01/02/23 09/30/24 lacosamide 200 mg tablet 200 mg feeding tube BID 12/1409/30/24 leucovorin calcium 25 mg tablet 25 mg feeding tube BED TIME 01/02/23 09/30/24 lorazepam 0.5 mg tablet 0.5 mg feeding tube Q8H PRN Anxiety 01/02/23 09/30/24 lorazepam 2 mg/mL injection 2 mg IM ONCE PRN Seizures 01/02/23 09/30/24 solution magnesium hydroxide 400 mg/5 mL 30 ml feeding tube JACK LY PRN 01/02/23 09/30/24 oral suspension (Milk of Magnesia) Constipation melatonin 3 mg tablet 3 mg feeding tube BEDTIME 09/30/24 ondansetron HCl 2 mg/mL 4 mg IM Q4H PRN Nausea And V omiting 01/02/23 09/30/24 intravenous solution oxycodone 5 mg tablet 5 mg feeding tube Q6H PRN Pa in 01/02/23 09/30/24 (Scale Score 7-10) scopolamine base 1 mg over 3 days 1 patch transdermal Q3D 01/02/23 09/30/24 transdermal patch sennosides 8.6 mg-docusate sodium 2 tab-cap PO BID@090 0,1700 01/02/23 09/30/24 50 mg tablet (Senna with Docusate Constipation Sodium) sodium phosphates 19 gram-7 118 ml MA DAILY PRN Consti pation 01/02/23 09/30/24 gram/118 mL enema (Fleet Enema) tramadol 50 mg tablet 50 mg feeding tube Q4H PRN P ain 01/02/23 09/30/24 (Scale Score 1-3) multivitamin 1 tab feeding tube DAILY 09/30/24 pyrimethamine 25 mg tablet 50 mg feeding tube BEDTIME 01/31/23 09/30/24 carboxymethylcellulose sodium 0.25 2 drp ophthalmic (e ye) BID 06/04/23 09/30/24 % eye drops morphine 10 mg/5 mL oral solution 2.5 mg feeding tube DAILY 06/04/23 09/30/24 sucralfate 1 gram tablet 1 g PO BID@1300,1700 3 09/30/24 acetylcysteine 200 mg/mL (20 %) 600 mg inhalation Q12H PRN THICK 09/22/23 09/30/24 solution AIRWAY SECRETION ibuprofen 600 mg tablet 600 mg feeding tube Q8H PRN 09/22/23 09/30/24 FEVER/PAIN UNRESPONSIVE TO APAP linaclotide 145 mcg capsule 145 mcg G-tube DAILY 01/2609/30/24 (Linzess) loratadine 10 mg tablet 10 mg feeding tube DAILY 09/30/24 midodrine 5 mg tablet 7.5 mg feeding tube Q8H 01/1309/30/24 omeprazole 20 mg capsule,delayed 20 mg feeding tube BI D@0630,1630 01/27/24 09/30/24 release polyethylene glycol 3350 17 gram 17 g feeding tube JACK LY@1700 01/27/24 09/30/24 oral powder packet (Miralax) simethicone 80 mg chewable tablet 80 mg feeding tube Q 6H 01/27/24 09/30/24 baclofen 5 mg tablet 5 mg feeding tube TID 09/30/24 collagenase clostridium histo. 250 1 appl topical BID 09/05/24 09/30/24 unit/gram topical ointment lidocaine 4 % topical patch 2 patch topical DAILY 08/1609/30/24 carboxymethylcellulose sodium 0.25 1 drp ophthalmic (e ye) BID PRN red 09/30/24 09/30/24 % eye drops eyes emollient combination no.119 1 appl topical DAILY 09/1509/30/24 (Eucerin Advanced Repair topical cream) mineral oil 118 ml MA DAILY PRN after ma g 09/30/24 09/30/24 citrate to help pass hard stool ondansetron HCl 4 mg tablet 4 mg PO Q4H PRN no relief after 09/30/24 09/30/24 1st dose of zofran phenylephrine 0.25 %-pramoxine 1 1 appl MA Q6H PRN Hem orrhoids 09/30/24 09/30/24 %-glycerin-wh.petrolatum rectal cream Previous Rx's ?Medication ?Instructions ?Recorded sulfamethoxazole 200 20 ml G-tube BID #400 mL mg-trimethoprim 40 mg/5 mL oral suspension Allergies Allergy/AdvReac Type Severity Reaction Status Date / Time cyclobenzaprine (Flexeril) Allergy Unknown Palpitation Verified 07/14/25 18:01 s [facility] Past Medical History Medical History Chronic hypoxic respiratory failure Tracheostomy dependent Mantle cell lymphoma Aspiration into airway Stage IV decubitus ulcer Osteomyelitis of pelvis Anemia Toxoplasmosis Encephalopathy 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 Rectal bleeding H/O: RCT (rotator cuff tear) Depression Appendicitis Chronic pain Kidney stone Mantle cell lymphoma Surgical History History of appendectomy Family History Family History Mother COPD (chronic obstructive pulmonary disease) Sister Colon cancer Social History Social History Household Members: None Housing: [facility] Housing Other:: [facility] Do you presently have visiting nurse or other home services: No Alcohol intake: unknown Comment: non ambulatory patient Patient Tobacco Use Status: Never used Tobacco Smoked in Last 30 Days: No Second Hand Smoke Exposure: No Use of substances other than those prescribed or required for medical reasons: No Substance Use Type: Unknown Advance Directives: Yes Advance Directives on File: Yes Advance Directives Date on File: 10/02/24 Do you have a plan to hurt others: No Plan service: No Current occupational status: unemployed Physical Exam 2 Vital Signs: Vital Signs: Last Vital Signs Temp 99.6 F 07/14/25 22:33 Pulse 115 H 07/14/25 22:33 Resp 20 07/14/25 22:33 BP 101/67 07/14/25 22:33 Pulse Ox 94 07/14/25 22:33 O2 Del Method Trach Collar 07/14/25 22:33 O2 Flow Rate 6 07/14/25 22:33 BMI result Body Mass Index 25.5 Medications Administered Discontinued Medications Generic Name Dose Route Start Last Admin Trade Name Freq PRN Reason Stop Dose Admin Acetaminophen 1,000 mg in 100 mls @ 400 mls/hr 07/14/25 17:51 07/14/25 18:54 Ofirmev IV 07/14/25 18:05 Infused ONCE ONE Infusion Vancomycin HCl 1,000 mg/ 270 mls @ 270 mls/hr 07/14/25 17:55 07/14/25 19:43 Sodium Chloride IV 07/14/25 18:54 Infused ONCE ONE Infusion Sodium Chloride 1,000 mls @ 999 mls/hr 07/14/25 18:00 07/14/25 20:31 Ns IV 07/14/25 19:00 Infused .Q1H1M RACHELL Infusion Sodium Chloride 500 mls @ 999 mls/hr 07/14/25 18:00 07/14/25 20:31 Ns IV 07/14/25 18:30 Infused .Q31M RACHELL Infusion Ertapenem 1 gm/ Sodium 50 mls @ 100 mls/hr 07/14/25 17:59 07/14/25 18:59 Chloride IV 07/14/25 18:28 Infused ONCE ONE Infusion Medical Decision Making Medical Decision Making [facility] Narrative: Patient is 54 years old history of mantle cell cancer with a history of chronically being trached. On 5 L of oxygen baseline. Presented with increasing shortness of breath. High fever. My interpretation patient's chest x-ray showed multiple areas potential infiltrates bilaterally. Patient is urine came back grossly infected. Patient previous culture result was reviewed. Significant resistance. Started on meropenem. IV fluids given. Sepsis protocol followed. Patient's initial lactate was 3.8 white count was over 20. After patient received 30 cc/kilos fluids. Repeat focal exam for sepsis was done. Symptomatically about the same. Lactate however came down below 2. No evidence for severe sepsis. ICU came down evaluated patient. CT scan of the head chest abdomen pelvis was done. Consistent with having pneumonia. No intracranial bleed. CTA of the abdomen showed nonspecific finding. Question C diff. patient did have nausea vomiting diarrhea did have a history of C diff per previous report. Will need to be monitored. Hospitalist team was contacted after the financial director had a chance evaluate patient felt patient is safe to be on the floor. Differential Diagnosis Differential Diagnoses: The differential diagnosis associated with the presentation includes Pneumonia, UTI, sepsis, C diff Admission/Observation Consideration of admission/observation: Escalation of care including admission/observation considered Consult Healthcare Provider Management of the patient was discussed with: Thinner Sprayer (Hospitalist, financial director) Lab Data [facility] Lab Attestation statement: I reviewed the patient's lab results. 07/14/25 18:17 07/14/25 18:17 Labs: Lab Results 07/14/25 07/14/25 07/14/25 Range/Units 18:17 18:21 18:28 WBC 24.9 H (4.8-10.8) X10*3/uL RBC 3.92 L (4.60-5.80) X10*6/uL Hgb 12.3 L (14.0-18.0) g/dl Hct 36.7 L (42.0-52.0) % MCV 93.6 (80.0-98.0) fL MCH 31.4 (27.0-33.0) pg MCHC 33.5 (31.0-36.0) g/dl RDW 15.9 (11.0-16.0) % Plt Count 321 D (160-400) X10*3/uL MPV 10.1 (9.4-12.4) fL Immature Gran % (Auto) Cancelled Neut % (Auto) Cancelled Lymph % (Auto) Cancelled [facility] % (Auto) Cancelled Eos % (Auto) Cancelled Baso % (Auto) Cancelled Lymph # (Auto) Cancelled [facility] # (Auto) Cancelled Eos # (Auto) Cancelled Baso # (Auto) Cancelled Abs Immat Gran (auto) Cancelled Absolute Neuts (auto) Cancelled Absolute Nucleated RBC 0.000 (0.0-0.012) X10*3/uL Nucleated RBC % (auto) 0.0 (0.0-0.2) /100WBC Neutrophils % (Manual) 94 H (45-73) % Band Neutrophils % 0 L (3-5) % Lymphocytes % (Manual) 1 L (20-40) % Monocytes % (Manual) 5 (2-11) % Abs Neuts (Manual) 23.4 H (2.0-8.3) X10*3/uL Lymphocytes # (Manual) 0.2 L (1.2-4.9) X10*3/uL Monocytes # (Manual) 1.2 (0.1-1.2) X10*3/uL Platelet Estimate NORMAL (NORMAL) Plt Morphology Comment NORMAL RBC Morphology NORMAL VBG pH 7.44 H (7.32-7.43) VBG pCO2 30 mmHg VBG pO2 134 mmHg VBG HCO3 21 L (22-26) mmol/L VBG O2 Saturation 99.0 % VBG Base Excess -1.8 mmol/L Sodium 132 L (135-145) mmol/L Potassium 3.7 (3.3-5.1) mmol/L Chloride 93 L (96-108) mmol/L Carbon Dioxide 23 (22-29) mmol/L Anion Gap 20 (12-20) BUN 69 H (9-16) mg/dL Creatinine 4.09 H* (0.5-1.4) mg/dL Estim Creat Clear Calc 19.0 Estimated GFR 15 Random Glucose 108 (60-115) mg/dL Lactic Acid 3.8 H* (0.5-2.0) mmol/L Lactic Acid F/U @ 2Hr (0.5-2.0) mmol/L Calcium 9.0 (8.4-10.2) mg/dL Total Bilirubin 1.0 (0.0-1.0) mg/dL Direct Bilirubin 0.7 H (0.0-0.5) mg/dL AST 36 (5-37) U/L ALT 51 H (0-40) U/L Alkaline Phosphatase 246 H (39-117) U/L Troponin I High Sens < 2.7 D (<3.5-35.0) ng/L Total Protein 7.3 (6.5-8.0) g/dL Albumin 3.7 (3.5-5.0) g/dL Urine Color Dark Yellow Urine Appearance Turbid Urine pH 5.5 (5.0-9.0) Ur Specific [place] 1.015 (1.005-1.025) Urine Protein 100 (2+) H (Neg-Trace) mg/dL Urine Glucose (UA) Negative (Negative) mg/dL Urine Ketones Negative (Negative) mg/dL Urine Blood Small (1+) H (Negative) Urine Nitrite Positive H (Negative) Ur Leukocyte Esterase Large (3+) H (Negative) Urine RBC 0-2 (0-2) /HPF Urine WBC >50 H (0-5) /HPF Ur Squamous Epith Cells 6-10 (0-2) /HPF Urine Bacteria 4+ (None Seen) Hyaline Casts 3-5 (0-2) /LPF Influenza Type A (PCR) NEGATIVE (Negative) Influenza Type B (PCR) NEGATIVE (Negative) RSV RNA Qual (PCR) NEGATIVE (Negative) SARS-CoV-2 RNA (RT-PCR) NEGATIVE (Negative) 07/14/25 Range/Units 20:38 WBC (4.8-10.8) X10*3/uL RBC (4.60-5.80) X10*6/uL Hgb (14.0-18.0) g/dl Hct (42.0-52.0) % MCV (80.0-98.0) fL MCH (27.0-33.0) pg MCHC (31.0-36.0) g/dl RDW (11.0-16.0) % Plt Count (160-400) X10*3/uL MPV (9.4-12.4) fL Immature Gran % (Auto) Neut % (Auto) Lymph % (Auto) [facility] % (Auto) Eos % (Auto) Baso % (Auto) Lymph # (Auto) [facility] # (Auto) Eos # (Auto) Baso # (Auto) Abs Immat Gran (auto) Absolute Neuts (auto) Absolute Nucleated RBC (0.0-0.012) X10*3/uL Nucleated RBC % (auto) (0.0-0.2) /100WBC Neutrophils % (Manual) (45-73) % Band Neutrophils % (3-5) % Lymphocytes % (Manual) (20-40) % Monocytes % (Manual) (2-11) % Abs Neuts (Manual) (2.0-8.3) X10*3/uL Lymphocytes # (Manual) (1.2-4.9) X10*3/uL Monocytes # (Manual) (0.1-1.2) X10*3/uL Platelet Estimate (NORMAL) Plt Morphology Comment RBC Morphology VBG pH (7.32-7.43) VBG pCO2 mmHg VBG pO2 mmHg VBG HCO3 (22-26) mmol/L VBG O2 Saturation % VBG Base Excess mmol/L Sodium (135-145) mmol/L Potassium (3.3-5.1) mmol/L Chloride (96-108) mmol/L Carbon Dioxide (22-29) mmol/L Anion Gap (12-20) BUN (9-16) mg/dL Creatinine (0.5-1.4) mg/dL Estim Creat Clear Calc Estimated GFR Random Glucose (60-115) mg/dL Lactic Acid (0.5-2.0) mmol/L Lactic Acid F/U @ 2Hr 1.5 (0.5-2.0) mmol/L Calcium (8.4-10.2) mg/dL Total Bilirubin (0.0-1.0) mg/dL Direct Bilirubin (0.0-0.5) mg/dL AST (5-37) U/L ALT (0-40) U/L Alkaline Phosphatase (39-117) U/L Troponin I High Sens (<3.5-35.0) ng/L Total Protein (6.5-8.0) g/dL Albumin (3.5-5.0) g/dL Urine Color Urine Appearance Urine pH (5.0-9.0) Ur Specific [place] (1.005-1.025) Urine Protein (Neg-Trace) mg/dL Urine Glucose (UA) (Negative) mg/dL Urine Ketones (Negative) mg/dL Urine Blood (Negative) Urine Nitrite (Negative) Ur Leukocyte Esterase (Negative) Urine RBC (0-2) /HPF Urine WBC (0-5) /HPF Ur Squamous Epith Cells (0-2) /HPF Urine Bacteria (None Seen) Hyaline Casts (0-2) /LPF Influenza Type A (PCR) (Negative) Influenza Type B (PCR) (Negative) RSV RNA Qual (PCR) (Negative) SARS-CoV-2 RNA (RT-PCR) (Negative) Independent Interpretation I performed an independent interpretation of an: CT Scan (CT head negative for bleed) Radiology Impression Discussion of test interpretation with radiology: I have reviewed the radiologist's reading. External Record Review External record reviewed: Inpatient record and Outpatient record Critical Care Time Critical Care Time Critical Care Time: Yes Total Critical Care Time: 40 Attestation: I have personally provided 40 minutes of critical care time exclusive of time spent on separately billable procedures. ?Time includes review of lab data, radiology results, discussion with consultants, and monitoring for potential decompensation. ?Interventions were performed as documented above Discharge Plan Discharge Clinical Impression: Pneumonia, Urinary tract infection Patient Disposition: Admitted As Inpatient
--- OUTSIDE RECORDS SUMMARY | 2025-07-14 18:28 | XMS_ITS | Encounter Summary ---
Author Organization [facility] Address [address] [place] [address] Care Team Providers Care Aerospace Manager Name Role Phone Ref, Hasnopcp Primary Care Provider Unavailabl e Encounter Details Date Type Department Care Team (Late st Contact Info) Description 11/14/2020 Lab Requisition [facility] [address] [place] [address] Tomy Cleary MD [address] [place] [address] Encounter for screening for other viral diseases Social History Tobacco Use Types Packs/Day Years Used Date Smoking Tobacco: Never Smokeless Tobacco: Never Sex and Gender Information Value Date Recorded Sex Assigned at Male 07/02/2025 10:46 AM EST Legal Sex Male 3:13 PM EDT Gender Identity Not on file Sexual Orientation Not on file documented as of this encounter Plan of Treatment Upcoming Encounters Date Type Department Care Team (Late st Contact Info) Description 07/15/2025 2:00 PM EST Telehealth [facility] [address] [place], [place] [id number] Jonathan Jimenez MD PhD [address] [place], [place] [id number] documented as of this encounter Procedures * Due to [place] state law, this organization might not be sharing negative HIV tests. Procedure Name Priority Date/Time Associated Diagnosis Comments COVID-19 PCR, SYMPTOMATIC Routine 11/14/2020 5:30 AM EDT Encounter for screening for other viral diseases documented in this encounter Results * Due to [place] state law, this organization might not be sharing negative HIV tests. * COVID-19 PCR, TIMBER SPOTTER/OP/Saliva (11/14/2020 5:30 AM EDT) SARS CoV 2 RNA, RT PCR Not Detected Not Detected THERMOFIS HER QUANT STUDIO 11/14/2020 6:07 PM EDT [facility] Comment:A Not Detected (Nega tive) test result is indicative of the absence of SARS-CoV-2 RNA at the level of LoD (Limit of Detection). A negative result does not rule out the possibility of COVID-19 and should not be used as the sole basis for treatment or patient management decisions. If COVID-19 is still suspected, based on exposure history together with other clinical findings, re-testing should be considered. Swab Specimen from nasopharyngeal structure / Unknown 11/14/2020 5:30 AM EDT 11/14/2020 11:50 AM EDT Narrative [facility] - 11/14/2020 6:07 PM EDT These tests were developed, validated, and their performance characteristics determined by the Molecular Virology Laboratory at [facility] under CLIA [id number]. They have not been cleared or approved by the U.S. Food and Drug Administration (FDA). FDA Policy for Diagnostic Tests for Coronavirus Disease-2019 during the Public Health Emergency issued October 29, 2019, is followed. us Tomy Cleary MD LAB BODY FLUIDS AND STOOLS ORDER RUSTY Final Result [facility] [address] [place] [address], documented in this encounter Visit Diagnoses Diagnosis Encounter for screening for other viral diseases Mantle cell lymphoma of solid organ excluding spleen- Primary documented in this encounter Additional Health Concerns Infection Onset Date Last Indicated Resolved Time COVID-19 - Suspected infection 11/14/2020 11/14/2020 11/14/2020 6:07 PM EDT Multidrug resistant organisms MRSA 07/23/20212022 CRPA 08/10/2021 08/04/2022 R/O Respiratory Virus Infection 01/21/2022 01/21/2022 10:38 PM EDT R/O Influenza 01/21/2022 01/21/2022 01/21/2022 10: 38 PM EDT COVID-19 - Suspected infection 01/21/2022 01/21/2022 01/21/2022 10:38 PM EDT Multidrug resistant organisms ESBL 01/21/20222021 R/O Respiratory Virus Infection 04/26/2022 04/26/2022 5:28 PM EDT R/O Influenza 04/26/2022 04/26/2022 04/26/2022 5:2 8 PM EDT COVID-19 - Suspected infection 04/26/2022 04/26/2022 04/26/2022 5:28 PM EDT R/O C.diff 04/26/2022 04/26/2022 04/27/2022 8:48 AM EDT COVID-19 - Confirmed infecti on Comment:Patient is now >10 days past date of infection, no current immunosuppression to require retesting, cleared by ID. 06/14/2022 06/14/2022 06/25/2022 3:4 4 PM EST R/O Respiratory Virus Infection 08/04/2022 08/04/2022 11:07 PM EST R/O Influenza 08/04/2022 08/04/2022 08/04/2022 11: 07 PM EST COVID-19 - Suspected infection 08/04/2022 08/04/2022 08/04/2022 11:07 PM EST COVID-19 - Confirmed infection 08/04/2022 08/10/2022 08/15/2022 6:06 PM EST R/O C.diff 08/05/2022 08/05/2022 08/07/2022 7:02 AM EST COVID-19 - Confirmed infecti on Comment:IC text on 08/31: Results of the cycle threshold from the test that was done yesterday indicates that the patient is no longer infectious. The infection can be resolved and precautions can be removed. 08/16/2022 08/30/2022 08/31/2022 3:[address] R/O C.diff 08/28/2022 08/29/2022 08/29/2022 11:1 2 AM EST R/O Respiratory Virus Infection 09/16/2022 09/16/2022 9:42 PM EST R/O Influenza 09/16/2022 09/16/2022 09/16/2022 9:4 2 PM EST COVID-19 - Suspected infection 09/16/2022 09/16/2022 09/16/2022 9:42 PM EST COVID-19 - Confirmed infecti on Comment:Patient Ct 35 09/16/2022 09/16/2022 09/17/2022 3:01 PM EST R/O C.diff 09/22/2022 09/22/2022 09/23/2022 1:23 PM EST documented as of this encounter Care Teams Aerospace Manager Relationship Specialty Start Date End Date Ref, Hasnopcp DO NOT EDIT THIS RECORD VIA PROVIDER ON THE FLY PCP - General Coat Fitter 05/29/25 documented as of this encounter
--- OUTSIDE RECORDS SUMMARY | 2025-07-14 18:28 | XMS_ITS | Encounter Summary ---
Author Organization [facility] Address [address] [place] [address] Care Team Providers Care Commercial Maintenance Technician Name Role Phone Ref, Hasnopcp Primary Care Provider Unavailabl e Encounter Details Date Type Department Care Team (Late st Contact Info) Description 11/09/2020 Lab Requisition [facility] [address] [place] [address] Tomy Cleary MD [address] [place] [address] Social History Tobacco Use Types Packs/Day Years [...] Info) Description 07/15/2025 2:00 PM EST Telehealth [facility] [address] [place], [place] [phone] Jonathan Jimenez MD PhD [address] [place] [address] documented as of this encounter Procedures * Due to [place] state law, this organization might not be sharing negative HIV tests. Procedure Name Priority Date/Time Associated Diagnosis Comments COVID-19 PCR FOR SURVEILLANCE OF ASYMPTOMATIC PATIENT Routine 11/09/2020 10:00 AM EDT documented in this encounter Results * Due to [place] state law, this organization might not be sharing negative HIV tests. * COVID-19 PCR for Surveillance of Asymptomatic Patient, FIELD ASSEMBLY SUPERVISOR/OP/Saliva (11/09/2020 10:00 AM EDT) SARS CoV 2 RNA, RT PCR Not Detected Not Detected THERMOFIS HER QUANT STUDIO 11/09/2020 7:57 PM EDT [facility] Comment:A Not Detected [...] clinical findings, re-testing should be considered. Swab (Naso- and/or Oropharyngeal) 11/09/2020 10:00 AM EDT 11/09/2020 12:58 PM EDT Narrative [facility] - 11/09/2020 7:57 PM EDT These tests were developed, validated, and their performance characteristics determined by the Molecular Virology Laboratory at [facility] under CLIA [id number]. They have not been cleared or approved by the U.S. Food and Drug Administration (FDA). FDA Policy for Diagnostic Tests for Coronavirus Disease-2019 during the Public Health Emergency issued October 29, 2019, is followed. us Tomy Cleary MD LAB BODY FLUIDS AND STOOLS ORDER RUSTY Final Result [facility] [address] [place] [address], documented in this encounter Visit Diagnoses Not on filedocumented in this encounter Additional Health Concerns Infection [...] documented as of this encounter Care Teams Commercial Maintenance Technician Relationship Specialty Start Date End Date Ref, Genesis DO NOT EDIT THIS RECORD VIA PROVIDER ON THE FLY PCP - General Apartment Maintenance Worker 05/29/25 documented as of this encounter
--- OUTSIDE RECORDS SUMMARY | 2025-07-14 18:28 | XMS_ITS ---
Author Organization [facility] Address [address] [place] [address] Care Team Providers Care Beater Boss Name Role Phone Ref, Hasnopcp Primary Care Provider Unavailabl e Active Problems Problem Noted Date Diagnosed Date Normocytic anemia 04/26/2022 Assessment & Plan (08/21/2022 3:14 PM EST): Suspect iso poor nutritional status. Baseline Hgb between 9-11. Hgb on admit 10.4.BM on 04/26 nonbloody. Home: Ferrous sulfate by G-tube once daily, B12 1000mcg injections q Tuesday - Continue home iron - Continue home B12 - Monitor CBC Assessment & Plan (08/20/2022 6:15 PM EST): Suspect iso poor nutritional status. Baseline Hgb between 9-11. Hgb on admit 10.4.BM on 04/26 nonbloody. Home: Ferrous sulfate by G-tube once daily, B12 1000mcg injections q Tuesday - Continue home iron - Continue home B12 - Monitor CBC Assessment & Plan (08/19/2022 7:06 PM EST): Suspect iso poor nutritional status. Baseline Hgb between 9-11. Hgb on admit 10.4.BM on 04/26 nonbloody. Home: Ferrous sulfate by G-tube once daily, B12 1000mcg injections q Tuesday - Continue home iron - Continue home B12 - Monitor CBC Assessment & Plan (08/04/2022 3:08 PM EST): Suspect iso poor nutritional status. Baseline Hgb between 9-11. Hgb on admit 10.4.BM on 04/26 nonbloody. Home: Ferrous sulfate by G-tube once daily, B12 1000mcg injections q Tuesday - Continue home iron - Continue home B12 - Monitor CBC Assessment & Plan (07/15/2022 9:48 PM EST): Suspect iso poor nutritional status. Baseline Hgb between 9-11. Hgb on admit 10.4.BM on 04/26 nonbloody. Home: Ferrous sulfate by G-tube once daily, B12 1000mcg injections q Tuesday -Continue home iron -- continue home B12 - trend CBC Assessment & Plan (07/15/2022 12:57 AM EST): Suspect iso poor nutritional status. Baseline Hgb between 9-11. Hgb on admit 10.4.BM on 04/26 nonbloody. Home: Ferrous sulfate by G-tube once daily, B12 1000mcg injections q Tuesday -Continue home iron -- continue home B12 - trend CBC Assessment & Plan (07/11/2022 11:28 PM EST): Suspect iso poor nutritional status. Baseline Hgb between 9-11. Hgb on admit 10.4.BM on 04/26 nonbloody. Home: Ferrous sulfate to 20 mg by G-tube once daily, B12 1000mcg injections q Tuesday -Continue home iron -- continue home B12 - trend CBC Tracheostomy in place 04/26/2022 Assessment & Plan (08/21/2022 3:15 PM EST): Tracheostomy done on 08/25/21 for chronic respiratory failure and failure to wean from mechanical ventilation. Size 8 single lumen cuffed Bivona TTS. Patient admitted to ICU on 01/21-01/31 for respiratory failure with left lower lobe effusion versus opacities. Required significant suctioning, lavages, mechanical ventilation with high requirements due to copious secretions. Received vest therapy, hypertonic saline nebs, albuterol nebs. Discharged to facility with plan to wean to trach mask. Per facility, patient has been trach masking 07/03. - Continue trach mask - Continue frequent saline and deep suction. - Passy Kaufman Valve trial on 06/15. Valve was tried again on 06/18 after saline suction. Patient is not currently attempting to verbalize - see acute hypoxic respiratory failure problem - Trach replacement 07/06 - On 07/13 evening, patient had a strong cough and reportedly coughed out his tracheostomy tube. He was not in acute distress while tube was out. Oxygen saturation was maintained in the 90s. Patient seen by Respiratory Therapist and Medicine Attending. Tracheostomy tube was replaced at bedside urgently without difficulty. Tube confirmed to be in trach lumen as he had equal breath sounds bilaterally although coarse, RN was able to deep suction with the catheter without resistance. Chest x-ray was also obtained and showed tracheostomy in place. Tracheostomy tube was secured in place Assessment & Plan (08/20/2022 6:16 PM EST): Tracheostomy done on 08/25/21 for chronic respiratory failure and failure to wean from mechanical ventilation. Size 8 single lumen cuffed Bivona TTS. Patient admitted to ICU on 01/21-01/31 for respiratory failure with left lower lobe effusion versus opacities. Required significant suctioning, lavages, mechanical ventilation with high requirements due to copious secretions. Received vest therapy, hypertonic saline nebs, albuterol nebs. Discharged to facility with plan to wean to trach mask. Per facility, patient has been trach masking 07/03. - Continue trach mask - Continue frequent saline and deep suction. - Passy Debbi Valve trial on 06/15. Valve was tried again on 06/18 after saline suction. Patient is not currently attempting to verbalize - see acute hypoxic respiratory failure problem - Trach replacement 07/06 - On 07/13 evening, patient had a strong cough and reportedly coughed out his tracheostomy tube. He was not in acute distress while tube was out. Oxygen saturation was maintained in the 90s. Patient seen by Respiratory Therapist and Medicine Attending. Tracheostomy tube was replaced at bedside urgently without difficulty. Tube confirmed to be in trach lumen as he had equal breath sounds bilaterally although coarse, RN was able to deep suction with the catheter without resistance. Chest x-ray was also obtained and showed tracheostomy in place. Tracheostomy tube was secured in place Assessment & Plan (08/19/2022 7:07 PM EST): Tracheostomy done on 08/25/21 for chronic respiratory failure and failure to wean from mechanical ventilation. Size 8 single lumen cuffed Bivona TTS. Patient admitted to ICU on 01/21-01/31 for respiratory failure with left lower lobe effusion versus opacities. Required significant suctioning, lavages, mechanical ventilation with high requirements due to copious secretions. Received vest therapy, hypertonic saline nebs, albuterol nebs. Discharged to facility with plan to wean to trach mask. Per facility, patient has been trach masking 07/03. - Continue trach mask - Continue frequent saline and deep suction. - Passy Debbi Valve trial on 06/15. Valve was tried again on 06/18 after saline suction. Patient is not currently attempting to verbalize - see acute hypoxic respiratory failure problem - Trach replacement 07/06 - On 07/13 evening, patient had a strong cough and reportedly coughed out his tracheostomy tube. He was not in acute distress while tube was out. Oxygen saturation was maintained in the 90s. Patient seen by Respiratory Therapist and Medicine Attending. Tracheostomy tube was replaced at bedside urgently without difficulty. Tube confirmed to be in trach lumen as he had equal breath sounds bilaterally although coarse, RN was able to deep suction with the catheter without resistance. Chest x-ray was also obtained and showed tracheostomy in place. Tracheostomy tube was secured in place Assessment & Plan (08/14/2022 1:54 PM EST): Tracheostomy done on 08/25/21 for chronic respiratory failure and failure to wean from mechanical ventilation. Size 8 single lumen cuffed Bivona TTS. Patient admitted to ICU on 01/21-01/31 for respiratory failure with left lower lobe effusion versus opacities. Required significant suctioning, lavages, mechanical ventilation with high requirements due to copious secretions. Received vest therapy, hypertonic saline nebs, albuterol nebs. Discharged to facility with plan to wean to trach mask. Per facility, patient has been trach masking 07/03. - Continue trach mask - Continue frequent saline and deep suction. - Passy Kaufman Valve trial on 06/15. Valve was tried again on 06/18 after saline suction. Patient is not currently attempting to verbalize - see acute hypoxic respiratory failure problem - Trach replacement 07/06 - On 07/13 evening, patient had a strong cough and reportedly coughed out his tracheostomy tube. He was not in acute distress while tube was out. Oxygen saturation was maintained in the 90s. Patient seen by Respiratory Therapist and Medicine Attending. Tracheostomy tube was replaced at bedside urgently without difficulty. Tube confirmed to be in trach lumen as he had equal breath sounds bilaterally although coarse, RN was able to deep suction with the catheter without resistance. Chest x-ray was also obtained and showed tracheostomy in place. Tracheostomy tube was secured in place Assessment & Plan (08/12/2022 9:23 PM EST): Tracheostomy done on 08/25/21 for chronic respiratory failure and failure to wean from mechanical ventilation. Size 8 single lumen cuffed Bivona TTS. Patient admitted to ICU on 01/21-01/31 for respiratory failure with left lower lobe effusion versus opacities. Required significant suctioning, lavages, mechanical ventilation with high requirements due to copious secretions. Received vest therapy, hypertonic saline nebs, albuterol nebs. Discharged to facility with plan to wean to trach mask. Per facility, patient has been trach masking 07/03. - Continue trach mask - Continue frequent saline and deep suction. - Passy Kaufman Valve trial on 06/15. Valve was tried again on 06/18 after saline suction. Patient is not currently attempting to verbalize - see acute hypoxic respiratory failure problem - Trach replacement 07/06 - On 07/13 evening, patient had a strong cough and reportedly coughed out his tracheostomy tube. He was not in acute distress while tube was out. Oxygen saturation was maintained in the 90s. Patient seen by Respiratory Therapist and Medicine Attending. Tracheostomy tube was replaced at bedside urgently without difficulty. Tube confirmed to be in trach lumen as he had equal breath sounds bilaterally although coarse, RN was able to deep suction with the catheter without resistance. Chest x-ray was also obtained and showed tracheostomy in place. Tracheostomy tube was secured in place. Assessment & Plan (07/15/2022 9:55 PM EST): Tracheostomy done on 08/25/21 for chronic respiratory failure and failure to wean from mechanical ventilation. Size 8 single lumen cuffed Bivona TTS. Patient admitted to ICU on 01/21-01/31 for respiratory failure with left lower lobe effusion versus opacities. Required significant suctioning, lavages, mechanical ventilation with high requirements due to copious secretions. Received vest therapy, hypertonic saline nebs, albuterol nebs. Discharged to facility with plan to wean to trach mask. Per facility, patient has been trach masking 07/03. -Continue trach mask -Continue frequent saline and deep suction. - Passy Kaufman Valve trial on 06/15. Valve was tried again on 06/18 after saline suction. Patient is not currently attempting to verbalize - see acute hypoxic respiratory failure problem - Trach replacement 07/06 -On 07/13 evening, patient had a strong cough and reportedly coughed out his tracheostomy tube. He was not in acute distress while tube was out. Oxygen saturation was maintained in the 90s. Patient seen by Respiratory Therapist and Medicine Attending. Tracheostomy tube was replaced at bedside urgently without difficulty. Tube confirmed to be in trach lumen as he had equal breath sounds bilaterally although coarse, RN was able to deep suction with the catheter without resistance. Chest x-ray was also obtained and showed tracheostomy in place. Tracheostomy tube was secured in place. Assessment & Plan (07/15/2022 12:53 AM EST): Tracheostomy done on 08/25/21 for chronic respiratory failure and failure to wean from mechanical ventilation. Size 8 single lumen cuffed Bivona TTS. Patient admitted to ICU on 01/21-01/31 for respiratory failure with left lower lobe effusion versus opacities. Required significant suctioning, lavages, mechanical ventilation with high requirements due to copious secretions. Received vest therapy, hypertonic saline nebs, albuterol nebs. Discharged to facility with plan to wean to trach mask. Per facility, patient has been trach masking 07/03. -Continue trach mask -Continue frequent saline and deep suction. - Passy Debbi Valve trial on 06/15. Valve was tried again on 06/18 after saline suction. Patient is not currently attempting to verbalize - see acute hypoxic respiratory failure problem - Trach replacement 07/06 -On 07/13 evening, patient had a strong cough and reportedly coughed out his tracheostomy tube. He was not in acute distress while tube was out. Oxygen saturation was maintained in the 90s. Patient seen by Respiratory Therapist and Medicine Attending. Tracheostomy tube was replaced at bedside urgently without difficulty. Tube confirmed to be in trach lumen as he had equal breath sounds bilaterally although coarse, RN was able to deep suction with the catheter without resistance. Chest x-ray was also obtained and showed tracheostomy in place. Tracheostomy tube was secured in place. Assessment & Plan (07/13/2022 10:49 PM EST): Tracheostomy done on 08/25/21 for chronic respiratory failure and failure to wean from mechanical ventilation. Size 8 single lumen cuffed Bivona TTS. Patient admitted to ICU on 01/21-01/31 for respiratory failure with left lower lobe effusion versus opacities. Required significant suctioning, lavages, mechanical ventilation with high requirements due to copious secretions. Received vest therapy, hypertonic saline nebs, albuterol nebs. Discharged to facility with plan to wean to trach mask. Per facility, patient has been trach masking 07/03. -Continue trach mask -Continue frequent saline and deep suction. - Passy Debbi Valve trial on 06/15. Valve was tried again on 06/18 after saline suction. Patient is not currently attempting to verbalize - see acute hypoxic respiratory failure problem - Trach replacement 07/06 -On 07/13 evening, patient had a strong cough and reportedly coughed out his tracheostomy tube. He was not in acute distress while tube was out. Oxygen saturation was maintained in the 90s. Patient seen by Respiratory Therapist and Medicine Attending. Tracheostomy tube was replaced at bedside urgently without difficulty. Tube confirmed to be in trach lumen as he had equal breath sounds bilaterally although coarse, RN was able to deep suction with the catheter without resistance. Chest x-ray was also obtained and showed tracheostomy in place. Tracheostomy tube was secured in place. Altered mental status 08/07/2021 Severe malnutrition 07/29/2021 Assessment & Plan (08/07/2021 9:04 AM EST): Present on admission due to chronic illness. Seen by nutrition for tube feeds. Left arm pain 07/27/2021 Assessment & Plan (08/03/2021 7:44 PM EST): Per woodwind instrument repairer, patient has been unable to move LUE since ~ 5 prior to admission. At first it was thought to be secondary to bad sleeping position and associated neck spasm. X ray on presentation negative for fracture or acute process. Unclear if MSK vs [facility] [employer] [facility] [employer] etiology. Consulted orthopedics for further evaluation. MRI with adhesive capsulitis. 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 Unfortunately, again with acute change in mental status since 07/21 per family but possibly dating back to 07/17 when last seen by family member at bedside, now concerned that neuro exam is far worse. Able to respond to verbal stimuli by tracking with eyes, able to follow commands but response very slowed and incomplete, hyperreflexic. Presenting from oncology clinic with Dr. 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 In the ED, VS reassuring, BMP w/o metabolic derangements, CBC w/ pancytopenia and lymphopenia. CSF flow cytometry, viral panel and gram studies all normal. Neurology consulted, EEG was negative. Initial head CT negative for new bleeding or masses. 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 Rapid response and code stroke were called on 07/30 due to unresponsiveness and concern for stroke/bleed/epilepsy. VS and ABG stable during event. Patient regained consciousness and was awake and alert, although noticeably decreased mental status from baseline. CT head and CT angiogram head and neck negative for bleeding or new acute intracranial process. Repeat EEG w/o evidence of epileptic activity. Neurology signed off. Per pharmacy recommendations, no need to check for Keppra levels given that he has been receiving doses regularly here. Continue IV Keppra 1.25 mg BID Management as per [facility] Toxoplasmosis section Oropharyngeal dysphagia 07/23/2021 Assessment & Plan (08/07/2021 1:21 PM EST): Previously found to have oropharyngeal dysphagia secondary to his encephalopathy dating back to Sep 2020, PEG placed on 10/24 and has since been in place and getting tube feeds at [facility]. Of note, recent visit to [facility] ED for aspiration event believed to be due to high residuals. Tube feeds have been continued w/ hold for GRV > 500 mL to avoid aspiration pneumonia. Appreciate VENDING ATTENDANT evaluation to assess for PO med tolerance Continue tube feeds as per nutrition recommendations Management as per Aspiration Pneumonia section Acute hyperactive delirium due to another medica l condition 12/10/2020 Assessment & Plan (12/10/2020 9:13 PM EDT): He was noted to be pulling at lines and tubes in 10/2020 during the hospitalization, likely from delirium in addition to his encephalopathy secondary to his [facility] infection. A low-dose of quetiapine was trialed which had some effect. Psychiatry was consulted for optimal management and recommended trazodone. - Continue trazodone 25 mg twice daily and 50 mg nightly Bacteremia 12/10/2020 Assessment & Plan (12/10/2020 10:24 PM EDT): Patient went to [facility] ED this morning with fever, found to have +Bcx gram negative rods. Febrile 101.5F, HR 110, BP 105/50. He was started on 2g CTX with IV bolus. It does appear he was given Zosyn 4.5mg x1 prior to transfer. 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 On admit, abdominal exam benign. Per [facility] documentation, was on osmolite 1.5 @ 60 cc/hr cont at [facility]. 2 Packs ProSource daily, vitamin C 250mg/d Home: Omeprazole 20 mg every 12 hours, Maalox prn Bowel regimen: MiraLAX once daily prn, senna nightly prn, Fleet enema prn, Dulcolax suppository as needed - Continue tube feeds - Nutrition following - Hold home Maalox - Esomeprazole twice daily - Unfortunately, diarrhea continues at this time. Has rectal tube. Infectious work up negative Assessment & Plan (08/20/2022 6:14 PM EST): Status post PEG placement 10/2020 for longstanding history of dysphagia. On admit, abdominal exam benign. Per [facility] documentation, was on osmolite 1.5 @ 60 cc/hr cont at [facility]. 2 Packs ProSource daily, vitamin C 250mg/d Home: Omeprazole 20 mg every 12 hours, Maalox prn Bowel regimen: MiraLAX once daily prn, senna nightly prn, Fleet enema prn, Dulcolax suppository as needed - Continue tube feeds - Nutrition following - Hold home Maalox - Esomeprazole twice daily - Unfortunately, diarrhea continues as well Assessment & Plan (08/19/2022 7:05 PM EST): Status post PEG placement 10/2020 for longstanding history of dysphagia. On admit, abdominal exam benign. Per [facility] documentation, was on osmolite 1.5 @ 60 cc/hr cont at [facility]. 2 Packs ProSource daily, vitamin C 250mg/d Home: Omeprazole 20 mg every 12 hours, Maalox prn Bowel regimen: MiraLAX once daily prn, senna nightly prn, Fleet enema prn, Dulcolax suppository as needed - Continue tube feeds - Nutrition following - Hold home Maalox - Esomeprazole twice daily - Continue Dulcolax as needed Assessment & Plan (08/14/2022 1:53 PM EST): Status post PEG placement 10/2020 for longstanding history of dysphagia. On admit, abdominal exam benign. Per [facility] documentation, was on osmolite 1.5 @ 60 cc/hr cont at [facility]. 2 Packs ProSource daily, vitamin C 250mg/d Home: Omeprazole 20 mg every 12 hours, Maalox prn Bowel regimen: MiraLAX once daily prn, senna nightly prn, Fleet enema prn, Dulcolax suppository as needed - Continue tube feeds - Nutrition following - Hold home Maalox - Esomeprazole twice daily - Continue Dulcolax as needed Assessment & Plan (08/13/2022 4:58 PM EST): Status post PEG placement 10/2020 for longstanding history of dysphagia. On admit, abdominal exam benign. Per [facility] documentation, was on osmolite 1.5 @ 60 cc/hr cont at [facility]. 2 Packs ProSource daily, vitamin C 250mg/d Home: Omeprazole 20 mg every 12 hours, Maalox prn Bowel regimen: MiraLAX once daily prn, senna nightly prn, Fleet enema prn, Dulcolax suppository as needed - Continue tube feeds - Nutrition following - Hold home Maalox - Esomeprazole twice daily - Continue Dulcolax as needed. Assessment & Plan (08/12/2022 9:19 PM EST): Status post PEG placement 10/2020 for longstanding history of dysphagia. On admit, abdominal exam benign. Per [facility] documentation, was on osmolite 1.5 @ 60 cc/hr cont at [facility]. 2 Packs ProSource daily, vitamin C 250mg/d Home: Omeprazole 20 mg every 12 hours, Maalox prn Bowel regimen: MiraLAX once daily prn, senna nightly prn, Fleet enema prn, Dulcolax suppository as needed - Continue tube feeds - Nutrition following - Hold home Maalox - Esomeprazole twice daily - Continue Dulcolax as needed Assessment & Plan (07/15/2022 9:53 PM EST): Status post PEG placement 10/2020 for longstanding history of dysphagia. On admit, abdominal exam benign. Per [facility] documentation, was on osmolite 1.5 @ 60 cc/hr cont at [facility]. 2 Packs ProSource daily, vitamin C 250mg/d Home: Omeprazole 20 mg every 12 hours, Maalox prn Bowel regimen: MiraLAX once daily prn, senna nightly prn, Fleet enema prn, Dulcolax suppository as needed -- Nutrition following -- NPO with tube feeding - Hold home Maalox - esomeprazole twice daily - Continue Dulcolax as needed Assessment & Plan (07/15/2022 12:55 AM EST): Status post PEG placement 10/2020 for longstanding history of dysphagia. On admit, abdominal exam benign. Per [facility] documentation, was on osmolite 1.5 @ 60 cc/hr cont at [facility]. 2 Packs ProSource daily, vitamin C 250mg/d Home: Omeprazole 20 mg every 12 hours, Maalox as needed Bowel regimen: MiraLAX once daily prn, senna nightly prn, Fleet enema prn, Dulcolax suppository as needed -- Nutrition following -- NPO with tube feeding - Hold home Maalox - esomeprazole twice daily - Continue Dulcolax as needed Assessment & Plan (07/11/2022 11:27 PM EST): Status post PEG placement 10/2020 for longstanding history of dysphagia. On admit, abdominal exam benign. Per [facility] documentation, was on osmolite 1.5 @ 60 cc/hr cont at [facility]. 2 Packs ProSource daily, vitamin C 250mg/d Home: Omeprazole 20 mg every 12 hours, Maalox as needed Bowel regimen: MiraLAX once daily prn, senna nightly prn, Fleet enema prn, Dulcolax suppository as needed -- Nutrition following -- NPO with tube feeding - Hold home Maalox - esomeprazole twice daily - Continue Dulcolax as needed Urine retention 11/07/2020 Assessment & Plan (09/23/2022 5:28 PM EST): RESOLVED Patient had an episode of urine retention of 700 ml on 06/14. Straight cath but repeat ultrasound still had 400 retention. Rubio was placed on 06/15. Assessment & Plan (08/19/2022 7:07 PM EST): Patient had an episode of urine retention of 700 ml on 06/14. Straight cath but repeat ultrasound still had 400 retention. Rubio was placed on 06/15. - Rubio d/c 06/21 - Patient urinating spontaneously (external urinary catheter), continue to monitor for urinary retention Assessment & Plan (08/14/2022 1:53 PM EST): Patient had an episode of urine retention of 700 ml on 06/14. Straight cath but repeat ultrasound still had 400 retention. Rubio was placed on 06/15. - Rubio d/c 06/21 - Patient urinating spontaneously (external urinary catheter), continue to monitor for urinary retention Assessment & Plan (08/13/2022 4:58 PM EST): Patient had an episode of urine retention of 700 ml on 06/14. Straight cath but repeat ultrasound still had 400 retention. Rubio was placed on 06/15. - Rubio d/c 06/21 - Patient urinating spontaneously (external urinary catheter), continue to monitor for urinary retention. Assessment & Plan (08/12/2022 9:20 PM EST): Patient had an episode of urine retention of 700 ml on 06/14. Straight cath but repeat ultrasound still had 400 retention. Rubio was placed on 06/15. - Rubio d/c 06/21 - Patient urinating spontaneously (external urinary catheter), continue to monitor for urinary retention Assessment & Plan (07/15/2022 9:55 PM EST): Patient had an episode of urine retention of 700 ml on 06/14. Patient got straight cath but repeat ultrasound still had 400 retention. Rubio was placed on 06/15. - Rubio d/c 06/21 -Patient urinating spontaneously, continue to monitor for urinary retention Assessment & Plan (07/15/2022 12:53 AM EST): Patient had an episode of urine retention of 700 ml on 06/14. Patient got straight cath but repeat ultrasound still had 400 retention. Rubio was placed on 06/15. - Rubio d/c 06/21 -Patient urinating spontaneously, continue to monitor for urinary retention Assessment & Plan (07/11/2022 11:23 PM EST): Patient had an episode of urine retention of 700 ml on 06/14. Patient got straight cath but repeat ultrasound still had 400 retention. Rubio was placed on 06/15. - Rubio d/c 06/21 -Patient urinating spontaneously, continue to monitor for urinary retention Diarrhea 10/07/2020 Assessment & Plan (09/23/2022 5:28 PM EST): Multiple loose liquid stools in ED. Nonbloody. Pt has history of extensive antibiotic use including clindamycin for [facility] toxo. WBC elevated. No abdominal tenderness on exam. Suspect likely liquid stools due to tube feeds but could not ignore possibility of C diff given abx use, WBC, and coming from facility. C Diff panel was negative on 04/26/22 and 08/05/22, again 08/29/2021. 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 - C. Diff negative as of -immodium PRN - Banatrol has not been helping and has been tried for months, so will discontinued as can cause occlusion of the PEG. - Replete electrolytes prn Assessment & Plan (08/20/2022 6:14 PM EST): Multiple loose liquid stools in ED. Nonbloody. Pt has history of extensive antibiotic use including clindamycin for [facility] toxo. WBC elevated. No abdominal tenderness on exam. Suspect likely liquid stools due to tube feeds but could not ignore possibility of C diff given abx use, WBC, and coming from facility. C Diff panel was negative. -rectal tube in place for months -> will continue to try to remove if able given risk of infection and ulceration, however there is also concern for infection and skin breakdown with incotinence -Continue Banatrol to help bulk stools with goal to remove rectal tube. Assessment & Plan (08/19/2022 7:05 PM EST): Multiple loose liquid stools in ED. Nonbloody. Pt has history of extensive antibiotic use including clindamycin for [facility] toxo. WBC elevated. No abdominal tenderness on exam. Suspect likely liquid stools due to tube feeds but could not ignore possibility of C diff given abx use, WBC, and coming from facility. C Diff panel was negative. -rectal tube in place for months -> will continue to try to remove if able given risk of infection and ulceration, however there is also concern for infection and skin breakdown with incotinence -Continue Banatrol to help bulk stools with goal to remove rectal tube. Assessment & Plan (08/14/2022 1:53 PM EST): Multiple loose liquid stools in ED. Nonbloody. Pt has history of extensive antibiotic use including clindamycin for [facility] toxo. WBC elevated. No abdominal tenderness on exam. Suspect likely liquid stools due to tube feeds but could not ignore possibility of C diff given abx use, WBC, and coming from facility. C Diff panel was negative. -rectal tube in place for months -> will continue to try to remove if able given risk of infection and ulceration, however there is also concern for infection and skin breakdown with incotinence -Continue Banatrol to help bulk stools with goal to remove rectal tube. Assessment & Plan (08/13/2022 4:57 PM EST): Multiple loose liquid stools in ED. Nonbloody. Pt has history of extensive antibiotic use including clindamycin for [facility] toxo. WBC elevated. No abdominal tenderness on exam. Suspect likely liquid stools due to tube feeds but could not ignore possibility of C diff given abx use, WBC, and coming from facility. C Diff panel was negative. -rectal tube in place for months -> will continue to try to remove if able given risk of infection and ulceration, however there is also concern for infection and skin breakdown with incotinence -Continue Banatrol to help bulk stools with goal to remove rectal tube Assessment & Plan (08/12/2022 9:19 PM EST): Multiple loose liquid stools in ED. Nonbloody. Pt has history of extensive antibiotic use including clindamycin for [facility] toxo. WBC elevated. No abdominal tenderness on exam. Suspect likely liquid stools due to tube feeds but could not ignore possibility of C diff given abx use, WBC, and coming from facility. C Diff panel was negative. -rectal tube in place for months -> will continue to try to remove if able given risk of infection and ulceration, however there is also concern for infection and skin breakdown with incotinence -Continue Banatrol to help bulk stools with goal to remove rectal tube Assessment & Plan (07/15/2022 9:49 PM EST): Multiple loose liquid stools in ED. Nonbloody. Pt has history of extensive antibiotic use including clindamycin for [facility] toxo. WBC elevated. No abdominal tenderness on exam. Suspect likely liquid stools due to tube feeds but cannot ignore possibility of C diff given abx use, WBC, and coming from facility. C Diff panel was negative. -rectal tube placed -Continue banatrol to help bulk stools with goal to remove rectal tube Assessment & Plan (07/15/2022 12:56 AM EST): Multiple loose liquid stools in ED. Nonbloody. Pt has history of extensive antibiotic use including clindamycin for [facility] toxo. WBC elevated. No abdominal tenderness on exam. Suspect likely liquid stools due to tube feeds but cannot ignore possibility of C diff given abx use, WBC, and coming from facility. C Diff panel was negative. -rectal tube placed -Continue banatrol to help bulk stools and goal to remove rectal tube Assessment & Plan (07/11/2022 11:27 PM EST): Multiple loose liquid stools in ED. Nonbloody. Pt has history of extensive antibiotic use including clindamycin for [facility] toxo. WBC elevated. No abdominal tenderness on exam. Suspect likely liquid stools due to tube feeds but cannot ignore possibility of C diff given abx use, WBC, and coming from facility. C Diff panel was negative. -rectal tube placed -Continue banatrol to help bulk stools and goal to remove rectal tube Assessment & Plan (10/17/2020 1:17 PM EST): Patient developed 5 episodes of liquid-loose stool on 10/06 with associated abdominal distention. Continuing to have 5 loose stools on 10/09. C. Diff on 10/07 negative. 10/07 KUB shows NGT in distal duodenum and air in bowel. NGT respositioned and confirmed with chest XR on 10/08. Given scheduled reglan transiently with improvement. NGT replaced /. Loose stools resumed 10/15 with 5 episodes liquid stool, notably 2 days after starting clindamycin for toxoplasmosis. 10/16 3 loose stools. - C. Diff negative on 10/16 Acute on chronic respiratory failure with hypoxi a 10/05/2020 Assessment & Plan (09/21/2022 4:16 PM EST): Patient meeting criteria for acute on chronic hypoxic respiratory failure due to SPO2 sat 80% via EMS, resolved with bag masking and expelling of multiple secretions. On trach mask 07/03 at facility per report. Suspect AoCHRF is in setting of mucous plugging iso PNA. Patient was admitted to ICU for septic shock 09/16 VAP. Patient was briefly transferred to the floor on 05/12, however had an additional episode the following day of hypoxia with evidence of left lower lobe collapse. Symptoms significantly improved on presentation back to the ICU following suctioning. s/p IV Zosyn and Vancomycin (06/30 - 07/05) Patient again with sepsis on 08/04, ordered CXR, blood cultures, sputum cultures, lactic acid, U/A, 1L IV fluid and Vancomycin/Zosyn. Found to be COVID + -> management per COVID section. Again febrile on 09/16, CXR showing pneumonia, repeated CT and not a huge change. D/w ID stopped Abx after 2 days unless further fevers. 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 On trach mask 07/03 at facility per report. Suspect AoCHRF is in setting of mucous plugging iso PNA. Patient was admitted to ICU for septic shock 2/2 VAP. Patient was briefly transferred to the floor on 05/12, however had an additional episode the following day of hypoxia with evidence of left lower lobe collapse. Symptoms significantly improved on presentation back to the ICU following suctioning. - See 'Severe sepsis' section - Glycopyrrolate 3 times daily through the G-tube, use prn if needed - Continue chest PT with mechanical vest twice daily - Continue cough electrician station assistant, may need to discontinue based on RT recommendation - s/p IV Zosyn and Vancomycin (06/30 - 07/05) - Patient again with sepsis on 08/04, ordered CXR, blood cultures, sputum cultures, lactic acid, U/A, 1L IV fluid and Vancomycin/Zosyn. Found to be COVID + -> management per COVID section - ID consult given history of MDROs - oxygen levels remain stable Assessment & Plan (08/19/2022 7:05 PM EST): Patient meeting criteria for acute on chronic hypoxic respiratory failure due to SPO2 sat 80% via EMS, resolved with bag masking and expelling of multiple secretions. On trach mask 07/03 at facility per report. Suspect AoCHRF is in setting of mucous plugging iso PNA. Patient was admitted to ICU for septic shock 2/2 VAP. Patient was briefly transferred to the floor on 05/12, however had an additional episode the following day of hypoxia with evidence of left lower lobe collapse. Symptoms significantly improved on presentation back to the ICU following suctioning. 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 Found to be COVID + -> management per COVID section - ID consult given history of MDROs - oxygen levels remain stable Assessment & Plan (08/14/2022 1:52 PM EST): Patient meeting criteria for acute on chronic hypoxic respiratory failure due to SPO2 sat 80% via EMS, resolved with bag masking and expelling of multiple secretions. On trach mask 07/03 at facility per report. Suspect AoCHRF is in setting of mucous plugging iso PNA. Patient was admitted to ICU for septic shock 2/2 VAP. Patient was briefly transferred to the floor on 05/12, however had an additional episode the following day of hypoxia with evidence of left lower lobe collapse. Symptoms significantly improved on presentation back to the ICU following suctioning. 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 Found to be COVID + -> management per COVID section - ID consult given history of MDROs - oxygen levels remain stable Assessment & Plan (08/13/2022 4:56 PM EST): Patient meeting criteria for acute on chronic hypoxic respiratory failure due to SPO2 sat 80% via EMS, resolved with bag masking and expelling of multiple secretions. On trach mask 07/03 at facility per report. Suspect AoCHRF is in setting of mucous plugging iso PNA. Patient was admitted to ICU for septic shock 2/2 VAP. Patient was briefly transferred to the floor on 05/12, however had an additional episode the following day of hypoxia with evidence of left lower lobe collapse. Symptoms significantly improved on presentation back to the ICU following suctioning. 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 Found to be COVID + - ID consult given history of MDROs - oxygen levels remain stable Assessment & Plan (08/12/2022 9:17 PM EST): Patient meeting criteria for acute on chronic hypoxic respiratory failure due to SPO2 sat 80% via EMS, resolved with bag masking and expelling of multiple secretions. On trach mask 07/03 at facility per report. Suspect AoCHRF is in setting of mucous plugging iso PNA. Patient was admitted to ICU for septic shock 2/2 VAP. Patient was briefly transferred to the floor on 05/12, however had an additional episode the following day of hypoxia with evidence of left lower lobe collapse. Symptoms significantly improved on presentation back to the ICU following suctioning. 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 Found to be COVID + - ID consult given history of MDROs - oxygen levels remain stable Assessment & Plan (07/15/2022 9:47 PM EST): Patient meeting criteria for acute on chronic hypoxic respiratory failure due to SPO2 sat 80% via EMS, resolved with bag masking and expelling of multiple secretions. On trach mask 07/03 at facility per report. Suspect AoCHRF is in setting of mucous plugging iso PNA. Patient was admitted to ICU for septic shock 2/2 VAP. Patient was briefly transferred to the floor on 05/12, however had an additional episode the following day of hypoxia with evidence of left lower lobe collapse. Symptoms significantly improved on presentation back to the ICU following suctioning. - See 'Severe sepsis' section - Glycopyrrolate 3 times daily through the G-tube - Hypertonic saline nebs 3 times daily - Continue chest PT with mechanical vest twice daily _ Continue cough electrician station assistant. _ s/p IV Zosyn and Vanco (06/30 - 07/05). -- Ongoing vigilance for infection recurrence Assessment & Plan (07/15/2022 12:58 AM EST): Patient meeting criteria for acute on chronic hypoxic respiratory failure due to SPO2 sat 80% via EMS, resolved with bag masking and expelling of multiple secretions. On trach mask 07/03 at facility per report. Suspect AoCHRF is in setting of mucous plugging iso PNA. Patient was admitted to ICU for septic shock 2/2 VAP. Patient was briefly transferred to the floor on 05/12, however had an additional episode the following day of hypoxia with evidence of left lower lobe collapse. Symptoms significantly improved on presentation back to the ICU following suctioning. - See 'Severe sepsis' section - Glycopyrrolate 3 times daily through the G-tube - Hypertonic saline nebs 3 times daily - Continue chest PT with mechanical vest twice daily _ Continue cough electrician station assistant. _ s/p IV Zosyn and Vanco (06/30 - 07/05). -- Ongoing vigilance for infection recurrence Assessment & Plan (07/11/2022 11:28 PM EST): Patient meeting criteria for acute on chronic hypoxic respiratory failure due to SPO2 sat 80% via EMS, resolved with bag masking and expelling of multiple secretions. On trach mask 07/03 at facility per report. Suspect AoCHRF is in setting of mucous plugging iso PNA. Patient was admitted to ICU for septic shock 2/2 VAP. Patient was briefly transferred to the floor on 05/12, however had an additional episode the following day of hypoxia with evidence of left lower lobe collapse. Symptoms significantly improved on presentation back to the ICU following suctioning. - See 'Severe sepsis' section - Glycopyrrolate 3 times daily through the G-tube - Hypertonic saline nebs 3 times daily - Continue chest PT with mechanical vest twice daily _ Continue cough electrician station assistant. _ s/p IV Zosyn and Vanco (06/30 - 07/05). -- Ongoing vigilance for infection recurrence Assessment & Plan (08/07/2021 9:03 AM EST): Patient w/ acute desaturation multiple times during admission and progressive new oxygen requirements. Concerns for possible mucus plugging given weak cough or possible aspiration pneumonia from vomiting tube feeds. Multiple CXR overnight have been negative for consolidations or patchy opacities. Chest CT of 08/03 remarkable for airway secretions and possible aspiration pneuma vs infection in bilateral lower lobes. CXR of 08/04 concerning for new LLL infiltrate vs atelectasis from mucus plugging. Was evaluated by pulmonology for concerns of poor airway management who recommended bronchoscopy for washout and continue with aggressive supportive care as below to prevent further accumulation. Bronchoscopy with bronchial washout was performed on 08/06. Patient needs aggressive pulmonary toilet to prevent further recurrence Chest vibration vest BID Deep oral suctioning 4 times a day Duonebs prn Guaifenesin prn Continue supplemental O2 for goal sat > 92% Abx management as per aspiration pneumonia section Continuous pulse ox Continue aspiration precautions Assessment & Plan (10/16/2020 1:01 PM EST): New variable O2 requirement since ICU stay. Likely 2/ small chronic aspiration in the setting of AMS + atelectasis + mucus plugging. CXR 10/05 am neg. 10/07 emesis with concern for possible aspiration. Development of cough without expectoration 10/15, resolved 10/16. - pulmonary toileting and IS as able, mental status has been a barrier - frequent suctioning, RT to try cough inexsufflation - aspiration precautions, HOB >45 degrees - guaifenesin 200 mg q8h - glycopyyrolate 1 mg tablet TID Oropharyngeal dysphagia 10/04/2020 Assessment & Plan (12/10/2020 10:17 PM EDT): He was found to have oropharyngeal dysphagia secondary to his encephalopathy. He failed swallow evaluations on 10/01, 10/10, and 10/14. A nasogastric tube was inserted the day after admission so he could receive enteral nutrition. Trauma surgery was consulted for PEG placement as recommended by VENDING ATTENDANT. PEG was placed on 10/24. - Tube feeds Jevity 1.5, start 15cc, increase 10cc q2h, goal 55cc/hr - Continue aspiration precautions including head of bed at > 45 degrees - consider VENDING ATTENDANT evaluation Assessment & Plan (10/17/2020 1:31 PM EST): Failed VENDING ATTENDANT on 10/01, 10/10 and 10/14 in the setting of AMS. - ?PEG with trauma surg when stable - FWF 250 cc q6h - HOB >45%, aspiration precautions - VENDING ATTENDANT recommends PEG, does not expect regain of swallowing in next few weeks At high risk for aspiration 10/04/2020 [facility] toxoplasmosis 10/02/2020 Assessment & Plan (09/23/2022 5:27 PM EST): History of [facility] toxoplasmosis diagnosed 09/2020, recent admit 08/03/2021 - 09/03/2021 with recurrent infection on MRI. MRI 01/23/2022 stable from prior with ongoing toxo lesions. Follows with Dr. Fransisco OAKLEY. 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 MRI 01/23/2022 stable from prior with ongoing toxo lesions. Follows with Dr. Fransisco OAKLEY. 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 - Patient's HCP Cornelius and sister when present at bedside had confirmed with prior hospitalist, continued desire for all possible life-sustaining measures including CPR - VENDING ATTENDANT consulted to try to work with patient using speech board given that he is consistently following commands and has the ability to interact and make his needs known. Nurse Monitoring services is working on making patient custom speech board. Assessment & Plan (08/19/2022 7:05 PM EST): History of [facility] toxoplasmosis diagnosed 09/2020, recent admit 08/03/2021 - 09/03/2021 with recurrent infection on MRI. MRI 01/23/2022 stable from prior with ongoing toxo lesions. Follows with Dr. Moody ID. 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 - Patient's HCP Cornelius and sister when present at bedside had confirmed with prior hospitalist, continued desire for all possible life-sustaining measures including CPR - VENDING ATTENDANT consulted to try to work with patient using speech board given that he is consistently following commands and has the ability to interact and make his needs known. Nurse Monitoring services is working on making patient custom speech board. Assessment & Plan (08/14/2022 1:53 PM EST): History of [facility] toxoplasmosis diagnosed 09/2020, recent admit 08/03/2021 - 09/03/2021 with recurrent infection on MRI. MRI 01/23/2022 stable from prior with ongoing toxo lesions. Follows with Dr. Moody ID. 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 - Patient's HCP Cornelius and sister when present at bedside had confirmed with prior hospitalist, continued desire for all possible life-sustaining measures including CPR - VENDING ATTENDANT consulted to try to work with patient using speech board given that he is consistently following commands and has the ability to interact and make his needs known. Nurse Monitoring services is working on making patient custom speech board. Assessment & Plan (08/13/2022 4:57 PM EST): History of [facility] toxoplasmosis diagnosed 09/2020, recent admit 08/03/2021 - 09/03/2021 with recurrent infection on MRI. MRI 01/23/2022 stable from prior with ongoing toxo lesions. Follows with Dr. Moody ID. 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 - Patient's HCP Cornelius and sister when present at bedside had confirmed with prior hospitalist, continued desire for all possible life-sustaining measures including CPR - VENDING ATTENDANT consulted to try to work with patient using speech board given that he is consistently following commands and has the ability to interact and make his needs known. Nurse Monitoring services is working on making patient custom speech board Assessment & Plan (08/12/2022 9:18 PM EST): History of [facility] toxoplasmosis diagnosed 09/2020, recent admit 08/03/2021 - 09/03/2021 with recurrent infection on MRI. MRI 01/23/2022 stable from prior with ongoing toxo lesions. Follows with Dr. Moody ID. 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 - Patient's HCP Cornelius and sister when present at bedside had confirmed with prior hospitalist, continued desire for all possible life-sustaining measures including CPR - VENDING ATTENDANT consulted to try to work with patient using speech board given that he is consistently following commands and has the ability to interact and make his needs known. Nurse Monitoring services is working on making patient custom speech board. Assessment & Plan (07/15/2022 9:48 PM EST): History of [facility] toxoplasmosis diagnosed 09/2020, recent admit 08/03/2021 - 09/03/2021 with recurrent infection on MRI. MRI 01/23/2022 stable from prior with ongoing toxo lesions. Follows with Dr. Moody ID. 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 -Patient's HCP Cornelius and sister when present at bedside had confirmed continued desire for all possible life-sustaining measures including CPR -VENDING ATTENDANT consult placed to try to work with patient using speech board given that he is consistently following commands and has the ability to interact and make his needs known. Nurse Monitoring services is working on making patient custom speech board. Assessment & Plan (07/15/2022 12:56 AM EST): History of [facility] toxoplasmosis diagnosed 09/2020, recent admit 08/03/2021 - 09/03/2021 with recurrent infection on MRI. MRI 01/23/2022 stable from prior with ongoing toxo lesions. Follows with Dr. Moody ID. 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 -Patient's HCP Cornelius and sister present at bedside had confirmed continued desire for all possible life-sustaining measures including CPR -VENDING ATTENDANT consult placed to try to work with patient using speech board given that he is consistently following commands and has the ability to interact and make his needs known. Nurse Monitoring services is working on making patient custom speech board. Assessment & Plan (07/13/2022 10:53 PM EST): History of [facility] toxoplasmosis diagnosed 09/2020, recent admit 08/03/2021 - 09/03/2021 with recurrent infection on MRI. MRI 01/23/2022 stable from prior with ongoing toxo lesions. Follows with Dr. Moody ID. 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 -Patient's HCP Cornelius and sister present at bedside had confirmed continued desire for all possible life-sustaining measures including CPR -VENDING ATTENDANT consult placed to try to work with patient using speech board given that he is consistently following commands and has the ability to interact and make his needs known. Nurse Monitoring services is working on making patient custom speech board. Assessment & Plan (08/07/2021 9:01 AM EST): History of toxoplasmosis with [facility] involvement diagnosed 09/2020 via MRI brain and brain biopsy, showed: Abnormal brain with extensive lymphocytic and macrophage reaction and focal necrosis, due to Toxoplasma gondii (confirmed by immunohistochemistry). There was no evidence of lymphoma in the specimens. He was previously on pyrimethamine but is on bactrim DS suppressive therapy indefinitely, and despite this has remained altered from previous baseline, though improved in recent months and able to verbalize some words. Acute change in mental status since 07/21 per family but possibly dating back to 07/17 when last seen in hospital following aspiration event. Concern for recurrent toxoplasmosis at this time. CSF Toxplasma serologies and PCR taken on admission resulted on 07/29 as negative. However, likely that the infection is intraparenchymal. Furthermore, since starting aggressive anti [facility] toxoplasmosis treatment patient's baseline status has improved. Due to concerns for possible neutropenia, Pyrimethamine was decreased. Mental status continues to decrease, started on dexamethasone for potential [facility] swelling. Per ID recommendations, would need repeat brain MRI prior to steroids to confirm that lesions on brain are toxoplasmosis related. Brain MRI performed on 08/05 demonstrated no new or worsening brain lesions. Transplant ID recommendations Pyrimethamine 200 mg load followed by 50 mg daily (decreased from 75 mg d/t concerns of development of neutropenia) IV clindamycin 600 mg q 6 hours Leucovorin 25 mg daily (D1: 07/27) for 2 weeks. Continue Decadron 4 mg q6hr (D1: 09/03) PT evaluation Per reports from pt's [facility]dc, they wont be able to carry the Pyrimethamine at their pharmacy and patient unlikely to receive it there. Per ID notes, this medications will likely be life-long. Need GOC conversation between family, ID and possibly palliative care. Assessment & Plan (12/10/2020 9:11 PM EDT): This was diagnosed in 09/2020 via MRI brain and brain biopsy. He still has altered mental status. He is still on treatment. We are unsure about the expected course of recovery. We have been in communication with his brother Jericho. He saw ID clinic on 11/19/20 and plan was to repeat CD4 count to determine the need for change in therapy for Pneumocystis prophylaxis in addition to current regimen, and to complete 6 weeks of therapy from clinical and radiographic improvement on 11/07/20. The last day of therapy is 12/19/20 followed by suppressive therapy. - Continue pyrimethamine 75mg daily (with leucovorin 25mg daily) and clindamycin 600mg q6hr PO until 12/19/20 - Continue treatment for at least 6 weeks per ID - Continue levetiracetam 1 g twice daily (renally dosed) - Encourage restful sleep and music therapy per neuro rehabilitation recommendations - let ID know that patient is admitted Assessment & Plan (10/17/2020 1:30 PM EST): Hx mantle cell lymphoma on maintenance rituximab, presented with AMS with brain MRI 09/24/2020 evidence of basal ganglia, bilateral internal capsular, as well as cortical and subcortical involvement in the left frontal, bilateral parietal, right temporal, bilateral occipital and right cerebellar areas of T2/FLAIR hyperintensity, heterogenous decreased diffusion and heterogenous enhancement with mild associated local mass effect and no midline shift are identified. Differential considerations included CSF lymphoma, subacute infarctions, toxoplasmosis, metastasis, demyelination. Mental status continued to worsen during initial hospitalization, for which CODE STROKE was activated on 09/25 which was negative. The patient was transferred to neuro ICU for neuro monitoring. Received dexamethasone for vasogenic edema, with keppra for seizure ppx. No lumbar puncture was performed after discussions with neurosurgery concerning the risks and benefits. Brain biopsy 09/25: extensive lymphocytic and macrophage reaction and focal necrosis, due to Toxoplasma gondii (confirmed by immunohistochemistry). Seen by ophtho on 10/02, no evidence of ocular involvement. Toxoplasma antibody IgG 44.0; IgM negative. Beta d glucan and aspergillus negative. CMV, EBV, HSV 1/2, VZV, Herpes 6 A&B, cryptococcus, Histoplasma, Quanterferon Gold, Serum JCV, HIV negative. Cysticercosis IgG pending. Initially on full [facility] coverage for encephalitis and bacterial/fungal meningitis. On 09/27 he was started on leucovorin 25 mg daily, pyrimethamine 75 mg daily and sulfadiazine for toxoplasmosis coverage. CT head non-con 10/08 and 10/13 to assess for swelling were negative. Dexamethasone discontinued 10/[address] reassuring for decreased swelling. Due to worsening TAMMY, on 10/14 sulfadiazine discontinued and clindamycin 600 mg Q6H started. Plan is to continue therapy for at least 6 weeks, followed by suppressive therapy. Mental status continues to be poor as below. - transplant ID following - cysticercosis IgG ordered to evaluate for neurocysticercosis, pending - continue leucovorin 25 mg daily, pyrimethamine 75 mg daily, clindamycin 600 mg q6h (09/27-current) - repeat brain MRI by 10/18, per ID rec - for MRI need repeat metal screen (XRs ordered 10/16), cannot wear mitts during MRI so need plan for meds Brain compression 09/27/2020 Brain edema 09/27/2020 Brain lesion 09/25/2020 Lesion of frontal lobe of brain 09/25/2020 Pancytopenia 09/23/2020 Assessment & Plan (12/10/2020 9:28 PM EDT): Patient with a history of pancytopenia in the setting of rituximab maintenance therapy. At home, he was taking acyclovir 400 mg twice daily for viral prophylaxis. He was occasionally neutropenic during admission; neutropenic precautions were started when neccessary. Occasionally given [id number] to improve neutrophil count for neutropenia. -Continue cyanacobalamin 1 g IM weekly -Continue valacyclovir 500 mg every 12 hours for viral prophylaxis Assessment & Plan (10/17/2020 1:33 PM EST): Pancytopenia in the setting of immunosuppression / maintenance rituxan and B12 deficiency (09/28: 242). Previously neutropenic, ANC 300-600, up until 09/30. 10/17 ANC 1600. - CBC w/ diff daily - no plan for BM Bx at this time - B12 1000 mg IM weekly on Mondays while strict NPO - ppx with valtrex 500 mg daily - neutropenic precautions External hemorrhoids 09/23/2020 Right arm pain 04/14/2020 Stage 3a chronic kidney disease 03/26/2020 Assessment & Plan (08/21/2022 3:15 PM EST): Creatinine baseline 0.5-0.9. Suspect always low given low BMI/muscle mass. Creatinine remains at baseline. - BMP as needed - Avoid nephrotoxic meds Assessment & Plan (08/20/2022 6:15 PM EST): Creatinine baseline 0.5-0.9. Suspect always low given low BMI/muscle mass. Creatinine remains at baseline. - BMP as needed - Avoid nephrotoxic meds Assessment & Plan (08/19/2022 7:07 PM EST): Creatinine baseline 0.5-0.9. Suspect always low given low BMI/muscle mass. Creatinine remains at baseline. - BMP as needed - Avoid nephrotoxic meds Assessment & Plan (08/14/2022 1:53 PM EST): Creatinine baseline 0.5-0.9. Suspect always low given low BMI/muscle mass. Creatinine remains at baseline. - BMP as needed - Avoid nephrotoxic meds Assessment & Plan (08/13/2022 4:57 PM EST): Creatinine baseline 0.5-0.9. Suspect always low given low BMI/muscle mass. Creatinine remains at baseline. - BMP as needed - Avoid nephrotoxic meds. Assessment & Plan (08/12/2022 9:18 PM EST): Creatinine baseline 0.5-0.9. Suspect always low given low BMI/muscle mass. Creatinine remains at baseline. - BMP as needed - Avoid nephrotoxic meds Assessment & Plan (07/15/2022 12:54 AM EST): Creatinine baseline 0.5-0.9. Suspect always low given low BMI/muscle mass. Creatinine remains at baseline. - BMP as needed -avoid nephrotoxic meds Assessment & Plan (07/13/2022 10:50 PM EST): Tracheostomy baseline 0.5-0.9. Suspect always low given low BMI/muscle mass. Creatinine remains at baseline. - BMP as needed -avoid nephrotoxic meds Stem cell transplant candidate 02/26/2020 TAMMY (acute kidney injury) 12/27/2019 Assessment & Plan (08/05/2021 1:25 PM EST): New TAMMY w/ a raise in Cre from 0.89 to 1.15 in 48 hrs. Likely secondary to recent IV contrast and frequent tube feed holdings. Tube feeds remained well tolerated and fluids were then discontinued to avoid fluid overload. Daily BMP Monitor I/Os (has external urinary catheter) Assessment & Plan (12/10/2020 10:19 PM EDT): Hx of TAMMY, thus switched to rituximab / bendamustine. - Cr pending - Hold losartan - Avoid IV contrast with imaging - Avoid nephrotoxic medications like NSAIDs Assessment & Plan (10/17/2020 1:29 PM EST): Baseline Cr 1-1.2. Cr up to 2.73 on 10/13. UCx 10/05 NGTD. Urine lytes on 10/09 showed FEUrea of 55%, suggestive of intrarenal TAMMY (given 1x lasix night prior). UA 10/10 with 2+ protein, rare bacteria, leuk neg. Nephrology consulted 10/13 and sulfadiazine crystals were observed by urine microscopy. Recommendations were to start bicarbonate to alkalinize urine; discontinued 10/15 (urine pH=8). 2 doses of acetazolamide 500mg given with NS 100mL/h on 10/15 to help flush kidneys of sulfadiazine.Tube feeds replaced with Nepro in the setting of TAMMY. 10/14 renal ultrasound showed evidence of renal disease and no hydronephrosis. Nephrology signed off 10/15. 10/17 Cr 1.84. - NS 100 mL/h - monitor I&O's - bladder scan daily, external catheter - renally dose meds, avoid renal toxins Assessment & Plan (02/07/2020 2:25 PM EDT): Mr. Dickinson was recently diagnosed with mantle cell lymphoma and developed TAMMY after chemotherapy. He was also additionally diagnosed with UTI and hematuria after the chemo. He was on losartan for his hypertension which was held about a month ago. His creatinine peaked at 2.4 mg/dl and was better at 1.75 mg/dl at the last check. He has had proteinuria. Renal ultrasound was normal. Differential diagnosis includes prerenal azotemia, tumor lysis syndrome, AIN from medications or GN from the underlying lymphoma. Patient has active urine sediment including dysmorphic RBCs, oval fat bodies, free fat, fatty casts and 1 cellular cast. ANCA, JESSICA and complements were normal. Renal function continues to improve. He is undergoing active therapy for his mantle cell lymphoma. Given the urine sediment findings, he may have glomerular disease on the basis of the lymphoma. Serologies are negative. He has subnephrotic range proteinuria. I don't think renal biopsy would be helpful at this time as it would not change our course of action or treatment, particularly since the creatinine is improving. 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 I will see him back next month and review his urine again. Gross hematuria 12/26/2019 PIC line (peripherally inserted central catheter ) flush 12/21/2019 Encounter for antineoplastic chemotherapy 2019 Primary insomnia 12/17/2019 Anxiety 12/17/2019 Assessment & Plan (12/10/2020 9:24 PM EDT): His mood symptoms are stable today. Note that psychiatric disturbance is considered a comorbidity that adversely affects stem cell transplant outcomes per [facility]. - Defer ativan since he has altered mental status Assessment & Plan (10/14/2020 4:00 PM EST): Patient has history of anxiety. Home medications include klonopin 1 mgBID. - hold home Klonopin due to AMS Mantle cell lymphoma of solid organ excluding sp indira 12/10/2019 Assessment & Plan (08/28/2022 4:10 PM EST): Remote history of stage IV mantle cell lymphoma, currently in remission. Diagnosed 10/12/2019. Follows with Dr. Jonathan Jimenez. Started on hyper CVAD, transitioned to Rituximab/Bendamustine due to TAMMY. Not currently on any cancer directed therapy or maintenance therapy. Course has been complicated by [facility] toxo as per separate problem. - Appreciate ongoing oncology input - Case was discussed with Dr. Jimenez prior, requested for CD4 count resulted at 126, significantly reduced immunosupression Assessment & Plan (08/20/2022 6:15 PM EST): Remote history of stage IV mantle cell lymphoma, currently in remission. Diagnosed 10/12/2019. Follows with Dr. Jonathan Jimenez. Started on hyper CVAD, transitioned to Rituximab/Bendamustine due to TAMMY. Not currently on any cancer directed therapy or maintenance therapy. Course has been complicated by [facility] toxo as per separate problem. - Appreciate ongoing oncology input - Case was discussed with Dr. Jimenez prior, requested for CD4 count, resulted at 126, significantly reduced=immunosupression Assessment & Plan (08/19/2022 7:06 PM EST): Remote history of stage IV mantle cell lymphoma, currently in remission. Diagnosed 10/12/2019. Follows with Dr. Jonathan Jimenez. Started on hyper CVAD, transitioned to Rituximab/Bendamustine due to TAMMY. Not currently on any cancer directed therapy or maintenance therapy. Course has been complicated by [facility] toxo as per separate problem. - Appreciate ongoing oncology input - Case was discussed with Dr. Jimenez prior, requested for CD4 count, resulted at 126, significantly reduced Assessment & Plan (08/13/2022 4:57 PM EST): Remote history of stage IV mantle cell lymphoma, currently in remission. Diagnosed 10/12/2019. Follows with Dr. Jonathan Jimenez. Started on hyper CVAD, transitioned to Rituximab/Bendamustine due to TAMMY. Not currently on any cancer directed therapy or maintenance therapy. Course has been complicated by [facility] toxo as per separate problem. - Appreciate ongoing oncology input - Case was discussed with Dr. Jimenez prior, requested for CD4 count, resulted at 126, significantly reduced Assessment & Plan (08/12/2022 9:17 PM EST): Remote history of stage IV mantle cell lymphoma, currently in remission. Diagnosed 10/12/2019. Follows with Dr. Jonathan Jimenez. Started on hyper CVAD, transitioned to Rituximab/Bendamustine due to TAMMY. Not currently on any cancer directed therapy or maintenance therapy. Course has been complicated by [facility] toxo as per separate problem. - Appreciate ongoing oncology input - Case was discussed with Dr. Jimenez prior, requested for CD4 count, resulted at 126, significantly reduced. Assessment & Plan (07/15/2022 9:54 PM EST): Remote history of stage IV mantle cell lymphoma, currently in remission. Diagnosed 10/12/2019. Follows with Dr. Jonathan Jimenez. Started on hyper CVAD, transitioned to Rituximab/Bendamustine due to TAMMY. Not currently on any cancer directed therapy or maintenance therapy. Course has been complicated by [facility] toxo as per separate problem. -Appreciate ongoing oncology input -Case discussed with Dr. Jimenez, requested for CD4 count, resulted at 126, significantly reduced Assessment & Plan (07/15/2022 12:55 AM EST): Remote history of stage IV mantle cell lymphoma, currently in remission. Diagnosed 10/12/2019. Follows with Dr. Jonathan Jimenez. Started on hyper CVAD, transitioned to Rituximab/Bendamustine due to TAMMY. Not currently on any cancer directed therapy or maintenance therapy. Course has been complicated by [facility] toxo as per separate problem. -Appreciate ongoing oncology input -Case discussed with Dr. Jimenez, requested for CD4 count, resulted at 126, significantly reduced Assessment & Plan (07/13/2022 2:01 AM EST): Remote history of stage IV mantle cell lymphoma, currently in remission. Diagnosed 10/12/2019. Follows with Dr. Jonathan Jimenez. Started on hyper CVAD, transitioned to Rituximab/Bendamustine due to TAMMY. Not currently on any cancer directed therapy or maintenance therapy. Course has been complicated by [facility] toxo as per separate problem. -Appreciate ongoing oncology input -Case discussed with Dr. Jimenez, requested for CD4 count, resulted at 126, significantly reduced On antineoplastic chemotherapy 12/10/2019 Nephrolithiasis 12/10/2019 Major depressive disorder wi th single episode, in partial remission 12/10/2019 Traumatic rotator cuff tear 12/10/2019 HTN (hypertension) 12/10/2019 Assessment & Plan (12/10/2020 9:24 PM EDT): Blood pressure was 140s/90s and is now 90s/60s on 12/04. - Off losartan for his prior TAMMY and has been doing relatively well Assessment & Plan (02/07/2020 2:26 PM EDT): BP was elevated on arrival but improved after sitting down to 112/70. Patient is off all his medications. I did not make any changes. History of seizure Assessment & Plan (08/21/2022 3:13 PM EST): History of seizures in the setting of [facility] toxoplasmosis. Home: Lacosamide 200 mg every 12 hours - Continue home Lacosamide 200 mg total by G-tube every 12 hours Assessment & Plan (08/20/2022 6:14 PM EST): History of seizures in the setting of [facility] toxoplasmosis. Home: Lacosamide 200 mg every 12 hours - Continue home Lacosamide 200 mg total by G-tube every 12 hours Assessment & Plan (08/19/2022 7:05 PM EST): History of seizures in the setting of [facility] toxoplasmosis. Home: Lacosamide 200 mg every 12 hours - Continue home Lacosamide 200 mg total by G-tube every 12 hours Assessment & Plan (08/14/2022 1:53 PM EST): History of seizures in the setting of [facility] toxoplasmosis. Home: Lacosamide 200 mg every 12 hours - Continue home Lacosamide 200 mg total by G-tube every 12 hours Assessment & Plan (08/13/2022 4:57 PM EST): History of seizures in the setting of [facility] toxoplasmosis. Home: Lacosamide 200 mg every 12 hours - Continue home Lacosamide 200 mg total by G-tube every 12 hours. Assessment & Plan (08/12/2022 9:19 PM EST): History of seizures in the setting of [facility] toxoplasmosis. 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 Past Treatment and Therapy Plans Oncology Treatment Plan Name Start Date Discontinue Date Treatment Medications Discontinue Reason Plan Provider Cycles Methotrexate, 21 Day Cycle - Lymphoma (Non-Hodgkin's ) - INPT 09/23/19 21 11/08/2020 albuterol 2.5 mg/3 mL (0.083%)EPINEPHrine (ADRENALIN) 1:1,000 (1 mg/mL)leucovorin IVPB 100 mLmethotrexate chemo infusionpalonosetron (ALOXI)sodium bicarbonate infusionsodium chloride 0.9% (NS) Therapy Complete Jonathan Jimenez MD PhD Treatment not started riTUXimab / Bendamustine, 21 Day Cycle - Lymphoma (Non-Hodgkin's ) - OP 01/21/20 20 09/23/2020 bendamustine (BELRAPZO) chemo IVPBpalonosetron (ALOXI)riTUXimab (RITUXAN) IVPB 250 mL Progressive Disease Jonathan Jimenez MD PhD 6 of 6 cycles started HyperCVAD (Cyclophospham edie / vinCRIStine / DOXOrubicin / Dexamethasone (Cycle A) & Methotrexate / Cytarabine (Cycle B)), 21 Day Cycle - Leukemia (ALL) / Lymphoma (Non-Hodgkin's ) - INPT / OP 12/17/19 20 01/16/2020 albuterol 2.5 mg/3 mL (0.083%)cyclophosphami de (CYTOXAN) chemo IVPB in 250 mLcytarabine (CYTOSAR) INTRATHECAL chemo syringecytarabine chemo IVPB 500 mLDOXOrubicin (ADRIAMYCIN)EPINEPHrin e (ADRENALIN) 1:1,000 (1 mg/mL)leucovorin IVPB 50 mLmesna (MESNEX) IV syringemethotrexate INTRATHECAL chemo injectionmethotrexate- bicarbonate IVPBmethylPREDNISolone sodium succinate (SOLU-Medrol)palonoset sagar (ALOXI)pegfilgrastim-c bqv (UDENYCA)sodium bicarbonate infusionsodium chloride 0.9% (NS)vincristine (ONCOVIN) chemo IVPB Toxicity/Com plication Jonathan Jimenez MD PhD 1 of 6 cycles started Oncology Treatment Supplemental Plan Name Start Date Discontinue Date Treatment Medications Discontinue Reason Plan Provider Cycles riTUXimab, 56 Day Cycle - Leukemia / Lymphoma (Non-Hodgkin's) - OP 020 11/12/2020 riTUXimab (RUXIENCE)riTUXi mab (RUXIENCE) IVPB 250 mL Therapy Complete Jonathan Jimenez MD PhD 2 of 6 cycles started Cyclophosphamide (Mobilization) - Multiple Myeloma/Lymphoma/M ultiple Sclerosis - OP 03/14/20 20 05/05/2020 aprepitant emulsion (CINVANTI)cyclop hosphamide (CYTOXAN) chemo IVPB in 500 mLfilgrastim-snd z (ZARXIO)mesna (MESNEX) IVPB 50 mLpalonosetron (ALOXI) Therapy Complete Jonathan Jimenez MD PhD Treatment not started riTUXimab, 21 Day Cycle - Leukemia / Lymphoma (Non-Hodgkin's) - OP 12/27/19 20 01/16/2020 albuterol 2.5 mg/3 mL (0.083%)EPINEPHr ine (ADRENALIN) 1:1,000 (1 mg/mL)riTUXimab (RITUXAN)riTUXim ab (RITUXAN) IVPB 250 mLsodium chloride 0.9% (NS) Physician Determines it is in Best Interest of Patient Jonathan Jimenez MD PhD 1 of 6 cycles started Therapy Plan Orders Plan Name Start Date Discontinue Date Treatment Medicatio ns Discontinue Reason Plan Provider HYDRATION 12/27/2019 07/27/2021 magnesium sulfatepotassium chloridesodium chloride 0.9% (NS) with KCl 20 mEq/L 1000 mL Therapy Complete Jonathan Jimenez MD PhD Therapy Plan Orders 2 Plan Name Start Date Discontinue Date Treatment Medications Discontinue Reason Plan Provider PLERIXAFOR (MOZOBIL) AND FILGRASTIM FOR MOBILIZATION, DAILY 03/17/2020 09/23/2020 filgrastim-sndz (ZARXIO)plerixaf or (MOZOBIL) Progressive Disease Jonathan Jimenez MD PhD Lifetime Dose Tracking * Chemical Lifetime Dose Automatic Entry Manual Entr y doxorubicin 49.561 mg/m2 (113 mg) 49.561 mg/m2 (113 m g) 0 mg/m2 (0 mg) Fluoro Time 0.1 minutes 0.1 minutes 0 minutes cyclophosphamide 1,804.067 mg/m2 (4,080 mg) 1,804.067 mg/m2 (4,080 mg) 0 mg/m2 (0 mg) TotalDLP 2,839 mGy 2,839 mGy 0 mGy [id number] 20.8 mSv 20.8 mSv 0 mSv CTDIvol Max 107 mGy 107 mGy 0 mGy CTDIvol Min 107 mGy 107 mGy 0 mGy Radiation - mGy 4.49 mGy 4.49 mGy 0 mGy Resolved Problems Problem Noted Date Diagnosed Date Resolved Date Pyelonephritis 08/13/2022 09/15/2022 Assessment & Plan (09/21/2022 4:20 PM EST): RESOLVED When pt developed SIRS criteria on 08/04 CT abd obtained and showed LLL infiltrated likely pneumonia as well as R side pyelo. Pt also found to be COVID positive. ID subsequently re-engaged. Pt started on remdesivir/decadron for COVID and was started on Avycaz for pneumonia. 08/04 UCx grew ESBL klebsiella. He is s/p 8 days Avycaz (completed 08/13). Assessment & Plan (08/20/2022 6:15 PM EST): When pt developed SIRS criteria on 08/04 CT abd obtained and showed LLL infiltrated likely pneumonia as well as R side pyelo. Pt also found to be COVID positive. ID subsequently re-engaged. Pt started on remdesivir/decadron for COVID and was started on Avycaz for pneumonia. -08/04 UCx grew ESBL klebsiella -s/p 8 days Avycaz (completed 08/13) Assessment & Plan (08/19/2022 7:06 PM EST): When pt developed SIRS criteria on 08/04 CT abd obtained and showed LLL infiltrated likely pneumonia as well as R side pyelo. Pt also found to be COVID positive. ID subsequently re-engaged. Pt started on remdesivir/decadron for COVID and was started on Avycaz for pneumonia. -08/04 UCx grew ESBL klebsiella -s/p 8 days Avycaz (completed 08/13) Assessment & Plan (08/14/2022 1:55 PM EST): When pt developed SIRS criteria on 08/04 CT abd obtained and showed LLL infiltrated likely pneumonia as well as R side pyelo. Pt also found to be COVID positive. ID subsequently re-engaged. Pt started on remdesivir/decadron for COVID and was started on Avycaz for pneumonia. -08/04 UCx grew ESBL klebsiella -s/p 8 days Avycaz (completed 08/13) Assessment & Plan (08/13/2022 5:05 PM EST): When pt developed SIRS criteria on 08/04 CT abd obtained and showed LLL infiltrated likely pneumonia as well as R side pyelo. Pt also found to be COVID positive. ID subsequently re-engaged. Pt started on remdesivir/decadron for COVID and was started on Avycaz for pneumonia. -08/04 UCx grew ESBL klebsiella -s/p 8 days Avycaz (completed today) Pneumonia due to COVID-19 virus 06/17/2022 09/15/2022 Assessment & Plan (09/21/2022 4:20 PM EST): RESOLVED Pt with prior COVID infection in 05/2022. Again tested positive on 08/04/22 in the setting of recurrent fevers as well as concern for LLL PNA, UTI and pyelo. Patient iss/p 3 days remdesivir and completed 10 days of decadron. Assessment & Plan (08/20/2022 6:15 PM EST): Pt with prior COVID infection in 05/2022. Again tested positive on 08/04/22 in the setting of recurrent fevers as well as concern for LLL PNA, UTI and pyelo. -s/p 3 days remdesivir -on day 10 decadron -remains in isolation precautions -note: Discussed with transplant ID about patient immunosuppressant condition. He off chemo since Sep 2021, Not on steroid and did not receive any transplant. He is being treat for Toxo with Pyrimethamine, but did medication should not put patient in immunocompromised. Assessment & Plan (08/19/2022 7:06 PM EST): Pt with prior COVID infection in 05/2022. Again tested positive on 08/04/22 in the setting of recurrent fevers as well as concern for LLL PNA, UTI and pyelo. -s/p 3 days remdesivir -on day 10 decadron -remains in isolation precautions -note: Discussed with transplant ID about patient immunosuppressant condition. He off chemo since Sep 2021, Not on steroid and did not receive any transplant. He is being treat for Toxo with Pyrimethamine, but did medication should not put patient in immunocompromised. Assessment & Plan (08/14/2022 1:54 PM EST): Pt with prior COVID infection in 05/2022. Again tested positive on 08/04/22 in the setting of recurrent fevers as well as concern for LLL PNA, UTI and pyelo. -s/p 3 days remdesivir -on day 10 decadron -remains in isolation precautions -note: Discussed with transplant ID about patient immunosuppressant condition. He off chemo since Sep 2021, Not on steroid and did not receive any transplant. He is being treat for Toxo with Pyrimethamine, but did medication should not put patient in immunocompromised. Assessment & Plan (08/13/2022 4:59 PM EST): Pt with prior COVID infection in 05/2022. Again tested positive on 08/04/22 in the setting of recurrent fevers as well as concern for LLL PNA, UTI and pyelo. -s/p 3 days remdesivir -on day 8 decadron -remains in isolation precautions -note: Discussed with transplant ID about patient immunosuppressant condition. He off chemo since Sep 2021, Not on steroid and did not receive any transplant. He is being treat for Toxo with Pyrimethamine, but did medication should not put patient in immunocompromised. Assessment & Plan (08/12/2022 9:26 PM EST): Pt with prior COVID infection in 05/2022. Again tested positive on 08/04/22 in the setting of recurrent fevers as well as concern for LLL PNA, UTI and pyelo. -s/p 3 days remdesivir -on day 810 decadron -remains in isolation precautions -note: Discussed with transplant ID about patient immunosuppressant condition. He off chemo since Sep 2021, Not on steroid and did not receive any transplant. He is being treat for Toxo with Pyrimethamine, but did medication should not put patient in immunocompromised. Assessment & Plan (06/26/2022 1:03 PM EST): RESOLVED Patient was test positive for COVID19. Patient did not show any active symptoms of covid pneumonia. CXR on 06/17 show stable with some loss of volume on the left base, most likely due to mucus obstruction causing atelectasis. He experienced tachycardia and had low grade fever. His oxygen increase from 6L-> 10L with SpO2 was 92%. Repeated CXR on 06/18 compared to 06/17 showed significant improvement after he was able to clear his lung. This was unlikely caused by Covid Pneumonia. Resolved as of 06/26. Discussed with transplant ID about patient immunosuppressant condition. He off chemo since Sep 2021, Not on steroid and did not receive any transplant. He is being treat for Toxo with Pyrimethamine, but did medication should not put patient in immunocompromised. Patient was in remission. Off Covid19 precaution. Fever 05/31/2022 05/31/2022 Pneumonia 04/26/2022 09/27/2022 Assessment & Plan (09/21/2022 4:19 PM EST): RESOLVED When pt developed SIRS criteria on 08/04 CT abd obtained and showed LLL infiltrated likely pneumonia as well as R side pyelo. Pt also found to be COVID positive. ID subsequently re-engaged. Pt started on remdesivir/decadron for COVID and was started on Avycaz for pneumonia. 08/04 resp cx grew MDRO pseudomonas, MRSA, stenotrophomonas. Completed 8 days of Avycaz on 08/13. On 09/16, patient again febrile overnight to 39.2. CXR showed new diffuse PNA in LLL with associated new diffuse interstitial infiltrate bilaterally. Started vancomycin and cefepime on 09/16. Per ID, since fever was isolated, will d/c antibiotics. Assessment & Plan (08/20/2022 6:15 PM EST): When pt developed SIRS criteria on 08/04 CT abd obtained and showed LLL infiltrated likely pneumonia as well as R side pyelo. Pt also found to be COVID positive. ID subsequently re-engaged. Pt started on remdesivir/decadron for COVID and was started on Avycaz for pneumonia. -08/04 resp cx grew MDRO pseudomonas, MRSA, stenotrophomonas -s/p 8 days avycaz (completed 08/13) Assessment & Plan (08/19/2022 7:06 PM EST): When pt developed SIRS criteria on 08/04 CT abd obtained and showed LLL infiltrated likely pneumonia as well as R side pyelo. Pt also found to be COVID positive. ID subsequently re-engaged. Pt started on remdesivir/decadron for COVID and was started on Avycaz for pneumonia. -08/04 resp cx grew MDRO pseudomonas, MRSA, stenotrophomonas -s/p 8 days avycaz (completed 08/13) Assessment & Plan (08/14/2022 1:53 PM EST): When pt developed SIRS criteria on 08/04 CT abd obtained and showed LLL infiltrated likely pneumonia as well as R side pyelo. Pt also found to be COVID positive. ID subsequently re-engaged. Pt started on remdesivir/decadron for COVID and was started on Avycaz for pneumonia. -08/04 resp cx grew MDRO pseudomonas, MRSA, stenotrophomonas -s/p 8 days avycaz (completed 08/13) Assessment & Plan (08/13/2022 5:04 PM EST): When pt developed SIRS criteria on 08/04 CT abd obtained and showed LLL infiltrated likely pneumonia as well as R side pyelo. Pt also found to be COVID positive. ID subsequently re-engaged. Pt started on remdesivir/decadron for COVID and was started on Avycaz for pneumonia. -08/04 resp cx grew MDRO pseudomonas, MRSA, stenotrophomonas -s/p 8 days avycaz (completed today) Sepsis with acute hypoxic re spiratory failure without septic shock 04/26/2022 09/27/2022 Assessment & Plan (09/22/2022 5:02 PM EST): Patient admitted with sepsis criteria with HR 101, RR 24, WBC 16.2, hypotension BP 93/78.Of note, recent ICU admit from 01/21-01/31 for septic shock in the setting of PNA and bacteremia which was fluid refractory requiring levophed. Required tobramycin and meropenem that admission for the following MDRO: Respiratory cx 01/22 grew Pseudomonas: resistant only to cipro with intermediate to tobramycin Blood culture 01/21 grew Pseudomonas resistant to cipro, staph haemolyticus, staph auricularis, klebsiella resistant to most abx, intermediate to zosyn, tobramcyin, and sensitive only to TMP-SMX, ertapenem, meropenem, amikacin. Patient initially received vanc/zosyn, escalated to vanc/ceftazidine-avibactam per ID recs. Likely severe sepsis 09/16 PNA given CXR findings and copious secretions, culture history. LLL PNA +/- effusion/collapse/atelectasis. 05/02 respiratory cultures grew Meropenem-resistant pseudomonas, ESBL klebsiella. ID following. Staphylococcus species in 1 set Bcx 04/26 likely contaminant. E Faecalis species in 1/4 bottles Bcx 04/30, likely contaminant, grew after patient was on vancomycin. Started course of Meropenem (04/30-05/06), Ceftaz/Avibactam (04/26- 04/30), (05/06-05/13), Vancomycin (04/26-05/04), Tobramycin IV (05/06-05/11), Tobramycin Inhaled (05/06-05/12) with lase dose 05/13 05/30. Patient spiked fever to 101.7, blood cultures drawn x2, chest x-ray unremarkable, Sputum Cx sent, WBC unremarkable. ID consulted and recommended cefepime if fever returns. Fever resolved 05/30 overnight and returned 05/31 overnight prompting initiation of cefepime (05/31-06/06 ). Patient underwent brochospcopy 06/01 with clearance of thick sputum. 06/29 Patient experienced desat to low 80, with fever spiking, and tachycardia. Rapid response was called. Patient received deep saline suction, with chest PT which helped improve the desaturation. Patient was hypotensive throughout the night. IV fluid was given that brought his blood pressure from 70 to 90 with MAP > 65. Lactic acid was sent and came back negative. Patient again with sepsis on 08/04 as above and was found to be COVID+, as well as ESBL klebsiella in urine, LLL pneumonia and R side pyelo Fever on 09/16 originally on antibiotics, now discontinued per ID as likely isolated fever. Fever again on 09/22. Will hold antibiotics for now per ID. -CBC daily -monitor fever curve Assessment & Plan (08/20/2022 6:15 PM EST): Patient admitted with sepsis criteria with HR 101, RR 24, WBC 16.2, hypotension BP 93/78.Of note, recent ICU admit from 01/21-01/31 for septic shock in the setting of PNA and bacteremia which was fluid refractory requiring levophed. Required tobramycin and meropenem that admission for the following MDRO: Respiratory cx 01/22 grew Psuedomonas: resistant only to cipro with intermediate to tobramycin Blood culture 01/21 grew Psuedomonas resistant to cipro, staph haemolyticus, staph auricularis, klebsiella resistant to most abx, intermediate to zosyn, tobramcyin, and sensitive only to TMP-SMX, ertapenem, meropenem, amikacin. Patient initially received vanc/zosyn, escalated to vanc/ceftazidine-avibactam per ID recs. Likely severe sepsis 2/2 PNA given CXR findings and copious secretions, culture history, less likely due to GI illness but he did have liquid stools, history of clindamycin use, coming from facility, and WBC. Suspected more likely pulmonary source. LLL PNA +/- effusion/collapse/atelectasis. 05/02 respiratory cultures grew Meropenem-resistant pseudomonas, ESBL klebsiella. ID following. Staphylococcus species in 1 set Bcx 04/26 likely contaminant. E Faecalis species in 1/4 bottles Bcx 04/30, likely contaminant, grew after patient was on vancomycin. Started course of Meropenem (04/30-05/06), Ceftaz/Avibactam (04/26- 04/30), (05/06-05/13), Vancomycin (04/26-05/04), Tobramycin IV (05/06-05/11), Tobramycin Inhaled (05/06-05/12) with lase dose 05/13 05/30. Patient spiked fever to 101.7, blood cultures drawn x2, chest x-ray unremarkable, Sputum Cx sent, WBC unremarkable. ID consulted and recommended cefepime if fever returns. Fever resolved 05/30 overnight and returned 05/31 overnight prompting initiation of cefepime (05/31-06/06 ). Patient underwent brochospcopy 06/01 with clearance of thick sputum. 06/29 Patient experienced desat to low 80, with fever spiking, and tachycardia. Rapid response was called. Patient received deep saline suction, with chest PT which helped improve the desaturation. Patient was hypotensive throughout the night. IV fluid was given that brought his blood pressure from 70 to 90 with MAP > 65. Lactic acid was sent and came back negative. - Patient again with sepsis on 08/04 as above and was found to be COVID+, as well as ESBL klebsiella in urine, LLL pneumonia and R side pyelo -continue COVID tx per that section -completed Avycaz for PNA and pyelo per those sections -has remained afebrile since 08/11 Assessment & Plan (08/19/2022 7:07 PM EST): Patient admitted with sepsis criteria with HR 101, RR 24, WBC 16.2, hypotension BP 93/78.Of note, recent ICU admit from 01/21-01/31 for septic shock in the setting of PNA and bacteremia which was fluid refractory requiring levophed. Required tobramycin and meropenem that admission for the following MDRO: Respiratory cx 01/22 grew Psuedomonas: resistant only to cipro with intermediate to tobramycin Blood culture 01/21 grew Psuedomonas resistant to cipro, staph haemolyticus, staph auricularis, klebsiella resistant to most abx, intermediate to zosyn, tobramcyin, and sensitive only to TMP-SMX, ertapenem, meropenem, amikacin. Patient initially received vanc/zosyn, escalated to vanc/ceftazidine-avibactam per ID recs. Likely severe sepsis 2/2 PNA given CXR findings and copious secretions, culture history, less likely due to GI illness but he did have liquid stools, history of clindamycin use, coming from facility, and WBC. Suspected more likely pulmonary source. LLL PNA +/- effusion/collapse/atelectasis. 05/02 respiratory cultures grew Meropenem-resistant pseudomonas, ESBL klebsiella. ID following. Staphylococcus species in 1 set Bcx 04/26 likely contaminant. E Faecalis species in 1/4 bottles Bcx 04/30, likely contaminant, grew after patient was on vancomycin. Started course of Meropenem (04/30-05/06), Ceftaz/Avibactam (04/26- 04/30), (05/06-05/13), Vancomycin (04/26-05/04), Tobramycin IV (05/06-05/11), Tobramycin Inhaled (05/06-05/12) with lase dose 05/13 05/30. Patient spiked fever to 101.7, blood cultures drawn x2, chest x-ray unremarkable, Sputum Cx sent, WBC unremarkable. ID consulted and recommended cefepime if fever returns. Fever resolved 05/30 overnight and returned 05/31 overnight prompting initiation of cefepime (05/31-06/06 ). Patient underwent brochospcopy 06/01 with clearance of thick sputum. 06/29 Patient experienced desat to low 80, with fever spiking, and tachycardia. Rapid response was called. Patient received deep saline suction, with chest PT which helped improve the desaturation. Patient was hypotensive throughout the night. IV fluid was given that brought his blood pressure from 70 to 90 with MAP > 65. Lactic acid was sent and came back negative. - Patient again with sepsis on 08/04 as above and was found to be COVID+, as well as ESBL klebsiella in urine, LLL pneumonia and R side pyelo -continue COVID tx per that section -completed Avycaz for PNA and pyelo per those sections -has remained afebrile since 08/11 Assessment & Plan (08/14/2022 1:54 PM EST): Patient admitted with sepsis criteria with HR 101, RR 24, WBC 16.2, hypotension BP 93/78.Of note, recent ICU admit from 01/21-01/31 for septic shock in the setting of PNA and bacteremia which was fluid refractory requiring levophed. Required tobramycin and meropenem that admission for the following MDRO: Respiratory cx 01/22 grew Psuedomonas: resistant only to cipro with intermediate to tobramycin Blood culture 01/21 grew Psuedomonas resistant to cipro, staph haemolyticus, staph auricularis, klebsiella resistant to most abx, intermediate to zosyn, tobramcyin, and sensitive only to TMP-SMX, ertapenem, meropenem, amikacin. Patient initially received vanc/zosyn, escalated to vanc/ceftazidine-avibactam per ID recs. Likely severe sepsis 2/2 PNA given CXR findings and copious secretions, culture history, less likely due to GI illness but he did have liquid stools, history of clindamycin use, coming from facility, and WBC. Suspected more likely pulmonary source. LLL PNA +/- effusion/collapse/atelectasis. 05/02 respiratory cultures grew Meropenem-resistant pseudomonas, ESBL klebsiella. ID following. Staphylococcus species in 1 set Bcx 04/26 likely contaminant. E Faecalis species in 1/4 bottles Bcx 04/30, likely contaminant, grew after patient was on vancomycin. Started course of Meropenem (04/30-05/06), Ceftaz/Avibactam (04/26- 04/30), (05/06-05/13), Vancomycin (04/26-05/04), Tobramycin IV (05/06-05/11), Tobramycin Inhaled (05/06-05/12) with lase dose 05/13 05/30. Patient spiked fever to 101.7, blood cultures drawn x2, chest x-ray unremarkable, Sputum Cx sent, WBC unremarkable. ID consulted and recommended cefepime if fever returns. Fever resolved 05/30 overnight and returned 05/31 overnight prompting initiation of cefepime (05/31-06/06 ). Patient underwent brochospcopy 06/01 with clearance of thick sputum. 06/29 Patient experienced desat to low 80, with fever spiking, and tachycardia. Rapid response was called. Patient received deep saline suction, with chest PT which helped improve the desaturation. Patient was hypotensive throughout the night. IV fluid was given that brought his blood pressure from 70 to 90 with MAP > 65. Lactic acid was sent and came back negative. - Patient again with sepsis on 08/04 as above and was found to be COVID+, as well as ESBL klebsiella in urine, LLL pneumonia and R side pyelo -continue COVID tx per that section -completed Avycaz for PNA and pyelo per those sections -has remained afebrile since 08/11 Assessment & Plan (08/13/2022 4:59 PM EST): Patient admitted with sepsis criteria with HR 101, RR 24, WBC 16.2, hypotension BP 93/78.Of note, recent ICU admit from 01/21-01/31 for septic shock in the setting of PNA and bacteremia which was fluid refractory requiring levophed. Required tobramycin and meropenem that admission for the following MDRO: Respiratory cx 01/22 grew Psuedomonas: resistant only to cipro with intermediate to tobramycin Blood culture 01/21 grew Psuedomonas resistant to cipro, staph haemolyticus, staph auricularis, klebsiella resistant to most abx, intermediate to zosyn, tobramcyin, and sensitive only to TMP-SMX, ertapenem, meropenem, amikacin. Patient initially received vanc/zosyn, escalated to vanc/ceftazidine-avibactam per ID recs. Likely severe sepsis 2/2 PNA given CXR findings and copious secretions, culture history, less likely due to GI illness but he did have liquid stools, history of clindamycin use, coming from facility, and WBC. Suspected more likely pulmonary source. LLL PNA +/- effusion/collapse/atelectasis. 05/02 respiratory cultures grew Meropenem-resistant pseudomonas, ESBL klebsiella. ID following. Staphylococcus species in 1 set Bcx 04/26 likely contaminant. E Faecalis species in 1/4 bottles Bcx 04/30, likely contaminant, grew after patient was on vancomycin. Started course of Meropenem (04/30-05/06), Ceftaz/Avibactam (04/26- 04/30), (05/06-05/13), Vancomycin (04/26-05/04), Tobramycin IV (05/06-05/11), Tobramycin Inhaled (05/06-05/12) with lase dose 05/13 05/30. Patient spiked fever to 101.7, blood cultures drawn x2, chest x-ray unremarkable, Sputum Cx sent, WBC unremarkable. ID consulted and recommended cefepime if fever returns. Fever resolved 05/30 overnight and returned 05/31 overnight prompting initiation of cefepime (05/31-06/06 ). Patient underwent brochospcopy 06/01 with clearance of thick sputum. 11/15 Patient experienced desat to low 80, with fever spiking, and tachycardia. Rapid response was called. Patient received deep saline suction, with chest PT which helped improve the desaturation. Patient was hypotensive throughout the night. IV fluid was given that brought his blood pressure from 70 to 90 with MAP > 65. Lactic acid was sent and came back negative. - Patient again with sepsis on 08/04 as above and was found to be COVID+, as well as ESBL klebsiella in urine, LLL pneumonia and R side pyelo -continue COVID tx per that section -continue Avycaz for PNA and pyelo per those sections Assessment & Plan (08/12/2022 9:23 PM EST): Patient admitted with sepsis criteria with HR 101, RR 24, WBC 16.2, hypotension BP 93/78.Of note, recent ICU admit from 01/21-01/31 for septic shock in the setting of PNA and bacteremia which was fluid refractory requiring levophed. Required tobramycin and meropenem that admission for the following MDRO: Respiratory cx 01/22 grew Psuedomonas: resistant only to cipro with intermediate to tobramycin Blood culture 01/21 grew Psuedomonas resistant to cipro, staph haemolyticus, staph auricularis, klebsiella resistant to most abx, intermediate to zosyn, tobramcyin, and sensitive only to TMP-SMX, ertapenem, meropenem, amikacin. Patient initially received vanc/zosyn, escalated to vanc/ceftazidine-avibactam per ID recs. Likely severe sepsis 2/2 PNA given CXR findings and copious secretions, culture history, less likely due to GI illness but he did have liquid stools, history of clindamycin use, coming from facility, and WBC. Suspect more likely pulmonary source. LLL PNA +/- effusion/collapse/atelectasis. 05/02 respiratory cultures grew Meropenem-resistant pseudomonas, ESBL klebsiella. ID following. Staphylococcus species in 1 set Bcx 04/26 likely contaminant. E Faecalis species in 1/4 bottles Bcx 04/30, likely contaminant, grew after patient was on vancomycin. Started course of Meropenem (04/30-05/06), Ceftaz/Avibactam (04/26- 04/30), (05/06-05/13), Vancomycin (04/26-05/04), Tobramycin IV (05/06-05/11), Tobramycin Inhaled (05/06-05/12) with lase dose 05/13, Continued to monitor patient off of antibiotics at this point 05/30. Patient spiked fever to 101.7, blood cultures drawn x2, chest x-ray unremarkable, Sputum Cx sent, WBC unremarkable. ID consulted and recommended cefepime if fever returns. Fever resolved 05/30 overnight and returned 05/31 overnight prompting initiation of cefepime (05/31-06/06 ). Patient underwent brochospcopy 06/01 with clearance of thick sputum. 06/29 Patient experienced desat to low 80, with fever spiking, and tachycardia. Rapid response was called. Patient received deep saline suction, with chest PT which helped improve the desaturation. Patient was hypotensive throughout the night. IV fluid was given that brought his blood pressure from 70 to 90 with MAP > 65. Lactic acid was sent and came back negative. - Patient again with sepsis on 08/04 as above and was found to be COVID+, as well as ESBL klebsiella in urine, LLL pneumonia and R side pyelo -continue COVID tx per that section -continue Avycaz for PNA and pyelo per those sections Assessment & Plan (07/15/2022 9:54 PM EST): RESOLVED. Patient admitted with sepsis criteria with HR 101, RR 24, WBC 16.2, hypotension BP 93/78.Of note, recent ICU admit from 01/21-01/31 for septic shock in the setting of PNA and bacteremia which was fluid refractory requiring levophed. Required tobramycin and meropenem that admission for the following MDRO: Respiratory cx 01/22 grew Psuedomonas: resistant only to cipro with intermediate to tobramycin Blood culture 01/21 grew Psuedomonas resistant to cipro, staph haemolyticus, staph auricularis, klebsiella resistant to most abx, intermediate to zosyn, tobramcyin, and sensitive only to TMP-SMX, ertapenem, meropenem, amikacin. Patient initially received vanc/zosyn, escalated to vanc/ceftazidine-avibactam per ID recs. Likely severe sepsis 2/2 PNA given CXR findings and copious secretions, culture history, less likely due to GI illness but he does have liquid stools, history of clindamycin use, coming from facility, and WBC. Suspect more likely pulmonary source. LLL PNA +/- effusion/collapse/atelectasis. 05/02 respiratory cultures grew Meropenem-resistant pseudomonas, ESBL klebsiella. ID following. Staphylococcus species in 1 set Bcx 04/26 likely contaminant. E Faecalis species in 1/4 bottles Bcx 04/30, likely contaminant, grew after patient was on vancomycin. Started course of Meropenem (04/30-05/06), Ceftaz/Avibactam (04/26-04/30), (05/06-05/13), Vancomycin (04/26-05/04), Tobramycin IV (05/06-05/11), Tobramycin Inhaled (05/06-05/12) with lase dose 05/13, Continued to monitor patient off of antibiotics at this point 05/30. Patient spiked fever to 101.7, blood cultures drawn x2, chest x-ray unremarkable, Sputum Cx sent, WBC unremarkable. ID consulted and recommended cefepime if fever returns. Fever resolved 05/30 overnight and returned 05/31 overnight prompting initiation of cefepime (05/31-06/06 ). Patient underwent brochospcopy 06/01 with clearance of thick sputum. 06/29 Patient experienced desat to low 80, with fever spiking, and tachycardia. Rapid response was called. Patient received deep saline suction, with chest PT with helped improve the desaturation. Patient was hypotensive throughout the night. IV fluid was given that bring up his blood pressure from 70 to 90 with MAP > 65. Lactic acid was sent and came back negative. -BCx 06/30 NGTD -s/p Vanco + Zosyn -Ongoing vigilance of recurrence of respiratory infection, more tachycardic , monitor for signs of fever Assessment & Plan (07/15/2022 12:54 AM EST): RESOLVED. Patient admitted with sepsis criteria with HR 101, RR 24, WBC 16.2, hypotension BP 93/78.Of note, recent ICU admit from 01/21-01/31 for septic shock in the setting of PNA and bacteremia which was fluid refractory requiring levophed. Required tobramycin and meropenem that admission for the following MDRO: Respiratory cx 01/22 grew Psuedomonas: resistant only to cipro with intermediate to tobramycin Blood culture 01/21 grew Psuedomonas resistant to cipro, staph haemolyticus, staph auricularis, klebsiella resistant to most abx, intermediate to zosyn, tobramcyin, and sensitive only to TMP-SMX, ertapenem, meropenem, amikacin. Patient initially received vanc/zosyn, escalated to vanc/ceftazidine-avibactam per ID recs. Likely severe sepsis 2/2 PNA given CXR findings and copious secretions, culture history, less likely due to GI illness but he does have liquid stools, history of clindamycin use, coming from facility, and WBC. Suspect more likely pulmonary source. LLL PNA +/- effusion/collapse/atelectasis. 05/02 respiratory cultures grew Meropenem-resistant pseudomonas, ESBL klebsiella. ID following. Staphylococcus species in 1 set Bcx 04/26 likely contaminant. E Faecalis species in 1/4 bottles Bcx 04/30, likely contaminant, grew after patient was on vancomycin. Started course of Meropenem (04/30-05/06), Ceftaz/Avibactam (04/26-04/30), (05/06-05/13), Vancomycin (04/26-05/04), Tobramycin IV (05/06-05/11), Tobramycin Inhaled (05/06-05/12) with lase dose 05/13, Continued to monitor patient off of antibiotics at this point 05/30. Patient spiked fever to 101.7, blood cultures drawn x2, chest x-ray unremarkable, Sputum Cx sent, WBC unremarkable. ID consulted and recommended cefepime if fever returns. Fever resolved 05/30 overnight and returned 05/31 overnight prompting initiation of cefepime (05/31-06/06 ). Patient underwent brochospcopy 06/01 with clearance of thick sputum. 06/29 Patient experienced desat to low 80, with fever spiking, and tachycardia. Rapid response was called. Patient received deep saline suction, with chest PT with helped improve the desaturation. Patient was hypotensive throughout the night. IV fluid was given that bring up his blood pressure from 70 to 90 with MAP > 65. Lactic acid was sent and came back negative. -BCx 06/30 NGTD -s/p Vanco + Zosyn -Ongoing vigilance of recurrence of respiratory infection, more tachycardic , monitor for signs of fever Assessment & Plan (07/13/2022 2:00 AM EST): RESOLVED. Patient admitted with sepsis criteria with HR 101, RR 24, WBC 16.2, hypotension BP 93/78.Of note, recent ICU admit from 01/21-01/31 for septic shock in the setting of PNA and bacteremia which was fluid refractory requiring levophed. Required tobramycin and meropenem that admission for the following MDRO: Respiratory cx 01/22 grew Psuedomonas: resistant only to cipro with intermediate to tobramycin Blood culture 01/21 grew Psuedomonas resistant to cipro, staph haemolyticus, staph auricularis, klebsiella resistant to most abx, intermediate to zosyn, tobramcyin, and sensitive only to TMP-SMX, ertapenem, meropenem, amikacin. Patient initially received vanc/zosyn, escalated to vanc/ceftazidine-avibactam per ID recs. Likely severe sepsis 2/2 PNA given CXR findings and copious secretions, culture history, less likely due to GI illness but he does have liquid stools, history of clindamycin use, coming from facility, and WBC. Suspect more likely pulmonary source. LLL PNA +/- effusion/collapse/atelectasis. 05/02 respiratory cultures grew Meropenem-resistant pseudomonas, ESBL klebsiella. ID following. Staphylococcus species in 1 set Bcx 04/26 likely contaminant. E Faecalis species in 1/4 bottles Bcx 04/30, likely contaminant, grew after patient was on vancomycin. Started course of Meropenem (04/30-05/06), Ceftaz/Avibactam (04/26-04/30), (05/06-05/13), Vancomycin (04/26-05/04), Tobramycin IV (05/06-05/11), Tobramycin Inhaled (05/06-05/12) with lase dose 9/29, Continued to monitor patient off of antibiotics at this point 05/30. Patient spiked fever to 101.7, blood cultures drawn x2, chest x-ray unremarkable, Sputum Cx sent, WBC unremarkable. ID consulted and recommended cefepime if fever returns. Fever resolved 05/30 overnight and returned 05/31 overnight prompting initiation of cefepime (05/31-06/06 ). Patient underwent brochospcopy 06/01 with clearance of thick sputum. 06/29 Patient experienced desat to low 80, with fever spiking, and tachycardia. Rapid response was called. Patient received deep saline suction, with chest PT with helped improve the desaturation. Patient was hypotensive throughout the night. IV fluid was given that bring up his blood pressure from 70 to 90 with MAP > 65. Lactic acid was sent and came back negative. -BCx 06/30 NGTD -s/p Vanco + Zosyn -Ongoing vigilance of recurrence of respiratory infection, more tachycardic , monitor for signs of fever Pleural effusion on left 04/26/2022 Septic shock 01/22/2022 01/31/2022 Hypotension 01/22/2022 08/02/2022 Assessment & Plan (05/22/2022 7:40 AM EDT): Home: Midodrine 10 mg every 8 hours Last admit 01/21-01/31 hypotensive refractory to fluid resuscitation requiring levo in ICU for septic shock secondary to pneumonia. Last TTE 01/25/2022 showed normal BiV size/function, no significant valve disease. - Continue home midodrine 10 mg every 8 hours Leukocytopenia 01/22/2022 01/31/2022 Pancytopenia 07/23/2021 01/31/2022 Assessment & Plan (08/04/2021 4:07 PM EST): Patient with a history of pancytopenia in setting of cancer and previous rituximab maintenance therapy. On presentation within stable range with WBC 4.1, Hb 11.8 (baseline 11), plt 145. Diff significant for lymphopenia, absolute count 300. Pertinently by last flow cytometry 9 months ago: last absolute CD4 147, CD4:CD8 ratio 0.40. New neutropenia to 1.2 on 07/29 likely related to Pyrimethamine. Neutropenia resolved afterwards. Type & Screen Continue cyanacobalamin 1 g IM weekly CBC daily, monitor ANC Decreased Pryimethamine Aspiration pneumonia 11/12/202001/31/ 022 Assessment & Plan (08/07/2021 1:20 PM EST): Patient had a concern for aspiration pneumonia prior to admission given consistently high residuals and emesis while at [facility]. Was given Levofloxacin to be managed as outpatient. On this admission, patient afebrile w/ clear lung sounds and negative chest x ray. Tube feeds were resumed w/ aspiration precautions. On 07/29 overnight was found to be septic with T of 39.7 and HR > 100 w/ one episode of non-bloody emesis. WBC were 8 w/ ANC > 70 from baseline neutropenia the day prior. Full infectious workup pursued at that time demonstrated a normal CXR. Started on IV Cefepime. During rapid/code stroke event of 07/30, CT demonstrated possible aspiration pneumonia on RUL. Repeat CXR was negative. Cefepime was to be completed on 08/02 but was restarted on for ongoing concerns of ongoing aspiration pneumonia, although mucus plugging is more likely. Given ongoing mucus plugging and desaturation, will continue IV Cefepime until 08/09. Restarting tube feeds with nutrition recommendations on low fiber diet and also has pro motility agents to help avoid stasis Continue Aspiration precautions and hold tube feeds for vomiting of residual volumes > 500 Follow Blood Cultures 07/23, 07/29, 07/30, 08/02 - NGTD Hypernatremia 10/08/2020 11/08/2020 Assessment & Plan (10/17/2020 2:04 PM EST): Na intermittently elevated, 148 on 10/15. - monitor daily BMP - FWF 250 cc q6h - s/p D5 1L on 10/08 - NS 100 mL/h for 24 h starting 10/15 RESOLVED Encephalopathy 09/25/2020 11/08/2020 Assessment & Plan (10/15/2020 2:42 PM EST): Persistent AMS since admission. Currently non verbal, following simple commands only (raising hands when asked), moving all extremities spontaneously, no major focal neuro deficit, not able to clear oral secretions, at high risk of aspiration. Patient typically awake and alert but has intermittent episodes of unresponsiveness. He has been treated for [facility] toxo as above. Was monitored on continuous EEG in neuro ICU with potential epileptogenicity arising from the left frontal sharp region on 09/30. Keppra up-titrated to 1.5 g BID, which was subsequently decreased to 1 g BID due to TAMMY. CODE STROKE called on 10/13 due to acute worsening of his mental status. He appeared obtunded and was completely unresponsive to stimuli. This lasted for ~15 minutes; he spontaneously improved but remained below his baseline. His CT head showed a possible small bleed in his pat based on a small hyperdensity that appeared slightly larger on this CT head compared to CT head on 10/10. CTA deferred due to acutely worsening TAMMY. He slowly returned to his baseline mental status in the hours following the CODE STROKE without intervention. His worsened encephalopathy was likely due to either his toxoplasmosis and/or Keppra in the setting of an acutely worsening TAMMY. 10/13 spot EEG showed evidence of mild encephalopathy and subcortical dysfunction, no epileptiform discharges. Neuro rehab evaluated 10/14, recommend intensive speech and language therapy, restful sleep. They also recommend starting continuous EEG if episodes of unresponsiveness become more frequent and to time duration of unresponsive episodes. Music therapy started 10/15 for mental stimulation. - Follow up Keppra level (lab reported ~6 day turn-around time) - Neurosurg following, appreciate recs - treatment for [facility] toxo per [facility] toxoplasmosis section - frequent neuro checks - maintain 1:1 sitter - continue keppra 1 g BID (recommend against tapering given EEG findings and possibility of scarring) - encourage restful sleep - aspiration precautions, pulmonary toileting, oral hygiene - strict NPO, NGT in place, TF only Neutropenic fever 09/23/2020 11/08/2020 Assessment & Plan (10/17/2020 4:41 PM EST): Intermittent fevers since 10/04 while on anti-tox treatment and ppx with negative workup. Started on cefepime due to high-risk for aspiration pneumonia; transitioned to zosyn due to recurrent fevers (10/03-10/07). CXR 10/05 and 10/08 no significant consolidation. 10/05 BCx and UCx NGTD. Zosyn discontinued on 10/07. Fever to 38.1 on 10/11, ANC >1K. Fever to 39.5 on 10/16 with rigors, ANC >1.5K. CXR 10/16 with no significant consolidation. - ID following, appreciate recs - zosyn 3.375 g q8h for 2 days per ID - BCx 10/16 NGTD - UCx 10/16 NGTD - MRSA nasal swab pending (if positive, add vanc) - CMV NDA PCR pending - filgrastrim 480mcg x1 10/17 - ID recommends leucovorin 25mg BID for a few days. Recheck WBC Tuesday and d/c if necessary. - close monitor fever curve and infectious signs/symptoms - aspiration precaution as above - tx for [facility] toxo and ppx as below Acute cystitis without hematuria 12/27/2019 01/31/2022 Mantle cell lymphoma 12/18/2019 022 Assessment & Plan (07/29/2021 2:38 PM EST): History of stage IV mantle cell lymphoma, currently in remission. Initial presentation dating back to 2017, diagnosed by node biopsy 09/2019, bone marrow biopsy and PET/CT staging 11/2019, s/p induction chemotherapy with HyperCVAD 12/18/19 followed by rituximab, deferred autologous stem cell transplant, complicated by UTI with acute kidney injury and switch to rituximab / bendamustine (RB) on 01/21/20, completing 6 cycles induction and 2 cycles maintenance, complicated by [facility] toxoplasmosis on 09/2020 brain biopsy, and Enterobacter aerogenes bacteremia 11/2020, currently off maintenance rituximab for now until CD4 count improves and [facility] toxoplasmosis resolved, now presenting from oncology clinic with Dr. 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 CSF flow cytometry negative for malignant cells. Management as per Acute Encephalopathy section Assessment & Plan (12/10/2020 10:17 PM EDT): Stage IV mantle cell lymphoma with initial MIPI score of 5.5 without any P53 mutation. He received induction chemotherapy with R-HyperCVAD, cycle 1 started 12/27/19. He received two cycles of R-HyperCVAD, which was discontinued in January 2020 after he had infection and TAMMY while on the therapy. He was swithced to rituximab and bendamustine at the time, and received six cycles of this therapy. A bone marrow biopsy after induction therapy showed normocellular bone marrow. He was started on rituximab maintenance therapy in June 2020 with a plan to receiving infusions every two months. His last dose of rituximab was on 08/25/20. - recent follow up with Dr. Jimenez 12/04 - Defer maintenance rituximab for now until CD4 count improves and [facility] toxoplasmosis is resolving - Defer diagnostic and therapeutic LP given his severe anxiety and low [facility] risk - Monitor tumor lysis syndrome labs - Defer autologous stem cell transplant due to social situation: he has no caregiver and has poor functional status - Transfuse for Hgb < 8 and platelets < 20 Assessment & Plan (10/06/2020 3:48 PM EST): Stage IV mantle cell lymphoma with initial MIPI score of 5.5 without any P53 mutation who is s/p induction chemotherapy with HyperCVAD inpatient on 12/18/19 followed by rituximab as outpatient, but had hematuria and UTI with acute kidney injury on it and then switched to bendamustine/rituximab x 5 cycles with planned maintenance of rituximab q2 months x 2 years. - last cycle - rituxan given on 08/25/20 - plan was to continue maintenance rituximab q2 months x 2 years; until 06/2022 - outpatient LP was not completed given his severe anxiety and low [facility] risk - CT C/A/P done inpatient for restaging - IgG level [phone] Assessment & Plan (02/05/2020 11:28 AM EDT): Patient is being treated with rituximab. He has anemia which is multifactorial
--- OUTSIDE RECORDS SUMMARY | 2025-07-14 18:28 | XMS_ITS | Encounter Summary ---
Author Organization [facility] Address [address] [place] [address] Care Team Providers Care Audio Visual Collections Coordinator Name Role Phone Ref, Hasnopcp Primary Care Provider Unavailabl e Encounter Details Date Type Department Care Team (Late st Contact Info) Description 12/03/2019 Lab Requisition [facility] [address] [place] [address] Jonathan Jimenez MD PhD [address] [place] [address] Social History Tobacco Use Types Packs/Day Years [...] Info) Description 07/15/2025 2:00 PM EST Telehealth [facility] [address] [place] [address] Jonathan Jimenez MD PhD [address] [place] [id number] documented as of this encounter Procedures * Due to [place] state law, this organization might not be sharing negative HIV tests. Procedure Name Priority Date/Time Associated Diagnosis Comments TISSUE EXAM Routine 12/03/2019 1:27 PM EDT documented in this encounter Results * Due to [place] state law, this organization might not be sharing negative HIV tests. * Tissue Exam (12/03/2019 1:27 PM EDT) Addendum 2 Immunohistochemistry for P53 shows no definitive abnormal staining within the lymphoid cells. [facility] MANUAL 12/12/2019 2:17 PM EDT [facility] Addendum electronically signed by Adam Fuller MD on 12/12/2019 at 1417 EDT Addendum [id number]: proliferative index, <5% [facility]UAL 12/12/2019 2:17 PM EDT [facility] Addendum electronically signed by Nain Ramirez MD on 12/07/2019 at 1056 EDT Final Diagnosis Review of Outside Slides Received from [facility], [place], [place], Labeled [id number] , Procedure Date 11/16/19: BONE MARROW, BIOPSY AND ASPIRATE: DIAGNOSIS: - 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 - Correlation with clinical, molecular, and cytogenetic findings is warranted. BONE MARROW BIOPSY/CLOT: Cellularity: 60% Megakaryocytes: Adequate Myeloid Series: Normal maturation Erythroid Series: Normal maturation Myeloid:Erythroid Ratio: Normal Infiltrative process: Multiple lymphoid nodules are identified. IMMUNOHISTOCHEMICAL STAINS: CD3: Positive in T cells. CD20: Positive in lymphoid infiltrate. CD5: Positive in lymphoid infiltrate. Cyclin D1: Positive in lymphoid infiltrate. [facility]UAL 12/12/2019 2:17 PM EDT [facility] at 0952 EDT Clinical History Mantle cell lymphoma [facility]UAL 12/12/2019 2:17 PM EDT [facility] Gross Description Client Facility: [facility] Slide Identification: [id number] Number of Glass Slides Received: 14 Number of Blocks Received: 0 Client Pathologist: Diego Bills MD Accompanying Report Received: Yes [facility]UAL 12/12/2019 2:17 PM EDT [facility] Embedded Images [facility] MANUAL 12/12/2019 2:17 PM EDT [facility] Resulting Agency Case was signed out at [facility], Department of Pathology, [facility] 3 CLIA [id number] [facility] MANUAL 12/12/2019 2:17 PM EDT [facility] Report Header Surgical Pathology Report Case: [id number] Authorizing Provider: Jonathan Jimenez MD PhD Collected: 12/03/2019 1327 Ordering Location: [facility] Received: 12/03/2019 1327 [facility] Pathologist: Nain Ramirez MD Specimen: Bone, NOS, Bone Marrow 12/12/2019 2:17 PM EDT [facility] Tissue Specimen from bone / Unknown 12/03/2019 1:27 PM EDT 12/03/2019 1:27 PM EDT us Jonathan Jimenez MD PhD LAB PATHOLOGY/CYTOLOGY DESMOND JARAMILLO Edited Result - Final [facility] [address] [place] [address], documented in this encounter Visit Diagnoses Not on filedocumented in this encounter Additional Health Concerns Infection Onset Date Last Indicated Resolved Time R/O C.diff 10/02/2020 10/02/2020 10/03/2020 11:2 7 AM EST R/O C.diff 10/07/2020 10/07/2020 10/08/2020 5:02 AM EST R/O C.diff 10/16/2020 10/16/2020 10/17/2020 3:13 AM EST COVID-19 Exposure (EQIP) Comment:Per NOAM Faust MD email states, This patient was in a private room and the positive test from yesterday was performed as the HD4 routine screen (inadvertently not done until HD5). As there aren't other patients positive and no known positive staff members, there is no need to consider any other patient exposed and EQIP precautions can be discontinued for all other patients. Will now remove the Equip Precautions after speaking with Dr Loo directly I was instructed to remove the Equip Precautions, which was also stated in his email. 10/25/2020 10/26/2020 10/26/2020 10:22 AM EDT COVID-19 - Suspected infection 11/14/2020 11/14/2020 11/14/2020 [...] documented as of this encounter Care Teams Audio Visual Collections Coordinator Relationship Specialty Start Date End Date Ref, Hasnopcp DO NOT EDIT THIS RECORD VIA PROVIDER ON THE FLY PCP - General Chief Operator Hydroformer 05/29/25 documented as of this encounter
--- OUTSIDE RECORDS SUMMARY | 2025-07-14 18:28 | XMS_ITS | Encounter Summary ---
Author Organization [facility] Address [address] [place] [address] Care Team Providers Care Airport Tower Controller Name Role Phone Ref, Hasnopcp Primary Care Provider Unavailabl e Encounter Details Date Type Department Care Team (Late st Contact Info) Description 12/07/2020 Lab Requisition [facility] [address] [place] [address] Tomy Cleary MD [address] [facility] [address] [place] [address] Encounter for screening for other viral diseases Social History Tobacco Use Types Packs/Day Years Used Date Smoking Tobacco: Never Smokeless Tobacco: Never Sex and Gender Information Value Date Recorded Sex Assigned at Male 07/02/2025 10:46 AM EST Legal Sex Male 3:13 PM EDT Gender Identity Not on file Sexual Orientation Not on file documented as of this encounter Functional Status documented as of this encounter Plan of Treatment Upcoming Encounters Date Type Department Care Team (Late st Contact Info) Description 07/15/2025 2:00 PM EST Telehealth [facility] [address], [place] [id number] Jonathan Jimenez MD PhD [address] [place], [place] [phone] documented as of this encounter Procedures * Due to [place] state law, this organization might not be sharing negative HIV tests. Procedure Name Priority Date/Time Associated Diagnosis Comments COVID-19 PCR FOR SURVEILLANCE OF ASYMPTOMATIC PATIENT Routine 12/07/2020 7:00 AM EDT Encounter for screening for other viral diseases documented in this encounter Results * Due to [place] state law, this organization might not be sharing negative HIV tests. 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 They have not been cleared or approved by the U.S. Food and Drug Administration (FDA). FDA Policy for Diagnostic Tests for Coronavirus Disease-2019 during the Public Health Emergency issued October 29, 2019, is followed. 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
--- OUTSIDE RECORDS SUMMARY | 2025-07-14 18:28 | XMS_ITS | Clinical Summary ---
Author Organization [facility] Address [address] [place] [address] Care Team Providers Care Assistant Manager Pt Name Role Phone Ref, Hasnopcp Primary Care Provider Unavailabl e Allergies No known active allergies Medications bisacodyL (DULCOLAX) 10 mg suppository Insert 1 suppository (10 mg total) into the rectum daily as needed for constipation. 1 Active cyanocobalamin (VITAMIN B12) 1,000 mcg/mL injection Inject 1 mL (1,000 mcg total) into the shoulder, thigh, or buttocks muscle as directed once a week. 1 Active acetaminophen (TYLENOL) 325 mg tablet 650 mg by gastric tube route every 6 hours as needed for pain or fever. Active ferrous sulfate 220 mg (44 mg iron)/5 mL solution Take 44 mg by gastric tube once a day. Active Lactobacillus acidophilus tablet,chewable 2 tablets by peg tube route once a day. Active omeprazole 10 mg/5 mL suspension Take 20 mg by gastric tube every 12 hours. Active ipratropium-albu teroL (DUO-NEB) 0.5-2.5 mg/3 mL nebulizer solution Inhale 3 mL via nebulizer every 4 hours as needed for wheezing or shortness of breath. 2 Active lacosamide (VIMPAT) 50 mg/5 mL solution Take 20 mL (200 mg total) by gastric tube every 12 hours. 2 Active albuterol 2.5 mg/3 mL (0.083%) nebulizer solution Inhale 1 vial (2.5 mg total) via nebulizer every 4 hours as needed for wheezing or shortness of breath. 2 Active guaiFENesin (ROBITUSSIN) 100 mg/5 mL syrup 20 mL (400 mg total) by per G tube route every 8 hours. 2 Active sennosides (SENNA) 528 mg/15 mL syrup syrup Take 10 mL (352 mg total) by gastric tube nightly as needed (constipation). 2 Active chlorhexidine (PERIDEX) 0.12% solution Rinse mouth with 15 mL 2 times a day. Do not swallow. Active selenium 50 mcg tablet Take 1 tablet (50 mcg total) by mouth once a day. 0 3 Active loperamide (IMODIUM) 2 mg capsule 1 capsule (2 mg total) by gastric tube route 4 times a day as needed for diarrhea. 3 Active finasteride (PROSCAR) 5 mg tablet 1 tablet (5 mg total) by per G tube route once a day. 3 Active midodrine (PROAMATINE) 2.5 mg tablet 3 tablets (7.5 mg total) by gastric tube route every 8 hours. 3 Active hbzdd-fivm-NoOYQ -mipwtr-mt-uls (PARESH WITH COLLAGEN) 7-7-1.5 gram powder in packet 1 packet by gastric tube route 2 times a day. 3 Active enoxaparin (LOVENOX) 40 mg/0.4 mL subcutaneous injection Inject 0.4 mL (40 mg total) under the skin daily. 3 Active doxazosin (CARDURA) 1 mg tablet 1 tablet (1 mg total) by gastric tube route once a day. 3 Active atovaquone (MEPRON) 750 mg/5 mL suspension Take 5 mL (750 mg total) by gastric tube every 12 hours. 300 mL 5 3 Active pyrimethamine (DARAPRIM) 25 mg tablet Take 2 tablets (50 mg total) by mouth once a day. Take through G-tube 60 tablet 5 3 Active leucovorin 25 mg tablet Take 1 tablet (25 mg total) by gastric tube route once a day. Take with a full glass of water. 30 tablet 5 3 Active Active Problems Problem Noted Date Diagnosed Date [...] iso poor nutritional status. Baseline Hgb between 9-. Hgb on admit 10.4.BM on 04/26 nonbloody. Home: Ferrous sulfate by G-tube once daily, B12 1000mcg injections q Tuesday -Continue home iron -- continue home B12 - trend CBC Assessment & Plan (07/11/2022 11:28 PM EST): Suspect iso poor nutritional status. Baseline Hgb between 9-. Hgb on admit 10.4.BM on 04/26 nonbloody. [...] frequent saline and deep suction. - Passy [place] Valve trial on 06/15. Valve was tried [...] frequent saline and deep suction. - Passy [place] Valve trial on 06/15. Valve was tried [...] frequent saline and deep suction. - Passy [place] Valve trial on 06/15. Valve was tried [...] frequent saline and deep suction. - Passy [place] Valve trial on 06/15. Valve was tried [...] & Plan (08/03/2021 7:44 PM EST): Per vice president of brand management, patient has been unable to move LUE since ~ 5 prior to admission. At first it was thought to be secondary to bad sleeping position and associated neck spasm. X ray on presentation negative for fracture or acute process. Unclear if MSK vs KNAPSACK SPRAYER etiology. Consulted orthopedics for further evaluation. MRI [...] days concern for recurrent systemic infection vs KNAPSACK SPRAYER infection possibly of recurrent toxoplasmosis vs reactivation of lymphoma with new KNAPSACK SPRAYER metastatic disease. In the ED, VS reassuring, BMP w/o metabolic derangements, CBC w/ pancytopenia and lymphopenia. CSF flow cytometry, viral panel and gram studies all normal. Neurology consulted, EEG was negative. Initial head CT negative for new bleeding or masses. Unfortunately, Brain MRI (07/25) shows multiple new enhancing lesion concerning for recurrence of KNAPSACK SPRAYER toxoplasmosis. Rapid response and code stroke were [...] Keppra 1.25 mg BID Management as per KNAPSACK SPRAYER Toxoplasmosis section Oropharyngeal dysphagia 07/23/2021 Assessment & Plan (08/07/2021 1:21 PM EST): Previously found to have oropharyngeal dysphagia secondary to his encephalopathy dating back to Sep 2020, PEG placed on 10/24 and has since been in place and getting tube feeds at snf. Of note, recent visit to [facility] ED for aspiration event believed to be due to high residuals. Tube feeds have been continued w/ hold for GRV > 500 mL to avoid aspiration pneumonia. Appreciate ATTENDANT CHILD ACTIVITY evaluation to assess for PO med tolerance Continue tube feeds as per nutrition recommendations Management as per Aspiration Pneumonia section Acute hyperactive delirium due to another medica l condition 12/10/2020 Assessment & Plan (12/10/2020 9:13 PM EDT): He was noted to be pulling at lines and tubes in 10/2020 during the hospitalization, likely from delirium in addition to his encephalopathy secondary to his KNAPSACK SPRAYER infection. A low-dose of quetiapine was trialed which had some effect. Psychiatry was consulted for optimal management and recommended trazodone. - Continue trazodone 25 mg twice daily and 50 mg nightly Bacteremia 12/10/2020 Assessment & Plan (12/10/2020 10:24 PM EDT): Patient went to [facility] ED this morning with fever, found to [...] of extensive antibiotic use including clindamycin for KNAPSACK SPRAYER toxo. WBC elevated. No abdominal tenderness on [...] stools and skin breakdown with incotinence, but long term care social worker rectal tube puts him at risk for [...] of extensive antibiotic use including clindamycin for KNAPSACK SPRAYER toxo. WBC elevated. No abdominal tenderness on [...] of extensive antibiotic use including clindamycin for KNAPSACK SPRAYER toxo. WBC elevated. No abdominal tenderness on [...] of extensive antibiotic use including clindamycin for KNAPSACK SPRAYER toxo. WBC elevated. No abdominal tenderness on [...] of extensive antibiotic use including clindamycin for KNAPSACK SPRAYER toxo. WBC elevated. No abdominal tenderness on [...] of extensive antibiotic use including clindamycin for KNAPSACK SPRAYER toxo. WBC elevated. No abdominal tenderness on [...] of extensive antibiotic use including clindamycin for KNAPSACK SPRAYER toxo. WBC elevated. No abdominal tenderness on [...] of extensive antibiotic use including clindamycin for KNAPSACK SPRAYER toxo. WBC elevated. No abdominal tenderness on [...] of extensive antibiotic use including clindamycin for KNAPSACK SPRAYER toxo. WBC elevated. No abdominal tenderness on [...] scheduled reglan transiently with improvement. NGT replaced 3/3. Loose stools resumed 3/ with 5 episodes liquid stool, notably 2 days after starting clindamycin for toxoplasmosis. 3/4 3 loose stools. - C. Diff negative [...] mechanical vest twice daily - Continue cough surgeon assistant, may need to discontinue based on [...] mechanical vest twice daily - Continue cough surgeon assistant, may need to discontinue based on [...] mechanical vest twice daily - Continue cough surgeon assistant, may need to discontinue based on [...] mechanical vest twice daily - Continue cough surgeon assistant, may need to discontinue based on [...] mechanical vest twice daily - Continue cough surgeon assistant, may need to discontinue based on [...] mechanical vest twice daily - Continue cough surgeon assistant, may need to discontinue based on [...] mechanical vest twice daily _ Continue cough surgeon assistant. _ s/p IV Zosyn and Vanco [...] mechanical vest twice daily _ Continue cough surgeon assistant. _ s/p IV Zosyn and Vanco [...] mechanical vest twice daily _ Continue cough surgeon assistant. _ s/p IV Zosyn and Vanco [...] variable O2 requirement since ICU stay. Likely 2/2 small chronic aspiration in the setting of AMS + atelectasis + mucus plugging. CXR 10/05 am neg. 2/23 emesis with concern for possible aspiration. Development of cough without expectoration 3/, resolved 3. - pulmonary toileting and IS as able, [...] consulted for PEG placement as recommended by ATTENDANT CHILD ACTIVITY. PEG was placed on 10/24. - Tube feeds Jevity 1.5, start 15cc, increase 10cc q2h, goal 55cc/hr - Continue aspiration precautions including head of bed at > 45 degrees - consider ATTENDANT CHILD ACTIVITY evaluation Assessment & Plan (10/17/2020 1:31 PM EST): Failed ATTENDANT CHILD ACTIVITY on 10/01, 10/10 and 10/14 in the setting of AMS. - ?PEG with trauma surg when stable - FWF 250 cc q6h - HOB >45%, aspiration precautions - ATTENDANT CHILD ACTIVITY recommends PEG, does not expect regain of swallowing in next few weeks At high risk for aspiration 10/04/2020 KNAPSACK SPRAYER toxoplasmosis 10/02/2020 Assessment & Plan (09/23/2022 5:27 PM EST): History of KNAPSACK SPRAYER toxoplasmosis diagnosed 09/2020, recent admit 08/03/2021 - 09/03/2021 with recurrent infection on MRI. MRI 01/23/2022 stable from prior with ongoing toxo lesions. Follows with Dr. Fransisco OAKLEY. Home: Clindamycin 600 mg by G-tube 4 times a day, leucovorin 25 mg once per day, pyrimethamine 50 mg by G-tube once a day -discontinued clindamycin -ID recommended transition to secondary prophylactic dosing for KNAPSACK SPRAYER toxoplasmosis including the following: leucoverin, pyrimethamine 50 [...] Plan (08/20/2022 6:14 PM EST): History of KNAPSACK SPRAYER toxoplasmosis diagnosed 09/2020, recent admit 08/03/2021 - [...] all possible life-sustaining measures including CPR - ATTENDANT CHILD ACTIVITY consulted to try to work with patient using speech board given that he is consistently following commands and has the ability to interact and make his needs known. [employer] is working on making patient custom speech board. Assessment & Plan (08/19/2022 7:05 PM EST): History of KNAPSACK SPRAYER toxoplasmosis diagnosed 09/2020, recent admit 08/03/2021 - [...] all possible life-sustaining measures including CPR - ATTENDANT CHILD ACTIVITY consulted to try to work with patient using speech board given that he is consistently following commands and has the ability to interact and make his needs known. [employer] is working on making patient custom speech board. Assessment & Plan (08/14/2022 1:53 PM EST): History of KNAPSACK SPRAYER toxoplasmosis diagnosed 09/2020, recent admit 08/03/2021 - [...] all possible life-sustaining measures including CPR - ATTENDANT CHILD ACTIVITY consulted to try to work with patient using speech board given that he is consistently following commands and has the ability to interact and make his needs known. [employer] is working on making patient custom speech board. Assessment & Plan (08/13/2022 4:57 PM EST): History of KNAPSACK SPRAYER toxoplasmosis diagnosed 09/2020, recent admit 08/03/2021 - [...] all possible life-sustaining measures including CPR - ATTENDANT CHILD ACTIVITY consulted to try to work with patient using speech board given that he is consistently following commands and has the ability to interact and make his needs known. [employer] is working on making patient custom speech board Assessment & Plan (08/12/2022 9:18 PM EST): History of KNAPSACK SPRAYER toxoplasmosis diagnosed 09/2020, recent admit 08/03/2021 - [...] all possible life-sustaining measures including CPR - ATTENDANT CHILD ACTIVITY consulted to try to work with patient using speech board given that he is consistently following commands and has the ability to interact and make his needs known. [employer] is working on making patient custom speech board. Assessment & Plan (07/15/2022 9:48 PM EST): History of KNAPSACK SPRAYER toxoplasmosis diagnosed 09/2020, recent admit 08/03/2021 - [...] for all possible life-sustaining measures including CPR -ATTENDANT CHILD ACTIVITY consult placed to try to work with patient using speech board given that he is consistently following commands and has the ability to interact and make his needs known. [employer] is working on making patient custom speech board. Assessment & Plan (07/15/2022 12:56 AM EST): History of KNAPSACK SPRAYER toxoplasmosis diagnosed 09/2020, recent admit 08/03/2021 - [...] for all possible life-sustaining measures including CPR -ATTENDANT CHILD ACTIVITY consult placed to try to work with patient using speech board given that he is consistently following commands and has the ability to interact and make his needs known. [employer] is working on making patient custom speech board. Assessment & Plan (07/13/2022 10:53 PM EST): History of KNAPSACK SPRAYER toxoplasmosis diagnosed 09/2020, recent admit 08/03/2021 - [...] for all possible life-sustaining measures including CPR -ATTENDANT CHILD ACTIVITY consult placed to try to work with patient using speech board given that he is consistently following commands and has the ability to interact and make his needs known. [employer] is working on making patient custom speech board. Assessment & Plan (08/07/2021 9:01 AM EST): History of toxoplasmosis with KNAPSACK SPRAYER involvement diagnosed 09/2020 via MRI brain and [...] is intraparenchymal. Furthermore, since starting aggressive anti KNAPSACK SPRAYER toxoplasmosis treatment patient's baseline status has improved. Due to concerns for possible neutropenia, Pyrimethamine was decreased. Mental status continues to decrease, started on dexamethasone for potential KNAPSACK SPRAYER swelling. Per ID recommendations, would need repeat [...] 09/03) PT evaluation Per reports from pt's snf, they wont be able to carry the [...] negative. Cysticercosis IgG pending. Initially on full KNAPSACK SPRAYER coverage for encephalitis and bacterial/fungal meningitis. On [...] EST): Pancytopenia in the setting of immunosuppression 2/2 maintenance rituxan and B12 deficiency (09/28: 242). [...] fatty casts and 1 cellular cast. ANCA, MATTY and complements were normal. Renal function continues [...] maintenance therapy. Course has been complicated by KNAPSACK SPRAYER toxo as per separate problem. - Appreciate ongoing oncology input - Case was discussed with Dr. Tony casey, requested for CD4 count resulted at 126, significantly reduced immunosupression Assessment & Plan (08/20/2022 6:15 PM EST): Remote history of stage IV mantle cell lymphoma, currently in remission. Diagnosed 10/12/2019. Follows with Dr. Jonathan Jimenez. Started on hyper CVAD, transitioned to Rituximab/Bendamustine due to TAMMY. Not currently on any cancer directed therapy or maintenance therapy. Course has been complicated by KNAPSACK SPRAYER toxo as per separate problem. - Appreciate [...] maintenance therapy. Course has been complicated by KNAPSACK SPRAYER toxo as per separate problem. - Appreciate [...] maintenance therapy. Course has been complicated by KNAPSACK SPRAYER toxo as per separate problem. - Appreciate ongoing oncology input - Case was discussed with Dr. Tony casey, requested for CD4 count, resulted at 126, significantly reduced Assessment & Plan (08/12/2022 9:17 PM EST): Remote history of stage IV mantle cell lymphoma, currently in remission. Diagnosed 10/12/2019. Follows with Dr. Jonathan Jimenez. Started on hyper CVAD, transitioned to Rituximab/Bendamustine due to TAMMY. Not currently on any cancer directed therapy or maintenance therapy. Course has been complicated by KNAPSACK SPRAYER toxo as per separate problem. - Appreciate [...] maintenance therapy. Course has been complicated by KNAPSACK SPRAYER toxo as per separate problem. -Appreciate ongoing [...] maintenance therapy. Course has been complicated by KNAPSACK SPRAYER toxo as per separate problem. -Appreciate ongoing [...] maintenance therapy. Course has been complicated by KNAPSACK SPRAYER toxo as per separate problem. -Appreciate ongoing [...] History of seizures in the setting of KNAPSACK SPRAYER toxoplasmosis. Home: Lacosamide 200 mg every 12 hours - Continue home Lacosamide 200 mg total by G-tube every 12 hours Assessment & Plan (08/20/2022 6:14 PM EST): History of seizures in the setting of KNAPSACK SPRAYER toxoplasmosis. Home: Lacosamide 200 mg every 12 hours - Continue home Lacosamide 200 mg total by G-tube every 12 hours Assessment & Plan (08/19/2022 7:05 PM EST): History of seizures in the setting of KNAPSACK SPRAYER toxoplasmosis. Home: Lacosamide 200 mg every 12 hours - Continue home Lacosamide 200 mg total by G-tube every 12 hours Assessment & Plan (08/14/2022 1:53 PM EST): History of seizures in the setting of KNAPSACK SPRAYER toxoplasmosis. Home: Lacosamide 200 mg every 12 hours - Continue home Lacosamide 200 mg total by G-tube every 12 hours Assessment & Plan (08/13/2022 4:57 PM EST): History of seizures in the setting of KNAPSACK SPRAYER toxoplasmosis. Home: Lacosamide 200 mg every 12 hours - Continue home Lacosamide 200 mg total by G-tube every 12 hours. Assessment & Plan (08/12/2022 9:19 PM EST): History of seizures in the setting of KNAPSACK SPRAYER toxoplasmosis. Home: Lacosamide 200 mg every 12 hours - Continue home Lacosamide 200 mg total by G-tube every 12 hours Assessment & Plan (07/15/2022 9:53 PM EST): History of seizures in the setting of KNAPSACK SPRAYER toxoplasmosis Home: Lacosamide 200 mg every 12 hours - Continue home lacosamide 200 mg total by G-tube every 12 hours Assessment & Plan (04/26/2022 9:28 PM EDT): History of seizures in the setting of KNAPSACK SPRAYER toxoplasmosis Home: Lacosamide 200 mg every 12 hours - Continue home lacosamide 200 mg total by G-tube every 12 hours Resolved Problems Problem Noted Date Diagnosed Date [...] pyelo. -s/p 3 days remdesivir -on day 03/24 decadron -remains in isolation precautions -note: Discussed [...] daily, monitor ANC Decreased Pryimethamine Aspiration pneumonia 11/12/2020 022 Assessment & Plan (08/07/2021 1:20 PM EST): Patient had a concern for aspiration pneumonia prior to admission given consistently high residuals and emesis while at [place]. Was given Levofloxacin to be managed as [...] of unresponsiveness. He has been treated for KNAPSACK SPRAYER toxo as above. Was monitored on continuous [...] Neurosurg following, appreciate recs - treatment for KNAPSACK SPRAYER toxo per KNAPSACK SPRAYER toxoplasmosis section - frequent neuro checks - [...] for 2 days per ID - BCx / NGTD - UCx / NGTD - MRSA nasal swab pending (if positive, add vanc) - CMV NDA PCR pending - filgrastrim 480mcg x1 10/17 - ID recommends leucovorin 25mg BID for a few days. Recheck WBC Tuesday and d/c if necessary. - close monitor fever curve and infectious signs/symptoms - aspiration precaution as above - tx for KNAPSACK SPRAYER toxo and ppx as below Acute cystitis [...] induction and 2 cycles maintenance, complicated by KNAPSACK SPRAYER toxoplasmosis on 09/2020 brain biopsy, and Enterobacter aerogenes bacteremia 11/2020, currently off maintenance rituximab for now until CD4 count improves and KNAPSACK SPRAYER toxoplasmosis resolved, now presenting from oncology clinic with Dr. Jimenez with concern for altered mental status from baseline over the past 2-5 days concern for recurrent systemic infection vs KNAPSACK SPRAYER infection possibly of recurrent toxoplasmosis vs reactivation of lymphoma with new KNAPSACK SPRAYER metastatic disease. CSF flow cytometry negative for [...] for now until CD4 count improves and KNAPSACK SPRAYER toxoplasmosis is resolving - Defer diagnostic and therapeutic LP given his severe anxiety and low KNAPSACK SPRAYER risk - Monitor tumor lysis syndrome labs [...] completed given his severe anxiety and low KNAPSACK SPRAYER risk - CT C/A/P done inpatient for restaging - IgG level 506 Assessment & Plan (02/05/2020 11:28 AM EDT): Patient is being treated with rituximab. He has anemia which is multifactorial Immunizations Immunization Administration Dates Next Due Influenza, Injectable, Quadr ivalent, Contains Preservative 07/23/2019 Influenza, Injectable, Quadrivalent, Preservativ e Free 09/27/2022 Family History Medical History Relation Name Comments Hypertension Father Emphysema Mother Relation Name Status Comments Father Alive Mother Social History Tobacco Use Types Packs/Day Years Used Date Smoking Tobacco: Never Smokeless Tobacco: Never Alcohol Use Standard Drinks/Week Comments Defer 0 (1 standard drink = 0.6 oz pur e alcohol) Sex and Gender Information Value Date Recorded Sex Assigned at Male 07/02/2025 10:46 AM EST Legal Sex Male 3:13 PM EDT Gender Identity Not on file Sexual Orientation Not on file Last Filed Vital Signs Vital Sign Reading Time Taken Comments Blood Pressure 109/71 09/27/2022 6:01 AM EST Pulse 101 09/27/2022 6:01 AM EST Temperature 36.8 C (98.2 F) 09/27/2022 6:01 AM EST Respiratory Rate 20 09/27/2022 6:01 AM EST Oxygen Saturation 97% 09/27/2022 6:01 AM EST Inhaled Oxygen Concentration - - Weight 64.8 kg (142 lb 13.7 oz) 09/27/2022 6:01 AM EST Height 172.7 cm (5' 7.99 ) 06/23/2022 1 2:13 PM EST Body Mass Index 21.73 06/23/2022 12:13 PM EST Plan of Treatment Upcoming Encounters Date Type Department Care Team (Late st Contact Info) Description 07/15/2025 2:00 PM EST Telehealth [facility] [address] [place] [id number] Jonathan Jimenez MD PhD [address] [place] [id number] Health Maintenance Due Date Last Done Comments Cologuard 1972 Colonoscopy 1972 Sigmoidoscopy 1972 COVID-19 Vaccine (#1) 06/10/1973 Hepatitis B Vaccines (1 of 3 - 19+ 3-dose series) 12/10/1991 Pneumococcal Vaccine: 50+ Ye ars (1 of 2 - PCV) 12/10/1991 Zoster Vaccines (1 of 2) 12/10/1991 DTaP,Tdap,and Td Vaccines (1 - Tdap) 1994 Colon Cancer Screening 12/19/2020 FOBT / Fit Test 12/19/2020 12/20/2019, 12/19/2019 Basic Metabolic Panel 09/27/2023 09/27/2022 , 09/26/2022, 09/25/2022, Additional history exists Alcohol/Substance Use Screening 08/15/2024 Depression Screening and Follow-Up 08/15/2024 Social Drivers of Health Sara ual Screening 08/15/2024 Influenza Vaccine (#1) 2025 09/27/2022, 2018 Hepatitis C Screening Completed 08/07/2021, 021 HIV Screening Completed 07/12/2022, 06/15, 03/01/2022, Additional history exists Medical Devices Implanted Type Area Grain Cleaner And Transfer Operator Device Identifier Shelf Expiration Date Model / Serial / Lot Matrix Graft Dural Substitute [id number] Duragen - Sna - [id number] Implanted:Qty: 1 on 09/25/2020 by Rosalind Lomeli MD at [facility] Graft Left: Frontal Lobe [employer] 02/11/2023 [id number] / NA / [id number] Cover [place] Hole Low Profile With Tab 10mm Morris Neuro Iii - [id number] Implanted:Qty: 1 on 09/25/2020 by Rosalind Lomeli MD at [facility] Plate Left: Cranial MARK [id number] / / Plate Dogbone Standard Low Profile Without Tab 2 Hole 0.4mm Morris Neuro Iii - [id number] Implanted:Qty: 2 on 09/25/2020 by Rosalind Lomeli MD at [facility] Plate Left: Cranial MARK [id number] / / Screw Axial Stability Self-Drilling [id number] Morris Neuro Iii - [id number] Implanted:Qty: 6 on 09/25/2020 by Rosalind Lomeli MD at [facility] Screw Left: Cranial MARK [id number] / / Procedures * Due to [place] [employer] law, this organization might not be sharing negative HIV tests. Procedure Name Priority Date/Time Associated Diagnosis Comments BASIC METABOLIC PANEL Routine 09/27/2022 5:54 AM EST CD4 COUNTS Routine 07/12/2022 4:15 AM EST HEPATITIS C ANTIBODY W/REFLEX TO HCV RNA, QUANTITATIVE PCR Timed 08/07/2021 8:22 PM EST POCT OCCULT BLOOD STOOL SCREENING (GUAIAC), NON-INTERFACED Routine 12/20/2019 11:53 AM EDT from Last 3 Months or Most Recently Relevant to Health Maintenance Results * Due to [place] law, this organization might not be sharing negative HIV tests. * (ABNORMAL) Basic Metabolic Panel (09/27/2022 5:54 AM EST) NA 140 135 - 145 mmol/L 09/27/2022 6:44 AM EST [facility] K 3.7 3.5 - 5.3 mmol/L 09/27/2022 6:44 AM EST [facility] Cl 101 97 - 110 mmol/L 09/27/2022 6:44 AM EST [facility] CO2 31 24 - 32 mmol/L 09/27/2022 6:44 AM EST [facility] BUN 26(H) 7 - 23 mg/dL 09/27/2022 6:44 AM EST [facility] Creatinine 0.82 0.60 - 1.30 mg/dL 09/27/2022 6:44 AM EST [facility] Glucose 130(H) 70 - 99 mg/dL 09/27/2022 6:44 AM EST [facility] Calcium 8.8 8.7 - 10.7 mg/dL 09/27/2022 6:44 AM EST [facility] Anion Gap 8 5 - 15 09/27/2022 6:44 AM EST [facility] eGFR >90 >=90 mL/min/1. 73m2 09/27/2022 6:44 AM EST [facility] Comment: Estimated Glomerular Filtration Rate (GFR) calculated using the CKD-EPI refit equation. The different stages of CKD form a continuum. The stages of CKD are classified as follows : Stage 1: Normal or increased GFR (>90 mL/min/1.73 m2) Stage 2: Mild reduction in GFR (60-89 mL/min/1.73 m2) Stage 3a: Moderate reduction in GFR (45-59 mL/min/1.73 m2) Stage 3b: Moderate reduction in GFR (30-44 mL/min/1.73 m2) Stage 4: Severe reduction in GFR (15-29 mL/min/1.73 m2) Stage 5: Kidney failure (GFR < 15 mL/min/1.73 m2 or dialysis) Blood Implantable venous catheter submitted as specimen / Unknown Venipuncture / Unknown 09/27/2022 5:54 AM EST 09/27/2022 6:17 AM EST us Velvet Horvath MD LAB BLOOD ORDERABLES Final Result [facility] [address] [place] [address], * (ABNORMAL) T-helper cells (CD4) count (07/12/2022 4:15 AM EST) %CD3 75.6 58.0 - 87.0 % 07/12/2022 9:49 AM EST [facility] %CD3+CD4+ 15.6(L) 32.0 - 64.0 % 07/12/2022 9:49 AM EST [facility] Absolute CD4 126(L) 370 - 1,540 cells/u L 07/12/2022 9:49 AM EST [facility] %CD3+CD8+ 58.4(H) 12.0 - 45.0 % 07/12/2022 9:49 AM EST [facility] CD4:CD8 Ratio 0.26(L) 0.80 - 5.00 07/12/2022 9:49 AM EST [facility] References aMnnie Johnston. Ph.D. et al. Guidelines for Single-Platform Absolute CD4+ T-Cell Determinations With CD45 Gating for Persons Infected with Human Immunodeficiency Virus. National Center for Infectious Diseases, CDC. MMWR. 07/12/2022 9:49 AM EST [facility] Blood Structure of peripheral vein / Unknown Venipuncture / Unknown 07/12/2022 4:15 AM EST 07/12/2022 4:24 AM EST us Barby Lawrence MD LAB FLOW CYTOMETRY ORDERA BLES Final Result [facility] [employer] [facility] [address] [place] [id number], * Hepatitis C Antibody w/Reflex to PCR (08/07/2021 8:22 PM EST) Hepatitis C Antibody NON-REACT PHILLIP NON-REACT PHILLIP 08/10/2021 10:34 PM EST [facility] Signal To Cut-Off 0.01 <1.00 08/10/2021 10:34 PM EST [facility] Comment: HCV antibody was non-reactive. There is no laboratory evidence of HCV infection. In most cases, no further action is required. However, if recent HCV exposure is suspected, a test for HCV RNA (test code 09570) is suggested. For additional information please refer to http://education.Scalix/faq/UDL91m7 (This link is being provided for informational/ educational purposes only.) Blood Structure of peripheral vein / Unknown Venipuncture / Unknown 08/07/2021 8:22 PM EST 08/07/2021 9:10 PM EST Narrative [facility] - 08/10/2021 10:34 PM EST [facility] Received Date:[id number] Joann FOSTER LAB BLOOD ORDERABLES Final Result [facility] [address] [facility] [address], [place] [address], [place] [phone] [employer] [facility] [address] [facility] [address], [place] [address], * POCT Occult Blood Stool (GUAIAC) (12/20/2019 11:53 AM EDT) Internal Positive Control Pass Yes Internal Negative Control Pass Yes BLOOD, STOOL, MANUAL Negative Negative Stool 12/20/2019 11:5 3 AM EDT Jonathan Jimenez MD PhD POINT OF CARE TEST ORDERABL ES Final Result from Last 3 Months or Most Recently Relevant to Health Maintenance Additional Health Concerns Infection Onset Date Last Indicated 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 08/04/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 01/21/2022 08/04/2022 Insurance INSTITUTION [facility] Advance Directives Documents on File Type Date Recorded Patient Fish Technologist Expl anation MOLST/POLST 01/31/2022 7:40 PM 11-03-2021 Health Care Proxy 01/31/2022 7:40 PM 09-22 Health Care Proxy 01/31/2022 7:40 PM Incap acity 2021 Health Care Proxy 09/30/2020 7:36 AM Cornelius Johnson 09/22/20 Health Care Proxy 09/28/2020 6:58 AM 09-22 Health Care Proxy 12/22/2019 7:30 AM 12/21/19 * Full Code (Latest Code Status on File) Date Activated Date Inactivated Comments 04/26/2022 6:28 PM 09/27/2022 1:40 PM * Full Code Date Activated Date Inactivated Comments 01/22/2022 4:22 AM 01/31/2022 3:00 PM * Full Code Date Activated Date Inactivated Comments 01/21/2022 11:43 PM 01/22/2022 4:22 AM * Full Code Date Activated Date Inactivated Comments 07/23/2021 8:32 PM 09/10/2021 9:42 PM * Full Code Date Activated Date Inactivated Comments 12/10/2020 10:19 PM 12/20/2020 6:20 PM Healthcare Agents on File Name Relationship Healthcare Agent Relationshi p Communication Cornelius Johnson Friend Health Care Agent Care Teams Assistant Manager Pt Relationship Specialty Start Date End Date Ref, Hasnopcp DO NOT EDIT THIS RECORD VIA PROVIDER ON THE FLY PCP - General Kitman 05/29/25
--- OUTSIDE RECORDS SUMMARY | 2025-07-14 18:28 | XMS_ITS | Encounter Summary ---
Author Organization [facility] Address [address] [place] [address] Care Team Providers Care Telephone Supervisor Name Role Phone Ref, Hasnopcp Primary Care Provider Unavailabl e Encounter Details Date Type Department Care Team (Late st Contact Info) Description 12/08/2020 Lab Requisition [facility] [address] [place] [address] Tomy Cleary MD [address] [facility] [address] [place] [address] Encounter for screening for other viral diseases [...] Info) Description 07/15/2025 2:00 PM EST Telehealth [facility] [address] [place], [place] [phone] Jonathan Jimenez MD PhD [address] [place], [place] [phone] documented as of this encounter Procedures * Due to [place] state law, this organization might not be sharing negative HIV tests. Procedure Name Priority Date/Time Associated Diagnosis Comments COVID-19 PCR FOR SURVEILLANCE OF ASYMPTOMATIC PATIENT Routine 12/08/2020 10:25 AM EDT Encounter for screening for other viral diseases documented in this encounter Results * Due to [place] state law, this organization might not be sharing negative HIV tests. * COVID-19 PCR for Surveillance of Asymptomatic Patient, MAINTENANCE TEAM LEADER/OP/Saliva (12/08/2020 10:25 AM EDT) SARS CoV 2 RNA, RT PCR Not Detected Not Detected THERMOF HER QUANT STUDIO 12/08/2020 8:58 PM EDT [facility] [employer] [facility] Comment:A Not Detected (Nega [...] Swab Specimen from nasopharyngeal structure / Unknown 12/08/2020 10:25 AM EDT 12/08/2020 1:27 PM EDT Narrative [facility] - 12/08/2020 8:58 PM EDT These tests were developed, validated, and their performance characteristics determined by the Molecular Virology Laboratory at [facility] under CLIA [id number]. They have not been cleared or approved by the U.S. Food and Drug Administration (FDA). FDA Policy for Diagnostic Tests for Coronavirus Disease-2019 during the Public Health Emergency issued October 29, 2019, is followed. us Tomy Cleary MD LAB BODY FLUIDS AND STOOLS ORDER RUSTY Final Result [facility] [employer] [facility] [address] [place] [address], [place] documented in this encounter Visit Diagnoses [...] documented as of this encounter Care Teams Telephone Supervisor Relationship Specialty Start Date End Date Ref, Genesis DO NOT EDIT THIS RECORD VIA PROVIDER ON THE FLY PCP - General Textile Technical Officer 05/29/25 documented as of this encounter
--- OUTSIDE RECORDS SUMMARY | 2025-07-14 18:28 | XMS_ITS | Encounter Summary ---
Author Organization [facility] Address [address] [place] [address] Care Team Providers Care Air Brake Adjuster Name Role Phone Ref, Hasnopcp Primary Care Provider Unavailabl e Encounter Details Date Type Department Care Team (Late st Contact Info) Description 09/25/2020 Documentation [facility] Social Work Department [address] [place] [address] Yamile Hernandez LICSW Social History Tobacco Use Types Packs/Day Years [...] Info) Description 07/15/2025 2:00 PM EST Telehealth [facility] [address] [place] [address] Jonathan Jimenez MD PhD [address] [place] [address] documented as of this encounter Visit Diagnoses Not on filedocumented in this encounter Additional Health Concerns Infection Onset Date Last Indicated Resolved Time R/O C.diff 10/02/2020 10/02/2020 10/03/2020 11:2 7 AM EST R/O C.diff 10/07/2020 10/07/2020 10/08/2020 5:02 AM EST R/O C.diff 10/16/2020 10/16/2020 10/17/2020 3:13 AM EST COVID-19 Exposure (EQIP) Comment:Per Dr Anil Loo, NOAM MAHMOOD email states, This patient was in a [...] documented as of this encounter Care Teams Air Brake Adjuster Relationship Specialty Start Date End Date Ref, Haselvi DO NOT EDIT THIS RECORD VIA PROVIDER ON THE FLY PCP - General Perforator Operator Oil Well 05/29/25 documented as of this encounter
--- OUTSIDE RECORDS SUMMARY | 2025-07-14 18:28 | XMS_ITS | Encounter Summary ---
Author Organization [facility] Address [address] [place] [address] Care Team Providers Care Identification Clerk Name Role Phone Ref, Hasnopcp Primary Care Provider Unavailabl e Encounter Details Date Type Department Care Team (Late st Contact Info) Description 09/23/2020 Orders Only [facility] [address] [place] [address] Shirley Bowens, PharmD [address] [place] [address] Social History Tobacco Use Types Packs/Day Years [...] Info) Description 07/15/2025 2:00 PM EST Telehealth [facility] [address] [place] [address] Jonathan Jimenez MD PhD [address] [place] [address] documented as of this encounter Visit Diagnoses [...] 04/26/2022 5:28 PM EDT R/O C.diff 04/26/2022 04/26/202204/27/2022 8:48 AM EDT COVID-19 - Confirmed infecti [...] documented as of this encounter Care Teams Identification Clerk Relationship Specialty Start Date End Date Ref, Hasnopcp DO NOT EDIT THIS RECORD VIA PROVIDER ON THE FLY PCP - General Coin Collector 05/29/25 documented as of this encounter
--- OUTSIDE RECORDS SUMMARY | 2025-07-14 18:28 | XMS_ITS | Clinical Summary ---
Author Organization [facility] Address [address] [facility] [address] [place] [address] Care Team Providers Care Filling Hauler Weaving Name Role Phone Unavailable Primary Care Provider [...] 1972 HIV Screening 1972 Lipid Panel 1972 Sigmoidoscopy 1972 Disability Screening 1972 COVID-19 Vaccine (#1) 1977 Alcohol/Substance Use Screening 1984 Tobacco Screening 1984 Family Planning (PISQ) 12/10/1987 Hepatitis C Screening 1990 DTaP/Tdap/Td Vaccines (1 - Tdap) 12/10/1991 Hepatitis B Vaccines (1 of 3 - 19+ 3-dose series) 12/10/1991 Pneumococcal Vaccine: 50+ Ye ars (1 of 2 - PCV) 12/10/1991 Zoster Vaccines (1 of 2) 12/10/1991 Influenza Vaccine (#1) 2025 RSV Patients and Pa tients Aged [...]
--- OUTSIDE RECORDS SUMMARY | 2025-07-14 18:28 | XMS_ITS | Encounter Summary ---
Author Organization [facility] Address [address] [place] [address] Care Team Providers Care Business Representative Name Role Phone Ref, Hasnopcp Primary Care Provider Unavailabl e Encounter Details Date Type Department Care Team (Late st Contact Info) Description 11/18/2020 Lab Requisition [facility] [address] [place] [address] Tomy Cleary MD [address] [facility] [address] [place] [address] Encounter for screening for other viral diseases [...] Info) Description 07/15/2025 2:00 PM EST Telehealth [facility] [address] [place], [place] [phone] Jonathan Jimenez MD PhD [address] [place], [place] [phone] documented as of this encounter Procedures * Due to [place] state law, this organization might not be sharing negative HIV tests. Procedure Name Priority Date/Time Associated Diagnosis Comments COVID-19 PCR FOR SURVEILLANCE OF ASYMPTOMATIC PATIENT Routine 11/18/2020 8:00 AM EDT Encounter for screening for other viral diseases documented in this encounter Results * Due to [place] state law, this organization might not be sharing negative HIV tests. * COVID-19 PCR for Surveillance of Asymptomatic Patient, PROCESS SAFETY ENGINEER/OP/Saliva (11/18/2020 8:00 AM EDT) SARS CoV 2 RNA, RT PCR Not Detected Not Detected THERMOFIS HER QUANT STUDIO 11/18/2020 6:46 PM EDT [facility] Comment:A Not Detected [...] should be considered. Swab (Naso- and/or Oropharyngeal) 11/18/2020 8:00 AM EDT 11/18/2020 12:11 PM EDT Narrative [facility] - 11/18/2020 6:46 PM EDT These tests were developed, validated, and their performance characteristics determined by the Molecular Virology Laboratory at [facility] under CLIA [id number]. They have not been cleared or approved by the U.S. Food and Drug Administration (FDA). FDA Policy for Diagnostic Tests for Coronavirus Disease-2019 during the Public Health Emergency issued October 29, 2019, is followed. us Tomy Cleary MD LAB BODY FLUIDS AND STOOLS ORDER RUSTY Final Result [facility] [address] [place] [address], [place] documented in this encounter Visit Diagnoses [...] documented as of this encounter Care Teams Business Representative Relationship Specialty Start Date End Date Ref, Hasnopcp DO NOT EDIT THIS RECORD VIA PROVIDER ON THE FLY PCP - General Mold Clamper 05/29/25 documented as of this encounter
--- OUTSIDE RECORDS SUMMARY | 2025-07-14 18:28 | XMS_ITS | Encounter Summary ---
Author Organization [facility] Address [address] [place] [address] Care Team Providers Care Format Proofreader Name Role Phone Ref, Hasnopcp Primary Care Provider Unavailabl e Encounter Details Date Type Department Care Team (Late st Contact Info) Description 10/02/2020 Ophth Exam [facility] [address] [place] [id number] Blane Huff MD [address] [place] [address] [place] [address] Social History Tobacco Use Types Packs/Day Years [...] Info) Description 07/15/2025 2:00 PM EST Telehealth [facility] [address] [place], [place] [phone] Jonathan Jimenez MD PhD [address] [place], [place] [phone] documented as of this encounter Visit Diagnoses [...] documented as of this encounter Care Teams Format Proofreader Relationship Specialty Start Date End Date Ref, Hasnomicahp DO NOT EDIT THIS RECORD VIA PROVIDER ON THE FLY PCP - General Director Digital Marketing 05/29/25 documented as of this encounter
[2025-07-14 18:35] LABS: VBG HCO3 21 mmol/L (22-26); VBG O2 % Saturation 99.0 %
[2025-07-14 18:37] LABS: Appearance Urine Turbid; Glucose Urine UA Negative (Negative); PH 5.5 (5.0-9.0); Specific Gravity - Urine 1.015 (1.005-1.025); UMIC TRIGGER UACC YES
[2025-07-14 18:39] LABS: Hematocrit 36.7 % (42.0-52.0); Hemoglobin 12.3 g/dl (14.0-18.0); Mean Corpuscular HGB Conc 33.5 g/dl (31.0-36.0); Mean Corpuscular Hemoglobin 31.4 pg (27.0-33.0); Mean Corpuscular Volume 93.6 fL (80.0-98.0); NRBC Abs Auto 0.000 X10*3/uL (0.0-0.012); NRBC Pct Auto 0.0 /100WBC (0.0-0.2); Platelet Count 321 X10*3/uL (160-400); Red Blood Count 3.92 X10*6/uL (4.60-5.80); White Blood Count 24.9 X10*3/uL (4.8-10.8)
[2025-07-14 18:48] LABS: Venous Blood Gas Refer to POC result
[2025-07-14 18:55] LABS: Troponin-I High Sensitivity < 2.7 ng/L (<3.5-35.0)
[2025-07-14 18:56] LABS: UACC Culture Trigger YES
[2025-07-14 18:59] LABS: Alanine Aminotransferase 51 U/L (0-40); Albumin Level 3.7 g/dL (3.5-5.0); Alkaline Phosphatase 246 U/L (39-117); Anion Gap 20 (12-20); Aspartate Amino Transferase 36 U/L (5-37); Blood Urea Nitrogen 69 mg/dL (9-16); Calcium 9.0 mg/dL (8.4-10.2); Carbon Dioxide 23 mmol/L (22-29); Chloride 93 mmol/L (96-108); Creatinine Clr Calc Pharmacy 19.0; Estimated Glomerular Filt Rate 15; Potassium 3.7 mmol/L (3.3-5.1); Sodium 132 mmol/L (135-145); Total Protein 7.3 g/dL (6.5-8.0)
[2025-07-14 19:12] LABS: Resp Syncy Virus RNA Qual PCR NEGATIVE (Negative); SARS COV2 PCR INHOUSE NEGATIVE (Negative)
--- NOTE | 2025-07-14 19:15 | PC.NURSE ---
Patient difficult stick, this rn able to place 22g and 20g in right hand to obtain labs/cultures
[2025-07-14 19:56] LABS: Lymphocytes Absolute Manual 0.2 X10*3/uL (1.2-4.9); Lymphocytes Percent Manual 1 % (20-40); Monocytes Absolute Manual 1.2 X10*3/uL (0.1-1.2); Monocytes Percent Manual 5 % (2-11); Neutrophils Percent Manual 94 % (45-73)
[2025-07-14 19:57] LABS: RBC Morphology NORMAL
[2025-07-14 19:58] LABS: Band Neutrophils Percent 0 % (3-5); Neutrophils Absolute Manual 23.4 X10*3/uL (2.0-8.3)
[2025-07-14 20:25] LABS: Reflex Lactate? Lactic Acid Added
[2025-07-14 20:59] LABS: ~Lactic Acid-LAB USE ONLY 1.5 mmol/L (0.5-2.0)
--- NOTE | 2025-07-14 21:45 | PC.NURSE ---
Called [facility] and spoke with RT Prosper who states pts is on 5L, 28% via trach collar at baseline. made aware.
--- NOTE | 2025-07-14 23:48 | PM.IMHP ---
History of Present Illness Date of Service: 07/14/25 Attending physician on admission: Daniel Redding Chief Complaint: hypoxia Patient is a 54-year-old Kenyan-speaking male with a past medical history significant for stage IV mantle cell lymphoma (currently in remission), toxoplasmosis with recurrence and now on suppressive therapy, seizure disorder, acute on chronic respiratory failure with tracheostomy, CKD, normocytic anemia, GERD, G-tube dependent, history osteomyelitis and history of C diff colitis, who presented to the ED due to fever, vomiting and hypoxia. The patient was reportedly up to 104 degrees F with vomiting for the past 2 days and purulent urine output. He also has reportedly had diarrhea with a history of recent C diff. the patient is unable to provide any history at this time due to metabolic encephalopathy. He is currently vomiting through his trach tube while evaluated bedside with RT present suctioning. 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 Rectal bleeding H/O: RCT (rotator cuff tear) Depression Appendicitis Chronic pain Kidney stone Mantle cell lymphoma Family History Mother COPD (chronic obstructive pulmonary disease) Sister Colon cancer Surgical History History of appendectomy Social History Household Members: None Housing: Long-Term Housing Other:: [facility] Do you presently have visiting nurse or other home services: No Alcohol intake: unknown Comment: non ambulatory patient Patient Tobacco Use Status: Never used Tobacco Smoked in Last 30 Days: No Second Hand Smoke Exposure: No Use of substances other than those prescribed or required for medical reasons: No Substance Use Type: Unknown Advance Directives: Yes Advance Directives on File: Yes Advance Directives Date on File: 10/02/24 Do you have a plan to hurt others: No Plan service: No Current occupational status: unemployed Meds Allergies Allergy/AdvReac Type Severity Reaction Status Date / Time cyclobenzaprine (Flexeril) Allergy Unknown Palpitation Verified 07/14/25 18:01 s Active Medications: Current Medications Lactated Ringer's (Lr) 1,000 mls @ 100 mls/hr IVCONT .Q10H RACHELL Meropenem (Meropenem 500 Mg Vial) 500 mg IVPUSH Q12H [facility] Metoclopramide HCl (Metoclopramide Hcl 10 Mg/2 Ml Vial) 5 mg IVPUSH Q6H PRN PRN Reason: Nausea and Vomiting Ondansetron HCl (Ondansetron Hcl 4 Mg/2 Ml Vial) 4 mg IVPUSH Q8H [facility] Last Admin: 07/14/25 23:44 Dose: 4 mg Pharmacy Consult (Consult Rx Vancomycin Dosing) 1 each MISCELLANE DAILY PRN PRN Reason: Consult order Vancomycin HCl (Vancomycin Hcl Oral Solution 125 Mg/5 Ml Soln.Recon) 125 mg G-TUBE Q6H [facility] Home Medications ?Medication ?Instructions ?Recorded ?Confirmed ?Last Taken ?Type acetaminophen 325 mg tablet 650 mg feeding tube Q4H PRN Fever 01/02/23 09/30/24 09/30/24 10:33 History Or Pain albuterol sulfate 2.5 mg/3 mL 2.5 mg inhalation Q4H PRN 01/02/23 09/30/24 Unknown History (0.083 %) solution for nebulization Shortness Of Breath Or Wheezing atovaquone 750 mg/5 mL oral 750 mg feeding tube BID 01/02/23 09/30/24 09/30/24 09:01 History suspension bisacodyl 10 mg rectal suppository 10 mg VT DAILY PRN Constipation if 01/02/23 09/30/24 Unknown History no BM after 8 hours following MoM cholecalciferol (vitamin D3) 1,250 1,250 mcg feeding tube QMONTH 01/02/23 09/30/24 08/29/24 History mcg (50,000 unit) tablet finasteride 5 mg tablet 5 mg feeding tube BEDTIME 01/02/23 09/30/24 09/22/23 History glycopyrrolate 1 mg tablet 1 mg feeding tube BID 01/02/23 09/30/24 09/30/24 09:02 History guaifenesin 200 mg/5 mL oral liquid 200 mg feeding tube Q4H PRN Cough 01/02/23 09/30/24 Unknown History lacosamide 200 mg tablet 200 mg feeding tube BID 01/02/23 09/30/24 09/30/24 09:02 History leucovorin calcium 25 mg tablet 25 mg feeding tube BEDTIME 01/02/23 09/30/24 09/22/23 History lorazepam 0.5 mg tablet 0.5 mg feeding tube Q8H PRN Anxiety 01/02/23 09/30/24 09/30/24 09:05 History lorazepam 2 mg/mL injection 2 mg IM ONCE PRN Seizures 01/02/23 09/30/24 Unknown History solution magnesium hydroxide 400 mg/5 mL 30 ml feeding tube DAILY PRN 01/02/23 09/30/24 Unknown History oral suspension (Milk of Magnesia) Constipation melatonin 3 mg tablet 3 mg feeding tube BEDTIME 01/02/23 09/30/24 09/22/23 History ondansetron HCl 2 mg/mL 4 mg IM Q4H PRN Nausea And Vomiting 01/02/23 09/30/24 Unknown History intravenous solution oxycodone 5 mg tablet 5 mg feeding tube Q6H PRN Pain 01/02/23 09/30/24 09/22/23 10:02 History (Scale Score 7-10) scopolamine base 1 mg over 3 days 1 patch transdermal Q3D 01/02/23 09/30/24 09/22/23 History transdermal patch sennosides 8.6 mg-docusate sodium 2 tab-cap PO BID@0900,1700 01/02/23 09/30/24 09/30/24 09:02 History 50 mg tablet (Senna with Docusate Constipation Sodium) sodium phosphates 19 gram-7 118 ml VT DAILY PRN Constipation 01/02/23 09/30/24 Unknown History gram/118 mL enema (Fleet Enema) tramadol 50 mg tablet 50 mg feeding tube Q4H PRN Pain 01/02/23 09/30/24 Unknown History (Scale Score 1-3) multivitamin 1 tab feeding tube DAILY 01/31/23 09/30/24 09/30/24 09:01 History pyrimethamine 25 mg tablet 50 mg feeding tube BEDTIME 01/31/23 09/30/24 09/04/24 13:10 History 50 mg carboxymethylcellulose sodium 0.25 2 drp ophthalmic (eye) BID 06/04/23 09/30/24 09/30/24 09:50 History % eye drops morphine 10 mg/5 mL oral solution 2.5 mg feeding tube DAILY 06/04/23 09/30/24 09/30/24 09:01 History sucralfate 1 gram tablet 1 g PO BID@1300,1700 06/04/23 09/30/24 09/04/24 17:00 History 1 g acetylcysteine 200 mg/mL (20 %) 600 mg inhalation Q12H PRN THICK 09/22/23 09/30/24 Unknown History solution AIRWAY SECRETION ibuprofen 600 mg tablet 600 mg feeding tube Q8H PRN 09/22/23 09/30/24 09/04/24 16:36 History FEVER/PAIN UNRESPONSIVE TO APAP 600 mg linaclotide 145 mcg capsule 145 mcg G-tube DAILY 01/27/24 09/30/24 09/30/24 09:01 History (Linzess) loratadine 10 mg tablet 10 mg feeding tube DAILY 01/27/24 09/30/24 09/30/24 09:02 History midodrine 5 mg tablet 7.5 mg feeding tube Q8H 01/27/24 09/30/24 09/04/24 13:09 History 7.5 omeprazole 20 mg capsule,delayed 20 mg feeding tube BID@0630,1630 01/27/24 09/30/24 09/30/24 09:01 History release polyethylene glycol 3350 17 gram 17 g feeding tube DAILY@1700 01/27/24 09/30/24 09/04/24 16:36 History oral powder packet (Miralax) simethicone 80 mg chewable tablet 80 mg feeding tube Q6H 01/27/24 09/30/24 09/30/24 05:51 History baclofen 5 mg tablet 5 mg feeding tube TID 09/05/24 09/30/24 Unknown History collagenase clostridium histo. 250 1 appl topical BID 09/05/24 09/30/24 Unknown History unit/gram topical ointment lidocaine 4 % topical patch 2 patch topical DAILY 09/05/24 09/30/24 Unknown History carboxymethylcellulose sodium 0.25 1 drp ophthalmic (eye) BID PRN red 09/30/24 09/30/24 Unknown History % eye drops eyes emollient combination no.119 1 appl topical DAILY 09/30/24 09/30/24 09/30/24 09:00 History (Eucerin Advanced Repair topical cream) mineral oil 118 ml VT DAILY PRN after mag 09/30/24 09/30/24 Unknown History citrate to help pass hard stool ondansetron HCl 4 mg tablet 4 mg PO Q4H PRN no relief after 09/30/24 09/30/24 Unknown History 1st dose of zofran phenylephrine 0.25 %-pramoxine 1 1 appl VT Q6H PRN Hemorrhoids 09/30/24 09/30/24 Unknown History %-glycerin-wh.petrolatum rectal cream Physical Exam Vital Signs and Narrative: Vital Signs: Last Vital Signs Temp 99.6 F 07/14/25 22:33 Pulse 115 H 07/14/25 22:33 Resp 20 07/14/25 22:33 BP 101/67 07/14/25 22:33 Pulse Ox 94 07/14/25 22:33 O2 Del Method Trach Collar 07/14/25 22:33 O2 Flow Rate 6 07/14/25 22:33 BMI result Body Mass Index 25.5 General: Alert, unable to determine orientation, repeatedly vomiting. pt not verbally responsive to comoran or irish at this time. Resp: crackles throughout, maintaining O2 saturation CVS: Difficult to assess as patient is currently vomiting, tachycardic GI: Hypoactive, NT, distended Skin: Warm, dry. Erythema and sacral area and posterior scrotum, no open wounds Neuro: Contractures lower extremities Extremities: No pitting edema Results Labs 07/14/25 18:17 07/14/25 18:17 Labs: Laboratory Results - last 24 hr 07/14/25 07/14/25 07/14/25 18:17 18:21 18:28 MCV 93.6 MCH 31.4 MCHC 33.5 RDW 15.9 Plt Count 321 D MPV 10.1 Immature Gran % (Auto) Cancelled Neut % (Auto) Cancelled Lymph % (Auto) Cancelled Reagan % (Auto) Cancelled Eos % (Auto) Cancelled Baso % (Auto) Cancelled Lymph # (Auto) Cancelled Reagan # (Auto) Cancelled Eos # (Auto) Cancelled Baso # (Auto) Cancelled Abs Immat Gran (auto) Cancelled Absolute Neuts (auto) Cancelled Absolute Nucleated RBC 0.000 Nucleated RBC % (auto) 0.0 Neutrophils % (Manual) 94 H Band Neutrophils % 0 L Lymphocytes % (Manual) 1 L Monocytes % (Manual) 5 Abs Neuts (Manual) 23.4 H Lymphocytes # (Manual) 0.2 L Monocytes # (Manual) 1.2 Platelet Estimate NORMAL Plt Morphology Comment NORMAL RBC Morphology NORMAL VBG pH 7.44 H VBG pCO2 30 VBG pO2 134 VBG HCO3 21 L VBG O2 Saturation 99.0 VBG Base Excess -1.8 Anion Gap 20 Estim Creat Clear Calc 19.0 Estimated GFR 15 Random Glucose 108 Lactic Acid 3.8 H* Lactic Acid F/U @ 2Hr Calcium 9.0 Total Bilirubin 1.0 Direct Bilirubin 0.7 H AST 36 ALT 51 H Alkaline Phosphatase 246 H Troponin I High Sens < 2.7 D Total Protein 7.3 Albumin 3.7 Urine Color Dark Yellow Urine Appearance Turbid Urine pH 5.5 Ur Specific [place] 1.015 Urine Protein 100 (2+) H Urine Glucose (UA) Negative Urine Ketones Negative Urine Blood Small (1+) H Urine Nitrite Positive H Ur Leukocyte Esterase Large (3+) H Urine RBC 0-2 Urine WBC >50 H Ur Squamous Epith Cells 6-10 Urine Bacteria 4+ Hyaline Casts 3-5 Influenza Type A (PCR) NEGATIVE Influenza Type B (PCR) NEGATIVE RSV RNA Qual (PCR) NEGATIVE SARS-CoV-2 RNA (RT-PCR) NEGATIVE 07/14/25 20:38 MCV MCH MCHC RDW Plt Count MPV Immature Gran % (Auto) Neut % (Auto) Lymph % (Auto) Reagan % (Auto) Eos % (Auto) Baso % (Auto) Lymph # (Auto) Reagan # (Auto) Eos # (Auto) Baso # (Auto) Abs Immat Gran (auto) Absolute Neuts (auto) Absolute Nucleated RBC Nucleated RBC % (auto) Neutrophils % (Manual) Band Neutrophils % Lymphocytes % (Manual) Monocytes % (Manual) Abs Neuts (Manual) Lymphocytes # (Manual) Monocytes # (Manual) Platelet Estimate Plt Morphology Comment RBC Morphology VBG pH VBG pCO2 VBG pO2 VBG HCO3 VBG O2 Saturation VBG Base Excess Anion Gap Estim Creat Clear Calc Estimated GFR Random Glucose Lactic Acid Lactic Acid F/U @ 2Hr 1.5 Calcium Total Bilirubin Direct Bilirubin AST ALT Alkaline Phosphatase Troponin I High Sens Total Protein Albumin Urine Color Urine Appearance Urine pH Ur Specific [place] Urine Protein Urine Glucose (UA) Urine Ketones Urine Blood Urine Nitrite Ur Leukocyte Esterase Urine RBC Urine WBC Ur Squamous Epith Cells Urine Bacteria Hyaline Casts Influenza Type A (PCR) Influenza Type B (PCR) RSV RNA Qual (PCR) SARS-CoV-2 RNA (RT-PCR) Assessment and Plan (1) Severe sepsis: Status: Acute (2) Acute and chronic respiratory failure with hypoxia: Status: Acute (3) Acute metabolic encephalopathy: Status: Acute (4) Aspiration pneumonia: Status: Acute (5) Acute UTI: Status: Acute (6) Diarrhea: Status: Acute (7) Acute kidney injury superimposed on CKD: Status: Acute Plan Patient is a 54-year-old [place]yan-speaking male with a past medical history significant for stage IV mantle cell lymphoma (currently in remission), toxoplasmosis with recurrence and now on suppressive therapy, seizure disorder, acute on chronic respiratory failure with tracheostomy, CKD, normocytic anemia, GERD, G-tube dependent, history osteomyelitis and history of C diff colitis, who presented to the ED due to fever, vomiting and hypoxia. Severe sepsis with acute on chronic respiratory failure with hypoxia and acute metabolic encephalopathy secondary to aspiration pneumonia, acute UTI and likely C diff colitis - scheduled Zofran, p.r.n. Reglan - meropenem per previous urine culture with additional vancomycin due to trach and long-term care facility - frequent suctioning PRN - urine culture and blood cultures pending - C diff PCR pending, CT with likely C diff colitis - contact precautions placed - p.o. vancomycin empirically pending C diff PCR - hold G-tube feedings, NPO - IV fluids: LR 100/HR - chronic hypotension on midodrine 7.5mg Q8H hold SBP >120 - ID consult - monitor CBC and BMP acute lactic acidosis - lactic normalized with IVF - treat underlying cause as above TAMMY on CKD - likely secondary to sepsis and fluid losses, cr 4.09 from 1.35 on 06/26/15 - IV fluids as above - monitor BMP - avoid nephrotoxins when possible - nephrology consult Hx toxoplasmosis - pyrimethenamine, atovaquone Seizure disorder - lacosamide, baclofen, diazepam p.r.n. Normocytic anemia - monitor CBC GERD - PPI History osteomyelitis, sacral wounds present on admission - no evidence of infection currently - wound care consult Med rec pending Full code VTE prophylaxis: Heparin Patient with severe sepsis, acute metabolic encephalopathy and acute hypoxic respiratory failure with multifactorial infections including aspiration pneumonia, UTI and likely C diff, requiring admission for at least 2 midnight stay for IV antibiotics and monitoring. Quality Stroke Does the patient have a stroke diagnosis?: No VTE Prior VTE?: No VTE Risk Level:: Medical - moderate - high VTE Device Contraindication: Treatment Not Indicated VTE Drug Contraindication: N/A - Med Ordered
--- NOTE | 2025-07-14 23:49 | MHC.EDTECH ---
ekg ordered by inpatient team, ekg preformed given to primary nurse carlita and picture taken , tigered to ordering provider for review
[2025-07-15] VITALS (23 sets, daily range): BP systolic 99–108; BP diastolic 56–72; PULSE 110–133; RESP 20–118; TEMP 37.4–38.8; O2SAT 92–97
[2025-07-15] MEDS: vancomycin HCL Oral Solution 125 MG/5 ML SOLN.RECON G-TUBE ×3 (00:36→14:17)
[2025-07-15] MEDS: 0.9 % Sodium Chloride Flush 3 ML SYRINGE IVFLUSH (00:37)
[2025-07-15] MEDS: Lactated Ringers 1,000 ML 100 ML IVCONT ×3 (00:37→19:01)
--- NOTE | 2025-07-15 01:53 | PC.NURSE ---
Pts work of breathing noted to be increased. Vomiting through the tracheotomy. Reglan administered as ordered PRN. Pt is also tachypneic and tachycardic with O2 sat decreased to 89% while on 6L via trach collar at 35% FIO2. RT called to bedside. Pt suctioned with moderate secretions obtained. O2 support increased to 11L via trach collar at 98% FIO2. Current vitals HR 124, BP 106/70, RR 33, O2 Sat 90%. [place] text sent to hospitalist. No new orders at this time. Monitoring is ongoing.
--- NOTE | 2025-07-15 02:23 | PC.NURSE ---
Pts health care proxy, Cornelius, called for an update. Update provided.
[2025-07-15 02:40] LABS: ABG Refer to POC result
[2025-07-15 02:43] LABS: ABG HCO3 20 mmol/L (22-26); ABG O2 % Saturation 99.0 %
--- NOTE | 2025-07-15 02:44 | PC.NURSE ---
Pt placed on high flow 50% O2, 50L. Pt tolerating it well. Medicated as per MAR.
[2025-07-15 04:55] LABS: Hematocrit 34.0 % (42.0-52.0); Hemoglobin 11.5 g/dl (14.0-18.0); Mean Corpuscular HGB Conc 33.8 g/dl (31.0-36.0); Mean Corpuscular Hemoglobin 31.1 pg (27.0-33.0); Mean Corpuscular Volume 91.9 fL (80.0-98.0); NRBC Abs Auto 0.000 X10*3/uL (0.0-0.012); NRBC Pct Auto 0.0 /100WBC (0.0-0.2); Platelet Count 285 X10*3/uL (160-400); Red Blood Count 3.70 X10*6/uL (4.60-5.80); White Blood Count 18.3 X10*3/uL (4.8-10.8)
[2025-07-15 05:13] LABS: Band Neutrophils Percent 15 % (3-5); Lymphocytes Absolute Manual 1.1 X10*3/uL (1.2-4.9); Lymphocytes Percent Manual 6 % (20-40); Monocytes Absolute Manual 2.6 X10*3/uL (0.1-1.2); Monocytes Percent Manual 14 % (2-11); Neutrophils Absolute Manual 14.6 X10*3/uL (2.0-8.3); Neutrophils Percent Manual 65 % (45-73)
[2025-07-15 05:14] LABS: Burr Cells 1+ (0-2) /OIF; Dohle Bodies PRESENT; RBC Morphology NOTED; Toxic Vacuolation PRESENT
[2025-07-15 05:16] LABS: Alanine Aminotransferase 33 U/L (0-40); Albumin Level 3.1 g/dL (3.5-5.0); Alkaline Phosphatase 214 U/L (39-117); Anion Gap 19 (12-20); Aspartate Amino Transferase 23 U/L (5-37); Blood Urea Nitrogen 77 mg/dL (9-16); Calcium 8.4 mg/dL (8.4-10.2); Carbon Dioxide 18 mmol/L (22-29); Chloride 99 mmol/L (96-108); Creatinine Clr Calc Pharmacy 17.8; Estimated Glomerular Filt Rate 14; Magnesium 2.2 mg/dL (1.6-2.6); Potassium 3.3 mmol/L (3.3-5.1); Sodium 133 mmol/L (135-145); Total Protein 6.3 g/dL (6.5-8.0)
--- NOTE | 2025-07-15 06:20 | HO.NURTONUR ---
54 Y M presents from [facility] with fever x 4 days and vomiting x 2 days and hypoxia, SPO2 lower than baseline. Also diarrhea with recent history of C-Diff. Hx of acute on chronic respiratory failure with tracheostomy. G-tube in place. Vomiting through the trach has subsided. Being admitted with severe sepsis and respiratory failure with hypoxia and acute metabolic encephalapathy secondary to aspiration PNA. Acute UTI and suspected C-Diff. Stool samples pending to be sent to the lab for testing. 20G R hand and 22G R hand. Difficult stick. LR running at 125mls/hr. Pt has significant contracture in all extremities with limiting mobility and functional ability. Pt arrived with pressure relief boots on both feet and one hand contracture foam applied to the left hand. Pt is fully dependent for all ADL's and repositioning. Condom cath in place with very minimal urine output throughout the night. Pt is NPO and all meds to be given via G-tube. Work of breathing increased throughout the night and pt placed on high flow 50% O2 on 50L. Has been tachypneic and tachycardic with RR in the 30's and HR in 120's. Blood pressure remained stable as pt was given [place]. Hospitalist aware.
--- NOTE | 2025-07-15 06:44 | PHA.PROG ---
Admission Date/Time: July 14, 2025 22:36 Indication: Sepsis Weight in k.8 kg Adjusted body weight in Kg: Slater body weight in Kg: Obesity Dosing Indication % IBW: Serum Creatinine - Last 168 Hours 07/14/25 07/15/25 18:17 04:26 Creatinine 4.09 H* 4.36 H* Estimated CrCl and GFR - Last 168 Hours 07/14/25 07/15/25 18:17 04:26 Estim Creat Clear Calc 19.0 17.8 Estimated GFR 15 14 Vancomycin Loading Dose: 1000mg Current Vancomycin Dosing Regimen: 500mg Q24H Vancomycin Monitoring using AUC goal of 400 - 600 range with trough as surrogate marker: 456 mg/L*hr Date and Time for next Vancomycin Level to be drawn: 07/17/25 @ 1600 Pharmacist Comments on Vancomycin Plan: Will watching for changing renal function or dialysis orders and adjust accordingly. Vancomycin dosing will take advantage of [employer] .fr [employer] as a clinical decision support tool that uses Bayesian modeling to calculate individual patient's pharmacokinetic parameters and forecast the patient's drug concentration time course with the target goal AUC 24 range of 400 - 600 mg/L/hr.
--- NOTE | 2025-07-15 08:18 | PHA.MEDREC ---
Pharmacy Consult ? Medication Reconciliation Pharmacy has completed the medication reconciliation, using list from [facility].
--- NOTE | 2025-07-15 08:54 | PM.CNPUL ---
History of Present Illness History of Present Illness Consult date: 07/15/25 Chief complaint: Severe sepsis, UTI Narrative: This is an inpt pulmonary consultation. The patient is a 54-year-old Azeri-speaking male with a past medical history significant for stage IV mantle cell lymphoma (currently in remission), toxoplasmosis with recurrence and now on suppressive therapy, seizure disorder, acute on chronic respiratory failure with tracheostomy, CKD, normocytic anemia, GERD, G-tube dependent, history osteomyelitis and history of C diff colitis, who presented to the ED due to fever, vomiting and hypoxia. The patient was reportedly up to 104 degrees F with vomiting for the past 2 days and purulent urine output. He also has reportedly had diarrhea with a history of recent C diff. the patient is unable to provide any history at this time due to metabolic encephalopathy. He is currently vomiting through his trach tube while evaluated bedside with RT present suctioning. Currently, on HF 50% via trach, with evidence of dark gastric aspirate from the airways. The pt is currently non verbal. Review of Systems Review of Systems: Yes Unobtainable due to mental condition and Unobtainable due to mental status PMFSH Past Medical History Medical History Opacity of lung on imaging study Chronic hypoxic respiratory failure Tracheostomy dependent Mantle cell lymphoma Aspiration into airway Stage IV decubitus ulcer Osteomyelitis of pelvis Anemia Toxoplasmosis Encephalopathy [employer] lymphoma Rectal bleeding H/O: RCT (rotator cuff tear) Depression Appendicitis Chronic pain Kidney stone Mantle cell lymphoma Family History Family History Mother COPD (chronic obstructive pulmonary disease) Sister Colon cancer Surgical History Surgical History History of appendectomy Social History Social History Household Members: None Housing: Assisted Housing Other:: [facility] Do you presently have visiting nurse or other home services: No Alcohol intake: unknown Comment: non ambulatory patient Patient Tobacco Use Status: Never used Tobacco Smoked in Last 30 Days: No Second Hand Smoke Exposure: No Use of substances other than those prescribed or required for medical reasons: No Substance Use Type: Unknown Advance Directives: Yes Advance Directives on File: Yes Advance Directives Date on File: 10/02/24 Do you have a plan to hurt others: No Plan Nutrition Risks: Acute nausea or vomiting x1 week, Difficulty chewing, Difficulty swallowing and On aspiration precautions service: No Current occupational status: unemployed Meds Allergies Allergy/AdvReac Type Severity Reaction Status Date / Time cyclobenzaprine (Flexeril) Allergy Unknown Palpitation Verified 07/14/25 18:01 s Active Medications: Current Medications Baclofen (Baclofen 10 Mg Tablet) 5 mg G-TUBE TID [facility] Last Admin: 07/15/25 08:45 Dose: 5 mg Diazepam (Diazepam 10 Mg/2 Ml Cartridge) 5 mg IVPUSH STAT PRN PRN Reason: Seizures Heparin Sodium (Porcine) (Heparin Sodium,Porcine 5,000 Unit/Ml Vial) 5,000 unit SUBCUT Q12H [facility] Hydromorphone HCl (Hydromorphone Hcl 1 Mg/Ml Syringe) 0.5 mg IVPUSH Q4H PRN; Protocol PRN Reason: Pain, Severe (Pain Scale 7-10) Lactated Ringer's (Lr) 1,000 mls @ 100 mls/hr IVCONT .Q10H [facility] Last Admin: 07/15/25 00:37 Dose: 100 mls/hr Vancomycin HCl 500 mg/ Sodium (Chloride) 110 mls @ 110 mls/hr IV Q24H [facility] Lacosamide (Lacosamide 100 Mg Tablet) 200 mg G-TUBE BID [facility] Last Admin: 07/15/25 08:44 Dose: 200 mg Melatonin (Melatonin 3 Mg Tablet) 6 mg G-TUBE BEDTIME PRN PRN Reason: Insomnia Meropenem (Meropenem 500 Mg Vial) 500 mg IVPUSH Q12H [facility] Metoclopramide HCl (Metoclopramide Hcl 10 Mg/2 Ml Vial) 5 mg IVPUSH Q6H PRN PRN Reason: Nausea and Vomiting Last Admin: 07/15/25 01:12 Dose: 5 mg Midodrine (Midodrine Hcl 2.5 Mg Tablet) 7.5 mg G-TUBE Q8H [facility]; Protocol Last Admin: 07/15/25 08:44 Dose: 7.5 mg Ondansetron HCl (Ondansetron Hcl 4 Mg/2 Ml Vial) 4 mg IVPUSH Q8H [facility] Last Admin: 07/15/25 08:45 Dose: 4 mg Oxycodone HCl (Oxycodone Hcl Immed Release 5 Mg Tablet) 5 mg G-TUBE Q6H PRN PRN Reason: Pain, Moderate(Pain Scale 4-6) Pantoprazole Sodium (Pantoprazole Sodium 40 Mg/10 Ml Vial) 40 mg IVPUSH BID@0630,1630 [facility] Last Admin: 07/15/25 06:35 Dose: 40 mg Pharmacy Consult (Consult Rx Vancomycin Dosing) 1 each MISCELLANE DAILY PRN PRN Reason: Consult order Sodium Chloride (0.9 % Sodium Chloride Flush 3 Ml Syringe) 3 ml IVFLUSH QSHIFT [facility] Last Admin: 07/15/25 00:37 Dose: 3 ml Vancomycin HCl (Vancomycin Hcl Oral Solution 125 Mg/5 Ml Soln.Recon) 125 mg G-TUBE Q6H [facility] Last Admin: 07/15/25 06:35 Dose: 125 mg Home Medications ?Medication ?Instructions ?Recorded ?Confirmed ?Last Taken ?Type acetaminophen 325 mg tablet 650 mg feeding tube Q4H PRN Fever 01/02/23 07/15/25 07/14/25 History Or Pain albuterol sulfate 2.5 mg/3 mL 2.5 mg inhalation Q4H PRN 01/02/23 07/15/25 Unknown History (0.083 %) solution for nebulization Shortness Of Breath Or Wheezing atovaquone 750 mg/5 mL oral 750 mg feeding tube BID 01/02/23 07/15/25 07/14/25 History suspension bisacodyl 10 mg rectal suppository 10 mg RI DAILY PRN Constipation if 01/02/23 07/15/25 Unknown History no BM after 8 hours following MoM cholecalciferol (vitamin D3) 1,250 1,250 mcg feeding tube QMONTH 01/02/23 07/15/25 06/29/25 History mcg (50,000 unit) tablet finasteride 5 mg tablet 5 mg feeding tube BEDTIME 01/02/23 07/15/25 07/14/25 History guaifenesin 200 mg/5 mL oral liquid 200 mg feeding tube Q4H PRN Cough 01/02/23 07/15/25 Unknown History lacosamide 200 mg tablet 200 mg feeding tube BID 01/02/23 07/15/25 07/14/25 History leucovorin calcium 25 mg tablet 25 mg feeding tube BEDTIME 01/02/23 07/15/25 07/14/25 History lorazepam 0.5 mg tablet 0.5 mg feeding tube Q8H PRN Anxiety 01/02/23 07/15/25 09/30/24 09:05 History magnesium hydroxide 400 mg/5 mL 30 ml feeding tube DAILY PRN 01/02/23 07/15/25 Unknown History oral suspension (Milk of Magnesia) Constipation melatonin 3 mg tablet 3 mg feeding tube BEDTIME 01/02/23 07/15/25 07/14/25 History ondansetron HCl 2 mg/mL 4 mg IM Q4H PRN Nausea And Vomiting 01/02/23 07/15/25 07/14/25 History intravenous solution oxycodone 5 mg tablet 5 mg feeding tube Q6H PRN Pain 01/02/23 07/15/25 09/22/23 10:02 History (Scale Score 7-10) scopolamine base 1 mg over 3 days 1 patch transdermal Q3D 01/02/23 07/15/25 07/14/25 History transdermal patch sennosides 8.6 mg-docusate sodium 2 tab-cap PO BID@0900,1700 01/02/23 07/15/25 07/14/25 History 50 mg tablet (Senna with Docusate Constipation Sodium) sodium phosphates 19 gram-7 118 ml RI DAILY PRN Constipation 01/02/23 07/15/25 Unknown History gram/118 mL enema (Fleet Enema) tramadol 50 mg tablet 50 mg feeding tube Q4H PRN Pain 01/02/23 07/15/25 Unknown History (Scale Score 1-3) multivitamin 1 tab feeding tube DAILY 01/31/23 07/15/25 07/14/25 History pyrimethamine 25 mg tablet 50 mg feeding tube BEDTIME 01/31/23 07/15/25 07/14/25 History carboxymethylcellulose sodium 0.25 2 drp ophthalmic (eye) BID 06/04/23 07/15/25 07/14/25 History % eye drops morphine 10 mg/5 mL oral solution 5 mg feeding tube DAILY 06/04/23 07/15/25 07/14/25 History sucralfate 1 gram tablet 1 g PO BID@1300,1700 06/04/23 07/15/25 07/14/25 History acetylcysteine 200 mg/mL (20 %) 600 mg inhalation Q12H PRN THICK 09/22/23 07/15/25 Unknown History solution [employer] SECRETION ibuprofen 600 mg tablet 600 mg feeding tube Q8H PRN 09/22/23 07/15/25 09/04/24 16:36 History FEVER/PAIN UNRESPONSIVE TO APAP 600 mg midodrine 5 mg tablet 10 mg feeding tube Q8H 01/27/24 07/15/25 07/14/25 History polyethylene glycol 3350 17 gram 17 g feeding tube Q48H 01/27/24 07/15/25 09/04/24 16:36 History oral powder packet (Miralax) simethicone 80 mg chewable tablet 80 mg feeding tube Q6H 01/27/24 07/15/25 09/30/24 05:51 History baclofen 5 mg tablet 5 mg feeding tube TID 09/05/24 07/15/25 07/14/25 History lidocaine 4 % topical patch 2 patch topical DAILY 09/05/24 07/15/25 07/14/25 History carboxymethylcellulose sodium 0.25 1 drp ophthalmic (eye) BID PRN red 09/30/24 07/15/25 Unknown History % eye drops eyes emollient combination no.119 1 appl topical DAILY 09/30/24 07/15/25 07/14/25 History (Eucerin Advanced Repair topical cream) ondansetron HCl 4 mg tablet 4 mg PO Q4H PRN no relief after 09/30/24 07/15/25 07/14/25 History 1st dose of zofran acetaminophen 650 mg rectal 650 mg RI Q6H PRN Fever Or Pain 07/15/25 07/15/25 Unknown History suppository atropine 1 % eye drops 1 drp sublingual Q6H PRN Secretions 07/15/25 07/15/25 Unknown History esomeprazole magnesium 40 mg 40 mg feeding tube DAILY 07/15/25 07/15/25 07/14/25 History capsule,delayed release famotidine 20 mg tablet 20 mg PO BID 07/15/25 07/15/25 07/14/25 History fluticasone propionate 50 1 spray intranasal Q12H PRN 07/15/25 07/15/25 Unknown History mcg/actuation nasal Congestion spray,suspension ipratropium bromide 0.02 % 2.5 ml inhalation Q6H PRN 07/15/25 07/15/25 07/14/25 History solution for inhalation Shortness Of Breath linaclotide 145 mcg capsule 145 mcg PO DAILY 07/15/25 07/15/25 Unknown History naloxone 0.4 mg/mL injection 0.4 mg subcut Q2M PRN Opioid 07/15/25 07/15/25 Unknown History solution Overdose Physical Exam Vital Signs: Vital Signs: Last Vital Signs Temp 99.6 F 07/14/25 22:33 Pulse 131 H 07/15/25 06:33 Resp 30 H 07/15/25 07:29 BP 103/69 07/15/25 08:44 Pulse Ox 95 07/15/25 06:33 O2 Del Method High Flow Nasal C annula, Trach Edy ar 07/15/25 06:33 O2 Flow Rate 50 07/15/25 06:33 FiO2 50 07/15/25 06:33 BMI result Body Mass Index 25.5 Const: General: ill appearing and lethargic Orientation/consciousness: lethargic HEENT: Head: Yes atraumatic Neck: Neck: Yes tracheostomy present Chest: Chest palpation & inspection: normal inspection of the chest Resp: Effort & Inspection: normal respiratory effort Auscultation: rales and diminished lung sounds Cardio: Rate: tachycardic Heart sounds: S1 normal heart sound present and S2 normal heart sound present GI: Inspection: Yes G-tube present Palpation (GI): Soft to palpation Skin: General skin exam: no rashes or lesions noted Extrem: General: No cyanosis Results Laboratory Findings 07/15/25 04:26 07/15/25 04:26 Abnormal lab findings: Abnormal Labs 07/14/25 07/14/25 07/14/25 18:17 18:21 18:28 WBC 24.9 H RBC 3.92 L Hgb 12.3 L Hct 36.7 L Neutrophils % (Manual) 94 H Band Neutrophils % 0 L Lymphocytes % (Manual) 1 L Monocytes % (Manual) Abs Neuts (Manual) 23.4 H Lymphocytes # (Manual) 0.2 L Monocytes # (Manual) ABG HCO3 VBG pH 7.44 H VBG HCO3 21 L Sodium 132 L Chloride 93 L Carbon Dioxide BUN 69 H Creatinine 4.09 H* Lactic Acid 3.8 H* Direct Bilirubin 0.7 H ALT 51 H Alkaline Phosphatase 246 H Total Protein Albumin Urine Protein 100 (2+) H Urine Blood Small (1+) H Urine Nitrite Positive H Ur Leukocyte Esterase Large (3+) H Urine WBC >50 H 07/15/25 07/15/25 02:39 04:26 WBC 18.3 H RBC 3.70 L Hgb 11.5 L Hct 34.0 L Neutrophils % (Manual) Band Neutrophils % 15 H Lymphocytes % (Manual) 6 L Monocytes % (Manual) 14 H Abs Neuts (Manual) 14.6 H Lymphocytes # (Manual) 1.1 L Monocytes # (Manual) 2.6 H ABG HCO3 20 L VBG pH VBG HCO3 Sodium 133 L Chloride Carbon Dioxide 18 L BUN 77 H Creatinine 4.36 H* Lactic Acid Direct Bilirubin ALT Alkaline Phosphatase 214 H Total Protein 6.3 L Albumin 3.1 L Urine Protein Urine Blood Urine Nitrite Ur Leukocyte Esterase Urine WBC Assessment and Plan (1) Acute and chronic respiratory failure with hypoxia: Status: Acute (2) Aspiration pneumonia: Qualifiers: Aspiration pneumonia type: due to gastric secretions Laterality: bilateral Lung location: unspecified part of lung Qualified Code(s): J69.0 - Pneumonitis due to inhalation of food and vomit Status: Acute (3) Aspiration into airway: Qualifiers: Encounter type: initial encounter Qualified Code(s): T17.908A - Unspecified foreign body in respiratory tract, part unspecified causing other injury, initial encounter Status: Acute (4) Severe sepsis: Status: Acute Plan Continue HF Agree with broad spectrum abx cdiff treatment monitor for signs of end worsening sepsis trach care Goals of care Procedures Date of Service Date of Service: 07/15/25
--- NOTE | 2025-07-15 09:07 | PC.RT ---
pt remains on hiflow. Increased Fi02 to 60% as pt is desat to 80's. pt hr 125-135, rr 30 pt remains febrile. pt also has been requiring suctiong Q30min -Q1hour. Pt suctioned for copius black/green via trach and also pt vomitted the same contents. Spare trach left at bedside with disposable inner cannula. and also spare inline trach ballards as well.
--- NOTE | 2025-07-15 09:08 | PC.NURSE ---
This Rn assumed care of patient @ 0700 Patient now equipped with T piece and inline burgos Emesis noted in T piece Patient suctioned Patient O2 87-89% @ 48% RT notified O2 increased 60.2% Patient O2 91% Recal temp obtained 101.9 Stool sample collected and sent Patient medicated per OCT Awaiting bed assignment
--- NOTE | 2025-07-15 09:18 | P.CNGI_ITS ---
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 History was obtained from the chart due to pt;s medical condition. Reportedly pt has been experiencing AMS and fevers x 4 days. UA from 06/12 + for ESBL E Coli. He was sent yest when he also started having black vomiting with hypoxia. Patient seen at bedside today. Remains somnolent. No wincing to abdomen palpation. Tracheostomy site with blackish secretions. G-tube lavage done at bedside with return off coffee-ground effluent. Getting 50L/min HF through trach. Patient also has history of C diff colitis. Imaging on admission against suggestive of colitis with stool C Diff positive. Of note he had CDIff pos 06/12 that was ordered as outpatient so unclear if this was never treated vs a recurrent infection. Chem 7 with acute renal failure Cr up to 4.3. Baseline is normal. He is on IV meropenem and PO Vanc. Review of Systems 2 Review of Systems: Yes Unobtainable due to mental condition PMFSH Past Medical History Medical History Opacity of lung on imaging study Chronic hypoxic respiratory failure Tracheostomy dependent Mantle cell lymphoma Aspiration into airway Stage IV decubitus ulcer Osteomyelitis of pelvis Anemia Toxoplasmosis Encephalopathy [employer] lymphoma Rectal bleeding H/O: RCT (rotator cuff tear) Depression Appendicitis Chronic pain Kidney stone Mantle cell lymphoma Family History Family History Mother COPD (chronic obstructive pulmonary disease) Sister Colon cancer Surgical History Surgical History History of appendectomy Social History Social History Household Members: None Housing: [facility] Housing Other:: [facility] Do you presently have visiting nurse or other home services: No Alcohol intake: unknown Comment: non ambulatory patient Patient Tobacco Use Status: Never used Tobacco Smoked in Last 30 Days: No Second Hand Smoke Exposure: No Use of substances other than those prescribed or required for medical reasons: No Substance Use Type: Unknown Advance Directives: Yes Advance Directives on File: Yes Advance Directives Date on File: 10/02/24 Do you have a plan to hurt others: No Plan Nutrition Risks: Acute nausea or vomiting x1 week, Difficulty chewing, Difficulty swallowing and On aspiration precautions service: No Current occupational status: unemployed Meds Allergies Allergy/AdvReac Type Severity Reaction Status Date / Time cyclobenzaprine (Flexeril) Allergy Unknown Palpitation Verified 07/14/25 18:01 s Active Medications: Current Medications Baclofen (Baclofen 10 Mg Tablet) 5 mg G-TUBE TID [facility] Last Admin: 07/15/25 08:45 Dose: 5 mg Diazepam (Diazepam 10 Mg/2 Ml Cartridge) 5 mg IVPUSH STAT PRN PRN Reason: Seizures Heparin Sodium (Porcine) (Heparin Sodium,Porcine 5,000 Unit/Ml Vial) 5,000 unit SUBCUT Q12H [facility] Last Admin: 07/15/25 09:15 Dose: 5,000 unit Hydromorphone HCl (Hydromorphone Hcl 1 Mg/Ml Syringe) 0.5 mg IVPUSH Q4H PRN; Protocol PRN Reason: Pain, Severe (Pain Scale 7-10) Lactated Ringer's (Lr) 1,000 mls @ 100 mls/hr IVCONT .Q10H [facility] Last Admin: 07/15/25 00:37 Dose: 100 mls/hr Vancomycin HCl 500 mg/ Sodium (Chloride) 110 mls @ 110 mls/hr IV Q24H [facility] Lacosamide (Lacosamide 100 Mg Tablet) 200 mg G-TUBE BID [facility] Last Admin: 07/15/25 08:44 Dose: 200 mg Melatonin (Melatonin 3 Mg Tablet) 6 mg G-TUBE BEDTIME PRN PRN Reason: Insomnia Meropenem (Meropenem 500 Mg Vial) 500 mg IVPUSH Q12H [facility] Metoclopramide HCl (Metoclopramide Hcl 10 Mg/2 Ml Vial) 5 mg IVPUSH Q6H PRN PRN Reason: Nausea and Vomiting Last Admin: 07/15/25 01:12 Dose: 5 mg Midodrine (Midodrine Hcl 2.5 Mg Tablet) 7.5 mg G-TUBE Q8H [facility]; Protocol Last Admin: 07/15/25 08:44 Dose: 7.5 mg Ondansetron HCl (Ondansetron Hcl 4 Mg/2 Ml Vial) 4 mg IVPUSH Q8H [facility] Last Admin: 07/15/25 08:45 Dose: 4 mg Oxycodone HCl (Oxycodone Hcl Immed Release 5 Mg Tablet) 5 mg G-TUBE Q6H PRN PRN Reason: Pain, Moderate(Pain Scale 4-6) Pantoprazole Sodium (Pantoprazole Sodium 40 Mg/10 Ml Vial) 40 mg IVPUSH BID@0630,1630 [facility] Last Admin: 07/15/25 06:35 Dose: 40 mg Pharmacy Consult (Consult Rx Vancomycin Dosing) 1 each MISCELLANE DAILY PRN PRN Reason: Consult order Sodium Chloride (0.9 % Sodium Chloride Flush 3 Ml Syringe) 3 ml IVFLUSH QSHIFT [facility] Last Admin: 07/15/25 09:12 Dose: Not Given Vancomycin HCl (Vancomycin Hcl Oral Solution 125 Mg/5 Ml Soln.Recon) 125 mg G- TUBE Q6H [facility] Last Admin: 07/15/25 06:35 Dose: 125 mg Home Medications ?Medication ?Instructions ?Recorded ?Confirmed ?Last Taken ?Type acetaminophen 325 mg tablet 650 mg feeding tube Q4H AL N Fever 01/02/23 07/15/25 07/14/25 History Or Pain albuterol sulfate 2.5 mg/3 mL 2.5 mg inhalation Q4H AL N 01/02/23 07/15/25 Unknown History (0.083 %) solution for nebulization Shortness Of Breat h Or Wheezing atovaquone 750 mg/5 mL oral 750 mg feeding tube BID 07/15/25 07/14/25 History suspension bisacodyl 10 mg rectal suppository 10 mg AL DAILY PRN Constipation if 01/02/23 07/15/25 Unknown History no BM after 8 hours following MoM cholecalciferol (vitamin D3) 1,250 1,250 mcg feeding t ube QMONTH 01/02/23 07/15/25 06/29/25 History mcg (50,000 unit) tablet finasteride 5 mg tablet 5 mg feeding tube BEDTIME 07/15/25 07/14/25 History guaifenesin 200 mg/5 mL oral liquid 200 mg feeding tub e Q4H PRN Cough 01/02/23 07/15/25 Unknown History lacosamide 200 mg tablet 200 mg feeding tube BID 12/1407/15/25 07/14/25 History leucovorin calcium 25 mg tablet 25 mg feeding tube BED TIME 01/02/23 07/15/25 07/14/25 History lorazepam 0.5 mg tablet 0.5 mg feeding tube Q8H PRN Anxiety 01/02/23 07/15/25 09/30/24 09:05 History magnesium hydroxide 400 mg/5 mL 30 ml feeding tube JACK LY PRN 01/02/23 07/15/25 Unknown History oral suspension (Milk of Magnesia) Constipation melatonin 3 mg tablet 3 mg feeding tube BEDTIME 07/15/25 07/14/25 History ondansetron HCl 2 mg/mL 4 mg IM Q4H PRN Nausea And V omiting 01/02/23 07/15/25 07/14/25 History intravenous solution oxycodone 5 mg tablet 5 mg feeding tube Q6H PRN Pa in 01/02/23 07/15/25 09/22/23 10:02 History (Scale Score 7-10) scopolamine base 1 mg over 3 days 1 patch transdermal Q3D 01/02/23 07/15/25 07/14/25 History transdermal patch sennosides 8.6 mg-docusate sodium 2 tab-cap PO BID@090 0,1700 01/02/23 07/15/25 07/14/25 History 50 mg tablet (Senna with Docusate Constipation Sodium) sodium phosphates 19 gram-7 118 ml AL DAILY PRN Consti pation 01/02/23 07/15/25 Unknown History gram/118 mL enema (Fleet Enema) tramadol 50 mg tablet 50 mg feeding tube Q4H PRN P ain 01/02/23 07/15/25 Unknown History (Scale Score 1-3) multivitamin 1 tab feeding tube DAILY 07/15/25 07/14/25 History pyrimethamine 25 mg tablet 50 mg feeding tube BEDTIME 01/31/23 07/15/25 07/14/25 History carboxymethylcellulose sodium 0.25 2 drp ophthalmic (e ye) BID 06/04/23 07/15/25 07/14/25 History % eye drops morphine 10 mg/5 mL oral solution 5 mg feeding tube DA NAKUL 06/04/23 07/15/25 07/14/25 History sucralfate 1 gram tablet 1 g PO BID@1300,1700 3 07/15/25 07/14/25 History acetylcysteine 200 mg/mL (20 %) 600 mg inhalation Q12H PRN THICK 09/22/23 07/15/25 Unknown History solution AIRWAY SECRETION ibuprofen 600 mg tablet 600 mg feeding tube Q8H PRN 09/22/23 07/15/25 09/04/24 16:36 History FEVER/PAIN UNRESPONSIVE TO APAP 600 mg midodrine 5 mg tablet 10 mg feeding tube Q8H 01/2607/15/25 07/14/25 History polyethylene glycol 3350 17 gram 17 g feeding tube Q48 H 01/27/24 07/15/25 09/04/24 16:36 History oral powder packet (Miralax) simethicone 80 mg chewable tablet 80 mg feeding tube Q 6H 01/27/24 07/15/25 09/30/24 05:51 History baclofen 5 mg tablet 5 mg feeding tube TID 07/15/25 07/14/25 History lidocaine 4 % topical patch 2 patch topical DAILY 08/1607/15/25 07/14/25 History carboxymethylcellulose sodium 0.25 1 drp ophthalmic (e ye) BID PRN red 09/30/24 07/15/25 Unknown History % eye drops eyes emollient combination no.119 1 appl topical DAILY 09/1507/15/25 07/14/25 History (Eucerin Advanced Repair topical cream) ondansetron HCl 4 mg tablet 4 mg PO Q4H PRN no relief after 09/30/24 07/15/25 07/14/25 History 1st dose of zofran acetaminophen 650 mg rectal 650 mg AL Q6H PRN Fever Or Pain 07/15/25 07/15/25 Unknown History suppository atropine 1 % eye drops 1 drp sublingual Q6H PRN Sec retions 07/15/25 07/15/25 Unknown History esomeprazole magnesium 40 mg 40 mg feeding tube DAILY 07/15/25 07/15/25 07/14/25 History capsule,delayed release famotidine 20 mg tablet 20 mg PO BID 07/15/2507/14/25 History fluticasone propionate 50 1 spray intranasal Q12H PRN 07/15/25 07/15/25 Unknown History mcg/actuation nasal Congestion spray,suspension ipratropium bromide 0.02 % 2.5 ml inhalation Q6H PRN 1 09/15/24 07/15/25 07/14/25 History solution for inhalation Shortness Of Breath linaclotide 145 mcg capsule 145 mcg PO DAILY 07/15/25 07/15/25 Unknown History naloxone 0.4 mg/mL injection 0.4 mg subcut Q2M PRN Opi oid 07/15/25 07/15/25 Unknown History solution Overdose Physical Exam 2 Exam: Exam: Middle aged male Somnolent Undernourished Tracheostomy tubing wiht black secretions No wincing to abdomen palpation. G-tube lavage done at bedside with return of coffee-ground effluent. Vital Signs: Vital Signs: Last Vital Signs Temp 101.9 F H 07/15/25 09:16 Pulse 127 H 07/15/25 09:16 Resp 28 H 07/15/25 09:16 BP 99/61 07/15/25 09:16 Pulse Ox 93 07/15/25 09:16 O2 Del Method High Flow Nasal C annula 07/15/25 09:16 O2 Flow Rate 50 07/15/25 09:16 FiO2 50 07/15/25 06:33 BMI result Body Mass Index 25.5 Results Labs 07/15/25 04:26 07/15/25 04:26 Labs: Short CBC 07/14/25 07/15/25 Range/Units 18:17 04:26 WBC 24.9 H 18.3 H (4.8-10.8) X10*3/uL Hgb 12.3 L 11.5 L (14.0-18.0) g/dl Hct 36.7 L 34.0 L (42.0-52.0) % Plt Count 321 D 285 (160-400) X10*3/uL BMP 07/14/25 07/15/25 18:17 04:26 Sodium 132 L 133 L Potassium 3.7 3.3 Chloride 93 L 99 Carbon Dioxide 23 18 L BUN 69 H 77 H Creatinine 4.09 H* 4.36 H* Calcium 9.0 8.4 D Liver Function 07/14/25 07/15/25 Range/Units 18:17 04:26 Total Bilirubin 1.0 1.0 (0.0-1.0) mg/dL Direct Bilirubin 0.7 H (0.0-0.5) mg/dL AST 36 23 (5-37) U/L ALT 51 H 33 (0-40) U/L Alkaline Phosphatase 246 H 214 H (39-117) U/L Albumin 3.7 3.1 L (3.5-5.0) g/dL Urine 07/14/25 Range/Units 18:21 Urine Color Dark Yellow Urine Appearance Turbid Urine pH 5.5 (5.0-9.0) Ur Specific [place] 1.015 (1.005-1.025) Urine Protein 100 (2+) H (Neg-Trace) mg/dL Urine Glucose (UA) Negative (Negative) mg/dL Assessment and Plan (1) Aspiration into airway: Qualifiers: Encounter type: initial encounter Qualified Code(s): T17.908A - Unspecified foreign body in respiratory tract, part unspecified causing other injury, initial encounter Status: Acute (2) Hematemesis: Status: Acute (3) Diarrhea: Status: Acute (4) C. difficile colitis: Status: Resolved (5) Acute kidney injury superimposed on CKD: Status: Acute (6) Severe sepsis: Status: Acute (7) Acute metabolic encephalopathy: Status: Acute (8) UTI due to extended-spectrum beta lactamase (ESBL) producing Escherichia coli: Status: Acute (9) Low CD4 cell count determined by flow cytometry: Status: Acute Plan 1. Hematemesis Pt noted to have coffee ground emesis on day of admission. Bedside G tube lavage performed which also returned with coffee grounds. Ddx includes PUD, esophagitis, gastritis, duodenitis. H/H and vitals stable. Plan: - Maintain x2 IV access at all times - Monitor CBC - Type and screen - Cont iV protonix - OK to give liquid carafate through G tube - HOLD tube feeds - OK for clear liquids through G tube - NPO after MN for EGD tmrw pending clinical course. HCP Cornelius updated over the phone. 2. C Diff colitis As above, unclear if 06/12 C diff infection was never treated or if current presentation reflects a re-infection. - Would favor fidaxomicin 200 BID for presumed recurrence. - Hold off diagnostic colo/flex sig at this time as have a plausible cause for colitis. - Off note has fam hx of CRC in sister at age 48. Defer decision re screening colo as o/p to his GI Dr Laurent. 3. TAMMY 4. ESBL UTI 5. Low CD4 count Fluid resuscitation and Abx as per primary team. Consider ID consultation. 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 Thank you for allowing me to participate in his care. Please do not hesitate to reach out for any questions or concerns. Procedures Date of Service Date of Service: 07/15/25
--- NOTE | 2025-07-15 10:53 | P.PNIM_ITS ---
Subjective Subjective Date of Service: 07/16/25 Interval History: Acute hypoxemic respiratory failure Review of Systems Patient having some blackish material vomiting?/in the trach area, patient was suctioned, on high-flow, seems generalised weak has fevers Review of Systems: Yes all other systems are reviewed and are negative Physical Exam 2 Exam: Exam: Appearance: generalised weak,sick appearing ,frial cvs: rrr, [id number]. res: air entry diminshed abd: no guarding ,nd, bs present. ext pulses present , no cyanosis . neuro: seems weak , does not participate . Vital Signs: Vital Signs: Last Vital Signs Temp 101.9 F H 07/15/25 09:16 Pulse 127 H 07/15/25 09:16 Resp 118 H 07/15/25 10:52 BP 99/61 07/15/25 09:16 Pulse Ox 93 07/15/25 09:16 O2 Del Method High Flow Nasal C annula 07/15/25 09:16 O2 Flow Rate 50 07/15/25 09:16 FiO2 50 07/15/25 06:33 BMI result Body Mass Index 25.5 Objective Data Active Medications Acetylcysteine (Acetylcysteine 20 % 6,000 Mg/30 Ml Vial) 600 mg INHALE Q12H PRN PRN Reason: THICK AIRWAY SECRETION Atropine Sulfate (Atropine Sulfate 1 % Ophth Cady 2 Ml Bottle) 1 drop SUBLINGUAL Q6H PRN PRN Reason: Secretions Baclofen (Baclofen 10 Mg Tablet) 5 mg G-TUBE TID [facility] Last Admin: 07/15/25 08:45 Dose: 5 mg Documented By: RG Diazepam (Diazepam 10 Mg/2 Ml Cartridge) 5 mg IVPUSH STAT PRN PRN Reason: Seizures Fluticasone Propionate (Fluticasone Propionate Nasal 16 Gm [place]) 1 spray NOSTRIL-B Q12H PRN PRN Reason: Congestion Heparin Sodium (Porcine) (Heparin Sodium,Porcine 5,000 Unit/Ml Vial) 5,000 unit SUBCUT Q12H [facility] Last Admin: 07/15/25 09:15 Dose: 5,000 unit Documented By: RG Hydromorphone HCl (Hydromorphone Hcl 1 Mg/Ml Syringe) 0.5 mg IVPUSH Q4H PRN; Protocol PRN Reason: Pain, Severe (Pain Scale 7-10) Lactated Ringer's (Lr) 1,000 mls @ 100 mls/hr IVCONT .Q10H [facility] Last Admin: 07/15/25 09:21 Dose: 100 mls/hr Documented By: RG Vancomycin HCl 500 mg/ Sodium (Chloride) 110 mls @ 110 mls/hr IV Q24H [facility] Acetaminophen (Ofirmev) 1,000 mg in 100 mls @ 400 mls/hr IV Q6H [facility] Lacosamide (Lacosamide 100 Mg Tablet) 200 mg G-TUBE BID [facility] Last Admin: 07/15/25 08:44 Dose: 200 mg Documented By: RG Lidocaine (Lidocaine 4 % Patch Adh..Patch) 2 patch TRANSDERMA DAILY [facility]; Protocol Melatonin (Melatonin 3 Mg Tablet) 6 mg G-TUBE BEDTIME PRN PRN Reason: Insomnia Meropenem (Meropenem 500 Mg Vial) 500 mg IVPUSH Q12H [facility] Metoclopramide HCl (Metoclopramide Hcl 10 Mg/2 Ml Vial) 5 mg IVPUSH Q6H PRN PRN Reason: Nausea and Vomiting Last Admin: 07/15/25 01:12 Dose: 5 mg Documented By: EMILIANO Midodrine (Midodrine Hcl 2.5 Mg Tablet) 7.5 mg G-TUBE Q8H [facility]; Protocol Last Admin: 07/15/25 08:44 Dose: 7.5 mg Documented By: RG Midodrine (Midodrine Hcl 10 Mg Tablet) 10 mg G-TUBE Q8H [facility] Non-Formulary Medication (Carboxymethylcellulose Sodium) 2 drop EYE-BOTH BID [facility] Non-Formulary Medication (Carboxymethylcellulose Sodium) 1 drop EYE-BOTH BID PRN PRN Reason: red eyes Ondansetron HCl (Ondansetron Hcl 4 Mg/2 Ml Vial) 4 mg IVPUSH Q6H [facility] Oxycodone HCl (Oxycodone Hcl Immed Release 5 Mg Tablet) 5 mg G-TUBE Q6H PRN PRN Reason: Pain, Moderate(Pain Scale 4-6) Pantoprazole Sodium (Pantoprazole Sodium 40 Mg/10 Ml Vial) 40 mg IVPUSH BID@0630,1630 [facility] Last Admin: 07/15/25 06:35 Dose: 40 mg Documented By: EMILIANO Pharmacy Consult (Consult Rx Vancomycin Dosing) 1 each MISCELLANE DAILY PRN PRN Reason: Consult order Scopolamine (Scopolamine 1.5 Mg Patch.Td.3) mg TRANSDERMA Q3D [facility] Sodium Chloride (0.9 % Sodium Chloride Flush 3 Ml Syringe) 3 ml IVFLUSH QSHIFT [facility] Last Admin: 07/15/25 09:12 Dose: Not Given Documented By: RG Non-Admin Reason: IV Running Vancomycin HCl (Vancomycin Hcl Oral Solution 125 Mg/5 Ml Soln.Recon) 125 mg G- TUBE Q6H [facility] Last Admin: 07/15/25 06:35 Dose: 125 mg Documented By: EMILIANO Labs 07/16/25 03:50 07/16/25 03:50 Labs: Laboratory Results - last 24 hr 07/14/25 07/14/25 07/14/25 18:17 18:21 18:28 MCV 93.6 MCH 31.4 MCHC 33.5 RDW 15.9 Plt Count 321 D MPV 10.1 Immature Gran % (Auto) Cancelled Neut % (Auto) Cancelled Lymph % (Auto) Cancelled Green % (Auto) Cancelled Eos % (Auto) Cancelled Baso % (Auto) Cancelled Lymph # (Auto) Cancelled Green # (Auto) Cancelled Eos # (Auto) Cancelled Baso # (Auto) Cancelled Abs Immat Gran (auto) Cancelled Absolute Neuts (auto) Cancelled Absolute Nucleated RBC 0.000 Nucleated RBC % (auto) 0.0 Neutrophils % (Manual) 94 H Band Neutrophils % 0 L Lymphocytes % (Manual) 1 L Monocytes % (Manual) 5 Abs Neuts (Manual) 23.4 H Lymphocytes # (Manual) 0.2 L Monocytes # (Manual) 1.2 Toxic Vacuolation Dohle Bodies Platelet Estimate NORMAL Plt Morphology Comment NORMAL RBC Morphology NORMAL [place] Cells O2 Saturation ABG pH at Pt Temp ABG pCO2 at Pt Temp ABG pO2 at Pt Temp ABG HCO3 ABG Base Excess (Actual) VBG pH 7.44 H VBG pCO2 30 VBG pO2 134 VBG HCO3 21 L VBG O2 Saturation 99.0 VBG Base Excess -1.8 Anion Gap 20 Estim Creat Clear Calc 19.0 Estimated GFR 15 Random Glucose 108 Lactic Acid 3.8 H* Lactic Acid F/U @ 2Hr Calcium 9.0 Magnesium Total Bilirubin 1.0 Direct Bilirubin 0.7 H AST 36 ALT 51 H Alkaline Phosphatase 246 H Troponin I High Sens < 2.7 D Total Protein 7.3 Albumin 3.7 Urine Color Dark Yellow Urine Appearance Turbid Urine pH 5.5 Ur Specific [place] 1.015 Urine Protein 100 (2+) H Urine Glucose (UA) Negative Urine Ketones Negative Urine Blood Small (1+) H Urine Nitrite Positive H Ur Leukocyte Esterase Large (3+) H Urine RBC 0-2 Urine WBC >50 H Ur Squamous Epith Cells 6-10 Urine Bacteria 4+ Hyaline Casts 3-5 Influenza Type A (PCR) NEGATIVE Influenza Type B (PCR) NEGATIVE RSV RNA Qual (PCR) NEGATIVE SARS-CoV-2 RNA (RT-PCR) NEGATIVE 07/14/25 07/15/25 07/15/25 20:38 02:39 04:26 MCV 91.9 MCH 31.1 MCHC 33.8 RDW 15.9 Plt Count 285 MPV 10.1 Immature Gran % (Auto) Cancelled Neut % (Auto) Cancelled Lymph % (Auto) Cancelled Green % (Auto) Cancelled Eos % (Auto) Cancelled Baso % (Auto) Cancelled Lymph # (Auto) Cancelled Green # (Auto) Cancelled Eos # (Auto) Cancelled Baso # (Auto) Cancelled Abs Immat Gran (auto) Cancelled Absolute Neuts (auto) Cancelled Absolute Nucleated RBC 0.000 Nucleated RBC % (auto) 0.0 Neutrophils % (Manual) 65 Band Neutrophils % 15 H Lymphocytes % (Manual) 6 L Monocytes % (Manual) 14 H Abs Neuts (Manual) 14.6 H Lymphocytes # (Manual) 1.1 L Monocytes # (Manual) 2.6 H Toxic Vacuolation PRESENT Dohle Bodies PRESENT Platelet Estimate NORMAL Plt Morphology Comment NORMAL RBC Morphology NOTED [place] Cells 1+ (0-2) O2 Saturation 99.0 ABG pH at Pt Temp 7.38 ABG pCO2 at Pt Temp 33 ABG pO2 at Pt Temp 95 ABG HCO3 20 L ABG Base Excess (Actual) -4.1 VBG pH VBG pCO2 VBG pO2 VBG HCO3 VBG O2 Saturation VBG Base Excess Anion Gap 19 Estim Creat Clear Calc 17.8 Estimated GFR 14 Random Glucose 112 Lactic Acid Lactic Acid F/U @ 2Hr 1.5 Calcium 8.4 D Magnesium 2.2 Total Bilirubin 1.0 Direct Bilirubin AST 23 ALT 33 Alkaline Phosphatase 214 H Troponin I High Sens Total Protein 6.3 L Albumin 3.1 L Urine Color Urine Appearance Urine pH Ur Specific [place] Urine Protein Urine Glucose (UA) Urine Ketones Urine Blood Urine Nitrite Ur Leukocyte Esterase Urine RBC Urine WBC Ur Squamous Epith Cells Urine Bacteria Hyaline Casts Influenza Type A (PCR) Influenza Type B (PCR) RSV RNA Qual (PCR) SARS-CoV-2 RNA (RT-PCR) Assessment and Plan (1) Acute UTI: Status: Acute (2) Diarrhea: Status: Acute Plan 54-year-old English-speaking male with a past medical history significant for stage IV mantle cell lymphoma (currently in remission), toxoplasmosis with recurrence and now on suppressive therapy, seizure disorder, acute on chronic respiratory failure with tracheostomy, CKD, normocytic anemia, GERD, G-tube dependent, history osteomyelitis and history of C diff colitis, who presented to the ED due to fever, vomiting and hypoxia. Severe sepsis with acute on chronic respiratory failure with hypoxia and acute metabolic encephalopathy secondary to aspiration pneumonia, acute UTI and likely C diff colitis aspirtional pneumonia: Leukocytosis slightly improving, has tachycardia and tachypnea hold G-tube feedings, NPO on high flow ,blood cultures pending moniter respiratory function closely, avoid sedatives, scheduled antiemetic,requent suctioning PRN Continue broad-spectrum antibiotics with vanco/meropenem. UTI and cdiff colitis urine culture pending C diff PCR positive. CT with possible C diff colitis contact precautions placed plan: urine cultures pending vancomycin via gt empirically ,added iv flagyl continue antibiotics as above,ivf. chronic hypotension on midodrine 7.5mg Q8H hold SBP >120 ID consult monitor CBC and BMP acute lactic acidosis:improved with hydration TAMMY on CKD likely secondary to sepsis and fluid losses, cr 4.36 from 1.35 on 06/26/15 IV fluids as above. renal us plan: monitor BMP, avoid nephrotoxins when possible nephrology consult Hx toxoplasmosis hold pyrimethenamine, atovaquone due to NPO/coffee ground Seizure disorder lacosamide chnaged to iv keppra due to npo, diazepam p.r.n. Normocytic anemia - monitor CBC GERD - PPI as above. History osteomyelitis, sacral wounds present on admission - no evidence of infection currently - wound care consult Med rec pending Full code VTE prophylaxis: hold heparin due to coffee ground . onoging need: severe sepsis, acute metabolic encephalopathy and acute hypoxic respiratory failure with multifactorial infections including aspiration pneumonia, UTI and likely C diff, requiring admission for at least 2 midnight stay for IV antibiotics and monitoring. d/w Icu -recommended continue current management, currently recommended to monitor on the floor Also discussed with the patient's healthcare proxy in detail at bedside. Overall prognosis seems guarded Quality Stroke Does the patient have a stroke diagnosis?: No VTE Prior VTE?: No VTE Risk Level:: Medical - moderate - high VTE Device Contraindication: Treatment Not Indicated VTE Drug Contraindication: N/A - Med Ordered
[2025-07-15] MEDS: levETIRAcetam in NaCl (iso-os) 500 MG/100 ML PIGGYBACK 400 MG IV (11:33)
[2025-07-15 11:46] LABS: CDiff Gene PCR POSITIVE (Negative)
[2025-07-15 11:50] LABS: CDIFF Internal ctrl Dots and bkg OK (V); CDiff Toxin Positive (Negative)
[2025-07-15] MEDS: metroNIDAZOLE/NS 500 MG/100 ML PIGGYBACK 100 MG IV ×2 (12:27→21:37)
--- NOTE | 2025-07-15 14:02 | MHC.CM.PN ---
CALL TO(INVOKED) [facility]. COPIES ARE ON FILE. PATIENT IS IN FROM [facility] AND IS TOTAL CARE. G TUBE FOR FEED AND MEDS. PLAN IS FOR RETURN AT TIME OF DC.
[2025-07-15 14:09] LABS: E. coli EAEC Not Detected (Not Detect.); E. coli EPEC Not Detected (Not Detect.); E. coli ETEC Not Detected (Not Detect.); E. coli STEC Not Detected (Not Detect.); Shigella sp./EIEC Not Detected (Not Detect.)
--- NOTE | 2025-07-15 14:33 | MHC.IC ---
POSITIVE CDIFF TOXIN AND NOROVIRUS. STRICT CONTACT PRECAUTIONS, HANDWASHING WITH SOAP AND WATER, SURFACES CLEANING WITH BLEACH
--- NOTE | 2025-07-15 16:08 | W.PM.IDCN ---
History of Present Illness Data of Consult Service Date: 07/15/25 Requesting physician: Jerry Velásquez Primary Care Provider: Florencia Delgado NP HPI Reason for consult: respiratory failure,aspiration pneumoniea,Cdiff He presents with shortness of breath from facility. He has aspiration pneumonia and also Cdiff diarrhea. He is on pyrimethamine at [facility] for [employer] toxoplasmosis prevention due to low CD4 count. He has TAMMY. Review of Systems Review of Systems: Yes Unobtainable due to mental condition PMFSH Past Medical History Medical History Opacity of lung on imaging study Chronic hypoxic respiratory failure Tracheostomy dependent Mantle cell lymphoma Aspiration into airway Stage IV decubitus ulcer Osteomyelitis of pelvis Anemia Toxoplasmosis Encephalopathy [employer] lymphoma Rectal bleeding H/O: RCT (rotator cuff tear) Depression Appendicitis Chronic pain Kidney stone Mantle cell lymphoma Family History Family History Mother COPD (chronic obstructive pulmonary disease) Sister Colon cancer Family history: reviewed and not pertinent Surgical History Surgical History History of appendectomy Social History Social History Household Members: None Housing: Intermediate Housing Other:: [facility] Do you presently have visiting nurse or other home services: No Alcohol intake: unknown Comment: non ambulatory patient Patient Tobacco Use Status: Never used Tobacco Smoked in Last 30 Days: No Second Hand Smoke Exposure: No Use of substances other than those prescribed or required for medical reasons: No Substance Use Type: Unknown Advance Directives: Yes Advance Directives on File: Yes Advance Directives Date on File: 10/02/24 Do you have a plan to hurt others: No Plan Nutrition Risks: Acute nausea or vomiting x1 week, Difficulty chewing, Difficulty swallowing and On aspiration precautions service: No Current occupational status: unemployed Meds Allergies Allergy/AdvReac Type Severity Reaction Status Date / Time cyclobenzaprine (Flexeril) Allergy Unknown Palpitation Verified 07/14/25 18:01 s Active Medications: Current Medications Acetylcysteine (Acetylcysteine 20 % 6,000 Mg/30 Ml Vial) 600 mg INHALE Q12H PRN PRN Reason: THICK AIRWAY SECRETION Albuterol Sulfate (Albuterol Sulfate (0.083%) 2.5 Mg/3 Ml Vial.Neb) 2.5 mg INHALE Q4H PRN PRN Reason: Shortness Of Breath Or Wheezing Artificial Tears (Artificial Tears 15 Ml Drops) 2 drop EYE-BOTH BID RACHELL Artificial Tears (Artificial Tears 15 Ml Drops) 1 drop EYE-BOTH BID PRN PRN Reason: red eyes Atovaquone (Atovaquone 750 Mg/5 Ml Oral.Susp) 750 mg G-TUBE BID RACHELL Atropine Sulfate (Atropine Sulfate 1 % Ophth Cady 2 Ml Bottle) 1 drop SUBLINGUAL Q6H PRN PRN Reason: Secretions Baclofen (Baclofen 10 Mg Tablet) 5 mg G-TUBE TID RACHELL On Hold: 07/15/25 14:22 Last Admin: 07/15/25 08:45 Dose: 5 mg Diazepam (Diazepam 10 Mg/2 Ml Cartridge) 5 mg IVPUSH STAT PRN PRN Reason: Seizures Fidaxomicin (Fidaxomicin 200 Mg Tablet) 200 mg G-TUBE Q12H [facility] Fluticasone Propionate (Fluticasone Propionate Nasal 16 Gm Pana) 1 spray NOSTRIL-B Q12H PRN PRN Reason: Congestion Heparin Sodium (Porcine) (Heparin Sodium,Porcine 5,000 Unit/Ml Vial) 5,000 unit SUBCUT Q12H RACHELL On Hold: 07/15/25 12:05 Last Admin: 07/15/25 09:15 Dose: 5,000 unit Hydromorphone HCl (Hydromorphone Hcl 1 Mg/Ml Syringe) 0.5 mg IVPUSH Q4H PRN; Protocol On Hold: 07/15/25 14:54 PRN Reason: Pain, Severe (Pain Scale 7-10) Lactated Ringer's (Lr) 1,000 mls @ 100 mls/hr IVCONT .Q10H [facility] Last Admin: 07/15/25 09:21 Dose: 100 mls/hr Vancomycin HCl 500 mg/ Sodium (Chloride) 110 mls @ 110 mls/hr IV Q24H [facility] Acetaminophen (Ofirmev) 1,000 mg in 100 mls @ 400 mls/hr IV Q6H [facility] Metronidazole (Flagyl) 500 mg in 100 mls @ 100 mls/hr IV Q8H [facility] Last Infusion: 07/15/25 14:03 Dose: Infused Ipratropium Benton (Ipratropium Benton 0.5 Mg/2.5 Ml Solution) 0.5 mg INHALE Q6H PRN PRN Reason: Shortness of Breath Lacosamide (Lacosamide 100 Mg Tablet) 200 mg G-TUBE BID [facility] Lidocaine (Lidocaine 4 % Patch Adh..Patch) 2 patch TRANSDERMA DAILY [facility]; Protocol Melatonin (Melatonin 3 Mg Tablet) 6 mg G-TUBE BEDTIME PRN PRN Reason: Insomnia Meropenem (Meropenem 500 Mg Vial) 500 mg IVPUSH Q12H [facility] Metoclopramide HCl (Metoclopramide Hcl 10 Mg/2 Ml Vial) 5 mg IVPUSH Q6H PRN PRN Reason: Nausea and Vomiting Last Admin: 07/15/25 01:12 Dose: 5 mg Midodrine (Midodrine Hcl 10 Mg Tablet) 10 mg G-TUBE TID@0900,1300,1700 [facility]; Protocol Last Admin: 07/15/25 12:27 Dose: 10 mg Non-Formulary Medication (Leucovorin Calcium) 25 mg feeding tube BEDTIME [facility] Non-Formulary Medication (Pyrimethamine) 50 mg feeding tube BEDTIME RACHELL Ondansetron HCl (Ondansetron Hcl 4 Mg/2 Ml Vial) 4 mg IVPUSH Q6H [facility]AC[facility] Oxycodone HCl (Oxycodone Hcl Immed Release 5 Mg Tablet) 5 mg G-TUBE Q6H PRN On Hold: 07/15/25 14:55 PRN Reason: Pain, Moderate(Pain Scale 4-6) Pantoprazole Sodium (Pantoprazole Sodium 40 Mg/10 Ml Vial) 40 mg IVPUSH BID@0630,1630 [facility] Last Admin: 07/15/25 06:35 Dose: 40 mg Pharmacy Consult (Consult Rx Vancomycin Dosing) 1 each MISCELLANE DAILY PRN PRN Reason: Consult order Scopolamine (Scopolamine 1.5 Mg Patch.Td.3) 1.5 mg TRANSDERMA Q3D [facility] Last Admin: 07/15/25 11:33 Dose: 1.5 mg Sodium Chloride (0.9 % Sodium Chloride Flush 3 Ml Syringe) 3 ml IVFLUSH QSHIFT [facility] Last Admin: 07/15/25 09:12 Dose: Not Given Sucralfate (Sucralfate 1 Gm Tablet) 1 gm PO BID@1300,1700 [facility] Home Medications ?Medication ?Instructions ?Recorded ?Confirmed ?Last Taken ?Type acetaminophen 325 mg tablet 650 mg feeding tube Q4H PRN Fever 01/02/23 07/15/25 07/14/25 History Or Pain albuterol sulfate 2.5 mg/3 mL 2.5 mg inhalation Q4H PRN 01/02/23 07/15/25 Unknown History (0.083 %) solution for nebulization Shortness Of Breath Or Wheezing atovaquone 750 mg/5 mL oral 750 mg feeding tube BID 01/02/23 07/15/25 07/14/25 History suspension bisacodyl 10 mg rectal suppository 10 mg DE DAILY PRN Constipation if 01/02/23 07/15/25 Unknown History no BM after 8 hours following MoM cholecalciferol (vitamin D3) 1,250 1,250 mcg feeding tube QMONTH 01/02/23 07/15/25 06/29/25 History mcg (50,000 unit) tablet finasteride 5 mg tablet 5 mg feeding tube BEDTIME 01/02/23 07/15/25 07/14/25 History guaifenesin 200 mg/5 mL oral liquid 200 mg feeding tube Q4H PRN Cough 01/02/23 07/15/25 Unknown History lacosamide 200 mg tablet 200 mg feeding tube BID 01/02/23 07/15/25 07/14/25 History leucovorin calcium 25 mg tablet 25 mg feeding tube BEDTIME 01/02/23 07/15/25 07/14/25 History lorazepam 0.5 mg tablet 0.5 mg feeding tube Q8H PRN Anxiety 01/02/23 07/15/25 09/30/24 09:05 History magnesium hydroxide 400 mg/5 mL 30 ml feeding tube DAILY PRN 01/02/23 07/15/25 Unknown History oral suspension (Milk of Magnesia) Constipation melatonin 3 mg tablet 3 mg feeding tube BEDTIME 01/02/23 07/15/25 07/14/25 History ondansetron HCl 2 mg/mL 4 mg IM Q4H PRN Nausea And Vomiting 01/02/23 07/15/25 07/14/25 History intravenous solution oxycodone 5 mg tablet 5 mg feeding tube Q6H PRN Pain 01/02/23 07/15/25 09/22/23 10:02 History (Scale Score 7-10) scopolamine base 1 mg over 3 days 1 patch transdermal Q3D 01/02/23 07/15/25 07/14/25 History transdermal patch sennosides 8.6 mg-docusate sodium 2 tab-cap PO BID@0900,1700 01/02/23 07/15/25 07/14/25 History 50 mg tablet (Senna with Docusate Constipation Sodium) sodium phosphates 19 gram-7 118 ml DE DAILY PRN Constipation 01/02/23 07/15/25 Unknown History gram/118 mL enema (Fleet Enema) tramadol 50 mg tablet 50 mg feeding tube Q4H PRN Pain 01/02/23 07/15/25 Unknown History (Scale Score 1-3) multivitamin 1 tab feeding tube DAILY 01/31/23 07/15/25 07/14/25 History pyrimethamine 25 mg tablet 50 mg feeding tube BEDTIME 01/31/23 07/15/25 07/14/25 History carboxymethylcellulose sodium 0.25 2 drp ophthalmic (eye) BID 06/04/23 07/15/25 07/14/25 History % eye drops morphine 10 mg/5 mL oral solution 5 mg feeding tube DAILY 06/04/23 07/15/25 07/14/25 History sucralfate 1 gram tablet 1 g PO BID@1300,1700 06/04/23 07/15/25 07/14/25 History acetylcysteine 200 mg/mL (20 %) 600 mg inhalation Q12H PRN THICK 09/22/23 07/15/25 Unknown History solution AIRWAY SECRETION ibuprofen 600 mg tablet 600 mg feeding tube Q8H PRN 09/22/23 07/15/25 09/04/24 16:36 History FEVER/PAIN UNRESPONSIVE TO APAP 600 mg midodrine 5 mg tablet 10 mg feeding tube Q8H 01/27/24 07/15/25 07/14/25 History polyethylene glycol 3350 17 gram 17 g feeding tube Q48H 01/27/24 07/15/25 09/04/24 16:36 History oral powder packet (Miralax) simethicone 80 mg chewable tablet 80 mg feeding tube Q6H 01/27/24 07/15/25 09/30/24 05:51 History baclofen 5 mg tablet 5 mg feeding tube TID 09/05/24 07/15/25 07/14/25 History lidocaine 4 % topical patch 2 patch topical DAILY 09/05/24 07/15/25 07/14/25 History carboxymethylcellulose sodium 0.25 1 drp ophthalmic (eye) BID PRN red 09/30/24 07/15/25 Unknown History % eye drops eyes emollient combination no.119 1 appl topical DAILY 09/30/24 07/15/25 07/14/25 History (Eucerin Advanced Repair topical cream) ondansetron HCl 4 mg tablet 4 mg PO Q4H PRN no relief after 09/30/24 07/15/25 07/14/25 History 1st dose of zofran acetaminophen 650 mg rectal 650 mg DE Q6H PRN Fever Or Pain 07/15/25 07/15/25 Unknown History suppository atropine 1 % eye drops 1 drp sublingual Q6H PRN Secretions 07/15/25 07/15/25 Unknown History esomeprazole magnesium 40 mg 40 mg feeding tube DAILY 07/15/25 07/15/25 07/14/25 History capsule,delayed release famotidine 20 mg tablet 20 mg PO BID 07/15/25 07/15/25 07/14/25 History fluticasone propionate 50 1 spray intranasal Q12H PRN 07/15/25 07/15/25 Unknown History mcg/actuation nasal Congestion spray,suspension ipratropium bromide 0.02 % 2.5 ml inhalation Q6H PRN 07/15/25 07/15/25 07/14/25 History solution for inhalation Shortness Of Breath linaclotide 145 mcg capsule 145 mcg PO DAILY 07/15/25 07/15/25 Unknown History naloxone 0.4 mg/mL injection 0.4 mg subcut Q2M PRN Opioid 07/15/25 07/15/25 Unknown History solution Overdose Physical Exam Vital Signs: Vital Signs: Last Vital Signs Temp 99.5 F 07/15/25 12:16 Pulse 119 H 07/15/25 12:16 Resp 20 07/15/25 15:46 BP 103/67 07/15/25 12:27 Pulse Ox 95 07/15/25 12:16 O2 Del Method High Flow Nasal C annula, Trach Edy ar 07/15/25 12:16 O2 Flow Rate 50 07/15/25 12:16 FiO2 50 07/15/25 06:33 BMI result Body Mass Index 25.5 Const: General: cooperative HEENT: Head: Yes normal to inspection Face and sinus: Yes normal facial exam Mouth: Normal oral and palatal mucosa present Teeth and gingiva: dentition normal Eyes: General: appearance normal, both eyes and all related structures Pupils: Equal, round and reactive pupils present Resp: Other: rhonchi bases Cardio: Rate: regular rate Rhythm: regular rhythm GI: Other: feeding tube Palpation (GI): Soft to palpation and nontender : General: Yes no CVA tenderness Back/Spine/Pelvis: Back: no CVA tenderness Skin: General skin exam: no rashes or lesions noted Neuro: General: moves all extremities Cranial nerves: Yes Equal, round and reactive pupils present Extrem: General: Yes normal to inspection Psych: Other: nonverbal male Results Labs 07/15/25 04:26 07/15/25 04:26 Labs: Short CBC 07/14/25 07/15/25 Range/Units 18:17 04:26 WBC 24.9 H 18.3 H (4.8-10.8) X10*3/uL Hgb 12.3 L 11.5 L (14.0-18.0) g/dl Hct 36.7 L 34.0 L (42.0-52.0) % Plt Count 321 D 285 (160-400) X10*3/uL BMP 07/14/25 07/15/25 18:17 04:26 Sodium 132 L 133 L Potassium 3.7 3.3 Chloride 93 L 99 Carbon Dioxide 23 18 L BUN 69 H 77 H Creatinine 4.09 H* 4.36 H* Calcium 9.0 8.4 D Liver Function 07/14/25 07/15/25 Range/Units 18:17 04:26 Total Bilirubin 1.0 1.0 (0.0-1.0) mg/dL Direct Bilirubin 0.7 H (0.0-0.5) mg/dL AST 36 23 (5-37) U/L ALT 51 H 33 (0-40) U/L Alkaline Phosphatase 246 H 214 H (39-117) U/L Albumin 3.7 3.1 L (3.5-5.0) g/dL Urine 07/14/25 Range/Units 18:21 Urine Color Dark Yellow Urine Appearance Turbid Urine pH 5.5 (5.0-9.0) Ur Specific Chase 1.015 (1.005-1.025) Urine Protein 100 (2+) H (Neg-Trace) mg/dL Urine Glucose (UA) Negative (Negative) mg/dL Microbiology Microbiology Results: Microbiology 07/14/25 18:17 Blood - Venous Blood Culture - Preliminary Prelim: GPC Gram Stain only 07/15/25 07:48 Sputum - Expectorated Gram Stain - Final 07/14/25 Unknown Urine clean catch - Clean Catch Midstream Urine Culture - Preliminary Culture in progress. Assessment and Plan (1) Diarrhea: Status: Acute (2) Toxoplasmosis: Status: Acute (3) Acute and chronic respiratory failure with hypoxia: Status: Acute Plan Merem and Vancomycin 7 days appropriate for aspiration pneumonia,stop Vancomycin if MRSA nares negative. Would also continue IV Flagyl and GT fidaxomicin for severe CDiff,TAMMY until improved and then po fidaxomicin for 10 d total. Change pyrimethamine to po atovaquone for [employer] toxoplasmosis prophylaxis.
--- NOTE | 2025-07-15 17:30 | PM.CNNEP ---
History of Present Illness Reason for Consult Consult date: 07/15/25 Chief Complaint Chief complaint: Severe sepsis, UTI History of Present Illness Narrative: History is limited as patient is tracheostomy rest and no family members at bedside 54-year-old Swedish-speaking male who is status post trach and PEG, bed-bound at baseline with PMH of stage IV mantle cell lymphoma (currently in remission), toxoplasmosis with recurrence and now on suppressive therapy, seizure disorder, acute on, normocytic anemia, GERD, history osteomyelitis and history of C diff colitis, presented with fever, vomiting and diarrhea. He has a history of C diff recently. His baseline creatinine is normal, today elevated to 4.36 so nephrology is consulted Review of Systems Review of Systems Unable to obtain [facility] Past Medical History Medical History Opacity of lung on imaging study Chronic hypoxic respiratory failure Tracheostomy dependent Mantle cell lymphoma Aspiration into airway Stage IV decubitus ulcer Osteomyelitis of pelvis Anemia Toxoplasmosis Encephalopathy [employer] lymphoma Rectal bleeding H/O: RCT (rotator cuff tear) Depression Appendicitis Chronic pain Kidney stone Mantle cell lymphoma Family History Family History Mother COPD (chronic obstructive pulmonary disease) Sister Colon cancer Family history: reviewed and not pertinent Surgical History Surgical History History of appendectomy Social History Social History Household Members: None Housing: [facility] Housing Other:: [facility] Do you presently have visiting nurse or other home services: No Alcohol intake: unknown Comment: non ambulatory patient Patient Tobacco Use Status: Never used Tobacco Smoked in Last 30 Days: No Second Hand Smoke Exposure: No Use of substances other than those prescribed or required for medical reasons: No Substance Use Type: Unknown Advance Directives: Yes Advance Directives on File: Yes Advance Directives Date on File: 10/02/24 Do you have a plan to hurt others: No Plan Nutrition Risks: Acute nausea or vomiting x1 week, Difficulty chewing, Difficulty swallowing and On aspiration precautions service: No Current occupational status: unemployed Meds Allergies Allergy/AdvReac Type Severity Reaction Status Date / Time cyclobenzaprine (Flexeril) Allergy Unknown Palpitation Verified 07/14/25 18:01 s Active Medications: Current Medications Acetylcysteine (Acetylcysteine 20 % 6,000 Mg/30 Ml Vial) 600 mg INHALE Q12H PRN PRN Reason: THICK AIRWAY SECRETION Albuterol Sulfate (Albuterol Sulfate (0.083%) 2.5 Mg/3 Ml Vial.Neb) 2.5 mg INHALE Q4H PRN PRN Reason: Shortness Of Breath Or Wheezing Artificial Tears (Artificial Tears 15 Ml Drops) 2 drop EYE-BOTH BID RACHELL Artificial Tears (Artificial Tears 15 Ml Drops) 1 drop EYE-BOTH BID PRN PRN Reason: red eyes Atovaquone (Atovaquone 750 Mg/5 Ml Oral.Susp) 750 mg G-TUBE BID RACHELL Atropine Sulfate (Atropine Sulfate 1 % Ophth Cady 2 Ml Bottle) 1 drop SUBLINGUAL Q6H PRN PRN Reason: Secretions Baclofen (Baclofen 10 Mg Tablet) 5 mg G-TUBE TID RACHELL On Hold: 07/15/25 14:22 Last Admin: 07/15/25 08:45 Dose: 5 mg Diazepam (Diazepam 10 Mg/2 Ml Cartridge) 5 mg IVPUSH STAT PRN PRN Reason: Seizures Fidaxomicin (Fidaxomicin 200 Mg Tablet) 200 mg G-TUBE Q12H [facility] Fluticasone Propionate (Fluticasone Propionate Nasal 16 Gm [place]) 1 spray NOSTRIL-B Q12H PRN PRN Reason: Congestion Heparin Sodium (Porcine) (Heparin Sodium,Porcine 5,000 Unit/Ml Vial) 5,000 unit SUBCUT Q12H [facility] On Hold: 07/15/25 12:05 Last Admin: 07/15/25 09:15 Dose: 5,000 unit Hydromorphone HCl (Hydromorphone Hcl 1 Mg/Ml Syringe) 0.5 mg IVPUSH Q4H PRN; Protocol On Hold: 07/15/25 14:54 PRN Reason: Pain, Severe (Pain Scale 7-10) Lactated Ringer's (Lr) 1,000 mls @ 100 mls/hr IVCONT .Q10H [facility] Last Admin: 07/15/25 09:21 Dose: 100 mls/hr Vancomycin HCl 500 mg/ Sodium (Chloride) 110 mls @ 110 mls/hr IV Q24H [facility] Acetaminophen (Ofirmev) 1,000 mg in 100 mls @ 400 mls/hr IV Q6H [facility] Last Admin: 07/15/25 16:10 Dose: 400 mls/hr Metronidazole (Flagyl) 500 mg in 100 mls @ 100 mls/hr IV Q8H [facility] Last Infusion: 07/15/25 14:03 Dose: Infused Ipratropium [place] (Ipratropium [place] 0.5 Mg/2.5 Ml Solution) 0.5 mg INHALE Q6H PRN PRN Reason: Shortness of Breath Lacosamide (Lacosamide 100 Mg Tablet) 200 mg G-TUBE BID [facility] Lidocaine (Lidocaine 4 % Patch Adh..Patch) 2 patch TRANSDERMA DAILY [facility]; Protocol Melatonin (Melatonin 3 Mg Tablet) 6 mg G-TUBE BEDTIME PRN PRN Reason: Insomnia Meropenem (Meropenem 500 Mg Vial) 500 mg IVPUSH Q12H [facility] Metoclopramide HCl (Metoclopramide Hcl 10 Mg/2 Ml Vial) 5 mg IVPUSH Q6H PRN PRN Reason: Nausea and Vomiting Last Admin: 07/15/25 01:12 Dose: 5 mg Midodrine (Midodrine Hcl 10 Mg Tablet) 10 mg G-TUBE TID@0900,1300,1700 [facility]; Protocol Last Admin: 07/15/25 16:10 Dose: 10 mg Non-Formulary Medication (Leucovorin Calcium) 25 mg feeding tube BEDTIME [facility] Non-Formulary Medication (Pyrimethamine) 50 mg feeding tube BEDTIME [facility] Ondansetron HCl (Ondansetron Hcl 4 Mg/2 Ml Vial) 4 mg IVPUSH Q6H [facility] Last Admin: 07/15/25 16:09 Dose: 4 mg Oxycodone HCl (Oxycodone Hcl Immed Release 5 Mg Tablet) 5 mg G-TUBE Q6H PRN On Hold: 07/15/25 14:55 PRN Reason: Pain, Moderate(Pain Scale 4-6) Pantoprazole Sodium (Pantoprazole Sodium 40 Mg/10 Ml Vial) 40 mg IVPUSH BID@0630,1630 [facility] Last Admin: 07/15/25 16:09 Dose: 40 mg Pharmacy Consult (Consult Rx Vancomycin Dosing) 1 each MISCELLANE DAILY PRN PRN Reason: Consult order Scopolamine (Scopolamine 1.5 Mg Patch.Td.3) 1.5 mg TRANSDERMA Q3D [facility] Last Admin: 07/15/25 11:33 Dose: 1.5 mg Sodium Chloride (0.9 % Sodium Chloride Flush 3 Ml Syringe) 3 ml IVFLUSH QSHIFT [facility] Last Admin: 07/15/25 09:12 Dose: Not Given Sucralfate (Sucralfate 1 Gm Tablet) 1 gm PO BID@1300,1700 [facility] Last Admin: 07/15/25 16:10 Dose: 1 gm Home Medications ?Medication ?Instructions ?Recorded ?Confirmed ?Last Taken ?Type acetaminophen 325 mg tablet 650 mg feeding tube Q4H PRN Fever 01/02/23 07/15/25 07/14/25 History Or Pain albuterol sulfate 2.5 mg/3 mL 2.5 mg inhalation Q4H PRN 01/02/23 07/15/25 Unknown History (0.083 %) solution for nebulization Shortness Of Breath Or Wheezing atovaquone 750 mg/5 mL oral 750 mg feeding tube BID 01/02/23 07/15/25 07/14/25 History suspension bisacodyl 10 mg rectal suppository 10 mg TX DAILY PRN Constipation if 01/02/23 07/15/25 Unknown History no BM after 8 hours following MoM cholecalciferol (vitamin D3) 1,250 1,250 mcg feeding tube QMONTH 01/02/23 07/15/25 06/29/25 History mcg (50,000 unit) tablet finasteride 5 mg tablet 5 mg feeding tube BEDTIME 01/02/23 07/15/25 07/14/25 History guaifenesin 200 mg/5 mL oral liquid 200 mg feeding tube Q4H PRN Cough 01/02/23 07/15/25 Unknown History lacosamide 200 mg tablet 200 mg feeding tube BID 01/02/23 07/15/25 07/14/25 History leucovorin calcium 25 mg tablet 25 mg feeding tube BEDTIME 01/02/23 07/15/25 07/14/25 History lorazepam 0.5 mg tablet 0.5 mg feeding tube Q8H PRN Anxiety 01/02/23 07/15/25 09/30/24 09:05 History magnesium hydroxide 400 mg/5 mL 30 ml feeding tube DAILY PRN 01/02/23 07/15/25 Unknown History oral suspension (Milk of Magnesia) Constipation melatonin 3 mg tablet 3 mg feeding tube BEDTIME 01/02/23 07/15/25 07/14/25 History ondansetron HCl 2 mg/mL 4 mg IM Q4H PRN Nausea And Vomiting 01/02/23 07/15/25 07/14/25 History intravenous solution oxycodone 5 mg tablet 5 mg feeding tube Q6H PRN Pain 01/02/23 07/15/25 09/22/23 10:02 History (Scale Score 7-10) scopolamine base 1 mg over 3 days 1 patch transdermal Q3D 01/02/23 07/15/25 07/14/25 History transdermal patch sennosides 8.6 mg-docusate sodium 2 tab-cap PO BID@0900,1700 01/02/23 07/15/25 07/14/25 History 50 mg tablet (Senna with Docusate Constipation Sodium) sodium phosphates 19 gram-7 118 ml TX DAILY PRN Constipation 01/02/23 07/15/25 Unknown History gram/118 mL enema (Fleet Enema) tramadol 50 mg tablet 50 mg feeding tube Q4H PRN Pain 01/02/23 07/15/25 Unknown History (Scale Score 1-3) multivitamin 1 tab feeding tube DAILY 01/31/23 07/15/25 07/14/25 History pyrimethamine 25 mg tablet 50 mg feeding tube BEDTIME 01/31/23 07/15/25 07/14/25 History carboxymethylcellulose sodium 0.25 2 drp ophthalmic (eye) BID 06/04/23 07/15/25 07/14/25 History % eye drops morphine 10 mg/5 mL oral solution 5 mg feeding tube DAILY 06/04/23 07/15/25 07/14/25 History sucralfate 1 gram tablet 1 g PO BID@1300,1700 06/04/23 07/15/25 07/14/25 History acetylcysteine 200 mg/mL (20 %) 600 mg inhalation Q12H PRN THICK 09/22/23 07/15/25 Unknown History solution AIRWAY SECRETION ibuprofen 600 mg tablet 600 mg feeding tube Q8H PRN 09/22/23 07/15/25 09/04/24 16:36 History FEVER/PAIN UNRESPONSIVE TO APAP 600 mg midodrine 5 mg tablet 10 mg feeding tube Q8H 01/27/24 07/15/25 07/14/25 History polyethylene glycol 3350 17 gram 17 g feeding tube Q48H 01/27/24 07/15/25 09/04/24 16:36 History oral powder packet (Miralax) simethicone 80 mg chewable tablet 80 mg feeding tube Q6H 01/27/24 07/15/25 09/30/24 05:51 History baclofen 5 mg tablet 5 mg feeding tube TID 09/05/24 07/15/25 07/14/25 History lidocaine 4 % topical patch 2 patch topical DAILY 09/05/24 07/15/25 07/14/25 History carboxymethylcellulose sodium 0.25 1 drp ophthalmic (eye) BID PRN red 09/30/24 07/15/25 Unknown History % eye drops eyes emollient combination no.119 1 appl topical DAILY 09/30/24 07/15/25 07/14/25 History (Eucerin Advanced Repair topical cream) ondansetron HCl 4 mg tablet 4 mg PO Q4H PRN no relief after 09/30/24 07/15/25 07/14/25 History 1st dose of zofran acetaminophen 650 mg rectal 650 mg TX Q6H PRN Fever Or Pain 07/15/25 07/15/25 Unknown History suppository atropine 1 % eye drops 1 drp sublingual Q6H PRN Secretions 07/15/25 07/15/25 Unknown History esomeprazole magnesium 40 mg 40 mg feeding tube DAILY 07/15/25 07/15/25 07/14/25 History capsule,delayed release famotidine 20 mg tablet 20 mg PO BID 07/15/25 07/15/25 07/14/25 History fluticasone propionate 50 1 spray intranasal Q12H PRN 07/15/25 07/15/25 Unknown History mcg/actuation nasal Congestion spray,suspension ipratropium bromide 0.02 % 2.5 ml inhalation Q6H PRN 07/15/25 07/15/25 07/14/25 History solution for inhalation Shortness Of Breath linaclotide 145 mcg capsule 145 mcg PO DAILY 07/15/25 07/15/25 Unknown History naloxone 0.4 mg/mL injection 0.4 mg subcut Q2M PRN Opioid 07/15/25 07/15/25 Unknown History solution Overdose Physical Exam Vital Signs: Last Vital Signs Temp 99.5 F 07/15/25 12:16 Pulse 119 H 07/15/25 12:16 Resp 20 07/15/25 15:46 BP 105/72 07/15/25 16:10 Pulse Ox 95 07/15/25 12:16 O2 Del Method High Flow Nasal Cannula, Trach Collar 07/15/25 12:16 O2 Flow Rate 50 07/15/25 12:16 FiO2 50 07/15/25 06:33 BMI result Body Mass Index 25.5 General: Elderly male in severe acute distress, ill appearing and tired appearing Nutritional Appearance: w cachectic, under nourished Eyes: appearance normal, both eyes and all related structures; Alignment and Position: alignment normal and position normal Neck: No lymphadenopathy, no thyromegaly, tracheostomy in place Resp: bilateral air entry equal, occasional added sounds present Cardio: Regular rate, regular rhythm; Heart sounds: S1 normal heart sound present and S2 normal heart sound present GI: soft, nontender, no guarding, no hepatosplenomegaly : bladder normal to inspection, bladder normal to palpation, no renal angle tenderness Skin: no rashes or lesions noted and elasticity normal Neuro: Chronic neuro deficits Results Lab Results 07/15/25 04:26 07/15/25 04:26 Lab results: Chemistry 07/14/25 07/15/25 18:17 04:26 Sodium 132 L 133 L Potassium 3.7 3.3 Carbon Dioxide 23 18 L BUN 69 H 77 H Creatinine 4.09 H* 4.36 H* Calcium 9.0 8.4 D Hematology 07/14/25 07/15/25 18:17 04:26 WBC 24.9 H 18.3 H Hgb 12.3 L 11.5 L Plt Count 321 D 285 Urinalysis 07/14/25 18:21 Urine Color Dark Yellow Urine Appearance Turbid Urine pH 5.5 Ur Specific [place] 1.015 Urine Protein 100 (2+) H Urine Glucose (UA) Negative Urine Ketones Negative Urine Blood Small (1+) H Urine Nitrite Positive H Ur Leukocyte Esterase Large (3+) H Urine RBC 0-2 Urine WBC >50 H Ur Squamous Epith Cells 6-10 Hyaline Casts 3-5 Assessment and Plan (1) Acute kidney injury superimposed on CKD: Status: Acute (2) Acute UTI: Status: Acute (3) Acute and chronic respiratory failure with hypoxia: Status: Acute (4) Aspiration pneumonia: Qualifiers: Aspiration pneumonia type: due to gastric secretions Laterality: bilateral Lung location: unspecified part of lung Qualified Code(s): J69.0 - Pneumonitis due to inhalation of food and vomit Status: Acute (5) Rectal bleeding: Status: Acute Plan Acute kidney injury: Possibly secondary to hypovolemia should improve with IV fluid replacement if it does not improve swiftly possibly has a component of ATN secondary to severe volume depletion. Baseline creatinine normal, increased to 4.36 this morning Renal ultrasound showed no obstruction, right kidney 10 cm, left kidney 12 cm UA showing 2+ protein, nitrate positive, leukocyte esterase positive greater than 50 WBCs possibly suggesting a UTI, please get urine cultures Continue antibiotics Acute hyponatremia: Should correct with volume replacement Sodium 133 this morning Procedures Date of Service Date of Service: 07/15/25
[2025-07-15 17:52] LABS: Hematocrit 33.4 % (42.0-52.0); Hemoglobin 11.4 g/dl (14.0-18.0)
[2025-07-15 18:08] LABS: Anion Gap 17 (12-20); Blood Urea Nitrogen 84 mg/dL (9-16); Calcium 8.4 mg/dL (8.4-10.2); Carbon Dioxide 20 mmol/L (22-29); Chloride 99 mmol/L (96-108); Creatinine Clr Calc Pharmacy 16.4; Estimated Glomerular Filt Rate 13; Potassium 3.6 mmol/L (3.3-5.1); Sodium 132 mmol/L (135-145)
--- NOTE | 2025-07-15 18:10 | PC.NURSE ---
Critical Result of creat 4.75, primary RN Abiodun and Dr. Velásquez made aware.
--- NOTE | 2025-07-15 21:31 | PC.NURSE ---
Assumed care of this Pt at 2044.
[2025-07-16] VITALS (18 sets, daily range): BP systolic 95–120; BP diastolic 61–74; PULSE 84–130; RESP 15–35; TEMP 36.8–38.1; O2SAT 92–100
--- NOTE | 2025-07-16 03:46 | PC.NURSE ---
RT at bedside suctioning patient.
[2025-07-16 04:10] LABS: Hematocrit 34.2 % (42.0-52.0); Hemoglobin 11.6 g/dl (14.0-18.0); Mean Corpuscular HGB Conc 33.9 g/dl (31.0-36.0); Mean Corpuscular Hemoglobin 30.6 pg (27.0-33.0); Mean Corpuscular Volume 90.2 fL (80.0-98.0); NRBC Abs Auto 0.000 X10*3/uL (0.0-0.012); NRBC Pct Auto 0.0 /100WBC (0.0-0.2); Platelet Count 316 X10*3/uL (160-400); Red Blood Count 3.79 X10*6/uL (4.60-5.80)
[2025-07-16 04:22] LABS: WBC ABN SCTR FOR CBC 1
[2025-07-16 04:36] LABS: Alanine Aminotransferase 20 U/L (0-40); Albumin Level 2.7 g/dL (3.5-5.0); Alkaline Phosphatase 178 U/L (39-117); Anion Gap 20 (12-20); Aspartate Amino Transferase 31 U/L (5-37); Blood Urea Nitrogen 89 mg/dL (9-16); Calcium 8.3 mg/dL (8.4-10.2); Carbon Dioxide 18 mmol/L (22-29); Chloride 99 mmol/L (96-108); Creatinine Clr Calc Pharmacy 15.3; Estimated Glomerular Filt Rate 12; Magnesium 2.5 mg/dL (1.6-2.6); Potassium 3.5 mmol/L (3.3-5.1); Sodium 133 mmol/L (135-145); Total Protein 5.8 g/dL (6.5-8.0)
[2025-07-16] MEDS: metroNIDAZOLE/NS 500 MG/100 ML PIGGYBACK 100 MG IV ×3 (05:05→20:36)
[2025-07-16 05:27] LABS: Band Neutrophils Percent 25 % (3-5); Burr Cells 3+ (>5) /OIF; Dohle Bodies PRESENT; Large Platelet PRESENT; Lymphocytes Percent Manual 3 % (20-40); Monocytes Percent Manual 7 % (2-11); Neutrophils Percent Manual 65 % (45-73); RBC Morphology NOTED; Toxic Granulation PRESENT; Toxic Vacuolation PRESENT
[2025-07-16 05:28] LABS: Lymphocytes Absolute Manual 0.7 X10*3/uL (1.2-4.9); Monocytes Absolute Manual 1.7 X10*3/uL (0.1-1.2); Neutrophils Absolute Manual 21.5 X10*3/uL (2.0-8.3); White Blood Count 23.9 X10*3/uL (4.8-10.8)
--- NOTE | 2025-07-16 05:45 | PC.NURSE ---
Report given to short stay RN.
[2025-07-16] MEDS: Lactated Ringers 1,000 ML 100 ML IVCONT ×2 (06:18→14:10)
--- NOTE | 2025-07-16 07:59 | P.CONAN_ITS ---
HPI - Anesthesia Eval Consult details Narrative: 54 yr old male for upper EGD Chronic hypoxic repiratory failure: trach dependent, non-verbal at baseline; O2 settings high flow 40, FiO2 45. Sats are mid to low 90s. Aspiration pneumonia: chest CT shows Tracheostomy tube is within the thoracic inlet. Mild patchy ground-glass opacities in both lungs may represent small volume aspiration or mild fluid overload. Tiny left pleural effusion and bibasilar atelectatic changes. Metabolic encephalopathy/sepsis/acute renal failure: lactic acid 3.8 on 07/14/25, electrolytes WNL, creat 5.08 Hematemesis: ?blackish material from trach, Gtube lavage showed coffee ground return per Dr. Espinosa's note 07/15/25. H/H stable 11.6/34.2, normal platelets 316. Acute renal failure: Possibly secondary to hypovolemia should improve with IV fluid replacement if it does not improve swiftly possibly has a component of ATN secondary to severe volume depletion. Baseline creatinine normal; Renal ultrasound showed no obstruction, right kidney 10 cm, left kidney 12 cm Cdiff colitis: Cdiff PCR positive [facility] Active Problems Active Problems: All Active Problems Low CD4 cell count determined by flow cytometry (Acute) UTI due to extended-spectrum beta lactamase (ESBL) producing Escherichia coli (Acute) Hematemesis (Acute) Acute and chronic respiratory failure with hypoxia (Acute) Acute metabolic encephalopathy (Acute) Acute kidney injury superimposed on CKD (Acute) Diarrhea (Acute) Severe sepsis (Acute) Urinary tract infection (Acute) Pneumonia (Acute) Acute UTI (Acute) COVID (Acute) Toxoplasmosis (Acute) Septic joint of left knee joint (Acute) Tracheitis (Acute) Aspiration into airway (Acute) Bacteremia (Acute) Aspiration pneumonia (Acute) Family history of colon cancer (Acute) Rectal bleeding (Acute) Past Medical History Medical History Opacity of lung on imaging study Chronic hypoxic respiratory failure Tracheostomy dependent Mantle cell lymphoma Aspiration into airway Stage IV decubitus ulcer Osteomyelitis of pelvis Anemia Toxoplasmosis Encephalopathy TERMINAL GAUGER lymphoma Rectal bleeding H/O: RCT (rotator cuff tear) Depression Appendicitis Chronic pain Kidney stone Mantle cell lymphoma Family History Family History Mother COPD (chronic obstructive pulmonary disease) Sister Colon cancer Family history of problems with anesthesia: No Surgical History Surgical History History of appendectomy History of Problems with Anesthesia: No Social History Social History Household Members: None Housing: Custodial Housing Other:: [employer] Do you presently have visiting nurse or other home services: No Alcohol intake: unknown Comment: non ambulatory patient Patient Tobacco Use Status: Never used Tobacco Smoked in Last 30 Days: No Second Hand Smoke Exposure: No Use of substances other than those prescribed or required for medical reasons: No Substance Use Type: Unknown Advance Directives: Yes Advance Directives on File: Yes Advance Directives Date on File: 10/02/24 Do you have a plan to hurt others: No Plan Nutrition Risks: Acute nausea or vomiting x1 week, Difficulty chewing, Difficulty swallowing and On aspiration precautions service: No Current occupational status: unemployed Meds Allergies Allergy/AdvReac Type Severity Reaction Status Date / Time cyclobenzaprine (Flexeril) Allergy Unknown Palpitation Verified 07/14/25 18:01 s Active Medications: Current Medications Acetylcysteine (Acetylcysteine 20 % 6,000 Mg/30 Ml Vial) 600 mg INHALE Q12H PRN PRN Reason: THICK AIRWAY SECRETION Albuterol Sulfate (Albuterol Sulfate (0.083%) 2.5 Mg/3 Ml Vial.Neb) 2.5 mg INHALE Q4H PRN PRN Reason: Shortness Of Breath Or Wheezing Artificial Tears (Artificial Tears 15 Ml Drops) 2 drop EYE-BOTH BID [facility] Last Admin: 07/16/25 00:30 Dose: Not Given Artificial Tears (Artificial Tears 15 Ml Drops) 1 drop EYE-BOTH BID PRN PRN Reason: red eyes Atovaquone (Atovaquone 750 Mg/5 Ml Oral.Susp) 750 mg G-TUBE BID [facility] Last Admin: 07/16/25 00:30 Dose: 750 mg Atropine Sulfate (Atropine Sulfate 1 % Ophth Cady 2 Ml Bottle) 1 drop SUBLINGUAL Q6H PRN PRN Reason: Secretions Baclofen (Baclofen 10 Mg Tablet) 5 mg G-TUBE TID RACHELL On Hold: 07/15/25 14:22 Last Admin: 07/15/25 08:45 Dose: 5 mg Diazepam (Diazepam 10 Mg/2 Ml Cartridge) 5 mg IVPUSH STAT PRN PRN Reason: Seizures Fidaxomicin (Fidaxomicin 200 Mg Tablet) 200 mg G-TUBE Q12H [facility] Last Admin: 07/16/25 06:18 Dose: 200 mg Fluticasone Propionate (Fluticasone Propionate Nasal 16 Gm [place]) 1 spray NOSTRIL-B Q12H PRN PRN Reason: Congestion Heparin Sodium (Porcine) (Heparin Sodium,Porcine 5,000 Unit/Ml Vial) 5,000 unit SUBCUT Q12H RACHELL On Hold: 07/15/25 12:05 Last Admin: 07/15/25 09:15 Dose: 5,000 unit Hydromorphone HCl (Hydromorphone Hcl 1 Mg/Ml Syringe) 0.5 mg IVPUSH Q4H PRN; Protocol On Hold: 07/15/25 14:54 PRN Reason: Pain, Severe (Pain Scale 7-10) Lactated Ringer's (Lr) 1,000 mls @ 125 mls/hr IVCONT .Q8H [facility] Last Admin: 07/16/25 06:18 Dose: 100 mls/hr Vancomycin HCl 500 mg/ Sodium (Chloride) 110 mls @ 110 mls/hr IV Q24H [facility] Last Infusion: 07/15/25 23:18 Dose: Infused Acetaminophen (Ofirmev) 1,000 mg in 100 mls @ 400 mls/hr IV Q6H [facility] Last Admin: 07/16/25 04:05 Dose: Not Given Metronidazole (Flagyl) 500 mg in 100 mls @ 100 mls/hr IV Q8H [facility] Last Infusion: 07/16/25 06:23 Dose: Infused Ipratropium [place] (Ipratropium [place] 0.5 Mg/2.5 Ml Solution) 0.5 mg INHALE Q6H PRN PRN Reason: Shortness of Breath Lacosamide (Lacosamide 100 Mg Tablet) 200 mg G-TUBE BID [facility] Last Admin: 07/15/25 21:58 Dose: 200 mg Lidocaine (Lidocaine 4 % Patch Adh..Patch) 2 patch TRANSDERMA DAILY [facility]; Protocol Melatonin (Melatonin 3 Mg Tablet) 6 mg G-TUBE BEDTIME PRN PRN Reason: Insomnia Meropenem (Meropenem 500 Mg Vial) 500 mg IVPUSH Q12H [facility] Last Admin: 07/16/25 06:30 Dose: 500 mg Metoclopramide HCl (Metoclopramide Hcl 10 Mg/2 Ml Vial) 5 mg IVPUSH Q6H PRN PRN Reason: Nausea and Vomiting Last Admin: 07/15/25 01:12 Dose: 5 mg Midodrine (Midodrine Hcl 10 Mg Tablet) 10 mg G-TUBE TID@0900,1300,1700 [facility]; Protocol Last Admin: 07/15/25 16:10 Dose: 10 mg Non-Formulary Medication (Leucovorin Calcium) 25 mg PO BEDTIME [facility] Non-Formulary Medication (Pyrimethamine) 50 mg PO BEDTIME [facility] Ondansetron HCl (Ondansetron Hcl 4 Mg/2 Ml Vial) 4 mg IVPUSH Q6H [facility] Last Admin: 07/16/25 04:16 Dose: 4 mg Oxycodone HCl (Oxycodone Hcl Immed Release 5 Mg Tablet) 5 mg G-TUBE Q6H PRN On Hold: 07/15/25 14:55 PRN Reason: Pain, Moderate(Pain Scale 4-6) Pantoprazole Sodium (Pantoprazole Sodium 40 Mg/10 Ml Vial) 40 mg IVPUSH BID@0630,1630 [facility] Last Admin: 07/16/25 06:31 Dose: 40 mg Pharmacy Consult (Consult Rx Vancomycin Dosing) 1 each MISCELLANE DAILY PRN PRN Reason: Consult order Scopolamine (Scopolamine 1.5 Mg Patch.Td.3) 1.5 mg TRANSDERMA Q3D [facility] Last Admin: 07/15/25 11:33 Dose: 1.5 mg Sodium Chloride (0.9 % Sodium Chloride Flush 3 Ml Syringe) 3 ml IVFLUSH QSHIFT [facility] Last Admin: 07/16/25 00:22 Dose: Not Given Sucralfate (Sucralfate 1 Gm Tablet) 1 gm PO BID@1300,1700 [facility] Last Admin: 07/15/25 16:10 Dose: 1 gm Home Medications ?Medication ?Instructions ?Recorded ?Confirmed ?Last Taken ?Type acetaminophen 325 mg tablet 650 mg feeding tube Q4H AR N Fever 01/02/23 07/15/25 07/14/25 History Or Pain albuterol sulfate 2.5 mg/3 mL 2.5 mg inhalation Q4H AR N 01/02/23 07/15/25 Unknown History (0.083 %) solution for nebulization Shortness Of Breat h Or Wheezing atovaquone 750 mg/5 mL oral 750 mg feeding tube BID 07/15/25 07/14/25 History suspension bisacodyl 10 mg rectal suppository 10 mg AR DAILY PRN Constipation if 01/02/23 07/15/25 Unknown History no BM after 8 hours following MoM cholecalciferol (vitamin D3) 1,250 1,250 mcg feeding t ube QMONTH 01/02/23 07/15/25 06/29/25 History mcg (50,000 unit) tablet finasteride 5 mg tablet 5 mg feeding tube BEDTIME 07/15/25 07/14/25 History guaifenesin 200 mg/5 mL oral liquid 200 mg feeding tub e Q4H PRN Cough 01/02/23 07/15/25 Unknown History lacosamide 200 mg tablet 200 mg feeding tube BID 12/1407/15/25 07/14/25 History leucovorin calcium 25 mg tablet 25 mg feeding tube BED TIME 01/02/23 07/15/25 07/14/25 History lorazepam 0.5 mg tablet 0.5 mg feeding tube Q8H PRN Anxiety 01/02/23 07/15/25 09/30/24 09:05 History magnesium hydroxide 400 mg/5 mL 30 ml feeding tube JACK LY PRN 01/02/23 07/15/25 Unknown History oral suspension (Milk of Magnesia) Constipation melatonin 3 mg tablet 3 mg feeding tube BEDTIME 07/15/25 07/14/25 History ondansetron HCl 2 mg/mL 4 mg IM Q4H PRN Nausea And V omiting 01/02/23 07/15/25 07/14/25 History intravenous solution oxycodone 5 mg tablet 5 mg feeding tube Q6H PRN Pa in 01/02/23 07/15/25 09/22/23 10:02 History (Scale Score 7-10) scopolamine base 1 mg over 3 days 1 patch transdermal Q3D 01/02/23 07/15/25 07/14/25 History transdermal patch sennosides 8.6 mg-docusate sodium 2 tab-cap PO BID@090 0,1700 01/02/23 07/15/25 07/14/25 History 50 mg tablet (Senna with Docusate Constipation Sodium) sodium phosphates 19 gram-7 118 ml AR DAILY PRN Consti pation 01/02/23 07/15/25 Unknown History gram/118 mL enema (Fleet Enema) tramadol 50 mg tablet 50 mg feeding tube Q4H PRN P ain 01/02/23 07/15/25 Unknown History (Scale Score 1-3) multivitamin 1 tab feeding tube DAILY 07/15/25 07/14/25 History pyrimethamine 25 mg tablet 50 mg feeding tube BEDTIME 01/31/23 07/15/25 07/14/25 History carboxymethylcellulose sodium 0.25 2 drp ophthalmic (e ye) BID 06/04/23 07/15/25 07/14/25 History % eye drops morphine 10 mg/5 mL oral solution 5 mg feeding tube DA NAKUL 06/04/23 07/15/25 07/14/25 History sucralfate 1 gram tablet 1 g PO BID@1300,1700 3 07/15/25 07/14/25 History acetylcysteine 200 mg/mL (20 %) 600 mg inhalation Q12H PRN THICK 09/22/23 07/15/25 Unknown History solution AIRWAY SECRETION ibuprofen 600 mg tablet 600 mg feeding tube Q8H PRN 09/22/23 07/15/25 09/04/24 16:36 History FEVER/PAIN UNRESPONSIVE TO APAP 600 mg midodrine 5 mg tablet 10 mg feeding tube Q8H 01/2607/15/25 07/14/25 History polyethylene glycol 3350 17 gram 17 g feeding tube Q48 H 01/27/24 07/15/25 09/04/24 16:36 History oral powder packet (Miralax) simethicone 80 mg chewable tablet 80 mg feeding tube Q 6H 01/27/24 07/15/25 09/30/24 05:51 History baclofen 5 mg tablet 5 mg feeding tube TID 07/15/25 07/14/25 History lidocaine 4 % topical patch 2 patch topical DAILY 08/1607/15/25 07/14/25 History carboxymethylcellulose sodium 0.25 1 drp ophthalmic (e ye) BID PRN red 09/30/24 07/15/25 Unknown History % eye drops eyes emollient combination no.119 1 appl topical DAILY 09/1507/15/25 07/14/25 History (Eucerin Advanced Repair topical cream) ondansetron HCl 4 mg tablet 4 mg PO Q4H PRN no relief after 09/30/24 07/15/25 07/14/25 History 1st dose of zofran acetaminophen 650 mg rectal 650 mg AR Q6H PRN Fever Or Pain 07/15/25 07/15/25 Unknown History suppository atropine 1 % eye drops 1 drp sublingual Q6H PRN Sec retions 07/15/25 07/15/25 Unknown History esomeprazole magnesium 40 mg 40 mg feeding tube DAILY 07/15/25 07/15/25 07/14/25 History capsule,delayed release famotidine 20 mg tablet 20 mg PO BID 07/15/2507/14/25 History fluticasone propionate 50 1 spray intranasal Q12H PRN 07/15/25 07/15/25 Unknown History mcg/actuation nasal Congestion spray,suspension ipratropium bromide 0.02 % 2.5 ml inhalation Q6H PRN 1 09/15/24 07/15/25 07/14/25 History solution for inhalation Shortness Of Breath linaclotide 145 mcg capsule 145 mcg PO DAILY 07/15/25 07/15/25 Unknown History naloxone 0.4 mg/mL injection 0.4 mg subcut Q2M PRN Opi oid 07/15/25 07/15/25 Unknown History solution Overdose Exam Height,Weight and Vital Signs: Height 5 ft 6 in Weight 71.8 kg Last Vital Signs Temp 98.8 F 07/16/25 05:12 Pulse 117 H 07/16/25 05:12 Resp 26 H 07/16/25 05:12 BP 95/66 07/16/25 05:12 Pulse Ox 92 07/16/25 05:12 O2 Del Method High Flow Nasal Cannula 07/16/25 05:12 O2 Flow Rate 50 07/15/25 12:16 FiO2 50 07/15/25 06:33 Pertinent Lab Results Pertinent Lab Results: Laboratory Tests 07/14/25 07/14/25 07/14/25 18:17 18:21 18:28 WBC 24.9 H RBC 3.92 L Hgb 12.3 L Hct 36.7 L MCV 93.6 MCH 31.4 MCHC 33.5 RDW 15.9 Plt Count 321 D MPV 10.1 Immature Gran % (Auto) Cancelled Neut % (Auto) Cancelled Lymph % (Auto) Cancelled [place] % (Auto) Cancelled Eos % (Auto) Cancelled Baso % (Auto) Cancelled Lymph # (Auto) Cancelled [place] # (Auto) Cancelled Eos # (Auto) Cancelled Baso # (Auto) Cancelled Abs Immat Gran (auto) Cancelled Absolute Neuts (auto) Cancelled Absolute Nucleated RBC 0.000 Nucleated RBC % (auto) 0.0 Neutrophils % (Manual) 94 H Band Neutrophils % 0 L Lymphocytes % (Manual) 1 L Monocytes % (Manual) 5 Abs Neuts (Manual) 23.4 H Lymphocytes # (Manual) 0.2 L Monocytes # (Manual) 1.2 Toxic Granulation Toxic Vacuolation Dohle Bodies Platelet Estimate NORMAL Large Platelets Plt Morphology Comment NORMAL RBC Morphology NORMAL [place] Cells O2 Saturation ABG pH at Pt Temp ABG pCO2 at Pt Temp ABG pO2 at Pt Temp ABG HCO3 ABG Base Excess (Actual) VBG pH 7.44 H VBG pCO2 30 VBG pO2 134 VBG HCO3 21 L VBG O2 Saturation 99.0 VBG Base Excess -1.8 Sodium 132 L Potassium 3.7 Chloride 93 L Carbon Dioxide 23 Anion Gap 20 BUN 69 H Creatinine 4.09 H* Estim Creat Clear Calc 19.0 Estimated GFR 15 Random Glucose 108 Lactic Acid 3.8 H* Lactic Acid F/U @ 2Hr Calcium 9.0 Magnesium Total Bilirubin 1.0 Direct Bilirubin 0.7 H AST 36 ALT 51 H Alkaline Phosphatase 246 H Troponin I High Sens < 2.7 D Total Protein 7.3 Albumin 3.7 Urine Color Dark Yellow Urine Appearance Turbid Urine pH 5.5 Ur Specific [place] 1.015 Urine Protein 100 (2+) H Urine Glucose (UA) Negative Urine Ketones Negative Urine Blood Small (1+) H Urine Nitrite Positive H Ur Leukocyte Esterase Large (3+) H Urine RBC 0-2 Urine WBC >50 H Ur Squamous Epith Cells 6-10 Urine Bacteria 4+ Hyaline Casts 3-5 Stl C. cayetanensis PCR Stool Rotavirus A PCR Stl Adenov F 40/41 PCR Stool Astrovirus (PCR) Stool Campylobacter PCR Stool Cryptosporidium PCR Stl Sh Tox Pr E STEC PCR Stool E coli O157 PCR Stl Enterotoxigenic E PCR Stool EPEC (PCR) Stool EAEC (PCR) Stl E. histolytica PCR Stool Giardia Lamblia PCR Stl P. shigelloides PCR Stool Salmonella PCR Stool Sapovirus (PCR) Stl Shigella/EIEC PCR St Y.enterocolitica PCR Stool Vibrio (PCR) Stl Vibrio cholerae PCR Stl Norovirus GI/GII PCR C. difficile Tox B Gene C. difficile Toxin A&B C. difficile Interpret Influenza Type A (PCR) NEGATIVE Influenza Type B (PCR) NEGATIVE RSV RNA Qual (PCR) NEGATIVE SARS-CoV-2 RNA (RT-PCR) NEGATIVE Blood Type Antibody Screen 07/14/25 07/15/25 07/15/25 20:38 02:39 04:26 WBC 18.3 H RBC 3.70 L Hgb 11.5 L Hct 34.0 L MCV 91.9 MCH 31.1 MCHC 33.8 RDW 15.9 Plt Count 285 MPV 10.1 Immature Gran % (Auto) Cancelled Neut % (Auto) Cancelled Lymph % (Auto) Cancelled [place] % (Auto) Cancelled Eos % (Auto) Cancelled Baso % (Auto) Cancelled Lymph # (Auto) Cancelled [place] # (Auto) Cancelled Eos # (Auto) Cancelled Baso # (Auto) Cancelled Abs Immat Gran (auto) Cancelled Absolute Neuts (auto) Cancelled Absolute Nucleated RBC 0.000 Nucleated RBC % (auto) 0.0 Neutrophils % (Manual) 65 Band Neutrophils % 15 H Lymphocytes % (Manual) 6 L Monocytes % (Manual) 14 H Abs Neuts (Manual) 14.6 H Lymphocytes # (Manual) 1.1 L Monocytes # (Manual) 2.6 H Toxic Granulation Toxic Vacuolation PRESENT Dohle Bodies PRESENT Platelet Estimate NORMAL Large Platelets Plt Morphology Comment NORMAL RBC Morphology NOTED Olivia Cells 1+ (0-2) O2 Saturation 99.0 ABG pH at Pt Temp 7.38 ABG pCO2 at Pt Temp 33 ABG pO2 at Pt Temp 95 ABG HCO3 20 L ABG Base Excess (Actual) -4.1 VBG pH VBG pCO2 VBG pO2 VBG HCO3 VBG O2 Saturation VBG Base Excess Sodium 133 L Potassium 3.3 Chloride 99 Carbon Dioxide 18 L Anion Gap 19 BUN 77 H Creatinine 4.36 H* Estim Creat Clear Calc 17.8 Estimated GFR 14 Random Glucose 112 Lactic Acid Lactic Acid F/U @ 2Hr 1.5 Calcium 8.4 D Magnesium 2.2 Total Bilirubin 1.0 Direct Bilirubin AST 23 ALT 33 Alkaline Phosphatase 214 H Troponin I High Sens Total Protein 6.3 L Albumin 3.1 L Urine Color Urine Appearance Urine pH Ur Specific [place] Urine Protein Urine Glucose (UA) Urine Ketones Urine Blood Urine Nitrite Ur Leukocyte Esterase Urine RBC Urine WBC Ur Squamous Epith Cells Urine Bacteria Hyaline Casts Stl C. cayetanensis PCR Stool Rotavirus A PCR Stl Adenov F 40/41 PCR Stool Astrovirus (PCR) Stool Campylobacter PCR Stool Cryptosporidium PCR Stl Sh Tox Pr E STEC PCR Stool E coli O157 PCR Stl Enterotoxigenic E PCR Stool EPEC (PCR) Stool EAEC (PCR) Stl E. histolytica PCR Stool Giardia [place]lia PCR Stl P. shigelloides PCR Stool Salmonella PCR Stool Sapovirus (PCR) Stl Shigella/EIEC PCR St Y.enterocolitica PCR Stool Vibrio (PCR) Stl Vibrio cholerae PCR Stl Norovirus GI/GII PCR C. difficile Tox B Gene C. difficile Toxin A&B C. difficile Interpret Influenza Type A (PCR) Influenza Type B (PCR) RSV RNA Qual (PCR) SARS-CoV-2 RNA (RT-PCR) Blood Type Antibody Screen 07/15/25 07/15/25 07/16/25 09:09 17:42 03:50 WBC 23.9 H RBC 3.79 L Hgb 11.4 L 11.6 L Hct 33.4 L 34.2 L MCV 90.2 MCH 30.6 MCHC 33.9 RDW 15.9 Plt Count 316 MPV 9.9 Immature Gran % (Auto) Cancelled Neut % (Auto) Cancelled Lymph % (Auto) Cancelled [place] % (Auto) Cancelled Eos % (Auto) Cancelled Baso % (Auto) Cancelled Lymph # (Auto) Cancelled [place] # (Auto) Cancelled Eos # (Auto) Cancelled Baso # (Auto) Cancelled Abs Immat Gran (auto) Cancelled Absolute Neuts (auto) Cancelled Absolute Nucleated RBC 0.000 Nucleated RBC % (auto) 0.0 Neutrophils % (Manual) 65 Band Neutrophils % 25 H Lymphocytes % (Manual) 3 L Monocytes % (Manual) 7 Abs Neuts (Manual) 21.5 H Lymphocytes # (Manual) 0.7 L Monocytes # (Manual) 1.7 H Toxic Granulation PRESENT Toxic Vacuolation PRESENT Dohle Bodies PRESENT Platelet Estimate NORMAL Large Platelets PRESENT Plt Morphology Comment NOTED RBC Morphology NOTED [place] Cells 3+ (>5) O2 Saturation ABG pH at Pt Temp ABG pCO2 at Pt Temp ABG pO2 at Pt Temp ABG HCO3 ABG Base Excess (Actual) VBG pH VBG pCO2 VBG pO2 VBG HCO3 VBG O2 Saturation VBG Base Excess Sodium 132 L 133 L Potassium 3.6 3.5 Chloride 99 99 Carbon Dioxide 20 L 18 L Anion Gap 17 20 BUN 84 H 89 H Creatinine 4.75 H* 5.08 H* Estim Creat Clear Calc 16.4 15.3 Estimated GFR 13 12 Random Glucose 95 93 Lactic Acid Lactic Acid F/U @ 2Hr Calcium 8.4 8.3 L Magnesium 2.5 Total Bilirubin 1.0 Direct Bilirubin AST 31 ALT 20 Alkaline Phosphatase 178 H Troponin I High Sens Total Protein 5.8 L Albumin 2.7 L Urine Color Urine Appearance Urine pH Ur Specific [place] Urine Protein Urine Glucose (UA) Urine Ketones Urine Blood Urine Nitrite Ur Leukocyte Esterase Urine RBC Urine WBC Ur Squamous Epith Cells Urine Bacteria Hyaline Casts Stl C. cayetanensis PCR Not Detected Stool Rotavirus A PCR Not Detected Stl Adenov F 40/41 PCR Not Detected Stool Astrovirus (PCR) Not Detected Stool Campylobacter PCR Not Detected Stool Cryptosporidium PCR Not Detected Stl Sh Tox Pr E STEC PCR Not Detected Stool E coli O157 PCR Not applicable Stl Enterotoxigenic E PCR Not Detected Stool EPEC (PCR) Not Detected Stool EAEC (PCR) Not Detected Stl E. histolytica PCR Not Detected Stool Giardia Lamblia PCR Not Detected Stl P. shigelloides PCR Not Detected Stool Salmonella PCR Not Detected Stool Sapovirus (PCR) Not Detected Stl Shigella/EIEC PCR Not Detected St Y.enterocolitica PCR Not Detected Stool Vibrio (PCR) Not Detected Stl Vibrio cholerae PCR Not Detected Stl Norovirus GI/GII PCR Detected A C. difficile Tox B Gene POSITIVE A* C. difficile Toxin A&B Positive A* C. difficile Interpret SEE NOTE Influenza Type A (PCR) Influenza Type B (PCR) RSV RNA Qual (PCR) SARS-CoV-2 RNA (RT-PCR) Blood Type Antibody Screen 07/16/25 05:54 WBC RBC Hgb Hct MCV MCH MCHC RDW Plt Count MPV Immature Gran % (Auto) Neut % (Auto) Lymph % (Auto) [place] % (Auto) Eos % (Auto) Baso % (Auto) Lymph # (Auto) [place] # (Auto) Eos # (Auto) Baso # (Auto) Abs Immat Gran (auto) Absolute Neuts (auto) Absolute Nucleated RBC Nucleated RBC % (auto) Neutrophils % (Manual) Band Neutrophils % Lymphocytes % (Manual) Monocytes % (Manual) Abs Neuts (Manual) Lymphocytes # (Manual) Monocytes # (Manual) Toxic Granulation Toxic Vacuolation Dohle Bodies Platelet Estimate Large Platelets Plt Morphology Comment RBC Morphology Olivia Cells O2 Saturation ABG pH at Pt Temp ABG pCO2 at Pt Temp ABG pO2 at Pt Temp ABG HCO3 ABG Base Excess (Actual) VBG pH VBG pCO2 VBG pO2 VBG HCO3 VBG O2 Saturation VBG Base Excess Sodium Potassium Chloride Carbon Dioxide Anion Gap BUN Creatinine Estim Creat Clear Calc Estimated GFR Random Glucose Lactic Acid Lactic Acid F/U @ 2Hr Calcium Magnesium Total Bilirubin Direct Bilirubin AST ALT Alkaline Phosphatase Troponin I High Sens Total Protein Albumin Urine Color Urine Appearance Urine pH Ur Specific [place] Urine Protein Urine Glucose (UA) Urine Ketones Urine Blood Urine Nitrite Ur Leukocyte Esterase Urine RBC Urine WBC Ur Squamous Epith Cells Urine Bacteria Hyaline Casts Stl C. cayetanensis PCR Stool Rotavirus A PCR Stl Adenov F 40/41 PCR Stool Astrovirus (PCR) Stool Campylobacter PCR Stool Cryptosporidium PCR Stl Sh Tox Pr E STEC PCR Stool E coli O157 PCR Stl Enterotoxigenic E PCR Stool EPEC (PCR) Stool EAEC (PCR) Stl E. histolytica PCR Stool Giardia Lamblia PCR Stl P. shigelloides PCR Stool Salmonella PCR Stool Sapovirus (PCR) Stl Shigella/EIEC PCR St Y.enterocolitica PCR Stool Vibrio (PCR) Stl Vibrio cholerae PCR Stl Norovirus GI/GII PCR C. difficile Tox B Gene C. difficile Toxin A&B C. difficile Interpret Influenza Type A (PCR) Influenza Type B (PCR) RSV RNA Qual (PCR) SARS-CoV-2 RNA (RT-PCR) Blood Type O Positive Antibody Screen NEGATIVE Narrative Narrative: EKG 07/14/25 Vent. Rate : 123 BPM Atrial Rate : 123 BPM P-R Int : 150 ms QRS Dur : 82 ms QT Int : 340 ms P-R-T Axes : 52 22 63 degrees QTcB Int : 486 ms Sinus tachycardia Prolonged QT Abnormal ECG When compared with ECG of 30-Sep-2024 12:41, No significant change was found Assessment and Plan Final Anesthetic Review Family History of Problems with Anesthesia: No History of Problems with Anesthesia: No
[2025-07-16] MEDS: Lidocaine 4 % Patch ADH..PATCH 2 PATCH TRANSDERMA (09:55)
--- NOTE | 2025-07-16 10:14 | PC.NURSE ---
Medicated per the 899 G-tube meds held due to patient NPO with potential of going for an EGD. Respiratory intermittently deep suctioning patient when needed.
--- NOTE | 2025-07-16 12:17 | PC.NURSE ---
respiratory at bedside for suction, continues with green sputum. inner trach also changed by respiratory. continues pending need for EGD.
--- NOTE | 2025-07-16 12:54 | PC.NURSE ---
upon repositioning patient in bed, incontinent of loose watery stool. cleaned and repositioned in bed. patient remains pending bed/dispo at this time.
--- NOTE | 2025-07-16 16:43 | HO.PM.IMPN ---
Subjective Subjective Date of Service: 07/16/25 Interval History: cdiff ,pneumonia Review of Systems Patient condition seems similar, oxygen demand somewhat trending down to 40 L Diarrhea also somewhat improving still having watery stools inbetweenx2. still has secreations requiring suctioing producing around 1100 ml intermittent fevers h/h in 11 range Review of Systems: Yes all other systems are reviewed and are negative Physical Exam Exam: Exam: Appearance: generalised weak,sick appearing ,frial cvs: rrr, [id number]. res: air entry diminshed abd: no guarding ,nd, bs present. ext pulses present , no cyanosis . neuro: seems weak , does not participate . Vital Signs: Vital Signs: Last Vital Signs Temp 100.6 F H 07/16/25 15:42 Pulse 123 H 07/16/25 15:42 Resp 35 H 07/16/25 15:42 BP 98/63 07/16/25 15:42 Pulse Ox 94 07/16/25 15:42 O2 Del Method High Flow Nasal C annula, Trach Edy ar 07/16/25 15:42 O2 Flow Rate 40 07/16/25 15:42 FiO2 50 07/15/25 06:33 BMI result Body Mass Index 25.5 Objective Data Active Medications Acetylcysteine (Acetylcysteine 10 % 400 Mg/4 Ml Vial) 600 mg INHALE Q12H PRN PRN Reason: THICK AIRWAY SECRETION Albuterol Sulfate (Albuterol Sulfate (0.083%) 2.5 Mg/3 Ml Vial.Neb) 2.5 mg INHALE Q4H PRN PRN Reason: Shortness Of Breath Or Wheezing Artificial Tears (Artificial Tears 15 Ml Drops) 2 drop EYE-BOTH BID [facility] [place] Last Admin: 07/16/25 12:16 Dose: Not Given Documented By: TAMIKO Non-Admin Reason: Med Not Available Artificial Tears (Artificial Tears 15 Ml Drops) 1 drop EYE-BOTH BID PRN PRN Reason: red eyes Atovaquone (Atovaquone 750 Mg/5 Ml Oral.Susp) 750 mg G-TUBE BID [facility] [place] Last Admin: 07/16/25 12:56 Dose: Not Given Documented By: LUANA Non-Admin Reason: See Note Atropine Sulfate (Atropine Sulfate 1 % Ophth Cady 2 Ml Bottle) 1 drop SUBLINGUAL Q6H PRN PRN Reason: Secretions Baclofen (Baclofen 10 Mg Tablet) 5 mg G-TUBE TID RACHELL On Hold: 07/15/25 14:22 Last Admin: 07/15/25 08:45 Dose: 5 mg Documented By: RG Diazepam (Diazepam 10 Mg/2 Ml Cartridge) 5 mg IVPUSH STAT PRN PRN Reason: Seizures Fidaxomicin (Fidaxomicin 200 Mg Tablet) 200 mg G-TUBE Q12H [facility] [place] Last Admin: 07/16/25 06:18 Dose: 200 mg Documented By: GEOVANNI Fluticasone Propionate (Fluticasone Propionate Nasal 16 Gm [place]) 1 spray NOSTRIL-B Q12H PRN PRN Reason: Congestion Heparin Sodium (Porcine) (Heparin Sodium,Porcine 5,000 Unit/Ml Vial) 5,000 unit SUBCUT Q12H RACHELL On Hold: 07/15/25 12:05 Last Admin: 07/15/25 09:15 Dose: 5,000 unit Documented By: RG Hydromorphone HCl (Hydromorphone Hcl 1 Mg/Ml Syringe) 0.5 mg IVPUSH Q4H PRN; Protocol On Hold: 07/15/25 14:54 PRN Reason: Pain, Severe (Pain Scale 7-10) Lactated Ringer's (Lr) 1,000 mls @ 75 mls/hr IVCONT .[id number] [facility] [place] Last Admin: 07/16/25 14:10 Dose: 100 mls/hr Documented By: TAMIKO Vancomycin HCl 500 mg/ Sodium (Chloride) 110 mls @ 110 mls/hr IV Q24H [facility] [place] Last Infusion: 07/15/25 23:18 Dose: Infused Documented By: GEOVANNI Metronidazole (Flagyl) 500 mg in 100 mls @ 100 mls/hr IV Q8H [facility] [place] Last Infusion: 07/16/25 12:55 Dose: Infused Documented By: LUANA Acetaminophen (Ofirmev) 1,000 mg in 100 mls @ 400 mls/hr IV Q6H PRN PRN Reason: Fever Last Infusion: 07/16/25 10:36 Dose: Infused Documented By: TAMIKO Ipratropium [place] (Ipratropium [place] 0.5 Mg/2.5 Ml Solution) 0.5 mg INHALE Q6H PRN PRN Reason: Shortness of Breath Lacosamide (Lacosamide 100 Mg Tablet) 200 mg G-TUBE BID [facility] [place] Last Admin: 07/16/25 12:56 Dose: Not Given Documented By: LUANA Non-Admin Reason: See Note Lidocaine (Lidocaine 4 % Patch Adh..Patch) 2 patch TRANSDERMA DAILY [facility] [place]; Protocol Last Admin: 07/16/25 09:55 Dose: 2 patch Documented By: LUANA Melatonin (Melatonin 3 Mg Tablet) 6 mg G-TUBE BEDTIME PRN PRN Reason: Insomnia Meropenem (Meropenem 500 Mg Vial) 500 mg IVPUSH Q12H [facility] [place] Last Admin: 07/16/25 06:30 Dose: 500 mg Documented By: GEOVANNI Metoclopramide HCl (Metoclopramide Hcl 10 Mg/2 Ml Vial) 5 mg IVPUSH Q6H PRN PRN Reason: Nausea and Vomiting Last Admin: 07/15/25 01:12 Dose: 5 mg Documented By: EMILIANO Midodrine (Midodrine Hcl 10 Mg Tablet) 10 mg G-TUBE TID@0900,1300,1700 [facility] [place]; Protocol Last Admin: 07/16/25 14:12 Dose: 10 mg Documented By: TAMIKO Ondansetron HCl (Ondansetron Hcl 4 Mg/2 Ml Vial) 4 mg IVPUSH Q6H [facility] [place] Last Admin: 07/16/25 14:11 Dose: 4 mg Documented By: TAMIKO Oxycodone HCl (Oxycodone Hcl Immed Release 5 Mg Tablet) 5 mg G-TUBE Q6H PRN On Hold: 07/15/25 14:55 PRN Reason: Pain, Moderate(Pain Scale 4-6) Pantoprazole Sodium (Pantoprazole Sodium 40 Mg/10 Ml Vial) 40 mg IVPUSH BID@0630,1630 [facility] [place] Last Admin: 07/16/25 06:31 Dose: 40 mg Documented By: GEOVANNI Pharmacy Consult (Consult Rx Vancomycin Dosing) 1 each MISCELLANE DAILY PRN PRN Reason: Consult order Scopolamine (Scopolamine 1.5 Mg Patch.Td.3) 1.5 mg TRANSDERMA Q3D [facility] [place] Last Admin: 07/15/25 11:33 Dose: 1.5 mg Documented By: RG Sodium Chloride (0.9 % Sodium Chloride Flush 3 Ml Syringe) 3 ml IVFLUSH QSHIFT [facility] [place] Last Admin: 07/16/25 09:49 Dose: Not Given Documented By: TAMIKO Non-Admin Reason: IV Running Sucralfate (Sucralfate 1 Gm Tablet) 1 gm PO BID@1300,1700 [facility] [place] Last Admin: 07/16/25 14:12 Dose: 1 gm Documented By: TAMIKO Labs 07/16/25 03:50 07/16/25 03:50 Labs: Laboratory Results - last 24 hr 07/15/25 07/16/25 07/16/25 17:42 03:50 05:54 MCV 90.2 MCH 30.6 MCHC 33.9 RDW 15.9 Plt Count 316 MPV 9.9 Immature Gran % (Auto) Cancelled Neut % (Auto) Cancelled Lymph % (Auto) Cancelled [place] % (Auto) Cancelled Eos % (Auto) Cancelled Baso % (Auto) Cancelled Lymph # (Auto) Cancelled [place] # (Auto) Cancelled Eos # (Auto) Cancelled Baso # (Auto) Cancelled Abs Immat Gran (auto) Cancelled Absolute Neuts (auto) Cancelled Absolute Nucleated RBC 0.000 Nucleated RBC % (auto) 0.0 Neutrophils % (Manual) 65 Band Neutrophils % 25 H Lymphocytes % (Manual) 3 L Monocytes % (Manual) 7 Abs Neuts (Manual) 21.5 H Lymphocytes # (Manual) 0.7 L Monocytes # (Manual) 1.7 H Toxic Granulation PRESENT Toxic Vacuolation PRESENT Dohle Bodies PRESENT Platelet Estimate NORMAL Large Platelets PRESENT Plt Morphology Comment NOTED RBC Morphology NOTED [place] Cells 3+ (>5) Anion Gap 17 20 Estim Creat Clear Calc 16.4 15.3 Estimated GFR 13 12 Random Glucose 95 93 Calcium 8.4 8.3 L Magnesium 2.5 Total Bilirubin 1.0 AST 31 ALT 20 Alkaline Phosphatase 178 H Total Protein 5.8 L Albumin 2.7 L Blood Type O Positive Antibody Screen NEGATIVE Microbiology Microbiology Results: Microbiology 07/14/25 18:17 Blood Culture - Final Blood - Venous Coag negative Staphylococcus 07/14/25 Unknown Urine Culture - Preliminary Urine clean catch - Clean Catch Midstream Gram negative jessie 07/15/25 07:48 Gram Stain - Final Sputum - Expectorated Sputum Culture - Preliminary Culture in progress. 07/14/25 18:16 Blood Culture - Preliminary Blood - Venous No growth after 24 hours. 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 Severe sepsis with acute on chronic respiratory failure with hypoxia and acute metabolic encephalopathy secondary to aspiration pneumonia, acute UTI and likely C diff colitis aspirtional pneumonia: Leukocytosis trending up, has tachycardia and tachypnea, fever intermittent hold G-tube feedings, NPO. Plan: blood cultures pending oxygen demanad slight imrpoving , intermittent suctioning for secretions, moniter respiratory function closely, avoid sedatives, scheduled antiemetic,requent suctioning PRN Continue broad-spectrum antibiotics with vanco/meropenem. UTI and cdiff colitis urine culture pending C diff PCR positive. CT with possible C diff colitis contact precautions placed plan: urine cultures pending fidoxamycin,added iv flagyl continue antibiotics as above,ivf. chronic hypotension on midodrine Q8H hold SBP >120 ID consult noted -recomended to continue iv antibiotics monitor CBC and BMP acute lactic acidosis:improved with hydration TAMMY on CKD likely secondary to sepsis and fluid losses, cr 5 from 1.35 on 06/26/15 IV fluids as above. renal us-No hydronephrosis or gross nephrolithiasis. Please refer to the noncontrast CT abdomen and pelvis findings dated July 14, 2025.. plan: monitor BMP, avoid nephrotoxins when possible nephrology following -rec to cut down ivf to 75 ml/hr . Hx toxoplasmosis hold pyrimethenamine, atovaquone per id for now Seizure disorder lacosamide , diazepam p.r.n. Normocytic anemia - monitor CBC GERD - PPI as above. History osteomyelitis, sacral wounds present on admission - no evidence of infection currently - wound care consult Med rec pending Full code VTE prophylaxis: hold heparin due to coffee ground . onoging need: severe sepsis, acute metabolic encephalopathy and acute hypoxic respiratory failure with multifactorial infections including aspiration pneumonia, UTI and likely C diff, requiring admission for at least 2 midnight stay for IV antibiotics and monitoring. d/w Icu -recommended continue current management, currently recommended to monitor on the floor Also discussed with the patient's healthcare proxy in detail at bedside. Overall prognosis seems guarded. Quality Stroke Does the patient have a stroke diagnosis?: No VTE Prior VTE?: No VTE Risk Level:: Medical - moderate - high VTE Device Contraindication: Treatment Not Indicated VTE Drug Contraindication: N/A - Med Ordered
[2025-07-16] MEDS: 0.9 % Sodium Chloride Flush 3 ML SYRINGE IVFLUSH (17:39)
--- NOTE | 2025-07-16 17:54 | PM.PNNEP ---
Subjective Subjective Date of Service: 07/16/25 Interval history: cdiff ,pneumonia Physical Exam Vital Signs: Vital Signs: Last Vital Signs Temp 99.9 F 07/16/25 16:49 Pulse 125 H 07/16/25 16:49 Resp 16 07/16/25 16:49 BP 120/71 07/16/25 16:49 Pulse Ox 95 07/16/25 16:49 O2 Del Method High Flow Nasal C annula 07/16/25 16:49 O2 Flow Rate 45 07/16/25 16:49 FiO2 45 07/16/25 16:49 BMI result Body Mass Index 25.5 Objective Data Labs 07/16/25 03:50 07/16/25 03:50 Labs: Laboratory Results - last 24 hr 07/15/25 07/16/25 07/16/25 17:42 03:50 05:54 WBC 23.9 H RBC 3.79 L Hgb 11.6 L Hct 34.2 L MCV 90.2 MCH 30.6 MCHC 33.9 RDW 15.9 Plt Count 316 MPV 9.9 Immature Gran % (Auto) Cancelled Neut % (Auto) Cancelled Lymph % (Auto) Cancelled [place] % (Auto) Cancelled Eos % (Auto) Cancelled Baso % (Auto) Cancelled Lymph # (Auto) Cancelled [place] # (Auto) Cancelled Eos # (Auto) Cancelled Baso # (Auto) Cancelled Abs Immat Gran (auto) Cancelled Absolute Neuts (auto) Cancelled Absolute Nucleated RBC 0.000 Nucleated RBC % (auto) 0.0 Neutrophils % (Manual) 65 Band Neutrophils % 25 H Lymphocytes % (Manual) 3 L Monocytes % (Manual) 7 Abs Neuts (Manual) 21.5 H Lymphocytes # (Manual) 0.7 L Monocytes # (Manual) 1.7 H Toxic Granulation PRESENT Toxic Vacuolation PRESENT Dohle Bodies PRESENT Platelet Estimate NORMAL Large Platelets PRESENT Plt Morphology Comment NOTED RBC Morphology NOTED [place] Cells 3+ (>5) Sodium 132 L 133 L Potassium 3.6 3.5 Chloride 99 99 Carbon Dioxide 20 L 18 L Anion Gap 17 20 BUN 84 H 89 H Creatinine 4.75 H* 5.08 H* Estim Creat Clear Calc 16.4 15.3 Estimated GFR 13 12 Random Glucose 95 93 Calcium 8.4 8.3 L Magnesium 2.5 Total Bilirubin 1.0 AST 31 ALT 20 Alkaline Phosphatase 178 H Total Protein 5.8 L Albumin 2.7 L Blood Type O Positive Antibody Screen NEGATIVE Microbiology Microbiology Results: Microbiology 07/14/25 18:17 Blood - Venous Blood Culture - Final Coag negative Staphylococcus 07/14/25 Unknown Urine clean catch - Clean Catch Midstream Urine Culture - Preliminary Gram negative jessie 07/15/25 07:48 Sputum - Expectorated Gram Stain - Final 07/15/25 07:48 Sputum - Expectorated Sputum Culture - Preliminary Culture in progress. 07/14/25 18:16 Blood - Venous Blood Culture - Preliminary No growth after 24 hours. Procedures Date of Service Date of Service: 07/16/25 Assessment & Plan Assessment and plan (1) Acute kidney injury superimposed on CKD: Status: Acute (2) Acute and chronic respiratory failure with hypoxia: Status: Acute (3) Acute hyponatremia: Status: Acute Plan Acute kidney injury: Possibly secondary to ATN from hypovolemia and hypovolemic shock from C diff diarrhea. Baseline creatinine normal, increased to 4.36 yesterday, increased to 5.08. Renal ultrasound showed no obstruction, right kidney 10 cm, left kidney 12 cm UA showing 2+ protein, nitrate positive, leukocyte esterase positive greater than 50 WBCs possibly suggesting a UTI, urine cultures growing Gram-negative jessie. Continue meropenem for UTI; On Flagyl and fidaxomicin for the management of C diff diarrhea. Can discontinue vancomycin. Decrease the fluids to 75 cc/hour, during output 1100cc since this morning. Acute on chronic hypoxemic respiratory failure: Status post tracheotomy tube placement Oxygen requirement has decreased from 60% yesterday to 44% this morning. Continue titrating oxygen down as tolerated Sputum culture pending, we will get MRSA nares CT chest suggestive of aspiration pneumonia Acute hyponatremia: Should correct with volume replacement Sodium 133 this morning Time Spent With Patient Time: Total time managing care of this patient today ____ minutes. Progress Note: Quality Stroke Does the patient have a stroke diagnosis?: No
[2025-07-16] MEDS: Albuterol Sulfate (0.083%) 2.5 MG/3 ML VIAL.NEB INHALE (20:12)
[2025-07-16] MEDS: Acetylcysteine 10 % 400 MG/4 ML VIAL 600 MG INHALE (20:12)
[2025-07-16] MEDS: Artificial Tears 15 ML DROPS 2 DROP EYE-BOTH (22:49)
[2025-07-17] VITALS (14 sets, daily range): BP systolic 99–108; BP diastolic 56–63; PULSE 99–124; RESP 18–24; TEMP 36.2–38.2; O2SAT 94–99; BMI 24.1
[2025-07-17] MEDS: Lactated Ringers 1,000 ML 75 ML IVCONT ×2 (02:39→15:58)
[2025-07-17] MEDS: metroNIDAZOLE/NS 500 MG/100 ML PIGGYBACK 100 MG IV ×3 (04:19→19:48)
[2025-07-17 07:25] LABS: Hematocrit 32.4 % (42.0-52.0); Hemoglobin 11.2 g/dl (14.0-18.0); Mean Corpuscular HGB Conc 34.6 g/dl (31.0-36.0); Mean Corpuscular Hemoglobin 31.1 pg (27.0-33.0); Mean Corpuscular Volume 90.0 fL (80.0-98.0); NRBC Abs Auto 0.000 X10*3/uL (0.0-0.012); NRBC Pct Auto 0.0 /100WBC (0.0-0.2); Platelet Count 331 X10*3/uL (160-400); Red Blood Count 3.60 X10*6/uL (4.60-5.80)
[2025-07-17 07:40] LABS: White Blood Count 34.8 X10*3/uL (4.8-10.8)
[2025-07-17 07:50] LABS: Band Neutrophils Percent 21 % (3-5); Monocytes Absolute Manual 0.7 X10*3/uL (0.1-1.2); Monocytes Percent Manual 2 % (2-11); Neutrophils Absolute Manual 34.1 X10*3/uL (2.0-8.3); Neutrophils Percent Manual 77 % (45-73)
[2025-07-17 07:51] LABS: Alanine Aminotransferase 12 U/L (0-40); Albumin Level 2.6 g/dL (3.5-5.0); Alkaline Phosphatase 185 U/L (39-117); Anion Gap 17 (12-20); Aspartate Amino Transferase 45 U/L (5-37); Blood Urea Nitrogen 105 mg/dL (9-16); Calcium 8.1 mg/dL (8.4-10.2); Carbon Dioxide 19 mmol/L (22-29); Chloride 102 mmol/L (96-108); Creatinine Clr Calc Pharmacy 15.4; Estimated Glomerular Filt Rate 12; Magnesium 2.7 mg/dL (1.6-2.6); Potassium 3.2 mmol/L (3.3-5.1); Sodium 135 mmol/L (135-145); Total Protein 5.4 g/dL (6.5-8.0)
[2025-07-17 07:53] LABS: Acanthocytes 1+ (0-2) /OIF; Burr Cells 3+ (>5) /OIF; Dohle Bodies PRESENT; RBC Morphology NOTED
[2025-07-17 07:57] LABS: MRSA Nasal PCR NEGATIVE (Negative); SA Nasal PCR NEGATIVE (Negative)
[2025-07-17] MEDS: Lidocaine 4 % Patch ADH..PATCH 2 PATCH TRANSDERMA (08:50)
[2025-07-17] MEDS: Artificial Tears 15 ML DROPS 2 DROP EYE-BOTH ×2 (08:51→20:13)
--- NOTE | 2025-07-17 10:49 | MHC.CM.PN ---
Per ROUNDS, Patient is not yet medically cleared for dc (renal function is not improving); returning to LTC is the goal and CM will continue to follow.
--- NOTE | 2025-07-17 11:27 | HO.WOUND ---
Wound Consult: Initial 54 yr old male admitted [place] [facility] - See progress notes and H&P for detailed history. Wound consult placed for sacral wounds. Patient agreeable to assessment and photo documentation. Seen at bedside with direct care RN. Patient with history of multiple full thickness pressure injuries. Patient from [facility] facility. Coccyx 07/14/25 admission Coccyx 07/17/25 Etiology: coccyx deep tissue pressure injury Present on Admission Measurements: 2cm x 2cm x 0cm Wound Bed: intact nonblanching purple discoloration overlying previously healed scar tissue/healed full thickness pressure injury Drainage / Odor: none Edges: ? irregular Alexa wound: ? No Induration, Fluctuance or Warmth noted Pain: none Goals of Treatment: ? triad paste to provide occlusive dressing in the setting of liquid fecal incontinence - if stooling decreases, may add foam Left hip - healed full thickness pressure injury- contracted pale pink scar tissue Right hip - healed full thickness pressure injury - contracted pale pink scar tissue Left ischium- healed full thickness pressure injury- pale pink scar tissue bilateral heels intact with scar tissue- healed and blanching - foams in place Recommendations: 1. Turn and Reposition every 2 hours and as needed for patient comfort. Use pillows or wedges to support off loading positions. 2. Off Load all bony prominences with use of pillows and heel boots if needed. Apply Preventative foams where needed. 3. Monitor for incontinence and moisture control, use barrier creams when needed for prevention and treatment. 4. Provide adequate and supplemental nutrition. 5. Order or Continue low air loss mattress. 6. When applicable maintain blood glucose levels per Providers order. Coccyx: Off Load Pressure with Q2 hr turns and use of pillows - Cleanse with PH balance spray or wipes, pat dry. ?Apply thin layer of Triad to wound bed - only pat and dab no scrub and rub when soiling occurs. Reapply thin layer PRN after each episode of incontinence. If stooling decreases, may apply foam dressing [facility]ED ARE[facility]- bilateral hips and heels: may apply protective foams change every 3 days and PRN Re-consult wound care Nurse for wound deterioration or wound changes. Coccyx: Off Load Pressure with Q2 hr turns and use of pillows - Cleanse with PH balance spray or wipes, pat dry. ?Apply thin layer of Triad to wound bed - only pat and dab no scrub and rub when soiling occurs. Reapply thin layer PRN after each episode of incontinence. If stooling decreases, may apply foam dressing HEALED ARE[facility]- bilateral hips and heels: may apply protective foams change every 3 days and PRN
--- NOTE | 2025-07-17 12:31 | P.PNIM_ITS ---
Subjective Subjective Date of Service: 07/17/25 Review of Systems Review of Systems: Yes Unobtainable due to mental condition Physical Exam 2 Exam: Exam: non verbal, bed bound, alert, ill appearing, rhonchi Vital Signs: Vital Signs: Last Vital Signs Temp 98.7 F 07/17/25 11:37 Pulse 115 H 07/17/25 11:37 Resp 20 07/17/25 11:37 BP 107/62 07/17/25 11:37 Pulse Ox 94 07/17/25 11:37 O2 Del Method High Flow Nasal C annula, T-Piece 07/17/25 11:37 O2 Flow Rate 40 07/16/25 23:29 FiO2 45 07/16/25 23:29 BMI result Body Mass Index 24.1 Objective Data Active Medications Acetylcysteine (Acetylcysteine 10 % 400 Mg/4 Ml Vial) 600 mg INHALE Q12H PRN PRN Reason: THICK AIRWAY SECRETION Last Admin: 07/16/25 20:12 Dose: 600 mg Documented By: JUDY Albuterol Sulfate (Albuterol Sulfate (0.083%) 2.5 Mg/3 Ml Vial.Neb) 2.5 mg INHALE Q4H PRN PRN Reason: Shortness Of Breath Or Wheezing Last Admin: 07/16/25 20:12 Dose: 2.5 mg Documented By: JUDY Artificial Tears (Artificial Tears 15 Ml Drops) 2 drop EYE-BOTH BID [facility] Last Admin: 07/17/25 08:51 Dose: 2 drop Documented By: BRIDGER Artificial Tears (Artificial Tears 15 Ml Drops) 1 drop EYE-BOTH BID PRN PRN Reason: red eyes Atovaquone (Atovaquone 750 Mg/5 Ml Oral.Susp) 750 mg G-TUBE BID [facility] Last Admin: 07/17/25 08:50 Dose: 750 mg Documented By: BRIDGER Atropine Sulfate (Atropine Sulfate 1 % Ophth Cady 2 Ml Bottle) 1 drop SUBLINGUAL Q6H PRN PRN Reason: Secretions Baclofen (Baclofen 10 Mg Tablet) 5 mg G-TUBE TID [facility] On Hold: 07/15/25 14:22 Last Admin: 07/15/25 08:45 Dose: 5 mg Documented By: RG Diazepam (Diazepam 10 Mg/2 Ml Cartridge) 5 mg IVPUSH STAT PRN PRN Reason: Seizures Fidaxomicin (Fidaxomicin 200 Mg Tablet) 200 mg G-TUBE Q12H [facility] Last Admin: 07/17/25 04:20 Dose: 200 mg Documented By: ANN Fluticasone Propionate (Fluticasone Propionate Nasal 16 Gm [place]) 1 spray NOSTRIL-B Q12H PRN PRN Reason: Congestion Heparin Sodium (Porcine) (Heparin Sodium,Porcine 5,000 Unit/Ml Vial) 5,000 unit SUBCUT Q12H RACHELL On Hold: 07/15/25 12:05 Last Admin: 07/15/25 09:15 Dose: 5,000 unit Documented By: RG Hydromorphone HCl (Hydromorphone Hcl 1 Mg/Ml Syringe) 0.5 mg IVPUSH Q4H PRN; Protocol On Hold: 07/15/25 14:54 PRN Reason: Pain, Severe (Pain Scale 7-10) Lactated Ringer's (Lr) 1,000 mls @ 75 mls/hr IVCONT .[id number] [facility] Last Admin: 07/17/25 02:39 Dose: 75 mls/hr Documented By: ANN Metronidazole (Flagyl) 500 mg in 100 mls @ 100 mls/hr IV Q8H [facility] Last Infusion: 07/17/25 05:44 Dose: Infused Documented By: ANN Acetaminophen (Ofirmev) 1,000 mg in 100 mls @ 400 mls/hr IV Q6H PRN PRN Reason: Fever Last Infusion: 07/17/25 04:38 Dose: Infused Documented By: ANN Ipratropium [place] (Ipratropium [place] 0.5 Mg/2.5 Ml Solution) 0.5 mg INHALE Q6H PRN PRN Reason: Shortness of Breath Lacosamide (Lacosamide 100 Mg Tablet) 200 mg G-TUBE BID [facility] Last Admin: 07/17/25 08:50 Dose: 200 mg Documented By: BRIDGER Lidocaine (Lidocaine 4 % Patch Adh..Patch) 2 patch TRANSDERMA DAILY [facility]; Protocol Last Admin: 07/17/25 08:50 Dose: 2 patch Documented By: BRIDGER Melatonin (Melatonin 3 Mg Tablet) 6 mg G-TUBE BEDTIME PRN PRN Reason: Insomnia Meropenem (Meropenem 500 Mg Vial) 500 mg IVPUSH Q12H [facility] Last Admin: 07/17/25 05:31 Dose: 500 mg Documented By: ANN Metoclopramide HCl (Metoclopramide Hcl 10 Mg/2 Ml Vial) 5 mg IVPUSH Q6H PRN PRN Reason: Nausea and Vomiting Last Admin: 07/15/25 01:12 Dose: 5 mg Documented By: EMILIANO Midodrine (Midodrine Hcl 10 Mg Tablet) 10 mg G-TUBE TID@0900,1300,1700 [facility]; Protocol Last Admin: 07/17/25 08:50 Dose: 10 mg Documented By: BRIDGER Ondansetron HCl (Ondansetron Hcl 4 Mg/2 Ml Vial) 4 mg IVPUSH Q6H [facility] Last Admin: 07/17/25 08:50 Dose: 4 mg Documented By: BRIDGER Oxycodone HCl (Oxycodone Hcl Immed Release 5 Mg Tablet) 5 mg G-TUBE Q6H PRN On Hold: 07/15/25 14:55 PRN Reason: Pain, Moderate(Pain Scale 4-6) Pantoprazole Sodium (Pantoprazole Sodium 40 Mg/10 Ml Vial) 40 mg IVPUSH BID@0630,1630 [facility] Last Admin: 07/17/25 05:31 Dose: 40 mg Documented By: ANN Scopolamine (Scopolamine 1.5 Mg Patch.Td.3) 1.5 mg TRANSDERMA Q3D [facility] Last Admin: 07/15/25 11:33 Dose: 1.5 mg Documented By: RG Sodium Chloride (0.9 % Sodium Chloride Flush 3 Ml Syringe) 3 ml IVFLUSH QSHIFT [facility] Last Admin: 07/17/25 08:32 Dose: Not Given Documented By: BRIDGER Non-Admin Reason: IV Running Sucralfate (Sucralfate 1 Gm Tablet) 1 gm PO BID@1300,1700 [facility] Last Admin: 07/16/25 17:44 Dose: 1 gm Documented By: RIOSCEL Labs 07/17/25 06:51 07/17/25 06:51 Labs: Laboratory Results - last 24 hr 07/16/25 07/17/25 18:37 06:51 MCV 90.0 MCH 31.1 MCHC 34.6 RDW 15.9 Plt Count 331 MPV 9.6 Immature Gran % (Auto) Cancelled Neut % (Auto) Cancelled Lymph % (Auto) Cancelled [place] % (Auto) Cancelled Eos % (Auto) Cancelled Baso % (Auto) Cancelled Lymph # (Auto) Cancelled [place] # (Auto) Cancelled Eos # (Auto) Cancelled Baso # (Auto) Cancelled Abs Immat Gran (auto) Cancelled Absolute Neuts (auto) Cancelled Absolute Nucleated RBC 0.000 Nucleated RBC % (auto) 0.0 Neutrophils % (Manual) 77 H Band Neutrophils % 21 H Monocytes % (Manual) 2 Abs Neuts (Manual) 34.1 H Monocytes # (Manual) 0.7 Dohle Bodies PRESENT Platelet Estimate NORMAL Plt Morphology Comment NORMAL RBC Morphology NOTED [place] Cells 3+ (>5) Acanthocytes (Spur) 1+ (0-2) Anion Gap 17 Estim Creat Clear Calc 15.4 Estimated GFR 12 Random Glucose 113 Calcium 8.1 L Magnesium 2.7 H Total Bilirubin 1.0 AST 45 H ALT 12 Alkaline Phosphatase 185 H Total Protein 5.4 L Albumin 2.6 L Nasal Screen MRSA (PCR) NEGATIVE Nasal S. aureus Screen NEGATIVE Nasal MRSA/S.aureus Interp SEE NOTE Microbiology Microbiology Results: Microbiology 07/15/25 07:48 Gram Stain - Final Sputum - Expectorated Sputum Culture - Final 07/14/25 Unknown Urine Culture - Final Urine clean catch - Clean Catch Midstream Escherichia coli 07/14/25 18:16 Blood Culture - Preliminary Blood - Venous No growth after 48 hours. 07/14/25 18:17 Blood Culture - Final Blood - Venous Coag negative Staphylococcus Assessment and Plan (1) Diarrhea: Status: Acute Plan 54M PMH stage IV mantle cell lymphoma, toxoplasmosis, seizure disorder, chronic hypoxic respiratory failure with tracheostomy, bed bound, non verbal, gtube, presented with fever, vomitting Severe sepsis and acute on chronic hypoxic respiratory failure and acute metabolic encephalopathy due to aspiration pneumonia, ESBL UTI and C diff colitis Continue ertapenem, MRSA swab negative discontinue vancomycin IV, continue G- tube fidaxomicin, IV Flagyl Can rechallenge with G-tube feeds Acute renal failure on CKD 3 ATN due to sepsis Nephrology following Toxoplasmosis Continue atovaquone Epilepsy Lacosamide DVT prophylaxis-mechanical heparin subQ Full code reason for continued hospitalization: Severe renal failure Quality Stroke Does the patient have a stroke diagnosis?: No VTE Prior VTE?: No VTE Risk Level:: Medical - moderate - high VTE Device Contraindication: Treatment Not Indicated VTE Drug Contraindication: N/A - Med Ordered
--- NOTE | 2025-07-17 13:01 | MHC.CLN ---
CONSULT PATIENT WITH TRACHEOSTOMY, NPO AND REQUIRES NUTRITION/HYDRATION VIA PEG. SKIN WITH DTI TO COCCYX. RECOMMEND TUBE FEEDING OSMOLITE 1.5 AT 55 ML PER HOUR CONTINUOUS, FREE WATER FLUSHES 300ML Q 6 HRS TO PROVIDE 1980KCALS (27KCALS/KG), 83G PROTEIN (1.2G/KG), 2206ML TOTAL WATER FROM FORMULA AND FLUSHES (36ML/KG) START TF AT 20ML/HR AND INCREASE BY 10ML Q 4 HRS UNTIL MAX GOAL IS ACHIEVED TF WILL PROMOTE WOUND HEALING MONITOR TOLERANCE AND LYTES
--- NOTE | 2025-07-17 15:06 | PM.PNNEP ---
Subjective Subjective Date of Service: 07/17/25 Interval history: Continues to be on high-flow oxygen but FiO2 reduced to 40% and 40 L Urine output about 1650, has multiple stool output Physical Exam Vital Signs: Vital Signs: Last Vital Signs Temp 98.7 F 07/17/25 11:37 Pulse 115 H 07/17/25 11:37 Resp 20 07/17/25 11:37 BP 107/62 07/17/25 11:37 Pulse Ox 94 07/17/25 11:37 O2 Del Method High Flow Nasal C annula, T-Piece 07/17/25 11:37 O2 Flow Rate 40 07/16/25 23:29 FiO2 45 07/16/25 23:29 BMI result Body Mass Index 24.1 General: Middle-aged male in mild acute distress, chronic ill appearing Nutritional Appearance: Poorly nourished and underweight Eyes: appearance normal, both eyes and all related structures; Alignment and Position: alignment normal and position normal Neck: No lymphadenopathy, no thyromegaly tracheostomy in place Resp: bilateral air entry equal, no added sounds present Cardio: Regular rate, regular rhythm; Heart sounds: S1 normal heart sound present and S2 normal heart sound present GI: soft, nontender, no guarding, no hepatosplenomegaly : bladder normal to inspection, bladder normal to palpation, no renal angle tenderness Skin: no rashes or lesions noted and elasticity normal Neuro: Has chronic neuro deficits Objective Data Labs 07/17/25 06:51 07/17/25 06:51 Labs: Laboratory Results - last 24 hr 07/16/25 07/17/25 18:37 06:51 WBC 34.8 H* RBC 3.60 L Hgb 11.2 L Hct 32.4 L MCV 90.0 MCH 31.1 MCHC 34.6 RDW 15.9 Plt Count 331 MPV 9.6 Immature Gran % (Auto) Cancelled Neut % (Auto) Cancelled Lymph % (Auto) Cancelled [place] % (Auto) Cancelled Eos % (Auto) Cancelled Baso % (Auto) Cancelled Lymph # (Auto) Cancelled [place] # (Auto) Cancelled Eos # (Auto) Cancelled Baso # (Auto) Cancelled Abs Immat Gran (auto) Cancelled Absolute Neuts (auto) Cancelled Absolute Nucleated RBC 0.000 Nucleated RBC % (auto) 0.0 Neutrophils % (Manual) 77 H Band Neutrophils % 21 H Monocytes % (Manual) 2 Abs Neuts (Manual) 34.1 H Monocytes # (Manual) 0.7 Dohle Bodies PRESENT Platelet Estimate NORMAL Plt Morphology Comment NORMAL RBC Morphology NOTED [place] Cells 3+ (>5) Acanthocytes (Spur) 1+ (0-2) Sodium 135 Potassium 3.2 L Chloride 102 Carbon Dioxide 19 L Anion Gap 17 BUN 105 H Creatinine 5.04 H* Estim Creat Clear Calc 15.4 Estimated GFR 12 Random Glucose 113 Calcium 8.1 L Magnesium 2.7 H Total Bilirubin 1.0 AST 45 H ALT 12 Alkaline Phosphatase 185 H Total Protein 5.4 L Albumin 2.6 L Nasal Screen MRSA (PCR) NEGATIVE Nasal S. aureus Screen NEGATIVE Nasal MRSA/S.aureus Interp SEE NOTE Microbiology Microbiology Results: Microbiology 07/15/25 07:48 Sputum - Expectorated Gram Stain - Final 07/15/25 07:48 Sputum - Expectorated Sputum Culture - Final 07/14/25 Unknown Urine clean catch - Clean Catch Midstream Urine Culture - Final Escherichia coli 07/14/25 18:16 Blood - Venous Blood Culture - Preliminary No growth after 48 hours. 07/14/25 18:17 Blood - Venous Blood Culture - Final Coag negative Staphylococcus Procedures Date of Service Date of Service: 07/17/25 Assessment & Plan Assessment and plan (1) Acute kidney injury superimposed on CKD: Status: Acute (2) Acute hyponatremia: Status: Acute Plan Acute kidney injury: Possibly secondary to ATN secondary to severe volume depletion as his creatinine is not improving with volume replacement. Baseline creatinine normal, creatinine 5.04, plateaued since yesterday; hopefully we will start improving soon. Renal ultrasound showed no obstruction, right kidney 10 cm, left kidney 12 cm Urine cultures growing ESBL UTI, continue meropenem. Has significant volume loss due to C diff diarrhea, 3 episodes last night and 2 episodes today I's and o's are equal but patient has significant diarrhea which accounts to uncounted volume loss. Will increase LR to 125cc/hr. Acute hypoxemic respiratory failure: Possibly due to aspiration pneumonia Currently on FiO2 40%, 40 L/min slowly improving oxygen requirement since admission Acute hyponatremia: Possibly secondary to persistent diarrhea Sodium 135 this morning Time Spent With Patient Time: Total time managing care of this patient today ____ minutes. Progress Note: Quality Stroke Does the patient have a stroke diagnosis?: No
[2025-07-18] VITALS (14 sets, daily range): BP systolic 97–106; BP diastolic 54–61; PULSE 89–101; RESP 18–28; TEMP 36.6–37.7; O2SAT 93–97
[2025-07-18] MEDS: Lactated Ringers 1,000 ML 125 ML IVCONT ×4 (00:29→23:38)
[2025-07-18] MEDS: metroNIDAZOLE/NS 500 MG/100 ML PIGGYBACK 100 MG IV ×3 (03:24→21:45)
[2025-07-18 06:06] LABS: Hematocrit 30.3 % (42.0-52.0); Hemoglobin 10.4 g/dl (14.0-18.0); Mean Corpuscular HGB Conc 34.3 g/dl (31.0-36.0); Mean Corpuscular Hemoglobin 31.1 pg (27.0-33.0); Mean Corpuscular Volume 90.7 fL (80.0-98.0); NRBC Abs Auto 0.000 X10*3/uL (0.0-0.012); NRBC Pct Auto 0.0 /100WBC (0.0-0.2); Platelet Count 316 X10*3/uL (160-400); Red Blood Count 3.34 X10*6/uL (4.60-5.80); White Blood Count 27.3 X10*3/uL (4.8-10.8)
[2025-07-18 06:49] LABS: Alanine Aminotransferase 12 U/L (0-40); Albumin Level 2.4 g/dL (3.5-5.0); Alkaline Phosphatase 162 U/L (39-117); Anion Gap 15 (12-20); Aspartate Amino Transferase 48 U/L (5-37); Blood Urea Nitrogen 115 mg/dL (9-16); Calcium 7.7 mg/dL (8.4-10.2); Carbon Dioxide 21 mmol/L (22-29); Chloride 107 mmol/L (96-108); Creatinine Clr Calc Pharmacy 18.3; Estimated Glomerular Filt Rate 14; Magnesium 2.8 mg/dL (1.6-2.6); Potassium 2.9 mmol/L (3.3-5.1); Sodium 140 mmol/L (135-145); Total Protein 5.0 g/dL (6.5-8.0)
[2025-07-18] MEDS: Potassium Chloride Packet 20 MEQ PACKET 40 MEQ PO (07:18)
[2025-07-18] MEDS: Lidocaine 4 % Patch ADH..PATCH 2 PATCH TRANSDERMA (09:23)
[2025-07-18] MEDS: Albumin Human 25 % 100 ML IV ×2 (09:23→15:18)
[2025-07-18] MEDS: 0.9 % Sodium Chloride Flush 3 ML SYRINGE IVFLUSH ×3 (09:25→23:43)
[2025-07-18] MEDS: Artificial Tears 15 ML DROPS 2 DROP EYE-BOTH ×2 (09:28→21:47)
[2025-07-18] MEDS: Potassium Chloride Packet 20 MEQ PACKET 40 MEQ G-TUBE (12:03)
--- NOTE | 2025-07-18 12:09 | HO.PM.IMPN ---
Subjective Subjective Date of Service: 07/18/25 Interval History: tolerating feeds Physical Exam Vital Signs: Vital Signs: Last Vital Signs Temp 99.8 F 07/18/25 11:18 Pulse 101 H 07/18/25 11:18 Resp 28 H 07/18/25 11:18 BP 100/57 L 07/18/25 11:18 Pulse Ox 95 07/18/25 11:18 O2 Del Method T-Piece 07/18/25 11:18 O2 Flow Rate 30 07/18/25 11:18 FiO2 30 07/18/25 11:18 BMI result Body Mass Index 24.1 General: Middle-aged male in mild acute distress, chronic ill appearing Nutritional Appearance: Poorly nourished and underweight Eyes: appearance normal, both eyes and all related structures; Alignment and Position: alignment normal and position normal Neck: No lymphadenopathy, no thyromegaly tracheostomy in place Resp: bilateral air entry equal, no added sounds present Cardio: Regular rate, regular rhythm; Heart sounds: S1 normal heart sound present and S2 normal heart sound present GI: soft, nontender, no guarding, no hepatosplenomegaly : bladder normal to inspection, bladder normal to palpation, no renal angle tenderness Skin: no rashes or lesions noted and elasticity normal Neuro: Has chronic neuro deficits Objective Data Active Medications Acetylcysteine (Acetylcysteine 10 % 400 Mg/4 Ml Vial) 600 mg INHALE Q12H PRN PRN Reason: THICK AIRWAY SECRETION Last Admin: 07/16/25 20:12 Dose: 600 mg Documented By: JUDY Albuterol Sulfate (Albuterol Sulfate (0.083%) 2.5 Mg/3 Ml Vial.Neb) 2.5 mg INHALE Q4H PRN PRN Reason: Shortness Of Breath Or Wheezing Last Admin: 07/16/25 20:12 Dose: 2.5 mg Documented By: JUDY Artificial Tears (Artificial Tears 15 Ml Drops) 2 drop EYE-BOTH BID [facility] Last Admin: 07/18/25 09:28 Dose: 2 drop Documented By: BRIGHT Artificial Tears (Artificial Tears 15 Ml Drops) 1 drop EYE-BOTH BID PRN PRN Reason: red eyes Atovaquone (Atovaquone 750 Mg/5 Ml Oral.Susp) 750 mg G-TUBE BID [facility] Last Admin: 07/18/25 09:23 Dose: 750 mg Documented By: BRIGHT Atropine Sulfate (Atropine Sulfate 1 % Ophth Cady 2 Ml Bottle) 1 drop SUBLINGUAL Q6H PRN PRN Reason: Secretions Baclofen (Baclofen 10 Mg Tablet) 5 mg G-TUBE TID [facility] On Hold: 07/15/25 14:22 Last Admin: 07/15/25 08:45 Dose: 5 mg Documented By: RG Diazepam (Diazepam 10 Mg/2 Ml Cartridge) 5 mg IVPUSH STAT PRN PRN Reason: Seizures Fidaxomicin (Fidaxomicin 200 Mg Tablet) 200 mg G-TUBE Q12H [facility] Last Admin: 07/18/25 03:24 Dose: 200 mg Documented By: ANN Fluticasone Propionate (Fluticasone Propionate Nasal 16 Gm [place]) 1 spray NOSTRIL-B Q12H PRN PRN Reason: Congestion Heparin Sodium (Porcine) (Heparin Sodium,Porcine 5,000 Unit/Ml Vial) 5,000 unit SUBCUT Q12H [facility]AC[facility] Last Admin: 07/18/25 09:23 Dose: 5,000 unit Documented By: BRIGHT Hydromorphone HCl (Hydromorphone Hcl 1 Mg/Ml Syringe) 0.5 mg IVPUSH Q4H PRN; Protocol On Hold: 07/15/25 14:54 PRN Reason: Pain, Severe (Pain Scale 7-10) Lactated Ringer's (Lr) 1,000 mls @ 125 mls/hr IVCONT .Q8H [facility] Last Admin: 07/18/25 09:26 Dose: 125 mls/hr Documented By: BRIGHT Metronidazole (Flagyl) 500 mg in 100 mls @ 100 mls/hr IV Q8H [facility] Last Admin: 07/18/25 12:04 Dose: 100 mls/hr Documented By: BRIGHT Acetaminophen (Ofirmev) 1,000 mg in 100 mls @ 400 mls/hr IV Q6H PRN PRN Reason: Fever Last Admin: 07/18/25 11:59 Dose: 400 mls/hr Documented By: BRIGHT Albumin Human (Kedbumin 25 %) 100 mls @ 100 mls/hr IV Q6H [facility]AC[facility] Stop: 07/18/25 14:59 Last Infusion: 07/18/25 11:51 Dose: Infused Documented By: BRIGHT Ipratropium [place] (Ipratropium [place] 0.5 Mg/2.5 Ml Solution) 0.5 mg INHALE Q6H PRN PRN Reason: Shortness of Breath Lacosamide (Lacosamide 100 Mg Tablet) 200 mg G-TUBE BID [facility] Last Admin: 07/18/25 09:25 Dose: 200 mg Documented By: BRIGHT Lidocaine (Lidocaine 4 % Patch Adh..Patch) 2 patch TRANSDERMA DAILY [facility]; Protocol Last Admin: 07/18/25 09:23 Dose: 2 patch Documented By: BRIGHT Loperamide HCl (Loperamide Hcl Oral Liquid 2 Mg/15 Ml Liquid) 2 mg G-TUBE Q6H PRN PRN Reason: Diarrhea Melatonin (Melatonin 3 Mg Tablet) 6 mg G-TUBE BEDTIME PRN PRN Reason: Insomnia Meropenem (Meropenem 500 Mg Vial) 500 mg IVPUSH Q12H [facility] Last Admin: 07/18/25 05:15 Dose: 500 mg Documented By: ANN Metoclopramide HCl (Metoclopramide Hcl 10 Mg/2 Ml Vial) 5 mg IVPUSH Q6H PRN PRN Reason: Nausea and Vomiting Last Admin: 07/15/25 01:12 Dose: 5 mg Documented By: EMILIANO Midodrine (Midodrine Hcl 10 Mg Tablet) 10 mg G-TUBE TID@0900,1300,1700 [facility]; Protocol Last Admin: 07/18/25 12:04 Dose: 10 mg Documented By: BRIGHT Ondansetron HCl (Ondansetron Hcl 4 Mg/2 Ml Vial) 4 mg IVPUSH Q6H [facility] Last Admin: 07/18/25 09:23 Dose: 4 mg Documented By: BRIGHT Oxycodone HCl (Oxycodone Hcl Immed Release 5 Mg Tablet) 5 mg G-TUBE Q6H PRN On Hold: 07/15/25 14:55 PRN Reason: Pain, Moderate(Pain Scale 4-6) Pantoprazole Sodium (Pantoprazole Sodium 40 Mg/10 Ml Vial) 40 mg IVPUSH BID@0630,1630 [facility] Last Admin: 07/18/25 05:15 Dose: 40 mg Documented By: ANN Scopolamine (Scopolamine 1.5 Mg Patch.Td.3) 1.5 mg TRANSDERMA Q3D [facility] Last Admin: 07/18/25 09:22 Dose: 1.5 mg Documented By: BRIGHT Sodium Chloride (0.9 % Sodium Chloride Flush 3 Ml Syringe) 3 ml IVFLUSH QSHIFT [facility] Last Admin: 07/18/25 09:25 Dose: 3 ml Documented By: BRIGHT Sucralfate (Sucralfate 1 Gm Tablet) 1 gm PO BID@1300,1700 [facility] Last Admin: 07/18/25 12:03 Dose: 1 gm Documented By: BRIGHT Labs 07/18/25 05:29 07/18/25 05:29 Labs: Laboratory Results - last 24 hr 07/17/25 07/18/25 06:51 05:29 MCV 90.7 MCH 31.1 MCHC 34.3 RDW 15.9 Plt Count 316 MPV 9.6 Absolute Nucleated RBC 0.000 Nucleated RBC % (auto) 0.0 Anion Gap 15 Estim Creat Clear Calc 18.3 Estimated GFR 14 Random Glucose 166 H Calcium 7.7 L Magnesium 2.8 H Total Bilirubin 0.8 Direct Bilirubin 0.5 AST 48 H ALT 12 Alkaline Phosphatase 162 H Total Creatine Kinase 239 H Total Protein 5.0 L Albumin 2.4 L Microbiology Microbiology Results: Microbiology 07/15/25 07:48 Gram Stain - Final Sputum - Expectorated Sputum Culture - Final 07/14/25 Unknown Urine Culture - Final Urine clean catch - Clean Catch Midstream Escherichia coli Assessment and Plan (1) Diarrhea: Status: Acute Plan 54M PMH stage IV mantle cell lymphoma, toxoplasmosis, seizure disorder, chronic hypoxic respiratory failure with tracheostomy, bed bound, non verbal, gtube, presented with fever, vomitting Severe sepsis and acute on chronic hypoxic respiratory failure and acute metabolic encephalopathy due to aspiration pneumonia, ESBL UTI and C diff colitis Continue merepenem, MRSA swab negative discontinued vancomycin IV, continue G-tube fidaxomicin - has had 3 days can use imodium as needed, IV Flagyl so far tolerating G-tube feeds Acute renal failure on CKD 3 ATN due to sepsis Nephrology following acute hpyokalemia replace and monitor Toxoplasmosis Continue atovaquone Epilepsy Lacosamide DVT prophylaxis-mechanical heparin subQ Full code reason for continued hospitalization: Severe renal failure Quality Stroke Does the patient have a stroke diagnosis?: No VTE Prior VTE?: No VTE Risk Level:: Medical - moderate - high VTE Device Contraindication: Treatment Not Indicated VTE Drug Contraindication: N/A - Med Ordered
--- NOTE | 2025-07-18 16:13 | P.PNNP_ITS ---
Subjective Subjective Date of Service: 07/18/25 Interval history: Two episodes of diarrhea overnight, started on NG tube feeds Creatinine down trending, down to 4.56 this morning WBC count trending down 27.3 K Physical Exam 2 Vital Signs: Vital Signs: Last Vital Signs Temp 99.7 F 07/18/25 15:26 Pulse 96 07/18/25 15:26 Resp 18 07/18/25 15:29 BP 97/54 L 07/18/25 15:26 Pulse Ox 94 07/18/25 15:26 O2 Del Method T-Piece 07/18/25 15:26 O2 Flow Rate 30 07/18/25 15:26 FiO2 30 07/18/25 15:26 BMI result Body Mass Index 24.1 General: acute distress, ill appearing and tired appearing Nutritional Appearance: Poor nourished and overweight Eyes: appearance normal, both eyes and all related structures; Alignment and Position: alignment normal and position normal Neck: No lymphadenopathy, no thyromegaly, tracheostomy tube in place Resp: bilateral air entry equal, occasional added sounds present Cardio: Regular rate, regular rhythm; Heart sounds: S1 S2 normal GI: soft, nontender, no guarding, no hepatosplenomegaly : bladder normal to inspection, bladder normal to palpation, no renal angle tenderness Skin: no rashes or lesions noted and elasticity normal Neuro: Drowsy, not following commands Objective Data Labs 07/18/25 05:29 07/18/25 05:29 Labs: Laboratory Results - last 24 hr 07/18/25 05:29 WBC 27.3 H RBC 3.34 L Hgb 10.4 L Hct 30.3 L MCV 90.7 MCH 31.1 MCHC 34.3 RDW 15.9 Plt Count 316 MPV 9.6 Absolute Nucleated RBC 0.000 Nucleated RBC % (auto) 0.0 Sodium 140 Potassium 2.9 L* Chloride 107 Carbon Dioxide 21 L Anion Gap 15 BUN 115 H Creatinine 4.56 H* Estim Creat Clear Calc 18.3 Estimated GFR 14 Random Glucose 166 H Calcium 7.7 L Magnesium 2.8 H Total Bilirubin 0.8 Direct Bilirubin 0.5 AST 48 H ALT 12 Alkaline Phosphatase 162 H Total Protein 5.0 L Albumin 2.4 L Microbiology Microbiology Results: Microbiology 07/15/25 07:48 Sputum - Expectorated Gram Stain - Final 07/15/25 07:48 Sputum - Expectorated Sputum Culture - Final 07/14/25 Unknown Urine clean catch - Clean Catch Midstream Urine Culture - Final Escherichia coli 07/14/25 18:16 Blood - Venous Blood Culture - Preliminary No growth after 48 hours. 07/14/25 18:17 Blood - Venous Blood Culture - Final Coag negative Staphylococcus Procedures Date of Service Date of Service: 07/18/25 Assessment & Plan Assessment and plan (1) Acute and chronic respiratory failure with hypoxia: Status: Acute (2) Acute kidney injury superimposed on CKD: Status: Acute (3) Acute hyponatremia: Status: Acute Plan Acute kidney injury: Possibly secondary to ATN secondary to severe volume depletion as his creatinine is not improving with volume replacement. Baseline creatinine normal, peaked to 5.04, trending down today to 4.56. BUN increasing to 115 possibly due to catabolic phase Renal ultrasound showed no obstruction, right kidney 10 cm, left kidney 12 cm Urine cultures growing ESBL UTI, continue meropenem. Continue LR at 125cc/hr. Acute hypoxemic respiratory failure: Possibly due to aspiration pneumonia Currently on FiO2 30%, 30 L/min slowly improving oxygen requirement since admission, saturations around 97% High-flow oxygen mostly to humidify his airway the chest thick encrustations Acute hyponatremia: Possibly secondary to persistent diarrhea Sodium 135 this morning Time Spent With Patient Time: Total time managing care of this patient today ____ minutes. Progress Note: Quality Stroke Does the patient have a stroke diagnosis?: No
[2025-07-18] MEDS: Loperamide HCl Oral Liquid 2 MG/15 ML LIQUID G-TUBE (16:30)
--- NOTE | 2025-07-18 21:43 | PC.NURSE ---
At approx 1999, pt was bladder scanned for 483ml. Aleks Mercado MD was notified. advised RN to wait a few hours to see if pt voids. At approx 2130, pt voided 300ml tea colored urine via external cath. Plan of care ongoing.
--- NOTE | 2025-07-18 23:20 | P.PNID_ITS ---
Subjective Subjective Date of Service: 07/18/25 Critical Care Time (minutes): 15 Comment: He has CKD, temp max 100.5 yesterday,no temperature today Objective Data Labs 07/18/25 05:29 07/18/25 05:29 Labs: Laboratory Results - last 24 hr 07/18/25 05:29 WBC 27.3 H RBC 3.34 L Hgb 10.4 L Hct 30.3 L MCV 90.7 MCH 31.1 MCHC 34.3 RDW 15.9 Plt Count 316 MPV 9.6 Absolute Nucleated RBC 0.000 Nucleated RBC % (auto) 0.0 Sodium 140 Potassium 2.9 L* Chloride 107 Carbon Dioxide 21 L Anion Gap 15 BUN 115 H Creatinine 4.56 H* Estim Creat Clear Calc 18.3 Estimated GFR 14 Random Glucose 166 H Calcium 7.7 L Magnesium 2.8 H Total Bilirubin 0.8 Direct Bilirubin 0.5 AST 48 H ALT 12 Alkaline Phosphatase 162 H Total Protein 5.0 L Albumin 2.4 L Microbiology Microbiology Results: Microbiology 07/15/25 07:48 Sputum - Expectorated Gram Stain - Final 07/15/25 07:48 Sputum - Expectorated Sputum Culture - Final 07/14/25 Unknown Urine clean catch - Clean Catch Midstream Urine Culture - Final Escherichia coli 07/14/25 18:16 Blood - Venous Blood Culture - Preliminary No growth after 48 hours. 07/14/25 18:17 Blood - Venous Blood Culture - Final Coag negative Staphylococcus Physical Exam 2 Vital Signs: Vital Signs: Last Vital Signs Temp 97.9 F 07/18/25 20:00 Pulse 89 07/18/25 20:00 Resp 22 H 07/18/25 23:18 BP 106/59 L 07/18/25 20:00 Pulse Ox 96 07/18/25 20:00 O2 Del Method T-Piece 07/18/25 20:00 O2 Flow Rate 30 07/18/25 20:00 FiO2 30 07/18/25 20:00 BMI result Body Mass Index 24.1 Const: General: cooperative HEENT: Head: Yes normal to inspection Face and sinus: Yes normal facial exam Mouth: Normal oral and palatal mucosa present Teeth and gingiva: d entition normal Eyes: General: appearance normal, both eyes and all related structures P upils: Equal, round and reactive pupils present Resp: Effort & Inspection: normal respiratory effort Cardio: Rate: regular rate Rhythm: regular rhythm GI: Palpation (GI): Soft to palpation and nontender : General: Yes no CVA tenderness Back/Spine/Pelvis: Back: no CVA tenderness Skin: General skin exam: no rashes or lesions noted Neuro: General: moves all extremities Cranial nerves: Yes Equal, round and reactive pupils present Extrem: General: Yes normal to inspection Psych: Other: confused Assessment and Plan Assessment and plan (1) Toxoplasmosis: Problem details: He has no temperature today Status: Acute Assessment and Plan: Now day 11/19 Merem Continue Can stop Vancomycin if nares negative. (2) Acute and chronic respiratory failure with hypoxia: Status: Acute Time Spent With Patient Time: Total time managing care of this patient today ____ minutes.
[2025-07-19] VITALS (12 sets, daily range): BP systolic 91–113; BP diastolic 56–64; PULSE 87–101; RESP 16–24; TEMP 36.3–37.1; O2SAT 87–98
[2025-07-19] MEDS: metroNIDAZOLE/NS 500 MG/100 ML PIGGYBACK 100 MG IV ×3 (03:16→21:45)
[2025-07-19 06:57] LABS: Hematocrit 29.3 % (42.0-52.0); Hemoglobin 9.8 g/dl (14.0-18.0); Mean Corpuscular HGB Conc 33.4 g/dl (31.0-36.0); Mean Corpuscular Hemoglobin 31.2 pg (27.0-33.0); Mean Corpuscular Volume 93.3 fL (80.0-98.0); NRBC Abs Auto 0.000 X10*3/uL (0.0-0.012); NRBC Pct Auto 0.0 /100WBC (0.0-0.2); Platelet Count 270 X10*3/uL (160-400); Red Blood Count 3.14 X10*6/uL (4.60-5.80); White Blood Count 17.4 X10*3/uL (4.8-10.8)
[2025-07-19 07:27] LABS: Anion Gap 12 (12-20); Blood Urea Nitrogen 100 mg/dL (9-16); Calcium 7.8 mg/dL (8.4-10.2); Carbon Dioxide 23 mmol/L (22-29); Chloride 114 mmol/L (96-108); Creatinine Clr Calc Pharmacy 26.8; Estimated Glomerular Filt Rate 21; Magnesium 2.5 mg/dL (1.6-2.6); Potassium 3.3 mmol/L (3.3-5.1); Sodium 146 mmol/L (135-145)
[2025-07-19] MEDS: Loperamide HCl Oral Liquid 2 MG/15 ML LIQUID G-TUBE (08:31)
[2025-07-19] MEDS: Lactated Ringers 1,000 ML 125 ML IVCONT ×2 (08:32→16:15)
[2025-07-19] MEDS: 0.9 % Sodium Chloride Flush 3 ML SYRINGE IVFLUSH ×2 (08:32→16:15)
[2025-07-19] MEDS: Lidocaine 4 % Patch ADH..PATCH 2 PATCH TRANSDERMA (08:32)
[2025-07-19] MEDS: Artificial Tears 15 ML DROPS 2 DROP EYE-BOTH ×2 (08:33→21:46)
--- NOTE | 2025-07-19 08:56 | HO.PM.IMPN ---
Subjective Subjective Date of Service: 07/19/25 Interval History: tolerating feeds Physical Exam Vital Signs: Vital Signs: Last Vital Signs Temp 97.7 F 07/19/25 08:00 Pulse 101 H 07/19/25 08:00 Resp 16 07/19/25 08:00 BP 95/57 L 07/19/25 08:00 Pulse Ox 94 07/19/25 08:00 O2 Del Method Room Air 07/19/25 08:00 O2 Flow Rate 30 07/19/25 04:00 FiO2 30 07/19/25 04:00 BMI result Body Mass Index 24.1 General: Middle-aged male in mild acute distress, chronic ill appearing Nutritional Appearance: Poorly nourished and underweight Eyes: appearance normal, both eyes and all related structures; Alignment and Position: alignment normal and position normal Neck: No lymphadenopathy, no thyromegaly tracheostomy in place Resp: bilateral air entry equal, no added sounds present Cardio: Regular rate, regular rhythm; Heart sounds: S1 normal heart sound present and S2 normal heart sound present GI: soft, nontender, no guarding, no hepatosplenomegaly : bladder normal to inspection, bladder normal to palpation, no renal angle tenderness Skin: no rashes or lesions noted and elasticity normal Neuro: Has chronic neuro deficits Const: General: cooperative HEENT: Head: Yes normal to inspection Face and sinus: Yes normal facial exam Mouth: Normal oral and palatal mucosa present Teeth and gingiva: dentition normal Eyes: General: appearance normal, both eyes and all related structures Pupils: Equal, round and reactive pupils present Resp: Effort & Inspection: normal respiratory effort Cardio: Rate: regular rate Rhythm: regular rhythm GI: Palpation (GI): Soft to palpation and nontender : General: Yes no CVA tenderness Back/Spine/Pelvis: Back: no CVA tenderness Skin: General skin exam: no rashes or lesions noted Neuro: General: moves all extremities Cranial nerves: Yes Equal, round and reactive pupils present Extrem: General: Yes normal to inspection Psych: Other: confused Objective Data Active Medications Acetylcysteine (Acetylcysteine 10 % 400 Mg/4 Ml Vial) 600 mg INHALE Q12H PRN PRN Reason: THICK AIRWAY SECRETION Last Admin: 07/16/25 20:12 Dose: 600 mg Documented By: JUDY Albuterol Sulfate (Albuterol Sulfate (0.083%) 2.5 Mg/3 Ml Vial.Neb) 2.5 mg INHALE Q4H PRN PRN Reason: Shortness Of Breath Or Wheezing Last Admin: 07/16/25 20:12 Dose: 2.5 mg Documented By: JUDY Artificial Tears (Artificial Tears 15 Ml Drops) 2 drop EYE-BOTH BID [facility] Last Admin: 07/19/25 08:33 Dose: 2 drop Documented By: BRIGHT Artificial Tears (Artificial Tears 15 Ml Drops) 1 drop EYE-BOTH BID PRN PRN Reason: red eyes Atovaquone (Atovaquone 750 Mg/5 Ml Oral.Susp) 750 mg G-TUBE BID [facility] Last Admin: 07/19/25 08:31 Dose: 750 mg Documented By: BRIGHT Atropine Sulfate (Atropine Sulfate 1 % Ophth [place] 2 Ml Bottle) 1 drop SUBLINGUAL Q6H PRN PRN Reason: Secretions Baclofen (Baclofen 10 Mg Tablet) 5 mg G-TUBE TID [facility] On Hold: 07/15/25 14:22 Last Admin: 07/15/25 08:45 Dose: 5 mg Documented By: RG Diazepam (Diazepam 10 Mg/2 Ml Cartridge) 5 mg IVPUSH STAT PRN PRN Reason: Seizures Fidaxomicin (Fidaxomicin 200 Mg Tablet) 200 mg G-TUBE Q12H [facility] Last Admin: 07/19/25 03:08 Dose: 200 mg Documented By: MARCOS Fluticasone Propionate (Fluticasone Propionate Nasal 16 Gm [place]) 1 spray NOSTRIL-B Q12H PRN PRN Reason: Congestion Heparin Sodium (Porcine) (Heparin Sodium,Porcine 5,000 Unit/Ml Vial) 5,000 unit SUBCUT Q12H [facility] Last Admin: 07/19/25 08:31 Dose: 5,000 unit Documented By: BRIGHT Hydromorphone HCl (Hydromorphone Hcl 1 Mg/Ml Syringe) 0.5 mg IVPUSH Q4H PRN; Protocol On Hold: 07/15/25 14:54 PRN Reason: Pain, Severe (Pain Scale 7-10) Lactated Ringer's (Lr) 1,000 mls @ 125 mls/hr IVCONT .Q8H [facility] Last Admin: 07/19/25 08:32 Dose: 125 mls/hr Documented By: BRIGHT Metronidazole (Flagyl) 500 mg in 100 mls @ 100 mls/hr IV Q8H [facility] Last Infusion: 07/19/25 04:25 Dose: Infused Documented By: MARCOS Ipratropium [place] (Ipratropium [place] 0.5 Mg/2.5 Ml Solution) 0.5 mg INHALE Q6H PRN PRN Reason: Shortness of Breath Lacosamide (Lacosamide 100 Mg Tablet) 200 mg G-TUBE BID [facility] Last Admin: 07/19/25 08:31 Dose: 200 mg Documented By: BRIGHT Lidocaine (Lidocaine 4 % Patch Adh..Patch) 2 patch TRANSDERMA DAILY [facility]; Protocol Last Admin: 07/19/25 08:32 Dose: 2 patch Documented By: BRIGHT Loperamide HCl (Loperamide Hcl Oral Liquid 2 Mg/15 Ml Liquid) 2 mg G-TUBE Q6H PRN PRN Reason: Diarrhea Last Admin: 07/19/25 08:31 Dose: 2 mg Documented By: BRIGHT Melatonin (Melatonin 3 Mg Tablet) 6 mg G-TUBE BEDTIME PRN PRN Reason: Insomnia Meropenem (Meropenem 500 Mg Vial) 500 mg IVPUSH Q12H [facility] Last Admin: 07/19/25 05:57 Dose: 500 mg Documented By: MARCOS Metoclopramide HCl (Metoclopramide Hcl 10 Mg/2 Ml Vial) 5 mg IVPUSH Q6H PRN PRN Reason: Nausea and Vomiting Last Admin: 07/15/25 01:12 Dose: 5 mg Documented By: EMILIANO Midodrine (Midodrine Hcl 10 Mg Tablet) 10 mg G-TUBE TID@0900,1300,1700 [facility]; Protocol Last Admin: 07/19/25 08:31 Dose: 10 mg Documented By: BRIGHT Ondansetron HCl (Ondansetron Hcl 4 Mg/2 Ml Vial) 4 mg IVPUSH Q6H [facility] Last Admin: 07/19/25 08:31 Dose: 4 mg Documented By: BRIGHT Oxycodone HCl (Oxycodone Hcl Immed Release 5 Mg Tablet) 5 mg G-TUBE Q6H PRN On Hold: 07/15/25 14:55 PRN Reason: Pain, Moderate(Pain Scale 4-6) Pantoprazole Sodium (Pantoprazole Sodium 40 Mg/10 Ml Vial) 40 mg IVPUSH BID@0630,1630 [facility] Last Admin: 07/19/25 05:57 Dose: 40 mg Documented By: MARCOS Scopolamine (Scopolamine 1.5 Mg Patch.Td.3) 1.5 mg TRANSDERMA Q3D [facility] Last Admin: 07/18/25 09:22 Dose: 1.5 mg Documented By: BRIGHT Sodium Chloride (0.9 % Sodium Chloride Flush 3 Ml Syringe) 3 ml IVFLUSH QSHIFT [facility] Last Admin: 07/19/25 08:32 Dose: 3 ml Documented By: BRIGHT Sucralfate (Sucralfate 1 Gm Tablet) 1 gm PO BID@1300,1700 [facility] Last Admin: 07/18/25 16:30 Dose: 1 gm Documented By: BRIGHT Labs 07/19/25 06:19 07/19/25 06:19 Labs: Laboratory Results - last 24 hr 07/19/25 06:19 MCV 93.3 MCH 31.2 MCHC 33.4 RDW 16.1 H Plt Count 270 MPV 9.8 Absolute Nucleated RBC 0.000 Nucleated RBC % (auto) 0.0 Anion Gap 12 Estim Creat Clear Calc 26.8 Estimated GFR 21 Random Glucose 110 Calcium 7.8 L Magnesium 2.5 Assessment and Plan (1) Diarrhea: Status: Acute Plan 54M PMH stage IV mantle cell lymphoma, toxoplasmosis, seizure disorder, chronic hypoxic respiratory failure with tracheostomy, bed bound, non verbal, gtube, presented with fever, vomitting Severe sepsis and acute on chronic hypoxic respiratory failure and acute metabolic encephalopathy due to aspiration pneumonia, ESBL UTI and C diff colitis Continue merepenem day 5, MRSA swab negative discontinued vancomycin IV, continue G-tube fidaxomicin - imodium as needed, IV Flagyl so far tolerating G-tube feeds Acute renal failure on CKD 3 ATN due to sepsis Nephrology following, slowly improving acute hpyokalemia replaced and monitor Toxoplasmosis Continue atovaquone Epilepsy Lacosamide DVT prophylaxis-mechanical heparin subQ Full code reason for continued hospitalization: Severe renal failure Quality Stroke Does the patient have a stroke diagnosis?: No VTE Prior VTE?: No VTE Risk Level:: Medical - moderate - high VTE Device Contraindication: Treatment Not Indicated VTE Drug Contraindication: N/A - Med Ordered
[2025-07-19] MEDS: Potassium Chloride Packet 20 MEQ PACKET 40 MEQ G-TUBE (09:43)
--- NOTE | 2025-07-19 10:21 | MHC.CLN ---
F/U REVIEWED LABS NOTED FEVER STARTED TF YESTERDAY RECOMMEND SLIGHTLY INCREASING TUBE FEEDING OSMOLITE 1.5 TO 60 ML PER HOUR WITH 240ML FREE WATER FLUSHES Q 8 HRS TO PROVIDE 2160KCALS (30KCALS/KG), 90G PROTEIN (1.25G/KG), 2609ML TOTAL WATER FROM FORMULA AND FLUSHES (36ML/KG) TF WILL PROMOTE WOUND HEALING MONITOR TOLERANCE AND LYTES RD CAN BE REACHED VIA TIGER CONNECT DURING OFF HOURS IF NEEDED
--- NOTE | 2025-07-19 10:43 | MHC.CM.PN ---
Per ROUNDS, Patient is not yet medically cleared for dc ( GIB).
[2025-07-19 11:21] LABS: OBS Int Ctl Valid YES; OBS1 NEGATIVE (NEGATIVE)
--- NOTE | 2025-07-19 11:40 | P.PNNP_ITS ---
Subjective Subjective Date of Service: 07/19/25 Interval history: No new events Healthcare proxy at bedside tolerating feeds Renal function improving, WBC trending down Physical Exam 2 Vital Signs: Vital Signs: Last Vital Signs Temp 97.7 F 07/19/25 08:00 Pulse 101 H 07/19/25 08:00 Resp 16 07/19/25 11:29 BP 95/57 L 07/19/25 08:00 Pulse Ox 94 07/19/25 08:00 O2 Del Method Room Air 07/19/25 08:00 O2 Flow Rate 30 07/19/25 04:00 FiO2 30 07/19/25 04:00 BMI result Body Mass Index 24.1 General: Young male in my acute distress, chronic ill appearing Nutritional Appearance: Poor nourished and normal weight Eyes: appearance normal, both eyes and all related structures; Alignment and Position: alignment normal and position normal Neck: No lymphadenopathy, no thyromegaly, tracheostomy site okay Resp: bilateral air entry equal, no added sounds present Cardio: Regular rate, regular rhythm; Heart sounds: S1 normal heart sound present and S2 normal heart sound present GI: soft, nontender, no guarding, no hepatosplenomegaly : bladder normal to inspection, bladder normal to palpation, no renal angle tenderness Skin: no rashes or lesions noted and elasticity normal Neuro: Chronic neuro deficits Objective Data Labs 07/19/25 06:19 07/19/25 06:19 Labs: Laboratory Results - last 24 hr 07/19/25 07/19/25 06:19 09:28 WBC 17.4 H RBC 3.14 L Hgb 9.8 L Hct 29.3 L MCV 93.3 MCH 31.2 MCHC 33.4 RDW 16.1 H Plt Count 270 MPV 9.8 Absolute Nucleated RBC 0.000 Nucleated RBC % (auto) 0.0 Sodium 146 H Potassium 3.3 Chloride 114 H Carbon Dioxide 23 Anion Gap 12 BUN 100 H Creatinine 3.11 H Estim Creat Clear Calc 26.8 Estimated GFR 21 Random Glucose 110 Calcium 7.8 L Magnesium 2.5 Stool Occult Blood NEGATIVE Microbiology Microbiology Results: Microbiology 07/15/25 07:48 Sputum - Expectorated Gram Stain - Final 07/15/25 07:48 Sputum - Expectorated Sputum Culture - Final 07/14/25 Unknown Urine clean catch - Clean Catch Midstream Urine Culture - Final Escherichia coli 07/14/25 18:16 Blood - Venous Blood Culture - Preliminary No growth after 48 hours. 07/14/25 18:17 Blood - Venous Blood Culture - Final Coag negative Staphylococcus Procedures Date of Service Date of Service: 07/19/25 Assessment & Plan Assessment and plan (1) Acute kidney injury superimposed on CKD: Status: Acute (2) Acute hyponatremia: Status: Acute (3) Acute UTI: Status: Acute (4) Aspiration pneumonia: Status: Acute Plan Acute kidney injury: Possibly secondary to ATN currently in recovery phase Baseline creatinine normal, peaked to 5.04, trending down today to 3.11. BUN still high around 100 due to catabolic phase Renal ultrasound showed no obstruction, right kidney 10 cm, left kidney 12 cm Urine cultures growing ESBL UTI, continue meropenem. Continue LR at 125cc/hr to keep fluid balance net even. Acute hypoxemic respiratory failure: Possibly due to aspiration pneumonia Currently on FiO2 30%, 30 L/min slowly improving oxygen requirement since admission, saturations around 97% High-flow oxygen mostly to humidify his airway the chest thick encrustations Acute hypernatremia: Possibly secondary to slight volume depletion Continue LR Time Spent With Patient Time: Total time managing care of this patient today ____ minutes. Progress Note: Quality Stroke Does the patient have a stroke diagnosis?: No
[2025-07-19 15:05] LABS: Hematocrit 29.3 % (42.0-52.0); Hemoglobin 9.8 g/dl (14.0-18.0)
[2025-07-20] VITALS (16 sets, daily range): BP systolic 101–113; BP diastolic 60–71; PULSE 80–99; RESP 14–20; TEMP 36–37.4; O2SAT 92–99
[2025-07-20] MEDS: Lactated Ringers 1,000 ML 125 ML IVCONT (01:35)
[2025-07-20] MEDS: Loperamide HCl Oral Liquid 2 MG/15 ML LIQUID G-TUBE (04:33)
[2025-07-20] MEDS: metroNIDAZOLE/NS 500 MG/100 ML PIGGYBACK 100 MG IV ×3 (04:33→21:25)
--- NOTE | 2025-07-20 07:04 | PC.NURSE ---
Assumed care of pt at 1900. At approx 2000 pt was bladder scanned for 466ml per worklist task. Aleks Mercado MD was notified. Output has been good. Approx 4500ml out in the last 24 hrs. advised this RN to wait to see if pt voids. At approx 2145, pt voided approx 300ml in external catheter. Plan of care ongoing.
[2025-07-20 07:29] LABS: Hematocrit 28.5 % (42.0-52.0); Hemoglobin 9.3 g/dl (14.0-18.0); Mean Corpuscular HGB Conc 32.6 g/dl (31.0-36.0); Mean Corpuscular Hemoglobin 30.7 pg (27.0-33.0); Mean Corpuscular Volume 94.1 fL (80.0-98.0); NRBC Abs Auto 0.000 X10*3/uL (0.0-0.012); NRBC Pct Auto 0.0 /100WBC (0.0-0.2); Platelet Count 257 X10*3/uL (160-400); Red Blood Count 3.03 X10*6/uL (4.60-5.80); White Blood Count 11.6 X10*3/uL (4.8-10.8)
[2025-07-20 07:57] LABS: Alanine Aminotransferase 24 U/L (0-40); Albumin Level 2.6 g/dL (3.5-5.0); Alkaline Phosphatase 157 U/L (39-117); Anion Gap 13 (12-20); Aspartate Amino Transferase 53 U/L (5-37); Blood Urea Nitrogen 79 mg/dL (9-16); Calcium 7.8 mg/dL (8.4-10.2); Carbon Dioxide 25 mmol/L (22-29); Chloride 118 mmol/L (96-108); Creatinine Clr Calc Pharmacy 41.3; Estimated Glomerular Filt Rate 35; Magnesium 2.1 mg/dL (1.6-2.6); Potassium 3.5 mmol/L (3.3-5.1); Sodium 152 mmol/L (135-145); Total Protein 4.6 g/dL (6.5-8.0)
--- NOTE | 2025-07-20 09:04 | HO.PM.IMPN ---
Subjective Subjective Date of Service: 07/20/25 Interval History: tolerating feeds Physical Exam Vital Signs: Vital Signs: Last Vital Signs Temp 99.4 F 07/20/25 08:00 Pulse 99 07/20/25 08:00 Resp 20 07/20/25 08:00 BP 107/64 07/20/25 08:00 Pulse Ox 97 07/20/25 08:00 O2 Del Method T-Piece 07/20/25 08:00 O2 Flow Rate 30 07/20/25 03:45 FiO2 30 07/20/25 03:45 BMI result Body Mass Index 24.1 General: Young male in my acute distress, chronic ill appearing Nutritional Appearance: Poor nourished and normal weight Eyes: appearance normal, both eyes and all related structures; Alignment and Position: alignment normal and position normal Neck: No lymphadenopathy, no thyromegaly, tracheostomy site okay Resp: bilateral air entry equal, no added sounds present Cardio: Regular rate, regular rhythm; Heart sounds: S1 normal heart sound present and S2 normal heart sound present GI: soft, nontender, no guarding, no hepatosplenomegaly : bladder normal to inspection, bladder normal to palpation, no renal angle tenderness Skin: no rashes or lesions noted and elasticity normal Neuro: Chronic neuro deficits Objective Data Active Medications Acetylcysteine (Acetylcysteine 10 % 400 Mg/4 Ml Vial) 600 mg INHALE Q12H PRN PRN Reason: THICK AIRWAY SECRETION Last Admin: 07/16/25 20:12 Dose: 600 mg Documented By: JUDY Albuterol Sulfate (Albuterol Sulfate (0.083%) 2.5 Mg/3 Ml Vial.Neb) 2.5 mg INHALE Q4H PRN PRN Reason: Shortness Of Breath Or Wheezing Last Admin: 07/16/25 20:12 Dose: 2.5 mg Documented By: JUDY Artificial Tears (Artificial Tears 15 Ml Drops) 2 drop EYE-BOTH BID [facility] Last Admin: 07/19/25 21:46 Dose: 2 drop Documented By: ALETHA Artificial Tears (Artificial Tears 15 Ml Drops) 1 drop EYE-BOTH BID PRN PRN Reason: red eyes Atovaquone (Atovaquone 750 Mg/5 Ml Oral.Susp) 750 mg G-TUBE BID [facility] Last Admin: 07/19/25 21:45 Dose: 750 mg Documented By: ALETHA Atropine Sulfate (Atropine Sulfate 1 % Ophth Cady 2 Ml Bottle) 1 drop SUBLINGUAL Q6H PRN PRN Reason: Secretions Baclofen (Baclofen 10 Mg Tablet) 5 mg G-TUBE TID [facility] On Hold: 07/15/25 14:22 Last Admin: 07/15/25 08:45 Dose: 5 mg Documented By: RG Diazepam (Diazepam 10 Mg/2 Ml Cartridge) 5 mg IVPUSH STAT PRN PRN Reason: Seizures Fidaxomicin (Fidaxomicin 200 Mg Tablet) 200 mg G-TUBE Q12H [facility] Last Admin: 07/20/25 04:33 Dose: 200 mg Documented By: ALETHA Fluticasone Propionate (Fluticasone Propionate Nasal 16 Gm [place]) 1 spray NOSTRIL-B Q12H PRN PRN Reason: Congestion Hydromorphone HCl (Hydromorphone Hcl 1 Mg/Ml Syringe) 0.5 mg IVPUSH Q4H PRN; Protocol On Hold: 07/15/25 14:54 PRN Reason: Pain, Severe (Pain Scale 7-10) Metronidazole (Flagyl) 500 mg in 100 mls @ 100 mls/hr IV Q8H [facility] Last Infusion: 07/20/25 05:45 Dose: Infused Documented By: ALETHA Dextrose (D5w) 1,000 mls @ 125 mls/hr IVCONT .Q8H [facility] Albumin Human (Kedbumin 25 %) 100 mls @ 100 mls/hr IV Q6H [facility] Stop: 07/20/25 14:59 Ipratropium [place] (Ipratropium [place] 0.5 Mg/2.5 Ml Solution) 0.5 mg INHALE Q6H PRN PRN Reason: Shortness of Breath Lacosamide (Lacosamide 100 Mg Tablet) 200 mg G-TUBE BID [facility] Last Admin: 07/19/25 21:45 Dose: 200 mg Documented By: ALETHA Lidocaine (Lidocaine 4 % Patch Adh..Patch) 2 patch TRANSDERMA DAILY [facility]; Protocol Last Admin: 07/19/25 08:32 Dose: 2 patch Documented By: BRIGHT Loperamide HCl (Loperamide Hcl Oral Liquid 2 Mg/15 Ml Liquid) 2 mg G-TUBE Q6H PRN PRN Reason: Diarrhea Last Admin: 07/20/25 04:33 Dose: 2 mg Documented By: ALETHA Melatonin (Melatonin 3 Mg Tablet) 6 mg G-TUBE BEDTIME PRN PRN Reason: Insomnia Meropenem (Meropenem 500 Mg Vial) 500 mg IVPUSH Q12H [facility] Last Admin: 07/20/25 06:15 Dose: 500 mg Documented By: ALETHA Metoclopramide HCl (Metoclopramide Hcl 10 Mg/2 Ml Vial) 5 mg IVPUSH Q6H PRN PRN Reason: Nausea and Vomiting Last Admin: 07/15/25 01:12 Dose: 5 mg Documented By: EMILIANO Midodrine (Midodrine Hcl 10 Mg Tablet) 10 mg G-TUBE TID@0900,1300,1700 [facility]; Protocol Last Admin: 07/19/25 16:15 Dose: 10 mg Documented By: BRIGHT Ondansetron HCl (Ondansetron Hcl 4 Mg/2 Ml Vial) 4 mg IVPUSH Q6H [facility] Last Admin: 07/20/25 04:33 Dose: 4 mg Documented By: ALETHA Oxycodone HCl (Oxycodone Hcl Immed Release 5 Mg Tablet) 5 mg G-TUBE Q6H PRN On Hold: 07/15/25 14:55 PRN Reason: Pain, Moderate(Pain Scale 4-6) Pantoprazole Sodium (Pantoprazole Sodium 40 Mg/10 Ml Vial) 40 mg IVPUSH BID@0630,1630 [facility] Last Admin: 07/20/25 06:15 Dose: 40 mg Documented By: ALETHA Scopolamine (Scopolamine 1.5 Mg Patch.Td.3) 1.5 mg TRANSDERMA Q3D [facility] Last Admin: 07/18/25 09:22 Dose: 1.5 mg Documented By: BRIGHT Sodium Chloride (0.9 % Sodium Chloride Flush 3 Ml Syringe) 3 ml IVFLUSH QSHIFT [facility] Last Admin: 07/20/25 01:28 Dose: Not Given Documented By: ALETHA Non-Admin Reason: IV Running Sucralfate (Sucralfate 1 Gm Tablet) 1 gm PO BID@1300,1700 [facility] Last Admin: 07/19/25 16:15 Dose: 1 gm Documented By: BRIGHT Labs 07/20/25 06:39 07/20/25 06:39 Labs: Laboratory Results - last 24 hr 07/19/25 07/20/25 09:28 06:39 MCV 94.1 MCH 30.7 MCHC 32.6 RDW 16.5 H Plt Count 257 MPV 9.9 Absolute Nucleated RBC 0.000 Nucleated RBC % (auto) 0.0 Anion Gap 13 Estim Creat Clear Calc 41.3 Estimated GFR 35 Random Glucose 135 H Calcium 7.8 L Magnesium 2.1 Total Bilirubin 0.6 Direct Bilirubin 0.3 AST 53 H ALT 24 Alkaline Phosphatase 157 H Total Protein 4.6 L Albumin 2.6 L Stool Occult Blood NEGATIVE Microbiology Microbiology Results: Microbiology 07/14/25 18:16 Blood Culture - Final Blood - Venous No growth after 5 days. Assessment and Plan (1) Diarrhea: Status: Acute Plan 54M PMH stage IV mantle cell lymphoma, toxoplasmosis, seizure disorder, chronic hypoxic respiratory failure with tracheostomy, bed bound, non verbal, gtube, presented with fever, vomitting Severe sepsis and acute on chronic hypoxic respiratory failure and acute metabolic encephalopathy due to aspiration pneumonia, ESBL UTI and C diff colitis Continue merepenem day 6, MRSA swab negative discontinued vancomycin IV, continue G-tube fidaxomicin - imodium as needed, IV Flagyl so far tolerating G-tube feeds Acute renal failure on CKD 3 ATN due to sepsis Nephrology following, slowly improving, continue to monitor acute hypokalemia replaced and monitor acute hypernatremia d5w, increase free water via gtube, monitor Toxoplasmosis Continue atovaquone Epilepsy Lacosamide DVT prophylaxis-mechanical due to episode of blood in stool Full code reason for continued hospitalization: hypernatremia Quality Stroke Does the patient have a stroke diagnosis?: No VTE Prior VTE?: No VTE Risk Level:: Medical - moderate - high VTE Device Contraindication: Treatment Not Indicated VTE Drug Contraindication: N/A - Med Ordered
--- NOTE | 2025-07-20 09:42 | MHC.CLN ---
F/U SODIUM THIS FO=255. MD INCREASED FREE WATER FLUSH TO 300 ML Q 4 HOURS. TOTAL FREE WATER FROM FORMULA 1097 ML PLUS 1800 ML FLUSHES GIVES 2897 ML TOTAL FREE WATER FROM FORMULA AND FLUSHES. CONTINUE TO MONITOR LABS AND TF TOLERANCE.
[2025-07-20] MEDS: 0.9 % Sodium Chloride Flush 3 ML SYRINGE IVFLUSH ×2 (10:10→16:14)
[2025-07-20] MEDS: Potassium Chloride Packet 20 MEQ PACKET 40 MEQ G-TUBE (10:12)
[2025-07-20] MEDS: Albumin Human 25 % 100 ML IV ×2 (10:15→14:14)
[2025-07-20] MEDS: Artificial Tears 15 ML DROPS 2 DROP EYE-BOTH (10:31)
--- NOTE | 2025-07-20 12:30 | P.PNNP_ITS ---
Subjective Subjective Date of Service: 07/20/25 Interval history: White count and renal function both improving, sodium increased to 152 Physical Exam 2 Vital Signs: Vital Signs: Last Vital Signs Temp 98.9 F 07/20/25 12:00 Pulse 88 07/20/25 12:00 Resp 16 07/20/25 12:00 BP 104/68 07/20/25 12:00 Pulse Ox 96 07/20/25 12:00 O2 Del Method T-Piece 07/20/25 12:00 O2 Flow Rate 30 07/20/25 03:45 FiO2 30 07/20/25 03:45 BMI result Body Mass Index 24.1 General: In somewhat acute distress, ill appearing Nutritional Appearance: Poorly nourished, normal weight Eyes: appearance normal, both eyes and all related structures; Alignment and Position: alignment normal and position normal Neck: No lymphadenopathy, no thyromegaly Resp: bilateral air entry equal, bilateral crackles present Cardio: Regular rate, regular rhythm; Heart sounds: S1 normal heart sound present and S2 normal heart sound present GI: soft, nontender, no guarding, no hepatosplenomegaly : bladder normal to inspection, bladder normal to palpation, no renal angle tenderness Skin: no rashes or lesions noted and elasticity normal Neuro: Chronic neuro deficits present Objective Data Labs 07/20/25 06:39 07/20/25 06:39 Labs: Laboratory Results - last 24 hr 07/18/25 07/19/25 07/20/25 05:29 14:48 06:39 WBC 11.6 H RBC 3.03 L Hgb 9.8 L 9.3 L Hct 29.3 L 28.5 L MCV 94.1 MCH 30.7 MCHC 32.6 RDW 16.5 H Plt Count 257 MPV 9.9 Absolute Nucleated RBC 0.000 Nucleated RBC % (auto) 0.0 Sodium 152 H Potassium 3.5 Chloride 118 H Carbon Dioxide 25 Anion Gap 13 BUN 79 H Creatinine 4.56 H* 2.02 H Estim Creat Clear Calc 41.3 Estimated GFR 35 Random Glucose 135 H Calcium 7.8 L Magnesium 2.1 Total Bilirubin 0.6 Direct Bilirubin 0.3 AST 53 H ALT 24 Alkaline Phosphatase 157 H Total Protein 4.6 L Albumin 2.6 L Microbiology Microbiology Results: Microbiology 07/14/25 18:16 Blood - Venous Blood Culture - Final No growth after 5 days. 07/15/25 07:48 Sputum - Expectorated Gram Stain - Final 07/15/25 07:48 Sputum - Expectorated Sputum Culture - Final 07/14/25 Unknown Urine clean catch - Clean Catch Midstream Urine Culture - Final Escherichia coli 07/14/25 18:17 Blood - Venous Blood Culture - Final Coag negative Staphylococcus Procedures Date of Service Date of Service: 07/20/25 Assessment & Plan Assessment and plan (1) Acute hyponatremia: Status: Acute (2) Acute kidney injury superimposed on CKD: Status: Acute (3) Aspiration pneumonia: Status: Acute Plan Acute kidney injury: Possibly secondary to ATN currently in recovery phase Baseline creatinine normal, peaked to 5.04, down to 2.02 this morning, currently in a downward trend. Renal ultrasound showed no obstruction, right kidney 10 cm, left kidney 12 cm Urine cultures growing ESBL UTI, continue meropenem. Hypernatremia: Agree with fluids changed to D5 water at 0125 cc/hour Acute hypoxemic respiratory failure: Possibly due to aspiration pneumonia Currently on FiO2 30%, 30 L/min slowly improving oxygen requirement since admission, saturations around 97% High-flow oxygen mostly to humidify his airway the chest thick encrustations Time Spent With Patient Time: Total time managing care of this patient today ____ minutes. Progress Note: Quality Stroke Does the patient have a stroke diagnosis?: No
[2025-07-20] MEDS: Lidocaine 4 % Patch ADH..PATCH 2 PATCH TRANSDERMA (14:03)
--- NOTE | 2025-07-20 21:04 | PC.NURSE ---
difficult to time bladder scans due to incontinence. bladder scans were both low 300's. patient voiding large amt, saturated pads x2 and large amounts by male salomonwick. abdomen with some distention and semifirm, Gtube burped x 3 with moderate amount gas release and reduced firmness of abdomen. He demonstrates no s/s discomfort or distress. Extensive mouth care provided. yankauer suction of mouth. pt with large amount thick secretions clear to pale yellow around trach. tracheal suction for loose clear to mildly thick clear to pale yellow. spare trach, ambu bag and suction at bedside, HOB maintained at 30* for skin/respiratory/feeding tube. R ishium old wound with one small point of bleeding. Triad applied to large area of buttocks, lower back for protection from urine/loose stool.
[2025-07-20] MEDS: Artificial Tears 15 ML DROPS 1 DROP EYE-BOTH (21:26)
[2025-07-21 03:00] VITALS: RESP 22; O2SAT 98
[2025-07-21 03:14] VITALS: BP 100/57; PULSE 88; RESP 18; TEMP 36.4; O2SAT 97
[2025-07-21] MEDS: metroNIDAZOLE/NS 500 MG/100 ML PIGGYBACK 100 MG IV ×2 (03:31→12:13)
[2025-07-21 04:41] VITALS: PULSE 87; RESP 18; O2SAT 97
[2025-07-21 06:47] LABS: Hematocrit 29.4 % (42.0-52.0); Hemoglobin 9.5 g/dl (14.0-18.0); Mean Corpuscular HGB Conc 32.3 g/dl (31.0-36.0); Mean Corpuscular Hemoglobin 31.1 pg (27.0-33.0); Mean Corpuscular Volume 96.4 fL (80.0-98.0); NRBC Abs Auto 0.000 X10*3/uL (0.0-0.012); NRBC Pct Auto 0.0 /100WBC (0.0-0.2); Platelet Count 222 X10*3/uL (160-400); Red Blood Count 3.05 X10*6/uL (4.60-5.80); White Blood Count 10.8 X10*3/uL (4.8-10.8)
[2025-07-21 07:03] LABS: Anion Gap 11 (12-20); Blood Urea Nitrogen 56 mg/dL (9-16); Calcium 7.9 mg/dL (8.4-10.2); Carbon Dioxide 26 mmol/L (22-29); Chloride 115 mmol/L (96-108); Creatinine Clr Calc Pharmacy 59.7; Estimated Glomerular Filt Rate 53; Potassium 3.5 mmol/L (3.3-5.1); Sodium 148 mmol/L (135-145)
[2025-07-21 07:35] VITALS: BP 127/84; PULSE 89; RESP 20; TEMP 36.5; O2SAT 98
[2025-07-21] MEDS: 0.9 % Sodium Chloride Flush 3 ML SYRINGE IVFLUSH (08:43)
[2025-07-21] MEDS: Lidocaine 4 % Patch ADH..PATCH 2 PATCH TRANSDERMA (08:44)
[2025-07-21 08:53] VITALS: BP 129/80
[2025-07-21] MEDS: Artificial Tears 15 ML DROPS 2 DROP EYE-BOTH (09:57)
--- NOTE | 2025-07-21 10:31 | P.PNIM_ITS ---
Subjective Subjective Date of Service: 07/21/25 Interval History: tolerating feeds Physical Exam 2 Vital Signs: Vital Signs: Last Vital Signs Temp 97.7 F 07/21/25 07:35 Pulse 89 07/21/25 07:35 Resp 20 07/21/25 07:35 BP 129/80 07/21/25 08:53 Pulse Ox 98 07/21/25 07:35 O2 Del Method Trach Collar 07/21/25 07:35 O2 Flow Rate 30 07/20/25 20:00 FiO2 30.9 07/21/25 03:14 BMI result Body Mass Index 24.1 General: In somewhat acute distress, ill appearing Nutritional Appearance: Poorly nourished, normal weight Eyes: appearance normal, both eyes and all related structures; Alignment and Position: alignment normal and position normal Neck: No lymphadenopathy, no thyromegaly Resp: bilateral air entry equal, bilateral crackles present Cardio: Regular rate, regular rhythm; Heart sounds: S1 normal heart sound present and S2 normal heart sound present GI: soft, nontender, no guarding, no hepatosplenomegaly : bladder normal to inspection, bladder normal to palpation, no renal angle tenderness Skin: no rashes or lesions noted and elasticity normal Neuro: Chronic neuro deficits present Objective Data Active Medications Acetylcysteine (Acetylcysteine 10 % 400 Mg/4 Ml Vial) 600 mg INHALE Q12H PRN PRN Reason: THICK AIRWAY SECRETION Last Admin: 07/16/25 20:12 Dose: 600 mg Documented By: JUDY Albuterol Sulfate (Albuterol Sulfate (0.083%) 2.5 Mg/3 Ml Vial.Neb) 2.5 mg INHALE Q4H PRN PRN Reason: Shortness Of Breath Or Wheezing Last Admin: 07/16/25 20:12 Dose: 2.5 mg Documented By: JUDY Artificial Tears (Artificial Tears 15 Ml Drops) 2 drop EYE-BOTH BID [facility] Last Admin: 07/21/25 09:57 Dose: 2 drop Documented By: SHEN Artificial Tears (Artificial Tears 15 Ml Drops) 1 drop EYE-BOTH BID PRN PRN Reason: red eyes Last Admin: 07/20/25 21:26 Dose: 1 drop Documented By: INO Atovaquone (Atovaquone 750 Mg/5 Ml Oral.Susp) 750 mg G-TUBE BID [facility] Last Admin: 07/21/25 08:43 Dose: 750 mg Documented By: SHEN Atropine Sulfate (Atropine Sulfate 1 % Ophth Cady 2 Ml Bottle) 1 drop SUBLINGUAL Q6H PRN PRN Reason: Secretions Baclofen (Baclofen 10 Mg Tablet) 5 mg G-TUBE TID [facility] On Hold: 07/15/25 14:22 Last Admin: 07/15/25 08:45 Dose: 5 mg Documented By: RG Diazepam (Diazepam 10 Mg/2 Ml Cartridge) 5 mg IVPUSH STAT PRN PRN Reason: Seizures Fidaxomicin (Fidaxomicin 200 Mg Tablet) 200 mg G-TUBE Q12H [facility] Last Admin: 07/21/25 03:31 Dose: 200 mg Documented By: INO Fluticasone Propionate (Fluticasone Propionate Nasal 16 Gm Tie Siding) 1 spray NOSTRIL-B Q12H PRN PRN Reason: Congestion Hydromorphone HCl (Hydromorphone Hcl 1 Mg/Ml Syringe) 0.5 mg IVPUSH Q4H PRN; Protocol On Hold: 07/15/25 14:54 PRN Reason: Pain, Severe (Pain Scale 7-10) Metronidazole (Flagyl) 500 mg in 100 mls @ 100 mls/hr IV Q8H [facility] Last Infusion: 07/21/25 05:20 Dose: Infused Documented By: INO Dextrose (D5w) 1,000 mls @ 125 mls/hr IVCONT .Q8H [facility] Last Admin: 07/21/25 09:03 Dose: Not Given Documented By: SHEN Non-Admin Reason: IV Running Ipratropium [place] (Ipratropium [place] 0.5 Mg/2.5 Ml Solution) 0.5 mg INHALE Q6H PRN PRN Reason: Shortness of Breath Lacosamide (Lacosamide 100 Mg Tablet) 200 mg G-TUBE BID [facility] Last Admin: 07/21/25 08:43 Dose: 200 mg Documented By: SHEN Lidocaine (Lidocaine 4 % Patch Adh..Patch) 2 patch TRANSDERMA DAILY [facility]; Protocol Last Admin: 07/21/25 08:44 Dose: 2 patch Documented By: SHEN Loperamide HCl (Loperamide Hcl Oral Liquid 2 Mg/15 Ml Liquid) 2 mg G-TUBE Q6H PRN PRN Reason: Diarrhea Last Admin: 07/20/25 04:33 Dose: 2 mg Documented By: ALETHA Melatonin (Melatonin 3 Mg Tablet) 6 mg G-TUBE BEDTIME PRN PRN Reason: Insomnia Meropenem (Meropenem 1 Gm Vial) 1 gm IVPUSH Q12H [facility] Last Admin: 07/21/25 05:30 Dose: 1 gm Documented By: INO Metoclopramide HCl (Metoclopramide Hcl 10 Mg/2 Ml Vial) 5 mg IVPUSH Q6H PRN PRN Reason: Nausea and Vomiting Last Admin: 07/15/25 01:12 Dose: 5 mg Documented By: EMILIANO Midodrine (Midodrine Hcl 10 Mg Tablet) 10 mg G-TUBE TID@0900,1300,1700 [facility]; Protocol Last Admin: 07/21/25 08:53 Dose: Not Given Documented By: SHEN Non-Admin Reason: Elevated Blood Pressure Omeprazole (Omeprazole/Na Bicarb Oral Susp 20 Mg/10 Ml Ud Cup) 40 mg G-TUBE DAILY@0630 [facility] Ondansetron HCl (Ondansetron Hcl 4 Mg/2 Ml Vial) 4 mg IVPUSH Q6H [facility] Last Admin: 07/21/25 08:43 Dose: 4 mg Documented By: SHEN Oxycodone HCl (Oxycodone Hcl Immed Release 5 Mg Tablet) 5 mg G-TUBE Q6H PRN On Hold: 07/15/25 14:55 PRN Reason: Pain, Moderate(Pain Scale 4-6) Pantoprazole Sodium (Pantoprazole Sodium 40 Mg/10 Ml Vial) 40 mg IVPUSH BID@0630,1630 [facility] Last Admin: 07/21/25 05:30 Dose: 40 mg Documented By: INO Scopolamine (Scopolamine 1.5 Mg Patch.Td.3) 1.5 mg TRANSDERMA Q3D [facility] Last Admin: 07/21/25 09:57 Dose: 1.5 mg Documented By: SHEN Sodium Chloride (0.9 % Sodium Chloride Flush 3 Ml Syringe) 3 ml IVFLUSH QSHIFT [facility] Last Admin: 07/21/25 08:43 Dose: 3 ml Documented By: SHEN Sucralfate (Sucralfate 1 Gm Tablet) 1 gm PO BID@1300,1700 RACHELL Last Admin: 07/20/25 19:43 Dose: 1 gm Documented By: BLAINE Labs 07/21/25 06:12 07/21/25 06:12 Labs: Laboratory Results - last 24 hr 07/21/25 06:12 MCV 96.4 MCH 31.1 MCHC 32.3 RDW 16.8 H Plt Count 222 MPV 10.2 Absolute Nucleated RBC 0.000 Nucleated RBC % (auto) 0.0 Anion Gap 11 L Estim Creat Clear Calc 59.7 Estimated GFR 53 Random Glucose 153 H Calcium 7.9 L Assessment and Plan (1) Diarrhea: Status: Acute Plan 54M PMH stage IV mantle cell lymphoma, toxoplasmosis, seizure disorder, chronic hypoxic respiratory failure with tracheostomy, bed bound, non verbal, gtube, presented with fever, vomitting Severe sepsis and acute on chronic hypoxic respiratory failure and acute metabolic encephalopathy due to aspiration pneumonia, ESBL UTI and C diff colitis Continue merepenem day 7, MRSA swab negative discontinued vancomycin IV, continue G-tube fidaxomicin - imodium as needed, IV Flagyl tolerating G-tube feeds Acute renal failure on CKD 3 ATN due to sepsis Nephrology following, much improved acute hypokalemia replaced and monitor acute hypernatremia d5w, increased free water via gtube, monitor Toxoplasmosis Continue atovaquone Epilepsy Lacosamide DVT prophylaxis-mechanical due to episode of blood in stool Full code reason for continued hospitalization: dispo planning Quality Stroke Does the patient have a stroke diagnosis?: No VTE Prior VTE?: No VTE Risk Level:: Medical - moderate - high VTE Device Contraindication: Treatment Not Indicated VTE Drug Contraindication: N/A - Med Ordered
--- NOTE | 2025-07-21 10:46 | PM.DS ---
DS: Providers Provider Date of Service: 07/21/25 Date of admission: 07/14/25 22:36 Date of discharge: 07/21/25 Primary care physician: Florencia Delgado NP Consults: 07/14/25 17:59 Consult to Infectious Diseases Routine Consulting Provider: [facility] Reason for consultation: abx Has provider been notified: No 07/14/25 23:38 Consult to Wound Care Routine Consulting Provider: [facility] Reason for consultation: sacral wounds, Skin tear to base of penis 07/14/25 23:52 Consult to Nephrology Routine Consulting Provider: [facility] Reason for consultation: TAMMY on CKD 07/15/25 07:51 Consult to Gastroenterology Routine Consulting Provider: [facility] Reason for consultation: Aspiration , suction blackish material Has provider been notified: No 07/15/25 07:57 Consult to Pulmonology Routine Consulting Provider: [facility] Reason for consultation: Hypoxemic resp failure Has provider been notified: No 07/15/25 09:04 Consult to Critical Care Routine Consulting Provider: Steve Franz Reason for consultation: Level of care Has provider been notified: No 07/15/25 15:41 Consult to Infectious Diseases Routine Consulting Provider: [facility] Reason for consultation: cdiff rececuent Has provider been notified: No DS: Diagnosis Discharge Diagnosis (1) Diarrhea: Status: Acute DS: Summary Hospital Course Hospital Course: from initial hpi: 54-year-old Italian-speaking male with a past medical history significant for stage IV mantle cell lymphoma (currently in remission), toxoplasmosis with recurrence and now on suppressive therapy, seizure disorder, acute on chronic respiratory failure with tracheostomy, CKD, normocytic anemia, GERD, G-tube dependent, history osteomyelitis and history of C diff colitis, who presented to the ED due to fever, vomiting and hypoxia. The patient was reportedly up to 104 degrees F with vomiting for the past 2 days and purulent urine output. He also has reportedly had diarrhea with a history of recent C diff. the patient is unable to provide any history at this time due to metabolic encephalopathy. He is currently vomiting through his trach tube while evaluated bedside with RT present suctioning. hospital course: Patient was admitted for severe sepsis and acute on chronic hypoxic respiratory failure and acute metabolic encephalopathy due to aspiration pneumonia, ESBL UTI and C diff colitis. He was treated with course of IV meropenem for the ESBL UTI and aspiration pneumonia. Was initially given IV vancomycin for possible MRSA pneumonia but given negative MRSA swab vancomycin was discontinued. For C diff colitis was treated with fidaxomicin and he will continue 7 more days on discharge. Diarrhea eventually resolved. Course was complicated by acute renal failure due to ATN from sepsis and diarrhea. With hydration and treatment of sepsis creatinine slowly improved. At time of discharge it is 1.4. Acute hypokalemia was replaced. Course complicated by acute hypernatremia was treated with D5W and free water increased via G-tube. For history of toxoplasmosis was continued on atovaquone. For epilepsy continued on lacosamide. Patient is medically stable and he will be discharged back to long-term care. Time Attestation Discharge Coordination Time (in mins): 32 Quality: Safe Use of Opioids Does Pt have an Active Cancer Diagnosis on the Problem List?: No Quality: Stroke Does the patient have a stroke diagnosis?: No Physical Exam Vital Signs: Vital Signs: Last Vital Signs Temp 97.7 F 07/21/25 07:35 Pulse 89 07/21/25 07:35 Resp 20 07/21/25 07:35 BP 129/80 07/21/25 08:53 Pulse Ox 98 07/21/25 07:35 O2 Del Method Trach Collar 07/21/25 07:35 O2 Flow Rate 30 07/20/25 20:00 FiO2 30.9 07/21/25 03:14 BMI result Body Mass Index 24.1 DS: Data Data Completed and Pending Completed studies during hospitalization [Text1]: Procedures Change Tracheostomy Device in Trachea, External Approach (01/31/23) Drainage of Left Knee Joint, Open Approach (09/22/23) Drainage of Left Knee Joint, Percutaneous Approach (09/22/23) Excision of Lower Esophagus, Via Natural or Artificial Opening Endoscopic, Diagnostic (01/31/23) Insertion of Infusion Device into Right Basilic Vein, Percutaneous Approach (09/22/23) Insertion of Infusion Device into Superior Vena Cava, Percutaneous Approach (01/02/23) Ultrasonography of Superior Vena Cava, Guidance (01/02/23) Labs on day of discharge: Laboratory Results - last 24 hr 07/21/25 06:12 WBC 10.8 RBC 3.05 L Hgb 9.5 L Hct 29.4 L MCV 96.4 MCH 31.1 MCHC 32.3 RDW 16.8 H Plt Count 222 MPV 10.2 Absolute Nucleated RBC 0.000 Nucleated RBC % (auto) 0.0 Sodium 148 H Potassium 3.5 Chloride 115 H Carbon Dioxide 26 Anion Gap 11 L BUN 56 H Creatinine 1.40 Estim Creat Clear Calc 59.7 Estimated GFR 53 Random Glucose 153 H Calcium 7.9 L Discharge Plan Discharge Anticipated Discharge Date/Time: 07/21/25 10:34 Patient Disposition: Xfer [facility] Discharge Diagnosis: tammy, uti, cdif Referrals: Florencia Delgado, FINANCIAL SPECIALIST [Primary Care Provider, Internal Medicine] - 1 Week Discharge Medications: New loperamide [Imodium A-D] 1 mg/7.5 mL Liquid 2 mg G-tube Q6H PRN (Reason: Diarrhea) Qty: 0 0RF fidaxomicin [Dificid] 200 mg Tablet 200 mg G-tube Q12H 7 Days Qty: 0 0RF Konvomep 2-84 mg/mL Suspension For Reconstitution 10 ml G-tube DAILY@0630 Qty: 300 0RF Continued leucovorin calcium 25 mg Tablet 25 mg feeding tube BEDTIME melatonin 3 mg Tablet 3 mg feeding tube BEDTIME finasteride 5 mg Tablet 5 mg feeding tube BEDTIME atovaquone 750 mg/5 mL Suspension 750 mg feeding tube BID Rx Instructions: must administer with food, preferably a high-fat meal lacosamide 200 mg Tablet 200 mg feeding tube BID cholecalciferol (vitamin D3) 1,250 mcg (50,000 unit) Tablet 1,250 mcg feeding tube QMONTH Rx Instructions: MONTHLY ON DAY 15 OF THE MONTH acetaminophen 325 mg Tablet 650 mg feeding tube Q4H PRN (Reason: Fever Or Pain) Rx Instructions: Fever >100.5 albuterol sulfate 2.5 mg /3 mL (0.083 %) Solution For Nebulization 2.5 mg INHALATION Q4H PRN (Reason: Shortness Of Breath Or Wheezing) ondansetron HCl 2 mg/mL Solution 4 mg IM Q4H PRN (Reason: Nausea And Vomiting) Rx Instructions: IF NO RELIEF FROM PO lorazepam 0.5 mg Tablet 0.5 mg feeding tube Q8H PRN (Reason: Anxiety) magnesium hydroxide [Milk of Magnesia] 400 mg/5 mL Suspension 30 ml feeding tube DAILY PRN (Reason: Constipation) Rx Instructions: If no BM after 3 days - give on the tenth shift x1 dose bisacodyl 10 mg Suppository 10 mg DE DAILY PRN (Reason: Constipation if no BM after 8 hours following MoM) Rx Instructions: If no BM after 8 hours following MOM X1 dose Fleet Enema 19-7 gram/118 mL Enema 118 ml DE DAILY PRN (Reason: Constipation) Rx Instructions: If No BM in 1 hour after Bisacodyl supp X1 dose scopolamine base 1 mg over 3 days Patch 3 Day 1 patch TRANSDERMAL Q3D guaifenesin 200 mg/5 mL Liquid 200 mg feeding tube Q4H PRN (Reason: Cough) multivitamin Tablet 1 tab feeding tube DAILY pyrimethamine 25 mg Tablet 50 mg feeding tube BEDTIME sucralfate 1 gram Tablet 1 g PO BID@1300,1700 Rx Instructions: Give 1 hour after feedings finish and 1 hour before staring feedings carboxymethylcellulose sodium 0.25 % Drops 2 drp OPHTHALMIC (EYE) BID lidocaine 4 % Adhesive Patch,Medicated 2 patch TOPICAL DAILY Rx Instructions: BILAT SHOULDER PAIN acetaminophen 650 mg Suppository 650 mg DE Q6H PRN (Reason: Fever Or Pain) famotidine 20 mg Tablet 20 mg PO BID esomeprazole magnesium 40 mg Capsule,Delayed Release(Dr/Ec) 40 mg feeding tube DAILY atropine 1 % Drops 1 drp sublingual Q6H PRN (Reason: Secretions) fluticasone propionate 50 mcg/actuation [place],Suspension 1 spray INTRANASAL Q12H PRN (Reason: Congestion) Rx Instructions: administer into each nostril ipratropium bromide 0.02 % Solution 2.5 ml INHALATION Q6H PRN (Reason: Shortness Of Breath) linaclotide 145 mcg Capsule 145 mcg PO DAILY acetylcysteine 200 mg/mL (20 %) Solution 600 mg INHALATION Q12H PRN (Reason: THICK AIRWAY SECRETION) ibuprofen 600 mg Tablet 600 mg feeding tube Q8H PRN (Reason: FEVER/PAIN UNRESPONSIVE TO APAP) simethicone 80 mg Tablet,Chewable 80 mg feeding tube Q6H midodrine 5 mg Tablet 10 mg feeding tube Q8H Rx Instructions: do not give last dose of day after 6PM or within 4 hrs of bedtime HOLF IF SBP >120 mmHg ondansetron HCl 4 mg Tablet 4 mg PO Q4H PRN (Reason: no relief after 1st dose of zofran) carboxymethylcellulose sodium 0.25 % Drops 1 drp OPHTHALMIC (EYE) BID PRN (Reason: red eyes) Eucerin Advanced Repair Cream 1 appl TOPICAL DAILY Discontinued sennosides-docusate sodium [Senna with Docusate Sodium] 8.6-50 mg Tablet 2 tab-cap PO BID@0900,1700 Rx Instructions: G-TUBE tramadol 50 mg Tablet 50 mg feeding tube Q4H PRN (Reason: Pain (Scale Score 1-3)) oxycodone 5 mg Tablet 5 mg feeding tube Q6H PRN (Reason: Pain (Scale Score 7-10)) morphine 10 mg/5 mL Solution 5 mg feeding tube DAILY baclofen 5 mg Tablet 5 mg feeding tube TID naloxone 0.4 mg/mL Solution 0.4 mg SUBCUT Q2M PRN (Reason: Opioid Overdose) Rx Instructions: NTExceed 10 mg total dose/episode polyethylene glycol 3350 [Miralax] 17 gram Powder In Packet 17 g feeding tube Q48H Rx Instructions: mix in 8 oz of fluid ( not mix with starch-thickened liquids) Diet: tube feeds Activity on Discharge: As tolerated Stand Alone Forms: Patient Portal Discharge page Print Language: Unable To Collect Care Plan Goals: recovery Health Concerns: cdif, tammy, uti Plan of Treatment: 7 more days fidoximicin Assessment: see above
[2025-07-21 11:55] VITALS: BP 113/70; PULSE 87; RESP 20; TEMP 36.3; O2SAT 97
--- NOTE | 2025-07-21 12:42 | MHC.CM.PN ---
Addendum entered by Vera John 07/21/25 12:52: DISCHARGE SUMMARY FAXED TO [facility], YURIDIA. Original Note: PATIENT IS MEDICALLY CLEARED FOR DISCHARGE AND WILL RETURN TO [facility] TODAY VIA BLS/[facility]. [facility] CONTACTED AND AWARE OF PLAN. HOSPITALIST SPOKE TO [facility] PROVIDER AND HAS BEEN ACCEPTED BACK TO THEIR FACILITY. HCP/LUCAS WAS CALLED AND NOTIFIED OF THE DISCHARGE.
== END 2025-07-21 15:19 | DRG 720 ==
LOC: HO.ED 18:27 → HO.EDOVER 22:41 → HO.IMC 07-16 15:31
PROVIDERS: Internal Medicine; Internal Medicine Critical Care Medicine; Admitting Provider Physician Assistant; Emergency Provider Emergency Medicine Emergency Medical Services; PCP Nurse Practitioner Adult Health; Visit Provider Internal Medicine
DX: A41.9 Sepsis, unspecified organism (principal); J96.21 Acute and chronic respiratory failure with hypoxia; N17.0 Acute kidney failure with tubular necrosis; J69.0 Pneumonitis due to inhalation of food and vomit; G93.41 Metabolic encephalopathy; A04.72 Enterocolitis due to Clostridium difficile, not specified as recurrent; I95.89 Other hypotension; B58.9 Toxoplasmosis, unspecified; C83.1A Mantle cell lymphoma, in remission; D63.1 Anemia in chronic kidney disease; G40.909 Epilepsy, unspecified, not intractable, without status epilepticus; E86.1 Hypovolemia; N39.0 Urinary tract infection, site not specified; E87.1 Hypo-osmolality and hyponatremia; K92.0 Hematemesis; K21.9 Gastro-esophageal reflux disease without esophagitis; E87.0 Hyperosmolality and hypernatremia; N18.30 Chronic kidney disease, stage 3 unspecified; R65.20 Severe sepsis without septic shock; B96.20 Unspecified Escherichia coli [E. coli] as the cause of diseases classified elsewhere; Z16.12 Extended spectrum beta lactamase (ESBL) resistance; Z74.01 Bed confinement status; Z93.1 Gastrostomy status; Z93.0 Tracheostomy status; Z99.81 Dependence on supplemental oxygen; Z79.899 Other long term (current) drug therapy
CPT/HCPCS: 36415; 36600; 70450; 71045; 71250; 74176; 76775; 80048; 80053; 80076; 81001; 82272; 82550; 82803; 83605; 83735; 84484; 85007; 85014; 85018; 85027; 86850; 86900; 86901; 87040; 87070; 87086; 87088; 87147; 87186; 87205; 87324; 87493; 87507; 87637; 87640; 87641; 93005; 94640; 94799; 99285; J0131; J1335; J1644; J1836; J1953; J2185; J2270; J2405; J2470; J2765; J3374; J7120; P9047

== ENCOUNTER → 2025-07-14 18:05 | Outpatient (BNV) | payer MEDICAID, SELFPAY | PROVIDERS: Emergency Provider Emergency Medicine Emergency Medical Services; PCP Nurse Practitioner Adult Health; Visit Provider Student in an Organized Health Care Education/Training Program | DX: K63.89 Other specified diseases of intestine (principal); J90 Pleural effusion, not elsewhere classified; J98.11 Atelectasis; R91.8 Other nonspecific abnormal finding of lung field; G93.89 Other specified disorders of brain; R06.02 Shortness of breath | CPT/HCPCS: 70450; 71045; 71250; 74176 ==

== ENCOUNTER 2025-07-14 22:36 | Outpatient (BNV) | payer MEDICAID, SELFPAY | END 2025-07-15 12:46 | PROVIDERS: Admitting Provider Physician Assistant; Emergency Provider Emergency Medicine Emergency Medical Services; PCP Nurse Practitioner Adult Health; Visit Provider Radiology Diagnostic Radiology | DX: N17.9 Acute kidney failure, unspecified (principal) | CPT/HCPCS: 76775 ==

== ENCOUNTER 2025-07-14 22:36 | Outpatient (BNV) | payer MEDICAID, SELFPAY | END 2025-07-14 23:41 | PROVIDERS: Admitting Provider Physician Assistant; Emergency Provider Emergency Medicine Emergency Medical Services; PCP Nurse Practitioner Adult Health; Visit Provider Internal Medicine | DX: R00.0 Tachycardia, unspecified (principal) | CPT/HCPCS: 93010 ==

== ENCOUNTER → 2025-07-14 22:36 | Outpatient (BNV) | payer MEDICAID, SELFPAY | PROVIDERS: Admitting Provider Physician Assistant; Emergency Provider Emergency Medicine Emergency Medical Services; PCP Nurse Practitioner Adult Health; Visit Provider Internal Medicine | DX: R19.7 Diarrhea, unspecified (principal); B58.9 Toxoplasmosis, unspecified; J96.21 Acute and chronic respiratory failure with hypoxia | CPT/HCPCS: 99222 ==

== ENCOUNTER → 2025-07-14 22:36 | Outpatient (BNV) | payer MEDICAID, SELFPAY | PROVIDERS: Admitting Provider Physician Assistant; Emergency Provider Emergency Medicine Emergency Medical Services; PCP Nurse Practitioner Adult Health; Visit Provider Internal Medicine | DX: R19.7 Diarrhea, unspecified (principal) | CPT/HCPCS: 99223; 99232; 99233 ==

== ENCOUNTER → 2025-07-14 22:36 | Outpatient (BNV) | payer MEDICAID, SELFPAY | PROVIDERS: Admitting Provider Physician Assistant; Emergency Provider Emergency Medicine Emergency Medical Services; PCP Nurse Practitioner Adult Health; Visit Provider Internal Medicine Critical Care Medicine | DX: N17.9 Acute kidney failure, unspecified (principal); N18.9 Chronic kidney disease, unspecified; J96.21 Acute and chronic respiratory failure with hypoxia; E87.1 Hypo-osmolality and hyponatremia | CPT/HCPCS: 99223; 99233 ==

== ENCOUNTER → 2025-07-14 22:36 | Outpatient (BNV) | payer MEDICAID, SELFPAY | PROVIDERS: Admitting Provider Physician Assistant; Emergency Provider Emergency Medicine Emergency Medical Services; PCP Nurse Practitioner Adult Health; Visit Provider Hospitalist | DX: J96.21 Acute and chronic respiratory failure with hypoxia (principal); J69.0 Pneumonitis due to inhalation of food and vomit; T17.908A Unspecified foreign body in respiratory tract, part unspecified causing other injury, initial encounter; A41.9 Sepsis, unspecified organism; R65.20 Severe sepsis without septic shock | CPT/HCPCS: 99223 ==

== ENCOUNTER → 2025-07-14 22:36 | Outpatient (BNV) | payer MEDICAID, SELFPAY | PROVIDERS: Admitting Provider Physician Assistant; Emergency Provider Emergency Medicine Emergency Medical Services; PCP Nurse Practitioner Adult Health; Visit Provider Internal Medicine | DX: T17.908A Unspecified foreign body in respiratory tract, part unspecified causing other injury, initial encounter (principal); K92.0 Hematemesis; R19.7 Diarrhea, unspecified; A04.72 Enterocolitis due to Clostridium difficile, not specified as recurrent; N17.9 Acute kidney failure, unspecified; N18.9 Chronic kidney disease, unspecified; A41.9 Sepsis, unspecified organism; R65.20 Severe sepsis without septic shock; G93.41 Metabolic encephalopathy; N39.0 Urinary tract infection, site not specified; B96.29 Other Escherichia coli [E. coli] as the cause of diseases classified elsewhere; Z16.12 Extended spectrum beta lactamase (ESBL) resistance; D72.818 Other decreased white blood cell count | CPT/HCPCS: 99223 ==